=== PATIENT | male | born 1970 | race African-American/Black ===

== ENCOUNTER 2017-11-22 02:33 | Inpatient (IN) ==
--- NOTE | 2017-11-22 02:51 | ED ---
HPI General Chief complaint: Nausea/Vomiting/Diarrhea Stated complaint: Nausea/stomach pain Time Seen by Provider: 11/22/17 02:40 Source: patient Mode of arrival: ambulatory Limitations: no limitations History of Present Illness HPI Narrative: 47-year-old male arrives with abdominal pain nausea vomiting. Symptoms started after he ate dinner tonight. No diarrhea. Generalized constant severe abdominal pain reported. Patient denies fever. No similar prior episodes. At least 10 episodes of vomiting. Patient reports bowel movements about 10 hours earlier. He is uncertain if he has had flatus since. Patient has no history of abdominal obstruction. Patient has no history of cancer or hernia. No history of abdominal surgery. MD complaint: Reports nausea, vomiting and abdominal pain Onset (ago): hour(s) Description of Vomiting: food contents Description of Diarrhea: none Associated Abdominal Pain: Yes Location of pain: Reports diffuse Severity: severe Quality: Reports constant Related Data Home Medications Medication Instructions Recorded Confirmed No Known Home Medications 11/22/17 11/22/17 Allergies Allergy/AdvReac Type Severity Reaction Status Date / Time No Known Allergies Allergy Verified 11/22/17 02:38 Review of Systems ROS: all other systems reviewed are negative [facility] Medical History Medical History Patient denies medical problems (Acute) Surgical History Surgical History No history of previous surgery (Acute) Social History Social History Smoking Status: Never smoker How Often Do You Have a Drink Containing Alcohol: Never Recent Travel in [facility] within the Last 8 Weeks: No Recent Out of Country Travel within the Last 8 Weeks: No Immunization History Tetanus Immunization: Unsure Exam Narrative Exam Narrative: GENERAL: 47-year-old male mild to moderate distress secondary to pain and/or nausea SKIN: Focused skin assessment warm/dry. HEAD: Atraumatic. Normocephalic. EYES: Pupils equal and round. No scleral icterus. No injection or drainage. ENT: No nasal bleeding or discharge. Mucous membranes pink and moist. NECK: Trachea midline. No JVD. CARDIOVASCULAR: Regular rate and rhythm. No murmur appreciated. RESPIRATORY: No accessory muscle use. Clear to auscultation. Breath sounds equal bilaterally. GASTROINTESTINAL: Abdomen is distended with generalized tenderness. MUSCULOSKELETAL: No obvious deformities. No clubbing. No cyanosis. No edema. NEUROLOGICAL: Awake and alert. No obvious cranial nerve deficits. Motor grossly within normal limits. Normal speech. PSYCHIATRIC: Appropriate mood and affect; insight and judgment normal. Course Initial Documented Vital Signs Temperature 98.0 F 11/22/17 02:35 Pulse Rate 65 11/22/17 02:35 Respiratory Rate 20 11/22/17 02:35 Blood Pressure 144/75 H 11/22/17 02:35 Pulse Oximetry 97 11/22/17 02:35 Last Documented Vital Signs Temperature 98.0 F 11/22/17 02:35 Pulse Rate 62 11/22/17 03:06 Respiratory Rate 20 11/22/17 03:06 Blood Pressure 130/77 11/22/17 03:06 Pulse Oximetry 100 11/22/17 03:06 Medical Decision Making MDM Narrative Medical decision making narrative: CT reveals high-grade obstruction with massive gastric distention potentially due to mass at the pancreatic head. NG tube was placed and approximately 1 L of gastric content was collected. Patient at that point reported pain relief. The case was discussed with on- call surgeon Dr. Wellington who recommends admission with a GI consultation and a consultation to him as well. Call placed to the hospitalist service at 4:10 AM. Patient's blood pressure 4:10 AM 170/80 with a pulse of 70. d/w Dr Robles at 4:20AM. Aggregate critical care time was 65 minutes. Time to perform other separately billable procedures was not included in the critical care time. My time did not include minutes spent treating any other patients simultaneously or on activities that did not directly contribute to the patient's treatment. The services I provided to this patient were to treat and/or prevent clinically significant deterioration that could result in: Septic shock, perforation of the stomach or bowel, ischemia I provided critical care services requiring my management, as noted below: Chart data review, documentation time, medication orders and management, vital sign assessments/reviewing monitor data, ordering and reviewing lab tests, ordering and interpreting/reviewing x-rays and diagnostic studies, care of the patient and discussion of the patient with the admitting physicians. Medical Screen Exam Complete: Yes Emergency Medical Condition: Yes Differential Diagnosis Differential Diagnosis: Constipation, Gastritis, Acute Cholecystitis, Biliary Colic, Pancreatitis, AKERS, Hepatitis, Bowel Obstruction, Cystitis, Mesenteric Ischemia, AAA, Appendicitis, Renal Stone/Hydronephrosis, GERD, perforated viscous Medical Records Constipation, Gastritis, Acute Cholecystitis, Biliary Colic, Pancreatitis, AKERS , Hepatitis, Bowel Obstruction, Cystitis, Mesenteric Ischemia, AAA, Appendicitis , Renal Stone/Hydronephrosis, GERD, perforated viscous Lab Data Lab results reviewed: Yes I reviewed the patient's lab results. Result diagrams: 11/22/17 03:03 11/22/17 03:03 Lab Results 11/22/17 11/22/17 11/22/17 Range/Units 03:03 03:03 03:03 WBC 12.1 H (4.0-11.0) th/mm3 RBC 5.16 (4.50-5.90) mil/mm3 Hgb 15.7 (13.0-17.0) gm/dL Hct 48.1 (39.0-51.0) % MCV 93.2 (80.0-100.0) fL MCH 30.4 (27.0-34.0) pg MCHC 32.6 (32.0-36.0) % RDW 14.3 (11.6-17.2) % Plt Count 181 (150-450) th/mm3 MPV 9.2 (7.0-11.0) fL Neut % (Auto) 92.0 H (16.0-70.0) % Lymph % (Auto) 3.5 L (9.0-44.0) % Sevier % (Auto) 4.3 (0.0-8.0) % Eos % (Auto) 0.0 (0.0-4.0) % Baso % (Auto) 0.2 (0.0-2.0) % Neut # (Auto) 11.1 H (1.8-7.7) th/mm3 Lymph # (Auto) 0.4 L (1.0-4.8) th/mm3 Sevier # (Auto) 0.5 (0.0-0.9) th/mm3 Eos # (Auto) 0.0 (0.0-0.4) th/mm3 Baso # (Auto) 0.0 (0.0-0.2) th/mm3 WBC Differential . Differential Comment Auto diff final Sodium 141 (136-145) meq/L Potassium 3.7 (3.5-5.1) meq/L Chloride 103 (98-107) meq/L Carbon Dioxide 23.4 (21.0-32.0) meq/L Anion Gap 15 (5-15) meq/L BUN 19 H (7-18) mg/dL Creatinine 1.61 H (0.60-1.30) mg/dL Random Glucose 216 H (74-106) mg/dL Lactic Acid 5.7 H* (0.4-2.0) mmol/L Calcium 10.0 (8.5-10.1) mg/dL Total Bilirubin 2.8 H (0.2-1.0) mg/dL AST 22 (15-37) U/L ALT 34 (12-78) U/L Alkaline Phosphatase 63 (45-117) U/L Total Protein 8.8 H (6.4-8.2) g/dL Albumin 5.4 H (3.4-5.0) g/dL Lipase 3687 H (73-393) U/L Blood Type Blood Type Recheck Antibody Screen 11/22/17 Range/Units 03:51 WBC (4.0-11.0) th/mm3 RBC (4.50-5.90) mil/mm3 Hgb (13.0-17.0) gm/dL Hct (39.0-51.0) % MCV (80.0-100.0) fL MCH (27.0-34.0) pg MCHC (32.0-36.0) % RDW (11.6-17.2) % Plt Count (150-450) th/mm3 MPV (7.0-11.0) fL Neut % (Auto) (16.0-70.0) % Lymph % (Auto) (9.0-44.0) % Sevier % (Auto) (0.0-8.0) % Eos % (Auto) (0.0-4.0) % Baso % (Auto) (0.0-2.0) % Neut # (Auto) (1.8-7.7) th/mm3 Lymph # (Auto) (1.0-4.8) th/mm3 Sevier # (Auto) (0.0-0.9) th/mm3 Eos # (Auto) (0.0-0.4) th/mm3 Baso # (Auto) (0.0-0.2) th/mm3 WBC Differential Differential Comment Sodium (136-145) meq/L Potassium (3.5-5.1) meq/L Chloride (98-107) meq/L Carbon Dioxide (21.0-32.0) meq/L Anion Gap (5-15) meq/L BUN (7-18) mg/dL Creatinine (0.60-1.30) mg/dL Random Glucose (74-106) mg/dL Lactic Acid (0.4-2.0) mmol/L Calcium (8.5-10.1) mg/dL Total Bilirubin (0.2-1.0) mg/dL AST (15-37) U/L ALT (12-78) U/L Alkaline Phosphatase (45-117) U/L Total Protein (6.4-8.2) g/dL Albumin (3.4-5.0) g/dL Lipase (73-393) U/L Blood Type A Positive Blood Type Recheck Antibody Screen Negative Lactic acid 5.7 The lipase is 3687 Total bilirubin is 2.8 Imaging Data Attestation: I personally reviewed and interpreted this imaging study as follows : (Massive volume of fluid inside the stomach) Radiologist's impression: Abdomen/Pelvis CT 11/22/17 02:53 CONCLUSION: 1. High-grade obstruction at the level of the third portion of the duodenum with massive gastric distention. There is equivocal mass in the pancreatic head. Endoscopy is recommended to evaluate the stricture. Chest X-Ray 11/22/17 02:53 CONCLUSION: No acute cardiopulmonary disease. Discharge Plan Discharge Disposition Patient Disposition: 30 Still Patient Physicians Team ED Provider: Boni Bucio Primary Care Provider: Primary Care Nicole Hsieh Attending Provider: Sandra Robles Status ED Status: Admitted Patient
[2017-11-22] MEDS ORDERED: Aluminum/Magnesium/Simethacone Susp 30 ML UDC PO ONE (02:53)
[2017-11-22] MEDS ORDERED: Sod Chloride 0.9% Inj 1,000 ML IV.SIG ONE (02:53)
[2017-11-22] MEDS ORDERED: HYDROmorphone PF Inj 2 MG/ML Vial IV.PUSH ONE (02:53)
[2017-11-22 03:11] LABS: Baso % (Auto) 0.2 % (0.0-2.0); Hematocrit 48.1 % (39.0-51.0); Hemoglobin 15.7 gm/dL (13.0-17.0); Lymph # (Auto) 0.4 th/mm3 (1.0-4.8); Lymph % (Auto) 3.5 % (9.0-44.0); Mean Corpuscular HGB Conc 32.6 % (32.0-36.0); Mean Corpuscular Hemoglobin 30.4 pg (27.0-34.0); Mean Corpuscular Volume 93.2 fL (80.0-100.0); Mean Platelet Volume 9.2 fL (7.0-11.0); Mono # (Auto) 0.5 th/mm3 (0.0-0.9); Mono % (Auto) 4.3 % (0.0-8.0); Neut # (Auto) 11.1 th/mm3 (1.8-7.7); Platelet Count 181 th/mm3 (150-450); Red Blood Count 5.16 mil/mm3 (4.50-5.90); Red Cell Distribution Width 14.3 % (11.6-17.2); White Blood Count 12.1 th/mm3 (4.0-11.0)
[2017-11-22 03:34] LABS: Alanine Aminotransferase 34 U/L (12-78); Albumin 5.4 g/dL (3.4-5.0); Anion Gap 15 meq/L (5-15); Aspartate Aminotransferase 22 U/L (15-37); Blood Urea Nitrogen 19 mg/dL (7-18); Carbon Dioxide 23.4 meq/L (21.0-32.0); Chloride 103 meq/L (98-107); Glucose,Random 216 mg/dL (74-106); Potassium 3.7 meq/L (3.5-5.1); Sodium 141 meq/L (136-145)
[2017-11-22 03:36] LABS: Alkaline Phosphatase 63 U/L (45-117); Lipase 3687 U/L (73-393); Total Protein 8.8 g/dL (6.4-8.2)
--- NOTE | 2017-11-22 03:53 | CT ---
EXAM DATE: 11/22/2017 2:58 AM EDT AGE/SEX: 47 years / Male INDICATIONS: Diffuse abdominal pain and vomiting. CLINICAL DATA: This is the patient's initial encounter. Patient reports that signs and symptoms have been present for 2 days and indicates a pain score of 10/10. MEDICAL/SURGICAL HISTORY: None. None. ORAL CONTRAST: No oral contrast ingested. RADIATION DOSE: 7.31 CTDI (mGy) COMPARISON: No prior exams available for comparison. TECHNIQUE: Multiple contiguous axial images were obtained through the abdomen and pelvis following b olus infusion of 95 ml Omnipaque 350 (iohexol) nonionic water-soluble contrast as a single exam dos e. No oral contrast ingested. Using automated exposure control and adjustment of the mA and/or kV ac cording to patient size, radiation dose was kept as low as reasonably achievable to obtain optimal di agnostic quality images. DICOM format image data is available electronically for review and comparis on. FINDINGS: Examination of the lung bases demonstrates no abnormality. No pleural fluid is identified. No pulmona ry nodules are present. The liver and spleen are normal in size and no focal defects are identified. There is severe gastric distention to the level of the third portion of the duodenum where there is decompressed distal duodenum and small bowel. There is a possible mass in the pancreas as etiology. B enign or malignant stricture would be considered and endoscopy is recommended to further evaluate thi s. The adrenal glands and kidneys appear normal bilaterally. No hydronephrosis or mass lesions are id entified. Examination of the pelvis demonstrates no evidence of free fluid or pelvic mass. No abnormally enlarg ed inguinal or retroperitoneal lymph nodes are present. The bladder is unremarkable. CONCLUSION: 1. High-grade obstruction at the level of the third portion of the duodenum with massive gastric dis tention. There is equivocal mass in the pancreatic head. Endoscopy is recommended to evaluate the str icture. Electronically signed by: Nick Nettles MD 11/22/2017 3:52 AM EDT
[2017-11-22] MEDS ORDERED: Sod Chloride 0.9% Inj 1,000 ML IV.SIG SCH (04:15)
--- NOTE | 2017-11-22 04:18 | XR ---
EXAM DATE: 11/22/2017 2:53 AM EDT AGE/SEX: 47 years / Male INDICATIONS: Chest discomfort, nausea, vomiting for 2 hours CLINICAL DATA: This is the patient's initial encounter. Patient reports that signs and symptoms have been present for 1 day and indicates a pain score of 0/10. MEDICAL/SURGICAL HISTORY: None. None. COMPARISON: No prior exams available for comparison. FINDINGS: A single AP view of the chest demonstrates the lungs to be symmetrically aerated without evidence of mass, infiltrate or effusion. The cardiomediastinal contours are unremarkable. Osseous structures a re intact. CONCLUSION: No acute cardiopulmonary disease. Electronically signed by: Nick Nettles MD 11/22/2017 4:17 AM EDT
[2017-11-22] MEDS ORDERED: Morphine Inj 4 MG/ML Vial IV.PUSH PRN (04:31)
[2017-11-22] MEDS ORDERED: Sodium Chloride 0.9% 2 ML Flush PRN IV.FLUSH (04:48)
[2017-11-22] MEDS: Sod Chloride 0.9% Inj 1,000 ML IV.CONT SCH ×2 (05:45→15:55)
--- NOTE | 2017-11-22 06:48 | P.CONGS ---
[facility] Gen Surgery Consult Note Consult date: 11/22/17 Reason for consult: abdominal pain (Severe gastric distention, pancreatitis) Narrative: Patient is a 47-year-old -[place] gentleman who apparently is healthy has no chronic medical problems as had no prior surgeries takes no medications has never smoked or drank or use drugs. He went to [employer]. He had salad, breadsticks, and pasta and went home and developed severe abdominal distention pain nausea and emesis. Went to the emergency department where CT scan of the abdomen pelvis demonstrates severe gastric distention with apparent obstruction or narrowing of the duodenum the transition between the third and fourth portion of the duodenum. Laboratory values demonstrate mildly elevated white count with a left shift, elevated lipase over 3600, and an elevated lactic acid. He additionally exhibited signs of dehydration with an elevated BUN and creatinine. Patient had an NG tube placed in the ER had over a liter of yellow fluid removed but then the patient was uncomfortable and asked that the NG tube be removed. He has since continued to have intermittent nausea with emesis of food that he had eaten last night. He has had normal bowel function. He is voided twice since this is started. He denies chronic recent easy fatigue, fevers chills, weight loss unexplained. 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 He is accompanied by his mother at the bedside who says he is a very straight laced and who avoids trouble. He is now willing to have an NG tube replaced. Review of Systems All other systems reviewed negative except as stated in [facility] PMF[facility] - History History Provided By: Patient - Medical / Surgical Hx Neg / Unobtainable Medical Problems Denied: Yes Surgical History: No Previous Surgery - Medical History Medical History: Medical History (Last Updated 11/22/17 @ 02:37 by Rosario Andino) Patient denies medical problems - Surgical History Surgical History: Surgical History (Last Updated 11/22/17 @ 02:37 by Rosario Andino) No history of previous surgery - Social History I have reviewed the patient's Social History: Yes - Tobacco History Second Hand Smoke Exposure: No Tobacco Use In Past 30 Days: No Smoking Status: Never smoker - Alcohol History How Often Do You Have a Drink Containing Alcohol: Never - Substance Use History Substance History: No History of Abuse - Travel History Recent Travel in the [facility] Within the Last 8 Weeks: No Recent Travel Out of the Country Within the Last 8 Weeks: No - Immunization History Tetanus Immunization: Never Vaccinated Hx Influenza Vaccine This Season: No Medications and Allergies Active Medications: Active Medications Sodium Chloride (Ns Inj) 1,000 mls @ 0 mls/hr IV.SIG BOLUS COLE Last Infusion: 11/22/17 05:15 Dose: Infused Sodium Chloride (Ns Inj) 1,000 mls @ 100 mls/hr IV.CONT .Q10H COLE Last Admin: 11/22/17 05:45 Dose: 100 mls/hr Morphine Sulfate (Morphine Inj) 4 mg IV.PUSH Q4H PRN PRN Reason: pain 6-10 Ondansetron HCl (Zofran Inj) 4 mg IV.PUSH Q6H PRN PRN Reason: NAUSEA OR VOMITING Sodium Chloride (Ns Flush) 2 ml IV.FLUSH BID COLE Sodium Chloride (Ns Flush) 2 ml IV.FLUSH PRN PRN PRN Reason: FLUSH AFTER USING IV ACCESS Allergies Allergy/AdvReac Type Severity Reaction Status Date / Time No Known Allergies Allergy Verified 11/22/17 02:38 Home Medications Medication Instructions Recorded Confirmed Type No Known Home Medications 11/22/17 11/22/17 History Exam Vital signs: Vital Signs 11/22/17 02:35 11/22/17 03:06 11/22/17 03:33 Temperature 98.0 F Pulse Rate 65 62 Respiratory Rate 20 20 16 Blood Pressure 144/75 H 130/77 Pulse Oximetry 97 100 11/22/17 06:23 11/22/17 06:27 Temperature 97.3 F L Pulse Rate 56 L 56 L Respiratory Rate 18 Blood Pressure 144/91 H Pulse Oximetry 100 Intake & Output 11/21/17 11/21/17 11/22/17 06:59 18:59 06:59 Intake Total 1999 Output Total 700 / 700 Balance 1300 / 1300 Weight 77.5 kg Intake: IV 1999 NS Inj 1,000 ML @ Wide Open IV. 1999 SIG BOLUS COLE Rx#:[id number] Output: Gastric Drainage 700 / 700 Right Nare Nasogastric Tube 700 / 700 Other: Weight On Admission 84.224 kg Narrative: Patient awake alert oriented and cooperative. He appears mildly uncomfortable due to abdominal distention and nausea. His mother it is his bedside. HEENT demonstrates a normocephalic atraumatic head. His pupils are 2 round and sluggishly reactive to light. His sclera are anicteric. His oropharynx is clear without mucosal lesions. He has good dentition. His neck is supple without adenopathy. He has no jugular venous distention. He has no carotid bruits. His trachea is midline. There is no palpable thyromegaly. His lung sounds are clear to auscultation. His heart sounds are regular without obvious murmur rub or gallop. His abdomen is firm and distended. It is mildly tender. There is no rebound or guarding. There are no scars or obvious hernias. It is quiet. His extremities are thin he has equal radial and dorsalis pedis pulses. There is no cyanosis clubbing or edema. Genital rectal exams were not repeated. Psychologically he is appropriate. He is not depressed. He is not anxious. Results - Labs 11/22/17 03:03 11/22/17 03:03 Laboratory Results - last 24 hr 11/22/17 11/22/17 11/22/17 03:03 03:03 03:03 WBC 12.1 H RBC 5.16 Hgb 15.7 Hct 48.1 MCV 93.2 MCH 30.4 MCHC 32.6 RDW 14.3 Plt Count 181 MPV 9.2 Neut % (Auto) 92.0 H Lymph % (Auto) 3.5 L Long % (Auto) 4.3 Eos % (Auto) 0.0 Baso % (Auto) 0.2 Neut # (Auto) 11.1 H Lymph # (Auto) 0.4 L Long # (Auto) 0.5 Eos # (Auto) 0.0 Baso # (Auto) 0.0 WBC Differential . Differential Comment Auto diff final Sodium 141 Potassium 3.7 Chloride 103 Carbon Dioxide 23.4 Anion Gap 15 BUN 19 H Creatinine 1.61 H Random Glucose 216 H Lactic Acid 5.7 H* Calcium 10.0 Total Bilirubin 2.8 H AST 22 ALT 34 Alkaline Phosphatase 63 Total Protein 8.8 H Albumin 5.4 H Lipase 3687 H CA 19-9 Antigen Blood Type Blood Type Recheck Antibody Screen 11/22/17 11/22/17 11/22/17 03:51 05:02 05:02 WBC RBC Hgb Hct MCV MCH MCHC RDW Plt Count MPV Neut % (Auto) Lymph % (Auto) Long % (Auto) Eos % (Auto) Baso % (Auto) Neut # (Auto) Lymph # (Auto) Long # (Auto) Eos # (Auto) Baso # (Auto) WBC Differential Differential Comment Sodium Potassium Chloride Carbon Dioxide Anion Gap BUN Creatinine Random Glucose Lactic Acid 4.0 H Calcium Total Bilirubin AST ALT Alkaline Phosphatase Total Protein Albumin Lipase CA 19-9 Antigen 5.0 Blood Type A Positive Blood Type Recheck Antibody Screen Negative - Imaging Imaging: ITS Impressions Abdomen/Pelvis CT 11/22/17 02:53 CONCLUSION: 1. High-grade obstruction at the level of the third portion of the duodenum with massive gastric distention. There is equivocal mass in the pancreatic head. Endoscopy is recommended to evaluate the stricture. Chest X-Ray 11/22/17 02:53 CONCLUSION: No acute cardiopulmonary disease. Assessment and Plan - Plan Assessment is a 47-year-old -[place] gentleman with no chronic medical problems, no prior abdominal surgery with acute onset severe abdominal distention nausea and vomiting following overeating at the [employer]. CT demonstrates massive gastric distention with apparent narrowing in the transition between the third and fourth portion of the duodenum. Etiology is unclear at this time. There is some question whether there is pancreatic mass or inflammation and and fact laboratory values demonstrated an elevated lipase consistent with pancreatitis. He again is not an alcoholic, he has no known history of gallbladder disease. recommendations been made for placement of the nasogastric tube to low intermittent wall suction to help decrease the gastric distention. Gastroenterology has been consulted to evaluate the patient and consider upper endoscopy. At some point the patient may benefit from ultrasound of the gallbladder to evaluate for gallstones. Pancreatitis with focal relative functional obstruction, SMA syndrome, gallstone pancreatitis, primary tumorous obstruction all are in the differential diagnosis. The patient would not benefit at this time for from acute general surgical intervention. In the interim continue hydration and treatment of symptoms is indicated. Discussed Condition With: Patient and mother and bedside RN
[2017-11-22] MEDS ORDERED: Benzocaine 20% Oral Spray 60 ML Can OROPHARYNG ONE ×2 (10:00→11:00)
--- NOTE | 2017-11-22 10:15 | P.CONGI ---
History of Present Illness Consult date: 11/22/17 Consult reason: Pancreatic/duodenal mass Chief complaint: SBO; Pancreatitis History of Present Illness: Mr. Marshall is a 47-year-old male patient who presented to the emergency room this morning with complaint of severe generalized abdominal pain which he describes as cramping. associated with nausea and emesis. Patient states he has no medical history, no surgical history, and no known drug allergies. Our service has been consulted to evaluate possible pancreatic/duodenal mass. Patient states onset of symptoms started last night after he ate a large meal at the [employer]. Patient denies ever having pain like this before and states he had at least 10-15 episodes of vomiting. Patient denies fever, diarrhea, constipation. States pain is constant and there are no alleviating or aggravating factors.He reports having a soft brown BM of "normal " quantity 2 days ago and none since noted. States he normally has 1-2 soft brown bowel movements daily. Patient unsure if he has had been able to pass gas over the last 24 hours. Reports he was feeling well without any symptoms of abdominal pain nausea or vomiting prior to today. Patient has no history of abdominal obstruction or abdominal surgical procedures. Patient denies any blood in emesis or noted bleeding in stool. Denies ever having had EGD or colonoscopy in the past. Denies any use of NSAIDs or blood thinners. Denies any known family history for any gastrointestinal disorders. Denies use of tobacco or alcohol. Upon arrival to emergency room patient had NG placed with documented drainage of over a liter of yellow fluid. Patient asked for NG to be removed due to discomfort but is now willing to have same replaced. <Karen Oliveira - Last Filed: 11/22/17 11:02> Review of Systems All other systems reviewed negative except as stated in HPI <Karen Oliveira - Last Filed: 11/22/17 11:02> PMFSH - History History Provided By: Patient - Medical / Surgical Hx Neg / Unobtainable Medical Problems Denied: Yes - Medical History Medical History: Medical History (Last Updated 11/22/17 @ 02:37 by Rosario Andino) Patient denies medical problems - Surgical History Surgical History: Surgical History (Last Updated 11/22/17 @ 02:37 by Rosario Andino) No history of previous surgery - Tobacco History Second Hand Smoke Exposure: No Tobacco Use In Past 30 Days: No Smoking Status: Never smoker - Alcohol History How Often Do You Have a Drink Containing Alcohol: Never - Substance Use History Substance History: No History of Abuse - Travel History Recent Travel in the [place] Within the Last 8 Weeks: No Recent Travel Out of the Country Within the Last 8 Weeks: No - Immunization History Tetanus Immunization: Never Vaccinated Hx Influenza Vaccine This Season: No <Karen Oliveira - Last Filed: 11/22/17 11:02> - Medical History Medical History: Medical History (Last Updated 11/22/17 @ 02:37 by Rosario Andino) Patient denies medical problems - Surgical History Surgical History: Surgical History (Last Updated 11/22/17 @ 02:37 by Rosario Andino) No history of previous surgery <Maddi King - Last Filed: 11/22/17 14:51> Medications and Allergies Active Medications: Active Medications Benzocaine (Hurricaine 20% Oral Freedom) 1 spray OROPHARYNG ONCE ONE Stop: 11/22/17 10:01 Sodium Chloride (Ns Inj) 1,000 mls @ 100 mls/hr IV.CONT .Q10H [facility] Last Admin: 11/22/17 05:45 Dose: 100 mls/hr Morphine Sulfate (Morphine Inj) 4 mg IV.PUSH Q4H PRN PRN Reason: pain 6-10 Ondansetron HCl (Zofran Inj) 4 mg IV.PUSH Q6H PRN PRN Reason: NAUSEA OR VOMITING Sodium Chloride (Ns Flush) 2 ml IV.FLUSH BID COLE Sodium Chloride (Ns Flush) 2 ml IV.FLUSH PRN PRN PRN Reason: FLUSH AFTER USING IV ACCESS <Karen Oliveira - Last Filed: 11/22/17 11:02> Active Medications: Active Medications Sodium Chloride (Ns Inj) 1,000 mls @ 100 mls/hr IV.CONT .Q10H [facility] Last Admin: 11/22/17 05:45 Dose: 100 mls/hr Morphine Sulfate (Morphine Inj) 4 mg IV.PUSH Q4H PRN PRN Reason: pain 6-10 Ondansetron HCl (Zofran Inj) 4 mg IV.PUSH Q6H PRN PRN Reason: NAUSEA OR VOMITING Sodium Chloride (Ns Flush) 2 ml IV.FLUSH BID COLE Sodium Chloride (Ns Flush) 2 ml IV.FLUSH PRN PRN PRN Reason: FLUSH AFTER USING IV ACCESS <Maddi King - Last Filed: 11/22/17 14:51> Allergies Allergy/AdvReac Type Severity Reaction Status Date / Time No Known Allergies Allergy Verified 11/22/17 02:38 Home Medications Medication Instructions Recorded Confirmed Type No Known Home Medications 11/22/17 11/22/17 History Exam Vital signs: Vital Signs 11/22/17 02:35 11/22/17 03:06 11/22/17 03:33 Temperature 98.0 F Pulse Rate 65 62 Respiratory Rate 20 20 16 Blood Pressure 144/75 H 130/77 Pulse Oximetry 97 100 11/22/17 06:23 11/22/17 06:27 11/22/17 08:00 Temperature 97.3 F L Pulse Rate 56 L 56 L 62 Respiratory Rate 18 Blood Pressure 144/91 H 133/80 Pulse Oximetry 100 99 Intake & Output 11/21/17 11/22/17 11/22/17 18:59 06:59 18:59 Intake Total 1999 Output Total 700 / 700 Balance 1300 / 1300 Weight 77.5 kg Intake: IV 1999 NS Inj 1,000 ML @ Wide Open IV. 1999 SIG BOLUS [facility] Rx#:[id number] Output: Gastric Drainage 700 / 700 Right Nare Nasogastric Tube 700 / 700 Other: Weight On Admission 84.224 kg - Constitutional moderate distress - Routine HEENT Exam Head: Present: normocephalic - Routine Respiratory Exam Present: CTA bilaterally. Absent: accessory muscle use - Routine Cardiovascular Exam Present: RRR - Routine Abdominal Exam Present: distended, firm, rigid - Routine Extremities Exam Present: full ROM. Absent: edema - Routine Skin Exam Present: dry, warm. Absent: jaundice - Routine Neurological Exam Present: alert, oriented X3 <Oliveira,Karen - Last Filed: 11/22/17 11:02> Vital signs: Vital Signs 11/22/17 02:35 11/22/17 03:06 11/22/17 03:33 Temperature 98.0 F Pulse Rate 65 62 Respiratory Rate 20 20 16 Blood Pressure 144/75 H 130/77 Pulse Oximetry 97 100 11/22/17 06:23 11/22/17 06:27 11/22/17 08:00 Temperature 97.3 F L Pulse Rate 56 L 56 L 62 Respiratory Rate 18 Blood Pressure 144/91 H 133/80 Pulse Oximetry 100 99 11/22/17 10:00 11/22/17 12:00 Temperature 97.5 F L Pulse Rate 74 65 Respiratory Rate 18 Blood Pressure 137/77 Pulse Oximetry 100 Intake & Output 11/21/17 11/22/17 11/22/17 18:59 06:59 18:59 Intake Total 1999 Output Total 700 / 700 Balance 1300 / 1300 Weight 77.5 kg Intake: IV 1999 NS Inj 1,000 ML @ Wide Open IV. 1999 SIG BOLUS [facility] Rx#:[id number] Output: Gastric Drainage 700 / 700 Right Nare Nasogastric Tube 700 / 700 Other: Weight On Admission 84.224 kg <Maddi King - Last Filed: 11/22/17 14:51> Results - Labs CBC & Chem 7: 11/22/17 03:03 11/22/17 03:03 Labs: Laboratory Results - last 24 hr 11/22/17 11/22/17 11/22/17 03:03 03:03 03:03 WBC 12.1 H RBC 5.16 Hgb 15.7 Hct 48.1 MCV 93.2 MCH 30.4 MCHC 32.6 RDW 14.3 Plt Count 181 MPV 9.2 Neut % (Auto) 92.0 H Lymph % (Auto) 3.5 L [place] % (Auto) 4.3 Eos % (Auto) 0.0 Baso % (Auto) 0.2 Neut # (Auto) 11.1 H Lymph # (Auto) 0.4 L [place] # (Auto) 0.5 Eos # (Auto) 0.0 Baso # (Auto) 0.0 WBC Differential . Differential Comment Auto diff final Sodium 141 Potassium 3.7 Chloride 103 Carbon Dioxide 23.4 Anion Gap 15 BUN 19 H Creatinine 1.61 H Random Glucose 216 H Lactic Acid 5.7 H* Calcium 10.0 Total Bilirubin 2.8 H AST 22 ALT 34 Alkaline Phosphatase 63 Total Protein 8.8 H Albumin 5.4 H Lipase 3687 H CA 19-9 Antigen Blood Type Blood Type Recheck Antibody Screen 11/22/17 11/22/17 11/22/17 03:51 05:02 05:02 WBC RBC Hgb Hct MCV MCH MCHC RDW Plt Count MPV Neut % (Auto) Lymph % (Auto) [place] % (Auto) Eos % (Auto) Baso % (Auto) Neut # (Auto) Lymph # (Auto) [place] # (Auto) Eos # (Auto) Baso # (Auto) WBC Differential Differential Comment Sodium Potassium Chloride Carbon Dioxide Anion Gap BUN Creatinine Random Glucose Lactic Acid 4.0 H Calcium Total Bilirubin AST ALT Alkaline Phosphatase Total Protein Albumin Lipase CA 19-9 Antigen 5.0 Blood Type A Positive Blood Type Recheck Antibody Screen Negative 11/22/17 09:00 WBC RBC Hgb Hct MCV MCH MCHC RDW Plt Count MPV Neut % (Auto) Lymph % (Auto) [place] % (Auto) Eos % (Auto) Baso % (Auto) Neut # (Auto) Lymph # (Auto) [place] # (Auto) Eos # (Auto) Baso # (Auto) WBC Differential Differential Comment Sodium Potassium Chloride Carbon Dioxide Anion Gap BUN Creatinine Random Glucose Lactic Acid 4.6 H* Calcium Total Bilirubin AST ALT Alkaline Phosphatase Total Protein Albumin Lipase CA 19-9 Antigen Blood Type Blood Type Recheck Antibody Screen - Imaging Impressions Abdomen/Pelvis CT 11/22/17 02:53 CONCLUSION: 1. High-grade obstruction at the level of the third portion of the duodenum with massive gastric distention. There is equivocal mass in the pancreatic head. Endoscopy is recommended to evaluate the stricture. Chest X-Ray 11/22/17 02:53 CONCLUSION: No acute cardiopulmonary disease. <Karen Oliveira - Last Filed: 11/22/17 11:02> - Labs CBC & Chem 7: 11/22/17 03:03 11/22/17 03:03 Labs: Laboratory Results - last 24 hr 11/22/17 11/22/17 11/22/17 03:03 03:03 03:03 WBC 12.1 H RBC 5.16 Hgb 15.7 Hct 48.1 MCV 93.2 MCH 30.4 MCHC 32.6 RDW 14.3 Plt Count 181 MPV 9.2 Neut % (Auto) 92.0 H Lymph % (Auto) 3.5 L [place] % (Auto) 4.3 Eos % (Auto) 0.0 Baso % (Auto) 0.2 Neut # (Auto) 11.1 H Lymph # (Auto) 0.4 L [place] # (Auto) 0.5 Eos # (Auto) 0.0 Baso # (Auto) 0.0 WBC Differential . Differential Comment Auto diff final Sodium 141 Potassium 3.7 Chloride 103 Carbon Dioxide 23.4 Anion Gap 15 BUN 19 H Creatinine 1.61 H Random Glucose 216 H Lactic Acid 5.7 H* Calcium 10.0 Total Bilirubin 2.8 H AST 22 ALT 34 Alkaline Phosphatase 63 Total Protein 8.8 H Albumin 5.4 H Triglycerides Cholesterol LDL Cholesterol, Calc HDL Cholesterol Cholesterol/HDL Ratio Lipase 3687 H CA 19-9 Antigen Blood Type Blood Type Recheck Antibody Screen 11/22/17 11/22/17 11/22/17 03:03 03:51 05:02 WBC RBC Hgb Hct MCV MCH MCHC RDW Plt Count MPV Neut % (Auto) Lymph % (Auto) Rose[place] % (Auto) Eos % (Auto) Baso % (Auto) Neut # (Auto) Lymph # (Auto) [place] # (Auto) Eos # (Auto) Baso # (Auto) WBC Differential Differential Comment Sodium Potassium Chloride Carbon Dioxide Anion Gap BUN Creatinine Random Glucose Lactic Acid Calcium Total Bilirubin AST ALT Alkaline Phosphatase Total Protein Albumin Triglycerides 46 Cholesterol 210 H LDL Cholesterol, Calc 97 HDL Cholesterol 103.9 H Cholesterol/HDL Ratio 2.02 Lipase CA 19-9 Antigen 5.0 Blood Type A Positive Blood Type Recheck Antibody Screen Negative 11/22/17 11/22/17 05:02 09:00 WBC RBC Hgb Hct MCV MCH MCHC RDW Plt Count MPV Neut % (Auto) Lymph % (Auto) Rose[place] % (Auto) Eos % (Auto) Baso % (Auto) Neut # (Auto) Lymph # (Auto) [place] # (Auto) Eos # (Auto) Baso # (Auto) WBC Differential Differential Comment Sodium Potassium Chloride Carbon Dioxide Anion Gap BUN Creatinine Random Glucose Lactic Acid 4.0 H 4.6 H* Calcium Total Bilirubin AST ALT Alkaline Phosphatase Total Protein Albumin Triglycerides Cholesterol LDL Cholesterol, Calc HDL Cholesterol Cholesterol/HDL Ratio Lipase CA 19-9 Antigen Blood Type Blood Type Recheck Antibody Screen - Imaging Impressions Abdomen/Pelvis CT 11/22/17 02:53 CONCLUSION: 1. High-grade obstruction at the level of the third portion of the duodenum with massive gastric distention. There is equivocal mass in the pancreatic head. Endoscopy is recommended to evaluate the stricture. Chest X-Ray 11/22/17 02:53 CONCLUSION: No acute cardiopulmonary disease. <Maddi King - Last Filed: 11/22/17 14:51> Assessment and Plan (1) Bowel obstruction Status: Acute Code(s): K56.609 - Unspecified intestinal obstruction, unspecified as to partial versus complete obstruction - Plan Mr. Marshall is a 47-year-old male patient who presented to the emergency room this morning with complaint of severe generalized abdominal pain which he describes as cramping. associated with nausea and emesis. Patient states he has no medical history, no surgical history, and no known drug allergies. Our service has been consulted to evaluate possible pancreatic/duodenal mass. Patient states onset of symptoms started last night after he ate a large meal at the [employer]. Patient denies ever having pain like this before and states he had at least 10-15 episodes of vomiting. Patient denies fever, diarrhea, constipation. States pain is constant and there are no alleviating or aggravating factors.He reports having a soft brown BM of "normal " quantity 2 days ago and none since noted. States he normally has 1-2 soft brown bowel movements daily. Patient unsure if he has had been able to pass gas over the last 24 hours. Reports he was feeling well without any symptoms of abdominal pain nausea or vomiting prior to today. Patient has no history of abdominal obstruction or abdominal surgical procedures. Patient denies any blood in emesis or noted bleeding in stool. Denies ever having had EGD or colonoscopy in the past. Denies any use of NSAIDs or blood thinners. Denies any known family history for any gastrointestinal disorders. Denies use of tobacco or alcohol. Upon arrival to emergency room patient had NG placed with documented drainage of over a liter of yellow fluid. Patient asked for NG to be removed due to discomfort but is now willing to have same replaced. Pancreatic/duodenal mass/obstruction CT abdomen and pelvis done on admission revealed the following findings : Examination of the lung bases demonstrates no abnormality. No pleural fluid is identified. No pulmonary nodules are present. The liver and spleen are normal in size and no focal defects are identified. There is severe gastric distention to the level of the third portion of the duodenum where there is decompressed distal duodenum and small bowel. There is a possible mass in the pancreas as etiology. Benign or malignant stricture would be considered and endoscopy is recommended to further evaluate this. The adrenal glands and kidneys appear normal bilaterally. No hydronephrosis or mass lesions are identified. Examination of the pelvis demonstrates no evidence of free fluid or pelvic mass. No abnormally enlarged inguinal or retroperitoneal lymph nodes are present. The bladder is unremarkable. High-grade obstruction at the level of the third portion of the duodenum with massive gastric distention. There is equivocal mass in the pancreatic head. Endoscopy is recommended to evaluate the stricture. WBC count 12.1 hemoglobin 15.7 hematocrit 48.1 total bilirubin 2.8 AST 22 ALT 34 alk phos 63 lipase 3687 CA 199 antigen 5.0. 11/22/2017-NG tube placed, immediate return of estimated 700-800 cc of bile colored drainage. Patient reporting much less abdominal discomfort. Plan -N.p.o. -NG tube to low intermittent wall suction -May consider endoscopy -Antiemetics and analgesics as per attending -Supportive care -Further recommendations to follow based on patient status and findings This patient has been seen by myself and by 2 and this note is written on her behalf - Attending Attestation <Karen Oliveira - Last Filed: 11/22/17 11:02> (1) Bowel obstruction Status: Acute Code(s): K56.609 - Unspecified intestinal obstruction, unspecified as to partial versus complete obstruction - Attending Attestation seen,examined agree with above egd in am -need empty stomach for good exam poor historian mother at bedside trying to take him home to settle some family dispute advised both of them that he cannot go home for now <Maddi King - Last Filed: 11/22/17 14:51>
--- NOTE | 2017-11-22 11:12 | P.HPIM ---
History of Present Illness Service: [facility] Primary Care Physician: No Primary Care Physician Chief Complaint: Abdominal pain History of Present Illness: 47 Y/O male with no medical history who presented to the emergency room with complaint of generalized abdominal pain, nausea and vomiting. Patient reports he was in his normal state of health until yesterday when he started to experience severe, cramping abdominal pain. He thought this was related to overeating at [email or web address]. Workup in the emergency room revealed elevated lipase, high grade obstruction at the duodenum and severe gastric distention. There is also reports of an equivocal mass in the pancreatic head. NGT was placed. On my evaluation, the patient continues to have high output from NGT draining yellow fluid. He remains uncomfortable with a lot of pain. He reports he had a normal bowel movement 2 days ago. Inpatient Certification: I certify that the inpatient services were ordered in accordance with Medicare regulations governing the order. This includes certification that hospital inpatient services are reasonable and necessary and in the case of services not specified as inpatient-only under 42 CFR 419.22(n), that they are appropriately provided as inpatient services in accordance to with the 2-midnight benchmark under 43 CFR 412.3(e) Estimated Total Length of Stay (Days): 2 Plans for Post Hospital Care: Not yet determined Review of Systems All other systems reviewed negative except as stated in HPI PMFSH - History History Provided By: Patient - Medical / Surgical Hx Neg / Unobtainable Medical Problems Denied: Yes - Medical History Medical History: Medical History (Last Reviewed 11/22/17 @ 22:14 by Kayla Prince MD) Patient denies medical problems - Surgical History Surgical History: Surgical History (Last Reviewed 11/22/17 @ 22:14 by Kayla Prince MD) No history of previous surgery - Family History Family History: Family History (Last Updated 11/22/17 @ 22:14 by Kayla Prince MD) Other Family history in first degree relatives is unremarkable - Social History I have reviewed the patient's Social History: Yes - Tobacco History Second Hand Smoke Exposure: No Tobacco Use In Past 30 Days: No Smoking Status: Never smoker - Alcohol History How Often Do You Have a Drink Containing Alcohol: Never - Substance Use History Substance History: No History of Abuse - Travel History Recent Travel in the [place] Within the Last 8 Weeks: No Recent Travel Out of the Country Within the Last 8 Weeks: No - Immunization History Tetanus Immunization: Never Vaccinated Hx Influenza Vaccine This Season: No Medications and Allergies Active Medications: Active Medications Sodium Chloride (Ns Inj) 1,000 mls @ 100 mls/hr IV.CONT .Q10H [facility] Last Admin: 11/22/17 05:45 Dose: 100 mls/hr Morphine Sulfate (Morphine Inj) 4 mg IV.PUSH Q4H PRN PRN Reason: pain 6-10 Ondansetron HCl (Zofran Inj) 4 mg IV.PUSH Q6H PRN PRN Reason: NAUSEA OR VOMITING Sodium Chloride (Ns Flush) 2 ml IV.FLUSH BID COLE Sodium Chloride (Ns Flush) 2 ml IV.FLUSH PRN PRN PRN Reason: FLUSH AFTER USING IV ACCESS Allergies Allergy/AdvReac Type Severity Reaction Status Date / Time No Known Allergies Allergy Verified 11/22/17 02:38 Home Medications Medication Instructions Recorded Confirmed Type No Known Home Medications 11/22/17 11/22/17 History Exam Vital signs: Vital Signs 11/22/17 02:35 11/22/17 03:06 11/22/17 03:33 Temperature 98.0 F Pulse Rate 65 62 Respiratory Rate 20 20 16 Blood Pressure 144/75 H 130/77 Pulse Oximetry 97 100 11/22/17 06:23 11/22/17 06:27 11/22/17 08:00 Temperature 97.3 F L Pulse Rate 56 L 56 L 62 Respiratory Rate 18 Blood Pressure 144/91 H 133/80 Pulse Oximetry 100 99 Intake & Output 11/21/17 11/22/17 11/22/17 18:59 06:59 18:59 Intake Total 1999 Output Total 700 / 700 Balance 1300 / 1300 Weight 77.5 kg Intake: IV 1999 NS Inj 1,000 ML @ Wide Open IV. 1999 SIG BOLUS [facility] Rx#:[id number] Output: Gastric Drainage 700 / 700 Right Nare Nasogastric Tube 700 / 700 Other: Weight On Admission 84.224 kg Narrative: GENERAL: Patient appears uncomfortable with NGT in place. SKIN: Warm and dry. HEAD: Atraumatic. Normocephalic. EYES: Pupils equal and round. No scleral icterus. No injection or drainage. ENT: No nasal bleeding or discharge. Mucous membranes pink and moist. NECK: Trachea midline. No JVD. CARDIOVASCULAR: Regular rate and rhythm. RESPIRATORY: No accessory muscle use. Clear to auscultation. Breath sounds equal bilaterally. GASTROINTESTINAL: Abdomen soft, non distended but diffusely tender. No bowel sounds appreciated. MUSCULOSKELETAL: Extremities without clubbing, cyanosis, or edema. No obvious deformities. NEUROLOGICAL: Awake and alert. No obvious cranial nerve deficits. Motor grossly within normal limits. Five out of 5 muscle strength in the arms and legs. Normal speech. PSYCHIATRIC: Appropriate mood and affect; insight and judgment normal. Results - Labs CBC & Chem 7: 11/22/17 03:03 11/22/17 03:03 Labs: Short CBC 11/22/17 Range/Units 03:03 WBC 12.1 H (4.0-11.0) th/mm3 Hgb 15.7 (13.0-17.0) gm/dL Hct 48.1 (39.0-51.0) % Plt Count 181 (150-450) th/mm3 BMP 11/22/17 03:03 Sodium 141 Potassium 3.7 Chloride 103 Carbon Dioxide 23.4 BUN 19 H Creatinine 1.61 H Calcium 10.0 Liver Function 11/22/17 Range/Units 03:03 Total Bilirubin 2.8 H (0.2-1.0) mg/dL AST 22 (15-37) U/L ALT 34 (12-78) U/L Alkaline Phosphatase 63 (45-117) U/L Albumin 5.4 H (3.4-5.0) g/dL - Imaging Impressions Abdomen/Pelvis CT 11/22/17 02:53 CONCLUSION: 1. High-grade obstruction at the level of the third portion of the duodenum with massive gastric distention. There is equivocal mass in the pancreatic head. Endoscopy is recommended to evaluate the stricture. Chest X-Ray 11/22/17 02:53 CONCLUSION: No acute cardiopulmonary disease. Caprini VTE Risk Assessment Caprini VTE Risk Assessment: No/Low Risk (score <= 1) Caprini Risk Assessment Model: Point Value = 1 Point Value = 2 Point Value = 3 Point Value = 5 Age 41-60 Minor surgery BMI > 25 kg/m2 Swollen legs Varicose veins or History of unexplained or recurrent spontaneous Oral contraceptives or hormone replacement Sepsis (< 1 month) Serious lung disease, including pneumonia (< 1 month) Abnormal pulmonary function Acute myocardial infarction Congestive heart failure (< 1 month) History of inflammatory bowel disease Medical patient at bed rest Age 61-74 Arthroscopic surgery Major open surgery (> 45 min) Laparoscopic surgery (> 45 min) Malignancy Confined to bed (> 72 hours) Immobilizing plaster cast Central venous access Age >= 75 History of VTE Family history of VTE Factor V Leiden Prothrombin [id number] Lupus anticoagulant Anticardiolipin antibodies Elevated serum homocysteine Heparin-induced thrombocytopenia Other congenital or acquired thrombophilia Stroke (< 1 month) Elective arthroplasty Hip, pelvis, or leg fracture Acute spinal cord injury (< 1 month) Prophylaxis Regimen: Total Risk Factor Score Risk Level Prophylaxis Regimen 0-1 Low Early ambulation 2 Moderate Order ONE of the following: *Sequential Compression Device (SCD) *Heparin 5000 units SQ BID 3-4 Higher Order ONE of the following medications: *Heparin 5000 units SQ TID *Enoxaparin/Lovenox 40 mg SQ daily (WT < 150 kg, CrCl > 30 mL/min) *Enoxaparin/Lovenox 30 mg SQ daily (WT < 150 kg, CrCl > 10-29 mL/min) *Enoxaparin/Lovenox 30 mg SQ BID (WT < 150 kg, CrCl > 30 mL/min) AND/OR *Sequential Compression Device (SCD) 5 or more Highest Order ONE of the following medications: *Heparin 5000 units SQ TID (Preferred with Epidurals) *Enoxaparin/Lovenox 40 mg SQ daily (WT < 150 kg, CrCl > 30 mL/min) *Enoxaparin/Lovenox 30 mg SQ daily (WT < 150 kg, CrCl > 10-29 mL/min) *Enoxaparin/Lovenox 30 mg SQ BID (WT < 150 kg, CrCl > 30 mL/min) AND *Sequential Compression Device (SCD) Assessment and Plan - Plan 47 Y/O male admitted with: High grade gastric outlet obstruction on CT: Imaging findings as above. Etiology unclear, possible pancreatic mass, pancreatitis. - Appreciate general surgery input. - Conservative management. - Continue NGT to LIS - GI on the case. Patient may benefit from endoscopy. Pancreatitis: Etiology unclear. ?Biliary, pancreatic obstruction - Continue supportive care with IVF - Pain control - Obtain triglycerides levels. JACLYN: Likely secondary to prerenal azotemia from dehydration - IVF - Monitor I/O - Follow renal functions. Avoid nephrotoxins. Hyperglycemia: - Accuchecks with SSI - Check A1C H&P: Quality - VTE Deep Vein Thrombosis/Pulmonary Embolism Present on Admission: No
[2017-11-22 14:06] LABS: Chol/HDL Ratio 2.02 Ratio; HDL Cholesterol 103.9 mg/dL (40.0-60.0)
[2017-11-22] MEDS: Sodium Chloride 0.9% 2 ML Flush BID IV.FLUSH SCH ×2 (15:57→20:19)
[2017-11-22] MEDS ORDERED: Gadobutrol PF 7.5 MMOL/7.5 ML Vial (for RAD) IV.SIG ONE (17:00)
--- NOTE | 2017-11-22 17:20 | MR ---
EXAM DATE: 11/22/2017 4:11 PM EDT AGE/SEX: 47 years / Male INDICATIONS: Mass. CLINICAL DATA: This is the patient's subsequent encounter. Patient reports that signs and symptoms h ave been present for 2 days and indicates a pain score of 5/10. MEDICAL/SURGICAL HISTORY: None. None. COMPARISON: No prior exams available for comparison. TECHNIQUE: Multisequence, multiplanar MRI examination was performed without contrast and after the in travenous administration of 7.1 ml Gadavist (gadobutrol) contrast as a single exam dose. FINDINGS: The stomach is massively dilated with fluid obscuring portions of the anne hepatis and th e pancreas. NG tube is present Liver: The liver is homogeneous and normal in signal intensity with no focal defects except for a fe w tiny cysts. Intrahepatic Bile Ducts: There is no intrahepatic biliary ductal dilatation. Common Bile Duct: The common bile duct is normal in caliber No filling defects or obstructing lesio ns are identified. Gallbladder: The gallbladder is normal with no evidence for cholelithiasis, gallbladder wall thicken ing, or pericholecystic fluid. Pancreas: The pancreas appears normal in signal with no focal parenchymal abnormalities. The pancrea tic duct is normal in caliber with no filling defects, or obstructing lesions identified. CONCLUSION: 1. Markedly dilated stomach filled with fluid. No evidence of biliary tree dilatation. Electronically signed by: Jeancarlos Weaver MD 11/22/2017 5:18 PM EDT
[2017-11-22] MEDS ORDERED: Atropine Inj 1 MG/10 ML Syringe ONE (22:04)
[2017-11-22] MEDS ORDERED: Dextrose 50% in Water 50 ML Vial IV.PUSH PRN (22:25)
[2017-11-22] MEDS ORDERED: KCL 10 mEq/D5W/NaCl 0.45% Inj 1,000 ML IV.CONT SCH (23:00)
[2017-11-23] MEDS ORDERED: Metoprolol Inj 5 MG/5 ML Vial IV.PUSH ONE ×2 (01:38→02:26)
[2017-11-23 02:42] LABS: Calcium 9.4 mg/dL (8.5-10.1); Carbon Dioxide 23.3 meq/L (21.0-32.0); Magnesium 3.3 mg/dL (1.5-2.5)
--- NOTE | 2017-11-23 04:54 | P.PNADD ---
Addendum to Inpatient Note Reason for Addendum: Additional Documentation Additional information: At approximately 0400 this morning the on-call resident team was notified of a CODE BLUE in room 1704. Drs. Pritchett and Drs. Montiel responded to the room where Dr. Grant was actively running the code. This patient is a 47-year-old male with no known medical history admitted for high-grade obstruction at the level of the third portion duodenum with massive gastric distention of unclear etiology. This patient began decompensating earlier this morning and had pulses ranging from 170 to ultimately asystole. During the code patient received 5 rounds of epinephrine accompanied by bicarb as well as two 1L boluses of normal saline. There were 2 shockable rhythms observed that were subsequently shocked at 200J. After 19 minutes of cardiopulmonary resuscitation the patient ultimately regained spontaneous sinus rhythm at 0419. Patient was transferred to the ICU. During the code Drs. Montiel and Shreyas assisted with compressions as well as the administration of boluses of normal saline.
[2017-11-23 05:13] LABS: Hematocrit 40.5 % (39.0-51.0); Hemoglobin 13.3 gm/dL (13.0-17.0); Mean Corpuscular HGB Conc 32.8 % (32.0-36.0); Mean Corpuscular Hemoglobin 31.1 pg (27.0-34.0); Mean Corpuscular Volume 94.7 fL (80.0-100.0); Mean Platelet Volume 9.3 fL (7.0-11.0); Platelet Count 130 th/mm3 (150-450); Red Blood Count 4.28 mil/mm3 (4.50-5.90); Red Cell Distribution Width 14.9 % (11.6-17.2)
[2017-11-23 05:35] LABS: Calcium 8.2 mg/dL (8.5-10.1); Carbon Dioxide 18.5 meq/L (21.0-32.0); Potassium 3.6 meq/L (3.5-5.1)
[2017-11-23 05:57] LABS: Activated Partial Thrombo Time 27.1 sec (24.3-30.1); Baso % (Auto) 0.2 % (0.0-2.0); Eos % (Auto) 0.2 % (0.0-4.0); Hematocrit 41.3 % (39.0-51.0); Hemoglobin 13.3 gm/dL (13.0-17.0); Lymph # (Auto) 0.9 th/mm3 (1.0-4.8); Lymph % (Auto) 13.3 % (9.0-44.0); Mean Corpuscular HGB Conc 32.2 % (32.0-36.0); Mean Corpuscular Hemoglobin 30.9 pg (27.0-34.0); Mean Corpuscular Volume 96.2 fL (80.0-100.0); Mono # (Auto) 0.2 th/mm3 (0.0-0.9); Mono % (Auto) 2.4 % (0.0-8.0); Neut # (Auto) 5.6 th/mm3 (1.8-7.7); Neut % (Auto) 83.9 % (16.0-70.0); Platelet Count 128 th/mm3 (150-450); Red Blood Count 4.29 mil/mm3 (4.50-5.90); Red Cell Distribution Width 15.2 % (11.6-17.2); White Blood Count 6.7 th/mm3 (4.0-11.0)
[2017-11-23] MEDS ORDERED: Albumin Human 5% Inj 250 ML IV.SIG ONE (05:59)
[2017-11-23] MEDS ORDERED: Albumin Human 25% Inj 100 ML IV.SIG SCH (06:00)
[2017-11-23 06:07] LABS: INR 1.5 Ratio; Prothrombin Time 14.8 sec (9.8-11.6)
[2017-11-23] MEDS ORDERED: Sod Chloride 0.9% Inj 1,000 ML IV.SIG SCH (06:07)
[2017-11-23] MEDS ORDERED: fentaNYL Citrate Inj 100 MCG/2 ML Ampul IV.PUSH ONE (06:09)
[2017-11-23] MEDS ORDERED: fentaNYL 10 mcg/mL Premix Drip 2,500 MCG/250 ML BAG IV.SIG PRN (06:09)
[2017-11-23 06:11] LABS: ABG Base Excess -12.6 mmol/L (-2-2); ABG PCO2 40 mmHg (38-42); ABG PO2 396 mmHg (61-120)
[2017-11-23] MEDS ORDERED: fentaNYL Citrate Inj 100 MCG/2 ML Ampul ONE (06:11)
[2017-11-23] MEDS ORDERED: Midazolam 50 MG/50 ML Inj 50 MG/50 ML BAG IV.CONT PRN (06:11)
--- NOTE | 2017-11-23 06:20 | XR ---
EXAM DATE: 11/23/2017 5:39 AM EDT AGE/SEX: 47 years / Male INDICATIONS: Post intubation and central line placement CLINICAL DATA: This is the patient's initial encounter. Patient reports that signs and symptoms have been present for 1 day and indicates a pain score of Nonresponsive. MEDICAL/SURGICAL HISTORY: None. None. COMPAR[place]: [facility] [place]AST, 11/22/2017. [facility] [place] 1V SINGLE AP, 8. . FINDINGS: ET tube is is within 1 cm the [place]. The NG tube tip is at the EG junction region. There is a right internal jugular central line in place with tip overlying the SVC. The heart size is normal. The lung s are clear. There does appear to be air in the right upper abdomen under the right hemidiaphragm. CONCLUSION: Pneumoperitoneum. ET tube in a low position. This could be pulled back 2 cm. NG tube at the EG junction. This should be advanced. This information was relayed to [facility]'s nurse. Electronically signed by: Jordi Martinez MD 11/23/2017 6:19 AM EDT
[2017-11-23 06:25] LABS: Alanine Aminotransferase 260 U/L (12-78); Alkaline Phosphatase 59 U/L (45-117); Anion Gap 20 meq/L (5-15); Aspartate Aminotransferase 270 U/L (15-37); Blood Urea Nitrogen 18 mg/dL (7-18); Calcium 8.2 mg/dL (8.5-10.1); Carbon Dioxide 18.2 meq/L (21.0-32.0); Chloride 118 meq/L (98-107); Glomerular Filtration Rate 33 mL/min (>89); Glucose,Random 96 mg/dL (74-106); Lipase 5260 U/L (73-393); Potassium 3.6 meq/L (3.5-5.1); Total Protein 5.4 g/dL (6.4-8.2)
[2017-11-23] MEDS ORDERED: Vancomycin Inj 1 GM/200 ML PIGGYBACK IV.SIG ONE (06:25)
--- NOTE | 2017-11-23 06:26 | P.PCN ---
Date of procedure: 11/23/17 Procedure: Date: 11/23/17 Procedure: Cardiopulmonary resuscitation Indication: Homer PEA cardiac arrest Details of procedure: I responded to CODE BLUE on the floor, patient previously not known to me. CPR was ongoing when I arrived and RT was bagging. I intubated patient as per separate procedure note. Per ACLS protocol pt received CPR, manual bag-valve ventilation , epinephrine 5 mg IV, CaCl2 1 AM, sodium bicarb 150 mEQ and 2 L of NS wide open. Glucose was 91. After 21 minutes resuscitation there was ROSC. Pt was hypotensive, started on dopamine drip and transferred emergently to [facility] for ongoing resuscitation. I contacted patient's mother but she did not seem capacitated for medical decision making. She was not able to provide any additional contact information.
--- NOTE | 2017-11-23 06:26 | P.PCN ---
Date of procedure: 11/23/17 Pre-op diagnosis: Respiratory Procedure: PROCEDURE NOTE PROCEDURE: Endotracheal intubation INDICATION: 11/23/17 DETAILS OF PROCEDURE: CPR was ongoing and patient bagged with 100% FiO2 via [id number]. Direct laryngoscopy was performed with a 4 Worrell laryngoscope blade and a grade II Cormack-Lehane view was obtained. On single attempt a size 8.0 endotracheal tube was visualized passing through the cords. Correct placement was confirmed with colorimetric CO2 detector. Breath sounds were equal bilaterally. No sounds auscultated over the stomach. The endotracheal tube was secured with a commercial tube bustamante at a depth of 24 cm at the lips. Bagging was continued. Stat chest x-ray was ordered and ETT was withdrawn 1 cm to 23 cm at the lips.
[2017-11-23 06:32] LABS: Sodium 156 meq/L (136-145)
[2017-11-23] MEDS ORDERED: Phenylephrine/NS 1000 MCG/10ML Syringe IV.PUSH ONE (06:32)
[2017-11-23] MEDS ORDERED: Sodium Chlor 0.9% Inj 500 ML IV.CONT ONE (06:32)
--- NOTE | 2017-11-23 06:54 | P.CONCC ---
History of Present Illness Service: Critical care medicine Consult date: 11/23/17 Requesting Physician: Trang Kaur Reason for Consult: Damon Gomez Primary Care Provider: No Primary Care Physician Chief Complaint: Abdominal pain History of Present Illness: 47-year-old -Eth[place]ian male with reportedly no past medical or past surgical history who was admitted to hospitalist service 11/22/17 after presenting with abdominal pain, nausea, vomiting. He had CT abd/pelvis with massive gastric distention. NG tube had been placed. I was called to patient's bedside for CODE BLUE PEA arrest. CPR was ongoing and patient had massive abdominal distension and gastric regurgitant in the airway. He was emergently intubated and large amount of gastric secretions suctioned from oropharynx. After 21 minutes of CPR, ROSC was obtained and he was profoundly hypotensive. Continued aggressive fluid resuscitation and initiated dopamine. He was transferred to [facility] where CVL and R radial art line were placed and he was given 7 L of crystalloid and albumin. CXR demonstrated pneumoperitoneum and Dr. Martin Gudino was called emergently and he immediately contacted OR for emergent ex lap. He had intraabdominal hypertension with IAP of 40 mmHg, though fortunately was able to be ventilated adequately after rocuronium 50 mg IV and was transferred to OR. Review of Systems unobtainable due to endotracheal tube, unobtainable due to mental status PMFSH - History History Provided By: Patient - Medical / Surgical Hx Neg / Unobtainable Medical Problems Denied: Yes - Medical History Medical History: Medical History (Last Reviewed 11/22/17 @ 22:14 by Kayla Prince MD) Patient denies medical problems - Surgical History Surgical History: Surgical History (Last Reviewed 11/22/17 @ 22:14 by Kayla Prince MD) No history of previous surgery - Family History Family History: Family History (Last Updated 11/22/17 @ 22:14 by Kayla Prince MD) Other Family history in first degree relatives is unremarkable - Tobacco History Second Hand Smoke Exposure: No Tobacco Use In Past 30 Days: No Smoking Status: Never smoker - Alcohol History How Often Do You Have a Drink Containing Alcohol: Never - Substance Use History Substance History: No History of Abuse - Travel History Recent Travel in the [place] Within the Last 8 Weeks: No Recent Travel Out of the Country Within the Last 8 Weeks: No - Immunization History Tetanus Immunization: Never Vaccinated Hx Influenza Vaccine This Season: No Medications and Allergies Active Medications: Active Medications Dextrose (D50w Vial) 50 ml IV.PUSH UNSCH PRN PRN Reason: PER HYPOGLYCEMIA PROTOCOL Glucagon (Glucagon Inj) 1 mg OTHER PRN PRN PRN Reason: for Hypoglycemia Protocol Potassium Chloride/Dextrose/Sod Cl (D5w/1/2ns + Kcl 10 Meq Inj) 1,000 mls @ 125 mls/hr IV.CONT .Q8H COLE Last Admin: 11/23/17 00:15 Dose: 125 mls/hr Piperacillin/Tazobactam/Dextrose (Zosyn 2.25 Gm Premix) 50 mls @ 100 mls/hr IV.SIG Q6H COLE Fluconazole (Diflucan 400 Mg Premix Bag) 200 mls @ 100 mls/hr IV.SIG ONCE ONE Stop: 11/23/17 07:59 Albumin Human (Flexbumin 25% Inj) 100 mls @ 60 mls/hr IV.SIG Q100M COLE Stop: 11/23/17 09:19 Fentanyl (Fentanyl 10 Mcg/Ml Premix Drip) 2,500 mcg in 250 mls @ 5 mls/hr IV.SIG TITRATE PRN; Protocol PRN Reason: Per Protocol Midazolam HCl (Versed Inj) 50 mg in 50 mls @ 2 mls/hr IV.CONT TITRATE PRN; Protocol PRN Reason: Per Protocol Vancomycin HCl 1,000 mg/ (Sodium Chloride) 250 mls @ 250 mls/hr IV.SIG ONCE ONE Stop: 11/23/17 07:59 Insulin Aspart (Novolog Insulin Correctional Sugar Inj) 0 unit SQ ACHS COLE; Protocol Morphine Sulfate (Morphine Inj) 4 mg IV.PUSH Q4H PRN PRN Reason: pain 6-10 Last Admin: 11/22/17 22:40 Dose: 4 mg Ondansetron HCl (Zofran Inj) 4 mg IV.PUSH Q6H PRN PRN Reason: NAUSEA OR VOMITING Last Admin: 11/23/17 00:14 Dose: 4 mg Sodium Chloride (Ns Flush) 2 ml IV.FLUSH BID COLE Last Admin: 11/22/17 20:19 Dose: Not Given Sodium Chloride (Ns Flush) 2 ml IV.FLUSH PRN PRN PRN Reason: FLUSH AFTER USING IV ACCESS Allergies Allergy/AdvReac Type Severity Reaction Status Date / Time No Known Allergies Allergy Verified 11/22/17 02:38 Home Medications Medication Instructions Recorded Confirmed Type No Known Home Medications 11/22/17 11/22/17 History Physical Exam Vital signs: Vital Signs 11/22/17 08:00 11/22/17 10:00 11/22/17 10:30 Temperature 97.2 F L Pulse Rate 62 74 86 Respiratory Rate 18 Blood Pressure 133/80 131/84 Pulse Oximetry 99 97 11/22/17 12:00 11/22/17 13:00 11/22/17 16:00 Temperature 97.5 F L 99.6 F Pulse Rate 65 60 66 Respiratory Rate 18 18 Blood Pressure 137/77 157/43 H Pulse Oximetry 100 11/22/17 19:00 11/22/17 20:00 11/22/17 21:00 Temperature 98.0 F Pulse Rate 88 66 67 Respiratory Rate 18 Blood Pressure 130/76 Pulse Oximetry 99 11/22/17 22:00 11/23/17 00:51 11/23/17 05:10 Temperature 97.7 F Pulse Rate 69 170 H Respiratory Rate 18 16 Blood Pressure 127/73 Pulse Oximetry 96 100 11/23/17 06:38 Temperature Pulse Rate Respiratory Rate Blood Pressure Pulse Oximetry 100 Intake & Output 11/22/17 11/22/17 11/23/17 06:59 18:59 06:59 Intake Total 1999 1400 / 1400 Output Total 700 / 700 2450 / 2450 175 / 175 Balance 1300 / 1300 -1050 / -1050 -175 / -175 Weight 77.5 kg Intake: IV 1999 1000 / 1000 NS Inj 1,000 ML @ 100 mls/hr IV 1000 / 1000 .CONT .Q10H COLE Rx#:[id number] NS Inj 1,000 ML @ Wide Open IV. 1999 SIG BOLUS COLE Rx#:[id number] Oral 400 / 400 Output: Gastric Drainage 700 / 700 2450 / 2450 175 / 175 Left Nare 2450 / 2450 175 / 175 Right Nare Nasogastric Tube 700 / 700 Other: Weight On Admission 84.224 kg Narrative: GENERAL: Critically ill-appearing -[place]ian male who is now orotracheally intubated. SKIN: warm, delayed cap refill. HEAD: Atraumatic. Normocephalic. EYES: Pupils equal and round, 3 mm and reactive. ENT: No nasal bleeding or discharge. NECK: Trachea midline. No JVD. CARDIOVASCULAR: Tachycardic, sinus tach on monitor with rate in the 130s. No mrg appreciated. RESPIRATORY: Orotracheally intubated with 8.0 ETT, brown secretions suctioned from ETT. Breath sounds present bilaterally, diminished bibasilar. GASTROINTESTINAL: Abdomen distended, taught and tympanitic. MUSCULOSKELETAL: Extremities without clubbing, cyanosis, or edema. No obvious deformities. NEUROLOGICAL: + pupils reactive, overbreathing vent, +corneal reflex bilaterally. Withdrawing with BUE. - Urinary Catheter Management Indwelling Urethral Catheter Cath placed during this visit: yes Reason for continuing: Hourly intake/output Insertion date: 11/23/17 Insertion time: 05:00 Septic Shock Reassessment Septic shock perfusion: reassessment completed Assessment and Plan - Problem List (1) Septic shock Code(s): A41.9 - Sepsis, unspecified organism; R65.21 - Severe sepsis with septic shock Status: Acute (2) Acute respiratory failure Code(s): J96.00 - Acute respiratory failure, unspecified whether with hypoxia or hypercapnia Status: Acute (3) Pneumoperitoneum Code(s): K66.8 - Other specified disorders of peritoneum Status: Acute (4) Cardiac arrest Code(s): I46.9 - Cardiac arrest, cause unspecified Status: Acute (5) JACLYN (acute kidney injury) Code(s): N17.9 - Acute kidney failure, unspecified Status: Acute (6) Transaminitis Code(s): R74.0 - Nonspecific elevation of levels of transaminase and lactic acid dehydrogenase [LDH] Status: Acute (7) Abdominal compartment syndrome Code(s): T79.A3XA - Traumatic compartment syndrome of abdomen, initial encounter Status: Acute - Assessment and Plan Plan: NEURO: Acute encephalopathy secondary to sepsis Fentanyl and Versed for sedation. Rocuronium 50 mg IV given x2 to facilitate ventilation as patient had mouth clenching as well as intra-abdominal hypertension which was making it difficult to ventilate. Target RASS -3 RESP: Acute respiratory failure Ventilator Bundle. PRVC. CV: Septic shock Lactic acidemia Initial CVP after 4 L of IVF was 3-4. Given total 7 L of IVF bolus and Albumin 50 gram IV. On dopamine to maintain MAP >65. Continue LR 150/hr. lactic acid 12.5, will trend. GI: Pneumoperitoneum Gastric outlet/SBO Intra-abdominal compartment syndrome NGT in place. Empiric antibiotics as per below. NPO. Emergent ex lap per Dr. Gudino. Monitor IAP q2 hours. Elevated lipase ?pancreatitis vs ?pancreatic mass vs secondary to SBO. GI following Transaminitis- likely secondary to sepsis FEN/RENAL: JACLYN Hypernatremia Hyperchloremia Insert guerrero, monitor I/O. Avoid nephrotoxins. Monitor electrolytes and replace as indicated ID: Intraabdominal sepsis secondary to perforated viscous Ex lap for source control per Dr. Gudino Sent 2 sets of blood cultures. Empiric Zosyn 2.25 IV q6, Diflucan 400 mg load then 200 mg IV q24 hours, Vancomycin 1 gram IV x1. HEME: DIC Thrombocytopenia, hypofibrinogenemia, prolonged INR. Type and cross 2 units packed red cells ENDO: Acute hyperglycemia secondary to sepsis On insulin sliding scale PROPH: Is for DVT prophylaxis. Hold on pharmacologic DVT prophylaxis at this time as he is going to the OR. Protonix 40 mg IV daily for stress ulcer prophylaxis ACCESS: Right IJ central venous line placed 11/23. Right radial art line placed 11/23/17. Full code Patient is critically ill requiring emergent intubation, central line placement , art line placement and active resuscitation and emergent surgical consult. He is at high risk of further deterioration or . Critical care time 90 minutes exclusive of separately billable procedures. I attempted to contact patient's mother. She is obviously confused and is not capacitated for medical decision-making. She was not able to provide any contact information for additional family. She tells me the patient's correct date of but insists that he is a high school senior, a teenager, who lives with her at home. She says he is not and has no children " because he is just a young boy".
--- NOTE | 2017-11-23 06:54 | P.PCN ---
Date of procedure: 11/23/17 Procedure: DATE: 11/23/17 PROCEDURE: Right radial arterial catheter placement INDICATION: Shock DETAILS OF PROCEDURE Mars test was performed and adequate collateral circulation was confirmed. The skin was cleansed with Chloraprep. Additional barrier precautions included sterile towels,, sterile gloves, sterile gown, face mask, and hat. Under direct ultrasound guidnce and on the forth attempt, the artery was accessed with an Arrow quick-flash 20 gauge radial catheter kit. The guide wire was advanced. Using Seldinger technique 20 gauge arterial catheter was placed. The guide wire and needle were removed. The catheter was connected to a transducer line and flushed with saline. The video monitor displayed normal arterial wave forms. The catheter was secured with 2-0 silk. A sterile dressing with antibiotic disc was applied. ESTIMATED BLOOD LOSS: minimal COMPLICATIONS: None
--- NOTE | 2017-11-23 06:54 | P.PCN ---
Date of procedure: 11/23/17 Procedure: DATE: 11/23/17 CENTRAL LINE PLACEMENT: Right IJ vein. INDICATION: Central venous access CONSENT CVL was performed emergently as patient is in profound shock and in need of central venous access. DESCRIPTION OF THE PROCEDURE The patient was placed in supine position, mild Trendelenburg. The skin was cleansed with Chloraprep x3. Additional barrier precautions included large sterile drape, sterile gloves, sterile gown, face mask, and hat. 1 % lidocaine was used for local anesthesia. Under direct ultrasound guidance and on single attempt, the vein was accessed with an introducer needle. The guide wire was advanced and the tract was dilated. Using Seldinger technique a 7 Burmese 20 cm antimicrobial coated triple-lumen catheter was advanced to a depth of 17 centimeters. The guide wire was removed. All ports had good return of dark venous blood and flushed easily with saline. The central line was secured with 2.0 silk because Statlock would not secure adequately.. A sterile dressing with antibiotic disc was applied. ESTIMATED BLOOD LOSS: Minimal COMPLICATIONS: No apparent complications. STAT chest x-ray demonstrated satisfactory central venous line position without apparent complication.
[2017-11-23] MEDS ORDERED: Vancomycin Inj 1,000 MG in Sodium Chlor 0.9% Inj 250 ML IV.SIG ONE (07:00)
[2017-11-23] MEDS ORDERED: Ketamine Inj 500 MG/10 ML Vial ONE (07:19)
[2017-11-23] MEDS: Piperacil/Tazo 2.25 GM Premix 50 ML IV.SIG SCH ×5 (07:44→18:39)
[2017-11-23 08:18] LABS: ABG Base Excess -9.1 mmol/L (-2-2); ABG PCO2 38 mmHg (38-42); ABG PO2 91 mmHg (61-120)
--- NOTE | 2017-11-23 08:52 | P.PNGI ---
Subjective Interval history: Approximately 0400 this a.m. patient experienced cardiac arrest CPR initiated. Patient intubated to ventilator and is now post operative exploratory laparotomy with midline abdominal wound attached to Maximilian-Velasco drain. Patient has OG/NG to suction. Currently on dopamine drip at 6 mcg/kilogram/ minute with a blood pressure of 114/73. <Karen Oliveira - Last Filed: 11/23/17 08:52> Physical Exam Vital signs: Vital Signs 11/22/17 10:00 11/22/17 10:30 11/22/17 12:00 Temperature 97.2 F L 97.5 F L Pulse Rate 74 86 65 Respiratory Rate 18 18 Blood Pressure 131/84 137/77 Pulse Oximetry 97 100 11/22/17 13:00 11/22/17 16:00 11/22/17 19:00 Temperature 99.6 F Pulse Rate 60 66 88 Respiratory Rate 18 Blood Pressure 157/43 H Pulse Oximetry 11/22/17 20:00 11/22/17 21:00 11/22/17 22:00 Temperature 98.0 F Pulse Rate 66 67 69 Respiratory Rate 18 Blood Pressure 130/76 Pulse Oximetry 99 11/23/17 00:51 11/23/17 04:30 11/23/17 05:00 Temperature 97.7 F Pulse Rate 170 H 130 H 130 H Respiratory Rate 18 Blood Pressure 127/73 131/59 L Pulse Oximetry 96 11/23/17 05:10 11/23/17 06:38 Temperature Pulse Rate Respiratory Rate 16 Blood Pressure Pulse Oximetry 100 100 Intake & Output 11/22/17 11/23/17 11/23/17 18:59 06:59 18:59 Intake Total 1400 / 1400 6000 / 6000 1600 / 1600 Output Total 2450 / 2450 205 / 205 50 / 50 Balance -1050 / -1050 5795 / 5795 1550 / 1550 Intake: IV 1000 / 1000 6000 / 6000 NS Inj 1,000 ML @ 100 mls/hr IV 1000 / 1000 6000 / 6000 .CONT .Q10H [facility] Rx#:[id number] Oral 400 / 400 Anesthesia Amount 1600 / 1600 Output: Urine 0 / 0 Estimated Blood Loss 50 / 50 Urine Amount (Catheter) 30 / 30 Indwelling Urethral Catheter 30 / 30 Gastric Drainage 2450 / 2450 175 / 175 Left Nare 2450 / 2450 175 / 175 Other: # Voids 1 - Constitutional Comments: Patient intubated via ET tube to mechanical ventilator - Routine HEENT Exam Head: Present: normocephalic - Routine Neck Exam Present: trachea midline - Routine Respiratory Exam Present: patient mechanically ventilated - Routine Cardiovascular Exam Present: RRR, S1, S2 - Routine Abdominal Exam Present: wound, drain Comments: Large midline abdominal incision with drain attached to suction - Routine Extremities Exam Present: pulses intact. Absent: edema - Routine Skin Exam Present: dry, pallor, warm - Routine Neurological Exam Unresponsive - Urinary Catheter Management Indwelling Urethral Catheter Cath placed during this visit: yes Urethral indwelling: Yes Reason for continuing: Hourly intake/output Insertion date: 11/23/17 Insertion time: 05:00 <Karen Oliveira - Last Filed: 11/23/17 08:52> Vital signs: Vital Signs 11/22/17 16:00 11/22/17 19:00 11/22/17 20:00 Temperature 99.6 F 98.0 F Pulse Rate 66 88 66 Respiratory Rate 18 18 Blood Pressure 157/43 H 130/76 Pulse Oximetry 99 11/22/17 21:00 11/22/17 22:00 11/23/17 00:51 Temperature 97.7 F Pulse Rate 67 69 170 H Respiratory Rate 18 Blood Pressure 127/73 Pulse Oximetry 96 11/23/17 04:30 11/23/17 05:00 11/23/17 05:10 Temperature Pulse Rate 130 H 130 H Respiratory Rate 16 Blood Pressure 131/59 L Pulse Oximetry 100 11/23/17 06:38 11/23/17 08:00 11/23/17 08:30 Temperature Pulse Rate 107 H 102 H Respiratory Rate 16 Blood Pressure 99/56 L Pulse Oximetry 100 98 97 11/23/17 08:32 11/23/17 08:45 11/23/17 09:00 Temperature Pulse Rate 105 H 103 H Respiratory Rate 16 17 16 Blood Pressure Pulse Oximetry 97 98 99 11/23/17 09:15 11/23/17 09:30 11/23/17 09:45 Temperature Pulse Rate 105 H 107 H 110 H Respiratory Rate 16 16 16 Blood Pressure Pulse Oximetry 98 98 97 11/23/17 10:00 11/23/17 10:15 11/23/17 10:30 Temperature Pulse Rate 112 H 119 H 114 H Respiratory Rate 16 16 16 Blood Pressure Pulse Oximetry 97 94 L 95 11/23/17 10:45 11/23/17 11:00 11/23/17 11:15 Temperature Pulse Rate 118 H 123 H 115 H Respiratory Rate 16 16 16 Blood Pressure Pulse Oximetry 93 L 92 L 88 L 11/23/17 11:30 11/23/17 11:32 11/23/17 11:45 Temperature Pulse Rate 115 H 114 H Respiratory Rate 16 16 16 Blood Pressure Pulse Oximetry 95 95 97 11/23/17 12:00 11/23/17 12:12 11/23/17 12:15 Temperature Pulse Rate 116 H 118 H 117 H Respiratory Rate 16 16 Blood Pressure 110/72 Pulse Oximetry 97 95 11/23/17 12:30 11/23/17 12:45 11/23/17 13:00 Temperature Pulse Rate 122 H 123 H 126 H Respiratory Rate 16 16 16 Blood Pressure Pulse Oximetry 93 L 93 L 94 L 11/23/17 13:15 11/23/17 13:30 11/23/17 13:45 Temperature Pulse Rate 125 H 126 H 129 H Respiratory Rate 16 16 16 Blood Pressure Pulse Oximetry 95 94 L 94 L 11/23/17 14:00 11/23/17 14:15 11/23/17 14:30 Temperature Pulse Rate 131 H 133 H 146 H Respiratory Rate 16 141 H Blood Pressure Pulse Oximetry 93 L 92 L 88 L Intake & Output 11/22/17 11/23/17 11/23/17 18:59 06:59 18:59 Intake Total 1400 / 1400 6000 / 6000 1700 / 1700 Output Total 2450 / 2450 205 / 205 50 / 50 Balance -1050 / -1050 5795 / 5795 1650 / 1650 Intake: IV 1000 / 1000 6000 / 6000 100 / 100 NS Inj 1,000 ML @ 100 mls/hr IV 1000 / 1000 6000 / 6000 .CONT .Q10H [facility] Rx#:[id number] Zosyn 2.25 GM Premix 50 ML @ 100 / 100 100 mls/hr IV.SIG Q6H [facility] Rx#: [id number] Oral 400 / 400 Anesthesia Amount 1600 / 1600 Output: Urine 0 / 0 Estimated Blood Loss 50 / 50 Urine Amount (Catheter) 30 / 30 Indwelling Urethral Catheter 30 / 30 Gastric Drainage 2450 / 2450 175 / 175 Left Nare 2450 / 2450 175 / 175 Other: # Voids 1 - Urinary Catheter Management Indwelling Urethral Catheter Cath placed during this visit: no <Maddi King - Last Filed: 11/23/17 15:18> Results - Labs CBC & Chem 7: 11/23/17 04:50 11/23/17 04:50 Laboratory Results - last 24 hr 11/22/17 11/22/17 11/22/17 03:03 09:00 18:17 WBC RBC Hgb Hct MCV MCH MCHC RDW Plt Count MPV Neut % (Auto) Lymph % (Auto) [place] % (Auto) Eos % (Auto) Baso % (Auto) Neut # (Auto) Lymph # (Auto) [place] # (Auto) Eos # (Auto) Baso # (Auto) WBC Differential Differential Comment PT INR APTT Fibrinogen Puncture Site Patient Temperature O2 Saturation ABG pH ABG pCO2 ABG pO2 ABG HCO3 ABG O2 Content ABG Base Excess ABG Methemoglobin Mars Test Hemoglobin Carboxyhemoglobin O2 Delivery Device Vent Setting Inspired O2 Critical Value Sodium Potassium Chloride Carbon Dioxide Anion Gap BUN Creatinine Estimated GFR POC Glucose Random Glucose Lactic Acid 4.6 H* Calcium Magnesium Total Bilirubin Direct Bilirubin Indirect Bilirubin AST ALT Alkaline Phosphatase Total Protein Albumin Triglycerides 46 Cholesterol 210 H LDL Cholesterol, Calc 97 HDL Cholesterol 103.9 H Cholesterol/HDL Ratio 2.02 Lipase Carcinoembryonic Ag CA 19-9 Antigen 4.8 IgA Endomysial Ab Titer Endomysial IgA Ab Tiss Transglutamin IgG Tiss Transglutamin IgA Celiac Disease Interp 11/22/17 11/22/17 11/23/17 18:17 18:17 02:19 WBC RBC Hgb Hct MCV MCH MCHC RDW Plt Count MPV Neut % (Auto) Lymph % (Auto) [place] % (Auto) Eos % (Auto) Baso % (Auto) Neut # (Auto) Lymph # (Auto) [place] # (Auto) Eos # (Auto) Baso # (Auto) WBC Differential Differential Comment PT INR APTT Fibrinogen Puncture Site Patient Temperature O2 Saturation ABG pH ABG pCO2 ABG pO2 ABG HCO3 ABG O2 Content ABG Base Excess ABG Methemoglobin Mars Test Hemoglobin Carboxyhemoglobin O2 Delivery Device Vent Setting Inspired O2 Critical Value Sodium 147 H Potassium 4.0 Chloride 110 H Carbon Dioxide 23.3 Anion Gap 14 BUN 18 Creatinine 2.41 H Estimated GFR 35 L POC Glucose Random Glucose 260 H Lactic Acid Calcium 9.4 Magnesium 3.3 H Total Bilirubin Direct Bilirubin Indirect Bilirubin AST ALT Alkaline Phosphatase Total Protein Albumin Triglycerides Cholesterol LDL Cholesterol, Calc HDL Cholesterol Cholesterol/HDL Ratio Lipase Carcinoembryonic Ag 0.4 CA 19-9 Antigen IgA Cancelled Endomysial Ab Titer Cancelled Endomysial IgA Ab Cancelled Tiss Transglutamin IgG Cancelled Tiss Transglutamin IgA Cancelled Celiac Disease Interp Cancelled 11/23/17 11/23/17 11/23/17 04:02 04:50 04:50 WBC 6.7 RBC 4.29 L Hgb 13.3 D Hct 41.3 MCV 96.2 MCH 30.9 MCHC 32.2 RDW 15.2 Plt Count 128 L MPV 10.0 Neut % (Auto) 83.9 H Lymph % (Auto) 13.3 [place] % (Auto) 2.4 Eos % (Auto) 0.2 Baso % (Auto) 0.2 Neut # (Auto) 5.6 Lymph # (Auto) 0.9 L [place] # (Auto) 0.2 Eos # (Auto) 0.0 Baso # (Auto) 0.0 WBC Differential . Differential Comment Auto diff final PT INR APTT Fibrinogen Puncture Site Patient Temperature O2 Saturation ABG pH ABG pCO2 ABG pO2 ABG HCO3 ABG O2 Content ABG Base Excess ABG Methemoglobin Mars Test Hemoglobin Carboxyhemoglobin O2 Delivery Device Vent Setting Inspired O2 Critical Value Sodium 156 H* Potassium 3.6 Chloride 118 H D Carbon Dioxide 18.2 L Anion Gap 20 H BUN 18 Creatinine 2.54 H Estimated GFR 33 L POC Glucose 91 Random Glucose 96 D Lactic Acid Calcium 8.2 L D Magnesium Total Bilirubin 1.8 H Direct Bilirubin 0.4 H Indirect Bilirubin 1.4 H AST 270 H ALT 260 H Alkaline Phosphatase 59 Total Protein 5.4 L D Albumin 3.0 L D Triglycerides Cholesterol LDL Cholesterol, Calc HDL Cholesterol Cholesterol/HDL Ratio Lipase 5260 H Carcinoembryonic Ag CA 19-9 Antigen IgA Endomysial Ab Titer Endomysial IgA Ab Tiss Transglutamin IgG Tiss Transglutamin IgA Celiac Disease Interp 11/23/17 11/23/17 11/23/17 04:50 04:50 04:50 WBC 7.0 RBC 4.28 L Hgb 13.3 Hct 40.5 MCV 94.7 MCH 31.1 MCHC 32.8 RDW 14.9 Plt Count 130 L MPV 9.3 Neut % (Auto) Lymph % (Auto) [place] % (Auto) Eos % (Auto) Baso % (Auto) Neut # (Auto) Lymph # (Auto) [place] # (Auto) Eos # (Auto) Baso # (Auto) WBC Differential Differential Comment PT INR APTT 27.1 Fibrinogen 201 L Puncture Site Patient Temperature O2 Saturation ABG pH ABG pCO2 ABG pO2 ABG HCO3 ABG O2 Content ABG Base Excess ABG Methemoglobin Mars Test Hemoglobin Carboxyhemoglobin O2 Delivery Device Vent Setting Inspired O2 Critical Value Sodium 156 H* Potassium 3.6 Chloride 118 H Carbon Dioxide 18.5 L Anion Gap 20 H BUN 18 Creatinine 2.57 H Estimated GFR 33 L POC Glucose Random Glucose 97 Lactic Acid Calcium 8.2 L Magnesium Total Bilirubin Direct Bilirubin Indirect Bilirubin AST ALT Alkaline Phosphatase Total Protein Albumin Triglycerides Cholesterol LDL Cholesterol, Calc HDL Cholesterol Cholesterol/HDL Ratio Lipase Carcinoembryonic Ag CA 19-9 Antigen IgA Endomysial Ab Titer Endomysial IgA Ab Tiss Transglutamin IgG Tiss Transglutamin IgA Celiac Disease Interp 11/23/17 11/23/17 11/23/17 04:50 04:50 05:45 WBC RBC Hgb Hct MCV MCH MCHC RDW Plt Count MPV Neut % (Auto) Lymph % (Auto) [place] % (Auto) Eos % (Auto) Baso % (Auto) Neut # (Auto) Lymph # (Auto) [place] # (Auto) Eos # (Auto) Baso # (Auto) WBC Differential Differential Comment PT 14.8 H INR 1.5 APTT Fibrinogen Puncture Site Art line Patient Temperature 98.6 O2 Saturation 98 ABG pH 7.18 L* ABG pCO2 40 ABG pO2 396 H ABG HCO3 14 L* ABG O2 Content 17.8 ABG Base Excess -12.6 L ABG Methemoglobin 1.2 Mars Test Hemoglobin 12.2 Carboxyhemoglobin 0.2 O2 Delivery Device Ventilator Vent Setting 16/500/peep 5/it 1.0 Inspired O2 100 Critical Value Yes Sodium Potassium Chloride Carbon Dioxide Anion Gap BUN Creatinine Estimated GFR POC Glucose Random Glucose Lactic Acid 12.5 H* Calcium Magnesium Total Bilirubin Direct Bilirubin Indirect Bilirubin AST ALT Alkaline Phosphatase Total Protein Albumin Triglycerides Cholesterol LDL Cholesterol, Calc HDL Cholesterol Cholesterol/HDL Ratio Lipase Carcinoembryonic Ag CA 19-9 Antigen IgA Endomysial Ab Titer Endomysial IgA Ab Tiss Transglutamin IgG Tiss Transglutamin IgA Celiac Disease Interp 11/23/17 08:10 WBC RBC Hgb Hct MCV MCH MCHC RDW Plt Count MPV Neut % (Auto) Lymph % (Auto) [place] % (Auto) Eos % (Auto) Baso % (Auto) Neut # (Auto) Lymph # (Auto) [place] # (Auto) Eos # (Auto) Baso # (Auto) WBC Differential Differential Comment PT INR APTT Fibrinogen Puncture Site Art line Patient Temperature 98.6 O2 Saturation 94 ABG pH 7.26 L* ABG pCO2 38 ABG pO2 91 ABG HCO3 17 L ABG O2 Content 19.0 ABG Base Excess -9.1 L ABG Methemoglobin 1.2 Mars Test Present Hemoglobin 14.3 Carboxyhemoglobin 0.3 O2 Delivery Device Ventilator Vent Setting Prvc16/500/1.0/+5 Inspired O2 50 Critical Value Yes Sodium Potassium Chloride Carbon Dioxide Anion Gap BUN Creatinine Estimated GFR POC Glucose Random Glucose Lactic Acid Calcium Magnesium Total Bilirubin Direct Bilirubin Indirect Bilirubin AST ALT Alkaline Phosphatase Total Protein Albumin Triglycerides Cholesterol LDL Cholesterol, Calc HDL Cholesterol Cholesterol/HDL Ratio Lipase Carcinoembryonic Ag CA 19-9 Antigen IgA Endomysial Ab Titer Endomysial IgA Ab Tiss Transglutamin IgG Tiss Transglutamin IgA Celiac Disease Interp - Imaging Impressions Cholangiopancreatography MRI 11/22/17 00:00 CONCLUSION: 1. Markedly dilated stomach filled with fluid. No evidence of biliary tree dilatation. Chest X-Ray 11/23/17 05:39 CONCLUSION: Pneumoperitoneum. ET tube in a low position. This could be pulled back 2 cm. NG tube at the EG junction. This should be advanced. This information was relayed to Adeline patient's nurse. <Karen Oliveira - Last Filed: 11/23/17 08:52> - Labs CBC & Chem 7: 11/23/17 11:40 11/23/17 11:40 Laboratory Results - last 24 hr 11/22/17 11/22/17 11/22/17 18:17 18:17 18:17 WBC RBC Hgb Hct MCV MCH MCHC RDW Plt Count MPV Neut % (Auto) Lymph % (Auto) [place] % (Auto) Eos % (Auto) Baso % (Auto) Neut # (Auto) Lymph # (Auto) [place] # (Auto) Eos # (Auto) Baso # (Auto) WBC Differential Differential Comment PT INR APTT Fibrinogen Puncture Site Patient Temperature O2 Saturation ABG pH ABG pCO2 ABG pO2 ABG HCO3 ABG O2 Content ABG Base Excess ABG Methemoglobin Mars Test Hemoglobin Carboxyhemoglobin O2 Delivery Device Vent Setting Inspired O2 Critical Value Sodium Potassium Chloride Carbon Dioxide Anion Gap BUN Creatinine Estimated GFR POC Glucose Random Glucose Lactic Acid Calcium Prot Corrected Calcium Magnesium Total Bilirubin Direct Bilirubin Indirect Bilirubin AST ALT Alkaline Phosphatase Total Protein Albumin Lipase Carcinoembryonic Ag 0.4 CA 19-9 Antigen 4.8 IgA Cancelled Endomysial Ab Titer Cancelled Endomysial IgA Ab Cancelled Tiss Transglutamin IgG Cancelled Tiss Transglutamin IgA Cancelled Celiac Disease Interp Cancelled 11/23/17 11/23/17 11/23/17 02:19 04:02 04:50 WBC 6.7 RBC 4.29 L Hgb 13.3 D Hct 41.3 MCV 96.2 MCH 30.9 MCHC 32.2 RDW 15.2 Plt Count 128 L MPV 10.0 Neut % (Auto) 83.9 H Lymph % (Auto) 13.3 [place] % (Auto) 2.4 Eos % (Auto) 0.2 Baso % (Auto) 0.2 Neut # (Auto) 5.6 Lymph # (Auto) 0.9 L [place] # (Auto) 0.2 Eos # (Auto) 0.0 Baso # (Auto) 0.0 WBC Differential . Differential Comment Auto diff final PT INR APTT Fibrinogen Puncture Site Patient Temperature O2 Saturation ABG pH ABG pCO2 ABG pO2 ABG HCO3 ABG O2 Content ABG Base Excess ABG Methemoglobin Mars Test Hemoglobin Carboxyhemoglobin O2 Delivery Device Vent Setting Inspired O2 Critical Value Sodium 147 H Potassium 4.0 Chloride 110 H Carbon Dioxide 23.3 Anion Gap 14 BUN 18 Creatinine 2.41 H Estimated GFR 35 L POC Glucose 91 Random Glucose 260 H Lactic Acid Calcium 9.4 Prot Corrected Calcium Magnesium 3.3 H Total Bilirubin Direct Bilirubin Indirect Bilirubin AST ALT Alkaline Phosphatase Total Protein Albumin Lipase Carcinoembryonic Ag CA 19-9 Antigen IgA Endomysial Ab Titer Endomysial IgA Ab Tiss Transglutamin IgG Tiss Transglutamin IgA Celiac Disease Interp 11/23/17 11/23/17 11/23/17 04:50 04:50 04:50 WBC 7.0 RBC 4.28 L Hgb 13.3 Hct 40.5 MCV 94.7 MCH 31.1 MCHC 32.8 RDW 14.9 Plt Count 130 L MPV 9.3 Neut % (Auto) Lymph % (Auto) [place] % (Auto) Eos % (Auto) Baso % (Auto) Neut # (Auto) Lymph # (Auto) [place] # (Auto) Eos # (Auto) Baso # (Auto) WBC Differential Differential Comment PT INR APTT 27.1 Fibrinogen 201 L Puncture Site Patient Temperature O2 Saturation ABG pH ABG pCO2 ABG pO2 ABG HCO3 ABG O2 Content ABG Base Excess ABG Methemoglobin Mars Test Hemoglobin Carboxyhemoglobin O2 Delivery Device Vent Setting Inspired O2 Critical Value Sodium 156 H* Potassium 3.6 Chloride 118 H D Carbon Dioxide 18.2 L Anion Gap 20 H BUN 18 Creatinine 2.54 H Estimated GFR 33 L POC Glucose Random Glucose 96 D Lactic Acid Calcium 8.2 L D Prot Corrected Calcium Magnesium Total Bilirubin 1.8 H Direct Bilirubin 0.4 H Indirect Bilirubin 1.4 H AST 270 H ALT 260 H Alkaline Phosphatase 59 Total Protein 5.4 L D Albumin 3.0 L D Lipase 5260 H Carcinoembryonic Ag CA 19-9 Antigen IgA Endomysial Ab Titer Endomysial IgA Ab Tiss Transglutamin IgG Tiss Transglutamin IgA Celiac Disease Interp 11/23/17 11/23/17 11/23/17 04:50 04:50 04:50 WBC RBC Hgb Hct MCV MCH MCHC RDW Plt Count MPV Neut % (Auto) Lymph % (Auto) [place] % (Auto) Eos % (Auto) Baso % (Auto) Neut # (Auto) Lymph # (Auto) [place] # (Auto) Eos # (Auto) Baso # (Auto) WBC Differential Differential Comment PT 14.8 H INR 1.5 APTT Fibrinogen Puncture Site Patient Temperature O2 Saturation ABG pH ABG pCO2 ABG pO2 ABG HCO3 ABG O2 Content ABG Base Excess ABG Methemoglobin Mars Test Hemoglobin Carboxyhemoglobin O2 Delivery Device Vent Setting Inspired O2 Critical Value Sodium 156 H* Potassium 3.6 Chloride 118 H Carbon Dioxide 18.5 L Anion Gap 20 H BUN 18 Creatinine 2.57 H Estimated GFR 33 L POC Glucose Random Glucose 97 Lactic Acid 12.5 H* Calcium 8.2 L Prot Corrected Calcium Magnesium Total Bilirubin Direct Bilirubin Indirect Bilirubin AST ALT Alkaline Phosphatase Total Protein Albumin Lipase Carcinoembryonic Ag CA 19-9 Antigen IgA Endomysial Ab Titer Endomysial IgA Ab Tiss Transglutamin IgG Tiss Transglutamin IgA Celiac Disease Interp 11/23/17 11/23/17 11/23/17 04:50 05:45 08:10 WBC RBC Hgb Hct MCV MCH MCHC RDW Plt Count MPV Neut % (Auto) Lymph % (Auto) [place] % (Auto) Eos % (Auto) Baso % (Auto) Neut # (Auto) Lymph # (Auto) [place] # (Auto) Eos # (Auto) Baso # (Auto) WBC Differential Differential Comment PT INR APTT Fibrinogen Puncture Site Art line Art line Patient Temperature 98.6 98.6 O2 Saturation 98 94 ABG pH 7.18 L* 7.26 L* ABG pCO2 40 38 ABG pO2 396 H 91 ABG HCO3 14 L* 17 L ABG O2 Content 17.8 19.0 ABG Base Excess -12.6 L -9.1 L ABG Methemoglobin 1.2 1.2 Mars Test Present Hemoglobin 12.2 14.3 Carboxyhemoglobin 0.2 0.3 O2 Delivery Device Ventilator Ventilator Vent Setting 16/500/peep 5/it 1.0 Prvc16/500/1.0/+5 Inspired O2 100 50 Critical Value Yes Yes Sodium Potassium Chloride Carbon Dioxide Anion Gap BUN Creatinine Estimated GFR POC Glucose Random Glucose Lactic Acid Calcium Prot Corrected Calcium Magnesium Total Bilirubin Direct Bilirubin Indirect Bilirubin AST ALT Alkaline Phosphatase Total Protein Albumin Lipase 4920 H Carcinoembryonic Ag CA 19-9 Antigen IgA Endomysial Ab Titer Endomysial IgA Ab Tiss Transglutamin IgG Tiss Transglutamin IgA Celiac Disease Interp 11/23/17 11/23/17 11/23/17 11:06 11:40 11:40 WBC 0.8 L D RBC 4.52 Hgb 13.8 Hct 42.6 MCV 94.3 MCH 30.7 MCHC 32.5 RDW 14.8 Plt Count 93 L MPV 9.2 Neut % (Auto) Lymph % (Auto) [place] % (Auto) Eos % (Auto) Baso % (Auto) Neut # (Auto) Lymph # (Auto) [place] # (Auto) Eos # (Auto) Baso # (Auto) WBC Differential Differential Comment PT INR APTT Fibrinogen Puncture Site Patient Temperature O2 Saturation ABG pH ABG pCO2 ABG pO2 ABG HCO3 ABG O2 Content ABG Base Excess ABG Methemoglobin Mars Test Hemoglobin Carboxyhemoglobin O2 Delivery Device Vent Setting Inspired O2 Critical Value Sodium 155 H Potassium 3.7 Chloride 126 H D Carbon Dioxide 21.4 Anion Gap 8 BUN 20 H Creatinine 2.03 H Estimated GFR 43 L POC Glucose Random Glucose 72 L Lactic Acid 5.5 H* Calcium 6.3 L* D Prot Corrected Calcium 8.3 L Magnesium Total Bilirubin 1.7 H Direct Bilirubin Indirect Bilirubin AST 702 H ALT 539 H Alkaline Phosphatase 31 L Total Protein 3.4 L D Albumin 2.0 L D Lipase Carcinoembryonic Ag CA 19-9 Antigen IgA Endomysial Ab Titer Endomysial IgA Ab Tiss Transglutamin IgG Tiss Transglutamin IgA Celiac Disease Interp - Imaging Impressions Cholangiopancreatography MRI 11/22/17 00:00 CONCLUSION: 1. Markedly dilated stomach filled with fluid. No evidence of biliary tree dilatation. Chest X-Ray 11/23/17 05:39 CONCLUSION: Pneumoperitoneum. ET tube in a low position. This could be pulled back 2 cm. NG tube at the EG junction. This should be advanced. This information was relayed to Adeline patient's nurse. <Maddi King - Last Filed: 11/23/17 15:18> Assessment and Plan (1) Bowel obstruction Status: Acute Code(s): K56.609 - Unspecified intestinal obstruction, unspecified as to partial versus complete obstruction - Plan Mr. Marshall is a 47-year-old male patient who presented to the emergency room this morning with complaint of severe generalized abdominal pain which he describes as cramping. associated with nausea and emesis. Patient states he has no medical history, no surgical history, and no known drug allergies. Our service has been consulted to evaluate possible pancreatic/duodenal mass. Patient states onset of symptoms started last night after he ate a large meal at the [employer] restaurant. Patient denies ever having pain like this before and states he had at least 10-15 episodes of vomiting. Patient denies fever, diarrhea, constipation. States pain is constant and there are no alleviating or aggravating factors.He reports having a soft brown BM of "normal " quantity 2 days ago and none since noted. States he normally has 1-2 soft brown bowel movements daily. Patient unsure if he has had been able to pass gas over the last 24 hours. Reports he was feeling well without any symptoms of abdominal pain nausea or vomiting prior to today. Patient has no history of abdominal obstruction or abdominal surgical procedures. Patient denies any blood in emesis or noted bleeding in stool. Denies ever having had EGD or colonoscopy in the past. Denies any use of NSAIDs or blood thinners. Denies any known family history for any gastrointestinal disorders. Denies use of tobacco or alcohol. Upon arrival to emergency room patient had NG placed with documented drainage of over a liter of yellow fluid. Patient asked for NG to be removed due to discomfort but is now willing to have same replaced. Pancreatic/duodenal mass/obstruction CT abdomen and pelvis done on admission revealed the following findings : Examination of the lung bases demonstrates no abnormality. No pleural fluid is identified. No pulmonary nodules are present. The liver and spleen are normal in size and no focal defects are identified. There is severe gastric distention to the level of the third portion of the duodenum where there is decompressed distal duodenum and small bowel. There is a possible mass in the pancreas as etiology. Benign or malignant stricture would be considered and endoscopy is recommended to further evaluate this. The adrenal glands and kidneys appear normal bilaterally. No hydronephrosis or mass lesions are identified. Examination of the pelvis demonstrates no evidence of free fluid or pelvic mass. No abnormally enlarged inguinal or retroperitoneal lymph nodes are present. The bladder is unremarkable. High-grade obstruction at the level of the third portion of the duodenum with massive gastric distention. There is equivocal mass in the pancreatic head. Endoscopy is recommended to evaluate the stricture. WBC count 12.1 hemoglobin 15.7 hematocrit 48.1 total bilirubin 2.8 AST 22 ALT 34 alk phos 63 lipase 3687 CA 199 antigen 5.0. 11/22/2017-NG tube placed, immediate return of estimated 700-800 cc of bile colored drainage. Patient reporting much less abdominal discomfort. 11/23/2017-approximately 0400 patient underwent cardiac arrest, was intubated via ET tube and mechanically ventilated. Patient is now postoperative exploratory laparotomy with large mid abdominal surgical wound attached to suction. Per surgery, there was a large amount of food found in stomach. Oral gastric as well as nasogastric in place attached to low wall suction draining brown fluid. Dr. Gudino at bedside, plan is for patient to return to surgery on Sunday for possible subtotal gastrectomy; at which time he will attempt to visualize stomach and duodenum intraoperatively. Plan -NG/OG -Endoscopy when patient stable -Immediate care as per general surgery postoperatively -Continue to monitor labs/lipase -Supportive care -Further recommendations to follow based on patient status and findings This patient has been seen by myself and Dr. King and this note is written on her behalf - Attending Attestation Dr. King <Karen Oliveira - Last Filed: 11/23/17 08:52> (1) Bowel obstruction Status: Acute Code(s): K56.609 - Unspecified intestinal obstruction, unspecified as to partial versus complete obstruction - Attending Attestation seen, examined events reviewed discussed with -possible intraop EGD over the weekend MRCP done no pathology in biliary and pancreatic area noted Unclear what is causing obstruction in third portion of duodenum -hopefully we will be able to do egd /enteroscopy to evaluate now that stomach is empty and decompressed <Maddi King - Last Filed: 11/23/17 15:18>
--- NOTE | 2017-11-23 08:59 | P.PNADD ---
Addendum to Inpatient Note Reason for Addendum: Corrected Documentation (Pt is critically ill developed resp failure required intubation. Will defer to CCM)
[2017-11-23] MEDS: Pantoprazole Inj 40 MG Vial IV.PUSH SCH (10:19)
--- NOTE | 2017-11-23 10:59 | MP ---
cc: Martin Gudino MD DATE OF OPERATION: 11/23/2017 PREOPERATIVE DIAGNOSES: 1. Abdominal sepsis, status post cardiac arrest. 2. Abdominal compartment syndrome. POSTOPERATIVE DIAGNOSES: 1. Abdominal sepsis, status post cardiac arrest. 2. Massive gastric distention with perforation secondary to distention. 3. Massive intra-abdominal contamination of gross food particles. 4. Ischemic changes proximal two-thirds of stomach. 5. Tension pneumoperitoneum secondary to gastric perforation. PROCEDURES PERFORMED: 1. Exploratory laparotomy. 2. Primary repair of a gastrotomy with stapler (TA60). 3. Removal of gross food particles and a massive contamination with washout with 6 liters normal saline. SURGEON: Martin Gudino MD ANESTHESIA: General endotracheal. COMPLICATIONS: None. INTRAOPERATIVE FINDINGS: The patient had basically a tension pneumoperitoneum causing compartment syndrome contributing to his cardiac arrest. When we decompressed the abdomen, a huge amount of air came out. There was massive contamination with gross food particles all throughout the abdominal cavity. There was about a 1 cm hole in the anterior stomach that was likely perforated likely secondary to gastric distention. There was a massive amount of gross food particles within the stomach that we had to remove, both with pool sucker and with a sponge stick. Upon releasing the abdominal cavity, the patient's vital signs immediately improved. INDICATIONS FOR PROCEDURE: Mr. Marshall is a pleasant 47-year-old -[place] male who presented to the emergency department yesterday with abdominal distention. He was worked up and found to have a gastric outlet obstruction, likely in the second to third portion of the duodenum. He was seen in Dr. Nick Wellington. NG tube was placed for the massive stomach and he was somewhat decompressed. Apparently over the evening, he decompensated. He became tachycardic and was given a dose of metoprolol. He underwent a cardiac arrest. Dr. Nina Grant was called to the bedside, immediately evaluated and moved him down to the unit. Dr. Grant got an x-ray after the code and noted the patient had free air. Stat surgical consultation was requested. I came in immediately to evaluate the patient. Dr. Grant spoke with the patient's mother and explained her of this was an emergent procedure and he needed to go to the operating room immediately and the mother gave her verbal consent. DETAILS OF PROCEDURE: The patient was identified, brought to the operating room, placed supine on the operating table. After adequate general endotracheal anesthesia was achieved, the abdomen was prepped and draped in standard surgical fashion. Upper midline incision was made. Dissection was carried down through subcutaneous tissue to the midline fascia. Midline fascia was then incised sharply. Peritoneum was noted to be under significant tension. The peritoneum was then opened and a huge amount of air came out and the abdomen immediately decompressed. Abdomen was opened widely. Immediately, we noted massive intraperitoneal contamination of gastric contents. There was dark brown fluid and food particles all throughout the abdominal cavity. Immediately, we noted a large hole in the anterior stomach measuring about 1 cm in diameter. We stuck a pool sucker in this and proceeded to get out about 2 liters of succuss entericus. Dr. Isaacs of Anesthesia placed a second NG tube and with the 2 NG tubes, he got out 2 liters of succuss entericus. Once the stomach was completely decompressed, we then closed the gastrotomy using a TA60 stapling device. It should be noted the stomach had significant ischemic changes of the proximal two-thirds and was quite thin due to the massive distention. Once we did this, the contamination was controlled. Brief inspection of the stomach, also revealed another serosal tear just proximal to the pylorus, which was not full thickness, but was oversewn with 3-0 GI silks. Once we did this, attention was now directed to removal of the contamination. Using sequential 5 liters of normal saline solution we washed out and evacuated the entire abdominal cavity until the effluent was noted to be clear. Once we did this, we briefly explored the abdomen. As stated, the proximal two-thirds of the stomach was medrano and appeared to have ischemic changes. Distal third of the stomach appeared pink and viable. Both the NG tubes were palpated within the stomach. Because the patient had suffered a cardiac arrest and was still critically ill, I elected not to perform a subtotal gastrectomy at this time. I elected to perform a damage control procedure in which we closed the hole, washed him out and we will place a temporary abdominal closure device. We will aggressively resuscitate him and bring him back to the operating room in 48 hours to see if the stomach recovers or if he will require a subtotal gastrectomy. All lap and sponge counts were deemed correct. The abdominal cavity was washed out one more time with saline solution and it was noted to be clear. No other food particles were noted. No other gross abnormalities were noted within the abdominal cavity. A 1010 drape was placed over the bowel. A laparotomy pad was then placed over the subcutaneous tissue. A ZAINAB drain was placed on the laparotomy pad and the abdomen was closed with an Ioban. The patient tolerated the procedure well. Vital signs significantly improved during the case. There will be a planned reexploration in 48 hours. The case was discussed with Dr. Wellington and he is aware and will make arrangements for the patient's reexploration. Dr. Grant was notified of the patient's status and his clinical improvement in vital signs. He will return to the ICU. Martin MD CORY Mcwilliams/yevgeniy , 08:08 AM , 08:19 AM
[2017-11-23] MEDS ORDERED: DOPamine 800 MG/500 ML Premix 800 MG/500 ML PLAST..BAG IV.CONT ONE (11:38)
[2017-11-23] MEDS ORDERED: Sodium Bicarbonate 8.4% Inj 50 MEQ/50 ML Syringe IV.PUSH ONE (11:38)
[2017-11-23] MEDS ORDERED: Calcium Chloride Inj 1 GM/10 ML Syringe IV.PUSH ONE (11:38)
[2017-11-23 12:17] LABS: Hematocrit 42.6 % (39.0-51.0); Hemoglobin 13.8 gm/dL (13.0-17.0); Mean Corpuscular HGB Conc 32.5 % (32.0-36.0); Mean Corpuscular Hemoglobin 30.7 pg (27.0-34.0); Mean Corpuscular Volume 94.3 fL (80.0-100.0); Mean Platelet Volume 9.2 fL (7.0-11.0); Platelet Count 93 th/mm3 (150-450); Red Blood Count 4.52 mil/mm3 (4.50-5.90); Red Cell Distribution Width 14.8 % (11.6-17.2); White Blood Count 0.8 th/mm3 (4.0-11.0)
[2017-11-23 12:48] LABS: Calcium 6.3 mg/dL (8.5-10.1); Carbon Dioxide 21.4 meq/L (21.0-32.0); Potassium 3.7 meq/L (3.5-5.1); Total Protein 3.4 g/dL (6.4-8.2)
[2017-11-23] MEDS: Vasopressin Inj 40 UNIT in Sodium Chlor 0.9% Inj 98 ML IV.CONT SCH (13:32)
[2017-11-23] MEDS: Albumin Human 5% Inj 250 ML IV.SIG SCH ×2 (13:33→17:17)
[2017-11-23] MEDS: Insulin NovoLOG Aspart Correctional Sugar Inj SQ SCH (13:38)
[2017-11-23] MEDS: Sodium Chloride 0.9% 2 ML Flush BID IV.FLUSH SCH ×2 (13:39→23:17)
[2017-11-23] MEDS: Oral Hygiene Kit OROPHARYNG SCH ×2 (13:39→17:58)
[2017-11-23] MEDS ORDERED: fentaNYL Citrate Inj 100 MCG/2 ML Ampul IV.PUSH STA (14:34)
[2017-11-23 15:24] LABS: ABG Base Excess -6.8 mmol/L (-2-2); ABG PCO2 46 mmHg (38-42); ABG PO2 70 mmHg (61-120)
[2017-11-23 16:05] LABS: Hemoglobin A1c 5.5 % (4.3-6.0)
[2017-11-23 17:02] LABS: Carcinoembryonic Antigen 0.4 ng/mL (0.2-5.0)
[2017-11-23] MEDS ORDERED: Calcium Chloride Inj 1 GM/10 ML Syringe ONE (17:26)
[2017-11-23] MEDS ORDERED: Calcium Gluconate Inj 2 GM in Sodium Chlor 0.9% Inj 100 ML IV.SIG ONE (18:00)
[2017-11-23 18:03] LABS: Hematocrit 44.9 % (39.0-51.0); Hemoglobin 14.7 gm/dL (13.0-17.0); Mean Corpuscular HGB Conc 32.8 % (32.0-36.0); Mean Corpuscular Hemoglobin 30.7 pg (27.0-34.0); Mean Corpuscular Volume 93.7 fL (80.0-100.0); Mean Platelet Volume 10.1 fL (7.0-11.0); Platelet Count 97 th/mm3 (150-450); Red Blood Count 4.79 mil/mm3 (4.50-5.90); White Blood Count 1.7 th/mm3 (4.0-11.0)
[2017-11-23 18:36] LABS: Albumin 2.5 g/dL (3.4-5.0); Calcium 6.6 mg/dL (8.5-10.1); Carbon Dioxide 21.4 meq/L (21.0-32.0); Potassium 3.8 meq/L (3.5-5.1); Total Protein 4.1 g/dL (6.4-8.2)
[2017-11-23] MEDS: Hydrocortisone Sod Succinate 100 MG Vial IV.PUSH SCH (18:39)
[2017-11-23] MEDS: fentaNYL 10 mcg/mL Premix Drip 2,500 MCG/250 ML BAG IV.SIG PRN (19:00)
[2017-11-23] MEDS: Chlorhexidine 0.12% Oral Kit 15 ML UDC OROPHARYNG SCH (20:28)
[2017-11-23] MEDS: Sodium Bicarbonate 8.4% Inj 150 MEQ in Water for Inj, Sterile 850 ML IV.CONT SCH (20:35)
[2017-11-23] MEDS: Phenylephrine Inj 80 MG in Dextrose 5% in Water Inj 492 ML IV.CONT PRN ×2 (20:35)
[2017-11-23] MEDS ORDERED: Albumin Human 5% Inj 500 ML IV.SIG ONE (21:06)
[2017-11-23] MEDS: Sod Chloride 0.9% Inj 1,000 ML IV.SIG SCH ×2 (21:35→22:53)
--- NOTE | 2017-11-23 21:46 | ECG ---
Date Performed: 11/23/2017 Time Performed: 01:58:50 PTAGE: 47 years EKG: Sinus tachycardia Left ventricular hypertrophy with secondary ST-T change Abnormal ECG NO PREVIOUS TRACING DOCTOR: Kayden Moncada Interpretating Date/Time 11/23/2017 21:44:49
[2017-11-24] MEDS: Oral Hygiene Kit OROPHARYNG SCH ×5 (00:20→23:19)
[2017-11-24] MEDS: Albumin Human 5% Inj 250 ML IV.SIG SCH ×5 (01:20→23:20)
[2017-11-24] MEDS: Hydrocortisone Sod Succinate 100 MG Vial IV.PUSH SCH ×5 (01:21→23:19)
[2017-11-24] MEDS: Piperacil/Tazo 2.25 GM Premix 50 ML IV.SIG SCH ×5 (01:21→23:20)
[2017-11-24] MEDS: Vasopressin Inj 40 UNIT in Sodium Chlor 0.9% Inj 98 ML IV.CONT SCH ×3 (04:08→19:03)
[2017-11-24] MEDS: Sodium Bicarbonate 8.4% Inj 150 MEQ in Water for Inj, Sterile 850 ML IV.CONT SCH (04:11)
[2017-11-24 04:36] LABS: Baso % (Auto) 0.1 % (0.0-2.0); Eos # (Auto) 0.1 th/mm3 (0.0-0.4); Eos % (Auto) 0.8 % (0.0-4.0); Hemoglobin 12.6 gm/dL (13.0-17.0); Lymph # (Auto) 0.4 th/mm3 (1.0-4.8); Lymph % (Auto) 4.8 % (9.0-44.0); Mean Corpuscular HGB Conc 33.1 % (32.0-36.0); Mean Corpuscular Hemoglobin 31.2 pg (27.0-34.0); Mean Corpuscular Volume 94.4 fL (80.0-100.0); Mean Platelet Volume 9.7 fL (7.0-11.0); Mono # (Auto) 0.2 th/mm3 (0.0-0.9); Mono % (Auto) 2.6 % (0.0-8.0); Neut # (Auto) 6.9 th/mm3 (1.8-7.7); Neut % (Auto) 91.7 % (16.0-70.0); Platelet Count 79 th/mm3 (150-450); Red Blood Count 4.03 mil/mm3 (4.50-5.90); Red Cell Distribution Width 15.4 % (11.6-17.2); White Blood Count 7.5 th/mm3 (4.0-11.0)
[2017-11-24 05:19] LABS: Calcium 7.1 mg/dL (8.5-10.1); Potassium 4.8 meq/L (3.5-5.1); Total Protein 4.5 g/dL (6.4-8.2)
--- NOTE | 2017-11-24 05:54 | XR ---
EXAM DATE: 11/24/2017 5:00 AM EDT AGE/SEX: 47 years / Male INDICATIONS: Respiratory failure. CLINICAL DATA: This is the patient's subsequent encounter. Patient reports that signs and symptoms h ave been present for 2 days and indicates a pain score of Nonresponsive. MEDICAL/SURGICAL HISTORY: None. None. COMPARISON: [facility] – [place]ST 1V SINGLE AP, 11/23/2017. . FINDINGS: A single AP view of the chest demonstrates bilateral perihilar and left lower lobe airspace disease. Endotracheal tube and nasogastric tube stable position. Right jugular central line stable position.. Osseous structures are intact. CONCLUSION: Bilateral perihilar and left lower lobe airspace disease Electronically signed by: Osman White MD 11/24/2017 5:52 AM EDT
[2017-11-24] MEDS: Insulin NovoLOG Aspart Correctional Sugar Inj SQ SCH ×7 (06:29→23:16)
--- NOTE | 2017-11-24 07:05 | P.PNCC ---
Subjective Subjective Remarks/Hospital Course: 47-year-old -[place] male with reportedly no past medical or past surgical history who was admitted to hospitalist service 11/22/17 after presenting with abdominal pain, nausea, vomiting. He had CT abd/pelvis with massive gastric distention. NG tube had been placed. I was called to patient's bedside for CODE BLUE PEA arrest. CPR was ongoing and patient had massive abdominal distension and gastric regurgitant in the airway. He was emergently intubated and large amount of gastric secretions suctioned from oropharynx. After 21 minutes of CPR, ROSC was obtained and he was profoundly hypotensive. Continued aggressive fluid resuscitation and initiated dopamine. He was transferred to [facility] where CVL and R radial art line were placed and he was given 7 L of crystalloid and albumin. CXR demonstrated pneumoperitoneum and Dr. Martin Gudino was called emergently and he immediately contacted OR for emergent ex lap. He had intraabdominal hypertension with IAP of 40 mmHg, though fortunately was able to be ventilated adequately after rocuronium 50 mg IV and was transferred to OR. Subjective: 11/24 Dr. Gudino took to the operating room early in the morning on 11/23 and discovered tension pneumoperitoneum, massive gastric distension, ischemia of the proximal 2/3 of the stomach and large gastric perforation with massive intraperitoneal contamination with food particles. Dr. Isaacs placed 2 NGT and decompressed 2 L of succus. Patient had initial improvement in vital signs in the immediate postoperative period, however he subsequently became hypotensive requiring upward titration of levophed and addition of vasopressin and stress dose hydrocortisone. He remains on levophed 10 mcg/min, neosynephrine 80 mcg/ min, vasopressin 0.04 units/min with overall vasopressor requirement weaning overnight. He is oliguric and creatinine is continuing to climb. He was given 2 L of crystalloid and albumin overnight. He does have significant fluid losses with combination of abdominal dressing and NGT output, so I will give an additional L of crystalloid now to monitor hourly response as he certainly does not appear volume overloaded. Nonetheless Flotrac numbers are suggesting adequate volume status and we may be seeing the consequence of ischemic ATN. May ultimately require HD, however not at this time. Abdomen remains open and plan is to re-explore 11/25. Objective Vital Signs / I&O: Vital Signs 11/23/17 08:00 11/23/17 08:30 11/23/17 08:32 Temperature Pulse Rate 107 H 102 H Respiratory Rate 16 16 Blood Pressure 99/56 L Pulse Oximetry 98 97 97 11/23/17 08:45 11/23/17 09:00 11/23/17 09:15 Temperature Pulse Rate 105 H 103 H 105 H Respiratory Rate 17 16 16 Blood Pressure Pulse Oximetry 98 99 98 11/23/17 09:30 11/23/17 09:45 11/23/17 10:00 Temperature Pulse Rate 107 H 110 H 112 H Respiratory Rate 16 16 16 Blood Pressure Pulse Oximetry 98 97 97 11/23/17 10:15 11/23/17 10:30 11/23/17 10:45 Temperature Pulse Rate 119 H 114 H 118 H Respiratory Rate 16 16 16 Blood Pressure Pulse Oximetry 94 L 95 93 L 11/23/17 11:00 11/23/17 11:15 11/23/17 11:30 Temperature Pulse Rate 123 H 115 H 115 H Respiratory Rate 16 16 16 Blood Pressure Pulse Oximetry 92 L 88 L 95 11/23/17 11:32 11/23/17 11:45 11/23/17 12:00 Temperature Pulse Rate 114 H 116 H Respiratory Rate 16 16 16 Blood Pressure 110/72 Pulse Oximetry 95 97 97 11/23/17 12:12 11/23/17 12:15 11/23/17 12:30 Temperature Pulse Rate 118 H 117 H 122 H Respiratory Rate 16 16 Blood Pressure Pulse Oximetry 95 93 L 11/23/17 12:45 11/23/17 13:00 11/23/17 13:15 Temperature Pulse Rate 123 H 126 H 125 H Respiratory Rate 16 16 16 Blood Pressure Pulse Oximetry 93 L 94 L 95 11/23/17 13:30 11/23/17 13:45 11/23/17 14:00 Temperature Pulse Rate 126 H 129 H 131 H Respiratory Rate 16 16 Blood Pressure Pulse Oximetry 94 L 94 L 93 L 11/23/17 14:12 11/23/17 14:15 11/23/17 14:30 Temperature Pulse Rate 146 H 133 H 146 H Respiratory Rate 16 141 H Blood Pressure Pulse Oximetry 92 L 88 L 11/23/17 14:45 11/23/17 15:00 11/23/17 15:15 Temperature Pulse Rate 149 H 140 H 136 H Respiratory Rate 141 H 16 16 Blood Pressure Pulse Oximetry 86 L 90 L 92 L 11/23/17 15:30 11/23/17 15:45 11/23/17 16:00 Temperature 100.3 F H Pulse Rate 139 H 134 H 138 H Respiratory Rate 22 16 16 Blood Pressure 83/63 L Pulse Oximetry 96 93 L 96 11/23/17 16:15 11/23/17 16:17 11/23/17 16:30 Temperature Pulse Rate 144 H 147 H Respiratory Rate 13 16 9 L Blood Pressure Pulse Oximetry 95 95 96 11/23/17 16:45 11/23/17 17:00 11/23/17 17:15 Temperature Pulse Rate 142 H 141 H 136 H Respiratory Rate 8 L 19 20 Blood Pressure Pulse Oximetry 97 98 100 11/23/17 17:30 11/23/17 17:45 11/23/17 18:00 Temperature Pulse Rate 134 H 116 H 117 H Respiratory Rate 16 17 Blood Pressure Pulse Oximetry 100 100 100 11/23/17 19:30 11/23/17 20:00 11/23/17 20:10 Temperature 100.1 F H Pulse Rate 132 H Respiratory Rate 16 16 16 Blood Pressure Pulse Oximetry 98 99 11/23/17 22:00 11/24/17 00:00 11/24/17 00:08 Temperature 99.4 F Pulse Rate 111 H 106 H Respiratory Rate 16 16 Blood Pressure Pulse Oximetry 98 96 11/24/17 02:00 11/24/17 04:00 11/24/17 04:04 Temperature 99.2 F Pulse Rate 102 H 95 H Respiratory Rate 16 16 Blood Pressure Pulse Oximetry 100 100 11/24/17 06:00 Temperature Pulse Rate 98 H Respiratory Rate Blood Pressure Pulse Oximetry Intake & Output 11/23/17 11/24/17 11/24/17 18:59 06:59 18:59 Intake Total 5950 / 5950 5350 / 5350 Output Total 1350 / 1350 950 / 950 Balance 4600 / 4600 4400 / 4400 Weight 90.1 kg Intake: IV 350 / 350 5350 / 5350 LR 1000 mL Inj 1,000 ML @ 150 1000 / 1000 mls/hr IV.CONT .Q6H40M COLE Rx#: [id number] Sodium Bicarbonate 8.4% Inj 150 1000 / 1000 MEQ In Sterile Water for Inj 850 ML @ 150 mls/hr IV.CONT . Q6H40M COLE Rx#:[id number] Pitressin Inj 40 UNIT In NS Inj 200 / 200 98 ML @ 0.04 UNITS/MIN 6 mls/ hr IV.CONT CONT COLE Rx#: [id number] Buminate 5% Inj 250 ML @ 250 250 / 250 500 / 500 mls/hr IV.SIG Q6HR COLE Rx#: [id number] Levophed-Dextrose 4 mg/250 ml 500 / 500 Drip 4 mg In 250 ml @ 2 MCG/MIN 7.5 mls/hr IV.SIG TITRATE PRN Rx#:[id number] Zosyn 2.25 GM Premix 50 ML @ 100 / 100 150 / 150 100 mls/hr IV.SIG Q6H COLE Rx#: [id number] NS Inj 1,000 ML @ Wide Open IV. 1999 SIG [facility] Rx#:[id number] Anesthesia Amount 1600 / 1600 Other 4000 / 4000 Output: Estimated Blood Loss 50 / 50 Urine Amount (Catheter) 200 / 200 150 / 150 Indwelling Urethral Catheter 200 / 200 150 / 150 Gastric Drainage 600 / 600 600 / 600 Left Nare 600 / 600 Orogastric Tube 0 / 0 Right Nare Nasogastric Tube 600 / 600 Wound Drainage 500 / 500 200 / 200 # 1 Abdomen 500 / 500 200 / 200 Other: Other Intake Source Saline Solution Result Diagrams: 11/24/17 04:20 11/24/17 04:20 Objective Remarks: Drips: Fentanyl 125 mcg/h Levophed 10 mcg/min Vasopressor 0.04units/min Bhavesh-Synephrine 80 mcg/min Sterile water with bicarb at 150 mL/h GENERAL: Critically ill male who is orotracheally intubated and has been on sedation. SKIN: Warm, dry and adequately perfused. HEAD: Atraumatic. Normocephalic. EYES: Pupils equal and round, pinpoint and sluggishly reactive. No scleral icterus. No injection or drainage. ENT: No nasal bleeding or discharge. Mucous membranes pink and moist. Orotracheally intubated. NECK: Trachea midline. No JVD. VASC: Right IJ central venous line in place with dressing clean/dry/intact. Left femoral art line in place with dressing clean/dry and intact with distal perfusion intact. CARDIOVASCULAR: Regular rate and rhythm, sinus rhythm on the monitor with rate in the 90s. No murmurs rubs or gallops. RESPIRATORY: Orotracheally intubated on PRVC tidal volume 500/rate 16/I time 1/ PEEP 12/FiO2 80%. Sats are 100% GASTROINTESTINAL: NGT and OGT in place to LIWS with most of output from NGT, coffee ground appearance. Abdomen open with dressing in place to suction, overall abdomen is soft, non tympanitic, hypoactive bowel sounds. MUSCULOSKELETAL: Extremities without clubbing, cyanosis, or edema. No obvious deformities. NEUROLOGICAL: Eyes open when stimulated, moves extremities spontaneously. Assessment and Plan - Problem List (1) Septic shock Code(s): A41.9 - Sepsis, unspecified organism; R65.21 - Severe sepsis with septic shock Status: Acute (2) Acute respiratory failure Code(s): J96.00 - Acute respiratory failure, unspecified whether with hypoxia or hypercapnia Status: Acute (3) Pneumoperitoneum Code(s): K66.8 - Other specified disorders of peritoneum Status: Resolved (4) Cardiac arrest Code(s): I46.9 - Cardiac arrest, cause unspecified Status: Resolved (5) JACLYN (acute kidney injury) Code(s): N17.9 - Acute kidney failure, unspecified Status: Acute (6) Transaminitis Code(s): R74.0 - Nonspecific elevation of levels of transaminase and lactic acid dehydrogenase [LDH] Status: Acute (7) Abdominal compartment syndrome Code(s): T79.A3XA - Traumatic compartment syndrome of abdomen, initial encounter Status: Resolved (8) Ischemic hepatitis Code(s): K75.9 - Inflammatory liver disease, unspecified Status: Acute (9) Hypernatremia Code(s): E87.0 - Hyperosmolality and hypernatremia Status: Acute (10) Hyperchloremic metabolic acidosis Code(s): E87.2 - Acidosis Status: Acute (11) Lactic acidemia Code(s): E87.2 - Acidosis Status: Acute (12) Leukopenia Code(s): D72.819 - Decreased white blood cell count, unspecified Status: Resolved - Assessment and Plan Plan: NEURO: Acute encephalopathy secondary to sepsis Unable to evaluate for ?anoxia at this time as he requires ongoing analgosedation for open abdomen and vent synchrony. Will evaluate more fully when stabilized. Fentanyl for analgosedation sedation. Target RASS -3 RESP: Acute respiratory failure Ventilator Bundle. PRVC PEEP 12 FIO2 80. Wean based on sats. CV: Septic shock Lactic acidemia On Flotrac for hemodynamic monitoring. Wean multiple pressors as tolerated for MAP >65. Levophed, phenylephrine, vasopressin. On stress dose hydrocortisone, wean when vasopressor requirement resolves. IVF as per below. GI: S/p Emergent Exlap, primary repair of gastrotomy, abdominal washout of large amount of intraperitoneal contamination by Dr. Gudino 11/23. Pneumoperitoneum, resolved Gastric outlet/SBO Intra-abdominal compartment syndrome, resolved NGT and OGT in place to LIWS. NPO. Open abdomen with tentative plan for re-exploration 11/25. There was discussion of possible EGD while patient in OR, GI states would defer at this time. Elevated lipase ?secondary to perforated viscous. GI following Transaminitis- likely secondary to sepsis/ischemic hepatitis. Trending down. FEN/RENAL: JACLYN with oliguria Hypernatremia Hyperchloremic acidosis and lactic acidosis Delgado in place, continue to monitor hourly urine output. Monitor electrolytes and replace as indicated. Will adjust fluids to include dextrose with D5 150 mill equivalents of bicarb at 150 mL/h. Monitor CMP daily. on 5% albumin q6 ID: Intraabdominal sepsis secondary to gastric perforation. Ex lap for source control per Dr. Gudino 11/23 Sent 2 sets of blood cultures 11/23 which are pending. Chest x-ray 11/24 shows left lower lobe infiltrate. Received empiric Zosyn 2.25 IV q6, Diflucan 400 mg load then 200 mg IV q24 hours , Vancomycin 1 gram IV x1. Will continue Zosyn and diflucan. HEME: DIC -- Thrombocytopenia, hypofibrinogenemia, prolonged INR. Anemia of critical illness Type and cross sent. F/u coags 11/25. ENDO: Acute hyperglycemia secondary to sepsis, resolved. On insulin sliding scale PROPH: SCD for DVT prophylaxis. Hold on pharmacologic DVT prophylaxis at this time due to presence of coffee ground output and anticipated return to OR. Protonix 40 mg IV daily for stress ulcer prophylaxis ACCESS: Right IJ central venous line placed 11/23 #2. L femoral art line placed in OR 11/23 #2. Right radial art line placed 11/23/17, discontinued . Full code Patient remains critically ill requiring multiple reevaluations for fluid and vasopressor management and ventilator changes. He is at high risk of further deterioration or . Discussed with bedside RN's from production supervisor off shift and dayshift and with RT. Critical care time 45 minutes exclusive of separately billable procedures. 11/23 I attempted to contact patient's mother. She is obviously confused and is not capacitated for medical decision-making. She was not able to provide any contact information for additional family. She tells me the patient's correct date of but insists that he is a high school senior, a teenager, who lives with her at home. She says he is not and has no children "because he is just a young boy". 11/24 Stepmother and father presented to hospital and I have updated them. (2) Acute respiratory failure Qualifiers: Respiratory failure complication: hypoxia Qualified Code(s): J96.01 - Acute respiratory failure with hypoxia
[2017-11-24] MEDS: Chlorhexidine 0.12% Oral Kit 15 ML UDC OROPHARYNG SCH ×2 (08:48→21:10)
[2017-11-24] MEDS: Sodium Chloride 0.9% 2 ML Flush BID IV.FLUSH SCH ×2 (08:48→23:01)
[2017-11-24] MEDS: Sodium Bicarbonate 8.4% Inj 150 MEQ in Dextrose 5% in Water Inj 850 ML IV.CONT SCH ×6 (08:49→23:00)
[2017-11-24 09:18] LABS: Burr Cells 1+; Dohle Bodies Present; Lymphocytes 3 % (9-44); Monocytes 2 % (0-8); Toxic Vacuolation Present
[2017-11-24] MEDS: Pantoprazole Inj 40 MG Vial IV.PUSH SCH (09:37)
--- NOTE | 2017-11-24 11:08 | P.PNGI ---
Subjective Interval history: Patient remains critically ill in the intensive care unit on ventilator management, pressors, abdomen semifirm NG/OG tube And dark bilious fluid. nonresponsive Physical Exam Vital signs: Vital Signs 11/23/17 11:00 11/23/17 11:15 11/23/17 11:30 Temperature Pulse Rate 123 H 115 H 115 H Respiratory Rate 16 16 16 Blood Pressure Pulse Oximetry 92 L 88 L 95 11/23/17 11:32 11/23/17 11:45 11/23/17 12:00 Temperature Pulse Rate 114 H 116 H Respiratory Rate 16 16 16 Blood Pressure 110/72 Pulse Oximetry 95 97 97 11/23/17 12:12 11/23/17 12:15 11/23/17 12:30 Temperature Pulse Rate 118 H 117 H 122 H Respiratory Rate 16 16 Blood Pressure Pulse Oximetry 95 93 L 11/23/17 12:45 11/23/17 13:00 11/23/17 13:15 Temperature Pulse Rate 123 H 126 H 125 H Respiratory Rate 16 16 16 Blood Pressure Pulse Oximetry 93 L 94 L 95 11/23/17 13:30 11/23/17 13:45 11/23/17 14:00 Temperature Pulse Rate 126 H 129 H 131 H Respiratory Rate 16 16 Blood Pressure Pulse Oximetry 94 L 94 L 93 L 11/23/17 14:12 11/23/17 14:15 11/23/17 14:30 Temperature Pulse Rate 146 H 133 H 146 H Respiratory Rate 16 141 H Blood Pressure Pulse Oximetry 92 L 88 L 11/23/17 14:45 11/23/17 15:00 11/23/17 15:15 Temperature Pulse Rate 149 H 140 H 136 H Respiratory Rate 141 H 16 16 Blood Pressure Pulse Oximetry 86 L 90 L 92 L 11/23/17 15:30 11/23/17 15:45 11/23/17 16:00 Temperature 100.3 F H Pulse Rate 139 H 134 H 138 H Respiratory Rate 22 16 16 Blood Pressure 83/63 L Pulse Oximetry 96 93 L 96 11/23/17 16:15 11/23/17 16:17 11/23/17 16:30 Temperature Pulse Rate 144 H 147 H Respiratory Rate 13 16 9 L Blood Pressure Pulse Oximetry 95 95 96 11/23/17 16:45 11/23/17 17:00 11/23/17 17:15 Temperature Pulse Rate 142 H 141 H 136 H Respiratory Rate 8 L 19 20 Blood Pressure Pulse Oximetry 97 98 100 11/23/17 17:30 11/23/17 17:45 11/23/17 18:00 Temperature Pulse Rate 134 H 116 H 117 H Respiratory Rate 16 17 Blood Pressure Pulse Oximetry 100 100 100 11/23/17 19:30 11/23/17 20:00 11/23/17 20:10 Temperature 100.1 F H Pulse Rate 132 H Respiratory Rate 16 16 16 Blood Pressure Pulse Oximetry 98 99 11/23/17 22:00 11/24/17 00:00 11/24/17 00:08 Temperature 99.4 F Pulse Rate 111 H 106 H Respiratory Rate 16 16 Blood Pressure Pulse Oximetry 98 96 11/24/17 02:00 11/24/17 04:00 11/24/17 04:04 Temperature 99.2 F Pulse Rate 102 H 95 H Respiratory Rate 16 16 Blood Pressure Pulse Oximetry 100 100 11/24/17 06:00 11/24/17 07:42 11/24/17 08:00 Temperature Pulse Rate 98 H 92 H Respiratory Rate 16 Blood Pressure Pulse Oximetry 100 11/24/17 10:00 Temperature Pulse Rate 87 Respiratory Rate Blood Pressure Pulse Oximetry Intake & Output 11/23/17 11/24/17 11/24/17 18:59 06:59 18:59 Intake Total 5950 / 5950 5350 / 5350 2350 / 2350 Output Total 1350 / 1350 950 / 950 Balance 4600 / 4600 4400 / 4400 2350 / 2350 Weight 90.1 kg Intake: IV 350 / 350 5350 / 5350 2350 / 2350 LR 1000 mL Inj 1,000 ML @ 150 1000 / 1000 mls/hr IV.CONT .Q6H40M [facility] Rx#: [id number] Sodium Bicarbonate 8.4% Inj 150 1000 / 1000 750 / 750 MEQ In Sterile Water for Inj 850 ML @ 150 mls/hr IV.CONT . Q6H40M [facility] Rx#:[id number] Pitressin Inj 40 UNIT In NS Inj 200 / 200 98 ML @ 0.04 UNITS/MIN 6 mls/ hr IV.CONT CONT [facility] Rx#: [id number] Buminate 5% Inj 250 ML @ 250 250 / 250 500 / 500 250 / 250 mls/hr IV.SIG Q6HR [facility] Rx#: [id number] Diflucan 200 mg Premix Bag 100 100 / 100 ML @ 100 mls/hr IV.SIG Q24H [facility] Rx#:[id number] LR 1000 mL Inj 1,000 ML @ Wide 1000 / 1000 Open IV.SIG BOLUS ONE Rx#: [id number] Levophed-Dextrose 4 mg/250 ml 500 / 500 250 / 250 Drip 4 mg In 250 ml @ 2 MCG/MIN 7.5 mls/hr IV.SIG TITRATE PRN Rx#:[id number] Zosyn 2.25 GM Premix 50 ML @ 100 / 100 150 / 150 100 mls/hr IV.SIG Q6H [facility] Rx#: [id number] NS Inj 1,000 ML @ Wide Open IV. 1999 / 1999 SIG BOLUS [facility] Rx#:[id number] Anesthesia Amount 1600 / 1600 Other 4000 / 4000 Output: Estimated Blood Loss 50 / 50 Urine Amount (Catheter) 200 / 200 150 / 150 Indwelling Urethral Catheter 200 / 200 150 / 150 Gastric Drainage 600 / 600 600 / 600 Left Nare 600 / 600 Orogastric Tube 0 / 0 Right Nare Nasogastric Tube 600 / 600 Wound Drainage 500 / 500 200 / 200 # 1 Abdomen 500 / 500 200 / 200 Other: Other Intake Source Saline Solution - Constitutional no acute distress (But critically ill and nonresponsive) - Routine HEENT Exam ENT: Present: mucous membranes moist - Routine Neck Exam Present: supple (ET tube) - Routine Respiratory Exam Present: patient mechanically ventilated - Routine Cardiovascular Exam Present: S1, S2 (Regular rhythm sinus rhythm, heart rate 87) - Routine Abdominal Exam Present: firm (Semifirm, open incision with sponge and dressing, gurgling of NG tube otherwise no bowel sounds) - Urinary Catheter Management Indwelling Urethral Catheter Cath placed during this visit: yes Urethral indwelling: Yes Reason for continuing: Hourly intake/output Insertion date: 11/23/17 Insertion time: 05:00 Results - Labs CBC & Chem 7: 11/24/17 04:20 11/24/17 04:20 Laboratory Results - last 24 hr 11/22/17 11/23/17 11/23/17 03:03 11:06 11:40 WBC 0.8 L D RBC 4.52 Hgb 13.8 Hct 42.6 MCV 94.3 MCH 30.7 MCHC 32.5 RDW 14.8 Plt Count 93 L MPV 9.2 Prelim Diff (Auto) Neut % (Auto) Lymph % (Auto) [place] % (Auto) Eos % (Auto) Baso % (Auto) Neut # (Auto) Lymph # (Auto) [place] # (Auto) Eos # (Auto) Baso # (Auto) WBC Differential Seg Neuts % (Manual) Band Neuts % (Manual) Lymphocytes % (Manual) Monocytes % (Manual) Abs Neuts (Manual) Differential Comment Toxic Vacuolation Dohle Bodies Platelet Estimate Platelet Morphology Jessy Cells Puncture Site Patient Temperature O2 Saturation ABG pH ABG pCO2 ABG pO2 ABG HCO3 ABG O2 Content ABG Base Excess ABG Methemoglobin Mars Test Hemoglobin Carboxyhemoglobin O2 Delivery Device Vent Setting Inspired O2 Critical Value Sodium Potassium Chloride Carbon Dioxide Anion Gap BUN Creatinine Estimated GFR POC Glucose Random Glucose Hemoglobin A1c 5.5 Lactic Acid 5.5 H* Calcium Prot Corrected Calcium Total Bilirubin AST ALT Alkaline Phosphatase Total Protein Albumin Tumor Marker AFP Carcinoembryonic Ag CA 19-9 Antigen 11/23/17 11/23/17 11/23/17 11:40 14:50 16:00 WBC RBC Hgb Hct MCV MCH MCHC RDW Plt Count MPV Prelim Diff (Auto) Neut % (Auto) Lymph % (Auto) [place] % (Auto) Eos % (Auto) Baso % (Auto) Neut # (Auto) Lymph # (Auto) [place] # (Auto) Eos # (Auto) Baso # (Auto) WBC Differential Seg Neuts % (Manual) Band Neuts % (Manual) Lymphocytes % (Manual) Monocytes % (Manual) Abs Neuts (Manual) Differential Comment Toxic Vacuolation Dohle Bodies Platelet Estimate Platelet Morphology [place] Cells Puncture Site Art line Patient Temperature 98.6 O2 Saturation 91 ABG pH 7.25 L* ABG pCO2 46 H ABG pO2 70 ABG HCO3 19 L ABG O2 Content 19.6 ABG Base Excess -6.8 L ABG Methemoglobin 0.8 Mars Test Present Hemoglobin 15.3 Carboxyhemoglobin 0.3 O2 Delivery Device Ventilator Vent Setting Prvc16/500/1.0/+12 Inspired O2 100 Critical Value Yes Sodium 155 H Potassium 3.7 Chloride 126 H D Carbon Dioxide 21.4 Anion Gap 8 BUN 20 H Creatinine 2.03 H Estimated GFR 43 L POC Glucose Random Glucose 72 L Hemoglobin A1c Lactic Acid Calcium 6.3 L* D Prot Corrected Calcium 8.3 L Total Bilirubin 1.7 H AST 702 H ALT 539 H Alkaline Phosphatase 31 L Total Protein 3.4 L D Albumin 2.0 L D Tumor Marker AFP 1.0 Carcinoembryonic Ag 0.4 CA 19-9 Antigen 11/23/17 11/23/17 11/23/17 16:00 16:00 16:55 WBC 1.7 L D RBC 4.79 Hgb 14.7 Hct 44.9 MCV 93.7 MCH 30.7 MCHC 32.8 RDW 15.0 Plt Count 97 L MPV 10.1 Prelim Diff (Auto) Neut % (Auto) Lymph % (Auto) [place] % (Auto) Eos % (Auto) Baso % (Auto) Neut # (Auto) Lymph # (Auto) [place] # (Auto) Eos # (Auto) Baso # (Auto) WBC Differential Seg Neuts % (Manual) Band Neuts % (Manual) Lymphocytes % (Manual) Monocytes % (Manual) Abs Neuts (Manual) Differential Comment Toxic Vacuolation Dohle Bodies Platelet Estimate Platelet Morphology [place] Cells Puncture Site Patient Temperature O2 Saturation ABG pH ABG pCO2 ABG pO2 ABG HCO3 ABG O2 Content ABG Base Excess ABG Methemoglobin Mars Test Hemoglobin Carboxyhemoglobin O2 Delivery Device Vent Setting Inspired O2 Critical Value Sodium Potassium Chloride Carbon Dioxide Anion Gap BUN Creatinine Estimated GFR POC Glucose Random Glucose Hemoglobin A1c Lactic Acid 3.2 H Calcium Prot Corrected Calcium Total Bilirubin AST ALT Alkaline Phosphatase Total Protein Albumin Tumor Marker AFP Carcinoembryonic Ag CA 19-9 Antigen 6.2 11/23/17 11/23/17 11/24/17 16:55 19:04 00:26 WBC RBC Hgb Hct MCV MCH MCHC RDW Plt Count MPV Prelim Diff (Auto) Neut % (Auto) Lymph % (Auto) [place] % (Auto) Eos % (Auto) Baso % (Auto) Neut # (Auto) Lymph # (Auto) [place] # (Auto) Eos # (Auto) Baso # (Auto) WBC Differential Seg Neuts % (Manual) Band Neuts % (Manual) Lymphocytes % (Manual) Monocytes % (Manual) Abs Neuts (Manual) Differential Comment Toxic Vacuolation Dohle Bodies Platelet Estimate Platelet Morphology Jessy Cells Puncture Site Patient Temperature O2 Saturation ABG pH ABG pCO2 ABG pO2 ABG HCO3 ABG O2 Content ABG Base Excess ABG Methemoglobin Mars Test Hemoglobin Carboxyhemoglobin O2 Delivery Device Vent Setting Inspired O2 Critical Value Sodium 153 H Potassium 3.8 Chloride 124 H Carbon Dioxide 21.4 Anion Gap 8 BUN 24 H Creatinine 2.75 H Estimated GFR 30 L POC Glucose 96 90 Random Glucose 59 L Hemoglobin A1c Lactic Acid Calcium 6.6 L* Prot Corrected Calcium 8.2 L Total Bilirubin 2.3 H AST 1038 H ALT 703 H Alkaline Phosphatase 32 L Total Protein 4.1 L D Albumin 2.5 L Tumor Marker AFP Carcinoembryonic Ag CA 19-9 Antigen 11/24/17 11/24/17 11/24/17 04:20 04:20 08:00 WBC 7.5 D RBC 4.03 L Hgb 12.6 L D Hct 38.0 L MCV 94.4 MCH 31.2 MCHC 33.1 RDW 15.4 Plt Count 79 L MPV 9.7 Prelim Diff (Auto) Slide review pending Neut % (Auto) 91.7 H Lymph % (Auto) 4.8 L [place] % (Auto) 2.6 Eos % (Auto) 0.8 Baso % (Auto) 0.1 Neut # (Auto) 6.9 Lymph # (Auto) 0.4 L [place] # (Auto) 0.2 Eos # (Auto) 0.1 Baso # (Auto) 0.0 WBC Differential Manual diff final Seg Neuts % (Manual) 21 Band Neuts % (Manual) 74 H Lymphocytes % (Manual) 3 L Monocytes % (Manual) 2 Abs Neuts (Manual) 7.1 Differential Comment . Toxic Vacuolation Present H Dohle Bodies Present H Platelet Estimate Low L Platelet Morphology Enlarged H Jessy Cells 1+ H Puncture Site Patient Temperature O2 Saturation ABG pH ABG pCO2 ABG pO2 ABG HCO3 ABG O2 Content ABG Base Excess ABG Methemoglobin Mars Test Hemoglobin Carboxyhemoglobin O2 Delivery Device Vent Setting Inspired O2 Critical Value Sodium 149 H Potassium 4.8 D Chloride 118 H Carbon Dioxide 20.0 L Anion Gap 11 BUN 27 H Creatinine 3.79 H Estimated GFR 21 L POC Glucose 89 Random Glucose 123 H Hemoglobin A1c Lactic Acid Calcium 7.1 L* Prot Corrected Calcium 8.5 Total Bilirubin 3.1 H AST 949 H ALT 642 H Alkaline Phosphatase 31 L Total Protein 4.5 L Albumin 3.0 L Tumor Marker AFP Carcinoembryonic Ag CA 19-9 Antigen 11/24/17 08:46 WBC RBC Hgb Hct MCV MCH MCHC RDW Plt Count MPV Prelim Diff (Auto) Neut % (Auto) Lymph % (Auto) [place] % (Auto) Eos % (Auto) Baso % (Auto) Neut # (Auto) Lymph # (Auto) [place] # (Auto) Eos # (Auto) Baso # (Auto) WBC Differential Seg Neuts % (Manual) Band Neuts % (Manual) Lymphocytes % (Manual) Monocytes % (Manual) Abs Neuts (Manual) Differential Comment Toxic Vacuolation Dohle Bodies Platelet Estimate Platelet Morphology Jessy Cells Puncture Site Patient Temperature O2 Saturation ABG pH ABG pCO2 ABG pO2 ABG HCO3 ABG O2 Content ABG Base Excess ABG Methemoglobin [place] Test Hemoglobin Carboxyhemoglobin O2 Delivery Device Vent Setting Inspired O2 Critical Value Sodium Potassium Chloride Carbon Dioxide Anion Gap BUN Creatinine Estimated GFR POC Glucose Random Glucose Hemoglobin A1c Lactic Acid 5.0 H* Calcium Prot Corrected Calcium Total Bilirubin AST ALT Alkaline Phosphatase Total Protein Albumin Tumor Marker AFP Carcinoembryonic Ag CA 19-9 Antigen - Imaging Impressions Chest X-Ray 11/24/17 05:00 CONCLUSION: Bilateral perihilar and left lower lobe airspace disease Assessment and Plan (1) Bowel obstruction Status: Acute Code(s): K56.609 - Unspecified intestinal obstruction, unspecified as to partial versus complete obstruction - Plan Mr. Marshall is a 47-year-old male patient who presented to the emergency room this morning with complaint of severe generalized abdominal pain which he describes as cramping. associated with nausea and emesis. Patient states he has no medical history, no surgical history, and no known drug allergies. Our service has been consulted to evaluate possible pancreatic/duodenal mass. Patient states onset of symptoms started last night after he ate a large meal at the [employer]. Patient denies ever having pain like this before and states he had at least 10-15 episodes of vomiting. Patient denies fever, diarrhea, constipation. States pain is constant and there are no alleviating or aggravating factors.He reports having a soft brown BM of "normal " quantity 2 days ago and none since noted. States he normally has 1-2 soft brown bowel movements daily. Patient unsure if he has had been able to pass gas over the last 24 hours. Reports he was feeling well without any symptoms of abdominal pain nausea or vomiting prior to today. Patient has no history of abdominal obstruction or abdominal surgical procedures. Patient denies any blood in emesis or noted bleeding in stool. Denies ever having had EGD or colonoscopy in the past. Denies any use of NSAIDs or blood thinners. Denies any known family history for any gastrointestinal disorders. Denies use of tobacco or alcohol. Upon arrival to emergency room patient had NG placed with documented drainage of over a liter of yellow fluid. Patient asked for NG to be removed due to discomfort but is now willing to have same replaced. Pancreatic/duodenal mass/obstruction CT abdomen and pelvis done on admission revealed the following findings : Examination of the lung bases demonstrates no abnormality. No pleural fluid is identified. No pulmonary nodules are present. The liver and spleen are normal in size and no focal defects are identified. There is severe gastric distention to the level of the third portion of the duodenum where there is decompressed distal duodenum and small bowel. There is a possible mass in the pancreas as etiology. Benign or malignant stricture would be considered and endoscopy is recommended to further evaluate this. The adrenal glands and kidneys appear normal bilaterally. No hydronephrosis or mass lesions are identified. Examination of the pelvis demonstrates no evidence of free fluid or pelvic mass. No abnormally enlarged inguinal or retroperitoneal lymph nodes are present. The bladder is unremarkable. High-grade obstruction at the level of the third portion of the duodenum with massive gastric distention. There is equivocal mass in the pancreatic head. Endoscopy is recommended to evaluate the stricture. WBC count 12.1 hemoglobin 15.7 hematocrit 48.1 total bilirubin 2.8 AST 22 ALT 34 alk phos 63 lipase 3687 CA 199 antigen 5.0. 11/22/2017-NG tube placed, immediate return of estimated 700-800 cc of bile colored drainage. Patient reporting much less abdominal discomfort. 11/23/2017-approximately 0400 patient underwent cardiac arrest, was intubated via ET tube and mechanically ventilated. Patient is now postoperative exploratory laparotomy with large mid abdominal surgical wound attached to suction. Per surgery, there was a large amount of food found in stomach. Oral gastric as well as nasogastric in place attached to low wall suction draining brown fluid. Dr. Gudino at bedside, plan is for patient to return to surgery on Sunday for possible subtotal gastrectomy; at which time he will attempt to visualize stomach and duodenum intraoperatively. 11/24/2017 status post cardiac arrest PEA on 11/23/2017 patient continues to be critically ill in the intensive care setting, midline abdominal wound incision open with sponge and dressing no obvious bowel sounds NG tube draining dark bilious fluid, patient's continues on ventilator support and blood pressure meds PT last drawn 1.5 will recheck in the a.m. no obvious bleeding hemoglobin 12.6 and WBC count 7.5. According to the record plan for surgery again Sunday and intraoperative enteroscopy to be done. Currently no family present, no GI procedures for now but patient may need endoscopy when he is better. gastric perforation, sepsis, large meal at [employer]. Continues with acute abdomen Plan Diet n.p.o. for now NG?and OG tube to low intermittent suction Monitor labs with special attention to hemoglobin, LFTs, INR, lipase Monitor intake and output Reevaluate and further recommendations to follow once patient is stable Dr. Bee Was able to speak to patient's father and stepmother for update, supportive care given Patient was seen per myself and Dr. Bee, note was written on his behalf
[2017-11-24] MEDS: fentaNYL 10 mcg/mL Premix Drip 2,500 MCG/250 ML BAG IV.SIG PRN (11:41)
[2017-11-24] MEDS: Phenylephrine Inj 80 MG in Dextrose 5% in Water Inj 492 ML IV.CONT PRN ×2 (11:43)
--- NOTE | 2017-11-24 19:20 | P.PN ---
Subjective Interval history: Patient still on drips. Father at bedside. Discussion and recap of last 24- hour events. Physical Exam Vital signs: Vital Signs 11/23/17 19:30 11/23/17 20:00 11/23/17 20:10 Temperature 100.1 F H Pulse Rate 132 H Respiratory Rate 16 16 16 Blood Pressure Pulse Oximetry 98 99 11/23/17 22:00 11/24/17 00:00 11/24/17 00:08 Temperature 99.4 F Pulse Rate 111 H 106 H Respiratory Rate 16 16 Blood Pressure Pulse Oximetry 98 96 11/24/17 02:00 11/24/17 04:00 11/24/17 04:04 Temperature 99.2 F Pulse Rate 102 H 95 H Respiratory Rate 16 16 Blood Pressure Pulse Oximetry 100 100 11/24/17 06:00 11/24/17 07:42 11/24/17 08:00 Temperature 98.8 F Pulse Rate 98 H 90 Respiratory Rate 16 16 Blood Pressure 106/62 Pulse Oximetry 100 100 11/24/17 10:00 11/24/17 11:37 11/24/17 12:00 Temperature 98.3 F Pulse Rate 87 84 Respiratory Rate 16 16 Blood Pressure 100/58 L Pulse Oximetry 98 92 L 11/24/17 14:00 11/24/17 15:14 11/24/17 16:00 Temperature 96.8 F L Pulse Rate 87 84 Respiratory Rate 16 16 Blood Pressure 100/56 L Pulse Oximetry 95 95 11/24/17 18:00 Temperature Pulse Rate 90 Respiratory Rate Blood Pressure Pulse Oximetry Intake & Output 11/24/17 11/24/17 11/25/17 06:59 18:59 06:59 Intake Total 5350 / 5350 4950 / 4950 100 / 100 Output Total 950 / 950 1100 / 1100 Balance 4400 / 4400 3850 / 3850 100 / 100 Weight 90.1 kg Intake: IV 5350 / 5350 4950 / 4950 100 / 100 LR 1000 mL Inj 1,000 ML @ 150 1000 / 1000 mls/hr IV.CONT .Q6H40M [facility] Rx#: [id number] Neosynephrine Inj 80 MG In D5W 500 / 500 Inj 492 ML @ 40 MCG/MIN 15 mls/ hr IV.CONT TITRATE PRN Rx#: [id number] Sodium Bicarbonate 8.4% Inj 150 1000 / 1000 MEQ In D5W Inj 850 ML @ 150 mls/hr IV.CONT .Q6H40M [facility] Rx#: [id number] Sodium Bicarbonate 8.4% Inj 150 1000 / 1000 750 / 750 MEQ In Sterile Water for Inj 850 ML @ 150 mls/hr IV.CONT . Q6H40M [facility] Rx#:[id number] Pitressin Inj 40 UNIT In NS Inj 200 / 200 100 / 100 98 ML @ 0.04 UNITS/MIN 6 mls/ hr IV.CONT CONT [facility] Rx#: [id number] Buminate 5% Inj 250 ML @ 250 500 / 500 750 / 750 mls/hr IV.SIG Q6HR [facility] Rx#: [id number] Diflucan 200 mg Premix Bag 100 100 / 100 ML @ 100 mls/hr IV.SIG Q24H [facility] Rx#:[id number] LR 1000 mL Inj 1,000 ML @ Wide 1000 / 1000 Open IV.SIG BOLUS ONE Rx#: [id number] Levophed-Dextrose 4 mg/250 ml 500 / 500 500 / 500 Drip 4 mg In 250 ml @ 2 MCG/MIN 7.5 mls/hr IV.SIG TITRATE PRN Rx#:[id number] Zosyn 2.25 GM Premix 50 ML @ 150 / 150 100 / 100 100 mls/hr IV.SIG Q6H [facility] Rx#: [id number] NS Inj 1,000 ML @ Wide Open IV. 1999 / 1999 SIG BOLUS [facility] Rx#:[id number] fentaNYL 10 mcg/mL Premix Drip 250 / 250 2,500 mcg In 250 ml @ 50 MCG/HR 5 mls/hr IV.SIG TITRATE PRN Rx #:[id number] Output: Stool 0 / 0 Urine Amount (Catheter) 150 / 150 50 / 50 Indwelling Urethral Catheter 150 / 150 50 / 50 Gastric Drainage 600 / 600 250 / 250 Orogastric Tube 0 / 0 150 / 150 Right Nare Nasogastric Tube 600 / 600 100 / 100 Wound Drainage 200 / 200 800 / 800 # 1 Abdomen 200 / 200 800 / 800 Other: # Bowel Movements 0 - Constitutional obtunded Comments: Intubated and sedated - Routine Respiratory Exam Present: CTA bilaterally - Routine Cardiovascular Exam Present: RRR - Routine Abdominal Exam Present: soft, wound (VAC in place without significant drainage. ZAINAB drain suctioning serosanguineous fluid) - Urinary Catheter Management Indwelling Urethral Catheter Cath placed during this visit: yes Urethral indwelling: Yes Reason for continuing: Hourly intake/output Insertion date: 11/23/17 Insertion time: 05:00 Results - Labs CBC & Chem 7: 11/24/17 04:20 11/24/17 04:20 Laboratory Results - last 24 hr 11/24/17 11/24/17 11/24/17 00:26 04:20 04:20 WBC 7.5 D RBC 4.03 L Hgb 12.6 L D Hct 38.0 L MCV 94.4 MCH 31.2 MCHC 33.1 RDW 15.4 Plt Count 79 L MPV 9.7 Prelim Diff (Auto) Slide review pending Neut % (Auto) 91.7 H Lymph % (Auto) 4.8 L Jenkins % (Auto) 2.6 Eos % (Auto) 0.8 Baso % (Auto) 0.1 Neut # (Auto) 6.9 Lymph # (Auto) 0.4 L Jenkins # (Auto) 0.2 Eos # (Auto) 0.1 Baso # (Auto) 0.0 WBC Differential Manual diff final Seg Neuts % (Manual) 21 Band Neuts % (Manual) 74 H Lymphocytes % (Manual) 3 L Monocytes % (Manual) 2 Abs Neuts (Manual) 7.1 Differential Comment . Toxic Vacuolation Present H Dohle Bodies Present H Platelet Estimate Low L Platelet Morphology Enlarged H [place] Cells 1+ H Sodium 149 H Potassium 4.8 D Chloride 118 H Carbon Dioxide 20.0 L Anion Gap 11 BUN 27 H Creatinine 3.79 H Estimated GFR 21 L POC Glucose 90 Random Glucose 123 H Lactic Acid Calcium 7.1 L* Prot Corrected Calcium 8.5 Total Bilirubin 3.1 H AST 949 H ALT 642 H Alkaline Phosphatase 31 L Total Protein 4.5 L Albumin 3.0 L 11/24/17 11/24/17 11/24/17 08:00 08:46 11:11 WBC RBC Hgb Hct MCV MCH MCHC RDW Plt Count MPV Prelim Diff (Auto) Neut % (Auto) Lymph % (Auto) Jenkins % (Auto) Eos % (Auto) Baso % (Auto) Neut # (Auto) Lymph # (Auto) Jenkins # (Auto) Eos # (Auto) Baso # (Auto) WBC Differential Seg Neuts % (Manual) Band Neuts % (Manual) Lymphocytes % (Manual) Monocytes % (Manual) Abs Neuts (Manual) Differential Comment Toxic Vacuolation Dohle Bodies Platelet Estimate Platelet Morphology [place] Cells Sodium Potassium Chloride Carbon Dioxide Anion Gap BUN Creatinine Estimated GFR POC Glucose 89 100 Random Glucose Lactic Acid 5.0 H* Calcium Prot Corrected Calcium Total Bilirubin AST ALT Alkaline Phosphatase Total Protein Albumin 11/24/17 16:10 WBC RBC Hgb Hct MCV MCH MCHC RDW Plt Count MPV Prelim Diff (Auto) Neut % (Auto) Lymph % (Auto) Jenkins % (Auto) Eos % (Auto) Baso % (Auto) Neut # (Auto) Lymph # (Auto) Jenkins # (Auto) Eos # (Auto) Baso # (Auto) WBC Differential Seg Neuts % (Manual) Band Neuts % (Manual) Lymphocytes % (Manual) Monocytes % (Manual) Abs Neuts (Manual) Differential Comment Toxic Vacuolation Dohle Bodies Platelet Estimate Platelet Morphology Jessy Cells Sodium Potassium Chloride Carbon Dioxide Anion Gap BUN Creatinine Estimated GFR POC Glucose 113 H Random Glucose Lactic Acid Calcium Prot Corrected Calcium Total Bilirubin AST ALT Alkaline Phosphatase Total Protein Albumin Microbiology 11/24/17 09:54 Sputum - Endotracheal Gram Stain - Final 11/23/17 11:06 Blood - Line Aerobic Blood Culture - Preliminary No growth in 1 day 11/23/17 11:06 Blood - Line Anaerobic Blood Culture - Preliminary No growth in 1 day 11/23/17 04:50 Blood - Line Aerobic Blood Culture - Preliminary No growth in 1 day 11/23/17 04:50 Blood - Line Anaerobic Blood Culture - Preliminary No growth in 1 day - Imaging Impressions Chest X-Ray 11/24/17 05:00 CONCLUSION: Bilateral perihilar and left lower lobe airspace disease Assessment and Plan - Assessment (1) Gastric perforation without ulcer Code(s): K31.89 - Other diseases of stomach and duodenum Status: Acute Plan: Reexploration tomorrow with washout and possible further gastric resection. Surgery discussed with the patient's father with risks including but not limited to: Bleeding, infection, need for further operation. I discussed with the father that Dr. Wellington likely will not close the abdomen and he will require yet another procedure. I have discussed remedies, consequences, alternatives, and convalescence. I have also discussed with the patient's father that it is very possible that he may require dialysis either temporarily or permanently. He vocalized clear understanding of all of the above and agrees to proceed with surgery as planned. (2) Septic shock Code(s): A41.9 - Sepsis, unspecified organism; R65.21 - Severe sepsis with septic shock Status: Acute (3) Pneumoperitoneum Code(s): K66.8 - Other specified disorders of peritoneum Status: Resolved (4) JACLYN (acute kidney injury) Code(s): N17.9 - Acute kidney failure, unspecified Status: Acute (5) Abdominal compartment syndrome Code(s): T79.A3XA - Traumatic compartment syndrome of abdomen, initial encounter Status: Resolved - Plan Discussed Condition With: Nurse Marilee Patient's father Dr. Rudy Wellington - Attending Attestation I attest that I had a [id number] encounter with the patient on the same day, and personally performed and documented my assessment and findings in the medical record. The following services were provided during this hospital visit: Chart data review, vital sign assessments/reviewing monitor data Review of consultation notes if present Medication orders/review and/or management Ordering and/or reviewing lab tests Ordering and/or interpreting/reviewing x-rays and/or diagnostic studies Care of the patient and discussion of the patient with the care team Documentation time To help prompt me to consider important information that might be impacting today's encounter and assessment, Information from prior notes written by myself or my colleagues may have been "brought forward/copy and pasted" into today's note.
[2017-11-24 21:56] LABS: ABG Base Excess -4.9 mmol/L (-2-2); ABG PCO2 36 mmHg (38-42); ABG PO2 212 mmHg (61-120)
[2017-11-25 04:25] LABS: Baso % (Auto) 0.1 % (0.0-2.0); Eos % (Auto) 0.1 % (0.0-4.0); Hematocrit 29.2 % (39.0-51.0); Hemoglobin 10.1 gm/dL (13.0-17.0); Lymph # (Auto) 0.4 th/mm3 (1.0-4.8); Lymph % (Auto) 3.2 % (9.0-44.0); Mean Corpuscular HGB Conc 34.5 % (32.0-36.0); Mean Corpuscular Hemoglobin 31.6 pg (27.0-34.0); Mean Corpuscular Volume 91.7 fL (80.0-100.0); Mean Platelet Volume 10.4 fL (7.0-11.0); Mono # (Auto) 0.3 th/mm3 (0.0-0.9); Mono % (Auto) 2.5 % (0.0-8.0); Neut # (Auto) 12.5 th/mm3 (1.8-7.7); Neut % (Auto) 94.1 % (16.0-70.0); Platelet Count 57 th/mm3 (150-450); Red Blood Count 3.18 mil/mm3 (4.50-5.90); Red Cell Distribution Width 15.1 % (11.6-17.2); White Blood Count 13.3 th/mm3 (4.0-11.0)
[2017-11-25 04:51] LABS: Activated Partial Thrombo Time 47.1 sec (24.3-30.1); Prothrombin Time 19.9 sec (9.8-11.6)
[2017-11-25 04:57] LABS: Lymphocytes 2 % (9-44); Metamyelocytes 1 % (0-1); Monocytes 8 % (0-8)
[2017-11-25 04:58] LABS: Platelet Morphology Normal (Normal)
[2017-11-25] MEDS: Oral Hygiene Kit OROPHARYNG SCH ×4 (05:04→23:46)
[2017-11-25] MEDS: Sodium Bicarbonate 8.4% Inj 150 MEQ in Dextrose 5% in Water Inj 850 ML IV.CONT SCH ×6 (05:04→15:50)
[2017-11-25] MEDS: Piperacil/Tazo 2.25 GM Premix 50 ML IV.SIG SCH ×4 (05:07→23:47)
[2017-11-25] MEDS: Albumin Human 5% Inj 250 ML IV.SIG SCH ×4 (05:07→23:46)
[2017-11-25] MEDS: Hydrocortisone Sod Succinate 100 MG Vial IV.PUSH SCH ×4 (05:07→23:46)
[2017-11-25 05:10] LABS: Albumin 2.9 g/dL (3.4-5.0); Carbon Dioxide 26.1 meq/L (21.0-32.0); Magnesium 1.3 mg/dL (1.5-2.5); Potassium 4.6 meq/L (3.5-5.1); Total Protein 4.6 g/dL (6.4-8.2)
[2017-11-25] MEDS: Insulin NovoLOG Aspart Correctional Sugar Inj SQ SCH ×4 (07:07→23:47)
[2017-11-25] MEDS: fentaNYL 10 mcg/mL Premix Drip 2,500 MCG/250 ML BAG IV.SIG PRN (07:55)
[2017-11-25] MEDS: Chlorhexidine 0.12% Oral Kit 15 ML UDC OROPHARYNG SCH ×2 (07:56→20:59)
[2017-11-25] MEDS: Sodium Chloride 0.9% 2 ML Flush BID IV.FLUSH SCH ×2 (08:02→20:59)
[2017-11-25] MEDS: Pantoprazole Inj 40 MG Vial IV.PUSH SCH (08:59)
--- NOTE | 2017-11-25 10:09 | P.PNCC ---
Subjective Subjective Remarks/Hospital Course: 47-year-old -[place] male with reportedly no past medical or past surgical history who was admitted to hospitalist service 11/22/17 after presenting with abdominal pain, nausea, vomiting. He had CT abd/pelvis with massive gastric distention. NG tube had been placed. I was called to patient's bedside for CODE BLUE PEA arrest. CPR was ongoing and patient had massive abdominal distension and gastric regurgitant in the airway. He was emergently intubated and large amount of gastric secretions suctioned from oropharynx. After 21 minutes of CPR, ROSC was obtained and he was profoundly hypotensive. Continued aggressive fluid resuscitation and initiated dopamine. He was transferred to [facility] where CVL and R radial art line were placed and he was given 7 L of crystalloid and albumin. CXR demonstrated pneumoperitoneum and Dr. Martin Gudino was called emergently and he immediately contacted OR for emergent ex lap. He had intraabdominal hypertension with IAP of 40 mmHg, though fortunately was able to be ventilated adequately after rocuronium 50 mg IV and was transferred to OR. Subjective: 11/24 Dr. Gudino took to the operating room early in the morning on 11/23 and discovered tension pneumoperitoneum, massive gastric distension, ischemia of the proximal 2/3 of the stomach and large gastric perforation with massive intraperitoneal contamination with food particles. Dr. Isaacs placed 2 NGT and decompressed 2 L of succus. Patient had initial improvement in vital signs in the immediate postoperative period, however he subsequently became hypotensive requiring upward titration of levophed and addition of vasopressin and stress dose hydrocortisone. He remains on levophed 10 mcg/min, neosynephrine 80 mcg/ min, vasopressin 0.04 units/min with overall vasopressor requirement weaning overnight. He is oliguric and creatinine is continuing to climb. He was given 2 L of crystalloid and albumin overnight. He does have significant fluid losses with combination of abdominal dressing and NGT output, so I will give an additional L of crystalloid now to monitor hourly response as he certainly does not appear volume overloaded. Nonetheless Flotrac numbers are suggesting adequate volume status and we may be seeing the consequence of ischemic ATN. May ultimately require HD, however not at this time. Abdomen remains open and plan is to re-explore 11/25. 11/25: Patient has acceptable hemodynamics by Flotrac but remains septic with requirements for levo fed 7 mics per minute and vasopressin 0.04 units/min for blood pressure support. This has improved overnight and the Bhavesh-Synephrine support has been weaned off completely. Acid base balance is acceptable. ATN has developed which will undoubtedly require hemodialysis. Potassium level is normal. He is at increased risk for an anesthetic obviously but there is an urgent need to check for residual gastric necrosis. Objective Vital Signs / I&O: Vital Signs 11/24/17 10:00 11/24/17 11:37 11/24/17 12:00 Temperature 98.3 F Pulse Rate 87 84 Respiratory Rate 16 16 Blood Pressure 100/58 L Pulse Oximetry 98 92 L 11/24/17 14:00 11/24/17 15:14 11/24/17 16:00 Temperature 96.8 F L Pulse Rate 87 84 Respiratory Rate 16 16 Blood Pressure 100/56 L Pulse Oximetry 95 95 11/24/17 18:00 11/24/17 20:00 11/24/17 20:38 Temperature 99.4 F Pulse Rate 90 80 Respiratory Rate 16 16 Blood Pressure 100/58 L Pulse Oximetry 93 L 95 11/24/17 22:00 11/25/17 00:00 11/25/17 02:00 Temperature 98.9 F Pulse Rate 85 80 80 Respiratory Rate 17 Blood Pressure 96/60 L Pulse Oximetry 97 11/25/17 04:00 11/25/17 06:00 11/25/17 07:55 Temperature 99.0 F Pulse Rate 82 84 Respiratory Rate 14 14 Blood Pressure 90/54 L Pulse Oximetry 97 96 11/25/17 08:00 Temperature 97.7 F Pulse Rate 83 Respiratory Rate 14 Blood Pressure 96/58 L Pulse Oximetry 96 Intake & Output 11/24/17 11/25/17 11/25/17 18:59 06:59 18:59 Intake Total 4950 / 4950 3200 / 3200 350 / 350 Output Total 1100 / 1100 1163 / 1163 Balance 3850 / 3850 2037 / 2037 350 / 350 Intake: IV 4950 / 4950 3200 / 3200 350 / 350 Neosynephrine Inj 80 MG In D5W 500 / 500 Inj 492 ML @ 40 MCG/MIN 15 mls/ hr IV.CONT TITRATE PRN Rx#: [id number] Sodium Bicarbonate 8.4% Inj 150 1000 / 1000 2000 / 2000 MEQ In D5W Inj 850 ML @ 150 mls/hr IV.CONT .Q6H40M REPLACED BY [facility] Rx#: [id number] Sodium Bicarbonate 8.4% Inj 150 750 / 750 MEQ In Sterile Water for Inj 850 ML @ 150 mls/hr IV.CONT . Q6H40M REPLACED BY [facility] Rx#:[id number] Pitressin Inj 40 UNIT In NS Inj 100 / 100 98 ML @ 0.04 UNITS/MIN 6 mls/ hr IV.CONT CONT REPLACED BY [facility] Rx#: [id number] Buminate 5% Inj 250 ML @ 250 750 / 750 500 / 500 mls/hr IV.SIG Q6HR REPLACED BY [facility] Rx#: [id number] Diflucan 200 mg Premix Bag 100 100 / 100 100 / 100 ML @ 100 mls/hr IV.SIG Q24H REPLACED BY [facility] Rx#:[id number] LR 1000 mL Inj 1,000 ML @ Wide 1000 / 1000 Open IV.SIG BOLUS ONE Rx#: [id number] Levophed-Dextrose 4 mg/250 ml 500 / 500 500 / 500 Drip 4 mg In 250 ml @ 2 MCG/MIN 7.5 mls/hr IV.SIG TITRATE PRN Rx#:[id number] Zosyn 2.25 GM Premix 50 ML @ 100 / 100 100 / 100 100 mls/hr IV.SIG Q6H REPLACED BY [facility] Rx#: [id number] fentaNYL 10 mcg/mL Premix Drip 250 / 250 250 / 250 2,500 mcg In 250 ml @ 50 MCG/HR 5 mls/hr IV.SIG TITRATE PRN Rx #:[id number] Output: Stool 0 / 0 Urine Amount (Catheter) 50 / 50 38 / 38 Indwelling Urethral Catheter 50 / 50 38 / 38 Gastric Drainage 250 / 250 625 / 625 Orogastric Tube 150 / 150 450 / 450 Right Nare Nasogastric Tube 100 / 100 175 / 175 Wound Drainage 800 / 800 500 / 500 # 1 Abdomen 800 / 800 500 / 500 Other: # Bowel Movements 0 Result Diagrams: 11/25/17 04:00 11/25/17 04:00 Objective Remarks: Drips: Fentanyl 125 mcg/h Levophed 8 mcg/min Vasopressor 0.04units/min Bhavesh-Synephrine off Sterile water with bicarb at 150 mL/h GENERAL: Critically ill male, orotracheally intubated. SKIN: Warm, dry and adequately perfused. HEAD: Atraumatic. Normocephalic. EYES: Pupils equal and round, pinpoint and sluggishly reactive. No scleral icterus. No injection or drainage. ENT: No nasal bleeding or discharge. Mucous membranes pink and moist. Orotracheally intubated. NECK: Trachea midline. VASC: Right IJ central venous line in place with dressing clean/dry/intact. Left femoral art line in place with dressing clean/dry and intact with distal perfusion left leg intact. CARDIOVASCULAR: Regular rate and rhythm, sinus rhythm on the monitor with rate in the 80s. No murmurs rubs or gallops. Neck veins full. RESPIRATORY: Orotracheally intubated on PRVC tidal volume 500/rate 16/I time 1.2/PEEP 8/FiO2 60%. Sats are 97% GASTROINTESTINAL: NGT and OGT in place to LIWS with most of output from NGT, coffee ground appearance. Abdomen open with VAC dressing in place to suction, overall abdomen is soft, non tympanitic, few bowel sounds. MUSCULOSKELETAL: Extremities without clubbing, cyanosis, or edema. No obvious deformities. Tepid but well-perfused. NEUROLOGICAL: Eyes open when stimulated, moves extremities spontaneously. Breathes spontaneously over ventilatory rate. Assessment and Plan - Problem List (1) Septic shock Code(s): A41.9 - Sepsis, unspecified organism; R65.21 - Severe sepsis with septic shock Status: Acute (2) Acute respiratory failure Code(s): J96.00 - Acute respiratory failure, unspecified whether with hypoxia or hypercapnia Status: Acute (3) Pneumoperitoneum Code(s): K66.8 - Other specified disorders of peritoneum Status: Resolved (4) Cardiac arrest Code(s): I46.9 - Cardiac arrest, cause unspecified Status: Resolved (5) JACLYN (acute kidney injury) Code(s): N17.9 - Acute kidney failure, unspecified Status: Acute (6) Transaminitis Code(s): R74.0 - Nonspecific elevation of levels of transaminase and lactic acid dehydrogenase [LDH] Status: Acute (7) Abdominal compartment syndrome Code(s): T79.A3XA - Traumatic compartment syndrome of abdomen, initial encounter Status: Resolved (8) Ischemic hepatitis Code(s): K75.9 - Inflammatory liver disease, unspecified Status: Acute (9) Hypernatremia Code(s): E87.0 - Hyperosmolality and hypernatremia Status: Acute (10) Hyperchloremic metabolic acidosis Code(s): E87.2 - Acidosis Status: Acute (11) Lactic acidemia Code(s): E87.2 - Acidosis Status: Acute (12) Leukopenia Code(s): D72.819 - Decreased white blood cell count, unspecified Status: Resolved - Assessment and Plan Plan: NEURO: Acute encephalopathy secondary to sepsis Unable to evaluate for ?anoxia at this time as he requires ongoing analgosedation for open abdomen and vent synchrony. Will evaluate more fully when stabilized. Fentanyl for analgosedation sedation. Target RASS -3 while abdomen is open. RESP: Acute respiratory failure Ventilator Bundle. PRVC PEEP 8 FIO2 80. Wean based on sats. Chest x-ray shows bilateral aspiration, probably from cardiac arrest and subsequent treatment. CV: Septic shock Lactic acidemia On Flotrac for hemodynamic monitoring. Wean multiple pressors as tolerated for MAP >65. Levophed, phenylephrine, vasopressin. On stress dose hydrocortisone, wean when vasopressor requirement resolves. IVF as per below. GI: S/p Emergent Exlap, primary repair of gastrotomy, abdominal washout of large amount of intraperitoneal contamination by Dr. Gudino 11/23. Pneumoperitoneum, resolved Gastric outlet/SBO Intra-abdominal compartment syndrome, resolved NGT and OGT in place to LIWS. NPO. Open abdomen with tentative plan for re-exploration 11/25. There was discussion of possible EGD while patient in OR, GI states would defer at this time. Elevated lipase ?secondary to perforated viscous. GI following Transaminitis- likely secondary to sepsis/ischemic hepatitis. Trending down. FEN/RENAL: JACLYN with oliguria Hypernatremia Hyperchloremic acidosis and lactic acidosis Delgado in place, continue to monitor hourly urine output. Monitor electrolytes and replace as indicated. Will adjust fluids to include dextrose with D5 150 mill equivalents of bicarb at 150 mL/h. Monitor CMP daily. on 5% albumin q6 ID: Intraabdominal sepsis secondary to gastric perforation. Ex lap for source control per Dr. Gudino 11/23 Sent 2 sets of blood cultures 11/23 which are pending. Chest x-ray 11/24 shows left lower lobe infiltrate. Received empiric Zosyn 2.25 IV q6, Diflucan 400 mg load then 200 mg IV q24 hours , Vancomycin 1 gram IV x1. Will continue Zosyn and diflucan. HEME: DIC -- Thrombocytopenia, hypofibrinogenemia, prolonged INR. Anemia of critical illness Type and cross sent. F/u coags 11/25. Transfuse 4 units fresh frozen plasma today Check fibrinogen today. ENDO: Acute hyperglycemia secondary to sepsis, resolved. On insulin sliding scale PROPH: SCD for DVT prophylaxis. Hold on pharmacologic DVT prophylaxis at this time due to presence of coffee ground output and anticipated return to OR. Protonix 40 mg IV daily for stress ulcer prophylaxis ACCESS: Right IJ central venous line placed 11/23 #3. L femoral art line placed in OR 11/23 #3 Right radial art line placed 11/23/17, discontinued . Full code Overall impression: This gentleman remains critically ill with respiratory failure, renal failure, recent intra-abdominal catastrophe requiring reexploration, and coagulopathy. He remains in septic shock requiring vasopressor support. He is unstable and at high risk for early . Critical care time 65 minutes aside from procedures. (2) Acute respiratory failure Qualifiers: Respiratory failure complication: hypoxia Qualified Code(s): J96.01 - Acute respiratory failure with hypoxia
[2017-11-25 12:35] VITALS: RESP 14
[2017-11-25] MEDS: Vasopressin Inj 40 UNIT in Sodium Chlor 0.9% Inj 98 ML IV.CONT SCH (13:07)
[2017-11-25 14:00] VITALS: BP 102/64
[2017-11-25 14:00] LABS: INR 1.4 Ratio
[2017-11-25] MEDS ORDERED: Heparin 10,000 UNITS/10 ML Vial (for IV use) ONE (14:51)
--- NOTE | 2017-11-25 15:46 | P.PCN ---
Procedure: Diagnosis: Acute kidney injury, septic shock Procedure: Insertion left internal jugular vein hemodialysis catheter, 14 [place] Narrative: Timeout performed, patient properly identified. Patient supine in the ICU bed with mechanical ventilation underway through orotracheal intubation. Usual ICU monitoring devices in place. Left neck prepped and draped. Using ultrasound guidance following Xylocaine infiltration anesthetic 1 %, the left internal jugular vein was easily cannulated and a wire delivered into the central circulation without resistance. Skin incision enlarged, 2 dilators passed, 14 [place] double-lumen dialysis catheter delivered into the central circulation to a distance of 18 cm. Both lumens aspirated, flushed and packed with heparin 1000 units/cc. Catheter sutured to the skin with nylon and Biopatch applied. Sterile dressing applied and chest x-ray ordered. Will review.
--- NOTE | 2017-11-25 15:47 | MB ---
cc: Boni Sotelo MD DATE: 11/25/2017 REASON FOR CONSULTATION: Acute renal failure management. HISTORY OF PRESENT ILLNESS: This is a 47-year-old male with no significant past medical history. The patient apparently went to [facility] and developed abdominal discomfort subsequently. He was admitted here on 11/22/2017. At that time, the patient was found to have a high-grade duodenal obstruction on imaging. He subsequently developed a PEA arrest and was intubated. Imaging further revealed pneumoperitonitis and the patient had an emergent exploratory laparotomy on 11/23/2017. At that time, he was found to have abdominal compartment syndrome with an intra-abdominal pressure of 40. He also had findings of bowel ischemia and gastric perforation. This was surgically managed, and subsequently the patient has remained intubated. He remains on pressor support with vasopressin and Levophed. The patient has had a diminishing urine output with approximately 350 mL of urine output yesterday, which is decreased to 90 mL so far today. Given acute renal failure in the setting of sepsis and abdominal perforation as well as anuric state, Nephrology was consulted for further evaluation. At this time, the patient is intubated and remains on pressors and is sedated. The plan is for further surgery this evening, when abdominal washout is planned. The patient continues on IV fluids of D5W with 150 mEq of sodium bicarbonate at 150 mL per hour. REVIEW OF SYSTEMS: The patient is intubated and sedated. Review of systems unobtainable. PAST MEDICAL HISTORY: No previous past medical history noted. PAST SURGICAL HISTORY: No previous surgical history. ALLERGIES: NO KNOWN DRUG ALLERGIES. MEDICATIONS AT HOME: None taken. FAMILY HISTORY: Noncontributory. SOCIAL HISTORY: No reported alcohol, tobacco or drug use. PHYSICAL EXAMINATION: VITAL SIGNS: At time of evaluation, temperature 98.8, pulse 81, respiratory rate 14, blood pressure 101/65, pulse oximetry 96% on 50% FiO2. GENERAL: Intubated, sedated. Abdominal wounds with dressings in place. CARDIAC: Regular rate and rhythm. PULMONARY: Decreased breath sounds at bases. ABDOMEN: Wounds in place. EXTREMITIES: Trace edema. LABORATORY FINDINGS: Sodium 143, potassium 4.6, chloride 106, bicarbonate 26.1, BUN 37, creatinine 5.4, glucose 123, corrected calcium 7.2, phosphorus 5.0, magnesium 1.3, AST 918, ALT 876, alkaline phosphatase 37. Abdominal CT on 11/22/2017 with apparently normal appearance of kidneys. Blood cultures and sputum with gram-negative rods 11/24/2017. Blood cultures negative on 11/23/2017. ASSESSMENT AND PLAN: 1. Acute kidney injury. The patient has developed acute kidney injury apparently secondary to hypotension and septic shock with bowel perforation and bowel ischemia and gastric perforation. The patient also had a PEA arrest with hypotension 11/23/2017, with approximately 20 minutes PEA arrest and code. The patient is status post surgery yesterday with exploratory laparotomy. The reasons for acute renal failure include all of the above, as well as possible element of the initial intra-abdominal compartment syndrome, which was relieved with surgery. At this point the patient has minimal urine output. He continues on pressor support. His creatinine is elevated up to a level of 5 today from previous admission creatinine of 1.6. There are no previous labs for comparison. At this point, discussed with critical care team. The plan is for the patient to have further surgery this evening with further abdominal exploration and washout. At this point, there is no significant acute need for dialysis with the potassium of 4.6 and a bicarbonate level of 26.1; however, the patient remains anuric at this state. Given the plan for surgery this evening will go ahead to plan for continuous renal replacement therapy initiation tomorrow morning for further balance of the patient's fluid status as well as electrolytes. Given anuric state with pressors, it is unlikely he would tolerate conventional hemodialysis very well. We will wait for CRRT initiation until after surgery later this evening, and plan for CRRT initation in the morning. . Should there be any acute hyperkalemia this evening, we can start continuous renal replacement therapy earlier. I discussed this with Dr. Jensen, who has agreed to place a vas cath for us at this point. Continue to monitor and renal-dose medications and antibiotics as possible. Continue supportive care. Continue with IV fluids D5W with 150 mEq of sodium bicarbonate. The patient is likely having ongoing insensible losses as well, with open abdomen in the setting of bowel ischemia and surgery. 2. Abdominal perforation and sepsis. The patient is on Zosyn as well as Diflucan. He was given one dose of vancomycin. Continue supportive care with critical care and surgery. We will continue with supportive care with continuous renal replacement therapy, with planning for initiation tomorrow unless there are any earlier issues with hyperkalemia. MD FRENCH Cisneros/anne , 01:12 PM , 01:22 PM JENNY
--- NOTE | 2017-11-25 16:08 | P.DIET ---
Nutritional Evaluation Screening comments: NPO ALERT X 3 DAYS. Please consult dietitian as needed.
--- NOTE | 2017-11-25 16:10 | XR ---
EXAM DATE: 11/25/2017 12:00 AM EDT AGE/SEX: 47 years / Male INDICATIONS: Hemodialysis cath position CLINICAL DATA: This is the patient's subsequent encounter. Patient reports that signs and symptoms h ave been present for 4 - 6 days and indicates a pain score of Nonresponsive. MEDICAL/SURGICAL HISTORY: Non-responsive. Non-responsive. COMPARISON: [facility], CHEST 1V SINGLE AP, 11/24/2017. . FINDINGS: Endotracheal tube in good position. Orogastric/nasogastric tubes are seen entering the stomach. Bilat eral mostly basilar airspace disease and small pleural effusions. No pneumothorax. Right central line in superior vena cava. CONCLUSION: Right central line in superior vena cava without pneumothorax. Relatively stable basilar airspace dis ease and pleural effusions. Electronically signed by: Tom Acevedo MD 11/25/2017 4:09 PM EDT
--- NOTE | 2017-11-25 16:50 | P.PNGI ---
Subjective Interval history: Remains mechanically ventilated multiple BP and IV drips, sedated, father and stepmother in the room No response for 9 Physical Exam Vital signs: Vital Signs 11/24/17 18:00 11/24/17 20:00 11/24/17 20:38 Temperature 99.4 F Pulse Rate 90 80 Respiratory Rate 16 16 Blood Pressure 100/58 L Pulse Oximetry 93 L 95 11/24/17 22:00 11/25/17 00:00 11/25/17 02:00 Temperature 98.9 F Pulse Rate 85 80 80 Respiratory Rate 17 Blood Pressure 96/60 L Pulse Oximetry 97 11/25/17 04:00 11/25/17 06:00 11/25/17 07:55 Temperature 99.0 F Pulse Rate 82 84 Respiratory Rate 14 14 Blood Pressure 90/54 L Pulse Oximetry 97 96 11/25/17 08:00 11/25/17 10:00 11/25/17 10:37 Temperature 97.7 F 99.7 F H Pulse Rate 83 90 86 Respiratory Rate 14 14 Blood Pressure 96/58 L Pulse Oximetry 96 96 11/25/17 10:56 11/25/17 11:13 11/25/17 11:22 Temperature 99.6 F 99.2 F 99.2 F Pulse Rate 85 85 88 Respiratory Rate 14 14 14 Blood Pressure Pulse Oximetry 96 96 96 11/25/17 11:32 11/25/17 12:00 11/25/17 12:35 Temperature 98.8 F 98.8 F Pulse Rate 96 H 78 Respiratory Rate 15 14 14 Blood Pressure 102/64 Pulse Oximetry 95 96 96 11/25/17 14:00 11/25/17 16:00 Temperature Pulse Rate 80 87 Respiratory Rate Blood Pressure Pulse Oximetry Intake & Output 11/24/17 11/25/17 11/25/17 18:59 06:59 18:59 Intake Total 4950 / 4950 3200 / 3200 3255 / 3255 Output Total 1100 / 1100 1163 / 1163 Balance 3850 / 3850 203 / 2036 3255 / 3255 Intake: IV 4950 / 4950 3200 / 3200 1999 Neosynephrine Inj 80 MG In D5W 500 / 500 Inj 492 ML @ 40 MCG/MIN 15 mls/ hr IV.CONT TITRATE PRN Rx#: [id number] Sodium Bicarbonate 8.4% Inj 150 1000 / 1000 2000 / 2000 1000 / 1000 MEQ In D5W Inj 850 ML @ 75 mls /hr IV.CONT .[id number] [facility] Rx#: [id number] Sodium Bicarbonate 8.4% Inj 150 750 / 750 MEQ In Sterile Water for Inj 850 ML @ 150 mls/hr IV.CONT . Q6H40M [facility] Rx#:[id number] Pitressin Inj 40 UNIT In NS Inj 100 / 100 100 / 100 98 ML @ 0.04 UNITS/MIN 6 mls/ hr IV.CONT CONT [facility] Rx#: [id number] Buminate 5% Inj 250 ML @ 250 750 / 750 500 / 500 250 / 250 mls/hr IV.SIG Q6HR [facility] Rx#: [id number] Diflucan 200 mg Premix Bag 100 100 / 100 100 / 100 ML @ 100 mls/hr IV.SIG Q24H [facility] Rx#:[id number] LR 1000 mL Inj 1,000 ML @ Wide 1000 / 1000 Open IV.SIG BOLUS ONE Rx#: [id number] Levophed-Dextrose 4 mg/250 ml 500 / 500 500 / 500 250 / 250 Drip 4 mg In 250 ml @ 2 MCG/MIN 7.5 mls/hr IV.SIG TITRATE PRN Rx#:[id number] Zosyn 2.25 GM Premix 50 ML @ 100 / 100 100 / 100 50 / 50 100 mls/hr IV.SIG Q6H [facility] Rx#: [id number] fentaNYL 10 mcg/mL Premix Drip 250 / 250 250 / 250 2,500 mcg In 250 ml @ 50 MCG/HR 5 mls/hr IV.SIG TITRATE PRN Rx #:[id number] Other 296 / 296 Intake (Blood Product) Amt 959 / 959 Plasma Thawed 5 Day Cp2d Unit 376 / 376 [id number] Plasma Thawed 5 Day Cp2d Unit 292 / 292 [id number] Plasma Thawed 5 Day Cp2d Unit 291 / 291 [id number] Plasma Thawed 5 Day Cp2d Unit 0 / 0 [id number] Output: Stool 0 / 0 Urine Amount (Catheter) 50 / 50 38 / 38 Indwelling Urethral Catheter 50 / 50 38 / 38 Gastric Drainage 250 / 250 625 / 625 Orogastric Tube 150 / 150 450 / 450 Right Nare Nasogastric Tube 100 / 100 175 / 175 Wound Drainage 800 / 800 500 / 500 # 1 Abdomen 800 / 800 500 / 500 Other: # Bowel Movements 0 - Constitutional obtunded (Sedated and not responsive) - Routine HEENT Exam Head: Present: normocephalic (Generalized peripheral edema) ENT: Present: mucous membranes moist (ET tube) - Routine Neck Exam Present: supple - Routine Respiratory Exam Present: patient mechanically ventilated, decreased breath sounds - Routine Cardiovascular Exam Present: S1, S2 (Distant) - Routine Abdominal Exam Present: firm (Abdominal open wound which is protected with sponge and dressing) - Routine Extremities Exam Present: pulses intact - Urinary Catheter Management Indwelling Urethral Catheter Cath placed during this visit: yes Urethral indwelling: Yes Reason for continuing: Hourly intake/output Insertion date: 11/23/17 Insertion time: 05:00 Results - Labs CBC & Chem 7: 11/25/17 04:00 11/25/17 04:00 Laboratory Results - last 24 hr 11/24/17 11/24/17 11/25/17 21:40 23:15 04:00 WBC 13.3 H D RBC 3.18 L Hgb 10.1 L D Hct 29.2 L MCV 91.7 MCH 31.6 MCHC 34.5 RDW 15.1 Plt Count 57 L MPV 10.4 Prelim Diff (Auto) Slide review pending Neut % (Auto) 94.1 H Lymph % (Auto) 3.2 L [place] % (Auto) 2.5 Eos % (Auto) 0.1 Baso % (Auto) 0.1 Neut # (Auto) 12.5 H Lymph # (Auto) 0.4 L [place] # (Auto) 0.3 Eos # (Auto) 0.0 Baso # (Auto) 0.0 WBC Differential Manual diff final Seg Neuts % (Manual) 48 Band Neuts % (Manual) 41 H Lymphocytes % (Manual) 2 L Monocytes % (Manual) 8 Metamyelocytes % (Man) 1 Abs Neuts (Manual) 12.0 H Differential Comment . Platelet Estimate Low L Platelet Morphology Normal PT INR APTT Fibrinogen Puncture Site Art line Patient Temperature 98.6 O2 Saturation 98 ABG pH 7.36 L ABG pCO2 36 L ABG pO2 212 H ABG HCO3 20 L ABG O2 Content 14.1 ABG Base Excess -4.9 L ABG Methemoglobin 0.8 Hemoglobin 9.9 L Carboxyhemoglobin 0.3 O2 Delivery Device Ventilator Vent Setting See comments Inspired O2 60 Critical Value No Sodium Potassium Chloride Carbon Dioxide Anion Gap BUN Creatinine Estimated GFR POC Glucose 122 H Random Glucose Calcium Prot Corrected Calcium Phosphorus Magnesium Total Bilirubin AST ALT Alkaline Phosphatase Total Protein Albumin Blood Type Blood Type Recheck Antibody Screen Blood Bank Comment 11/25/17 11/25/17 11/25/17 04:00 04:00 04:00 WBC RBC Hgb Hct MCV MCH MCHC RDW Plt Count MPV Prelim Diff (Auto) Neut % (Auto) Lymph % (Auto) [place] % (Auto) Eos % (Auto) Baso % (Auto) Neut # (Auto) Lymph # (Auto) [place] # (Auto) Eos # (Auto) Baso # (Auto) WBC Differential Seg Neuts % (Manual) Band Neuts % (Manual) Lymphocytes % (Manual) Monocytes % (Manual) Metamyelocytes % (Man) Abs Neuts (Manual) Differential Comment Platelet Estimate Platelet Morphology PT 19.9 H INR 2.0 APTT 47.1 H D Fibrinogen Puncture Site Patient Temperature O2 Saturation ABG pH ABG pCO2 ABG pO2 ABG HCO3 ABG O2 Content ABG Base Excess ABG Methemoglobin Hemoglobin Carboxyhemoglobin O2 Delivery Device Vent Setting Inspired O2 Critical Value Sodium 143 Potassium 4.6 Chloride 106 D Carbon Dioxide 26.1 Anion Gap 11 BUN 37 H Creatinine 5.46 H Estimated GFR 14 L POC Glucose Random Glucose 153 H Calcium 6.0 L* D Prot Corrected Calcium 7.2 L* D Phosphorus 5.0 H Magnesium 1.3 L Total Bilirubin 4.0 H AST 918 H ALT 876 H Alkaline Phosphatase 37 L Total Protein 4.6 L Albumin 2.9 L Blood Type A Positive Blood Type Recheck Not needed Antibody Screen Negative Blood Bank Comment 11/25/17 11/25/17 11/25/17 06:20 09:48 10:15 WBC RBC Hgb Hct MCV MCH MCHC RDW Plt Count MPV Prelim Diff (Auto) Neut % (Auto) Lymph % (Auto) [place] % (Auto) Eos % (Auto) Baso % (Auto) Neut # (Auto) Lymph # (Auto) [place] # (Auto) Eos # (Auto) Baso # (Auto) WBC Differential Seg Neuts % (Manual) Band Neuts % (Manual) Lymphocytes % (Manual) Monocytes % (Manual) Metamyelocytes % (Man) Abs Neuts (Manual) Differential Comment Platelet Estimate Platelet Morphology PT INR APTT Fibrinogen 434 H Puncture Site Patient Temperature O2 Saturation ABG pH ABG pCO2 ABG pO2 ABG HCO3 ABG O2 Content ABG Base Excess ABG Methemoglobin Hemoglobin Carboxyhemoglobin O2 Delivery Device Vent Setting Inspired O2 Critical Value Sodium Potassium Chloride Carbon Dioxide Anion Gap BUN Creatinine Estimated GFR POC Glucose 123 H Random Glucose Calcium Prot Corrected Calcium Phosphorus Magnesium Total Bilirubin AST ALT Alkaline Phosphatase Total Protein Albumin Blood Type Blood Type Recheck Antibody Screen Blood Bank Comment 11/25/17 11/25/17 11/25/17 11:08 13:45 16:19 WBC RBC Hgb Hct MCV MCH MCHC RDW Plt Count MPV Prelim Diff (Auto) Neut % (Auto) Lymph % (Auto) [place] % (Auto) Eos % (Auto) Baso % (Auto) Neut # (Auto) Lymph # (Auto) [place] # (Auto) Eos # (Auto) Baso # (Auto) WBC Differential Seg Neuts % (Manual) Band Neuts % (Manual) Lymphocytes % (Manual) Monocytes % (Manual) Metamyelocytes % (Man) Abs Neuts (Manual) Differential Comment Platelet Estimate Platelet Morphology PT 14.0 H INR 1.4 APTT Fibrinogen Puncture Site Patient Temperature O2 Saturation ABG pH ABG pCO2 ABG pO2 ABG HCO3 ABG O2 Content ABG Base Excess ABG Methemoglobin Hemoglobin Carboxyhemoglobin O2 Delivery Device Vent Setting Inspired O2 Critical Value Sodium Potassium Chloride Carbon Dioxide Anion Gap BUN Creatinine Estimated GFR POC Glucose 136 H 114 H Random Glucose Calcium Prot Corrected Calcium Phosphorus Magnesium Total Bilirubin AST ALT Alkaline Phosphatase Total Protein Albumin Blood Type Blood Type Recheck Antibody Screen Blood Bank Comment Microbiology 11/24/17 09:54 Sputum - Endotracheal Gram Stain - Final 11/24/17 09:54 Sputum - Endotracheal Sputum Culture - Preliminary gram negative rods 11/23/17 11:06 Blood - Line Aerobic Blood Culture - Preliminary No growth in 2 days 11/23/17 11:06 Blood - Line Anaerobic Blood Culture - Preliminary No growth in 2 days 11/23/17 04:50 Blood - Line Aerobic Blood Culture - Preliminary No growth in 2 days 11/23/17 04:50 Blood - Line Anaerobic Blood Culture - Preliminary No growth in 2 days - Imaging Impressions Chest X-Ray 11/25/17 00:00 CONCLUSION: Right central line in superior vena cava without pneumothorax. Relatively stable basilar airspace disease and pleural effusions. Assessment and Plan (1) Bowel obstruction Status: Acute Code(s): K56.609 - Unspecified intestinal obstruction, unspecified as to partial versus complete obstruction - Plan Mr. Marshall is a 47-year-old male patient who presented to the emergency room this morning with complaint of severe generalized abdominal pain which he describes as cramping. associated with nausea and emesis. Patient states he has no medical history, no surgical history, and no known drug allergies. Our service has been consulted to evaluate possible pancreatic/duodenal mass. Patient states onset of symptoms started last night after he ate a large meal at the [employer]. Patient denies ever having pain like this before and states he had at least 10-15 episodes of vomiting. Patient denies fever, diarrhea, constipation. States pain is constant and there are no alleviating or aggravating factors.He reports having a soft brown BM of "normal " quantity 2 days ago and none since noted. States he normally has 1-2 soft brown bowel movements daily. Patient unsure if he has had been able to pass gas over the last 24 hours. Reports he was feeling well without any symptoms of abdominal pain nausea or vomiting prior to today. Patient has no history of abdominal obstruction or abdominal surgical procedures. Patient denies any blood in emesis or noted bleeding in stool. Denies ever having had EGD or colonoscopy in the past. Denies any use of NSAIDs or blood thinners. Denies any known family history for any gastrointestinal disorders. Denies use of tobacco or alcohol. Upon arrival to emergency room patient had NG placed with documented drainage of over a liter of yellow fluid. Patient asked for NG to be removed due to discomfort but is now willing to have same replaced. Pancreatic/duodenal mass/obstruction CT abdomen and pelvis done on admission revealed the following findings : Examination of the lung bases demonstrates no abnormality. No pleural fluid is identified. No pulmonary nodules are present. The liver and spleen are normal in size and no focal defects are identified. There is severe gastric distention to the level of the third portion of the duodenum where there is decompressed distal duodenum and small bowel. There is a possible mass in the pancreas as etiology. Benign or malignant stricture would be considered and endoscopy is recommended to further evaluate this. The adrenal glands and kidneys appear normal bilaterally. No hydronephrosis or mass lesions are identified. Examination of the pelvis demonstrates no evidence of free fluid or pelvic mass. No abnormally enlarged inguinal or retroperitoneal lymph nodes are present. The bladder is unremarkable. High-grade obstruction at the level of the third portion of the duodenum with massive gastric distention. There is equivocal mass in the pancreatic head. Endoscopy is recommended to evaluate the stricture. WBC count 12.1 hemoglobin 15.7 hematocrit 48.1 total bilirubin 2.8 AST 22 ALT 34 alk phos 63 lipase 3687 CA 199 antigen 5.0. 11/22/2017-NG tube placed, immediate return of estimated 700-800 cc of bile colored drainage. Patient reporting much less abdominal discomfort. 11/23/2017-approximately 0400 patient underwent cardiac arrest, was intubated via ET tube and mechanically ventilated. Patient is now postoperative exploratory laparotomy with large mid abdominal surgical wound attached to suction. Per surgery, there was a large amount of food found in stomach. Oral gastric as well as nasogastric in place attached to low wall suction draining brown fluid. Dr. Gudino at bedside, plan is for patient to return to surgery on Sunday for possible subtotal gastrectomy; at which time he will attempt to visualize stomach and duodenum intraoperatively. 11/24/2017 status post cardiac arrest PEA on 11/23/2017 patient continues to be critically ill in the intensive care setting, midline abdominal wound incision open with sponge and dressing no obvious bowel sounds NG tube draining dark bilious fluid, patient's continues on ventilator support and blood pressure meds PT last drawn 1.5 will recheck in the a.m. no obvious bleeding hemoglobin 12.6 and WBC count 7.5. According to the record plan for surgery again Sunday and intraoperative enteroscopy to be done. Currently no family present, no GI procedures for now but patient may need endoscopy when he is better. gastric perforation, sepsis, large meal at [employer] Continues with acute abdomen 11/25/2017 patient continues with critical event from gastric perforation. Plan this p.m. is to be reevaluated back in surgery. Current labs show shock liver and increasing bilirubin 4.9, AST 918 ALT 876 PT/INR 2 with increased coagulopathy No anemia current hemoglobin 10 Leukocytosis WBC count 13.3, Septic shock NG OG tubes both draining dark bilious fluid, ileus absent bowel sounds GI will evaluate tomorrow for any acute changes but will probably sign off at this point pending patient's improvement. Currently patient is critically ill and is not and the need of any GI procedures. Plan Diet n.p.o. for now NG /OG tube to low intermittent suction Monitor labs with special attention to hemoglobin, LFTs, INR, lipase Monitor any changes and abdominal bowel sounds or distention Reevaluate and further recommendations to follow once patient is stable Patient was seen per myself and Dr. Bee, note was written on his behalf
[2017-11-25] MEDS ORDERED: Sod Chloride 0.9% Inj 1,000 ML IV.CONT ONE (17:21)
--- NOTE | 2017-11-25 19:23 | P.OP ---
- Preoperative Diagnosis (1) Gastric perforation without ulcer - Postoperative Diagnosis (1) Gastric necrosis Date of procedure: 11/25/17 Procedure: Exploratory laparotomy, subtotal gastrectomy, placement of AB Thera VAC dressing Anesthesia: GETA Surgeon: Nick Wellington MD Phone Manager: Dr. Martin Gudino Estimated blood loss (mL): 25 Pathology: other (Necrotic stomach) Operation and Findings: This procedure was assisted by a board certified general surgeon Dr. Martin Gudino. The complexity of the surgery and the need for improved safety and efficiency resulted in the assistance of a board certified general surgeon. Necrotic stomach is an unusual case to encounter and Dr. Gudino performed exposure, use of the harmonic scalpel to divide the greater curvature and lesser curvature, stapling proximally and distally and assistance with placement of the abdomen or back. Description of procedure in detail Patient was identified as Pk Marshall, taken to the operating room and placed in a supine position. He came to the OR intubated. Sequential compression device Delgado catheter were in place. Nasogastric tube was in place. A timeout procedure was performed. Following completion timeout procedure everyone's satisfaction within the room and continuance of general anesthesia the previous VAC pack dressing was removed. Exploration immediately identified a large amount of peritoneal fluid and a necrotic stomach. Using appropriate retraction and an Chinmay wound retractor and the harmonic scalpel the vascular attachments along the greater curvature and lesser curvature of the stomach were divided. The distal stomach appeared to have reasonable blood supply about 4-6 cm proximal to the pylorus. This was stapled across using a green staple load and linear cutting 75 stapling device with 2 loads of. This allowed for using the stomach as a handle and taking down the short gastric vessels between the necrotic stomach and the spleen which was left intact and uninjured. Dissection around the fundus of the stomach to the GE junction was performed. Occluded vascular attachments along the lesser curve were taken down similarly. The stomach appeared to be necrotic all the way to the GE junction. The distal esophagus was identified and divided with a contour stapling device. 2 2-0 Prolene sutures were placed on the right and left edge of the divided esophagus for identification in the future. Staple line over the distal stomach was imbricated with multiple interrupted 3-0 silk sutures. The upper abdomen was copiously irrigated with warm saline. Was no evidence of hemorrhage. Transverse colon was lifted up and the ligament of Treitz was identified. Palpation of the third and fourth portion of the duodenum demonstrated no obvious obstructing mass. An ab Thera VAC was then placed in a standard fashion customizing it in size. It was connected to suction and there was no evidence of leak. The patient tolerated the procedure without apparent complication. Sponge needle and instrument counts were correct at the end of the case. The patient was transported to [facility] in critical condition.
[2017-11-25] MEDS: Dextrose 50% in Water 50 ML Vial IV.PUSH PRN (23:46)
[2017-11-26] MEDS: Dextrose 50% in Water 50 ML Vial IV.PUSH PRN (00:14)
[2017-11-26] MEDS: fentaNYL 10 mcg/mL Premix Drip 2,500 MCG/250 ML BAG IV.SIG PRN (04:00)
[2017-11-26] MEDS: Oral Hygiene Kit OROPHARYNG SCH ×3 (04:11→17:01)
[2017-11-26 05:38] LABS: INR 1.4 Ratio; Prothrombin Time 14.5 sec (9.8-11.6)
[2017-11-26 05:39] LABS: Hemoglobin 8.6 gm/dL (13.0-17.0); Mean Corpuscular HGB Conc 34.2 % (32.0-36.0); Mean Corpuscular Hemoglobin 31.6 pg (27.0-34.0); Mean Corpuscular Volume 92.4 fL (80.0-100.0); Mean Platelet Volume 9.8 fL (7.0-11.0); Platelet Count 38 th/mm3 (150-450); Red Blood Count 2.71 mil/mm3 (4.50-5.90); Red Cell Distribution Width 15.2 % (11.6-17.2); White Blood Count 10.1 th/mm3 (4.0-11.0)
[2017-11-26 06:02] LABS: Albumin 2.9 g/dL (3.4-5.0); Calcium 5.8 mg/dL (8.5-10.1); Carbon Dioxide 27.5 meq/L (21.0-32.0); Potassium 4.3 meq/L (3.5-5.1); Total Protein 5.2 g/dL (6.4-8.2)
[2017-11-26] MEDS: Piperacil/Tazo 2.25 GM Premix 50 ML IV.SIG SCH ×2 (06:04→11:45)
[2017-11-26] MEDS: Insulin NovoLOG Aspart Correctional Sugar Inj SQ SCH ×2 (06:04→13:11)
[2017-11-26] MEDS: Hydrocortisone Sod Succinate 100 MG Vial IV.PUSH SCH ×2 (06:04→11:45)
[2017-11-26] MEDS: Albumin Human 5% Inj 250 ML IV.SIG SCH ×2 (06:04→11:45)
[2017-11-26] MEDS: Sodium Bicarbonate 8.4% Inj 150 MEQ in Dextrose 5% in Water Inj 850 ML IV.CONT SCH ×2 (06:05)
--- NOTE | 2017-11-26 06:18 | XR ---
EXAM DATE: 11/26/2017 4:00 AM EDT AGE/SEX: 47 years / Male INDICATIONS: Aspiration, hypoxemia. CLINICAL DATA: This is the patient's subsequent encounter. Patient reports that signs and symptoms h ave been present for 4 - 6 days and indicates a pain score of Nonresponsive. MEDICAL/SURGICAL HISTORY: Non-responsive. . Central line. COMPARISON: C, CHEST 1V SINGLE AP, 11/25/2017. . FINDINGS: The ET tube and bilateral internal jugular central lines are well placed. The NG tube tip is at the E G junction and should be advanced. The heart size is normal. This increased density at the bases bein g worse on the left. There is silhouetting the left hemidiaphragm. CONCLUSION: NG tube tip at the EG junction. This should be advanced. Bibasilar areas of atelectasis or consolidation being worse on the left. Electronically signed by: Jordi Martinez MD 11/26/2017 6:17 AM EDT
--- NOTE | 2017-11-26 07:00 | P.PNCC ---
Subjective Subjective Remarks/Hospital Course: 47-year-old -[place] male with reportedly no past medical or past surgical history who was admitted to hospitalist service 11/22/17 after presenting with abdominal pain, nausea, vomiting. He had CT abd/pelvis with massive gastric distention. NG tube had been placed. I was called to patient's bedside for CODE BLUE PEA arrest. CPR was ongoing and patient had massive abdominal distension and gastric regurgitant in the airway. He was emergently intubated and large amount of gastric secretions suctioned from oropharynx. After 21 minutes of CPR, ROSC was obtained and he was profoundly hypotensive. Continued aggressive fluid resuscitation and initiated dopamine. He was transferred to [facility] where CVL and R radial art line were placed and he was given 7 L of crystalloid and albumin. CXR demonstrated pneumoperitoneum and Dr. Martin Gudino was called emergently and he immediately contacted OR for emergent ex lap. He had intraabdominal hypertension with IAP of 40 mmHg, though fortunately was able to be ventilated adequately after rocuronium 50 mg IV and was transferred to OR. Subjective: 11/24 Dr. Gudino took to the operating room early in the morning on 11/23 and discovered tension pneumoperitoneum, massive gastric distension, ischemia of the proximal 2/3 of the stomach and large gastric perforation with massive intraperitoneal contamination with food particles. Dr. Isaacs placed 2 NGT and decompressed 2 L of succus. Patient had initial improvement in vital signs in the immediate postoperative period, however he subsequently became hypotensive requiring upward titration of levophed and addition of vasopressin and stress dose hydrocortisone. He remains on levophed 10 mcg/min, neosynephrine 80 mcg/ min, vasopressin 0.04 units/min with overall vasopressor requirement weaning overnight. He is oliguric and creatinine is continuing to climb. He was given 2 L of crystalloid and albumin overnight. He does have significant fluid losses with combination of abdominal dressing and NGT output, so I will give an additional L of crystalloid now to monitor hourly response as he certainly does not appear volume overloaded. Nonetheless Flotrac numbers are suggesting adequate volume status and we may be seeing the consequence of ischemic ATN. May ultimately require HD, however not at this time. Abdomen remains open and plan is to re-explore 11/25. 11/25: Patient has acceptable hemodynamics by Flotrac but remains septic with requirements for levo fed 7 mics per minute and vasopressin 0.04 units/min for blood pressure support. This has improved overnight and the Bhavesh-Synephrine support has been weaned off completely. Acid base balance is acceptable. ATN has developed which will undoubtedly require hemodialysis. Potassium level is normal. He is at increased risk for an anesthetic obviously but there is an urgent need to check for residual gastric necrosis. 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 Since the source control surgery the maintenance of more normal acid-base balance is been this difficult. Patient remains an uric with a rising creatinine above 6.0. Objective Vital Signs / I&O: Vital Signs 11/25/17 07:55 11/25/17 08:00 11/25/17 10:00 Temperature 97.7 F Pulse Rate 83 90 Respiratory Rate 14 14 Blood Pressure 96/58 L Pulse Oximetry 96 96 11/25/17 10:37 11/25/17 10:56 11/25/17 11:13 Temperature 99.7 F H 99.6 F 99.2 F Pulse Rate 86 85 85 Respiratory Rate 14 14 14 Blood Pressure Pulse Oximetry 96 96 96 11/25/17 11:22 11/25/17 11:32 11/25/17 12:00 Temperature 99.2 F 98.8 F 98.8 F Pulse Rate 88 96 H 78 Respiratory Rate 14 15 14 Blood Pressure 102/64 Pulse Oximetry 96 95 96 11/25/17 12:35 11/25/17 14:00 11/25/17 16:00 Temperature 99.1 F Pulse Rate 80 83 Respiratory Rate 14 14 Blood Pressure Pulse Oximetry 96 98 11/25/17 17:01 11/25/17 19:38 11/25/17 20:00 Temperature 98.1 F Pulse Rate 76 Respiratory Rate 14 14 14 Blood Pressure Pulse Oximetry 98 94 L 94 L 11/25/17 22:00 11/26/17 00:00 11/26/17 02:00 Temperature 98.7 F Pulse Rate 76 82 80 Respiratory Rate 14 Blood Pressure Pulse Oximetry 98 11/26/17 04:00 11/26/17 04:57 11/26/17 06:00 Temperature 98.4 F Pulse Rate 80 82 Respiratory Rate 14 14 Blood Pressure Pulse Oximetry 98 98 Intake & Output 11/25/17 11/25/17 11/26/17 06:59 18:59 06:59 Intake Total 3200 / 3200 3305 / 3305 2150 / 2150 Output Total 1163 / 1163 1180 / 1180 925 / 925 Balance 2036 / 2036 2125 / 212 1225 / 1225 Weight 98.8 kg Intake: IV 3200 / 3200 2050 / 0 1850 / 1850 Sodium Bicarbonate 8.4% Inj 150 2000 / 2000 1000 / 1000 1000 / 1000 MEQ In D5W Inj 850 ML @ 75 mls /hr IV.CONT .[id number] [facility] Rx#: [id number] Pitressin Inj 40 UNIT In NS Inj 100 / 100 100 / 100 98 ML @ 0.04 UNITS/MIN 6 mls/ hr IV.CONT CONT [facility] Rx#: [id number] Buminate 5% Inj 250 ML @ 250 500 / 500 250 / 250 500 / 500 mls/hr IV.SIG Q6HR [facility] Rx#: [id number] Diflucan 200 mg Premix Bag 100 100 / 100 ML @ 100 mls/hr IV.SIG Q24H [facility] Rx#:[id number] Levophed-Dextrose 4 mg/250 ml 500 / 500 250 / 250 Drip 4 mg In 250 ml @ 2 MCG/MIN 7.5 mls/hr IV.SIG TITRATE PRN Rx#:[id number] Zosyn 2.25 GM Premix 50 ML @ 100 / 100 100 / 100 100 / 100 100 mls/hr IV.SIG Q6H [facility] Rx#: [id number] fentaNYL 10 mcg/mL Premix Drip 250 / 250 250 / 250 2,500 mcg In 250 ml @ 50 MCG/HR 5 mls/hr IV.SIG TITRATE PRN Rx #:[id number] Anesthesia Amount 300 / 300 Other 296 / 296 Intake (Blood Product) Amt 959 / 959 Plasma Thawed 5 Day Cp2d Unit 376 / 376 [id number] Plasma Thawed 5 Day Cp2d Unit 292 / 292 [id number] Plasma Thawed 5 Day Cp2d Unit 291 / 291 [id number] Plasma Thawed 5 Day Cp2d Unit 0 / 0 [id number] Output: Stool 0 / 0 Estimated Blood Loss 25 / 25 Urine Amount (Catheter) 38 / 38 5 / 5 0 / 0 Indwelling Urethral Catheter 38 / 38 5 / 5 0 / 0 Gastric Drainage 625 / 625 675 / 675 50 / 50 Orogastric Tube 450 / 450 475 / 475 Right Nare Nasogastric Tube 175 / 175 200 / 200 50 / 50 Wound Drainage 500 / 500 500 / 500 # 1 Abdomen 500 / 500 500 / 500 Wound Vac Amount 850 / 850 Midline Abdomen 850 / 850 Other: Mode Setting Midline Abdomen Continuous Result Diagrams: 11/26/17 05:15 11/26/17 05:15 Objective Remarks: Drips: Fentanyl 125 mcg/h Levophed 8 mcg/min Vasopressor 0.04units/min Bhavesh-Synephrine off Sterile water with bicarb at 150 mL/h GENERAL: Critically ill male, orotracheally intubated. SKIN: Warm, dry and adequately perfused. HEAD: Atraumatic. Normocephalic. EYES: Pupils equal and round, pinpoint and sluggishly reactive. No scleral icterus. No injection or drainage. ENT: No nasal bleeding or discharge. Mucous membranes pink and moist. Orotracheally intubated. NECK: Trachea midline. VASC: Right IJ central venous line in place with dressing clean/dry/intact. Left femoral art line in place with dressing clean/dry and intact with distal perfusion left leg intact. CARDIOVASCULAR: Regular rate and rhythm, sinus rhythm on the monitor with rate in the 80s. No murmurs rubs or gallops. Neck veins full. RESPIRATORY: Orotracheally intubated on PRVC tidal volume 500/rate 16/I time 1.2/PEEP 8/FiO2 60%. Sats are 97% GASTROINTESTINAL: NGT and OGT in place to LIWS with most of output from NGT, coffee ground appearance. Abdomen open with VAC dressing in place to suction, overall abdomen is soft, non tympanitic, few bowel sounds. MUSCULOSKELETAL: Extremities without clubbing, cyanosis, or edema. No obvious deformities. Tepid but well-perfused. NEUROLOGICAL: Eyes open when stimulated, moves extremities spontaneously. Breathes spontaneously over ventilatory rate. Assessment and Plan - Problem List (1) Septic shock Code(s): A41.9 - Sepsis, unspecified organism; R65.21 - Severe sepsis with septic shock Status: Acute (2) Acute respiratory failure Code(s): J96.00 - Acute respiratory failure, unspecified whether with hypoxia or hypercapnia Status: Acute (3) Pneumoperitoneum Code(s): K66.8 - Other specified disorders of peritoneum Status: Resolved (4) Cardiac arrest Code(s): I46.9 - Cardiac arrest, cause unspecified Status: Resolved (5) JACLYN (acute kidney injury) Code(s): N17.9 - Acute kidney failure, unspecified Status: Acute (6) Transaminitis Code(s): R74.0 - Nonspecific elevation of levels of transaminase and lactic acid dehydrogenase [LDH] Status: Acute (7) Abdominal compartment syndrome Code(s): T79.A3XA - Traumatic compartment syndrome of abdomen, initial encounter Status: Resolved (8) Ischemic hepatitis Code(s): K75.9 - Inflammatory liver disease, unspecified Status: Acute (9) Hypernatremia Code(s): E87.0 - Hyperosmolality and hypernatremia Status: Acute (10) Hyperchloremic metabolic acidosis Code(s): E87.2 - Acidosis Status: Acute (11) Lactic acidemia Code(s): E87.2 - Acidosis Status: Acute (12) Leukopenia Code(s): D72.819 - Decreased white blood cell count, unspecified Status: Resolved - Assessment and Plan Plan: NEURO: Acute encephalopathy secondary to sepsis Unable to evaluate for ?anoxia at this time as he requires ongoing analgosedation for open abdomen and vent synchrony. Will evaluate more fully when stabilized. Fentanyl for analgosedation sedation. Target RASS -3 while abdomen is open. RESP: Acute respiratory failure Ventilator Bundle. PRVC PEEP 8 FIO2 80. Wean based on sats. Chest x-ray shows bilateral aspiration, probably from cardiac arrest and subsequent treatment. CV: Septic shock Lactic acidemia On Flotrac for hemodynamic monitoring. Wean multiple pressors as tolerated for MAP >65. Levophed, phenylephrine, vasopressin. On stress dose hydrocortisone, wean when vasopressor requirement resolves. IVF as per below. GI: S/p Emergent Exlap, primary repair of gastrotomy, abdominal washout of large amount of intraperitoneal contamination by Dr. Gudino 11/23. Pneumoperitoneum, resolved Gastric outlet/SBO Intra-abdominal compartment syndrome, resolved NGT and OGT in place to LIWS. NPO. Open abdomen with tentative plan for re-exploration 11/25. There was discussion of possible EGD while patient in OR, GI states would defer at this time. Elevated lipase ?secondary to perforated viscous. GI following Transaminitis- likely secondary to sepsis/ischemic hepatitis. Trending down. FEN/RENAL: JACLYN with oliguria Hypernatremia Hyperchloremic acidosis and lactic acidosis Delgado in place, continue to monitor hourly urine output. Monitor electrolytes and replace as indicated. Will adjust fluids to include dextrose with D5 150 mill equivalents of bicarb at 150 mL/h. Monitor CMP daily. on 5% albumin q6 ID: Intraabdominal sepsis secondary to gastric perforation. Ex lap for source control per Dr. Gudino 11/23 Sent 2 sets of blood cultures 11/23 which are pending. Chest x-ray 11/24 shows left lower lobe infiltrate. Received empiric Zosyn 2.25 IV q6, Diflucan 400 mg load then 200 mg IV q24 hours , Vancomycin 1 gram IV x1. Will continue Zosyn and diflucan. HEME: DIC -- Thrombocytopenia, hypofibrinogenemia, prolonged INR. Anemia of critical illness Type and cross sent. F/u coags 11/25. Transfuse 4 units fresh frozen plasma today Check fibrinogen today. ENDO: Acute hyperglycemia secondary to sepsis, resolved. On insulin sliding scale PROPH: SCD for DVT prophylaxis. Hold on pharmacologic DVT prophylaxis at this time due to presence of coffee ground output and anticipated return to OR. Protonix 40 mg IV daily for stress ulcer prophylaxis ACCESS: Right IJ central venous line placed 11/23 #3. L femoral art line placed in OR 11/23 #3 Right radial art line placed 11/23/17, discontinued . Full code Overall impression: This gentleman remains critically ill with respiratory failure, renal failure, recent intra-abdominal catastrophe requiring reexploration, and coagulopathy. He remains in septic shock requiring vasopressor support. He is unstable and at high risk for early . Critical care time 65 minutes aside from procedures. (2) Acute respiratory failure Qualifiers: Respiratory failure complication: hypoxia Qualified Code(s): J96.01 - Acute respiratory failure with hypoxia
[2017-11-26] MEDS: Vasopressin Inj 40 UNIT in Sodium Chlor 0.9% Inj 98 ML IV.CONT SCH (07:12)
[2017-11-26] MEDS: Sodium Chloride 0.9% 2 ML Flush BID IV.FLUSH SCH (08:01)
[2017-11-26] MEDS: Chlorhexidine 0.12% Oral Kit 15 ML UDC OROPHARYNG SCH (08:01)
[2017-11-26] MEDS ORDERED: Dextrose 10% in Water Inj 1,000 ML IV.SIG SCH (08:30)
[2017-11-26 08:46] LABS: Acanthocytes Occ; Lymphocytes 6 % (9-44); Metamyelocytes 1 % (0-1); Monocytes 8 % (0-8); Ovalocytes 1+; Platelet Morphology Normal (Normal); Tallied Nucleated RBC 1 (0-0)
[2017-11-26] MEDS: Pantoprazole Inj 40 MG Vial IV.PUSH SCH (09:54)
[2017-11-26] MEDS ORDERED: Heparin 10,000 UNITS/10 ML Vial (for IV use) OTHER PRN ×2 (10:40)
[2017-11-26] MEDS ORDERED: Sod Chloride 0.9% Inj 1,000 ML OTHER PRN ×2 (10:40)
[2017-11-26] MEDS ORDERED: Acetaminophen 325 MG Tablet PO PRN (10:40)
[2017-11-26] MEDS ORDERED: Sod Chloride 0.9% Inj 1,000 ML IV.CONT PRN (10:40)
[2017-11-26] MEDS ORDERED: Albumin Human 25% Inj 100 ML IV.SIG PRN (10:40)
[2017-11-26] MEDS ORDERED: Gelatin 12 MM/7 MM Topical Foam TOPICAL PRN (10:40)
--- NOTE | 2017-11-26 10:45 | P.PNNP ---
Subjective Interval history: Events noted. Patient had subtotal gastrectomy. Wound vac over the abdominal wound, incision not closed. On Fentanyl and Vasopressin drips. BP is better. Demonstrates generalized edema, his weight is up by about 14kg since admission. He is on D10 drip. He is oligoanuric. Physical Exam Vital signs: Vital Signs 11/25/17 10:56 11/25/17 11:13 11/25/17 11:22 Temperature 99.6 F 99.2 F 99.2 F Pulse Rate 85 85 88 Respiratory Rate 14 14 14 Blood Pressure Pulse Oximetry 96 96 96 11/25/17 11:32 11/25/17 12:00 11/25/17 12:35 Temperature 98.8 F 98.8 F Pulse Rate 96 H 78 Respiratory Rate 15 14 14 Blood Pressure 102/64 Pulse Oximetry 95 96 96 11/25/17 14:00 11/25/17 16:00 11/25/17 17:01 Temperature 99.1 F Pulse Rate 80 83 Respiratory Rate 14 14 Blood Pressure Pulse Oximetry 98 98 11/25/17 19:38 11/25/17 20:00 11/25/17 22:00 Temperature 98.1 F Pulse Rate 76 76 Respiratory Rate 14 14 Blood Pressure Pulse Oximetry 94 L 94 L 11/26/17 00:00 11/26/17 02:00 11/26/17 04:00 Temperature 98.7 F 98.4 F Pulse Rate 82 80 80 Respiratory Rate 14 14 Blood Pressure Pulse Oximetry 98 98 11/26/17 04:57 11/26/17 06:00 11/26/17 08:00 Temperature 98.5 F Pulse Rate 82 82 Respiratory Rate 14 14 Blood Pressure Pulse Oximetry 98 96 11/26/17 08:39 11/26/17 10:00 Temperature Pulse Rate 82 Respiratory Rate 14 Blood Pressure Pulse Oximetry 96 Intake & Output 11/25/17 11/26/17 11/26/17 18:59 06:59 18:59 Intake Total 3305 / 3305 2250 / 2250 350 / 350 Output Total 1180 / 1180 925 / 925 Balance 2125 / 2125 1325 / 1325 350 / 350 Weight 98.8 kg Intake: IV 2049 / 2049 1950 / 1950 350 / 350 Sodium Bicarbonate 8.4% Inj 150 1000 / 1000 1000 / 1000 0 / 0 MEQ In D5W Inj 850 ML @ 75 mls /hr IV.CONT .[id number] [facility] Rx#: [id number] Pitressin Inj 40 UNIT In NS Inj 100 / 100 100 / 100 98 ML @ 0.04 UNITS/MIN 6 mls/ hr IV.CONT CONT [facility] Rx#: [id number] Buminate 5% Inj 250 ML @ 250 250 / 250 500 / 500 250 / 250 mls/hr IV.SIG Q6HR [facility] Rx#: [id number] Diflucan 200 mg Premix Bag 100 100 / 100 100 / 100 ML @ 100 mls/hr IV.SIG Q24H [facility] Rx#:[id number] Levophed-Dextrose 4 mg/250 ml 250 / 250 Drip 4 mg In 250 ml @ 2 MCG/MIN 7.5 mls/hr IV.SIG TITRATE PRN Rx#:[id number] Zosyn 2.25 GM Premix 50 ML @ 100 / 100 100 / 100 100 mls/hr IV.SIG Q6H [facility] Rx#: [id number] fentaNYL 10 mcg/mL Premix Drip 250 / 250 250 / 250 2,500 mcg In 250 ml @ 50 MCG/HR 5 mls/hr IV.SIG TITRATE PRN Rx #:[id number] Anesthesia Amount 300 / 300 Other 296 / 296 Intake (Blood Product) Amt 959 / 959 Plasma Thawed 5 Day Cp2d Unit 376 / 376 [id number] Plasma Thawed 5 Day Cp2d Unit 292 / 292 [id number] Plasma Thawed 5 Day Cp2d Unit 291 / 291 [id number] Plasma Thawed 5 Day Cp2d Unit 0 / 0 [id number] Output: Stool 0 / 0 Estimated Blood Loss 25 / 25 Urine Amount (Catheter) 5 / 5 0 / 0 Indwelling Urethral Catheter 5 / 5 0 / 0 Gastric Drainage 675 / 675 50 / 50 Orogastric Tube 475 / 475 Right Nare Nasogastric Tube 200 / 200 50 / 50 Wound Drainage 500 / 500 # 1 Abdomen 500 / 500 Wound Vac Amount 850 / 850 Midline Abdomen 850 / 850 Other: Mode Setting Midline Abdomen Continuous Continuous Narrative: GENERAL: Critically ill-appearing -[place] male who is now orotracheally intubated. SKIN: warm, delayed cap refill. HEAD: Atraumatic. Normocephalic. EYES: Pupils equal and round, 3 mm and reactive. ENT: No nasal bleeding or discharge. NECK: Trachea midline. No JVD. CARDIOVASCULAR: RRR RESPIRATORY: vented breath sounds bilaterally. GASTROINTESTINAL: Midline surgical wound, wound vac in place. Absent bowel sounds. NEUROLOGICAL: unresponsive, sedated. - Urinary Catheter Management Indwelling Urethral Catheter Cath placed during this visit: yes Urethral indwelling: Yes Reason for continuing: Hourly intake/output Insertion date: 11/23/17 Insertion time: 05:00 Assessment and Plan - Assessment (1) JACLYN (acute kidney injury) Code(s): N17.9 - Acute kidney failure, unspecified Status: Acute Plan: oligoanuric. Positive fluid balance. Has a VasCath. Hemodynamically more stable today. We will go ahead with attempt to dialyze him today. Minimize IVF administration. Avoid nephrotoxic agents. Most likely has developed ATN. (2) Septic shock Code(s): A41.9 - Sepsis, unspecified organism; R65.21 - Severe sepsis with septic shock Status: Acute Plan: Due to perforated viscus. Antibiotics. Supportive care. (3) Pneumoperitoneum Code(s): K66.8 - Other specified disorders of peritoneum Status: Resolved Plan: due to perforated viscus. s/p subtotal gastrectomy.
[2017-11-26 12:18] VITALS: O2SAT 98
--- NOTE | 2017-11-26 12:40 | P.PNGI ---
Subjective Interval history: Patient mechanically ventilated via ET tube, per nurse patient able to follow simple commands. Eyes open spontaneously, patient undergoing hemodialysis at bedside. <Karen Oliveira - Last Filed: 11/26/17 12:29> Physical Exam Vital signs: Vital Signs 11/25/17 12:35 11/25/17 14:00 11/25/17 16:00 Temperature 99.1 F Pulse Rate 80 83 Respiratory Rate 14 14 Pulse Oximetry 96 98 11/25/17 17:01 11/25/17 19:38 11/25/17 20:00 Temperature 98.1 F Pulse Rate 76 Respiratory Rate 14 14 14 Pulse Oximetry 98 94 L 94 L 11/25/17 22:00 11/26/17 00:00 11/26/17 02:00 Temperature 98.7 F Pulse Rate 76 82 80 Respiratory Rate 14 Pulse Oximetry 98 11/26/17 04:00 11/26/17 04:57 11/26/17 06:00 Temperature 98.4 F Pulse Rate 80 82 Respiratory Rate 14 14 Pulse Oximetry 98 98 11/26/17 08:00 11/26/17 08:39 11/26/17 10:00 Temperature 98.5 F Pulse Rate 82 82 Respiratory Rate 14 14 Pulse Oximetry 96 96 11/26/17 12:15 Temperature Pulse Rate Respiratory Rate 14 Pulse Oximetry 98 Intake & Output 11/25/17 11/26/17 11/26/17 18:59 06:59 18:59 Intake Total 3305 / 3305 2250 / 2250 350 / 350 Output Total 1180 / 1180 925 / 925 Balance 2125 / 2125 1325 / 1325 350 / 350 Weight 98.8 kg Intake: IV 2049 / 2049 1950 / 1950 350 / 350 Sodium Bicarbonate 8.4% Inj 150 1000 / 1000 1000 / 1000 0 / 0 MEQ In D5W Inj 850 ML @ 75 mls /hr IV.CONT .[id number] COLE Rx#: [id number] Pitressin Inj 40 UNIT In NS Inj 100 / 100 100 / 100 98 ML @ 0.04 UNITS/MIN 6 mls/ hr IV.CONT CONT COLE Rx#: [id number] Buminate 5% Inj 250 ML @ 250 250 / 250 500 / 500 250 / 250 mls/hr IV.SIG Q6HR COLE Rx#: [id number] Diflucan 200 mg Premix Bag 100 100 / 100 100 / 100 ML @ 100 mls/hr IV.SIG Q24H COLE Rx#:[id number] Levophed-Dextrose 4 mg/250 ml 250 / 250 Drip 4 mg In 250 ml @ 2 MCG/MIN 7.5 mls/hr IV.SIG TITRATE PRN Rx#:[id number] Zosyn 2.25 GM Premix 50 ML @ 100 / 100 100 / 100 100 mls/hr IV.SIG Q6H COLE Rx#: [id number] fentaNYL 10 mcg/mL Premix Drip 250 / 250 250 / 250 2,500 mcg In 250 ml @ 50 MCG/HR 5 mls/hr IV.SIG TITRATE PRN Rx #:[id number] Anesthesia Amount 300 / 300 Other 296 / 296 Intake (Blood Product) Amt 959 / 959 Plasma Thawed 5 Day Cp2d Unit 376 / 376 [id number] Plasma Thawed 5 Day Cp2d Unit 292 / 292 [id number] Plasma Thawed 5 Day Cp2d Unit 291 / 291 [id number] Plasma Thawed 5 Day Cp2d Unit 0 / 0 [id number] Output: Stool 0 / 0 Estimated Blood Loss 25 / 25 Urine Amount (Catheter) 5 / 5 0 / 0 Indwelling Urethral Catheter 5 / 5 0 / 0 Gastric Drainage 675 / 675 50 / 50 Orogastric Tube 475 / 475 Right Nare Nasogastric Tube 200 / 200 50 / 50 Wound Drainage 500 / 500 # 1 Abdomen 500 / 500 Wound Vac Amount 850 / 850 Midline Abdomen 850 / 850 Other: Mode Setting Midline Abdomen Continuous Continuous - Constitutional chronically ill appearing Comments: Mechanically ventilated via ET tube - Routine HEENT Exam Head: Present: normocephalic - Routine Respiratory Exam Present: patient mechanically ventilated - Routine Cardiovascular Exam Present: S1, S2 - Routine Abdominal Exam Present: distended Comments: Patient is postop subtotal gastrectomy, NG/OG in place to low intermittent wall suction - Routine Extremities Exam Present: pulses intact. Absent: edema - Routine Skin Exam Present: dry, warm - Routine Neurological Exam Eyes open spontaneously - Urinary Catheter Management Indwelling Urethral Catheter Cath placed during this visit: yes Urethral indwelling: Yes Reason for continuing: Hourly intake/output Insertion date: 11/23/17 Insertion time: 05:00 <Karen Oliveira - Last Filed: 11/26/17 12:29> Vital signs: Vital Signs 11/25/17 22:00 11/26/17 00:00 11/26/17 02:00 Temperature 98.7 F Pulse Rate 76 82 80 Respiratory Rate 14 Pulse Oximetry 98 11/26/17 04:00 11/26/17 04:57 11/26/17 06:00 Temperature 98.4 F Pulse Rate 80 82 Respiratory Rate 14 14 Pulse Oximetry 98 98 11/26/17 08:00 11/26/17 08:39 11/26/17 10:00 Temperature 98.5 F Pulse Rate 82 82 Respiratory Rate 14 14 Pulse Oximetry 96 96 11/26/17 12:00 11/26/17 12:15 11/26/17 14:00 Temperature 97.8 F Pulse Rate 62 65 Respiratory Rate 14 14 Pulse Oximetry 98 98 11/26/17 16:00 Temperature 99.2 F Pulse Rate 75 Respiratory Rate 14 Pulse Oximetry 98 Intake & Output 11/26/17 11/26/17 11/27/17 06:59 18:59 06:59 Intake Total 2250 / 2250 650 / 650 Output Total 925 / 925 4000 / 4000 Balance 1325 / 1325 -3350 / -3350 Weight 98.8 kg Intake: IV 1950 / 1950 650 / 650 Sodium Bicarbonate 8.4% Inj 150 1000 / 1000 0 / 0 MEQ In D5W Inj 850 ML @ 75 mls /hr IV.CONT .[id number] COLE Rx#: [id number] Pitressin Inj 40 UNIT In NS Inj 100 / 100 98 ML @ 0.04 UNITS/MIN 6 mls/ hr IV.CONT CONT COLE Rx#: [id number] Buminate 5% Inj 250 ML @ 250 500 / 500 500 / 500 mls/hr IV.SIG Q6HR COLE Rx#: [id number] Diflucan 200 mg Premix Bag 100 100 / 100 ML @ 100 mls/hr IV.SIG Q24H COLE Rx#:[id number] Zosyn 2.25 GM Premix 50 ML @ 100 / 100 50 / 50 100 mls/hr IV.SIG Q6H COLE Rx#: [id number] fentaNYL 10 mcg/mL Premix Drip 250 / 250 2,500 mcg In 250 ml @ 50 MCG/HR 5 mls/hr IV.SIG TITRATE PRN Rx #:[id number] Anesthesia Amount 300 / 300 Output: Hemodialysis Amount 4000 / 4000 Estimated Blood Loss 25 / 25 Urine Amount (Catheter) 0 / 0 Indwelling Urethral Catheter 0 / 0 Gastric Drainage 50 / 50 Right Nare Nasogastric Tube 50 / 50 Wound Vac Amount 850 / 850 Midline Abdomen 850 / 850 Other: Mode Setting Midline Abdomen Continuous Continuous - Urinary Catheter Management Indwelling Urethral Catheter Cath placed during this visit: no <Sa Artieud E - Last Filed: 11/26/17 21:03> Results - Labs CBC & Chem 7: 11/26/17 05:15 11/26/17 05:15 Laboratory Results - last 24 hr 11/25/17 11/25/17 11/25/17 13:45 16:19 23:40 WBC RBC Hgb Hct MCV MCH MCHC RDW Plt Count MPV Prelim Diff (Auto) WBC Differential Seg Neuts % (Manual) Band Neuts % (Manual) Lymphocytes % (Manual) Monocytes % (Manual) Metamyelocytes % (Man) Abs Neuts (Manual) Nucleated RBCs/100 WBC Differential Comment Platelet Estimate Platelet Morphology Ovalocytes Acanthocytes (Spur) PT 14.0 H INR 1.4 Sodium Potassium Chloride Carbon Dioxide Anion Gap BUN Creatinine Estimated GFR POC Glucose 114 H 65 L Random Glucose Calcium Prot Corrected Calcium Total Bilirubin AST ALT Alkaline Phosphatase Total Protein Albumin 11/25/17 11/25/17 11/26/17 23:42 23:43 00:12 WBC RBC Hgb Hct MCV MCH MCHC RDW Plt Count MPV Prelim Diff (Auto) WBC Differential Seg Neuts % (Manual) Band Neuts % (Manual) Lymphocytes % (Manual) Monocytes % (Manual) Metamyelocytes % (Man) Abs Neuts (Manual) Nucleated RBCs/100 WBC Differential Comment Platelet Estimate Platelet Morphology Ovalocytes Acanthocytes (Spur) PT INR Sodium Potassium Chloride Carbon Dioxide Anion Gap BUN Creatinine Estimated GFR POC Glucose 40 L* 64 L 61 L Random Glucose Calcium Prot Corrected Calcium Total Bilirubin AST ALT Alkaline Phosphatase Total Protein Albumin 11/26/17 11/26/17 11/26/17 00:29 02:18 05:15 WBC 10.1 RBC 2.71 L Hgb 8.6 L Hct 25.0 L MCV 92.4 MCH 31.6 MCHC 34.2 RDW 15.2 Plt Count 38 L D MPV 9.8 Prelim Diff (Auto) Manual diff required WBC Differential Manual diff final Seg Neuts % (Manual) 53 Band Neuts % (Manual) 32 H Lymphocytes % (Manual) 6 L Monocytes % (Manual) 8 Metamyelocytes % (Man) 1 Abs Neuts (Manual) 8.7 H Nucleated RBCs/100 WBC 1 H Differential Comment . Platelet Estimate Low L Platelet Morphology Normal Ovalocytes 1+ H Acanthocytes (Spur) Occ H PT INR Sodium Potassium Chloride Carbon Dioxide Anion Gap BUN Creatinine Estimated GFR POC Glucose 96 146 H Random Glucose Calcium Prot Corrected Calcium Total Bilirubin AST ALT Alkaline Phosphatase Total Protein Albumin 11/26/17 11/26/17 11/26/17 05:15 05:15 06:01 WBC RBC Hgb Hct MCV MCH MCHC RDW Plt Count MPV Prelim Diff (Auto) WBC Differential Seg Neuts % (Manual) Band Neuts % (Manual) Lymphocytes % (Manual) Monocytes % (Manual) Metamyelocytes % (Man) Abs Neuts (Manual) Nucleated RBCs/100 WBC Differential Comment Platelet Estimate Platelet Morphology Ovalocytes Acanthocytes (Spur) PT 14.5 H INR 1.4 Sodium 142 Potassium 4.3 Chloride 102 Carbon Dioxide 27.5 Anion Gap 13 BUN 52 H Creatinine 6.87 H Estimated GFR 11 L POC Glucose 129 H Random Glucose 138 H Calcium 5.8 L* Prot Corrected Calcium 6.6 L* Total Bilirubin 4.6 H AST 1157 H ALT 1323 H Alkaline Phosphatase 44 L Total Protein 5.2 L D Albumin 2.9 L 11/26/17 11:53 WBC RBC Hgb Hct MCV MCH MCHC RDW Plt Count MPV Prelim Diff (Auto) WBC Differential Seg Neuts % (Manual) Band Neuts % (Manual) Lymphocytes % (Manual) Monocytes % (Manual) Metamyelocytes % (Man) Abs Neuts (Manual) Nucleated RBCs/100 WBC Differential Comment Platelet Estimate Platelet Morphology Ovalocytes Acanthocytes (Spur) PT INR Sodium Potassium Chloride Carbon Dioxide Anion Gap BUN Creatinine Estimated GFR POC Glucose 134 H Random Glucose Calcium Prot Corrected Calcium Total Bilirubin AST ALT Alkaline Phosphatase Total Protein Albumin Microbiology 11/23/17 11:06 Blood - Line Aerobic Blood Culture - Preliminary No growth in 3 days 11/23/17 11:06 Blood - Line Anaerobic Blood Culture - Preliminary No growth in 3 days 11/23/17 04:50 Blood - Line Aerobic Blood Culture - Preliminary No growth in 3 days 11/23/17 04:50 Blood - Line Anaerobic Blood Culture - Preliminary No growth in 3 days 11/24/17 09:54 Sputum - Endotracheal Gram Stain - Final 11/24/17 09:54 Sputum - Endotracheal Sputum Culture - Final Klebsiella pneumoniae - Imaging Impressions Chest X-Ray 11/25/17 00:00 CONCLUSION: Right central line in superior vena cava without pneumothorax. Relatively stable basilar airspace disease and pleural effusions. Chest X-Ray 11/26/17 04:00 CONCLUSION: NG tube tip at the EG junction. This should be advanced. Bibasilar areas of atelectasis or consolidation being worse on the left. <Karen Oliveira - Last Filed: 11/26/17 12:29> - Labs CBC & Chem 7: 11/26/17 05:15 11/26/17 05:15 Laboratory Results - last 24 hr 11/23/17 11/25/17 11/25/17 11:06 23:40 23:42 WBC RBC Hgb Hct MCV MCH MCHC RDW Plt Count MPV Prelim Diff (Auto) WBC Differential Seg Neuts % (Manual) Band Neuts % (Manual) Lymphocytes % (Manual) Monocytes % (Manual) Metamyelocytes % (Man) Abs Neuts (Manual) Nucleated RBCs/100 WBC Differential Comment Platelet Estimate Platelet Morphology Ovalocytes Acanthocytes (Spur) PT INR Puncture Site Patient Temperature O2 Saturation ABG pH ABG pCO2 ABG pO2 ABG HCO3 ABG O2 Content ABG Base Excess ABG Methemoglobin Mars Test Hemoglobin Carboxyhemoglobin O2 Delivery Device Vent Setting Inspired O2 Critical Value Sodium Potassium Chloride Carbon Dioxide Anion Gap BUN Creatinine Estimated GFR POC Glucose 65 L 40 L* Random Glucose Calcium Prot Corrected Calcium Total Bilirubin AST ALT Alkaline Phosphatase Total Protein Albumin IgA 81 Tiss Transglutamin IgG ND 11/25/17 11/26/17 11/26/17 23:43 00:12 00:29 WBC RBC Hgb Hct MCV MCH MCHC RDW Plt Count MPV Prelim Diff (Auto) WBC Differential Seg Neuts % (Manual) Band Neuts % (Manual) Lymphocytes % (Manual) Monocytes % (Manual) Metamyelocytes % (Man) Abs Neuts (Manual) Nucleated RBCs/100 WBC Differential Comment Platelet Estimate Platelet Morphology Ovalocytes Acanthocytes (Spur) PT INR Puncture Site Patient Temperature O2 Saturation ABG pH ABG pCO2 ABG pO2 ABG HCO3 ABG O2 Content ABG Base Excess ABG Methemoglobin Mars Test Hemoglobin Carboxyhemoglobin O2 Delivery Device Vent Setting Inspired O2 Critical Value Sodium Potassium Chloride Carbon Dioxide Anion Gap BUN Creatinine Estimated GFR POC Glucose 64 L 61 L 96 Random Glucose Calcium Prot Corrected Calcium Total Bilirubin AST ALT Alkaline Phosphatase Total Protein Albumin IgA Tiss Transglutamin IgG 11/26/17 11/26/17 11/26/17 02:18 05:15 05:15 WBC 10.1 RBC 2.71 L Hgb 8.6 L Hct 25.0 L MCV 92.4 MCH 31.6 MCHC 34.2 RDW 15.2 Plt Count 38 L D MPV 9.8 Prelim Diff (Auto) Manual diff required WBC Differential Manual diff final Seg Neuts % (Manual) 53 Band Neuts % (Manual) 32 H Lymphocytes % (Manual) 6 L Monocytes % (Manual) 8 Metamyelocytes % (Man) 1 Abs Neuts (Manual) 8.7 H Nucleated RBCs/100 WBC 1 H Differential Comment . Platelet Estimate Low L Platelet Morphology Normal Ovalocytes 1+ H Acanthocytes (Spur) Occ H PT INR Puncture Site Patient Temperature O2 Saturation ABG pH ABG pCO2 ABG pO2 ABG HCO3 ABG O2 Content ABG Base Excess ABG Methemoglobin Mars Test Hemoglobin Carboxyhemoglobin O2 Delivery Device Vent Setting Inspired O2 Critical Value Sodium 142 Potassium 4.3 Chloride 102 Carbon Dioxide 27.5 Anion Gap 13 BUN 52 H Creatinine 6.87 H Estimated GFR 11 L POC Glucose 146 H Random Glucose 138 H Calcium 5.8 L* Prot Corrected Calcium 6.6 L* Total Bilirubin 4.6 H AST 1157 H ALT 1323 H Alkaline Phosphatase 44 L Total Protein 5.2 L D Albumin 2.9 L IgA Tiss Transglutamin IgG 11/26/17 11/26/17 11/26/17 05:15 06:01 11:53 WBC RBC Hgb Hct MCV MCH MCHC RDW Plt Count MPV Prelim Diff (Auto) WBC Differential Seg Neuts % (Manual) Band Neuts % (Manual) Lymphocytes % (Manual) Monocytes % (Manual) Metamyelocytes % (Man) Abs Neuts (Manual) Nucleated RBCs/100 WBC Differential Comment Platelet Estimate Platelet Morphology Ovalocytes Acanthocytes (Spur) PT 14.5 H INR 1.4 Puncture Site Patient Temperature O2 Saturation ABG pH ABG pCO2 ABG pO2 ABG HCO3 ABG O2 Content ABG Base Excess ABG Methemoglobin Mars Test Hemoglobin Carboxyhemoglobin O2 Delivery Device Vent Setting Inspired O2 Critical Value Sodium Potassium Chloride Carbon Dioxide Anion Gap BUN Creatinine Estimated GFR POC Glucose 129 H 134 H Random Glucose Calcium Prot Corrected Calcium Total Bilirubin AST ALT Alkaline Phosphatase Total Protein Albumin IgA Tiss Transglutamin IgG 11/26/17 17:08 WBC RBC Hgb Hct MCV MCH MCHC RDW Plt Count MPV Prelim Diff (Auto) WBC Differential Seg Neuts % (Manual) Band Neuts % (Manual) Lymphocytes % (Manual) Monocytes % (Manual) Metamyelocytes % (Man) Abs Neuts (Manual) Nucleated RBCs/100 WBC Differential Comment Platelet Estimate Platelet Morphology Ovalocytes Acanthocytes (Spur) PT INR Puncture Site Art line Patient Temperature 98.6 O2 Saturation 97 ABG pH 7.40 ABG pCO2 42 ABG pO2 152 H ABG HCO3 26 ABG O2 Content 12.4 ABG Base Excess 1.4 ABG Methemoglobin 1.6 Mars Test Present Hemoglobin 8.9 L Carboxyhemoglobin 0.6 O2 Delivery Device Ventilator Vent Setting Prvc/15/550/1.2/+8 Inspired O2 45 Critical Value No Sodium Potassium Chloride Carbon Dioxide Anion Gap BUN Creatinine Estimated GFR POC Glucose Random Glucose Calcium Prot Corrected Calcium Total Bilirubin AST ALT Alkaline Phosphatase Total Protein Albumin IgA Tiss Transglutamin IgG Microbiology 11/23/17 11:06 Blood - Line Aerobic Blood Culture - Preliminary No growth in 3 days 11/23/17 11:06 Blood - Line Anaerobic Blood Culture - Preliminary No growth in 3 days 11/23/17 04:50 Blood - Line Aerobic Blood Culture - Preliminary No growth in 3 days 11/23/17 04:50 Blood - Line Anaerobic Blood Culture - Preliminary No growth in 3 days 11/24/17 09:54 Sputum - Endotracheal Gram Stain - Final 11/24/17 09:54 Sputum - Endotracheal Sputum Culture - Final Klebsiella pneumoniae - Imaging Impressions Chest X-Ray 11/26/17 04:00 CONCLUSION: NG tube tip at the EG junction. This should be advanced. Bibasilar areas of atelectasis or consolidation being worse on the left. <Cleve Alva - Last Filed: 11/26/17 21:03> Assessment and Plan (1) Bowel obstruction Status: Acute Code(s): K56.609 - Unspecified intestinal obstruction, unspecified as to partial versus complete obstruction - Plan Mr. Marshall is a 47-year-old male patient who presented to the emergency room this morning with complaint of severe generalized abdominal pain which he describes as cramping. associated with nausea and emesis. Patient states he has no medical history, no surgical history, and no known drug allergies. Our service has been consulted to evaluate possible pancreatic/duodenal mass. Patient states onset of symptoms started last night after he ate a large meal at the [employer]. Patient denies ever having pain like this before and states he had at least 10-15 episodes of vomiting. Patient denies fever, diarrhea, constipation. States pain is constant and there are no alleviating or aggravating factors.He reports having a soft brown BM of "normal " quantity 2 days ago and none since noted. States he normally has 1-2 soft brown bowel movements daily. Patient unsure if he has had been able to pass gas over the last 24 hours. Reports he was feeling well without any symptoms of abdominal pain nausea or vomiting prior to today. Patient has no history of abdominal obstruction or abdominal surgical procedures. Patient denies any blood in emesis or noted bleeding in stool. Denies ever having had EGD or colonoscopy in the past. Denies any use of NSAIDs or blood thinners. Denies any known family history for any gastrointestinal disorders. Denies use of tobacco or alcohol. Upon arrival to emergency room patient had NG placed with documented drainage of over a liter of yellow fluid. Patient asked for NG to be removed due to discomfort but is now willing to have same replaced. Pancreatic/duodenal mass/obstruction CT abdomen and pelvis done on admission revealed the following findings : Examination of the lung bases demonstrates no abnormality. No pleural fluid is identified. No pulmonary nodules are present. The liver and spleen are normal in size and no focal defects are identified. There is severe gastric distention to the level of the third portion of the duodenum where there is decompressed distal duodenum and small bowel. There is a possible mass in the pancreas as etiology. Benign or malignant stricture would be considered and endoscopy is recommended to further evaluate this. The adrenal glands and kidneys appear normal bilaterally. No hydronephrosis or mass lesions are identified. Examination of the pelvis demonstrates no evidence of free fluid or pelvic mass. No abnormally enlarged inguinal or retroperitoneal lymph nodes are present. The bladder is unremarkable. High-grade obstruction at the level of the third portion of the duodenum with massive gastric distention. There is equivocal mass in the pancreatic head. Endoscopy is recommended to evaluate the stricture. WBC count 12.1 hemoglobin 15.7 hematocrit 48.1 total bilirubin 2.8 AST 22 ALT 34 alk phos 63 lipase 3687 CA 199 antigen 5.0. 11/22/2017-NG tube placed, immediate return of estimated 700-800 cc of bile colored drainage. Patient reporting much less abdominal discomfort. 11/23/2017-approximately 0400 patient underwent cardiac arrest, was intubated via ET tube and mechanically ventilated. Patient is now postoperative exploratory laparotomy with large mid abdominal surgical wound attached to suction. Per surgery, there was a large amount of food found in stomach. Oral gastric as well as nasogastric in place attached to low wall suction draining brown fluid. Dr. Gudino at bedside, plan is for patient to return to surgery on Sunday for possible subtotal gastrectomy; at which time he will attempt to visualize stomach and duodenum intraoperatively. 11/24/2017 status post cardiac arrest PEA on 11/23/2017 patient continues to be critically ill in the intensive care setting, midline abdominal wound incision open with sponge and dressing no obvious bowel sounds NG tube draining dark bilious fluid, patient's continues on ventilator support and blood pressure meds PT last drawn 1.5 will recheck in the a.m. no obvious bleeding hemoglobin 12.6 and WBC count 7.5. According to the record plan for surgery again Sunday and intraoperative enteroscopy to be done. Currently no family present, no GI procedures for now but patient may need endoscopy when he is better. gastric perforation, sepsis, large meal at [employer]. Continues with acute abdomen 11/25/2017 patient continues with critical event from gastric perforation. Plan this p.m. is to be reevaluated back in surgery. Current labs show shock liver and increasing bilirubin 4.9, AST 918 ALT 876 PT/INR 2 with increased coagulopathy No anemia current hemoglobin 10 Leukocytosis WBC count 13.3, Septic shock NG OG tubes both draining dark bilious fluid, ileus absent bowel sounds GI will evaluate tomorrow for any acute changes but will probably sign off at this point pending patient's improvement. Currently patient is critically ill and is not and the need of any GI procedures. 11/26/2017-patient is mechanically ventilated via ET tube post reexploration of abdominal cavity with subtotal gastrectomy and placement of VAC dressing. Transaminitis most probably due to shock liver. AST 1157 ALT 1323 alk phos 44 INR 1.4. Hemoglobin 8.6 hematocrit 25.0 BUN 52 creatinine 6.87 with GFR of 11. Patient undergoing hemodialysis at bedside. NG/OG in place-no bowel sounds audible at this time. GI will sign off at this time as patient is critically unstable and there is no apparent immediate need for GI intervention. Plan -N.p.o. -NG/OG -Monitor labs-LFTs, INR-transaminitis most likely due to shock liver -Supportive care Patient was seen by myself and Dr. Alva and this note is written on his behalf - Attending Attestation Dr. Alva <Karen Oliveira - Last Filed: 11/26/17 12:29> (1) Bowel obstruction Status: Acute Code(s): K56.609 - Unspecified intestinal obstruction, unspecified as to partial versus complete obstruction - Plan Patient seen and examined Agree with above history and physical Continue with current supportive care Monitor labs Not much to add from a GI perspective at this point we will sign off <Cleve Alva - Last Filed: 11/26/17 21:03>
--- NOTE | 2017-11-26 13:06 | P.PNGS ---
Subjective Interval history: Stable overnight, weaning pressors and vent. Waking up some per RN. Physical Exam Vital signs: Vital Signs 11/25/17 14:00 11/25/17 16:00 11/25/17 17:01 Temperature 99.1 F Pulse Rate 80 83 Respiratory Rate 14 14 Pulse Oximetry 98 98 11/25/17 19:38 11/25/17 20:00 11/25/17 22:00 Temperature 98.1 F Pulse Rate 76 76 Respiratory Rate 14 14 Pulse Oximetry 94 L 94 L 11/26/17 00:00 11/26/17 02:00 11/26/17 04:00 Temperature 98.7 F 98.4 F Pulse Rate 82 80 80 Respiratory Rate 14 14 Pulse Oximetry 98 98 11/26/17 04:57 11/26/17 06:00 11/26/17 08:00 Temperature 98.5 F Pulse Rate 82 82 Respiratory Rate 14 14 Pulse Oximetry 98 96 11/26/17 08:39 11/26/17 10:00 11/26/17 12:15 Temperature Pulse Rate 82 Respiratory Rate 14 14 Pulse Oximetry 96 98 Intake & Output 11/25/17 11/26/17 11/26/17 18:59 06:59 18:59 Intake Total 3305 / 3305 2250 / 2250 350 / 350 Output Total 1180 / 1180 925 / 925 Balance 2125 / 2125 1325 / 1325 350 / 350 Weight 98.8 kg Intake: IV 2049 / 2049 1950 / 1950 350 / 350 Sodium Bicarbonate 8.4% Inj 150 1000 / 1000 1000 / 1000 0 / 0 MEQ In D5W Inj 850 ML @ 75 mls /hr IV.CONT .[id number] COLE Rx#: [id number] Pitressin Inj 40 UNIT In NS Inj 100 / 100 100 / 100 98 ML @ 0.04 UNITS/MIN 6 mls/ hr IV.CONT CONT COLE Rx#: [id number] Buminate 5% Inj 250 ML @ 250 250 / 250 500 / 500 250 / 250 mls/hr IV.SIG Q6HR COLE Rx#: [id number] Diflucan 200 mg Premix Bag 100 100 / 100 100 / 100 ML @ 100 mls/hr IV.SIG Q24H COLE Rx#:[id number] Levophed-Dextrose 4 mg/250 ml 250 / 250 Drip 4 mg In 250 ml @ 2 MCG/MIN 7.5 mls/hr IV.SIG TITRATE PRN Rx#:[id number] Zosyn 2.25 GM Premix 50 ML @ 100 / 100 100 / 100 100 mls/hr IV.SIG Q6H COLE Rx#: [id number] fentaNYL 10 mcg/mL Premix Drip 250 / 250 250 / 250 2,500 mcg In 250 ml @ 50 MCG/HR 5 mls/hr IV.SIG TITRATE PRN Rx #:[id number] Anesthesia Amount 300 / 300 Other 296 / 296 Intake (Blood Product) Amt 959 / 959 Plasma Thawed 5 Day Cp2d Unit 376 / 376 [id number] Plasma Thawed 5 Day Cp2d Unit 292 / 292 [id number] Plasma Thawed 5 Day Cp2d Unit 291 / 291 [id number] Plasma Thawed 5 Day Cp2d Unit 0 / 0 [id number] Output: Stool 0 / 0 Estimated Blood Loss 25 / 25 Urine Amount (Catheter) 5 / 5 0 / 0 Indwelling Urethral Catheter 5 / 5 0 / 0 Gastric Drainage 675 / 675 50 / 50 Orogastric Tube 475 / 475 Right Nare Nasogastric Tube 200 / 200 50 / 50 Wound Drainage 500 / 500 # 1 Abdomen 500 / 500 Wound Vac Amount 850 / 850 Midline Abdomen 850 / 850 Other: Mode Setting Midline Abdomen Continuous Continuous - Routine Abdominal Exam Present: soft, surgical scars, wound - Urinary Catheter Management Indwelling Urethral Catheter Cath placed during this visit: yes Urethral indwelling: Yes Reason for continuing: Hourly intake/output Insertion date: 11/23/17 Insertion time: 05:00 Results - Labs 11/26/17 05:15 11/26/17 05:15 Laboratory Results - last 24 hr 11/25/17 11/25/17 11/25/17 13:45 16:19 23:40 WBC RBC Hgb Hct MCV MCH MCHC RDW Plt Count MPV Prelim Diff (Auto) WBC Differential Seg Neuts % (Manual) Band Neuts % (Manual) Lymphocytes % (Manual) Monocytes % (Manual) Metamyelocytes % (Man) Abs Neuts (Manual) Nucleated RBCs/100 WBC Differential Comment Platelet Estimate Platelet Morphology Ovalocytes Acanthocytes (Spur) PT 14.0 H INR 1.4 Sodium Potassium Chloride Carbon Dioxide Anion Gap BUN Creatinine Estimated GFR POC Glucose 114 H 65 L Random Glucose Calcium Prot Corrected Calcium Total Bilirubin AST ALT Alkaline Phosphatase Total Protein Albumin 11/25/17 11/25/17 11/26/17 23:42 23:43 00:12 WBC RBC Hgb Hct MCV MCH MCHC RDW Plt Count MPV Prelim Diff (Auto) WBC Differential Seg Neuts % (Manual) Band Neuts % (Manual) Lymphocytes % (Manual) Monocytes % (Manual) Metamyelocytes % (Man) Abs Neuts (Manual) Nucleated RBCs/100 WBC Differential Comment Platelet Estimate Platelet Morphology Ovalocytes Acanthocytes (Spur) PT INR Sodium Potassium Chloride Carbon Dioxide Anion Gap BUN Creatinine Estimated GFR POC Glucose 40 L* 64 L 61 L Random Glucose Calcium Prot Corrected Calcium Total Bilirubin AST ALT Alkaline Phosphatase Total Protein Albumin 11/26/17 11/26/17 11/26/17 00:29 02:18 05:15 WBC 10.1 RBC 2.71 L Hgb 8.6 L Hct 25.0 L MCV 92.4 MCH 31.6 MCHC 34.2 RDW 15.2 Plt Count 38 L D MPV 9.8 Prelim Diff (Auto) Manual diff required WBC Differential Manual diff final Seg Neuts % (Manual) 53 Band Neuts % (Manual) 32 H Lymphocytes % (Manual) 6 L Monocytes % (Manual) 8 Metamyelocytes % (Man) 1 Abs Neuts (Manual) 8.7 H Nucleated RBCs/100 WBC 1 H Differential Comment . Platelet Estimate Low L Platelet Morphology Normal Ovalocytes 1+ H Acanthocytes (Spur) Occ H PT INR Sodium Potassium Chloride Carbon Dioxide Anion Gap BUN Creatinine Estimated GFR POC Glucose 96 146 H Random Glucose Calcium Prot Corrected Calcium Total Bilirubin AST ALT Alkaline Phosphatase Total Protein Albumin 11/26/17 11/26/17 11/26/17 05:15 05:15 06:01 WBC RBC Hgb Hct MCV MCH MCHC RDW Plt Count MPV Prelim Diff (Auto) WBC Differential Seg Neuts % (Manual) Band Neuts % (Manual) Lymphocytes % (Manual) Monocytes % (Manual) Metamyelocytes % (Man) Abs Neuts (Manual) Nucleated RBCs/100 WBC Differential Comment Platelet Estimate Platelet Morphology Ovalocytes Acanthocytes (Spur) PT 14.5 H INR 1.4 Sodium 142 Potassium 4.3 Chloride 102 Carbon Dioxide 27.5 Anion Gap 13 BUN 52 H Creatinine 6.87 H Estimated GFR 11 L POC Glucose 129 H Random Glucose 138 H Calcium 5.8 L* Prot Corrected Calcium 6.6 L* Total Bilirubin 4.6 H AST 1157 H ALT 1323 H Alkaline Phosphatase 44 L Total Protein 5.2 L D Albumin 2.9 L 11/26/17 11:53 WBC RBC Hgb Hct MCV MCH MCHC RDW Plt Count MPV Prelim Diff (Auto) WBC Differential Seg Neuts % (Manual) Band Neuts % (Manual) Lymphocytes % (Manual) Monocytes % (Manual) Metamyelocytes % (Man) Abs Neuts (Manual) Nucleated RBCs/100 WBC Differential Comment Platelet Estimate Platelet Morphology Ovalocytes Acanthocytes (Spur) PT INR Sodium Potassium Chloride Carbon Dioxide Anion Gap BUN Creatinine Estimated GFR POC Glucose 134 H Random Glucose Calcium Prot Corrected Calcium Total Bilirubin AST ALT Alkaline Phosphatase Total Protein Albumin - Imaging Imaging: ITS Impressions Cholangiopancreatography MRI 11/22/17 00:00 CONCLUSION: 1. Markedly dilated stomach filled with fluid. No evidence of biliary tree dilatation. Abdomen/Pelvis CT 11/22/17 02:53 CONCLUSION: 1. High-grade obstruction at the level of the third portion of the duodenum with massive gastric distention. There is equivocal mass in the pancreatic head. Endoscopy is recommended to evaluate the stricture. Chest X-Ray 11/26/17 04:00 CONCLUSION: NG tube tip at the EG junction. This should be advanced. Bibasilar areas of atelectasis or consolidation being worse on the left. Assessment and Plan - Assessment (1) Gastric perforation without ulcer Code(s): K31.89 - Other diseases of stomach and duodenum Status: Acute (2) Septic shock Code(s): A41.9 - Sepsis, unspecified organism; R65.21 - Severe sepsis with septic shock Status: Acute (3) Pneumoperitoneum Code(s): K66.8 - Other specified disorders of peritoneum Status: Resolved (4) JACLYN (acute kidney injury) Code(s): N17.9 - Acute kidney failure, unspecified Status: Acute (5) Abdominal compartment syndrome Code(s): T79.A3XA - Traumatic compartment syndrome of abdomen, initial encounter Status: Resolved - Plan POD1 Subtotal Gastrectomy/ POD#3 Abdominal decompression/repair of gastric perforation. Dialysis started today for ATN Plan on transfer to [facility]/ as he will need a reconstruction procedure Esophagus stapled off, NG in place Will notify transfer center.
--- NOTE | 2017-11-26 14:21 | P.DS ---
Date of admission: 11/22/17 04:33 Primary care physician: No Primary Care Physician Attending physician on discharge: Osmin Jensen Brief History from admission: 47 Y/O male with no medical history who presented to the emergency room with complaint of generalized abdominal pain, nausea and vomiting. Patient reports he was in his normal state of health until yesterday when he started to experience severe, cramping abdominal pain. He thought this was related to overeating at [employer]. Workup in the emergency room revealed elevated lipase, high grade obstruction at the duodenum and severe gastric distention. There is also reports of an equivocal mass in the pancreatic head. NGT was placed. On my evaluation, the patient continues to have high output from NGT draining yellow fluid. He remains uncomfortable with a lot of pain. He reports he had a normal bowel movement 2 days ago. Patient update on day of discharge: 47-year-old -German male with reportedly no past medical or past surgical history who was admitted to hospitalist service 11/22/17 after presenting with abdominal pain, nausea, vomiting. He had CT abd/pelvis with massive gastric distention. NG tube had been placed. I was called to patient's bedside for CODE BLUE PEA arrest. CPR was ongoing and patient had massive abdominal distension and gastric regurgitant in the airway. He was emergently intubated and large amount of gastric secretions suctioned from oropharynx. After 21 minutes of CPR, ROSC was obtained and he was profoundly hypotensive. Continued aggressive fluid resuscitation and initiated dopamine. He was transferred to [facility] where CVL and R radial art line were placed and he was given 7 L of crystalloid and albumin. CXR demonstrated pneumoperitoneum and Dr. Martin Gudino was called emergently and he immediately contacted OR for emergent ex lap. He had intraabdominal hypertension with IAP of 40 mmHg, though fortunately was able to be ventilated adequately after rocuronium 50 mg IV and was transferred to OR. Dr. Martin Gudino took to the operating room early in the morning on 11/23 and discovered tension pneumoperitoneum, massive gastric distension, ischemia of the proximal 2/3 of the stomach and large gastric perforation with massive intraperitoneal contamination with food particles. Dr. Isaacs placed 2 NGT and decompressed 2 L of succus. Patient had initial improvement in vital signs in the immediate postoperative period, however he subsequently became hypotensive requiring upward titration of levophed and addition of vasopressin and stress dose hydrocortisone. He remains on levophed 10 mcg/min, neosynephrine 80 mcg/ min, vasopressin 0.04 units/min with overall vasopressor requirement weaning overnight. He is oliguric and creatinine is continuing to climb. He was given 2 L of crystalloid and albumin overnight. He does have significant fluid losses with combination of abdominal dressing and NGT output, so I will give an additional L of crystalloid now to monitor hourly response as he certainly does not appear volume overloaded. Nonetheless Flotrac numbers are suggesting adequate volume status and we may be seeing the consequence of ischemic ATN. May ultimately require HD, however not at this time. Abdomen remains open and plan is to re-explore 11/25. 11/25: Patient has acceptable hemodynamics by Flotrac but remains septic with requirements for phenylephrine 200 mics per minute, Levophed 8 mics per minute and vasopressin 0.04 units/min for blood pressure support. This has improved overnight and the Bhavesh-Synephrine support has been weaned off completely. Acid base balance is acceptable. ATN has developed which will undoubtedly require hemodialysis. Potassium level is normal. He is at increased risk for an anesthetic now but there is an urgent need to check for residual gastric necrosis. 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 Since the source control surgery, the maintenance of normal acid-base balance has been less difficult. Patient remains anuric with a rising creatinine above 6.0. He is clearly ahead on volume and will benefit from dialysis. A 2 lumen hemodialysis catheter was placed on 11/25 and has been packed with dilute heparin solution. The right internal jugular central line is been in place for 4 days and accessed multiple times. The femoral art line has been in for 4 days. Shock liver was apparent after the cardiac arrest reflecting a transaminitis, elevated bilirubin, and prolonged INR. The INR has remained normal following the transfusion of 4 units of fresh frozen plasma prior to surgery yesterday. A 10% dextrose infusion continues because of ongoing problems with hypoglycemia. Thrombocytopenia at 37,000 persists. He has remained on antibiotic coverage with Pipracil/tazobactam and fungal coverage with fluconazole, all adjusted for renal failure. Present vasopressor requirements include levophed at 7 mics per minute and vasopressin at 0.04 units/min. The chest x-ray is consistent with minor aspiration at the time of his preoperative cardiac arrest on the floor and cultures have subsequently grown Klebsiella, pansensitive. The operative note will clarify the extent of the surgery but in essence the distal esophagus is stapled off and marked with 2 Prolene sutures. The antrum of the stomach is oversewn. Most of the stomach has been removed. The abdomen is open with a VAC dressing applied. DS: Diagnosis - Discharge Diagnosis (1) Septic shock Status: Acute (2) Acute respiratory failure Status: Acute (3) Pneumoperitoneum Status: Resolved (4) Cardiac arrest Status: Resolved (5) JACLYN (acute kidney injury) Status: Acute (6) Transaminitis Status: Acute (7) Abdominal compartment syndrome Status: Resolved (8) Ischemic hepatitis Status: Acute (9) Hypernatremia Status: Acute (10) Hyperchloremic metabolic acidosis Status: Acute (11) Lactic acidemia Status: Acute (12) Leukopenia Status: Resolved DS: Summary Hospital Course: 47-year-old -German male with reportedly no past medical or past surgical history who was admitted to hospitalist service 11/22/17 after presenting with abdominal pain, nausea, vomiting. He had CT abd/pelvis with massive gastric distention. NG tube had been placed. I was called to patient's bedside for CODE BLUE PEA arrest. CPR was ongoing and patient had massive abdominal distension and gastric regurgitant in the airway. He was emergently intubated and large amount of gastric secretions suctioned from oropharynx. After 21 minutes of CPR, ROSC was obtained and he was profoundly hypotensive. Continued aggressive fluid resuscitation and initiated dopamine. He was transferred to [facility] where CVL and R radial art line were placed and he was given 7 L of crystalloid and albumin. CXR demonstrated pneumoperitoneum and Dr. Martin Gudino was called emergently and he immediately contacted OR for emergent ex lap. He had intraabdominal hypertension with IAP of 40 mmHg, though fortunately was able to be ventilated adequately after rocuronium 50 mg IV and was transferred to OR. Dr. Gudino took to the operating room early in the morning on 11/23 and discovered tension pneumoperitoneum, massive gastric distension, ischemia of the proximal 2/3 of the stomach and large gastric perforation with massive intraperitoneal contamination with food particles. Dr. Isaacs placed 2 NGT and decompressed 2 L of succus. Patient had initial improvement in vital signs in the immediate postoperative period, however he subsequently became hypotensive requiring upward titration of levophed and addition of vasopressin and stress dose hydrocortisone. He remains on levophed 10 mcg/min, neosynephrine 80 mcg/ min, vasopressin 0.04 units/min with overall vasopressor requirement weaning overnight. He is oliguric and creatinine is continuing to climb. He was given 2 L of crystalloid and albumin overnight. He does have significant fluid losses with combination of abdominal dressing and NGT output, so I will give an additional L of crystalloid now to monitor hourly response as he certainly does not appear volume overloaded. Nonetheless Flotrac numbers are suggesting adequate volume status and we may be seeing the consequence of ischemic ATN. May ultimately require HD, however not at this time. Abdomen remains open and plan is to re-explore 11/25. 11/25: Patient has acceptable hemodynamics by Flotrac but remains septic with requirements for levo fed 7 mics per minute and vasopressin 0.04 units/min for blood pressure support. This has improved overnight and the Bhavesh-Synephrine support has been weaned off completely. Acid base balance is acceptable. ATN has developed which will undoubtedly require hemodialysis. Potassium level is normal. He is at increased risk for an anesthetic obviously but there is an urgent need to check for residual gastric necrosis. 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 Patient remains anuric with a rising creatinine above 6.0. See discharge summary note first page - Time Spent with Patient Total time spent providing and/or coordinating discharge services: Greater than 30 minutes - Quality: VTE Deep Vein Thrombosis/Pulmonary Embolism Present on Admission: No Exam Vital signs: Vital Signs 11/25/17 16:00 11/25/17 17:01 11/25/17 19:38 Temperature 99.1 F Pulse Rate 83 Respiratory Rate 14 14 14 Pulse Oximetry 98 98 94 L 11/25/17 20:00 11/25/17 22:00 11/26/17 00:00 Temperature 98.1 F 98.7 F Pulse Rate 76 76 82 Respiratory Rate 14 14 Pulse Oximetry 94 L 98 11/26/17 02:00 11/26/17 04:00 11/26/17 04:57 Temperature 98.4 F Pulse Rate 80 80 Respiratory Rate 14 14 Pulse Oximetry 98 98 11/26/17 06:00 11/26/17 08:00 11/26/17 08:39 Temperature 98.5 F Pulse Rate 82 82 Respiratory Rate 14 14 Pulse Oximetry 96 96 11/26/17 10:00 11/26/17 12:00 11/26/17 12:15 Temperature 97.8 F Pulse Rate 82 62 Respiratory Rate 14 14 Pulse Oximetry 98 98 Intake & Output 11/25/17 11/26/17 11/26/17 18:59 06:59 18:59 Intake Total 3305 / 3305 2250 / 2250 650 / 650 Output Total 1180 / 1180 925 / 925 Balance 2125 / 2125 1325 / 1325 650 / 650 Weight 98.8 kg Intake: IV 2049 / 2049 1950 / 1950 650 / 650 Sodium Bicarbonate 8.4% Inj 150 1000 / 1000 1000 / 1000 0 / 0 MEQ In D5W Inj 850 ML @ 75 mls /hr IV.CONT .[id number] COLE Rx#: [id number] Pitressin Inj 40 UNIT In NS Inj 100 / 100 100 / 100 98 ML @ 0.04 UNITS/MIN 6 mls/ hr IV.CONT CONT COLE Rx#: [id number] Buminate 5% Inj 250 ML @ 250 250 / 250 500 / 500 500 / 500 mls/hr IV.SIG Q6HR COLE Rx#: [id number] Diflucan 200 mg Premix Bag 100 100 / 100 100 / 100 ML @ 100 mls/hr IV.SIG Q24H COLE Rx#:[id number] Levophed-Dextrose 4 mg/250 ml 250 / 250 Drip 4 mg In 250 ml @ 2 MCG/MIN 7.5 mls/hr IV.SIG TITRATE PRN Rx#:[id number] Zosyn 2.25 GM Premix 50 ML @ 100 / 100 100 / 100 50 / 50 100 mls/hr IV.SIG Q6H [facility] Rx#: [id number] fentaNYL 10 mcg/mL Premix Drip 250 / 250 250 / 250 2,500 mcg In 250 ml @ 50 MCG/HR 5 mls/hr IV.SIG TITRATE PRN Rx #:[id number] Anesthesia Amount 300 / 300 Other 296 / 296 Intake (Blood Product) Amt 959 / 959 Plasma Thawed 5 Day Cp2d Unit 376 / 376 [id number] Plasma Thawed 5 Day Cp2d Unit 292 / 292 [id number] Plasma Thawed 5 Day Cp2d Unit 291 / 291 [id number] Plasma Thawed 5 Day Cp2d Unit 0 / 0 [id number] Output: Stool 0 / 0 Estimated Blood Loss 25 / 25 Urine Amount (Catheter) 5 / 5 0 / 0 Indwelling Urethral Catheter 5 / 5 0 / 0 Gastric Drainage 675 / 675 50 / 50 Orogastric Tube 475 / 475 Right Nare Nasogastric Tube 200 / 200 50 / 50 Wound Drainage 500 / 500 # 1 Abdomen 500 / 500 Wound Vac Amount 850 / 850 Midline Abdomen 850 / 850 Other: Mode Setting Midline Abdomen Continuous Continuous Results Procedures completed during hospitalization: See op notes Pending studies at discharge: Pending at discharge 11/23/17 10:13 Surgical [PTH] Routine 11/25/17 08:04 Surgical [PTH] Routine Labs on day of discharge: Labs from last 24 hours 11/26/17 11/26/17 11/26/17 11:53 06:01 05:15 WBC RBC Hgb Hct MCV MCH MCHC RDW Plt Count MPV Prelim Diff (Auto) WBC Differential Seg Neuts % (Manual) Band Neuts % (Manual) Lymphocytes % (Manual) Monocytes % (Manual) Metamyelocytes % (Man) Abs Neuts (Manual) Nucleated RBCs/100 WBC Differential Comment Platelet Estimate Platelet Morphology Ovalocytes Acanthocytes (Spur) PT 14.5 H INR 1.4 Sodium Potassium Chloride Carbon Dioxide Anion Gap BUN Creatinine Estimated GFR POC Glucose 134 H 129 H Random Glucose Calcium Prot Corrected Calcium Total Bilirubin AST ALT Alkaline Phosphatase Total Protein Albumin 11/26/17 11/26/17 11/26/17 05:15 05:15 02:18 WBC 10.1 RBC 2.71 L Hgb 8.6 L Hct 25.0 L MCV 92.4 MCH 31.6 MCHC 34.2 RDW 15.2 Plt Count 38 L D MPV 9.8 Prelim Diff (Auto) Manual diff required WBC Differential Manual diff final Seg Neuts % (Manual) 53 Band Neuts % (Manual) 32 H Lymphocytes % (Manual) 6 L Monocytes % (Manual) 8 Metamyelocytes % (Man) 1 Abs Neuts (Manual) 8.7 H Nucleated RBCs/100 WBC 1 H Differential Comment . Platelet Estimate Low L Platelet Morphology Normal Ovalocytes 1+ H Acanthocytes (Spur) Occ H PT INR Sodium 142 Potassium 4.3 Chloride 102 Carbon Dioxide 27.5 Anion Gap 13 BUN 52 H Creatinine 6.87 H Estimated GFR 11 L POC Glucose 146 H Random Glucose 138 H Calcium 5.8 L* Prot Corrected Calcium 6.6 L* Total Bilirubin 4.6 H AST 1157 H ALT 1323 H Alkaline Phosphatase 44 L Total Protein 5.2 L D Albumin 2.9 L 11/26/17 11/26/17 11/25/17 00:29 00:12 23:43 WBC RBC Hgb Hct MCV MCH MCHC RDW Plt Count MPV Prelim Diff (Auto) WBC Differential Seg Neuts % (Manual) Band Neuts % (Manual) Lymphocytes % (Manual) Monocytes % (Manual) Metamyelocytes % (Man) Abs Neuts (Manual) Nucleated RBCs/100 WBC Differential Comment Platelet Estimate Platelet Morphology Ovalocytes Acanthocytes (Spur) PT INR Sodium Potassium Chloride Carbon Dioxide Anion Gap BUN Creatinine Estimated GFR POC Glucose 96 61 L 64 L Random Glucose Calcium Prot Corrected Calcium Total Bilirubin AST ALT Alkaline Phosphatase Total Protein Albumin 11/25/17 11/25/17 11/25/17 23:42 23:40 16:19 WBC RBC Hgb Hct MCV MCH MCHC RDW Plt Count MPV Prelim Diff (Auto) WBC Differential Seg Neuts % (Manual) Band Neuts % (Manual) Lymphocytes % (Manual) Monocytes % (Manual) Metamyelocytes % (Man) Abs Neuts (Manual) Nucleated RBCs/100 WBC Differential Comment Platelet Estimate Platelet Morphology Ovalocytes Acanthocytes (Spur) PT INR Sodium Potassium Chloride Carbon Dioxide Anion Gap BUN Creatinine Estimated GFR POC Glucose 40 L* 65 L 114 H Random Glucose Calcium Prot Corrected Calcium Total Bilirubin AST ALT Alkaline Phosphatase Total Protein Albumin Preliminary micro results at discharge 11/23/17 11:06 Aerobic Blood Culture - Preliminary Blood - Line No growth in 3 days Anaerobic Blood Culture - Preliminary No growth in 3 days 11/23/17 04:50 Aerobic Blood Culture - Preliminary Blood - Line No growth in 3 days Anaerobic Blood Culture - Preliminary No growth in 3 days - Impressions ITS Impressions Cholangiopancreatography MRI 11/22/17 00:00 CONCLUSION: 1. Markedly dilated stomach filled with fluid. No evidence of biliary tree dilatation. Abdomen/Pelvis CT 11/22/17 02:53 CONCLUSION: 1. High-grade obstruction at the level of the third portion of the duodenum with massive gastric distention. There is equivocal mass in the pancreatic head. Endoscopy is recommended to evaluate the stricture. Chest X-Ray 11/26/17 04:00 CONCLUSION: NG tube tip at the EG junction. This should be advanced. Bibasilar areas of atelectasis or consolidation being worse on the left. Discharge Plan - Discharge Disposition Patient Disposition: 02 Disch To Another Hospital - Discharge Condition Condition: Critical - Discharge Order Discharge Orders: Discharge Order (Routine); Ordered 11/26/17 Ordered By: Osmin Jensen - Physicians Team Primary Care Provider: Primary Care Nicole Hsieh Attending Provider: Nina Grant Other Providers: Maddi King MD ; Nick Wellington MD ; Boni Sotelo MD
[2017-11-26 17:04] VITALS: PULSE 75; TEMP 99.2
[2017-11-26 17:14] LABS: ABG Base Excess 1.4 mmol/L (-2-2); ABG PCO2 42 mmHg (38-42); ABG PO2 152 mmHg (61-120)
[2017-11-26 19:54] LABS: IgA Serum 81 mg/dL (81-463); Tissue Transglutaminase Ab IgG ND U/mL (())
== END 2017-11-26 17:44 | disposition short-term general hospital (02) ==
LOC: NEPE 02:33 → NEDA 04:33 → HCIS 06:00 → N07 22:12 → N03 11-23 04:31
PROVIDERS: ADMIT Emergency Medicine; ATTEND Emergency Medicine

== ENCOUNTER 2017-11-29 11:04 | Inpatient (IN) ==
[2017-11-29] MEDS ORDERED: Midazolam 50 MG/50 ML Inj 50 MG/50 ML BAG IV.CONT PRN (18:41)
[2017-11-29] MEDS: fentaNYL 10 mcg/mL Premix Drip 2,500 MCG/250 ML BAG IV.SIG PRN (19:00)
--- NOTE | 2017-11-29 19:02 | P.HPCC ---
History of Present Illness Service: Critical Care Medicine Primary Care Physician: UNKNOWN History of Present Illness: Patient was recently admitted to [facility] 11/22 and transferred to [facility] 11/26/17 after the following hospital course: 47-year-old -[place] male with reportedly no past medical or past surgical history who was admitted to hospitalist service 11/22/17 after presenting with abdominal pain, nausea, vomiting. He had CT abd/pelvis with massive gastric distention. NG tube had been placed. I was called to patient's bedside for CODE BLUE PEA arrest. CPR was ongoing and patient had massive abdominal distension and gastric regurgitant in the airway. He was emergently intubated and large amount of gastric secretions suctioned from oropharynx. After 21 minutes of CPR, ROSC was obtained and he was profoundly hypotensive. Continued aggressive fluid resuscitation and initiated dopamine. He was transferred to [facility] where CVL and R radial art line were placed and he was given 7 L of crystalloid and albumin. CXR demonstrated pneumoperitoneum and Dr. Martin Gudino was called emergently and he immediately contacted OR for emergent ex lap. He had intraabdominal hypertension with IAP of 40 mmHg, though fortunately was able to be ventilated adequately after rocuronium 50 mg IV and was transferred to OR. Dr. Martin Gudino took to the operating room early in the morning on 11/23 and discovered tension pneumoperitoneum, massive gastric distension, ischemia of the proximal 2/3 of the stomach and large gastric perforation with massive intraperitoneal contamination with food particles. Dr. Isaacs placed 2 NGT and decompressed 2 L of succus. Patient had initial improvement in vital signs in the immediate postoperative period, however he subsequently became hypotensive requiring upward titration of levophed and addition of vasopressin and stress dose hydrocortisone. He remains on levophed 10 mcg/min, neosynephrine 80 mcg/ min, vasopressin 0.04 units/min with overall vasopressor requirement weaning overnight. He is oliguric and creatinine is continuing to climb. He was given 2 L of crystalloid and albumin overnight. He does have significant fluid losses with combination of abdominal dressing and NGT output, so I will give an additional L of crystalloid now to monitor hourly response as he certainly does not appear volume overloaded. Nonetheless Flotrac numbers are suggesting adequate volume status and we may be seeing the consequence of ischemic ATN. May ultimately require HD, however not at this time. Abdomen remains open and plan is to re-explore 11/25. 11/25: Patient has acceptable hemodynamics by Flotrac but remains septic with requirements for phenylephrine 200 mics per minute, Levophed 8 mics per minute and vasopressin 0.04 units/min for blood pressure support. This has improved overnight and the Bhavesh-Synephrine support has been weaned off completely. Acid base balance is acceptable. ATN has developed which will undoubtedly require hemodialysis. Potassium level is normal. He is at increased risk for an anesthetic now but there is an urgent need to check for residual gastric necrosis. 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 Since the source control surgery, the maintenance of normal acid-base balance has been less difficult. Patient remains anuric with a rising creatinine above 6.0. He is clearly ahead on volume and will benefit from dialysis. A 2 lumen hemodialysis catheter was placed on 11/25 and has been packed with dilute heparin solution. The right internal jugular central line is been in place for 4 days and accessed multiple times. The femoral art line has been in for 4 days. Shock liver was apparent after the cardiac arrest reflecting a transaminitis, elevated bilirubin, and prolonged INR. The INR has remained normal following the transfusion of 4 units of fresh frozen plasma prior to surgery yesterday. A 10% dextrose infusion continues because of ongoing problems with hypoglycemia. Thrombocytopenia at 37,000 persists. He has remained on antibiotic coverage with Pipracil/tazobactam and fungal coverage with fluconazole, all adjusted for renal failure. Present vasopressor requirements include levophed at 7 mics per minute and vasopressin at 0.04 units/min. The chest x-ray is consistent with minor aspiration at the time of his preoperative cardiac arrest on the floor and cultures have subsequently grown Klebsiella, pansensitive. The operative note will clarify the extent of the surgery but in essence the distal esophagus is stapled off and marked with 2 Prolene sutures. The antrum of the stomach is oversewn. Most of the stomach has been removed. The abdomen is open with a VAC dressing applied. Subjective: 11/29 Bowel was in discontinuity following subtotal gastrectomy and patient was transferred to [facility]. On reexploration 11/28 he underwent Dinh-en-y esophagojejunostomy, feeding jejunostomy placement, diagnostic EGD, primary fascial closure. Wound vac was applied to abdomen (though currently wet to dry dressing in place upon arrival). He was reportedly found to have candidemia and was started on micafungin and has undergone ophtho eval. Lines including CVL, Vascath and art line have all been changed at [facility] (though not clear when). He remains on mechanical ventilation and has been weaned off pressors. He was found to have BUE DVTs and is on heparin drip. He is on TPN and has been started on trickle tube feeds with Nepro via jejunostomy. NGT is to [facility]. He underwent HD postoperatively on 11/28. He has now been transferred back to [facility] for ongoing management. I have updated his father and stepmother. - Diagnosis (1) Gastric perforation (2) Status post total gastrectomy and Dinh-en-Y esophagojejunal anastomosis (3) Ischemic hepatitis (4) Gastric necrosis (5) Thrombocytopenia (6) Acute bilateral deep vein thrombosis (DVT) of upper extremities (7) Anemia (8) Leukocytosis (9) Candidemia (10) On total parenteral nutrition (TPN) (11) Hx of cardiac arrest (12) Acute hemodialysis patient (13) JACLYN (acute kidney injury) (14) Aspiration pneumonia (15) Acute respiratory failure Inpatient Certification: I certify that the inpatient services were ordered in accordance with Medicare regulations governing the order. This includes certification that hospital inpatient services are reasonable and necessary and in the case of services not specified as inpatient-only under 42 CFR 419.22(n), that they are appropriately provided as inpatient services in accordance to with the 2-midnight benchmark under 43 CFR 412.3(e) Review of Systems unobtainable due to endotracheal tube PMFSH - History History Provided By: Family Member - Medical History Medical History: Medical History (Last Reviewed 11/22/17 @ 22:14 by Kayla Prince MD) Patient denies medical problems - Surgical History Surgical History: Surgical History (Last Reviewed 11/22/17 @ 22:14 by Kayla Prince MD) No history of previous surgery - Family History Family History: Family History (Last Updated 11/22/17 @ 22:14 by Kayla Prince MD) Other Family history in first degree relatives is unremarkable - Tobacco History Second Hand Smoke Exposure: No Smoking Status: Never smoker - Alcohol History How Often Do You Have a Drink Containing Alcohol: Never - Substance Use History Substance History: No History of Abuse Medications and Allergies Active Medications: Active Medications Midazolam HCl (Versed Inj) 50 mg in 50 mls @ 2 mls/hr IV.CONT TITRATE PRN; Protocol PRN Reason: Per Protocol Dexmedetomidine HCl 200 mcg/ (Sodium Chloride) 50 mls @ 0 mls/hr IV.CONT TITRATE PRN; Protocol PRN Reason: Per Protocol Fentanyl (Fentanyl 10 Mcg/Ml Premix Drip) 2,500 mcg in 250 mls @ 5 mls/hr IV.SIG TITRATE PRN; Protocol PRN Reason: Per Protocol Allergies Allergy/AdvReac Type Severity Reaction Status Date / Time No Known Allergies Allergy Verified 11/22/17 02:38 Results - Labs CBC & Chem 7: 12/12/17 03:35 12/12/17 03:35 Exam Vital signs: BP 113/55 P 53 sats 100%. Narrative: GENERAL: Critically ill appearing -[place] male who is orotracheally intubated and has been sedated heavily for transport. SKIN: Warm and dry. There is a wound/skin tear right lower abdomen. HEAD: Atraumatic. Normocephalic. EYES: Pupils dilated and minimally reactive bilaterally (pharmacologic dilation for fundoscopic exam prior to transport). +bilateral icterus. ENT: NGT R nare, LIWS Mucous membranes pink and moist. NECK: Trachea midline. VASC: R IJ Vascath in place with dressing c/d/i. L IJ CVL in place. L radial art line in place. CARDIOVASCULAR: Regular rate and rhythm. No murmurs rubs or gallops. RESPIRATORY: No accessory muscle use. Clear to auscultation. Breath sounds equal bilaterally. Synchronous with vent. GASTROINTESTINAL: Abdomen generally soft, mildy distended. Two ZAINAB drains in place with serosanginous output, #1 is labelled anterior to anastomosis, #2 is labeled posterior to anastomosis. Red jejunostomy tube present in left abdomen. Midline dressing in place. : Delgado in place with minimal yellow urine in bag. MUSCULOSKELETAL: Extremities without clubbing, cyanosis. Edema noted bilateral knees. NEUROLOGICAL: Pupils as per above. Initially unresponsive to deep noxious stimuli on arrival but held versed and he subsequently followed commands. Caprini VTE Risk Assessment Caprini VTE Risk Assessment: Moderate/High Risk (score >= 2) Caprini Risk Assessment Model: Point Value = 1 Point Value = 2 Point Value = 3 Point Value = 5 Age 41-60 Minor surgery BMI > 25 kg/m2 Swollen legs Varicose veins or History of unexplained or recurrent spontaneous Oral contraceptives or hormone replacement Sepsis (< 1 month) Serious lung disease, including pneumonia (< 1 month) Abnormal pulmonary function Acute myocardial infarction Congestive heart failure (< 1 month) History of inflammatory bowel disease Medical patient at bed rest Age 61-74 Arthroscopic surgery Major open surgery (> 45 min) Laparoscopic surgery (> 45 min) Malignancy Confined to bed (> 72 hours) Immobilizing plaster cast Central venous access Age >= 75 History of VTE Family history of VTE Factor V Leiden Prothrombin [id number] Lupus anticoagulant Anticardiolipin antibodies Elevated serum homocysteine Heparin-induced thrombocytopenia Other congenital or acquired thrombophilia Stroke (< 1 month) Elective arthroplasty Hip, pelvis, or leg fracture Acute spinal cord injury (< 1 month) Prophylaxis Regimen: Total Risk Factor Score Risk Level Prophylaxis Regimen 0-1 Low Early ambulation 2 Moderate Order ONE of the following: *Sequential Compression Device (SCD) *Heparin 5000 units SQ BID 3-4 Higher Order ONE of the following medications: *Heparin 5000 units SQ TID *Enoxaparin/Lovenox 40 mg SQ daily (WT < 150 kg, CrCl > 30 mL/min) *Enoxaparin/Lovenox 30 mg SQ daily (WT < 150 kg, CrCl > 10-29 mL/min) *Enoxaparin/Lovenox 30 mg SQ BID (WT < 150 kg, CrCl > 30 mL/min) AND/OR *Sequential Compression Device (SCD) 5 or more Highest Order ONE of the following medications: *Heparin 5000 units SQ TID (Preferred with Epidurals) *Enoxaparin/Lovenox 40 mg SQ daily (WT < 150 kg, CrCl > 30 mL/min) *Enoxaparin/Lovenox 30 mg SQ daily (WT < 150 kg, CrCl > 10-29 mL/min) *Enoxaparin/Lovenox 30 mg SQ BID (WT < 150 kg, CrCl > 30 mL/min) AND *Sequential Compression Device (SCD) Assessment and Plan - Problem List (1) Gastric perforation Code(s): K25.5 - Chronic or unspecified gastric ulcer with perforation Status : Resolved (2) Status post total gastrectomy and Dinh-en-Y esophagojejunal anastomosis Code(s): Z90.3 - Acquired absence of stomach [part of]; Z98.0 - Intestinal bypass and anastomosis status Status: Acute (3) Ischemic hepatitis Code(s): K75.9 - Inflammatory liver disease, unspecified Status: Acute (4) Gastric necrosis Code(s): K31.89 - Other diseases of stomach and duodenum Status: Resolved (5) Thrombocytopenia Code(s): D69.6 - Thrombocytopenia, unspecified Status: Acute (6) Acute bilateral deep vein thrombosis (DVT) of upper extremities Code(s): I82.623 - Acute embolism and thrombosis of deep veins of upper extremity, bilateral Status: Acute (7) Anemia Code(s): D64.9 - Anemia, unspecified Status: Acute (8) Leukocytosis Code(s): D72.829 - Elevated white blood cell count, unspecified Status: Acute (9) Candidemia Code(s): B37.7 - Candidal sepsis Status: Acute (10) On total parenteral nutrition (TPN) Code(s): Z78.9 - Other specified health status Status: Acute (11) Hx of cardiac arrest Code(s): Z86.74 - Personal history of sudden cardiac arrest Status: Resolved (12) Acute hemodialysis patient Code(s): Z99.2 - Dependence on renal dialysis Status: Acute (13) JACLYN (acute kidney injury) Code(s): N17.9 - Acute kidney failure, unspecified Status: Acute (14) Aspiration pneumonia Code(s): J69.0 - Pneumonitis due to inhalation of food and vomit Status: Acute (15) Acute respiratory failure Code(s): J96.00 - Acute respiratory failure, unspecified whether with hypoxia or hypercapnia Status: Acute - Assessment and Plan Plan: NEURO: On precedex/fentanyl/versed drips for sedation during transfer. Will wean off versed in view of renal failure. Pupils dilated bilaterally--> stepmother states dilated fundoscopic exam prior to transfer. Patient did awaken and follow commands. RESP: Acute respiratory failure PRVC, Ventilator Bundle Ventilator weaning when appropriate Obtain CXR to evaluate tube positions post transfer. CV: Cardiac arrest 11/23/17 (PEA arrest due to shock secondary to acute gastric perf and tension pneumoperitoneum) Septic shock, resolved Now off pressors Hemodynamic monitoring with L radial art line. GI: s/p gastric perforation with tension pneumoperitoneum status post ex lap with primary repair of anterior gastric perforation with stapler 11/23 On second look 11/25 he was found to have gastric necrosis requiring subtotal gastrectomy and placement of AB Thera VAC dressing. The bowel was in discontinuity and he was transferred to [facility]. On 11/28 he underwent reexploration with Dinh-en-y esophagojejunostomy, feeding jejunostomy placement, diagnostic EGD, primary fascial closure. Gastric necrosis Ischemic hepatopathy NGT to LIWS, do not manipulate NGT per general surgery orders from [facility]. Has feeding jejunostomy and tube feeds with Nepro 10 mL per hour had been started at [facility], continue for now with further management per general surgery. ZAINAB drains in place #1 anterior to anastomosis, #2 posterior to the anastomosis. Management per general surgery. Continue TPN renal formula 46 mL/hr. Intermittent lipids daily. wound vac was in place at outside hospital, currently wet to dry dressings in place upon arrival. Consult general surgery Had right upper quadrant ultrasound on 11/27/17 that demonstrated contracted gallbladder with sludge. No evidence of cholecystitis. Echogenicity in right liver related to focal fatty change or altered perfusion. Color Doppler interrogation through the region demonstrates patent vascularity. FEN/RENAL: JACLYN secondary to ischemic ATN HD as started 11/26 at [facility]. Had HD 3 hours on 11/28 at [facility] wtih 1700 mL UF Has Delgado in place currently. Has R IJ Vascath. Monitor I/O and electrolytes. Nephrology consult. ID: Gastric perforation with large amount particulate peritoneal contamination 11/23 Acute Aspiration pneumonia Candidemia - reportedly blood cultures at OSH were positive. Will request records from microbiology. Patient had been on micafungin 100 mg IV daily (started at [facility]) with last administration at 10 AM on 11/29. Was previously on diflucan IV. On Zosyn 2.25 IV every 8 hours with last administration 11/29 at noon. Will continue zosyn/micafungin. Patient was evaluated by ophthalmology prior to transfer. I do not see an ophthalmology note in the transfer documentation. I have requested this document. Requested culture data from [facility]. Send blood culture x2 sets now. Sputum culture 11/24 with pansensitive Klebsiella pneumonia ID consult HEME: Thrombocytopenia Bilateral upper extremity DVTs U/s 11/26 BUE - thrombus R axillary, brachial and basilic veins and thrombus in left axillary and left brachial veins. U/s bilateral lower extremities 11/26 at [facility] negative from common femoral to popliteal vein levels. Arrived on heparin drip Hematology consult was obtained at [facility] and recommended heparin drip and transfuse prn for platelets <50k. Will use target PTT 40-65 now, no boluses. Monitor CBC ENDO: Monitor Glucose q4 hours and use low dose insulin sliding scale as indicated. PROPH: Heparin drip for DVT prophylaxis. Protonix 40 mg IV daily for stress ulcer prophylaxis. DVT prophylaxis. ACCESS: R IJ vascath , L IJ CVL, L radial art line. All existing lines were replaced at [facility]. FULL CODE Level 3 H and P. (6) Acute bilateral deep vein thrombosis (DVT) of upper extremities Qualifiers: Affected thrombotic vein of extremity: brachial Qualified Code(s): I82.623 - Acute embolism and thrombosis of deep veins of upper extremity, bilateral (15) Acute respiratory failure Qualifiers: Respiratory failure complication: hypoxia Qualified Code(s): J96.01 - Acute respiratory failure with hypoxia
[2017-11-29] MEDS ORDERED: Dextrose 50% in Water 50 ML Vial IV.PUSH PRN (19:22)
--- NOTE | 2017-11-29 19:44 | XR ---
EXAM DATE: 11/29/2017 7:40 PM EDT AGE/SEX: 47 years / Male INDICATIONS: Respiratory distress. CLINICAL DATA: This is the patient's subsequent encounter. Patient reports that signs and symptoms h ave been present for 1 week and indicates a pain score of Nonresponsive. MEDICAL/SURGICAL HISTORY: Non-responsive. Non-responsive. COMPARISON: [facility], CHEST 1V SINGLE AP, 11/26/2017. . FINDINGS: Endotracheal tube in good position. Left and right central lines in superior vena cava. Nasogastric t ube tip near the GE junction. No pneumothorax. Bilateral mostly basilar airspace disease and small ef fusions similar to exam from November 26. CONCLUSION: NG tip near GE junction. Basilar airspace disease and pleural effusions similar to prior exam. Electronically signed by: Tom Acevedo MD 11/29/2017 7:42 PM EDT
[2017-11-29 19:56] LABS: ABG Base Excess -3.6 mmol/L (-2-2); ABG PCO2 38 mmHg (38-42); ABG PO2 138 mmHg (61-120)
[2017-11-29 20:39] LABS: Hematocrit 22.4 % (39.0-51.0); Hemoglobin 7.7 gm/dL (13.0-17.0); Mean Corpuscular HGB Conc 34.4 % (32.0-36.0); Mean Corpuscular Hemoglobin 30.7 pg (27.0-34.0); Mean Corpuscular Volume 89.2 fL (80.0-100.0); Mean Platelet Volume 10.9 fL (7.0-11.0); Platelet Count 57 th/mm3 (150-450); Red Blood Count 2.51 mil/mm3 (4.50-5.90); Red Cell Distribution Width 14.9 % (11.6-17.2); White Blood Count 20.6 th/mm3 (4.0-11.0)
[2017-11-29 20:52] LABS: Activated Partial Thrombo Time 78.6 sec (24.3-30.1); INR 1.4 Ratio; Prothrombin Time 13.9 sec (9.8-11.6)
[2017-11-29 21:12] LABS: Calcium 7.4 mg/dL (8.5-10.1); Carbon Dioxide 22.9 meq/L (21.0-32.0); Magnesium 2.7 mg/dL (1.5-2.5)
[2017-11-29] MEDS: Insulin NovoLOG Aspart Correctional Sugar Inj SQ SCH (21:30)
[2017-11-29] MEDS: Chlorhexidine 0.12% Oral Kit 15 ML UDC OROPHARYNG SCH (21:31)
[2017-11-29] MEDS: Dexmedetomidine Inj 200 MCG in Sodium Chlor 0.9% Inj 48 ML IV.CONT PRN (21:34)
[2017-11-29] MEDS: Piperacil/Tazo 2.25 GM Premix 50 ML IV.SIG SCH (23:09)
[2017-11-30] MEDS: Dexmedetomidine Inj 200 MCG in Sodium Chlor 0.9% Inj 48 ML IV.CONT PRN ×6 (00:24→14:30)
[2017-11-30] MEDS: Insulin NovoLOG Aspart Correctional Sugar Inj SQ SCH ×6 (01:06→21:14)
[2017-11-30] MEDS: Oral Hygiene Kit OROPHARYNG SCH ×4 (01:07→16:21)
[2017-11-30] MEDS ORDERED: Chlorhexidine Gluconate 2% 1 Pack (2 Cloths) TOPICAL PRN (04:00)
[2017-11-30] MEDS: Chlorhexidine Gluconate 2% 1 Pack (2 Cloths) TOPICAL SCH (04:11)
[2017-11-30 04:16] LABS: Alanine Aminotransferase 438 U/L (12-78); Albumin 1.9 g/dL (3.4-5.0); Anion Gap 14 meq/L (5-15); Aspartate Aminotransferase 228 U/L (15-37); Blood Urea Nitrogen 101 mg/dL (7-18); Calcium 7.9 mg/dL (8.5-10.1); Carbon Dioxide 23.2 meq/L (21.0-32.0); Chloride 105 meq/L (98-107); Glomerular Filtration Rate 9 mL/min (>89); Glucose,Random 104 mg/dL (74-106); Sodium 142 meq/L (136-145)
[2017-11-30 04:19] LABS: Alkaline Phosphatase 52 U/L (45-117); Total Protein 4.9 g/dL (6.4-8.2)
[2017-11-30] MEDS: Piperacil/Tazo 2.25 GM Premix 50 ML IV.SIG SCH ×3 (05:23→22:26)
[2017-11-30] MEDS: Heparin Drip 25,000 UNIT/250 ML BAG IV.CONT PRN (05:44)
[2017-11-30 06:21] LABS: Baso # (Auto) 0.1 th/mm3 (0.0-0.2); Baso % (Auto) 0.3 % (0.0-2.0); Eos # (Auto) 0.4 th/mm3 (0.0-0.4); Eos % (Auto) 1.7 % (0.0-4.0); Hematocrit 23.1 % (39.0-51.0); Hemoglobin 7.6 gm/dL (13.0-17.0); Lymph # (Auto) 1.6 th/mm3 (1.0-4.8); Lymph % (Auto) 7.3 % (9.0-44.0); Mean Corpuscular HGB Conc 32.7 % (32.0-36.0); Mean Corpuscular Volume 91.6 fL (80.0-100.0); Mean Platelet Volume 11.5 fL (7.0-11.0); Mono # (Auto) 1.1 th/mm3 (0.0-0.9); Mono % (Auto) 5.2 % (0.0-8.0); Neut # (Auto) 18.7 th/mm3 (1.8-7.7); Neut % (Auto) 85.5 % (16.0-70.0); Platelet Count 57 th/mm3 (150-450); Red Blood Count 2.52 mil/mm3 (4.50-5.90); Red Cell Distribution Width 14.9 % (11.6-17.2); White Blood Count 21.9 th/mm3 (4.0-11.0)
[2017-11-30 08:11] LABS: Eosinophils 2 % (0-4); Lymphocytes 4 % (9-44); Metamyelocytes 1 % (0-1); Monocytes 3 % (0-8); Myelocytes 5 % (0-0); Plasma Cells 1 % (0-0); Promyelocyte 2 % (0-0); Toxic Granulation 2+
[2017-11-30 08:13] LABS: Burr Cells 1+
[2017-11-30 08:14] LABS: Acanthocytes Occ; Ovalocytes 1+; Platelet Morphology Normal (Normal)
[2017-11-30] MEDS: Chlorhexidine 0.12% Oral Kit 15 ML UDC OROPHARYNG SCH ×2 (08:22→20:21)
[2017-11-30] MEDS: Pantoprazole Inj 40 MG Vial IV.PUSH SCH (08:22)
[2017-11-30] MEDS ORDERED: Sod Chloride 0.9% Inj 1,000 ML OTHER PRN ×2 (09:14)
[2017-11-30] MEDS ORDERED: Acetaminophen 325 MG Tablet PO PRN (09:14)
[2017-11-30] MEDS ORDERED: Sod Chloride 0.9% Inj 1,000 ML IV.CONT PRN (09:14)
[2017-11-30] MEDS ORDERED: Heparin 10,000 UNITS/10 ML Vial (for IV use) OTHER PRN (09:14)
[2017-11-30] MEDS ORDERED: Gelatin 12 MM/7 MM Topical Foam TOPICAL PRN (09:14)
--- NOTE | 2017-11-30 11:11 | P.PNCC ---
Subjective Subjective Remarks/Hospital Course: Patient was recently admitted to [facility] 11/22 and transferred to [facility] 11/26/17 after the following hospital course: 47-year-old -Fij[place] male with reportedly no past medical or past surgical history who was admitted to hospitalist service 11/22/17 after presenting with abdominal pain, nausea, vomiting. He had CT abd/pelvis with massive gastric distention. NG tube had been placed. I was called to patient's bedside for CODE BLUE PEA arrest. CPR was ongoing and patient had massive abdominal distension and gastric regurgitant in the airway. He was emergently intubated and large amount of gastric secretions suctioned from oropharynx. After 21 minutes of CPR, ROSC was obtained and he was profoundly hypotensive. Continued aggressive fluid resuscitation and initiated dopamine. He was transferred to [facility] where CVL and R radial art line were placed and he was given 7 L of crystalloid and albumin. CXR demonstrated pneumoperitoneum and Dr. Martin Gudino was called emergently and he immediately contacted OR for emergent ex lap. He had intraabdominal hypertension with IAP of 40 mmHg, though fortunately was able to be ventilated adequately after rocuronium 50 mg IV and was transferred to OR. Dr. Martin Gudino took to the operating room early in the morning on 11/23 and discovered tension pneumoperitoneum, massive gastric distension, ischemia of the proximal 2/3 of the stomach and large gastric perforation with massive intraperitoneal contamination with food particles. Dr. Isaacs placed 2 NGT and decompressed 2 L of succus. Patient had initial improvement in vital signs in the immediate postoperative period, however he subsequently became hypotensive requiring upward titration of levophed and addition of vasopressin and stress dose hydrocortisone. He remains on levophed 10 mcg/min, neosynephrine 80 mcg/ min, vasopressin 0.04 units/min with overall vasopressor requirement weaning overnight. He is oliguric and creatinine is continuing to climb. He was given 2 L of crystalloid and albumin overnight. He does have significant fluid losses with combination of abdominal dressing and NGT output, so I will give an additional L of crystalloid now to monitor hourly response as he certainly does not appear volume overloaded. Nonetheless Flotrac numbers are suggesting adequate volume status and we may be seeing the consequence of ischemic ATN. May ultimately require HD, however not at this time. Abdomen remains open and plan is to re-explore 11/25. 11/25: Patient has acceptable hemodynamics by Flotrac but remains septic with requirements for phenylephrine 200 mics per minute, Levophed 8 mics per minute and vasopressin 0.04 units/min for blood pressure support. This has improved overnight and the Hbavesh-Synephrine support has been weaned off completely. Acid base balance is acceptable. ATN has developed which will undoubtedly require hemodialysis. Potassium level is normal. He is at increased risk for an anesthetic now but there is an urgent need to check for residual gastric necrosis. 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 Since the source control surgery, the maintenance of normal acid-base balance has been less difficult. Patient remains anuric with a rising creatinine above 6.0. He is clearly ahead on volume and will benefit from dialysis. A 2 lumen hemodialysis catheter was placed on 11/25 and has been packed with dilute heparin solution. The right internal jugular central line is been in place for 4 days and accessed multiple times. The femoral art line has been in for 4 days. Shock liver was apparent after the cardiac arrest reflecting a transaminitis, elevated bilirubin, and prolonged INR. The INR has remained normal following the transfusion of 4 units of fresh frozen plasma prior to surgery yesterday. A 10% dextrose infusion continues because of ongoing problems with hypoglycemia. Thrombocytopenia at 37,000 persists. He has remained on antibiotic coverage with Pipracil/tazobactam and fungal coverage with fluconazole, all adjusted for renal failure. Present vasopressor requirements include levophed at 7 mics per minute and vasopressin at 0.04 units/min. The chest x-ray is consistent with minor aspiration at the time of his preoperative cardiac arrest on the floor and cultures have subsequently grown Klebsiella, pansensitive. The operative note will clarify the extent of the surgery but in essence the distal esophagus is stapled off and marked with 2 Prolene sutures. The antrum of the stomach is oversewn. Most of the stomach has been removed. The abdomen is open with a VAC dressing applied. Subjective: 11/29: Bowel was in discontinuity following subtotal gastrectomy and patient was transferred to [facility]. On reexploration 11/28 he underwent Dinh-en-y esophagojejunostomy, feeding jejunostomy placement, diagnostic EGD, primary fascial closure. Wound vac was applied to abdomen (though currently wet to dry dressing in place upon arrival). He was reportedly found to have candidemia and was started on micafungin and has undergone ophtho eval. Lines including CVL, Vascath and art line have all been changed at [facility] (though not clear when). He remains on mechanical ventilation and has been weaned off pressors. He was found to have BUE DVTs and is on heparin drip. He is on TPN and has been started on trickle tube feeds with Nepro via jejunostomy. NGT is to [facility]. He underwent HD postoperatively on 11/28. He has now been transferred back to [facility] for ongoing management. I have updated his father and stepmother. 11/30: Patient re-admitted s/p transfer from [facility] overnight, otherwise no acute issues. Scheduled to undergo HD today. Objective Vital Signs / I&O: Vital Signs 11/29/17 19:00 11/29/17 20:00 11/29/17 20:03 Temperature 97.6 F Pulse Rate 54 L 54 L 54 L Respiratory Rate 14 14 14 Blood Pressure Pulse Oximetry 99 100 100 11/29/17 21:00 11/29/17 21:10 11/29/17 21:21 Temperature Pulse Rate 53 L 52 L 62 Respiratory Rate 14 15 16 Blood Pressure Pulse Oximetry 100 100 100 11/29/17 22:00 11/29/17 22:28 11/29/17 23:00 Temperature Pulse Rate 71 60 60 Respiratory Rate 20 17 19 Blood Pressure Pulse Oximetry 99 99 100 11/30/17 00:00 11/30/17 00:02 11/30/17 00:05 Temperature 98.1 F Pulse Rate 62 62 Respiratory Rate 16 16 16 Blood Pressure Pulse Oximetry 100 100 100 11/30/17 01:00 11/30/17 02:00 11/30/17 03:00 Temperature Pulse Rate 67 63 64 Respiratory Rate 14 14 14 Blood Pressure Pulse Oximetry 100 100 100 11/30/17 03:54 11/30/17 04:00 11/30/17 05:00 Temperature 98.5 F Pulse Rate 63 63 Respiratory Rate 14 14 14 Blood Pressure 132/68 118/63 Pulse Oximetry 100 100 100 11/30/17 06:00 11/30/17 07:00 11/30/17 08:00 Temperature 98.4 F Pulse Rate 61 60 58 L Respiratory Rate 14 14 14 Blood Pressure 117/61 117/61 Pulse Oximetry 100 100 100 11/30/17 08:03 Temperature Pulse Rate Respiratory Rate 14 Blood Pressure Pulse Oximetry 100 Intake & Output 11/29/17 11/30/17 11/30/17 18:59 06:59 18:59 Intake Total 250 / 250 100 / 100 Output Total 707 / 707 Balance -457 / -457 100 / 100 Weight 95.3 kg Intake: IV 250 / 250 100 / 100 Precedex Inj 200 MCG In NS Inj 150 / 150 100 / 100 48 ML @ 0.2 MCG/KG/HR 4.68 mls/ hr IV.CONT TITRATE PRN Rx#: [id number] Zosyn 2.25 GM Premix 50 ML @ 100 / 100 100 mls/hr IV.SIG Q8H COLE Rx#: [id number] Output: Urine Amount (Catheter) Indwelling Temp Sensing Catheter Wound Drainage 650 / 650 # 1 Right Abdomen 300 / 300 # 2 Right Abdomen 350 / 350 Other: Weight On Admission 93.7 kg Result Diagrams: 11/30/17 05:45 11/30/17 03:19 Objective Remarks: GEN: Chronically ill-appearing, no distress HEENT: NCAT, pupils 4 mm and reactive bilaterally NECK: RIJ vasc-cath and LIJ TLC present, clean/ dry/ intact CARDIO: Borderline bradycardic to high 50s, no murmur PULM: Mechanical breath sounds bilaterally ABD: Midline surgical bandages clean/ dry/ intact. ZAINAB #1 is anterior to esophagojejunostomy anastomosis, ZAINAB #2 posterior, both with serosanguineous drainage. Abdomen soft. EXT/MSK: Anasarca SKIN: No rashes or lesions NEURO: GCS 8-9T ([id number]), RASS -1 to -2, does not follow commands PSYCH: Unable to assess Assessment and Plan - Assessment and Plan Plan: NEURO: Currently on precedex @ 0.8, fentanyl @ 150 Pupils dilated bilaterally--> stepmother states dilated fundoscopic exam prior to transfer (fungemia) RESP: Acute respiratory failure PRVC, ventilator bundle Ventilator weaning as tolerated; if patient is unable to be extubated within the next 2-3 days, will need trach CXR shows lines and tubes in adequate position CV: Cardiac arrest 11/23/17 (PEA arrest due to shock secondary to acute gastric perf and tension pneumoperitoneum) Septic shock, resolved Now off pressors Hemodynamic monitoring with L radial art line GI: s/p gastric perforation with tension pneumoperitoneum status post ex lap with primary repair of anterior gastric perforation with stapler 11/23 On second look 11/25 he was found to have gastric necrosis requiring subtotal gastrectomy and placement of Abthera VAC dressing. The bowel was in discontinuity and he was transferred to [facility]. On 11/28 he underwent reexploration with Dinh-en-y esophagojejunostomy, feeding jejunostomy placement, diagnostic EGD, primary fascial closure Gastric necrosis Ischemic hepatopathy NGT to LIWS, do not manipulate NGT per general surgery orders from [facility]. Has feeding jejunostomy and tube feeds with Nepro 10 mL per hour had been started at [facility], continue for now with further management per general surgery. ZAINAB drains in place #1 anterior to anastomosis, #2 posterior to the anastomosis. Management per general surgery. Continue TPN renal formula 46 mL/hr. Intermittent lipids daily. General surgery recs appreciated Had right upper quadrant ultrasound on 11/27/17 that demonstrated contracted gallbladder with sludge. No evidence of cholecystitis. Echogenicity in right liver related to focal fatty change or altered perfusion. Color Doppler interrogation through the region demonstrates patent vascularity. FEN/RENAL: JACLYN secondary to ischemic ATN HD as started 11/26 at [place]. Had HD 3 hours on 11/28 at [facility] with 1700 mL UF; HD today Has Delgado in place currently. Has R IJ Vascath. Monitor I/O and electrolytes. Nephrology consult. Will check triglycerides and prealbumin with tomorrow's labs ID: Gastric perforation with large amount particulate peritoneal contamination 11/23 Acute Aspiration pneumonia Candidemia - reportedly blood cultures at OSH were positive. Will request records from microbiology. Patient had been on micafungin 100 mg IV daily (started at [facility]) with last administration at 10 AM on 11/29. Was previously on diflucan IV. On Zosyn 2.25 IV every 8 hours with last administration 11/29 at noon. Will continue zosyn/micafungin. Patient was evaluated by ophthalmology prior to transfer. I do not see an ophthalmology note in the transfer documentation. I have requested this document. Requested culture data from [facility]. Send blood culture x2 sets now. Sputum culture 11/24 with pansensitive Klebsiella pneumonia ID consult HEME: Thrombocytopenia Bilateral upper extremity DVTs U/s 11/26 BUE - thrombus R axillary, brachial and basilic veins and thrombus in left axillary and left brachial veins. U/s bilateral lower extremities 11/26 at [facility] negative from common femoral to popliteal vein levels. Arrived on heparin drip Hematology consult was obtained at [facility] and recommended heparin drip and transfuse prn for platelets <50k. Will use target PTT 40-65 now, no boluses. Monitor CBC ENDO: Monitor Glucose q4 hours and use low dose insulin sliding scale as indicated. PROPH: Heparin drip for DVT prophylaxis. Protonix 40 mg IV daily for stress ulcer prophylaxis. DVT prophylaxis. ACCESS: R IJ vascath , L IJ CVL, L radial art line. All existing lines were replaced at [facility]. FULL CODE Counseling/ Coordination of Care: Total critical care time: 42 minutes. This includes examining the patient, gathering history from someone other than the patient (i.e., chart review), discussing the patient's care with other providers, managing the patient's blood pressure and ventilator settings, ordering and interpreting radiology studies, ordering and interpreting laboratory studies, managing the patient's pain and sedation requirements, re-evaluation at frequent intervals, and documentation. All critical care time is separate and exclusive of procedures, teaching, and patient/ family updates. To help prompt me to consider important information that might be impacting today's encounter and assessment, information from prior notes written by myself or my colleagues may have been "brought forward" into today's note. My signature on this note, however, is an attestation that I personally performed the exam, history, and/or decision-making noted today, and, unless otherwise indicated, the interactions with patient, family, and staff as well as the review of records all occurred today. I also attest that the listed assessment and stated plan reflect my best clinical judgment today based on the combination of historical information, prior notes, and today's exam/ interactions. Code Status: Full
--- NOTE | 2017-11-30 13:45 | P.DIET ---
Nutritional Evaluation Type of nutrition evaluation: initial Nutrition consult regarding: Tube Feeding, TPN/PPN Nutrition screening: [facility] Screening comments: Re-admiited transfer from [facility]. Subjective Subjective Comments: Used ht from previous admission (75 inches). Objective - Diagnosis Gastroenteritis - Objective % IBW: 107 (IBW = 196#) Body Weight Used for Calculations: Actual (95.3 kg) Energy Needs - Lower Range (kCal/kg): 28 Energy Needs - Upper Range (kCal/kg): 32 Lower Limit kCal/kg (kCals): 2,668 Upper Limit kCal/kg (kCals): 3,050 Lower Limit Protein Factor (Grams per Kg): 1.2 Upper Limit Protein Factor (Grams per Kg): 1.5 Lower Protein Needs (Protein): 114 Upper Protein Needs (Protein): 143 Dietitian Reviewed in Medical Record: Curent medications, Intake & Output, Labs , Medical history, TPN/PPN, Tube feeding Diet Order: NPO Objective Comments: see recent extensive hx in H&P Labs: TG 99, BUN/craet 101/7.98, Est GFR 9, LFTs elev Feeding - Current Tube Feeding Tube Feeding Product: Nepro Tube Feeding Rate: 10 (mls/hr) Tube Feeding Route: jejunostomy Current kCals Provided by Tube Feedin Current Protein Provided by Tube Feeding (gPRO): 19 - Current TPN/PPN Current TPN: Clinimix 5/20 Current TPN/PPN Rate (ml/hr): 42 Amino Acid and Dextrose Current kCals Provided: 880 Amino Acid and Dextrose Current Protein Provided: 50 Current Lipid Concentration: 20% Current Lipids Rate: 250 mls daily over 8 hours Current kCal Provided by TPN/PPN: 1,380 Assessment Assessment: Pt receiving TPN/lipids and TF as above for a total of 1812 kcals and 69 gms protein. NG-T to LIWS. Pt is on dialysis. To meet 100% of needs with trickle Nepro @ 10 mls/hr, will need to increase current TPN formula to 83 mls/hr. This will provide total nutrition of 2692 kcals and 119 gms protein. Recommendations: Nepro @ 10 mls/hr trickle TPN: Clinimix 5/20 @ 83 mls/hr Lipids: 20% lipids 250 mls/day Monitor glucose closely. Request weekly TG Dietitian to Monitor: Lab values, Intake & Output, Tube feeding tolerance, TPN/ PPN tolerance, Weight change, Medical course
[2017-11-30] MEDS: Heparin 10,000 UNITS/10 ML Vial (for IV use) OTHER PRN (14:06)
[2017-11-30] MEDS: fentaNYL 10 mcg/mL Premix Drip 2,500 MCG/250 ML BAG IV.SIG PRN (16:21)
--- NOTE | 2017-11-30 16:46 | P.CONNP ---
History of Present Illness Service: Nephrology Reason for Consult: JACLYN Primary Care Provider: UNKNOWN History of Present Illness: This patient had been transferred to [facility] from here on . He had presented here with abdominal pain, was found to have pneumoperitoneum, had gastric perforation. 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 In [place], On reexploration 11/28 he underwent Dinh-en-y esophagojejunostomy, feeding jejunostomy placement, diagnostic EGD, primary fascial closure. He has been transferred back here. He was seen during dialysis. He is on Heparin drip, on TPN, tube feeding through J tube at 10 ml/hour. On Fentanyl drip. Review of Systems unobtainable due to mental status PMFSH - History History Provided By: Family Member - Medical History Medical History: Medical History (Last Reviewed 11/22/17 @ 22:14 by Kayla Prince MD) Patient denies medical problems - Surgical History Surgical History: Surgical History (Last Reviewed 11/22/17 @ 22:14 by Kayla Prince MD) No history of previous surgery - Family History Family History: Family History (Last Updated 11/22/17 @ 22:14 by Kayla Prince MD) Other Family history in first degree relatives is unremarkable - Tobacco History Second Hand Smoke Exposure: No Smoking Status: Never smoker - Alcohol History How Often Do You Have a Drink Containing Alcohol: Never - Substance Use History Substance History: No History of Abuse Medications and Allergies Active Medications: Active Medications Acetaminophen (Tylenol) 650 mg PO UNSCH X1 PRN PRN Reason: SEE LABEL COMMENTS Albuterol (Albuterol Neb (Prn)) 2.5 mg NEB Q2HR NEB PRN PRN Reason: SHORTNESS OF BREATH/WHEEZING Chlorhexidine Gluconate (Chlorhexidine 2% Cloth) 3 pack TOPICAL DAILY@0400 COLE Stop: 12/05/17 03:59 Last Admin: 11/30/17 04:11 Dose: 3 pack Chlorhexidine Gluconate (Chlorhexidine 2% Cloth) 3 pack TOPICAL DAILY@0400 PRN PRN Reason: Extra cloth needed Stop: 12/05/17 03:59 Chlorhexidine Gluconate (Peridex 0.12% Oral Kit) 15 ml OROPHARYNG BID@0800, 2000 COLE Last Admin: 11/30/17 08:22 Dose: 15 ml Clonidine HCl (Catapres) 0.1 mg PO UNSCH X1 PRN PRN Reason: SEE LABEL COMMENTS Dextrose (D50w Vial) 50 ml IV.PUSH UNSCH PRN PRN Reason: PER HYPOGLYCEMIA PROTOCOL Diphenhydramine HCl (Benadryl) 25 mg PO UNSCH PRN PRN Reason: SEE LABEL COMMENTS Fentanyl Citrate (Fentanyl Inj) 50 mcg IV PUSH Q1H PRN PRN Reason: Pain scale 6-10, &/or sedation Gelatin (Gelfoam 12 Mm/7 Mm Topical) 1 foam TOPICAL UNSCH PRN PRN Reason: help stop bleeding from site Gentamicin Sulfate (Gentamicin Inj) 20 mg OTHER WITH DIALYSIS PRN PRN Reason: Dwell Gentamycin Lock Last Admin: 11/30/17 14:07 Dose: 20 mg Glucagon (Glucagon Inj) 1 mg OTHER PRN PRN PRN Reason: for Hypoglycemia Protocol Heparin Sodium (Porcine) (Heparin Inj) 8,000 units OTHER WITH DIALYSIS PRN PRN Reason: for machine prime Heparin Sodium (Porcine) (Heparin Inj) 0 units OTHER WITH DIALYSIS PRN PRN Reason: Dwell Heparin to Fill Catheter Last Admin: 11/30/17 14:06 Dose: 1,000 units Dexmedetomidine HCl 200 mcg/ (Sodium Chloride) 50 mls @ 4.68 mls/hr IV.CONT TITRATE PRN; Protocol PRN Reason: Per Protocol Last Titration: 11/30/17 14:32 Dose: 0.8 mcg/kg/hr, 18.74 mls/hr Fentanyl (Fentanyl 10 Mcg/Ml Premix Drip) 2,500 mcg in 250 mls @ 5 mls/hr IV.SIG TITRATE PRN; Protocol PRN Reason: Per Protocol Last Titration: 11/30/17 14:15 Dose: 150 mcg/hr, 15 mls/hr Micafungin Sodium 100 mg/ (Sodium Chloride) 100 mls @ 100 mls/hr IV.SIG Q24H COLE Last Admin: 11/30/17 09:09 Dose: 100 mls/hr Piperacillin/Tazobactam/Dextrose (Zosyn 2.25 Gm Premix) 50 mls @ 100 mls/hr IV.SIG Q8H COLE Last Infusion: 11/30/17 05:53 Dose: Infused Heparin Sodium/Dextrose (Heparin/D5w 25,000 U/250 Ml) 25,000 unit in 250 mls @ 0 mls/hr IV.CONT TITRATE PRN; Protocol PRN Reason: Per Protocol Last Titration: 11/30/17 09:55 Dose: 1,300 units/hr, 13 mls/hr Sodium Chloride 5.5 meq/Sodium Acetate 29.5 meq/Potassium Chloride 20 meq/ Magnesium Chloride 5 meq/Calcium Chloride 4.5 gm/Multivitamins 10 ml/ Folic Acid 1 mg/ Amino Acids 1,076.4881 mls @ 42 mls/hr IV.SIG Q24H COLE Stop: 11/30/17 19:59 Last Admin: 11/30/17 09:18 Dose: 42 mls/hr Fat Emulsion Intravenous (Intralipid 20% Inj) 250 mls @ 31.25 mls/hr IV.SIG Q24H COLE Albumin Human (Flexbumin 25% Inj) 100 mls @ 60 mls/hr IV.SIG WITH DIALYSIS PRN PRN Reason: hypotension / volume replace Sodium Chloride (Ns Inj) 1,000 mls @ 0 mls/hr OTHER .Q0M PRN PRN Reason: for prime and rinse back Sodium Chloride (Ns Inj) 1,000 mls @ 200 mls/hr OTHER .Q5H PRN PRN Reason: for dialyzer flush PRN Sodium Chloride (Ns Inj) 1,000 mls @ 0 mls/hr IV.CONT .Q0M PRN PRN Reason: hypotension / volume replace Sodium Chloride 5.5 meq/Sodium Acetate 29.5 meq/Potassium Chloride 20 meq/ Magnesium Chloride 5 meq/Calcium Chloride 4.5 meq/Multivitamins 10 ml/ Folic Acid 1 mg/ Amino Acids 1,034.7969 mls @ 40.374 mls/hr IV.SIG Q24H COLE Insulin Aspart (Novolog Insulin Correctional Sugar Inj) 0 unit SQ Q4HR COLE; Protocol Last Admin: 11/30/17 14:29 Dose: Not Given Mannitol (Mannitol Inj) 12.5 gm IV.PUSH UNSCH PRN PRN Reason: hypotension / volume replace Miscellaneous Medication () 1 each OROPHARYNG 0000,0400,1200,1600 COLE Last Admin: 11/30/17 14:29 Dose: 1 each Nitroglycerin (Nitrostat Sl) 0.4 mg SL Q5M PRN PRN Reason: CHEST PAIN Ondansetron HCl (Zofran Inj) 4 mg IV.PUSH Q6H PRN PRN Reason: NAUSEA OR VOMITING Ondansetron HCl (Zofran Inj) 4 mg IV.PUSH UNSCH X1 PRN PRN Reason: WITH DIALYSIS Pantoprazole Sodium (Protonix Inj) 40 mg IV.PUSH DAILY [facility] Last Admin: 11/30/17 08:22 Dose: 40 mg Sodium Chloride (Ns Flush) 2 ml IV.FLUSH BID [facility] Last Admin: 11/30/17 08:22 Dose: 2 ml Sodium Chloride (Ns Flush) 2 ml IV.FLUSH PRN PRN PRN Reason: FLUSH AFTER USING IV ACCESS Sodium Chloride (Ns Flush) 5 ml IV.FLUSH UNSCH PRN PRN Reason: flush each lumen during HD Allergies Allergy/AdvReac Type Severity Reaction Status Date / Time No Known Allergies Allergy Verified 11/22/17 02:38 Exam Vital signs: Vital Signs 11/29/17 19:00 11/29/17 20:00 11/29/17 20:03 Temperature 97.6 F Pulse Rate 54 L 54 L 54 L Respiratory Rate 14 14 14 Blood Pressure Pulse Oximetry 99 100 100 11/29/17 21:00 11/29/17 21:10 11/29/17 21:21 Temperature Pulse Rate 53 L 52 L 62 Respiratory Rate 14 15 16 Blood Pressure Pulse Oximetry 100 100 100 11/29/17 22:00 11/29/17 22:28 11/29/17 23:00 Temperature Pulse Rate 71 60 60 Respiratory Rate 20 17 19 Blood Pressure Pulse Oximetry 99 99 100 11/30/17 00:00 11/30/17 00:02 11/30/17 00:05 Temperature 98.1 F Pulse Rate 62 62 Respiratory Rate 16 16 16 Blood Pressure Pulse Oximetry 100 100 100 11/30/17 01:00 11/30/17 02:00 11/30/17 03:00 Temperature Pulse Rate 67 63 64 Respiratory Rate 14 14 14 Blood Pressure Pulse Oximetry 100 100 100 11/30/17 03:54 11/30/17 04:00 11/30/17 05:00 Temperature 98.5 F Pulse Rate 63 63 Respiratory Rate 14 14 14 Blood Pressure 132/68 118/63 Pulse Oximetry 100 100 100 11/30/17 06:00 11/30/17 07:00 11/30/17 08:00 Temperature 98.4 F Pulse Rate 61 60 58 L Respiratory Rate 14 14 14 Blood Pressure 117/61 117/61 Pulse Oximetry 100 100 100 11/30/17 08:03 11/30/17 11:38 11/30/17 12:00 Temperature 98.5 F Pulse Rate 58 L Respiratory Rate 14 18 15 Blood Pressure Pulse Oximetry 100 100 100 11/30/17 16:05 Temperature Pulse Rate Respiratory Rate 27 H Blood Pressure Pulse Oximetry 99 Intake & Output 11/29/17 11/30/17 11/30/17 18:59 06:59 18:59 Intake Total 250 / 250 150 / 150 Output Total 707 / 707 3000 / 3000 Balance -457 / -457 -2850 / -2850 Weight 95.3 kg Intake: IV 250 / 250 150 / 150 Precedex Inj 200 MCG In NS Inj 150 / 150 150 / 150 48 ML @ 0.2 MCG/KG/HR 4.68 mls/ hr IV.CONT TITRATE PRN Rx#: [id number] Zosyn 2.25 GM Premix 50 ML @ 100 / 100 100 mls/hr IV.SIG Q8H COLE Rx#: [id number] Output: Hemodialysis Amount 3000 / 3000 Urine Amount (Catheter) 57 / 57 Indwelling Temp Sensing 57 / 57 Catheter Wound Drainage 650 / 650 # 1 Right Abdomen 300 / 300 # 2 Right Abdomen 350 / 350 Other: Weight On Admission 93.7 kg - Constitutional thin, agitated Comments: on the ventilator. - Routine HEENT Exam Head: Present: normocephalic, atraumatic Eye: Present: EOMI, PERRL - Routine Neck Exam Absent: JVD, carotid bruit, lymphadenopathy, thyromegaly - Routine Respiratory Exam Comments: on the vent. Vented breath sounds heard bilaterally. - Routine Cardiovascular Exam Present: RRR - Routine Abdominal Exam Comments: Post operative changes: has two drains in the right upper quadrant and middle quadrant. Midline abdominal wound. J tube in place. - Routine Extremities Exam Present: edema - Routine Neurological Exam agitated. Results - Lab Results 11/30/17 05:45 11/30/17 03:19 Most recent lab results ABG pH 7.36 (7.380-7.420) L 11/29/17 19:46 ABG pCO2 38 mmHg (38-42) 11/29/17 19:46 ABG pO2 138 mmHg (61-120) H 11/29/17 19:46 ABG HCO3 21 mmol/L (22-26) L 11/29/17 19:46 Calcium 7.9 mg/dL (8.5-10.1) L 11/30/17 03:19 Phosphorus 3.8 mg/dL (2.5-4.9) 11/29/17 19:25 Magnesium 2.7 mg/dL (1.5-2.5) H 11/29/17 19:25 Assessment and Plan - Assessment (1) JACLYN (acute kidney injury) Code(s): N17.9 - Acute kidney failure, unspecified Status: Acute Plan: patient likely has developed ATN. Now he is oliganuric. Dialysis today, most likely again tomorrow. He appears catabolic, has very high waste products. (2) Acute respiratory failure Code(s): J96.00 - Acute respiratory failure, unspecified whether with hypoxia or hypercapnia Status: Acute Plan: Vent support. (3) Gastric perforation Code(s): K25.5 - Chronic or unspecified gastric ulcer with perforation Status : Acute Plan: s/p surgery. Subtotal gastrectomy here. In [facility] he had: Dinh-en-y esophagojejunostomy, feeding jejunostomy placement, diagnostic EGD, primary fascial closure. Date of procedure: 11/28/17 (4) Candidemia Code(s): B37.7 - Candidal sepsis Status: Acute Plan: On Micafungin. Patient is also on Zosyn. Dose medications appropriate to renal function. (5) DVT (deep venous thrombosis) Code(s): I82.409 - Acute embolism and thrombosis of unspecified deep veins of unspecified lower extremity Status: Acute Plan: On heparin drip. DVT of bilateral upper extremities. - Attending Attestation Thanks for the consult. (2) Acute respiratory failure Qualifiers: Respiratory failure complication: hypoxia Qualified Code(s): J96.01 - Acute respiratory failure with hypoxia
[2017-11-30] MEDS: Propofol 1000 mg/100 ml Inj 1,000 MG/100 ML BOTTLE IV.CONT PRN ×2 (17:28→21:45)
[2017-11-30] MEDS ORDERED: RASS Change Order MISCELLANE ONE (18:00)
--- NOTE | 2017-11-30 21:32 | MB ---
cc: Edwin Dorsey MD DATE: 11/30/2017 REASON FOR CONSULTATION: Surgical patient known to our service, after transfer back from [facility]. HISTORY OF PRESENT ILLNESS: The patient is a 47-year-old male who had a gastric perforation and developed septic shock. He had repair of his stomach with subsequent take back demonstrating gastric necrosis. The patient underwent subtotal gastrectomy in [place] on 11/26/2017, and patient was then transferred to [facility]. The patient underwent reexploration 11/28/2017 with Dinh-en-Y esophagojejunostomy feeding jejunostomy placement. Primary fascial closure with wound VAC. The VAC was removed and the patient had wet-to-dry dressings. The patient was found to have candidemia and was started on micafungin. The patient remains on mechanical ventilation. He had bilateral upper extremity DVT and is on heparin drip. The patient is receiving Nepro via jejunostomy. NG tube is to low intermittent wall suction. REVIEW OF SYSTEMS: Unobtainable. PAST MEDICAL HISTORY: Reviewed above. The patient has no other medical problems. No previous history of surgery. SOCIAL HISTORY: The patient was a never smoker, does not drink alcohol. No history of substance abuse. MEDICATIONS: At this time include: 1. Midazolam. 2. Dexmedetomidine. 3. Fentanyl drip. PHYSICAL EXAMINATION: GENERAL: Reveals an male who is orotracheally intubated. SKIN: Demonstrates some breakdown with epidermolysis in the right lower quadrant. This appears clean, however. CHEST: Clear to auscultation. CARDIOVASCULAR: Reveals regular rate and rhythm. ABDOMEN: Soft with 2 ZAINAB drains on the right side of the abdomen. There is serosanguineous drainage present. Delgado catheter is present. ASSESSMENT: 1. Multiple problems including previous gastric perforation, status post subtotal gastrectomy and Dinh-en-Y esophagojejunal anastomosis and jejunal feeding tube. 2. Ischemic hepatitis. 3. Thrombocytopenia. 4. Acute bilateral upper extremity deep venous thrombosis. 5. Anemia. 6. Leukocytosis. 7. Candidemia. 8. IV nutrition being given. 9. History of cardiac arrest. 10. Renal failure with acute kidney injury requiring hemodialysis, currently undergoing dialysis. 11. Aspiration pneumonia. 12. Ventilator-dependent acute respiratory failure. PLAN: Nothing to add from a surgical standpoint. Can ramp up jejunostomy tube feeding as the patient tolerates. Wound appears clean at this time. Would leave drains in until the patient is extubated, and after upper GI study is obtained demonstrating no leak. Would anticipate performing such a study 7-10 days after surgery; thus after 12/04/2017, an upper GI study could be contemplated. Not much for us to add at this time. Thank you for this consult. MD KANDY Mcelroy/anne , 07:47 PM , 07:55 PM
[2017-12-01] MEDS: Heparin Drip 25,000 UNIT/250 ML BAG IV.CONT PRN ×2 (00:25→20:59)
[2017-12-01] MEDS: Oral Hygiene Kit OROPHARYNG SCH ×4 (01:56→17:26)
[2017-12-01] MEDS: Insulin NovoLOG Aspart Correctional Sugar Inj SQ SCH ×5 (02:19→17:27)
[2017-12-01] MEDS: Propofol 1000 mg/100 ml Inj 1,000 MG/100 ML BOTTLE IV.CONT PRN ×6 (02:20→22:21)
[2017-12-01] MEDS: fentaNYL 10 mcg/mL Premix Drip 2,500 MCG/250 ML BAG IV.SIG PRN ×3 (02:20→22:40)
[2017-12-01] MEDS: Chlorhexidine Gluconate 2% 1 Pack (2 Cloths) TOPICAL SCH (04:58)
[2017-12-01] MEDS: Piperacil/Tazo 2.25 GM Premix 50 ML IV.SIG SCH ×3 (05:05→22:00)
[2017-12-01 05:30] LABS: Baso % (Auto) 0.1 % (0.0-2.0); Eos # (Auto) 0.3 th/mm3 (0.0-0.4); Eos % (Auto) 1.2 % (0.0-4.0); Hemoglobin 7.3 gm/dL (13.0-17.0); Lymph # (Auto) 1.9 th/mm3 (1.0-4.8); Lymph % (Auto) 6.8 % (9.0-44.0); Mean Corpuscular HGB Conc 34.7 % (32.0-36.0); Mean Corpuscular Hemoglobin 31.4 pg (27.0-34.0); Mean Corpuscular Volume 90.4 fL (80.0-100.0); Mean Platelet Volume 12.6 fL (7.0-11.0); Mono # (Auto) 1.3 th/mm3 (0.0-0.9); Mono % (Auto) 4.9 % (0.0-8.0); Platelet Count 72 th/mm3 (150-450); Red Blood Count 2.32 mil/mm3 (4.50-5.90); Red Cell Distribution Width 14.8 % (11.6-17.2); White Blood Count 27.5 th/mm3 (4.0-11.0)
[2017-12-01 05:41] LABS: Hematocrit 20.9 % (39.0-51.0)
[2017-12-01 05:58] LABS: Albumin 1.7 g/dL (3.4-5.0); Calcium 7.3 mg/dL (8.5-10.1); Carbon Dioxide 25.1 meq/L (21.0-32.0); Magnesium 2.5 mg/dL (1.5-2.5); Phosphorus 2.6 mg/dL (2.5-4.9); Potassium 3.5 meq/L (3.5-5.1); Total Protein 4.8 g/dL (6.4-8.2)
[2017-12-01 06:15] LABS: Lymphocytes 8 % (9-44); Metamyelocytes 1 % (0-1); Monocytes 4 % (0-8)
[2017-12-01 06:16] LABS: Ovalocytes 1+; Toxic Granulation 1+
[2017-12-01] MEDS: fentaNYL Citrate Inj 100 MCG/2 ML Ampul IV PUSH PRN ×3 (06:37→22:21)
--- NOTE | 2017-12-01 08:34 | P.PNCC ---
Subjective Subjective Remarks/Hospital Course: [place] [facility] [place] to [facility] 11/26/17 after the following hospital course: 47-year-old -[place] male with reportedly no past medical or past surgical history who was admitted to hospitalist service 11/22/17 after presenting with abdominal pain, nausea, vomiting. He had CT abd/pelvis with massive gastric distention. NG tube had been placed. I was called to patient's bedside for CODE BLUE PEA arrest. CPR was ongoing and patient had massive abdominal distension and gastric regurgitant in the airway. He was emergently intubated and large amount of gastric secretions suctioned from oropharynx. After 21 minutes of CPR, ROSC was obtained and he was profoundly hypotensive. Continued aggressive fluid resuscitation and initiated dopamine. He was transferred to [facility] where CVL and R radial art line were placed and he was given 7 L of crystalloid and albumin. CXR demonstrated pneumoperitoneum and Dr. Martin Gudino was called emergently and he immediately contacted OR for emergent ex lap. He had intraabdominal hypertension with IAP of 40 mmHg, though fortunately was able to be ventilated adequately after rocuronium 50 mg IV and was transferred to OR. Dr. Martin Gudino took to the operating room early in the morning on 11/23 and discovered tension pneumoperitoneum, massive gastric distension, ischemia of the proximal 2/3 of the stomach and large gastric perforation with massive intraperitoneal contamination with food particles. Dr. Isaacs placed 2 NGT and decompressed 2 L of succus. Patient had initial improvement in vital signs in the immediate postoperative period, however he subsequently became hypotensive requiring upward titration of levophed and addition of vasopressin and stress dose hydrocortisone. He remains on levophed 10 mcg/min, neosynephrine 80 mcg/ min, vasopressin 0.04 units/min with overall vasopressor requirement weaning overnight. He is oliguric and creatinine is continuing to climb. He was given 2 L of crystalloid and albumin overnight. He does have significant fluid losses with combination of abdominal dressing and NGT output, so I will give an additional L of crystalloid now to monitor hourly response as he certainly does not appear volume overloaded. Nonetheless Flotrac numbers are suggesting adequate volume status and we may be seeing the consequence of ischemic ATN. May ultimately require HD, however not at this time. Abdomen remains open and plan is to re-explore 11/25. 11/25: Patient has acceptable hemodynamics by Flotrac but remains septic with requirements for phenylephrine 200 mics per minute, Levophed 8 mics per minute and vasopressin 0.04 units/min for blood pressure support. This has improved overnight and the Bhavesh-Synephrine support has been weaned off completely. Acid base balance is acceptable. ATN has developed which will undoubtedly require hemodialysis. Potassium level is normal. He is at increased risk for an anesthetic now but there is an urgent need to check for residual gastric necrosis. 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 Since the source control surgery, the maintenance of normal acid-base balance has been less difficult. Patient remains anuric with a rising creatinine above 6.0. He is clearly ahead on volume and will benefit from dialysis. A 2 lumen hemodialysis catheter was placed on 11/25 and has been packed with dilute heparin solution. The right internal jugular central line is been in place for 4 days and accessed multiple times. The femoral art line has been in for 4 days. Shock liver was apparent after the cardiac arrest reflecting a transaminitis, elevated bilirubin, and prolonged INR. The INR has remained normal following the transfusion of 4 units of fresh frozen plasma prior to surgery yesterday. A 10% dextrose infusion continues because of ongoing problems with hypoglycemia. Thrombocytopenia at 37,000 persists. He has remained on antibiotic coverage with Pipracil/tazobactam and fungal coverage with fluconazole, all adjusted for renal failure. Present vasopressor requirements include levophed at 7 mics per minute and vasopressin at 0.04 units/min. The chest x-ray is consistent with minor aspiration at the time of his preoperative cardiac arrest on the floor and cultures have subsequently grown Klebsiella, pansensitive. The operative note will clarify the extent of the surgery but in essence the distal esophagus is stapled off and marked with 2 Prolene sutures. The antrum of the stomach is oversewn. Most of the stomach has been removed. The abdomen is open with a VAC dressing applied. Subjective: 11/29: Bowel was in discontinuity following subtotal gastrectomy and patient was transferred to [facility]. On reexploration 11/28 he underwent Dinh-en-y esophagojejunostomy, feeding jejunostomy placement, diagnostic EGD, primary fascial closure. Wound vac was applied to abdomen (though currently wet to dry dressing in place upon arrival). He was reportedly found to have candidemia and was started on micafungin and has undergone ophtho eval. Lines including CVL, Vascath and art line have all been changed at [facility] (though not clear when). He remains on mechanical ventilation and has been weaned off pressors. He was found to have BUE DVTs and is on heparin drip. He is on TPN and has been started on trickle tube feeds with Nepro via jejunostomy. NGT is to [facility]. He underwent HD postoperatively on 11/28. He has now been [place] back [place] [facility] [place]. I have updated his father and stepmother. 11/30: Patient re-admitted s/p transfer from [facility] overnight, otherwise no acute issues. Scheduled to undergo HD today. 12/01: T-max 101.7, leukocytosis to 27,000 with bandemia. Now 3 days following Dinh-en-Y reconstruction of GI tract following sub-total gastrectomy for gastric necrosis. All new lines placed after diagnosis of candidemia. TPN infusing, jejunostomy at trickle flow and can be increased slowly per general surgery. Objective Vital Signs / I&O: Vital Signs 11/30/17 11:38 11/30/17 12:00 11/30/17 16:00 Temperature 98.5 F 98.4 F Pulse Rate 58 L 126 H Respiratory Rate 18 15 33 H Blood Pressure Pulse Oximetry 100 100 95 11/30/17 16:05 11/30/17 20:00 11/30/17 20:26 Temperature 98.9 F Pulse Rate 102 H Respiratory Rate 27 H 24 20 Blood Pressure 114/46 L Pulse Oximetry 99 100 100 12/01/17 00:00 12/01/17 01:05 12/01/17 04:00 Temperature 101.7 F H 99.9 F H Pulse Rate 92 H 98 H Respiratory Rate 20 17 14 Blood Pressure 141/64 H 124/54 L Pulse Oximetry 100 97 12/01/17 05:08 Temperature Pulse Rate Respiratory Rate 18 Blood Pressure Pulse Oximetry 100 Intake & Output 11/30/17 12/01/17 12/01/17 18:59 06:59 18:59 Intake Total 330 / 330 1415 / 1415 Output Total 6000 / 6000 455 / 455 Balance -5670 / -5670 960 / 960 Weight 96.3 kg Intake: IV 150 / 150 1300 / 1300 Precedex Inj 200 MCG In NS Inj 150 / 150 48 ML @ 0.2 MCG/KG/HR 4.68 mls/ hr IV.CONT TITRATE PRN Rx#: [id number] Heparin/D5W 25,000 U/250 mL 25, 250 / 250 000 unit In 250 ml @ Per Protocol IV.CONT TITRATE PRN Rx #:[id number] Diprivan 1000 mg/100 ml Inj 1, 300 / 300 000 mg In 100 ml @ 5 MCG/KG/MIN 2.859 mls/hr IV.CONT TITRATE PRN Rx#:[id number] Intralipid 20% Inj 250 ML @ 31. 250 / 250 25 mls/hr IV.SIG Q24H [facility] Rx#: [id number] Mycamine Inj 100 MG In NS Inj 100 / 100 100 ML @ 100 mls/hr IV.SIG Q24H [facility] Rx#:[id number] Zosyn 2.25 GM Premix 50 ML @ 150 / 150 100 mls/hr IV.SIG Q8H [facility] Rx#: [id number] fentaNYL 10 mcg/mL Premix Drip 250 / 250 2,500 mcg In 250 ml @ 50 MCG/HR 5 mls/hr IV.SIG TITRATE PRN Rx #:[id number] Tube Feeding 180 / 180 115 / 115 Tube Irrigant 0 / 0 Output: Hemodialysis Amount 6000 / 6000 Urine Amount (Catheter) 0 / 0 25 / 25 Indwelling Temp Sensing 0 / 0 25 / 25 Catheter Wound Drainage 430 / 430 # 1 Right Abdomen 150 / 150 # 2 Right Abdomen 280 / 280 Result Diagrams: 12/01/17 04:43 12/01/17 04:43 Objective Remarks: GEN: Chronically ill-appearing, no distress HEENT: NCAT, pupils 2 mm and reactive bilaterally NECK: RIJ vasc-cath and LIJ TLC present, clean/ dry/ intact CARDIO: Borderline bradycardic to high 50s, no murmur PULM: Mechanical breath sounds bilaterally ABD: Midline surgical bandages clean/ dry/ intact. ZAINAB #1 is anterior to esophagojejunostomy anastomosis, ZAINAB #2 posterior, both with serosanguineous drainage. Abdomen soft. EXT/MSK: Anasarca SKIN: No rashes or lesions NEURO: RASS -1 to -2, does not follow commands, moves 4 limbs aggressively spontaneously PSYCH: Unable to assess Assessment and Plan - Problem List (1) Gastric perforation Code(s): K25.5 - Chronic or unspecified gastric ulcer with perforation Status : Acute (2) Status post total gastrectomy and Dinh-en-Y esophagojejunal anastomosis Code(s): Z90.3 - Acquired absence of stomach [part of]; Z98.0 - Intestinal bypass and anastomosis status Status: Acute (3) Ischemic hepatitis Code(s): K75.9 - Inflammatory liver disease, unspecified Status: Acute (4) Gastric necrosis Code(s): K31.89 - Other diseases of stomach and duodenum Status: Acute (5) Thrombocytopenia Code(s): D69.6 - Thrombocytopenia, unspecified Status: Acute (6) Acute bilateral deep vein thrombosis (DVT) of upper extremities Code(s): I82.623 - Acute embolism and thrombosis of deep veins of upper extremity, bilateral Status: Acute (7) Anemia Code(s): D64.9 - Anemia, unspecified Status: Acute (8) Leukocytosis Code(s): D72.829 - Elevated white blood cell count, unspecified Status: Acute (9) Candidemia Code(s): B37.7 - Candidal sepsis Status: Acute (10) On total parenteral nutrition (TPN) Code(s): Z78.9 - Other specified health status Status: Acute (11) Hx of cardiac arrest Code(s): Z86.74 - Personal history of sudden cardiac arrest Status: Resolved (12) Acute hemodialysis patient Code(s): Z99.2 - Dependence on renal dialysis Status: Acute (13) JACLYN (acute kidney injury) Code(s): N17.9 - Acute kidney failure, unspecified Status: Acute (14) Aspiration pneumonia Code(s): J69.0 - Pneumonitis due to inhalation of food and vomit Status: Acute (15) Acute respiratory failure Code(s): J96.00 - Acute respiratory failure, unspecified whether with hypoxia or hypercapnia Status: Acute - Assessment and Plan Plan: NEURO: Currently on precedex @ 0.8, fentanyl @ 150 Pupils dilated bilaterally--> stepmother states dilated fundoscopic exam prior to transfer (fungemia) RESP: Acute respiratory failure PRVC, ventilator bundle Ventilator weaning as tolerated; if patient is unable to be extubated within the next 2-3 days, will need trach CXR shows lines and tubes in adequate position CV: Cardiac arrest 11/23/17 (PEA arrest due to shock secondary to acute gastric perf and tension pneumoperitoneum) Septic shock, resolved Now off pressors Hemodynamic monitoring with L radial art line GI: s/p gastric perforation with tension pneumoperitoneum status post ex lap with primary repair of anterior gastric perforation with stapler 11/23 On second look 11/25 he was found to have gastric necrosis requiring subtotal gastrectomy and placement of Abthera VAC dressing. The bowel was in discontinuity and he was transferred to [facility]. On 11/28 he underwent reexploration with Dinh-en-y esophagojejunostomy, feeding jejunostomy placement, diagnostic EGD, primary fascial closure Gastric necrosis Ischemic hepatopathy NGT to LIWS, do not manipulate NGT per general surgery orders from [facility]. Has feeding jejunostomy and tube feeds with Nepro 10 mL per hour had been started at [facility], continue for now with further management per general surgery. ZAINAB drains in place #1 anterior to anastomosis, #2 posterior to the anastomosis. Management per general surgery. Continue TPN renal formula 46 mL/hr. Intermittent lipids daily. General surgery recs appreciated Had right upper quadrant ultrasound on 11/27/17 that demonstrated contracted gallbladder with sludge. No evidence of cholecystitis. Echogenicity in right liver related to focal fatty change or altered perfusion. Color Doppler interrogation through the region demonstrates patent vascularity. FEN/RENAL: JACLYN secondary to ischemic ATN HD as started 11/26 at [place]. Had HD 3 hours on 11/28 at [facility] with 1700 mL UF; HD today Has Delgado in place currently. Has R IJ Vascath. Monitor I/O and electrolytes. Nephrology consult. Will check triglycerides and prealbumin with tomorrow's labs ID: Gastric perforation with large amount particulate peritoneal contamination 11/23 Acute Aspiration pneumonia Candidemia - reportedly blood cultures at OSH were positive. Will request records from microbiology. Patient had been on micafungin 100 mg IV daily (started at [facility]) with last administration at 10 AM on 11/29. Was previously on diflucan IV. On Zosyn 2.25 IV every 8 hours with last administration 11/29 at noon. Will continue zosyn/micafungin. Patient was evaluated by ophthalmology prior to transfer. I do not see an ophthalmology note in the transfer documentation. I have requested this document. Requested culture data from [facility]. Send blood culture x2 sets now. Sputum culture 11/24 with pansensitive Klebsiella pneumonia ID consult HEME: Thrombocytopenia Bilateral upper extremity DVTs U/s 11/26 BUE - thrombus R axillary, brachial and basilic veins and thrombus in left axillary and left brachial veins. U/s bilateral lower extremities 11/26 at [facility] negative from common femoral to popliteal vein levels. Arrived on heparin drip Hematology consult was obtained at [facility] and recommended heparin drip and transfuse prn for platelets <50k. Will use target PTT 40-65 now, no boluses. Monitor CBC ENDO: Monitor Glucose q4 hours and use low dose insulin sliding scale as indicated. PROPH: Heparin drip for DVT prophylaxis. Protonix 40 mg IV daily for stress ulcer prophylaxis. DVT prophylaxis. ACCESS: R IJ vascath , L IJ CVL, L radial art line. All existing lines were replaced at [facility]. FULL CODE Counseling/ Coordination of Care: Total critical care time: 40 minutes. This includes examining the patient, gathering history from someone other than the patient (i.e., chart review), discussing the patient's care with other providers, managing the patient's blood pressure and ventilator settings, ordering and interpreting radiology studies, ordering and interpreting laboratory studies, managing the patient's pain and sedation requirements, re-evaluation at frequent intervals, and documentation. (6) Acute bilateral deep vein thrombosis (DVT) of upper extremities Qualifiers: Affected thrombotic vein of extremity: brachial Qualified Code(s): I82.623 - Acute embolism and thrombosis of deep veins of upper extremity, bilateral (15) Acute respiratory failure Qualifiers: Respiratory failure complication: hypoxia Qualified Code(s): J96.01 - Acute respiratory failure with hypoxia
[2017-12-01] MEDS: Chlorhexidine 0.12% Oral Kit 15 ML UDC OROPHARYNG SCH ×2 (09:01→20:58)
[2017-12-01] MEDS: Pantoprazole Inj 40 MG Vial IV.PUSH SCH (09:01)
--- NOTE | 2017-12-01 12:29 | P.PNGS ---
Subjective Patient reports: no bowel movement (fevers overnight, anemic, intubated sedated) Physical Exam Vital signs: Vital Signs 11/30/17 16:00 11/30/17 16:05 11/30/17 20:00 Temperature 98.4 F 98.9 F Pulse Rate 126 H 102 H Respiratory Rate 33 H 27 H 24 Blood Pressure 114/46 L Pulse Oximetry 95 99 100 11/30/17 20:26 12/01/17 00:00 12/01/17 01:05 Temperature 101.7 F H Pulse Rate 92 H Respiratory Rate 20 20 17 Blood Pressure 141/64 H Pulse Oximetry 100 100 97 12/01/17 04:00 12/01/17 05:08 12/01/17 08:00 Temperature 99.9 F H 98.7 F Pulse Rate 98 H 73 Respiratory Rate 14 18 16 Blood Pressure 124/54 L Pulse Oximetry 100 12/01/17 08:49 12/01/17 10:20 12/01/17 10:23 Temperature 98.6 F Pulse Rate 73 Respiratory Rate 25 H Blood Pressure Pulse Oximetry 100 100 100 12/01/17 12:11 Temperature Pulse Rate Respiratory Rate 19 Blood Pressure Pulse Oximetry 100 Intake & Output 11/30/17 12/01/17 12/01/17 18:59 06:59 18:59 Intake Total 330 / 330 1415 / 1415 100 / 100 Output Total 6000 / 6000 455 / 455 Balance -5670 / -5670 960 / 960 100 / 100 Weight 96.3 kg Intake: IV 150 / 150 1300 / 1300 100 / 100 Precedex Inj 200 MCG In NS Inj 150 / 150 48 ML @ 0.2 MCG/KG/HR 4.68 mls/ hr IV.CONT TITRATE PRN Rx#: [id number] Heparin/D5W 25,000 U/250 mL 25, 250 / 250 000 unit In 250 ml @ Per Protocol IV.CONT TITRATE PRN Rx #:[id number] Diprivan 1000 mg/100 ml Inj 1, 300 / 300 100 / 100 000 mg In 100 ml @ 5 MCG/KG/MIN 2.859 mls/hr IV.CONT TITRATE PRN Rx#:[id number] Intralipid 20% Inj 250 ML @ 31. 250 / 250 25 mls/hr IV.SIG Q24H [facility] Rx#: [id number] Mycamine Inj 100 MG In NS Inj 100 / 100 100 ML @ 100 mls/hr IV.SIG Q24H [facility] Rx#:[id number] Zosyn 2.25 GM Premix 50 ML @ 150 / 150 100 mls/hr IV.SIG Q8H [facility] Rx#: [id number] fentaNYL 10 mcg/mL Premix Drip 250 / 250 2,500 mcg In 250 ml @ 50 MCG/HR 5 mls/hr IV.SIG TITRATE PRN Rx #:[id number] Tube Feeding 180 / 180 115 / 115 Tube Irrigant 0 / 0 Intake (Blood Product) Amt 0 / 0 Rbc As-3 Leukoreduced Unit 0 / 0 [id number] Output: Hemodialysis Amount 6000 / 6000 Urine Amount (Catheter) 0 / 0 25 / 25 Indwelling Temp Sensing 0 / 0 25 / 25 Catheter Wound Drainage 430 / 430 # 1 Right Abdomen 150 / 150 # 2 Right Abdomen 280 / 280 - Routine Abdominal Exam Present: soft (incision with dressing dry draiange, adam serosang) - Urinary Catheter Management Indwelling Temp Sensing Catheter Cath placed during this visit: no Results - Labs 12/01/17 04:43 12/01/17 04:43 Laboratory Results - last 24 hr 11/30/17 11/30/17 11/30/17 16:33 18:00 20:34 WBC RBC Hgb Hct MCV MCH MCHC RDW Plt Count MPV Prelim Diff (Auto) Neut % (Auto) Lymph % (Auto) [place] % (Auto) Eos % (Auto) Baso % (Auto) Neut # (Auto) Lymph # (Auto) [place] # (Auto) Eos # (Auto) Baso # (Auto) WBC Differential Seg Neuts % (Manual) Band Neuts % (Manual) Lymphocytes % (Manual) Monocytes % (Manual) Metamyelocytes % (Man) Abs Neuts (Manual) Differential Comment Toxic Granulation Platelet Estimate Platelet Morphology Ovalocytes APTT 50.9 H D Sodium Potassium Chloride Carbon Dioxide Anion Gap BUN Creatinine Estimated GFR POC Glucose 133 H 160 H Random Glucose Calcium Prot Corrected Calcium Phosphorus Magnesium Total Bilirubin AST ALT Alkaline Phosphatase Total Protein Albumin Prealbumin Triglycerides Blood Type Antibody Screen MTS Gel Crossmatch 12/01/17 12/01/17 12/01/17 01:04 02:01 04:43 WBC RBC Hgb Hct MCV MCH MCHC RDW Plt Count MPV Prelim Diff (Auto) Neut % (Auto) Lymph % (Auto) [place] % (Auto) Eos % (Auto) Baso % (Auto) Neut # (Auto) Lymph # (Auto) [place] # (Auto) Eos # (Auto) Baso # (Auto) WBC Differential Seg Neuts % (Manual) Band Neuts % (Manual) Lymphocytes % (Manual) Monocytes % (Manual) Metamyelocytes % (Man) Abs Neuts (Manual) Differential Comment Toxic Granulation Platelet Estimate Platelet Morphology Ovalocytes APTT 50.2 H Sodium 142 Potassium 3.5 Chloride 104 Carbon Dioxide 25.1 Anion Gap 13 BUN 71 H Creatinine 6.99 H Estimated GFR 10 L POC Glucose 141 H Random Glucose 143 H Calcium 7.3 L* Prot Corrected Calcium 8.6 Phosphorus 2.6 D Magnesium 2.5 Total Bilirubin 3.9 H AST 165 H ALT 290 H Alkaline Phosphatase 63 Total Protein 4.8 L Albumin 1.7 L Prealbumin 14 L Triglycerides 427 H Blood Type Antibody Screen MTS Gel Crossmatch 12/01/17 12/01/17 12/01/17 04:43 06:08 08:41 WBC 27.5 H RBC 2.32 L Hgb 7.3 L Hct 20.9 L* MCV 90.4 MCH 31.4 MCHC 34.7 RDW 14.8 Plt Count 72 L MPV 12.6 H Prelim Diff (Auto) Slide review pending Neut % (Auto) 87.0 H Lymph % (Auto) 6.8 L [place] % (Auto) 4.9 Eos % (Auto) 1.2 Baso % (Auto) 0.1 Neut # (Auto) 24.0 H Lymph # (Auto) 1.9 [place] # (Auto) 1.3 H Eos # (Auto) 0.3 Baso # (Auto) 0.0 WBC Differential Manual diff final Seg Neuts % (Manual) 76 H Band Neuts % (Manual) 11 H Lymphocytes % (Manual) 8 L Monocytes % (Manual) 4 Metamyelocytes % (Man) 1 Abs Neuts (Manual) 24.2 H Differential Comment . Toxic Granulation 1+ H Platelet Estimate Low L Platelet Morphology Enlarged H Ovalocytes 1+ H APTT Sodium Potassium Chloride Carbon Dioxide Anion Gap BUN Creatinine Estimated GFR POC Glucose 128 H Random Glucose Calcium Prot Corrected Calcium Phosphorus Magnesium Total Bilirubin AST ALT Alkaline Phosphatase Total Protein Albumin Prealbumin Triglycerides Blood Type A Positive Antibody Screen Negative MTS Gel Crossmatch 12/01/17 12/01/17 08:43 08:45 WBC RBC Hgb Hct MCV MCH MCHC RDW Plt Count MPV Prelim Diff (Auto) Neut % (Auto) Lymph % (Auto) [place] % (Auto) Eos % (Auto) Baso % (Auto) Neut # (Auto) Lymph # (Auto) [place] # (Auto) Eos # (Auto) Baso # (Auto) WBC Differential Seg Neuts % (Manual) Band Neuts % (Manual) Lymphocytes % (Manual) Monocytes % (Manual) Metamyelocytes % (Man) Abs Neuts (Manual) Differential Comment Toxic Granulation Platelet Estimate Platelet Morphology Ovalocytes APTT 56.5 H Sodium Potassium Chloride Carbon Dioxide Anion Gap BUN Creatinine Estimated GFR POC Glucose Random Glucose Calcium Prot Corrected Calcium Phosphorus Magnesium Total Bilirubin AST ALT Alkaline Phosphatase Total Protein Albumin Prealbumin Triglycerides Blood Type Antibody Screen MTS Gel Crossmatch See Detail - Imaging Imaging: ITS Impressions Chest X-Ray 11/29/17 19:18 CONCLUSION: NG tip near GE junction. Basilar airspace disease and pleural effusions similar to prior exam. Assessment and Plan - Plan s/p Ex lap rny e-j POD 3 Transferred back from [facility] PLAN TF at [address], keep same rate overnight, tpn ADAM sxn transfuse 2U appreciate ID recs for candidemia vent mgnt per ISC
--- NOTE | 2017-12-01 12:57 | P.PNNP ---
Subjective Interval history: On ventilator with sedation. Seen during hemodialysis will remove fluid as tolerated. <StefaniemarinaPrincess rivera - Last Filed: 12/01/17 12:48> Physical Exam Vital signs: Vital Signs 11/30/17 16:00 11/30/17 16:05 11/30/17 20:00 Temperature 98.4 F 98.9 F Pulse Rate 126 H 102 H Respiratory Rate 33 H 27 H 24 Blood Pressure 114/46 L Pulse Oximetry 95 99 100 11/30/17 20:26 12/01/17 00:00 12/01/17 01:05 Temperature 101.7 F H Pulse Rate 92 H Respiratory Rate 20 20 17 Blood Pressure 141/64 H Pulse Oximetry 100 100 97 12/01/17 04:00 12/01/17 05:08 12/01/17 08:00 Temperature 99.9 F H 98.7 F Pulse Rate 98 H 73 Respiratory Rate 14 18 16 Blood Pressure 124/54 L Pulse Oximetry 100 100 12/01/17 08:49 12/01/17 10:00 12/01/17 10:20 Temperature Pulse Rate 73 Respiratory Rate Blood Pressure Pulse Oximetry 100 100 12/01/17 10:23 12/01/17 12:00 12/01/17 12:11 Temperature 98.6 F 98 F Pulse Rate 73 71 Respiratory Rate 25 H 24 19 Blood Pressure Pulse Oximetry 100 100 100 12/01/17 12:36 Temperature 98 F Pulse Rate 57 L Respiratory Rate 19 Blood Pressure Pulse Oximetry Intake & Output 11/30/17 12/01/17 12/01/17 18:59 06:59 18:59 Intake Total 330 / 330 1415 / 1415 650 / 650 Output Total 6000 / 6000 455 / 455 Balance -5670 / -5670 960 / 960 650 / 650 Weight 96.3 kg Intake: IV 150 / 150 1300 / 1300 100 / 100 Precedex Inj 200 MCG In NS Inj 150 / 150 48 ML @ 0.2 MCG/KG/HR 4.68 mls/ hr IV.CONT TITRATE PRN Rx#: [id number] Heparin/D5W 25,000 U/250 mL 25, 250 / 250 000 unit In 250 ml @ Per Protocol IV.CONT TITRATE PRN Rx #:[id number] Diprivan 1000 mg/100 ml Inj 1, 300 / 300 100 / 100 000 mg In 100 ml @ 5 MCG/KG/MIN 2.859 mls/hr IV.CONT TITRATE PRN Rx#:[id number] Intralipid 20% Inj 250 ML @ 31. 250 / 250 25 mls/hr IV.SIG Q24H [facility] Rx#: [id number] Mycamine Inj 100 MG In NS Inj 100 / 100 100 ML @ 100 mls/hr IV.SIG Q24H [facility] Rx#:[id number] Zosyn 2.25 GM Premix 50 ML @ 150 / 150 100 mls/hr IV.SIG Q8H [facility] Rx#: [id number] fentaNYL 10 mcg/mL Premix Drip 250 / 250 2,500 mcg In 250 ml @ 50 MCG/HR 5 mls/hr IV.SIG TITRATE PRN Rx #:[id number] Tube Feeding 180 / 180 115 / 115 Tube Irrigant 0 / 0 Other 150 / 150 Rbc As-3 Leukoreduced Unit 150 / 150 [id number] Intake (Blood Product) Amt 400 / 400 Rbc As-3 Leukoreduced Unit 0 / 0 [id number] Rbc As-3 Leukoreduced Unit 400 / 400 [id number] Output: Hemodialysis Amount 6000 / 6000 Urine Amount (Catheter) 0 / 0 25 / 25 Indwelling Temp Sensing 0 / 0 25 / 25 Catheter Wound Drainage 430 / 430 # 1 Right Abdomen 150 / 150 # 2 Right Abdomen 280 / 280 Other: Other Intake Source Rbc As-3 Leukoreduced Unit Saline Solution [id number] Narrative: GENERAL: Intubated on sedation. SKIN: Warm and dry. Abdominal dressing in place NECK: Supple, trachea midline. JVD distention CARDIOVASCULAR: Regular rate and rhythm without murmurs, gallops, or rubs. RESPIRATORY: Breath sounds diminished bilaterally. No accessory muscle use. GASTROINTESTINAL: Abdomen distended. Drains in place, dressing on. GENITOURINARY: Indwelling Delgado catheter MUSCULOSKELETAL: No cyanosis, generalized edema - Urinary Catheter Management Indwelling Temp Sensing Catheter Cath placed during this visit: no <Princess Martel - Last Filed: 12/01/17 12:48> Vital signs: Vital Signs 11/30/17 20:00 11/30/17 20:26 12/01/17 00:00 Temperature 98.9 F 101.7 F H Pulse Rate 102 H 92 H Respiratory Rate 24 20 20 Blood Pressure 114/46 L 141/64 H Pulse Oximetry 100 100 100 12/01/17 01:05 12/01/17 04:00 12/01/17 05:08 Temperature 99.9 F H Pulse Rate 98 H Respiratory Rate 17 14 18 Blood Pressure 124/54 L Pulse Oximetry 97 100 12/01/17 08:00 12/01/17 08:49 12/01/17 10:00 Temperature 98.7 F Pulse Rate 73 73 Respiratory Rate 16 Blood Pressure Pulse Oximetry 100 100 12/01/17 10:20 12/01/17 10:23 12/01/17 12:00 Temperature 98.6 F 98 F Pulse Rate 73 71 Respiratory Rate 25 H 24 Blood Pressure Pulse Oximetry 100 100 100 12/01/17 12:11 12/01/17 12:36 12/01/17 14:00 Temperature 98 F Pulse Rate 57 L 62 Respiratory Rate 19 19 Blood Pressure Pulse Oximetry 100 12/01/17 16:00 12/01/17 16:45 12/01/17 18:00 Temperature 98.5 F Pulse Rate 78 70 Respiratory Rate 16 17 Blood Pressure Pulse Oximetry 100 100 Intake & Output 12/01/17 12/01/17 12/02/17 06:59 18:59 06:59 Intake Total 1415 / 1415 1665 / 1665 Output Total 455 / 455 5120 / 5120 Balance 960 / 960 -3455 / -3455 Weight 96.3 kg Intake: IV 1300 / 1300 600 / 600 Heparin/D5W 25,000 U/250 mL 25, 250 / 250 000 unit In 250 ml @ Per Protocol IV.CONT TITRATE PRN Rx #:[id number] Diprivan 1000 mg/100 ml Inj 1, 300 / 300 200 / 200 000 mg In 100 ml @ 5 MCG/KG/MIN 2.859 mls/hr IV.CONT TITRATE PRN Rx#:[id number] Intralipid 20% Inj 250 ML @ 31. 250 / 250 25 mls/hr IV.SIG Q24H [facility] Rx#: [id number] Mycamine Inj 100 MG In NS Inj 100 / 100 100 / 100 100 ML @ 100 mls/hr IV.SIG Q24H [facility] Rx#:[id number] Zosyn 2.25 GM Premix 50 ML @ 150 / 150 50 / 50 100 mls/hr IV.SIG Q8H [facility] Rx#: [id number] fentaNYL 10 mcg/mL Premix Drip 250 / 250 250 / 250 2,500 mcg In 250 ml @ 50 MCG/HR 5 mls/hr IV.SIG TITRATE PRN Rx #:[id number] Tube Feeding 115 / 115 115 / 115 Other 150 / 150 Rbc As-3 Leukoreduced Unit 0 / 0 [id number] Rbc As-3 Leukoreduced Unit 150 / 150 [id number] Intake (Blood Product) Amt 800 / 800 Rbc As-3 Leukoreduced Unit 400 / 400 [id number] Rbc As-3 Leukoreduced Unit 400 / 400 [id number] Output: Hemodialysis Amount 5000 / 5000 Urine Amount (Catheter) 25 / 25 20 / 20 Indwelling Temp Sensing 25 / 25 20 / 20 Catheter Gastric Drainage 0 / 0 Right Nare Nasogastric Tube 0 / 0 Wound Drainage 430 / 430 100 / 100 # 1 Right Abdomen 150 / 150 60 / 60 # 2 Right Abdomen 280 / 280 40 / 40 Other: Other Intake Source Rbc As-3 Leukoreduced Unit Saline Solution [id number] # Bowel Movements 0 - Urinary Catheter Management Indwelling Temp Sensing Catheter Cath placed during this visit: no <Jolie Connor - Last Filed: 12/01/17 19:13> Assessment and Plan - Assessment (1) JACLYN (acute kidney injury) Code(s): N17.9 - Acute kidney failure, unspecified Status: Acute Plan: patient likely has developed ATN. Hemodialysis yesterday with removal of 6 liters of fluid Creatinine at 6.99, anuric Seen during hemodialysis tolerating well. Will remove fluid as tolerated (2) Acute respiratory failure Code(s): J96.00 - Acute respiratory failure, unspecified whether with hypoxia or hypercapnia Status: Acute Qualifiers: Respiratory failure complication: hypoxia Qualified Code(s): J96.01 - Acute respiratory failure with hypoxia Plan: Vent support. (3) Gastric perforation Code(s): K25.5 - Chronic or unspecified gastric ulcer with perforation Status : Acute Plan: s/p surgery. Subtotal gastrectomy here. In s he had: Dinh-en-y esophagojejunostomy, feeding jejunostomy placement, diagnostic EGD, primary fascial closure. Date of procedure: 11/28/17 (4) Candidemia Code(s): B37.7 - Candidal sepsis Status: Acute Plan: On Micafungin. Patient is also on Zosyn. Dose medications appropriate to renal function. (5) DVT (deep venous thrombosis) Code(s): I82.409 - Acute embolism and thrombosis of unspecified deep veins of unspecified lower extremity Status: Acute Plan: On heparin drip. DVT of bilateral upper extremities. <Princess Martel - Last Filed: 12/01/17 12:48> - Assessment (1) JACLYN (acute kidney injury) Code(s): N17.9 - Acute kidney failure, unspecified Status: Acute Plan: Patient seen and examine, agree with above. HD done yesterday, watch for renal recovery. (2) Acute respiratory failure Code(s): J96.00 - Acute respiratory failure, unspecified whether with hypoxia or hypercapnia Status: Acute Qualifiers: Respiratory failure complication: hypoxia Qualified Code(s): J96.01 - Acute respiratory failure with hypoxia (3) Gastric perforation Code(s): K25.5 - Chronic or unspecified gastric ulcer with perforation Status : Acute (4) Candidemia Code(s): B37.7 - Candidal sepsis Status: Acute (5) DVT (deep venous thrombosis) Code(s): I82.409 - Acute embolism and thrombosis of unspecified deep veins of unspecified lower extremity Status: Acute <Jolie Connor - Last Filed: 12/01/17 19:13>
[2017-12-01] MEDS: Heparin 10,000 UNITS/10 ML Vial (for IV use) OTHER PRN (13:53)
--- NOTE | 2017-12-01 14:01 | MB ---
cc: Ben Millan MD DATE: 12/01/2017 REQUESTING PHYSICIAN: Dr. Victoria. REASON FOR VISIT: Candidemia after gastric perforation. HISTORY OF PRESENT ILLNESS: This is a 46-year-old black male who initially was admitted to the hospital on 11/22/2017. The patient was found to have no pneumoperitoneum on 11/23/2017. He presented with severe abdominal pain. He was also noted to have ischemia of the proximal two-thirds of the stomach and there was a large gastric perforation and contamination of food particles into the peritoneum. The patient ended up being transferred to [facility] in [place] and he underwent subtotal gastrectomy and Dinh-en-Y esophageal jejunostomy and a feeding jejunostomy tube placement. He was put on antifungal medication for candidemia. The results of the cultures are not available to me at this time. The culture reportedly was from [facility] in [place]. He was transferred back to [facility] on 11/29/2017 from [facility]. The reason for this consultation is for candidemia. During the hospitalization, the patient was also noted to have code blue PEA arrest and he underwent CPR. He is currently sedated and on the ventilator. His blood pressure is stable. He had a temperature of 101.7 degrees earlier today. His white blood cell count is also elevated at 27.5. He is currently on micafungin along with Piperacillin. Blood culture taken from yesterday has no growth in 1 day. There was a sputum culture from 11/26/2017 which had Klebsiella pneumoniae. The is the ZAINAB tube exiting the abdomen, has serosanguineous drainage. He said it is mostly sanguineous. The patient has the midline abdominal incision, which appears to be intact, but has slight bloody seepage at the lower aspect. He was also noted to have bilateral DVT of the upper extremities and he is on hemodialysis for kidney failure. PAST MEDICAL HISTORY: Reportedly, the patient has no prior medical problems. ALLERGIES: NO KNOWN DRUG ALLERGIES. MEDICATIONS: Piperacillin, Sustiva, Bactrim, Micafungin, insulin, Protonix, Diprivan. SOCIAL HISTORY: No tobacco use. No alcohol use. No illicit drugs. FAMILY HISTORY: Noncontributory. REVIEW OF SYSTEMS: Unable to obtain. The patient is on the ventilator. PHYSICAL EXAMINATION: GENERAL: This is a slender male who is unresponsive on the ventilator. He is sedated. VITAL SIGNS: Temperature 98.6, BP 162/65, on ventilator, heart rate 73. HEENT: Head is atraumatic. Extraocular movements cannot be assessed. Oropharynx intubated. NECK: Supple without adenopathy or swelling. LUNGS: Clear, decreased breath sounds. HEART: Regular S1, S2. ABDOMEN: Midline abdominal incision intact. ZAINAB tubes x 2 exits the right abdomen and has serosanguineous drainage. RECTAL: Not performed. EXTREMITIES: No clubbing or cyanosis. Swelling of the upper extremities. SKIN: No diffuse rash. PSYCHIATRIC: Unable to assess. NEUROLOGIC: Unable to assess. LABORATORY DATA: WBC 27.5, platelets 72, hemoglobin 7.3, 11% bands, 76% neutrophils, creatinine 6.99, BUN 71, estimated GFR 10. Sodium 142, AST 165, ALT 290, alkaline phosphatase 63. IMPRESSION: 1. Candidemia following gastric perforation and gastric ischemia. 2. The patient is status post abdominal surgery. 3. Acute respiratory failure. 4. Acute kidney disease. 5. History of cardiac arrest. 6. Leukocytosis. RECOMMENDATIONS: 1. Continue micafungin for candidemia. 2. Monitor new blood cultures, which were performed yesterday. 3. Monitor white blood cell count. 4. Continue piperacillin/tazobactam. 5. Monitor the temperature. 6. Monitor clinical response to antibiotics. Thank you for this consultation. I will follow the patient's progress along with you. MD SEBASTIAN Alves/peter , 12:06 PM , 12:20 PM JENNY
[2017-12-01 20:58] LABS: Calcium 7.6 mg/dL (8.5-10.1); Carbon Dioxide 28.9 meq/L (21.0-32.0); Magnesium 2.3 mg/dL (1.5-2.5); Potassium 3.5 meq/L (3.5-5.1)
[2017-12-01 22:41] LABS: VBG Base Excess 3.5 mmol/L (-2-2); VBG Blood Gas Oxygen Content 9.2 Vol % (9.0-17.0); VBG PCO2 45 mmHG (44-48); VBG PH 7.41 (7.360-7.400); VBG PO2 37 mmHG (35-40)
--- NOTE | 2017-12-01 22:55 | ECG ---
Date Performed: 12/01/2017 Time Performed: 19:23:02 PTAGE: 47 years EKG: Sinus rhythm with PAC(s). Borderline ECG DOCTOR: Dipak Cameron Interpretating Date/Time 12/01/2017 22:54:33
[2017-12-01] MEDS ORDERED: Sodium Chlor 0.9% Inj 250 ML IV.SIG SCH (23:00)
[2017-12-02] MEDS: Insulin NovoLOG Aspart Correctional Sugar Inj SQ SCH ×7 (00:02→20:54)
[2017-12-02 00:20] LABS: Hematocrit 26.2 % (39.0-51.0); Hemoglobin 9.4 gm/dL (13.0-17.0); Mean Corpuscular HGB Conc 35.7 % (32.0-36.0); Mean Corpuscular Hemoglobin 31.5 pg (27.0-34.0); Mean Corpuscular Volume 88.3 fL (80.0-100.0); Mean Platelet Volume 12.8 fL (7.0-11.0); Platelet Count 79 th/mm3 (150-450); Red Blood Count 2.97 mil/mm3 (4.50-5.90); Red Cell Distribution Width 14.5 % (11.6-17.2)
[2017-12-02] MEDS: Propofol 1000 mg/100 ml Inj 1,000 MG/100 ML BOTTLE IV.CONT PRN ×3 (00:40→07:00)
[2017-12-02] MEDS: hydrALAZINE HCl Inj 20 MG/ML Vial IV.PUSH PRN ×2 (01:15→10:14)
[2017-12-02] MEDS: Labetalol HCl Inj 100 MG/20 ML Vial IV.PUSH PRN ×4 (01:41→20:36)
[2017-12-02] MEDS: Oral Hygiene Kit OROPHARYNG SCH ×4 (01:42→15:57)
[2017-12-02 04:46] LABS: Baso # (Auto) 0.1 th/mm3 (0.0-0.2); Baso % (Auto) 0.4 % (0.0-2.0); Eos # (Auto) 0.3 th/mm3 (0.0-0.4); Hematocrit 27.2 % (39.0-51.0); Hemoglobin 9.4 gm/dL (13.0-17.0); Lymph # (Auto) 1.9 th/mm3 (1.0-4.8); Lymph % (Auto) 7.3 % (9.0-44.0); Mean Corpuscular HGB Conc 34.8 % (32.0-36.0); Mean Corpuscular Hemoglobin 30.8 pg (27.0-34.0); Mean Corpuscular Volume 88.5 fL (80.0-100.0); Mono % (Auto) 3.7 % (0.0-8.0); Neut # (Auto) 23.1 th/mm3 (1.8-7.7); Neut % (Auto) 87.6 % (16.0-70.0); Platelet Count 85 th/mm3 (150-450); Red Blood Count 3.07 mil/mm3 (4.50-5.90); Red Cell Distribution Width 14.8 % (11.6-17.2); White Blood Count 26.4 th/mm3 (4.0-11.0)
[2017-12-02 05:15] LABS: Lymphocytes 3 % (9-44); Metamyelocytes 3 % (0-1); Monocytes 1 % (0-8); Myelocytes 3 % (0-0)
[2017-12-02 05:25] LABS: Albumin 1.5 g/dL (3.4-5.0); Calcium 7.2 mg/dL (8.5-10.1); Carbon Dioxide 25.9 meq/L (21.0-32.0); Magnesium 2.3 mg/dL (1.5-2.5); Phosphorus 2.7 mg/dL (2.5-4.9); Potassium 3.6 meq/L (3.5-5.1); Total Protein 5.1 g/dL (6.4-8.2)
[2017-12-02] MEDS: Chlorhexidine Gluconate 2% 1 Pack (2 Cloths) TOPICAL SCH (05:29)
[2017-12-02] MEDS: Piperacil/Tazo 2.25 GM Premix 50 ML IV.SIG SCH ×3 (05:38→21:27)
[2017-12-02] MEDS: Pantoprazole Inj 40 MG Vial IV.PUSH SCH (08:24)
[2017-12-02] MEDS: Chlorhexidine 0.12% Oral Kit 15 ML UDC OROPHARYNG SCH ×2 (08:25→20:16)
[2017-12-02] MEDS: fentaNYL 10 mcg/mL Premix Drip 2,500 MCG/250 ML BAG IV.SIG PRN (08:26)
--- NOTE | 2017-12-02 10:47 | P.PNCC ---
Subjective Subjective Remarks/Hospital Course: [place] [facility] [place] to [facility] 11/26/17 after the following hospital course: 47-year-old -[place] male with reportedly no past medical or past surgical history who was admitted to hospitalist service 11/22/17 after presenting with abdominal pain, nausea, vomiting. He had CT abd/pelvis with massive gastric distention. NG tube had been placed. I was called to patient's bedside for CODE BLUE PEA arrest. CPR was ongoing and patient had massive abdominal distension and gastric regurgitant in the airway. He was emergently intubated and large amount of gastric secretions suctioned from oropharynx. After 21 minutes of CPR, ROSC was obtained and he was profoundly hypotensive. Continued aggressive fluid resuscitation and initiated dopamine. He was transferred to [facility] where CVL and R radial art line were placed and he was given 7 L of crystalloid and albumin. CXR demonstrated pneumoperitoneum and Dr. Martin Gudino was called emergently and he immediately contacted OR for emergent ex lap. He had intraabdominal hypertension with IAP of 40 mmHg, though fortunately was able to be ventilated adequately after rocuronium 50 mg IV and was transferred to OR. Dr. Martin Gudino took to the operating room early in the morning on 11/23 and discovered tension pneumoperitoneum, massive gastric distension, ischemia of the proximal 2/3 of the stomach and large gastric perforation with massive intraperitoneal contamination with food particles. Dr. Isaacs placed 2 NGT and decompressed 2 L of succus. Patient had initial improvement in vital signs in the immediate postoperative period, however he subsequently became hypotensive requiring upward titration of levophed and addition of vasopressin and stress dose hydrocortisone. He remains on levophed 10 mcg/min, neosynephrine 80 mcg/ min, vasopressin 0.04 units/min with overall vasopressor requirement weaning overnight. He is oliguric and creatinine is continuing to climb. He was given 2 L of crystalloid and albumin overnight. He does have significant fluid losses with combination of abdominal dressing and NGT output, so I will give an additional L of crystalloid now to monitor hourly response as he certainly does not appear volume overloaded. Nonetheless Flotrac numbers are suggesting adequate volume status and we may be seeing the consequence of ischemic ATN. May ultimately require HD, however not at this time. Abdomen remains open and plan is to re-explore 11/25. 11/25: Patient has acceptable hemodynamics by Flotrac but remains septic with requirements for phenylephrine 200 mics per minute, Levophed 8 mics per minute and vasopressin 0.04 units/min for blood pressure support. This has improved overnight and the Bhavesh-Synephrine support has been weaned off completely. Acid base balance is acceptable. ATN has developed which will undoubtedly require hemodialysis. Potassium level is normal. He is at increased risk for an anesthetic now but there is an urgent need to check for residual gastric necrosis. 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 Since the source control surgery, the maintenance of normal acid-base balance has been less difficult. Patient remains anuric with a rising creatinine above 6.0. He is clearly ahead on volume and will benefit from dialysis. A 2 lumen hemodialysis catheter was placed on 11/25 and has been packed with dilute heparin solution. The right internal jugular central line is been in place for 4 days and accessed multiple times. The femoral art line has been in for 4 days. Shock liver was apparent after the cardiac arrest reflecting a transaminitis, elevated bilirubin, and prolonged INR. The INR has remained normal following the transfusion of 4 units of fresh frozen plasma prior to surgery yesterday. A 10% dextrose infusion continues because of ongoing problems with hypoglycemia. Thrombocytopenia at 37,000 persists. He has remained on antibiotic coverage with Pipracil/tazobactam and fungal coverage with fluconazole, all adjusted for renal failure. Present vasopressor requirements include levophed at 7 mics per minute and vasopressin at 0.04 units/min. The chest x-ray is consistent with minor aspiration at the time of his preoperative cardiac arrest on the floor and cultures have subsequently grown Klebsiella, pansensitive. The operative note will clarify the extent of the surgery but in essence the distal esophagus is stapled off and marked with 2 Prolene sutures. The antrum of the stomach is oversewn. Most of the stomach has been removed. The abdomen is open with a VAC dressing applied. Subjective: 11/29: Bowel was in discontinuity following subtotal gastrectomy and patient was transferred to [facility]. On reexploration 11/28 he underwent Dinh-en-y esophagojejunostomy, feeding jejunostomy placement, diagnostic EGD, primary fascial closure. Wound vac was applied to abdomen (though currently wet to dry dressing in place upon arrival). He was reportedly found to have candidemia and was started on micafungin and has undergone ophtho eval. Lines including CVL, Vascath and art line have all been changed at [facility] (though not clear when). He remains on mechanical ventilation and has been weaned off pressors. He was found to have BUE DVTs and is on heparin drip. He is on TPN and has been started on trickle tube feeds with Nepro via jejunostomy. NGT is to [facility]. He underwent HD postoperatively on 11/28. He has now been [place] back [place] [facility] [place]. I have updated his father and stepmother. 11/30: Patient re-admitted s/p transfer from [facility] overnight, otherwise no acute issues. Scheduled to undergo HD today. 12/01: T-max 101.7, leukocytosis to 27,000 with bandemia. Now 3 days following Dinh-en-Y reconstruction of GI tract following sub-total gastrectomy for gastric necrosis. All new lines placed after diagnosis of candidemia. TPN infusing, jejunostomy at trickle flow and can be increased slowly per general surgery. 12/02: Marked leukocytosis with bandemia persists. Afebrile over last 24 hours. Leave NG tube across the esophageal anastomosis and surgical service will direct timing of contrast study about 7 days following surgery. Continue with spontaneous breathing trials. Objective Vital Signs / I&O: Vital Signs 12/01/17 12:00 12/01/17 12:11 12/01/17 12:36 Temperature 98 F 98 F Pulse Rate 71 57 L Respiratory Rate 24 19 19 Blood Pressure Pulse Oximetry 100 100 12/01/17 14:00 12/01/17 16:00 12/01/17 16:45 Temperature 98.5 F Pulse Rate 62 78 Respiratory Rate 16 17 Blood Pressure Pulse Oximetry 100 100 12/01/17 18:00 12/01/17 20:00 12/01/17 20:30 Temperature 98.8 F Pulse Rate 70 92 H Respiratory Rate 22 Blood Pressure 170/83 H 156/54 H Pulse Oximetry 100 12/01/17 21:11 12/02/17 00:00 12/02/17 04:00 Temperature 98.7 F 98.9 F Pulse Rate 56 L 74 Respiratory Rate 17 16 16 Blood Pressure 149/69 H 156/93 H Pulse Oximetry 100 100 100 12/02/17 08:00 12/02/17 09:47 12/02/17 10:10 Temperature 98.7 F Pulse Rate 104 H 109 H Respiratory Rate 17 20 28 H Blood Pressure Pulse Oximetry 100 97 Intake & Output 12/01/17 12/02/17 12/02/17 18:59 06:59 18:59 Intake Total 1665 / 1665 2504.7969 / 2504.7969 250 / 250 Output Total 5120 / 5120 170 / 170 Balance -3455 / -3455 2334.7969 / 2334.7969 250 / 250 Weight 93.4 kg Intake: IV 600 / 600 2384.7969 / 2384.7969 250 / 250 Heparin/D5W 25,000 U/250 mL 25, 250 / 250 000 unit In 250 ml @ Per Protocol IV.CONT TITRATE PRN Rx #:[id number] Diprivan 1000 mg/100 ml Inj 1, 200 / 200 500 / 500 000 mg In 100 ml @ 5 MCG/KG/MIN 2.859 mls/hr IV.CONT TITRATE PRN Rx#:[id number] Intralipid 20% Inj 250 ML @ 31. 250 / 250 25 mls/hr IV.SIG Q24H COLE Rx#: [id number] Mycamine Inj 100 MG In NS Inj 100 / 100 100 ML @ 100 mls/hr IV.SIG Q24H COLE Rx#:[id number] Zosyn 2.25 GM Premix 50 ML @ 50 / 50 100 / 100 100 mls/hr IV.SIG Q8H COLE Rx#: [id number] Sodium Chloride 23.4% Inj 5.5 1034.7969 / 1034.7969 MEQ Sodium Acetate Inj 29.5 MEQ KCl Inj 20 MEQ Magnesium Chloride Inj 5 MEQ Calcium Chloride Inj 4.5 MEQ MVI-12 Inj 10 ML Folvite Inj 1 MG In Clinimix 5%/D20W Inj 1,000 ML @ 40.374 mls/hr IV.SIG Q24H COLE Rx#:[id number] fentaNYL 10 mcg/mL Premix Drip 250 / 250 250 / 250 250 / 250 2,500 mcg In 250 ml @ 50 MCG/HR 5 mls/hr IV.SIG TITRATE PRN Rx #:[id number] Tube Feeding 115 / 115 120 / 120 Other 150 / 150 Rbc As-3 Leukoreduced Unit 0 / 0 [id number] Rbc As-3 Leukoreduced Unit 150 / 150 [id number] Intake (Blood Product) Amt 800 / 800 Rbc As-3 Leukoreduced Unit 400 / 400 [id number] Rbc As-3 Leukoreduced Unit 400 / 400 [id number] Output: Hemodialysis Amount 5000 / 5000 Urine Amount (Catheter) 20 / 20 Indwelling Temp Sensing 20 / 20 Catheter Gastric Drainage 0 / 0 Right Nare Nasogastric Tube 0 / 0 Wound Drainage 100 / 100 170 / 170 # 1 Right Abdomen 60 / 60 90 / 90 # 2 Right Abdomen 40 / 40 80 / 80 Other: Other Intake Source Rbc As-3 Leukoreduced Unit Saline Solution [id number] # Bowel Movements 0 Result Diagrams: 12/02/17 04:37 12/02/17 04:37 Objective Remarks: GEN: Chronically ill-appearing, no distress HEENT: NCAT, pupils 2 mm and reactive bilaterally NECK: RIJ vasc-cath and LIJ TLC present, clean/ dry/ intact CARDIO: Borderline bradycardic to high 60s, no murmur, neck veins are full. PULM: Mechanical breath sounds bilaterally. Few scattered rhonchi but otherwise good bilateral air movement ABD: Midline surgical bandages clean/ dry/ intact. ZAINAB #1 is anterior to esophagojejunostomy anastomosis, ZAINAB #2 posterior, both with serosanguineous drainage. Abdomen soft. Fascia is closed, skin is open, depth of wound is minimal. EXT/MSK: Anasarca SKIN: No rashes or lesions NEURO: Moves 4 limbs spontaneously. Purposeful with arms. PSYCH: Unable to assess Assessment and Plan - Problem List (1) Gastric perforation Code(s): K25.5 - Chronic or unspecified gastric ulcer with perforation Status : Acute (2) Status post total gastrectomy and Dinh-en-Y esophagojejunal anastomosis Code(s): Z90.3 - Acquired absence of stomach [part of]; Z98.0 - Intestinal bypass and anastomosis status Status: Acute (3) Ischemic hepatitis Code(s): K75.9 - Inflammatory liver disease, unspecified Status: Acute (4) Gastric necrosis Code(s): K31.89 - Other diseases of stomach and duodenum Status: Acute (5) Thrombocytopenia Code(s): D69.6 - Thrombocytopenia, unspecified Status: Acute (6) Acute bilateral deep vein thrombosis (DVT) of upper extremities Code(s): I82.623 - Acute embolism and thrombosis of deep veins of upper extremity, bilateral Status: Acute (7) Anemia Code(s): D64.9 - Anemia, unspecified Status: Acute (8) Leukocytosis Code(s): D72.829 - Elevated white blood cell count, unspecified Status: Acute (9) Candidemia Code(s): B37.7 - Candidal sepsis Status: Acute (10) On total parenteral nutrition (TPN) Code(s): Z78.9 - Other specified health status Status: Acute (11) Hx of cardiac arrest Code(s): Z86.74 - Personal history of sudden cardiac arrest Status: Resolved (12) Acute hemodialysis patient Code(s): Z99.2 - Dependence on renal dialysis Status: Acute (13) JACLYN (acute kidney injury) Code(s): N17.9 - Acute kidney failure, unspecified Status: Acute (14) Aspiration pneumonia Code(s): J69.0 - Pneumonitis due to inhalation of food and vomit Status: Acute (15) Acute respiratory failure Code(s): J96.00 - Acute respiratory failure, unspecified whether with hypoxia or hypercapnia Status: Acute - Assessment and Plan Plan: NEURO: Currently on precedex @ 0.8, fentanyl @ 150 Pupils dilated bilaterally--> stepmother states dilated fundoscopic exam prior to transfer (fungemia) RESP: Acute respiratory failure PRVC, ventilator bundle Ventilator weaning as tolerated; if patient is unable to be extubated within the next 2-3 days, will need trach CXR shows lines and tubes in adequate position CV: Cardiac arrest 11/23/17 (PEA arrest due to shock secondary to acute gastric perf and tension pneumoperitoneum) Septic shock, resolved Now off pressors Hemodynamic monitoring with L radial art line GI: s/p gastric perforation with tension pneumoperitoneum status post ex lap with primary repair of anterior gastric perforation with stapler 11/23 On second look 11/25 he was found to have gastric necrosis requiring subtotal gastrectomy and placement of Abthera VAC dressing. The bowel was in discontinuity and he was transferred to [facility]. On 11/28 he underwent reexploration with Dinh-en-y esophagojejunostomy, feeding jejunostomy placement, diagnostic EGD, primary fascial closure Gastric necrosis Ischemic hepatopathy NGT to LIWS, do not manipulate NGT per general surgery orders from [facility]. Has feeding jejunostomy and tube feeds with Nepro 10 mL per hour had been started at [facility], continue for now with further management per general surgery. ZAINAB drains in place #1 anterior to anastomosis, #2 posterior to the anastomosis. Management per general surgery. Continue TPN renal formula 46 mL/hr. Intermittent lipids daily. General surgery recs appreciated Had right upper quadrant ultrasound on 11/27/17 that demonstrated contracted gallbladder with sludge. No evidence of cholecystitis. Echogenicity in right liver related to focal fatty change or altered perfusion. Color Doppler interrogation through the region demonstrates patent vascularity. FEN/RENAL: JACLYN secondary to ischemic ATN HD as started 11/26 at [place]. Had HD 3 hours on 11/28 at [facility] with 1700 mL UF; HD today Has Delgado in place currently. Has R IJ Vascath. Monitor I/O and electrolytes. Nephrology consult. Will check triglycerides and prealbumin with tomorrow's labs ID: Gastric perforation with large amount particulate peritoneal contamination 11/23 Acute Aspiration pneumonia Candidemia - reportedly blood cultures at OSH were positive. Will request records from microbiology. Patient had been on micafungin 100 mg IV daily (started at [facility]) with last administration at 10 AM on 11/29. Was previously on diflucan IV. On Zosyn 2.25 IV every 8 hours with last administration 11/29 at noon. Will continue zosyn/micafungin. Patient was evaluated by ophthalmology prior to transfer. I do not see an ophthalmology note in the transfer documentation. I have requested this document. Requested culture data from [facility]. Send blood culture x2 sets now. Sputum culture 11/24 with pansensitive Klebsiella pneumonia ID consult HEME: Thrombocytopenia Bilateral upper extremity DVTs U/s 11/26 BUE - thrombus R axillary, brachial and basilic veins and thrombus in left axillary and left brachial veins. U/s bilateral lower extremities 11/26 at [facility] negative from common femoral to popliteal vein levels. Arrived on heparin drip Hematology consult was obtained at [facility] and recommended heparin drip and transfuse prn for platelets <50k. Will use target PTT 40-65 now, no boluses. Monitor CBC ENDO: Monitor Glucose q4 hours and use low dose insulin sliding scale as indicated. PROPH: Discontinue heparin drip and start subcu for DVT prophylaxis. Protonix 40 mg IV daily for stress ulcer prophylaxis. ACCESS: R IJ vascath , L IJ CVL, L radial art line. All existing lines were replaced at [facility]. FULL CODE Counseling/ Coordination of Care: Total critical care time: 38 minutes. This includes examining the patient, gathering history from someone other than the patient (i.e., chart review), discussing the patient's care with other providers, managing the patient's blood pressure and ventilator settings, ordering and interpreting radiology studies, ordering and interpreting laboratory studies, managing the patient's pain and sedation requirements, re-evaluation at frequent intervals, and documentation. (6) Acute bilateral deep vein thrombosis (DVT) of upper extremities Qualifiers: Affected thrombotic vein of extremity: brachial Qualified Code(s): I82.623 - Acute embolism and thrombosis of deep veins of upper extremity, bilateral (15) Acute respiratory failure Qualifiers: Respiratory failure complication: hypoxia Qualified Code(s): J96.01 - Acute respiratory failure with hypoxia
--- NOTE | 2017-12-02 12:37 | P.PNNP ---
Subjective Interval history: Extubated on 4 liters NC. Patient is alert and tracking. Non verbal. Family at bedside. Creatinine remains high at 6.17 and anuric. <Princess Martel - Last Filed: 12/02/17 12:30> Physical Exam Vital signs: Vital Signs 12/01/17 12:36 12/01/17 14:00 12/01/17 16:00 Temperature 98 F 98.5 F Pulse Rate 57 L 62 78 Respiratory Rate 19 16 Blood Pressure Pulse Oximetry 100 12/01/17 16:45 12/01/17 18:00 12/01/17 20:00 Temperature 98.8 F Pulse Rate 70 92 H Respiratory Rate 17 22 Blood Pressure 170/83 H Pulse Oximetry 100 100 12/01/17 20:30 12/01/17 21:11 12/02/17 00:00 Temperature 98.7 F Pulse Rate 56 L Respiratory Rate 17 16 Blood Pressure 156/54 H 149/69 H Pulse Oximetry 100 100 12/02/17 04:00 12/02/17 08:00 12/02/17 09:47 Temperature 98.9 F 98.7 F Pulse Rate 74 104 H Respiratory Rate 16 17 20 Blood Pressure 156/93 H Pulse Oximetry 100 100 97 12/02/17 10:10 Temperature Pulse Rate 109 H Respiratory Rate 28 H Blood Pressure Pulse Oximetry Intake & Output 12/01/17 12/02/17 12/02/17 18:59 06:59 18:59 Intake Total 1665 / 1665 2504.7969 / 2504.7969 250 / 250 Output Total 5120 / 5120 170 / 170 Balance -3455 / -3455 2334.7969 / 2334.7969 250 / 250 Weight 93.4 kg Intake: IV 600 / 600 2384.7969 / 2384.7969 250 / 250 Heparin/D5W 25,000 U/250 mL 25, 250 / 250 000 unit In 250 ml @ Per Protocol IV.CONT TITRATE PRN Rx #:[id number] Diprivan 1000 mg/100 ml Inj 1, 200 / 200 500 / 500 000 mg In 100 ml @ 5 MCG/KG/MIN 2.859 mls/hr IV.CONT TITRATE PRN Rx#:[id number] Intralipid 20% Inj 250 ML @ 31. 250 / 250 25 mls/hr IV.SIG Q24H [facility] Rx#: [id number] Mycamine Inj 100 MG In NS Inj 100 / 100 100 ML @ 100 mls/hr IV.SIG Q24H [facility] Rx#:[id number] Zosyn 2.25 GM Premix 50 ML @ 50 / 50 100 / 100 100 mls/hr IV.SIG Q8H [facility] Rx#: [id number] Sodium Chloride 23.4% Inj 5.5 1034.7969 / 1034.7969 MEQ Sodium Acetate Inj 29.5 MEQ KCl Inj 20 MEQ Magnesium Chloride Inj 5 MEQ Calcium Chloride Inj 4.5 MEQ MVI-12 Inj 10 ML Folvite Inj 1 MG In Clinimix 5%/D20W Inj 1,000 ML @ 40.374 mls/hr IV.SIG Q24H [facility] Rx#:[id number] fentaNYL 10 mcg/mL Premix Drip 250 / 250 250 / 250 250 / 250 2,500 mcg In 250 ml @ 50 MCG/HR 5 mls/hr IV.SIG TITRATE PRN Rx #:[id number] Tube Feeding 115 / 115 120 / 120 Other 150 / 150 Rbc As-3 Leukoreduced Unit 0 / 0 [id number] Rbc As-3 Leukoreduced Unit 150 / 150 [id number] Intake (Blood Product) Amt 800 / 800 Rbc As-3 Leukoreduced Unit 400 / 400 [id number] Rbc As-3 Leukoreduced Unit 400 / 400 [id number] Output: Hemodialysis Amount 5000 / 5000 Urine Amount (Catheter) 20 / 20 Indwelling Temp Sensing 20 / 20 Catheter Gastric Drainage 0 / 0 Right Nare Nasogastric Tube 0 / 0 Wound Drainage 100 / 100 170 / 170 # 1 Right Abdomen 60 / 60 90 / 90 # 2 Right Abdomen 40 / 40 80 / 80 Other: Other Intake Source Rbc As-3 Leukoreduced Unit Saline Solution [id number] # Bowel Movements 0 Narrative: GENERAL: Alert, non verbal SKIN: Warm and dry. Abdominal dressing in place NECK: Supple, trachea midline. JVD distention CARDIOVASCULAR: Regular rate and rhythm without murmurs, gallops, or rubs. RESPIRATORY: Breath sounds diminished bilaterally. No accessory muscle use. GASTROINTESTINAL: Abdomen distended. Drains in place, dressing on. MUSCULOSKELETAL: No cyanosis, generalized edema - Urinary Catheter Management Indwelling Temp Sensing Catheter Cath placed during this visit: no <Princess Martel - Last Filed: 12/02/17 12:30> Vital signs: Vital Signs 12/03/17 20:00 12/03/17 21:00 12/04/17 00:00 Temperature 99.1 F 97.9 F Pulse Rate 102 H 92 H Respiratory Rate 31 H 20 Blood Pressure 188/85 H Pulse Oximetry 100 93 L 85 L 12/04/17 00:23 12/04/17 00:50 12/04/17 01:25 Temperature Pulse Rate 102 H Respiratory Rate 16 16 Blood Pressure Pulse Oximetry 99 100 12/04/17 03:36 12/04/17 04:00 12/04/17 04:02 Temperature 98.4 F Pulse Rate 97 H 100 H Respiratory Rate 26 H 22 23 Blood Pressure Pulse Oximetry 100 100 12/04/17 07:00 12/04/17 07:12 12/04/17 07:32 Temperature Pulse Rate 100 H 99 H Respiratory Rate 83 H 80 H 22 Blood Pressure 165/87 H Pulse Oximetry 100 100 100 12/04/17 07:54 12/04/17 08:00 12/04/17 08:12 Temperature 98.2 F Pulse Rate 84 96 H 95 H Respiratory Rate 22 80 H 79 H Blood Pressure 159/88 H 159/88 H Pulse Oximetry 99 99 12/04/17 08:15 12/04/17 08:30 12/04/17 08:45 Temperature Pulse Rate 96 H 95 H 95 H Respiratory Rate 78 H 87 H 89 H Blood Pressure Pulse Oximetry 99 99 99 12/04/17 09:00 12/04/17 09:12 12/04/17 09:15 Temperature Pulse Rate 96 H 96 H 96 H Respiratory Rate 78 H 90 H 88 H Blood Pressure 158/84 H Pulse Oximetry 99 99 99 12/04/17 09:30 12/04/17 09:45 12/04/17 10:00 Temperature Pulse Rate 95 H 95 H 96 H Respiratory Rate 77 H 77 H 68 H Blood Pressure Pulse Oximetry 99 99 100 12/04/17 10:12 12/04/17 10:15 12/04/17 10:30 Temperature Pulse Rate 95 H 95 H 94 H Respiratory Rate 78 H 90 H 88 H Blood Pressure 156/77 H Pulse Oximetry 100 100 100 12/04/17 10:45 12/04/17 11:00 12/04/17 11:02 Temperature Pulse Rate 94 H 94 H 94 H Respiratory Rate 90 H 78 H 18 Blood Pressure Pulse Oximetry 100 100 12/04/17 11:04 12/04/17 11:12 12/04/17 11:15 Temperature Pulse Rate 94 H 94 H Respiratory Rate 19 92 H 92 H Blood Pressure 159/80 H Pulse Oximetry 100 100 100 12/04/17 11:17 12/04/17 11:30 12/04/17 11:35 Temperature 97.6 F 97.7 F Pulse Rate 94 H 93 H 94 H Respiratory Rate 19 76 H 19 Blood Pressure 148/63 H 143/62 H Pulse Oximetry 100 99 99 12/04/17 11:45 12/04/17 11:53 12/04/17 12:00 Temperature 97.9 F Pulse Rate 92 H 91 H 91 H Respiratory Rate 76 H 80 H Blood Pressure Pulse Oximetry 100 100 12/04/17 12:12 12/04/17 12:15 12/04/17 12:30 Temperature Pulse Rate 90 89 90 Respiratory Rate 90 H 82 H 73 H Blood Pressure 167/86 H Pulse Oximetry 99 99 99 12/04/17 12:45 12/04/17 13:00 12/04/17 13:12 Temperature Pulse Rate 90 89 89 Respiratory Rate 60 H 60 H 70 H Blood Pressure 172/83 H Pulse Oximetry 99 99 99 12/04/17 13:15 12/04/17 13:30 12/04/17 13:45 Temperature Pulse Rate 90 91 H 93 H Respiratory Rate 61 H 73 H 75 H Blood Pressure Pulse Oximetry 99 99 99 12/04/17 14:00 12/04/17 14:08 12/04/17 14:12 Temperature Pulse Rate 93 H 94 H Respiratory Rate 74 H 19 63 H Blood Pressure 174/80 H Pulse Oximetry 99 99 12/04/17 14:15 12/04/17 14:30 12/04/17 14:45 Temperature Pulse Rate 93 H 92 H 96 H Respiratory Rate 69 H 62 H 63 H Blood Pressure Pulse Oximetry 99 99 99 12/04/17 15:00 12/04/17 15:12 12/04/17 15:15 Temperature Pulse Rate 92 H 92 H 92 H Respiratory Rate 57 H 53 H 62 H Blood Pressure 178/79 H Pulse Oximetry 99 99 100 12/04/17 15:30 12/04/17 15:45 12/04/17 16:00 Temperature 98 F Pulse Rate 91 H 91 H 90 Respiratory Rate 67 H 52 H 49 H Blood Pressure Pulse Oximetry 100 99 99 12/04/17 16:06 12/04/17 16:12 12/04/17 16:15 Temperature Pulse Rate 89 92 H 90 Respiratory Rate 23 53 H 58 H Blood Pressure 178/81 H Pulse Oximetry 99 99 12/04/17 16:30 12/04/17 16:45 Temperature Pulse Rate 91 H 91 H Respiratory Rate 75 H 76 H Blood Pressure Pulse Oximetry 99 99 Intake & Output 12/03/17 12/04/17 12/04/17 18:59 06:59 18:59 Intake Total 468 / 468 1484.7969 / 1484.7969 1740 / 1740 Output Total 63705 / 78132 1200 / 1200 1974 / 1974 Balance -88587 / -09511 284.7969 / 284.7969 -235 / -235 Weight 84.6 kg Intake: IV 300 / 300 1434.7969 / 1434.7969 1600 / 1600 Versed Inj 50 mg In 50 ml @ 2 50 / 50 100 / 100 MG/HR 2 mls/hr IV.CONT TITRATE PRN Rx#:[id number] Intralipid 20% Inj 250 ML @ 31. 250 / 250 25 mls/hr IV.SIG Q24H [facility] Rx#: [id number] Mycamine Inj 100 MG In NS Inj 200 / 200 100 ML @ 100 mls/hr IV.SIG Q24H [facility] Rx#:[id number] Zosyn 2.25 GM Premix 50 ML @ 50 / 50 100 / 100 50 / 50 100 mls/hr IV.SIG Q8H [facility] Rx#: [id number] Sodium Chloride 23.4% Inj 5.5 1034.7969 / 1034.7969 MEQ Sodium Acetate Inj 29.5 MEQ KCl Inj 20 MEQ Magnesium Chloride Inj 5 MEQ Calcium Chloride Inj 4.5 MEQ MVI-12 Inj 10 ML Folvite Inj 1 MG In Clinimix 5%/D20W Inj 1,000 ML @ 40.374 mls/hr IV.SIG Q24H [facility] Rx#:[id number] fentaNYL 10 mcg/mL Premix Drip 250 / 250 250 / 250 2,500 mcg In 250 ml @ 50 MCG/HR 5 mls/hr IV.SIG TITRATE PRN Rx #:[id number] NS Inj 1,000 ML @ As Directed 1000 / 1000 OTHER .Q0M PRN Rx#:[id number] Tube Feeding 108 / 108 50 / 50 140 / 140 Tube Irrigant 60 / 60 Intake (Blood Product) Amt 0 / 0 Rbc As-3 Leukoreduced Unit 0 / 0 [id number] Output: Urine 0 / 0 0 / 0 Hemodialysis Amount 49289 / 96671 Gastric Drainage 700 / 700 Right Nare Nasogastric Tube 700 / 700 Wound Drainage 500 / 500 1200 / 1200 1275 / 1275 # 1 Right Abdomen 300 / 300 75 / 75 25 / 25 # 2 Right Abdomen 200 / 200 1125 / 1125 1250 / 1250 Other: Date of Last Bowel Movement 12/03/17 12/04/17 12/03/17 # Bowel Movements 2 3 - Urinary Catheter Management Indwelling Temp Sensing Catheter Cath placed during this visit: no <Jolie Connor - Last Filed: 12/04/17 18:08> Assessment and Plan - Assessment (1) JACLYN (acute kidney injury) Code(s): N17.9 - Acute kidney failure, unspecified Status: Acute Plan: Acute kidney injury most likely has developed ATN. Hemodialysis yesterday tolerated well. Creatinine remains elevated at 6.17 and patient is anuric. Will continue with hemodialysis next scheduled for Sunday but may need tomorrow will be evaluated in AM. Avoid nephrotoxic agents and IVF administration. Will follow urinary output and BMP. (2) Acute respiratory failure Code(s): J96.00 - Acute respiratory failure, unspecified whether with hypoxia or hypercapnia Status: Acute Qualifiers: Respiratory failure complication: hypoxia Qualified Code(s): J96.01 - Acute respiratory failure with hypoxia Plan: Extubated on 4 liters NC (3) Gastric perforation Code(s): K25.5 - Chronic or unspecified gastric ulcer with perforation Status : Acute Plan: s/p surgery. Subtotal gastrectomy here. In he had: Dinh-en-y esophagojejunostomy, feeding jejunostomy placement, diagnostic EGD, primary fascial closure. Date of procedure: 11/28/17 (4) Candidemia Code(s): B37.7 - Candidal sepsis Status: Acute Plan: On Micafungin. Patient is also on Zosyn. Dose medications appropriate to renal function. (5) DVT (deep venous thrombosis) Code(s): I82.409 - Acute embolism and thrombosis of unspecified deep veins of unspecified lower extremity Status: Acute Plan: On heparin drip. DVT of bilateral upper extremities. <Princess Martel - Last Filed: 12/02/17 12:30> - Assessment (1) JACLYN (acute kidney injury) Code(s): N17.9 - Acute kidney failure, unspecified Status: Acute Plan: Patient seen and examine, agree with above. Continue HD as needed. Watch for renal recovery. Dr. Robertson will follow from AM. (2) Acute respiratory failure Code(s): J96.00 - Acute respiratory failure, unspecified whether with hypoxia or hypercapnia Status: Acute Qualifiers: Respiratory failure complication: hypoxia Qualified Code(s): J96.01 - Acute respiratory failure with hypoxia (3) Gastric perforation Code(s): K25.5 - Chronic or unspecified gastric ulcer with perforation Status : Acute (4) Candidemia Code(s): B37.7 - Candidal sepsis Status: Acute (5) DVT (deep venous thrombosis) Code(s): I82.409 - Acute embolism and thrombosis of unspecified deep veins of unspecified lower extremity Status: Acute <Jolie Connor - Last Filed: 12/04/17 18:08>
--- NOTE | 2017-12-02 13:43 | P.PNGS ---
Subjective Patient reports: feels better Physical Exam Vital signs: Vital Signs 12/01/17 14:00 12/01/17 16:00 12/01/17 16:45 Temperature 98.5 F Pulse Rate 62 78 Respiratory Rate 16 17 Blood Pressure Pulse Oximetry 100 100 12/01/17 18:00 12/01/17 20:00 12/01/17 20:30 Temperature 98.8 F Pulse Rate 70 92 H Respiratory Rate 22 Blood Pressure 170/83 H 156/54 H Pulse Oximetry 100 12/01/17 21:11 12/02/17 00:00 12/02/17 04:00 Temperature 98.7 F 98.9 F Pulse Rate 56 L 74 Respiratory Rate 17 16 16 Blood Pressure 149/69 H 156/93 H Pulse Oximetry 100 100 100 12/02/17 08:00 12/02/17 09:47 12/02/17 10:00 Temperature 98.7 F Pulse Rate 104 H 113 H Respiratory Rate 17 20 Blood Pressure Pulse Oximetry 100 97 12/02/17 10:10 12/02/17 12:00 Temperature 98.4 F Pulse Rate 109 H 104 H Respiratory Rate 28 H 23 Blood Pressure Pulse Oximetry 94 L Intake & Output 12/01/17 12/02/17 12/02/17 18:59 06:59 18:59 Intake Total 1665 / 1665 2504.7969 / 2504.7969 350 / 350 Output Total 5120 / 5120 170 / 170 Balance -3455 / -3455 2334.7969 / 2334.7969 350 / 350 Weight 93.4 kg Intake: IV 600 / 600 2384.7969 / 2384.7969 350 / 350 Heparin/D5W 25,000 U/250 mL 25, 250 / 250 000 unit In 250 ml @ Per Protocol IV.CONT TITRATE PRN Rx #:[id number] Diprivan 1000 mg/100 ml Inj 1, 200 / 200 500 / 500 000 mg In 100 ml @ 5 MCG/KG/MIN 2.859 mls/hr IV.CONT TITRATE PRN Rx#:[id number] Intralipid 20% Inj 250 ML @ 31. 250 / 250 25 mls/hr IV.SIG Q24H [facility] Rx#: [id number] Mycamine Inj 100 MG In NS Inj 100 / 100 100 / 100 100 ML @ 100 mls/hr IV.SIG Q24H [facility] Rx#:[id number] Zosyn 2.25 GM Premix 50 ML @ 50 / 50 100 / 100 100 mls/hr IV.SIG Q8H [facility] Rx#: [id number] Sodium Chloride 23.4% Inj 5.5 1034.7969 / 1034.7969 MEQ Sodium Acetate Inj 29.5 MEQ KCl Inj 20 MEQ Magnesium Chloride Inj 5 MEQ Calcium Chloride Inj 4.5 MEQ MVI-12 Inj 10 ML Folvite Inj 1 MG In Clinimix 5%/D20W Inj 1,000 ML @ 40.374 mls/hr IV.SIG Q24H [facility] Rx#:[id number] fentaNYL 10 mcg/mL Premix Drip 250 / 250 250 / 250 250 / 250 2,500 mcg In 250 ml @ 50 MCG/HR 5 mls/hr IV.SIG TITRATE PRN Rx #:[id number] Tube Feeding 115 / 115 120 / 120 Other 150 / 150 Rbc As-3 Leukoreduced Unit 0 / 0 [id number] Rbc As-3 Leukoreduced Unit 150 / 150 [id number] Intake (Blood Product) Amt 800 / 800 Rbc As-3 Leukoreduced Unit 400 / 400 [id number] Rbc As-3 Leukoreduced Unit 400 / 400 [id number] Output: Hemodialysis Amount 5000 / 5000 Urine Amount (Catheter) 20 / 20 Indwelling Temp Sensing 20 / 20 Catheter Gastric Drainage 0 / 0 Right Nare Nasogastric Tube 0 / 0 Wound Drainage 100 / 100 170 / 170 # 1 Right Abdomen 60 / 60 90 / 90 # 2 Right Abdomen 40 / 40 80 / 80 Other: Other Intake Source Rbc As-3 Leukoreduced Unit Saline Solution [id number] # Bowel Movements 0 - Constitutional no acute distress - Routine Abdominal Exam Present: soft, tenderness, distended. Absent: normoactive bowel sounds, rebound , guarding Comments: wound clean, intact, no infection, small old blood clots noted - Routine Neurological Exam Present: alert - Urinary Catheter Management Indwelling Temp Sensing Catheter Cath placed during this visit: no Results - Labs 12/02/17 04:37 12/02/17 04:37 Laboratory Results - last 24 hr 12/01/17 12/01/17 12/01/17 08:45 16:40 19:43 WBC RBC Hgb Hct MCV MCH MCHC RDW Plt Count MPV Prelim Diff (Auto) Neut % (Auto) Lymph % (Auto) Jerome % (Auto) Eos % (Auto) Baso % (Auto) Neut # (Auto) Lymph # (Auto) Jerome # (Auto) Eos # (Auto) Baso # (Auto) WBC Differential Seg Neuts % (Manual) Band Neuts % (Manual) Lymphocytes % (Manual) Monocytes % (Manual) Metamyelocytes % (Man) Myelocytes % (Man) Abs Neuts (Manual) Differential Comment Platelet Estimate Platelet Morphology Keratocytes APTT Fibrinogen Puncture Site Patient Temperature VBG pH VBG pCO2 VBG pO2 VBG HCO3 VBG O2 Saturation VBG O2 Content VBG Base Excess VBG Carboxyhemoglobin VBG Methemoglobin Hemoglobin O2 Delivery Device Vent Setting Inspired O2 Critical Value Sodium 140 Potassium 3.5 Chloride 102 Carbon Dioxide 28.9 Anion Gap 9 BUN 56 H Creatinine 5.77 H Estimated GFR 13 L POC Glucose 102 Random Glucose 112 H Calcium 7.6 L Prot Corrected Calcium Phosphorus Magnesium 2.3 Total Bilirubin AST ALT Alkaline Phosphatase Total Protein Albumin MTS Gel Crossmatch See Detail 12/01/17 12/01/17 12/01/17 19:43 21:39 22:04 WBC RBC Hgb 9.7 L D Hct MCV MCH MCHC RDW Plt Count MPV Prelim Diff (Auto) Neut % (Auto) Lymph % (Auto) Jerome % (Auto) Eos % (Auto) Baso % (Auto) Neut # (Auto) Lymph # (Auto) Jerome # (Auto) Eos # (Auto) Baso # (Auto) WBC Differential Seg Neuts % (Manual) Band Neuts % (Manual) Lymphocytes % (Manual) Monocytes % (Manual) Metamyelocytes % (Man) Myelocytes % (Man) Abs Neuts (Manual) Differential Comment Platelet Estimate Platelet Morphology Keratocytes APTT 46.7 H Fibrinogen Puncture Site Patient Temperature VBG pH VBG pCO2 VBG pO2 VBG HCO3 VBG O2 Saturation VBG O2 Content VBG Base Excess VBG Carboxyhemoglobin VBG Methemoglobin Hemoglobin O2 Delivery Device Vent Setting Inspired O2 Critical Value Sodium Potassium Chloride Carbon Dioxide Anion Gap BUN Creatinine Estimated GFR POC Glucose 120 H Random Glucose Calcium Prot Corrected Calcium Phosphorus Magnesium Total Bilirubin AST ALT Alkaline Phosphatase Total Protein Albumin MTS Gel Crossmatch 12/01/17 12/01/17 12/02/17 22:17 22:29 00:00 WBC 24.0 H RBC 2.97 L Hgb 9.4 L Hct 26.2 L MCV 88.3 MCH 31.5 MCHC 35.7 RDW 14.5 Plt Count 79 L MPV 12.8 H Prelim Diff (Auto) Neut % (Auto) Lymph % (Auto) Jerome % (Auto) Eos % (Auto) Baso % (Auto) Neut # (Auto) Lymph # (Auto) Jerome # (Auto) Eos # (Auto) Baso # (Auto) WBC Differential Seg Neuts % (Manual) Band Neuts % (Manual) Lymphocytes % (Manual) Monocytes % (Manual) Metamyelocytes % (Man) Myelocytes % (Man) Abs Neuts (Manual) Differential Comment Platelet Estimate Platelet Morphology Keratocytes APTT Fibrinogen Puncture Site Cl Patient Temperature 98.6 VBG pH 7.41 H VBG pCO2 45 VBG pO2 37 VBG HCO3 28 H VBG O2 Saturation 68 L VBG O2 Content 9.2 VBG Base Excess 3.5 H VBG Carboxyhemoglobin 1.2 VBG Methemoglobin 1.8 Hemoglobin 9.6 L O2 Delivery Device Vent Vent Setting See comments Inspired O2 40 Critical Value No Sodium Potassium Chloride Carbon Dioxide Anion Gap BUN Creatinine Estimated GFR POC Glucose Random Glucose Calcium Prot Corrected Calcium Phosphorus Magnesium Total Bilirubin AST ALT Alkaline Phosphatase Total Protein Albumin MTS Gel Crossmatch See Detail 12/02/17 12/02/17 12/02/17 00:00 04:37 04:37 WBC 26.4 H RBC 3.07 L Hgb 9.4 L Hct 27.2 L MCV 88.5 MCH 30.8 MCHC 34.8 RDW 14.8 Plt Count 85 L MPV 12.0 H Prelim Diff (Auto) Slide review pending Neut % (Auto) 87.6 H Lymph % (Auto) 7.3 L Jerome % (Auto) 3.7 Eos % (Auto) 1.0 Baso % (Auto) 0.4 Neut # (Auto) 23.1 H Lymph # (Auto) 1.9 Jerome # (Auto) 1.0 H Eos # (Auto) 0.3 Baso # (Auto) 0.1 WBC Differential Manual diff final Seg Neuts % (Manual) 80 H Band Neuts % (Manual) 10 H Lymphocytes % (Manual) 3 L Monocytes % (Manual) 1 Metamyelocytes % (Man) 3 H Myelocytes % (Man) 3 H Abs Neuts (Manual) 25.3 H Differential Comment . Platelet Estimate Low L Platelet Morphology Enlarged H Keratocytes Occ H APTT 27.8 D Fibrinogen 612 H Puncture Site Patient Temperature VBG pH VBG pCO2 VBG pO2 VBG HCO3 VBG O2 Saturation VBG O2 Content VBG Base Excess VBG Carboxyhemoglobin VBG Methemoglobin Hemoglobin O2 Delivery Device Vent Setting Inspired O2 Critical Value Sodium Potassium Chloride Carbon Dioxide Anion Gap BUN Creatinine Estimated GFR POC Glucose Random Glucose Calcium Prot Corrected Calcium Phosphorus Magnesium Total Bilirubin AST ALT Alkaline Phosphatase Total Protein Albumin MTS Gel Crossmatch 12/02/17 12/02/17 12/02/17 04:37 08:52 13:16 WBC RBC Hgb Hct MCV MCH MCHC RDW Plt Count MPV Prelim Diff (Auto) Neut % (Auto) Lymph % (Auto) Jerome % (Auto) Eos % (Auto) Baso % (Auto) Neut # (Auto) Lymph # (Auto) Jerome # (Auto) Eos # (Auto) Baso # (Auto) WBC Differential Seg Neuts % (Manual) Band Neuts % (Manual) Lymphocytes % (Manual) Monocytes % (Manual) Metamyelocytes % (Man) Myelocytes % (Man) Abs Neuts (Manual) Differential Comment Platelet Estimate Platelet Morphology Keratocytes APTT Fibrinogen Puncture Site Patient Temperature VBG pH VBG pCO2 VBG pO2 VBG HCO3 VBG O2 Saturation VBG O2 Content VBG Base Excess VBG Carboxyhemoglobin VBG Methemoglobin Hemoglobin O2 Delivery Device Vent Setting Inspired O2 Critical Value Sodium 139 Potassium 3.6 Chloride 102 Carbon Dioxide 25.9 Anion Gap 11 BUN 58 H Creatinine 6.17 H Estimated GFR 12 L POC Glucose 125 H 133 H Random Glucose 122 H Calcium 7.2 L* Prot Corrected Calcium 8.3 L Phosphorus 2.7 Magnesium 2.3 Total Bilirubin 3.1 H AST 128 H ALT 216 H Alkaline Phosphatase 70 Total Protein 5.1 L Albumin 1.5 L MTS Gel Crossmatch - Imaging Imaging: ITS Impressions Chest X-Ray 11/29/17 19:18 CONCLUSION: NG tip near GE junction. Basilar airspace disease and pleural effusions similar to prior exam. Assessment and Plan - Assessment (1) Gastric perforation Code(s): K25.5 - Chronic or unspecified gastric ulcer with perforation Status : Acute Plan: 47yo male s/p Exlap and gastrectomy for gastric perforation, s/p esophagojejunostomy at [facility], critical in ICU. some bleeding from wound overnight, order placed for surgicel as needed for wound continue NG and tube feeds with Jtube continue ZAINAB surgery will follow ok for prophylactic lovenox
--- NOTE | 2017-12-02 14:37 | P.PNID ---
Subjective Remarks: Patient was extubated today. He appears comfortable He is awake and alert. Not verbalizing much. He denies pain. Afebrile. Reported to have bleeding at the abdominal wound. Discussed with RN. This is a 46-year-old black male who initially was admitted to the hospital on 11/22/2017. The patient was found to have no pneumoperitoneum on 11/23/2017. He presented with severe abdominal pain. He was also noted to have ischemia of the proximal two-thirds of the stomach and there was a large gastric perforation and contamination of food particles into the peritoneum. The patient ended up being transferred to [facility] in [place] and he underwent subtotal gastrectomy and Dinh-en-Y esophageal jejunostomy and a feeding jejunostomy tube placement. He was put on antifungal medication for candidemia. The results of the cultures are not available to me at this time. The culture reportedly was from [facility] in [place]. He was transferred back to [facility] on 11/29/2017 from [facility]. The reason for this consultation is for candidemia. During the hospitalization, the patient was also noted to have code blue PEA arrest and he underwent CPR. He is currently sedated and on the ventilator. Allergies/Adverse Reactions: Allergies No Known Allergies Allergy (Verified 11/22/17 02:38) Objective Vital Signs 12/01/17 16:00 12/01/17 16:45 12/01/17 18:00 Temperature 98.5 F Pulse Rate 78 70 Respiratory Rate 16 17 Blood Pressure Pulse Oximetry 100 100 12/01/17 20:00 12/01/17 20:30 12/01/17 21:11 Temperature 98.8 F Pulse Rate 92 H Respiratory Rate 22 17 Blood Pressure 170/83 H 156/54 H Pulse Oximetry 100 100 12/02/17 00:00 12/02/17 04:00 12/02/17 08:00 Temperature 98.7 F 98.9 F 98.7 F Pulse Rate 56 L 74 104 H Respiratory Rate 16 16 17 Blood Pressure 149/69 H 156/93 H Pulse Oximetry 100 100 100 12/02/17 09:47 12/02/17 10:00 12/02/17 10:10 Temperature Pulse Rate 113 H 109 H Respiratory Rate 20 28 H Blood Pressure Pulse Oximetry 97 12/02/17 12:00 Temperature 98.4 F Pulse Rate 104 H Respiratory Rate 23 Blood Pressure Pulse Oximetry 94 L Intake & Output 12/01/17 12/02/17 12/02/17 18:59 06:59 18:59 Intake Total 1665 / 1665 2504.7969 / 2504.7969 350 / 350 Output Total 5120 / 5120 170 / 170 Balance -3455 / -3455 2334.7969 / 2334.7969 350 / 350 Weight 93.4 kg Intake: IV 600 / 600 2384.7969 / 2384.7969 350 / 350 Heparin/D5W 25,000 U/250 mL 25, 250 / 250 000 unit In 250 ml @ Per Protocol IV.CONT TITRATE PRN Rx #:[id number] Diprivan 1000 mg/100 ml Inj 1, 200 / 200 500 / 500 000 mg In 100 ml @ 5 MCG/KG/MIN 2.859 mls/hr IV.CONT TITRATE PRN Rx#:[id number] Intralipid 20% Inj 250 ML @ 31. 250 / 250 25 mls/hr IV.SIG Q24H COLE Rx#: [id number] Mycamine Inj 100 MG In NS Inj 100 / 100 100 / 100 100 ML @ 100 mls/hr IV.SIG Q24H COLE Rx#:[id number] Zosyn 2.25 GM Premix 50 ML @ 50 / 50 100 / 100 100 mls/hr IV.SIG Q8H COLE Rx#: [id number] Sodium Chloride 23.4% Inj 5.5 1034.7969 / 1034.7969 MEQ Sodium Acetate Inj 29.5 MEQ KCl Inj 20 MEQ Magnesium Chloride Inj 5 MEQ Calcium Chloride Inj 4.5 MEQ MVI-12 Inj 10 ML Folvite Inj 1 MG In Clinimix 5%/D20W Inj 1,000 ML @ 40.374 mls/hr IV.SIG Q24H COLE Rx#:[id number] fentaNYL 10 mcg/mL Premix Drip 250 / 250 250 / 250 250 / 250 2,500 mcg In 250 ml @ 50 MCG/HR 5 mls/hr IV.SIG TITRATE PRN Rx #:[id number] Tube Feeding 115 / 115 120 / 120 Other 150 / 150 Rbc As-3 Leukoreduced Unit 0 / 0 [id number] Rbc As-3 Leukoreduced Unit 150 / 150 [id number] Intake (Blood Product) Amt 800 / 800 Rbc As-3 Leukoreduced Unit 400 / 400 [id number] Rbc As-3 Leukoreduced Unit 400 / 400 [id number] Output: Hemodialysis Amount 5000 / 5000 Urine Amount (Catheter) 20 / 20 Indwelling Temp Sensing 20 / 20 Catheter Gastric Drainage 0 / 0 Right Nare Nasogastric Tube 0 / 0 Wound Drainage 100 / 100 170 / 170 # 1 Right Abdomen 60 / 60 90 / 90 # 2 Right Abdomen 40 / 40 80 / 80 Other: Other Intake Source Rbc As-3 Leukoreduced Unit Saline Solution [id number] # Bowel Movements 0 11/30/17 13:33 Blood - Peripheral Aerobic Blood Culture - Preliminary No growth in 2 days 11/30/17 13:33 Blood - Peripheral Anaerobic Blood Culture - Preliminary No growth in 2 days 11/30/17 03:19 Blood - Peripheral Aerobic Blood Culture - Preliminary No growth in 2 days 11/30/17 03:19 Blood - Peripheral Anaerobic Blood Culture - Preliminary No growth in 2 days Lab - Hematology Results 12/01/17 12/01/17 12/02/17 04:43 19:43 00:00 WBC 27.5 H 24.0 H RBC 2.32 L 2.97 L Hgb 7.3 L 9.7 L D 9.4 L Hct 20.9 L* 26.2 L MCV 90.4 88.3 MCH 31.4 31.5 MCHC 34.7 35.7 RDW 14.8 14.5 Plt Count 72 L 79 L MPV 12.6 H 12.8 H Prelim Diff (Auto) Slide review pending Neut % (Auto) 87.0 H Lymph % (Auto) 6.8 L Crisp % (Auto) 4.9 Eos % (Auto) 1.2 Baso % (Auto) 0.1 Neut # (Auto) 24.0 H Lymph # (Auto) 1.9 Crisp # (Auto) 1.3 H Eos # (Auto) 0.3 Baso # (Auto) 0.0 WBC Differential Manual diff final Seg Neuts % (Manual) 76 H Band Neuts % (Manual) 11 H Lymphocytes % (Manual) 8 L Monocytes % (Manual) 4 Metamyelocytes % (Man) 1 Myelocytes % (Man) Abs Neuts (Manual) 24.2 H Differential Comment . Toxic Granulation 1+ H Platelet Estimate Low L Platelet Morphology Enlarged H Ovalocytes 1+ H Keratocytes 12/02/17 04:37 WBC 26.4 H RBC 3.07 L Hgb 9.4 L Hct 27.2 L MCV 88.5 MCH 30.8 MCHC 34.8 RDW 14.8 Plt Count 85 L MPV 12.0 H Prelim Diff (Auto) Slide review pending Neut % (Auto) 87.6 H Lymph % (Auto) 7.3 L Crisp % (Auto) 3.7 Eos % (Auto) 1.0 Baso % (Auto) 0.4 Neut # (Auto) 23.1 H Lymph # (Auto) 1.9 Crisp # (Auto) 1.0 H Eos # (Auto) 0.3 Baso # (Auto) 0.1 WBC Differential Manual diff final Seg Neuts % (Manual) 80 H Band Neuts % (Manual) 10 H Lymphocytes % (Manual) 3 L Monocytes % (Manual) 1 Metamyelocytes % (Man) 3 H Myelocytes % (Man) 3 H Abs Neuts (Manual) 25.3 H Differential Comment . Toxic Granulation Platelet Estimate Low L Platelet Morphology Enlarged H Ovalocytes Keratocytes Occ H Lab - Chemistry Results 11/30/17 11/30/17 12/01/17 16:33 20:34 02:01 Sodium Potassium Chloride Carbon Dioxide Anion Gap BUN Creatinine Estimated GFR POC Glucose 133 H 160 H 141 H Random Glucose Calcium Prot Corrected Calcium Phosphorus Magnesium Total Bilirubin AST ALT Alkaline Phosphatase Total Protein Albumin Prealbumin Triglycerides 12/01/17 12/01/17 12/01/17 04:43 08:41 12:27 Sodium 142 Potassium 3.5 Chloride 104 Carbon Dioxide 25.1 Anion Gap 13 BUN 71 H Creatinine 6.99 H Estimated GFR 10 L POC Glucose 128 H 134 H Random Glucose 143 H Calcium 7.3 L* Prot Corrected Calcium 8.6 Phosphorus 2.6 D Magnesium 2.5 Total Bilirubin 3.9 H AST 165 H ALT 290 H Alkaline Phosphatase 63 Total Protein 4.8 L Albumin 1.7 L Prealbumin 14 L Triglycerides 427 H 12/01/17 12/01/17 12/01/17 16:40 19:43 21:39 Sodium 140 Potassium 3.5 Chloride 102 Carbon Dioxide 28.9 Anion Gap 9 BUN 56 H Creatinine 5.77 H Estimated GFR 13 L POC Glucose 102 120 H Random Glucose 112 H Calcium 7.6 L Prot Corrected Calcium Phosphorus Magnesium 2.3 Total Bilirubin AST ALT Alkaline Phosphatase Total Protein Albumin Prealbumin Triglycerides 12/02/17 12/02/17 12/02/17 04:37 08:52 13:16 Sodium 139 Potassium 3.6 Chloride 102 Carbon Dioxide 25.9 Anion Gap 11 BUN 58 H Creatinine 6.17 H Estimated GFR 12 L POC Glucose 125 H 133 H Random Glucose 122 H Calcium 7.2 L* Prot Corrected Calcium 8.3 L Phosphorus 2.7 Magnesium 2.3 Total Bilirubin 3.1 H AST 128 H ALT 216 H Alkaline Phosphatase 70 Total Protein 5.1 L Albumin 1.5 L Prealbumin Triglycerides Imaging: ITS Impressions Chest X-Ray 11/29/17 19:18 CONCLUSION: NG tip near GE junction. Basilar airspace disease and pleural effusions similar to prior exam. Physical Exam: PHYSICAL EXAMINATION: GENERAL: Patient in no acute distress. HEENT: Head is atraumatic. Extraocular movements grossly intact, pupils reactive to light. No icterus. NECK: Supple without adenopathy or swelling. LUNGS: Clear, decreased breath sounds. HEART: Regular S1, S2. No audible murmur. ABDOMEN: Midline abdominal incision intact. ZAINAB tubes exits the right abdomen and has serosanguineous drainage. EXTREMITIES: No clubbing or cyanosis. Swelling of the upper extremities. SKIN: No diffuse rash. NEUROLOGIC: Nonfocal. PSYCHIATRIC: Unable to assess. Assessment and Plan - Plan IMPRESSION: 1. Candidemia following gastric perforation and gastric ischemia. 2. Status post abdominal surgery. 3. Acute respiratory failure. 4. Acute kidney disease. 5. Recent cardiac arrest. 6. Leukocytosis. RECOMMENDATIONS: 1. Continue micafungin for candidemia. 2. Monitor new blood cultures, which were performed yesterday. 3. Monitor white blood cell count. 4. Continue piperacillin/tazobactam. 5. Monitor the temperature. 6. Monitor clinical response to antibiotics.
[2017-12-03] MEDS: fentaNYL Citrate Inj 100 MCG/2 ML Ampul IV PUSH PRN (00:13)
[2017-12-03] MEDS: fentaNYL 10 mcg/mL Premix Drip 2,500 MCG/250 ML BAG IV.SIG PRN ×2 (00:14→18:20)
[2017-12-03] MEDS: Insulin NovoLOG Aspart Correctional Sugar Inj SQ SCH ×6 (01:07→20:35)
[2017-12-03] MEDS: Oral Hygiene Kit OROPHARYNG SCH ×4 (01:07→17:03)
[2017-12-03] MEDS: Labetalol HCl Inj 100 MG/20 ML Vial IV.PUSH PRN ×2 (01:17→20:41)
[2017-12-03] MEDS: hydrALAZINE HCl Inj 20 MG/ML Vial IV.PUSH PRN ×2 (03:12→22:08)
[2017-12-03] MEDS: Chlorhexidine Gluconate 2% 1 Pack (2 Cloths) TOPICAL SCH (04:50)
[2017-12-03 05:10] LABS: Baso # (Auto) 0.1 th/mm3 (0.0-0.2); Baso % (Auto) 0.3 % (0.0-2.0); Eos # (Auto) 0.2 th/mm3 (0.0-0.4); Eos % (Auto) 0.7 % (0.0-4.0); Hematocrit 24.7 % (39.0-51.0); Hemoglobin 8.4 gm/dL (13.0-17.0); Lymph # (Auto) 1.2 th/mm3 (1.0-4.8); Lymph % (Auto) 4.4 % (9.0-44.0); Mean Corpuscular HGB Conc 34.1 % (32.0-36.0); Mean Corpuscular Hemoglobin 30.3 pg (27.0-34.0); Mean Corpuscular Volume 88.9 fL (80.0-100.0); Mean Platelet Volume 12.5 fL (7.0-11.0); Mono # (Auto) 1.4 th/mm3 (0.0-0.9); Neut % (Auto) 89.6 % (16.0-70.0); Platelet Count 114 th/mm3 (150-450); Red Blood Count 2.78 mil/mm3 (4.50-5.90); White Blood Count 27.9 th/mm3 (4.0-11.0)
[2017-12-03 05:32] LABS: Alanine Aminotransferase 212 U/L (12-78); Albumin 1.7 g/dL (3.4-5.0); Alkaline Phosphatase 83 U/L (45-117); Anion Gap 12 meq/L (5-15); Aspartate Aminotransferase 170 U/L (15-37); Blood Urea Nitrogen 81 mg/dL (7-18); Calcium 8.1 mg/dL (8.5-10.1); Carbon Dioxide 24.7 meq/L (21.0-32.0); Chloride 100 meq/L (98-107); Glomerular Filtration Rate 9 mL/min (>89); Glucose,Random 137 mg/dL (74-106); Magnesium 2.5 mg/dL (1.5-2.5); Phosphorus 5.2 mg/dL (2.5-4.9); Potassium 4.5 meq/L (3.5-5.1); Sodium 137 meq/L (136-145); Total Protein 5.6 g/dL (6.4-8.2)
[2017-12-03] MEDS: Piperacil/Tazo 2.25 GM Premix 50 ML IV.SIG SCH ×3 (05:43→22:22)
[2017-12-03 07:54] LABS: Lymphocytes 2 % (9-44); Metamyelocytes 1 % (0-1); Monocytes 3 % (0-8); Myelocytes 2 % (0-0)
[2017-12-03 07:55] LABS: Toxic Granulation 1+
[2017-12-03 07:56] LABS: Platelet Morphology Normal (Normal)
[2017-12-03] MEDS: Pantoprazole Inj 40 MG Vial IV.PUSH SCH (08:43)
--- NOTE | 2017-12-03 08:55 | P.PNCC ---
Subjective Subjective Remarks/Hospital Course: Patient was recently admitted to [facility] 11/22 and transferred to [facility] 11/26/17 after the following hospital course: 47-year-old -[place] male with reportedly no past medical or past surgical history who was admitted to hospitalist service 11/22/17 after presenting with abdominal pain, nausea, vomiting. He had CT abd/pelvis with massive gastric distention. NG tube had been placed. I was called to patient's bedside for CODE BLUE PEA arrest. CPR was ongoing and patient had massive abdominal distension and gastric regurgitant in the airway. He was emergently intubated and large amount of gastric secretions suctioned from oropharynx. After 21 minutes of CPR, ROSC was obtained and he was profoundly hypotensive. Continued aggressive fluid resuscitation and initiated dopamine. He was transferred to [facility] where CVL and R radial art line were placed and he was given 7 L of crystalloid and albumin. CXR demonstrated pneumoperitoneum and Dr. Martin Gudino was called emergently and he immediately contacted OR for emergent ex lap. He had intraabdominal hypertension with IAP of 40 mmHg, though fortunately was able to be ventilated adequately after rocuronium 50 mg IV and was transferred to OR. Dr. Martin Gudino took to the operating room early in the morning on 11/23 and discovered tension pneumoperitoneum, massive gastric distension, ischemia of the proximal 2/3 of the stomach and large gastric perforation with massive intraperitoneal contamination with food particles. Dr. Isaacs placed 2 NGT and decompressed 2 L of succus. Patient had initial improvement in vital signs in the immediate postoperative period, however he subsequently became hypotensive requiring upward titration of levophed and addition of vasopressin and stress dose hydrocortisone. He remains on levophed 10 mcg/min, neosynephrine 80 mcg/ min, vasopressin 0.04 units/min with overall vasopressor requirement weaning overnight. He is oliguric and creatinine is continuing to climb. He was given 2 L of crystalloid and albumin overnight. He does have significant fluid losses with combination of abdominal dressing and NGT output, so I will give an additional L of crystalloid now to monitor hourly response as he certainly does not appear volume overloaded. Nonetheless Flotrac numbers are suggesting adequate volume status and we may be seeing the consequence of ischemic ATN. May ultimately require HD, however not at this time. Abdomen remains open and plan is to re-explore 11/25. 11/25: Patient has acceptable hemodynamics by Flotrac but remains septic with requirements for phenylephrine 200 mics per minute, Levophed 8 mics per minute and vasopressin 0.04 units/min for blood pressure support. This has improved overnight and the Bhavesh-Synephrine support has been weaned off completely. Acid base balance is acceptable. ATN has developed which will undoubtedly require hemodialysis. Potassium level is normal. He is at increased risk for an anesthetic now but there is an urgent need to check for residual gastric necrosis. 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 Since the source control surgery, the maintenance of normal acid-base balance has been less difficult. Patient remains anuric with a rising creatinine above 6.0. He is clearly ahead on volume and will benefit from dialysis. A 2 lumen hemodialysis catheter was placed on 11/25 and has been packed with dilute heparin solution. The right internal jugular central line is been in place for 4 days and accessed multiple times. The femoral art line has been in for 4 days. Shock liver was apparent after the cardiac arrest reflecting a transaminitis, elevated bilirubin, and prolonged INR. The INR has remained normal following the transfusion of 4 units of fresh frozen plasma prior to surgery yesterday. A 10% dextrose infusion continues because of ongoing problems with hypoglycemia. Thrombocytopenia at 37,000 persists. He has remained on antibiotic coverage with Pipracil/tazobactam and fungal coverage with fluconazole, all adjusted for renal failure. Present vasopressor requirements include levophed at 7 mics per minute and vasopressin at 0.04 units/min. The chest x-ray is consistent with minor aspiration at the time of his preoperative cardiac arrest on the floor and cultures have subsequently grown Klebsiella, pansensitive. The operative note will clarify the extent of the surgery but in essence the distal esophagus is stapled off and marked with 2 Prolene sutures. The antrum of the stomach is oversewn. Most of the stomach has been removed. The abdomen is open with a VAC dressing applied. Subjective: 11/29: Bowel was in discontinuity following subtotal gastrectomy and patient was transferred to [facility]. On reexploration 11/28 he underwent Dinh-en-y esophagojejunostomy, feeding jejunostomy placement, diagnostic EGD, primary fascial closure. Wound vac was applied to abdomen (though currently wet to dry dressing in place upon arrival). He was reportedly found to have candidemia and was started on micafungin and has undergone ophtho eval. Lines including CVL, Vascath and art line have all been changed at [facility] (though not clear when). He remains on mechanical ventilation and has been weaned off pressors. He was found to have BUE DVTs and is on heparin drip. He is on TPN and has been started on trickle tube feeds with Nepro via jejunostomy. NGT is to [facility]. He underwent HD postoperatively on 11/28. He has now been transferred back to [facility] for ongoing management. I have updated his father and stepmother. 11/30: Patient re-admitted s/p transfer from [facility] overnight, otherwise no acute issues. Scheduled to undergo HD today. 12/01: T-max 101.7, leukocytosis to 27,000 with bandemia. Now 3 days following Dinh-en-Y reconstruction of GI tract following sub-total gastrectomy for gastric necrosis. All new lines placed after diagnosis of candidemia. TPN infusing, jejunostomy at trickle flow and can be increased slowly per general surgery. 12/02: Marked leukocytosis with bandemia persists. Afebrile over last 24 hours. Leave NG tube across the esophageal anastomosis and surgical service will direct timing of contrast study about 7 days following surgery. Continue with spontaneous breathing trials. 12/03: extubated yesterday. since then, has not followed commands, and does not talk. appears to have clinically an aphasia, although his uremia or severe hypoactive delirium could present this way. purposeful movements. will obtain MRI to rule out acute ischemia, as this appears to be a new mental status change (11/29 /[facility] notes state interactive on ventilator). Objective Vital Signs / I&O: Vital Signs 12/02/17 09:47 12/02/17 10:00 12/02/17 10:10 Temperature Pulse Rate 113 H 109 H Respiratory Rate 20 28 H Blood Pressure Pulse Oximetry 97 97 12/02/17 12:00 12/02/17 14:00 12/02/17 16:00 Temperature 36.9 C 37.2 C Pulse Rate 104 H 103 H 100 H Respiratory Rate 23 24 Blood Pressure Pulse Oximetry 94 L 98 12/02/17 17:52 12/02/17 18:00 12/02/17 19:57 Temperature Pulse Rate 93 H Respiratory Rate Blood Pressure Pulse Oximetry 100 99 12/02/17 20:00 12/02/17 21:00 12/03/17 00:00 Temperature 37.1 C 37.1 C Pulse Rate 92 H 90 Respiratory Rate 18 18 Blood Pressure 164/85 H 151/72 H 163/85 H Pulse Oximetry 100 98 12/03/17 04:00 12/03/17 08:45 Temperature 37.1 C Pulse Rate 90 Respiratory Rate 24 Blood Pressure 114/58 L Pulse Oximetry 94 L 95 Intake & Output 12/02/17 12/03/17 12/03/17 18:59 06:59 18:59 Intake Total 553 / 553 1752.7969 / 1752.7969 Output Total 125 / 125 170 / 170 Balance 428 / 428 1582.7969 / 1582.7969 Weight 96.5 kg Intake: IV 400 / 400 1634.7969 / 1634.7969 Intralipid 20% Inj 250 ML @ 31. 250 / 250 25 mls/hr IV.SIG Q24H COLE Rx#: [id number] Mycamine Inj 100 MG In NS Inj 100 / 100 100 ML @ 100 mls/hr IV.SIG Q24H COLE Rx#:[id number] Zosyn 2.25 GM Premix 50 ML @ 50 / 50 100 / 100 100 mls/hr IV.SIG Q8H COLE Rx#: [id number] Sodium Chloride 23.4% Inj 5.5 1034.7969 / 1034.7969 MEQ Sodium Acetate Inj 29.5 MEQ KCl Inj 20 MEQ Magnesium Chloride Inj 5 MEQ Calcium Chloride Inj 4.5 MEQ MVI-12 Inj 10 ML Folvite Inj 1 MG In Clinimix 5%/D20W Inj 1,000 ML @ 40.374 mls/hr IV.SIG Q24H COLE Rx#:[id number] fentaNYL 10 mcg/mL Premix Drip 250 / 250 250 / 250 2,500 mcg In 250 ml @ 50 MCG/HR 5 mls/hr IV.SIG TITRATE PRN Rx #:[id number] Tube Feeding 123 / 123 118 / 118 Tube Irrigant 30 / 30 Output: Urine 0 / 0 0 / 0 Wound Drainage 125 / 125 170 / 170 # 1 Right Abdomen 75 / 75 120 / 120 # 2 Right Abdomen 50 / 50 50 / 50 Other: # Bowel Movements 0 Result Diagrams: 12/03/17 04:52 12/03/17 04:52 Objective Remarks: GEN: Chronically ill-appearing, no distress HEENT: NCAT, pupils 2 mm and reactive bilaterally NECK: RIJ vasc-cath and LIJ TLC present, clean/ dry/ intact CARDIO: Borderline bradycardic to high 60s, no murmur, neck veins are full. PULM: equal chest rise. nc o2. ABD: Midline surgical bandages clean/ dry/ intact. ZAINAB #1 is anterior to esophagojejunostomy anastomosis, ZAINAB #2 posterior, both with serosanguineous drainage. Abdomen soft. Fascia is closed, skin is open, depth of wound is minimal. EXT/MSK: Anasarca SKIN: No rashes or lesions NEURO: Moves 4 limbs spontaneously. Purposeful with arms. nonverbal. tracks with eyes. does not follow commands. does not speak. PSYCH: Unable to assess Assessment and Plan - Problem List (1) Gastric perforation Code(s): K25.5 - Chronic or unspecified gastric ulcer with perforation Status : Acute (2) Status post total gastrectomy and Dinh-en-Y esophagojejunal anastomosis Code(s): Z90.3 - Acquired absence of stomach [part of]; Z98.0 - Intestinal bypass and anastomosis status Status: Acute (3) Ischemic hepatitis Code(s): K75.9 - Inflammatory liver disease, unspecified Status: Acute (4) Gastric necrosis Code(s): K31.89 - Other diseases of stomach and duodenum Status: Acute (5) Thrombocytopenia Code(s): D69.6 - Thrombocytopenia, unspecified Status: Acute (6) Acute bilateral deep vein thrombosis (DVT) of upper extremities Code(s): I82.623 - Acute embolism and thrombosis of deep veins of upper extremity, bilateral Status: Acute (7) Anemia Code(s): D64.9 - Anemia, unspecified Status: Acute (8) Leukocytosis Code(s): D72.829 - Elevated white blood cell count, unspecified Status: Acute (9) Candidemia Code(s): B37.7 - Candidal sepsis Status: Acute (10) On total parenteral nutrition (TPN) Code(s): Z78.9 - Other specified health status Status: Acute (11) Hx of cardiac arrest Code(s): Z86.74 - Personal history of sudden cardiac arrest Status: Resolved (12) Acute hemodialysis patient Code(s): Z99.2 - Dependence on renal dialysis Status: Acute (13) JACLYN (acute kidney injury) Code(s): N17.9 - Acute kidney failure, unspecified Status: Acute (14) Aspiration pneumonia Code(s): J69.0 - Pneumonitis due to inhalation of food and vomit Status: Acute (15) Acute respiratory failure Code(s): J96.00 - Acute respiratory failure, unspecified whether with hypoxia or hypercapnia Status: Acute - Assessment and Plan Plan: NEURO: ?Aphasia MRI today to rule out ischemia could be delirium vs. uremic encephalopathy RESP: Acute hypoxic and hypercarbic respiratory failure- resolving. extub 12/02 nc o2 aggressive pulmonary toilet oob to chair daily PT/OT CV: Cardiac arrest 11/23/17 (PEA arrest due to shock secondary to acute gastric perf and tension pneumoperitoneum) Septic shock, resolved Now off pressors Hemodynamic monitoring with L radial art line GI: s/p gastric perforation with tension pneumoperitoneum status post ex lap with primary repair of anterior gastric perforation with stapler 11/23 On second look 11/25 he was found to have gastric necrosis requiring subtotal gastrectomy and placement of Abthera VAC dressing. The bowel was in discontinuity and he was transferred to [facility]. On 11/28 he underwent reexploration with Dinh-en-y esophagojejunostomy, feeding jejunostomy placement, diagnostic EGD, primary fascial closure Gastric necrosis Ischemic hepatopathy NGT to LIWS, do not manipulate NGT per general surgery orders from [facility]. Has feeding jejunostomy and tube feeds with Nepro 10 mL per hour had been started at [facility], continue for now with further management per general surgery. ZAINAB drains in place #1 anterior to anastomosis, #2 posterior to the anastomosis. Management per general surgery. Continue TPN renal formula 46 mL/hr. Intermittent lipids daily. General surgery recs appreciated Had right upper quadrant ultrasound on 11/27/17 that demonstrated contracted gallbladder with sludge. No evidence of cholecystitis. Echogenicity in right liver related to focal fatty change or altered perfusion. Color Doppler interrogation through the region demonstrates patent vascularity. FEN/RENAL: JACLYN secondary to ischemic ATN HD as started 11/26 at [facility]. Had HD 3 hours on 11/28 at [facility] with 1700 mL UF; HD today Has Delgado in place currently. Has R IJ Vascath. Monitor I/O and electrolytes. Nephrology consult. prealbumin low at 14 on 12/01. trend weekly. ID: Gastric perforation with large amount particulate peritoneal contamination 11/23 Acute Aspiration pneumonia Candidemia - reportedly blood cultures at OSH were positive. Will request records from microbiology. Patient had been on micafungin 100 mg IV daily (started at [facility]) with last administration at 10 AM on 11/29. Was previously on diflucan IV. On Zosyn 2.25 IV every 8 hours with last administration 11/29 at noon. Will continue zosyn/micafungin. Patient was evaluated by ophthalmology prior to transfer. I do not see an ophthalmology note in the transfer documentation. I have requested this document. Requested culture data from [facility]. Send blood culture x2 sets now. Sputum culture 11/24 with pansensitive Klebsiella pneumonia ID consult HEME: Thrombocytopenia Bilateral upper extremity DVTs U/s 11/26 BUE - thrombus R axillary, brachial and basilic veins and thrombus in left axillary and left brachial veins. U/s bilateral lower extremities 11/26 at [facility] negative from common femoral to popliteal vein levels. Arrived on heparin drip Hematology consult was obtained at [facility] and recommended heparin drip and transfuse prn for platelets <50k. Will use target PTT 40-65 now, no boluses. Monitor CBC ENDO: Monitor Glucose q4 hours and use low dose insulin sliding scale as indicated. PROPH: Discontinue heparin drip and start subcu for DVT prophylaxis. Protonix 40 mg IV daily for stress ulcer prophylaxis. ACCESS: R IJ vascath , L IJ CVL, L radial art line. All existing lines were replaced at [facility]. FULL CODE (6) Acute bilateral deep vein thrombosis (DVT) of upper extremities Qualifiers: Affected thrombotic vein of extremity: brachial Qualified Code(s): I82.623 - Acute embolism and thrombosis of deep veins of upper extremity, bilateral (15) Acute respiratory failure Qualifiers: Respiratory failure complication: hypoxia Qualified Code(s): J96.01 - Acute respiratory failure with hypoxia
--- NOTE | 2017-12-03 10:53 | P.DIET ---
Nutritional Evaluation Type of nutrition evaluation: follow-up Nutrition consult regarding: Tube Feeding, TPN/PPN Nutrition screening: [facility] Screening comments: Re-admiited transfer from [facility]. Subjective Subjective Comments: Used ht from previous admission (75 inches). Objective - Diagnosis Gastroenteritis - Objective % IBW: 107 (IBW = 196#) Body Weight Used for Calculations: Actual (95.3 kg) Energy Needs - Lower Range (kCal/kg): 28 Energy Needs - Upper Range (kCal/kg): 32 Lower Limit kCal/kg (kCals): 2,668 Upper Limit kCal/kg (kCals): 3,050 Lower Limit Protein Factor (Grams per Kg): 1.2 Upper Limit Protein Factor (Grams per Kg): 1.5 Lower Protein Needs (Protein): 114 Upper Protein Needs (Protein): 143 Dietitian Reviewed in Medical Record: Curent medications, Intake & Output, Labs , Medical history, TPN/PPN, Tube feeding Diet Order: NPO Objective Comments: see recent extensive hx in H&P Labs: TG 99, BUN/creat 81/7.58, Est GFR 9, LFTs elev, glu 137 Feeding - Current Tube Feeding Tube Feeding Product: Nepro Tube Feeding Rate: 10 (mls/hr) Tube Feeding Route: jejunostomy Current kCals Provided by Tube Feedin Current Protein Provided by Tube Feeding (gPRO): 19 - Current TPN/PPN Current TPN: Clinimix 5/20 Current TPN/PPN Rate (ml/hr): 40 Amino Acid and Dextrose Current kCals Provided: 845 Amino Acid and Dextrose Current Protein Provided: 48 Current Lipid Concentration: 20% Current Lipids Rate: 250 mls daily over 8 hours Current kCal Provided by TPN/PPN: 1,345 Assessment Assessment: Pt receiving TPN/lipids and TF as above. He was extubated on 12/02. Pt is on dialysis. To meet 100% of needs while on trickle Nepro @ 10 mls/hr, will need to increase current TPN formula to 83 mls/hr. This will provide total nutrition of 2692 kcals and 119 gms protein. Labs, wts and clinical course reviewed. CBW = 96.5 kg. Recommendations: Nepro @ 10 mls/hr trickle TPN: Clinimix 5/20 @ 83 mls/hr Lipids: 20% lipids 250 mls/day Monitor glucose closely. Request weekly TG Dietitian to Monitor: Lab values, Intake & Output, Tube feeding tolerance, TPN/ PPN tolerance, Weight change, Medical course
--- NOTE | 2017-12-03 11:43 | P.PNNP ---
Subjective Interval history: He is anuric. Last dialyzed on Sunday. Will plan on dialyzing him every 2nd day. Extubated over the weekend. Physical Exam Vital signs: Vital Signs 12/02/17 12:00 12/02/17 14:00 12/02/17 16:00 Temperature 98.4 F 98.9 F Pulse Rate 104 H 103 H 100 H Respiratory Rate 23 24 Blood Pressure Pulse Oximetry 94 L 98 12/02/17 17:52 12/02/17 18:00 12/02/17 19:57 Temperature Pulse Rate 93 H Respiratory Rate Blood Pressure Pulse Oximetry 100 99 12/02/17 20:00 12/02/17 21:00 12/03/17 00:00 Temperature 98.8 F 98.7 F Pulse Rate 92 H 90 Respiratory Rate 18 18 Blood Pressure 164/85 H 151/72 H 163/85 H Pulse Oximetry 100 98 12/03/17 04:00 12/03/17 08:00 12/03/17 08:45 Temperature 98.8 F 99.1 F Pulse Rate 90 94 H Respiratory Rate 24 31 H Blood Pressure 114/58 L Pulse Oximetry 94 L 95 95 Intake & Output 12/02/17 12/03/17 12/03/17 18:59 06:59 18:59 Intake Total 553 / 553 1752.7969 / 1752.7969 Output Total 125 / 125 170 / 170 Balance 428 / 428 1582.7969 / 1582.7969 Weight 96.5 kg Intake: IV 400 / 400 1634.7969 / 1634.7969 Intralipid 20% Inj 250 ML @ 31. 250 / 250 25 mls/hr IV.SIG Q24H [facility] Rx#: [id number] Mycamine Inj 100 MG In NS Inj 100 / 100 100 ML @ 100 mls/hr IV.SIG Q24H [facility] Rx#:[id number] Zosyn 2.25 GM Premix 50 ML @ 50 / 50 100 / 100 100 mls/hr IV.SIG Q8H [facility] Rx#: [id number] Sodium Chloride 23.4% Inj 5.5 1034.7969 / 1034.7969 MEQ Sodium Acetate Inj 29.5 MEQ KCl Inj 20 MEQ Magnesium Chloride Inj 5 MEQ Calcium Chloride Inj 4.5 MEQ MVI-12 Inj 10 ML Folvite Inj 1 MG In Clinimix 5%/D20W Inj 1,000 ML @ 40.374 mls/hr IV.SIG Q24H [facility] Rx#:[id number] fentaNYL 10 mcg/mL Premix Drip 250 / 250 250 / 250 2,500 mcg In 250 ml @ 50 MCG/HR 5 mls/hr IV.SIG TITRATE PRN Rx #:[id number] Tube Feeding 123 / 123 118 / 118 Tube Irrigant 30 / 30 Output: Urine 0 / 0 0 / 0 Wound Drainage 125 / 125 170 / 170 # 1 Right Abdomen 75 / 75 120 / 120 # 2 Right Abdomen 50 / 50 50 / 50 Other: # Bowel Movements 0 Narrative: GENERAL: Alert, non verbal SKIN: Warm and dry. Abdominal dressing in place NECK: Supple, trachea midline. JVD distention CARDIOVASCULAR: Regular rate and rhythm without murmurs, gallops, or rubs. RESPIRATORY: Breath sounds diminished bilaterally. No accessory muscle use. GASTROINTESTINAL: Abdomen distended. Drains in place, dressing on. MUSCULOSKELETAL: No cyanosis, generalized edema - Urinary Catheter Management Indwelling Temp Sensing Catheter Cath placed during this visit: no Assessment and Plan - Assessment (1) JACLYN (acute kidney injury) Code(s): N17.9 - Acute kidney failure, unspecified Status: Acute Plan: Acute kidney injury most likely has developed ATN. Dialysis today. Monitor electrolytes and fluid status. Avoid nephrotoxic agents such as NSAIDs. Avoid Gadolinium. (2) Acute respiratory failure Code(s): J96.00 - Acute respiratory failure, unspecified whether with hypoxia or hypercapnia Status: Acute Qualifiers: Respiratory failure complication: hypoxia Qualified Code(s): J96.01 - Acute respiratory failure with hypoxia Plan: Extubated. (3) Gastric perforation Code(s): K25.5 - Chronic or unspecified gastric ulcer with perforation Status : Acute Plan: s/p surgery. Subtotal gastrectomy here. In s he had: Dinh-en-y esophagojejunostomy, feeding jejunostomy placement, diagnostic EGD, primary fascial closure. Date of procedure: 11/28/17 (4) Candidemia Code(s): B37.7 - Candidal sepsis Status: Acute Plan: On Micafungin. Patient is also on Zosyn. Dose medications appropriate to renal function. (5) DVT (deep venous thrombosis) Code(s): I82.409 - Acute embolism and thrombosis of unspecified deep veins of unspecified lower extremity Status: Acute Plan: On heparin drip. DVT of bilateral upper extremities.
--- NOTE | 2017-12-03 11:54 | MR ---
EXAM DATE: 12/03/2017 11:50 AM EDT AGE/SEX: 47 years / Male INDICATIONS: Aphasia. CLINICAL DATA: This is the patient's subsequent encounter. Patient reports that signs and symptoms h ave been present for 4 - 6 days and indicates a pain score of Nonresponsive. MEDICAL/SURGICAL HISTORY: Renal failure, acute. cardiac arrest, aspiration pneumonia . gastrec violet, Dinh en Y COMPARISON: No prior exams available for comparison. TECHNIQUE: Multiplanar, multisequence examination of the brain was performed without contrast. FINDINGS: Cerebrum: The ventricles are normal for age. No evidence of midline shift, mass lesion, hemorrhage or acute infarction. No extraaxial fluid collections are seen. The pituitary gland and suprasellar cistern are normal in configuration. White Matter: Very minimal nonspecific periventricular white matter changes. Posterior Fossa: The cerebellum and brainstem are intact. The 4th ventricle is midline. The cerebel lopontine angle is unremarkable. The cerebellar tonsils are normal in position. Diffusion Imaging: No focal areas of restricted diffusion are seen. No evidence of acute infarction . Extracranial: The visualized portions of the orbits and paranasal sinuses are unremarkable. CONCLUSION: 1. Minimal nonspecific periventricular white matter changes. 2. No restricted diffusion to suggest an acute ischemic event. 3. No evidence for significant ischemic changes. Electronically signed by: Dinesh Greer MD 12/03/2017 11:53 AM EDT
[2017-12-03] MEDS: Chlorhexidine 0.12% Oral Kit 15 ML UDC OROPHARYNG SCH ×2 (13:01→20:36)
[2017-12-03] MEDS: Calcium Acetate 667 MG Capsule PO SCH ×2 (13:01→17:03)
--- NOTE | 2017-12-03 13:16 | P.PNID ---
Subjective Remarks: Patient awake. Not verbalizing. However following commands. He appears comfortable He denies pain. Afebrile. CT scan of the head performed. Results pending. White blood cell count is still elevated. This is a 46-year-old black male who initially was admitted to the hospital on 11/22/2017. The patient was found to have no pneumoperitoneum on 11/23/2017. He presented with severe abdominal pain. He was also noted to have ischemia of the proximal two-thirds of the stomach and there was a large gastric perforation and contamination of food particles into the peritoneum. The patient ended up being transferred to [facility] in [place] and he underwent subtotal gastrectomy and Dinh-en-Y esophageal jejunostomy and a feeding jejunostomy tube placement. He was put on antifungal medication for candidemia. The results of the cultures are not available to me at this time. The culture reportedly was from [facility] in [place]. He was transferred back to [facility] on 11/29/2017 from [facility]. The reason for this consultation is for candidemia. During the hospitalization, the patient was also noted to have code blue PEA arrest and he underwent CPR. Allergies/Adverse Reactions: Allergies No Known Allergies Allergy (Verified 11/22/17 02:38) Objective Vital Signs 12/02/17 14:00 12/02/17 16:00 12/02/17 17:52 Temperature 98.9 F Pulse Rate 103 H 100 H Respiratory Rate 24 Blood Pressure Pulse Oximetry 98 100 12/02/17 18:00 12/02/17 19:57 12/02/17 20:00 Temperature 98.8 F Pulse Rate 93 H 92 H Respiratory Rate 18 Blood Pressure 164/85 H Pulse Oximetry 99 100 12/02/17 21:00 12/03/17 00:00 12/03/17 04:00 Temperature 98.7 F 98.8 F Pulse Rate 90 90 Respiratory Rate 18 24 Blood Pressure 151/72 H 163/85 H 114/58 L Pulse Oximetry 98 94 L 12/03/17 08:00 12/03/17 08:45 Temperature 99.1 F Pulse Rate 94 H Respiratory Rate 31 H Blood Pressure Pulse Oximetry 95 95 Intake & Output 12/02/17 12/03/17 12/03/17 18:59 06:59 18:59 Intake Total 553 / 553 1752.7969 / 1752.7969 Output Total 125 / 125 170 / 170 Balance 428 / 428 1582.7969 / 1582.7969 Weight 96.5 kg Intake: IV 400 / 400 1634.7969 / 1634.7969 Intralipid 20% Inj 250 ML @ 31. 250 / 250 25 mls/hr IV.SIG Q24H [facility] Rx#: [id number] Mycamine Inj 100 MG In NS Inj 100 / 100 100 ML @ 100 mls/hr IV.SIG Q24H [facility] Rx#:[id number] Zosyn 2.25 GM Premix 50 ML @ 50 / 50 100 / 100 100 mls/hr IV.SIG Q8H [facility] Rx#: [id number] Sodium Chloride 23.4% Inj 5.5 1034.7969 / 1034.7969 MEQ Sodium Acetate Inj 29.5 MEQ KCl Inj 20 MEQ Magnesium Chloride Inj 5 MEQ Calcium Chloride Inj 4.5 MEQ MVI-12 Inj 10 ML Folvite Inj 1 MG In Clinimix 5%/D20W Inj 1,000 ML @ 40.374 mls/hr IV.SIG Q24H [facility] Rx#:[id number] fentaNYL 10 mcg/mL Premix Drip 250 / 250 250 / 250 2,500 mcg In 250 ml @ 50 MCG/HR 5 mls/hr IV.SIG TITRATE PRN Rx #:[id number] Tube Feeding 123 / 123 118 / 118 Tube Irrigant 30 / 30 Output: Urine 0 / 0 0 / 0 Wound Drainage 125 / 125 170 / 170 # 1 Right Abdomen 75 / 75 120 / 120 # 2 Right Abdomen 50 / 50 50 / 50 Other: # Bowel Movements 0 11/30/17 13:33 Blood - Peripheral Aerobic Blood Culture - Preliminary No growth in 3 days 11/30/17 13:33 Blood - Peripheral Anaerobic Blood Culture - Preliminary No growth in 3 days 11/30/17 03:19 Blood - Peripheral Aerobic Blood Culture - Preliminary No growth in 3 days 11/30/17 03:19 Blood - Peripheral Anaerobic Blood Culture - Preliminary No growth in 3 days Lab - Hematology Results 12/01/17 12/02/17 12/02/17 19:43 00:00 04:37 WBC 24.0 H 26.4 H RBC 2.97 L 3.07 L Hgb 9.7 L D 9.4 L 9.4 L Hct 26.2 L 27.2 L MCV 88.3 88.5 MCH 31.5 30.8 MCHC 35.7 34.8 RDW 14.5 14.8 Plt Count 79 L 85 L MPV 12.8 H 12.0 H Prelim Diff (Auto) Slide review pending Neut % (Auto) 87.6 H Lymph % (Auto) 7.3 L Leon % (Auto) 3.7 Eos % (Auto) 1.0 Baso % (Auto) 0.4 Neut # (Auto) 23.1 H Lymph # (Auto) 1.9 Leon # (Auto) 1.0 H Eos # (Auto) 0.3 Baso # (Auto) 0.1 WBC Differential Manual diff final Seg Neuts % (Manual) 80 H Band Neuts % (Manual) 10 H Lymphocytes % (Manual) 3 L Monocytes % (Manual) 1 Metamyelocytes % (Man) 3 H Myelocytes % (Man) 3 H Abs Neuts (Manual) 25.3 H Differential Comment . Toxic Granulation Platelet Estimate Low L Platelet Morphology Enlarged H Keratocytes Occ H 12/03/17 04:52 WBC 27.9 H RBC 2.78 L Hgb 8.4 L Hct 24.7 L MCV 88.9 MCH 30.3 MCHC 34.1 RDW 15.0 Plt Count 114 L D MPV 12.5 H Prelim Diff (Auto) Slide review pending Neut % (Auto) 89.6 H Lymph % (Auto) 4.4 L Leon % (Auto) 5.0 Eos % (Auto) 0.7 Baso % (Auto) 0.3 Neut # (Auto) 25.0 H Lymph # (Auto) 1.2 Leon # (Auto) 1.4 H Eos # (Auto) 0.2 Baso # (Auto) 0.1 WBC Differential Manual diff final Seg Neuts % (Manual) 84 H Band Neuts % (Manual) 8 H Lymphocytes % (Manual) 2 L Monocytes % (Manual) 3 Metamyelocytes % (Man) 1 Myelocytes % (Man) 2 H Abs Neuts (Manual) 26.5 H Differential Comment . Toxic Granulation 1+ H Platelet Estimate Low L Platelet Morphology Normal Keratocytes Lab - Chemistry Results 12/01/17 12/01/17 12/01/17 16:40 19:43 21:39 Sodium 140 Potassium 3.5 Chloride 102 Carbon Dioxide 28.9 Anion Gap 9 BUN 56 H Creatinine 5.77 H Estimated GFR 13 L POC Glucose 102 120 H Random Glucose 112 H Calcium 7.6 L Prot Corrected Calcium Phosphorus Magnesium 2.3 Total Bilirubin AST ALT Alkaline Phosphatase Total Protein Albumin 12/02/17 12/02/17 12/02/17 04:37 08:52 13:16 Sodium 139 Potassium 3.6 Chloride 102 Carbon Dioxide 25.9 Anion Gap 11 BUN 58 H Creatinine 6.17 H Estimated GFR 12 L POC Glucose 125 H 133 H Random Glucose 122 H Calcium 7.2 L* Prot Corrected Calcium 8.3 L Phosphorus 2.7 Magnesium 2.3 Total Bilirubin 3.1 H AST 128 H ALT 216 H Alkaline Phosphatase 70 Total Protein 5.1 L Albumin 1.5 L 12/02/17 12/03/17 12/03/17 16:31 04:52 08:50 Sodium 137 Potassium 4.5 D Chloride 100 Carbon Dioxide 24.7 Anion Gap 12 BUN 81 H Creatinine 7.58 H Estimated GFR 9 L POC Glucose 116 H 143 H Random Glucose 137 H Calcium 8.1 L D Prot Corrected Calcium Phosphorus 5.2 H D Magnesium 2.5 Total Bilirubin 2.8 H AST 170 H ALT 212 H Alkaline Phosphatase 83 Total Protein 5.6 L Albumin 1.7 L Imaging: ITS Impressions Chest X-Ray 11/29/17 19:18 CONCLUSION: NG tip near GE junction. Basilar airspace disease and pleural effusions similar to prior exam. Head MRI 12/03/17 00:00 CONCLUSION: 1. Minimal nonspecific periventricular white matter changes. 2. No restricted diffusion to suggest an acute ischemic event. 3. No evidence for significant ischemic changes. Physical Exam: PHYSICAL EXAMINATION: GENERAL: Patient in no acute distress. HEENT: Head is atraumatic. Extraocular movements grossly intact, pupils reactive to light. No icterus. NECK: Supple without adenopathy or swelling. LUNGS: Decreased breath sounds. HEART: Regular S1, S2. No audible murmur. ABDOMEN: Midline abdominal incision intact. ZAINAB tubes exits the right abdomen and has serosanguineous drainage. EXTREMITIES: No clubbing or cyanosis. Swelling of the upper extremities. SKIN: No diffuse rash. NEUROLOGIC: Nonfocal. PSYCHIATRIC: Unable to assess. Assessment and Plan - Plan IMPRESSION: 1. Candidemia following gastric perforation and gastric ischemia. Blood culture at [facility] in [place] on 11/26 had Starr glabrata. 2. Status post abdominal surgery. 3. Acute respiratory failure. 4. Acute kidney disease. 5. Recent cardiac arrest. 6. Leukocytosis. RECOMMENDATIONS: 1. Continue micafungin for candidemia. 2. Continue piperacillin/tazobactam. 3. Monitor white blood cell count. 4. Monitor the temperature.
[2017-12-03] MEDS: Heparin 10,000 UNITS/10 ML Vial (for IV use) OTHER PRN (14:50)
--- NOTE | 2017-12-03 18:03 | P.PNGS ---
Subjective Interval history: Nonverbal Answering yes and no questions SVETLANA Hernandez at bedside Physical Exam Vital signs: Vital Signs 12/02/17 19:57 12/02/17 20:00 12/02/17 21:00 Temperature 98.8 F Pulse Rate 92 H Respiratory Rate 18 Blood Pressure 164/85 H 151/72 H Pulse Oximetry 99 100 12/03/17 00:00 12/03/17 04:00 12/03/17 08:00 Temperature 98.7 F 98.8 F 99.1 F Pulse Rate 90 90 94 H Respiratory Rate 18 24 31 H Blood Pressure 163/85 H 114/58 L Pulse Oximetry 98 94 L 95 12/03/17 08:45 12/03/17 12:00 Temperature 99.3 F Pulse Rate 94 H Respiratory Rate 31 H Blood Pressure Pulse Oximetry 95 95 Intake & Output 12/02/17 12/03/17 12/03/17 18:59 06:59 18:59 Intake Total 553 / 553 1752.7969 / 1752.7969 Output Total 125 / 125 170 / 170 5000 / 5000 Balance 428 / 428 1582.7969 / 1582.7969 -5000 / -5000 Weight 96.5 kg Intake: IV 400 / 400 1634.7969 / 1634.7969 Intralipid 20% Inj 250 ML @ 31. 250 / 250 25 mls/hr IV.SIG Q24H [facility] Rx#: [id number] Mycamine Inj 100 MG In NS Inj 100 / 100 100 ML @ 100 mls/hr IV.SIG Q24H [facility] Rx#:[id number] Zosyn 2.25 GM Premix 50 ML @ 50 / 50 100 / 100 100 mls/hr IV.SIG Q8H [facility] Rx#: [id number] Sodium Chloride 23.4% Inj 5.5 1034.7969 / 1034.7969 MEQ Sodium Acetate Inj 29.5 MEQ KCl Inj 20 MEQ Magnesium Chloride Inj 5 MEQ Calcium Chloride Inj 4.5 MEQ MVI-12 Inj 10 ML Folvite Inj 1 MG In Clinimix 5%/D20W Inj 1,000 ML @ 40.374 mls/hr IV.SIG Q24H [facility] Rx#:[id number] fentaNYL 10 mcg/mL Premix Drip 250 / 250 250 / 250 2,500 mcg In 250 ml @ 50 MCG/HR 5 mls/hr IV.SIG TITRATE PRN Rx #:[id number] Tube Feeding 123 / 123 118 / 118 Tube Irrigant 30 / 30 Output: Urine 0 / 0 0 / 0 Hemodialysis Amount 5000 / 5000 Wound Drainage 125 / 125 170 / 170 # 1 Right Abdomen 75 / 75 120 / 120 # 2 Right Abdomen 50 / 50 50 / 50 Other: Date of Last Bowel Movement 12/03/17 # Bowel Movements 0 Narrative: Alert; awake; nonverbal Cardiac: RRR Resp: CTAB Abd: all dressings removed; midline open incision---- wet to dry dressing placed ; ABD over; Dressing around J tube changed; two ZAINAB drains in place--- both with serosanguineous drainage; abdomen soft; non tender; several areas of skin irritation likely secondary to adhesive irritation BUE edema - Urinary Catheter Management Indwelling Temp Sensing Catheter Cath placed during this visit: no Results - Labs 12/04/17 04:00 12/04/17 04:00 Laboratory Results - last 24 hr 12/03/17 12/03/17 12/03/17 04:52 04:52 08:50 WBC 27.9 H RBC 2.78 L Hgb 8.4 L Hct 24.7 L MCV 88.9 MCH 30.3 MCHC 34.1 RDW 15.0 Plt Count 114 L D MPV 12.5 H Prelim Diff (Auto) Slide review pending Neut % (Auto) 89.6 H Lymph % (Auto) 4.4 L [place] % (Auto) 5.0 Eos % (Auto) 0.7 Baso % (Auto) 0.3 Neut # (Auto) 25.0 H Lymph # (Auto) 1.2 [place] # (Auto) 1.4 H Eos # (Auto) 0.2 Baso # (Auto) 0.1 WBC Differential Manual diff final Seg Neuts % (Manual) 84 H Band Neuts % (Manual) 8 H Lymphocytes % (Manual) 2 L Monocytes % (Manual) 3 Metamyelocytes % (Man) 1 Myelocytes % (Man) 2 H Abs Neuts (Manual) 26.5 H Differential Comment . Toxic Granulation 1+ H Platelet Estimate Low L Platelet Morphology Normal Sodium 137 Potassium 4.5 D Chloride 100 Carbon Dioxide 24.7 Anion Gap 12 BUN 81 H Creatinine 7.58 H Estimated GFR 9 L POC Glucose 143 H Random Glucose 137 H Calcium 8.1 L D Phosphorus 5.2 H D Magnesium 2.5 Total Bilirubin 2.8 H AST 170 H ALT 212 H Alkaline Phosphatase 83 Total Protein 5.6 L Albumin 1.7 L 12/03/17 12/03/17 13:08 17:44 WBC RBC Hgb Hct MCV MCH MCHC RDW Plt Count MPV Prelim Diff (Auto) Neut % (Auto) Lymph % (Auto) [place] % (Auto) Eos % (Auto) Baso % (Auto) Neut # (Auto) Lymph # (Auto) [place] # (Auto) Eos # (Auto) Baso # (Auto) WBC Differential Seg Neuts % (Manual) Band Neuts % (Manual) Lymphocytes % (Manual) Monocytes % (Manual) Metamyelocytes % (Man) Myelocytes % (Man) Abs Neuts (Manual) Differential Comment Toxic Granulation Platelet Estimate Platelet Morphology Sodium Potassium Chloride Carbon Dioxide Anion Gap BUN Creatinine Estimated GFR POC Glucose 124 H 155 H Random Glucose Calcium Phosphorus Magnesium Total Bilirubin AST ALT Alkaline Phosphatase Total Protein Albumin - Imaging Imaging: ITS Impressions Chest X-Ray 11/29/17 19:18 CONCLUSION: NG tip near GE junction. Basilar airspace disease and pleural effusions similar to prior exam. Head MRI 12/03/17 00:00 CONCLUSION: 1. Minimal nonspecific periventricular white matter changes. 2. No restricted diffusion to suggest an acute ischemic event. 3. No evidence for significant ischemic changes. Assessment and Plan - Assessment (1) Gastric perforation Code(s): K25.5 - Chronic or unspecified gastric ulcer with perforation Status : Acute Plan: 47yo male s/p Exlap and gastrectomy for gastric perforation, s/p esophagojejunostomy at [facility] -S/p head MRI---no evidence of ischemic event -Extubated; stable on NC -Dressing changed; change wet to dry daily to midline incision and PRN -Will order abdominal binder -Continue NG and tube feeds with Jtube -Continue routine ZAINAB care -Bree Truong -Family at bedside --- updated - Plan I personally evaluated the patient in room 1313. He appears awake and alert but does not respond verbally to questioning. He is attentive to his mother at the bedside who has dementia and has no relaxed recollection of why her son is in the hospital. His lung sounds are clear. His heart sounds are regular. His midline incision has a wet-to-dry dressing in place with minimal bloody drainage. His skin actually looks okay a little bit of superficial epidermis is gone from previous adhesive but there are no sign of cellulitis or inflammation or infection. Right lower quadrant drains are draining serosanguineous fluid. His extremities are nonedematous. He is a J-tube in place for feeding purposes. He is postop from [place] esophagojejunostomy. We will continue to follow him as he heals from his surgery. The exam, history, and the medical decision-making described in the above note were completed with the assistance of the mid-level provider. I reviewed and agree with the findings presented. I attest that I had a [id number] encounter with the patient on the same day, and personally performed and documented my assessment and findings in the medical record.
[2017-12-03 23:37] LABS: Hemoglobin 8.4 gm/dL (13.0-17.0); Mean Corpuscular Hemoglobin 31.6 pg (27.0-34.0); Mean Corpuscular Volume 86.3 fL (80.0-100.0); Mean Platelet Volume 12.2 fL (7.0-11.0); Platelet Count 167 th/mm3 (150-450); Red Blood Count 2.66 mil/mm3 (4.50-5.90); White Blood Count 28.4 th/mm3 (4.0-11.0)
[2017-12-03 23:42] LABS: ABG Base Excess 1.7 mmol/L (-2-2)
[2017-12-03 23:42] LABS: Activated Partial Thrombo Time 28.2 sec (24.3-30.1); INR 1.1 Ratio; Prothrombin Time 10.8 sec (9.8-11.6)
[2017-12-03 23:43] LABS: ABG PCO2 45 mmHg (38-42); ABG PO2 107 mmHg (61-120)
[2017-12-03] MEDS ORDERED: Atropine Inj 1 MG/10 ML Syringe ONE (23:45)
[2017-12-03 23:56] LABS: Mean Corpuscular HGB Conc 36.7 % (32.0-36.0)
[2017-12-03] MEDS ORDERED: Etomidate Inj 40 MG/20 ML Vial IV.PUSH ONE (23:58)
[2017-12-03] MEDS ORDERED: Midazolam Inj 5 MG/ML 1 ML Vial ONE (23:58)
[2017-12-04] MEDS ORDERED: Etomidate Inj 20 MG/10 ML Ampul IV.PUSH ONE (00:30)
--- NOTE | 2017-12-04 00:38 | P.PCN ---
Date of procedure: 12/04/17 Pre-op diagnosis: Acute hypoxic respiratory failure Post-op diagnosis: same Procedure: Patient suddenly became hypoxemic placed on 100% nonrebreather with sats improving only to 80%. Not a candidate for BiPAP due to recent abdominal surgery and questionable airway protection. Procedure: the patient was on cardiac nurse specialist including continuous pulse oximetry. Rapid Sequence Intubation was conducted. The patient received 20 mg etomidate IV, 5 mg Versed IV, for induction along with 50 mg mg of rocuronium IV for adequate paralysis. Cricoid pressure was maintained from time induction agent was given to time of cuff balloon inflation. Using a direct laryngoscopy MAC 4 blade grade 1 view was obtained and a size 8.0 endotracheal tube with stylet was placed on the first attempt.there was significant amount of coffee ground material pooling in the posterior pharynx and glottic opening indicating that patient most likely aspirated. The stylet was removed and cuff balloon was inflated. Appropriate endotracheal tube position was confirmed by direct visualization of vocal cord passage, fogging of the tube, CO2 colometric indicator and symmetric breath sounds. The tube was secured at 23 cm at the lips. Post intubation chest x-ray is pending at this time. Anesthesia: GETA Surgeon: Kaitlynn Baocn Estimated blood loss (mL): 0 Pathology: other Condition: critical Disposition: ICU (sputum culture)
--- NOTE | 2017-12-04 00:51 | XR ---
EXAM DATE: 12/04/2017 12:43 AM EDT AGE/SEX: 47 years / Male INDICATIONS: Respiratory distress. ET tube placement. CLINICAL DATA: This is the patient's subsequent encounter. Patient reports that signs and symptoms h ave been present for 1 week and indicates a pain score of Nonresponsive. MEDICAL/SURGICAL HISTORY: . Renal failure, acute. cardiac arrest, aspiration pneumonia . . ga strectomy, Dinh en Y COMPARISON: [facility], CHEST 1V SINGLE AP, 11/29/2017. . FINDINGS: Parenchymal consolidation and small effusions again seen at both lung bases, left more so than right and not significantly changed. No pneumothorax seen. Heart size stable, within normal limits. Endotracheal tube tip is approximately 2.7 cm above the [place]. Bilateral internal jugular central ve nous catheters are again seen with tips in the superior vena cava. CONCLUSION: 1. No significant change left greater than the right consolidation and effusions at the bases. 2. Lines and tubes as above. Endotracheal tube tip is approximately 2.7 cm above the [place]. Electronically signed by: Jordi James MD 12/04/2017 12:50 AM EDT
[2017-12-04] MEDS: Midazolam 50 MG/50 ML Inj 50 MG/50 ML BAG IV.CONT PRN ×5 (01:00→23:06)
[2017-12-04] MEDS: Insulin NovoLOG Aspart Correctional Sugar Inj SQ SCH ×6 (01:05→21:00)
[2017-12-04 01:56] LABS: ABG Base Excess -0.3 mmol/L (-2-2); ABG PCO2 57 mmHg (38-42); ABG PO2 270 mmHg (61-120)
--- NOTE | 2017-12-04 02:04 | CT ---
EXAM DATE: 12/04/2017 1:51 AM EDT AGE/SEX: 47 years / Male INDICATIONS: Evaluate for bleeding. CLINICAL DATA: This is the patient's initial encounter. Patient reports that signs and symptoms have been present for 1 day and indicates a pain score of Nonresponsive. MEDICAL/SURGICAL HISTORY: . Perforated bowel. . Gastrectomy. ORAL CONTRAST: No oral contrast ingested. RADIATION DOSE: 12.65 CTDI (mGy) ; Combined studies COMPARISON: No prior exams available for comparison. TECHNIQUE: Multiple contiguous axial images were obtained through the abdomen and pelvis following b olus infusion of 92 ml Omnipaque 350 (iohexol) nonionic water-soluble contrast as a cumulative dose for multiple exams. No oral contrast ingested. Using automated exposure control and adjustment of t he mA and/or kV according to patient size, radiation dose was kept as low as reasonably achievable to obtain optimal diagnostic quality images. DICOM format image data is available electronically for r eview and comparison. FINDINGS: Since the prior CT, patient has had a midline laparotomy and partial gastric resection. An apparent R oux-en-Y. Surgical drains are present. There is also a jejunostomy tube. Small ascites. No organized fluid collections are demonstrated. There is dilatation of the duodenum and proximal jejunum. Ileum is decompressed. Transition appears t o be in the left mid abdomen. No perceptible mass. There is wall thickening of the colon. No acute abnormality seen of the liver, spleen, pancreas, adrenal glands or kidneys. CONCLUSION: 1. Interim midline laparotomy and gastrectomy with apparent Dinh-en-Y. 2. Bowel gas pattern consistent with obstruction of the duodenum and proximal jejunum. I don't see a mass. There does seem to be some jejunal wall thickening around the jejunostomy tube. 3. Wall thickening and mucosal enhancement of the colon consistent with moderate severity colitis. C . difficile colitis would be in the differential. 4. Solid organs are within normal limits. 5. Small ascites. Also diffuse body wall edema/anasarca. No perceptible hemorrhage. Electronically signed by: Jordi James MD 12/04/2017 2:03 AM EDT
--- NOTE | 2017-12-04 02:09 | CT ---
EXAM DATE: 12/04/2017 1:51 AM EDT AGE/SEX: 47 years / Male INDICATIONS: Evaluate for bleeding. CLINICAL DATA: This is the patient's initial encounter. Patient reports that signs and symptoms have been present for 1 day and indicates a pain score of Nonresponsive. MEDICAL/SURGICAL HISTORY: . Perforated bowel. . Gastrectomy. RADIATION DOSE: 12.65 CTDI (mGy) ; Combined studies COMPARISON: No prior exams available for comparison. TECHNIQUE: Multiple contiguous axial images were obtained through the chest during bolus infusion of 92 ml Omnipaque 350 (iohexol) nonionic water-soluble contrast as a cumulative dose for multiple exa ms. Images were obtained in suspended respiration using multiple row detector helical technique. U sing automated exposure control and adjustment of the mA and/or kV according to patient size, radiati on dose was kept as low as reasonably achievable to obtain optimal diagnostic quality images. DICOM format image data is available electronically for review and comparison. FINDINGS: Small right and rleer-cy-coasekeu left pleural effusions are present. There is dependent/compressive atelectasis of both lower lobes. No pneumothorax. Heart size within normal limits. No mediastinal or hilar adenopathy. Esophagus is mildly distended and fluid-filled. There is a nasogastric tube with tip near the gastroe sophageal junction. There is chest wall edema. No hematoma demonstrated. CONCLUSION: 1. Left greater than right pleural effusions and basilar atelectasis. 2. No hemorrhage or hematoma demonstrated. 3. Distended and fluid-filled esophagus. No wall thickening. Patient is status post gastrectomy. Les ogastric tube is at the GE junction. 4. Body wall edema/anasarca. Electronically signed by: Jordi James MD 12/04/2017 2:08 AM EDT
[2017-12-04] MEDS: Chlorhexidine Gluconate 2% 1 Pack (2 Cloths) TOPICAL SCH (04:00)
[2017-12-04 04:09] LABS: Baso # (Auto) 0.1 th/mm3 (0.0-0.2); Baso % (Auto) 0.4 % (0.0-2.0); Eos # (Auto) 0.1 th/mm3 (0.0-0.4); Eos % (Auto) 0.4 % (0.0-4.0); Hematocrit 22.3 % (39.0-51.0); Hemoglobin 8.1 gm/dL (13.0-17.0); Lymph # (Auto) 1.1 th/mm3 (1.0-4.8); Lymph % (Auto) 3.8 % (9.0-44.0); Mean Corpuscular HGB Conc 36.1 % (32.0-36.0); Mean Corpuscular Hemoglobin 31.4 pg (27.0-34.0); Mean Platelet Volume 11.2 fL (7.0-11.0); Mono # (Auto) 2.2 th/mm3 (0.0-0.9); Mono % (Auto) 7.8 % (0.0-8.0); Neut # (Auto) 24.4 th/mm3 (1.8-7.7); Neut % (Auto) 87.6 % (16.0-70.0); Platelet Count 177 th/mm3 (150-450); Red Blood Count 2.57 mil/mm3 (4.50-5.90); White Blood Count 27.9 th/mm3 (4.0-11.0)
[2017-12-04 04:34] LABS: Alanine Aminotransferase 246 U/L (12-78); Albumin 1.7 g/dL (3.4-5.0); Anion Gap 12 meq/L (5-15); Aspartate Aminotransferase 218 U/L (15-37); Blood Urea Nitrogen 72 mg/dL (7-18); Calcium 7.9 mg/dL (8.5-10.1); Carbon Dioxide 27.1 meq/L (21.0-32.0); Chloride 98 meq/L (98-107); Glomerular Filtration Rate 11 mL/min (>89); Glucose,Random 134 mg/dL (74-106); Magnesium 2.6 mg/dL (1.5-2.5); Phosphorus 5.8 mg/dL (2.5-4.9); Potassium 4.5 meq/L (3.5-5.1); Sodium 137 meq/L (136-145)
[2017-12-04 04:36] LABS: Alkaline Phosphatase 136 U/L (45-117); Total Protein 5.9 g/dL (6.4-8.2)
[2017-12-04 05:01] LABS: ABG Base Excess -0.5 mmol/L (-2-2); ABG PCO2 43 mmHg (38-42); ABG PO2 217 mmHg (61-120)
[2017-12-04] MEDS: Oral Hygiene Kit OROPHARYNG SCH ×7 (05:32→18:03)
[2017-12-04] MEDS: Piperacil/Tazo 2.25 GM Premix 50 ML IV.SIG SCH ×3 (05:32→21:35)
[2017-12-04 05:41] LABS: Lymphocytes 3 % (9-44); Metamyelocytes 4 % (0-1); Monocytes 7 % (0-8); Platelet Estimate Normal (Normal); Tallied Nucleated RBC 1 (0-0)
[2017-12-04 05:42] LABS: Acanthocytes Occ; Dohle Bodies Present; Toxic Granulation 1+
[2017-12-04] MEDS: Chlorhexidine 0.12% Oral Kit 15 ML UDC OROPHARYNG SCH ×4 (08:00→21:34)
--- NOTE | 2017-12-04 08:33 | P.PNGS ---
Subjective Patient reports: other (Intubated overnight due to copious amounts of emesis to protect his airway. Suspicion for aspiration.) Physical Exam Vital signs: Vital Signs 12/03/17 08:45 12/03/17 12:00 12/03/17 16:00 Temperature 99.3 F 99.5 F Pulse Rate 94 H 102 H Respiratory Rate 31 H 30 H Blood Pressure Pulse Oximetry 95 95 99 12/03/17 20:00 12/03/17 21:00 12/04/17 00:00 Temperature 99.1 F 97.9 F Pulse Rate 102 H 92 H Respiratory Rate 31 H 20 Blood Pressure 188/85 H Pulse Oximetry 100 93 L 85 L 12/04/17 00:23 12/04/17 00:50 12/04/17 01:25 Temperature Pulse Rate 102 H Respiratory Rate 16 16 Blood Pressure Pulse Oximetry 99 100 12/04/17 03:36 12/04/17 04:00 12/04/17 04:02 Temperature 98.4 F Pulse Rate 97 H 100 H Respiratory Rate 26 H 22 23 Blood Pressure Pulse Oximetry 100 100 12/04/17 07:32 12/04/17 07:54 Temperature Pulse Rate 84 Respiratory Rate 22 22 Blood Pressure Pulse Oximetry 100 Intake & Output 12/03/17 12/04/17 12/04/17 18:59 06:59 18:59 Intake Total 468 / 468 1484.7969 / 1484.7969 1100 / 1100 Output Total 97219 / 57340 1200 / 1200 Balance -82621 / -88601 284.7969 / 284.7969 1100 / 1100 Weight 84.6 kg Intake: IV 300 / 300 1434.7969 / 1434.7969 1100 / 1100 Versed Inj 50 mg In 50 ml @ 2 50 / 50 MG/HR 2 mls/hr IV.CONT TITRATE PRN Rx#:[id number] Intralipid 20% Inj 250 ML @ 31. 250 / 250 25 mls/hr IV.SIG Q24H COLE Rx#: [id number] Mycamine Inj 100 MG In NS Inj 100 / 100 100 ML @ 100 mls/hr IV.SIG Q24H COLE Rx#:[id number] Zosyn 2.25 GM Premix 50 ML @ 50 / 50 100 / 100 100 mls/hr IV.SIG Q8H COLE Rx#: [id number] Sodium Chloride 23.4% Inj 5.5 1034.7969 / 1034.7969 MEQ Sodium Acetate Inj 29.5 MEQ KCl Inj 20 MEQ Magnesium Chloride Inj 5 MEQ Calcium Chloride Inj 4.5 MEQ MVI-12 Inj 10 ML Folvite Inj 1 MG In Clinimix 5%/D20W Inj 1,000 ML @ 40.374 mls/hr IV.SIG Q24H COLE Rx#:[id number] fentaNYL 10 mcg/mL Premix Drip 250 / 250 2,500 mcg In 250 ml @ 50 MCG/HR 5 mls/hr IV.SIG TITRATE PRN Rx #:[id number] NS Inj 1,000 ML @ As Directed 1000 / 1000 OTHER .Q0M PRN Rx#:[id number] Tube Feeding 108 / 108 50 / 50 Tube Irrigant 60 / 60 Output: Urine 0 / 0 0 / 0 Hemodialysis Amount 04295 / 33504 Wound Drainage 500 / 500 1200 / 1200 # 1 Right Abdomen 300 / 300 75 / 75 # 2 Right Abdomen 200 / 200 1125 / 1125 Other: Date of Last Bowel Movement 12/03/17 12/04/17 # Bowel Movements 2 3 Narrative: Ventilated and sedated. Endotracheally intubated. Nasogastric tube in place in distal esophagus. Connected to suction and a dark fluid coming out. Equal bilateral breath sounds anteriorly. Heart sounds regular. Abdomen is thin and soft and quiet. Midline incision is very superficial and clean. Some bloody drainage on dressings. ZAINAB is draining cyst serosanguineous Octaviano-Aid consistency pink fluid. J-tube in place without complication and J-tube site. Extremities moderately edematous. Sequential compression device on lower extremities. - Urinary Catheter Management Indwelling Temp Sensing Catheter Cath placed during this visit: no Results - Labs 12/04/17 04:00 12/04/17 04:00 Laboratory Results - last 24 hr 12/01/17 12/03/17 12/03/17 22:17 08:50 13:08 WBC RBC Hgb Hct MCV MCH MCHC RDW Plt Count MPV Prelim Diff (Auto) Neut % (Auto) Lymph % (Auto) [place] % (Auto) Eos % (Auto) Baso % (Auto) Neut # (Auto) Lymph # (Auto) [place] # (Auto) Eos # (Auto) Baso # (Auto) WBC Differential Seg Neuts % (Manual) Band Neuts % (Manual) Lymphocytes % (Manual) Monocytes % (Manual) Metamyelocytes % (Man) Abs Neuts (Manual) Nucleated RBCs/100 WBC Differential Comment Toxic Granulation Dohle Bodies Platelet Estimate Platelet Morphology Acanthocytes (Spur) Keratocytes PT INR APTT Puncture Site Patient Temperature O2 Saturation ABG pH ABG pCO2 ABG pO2 ABG HCO3 ABG O2 Content ABG Base Excess ABG Methemoglobin Mars Test Hemoglobin Carboxyhemoglobin O2 Delivery Device Liter Flow Vent Setting Inspired O2 Critical Value Sodium Potassium Chloride Carbon Dioxide Anion Gap BUN Creatinine Estimated GFR POC Glucose 143 H 124 H Random Glucose Calcium Phosphorus Magnesium Total Bilirubin AST ALT Alkaline Phosphatase Total Protein Albumin Blood Type MTS Gel Crossmatch See Detail 12/03/17 12/03/17 12/03/17 17:44 20:32 23:17 WBC RBC Hgb Hct MCV MCH MCHC RDW Plt Count MPV Prelim Diff (Auto) Neut % (Auto) Lymph % (Auto) [place] % (Auto) Eos % (Auto) Baso % (Auto) Neut # (Auto) Lymph # (Auto) [place] # (Auto) Eos # (Auto) Baso # (Auto) WBC Differential Seg Neuts % (Manual) Band Neuts % (Manual) Lymphocytes % (Manual) Monocytes % (Manual) Metamyelocytes % (Man) Abs Neuts (Manual) Nucleated RBCs/100 WBC Differential Comment Toxic Granulation Dohle Bodies Platelet Estimate Platelet Morphology Acanthocytes (Spur) Keratocytes PT INR APTT Puncture Site Patient Temperature O2 Saturation ABG pH ABG pCO2 ABG pO2 ABG HCO3 ABG O2 Content ABG Base Excess ABG Methemoglobin Mars Test Hemoglobin Carboxyhemoglobin O2 Delivery Device Liter Flow Vent Setting Inspired O2 Critical Value Sodium Potassium Chloride Carbon Dioxide Anion Gap BUN Creatinine Estimated GFR POC Glucose 155 H 126 H Random Glucose Calcium Phosphorus Magnesium Total Bilirubin AST ALT Alkaline Phosphatase Total Protein Albumin Blood Type MTS Gel Crossmatch See Detail 12/03/17 12/03/17 12/03/17 23:20 23:20 23:20 WBC 28.4 H RBC 2.66 L Hgb 8.4 L Hct 23.0 L MCV 86.3 MCH 31.6 MCHC 36.7 H RDW 15.0 Plt Count 167 D MPV 12.2 H Prelim Diff (Auto) Neut % (Auto) Lymph % (Auto) [place] % (Auto) Eos % (Auto) Baso % (Auto) Neut # (Auto) Lymph # (Auto) [place] # (Auto) Eos # (Auto) Baso # (Auto) WBC Differential Seg Neuts % (Manual) Band Neuts % (Manual) Lymphocytes % (Manual) Monocytes % (Manual) Metamyelocytes % (Man) Abs Neuts (Manual) Nucleated RBCs/100 WBC Differential Comment Toxic Granulation Dohle Bodies Platelet Estimate Platelet Morphology Acanthocytes (Spur) Keratocytes PT 10.8 INR 1.1 APTT 28.2 Puncture Site Patient Temperature O2 Saturation ABG pH ABG pCO2 ABG pO2 ABG HCO3 ABG O2 Content ABG Base Excess ABG Methemoglobin Mars Test Hemoglobin Carboxyhemoglobin O2 Delivery Device Liter Flow Vent Setting Inspired O2 Critical Value Sodium Potassium Chloride Carbon Dioxide Anion Gap BUN Creatinine Estimated GFR POC Glucose Random Glucose Calcium Phosphorus Magnesium Total Bilirubin AST ALT Alkaline Phosphatase Total Protein Albumin Blood Type A Positive MTS Gel Crossmatch 12/03/17 12/04/17 12/04/17 23:31 00:58 01:14 WBC RBC Hgb Hct MCV MCH MCHC RDW Plt Count MPV Prelim Diff (Auto) Neut % (Auto) Lymph % (Auto) [place] % (Auto) Eos % (Auto) Baso % (Auto) Neut # (Auto) Lymph # (Auto) [place] # (Auto) Eos # (Auto) Baso # (Auto) WBC Differential Seg Neuts % (Manual) Band Neuts % (Manual) Lymphocytes % (Manual) Monocytes % (Manual) Metamyelocytes % (Man) Abs Neuts (Manual) Nucleated RBCs/100 WBC Differential Comment Toxic Granulation Dohle Bodies Platelet Estimate Platelet Morphology Acanthocytes (Spur) Keratocytes PT INR APTT Puncture Site Art line Art line Patient Temperature 98.6 98.6 O2 Saturation 95 97 ABG pH 7.39 7.28 L* ABG pCO2 45 H 57 H* ABG pO2 107 270 H ABG HCO3 26 26 ABG O2 Content 11.1 L 11.7 L ABG Base Excess 1.7 -0.3 ABG Methemoglobin 1.6 1.9 Mars Test Present Present Hemoglobin 8.2 L 8.1 L Carboxyhemoglobin 1.3 1.0 O2 Delivery Device Nasal cannula Ventilator Liter Flow 6.00 Vent Setting Ac16/500/+10/80% Inspired O2 44 80 Critical Value No Yes Sodium Potassium Chloride Carbon Dioxide Anion Gap BUN Creatinine Estimated GFR POC Glucose 165 H Random Glucose Calcium Phosphorus Magnesium Total Bilirubin AST ALT Alkaline Phosphatase Total Protein Albumin Blood Type MTS Gel Crossmatch 12/04/17 12/04/17 12/04/17 03:57 04:00 04:00 WBC 27.9 H RBC 2.57 L Hgb 8.1 L Hct 22.3 L MCV 87.0 MCH 31.4 MCHC 36.1 H RDW 15.0 Plt Count 177 MPV 11.2 H Prelim Diff (Auto) Slide review pending Neut % (Auto) 87.6 H Lymph % (Auto) 3.8 L [place] % (Auto) 7.8 Eos % (Auto) 0.4 Baso % (Auto) 0.4 Neut # (Auto) 24.4 H Lymph # (Auto) 1.1 [place] # (Auto) 2.2 H Eos # (Auto) 0.1 Baso # (Auto) 0.1 WBC Differential Manual diff final Seg Neuts % (Manual) 70 Band Neuts % (Manual) 16 H Lymphocytes % (Manual) 3 L Monocytes % (Manual) 7 Metamyelocytes % (Man) 4 H Abs Neuts (Manual) 25.1 H Nucleated RBCs/100 WBC 1 H Differential Comment . Toxic Granulation 1+ H Dohle Bodies Present H Platelet Estimate Normal Platelet Morphology Enlarged H Acanthocytes (Spur) Occ H Keratocytes Occ H PT INR APTT Puncture Site Patient Temperature O2 Saturation ABG pH ABG pCO2 ABG pO2 ABG HCO3 ABG O2 Content ABG Base Excess ABG Methemoglobin Mars Test Hemoglobin Carboxyhemoglobin O2 Delivery Device Liter Flow Vent Setting Inspired O2 Critical Value Sodium 137 Potassium 4.5 Chloride 98 Carbon Dioxide 27.1 Anion Gap 12 BUN 72 H Creatinine 6.77 H Estimated GFR 11 L POC Glucose 145 H Random Glucose 134 H Calcium 7.9 L Phosphorus 5.8 H Magnesium 2.6 H Total Bilirubin 2.6 H AST 218 H ALT 246 H Alkaline Phosphatase 136 H Total Protein 5.9 L Albumin 1.7 L Blood Type MTS Gel Crossmatch 12/04/17 04:50 WBC RBC Hgb Hct MCV MCH MCHC RDW Plt Count MPV Prelim Diff (Auto) Neut % (Auto) Lymph % (Auto) [place] % (Auto) Eos % (Auto) Baso % (Auto) Neut # (Auto) Lymph # (Auto) [place] # (Auto) Eos # (Auto) Baso # (Auto) WBC Differential Seg Neuts % (Manual) Band Neuts % (Manual) Lymphocytes % (Manual) Monocytes % (Manual) Metamyelocytes % (Man) Abs Neuts (Manual) Nucleated RBCs/100 WBC Differential Comment Toxic Granulation Dohle Bodies Platelet Estimate Platelet Morphology Acanthocytes (Spur) Keratocytes PT INR APTT Puncture Site Art line Patient Temperature 98.6 O2 Saturation 97 ABG pH 7.37 L ABG pCO2 43 H ABG pO2 217 H ABG HCO3 24 ABG O2 Content 12.0 ABG Base Excess -0.5 ABG Methemoglobin 1.6 Mars Test Present Hemoglobin 8.4 L Carboxyhemoglobin 0.8 O2 Delivery Device Ventilator Liter Flow Vent Setting Prvc18/550/1.0/+10 Inspired O2 60 Critical Value No Sodium Potassium Chloride Carbon Dioxide Anion Gap BUN Creatinine Estimated GFR POC Glucose Random Glucose Calcium Phosphorus Magnesium Total Bilirubin AST ALT Alkaline Phosphatase Total Protein Albumin Blood Type MTS Gel Crossmatch - Imaging Imaging: ITS Impressions Head MRI 12/03/17 00:00 CONCLUSION: 1. Minimal nonspecific periventricular white matter changes. 2. No restricted diffusion to suggest an acute ischemic event. 3. No evidence for significant ischemic changes. Chest X-Ray 12/04/17 00:01 CONCLUSION: 1. No significant change left greater than the right consolidation and effusions at the bases. 2. Lines and tubes as above. Endotracheal tube tip is approximately 2.7 cm above the [place]. Abdomen/Pelvis CT 12/04/17 00:02 CONCLUSION: 1. Interim midline laparotomy and gastrectomy with apparent Dinh-en-Y. 2. Bowel gas pattern consistent with obstruction of the duodenum and proximal jejunum. I don't see a mass. There does seem to be some jejunal wall thickening around the jejunostomy tube. 3. Wall thickening and mucosal enhancement of the colon consistent with moderate severity colitis. C. difficile colitis would be in the differential. 4. Solid organs are within normal limits. 5. Small ascites. Also diffuse body wall edema/anasarca. No perceptible hemorrhage. Chest CT 12/04/17 00:06 CONCLUSION: 1. Left greater than right pleural effusions and basilar atelectasis. 2. No hemorrhage or hematoma demonstrated. 3. Distended and fluid-filled esophagus. No wall thickening. Patient is status post gastrectomy. Nasogastric tube is at the GE junction. 4. Body wall edema/anasarca. Assessment and Plan - Assessment (1) Gastric perforation Code(s): K25.5 - Chronic or unspecified gastric ulcer with perforation Status : Acute Plan: 47yo male s/p Exlap and gastrectomy for gastric perforation, s/p esophagojejunostomy at [facility] -S/p head MRI---no evidence of ischemic event -Extubated; stable on NC -Dressing changed; change wet to dry daily to midline incision and PRN -Will order abdominal binder -Continue NG and tube feeds with Jtube -Continue routine ZAINAB care -Okay Lovenox -Family at bedside --- updated - Plan I personally evaluated the patient in room 1313. He appears awake and alert but does not respond verbally to questioning. He is attentive to his mother at the bedside who has dementia and has no relaxed recollection of why her son is in the hospital. His lung sounds are clear. His heart sounds are regular. His midline incision has a wet-to-dry dressing in place with minimal bloody drainage. His skin actually looks okay a little bit of superficial epidermis is gone from previous adhesive but there are no sign of cellulitis or inflammation or infection. Right lower quadrant drains are draining serosanguineous fluid. His extremities are nonedematous. He is a J-tube in place for feeding purposes. He is postop from [place] esophagojejunostomy. We will continue to follow him as he heals from his surgery. The exam, history, and the medical decision-making described in the above note were completed with the assistance of the mid-level provider. I reviewed and agree with the findings presented. I attest that I had a osbe-ad-yjho encounter with the patient on the same day, and personally performed and documented my assessment and findings in the medical record. 12/04/2017. I personally evaluated this patient. Intubated overnight due to vomiting and possible aspiration. An NG tube return to suction. Tube feeds have been stopped. I recommended tube feeds restart at 10 an hour. I discussed with bedside RN and Dr. Branch. Patient had CT scans of the chest abdomen pelvis. He has bilateral lower lobe consolidation with bilateral effusions. His abdominal CT does not appear to be consistent with obstruction to me. He had multisystem organ failure with a completely stomach and wildly elevated liver function tests and acute renal failure and on dialysis. Oral contrast was not provided on the CT scan. I recommended that the patient continued to be supported. Dr. Branch is aware of what is going on. He will continue critical care support. I discussed in detail with the patient's family at bedside.
[2017-12-04] MEDS: Pantoprazole Inj 40 MG Vial IV.PUSH SCH (09:50)
[2017-12-04] MEDS: Calcium Acetate 667 MG Capsule PO SCH ×3 (09:51→18:03)
[2017-12-04 10:37] LABS: Hematocrit 20.9 % (39.0-51.0); Hemoglobin 7.1 gm/dL (13.0-17.0)
[2017-12-04] MEDS: fentaNYL 10 mcg/mL Premix Drip 2,500 MCG/250 ML BAG IV.SIG PRN ×2 (11:52→23:07)
--- NOTE | 2017-12-04 12:01 | P.PNID ---
Subjective Remarks: Patient reintubated this am for acute hypoxic respiratory failure. [place] to have aspirated. He had copious amount of emesis. NGT has dark fluid. Afebrile. White blood cell count is still elevated. This is a 46-year-old black male who initially was admitted to the hospital on 11/22/2017. The patient was found to have no pneumoperitoneum on 11/23/2017. He presented with severe abdominal pain. He was also noted to have ischemia of the proximal two-thirds of the stomach and there was a large gastric perforation and contamination of food particles into the peritoneum. The patient ended up being transferred to [facility] in [place] and he underwent subtotal gastrectomy and Dinh-en-Y esophageal jejunostomy and a feeding jejunostomy tube placement. He was put on antifungal medication for candidemia. The results of the cultures are not available to me at this time. The culture reportedly was from [facility] in [place]. He was transferred back to [facility] on 11/29/2017 from [facility]. The reason for this consultation is for candidemia. Allergies/Adverse Reactions: Allergies No Known Allergies Allergy (Verified 11/22/17 02:38) Objective Vital Signs 12/03/17 12:00 12/03/17 16:00 12/03/17 20:00 Temperature 99.3 F 99.5 F 99.1 F Pulse Rate 94 H 102 H 102 H Respiratory Rate 31 H 30 H 31 H Blood Pressure 188/85 H Pulse Oximetry 95 99 100 12/03/17 21:00 12/04/17 00:00 12/04/17 00:23 Temperature 97.9 F Pulse Rate 92 H Respiratory Rate 20 16 Blood Pressure Pulse Oximetry 93 L 85 L 99 12/04/17 00:50 12/04/17 01:25 12/04/17 03:36 Temperature Pulse Rate 102 H 97 H Respiratory Rate 16 26 H Blood Pressure Pulse Oximetry 100 12/04/17 04:00 12/04/17 04:02 12/04/17 07:00 Temperature 98.4 F Pulse Rate 100 H 100 H Respiratory Rate 22 23 83 H Blood Pressure Pulse Oximetry 100 100 100 12/04/17 07:12 12/04/17 07:32 12/04/17 07:54 Temperature Pulse Rate 99 H 84 Respiratory Rate 80 H 22 22 Blood Pressure 165/87 H Pulse Oximetry 100 100 12/04/17 08:00 12/04/17 08:12 12/04/17 11:02 Temperature 98.2 F Pulse Rate 96 H 95 H 94 H Respiratory Rate 80 H 79 H Blood Pressure 159/88 H 159/88 H Pulse Oximetry 99 99 12/04/17 11:04 12/04/17 11:17 12/04/17 11:35 Temperature 97.6 F 97.7 F Pulse Rate 94 H 94 H Respiratory Rate 19 19 19 Blood Pressure 148/63 H 143/62 H Pulse Oximetry 100 100 99 12/04/17 11:53 Temperature Pulse Rate 91 H Respiratory Rate Blood Pressure Pulse Oximetry Intake & Output 12/03/17 12/04/17 12/04/17 18:59 06:59 18:59 Intake Total 468 / 468 1484.7969 / 1484.7969 1500 / 1500 Output Total 07772 / 86057 1200 / 1200 Balance -45681 / -66893 284.7969 / 284.7969 1500 / 1500 Weight 84.6 kg Intake: IV 300 / 300 1434.7969 / 1434.7969 1500 / 1500 Versed Inj 50 mg In 50 ml @ 2 50 / 50 50 / 50 MG/HR 2 mls/hr IV.CONT TITRATE PRN Rx#:[id number] Intralipid 20% Inj 250 ML @ 31. 250 / 250 25 mls/hr IV.SIG Q24H [facility] Rx#: [id number] Mycamine Inj 100 MG In NS Inj 200 / 200 100 ML @ 100 mls/hr IV.SIG Q24H [facility] Rx#:[id number] Zosyn 2.25 GM Premix 50 ML @ 50 / 50 100 / 100 100 mls/hr IV.SIG Q8H [facility] Rx#: [id number] Sodium Chloride 23.4% Inj 5.5 1034.7969 / 1034.7969 MEQ Sodium Acetate Inj 29.5 MEQ KCl Inj 20 MEQ Magnesium Chloride Inj 5 MEQ Calcium Chloride Inj 4.5 MEQ MVI-12 Inj 10 ML Folvite Inj 1 MG In Clinimix 5%/D20W Inj 1,000 ML @ 40.374 mls/hr IV.SIG Q24H [facility] Rx#:[id number] fentaNYL 10 mcg/mL Premix Drip 250 / 250 250 / 250 2,500 mcg In 250 ml @ 50 MCG/HR 5 mls/hr IV.SIG TITRATE PRN Rx #:[id number] NS Inj 1,000 ML @ As Directed 1000 / 1000 OTHER .Q0M PRN Rx#:[id number] Tube Feeding 108 / 108 50 / 50 Tube Irrigant 60 / 60 Intake (Blood Product) Amt 0 / 0 Rbc As-3 Leukoreduced Unit 0 / 0 [id number] Output: Urine 0 / 0 0 / 0 Hemodialysis Amount 39746 / 60254 Wound Drainage 500 / 500 1200 / 1200 # 1 Right Abdomen 300 / 300 75 / 75 # 2 Right Abdomen 200 / 200 1125 / 1125 Other: Date of Last Bowel Movement 12/03/17 12/04/17 12/03/17 # Bowel Movements 2 3 11/30/17 13:33 Blood - Peripheral Aerobic Blood Culture - Preliminary No growth in 4 days 11/30/17 13:33 Blood - Peripheral Anaerobic Blood Culture - Preliminary No growth in 4 days 11/30/17 03:19 Blood - Peripheral Aerobic Blood Culture - Preliminary No growth in 4 days 11/30/17 03:19 Blood - Peripheral Anaerobic Blood Culture - Preliminary No growth in 4 days 12/04/17 00:15 Sputum - Endotracheal Gram Stain - Final 12/04/17 00:15 Sputum - Endotracheal Sputum Culture - Pending Lab - Hematology Results 12/03/17 12/03/17 12/04/17 04:52 23:20 04:00 WBC 27.9 H 28.4 H 27.9 H RBC 2.78 L 2.66 L 2.57 L Hgb 8.4 L 8.4 L 8.1 L Hct 24.7 L 23.0 L 22.3 L MCV 88.9 86.3 87.0 MCH 30.3 31.6 31.4 MCHC 34.1 36.7 H 36.1 H RDW 15.0 15.0 15.0 Plt Count 114 L D 167 D 177 MPV 12.5 H 12.2 H 11.2 H Prelim Diff (Auto) Slide review pending Slide review pending Neut % (Auto) 89.6 H 87.6 H Lymph % (Auto) 4.4 L 3.8 L Love % (Auto) 5.0 7.8 Eos % (Auto) 0.7 0.4 Baso % (Auto) 0.3 0.4 Neut # (Auto) 25.0 H 24.4 H Lymph # (Auto) 1.2 1.1 Love # (Auto) 1.4 H 2.2 H Eos # (Auto) 0.2 0.1 Baso # (Auto) 0.1 0.1 WBC Differential Manual diff final Manual diff final Seg Neuts % (Manual) 84 H 70 Band Neuts % (Manual) 8 H 16 H Lymphocytes % (Manual) 2 L 3 L Monocytes % (Manual) 3 7 Metamyelocytes % (Man) 1 4 H Myelocytes % (Man) 2 H Abs Neuts (Manual) 26.5 H 25.1 H Nucleated RBCs/100 WBC 1 H Differential Comment . . Toxic Granulation 1+ H 1+ H Dohle Bodies Present H Platelet Estimate Low L Normal Platelet Morphology Normal Enlarged H Acanthocytes (Spur) Occ H Keratocytes Occ H 12/04/17 10:00 WBC RBC Hgb 7.1 L Hct 20.9 L* MCV MCH MCHC RDW Plt Count MPV Prelim Diff (Auto) Neut % (Auto) Lymph % (Auto) Love % (Auto) Eos % (Auto) Baso % (Auto) Neut # (Auto) Lymph # (Auto) Love # (Auto) Eos # (Auto) Baso # (Auto) WBC Differential Seg Neuts % (Manual) Band Neuts % (Manual) Lymphocytes % (Manual) Monocytes % (Manual) Metamyelocytes % (Man) Myelocytes % (Man) Abs Neuts (Manual) Nucleated RBCs/100 WBC Differential Comment Toxic Granulation Dohle Bodies Platelet Estimate Platelet Morphology Acanthocytes (Spur) Keratocytes Lab - Chemistry Results 12/02/17 12/02/17 12/03/17 13:16 16:31 04:52 Sodium 137 Potassium 4.5 D Chloride 100 Carbon Dioxide 24.7 Anion Gap 12 BUN 81 H Creatinine 7.58 H Estimated GFR 9 L POC Glucose 133 H 116 H Random Glucose 137 H Calcium 8.1 L D Phosphorus 5.2 H D Magnesium 2.5 Total Bilirubin 2.8 H AST 170 H ALT 212 H Alkaline Phosphatase 83 Total Protein 5.6 L Albumin 1.7 L 12/03/17 12/03/17 12/03/17 08:50 13:08 17:44 Sodium Potassium Chloride Carbon Dioxide Anion Gap BUN Creatinine Estimated GFR POC Glucose 143 H 124 H 155 H Random Glucose Calcium Phosphorus Magnesium Total Bilirubin AST ALT Alkaline Phosphatase Total Protein Albumin 12/03/17 12/04/17 12/04/17 20:32 00:58 03:57 Sodium Potassium Chloride Carbon Dioxide Anion Gap BUN Creatinine Estimated GFR POC Glucose 126 H 165 H 145 H Random Glucose Calcium Phosphorus Magnesium Total Bilirubin AST ALT Alkaline Phosphatase Total Protein Albumin 12/04/17 12/04/17 04:00 10:12 Sodium 137 Potassium 4.5 Chloride 98 Carbon Dioxide 27.1 Anion Gap 12 BUN 72 H Creatinine 6.77 H Estimated GFR 11 L POC Glucose 129 H Random Glucose 134 H Calcium 7.9 L Phosphorus 5.8 H Magnesium 2.6 H Total Bilirubin 2.6 H AST 218 H ALT 246 H Alkaline Phosphatase 136 H Total Protein 5.9 L Albumin 1.7 L Imaging: ITS Impressions Head MRI 12/03/17 00:00 CONCLUSION: 1. Minimal nonspecific periventricular white matter changes. 2. No restricted diffusion to suggest an acute ischemic event. 3. No evidence for significant ischemic changes. Chest X-Ray 12/04/17 00:01 CONCLUSION: 1. No significant change left greater than the right consolidation and effusions at the bases. 2. Lines and tubes as above. Endotracheal tube tip is approximately 2.7 cm above the [place]. Abdomen/Pelvis CT 12/04/17 00:02 CONCLUSION: 1. Interim midline laparotomy and gastrectomy with apparent Dinh-en-Y. 2. Bowel gas pattern consistent with obstruction of the duodenum and proximal jejunum. I don't see a mass. There does seem to be some jejunal wall thickening around the jejunostomy tube. 3. Wall thickening and mucosal enhancement of the colon consistent with moderate severity colitis. C. difficile colitis would be in the differential. 4. Solid organs are within normal limits. 5. Small ascites. Also diffuse body wall edema/anasarca. No perceptible hemorrhage. Chest CT 12/04/17 00:06 CONCLUSION: 1. Left greater than right pleural effusions and basilar atelectasis. 2. No hemorrhage or hematoma demonstrated. 3. Distended and fluid-filled esophagus. No wall thickening. Patient is status post gastrectomy. Nasogastric tube is at the GE junction. 4. Body wall edema/anasarca. Physical Exam: PHYSICAL EXAMINATION: GENERAL: Patient on the vent. HEENT: No icterus. NECK: Supple without adenopathy or swelling. LUNGS: Decreased breath sounds. HEART: Regular S1, S2. No audible murmur. ABDOMEN: ZAINAB tube exits the right abdomen and has serosanguineous drainage. EXTREMITIES: No clubbing or cyanosis. Swelling of the upper extremities. SKIN: No diffuse rash. NEUROLOGIC: unable to assess, intubated. PSYCHIATRIC: Unable to assess. Assessment and Plan - Plan IMPRESSION: 1. Candidemia following gastric perforation and gastric ischemia. Blood culture at [facility] in [place] on 11/26 had Starr glabrata. Repeat blood culture is negative. 2. Status post abdominal surgery. 3. Acute respiratory failure. 4. Acute kidney disease. 5. Recent cardiac arrest. 6. Leukocytosis. RECOMMENDATIONS: 1. Continue micafungin for candidemia. 2. Continue piperacillin/tazobactam. 3. Monitor sputum culture. 4. Monitor white blood cell count. 5. Monitor the temperature.
--- NOTE | 2017-12-04 12:43 | P.PNNP ---
Subjective Interval history: He has been intubated. Not responsive. Anuric. On TPN. Physical Exam Vital signs: Vital Signs 12/03/17 16:00 12/03/17 20:00 12/03/17 21:00 Temperature 99.5 F 99.1 F Pulse Rate 102 H 102 H Respiratory Rate 30 H 31 H Blood Pressure 188/85 H Pulse Oximetry 99 100 93 L 12/04/17 00:00 12/04/17 00:23 12/04/17 00:50 Temperature 97.9 F Pulse Rate 92 H 102 H Respiratory Rate 20 16 16 Blood Pressure Pulse Oximetry 85 L 99 12/04/17 01:25 12/04/17 03:36 12/04/17 04:00 Temperature 98.4 F Pulse Rate 97 H 100 H Respiratory Rate 26 H 22 Blood Pressure Pulse Oximetry 100 100 12/04/17 04:02 12/04/17 07:00 12/04/17 07:12 Temperature Pulse Rate 100 H 99 H Respiratory Rate 23 83 H 80 H Blood Pressure 165/87 H Pulse Oximetry 100 100 100 12/04/17 07:32 12/04/17 07:54 12/04/17 08:00 Temperature 98.2 F Pulse Rate 84 96 H Respiratory Rate 22 22 80 H Blood Pressure 159/88 H Pulse Oximetry 100 99 12/04/17 08:12 12/04/17 11:02 12/04/17 11:04 Temperature Pulse Rate 95 H 94 H Respiratory Rate 79 H 19 Blood Pressure 159/88 H Pulse Oximetry 99 100 12/04/17 11:17 12/04/17 11:35 12/04/17 11:53 Temperature 97.6 F 97.7 F Pulse Rate 94 H 94 H 91 H Respiratory Rate 19 19 Blood Pressure 148/63 H 143/62 H Pulse Oximetry 100 99 Intake & Output 12/03/17 12/04/17 12/04/17 18:59 06:59 18:59 Intake Total 468 / 468 1484.7969 / 1484.7969 1500 / 1500 Output Total 02874 / 91754 1200 / 1200 Balance -48232 / -97850 284.7969 / 284.7969 1500 / 1500 Weight 84.6 kg Intake: IV 300 / 300 1434.7969 / 1434.7969 1500 / 1500 Versed Inj 50 mg In 50 ml @ 2 50 / 50 50 / 50 MG/HR 2 mls/hr IV.CONT TITRATE PRN Rx#:[id number] Intralipid 20% Inj 250 ML @ 31. 250 / 250 25 mls/hr IV.SIG Q24H [facility] Rx#: [id number] Mycamine Inj 100 MG In NS Inj 200 / 200 100 ML @ 100 mls/hr IV.SIG Q24H [facility] Rx#:[id number] Zosyn 2.25 GM Premix 50 ML @ 50 / 50 100 / 100 100 mls/hr IV.SIG Q8H [facility] Rx#: [id number] Sodium Chloride 23.4% Inj 5.5 1034.7969 / 1034.7969 MEQ Sodium Acetate Inj 29.5 MEQ KCl Inj 20 MEQ Magnesium Chloride Inj 5 MEQ Calcium Chloride Inj 4.5 MEQ MVI-12 Inj 10 ML Folvite Inj 1 MG In Clinimix 5%/D20W Inj 1,000 ML @ 40.374 mls/hr IV.SIG Q24H [facility] Rx#:[id number] fentaNYL 10 mcg/mL Premix Drip 250 / 250 250 / 250 2,500 mcg In 250 ml @ 50 MCG/HR 5 mls/hr IV.SIG TITRATE PRN Rx #:[id number] NS Inj 1,000 ML @ As Directed 1000 / 1000 OTHER .Q0M PRN Rx#:[id number] Tube Feeding 108 / 108 50 / 50 Tube Irrigant 60 / 60 Intake (Blood Product) Amt 0 / 0 Rbc As-3 Leukoreduced Unit 0 / 0 [id number] Output: Urine 0 / 0 0 / 0 Hemodialysis Amount 47390 / 15437 Wound Drainage 500 / 500 1200 / 1200 # 1 Right Abdomen 300 / 300 75 / 75 # 2 Right Abdomen 200 / 200 1125 / 1125 Other: Date of Last Bowel Movement 12/03/17 12/04/17 12/03/17 # Bowel Movements 2 3 Narrative: Intubated. NG tube with coffee ground drainage. Chest: CTA, vented breath sounds. Abdomen: ZAINAB drains with some bloody drain. Midline surgical scar covered in dressing. J-tube. Dependent edema. Upper extremity edema. Right IJ VasCAth. - Urinary Catheter Management Indwelling Temp Sensing Catheter Cath placed during this visit: no Assessment and Plan - Assessment (1) JACLYN (acute kidney injury) Code(s): N17.9 - Acute kidney failure, unspecified Status: Acute Plan: Acute kidney injury most likely has developed ATN. Dialysis tomorrow Monitor electrolytes and fluid status. Avoid nephrotoxic agents such as NSAIDs. Avoid Gadolinium. (2) Acute respiratory failure Code(s): J96.00 - Acute respiratory failure, unspecified whether with hypoxia or hypercapnia Status: Acute Qualifiers: Respiratory failure complication: hypoxia Qualified Code(s): J96.01 - Acute respiratory failure with hypoxia Plan: reintubated yesterday, possible aspiration. (3) Gastric perforation Code(s): K25.5 - Chronic or unspecified gastric ulcer with perforation Status : Acute Plan: s/p surgery. Subtotal gastrectomy here. In s he had: Dinh-en-y esophagojejunostomy, feeding jejunostomy placement, diagnostic EGD, primary fascial closure. Date of procedure: 11/28/17 (4) Candidemia Code(s): B37.7 - Candidal sepsis Status: Acute Plan: On Micafungin. Patient is also on Zosyn. Dose medications appropriate to renal function. (5) DVT (deep venous thrombosis) Code(s): I82.409 - Acute embolism and thrombosis of unspecified deep veins of unspecified lower extremity Status: Acute Plan: On heparin drip. DVT of bilateral upper extremities.
--- NOTE | 2017-12-04 17:35 | MG ---
cc: Amy Gray MD EEG NUMBER: [id number] REFERRING PHYSICIAN: Jose Carlos. ROOM: 13. MEDICATIONS: Intubated. Versed at 7 mg, fentanyl 200 mcg. CLINICAL HISTORY: Photic stimulation only. TPN running throughout the study. During the EEG, he withdrew in all 4 extremities Admitted with PEA arrest, hypotensive. Extubated 12/03/2017, not following commands and was reintubated, fentanyl and Versed as stated as. DESCRIPTION OF RECORD: As stated, the patient is intubated on a ventilator, on sedation. Overall, background diffusely slow. There is some twitching of the shoulders; however, does not really correlate with any type of epileptic activity. Looks more like shivering artifact, myogenic artifact. Overall background in between this twitching/shivering is slow, predominately what looks like delta frequency, low amplitude. IMPRESSION: Abnormal EEG due to significant slowing of background without any significant driving response on photic stimulation, may be due to a moderately-severe encephalopathic process. No correlation with epileptiform features with the shivering, as described. Clinical correlation. Amy Gray MD DF/ll , 04:19 PM , 04:25 PM
--- NOTE | 2017-12-04 17:37 | P.PNCC ---
Subjective Subjective Remarks/Hospital Course: Patient was recently admitted to [facility] 11/22 and transferred to [facility] 11/26/17 after the following hospital course: 47-year-old -[place]ov[place] male with reportedly no past medical or past surgical history who was admitted to hospitalist service 11/22/17 after presenting with abdominal pain, nausea, vomiting. He had CT abd/pelvis with massive gastric distention. NG tube had been placed. I was called to patient's bedside for CODE BLUE PEA arrest. CPR was ongoing and patient had massive abdominal distension and gastric regurgitant in the airway. He was emergently intubated and large amount of gastric secretions suctioned from oropharynx. After 21 minutes of CPR, ROSC was obtained and he was profoundly hypotensive. Continued aggressive fluid resuscitation and initiated dopamine. He was transferred to [facility] where CVL and R radial art line were placed and he was given 7 L of crystalloid and albumin. CXR demonstrated pneumoperitoneum and Dr. Martin Gudino was called emergently and he immediately contacted OR for emergent ex lap. He had intraabdominal hypertension with IAP of 40 mmHg, though fortunately was able to be ventilated adequately after rocuronium 50 mg IV and was transferred to OR. Dr. Martin Gudino took to the operating room early in the morning on 11/23 and discovered tension pneumoperitoneum, massive gastric distension, ischemia of the proximal 2/3 of the stomach and large gastric perforation with massive intraperitoneal contamination with food particles. Dr. Isaacs placed 2 NGT and decompressed 2 L of succus. Patient had initial improvement in vital signs in the immediate postoperative period, however he subsequently became hypotensive requiring upward titration of levophed and addition of vasopressin and stress dose hydrocortisone. He remains on levophed 10 mcg/min, neosynephrine 80 mcg/ min, vasopressin 0.04 units/min with overall vasopressor requirement weaning overnight. He is oliguric and creatinine is continuing to climb. He was given 2 L of crystalloid and albumin overnight. He does have significant fluid losses with combination of abdominal dressing and NGT output, so I will give an additional L of crystalloid now to monitor hourly response as he certainly does not appear volume overloaded. Nonetheless Flotrac numbers are suggesting adequate volume status and we may be seeing the consequence of ischemic ATN. May ultimately require HD, however not at this time. Abdomen remains open and plan is to re-explore 11/25. 11/25: Patient has acceptable hemodynamics by Flotrac but remains septic with requirements for phenylephrine 200 mics per minute, Levophed 8 mics per minute and vasopressin 0.04 units/min for blood pressure support. This has improved overnight and the Bhavesh-Synephrine support has been weaned off completely. Acid base balance is acceptable. ATN has developed which will undoubtedly require hemodialysis. Potassium level is normal. He is at increased risk for an anesthetic now but there is an urgent need to check for residual gastric necrosis. 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 Since the source control surgery, the maintenance of normal acid-base balance has been less difficult. Patient remains anuric with a rising creatinine above 6.0. He is clearly ahead on volume and will benefit from dialysis. A 2 lumen hemodialysis catheter was placed on 11/25 and has been packed with dilute heparin solution. The right internal jugular central line is been in place for 4 days and accessed multiple times. The femoral art line has been in for 4 days. Shock liver was apparent after the cardiac arrest reflecting a transaminitis, elevated bilirubin, and prolonged INR. The INR has remained normal following the transfusion of 4 units of fresh frozen plasma prior to surgery yesterday. A 10% dextrose infusion continues because of ongoing problems with hypoglycemia. Thrombocytopenia at 37,000 persists. He has remained on antibiotic coverage with Pipracil/tazobactam and fungal coverage with fluconazole, all adjusted for renal failure. Present vasopressor requirements include levophed at 7 mics per minute and vasopressin at 0.04 units/min. The chest x-ray is consistent with minor aspiration at the time of his preoperative cardiac arrest on the floor and cultures have subsequently grown Klebsiella, pansensitive. The operative note will clarify the extent of the surgery but in essence the distal esophagus is stapled off and marked with 2 Prolene sutures. The antrum of the stomach is oversewn. Most of the stomach has been removed. The abdomen is open with a VAC dressing applied. Subjective: 11/29: Bowel was in discontinuity following subtotal gastrectomy and patient was transferred to [facility]. On reexploration 11/28 he underwent Dinh-en-y esophagojejunostomy, feeding jejunostomy placement, diagnostic EGD, primary fascial closure. Wound vac was applied to abdomen (though currently wet to dry dressing in place upon arrival). He was reportedly found to have candidemia and was started on micafungin and has undergone ophtho eval. Lines including CVL, Vascath and art line have all been changed at [facility] (though not clear when). He remains on mechanical ventilation and has been weaned off pressors. He was found to have BUE DVTs and is on heparin drip. He is on TPN and has been started on trickle tube feeds with Nepro via jejunostomy. NGT is to SHAHBAZ. He underwent HD postoperatively on 11/28. He has now been transferred back to [facility] for ongoing management. I have updated his father and stepmother. 11/30: Patient re-admitted s/p transfer from [facility] overnight, otherwise no acute issues. Scheduled to undergo HD today. 12/01: T-max 101.7, leukocytosis to 27,000 with bandemia. Now 3 days following Dinh-en-Y reconstruction of GI tract following sub-total gastrectomy for gastric necrosis. All new lines placed after diagnosis of candidemia. TPN infusing, jejunostomy at trickle flow and can be increased slowly per general surgery. 12/02: Marked leukocytosis with bandemia persists. Afebrile over last 24 hours. Leave NG tube across the esophageal anastomosis and surgical service will direct timing of contrast study about 7 days following surgery. Continue with spontaneous breathing trials. 12/03: extubated yesterday. since then, has not followed commands, and does not talk. appears to have clinically an aphasia, although his uremia or severe hypoactive delirium could present this way. purposeful movements. will obtain MRI to rule out acute ischemia, as this appears to be a new mental status change (11/29 /[facility] notes state interactive on ventilator). 12/04: reintubated overnight: more output from ZAINAB drains. hgb dropped to 7 this AM: receiving 1 unit prbc. MRI negative for acute change. EEG ordered today to rule out subclinical status epilepticus. also concern overnight for aspiration event. Objective Vital Signs / I&O: Vital Signs 12/03/17 20:00 12/03/17 21:00 12/04/17 00:00 Temperature 37.3 C 36.6 C Pulse Rate 102 H 92 H Respiratory Rate 31 H 20 Blood Pressure 188/85 H Pulse Oximetry 100 93 L 85 L 12/04/17 00:23 12/04/17 00:50 12/04/17 01:25 Temperature Pulse Rate 102 H Respiratory Rate 16 16 Blood Pressure Pulse Oximetry 99 100 12/04/17 03:36 12/04/17 04:00 12/04/17 04:02 Temperature 36.9 C Pulse Rate 97 H 100 H Respiratory Rate 26 H 22 23 Blood Pressure Pulse Oximetry 100 100 12/04/17 07:00 12/04/17 07:12 12/04/17 07:32 Temperature Pulse Rate 100 H 99 H Respiratory Rate 83 H 80 H 22 Blood Pressure 165/87 H Pulse Oximetry 100 100 100 12/04/17 07:54 12/04/17 08:00 12/04/17 08:12 Temperature 36.8 C Pulse Rate 84 96 H 95 H Respiratory Rate 22 80 H 79 H Blood Pressure 159/88 H 159/88 H Pulse Oximetry 99 99 12/04/17 08:15 12/04/17 08:30 12/04/17 08:45 Temperature Pulse Rate 96 H 95 H 95 H Respiratory Rate 78 H 87 H 89 H Blood Pressure Pulse Oximetry 99 99 99 12/04/17 09:00 12/04/17 09:12 12/04/17 09:15 Temperature Pulse Rate 96 H 96 H 96 H Respiratory Rate 78 H 90 H 88 H Blood Pressure 158/84 H Pulse Oximetry 99 99 99 12/04/17 09:30 12/04/17 09:45 12/04/17 10:00 Temperature Pulse Rate 95 H 95 H 96 H Respiratory Rate 77 H 77 H 68 H Blood Pressure Pulse Oximetry 99 99 100 12/04/17 10:12 12/04/17 10:15 12/04/17 10:30 Temperature Pulse Rate 95 H 95 H 94 H Respiratory Rate 78 H 90 H 88 H Blood Pressure 156/77 H Pulse Oximetry 100 100 100 12/04/17 10:45 12/04/17 11:00 12/04/17 11:02 Temperature Pulse Rate 94 H 94 H 94 H Respiratory Rate 90 H 78 H 18 Blood Pressure Pulse Oximetry 100 100 12/04/17 11:04 12/04/17 11:12 12/04/17 11:15 Temperature Pulse Rate 94 H 94 H Respiratory Rate 19 92 H 92 H Blood Pressure 159/80 H Pulse Oximetry 100 100 100 12/04/17 11:17 12/04/17 11:30 10/30/18 11:35 Temperature 36.4 C 36.5 C Pulse Rate 94 H 93 H 94 H Respiratory Rate 19 76 H 19 Blood Pressure 148/63 H 143/62 H Pulse Oximetry 100 99 99 12/04/17 11:45 12/04/17 11:53 12/04/17 12:00 Temperature 36.6 C Pulse Rate 92 H 91 H 91 H Respiratory Rate 76 H 80 H Blood Pressure Pulse Oximetry 100 100 12/04/17 12:12 12/04/17 12:15 12/04/17 12:30 Temperature Pulse Rate 90 89 90 Respiratory Rate 90 H 82 H 73 H Blood Pressure 167/86 H Pulse Oximetry 99 99 99 12/04/17 12:45 12/04/17 13:00 12/04/17 13:12 Temperature Pulse Rate 90 89 89 Respiratory Rate 60 H 60 H 70 H Blood Pressure 172/83 H Pulse Oximetry 99 99 99 12/04/17 13:15 12/04/17 13:30 12/04/17 13:45 Temperature Pulse Rate 90 91 H 93 H Respiratory Rate 61 H 73 H 75 H Blood Pressure Pulse Oximetry 99 99 99 12/04/17 14:00 12/04/17 14:08 12/04/17 14:12 Temperature Pulse Rate 93 H 94 H Respiratory Rate 74 H 19 63 H Blood Pressure 174/80 H Pulse Oximetry 99 99 12/04/17 14:15 12/04/17 14:30 12/04/17 14:45 Temperature Pulse Rate 93 H 92 H 96 H Respiratory Rate 69 H 62 H 63 H Blood Pressure Pulse Oximetry 99 99 99 12/04/17 15:00 12/04/17 15:12 12/04/17 15:15 Temperature Pulse Rate 92 H 92 H 92 H Respiratory Rate 57 H 53 H 62 H Blood Pressure 178/79 H Pulse Oximetry 99 99 100 12/04/17 15:30 12/04/17 15:45 12/04/17 16:00 Temperature 36.6 C Pulse Rate 91 H 91 H 90 Respiratory Rate 67 H 52 H 49 H Blood Pressure Pulse Oximetry 100 99 99 12/04/17 16:06 12/04/17 16:12 12/04/17 16:15 Temperature Pulse Rate 89 92 H 90 Respiratory Rate 23 53 H 58 H Blood Pressure 178/81 H Pulse Oximetry 99 99 12/04/17 16:30 12/04/17 16:45 Temperature Pulse Rate 91 H 91 H Respiratory Rate 75 H 76 H Blood Pressure Pulse Oximetry 99 99 Intake & Output 12/03/17 12/04/17 12/04/17 18:59 06:59 18:59 Intake Total 468 / 468 1484.7969 / 1484.7969 1550 / 1550 Output Total 20491 / 59360 1200 / 1200 Balance -02555 / -14367 284.7969 / 284.7969 1550 / 1550 Weight 84.6 kg Intake: IV 300 / 300 1434.7969 / 1434.7969 1550 / 1550 Versed Inj 50 mg In 50 ml @ 2 50 / 50 50 / 50 MG/HR 2 mls/hr IV.CONT TITRATE PRN Rx#:[id number] Intralipid 20% Inj 250 ML @ 31. 250 / 250 25 mls/hr IV.SIG Q24H COLE Rx#: [id number] Mycamine Inj 100 MG In NS Inj 200 / 200 100 ML @ 100 mls/hr IV.SIG Q24H COLE Rx#:[id number] Zosyn 2.25 GM Premix 50 ML @ 50 / 50 100 / 100 50 / 50 100 mls/hr IV.SIG Q8H COLE Rx#: [id number] Sodium Chloride 23.4% Inj 5.5 1034.7969 / 1034.7969 MEQ Sodium Acetate Inj 29.5 MEQ KCl Inj 20 MEQ Magnesium Chloride Inj 5 MEQ Calcium Chloride Inj 4.5 MEQ MVI-12 Inj 10 ML Folvite Inj 1 MG In Clinimix 5%/D20W Inj 1,000 ML @ 40.374 mls/hr IV.SIG Q24H COLE Rx#:[id number] fentaNYL 10 mcg/mL Premix Drip 250 / 250 250 / 250 2,500 mcg In 250 ml @ 50 MCG/HR 5 mls/hr IV.SIG TITRATE PRN Rx #:[id number] NS Inj 1,000 ML @ As Directed 1000 / 1000 OTHER .Q0M PRN Rx#:[id number] Tube Feeding 108 / 108 50 / 50 Tube Irrigant 60 / 60 Intake (Blood Product) Amt 0 / 0 Rbc As-3 Leukoreduced Unit 0 / 0 [id number] Output: Urine 0 / 0 0 / 0 Hemodialysis Amount 79571 / 54637 Wound Drainage 500 / 500 1200 / 1200 # 1 Right Abdomen 300 / 300 75 / 75 # 2 Right Abdomen 200 / 200 1125 / 1125 Other: Date of Last Bowel Movement 12/03/17 12/04/17 12/03/17 # Bowel Movements 2 3 Result Diagrams: 12/04/17 10:00 12/04/17 04:00 Objective Remarks: GEN: Chronically ill-appearing, no distress HEENT: NCAT, pupils 2 mm and reactive bilaterally NECK: RIJ vasc-cath and LIJ TLC present, clean/ dry/ intact CARDIO: Borderline bradycardic to high 60s, no murmur, neck veins are full. PULM: prvc, fio2 50%. equal chest rise. peep 5. ABD: Midline surgical bandages clean/ dry/ intact. ZAINAB #1 is anterior to esophagojejunostomy anastomosis, ZAINAB #2 posterior, both with serosanguineous drainage. Abdomen soft. Fascia is closed, skin is open, depth of wound is minimal. EXT/MSK: Anasarca SKIN: No rashes or lesions NEURO: Moves 4 limbs spontaneously. Purposeful with arms. nonverbal. tracks with eyes. does not follow commands. does not speak. PSYCH: Unable to assess Assessment and Plan - Problem List (1) Gastric perforation Code(s): K25.5 - Chronic or unspecified gastric ulcer with perforation Status : Acute (2) Status post total gastrectomy and Dinh-en-Y esophagojejunal anastomosis Code(s): Z90.3 - Acquired absence of stomach [part of]; Z98.0 - Intestinal bypass and anastomosis status Status: Acute (3) Ischemic hepatitis Code(s): K75.9 - Inflammatory liver disease, unspecified Status: Acute (4) Gastric necrosis Code(s): K31.89 - Other diseases of stomach and duodenum Status: Acute (5) Thrombocytopenia Code(s): D69.6 - Thrombocytopenia, unspecified Status: Acute (6) Acute bilateral deep vein thrombosis (DVT) of upper extremities Code(s): I82.623 - Acute embolism and thrombosis of deep veins of upper extremity, bilateral Status: Acute (7) Anemia Code(s): D64.9 - Anemia, unspecified Status: Acute (8) Leukocytosis Code(s): D72.829 - Elevated white blood cell count, unspecified Status: Acute (9) Candidemia Code(s): B37.7 - Candidal sepsis Status: Acute (10) On total parenteral nutrition (TPN) Code(s): Z78.9 - Other specified health status Status: Acute (11) Hx of cardiac arrest Code(s): Z86.74 - Personal history of sudden cardiac arrest Status: Resolved (12) Acute hemodialysis patient Code(s): Z99.2 - Dependence on renal dialysis Status: Acute (13) JACLYN (acute kidney injury) Code(s): N17.9 - Acute kidney failure, unspecified Status: Acute (14) Aspiration pneumonia Code(s): J69.0 - Pneumonitis due to inhalation of food and vomit Status: Acute (15) Acute respiratory failure Code(s): J96.00 - Acute respiratory failure, unspecified whether with hypoxia or hypercapnia Status: Acute - Assessment and Plan Plan: NEURO: Acute metabolic encephalopathy- severe MRI 12/03: negative for acute change EEG today. could be delirium vs. uremic encephalopathy RESP: Acute hypoxic and hypercarbic respiratory failure- recurrent, severe Healthcare associated aspiration pneumonia extub 12/02, reintubated 12/03 overnight wean fio2 to keep spo2 > 90% vent bundle aggressive pulmonary toilet PT/OT CV: Cardiac arrest 11/23/17 (PEA arrest due to shock secondary to acute gastric perf and tension pneumoperitoneum) Septic shock, resolved Now off pressors Hemodynamic monitoring with L radial art line GI: s/p gastric perforation with tension pneumoperitoneum status post ex lap with primary repair of anterior gastric perforation with stapler 11/23 On second look 11/25 he was found to have gastric necrosis requiring subtotal gastrectomy and placement of Abthera VAC dressing. The bowel was in discontinuity and he was transferred to [facility]. On 11/28 he underwent reexploration with Dinh-en-y esophagojejunostomy, feeding jejunostomy placement, diagnostic EGD, primary fascial closure Gastric necrosis Ischemic hepatopathy NGT to LIWS, do not manipulate NGT per general surgery orders from [facility]. Has feeding jejunostomy and tube feeds with Nepro 10 mL per hour had been started at [facility], continue for now with further management per general surgery. ZAINAB drains in place #1 anterior to anastomosis, #2 posterior to the anastomosis. Management per general surgery. Continue TPN renal formula 46 mL/hr. Intermittent lipids daily. General surgery recs appreciated per gen surg: restart tube feeds. CT abd/pelvis 12/03 without acute abdominal pathology. Had right upper quadrant ultrasound on 11/27/17 that demonstrated contracted gallbladder with sludge. No evidence of cholecystitis. Echogenicity in right liver related to focal fatty change or altered perfusion. Color Doppler interrogation through the region demonstrates patent vascularity. FEN/RENAL: JACLYN secondary to ischemic ATN HD as started 11/26 at [place]. Had HD 3 hours on 11/28 at [facility] with 1700 mL UF; HD today Has Delgado in place currently. Has R IJ Vascath. Monitor I/O and electrolytes. Nephrology consult. prealbumin low at 14 on 12/01. trend weekly. ID: Gastric perforation with large amount particulate peritoneal contamination 11/23 Acute Aspiration pneumonia Candidemia - reportedly blood cultures at OSH were positive. Will request records from microbiology. Patient had been on micafungin 100 mg IV daily (started at [facility]) with last administration at 10 AM on 11/29. Was previously on diflucan IV. On Zosyn 2.25 IV every 8 hours with last administration 11/29 at noon. Will continue zosyn/micafungin. Patient was evaluated by ophthalmology prior to transfer. I do not see an ophthalmology note in the transfer documentation. I have requested this document. Requested culture data from [facility]. Send blood culture x2 sets now. Sputum culture 11/24 with pansensitive Klebsiella pneumonia ID consult HEME: Thrombocytopenia Bilateral upper extremity DVTs Anemia secondary to acute blood loss-requiring transfusion U/s 11/26 BUE - thrombus R axillary, brachial and basilic veins and thrombus in left axillary and left brachial veins. U/s bilateral lower extremities 11/26 at [facility] negative from common femoral to popliteal vein levels. Arrived on heparin drip Hematology consult was obtained at [facility] and recommended heparin drip and transfuse prn for platelets <50k. Will use target PTT 40-65 now, no boluses. Monitor CBC 1 unit prbc 12/04. recheck in AM. ENDO: Monitor Glucose q4 hours and use low dose insulin sliding scale as indicated. PROPH: Discontinue heparin drip and start subcu for DVT prophylaxis. Protonix 40 mg IV daily for stress ulcer prophylaxis. ACCESS: R IJ vascath , L IJ CVL, L radial art line. All existing lines were replaced at [facility]. FULL CODE OVERALL IMPRESSION: Critically ill with recurrent respiratory failure. likely recurrent aspiration. continue ventilatory support with abx. Critical care time: 34 minutes, exclusive of separately billable procedures. (6) Acute bilateral deep vein thrombosis (DVT) of upper extremities Qualifiers: Affected thrombotic vein of extremity: brachial Qualified Code(s): I82.623 - Acute embolism and thrombosis of deep veins of upper extremity, bilateral (15) Acute respiratory failure Qualifiers: Respiratory failure complication: hypoxia Qualified Code(s): J96.01 - Acute respiratory failure with hypoxia
[2017-12-04 17:51] LABS: Hematocrit 22.3 % (39.0-51.0); Hemoglobin 7.7 gm/dL (13.0-17.0)
[2017-12-04] MEDS: Labetalol HCl Inj 100 MG/20 ML Vial IV.PUSH PRN (19:07)
[2017-12-05 01:30] LABS: Baso # (Auto) 0.1 th/mm3 (0.0-0.2); Baso % (Auto) 0.4 % (0.0-2.0); Eos # (Auto) 0.3 th/mm3 (0.0-0.4); Eos % (Auto) 1.2 % (0.0-4.0); Hematocrit 21.3 % (39.0-51.0); Hemoglobin 7.7 gm/dL (13.0-17.0); Lymph # (Auto) 2.3 th/mm3 (1.0-4.8); Lymph % (Auto) 9.3 % (9.0-44.0); Mean Corpuscular Hemoglobin 31.6 pg (27.0-34.0); Mean Corpuscular Volume 87.5 fL (80.0-100.0); Mean Platelet Volume 11.2 fL (7.0-11.0); Mono # (Auto) 2.2 th/mm3 (0.0-0.9); Mono % (Auto) 9.1 % (0.0-8.0); Neut # (Auto) 19.3 th/mm3 (1.8-7.7); Platelet Count 266 th/mm3 (150-450); Red Blood Count 2.43 mil/mm3 (4.50-5.90); White Blood Count 24.1 th/mm3 (4.0-11.0)
[2017-12-05 01:38] LABS: Mean Corpuscular HGB Conc 36.1 % (32.0-36.0)
[2017-12-05 02:37] LABS: Eosinophils 1 % (0-4); Lymphocytes 5 % (9-44); Monocytes 7 % (0-8); Myelocytes 3 % (0-0); Promyelocyte 1 % (0-0); Tallied Nucleated RBC 1 (0-0)
[2017-12-05 02:41] LABS: Acanthocytes Occ; Platelet Estimate Normal (Normal); Target Cells 1+
[2017-12-05 02:44] LABS: Polychromasia 2.2 % (0.0-1.9)
[2017-12-05 02:46] LABS: Toxic Granulation 1+
[2017-12-05 02:47] LABS: Dohle Bodies Present
[2017-12-05] MEDS: Oral Hygiene Kit OROPHARYNG SCH ×8 (03:38→16:14)
[2017-12-05] MEDS: Insulin NovoLOG Aspart Correctional Sugar Inj SQ SCH ×5 (03:39→17:07)
[2017-12-05] MEDS: Midazolam 50 MG/50 ML Inj 50 MG/50 ML BAG IV.CONT PRN ×3 (05:19→20:16)
[2017-12-05 06:15] LABS: Alanine Aminotransferase 209 U/L (12-78); Albumin 1.6 g/dL (3.4-5.0); Alkaline Phosphatase 128 U/L (45-117); Anion Gap 13 meq/L (5-15); Aspartate Aminotransferase 157 U/L (15-37); Blood Urea Nitrogen 94 mg/dL (7-18); Calcium 7.7 mg/dL (8.5-10.1); Carbon Dioxide 24.6 meq/L (21.0-32.0); Chloride 97 meq/L (98-107); Glomerular Filtration Rate 8 mL/min (>89); Glucose,Random 133 mg/dL (74-106); Magnesium 2.8 mg/dL (1.5-2.5); Potassium 4.6 meq/L (3.5-5.1); Sodium 135 meq/L (136-145); Total Protein 5.7 g/dL (6.4-8.2)
[2017-12-05] MEDS: Piperacil/Tazo 2.25 GM Premix 50 ML IV.SIG SCH ×3 (07:27→22:15)
[2017-12-05] MEDS: Chlorhexidine 0.12% Oral Kit 15 ML UDC OROPHARYNG SCH ×4 (08:26→20:17)
[2017-12-05] MEDS: Calcium Acetate 667 MG Capsule PO SCH ×3 (09:11→18:05)
[2017-12-05] MEDS: Pantoprazole Inj 40 MG Vial IV.PUSH SCH (09:12)
--- NOTE | 2017-12-05 10:00 | P.PNCC ---
Subjective Subjective Remarks/Hospital Course: Patient was recently admitted to [facility] 11/22 and transferred to [facility] 11/26/17 after the following hospital course: 47-year-old -[place] male with reportedly no past medical or past surgical history who was admitted to hospitalist service 11/22/17 after presenting with abdominal pain, nausea, vomiting. He had CT abd/pelvis with massive gastric distention. NG tube had been placed. I was called to patient's bedside for CODE BLUE PEA arrest. CPR was ongoing and patient had massive abdominal distension and gastric regurgitant in the airway. He was emergently intubated and large amount of gastric secretions suctioned from oropharynx. After 21 minutes of CPR, ROSC was obtained and he was profoundly hypotensive. Continued aggressive fluid resuscitation and initiated dopamine. He was transferred to [facility] where CVL and R radial art line were placed and he was given 7 L of crystalloid and albumin. CXR demonstrated pneumoperitoneum and Dr. Martin Gudino was called emergently and he immediately contacted OR for emergent ex lap. He had intraabdominal hypertension with IAP of 40 mmHg, though fortunately was able to be ventilated adequately after rocuronium 50 mg IV and was transferred to OR. Dr. Martin Gudino took to the operating room early in the morning on 11/23 and discovered tension pneumoperitoneum, massive gastric distension, ischemia of the proximal 2/3 of the stomach and large gastric perforation with massive intraperitoneal contamination with food particles. Dr. Isaacs placed 2 NGT and decompressed 2 L of succus. Patient had initial improvement in vital signs in the immediate postoperative period, however he subsequently became hypotensive requiring upward titration of levophed and addition of vasopressin and stress dose hydrocortisone. He remains on levophed 10 mcg/min, neosynephrine 80 mcg/ min, vasopressin 0.04 units/min with overall vasopressor requirement weaning overnight. He is oliguric and creatinine is continuing to climb. He was given 2 L of crystalloid and albumin overnight. He does have significant fluid losses with combination of abdominal dressing and NGT output, so I will give an additional L of crystalloid now to monitor hourly response as he certainly does not appear volume overloaded. Nonetheless Flotrac numbers are suggesting adequate volume status and we may be seeing the consequence of ischemic ATN. May ultimately require HD, however not at this time. Abdomen remains open and plan is to re-explore 11/25. 11/25: Patient has acceptable hemodynamics by Flotrac but remains septic with requirements for phenylephrine 200 mics per minute, Levophed 8 mics per minute and vasopressin 0.04 units/min for blood pressure support. This has improved overnight and the Bhavesh-Synephrine support has been weaned off completely. Acid base balance is acceptable. ATN has developed which will undoubtedly require hemodialysis. Potassium level is normal. He is at increased risk for an anesthetic now but there is an urgent need to check for residual gastric necrosis. 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 Since the source control surgery, the maintenance of normal acid-base balance has been less difficult. Patient remains anuric with a rising creatinine above 6.0. He is clearly ahead on volume and will benefit from dialysis. A 2 lumen hemodialysis catheter was placed on 11/25 and has been packed with dilute heparin solution. The right internal jugular central line is been in place for 4 days and accessed multiple times. The femoral art line has been in for 4 days. Shock liver was apparent after the cardiac arrest reflecting a transaminitis, elevated bilirubin, and prolonged INR. The INR has remained normal following the transfusion of 4 units of fresh frozen plasma prior to surgery yesterday. A 10% dextrose infusion continues because of ongoing problems with hypoglycemia. Thrombocytopenia at 37,000 persists. He has remained on antibiotic coverage with Pipracil/tazobactam and fungal coverage with fluconazole, all adjusted for renal failure. Present vasopressor requirements include levophed at 7 mics per minute and vasopressin at 0.04 units/min. The chest x-ray is consistent with minor aspiration at the time of his preoperative cardiac arrest on the floor and cultures have subsequently grown Klebsiella, pansensitive. The operative note will clarify the extent of the surgery but in essence the distal esophagus is stapled off and marked with 2 Prolene sutures. The antrum of the stomach is oversewn. Most of the stomach has been removed. The abdomen is open with a VAC dressing applied. Subjective: 11/29: Bowel was in discontinuity following subtotal gastrectomy and patient was transferred to [facility]. On reexploration 11/28 he underwent Dinh-en-y esophagojejunostomy, feeding jejunostomy placement, diagnostic EGD, primary fascial closure. Wound vac was applied to abdomen (though currently wet to dry dressing in place upon arrival). He was reportedly found to have candidemia and was started on micafungin and has undergone ophtho eval. Lines including CVL, Vascath and art line have all been changed at [facility] (though not clear when). He remains on mechanical ventilation and has been weaned off pressors. He was found to have BUE DVTs and is on heparin drip. He is on TPN and has been started on trickle tube feeds with Nepro via jejunostomy. NGT is to SHAHBAZ. He underwent HD postoperatively on 11/28. He has now been transferred back to [facility] for ongoing management. I have updated his father and stepmother. 11/30: Patient re-admitted s/p transfer from [facility] overnight, otherwise no acute issues. Scheduled to undergo HD today. 12/01: T-max 101.7, leukocytosis to 27,000 with bandemia. Now 3 days following Dinh-en-Y reconstruction of GI tract following sub-total gastrectomy for gastric necrosis. All new lines placed after diagnosis of candidemia. TPN infusing, jejunostomy at trickle flow and can be increased slowly per general surgery. 12/02: Marked leukocytosis with bandemia persists. Afebrile over last 24 hours. Leave NG tube across the esophageal anastomosis and surgical service will direct timing of contrast study about 7 days following surgery. Continue with spontaneous breathing trials. 12/03: extubated yesterday. since then, has not followed commands, and does not talk. appears to have clinically an aphasia, although his uremia or severe hypoactive delirium could present this way. purposeful movements. will obtain MRI to rule out acute ischemia, as this appears to be a new mental status change (11/29 /[facility] notes state interactive on ventilator). 12/04: reintubated overnight: more output from ZAINAB drains. hgb dropped to 7 this AM: receiving 1 unit prbc. MRI negative for acute change. EEG ordered today to rule out subclinical status epilepticus. also concern overnight for aspiration event. 12/05: T-max 99. WBC 24,000. Reintubated yesterday for respiratory failure probably related to aspiration. Trickle feeding continues through jejunostomy. Nasogastric tube is through the anastomosis and is to low intermittent Objective Vital Signs / I&O: Vital Signs 12/04/17 10:00 12/04/17 10:12 12/04/17 10:15 Temperature Pulse Rate 96 H 95 H 95 H Respiratory Rate 68 H 78 H 90 H Blood Pressure 156/77 H Pulse Oximetry 100 100 100 12/04/17 10:30 12/04/17 10:45 12/04/17 11:00 Temperature Pulse Rate 94 H 94 H 94 H Respiratory Rate 88 H 90 H 78 H Blood Pressure Pulse Oximetry 100 100 100 12/04/17 11:02 12/04/17 11:04 12/04/17 11:12 Temperature Pulse Rate 94 H 94 H Respiratory Rate 18 19 92 H Blood Pressure 159/80 H Pulse Oximetry 100 100 12/04/17 11:15 12/04/17 11:17 12/04/17 11:30 Temperature 97.6 F Pulse Rate 94 H 94 H 93 H Respiratory Rate 92 H 19 76 H Blood Pressure 148/63 H Pulse Oximetry 100 100 99 12/04/17 11:35 12/04/17 11:45 12/04/17 11:53 Temperature 97.7 F Pulse Rate 94 H 92 H 91 H Respiratory Rate 19 76 H Blood Pressure 143/62 H Pulse Oximetry 99 100 12/04/17 12:00 12/04/17 12:12 12/04/17 12:15 Temperature 97.9 F Pulse Rate 91 H 90 89 Respiratory Rate 80 H 90 H 82 H Blood Pressure 167/86 H Pulse Oximetry 100 99 99 12/04/17 12:30 12/04/17 12:45 12/04/17 13:00 Temperature Pulse Rate 90 90 89 Respiratory Rate 73 H 60 H 60 H Blood Pressure Pulse Oximetry 99 99 99 12/04/17 13:12 12/04/17 13:15 12/04/17 13:30 Temperature Pulse Rate 89 90 91 H Respiratory Rate 70 H 61 H 73 H Blood Pressure 172/83 H Pulse Oximetry 99 99 99 12/04/17 13:45 12/04/17 14:00 12/04/17 14:08 Temperature Pulse Rate 93 H 93 H Respiratory Rate 75 H 74 H 19 Blood Pressure Pulse Oximetry 99 99 12/04/17 14:12 12/04/17 14:15 12/04/17 14:30 Temperature Pulse Rate 94 H 93 H 92 H Respiratory Rate 63 H 69 H 62 H Blood Pressure 174/80 H Pulse Oximetry 99 99 99 12/04/17 14:45 12/04/17 15:00 12/04/17 15:12 Temperature Pulse Rate 96 H 92 H 92 H Respiratory Rate 63 H 57 H 53 H Blood Pressure 178/79 H Pulse Oximetry 99 99 99 12/04/17 15:15 12/04/17 15:30 12/04/17 15:45 Temperature Pulse Rate 92 H 91 H 91 H Respiratory Rate 62 H 67 H 52 H Blood Pressure Pulse Oximetry 100 100 99 12/04/17 16:00 12/04/17 16:06 12/04/17 16:12 Temperature 98 F Pulse Rate 90 89 92 H Respiratory Rate 49 H 23 53 H Blood Pressure 178/81 H Pulse Oximetry 99 99 12/04/17 16:15 12/04/17 16:30 12/04/17 16:45 Temperature Pulse Rate 90 91 H 91 H Respiratory Rate 58 H 75 H 76 H Blood Pressure Pulse Oximetry 99 99 99 12/04/17 17:00 12/04/17 17:12 12/04/17 17:15 Temperature Pulse Rate 90 91 H 91 H Respiratory Rate 73 H 79 H 72 H Blood Pressure 177/84 H Pulse Oximetry 99 99 99 12/04/17 17:30 12/04/17 17:45 12/04/17 18:00 Temperature Pulse Rate 91 H 91 H 94 H Respiratory Rate 73 H 75 H 56 H Blood Pressure Pulse Oximetry 99 99 99 12/04/17 18:12 12/04/17 18:15 12/04/17 18:30 Temperature Pulse Rate 91 H 90 91 H Respiratory Rate 74 H 72 H 72 H Blood Pressure 172/90 H Pulse Oximetry 99 99 99 12/04/17 18:45 12/04/17 19:00 12/04/17 19:12 Temperature Pulse Rate 93 H 91 H 80 Respiratory Rate 75 H 82 H 73 H Blood Pressure 145/72 H Pulse Oximetry 99 99 99 12/04/17 19:15 12/04/17 19:40 12/04/17 20:00 Temperature Pulse Rate 80 78 Respiratory Rate 72 H 18 77 H Blood Pressure Pulse Oximetry 99 99 100 12/04/17 20:12 12/04/17 21:00 12/04/17 21:06 Temperature Pulse Rate 78 79 80 Respiratory Rate 77 H 78 H 18 Blood Pressure 147/74 H Pulse Oximetry 100 100 12/04/17 21:12 12/04/17 22:00 10/30/18 22:08 Temperature Pulse Rate 78 81 Respiratory Rate 78 H 81 H 18 Blood Pressure 168/80 H Pulse Oximetry 100 100 99 12/04/17 22:12 12/04/17 23:00 12/04/17 23:12 Temperature Pulse Rate 82 82 83 Respiratory Rate 81 H 70 H 81 H Blood Pressure 174/88 H 193/86 H Pulse Oximetry 100 100 100 12/04/17 23:42 12/05/17 00:00 12/05/17 00:12 Temperature 98.5 F 98.5 F Pulse Rate 86 85 85 Respiratory Rate 18 83 H 82 H Blood Pressure 156/63 H 185/85 H Pulse Oximetry 99 100 12/05/17 00:57 12/05/17 01:00 12/05/17 01:12 Temperature Pulse Rate 85 86 Respiratory Rate 18 86 H 86 H Blood Pressure 186/86 H Pulse Oximetry 100 99 99 12/05/17 02:00 12/05/17 03:39 12/05/17 04:33 Temperature Pulse Rate 88 85 Respiratory Rate 71 H 16 18 Blood Pressure Pulse Oximetry 99 100 12/05/17 07:00 12/05/17 07:12 12/05/17 07:15 Temperature Pulse Rate 92 H 93 H 93 H Respiratory Rate 48 H 53 H 47 H Blood Pressure 185/84 H Pulse Oximetry 100 100 100 12/05/17 07:30 12/05/17 07:45 12/05/17 08:00 Temperature 99 F Pulse Rate 93 H 93 H 93 H Respiratory Rate 55 H 56 H 56 H Blood Pressure Pulse Oximetry 100 100 100 12/05/17 08:32 Temperature Pulse Rate 93 H Respiratory Rate 18 Blood Pressure Pulse Oximetry 99 Intake & Output 12/04/17 12/05/17 12/05/17 18:59 06:59 18:59 Intake Total 1740 / 1740 400 / 400 300 / 300 Output Total 1974 / 1974 Balance -235 / -235 400 / 400 300 / 300 Weight 88.1 kg Intake: IV 1600 / 1600 400 / 400 300 / 300 Versed Inj 50 mg In 50 ml @ 2 100 / 100 100 / 100 MG/HR 2 mls/hr IV.CONT TITRATE PRN Rx#:[id number] Intralipid 20% Inj 250 ML @ 31. 250 / 250 25 mls/hr IV.SIG Q24H COLE Rx#: [id number] Mycamine Inj 100 MG In NS Inj 200 / 200 100 ML @ 100 mls/hr IV.SIG Q24H COLE Rx#:[id number] Zosyn 2.25 GM Premix 50 ML @ 50 / 50 50 / 50 50 / 50 100 mls/hr IV.SIG Q8H COLE Rx#: [id number] fentaNYL 10 mcg/mL Premix Drip 250 / 250 250 / 250 2,500 mcg In 250 ml @ 50 MCG/HR 5 mls/hr IV.SIG TITRATE PRN Rx #:[id number] NS Inj 1,000 ML @ As Directed 1000 / 1000 OTHER .Q0M PRN Rx#:[id number] Tube Feeding 140 / 140 Intake (Blood Product) Amt 0 / 0 Rbc As-3 Leukoreduced Unit 0 / 0 [id number] Output: Gastric Drainage 700 / 700 Right Nare Nasogastric Tube 700 / 700 Wound Drainage 1275 / 1275 # 1 Right Abdomen 25 / 25 # 2 Right Abdomen 1250 / 1250 Other: Date of Last Bowel Movement 12/03/17 Result Diagrams: 12/05/17 01:03 12/05/17 05:30 Objective Remarks: GEN: Chronically ill-appearing, no distress HEENT: NCAT, pupils 2 mm and reactive bilaterally NECK: RIJ vasc-cath and LIJ TLC present, clean/ dry/ intact CARDIO: Borderline bradycardic to high 60s, no murmur, neck veins are full. PULM: prvc, fio2 45%. equal chest rise. peep 5. Few mobile secretions otherwise clear. ABD: Midline surgical bandages clean/ dry/ intact. ZAINAB #1 is anterior to esophagojejunostomy anastomosis, ZAINAB #2 posterior, both with serosanguineous drainage. Abdomen soft. Fascia is closed, skin is open, depth of wound is minimal. EXT/MSK: Anasarca SKIN: No rashes or lesions NEURO: Moves 4 limbs spontaneously. Purposeful with arms. nonverbal. tracks with eyes. does not follow commands. Assessment and Plan - Problem List (1) Gastric perforation Code(s): K25.5 - Chronic or unspecified gastric ulcer with perforation Status : Acute (2) Status post total gastrectomy and Dinh-en-Y esophagojejunal anastomosis Code(s): Z90.3 - Acquired absence of stomach [part of]; Z98.0 - Intestinal bypass and anastomosis status Status: Acute (3) Ischemic hepatitis Code(s): K75.9 - Inflammatory liver disease, unspecified Status: Acute (4) Gastric necrosis Code(s): K31.89 - Other diseases of stomach and duodenum Status: Acute (5) Thrombocytopenia Code(s): D69.6 - Thrombocytopenia, unspecified Status: Acute (6) Acute bilateral deep vein thrombosis (DVT) of upper extremities Code(s): I82.623 - Acute embolism and thrombosis of deep veins of upper extremity, bilateral Status: Acute (7) Anemia Code(s): D64.9 - Anemia, unspecified Status: Acute (8) Leukocytosis Code(s): D72.829 - Elevated white blood cell count, unspecified Status: Acute (9) Candidemia Code(s): B37.7 - Candidal sepsis Status: Acute (10) On total parenteral nutrition (TPN) Code(s): Z78.9 - Other specified health status Status: Acute (11) Hx of cardiac arrest Code(s): Z86.74 - Personal history of sudden cardiac arrest Status: Resolved (12) Acute hemodialysis patient Code(s): Z99.2 - Dependence on renal dialysis Status: Acute (13) JACLYN (acute kidney injury) Code(s): N17.9 - Acute kidney failure, unspecified Status: Acute (14) Aspiration pneumonia Code(s): J69.0 - Pneumonitis due to inhalation of food and vomit Status: Acute (15) Acute respiratory failure Code(s): J96.00 - Acute respiratory failure, unspecified whether with hypoxia or hypercapnia Status: Acute - Assessment and Plan Plan: NEURO: Acute metabolic encephalopathy- severe MRI 12/03: negative for acute change EEG today. could be delirium vs. uremic encephalopathy RESP: Acute hypoxic and hypercarbic respiratory failure- recurrent, severe Healthcare associated aspiration pneumonia extub 12/02, reintubated 12/03 overnight wean fio2 to keep spo2 > 90% vent bundle aggressive pulmonary toilet PT/OT Required reintubation 12/04 CV: Cardiac arrest 11/23/17 (PEA arrest due to shock secondary to acute gastric perf and tension pneumoperitoneum) Septic shock, resolved Now off pressors Hemodynamic monitoring with L radial art line Concern for anoxic injury at the time of arrest. GI: s/p gastric perforation with tension pneumoperitoneum status post ex lap with primary repair of anterior gastric perforation with stapler 11/23 On second look 11/25 he was found to have gastric necrosis requiring subtotal gastrectomy and placement of Abthera VAC dressing. The bowel was in discontinuity and he was transferred to [facility]. On 11/28 he underwent reexploration with Dinh-en-y esophagojejunostomy, feeding jejunostomy placement, diagnostic EGD, primary fascial closure Gastric necrosis Ischemic hepatopathy NGT to LIWS, do not manipulate NGT per general surgery orders from [facility]. Has feeding jejunostomy and tube feeds with Nepro 10 mL per hour had been started at [facility], continue for now with further management per general surgery. ZAINAB drains in place #1 anterior to anastomosis, #2 posterior to the anastomosis. Management per general surgery. Continue TPN renal formula 46 mL/hr. Intermittent lipids daily. General surgery recs appreciated per gen surg: restart tube feeds. CT abd/pelvis 12/03 without acute abdominal pathology. Had right upper quadrant ultrasound on 11/27/17 that demonstrated contracted gallbladder with sludge. No evidence of cholecystitis. Echogenicity in right liver related to focal fatty change or altered perfusion. Color Doppler interrogation through the region demonstrates patent vascularity. FEN/RENAL: JACLYN secondary to ischemic ATN HD as started 11/26 at [facility]. Had HD 3 hours on 11/28 at [facility] with 1700 mL UF; HD today Has Delgado in place currently. Has R IJ Vascath. Monitor I/O and electrolytes. Nephrology consult. prealbumin low at 14 on 12/01. trend weekly. ID: Gastric perforation with large amount particulate peritoneal contamination 11/23 Acute Aspiration pneumonia Candidemia - reportedly blood cultures at OSH were positive. Will request records from microbiology. Patient had been on micafungin 100 mg IV daily (started at [facility]) with last administration at 10 AM on 11/29. Was previously on diflucan IV. On Zosyn 2.25 IV every 8 hours with last administration 11/29 at noon. Will continue zosyn/micafungin. Patient was evaluated by ophthalmology prior to transfer. I do not see an ophthalmology note in the transfer documentation. I have requested this document. Requested culture data from [facility]. Send blood culture x2 sets now. Sputum culture 11/24 with pansensitive Klebsiella pneumonia ID consult HEME: Thrombocytopenia Bilateral upper extremity DVTs Anemia secondary to acute blood loss-requiring transfusion U/s 11/26 BUE - thrombus R axillary, brachial and basilic veins and thrombus in left axillary and left brachial veins. U/s bilateral lower extremities 11/26 at [facility] negative from common femoral to popliteal vein levels. Arrived on heparin drip Hematology consult was obtained at [facility] and recommended heparin drip and transfuse prn for platelets <50k. Will use target PTT 40-65 now, no boluses. Monitor CBC 1 unit prbc 12/04. recheck in AM. ENDO: Monitor Glucose q4 hours and use low dose insulin sliding scale as indicated. PROPH: Discontinue heparin drip and start subcu for DVT prophylaxis. Protonix 40 mg IV daily for stress ulcer prophylaxis. ACCESS: R IJ vascath , L IJ CVL, L radial art line. All existing lines were replaced at [facility]. FULL CODE OVERALL IMPRESSION: Critically ill with recurrent respiratory failure, likely recurrent aspiration, continue ventilatory support, nutrition, Abx. Overall impression: This gentleman is critically ill and nutritionally depleted. He has deteriorated clinical status requiring placement back on mechanical ventilation. Persistent leukocytosis is worrisome but he remains afebrile. I anticipate a prolonged postoperative course and continuing pulmonary complications. Critical care 42 minutes aside from procedures (6) Acute bilateral deep vein thrombosis (DVT) of upper extremities Qualifiers: Affected thrombotic vein of extremity: brachial Qualified Code(s): I82.623 - Acute embolism and thrombosis of deep veins of upper extremity, bilateral (15) Acute respiratory failure Qualifiers: Respiratory failure complication: hypoxia Qualified Code(s): J96.01 - Acute respiratory failure with hypoxia
[2017-12-05] MEDS: Heparin 10,000 UNITS/10 ML Vial (for IV use) OTHER PRN (10:19)
--- NOTE | 2017-12-05 11:55 | P.PNID ---
Subjective Remarks: Patient reintubated 12/04 for acute hypoxic respiratory failure. On the vent. hemodialysis in progress. Discussed with RN. Noted to have a fair amount of fluid drainage from the NGT. Afebrile. White blood cell count is still elevated. Sputum culture pending. This is a 46-year-old black male who initially was admitted to the hospital on 11/22/2017. The patient was found to have no pneumoperitoneum on 11/23/2017. He presented with severe abdominal pain. He was also noted to have ischemia of the proximal two-thirds of the stomach and there was a large gastric perforation and contamination of food particles into the peritoneum. The patient ended up being transferred to [facility] in [place] and he underwent subtotal gastrectomy and Dinh-en-Y esophageal jejunostomy and a feeding jejunostomy tube placement. He was put on antifungal medication for candidemia. The results of the cultures are not available to me at this time. The culture reportedly was from [facility] in [place]. He was transferred back to [facility] on 11/29/[address] [facility]. The reason for this consultation is for candidemia. Antibiotics: Micafungin Zosyn Allergies/Adverse Reactions: Allergies No Known Allergies Allergy (Verified 11/22/17 02:38) Objective Vital Signs 12/04/17 11:53 12/04/17 12:00 12/04/17 12:12 Temperature 97.9 F Pulse Rate 91 H 91 H 90 Respiratory Rate 80 H 90 H Blood Pressure 167/86 H Pulse Oximetry 100 99 12/04/17 12:15 12/04/17 12:30 12/04/17 12:45 Temperature Pulse Rate 89 90 90 Respiratory Rate 82 H 73 H 60 H Blood Pressure Pulse Oximetry 99 99 99 12/04/17 13:00 12/04/17 13:12 12/04/17 13:15 Temperature Pulse Rate 89 89 90 Respiratory Rate 60 H 70 H 61 H Blood Pressure 172/83 H Pulse Oximetry 99 99 99 12/04/17 13:30 12/04/17 13:45 12/04/17 14:00 Temperature Pulse Rate 91 H 93 H 93 H Respiratory Rate 73 H 75 H 74 H Blood Pressure Pulse Oximetry 99 99 99 12/04/17 14:08 12/04/17 14:12 12/04/17 14:15 Temperature Pulse Rate 94 H 93 H Respiratory Rate 19 63 H 69 H Blood Pressure 174/80 H Pulse Oximetry 99 99 12/04/17 14:30 12/04/17 14:45 12/04/17 15:00 Temperature Pulse Rate 92 H 96 H 92 H Respiratory Rate 62 H 63 H 57 H Blood Pressure Pulse Oximetry 99 99 99 12/04/17 15:12 12/04/17 15:15 12/04/17 15:30 Temperature Pulse Rate 92 H 92 H 91 H Respiratory Rate 53 H 62 H 67 H Blood Pressure 178/79 H Pulse Oximetry 99 100 100 12/04/17 15:45 12/04/17 16:00 12/04/17 16:06 Temperature 98 F Pulse Rate 91 H 90 89 Respiratory Rate 52 H 49 H 23 Blood Pressure Pulse Oximetry 99 99 12/04/17 16:12 12/04/17 16:15 12/04/17 16:30 Temperature Pulse Rate 92 H 90 91 H Respiratory Rate 53 H 58 H 75 H Blood Pressure 178/81 H Pulse Oximetry 99 99 99 12/04/17 16:45 12/04/17 17:00 12/04/17 17:12 Temperature Pulse Rate 91 H 90 91 H Respiratory Rate 76 H 73 H 79 H Blood Pressure 177/84 H Pulse Oximetry 99 99 99 12/04/17 17:15 12/04/17 17:30 12/04/17 17:45 Temperature Pulse Rate 91 H 91 H 91 H Respiratory Rate 72 H 73 H 75 H Blood Pressure Pulse Oximetry 99 99 99 12/04/17 18:00 12/04/17 18:12 12/04/17 18:15 Temperature Pulse Rate 94 H 91 H 90 Respiratory Rate 56 H 74 H 72 H Blood Pressure 172/90 H Pulse Oximetry 99 99 99 12/04/17 18:30 12/04/17 18:45 12/04/17 19:00 Temperature Pulse Rate 91 H 93 H 91 H Respiratory Rate 72 H 75 H 82 H Blood Pressure Pulse Oximetry 99 99 99 12/04/17 19:12 12/04/17 19:15 12/04/17 19:40 Temperature Pulse Rate 80 80 Respiratory Rate 73 H 72 H 18 Blood Pressure 145/72 H Pulse Oximetry 99 99 99 12/04/17 20:00 12/04/17 20:12 12/04/17 21:00 Temperature Pulse Rate 78 78 79 Respiratory Rate 77 H 77 H 78 H Blood Pressure 147/74 H Pulse Oximetry 100 100 100 12/04/17 21:06 12/04/17 21:12 12/04/17 22:00 Temperature Pulse Rate 80 78 81 Respiratory Rate 18 78 H 81 H Blood Pressure 168/80 H Pulse Oximetry 100 100 12/04/17 22:08 12/04/17 22:12 12/04/17 23:00 Temperature Pulse Rate 82 82 Respiratory Rate 18 81 H 70 H Blood Pressure 174/88 H Pulse Oximetry 99 100 100 12/04/17 23:12 12/04/17 23:42 12/05/17 00:00 Temperature 98.5 F Pulse Rate 83 86 85 Respiratory Rate 81 H 18 83 H Blood Pressure 193/86 H 156/63 H Pulse Oximetry 100 99 12/05/17 00:12 12/05/17 00:57 12/05/17 01:00 Temperature 98.5 F Pulse Rate 85 85 Respiratory Rate 82 H 18 86 H Blood Pressure 185/85 H Pulse Oximetry 100 100 99 12/05/17 01:12 12/05/17 02:00 12/05/17 03:39 Temperature Pulse Rate 86 88 85 Respiratory Rate 86 H 71 H 16 Blood Pressure 186/86 H Pulse Oximetry 99 99 12/05/17 04:33 12/05/17 07:00 12/05/17 07:12 Temperature Pulse Rate 92 H 93 H Respiratory Rate 18 48 H 53 H Blood Pressure 185/84 H Pulse Oximetry 100 100 100 12/05/17 07:15 12/05/17 07:30 12/05/17 07:45 Temperature Pulse Rate 93 H 93 H 93 H Respiratory Rate 47 H 55 H 56 H Blood Pressure Pulse Oximetry 100 100 100 12/05/17 08:00 12/05/17 08:32 Temperature 99 F Pulse Rate 93 H 93 H Respiratory Rate 56 H 18 Blood Pressure Pulse Oximetry 100 99 Intake & Output 12/04/17 12/05/17 12/05/17 18:59 06:59 18:59 Intake Total 1740 / 1740 400 / 400 300 / 300 Output Total 1974 Balance -235 / -235 400 / 400 300 / 300 Weight 88.1 kg Intake: IV 1600 / 1600 400 / 400 300 / 300 Versed Inj 50 mg In 50 ml @ 2 100 / 100 100 / 100 MG/HR 2 mls/hr IV.CONT TITRATE PRN Rx#:[id number] Intralipid 20% Inj 250 ML @ 31. 250 / 250 25 mls/hr IV.SIG Q24H COLE Rx#: [id number] Mycamine Inj 100 MG In NS Inj 200 / 200 100 ML @ 100 mls/hr IV.SIG Q24H COLE Rx#:[id number] Zosyn 2.25 GM Premix 50 ML @ 50 / 50 50 / 50 50 / 50 100 mls/hr IV.SIG Q8H COLE Rx#: [id number] fentaNYL 10 mcg/mL Premix Drip 250 / 250 250 / 250 2,500 mcg In 250 ml @ 50 MCG/HR 5 mls/hr IV.SIG TITRATE PRN Rx #:[id number] NS Inj 1,000 ML @ As Directed 1000 / 1000 OTHER .Q0M PRN Rx#:[id number] Tube Feeding 140 / 140 Intake (Blood Product) Amt 0 / 0 Rbc As-3 Leukoreduced Unit 0 / 0 [id number] Output: Gastric Drainage 700 / 700 Right Nare Nasogastric Tube 700 / 700 Wound Drainage 1275 / 1275 # 1 Right Abdomen 25 / 25 # 2 Right Abdomen 1250 / 1250 Other: Date of Last Bowel Movement 12/03/17 11/30/17 13:33 Blood - Peripheral Aerobic Blood Culture - Final No growth in 5 days 11/30/17 13:33 Blood - Peripheral Anaerobic Blood Culture - Final No growth in 5 days 11/30/17 03:19 Blood - Peripheral Aerobic Blood Culture - Final No growth in 5 days 11/30/17 03:19 Blood - Peripheral Anaerobic Blood Culture - Final No growth in 5 days 12/04/17 00:15 Sputum - Endotracheal Gram Stain - Final 12/04/17 00:15 Sputum - Endotracheal Sputum Culture - Pending Lab - Hematology Results 12/03/17 12/04/17 12/04/17 23:20 04:00 10:00 WBC 28.4 H 27.9 H RBC 2.66 L 2.57 L Hgb 8.4 L 8.1 L 7.1 L Hct 23.0 L 22.3 L 20.9 L* MCV 86.3 87.0 MCH 31.6 31.4 MCHC 36.7 H 36.1 H RDW 15.0 15.0 Plt Count 167 D 177 MPV 12.2 H 11.2 H Prelim Diff (Auto) Slide review pending Neut % (Auto) 87.6 H Lymph % (Auto) 3.8 L [place] % (Auto) 7.8 Eos % (Auto) 0.4 Baso % (Auto) 0.4 Neut # (Auto) 24.4 H Lymph # (Auto) 1.1 [place] # (Auto) 2.2 H Eos # (Auto) 0.1 Baso # (Auto) 0.1 WBC Differential Manual diff final Seg Neuts % (Manual) 70 Band Neuts % (Manual) 16 H Lymphocytes % (Manual) 3 L Monocytes % (Manual) 7 Eosinophils % (Manual) Basophils % (Manual) Metamyelocytes % (Man) 4 H Myelocytes % (Man) Promyelocytes % (Man) Abs Neuts (Manual) 25.1 H Nucleated RBCs/100 WBC 1 H Differential Comment . Toxic Granulation 1+ H Dohle Bodies Present H Platelet Estimate Normal Platelet Morphology Enlarged H Polychromasia Target Cells Acanthocytes (Spur) Occ H Keratocytes Occ H 12/04/17 12/05/17 15:00 01:03 WBC 24.1 H RBC 2.43 L Hgb 7.7 L 7.7 L Hct 22.3 L 21.3 L MCV 87.5 MCH 31.6 MCHC 36.1 H RDW 15.0 Plt Count 266 D MPV 11.2 H Prelim Diff (Auto) Slide review pending Neut % (Auto) 80.0 H Lymph % (Auto) 9.3 [place] % (Auto) 9.1 H Eos % (Auto) 1.2 Baso % (Auto) 0.4 Neut # (Auto) 19.3 H Lymph # (Auto) 2.3 [place] # (Auto) 2.2 H Eos # (Auto) 0.3 Baso # (Auto) 0.1 WBC Differential Manual diff final Seg Neuts % (Manual) 79 H Band Neuts % (Manual) 3 Lymphocytes % (Manual) 5 L Monocytes % (Manual) 7 Eosinophils % (Manual) 1 Basophils % (Manual) 1 Metamyelocytes % (Man) Myelocytes % (Man) 3 H Promyelocytes % (Man) 1 H Abs Neuts (Manual) 20.7 H Nucleated RBCs/100 WBC 1 H Differential Comment . Toxic Granulation 1+ H Dohle Bodies Present H Platelet Estimate Normal Platelet Morphology Enlarged H Polychromasia 2.2 H Target Cells 1+ H Acanthocytes (Spur) Occ H Keratocytes Occ H Lab - Chemistry Results 12/03/17 12/03/17 12/03/17 13:08 17:44 20:32 Sodium Potassium Chloride Carbon Dioxide Anion Gap BUN Creatinine Estimated GFR POC Glucose 124 H 155 H 126 H Random Glucose Calcium Phosphorus Magnesium Total Bilirubin AST ALT Alkaline Phosphatase Total Protein Albumin 12/04/17 12/04/17 12/04/17 00:58 03:57 04:00 Sodium 137 Potassium 4.5 Chloride 98 Carbon Dioxide 27.1 Anion Gap 12 BUN 72 H Creatinine 6.77 H Estimated GFR 11 L POC Glucose 165 H 145 H Random Glucose 134 H Calcium 7.9 L Phosphorus 5.8 H Magnesium 2.6 H Total Bilirubin 2.6 H AST 218 H ALT 246 H Alkaline Phosphatase 136 H Total Protein 5.9 L Albumin 1.7 L 12/04/17 12/04/17 12/04/17 10:12 17:33 21:49 Sodium Potassium Chloride Carbon Dioxide Anion Gap BUN Creatinine Estimated GFR POC Glucose 129 H 123 H 124 H Random Glucose Calcium Phosphorus Magnesium Total Bilirubin AST ALT Alkaline Phosphatase Total Protein Albumin 12/05/17 12/05/17 12/05/17 01:29 05:30 11:24 Sodium 135 L Potassium 4.6 Chloride 97 L Carbon Dioxide 24.6 Anion Gap 13 BUN 94 H Creatinine 8.38 H Estimated GFR 8 L POC Glucose 124 H 128 H Random Glucose 133 H Calcium 7.7 L Phosphorus 6.0 H Magnesium 2.8 H Total Bilirubin 2.9 H AST 157 H ALT 209 H Alkaline Phosphatase 128 H Total Protein 5.7 L Albumin 1.6 L Imaging: ITS Impressions Head MRI 12/03/17 00:00 CONCLUSION: 1. Minimal nonspecific periventricular white matter changes. 2. No restricted diffusion to suggest an acute ischemic event. 3. No evidence for significant ischemic changes. Chest X-Ray 12/04/17 00:01 CONCLUSION: 1. No significant change left greater than the right consolidation and effusions at the bases. 2. Lines and tubes as above. Endotracheal tube tip is approximately 2.7 cm above the [place]. Abdomen/Pelvis CT 12/04/17 00:02 CONCLUSION: 1. Interim midline laparotomy and gastrectomy with apparent Dinh-en-Y. 2. Bowel gas pattern consistent with obstruction of the duodenum and proximal jejunum. I don't see a mass. There does seem to be some jejunal wall thickening around the jejunostomy tube. 3. Wall thickening and mucosal enhancement of the colon consistent with moderate severity colitis. C. difficile colitis would be in the differential. 4. Solid organs are within normal limits. 5. Small ascites. Also diffuse body wall edema/anasarca. No perceptible hemorrhage. Chest CT 12/04/17 00:06 CONCLUSION: 1. Left greater than right pleural effusions and basilar atelectasis. 2. No hemorrhage or hematoma demonstrated. 3. Distended and fluid-filled esophagus. No wall thickening. Patient is status post gastrectomy. Nasogastric tube is at the GE junction. 4. Body wall edema/anasarca. Physical Exam: PHYSICAL EXAMINATION: GENERAL: Patient on the vent. HEENT: No icterus. NECK: Supple without adenopathy or swelling. LUNGS: Decreased breath sounds. HEART: Regular S1, S2. No audible murmur. ABDOMEN: ZAINAB tube exits the right abdomen and has serosanguineous drainage. EXTREMITIES: No clubbing or cyanosis. Swelling of the upper extremities. SKIN: No diffuse rash. NEUROLOGIC: unable to assess, intubated. PSYCHIATRIC: Unable to assess. Assessment and Plan - Plan IMPRESSION: 1. Candidemia following gastric perforation and gastric ischemia. Blood culture at [facility] in [place] on 11/26 had Starr glabrata. Repeat blood culture is negative. 2. Status post abdominal surgery. 3. Acute respiratory failure. 4. Aspiration. 5. Acute kidney disease. 5. Recent cardiac arrest. 6. Leukocytosis. RECOMMENDATIONS: 1. Continue micafungin for candidemia. 2. Continue piperacillin/tazobactam. 3. Monitor sputum culture. 4. Monitor white blood cell count. 5. Monitor the temperature.
--- NOTE | 2017-12-05 13:51 | P.PNGS ---
Subjective Interval history: Intubated/Sedated Family at bedside Physical Exam Vital signs: Vital Signs 12/04/17 14:00 12/04/17 14:08 12/04/17 14:12 Temperature Pulse Rate 93 H 94 H Respiratory Rate 74 H 19 63 H Blood Pressure 174/80 H Pulse Oximetry 99 99 12/04/17 14:15 12/04/17 14:30 12/04/17 14:45 Temperature Pulse Rate 93 H 92 H 96 H Respiratory Rate 69 H 62 H 63 H Blood Pressure Pulse Oximetry 99 99 99 12/04/17 15:00 12/04/17 15:12 12/04/17 15:15 Temperature Pulse Rate 92 H 92 H 92 H Respiratory Rate 57 H 53 H 62 H Blood Pressure 178/79 H Pulse Oximetry 99 99 100 12/04/17 15:30 12/04/17 15:45 12/04/17 16:00 Temperature 98 F Pulse Rate 91 H 91 H 90 Respiratory Rate 67 H 52 H 49 H Blood Pressure Pulse Oximetry 100 99 99 12/04/17 16:06 12/04/17 16:12 12/04/17 16:15 Temperature Pulse Rate 89 92 H 90 Respiratory Rate 23 53 H 58 H Blood Pressure 178/81 H Pulse Oximetry 99 99 12/04/17 16:30 12/04/17 16:45 12/04/17 17:00 Temperature Pulse Rate 91 H 91 H 90 Respiratory Rate 75 H 76 H 73 H Blood Pressure Pulse Oximetry 99 99 99 12/04/17 17:12 12/04/17 17:15 12/04/17 17:30 Temperature Pulse Rate 91 H 91 H 91 H Respiratory Rate 79 H 72 H 73 H Blood Pressure 177/84 H Pulse Oximetry 99 99 99 12/04/17 17:45 12/04/17 18:00 12/04/17 18:12 Temperature Pulse Rate 91 H 94 H 91 H Respiratory Rate 75 H 56 H 74 H Blood Pressure 172/90 H Pulse Oximetry 99 99 99 12/04/17 18:15 12/04/17 18:30 12/04/17 18:45 Temperature Pulse Rate 90 91 H 93 H Respiratory Rate 72 H 72 H 75 H Blood Pressure Pulse Oximetry 99 99 99 12/04/17 19:00 12/04/17 19:12 12/04/17 19:15 Temperature Pulse Rate 91 H 80 80 Respiratory Rate 82 H 73 H 72 H Blood Pressure 145/72 H Pulse Oximetry 99 99 99 12/04/17 19:40 12/04/17 20:00 12/04/17 20:12 Temperature Pulse Rate 78 78 Respiratory Rate 18 77 H 77 H Blood Pressure 147/74 H Pulse Oximetry 99 100 100 12/04/17 21:00 12/04/17 21:06 12/04/17 21:12 Temperature Pulse Rate 79 80 78 Respiratory Rate 78 H 18 78 H Blood Pressure 168/80 H Pulse Oximetry 100 100 12/04/17 22:00 12/04/17 22:08 12/04/17 22:12 Temperature Pulse Rate 81 82 Respiratory Rate 81 H 18 81 H Blood Pressure 174/88 H Pulse Oximetry 100 99 100 12/04/17 23:00 12/04/17 23:12 12/04/17 23:42 Temperature Pulse Rate 82 83 86 Respiratory Rate 70 H 81 H 18 Blood Pressure 193/86 H Pulse Oximetry 100 100 12/05/17 00:00 12/05/17 00:12 12/05/17 00:57 Temperature 98.5 F 98.5 F Pulse Rate 85 85 Respiratory Rate 83 H 82 H 18 Blood Pressure 156/63 H 185/85 H Pulse Oximetry 99 100 100 12/05/17 01:00 12/05/17 01:12 12/05/17 02:00 Temperature Pulse Rate 85 86 88 Respiratory Rate 86 H 86 H 71 H Blood Pressure 186/86 H Pulse Oximetry 99 99 99 12/05/17 03:39 12/05/17 04:33 12/05/17 07:00 Temperature Pulse Rate 85 92 H Respiratory Rate 16 18 48 H Blood Pressure Pulse Oximetry 100 100 12/05/17 07:12 12/05/17 07:15 12/05/17 07:30 Temperature Pulse Rate 93 H 93 H 93 H Respiratory Rate 53 H 47 H 55 H Blood Pressure 185/84 H Pulse Oximetry 100 100 100 12/05/17 07:45 12/05/17 08:00 12/05/17 08:12 Temperature 99 F Pulse Rate 93 H 93 H 92 H Respiratory Rate 56 H 56 H 53 H Blood Pressure 170/77 H Pulse Oximetry 100 100 100 12/05/17 08:15 12/05/17 08:30 12/05/17 08:32 Temperature Pulse Rate 93 H 92 H 93 H Respiratory Rate 55 H 60 H 18 Blood Pressure Pulse Oximetry 100 100 99 12/05/17 08:45 12/05/17 09:00 12/05/17 09:12 Temperature Pulse Rate 92 H 104 H 100 H Respiratory Rate 33 H 70 H 69 H Blood Pressure 155/74 H Pulse Oximetry 99 99 99 12/05/17 09:15 12/05/17 09:30 12/05/17 09:45 Temperature Pulse Rate 100 H 103 H 102 H Respiratory Rate 68 H 70 H 80 H Blood Pressure Pulse Oximetry 99 99 99 12/05/17 10:00 12/05/17 10:12 12/05/17 10:15 Temperature Pulse Rate 103 H 102 H 103 H Respiratory Rate 73 H 101 H 101 H Blood Pressure 155/87 H Pulse Oximetry 99 99 99 12/05/17 10:30 12/05/17 10:45 12/05/17 11:00 Temperature Pulse Rate 107 H 111 H 115 H Respiratory Rate 107 H 112 H 116 H Blood Pressure Pulse Oximetry 99 99 99 12/05/17 11:12 12/05/17 11:15 12/05/17 11:30 Temperature Pulse Rate 114 H 115 H 111 H Respiratory Rate 114 H 114 H 112 H Blood Pressure 169/79 H Pulse Oximetry 99 99 99 12/05/17 11:45 12/05/17 12:00 12/05/17 12:12 Temperature 98.5 F Pulse Rate 105 H 100 H 100 H Respiratory Rate 106 H 101 H 101 H Blood Pressure 164/76 H Pulse Oximetry 99 100 100 12/05/17 12:14 12/05/17 12:15 Temperature Pulse Rate 101 H 104 H Respiratory Rate 19 105 H Blood Pressure Pulse Oximetry 100 Intake & Output 12/04/17 12/05/17 12/05/17 18:59 06:59 18:59 Intake Total 1740 / 1740 400 / 400 450 / 450 Output Total 1974 Balance -235 / -235 400 / 400 450 / 450 Weight 88.1 kg Intake: IV 1600 / 1600 400 / 400 450 / 450 Versed Inj 50 mg In 50 ml @ 2 100 / 100 100 / 100 50 / 50 MG/HR 2 mls/hr IV.CONT TITRATE PRN Rx#:[id number] Intralipid 20% Inj 250 ML @ 31. 250 / 250 25 mls/hr IV.SIG Q24H COLE Rx#: [id number] Mycamine Inj 100 MG In NS Inj 200 / 200 100 / 100 100 ML @ 100 mls/hr IV.SIG Q24H COLE Rx#:[id number] Zosyn 2.25 GM Premix 50 ML @ 50 / 50 50 / 50 50 / 50 100 mls/hr IV.SIG Q8H COLE Rx#: [id number] fentaNYL 10 mcg/mL Premix Drip 250 / 250 250 / 250 2,500 mcg In 250 ml @ 50 MCG/HR 5 mls/hr IV.SIG TITRATE PRN Rx #:[id number] NS Inj 1,000 ML @ As Directed 1000 / 1000 OTHER .Q0M PRN Rx#:[id number] Tube Feeding 140 / 140 Intake (Blood Product) Amt 0 / 0 Rbc As-3 Leukoreduced Unit 0 / 0 [id number] Output: Gastric Drainage 700 / 700 Right Nare Nasogastric Tube 700 / 700 Wound Drainage 1275 / 1275 # 1 Right Abdomen 25 / 25 # 2 Right Abdomen 1250 / 1250 Other: Date of Last Bowel Movement 12/03/17 Narrative: Alert and awake Resp: CTAB Abd: soft; midline incision dressing removed and changed--- wound bed is clean with no evidence of bleeding; ZAINAB 1 with serosanguineous drainage; ZAINAB 2 with more sanguinous drainage BUE edema - Urinary Catheter Management Indwelling Temp Sensing Catheter Cath placed during this visit: no Results - Labs 12/05/17 01:03 12/05/17 05:30 Laboratory Results - last 24 hr 12/04/17 12/04/17 12/04/17 15:00 17:33 21:49 WBC RBC Hgb 7.7 L Hct 22.3 L MCV MCH MCHC RDW Plt Count MPV Prelim Diff (Auto) Neut % (Auto) Lymph % (Auto) [place] % (Auto) Eos % (Auto) Baso % (Auto) Neut # (Auto) Lymph # (Auto) [place] # (Auto) Eos # (Auto) Baso # (Auto) WBC Differential Seg Neuts % (Manual) Band Neuts % (Manual) Lymphocytes % (Manual) Monocytes % (Manual) Eosinophils % (Manual) Basophils % (Manual) Myelocytes % (Man) Promyelocytes % (Man) Abs Neuts (Manual) Nucleated RBCs/100 WBC Differential Comment Toxic Granulation Dohle Bodies Platelet Estimate Platelet Morphology Polychromasia Target Cells Acanthocytes (Spur) Keratocytes Sodium Potassium Chloride Carbon Dioxide Anion Gap BUN Creatinine Estimated GFR POC Glucose 123 H 124 H Random Glucose Calcium Phosphorus Magnesium Total Bilirubin AST ALT Alkaline Phosphatase Total Protein Albumin 12/05/17 12/05/17 12/05/17 01:03 01:29 05:30 WBC 24.1 H RBC 2.43 L Hgb 7.7 L Hct 21.3 L MCV 87.5 MCH 31.6 MCHC 36.1 H RDW 15.0 Plt Count 266 D MPV 11.2 H Prelim Diff (Auto) Slide review pending Neut % (Auto) 80.0 H Lymph % (Auto) 9.3 [place] % (Auto) 9.1 H Eos % (Auto) 1.2 Baso % (Auto) 0.4 Neut # (Auto) 19.3 H Lymph # (Auto) 2.3 [place] # (Auto) 2.2 H Eos # (Auto) 0.3 Baso # (Auto) 0.1 WBC Differential Manual diff final Seg Neuts % (Manual) 79 H Band Neuts % (Manual) 3 Lymphocytes % (Manual) 5 L Monocytes % (Manual) 7 Eosinophils % (Manual) 1 Basophils % (Manual) 1 Myelocytes % (Man) 3 H Promyelocytes % (Man) 1 H Abs Neuts (Manual) 20.7 H Nucleated RBCs/100 WBC 1 H Differential Comment . Toxic Granulation 1+ H Dohle Bodies Present H Platelet Estimate Normal Platelet Morphology Enlarged H Polychromasia 2.2 H Target Cells 1+ H Acanthocytes (Spur) Occ H Keratocytes Occ H Sodium 135 L Potassium 4.6 Chloride 97 L Carbon Dioxide 24.6 Anion Gap 13 BUN 94 H Creatinine 8.38 H Estimated GFR 8 L POC Glucose 124 H Random Glucose 133 H Calcium 7.7 L Phosphorus 6.0 H Magnesium 2.8 H Total Bilirubin 2.9 H AST 157 H ALT 209 H Alkaline Phosphatase 128 H Total Protein 5.7 L Albumin 1.6 L 12/05/17 11:24 WBC RBC Hgb Hct MCV MCH MCHC RDW Plt Count MPV Prelim Diff (Auto) Neut % (Auto) Lymph % (Auto) [place] % (Auto) Eos % (Auto) Baso % (Auto) Neut # (Auto) Lymph # (Auto) [place] # (Auto) Eos # (Auto) Baso # (Auto) WBC Differential Seg Neuts % (Manual) Band Neuts % (Manual) Lymphocytes % (Manual) Monocytes % (Manual) Eosinophils % (Manual) Basophils % (Manual) Myelocytes % (Man) Promyelocytes % (Man) Abs Neuts (Manual) Nucleated RBCs/100 WBC Differential Comment Toxic Granulation Dohle Bodies Platelet Estimate Platelet Morphology Polychromasia Target Cells Acanthocytes (Spur) Keratocytes Sodium Potassium Chloride Carbon Dioxide Anion Gap BUN Creatinine Estimated GFR POC Glucose 128 H Random Glucose Calcium Phosphorus Magnesium Total Bilirubin AST ALT Alkaline Phosphatase Total Protein Albumin - Imaging Imaging: ITS Impressions Head MRI 12/03/17 00:00 CONCLUSION: 1. Minimal nonspecific periventricular white matter changes. 2. No restricted diffusion to suggest an acute ischemic event. 3. No evidence for significant ischemic changes. Chest X-Ray 12/04/17 00:01 CONCLUSION: 1. No significant change left greater than the right consolidation and effusions at the bases. 2. Lines and tubes as above. Endotracheal tube tip is approximately 2.7 cm above the [place]. Abdomen/Pelvis CT 12/04/17 00:02 CONCLUSION: 1. Interim midline laparotomy and gastrectomy with apparent Dinh-en-Y. 2. Bowel gas pattern consistent with obstruction of the duodenum and proximal jejunum. I don't see a mass. There does seem to be some jejunal wall thickening around the jejunostomy tube. 3. Wall thickening and mucosal enhancement of the colon consistent with moderate severity colitis. C. difficile colitis would be in the differential. 4. Solid organs are within normal limits. 5. Small ascites. Also diffuse body wall edema/anasarca. No perceptible hemorrhage. Chest CT 12/04/17 00:06 CONCLUSION: 1. Left greater than right pleural effusions and basilar atelectasis. 2. No hemorrhage or hematoma demonstrated. 3. Distended and fluid-filled esophagus. No wall thickening. Patient is status post gastrectomy. Nasogastric tube is at the GE junction. 4. Body wall edema/anasarca. Assessment and Plan - Assessment (1) Gastric perforation Code(s): K25.5 - Chronic or unspecified gastric ulcer with perforation Status : Acute Plan: 47yo male s/p Exlap and gastrectomy for gastric perforation, s/p esophagojejunostomy at [facility] -S/p head MRI---no evidence of ischemic event -Intubated---vent per CCM -s/p HD today -Dressing changed; change wet to dry daily to midline incision BID and PRN -Continue abdominal binder -Continue NG to LIWS -TF via J tube -Continue routine ZAINAB care -Family at bedside --- updated - Plan I personally evaluated the patient in room 1313. He is intubated and sedated. His tube feeds have been increased to 20 cc an hour. He has significantly decreased oral secretions. His drains are draining primarily light pink watery drainage, no further evidence of dark bloody drainage. Assessment status post subtotal gastrectomy for gastric necrosis. Patient went to [facility] for esophagojejunostomy and feeding jejunostomy tube placement. 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 He likely had experienced aspiration and is being treated for aspiration pneumonia. We will continue to provide supportive care. I anticipate it will take some time for his liver function, renal function, pulmonary function to recover. The exam, history, and the medical decision-making described in the above note were completed with the assistance of the mid-level provider. I reviewed and agree with the findings presented. I attest that I had a [id number] encounter with the patient on the same day, and personally performed and documented my assessment and findings in the medical record.
[2017-12-05] MEDS: fentaNYL 10 mcg/mL Premix Drip 2,500 MCG/250 ML BAG IV.SIG PRN (14:40)
--- NOTE | 2017-12-05 18:08 | P.PNNP ---
Subjective Interval history: patient was seen during dialysis. He opens eyes, it is unclear if he is tracking with eyes, and follows any verbal cues. He was seen during dialysis, on 3K, BFR is 350 ml/min, UF goal is 5 liters. Physical Exam Vital signs: Vital Signs 12/04/17 18:12 12/04/17 18:15 12/04/17 18:30 Temperature Pulse Rate 91 H 90 91 H Respiratory Rate 74 H 72 H 72 H Blood Pressure 172/90 H Pulse Oximetry 99 99 99 12/04/17 18:45 12/04/17 19:00 12/04/17 19:12 Temperature Pulse Rate 93 H 91 H 80 Respiratory Rate 75 H 82 H 73 H Blood Pressure 145/72 H Pulse Oximetry 99 99 99 12/04/17 19:15 12/04/17 19:40 12/04/17 20:00 Temperature Pulse Rate 80 78 Respiratory Rate 72 H 18 77 H Blood Pressure Pulse Oximetry 99 99 100 12/04/17 20:12 12/04/17 21:00 12/04/17 21:06 Temperature Pulse Rate 78 79 80 Respiratory Rate 77 H 78 H 18 Blood Pressure 147/74 H Pulse Oximetry 100 100 12/04/17 21:12 12/04/17 22:00 12/04/17 22:08 Temperature Pulse Rate 78 81 Respiratory Rate 78 H 81 H 18 Blood Pressure 168/80 H Pulse Oximetry 100 100 99 12/04/17 22:12 12/04/17 23:00 12/04/17 23:12 Temperature Pulse Rate 82 82 83 Respiratory Rate 81 H 70 H 81 H Blood Pressure 174/88 H 193/86 H Pulse Oximetry 100 100 100 12/04/17 23:42 12/05/17 00:00 12/05/17 00:12 Temperature 98.5 F 98.5 F Pulse Rate 86 85 85 Respiratory Rate 18 83 H 82 H Blood Pressure 156/63 H 185/85 H Pulse Oximetry 99 100 12/05/17 00:57 12/05/17 01:00 12/05/17 01:12 Temperature Pulse Rate 85 86 Respiratory Rate 18 86 H 86 H Blood Pressure 186/86 H Pulse Oximetry 100 99 99 12/05/17 02:00 12/05/17 03:39 12/05/17 04:33 Temperature Pulse Rate 88 85 Respiratory Rate 71 H 16 18 Blood Pressure Pulse Oximetry 99 100 10/31/18 07:00 12/05/17 07:12 12/05/17 07:15 Temperature Pulse Rate 92 H 93 H 93 H Respiratory Rate 48 H 53 H 47 H Blood Pressure 185/84 H Pulse Oximetry 100 100 100 12/05/17 07:30 12/05/17 07:45 12/05/17 08:00 Temperature 99 F Pulse Rate 93 H 93 H 93 H Respiratory Rate 55 H 56 H 56 H Blood Pressure Pulse Oximetry 100 100 100 12/05/17 08:12 12/05/17 08:15 12/05/17 08:30 Temperature Pulse Rate 92 H 93 H 92 H Respiratory Rate 53 H 55 H 60 H Blood Pressure 170/77 H Pulse Oximetry 100 100 100 12/05/17 08:32 12/05/17 08:45 12/05/17 09:00 Temperature Pulse Rate 93 H 92 H 104 H Respiratory Rate 18 33 H 70 H Blood Pressure Pulse Oximetry 99 99 99 12/05/17 09:12 12/05/17 09:15 12/05/17 09:30 Temperature Pulse Rate 100 H 100 H 103 H Respiratory Rate 69 H 68 H 70 H Blood Pressure 155/74 H Pulse Oximetry 99 99 99 12/05/17 09:45 12/05/17 10:00 12/05/17 10:12 Temperature Pulse Rate 102 H 103 H 102 H Respiratory Rate 80 H 73 H 101 H Blood Pressure 155/87 H Pulse Oximetry 99 99 99 12/05/17 10:15 12/05/17 10:30 12/05/17 10:45 Temperature Pulse Rate 103 H 107 H 111 H Respiratory Rate 101 H 107 H 112 H Blood Pressure Pulse Oximetry 99 99 99 12/05/17 11:00 12/05/17 11:12 12/05/17 11:15 Temperature Pulse Rate 115 H 114 H 115 H Respiratory Rate 116 H 114 H 114 H Blood Pressure 169/79 H Pulse Oximetry 99 99 99 12/05/17 11:30 12/05/17 11:45 12/05/17 12:00 Temperature 98.5 F Pulse Rate 111 H 105 H 100 H Respiratory Rate 112 H 106 H 101 H Blood Pressure Pulse Oximetry 99 99 100 12/05/17 12:12 12/05/17 12:14 12/05/17 12:15 Temperature Pulse Rate 100 H 101 H 104 H Respiratory Rate 101 H 19 105 H Blood Pressure 164/76 H Pulse Oximetry 100 100 12/05/17 12:30 12/05/17 12:45 12/05/17 13:00 Temperature Pulse Rate 102 H 98 H 99 H Respiratory Rate 78 H 78 H 58 H Blood Pressure Pulse Oximetry 99 99 99 12/05/17 13:12 12/05/17 13:15 12/05/17 13:30 Temperature Pulse Rate 98 H 97 H 98 H Respiratory Rate 52 H 55 H 52 H Blood Pressure 168/81 H Pulse Oximetry 99 99 99 12/05/17 13:45 12/05/17 14:00 12/05/17 14:12 Temperature Pulse Rate 96 H 97 H 96 H Respiratory Rate 62 H 57 H 55 H Blood Pressure 182/84 H Pulse Oximetry 99 99 99 12/05/17 14:15 12/05/17 14:30 12/05/17 14:45 Temperature Pulse Rate 96 H 98 H 99 H Respiratory Rate 54 H 51 H 57 H Blood Pressure Pulse Oximetry 99 99 99 12/05/17 15:00 12/05/17 15:12 12/05/17 15:15 Temperature Pulse Rate 100 H 99 H 100 H Respiratory Rate 96 H 99 H 99 H Blood Pressure 159/73 H Pulse Oximetry 99 99 99 12/05/17 15:30 12/05/17 15:33 12/05/17 15:45 Temperature Pulse Rate 100 H 100 H 99 H Respiratory Rate 99 H 18 99 H Blood Pressure Pulse Oximetry 99 99 99 12/05/17 16:00 12/05/17 16:12 Temperature 99 F Pulse Rate 98 H 103 H Respiratory Rate 70 H 85 H Blood Pressure 156/72 H Pulse Oximetry 99 99 Intake & Output 12/04/17 12/05/17 12/05/17 18:59 06:59 18:59 Intake Total 1740 / 1740 400 / 400 750 / 750 Output Total 1974 4500 / 4500 Balance -235 / -235 400 / 400 -3750 / -3750 Weight 88.1 kg Intake: IV 1600 / 1600 400 / 400 750 / 750 Versed Inj 50 mg In 50 ml @ 2 100 / 100 100 / 100 50 / 50 MG/HR 2 mls/hr IV.CONT TITRATE PRN Rx#:[id number] Intralipid 20% Inj 250 ML @ 31. 250 / 250 25 mls/hr IV.SIG Q24H [facility] Rx#: [id number] Mycamine Inj 100 MG In NS Inj 200 / 200 100 / 100 100 ML @ 100 mls/hr IV.SIG Q24H [facility] Rx#:[id number] Zosyn 2.25 GM Premix 50 ML @ 50 / 50 50 / 50 100 / 100 100 mls/hr IV.SIG Q8H [facility] Rx#: [id number] fentaNYL 10 mcg/mL Premix Drip 250 / 250 250 / 250 250 / 250 2,500 mcg In 250 ml @ 50 MCG/HR 5 mls/hr IV.SIG TITRATE PRN Rx #:[id number] NS Inj 1,000 ML @ As Directed 1000 / 1000 OTHER .Q0M PRN Rx#:[id number] Tube Feeding 140 / 140 Intake (Blood Product) Amt 0 / 0 Rbc As-3 Leukoreduced Unit 0 / 0 [id number] Output: Hemodialysis Amount 4500 / 4500 Gastric Drainage 700 / 700 Right Nare Nasogastric Tube 700 / 700 Wound Drainage 1275 / 1275 # 1 Right Abdomen 25 / 25 # 2 Right Abdomen 1250 / 1250 Other: Date of Last Bowel Movement 12/03/17 Narrative: eyes are open, on the ventilator. Lungs: vented breath sounds. Abd: soft; midline incision with dressing. He has J tube connected to tube feeding. He has 2 J-P drains. He has edema of the upper extremities. - Urinary Catheter Management Indwelling Temp Sensing Catheter Cath placed during this visit: no Assessment and Plan - Assessment (1) JACLYN (acute kidney injury) Code(s): N17.9 - Acute kidney failure, unspecified Status: Acute Plan: Anuric renal failure. He has become dialysis dependent. Dialysis every 2nd day. Monitor for recovery. Continue supportive care. Avoid nephrotoxic agents. (2) Acute respiratory failure Code(s): J96.00 - Acute respiratory failure, unspecified whether with hypoxia or hypercapnia Status: Acute Qualifiers: Respiratory failure complication: hypoxia Qualified Code(s): J96.01 - Acute respiratory failure with hypoxia Plan: on the ventilator. Possible aspiration. (3) Gastric perforation Code(s): K25.5 - Chronic or unspecified gastric ulcer with perforation Status : Acute Plan: s/p surgery. Subtotal gastrectomy here. In [facility] he had: Dinh-en-y esophagojejunostomy, feeding jejunostomy placement, diagnostic EGD, primary fascial closure. Date of procedure: 11/28/17 (4) Candidemia Code(s): B37.7 - Candidal sepsis Status: Acute Plan: On Micafungin. Patient is also on Zosyn. Dose medications appropriate to renal function. (5) DVT (deep venous thrombosis) Code(s): I82.409 - Acute embolism and thrombosis of unspecified deep veins of unspecified lower extremity Status: Acute Plan: On heparin drip. DVT of bilateral upper extremities. (6) Anemia Code(s): D64.9 - Anemia, unspecified Status: Acute Plan: Hemoglobin is 7.7. Could be multifactorial. Rule out bleeding. Also could be due to renal failure.
[2017-12-05] MEDS: Heparin - SQ 10,000 UNITS/ML Vial SQ SCH (20:17)
[2017-12-05] MEDS: hydrALAZINE HCl Inj 20 MG/ML Vial IV.PUSH PRN (21:11)
[2017-12-06] MEDS: Oral Hygiene Kit OROPHARYNG SCH ×8 (00:23→17:17)
[2017-12-06] MEDS: Insulin NovoLOG Aspart Correctional Sugar Inj SQ SCH ×7 (00:57→22:13)
[2017-12-06] MEDS: Midazolam 50 MG/50 ML Inj 50 MG/50 ML BAG IV.CONT PRN ×4 (02:34→20:22)
[2017-12-06] MEDS: fentaNYL 10 mcg/mL Premix Drip 2,500 MCG/250 ML BAG IV.SIG PRN ×2 (04:45→20:27)
[2017-12-06] MEDS: Labetalol HCl Inj 100 MG/20 ML Vial IV.PUSH PRN (04:46)
[2017-12-06] MEDS: Piperacil/Tazo 2.25 GM Premix 50 ML IV.SIG SCH ×3 (05:21→22:21)
[2017-12-06 05:30] LABS: Baso % (Auto) 0.1 % (0.0-2.0); Eos # (Auto) 0.3 th/mm3 (0.0-0.4); Eos % (Auto) 1.1 % (0.0-4.0); Hematocrit 21.7 % (39.0-51.0); Hemoglobin 7.5 gm/dL (13.0-17.0); Lymph # (Auto) 1.6 th/mm3 (1.0-4.8); Mean Corpuscular HGB Conc 34.5 % (32.0-36.0); Mean Corpuscular Hemoglobin 30.8 pg (27.0-34.0); Mean Corpuscular Volume 89.3 fL (80.0-100.0); Mean Platelet Volume 10.4 fL (7.0-11.0); Mono # (Auto) 2.9 th/mm3 (0.0-0.9); Mono % (Auto) 11.1 % (0.0-8.0); Neut # (Auto) 21.2 th/mm3 (1.8-7.7); Neut % (Auto) 81.7 % (16.0-70.0); Platelet Count 382 th/mm3 (150-450); Red Blood Count 2.44 mil/mm3 (4.50-5.90); Red Cell Distribution Width 15.7 % (11.6-17.2); White Blood Count 25.9 th/mm3 (4.0-11.0)
[2017-12-06 05:43] LABS: Alanine Aminotransferase 213 U/L (12-78); Albumin 1.6 g/dL (3.4-5.0); Alkaline Phosphatase 285 U/L (45-117); Anion Gap 13 meq/L (5-15); Aspartate Aminotransferase 163 U/L (15-37); Blood Urea Nitrogen 80 mg/dL (7-18); Calcium 8.1 mg/dL (8.5-10.1); Carbon Dioxide 25.6 meq/L (21.0-32.0); Chloride 100 meq/L (98-107); Glomerular Filtration Rate 10 mL/min (>89); Glucose,Random 124 mg/dL (74-106); Magnesium 2.6 mg/dL (1.5-2.5); Phosphorus 5.8 mg/dL (2.5-4.9); Potassium 4.6 meq/L (3.5-5.1); Sodium 139 meq/L (136-145); Total Protein 6.1 g/dL (6.4-8.2)
[2017-12-06 07:10] LABS: Lymphocytes 7 % (9-44); Metamyelocytes 3 % (0-1); Monocytes 4 % (0-8); Myelocytes 4 % (0-0); Platelet Estimate Normal (Normal)
[2017-12-06] MEDS: Heparin - SQ 10,000 UNITS/ML Vial SQ SCH (08:13)
[2017-12-06] MEDS: Chlorhexidine 0.12% Oral Kit 15 ML UDC OROPHARYNG SCH ×4 (08:13→20:23)
[2017-12-06] MEDS: Pantoprazole Inj 40 MG Vial IV.PUSH SCH (08:14)
[2017-12-06] MEDS: Calcium Acetate 667 MG Capsule PO SCH ×3 (08:14→17:48)
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
--- NOTE | 2017-12-06 10:25 | P.PNCC ---
Subjective Subjective Remarks/Hospital Course: Patient was recently admitted to [facility] 11/22 and transferred to [facility] 11/26/17 after the following hospital course: 47-year-old -[place] male with reportedly no past medical or past surgical history who was admitted to hospitalist service 11/22/17 after presenting with abdominal pain, nausea, vomiting. He had CT abd/pelvis with massive gastric distention. NG tube had been placed. I was called to patient's bedside for CODE BLUE PEA arrest. CPR was ongoing and patient had massive abdominal distension and gastric regurgitant in the airway. He was emergently intubated and large amount of gastric secretions suctioned from oropharynx. After 21 minutes of CPR, ROSC was obtained and he was profoundly hypotensive. Continued aggressive fluid resuscitation and initiated dopamine. He was transferred to [facility] where CVL and R radial art line were placed and he was given 7 L of crystalloid and albumin. CXR demonstrated pneumoperitoneum and Dr. Martin Gudino was called emergently and he immediately contacted OR for emergent ex lap. He had intraabdominal hypertension with IAP of 40 mmHg, though fortunately was able to be ventilated adequately after rocuronium 50 mg IV and was transferred to OR. Dr. Matrin Gudino took to the operating room early in the morning on 11/23 and discovered tension pneumoperitoneum, massive gastric distension, ischemia of the proximal 2/3 of the stomach and large gastric perforation with massive intraperitoneal contamination with food particles. Dr. Isaacs placed 2 NGT and decompressed 2 L of succus. Patient had initial improvement in vital signs in the immediate postoperative period, however he subsequently became hypotensive requiring upward titration of levophed and addition of vasopressin and stress dose hydrocortisone. He remains on levophed 10 mcg/min, neosynephrine 80 mcg/ min, vasopressin 0.04 units/min with overall vasopressor requirement weaning overnight. He is oliguric and creatinine is continuing to climb. He was given 2 L of crystalloid and albumin overnight. He does have significant fluid losses with combination of abdominal dressing and NGT output, so I will give an additional L of crystalloid now to monitor hourly response as he certainly does not appear volume overloaded. Nonetheless Flotrac numbers are suggesting adequate volume status and we may be seeing the consequence of ischemic ATN. May ultimately require HD, however not at this time. Abdomen remains open and plan is to re-explore 11/25. 11/25: Patient has acceptable hemodynamics by Flotrac but remains septic with requirements for phenylephrine 200 mics per minute, Levophed 8 mics per minute and vasopressin 0.04 units/min for blood pressure support. This has improved overnight and the Bhavesh-Synephrine support has been weaned off completely. Acid base balance is acceptable. ATN has developed which will undoubtedly require hemodialysis. Potassium level is normal. He is at increased risk for an anesthetic now but there is an urgent need to check for residual gastric necrosis. 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 Since the source control surgery, the maintenance of normal acid-base balance has been less difficult. Patient remains anuric with a rising creatinine above 6.0. He is clearly ahead on volume and will benefit from dialysis. A 2 lumen hemodialysis catheter was placed on 11/25 and has been packed with dilute heparin solution. The right internal jugular central line is been in place for 4 days and accessed multiple times. The femoral art line has been in for 4 days. Shock liver was apparent after the cardiac arrest reflecting a transaminitis, elevated bilirubin, and prolonged INR. The INR has remained normal following the transfusion of 4 units of fresh frozen plasma prior to surgery yesterday. A 10% dextrose infusion continues because of ongoing problems with hypoglycemia. Thrombocytopenia at 37,000 persists. He has remained on antibiotic coverage with Pipracil/tazobactam and fungal coverage with fluconazole, all adjusted for renal failure. Present vasopressor requirements include levophed at 7 mics per minute and vasopressin at 0.04 units/min. The chest x-ray is consistent with minor aspiration at the time of his preoperative cardiac arrest on the floor and cultures have subsequently grown Klebsiella, pansensitive. The operative note will clarify the extent of the surgery but in essence the distal esophagus is stapled off and marked with 2 Prolene sutures. The antrum of the stomach is oversewn. Most of the stomach has been removed. The abdomen is open with a VAC dressing applied. Subjective: 11/29: Bowel was in discontinuity following subtotal gastrectomy and patient was transferred to [facility]. On reexploration 11/28 he underwent Dinh-en-y esophagojejunostomy, feeding jejunostomy placement, diagnostic EGD, primary fascial closure. Wound vac was applied to abdomen (though currently wet to dry dressing in place upon arrival). He was reportedly found to have candidemia and was started on micafungin and has undergone ophtho eval. Lines including CVL, Vascath and art line have all been changed at [facility] (though not clear when). He remains on mechanical ventilation and has been weaned off pressors. He was found to have BUE DVTs and is on heparin drip. He is on TPN and has been started on trickle tube feeds with Nepro via jejunostomy. NGT is to [facility]. He underwent HD postoperatively on 11/28. He has now been transferred back to [facility] for ongoing management. I have updated his father and stepmother. 11/30: Patient re-admitted s/p transfer from [facility] overnight, otherwise no acute issues. Scheduled to undergo HD today. 12/01: T-max 101.7, leukocytosis to 27,000 with bandemia. Now 3 days following Dinh-en-Y reconstruction of GI tract following sub-total gastrectomy for gastric necrosis. All new lines placed after diagnosis of candidemia. TPN infusing, jejunostomy at trickle flow and can be increased slowly per general surgery. 12/02: Marked leukocytosis with bandemia persists. Afebrile over last 24 hours. Leave NG tube across the esophageal anastomosis and surgical service will direct timing of contrast study about 7 days following surgery. Continue with spontaneous breathing trials. 12/03: extubated yesterday. since then, has not followed commands, and does not talk. appears to have clinically an aphasia, although his uremia or severe hypoactive delirium could present this way. purposeful movements. will obtain MRI to rule out acute ischemia, as this appears to be a new mental status change (11/29 /[facility] notes state interactive on ventilator). 12/04: reintubated overnight: more output from ZAINAB drains. hgb dropped to 7 this AM: receiving 1 unit prbc. MRI negative for acute change. EEG ordered today to rule out subclinical status epilepticus. also concern overnight for aspiration event. 12/05: T-max 99. WBC 24,000. Reintubated yesterday for respiratory failure probably related to aspiration. Trickle feeding continues through jejunostomy. Nasogastric tube is through the anastomosis and is to low intermittent. 12/06: Afebrile. WBC 26,000. Bandemia has largely resolved. There are bilateral pleural effusions which may need to be tapped to rule out infection or leak. Both lower lobes are consolidated on CAT scan, probably representing compressive atelectasis from the effusions. Objective Vital Signs / I&O: Vital Signs 12/05/17 10:30 12/05/17 10:45 12/05/17 11:00 Temperature Pulse Rate 107 H 111 H 115 H Respiratory Rate 107 H 112 H 116 H Blood Pressure Pulse Oximetry 99 99 99 12/05/17 11:12 12/05/17 11:15 12/05/17 11:30 Temperature Pulse Rate 114 H 115 H 111 H Respiratory Rate 114 H 114 H 112 H Blood Pressure 169/79 H Pulse Oximetry 99 99 99 12/05/17 11:45 12/05/17 12:00 12/05/17 12:12 Temperature 98.5 F Pulse Rate 105 H 100 H 100 H Respiratory Rate 106 H 101 H 101 H Blood Pressure 164/76 H Pulse Oximetry 99 100 100 12/05/17 12:14 12/05/17 12:15 12/05/17 12:30 Temperature Pulse Rate 101 H 104 H 102 H Respiratory Rate 19 105 H 78 H Blood Pressure Pulse Oximetry 100 99 12/05/17 12:45 12/05/17 13:00 12/05/17 13:12 Temperature Pulse Rate 98 H 99 H 98 H Respiratory Rate 78 H 58 H 52 H Blood Pressure 168/81 H Pulse Oximetry 99 99 99 12/05/17 13:15 12/05/17 13:30 12/05/17 13:45 Temperature Pulse Rate 97 H 98 H 96 H Respiratory Rate 55 H 52 H 62 H Blood Pressure Pulse Oximetry 99 99 99 12/05/17 14:00 12/05/17 14:12 12/05/17 14:15 Temperature Pulse Rate 97 H 96 H 96 H Respiratory Rate 57 H 55 H 54 H Blood Pressure 182/84 H Pulse Oximetry 99 99 99 12/05/17 14:30 12/05/17 14:45 12/05/17 15:00 Temperature Pulse Rate 98 H 99 H 100 H Respiratory Rate 51 H 57 H 96 H Blood Pressure Pulse Oximetry 99 99 99 12/05/17 15:12 12/05/17 15:15 12/05/17 15:30 Temperature Pulse Rate 99 H 100 H 100 H Respiratory Rate 99 H 99 H 99 H Blood Pressure 159/73 H Pulse Oximetry 99 99 99 12/05/17 15:33 12/05/17 15:45 12/05/17 16:00 Temperature 99 F Pulse Rate 100 H 99 H 98 H Respiratory Rate 18 99 H 70 H Blood Pressure Pulse Oximetry 99 99 99 12/05/17 16:12 12/05/17 16:15 12/05/17 16:30 Temperature Pulse Rate 103 H 104 H 107 H Respiratory Rate 85 H 83 H 72 H Blood Pressure 156/72 H Pulse Oximetry 99 99 99 12/05/17 16:45 12/05/17 17:00 12/05/17 17:12 Temperature Pulse Rate 110 H 111 H 114 H Respiratory Rate 79 H 88 H 110 H Blood Pressure 147/67 H Pulse Oximetry 99 98 98 12/05/17 17:15 12/05/17 17:30 12/05/17 17:45 Temperature Pulse Rate 114 H 115 H 107 H Respiratory Rate 111 H 79 H 107 H Blood Pressure Pulse Oximetry 98 98 99 12/05/17 18:00 12/05/17 18:15 12/05/17 18:30 Temperature Pulse Rate 103 H 97 H 95 H Respiratory Rate 53 H 52 H 56 H Blood Pressure Pulse Oximetry 99 99 99 12/05/17 18:45 12/05/17 19:00 12/05/17 19:15 Temperature Pulse Rate 111 H 93 H 92 H Respiratory Rate 47 H 44 H 22 Blood Pressure Pulse Oximetry 99 99 99 12/05/17 19:30 12/05/17 19:45 12/05/17 20:00 Temperature 99.6 F Pulse Rate 91 H 89 90 Respiratory Rate 24 21 22 Blood Pressure Pulse Oximetry 99 99 99 12/05/17 20:15 12/05/17 20:30 12/05/17 20:45 Temperature Pulse Rate 94 H 98 H 102 H Respiratory Rate 24 19 21 Blood Pressure Pulse Oximetry 99 99 99 12/05/17 21:00 12/05/17 21:15 12/05/17 21:30 Temperature Pulse Rate 106 H 99 H 112 H Respiratory Rate 23 21 22 Blood Pressure Pulse Oximetry 99 99 98 12/05/17 21:45 12/05/17 22:00 12/05/17 23:29 Temperature Pulse Rate 120 H 118 H 114 H Respiratory Rate 25 H 18 Blood Pressure Pulse Oximetry 98 99 12/06/17 00:00 12/06/17 02:00 12/06/17 03:30 Temperature 98.6 F Pulse Rate 117 H 106 H 107 H Respiratory Rate 23 18 Blood Pressure Pulse Oximetry 99 99 12/06/17 04:00 12/06/17 06:00 12/06/17 08:00 Temperature 99.2 F Pulse Rate 106 H 90 Respiratory Rate 19 18 Blood Pressure Pulse Oximetry 99 100 12/06/17 08:50 Temperature Pulse Rate 98 H Respiratory Rate 19 Blood Pressure Pulse Oximetry Intake & Output 12/05/17 12/06/17 12/06/17 18:59 06:59 18:59 Intake Total 895 / 895 2588 / 1084.7969 / 1084.7969 Output Total 4940 / 4940 820 / 820 Balance -4045 / -4045 1194.2588 / 1194.2588 1084.7969 / 1084.7969 Weight 83.3 kg Intake: IV 750 / 750 1732.2588 / 1732.2588 1084.7969 / 1084.7969 Versed Inj 50 mg In 50 ml @ 2 50 / 50 100 / 100 50 / 50 MG/HR 2 mls/hr IV.CONT TITRATE PRN Rx#:[id number] Intralipid 20% Inj 250 ML @ 31. 250 / 250 250 / 250 25 mls/hr IV.SIG Q24H COLE Rx#: [id number] Mycamine Inj 100 MG In NS Inj 100 / 100 100 ML @ 100 mls/hr IV.SIG Q24H COLE Rx#:[id number] Zosyn 2.25 GM Premix 50 ML @ 100 / 100 100 / 100 100 mls/hr IV.SIG Q8H COLE Rx#: [id number] Sodium Chloride 23.4% Inj 5.5 1032.2588 / 1032.2588 MEQ Sodium Acetate Inj 29.5 MEQ KCl Inj 20 MEQ Calcium Chloride Inj 4.5 MEQ MVI-12 Inj 10 ML Folvite Inj 1 MG In Clinimix 5%/D20W Inj 1,000 ML @ 40.275 mls/hr IV.SIG Q24H COLE Rx#:[id number] fentaNYL 10 mcg/mL Premix Drip 250 / 250 250 / 250 2,500 mcg In 250 ml @ 50 MCG/HR 5 mls/hr IV.SIG TITRATE PRN Rx #:[id number] Tube Feeding 145 / 145 222 / 222 Water Bolus Amount 60 / 60 Output: Urine 0 / 0 Hemodialysis Amount 4500 / 4500 Gastric Drainage 50 / 50 100 / 100 Right Nare Nasogastric Tube 50 / 50 100 / 100 Wound Drainage 390 / 390 720 / 720 # 1 Right Abdomen 40 / 40 20 / 20 # 2 Right Abdomen 350 / 350 700 / 700 Other: Date of Last Bowel Movement 12/05/17 12/05/17 Result Diagrams: 12/06/17 04:42 12/06/17 04:42 Objective Remarks: GEN: Chronically ill-appearing, heavily sedated for vent synchrony HEENT: NCAT, pupils 3 mm and reactive bilaterally NECK: RIJ vasc-cath and LIJ TLC present, clean/ dry/ intact CARDIO: Borderline bradycardic to high 60s, no murmur, neck veins remain full. PULM: prvc, fio2 45%. equal chest rise. peep 5. Scattered rhonchi. ABD: Midline surgical bandages clean/ dry/ intact. ZAINAB #1 is anterior to esophagojejunostomy anastomosis, ZAINAB #2 posterior, both with serosanguineous drainage. Abdomen soft. Fascia is closed, skin is open, depth of wound is minimal. Open tissue is clean. EXT/MSK: Anasarca SKIN: No rashes or lesions NEURO: Moves 4 limbs spontaneously. Purposeful with arms, tracks with eyes. Assessment and Plan - Problem List (1) Gastric perforation Code(s): K25.5 - Chronic or unspecified gastric ulcer with perforation Status : Acute (2) Status post total gastrectomy and Dinh-en-Y esophagojejunal anastomosis Code(s): Z90.3 - Acquired absence of stomach [part of]; Z98.0 - Intestinal bypass and anastomosis status Status: Acute (3) Ischemic hepatitis Code(s): K75.9 - Inflammatory liver disease, unspecified Status: Acute (4) Gastric necrosis Code(s): K31.89 - Other diseases of stomach and duodenum Status: Acute (5) Thrombocytopenia Code(s): D69.6 - Thrombocytopenia, unspecified Status: Acute (6) Acute bilateral deep vein thrombosis (DVT) of upper extremities Code(s): I82.623 - Acute embolism and thrombosis of deep veins of upper extremity, bilateral Status: Acute (7) Anemia Code(s): D64.9 - Anemia, unspecified Status: Acute (8) Leukocytosis Code(s): D72.829 - Elevated white blood cell count, unspecified Status: Acute (9) Candidemia Code(s): B37.7 - Candidal sepsis Status: Acute (10) On total parenteral nutrition (TPN) Code(s): Z78.9 - Other specified health status Status: Acute (11) Hx of cardiac arrest Code(s): Z86.74 - Personal history of sudden cardiac arrest Status: Resolved (12) Acute hemodialysis patient Code(s): Z99.2 - Dependence on renal dialysis Status: Acute (13) JACLYN (acute kidney injury) Code(s): N17.9 - Acute kidney failure, unspecified Status: Acute (14) Aspiration pneumonia Code(s): J69.0 - Pneumonitis due to inhalation of food and vomit Status: Acute (15) Acute respiratory failure Code(s): J96.00 - Acute respiratory failure, unspecified whether with hypoxia or hypercapnia Status: Acute - Assessment and Plan Plan: NEURO: Acute metabolic encephalopathy- severe MRI 12/03: negative for acute change EEG today. could be delirium vs. uremic encephalopathy RESP: Acute hypoxic and hypercarbic respiratory failure- recurrent, severe Healthcare associated aspiration pneumonia extub 12/02, reintubated 12/03 overnight wean fio2 to keep spo2 > 90% vent bundle aggressive pulmonary toilet PT/OT Required reintubation 12/04 Persistent bilateral pleural effusions left greater than right, consolidation both lower lobes. CV: Cardiac arrest 11/23/17 (PEA arrest due to shock secondary to acute gastric perf and tension pneumoperitoneum) Septic shock, resolved Now off pressors Hemodynamic monitoring with L radial art line Concern for anoxic injury at the time of arrest. GI: s/p gastric perforation with tension pneumoperitoneum status post ex lap with primary repair of anterior gastric perforation with stapler 11/23 On second look 11/25 he was found to have gastric necrosis requiring subtotal gastrectomy and placement of Abthera VAC dressing. The bowel was in discontinuity and he was transferred to [facility]. On 11/28 he underwent reexploration with Dinh-en-y esophagojejunostomy, feeding jejunostomy placement, diagnostic EGD, primary fascial closure Gastric necrosis Ischemic hepatopathy NGT to LIWS, do not manipulate NGT per general surgery orders from [facility]. Has feeding jejunostomy and tube feeds with Nepro 10 mL per hour had been started at [facility], continue for now with further management per general surgery. ZAINAB drains in place #1 anterior to anastomosis, #2 posterior to the anastomosis. Management per general surgery. Continue TPN renal formula 46 mL/hr. Intermittent lipids daily. General surgery recs appreciated per gen surg: restart tube feeds. CT abd/pelvis 12/03 without acute abdominal pathology. Had right upper quadrant ultrasound on 11/27/17 that demonstrated contracted gallbladder with sludge. No evidence of cholecystitis. Echogenicity in right liver related to focal fatty change or altered perfusion. Color Doppler interrogation through the region demonstrates patent vascularity. FEN/RENAL: JACLYN secondary to ischemic ATN HD as started 11/26 at [place]. Had HD 3 hours on 11/28 at [facility] with 1700 mL UF; HD today Has Delgado in place currently. Has R IJ Vascath. Monitor I/O and electrolytes. Nephrology consult. prealbumin low at 14 on 12/01. trend weekly. ID: Gastric perforation with large amount particulate peritoneal contamination 11/23 Acute Aspiration pneumonia Candidemia - reportedly blood cultures at OSH were positive. Will request records from microbiology. Patient had been on micafungin 100 mg IV daily (started at [facility]) with last administration at 10 AM on 11/29. Was previously on diflucan IV. On Zosyn 2.25 IV every 8 hours with last administration 11/29 at noon. Will continue zosyn/micafungin. Patient was evaluated by ophthalmology prior to transfer. I do not see an ophthalmology note in the transfer documentation. I have requested this document. Requested culture data from [facility]. Send blood culture x2 sets now. Sputum culture 11/24 with pansensitive Klebsiella pneumonia ID consult HEME: Thrombocytopenia Bilateral upper extremity DVTs Anemia secondary to acute blood loss-requiring transfusion U/s 11/26 BUE - thrombus R axillary, brachial and basilic veins and thrombus in left axillary and left brachial veins. U/s bilateral lower extremities 11/26 at [facility] negative from common femoral to popliteal vein levels. Arrived on heparin drip Hematology consult was obtained at [facility] and recommended heparin drip and transfuse prn for platelets <50k. Will use target PTT 40-65 now, no boluses. Monitor CBC 1 unit prbc 12/04. recheck in AM. ENDO: Monitor Glucose q4 hours and use low dose insulin sliding scale as indicated. PROPH: Discontinue heparin drip and start subcu for DVT prophylaxis. Protonix 40 mg IV daily for stress ulcer prophylaxis. ACCESS: R IJ vascath , L IJ CVL, L radial art line. All existing lines were replaced at [facility]. FULL CODE OVERALL IMPRESSION: Critically ill with recurrent respiratory failure, likely recurrent aspiration, continue ventilatory support, nutrition, Abx. Overall impression: This gentleman is critically ill and nutritionally depleted. He has deteriorated clinical status requiring placement back on mechanical ventilation. Persistent leukocytosis is worrisome but he remains afebrile. I anticipate a prolonged postoperative course and continuing pulmonary complications. We will probably can end up needing to tap the left pleural effusion to rule out infection. Continue nutritional support with TPN. Add jejunostomy tube feeds per surgery but presently with pretty large amount of diarrheal stool. Critical care 45 minutes aside from procedures (6) Acute bilateral deep vein thrombosis (DVT) of upper extremities Qualifiers: Affected thrombotic vein of extremity: brachial Qualified Code(s): I82.623 - Acute embolism and thrombosis of deep veins of upper extremity, bilateral (15) Acute respiratory failure Qualifiers: Respiratory failure complication: hypoxia Qualified Code(s): J96.01 - Acute respiratory failure with hypoxia
--- NOTE | 2017-12-06 12:06 | P.PNNP ---
Subjective Interval history: remains on the ventilator. Anuric. On Fentanyl. On TPN. TF at 20 ml/hour. Serosanguinous drainage from J-P drains. Physical Exam Vital signs: Vital Signs 12/05/17 12:12 12/05/17 12:14 12/05/17 12:15 Temperature Pulse Rate 100 H 101 H 104 H Respiratory Rate 101 H 19 105 H Blood Pressure 164/76 H Pulse Oximetry 100 100 12/05/17 12:30 12/05/17 12:45 12/05/17 13:00 Temperature Pulse Rate 102 H 98 H 99 H Respiratory Rate 78 H 78 H 58 H Blood Pressure Pulse Oximetry 99 99 99 12/05/17 13:12 12/05/17 13:15 12/05/17 13:30 Temperature Pulse Rate 98 H 97 H 98 H Respiratory Rate 52 H 55 H 52 H Blood Pressure 168/81 H Pulse Oximetry 99 99 99 12/05/17 13:45 12/05/17 14:00 12/05/17 14:12 Temperature Pulse Rate 96 H 97 H 96 H Respiratory Rate 62 H 57 H 55 H Blood Pressure 182/84 H Pulse Oximetry 99 99 99 12/05/17 14:15 12/05/17 14:30 12/05/17 14:45 Temperature Pulse Rate 96 H 98 H 99 H Respiratory Rate 54 H 51 H 57 H Blood Pressure Pulse Oximetry 99 99 99 12/05/17 15:00 12/05/17 15:12 12/05/17 15:15 Temperature Pulse Rate 100 H 99 H 100 H Respiratory Rate 96 H 99 H 99 H Blood Pressure 159/73 H Pulse Oximetry 99 99 99 12/05/17 15:30 12/05/17 15:33 12/05/17 15:45 Temperature Pulse Rate 100 H 100 H 99 H Respiratory Rate 99 H 18 99 H Blood Pressure Pulse Oximetry 99 99 99 12/05/17 16:00 12/05/17 16:12 12/05/17 16:15 Temperature 99 F Pulse Rate 98 H 103 H 104 H Respiratory Rate 70 H 85 H 83 H Blood Pressure 156/72 H Pulse Oximetry 99 99 99 12/05/17 16:30 12/05/17 16:45 12/05/17 17:00 Temperature Pulse Rate 107 H 110 H 111 H Respiratory Rate 72 H 79 H 88 H Blood Pressure Pulse Oximetry 99 99 98 12/05/17 17:12 12/05/17 17:15 12/05/17 17:30 Temperature Pulse Rate 114 H 114 H 115 H Respiratory Rate 110 H 111 H 79 H Blood Pressure 147/67 H Pulse Oximetry 98 98 98 12/05/17 17:45 12/05/17 18:00 12/05/17 18:15 Temperature Pulse Rate 107 H 103 H 97 H Respiratory Rate 107 H 53 H 52 H Blood Pressure Pulse Oximetry 99 99 99 12/05/17 18:30 12/05/17 18:45 12/05/17 19:00 Temperature Pulse Rate 95 H 111 H 93 H Respiratory Rate 56 H 47 H 44 H Blood Pressure Pulse Oximetry 99 99 99 12/05/17 19:15 12/05/17 19:30 12/05/17 19:45 Temperature Pulse Rate 92 H 91 H 89 Respiratory Rate 22 24 21 Blood Pressure Pulse Oximetry 99 99 99 12/05/17 20:00 12/05/17 20:15 12/05/17 20:30 Temperature 99.6 F Pulse Rate 90 94 H 98 H Respiratory Rate 22 24 19 Blood Pressure Pulse Oximetry 99 99 99 12/05/17 20:45 12/05/17 21:00 12/05/17 21:15 Temperature Pulse Rate 102 H 106 H 99 H Respiratory Rate 21 23 21 Blood Pressure Pulse Oximetry 99 99 99 12/05/17 21:30 12/05/17 21:45 12/05/17 22:00 Temperature Pulse Rate 112 H 120 H 118 H Respiratory Rate 22 25 H Blood Pressure Pulse Oximetry 98 98 12/05/17 23:29 12/06/17 00:00 12/06/17 02:00 Temperature 98.6 F Pulse Rate 114 H 117 H 106 H Respiratory Rate 18 23 Blood Pressure Pulse Oximetry 99 99 12/06/17 03:30 12/06/17 04:00 12/06/17 06:00 Temperature 99.2 F Pulse Rate 107 H 106 H 90 Respiratory Rate 18 19 Blood Pressure Pulse Oximetry 99 99 12/06/17 08:00 12/06/17 08:50 12/06/17 11:25 Temperature Pulse Rate 98 H 91 H Respiratory Rate 18 19 19 Blood Pressure Pulse Oximetry 100 100 Intake & Output 12/05/17 12/06/17 12/06/17 18:59 06:59 18:59 Intake Total 895 / 895 2013.2588 / 1084.7969 / 1084.7969 Output Total 4940 / 4940 820 / 820 Balance -4045 / -4045 1194.2588 / 1194.2588 1084.7969 / 1084.7969 Weight 83.3 kg Intake: IV 750 / 750 1732.2588 / 1732.2588 1084.7969 / 1084.7969 Versed Inj 50 mg In 50 ml @ 2 50 / 50 100 / 100 50 / 50 MG/HR 2 mls/hr IV.CONT TITRATE PRN Rx#:[id number] Intralipid 20% Inj 250 ML @ 31. 250 / 250 250 / 250 25 mls/hr IV.SIG Q24H [facility] Rx#: [id number] Mycamine Inj 100 MG In NS Inj 100 / 100 100 ML @ 100 mls/hr IV.SIG Q24H [facility] Rx#:[id number] Zosyn 2.25 GM Premix 50 ML @ 100 / 100 100 / 100 100 mls/hr IV.SIG Q8H [facility] Rx#: [id number] Sodium Chloride 23.4% Inj 5.5 1032.2588 / 1032.2588 MEQ Sodium Acetate Inj 29.5 MEQ KCl Inj 20 MEQ Calcium Chloride Inj 4.5 MEQ MVI-12 Inj 10 ML Folvite Inj 1 MG In Clinimix 5%/D20W Inj 1,000 ML @ 40.275 mls/hr IV.SIG Q24H [facility] Rx#:[id number] fentaNYL 10 mcg/mL Premix Drip 250 / 250 250 / 250 2,500 mcg In 250 ml @ 50 MCG/HR 5 mls/hr IV.SIG TITRATE PRN Rx #:[id number] Tube Feeding 145 / 145 222 / 222 Water Bolus Amount 60 / 60 Output: Urine 0 / 0 Hemodialysis Amount 4500 / 4500 Gastric Drainage 50 / 50 100 / 100 Right Nare Nasogastric Tube 50 / 50 100 / 100 Wound Drainage 390 / 390 720 / 720 # 1 Right Abdomen 40 / 40 20 / 20 # 2 Right Abdomen 350 / 350 700 / 700 Other: Date of Last Bowel Movement 12/05/17 12/05/17 - Constitutional Comments: on the ventilator. - Routine HEENT Exam Head: Present: normocephalic, atraumatic Eye: Present: EOMI, PERRL - Routine Neck Exam Present: supple. Absent: JVD, lymphadenopathy, thyromegaly - Routine Respiratory Exam Present: CTA bilaterally Comments: vented breath sounds. - Routine Cardiovascular Exam Present: RRR, S1, S2 - Routine Neurological Exam neurologically: he is unresponsive. - Urinary Catheter Management Indwelling Temp Sensing Catheter Cath placed during this visit: no Assessment and Plan - Assessment (1) JACLYN (acute kidney injury) Code(s): N17.9 - Acute kidney failure, unspecified Status: Acute Plan: Anuric renal failure. He has become dialysis dependent. Dialysis every 2nd day. Monitor for recovery. Continue supportive care. Avoid nephrotoxic agents. (2) Acute respiratory failure Code(s): J96.00 - Acute respiratory failure, unspecified whether with hypoxia or hypercapnia Status: Acute Qualifiers: Respiratory failure complication: hypoxia Qualified Code(s): J96.01 - Acute respiratory failure with hypoxia Plan: on the ventilator. Possible aspiration. (3) Gastric perforation Code(s): K25.5 - Chronic or unspecified gastric ulcer with perforation Status : Acute Plan: s/p surgery. Subtotal gastrectomy here. In [facility] he had: Dinh-en-y esophagojejunostomy, feeding jejunostomy placement, diagnostic EGD, primary fascial closure. Date of procedure: 11/28/17 (4) Candidemia Code(s): B37.7 - Candidal sepsis Status: Acute Plan: On Micafungin. Patient is also on Zosyn. Dose medications appropriate to renal function. (5) DVT (deep venous thrombosis) Code(s): I82.409 - Acute embolism and thrombosis of unspecified deep veins of unspecified lower extremity Status: Acute Plan: On heparin drip. DVT of bilateral upper extremities. (6) Anemia Code(s): D64.9 - Anemia, unspecified Status: Acute Plan: Hemoglobin is 7.7. Could be multifactorial. Rule out bleeding. Also could be due to renal failure.
[2017-12-06] MEDS: hydrALAZINE 50 MG Tablet PO SCH ×2 (12:11→17:48)
--- NOTE | 2017-12-06 12:36 | P.PNID ---
Subjective Remarks: Patient reintubated 12/04 for acute hypoxic respiratory failure. Remain on the vent. Discussed with RN. Afebrile. White blood cell count is still elevated. Sputum culture has normal mega. This is a 46-year-old black male who initially was admitted to the hospital on 11/22/2017. The patient was found to have no pneumoperitoneum on 11/23/2017. He presented with severe abdominal pain. He was also noted to have ischemia of the proximal two-thirds of the stomach and there was a large gastric perforation and contamination of food particles into the peritoneum. The patient ended up being transferred to [facility] in [place] and he underwent subtotal gastrectomy and Dinh-en-Y esophageal jejunostomy and a feeding jejunostomy tube placement. He was put on antifungal medication for candidemia. The results of the cultures are not available to me at this time. The culture reportedly was from [facility] in [place]. He was transferred back to [facility] on 11/29/2017 from [facility]. The reason for this consultation is for candidemia. During the hospitalization, the patient was also noted to have code blue PEA arrest and he underwent CPR. He is currently sedated and on the ventilator. His blood pressure is stable. He had a temperature of 101.7 degrees earlier today. His white blood cell count is also elevated at 27.5. He is currently on micafungin along with Piperacillin. Blood culture taken from yesterday has no growth in 1 day. There was a sputum culture from 11/26/2017 which had Klebsiella pneumoniae. The is the ZAINAB tube exiting the abdomen, has serosanguineous drainage. Antibiotics: Micafungin Zosyn Allergies/Adverse Reactions: Allergies No Known Allergies Allergy (Verified 11/22/17 02:38) Objective Vital Signs 12/05/17 12:45 12/05/17 13:00 12/05/17 13:12 Temperature Pulse Rate 98 H 99 H 98 H Respiratory Rate 78 H 58 H 52 H Blood Pressure 168/81 H Pulse Oximetry 99 99 99 12/05/17 13:15 12/05/17 13:30 12/05/17 13:45 Temperature Pulse Rate 97 H 98 H 96 H Respiratory Rate 55 H 52 H 62 H Blood Pressure Pulse Oximetry 99 99 99 12/05/17 14:00 12/05/17 14:12 12/05/17 14:15 Temperature Pulse Rate 97 H 96 H 96 H Respiratory Rate 57 H 55 H 54 H Blood Pressure 182/84 H Pulse Oximetry 99 99 99 12/05/17 14:30 12/05/17 14:45 12/05/17 15:00 Temperature Pulse Rate 98 H 99 H 100 H Respiratory Rate 51 H 57 H 96 H Blood Pressure Pulse Oximetry 99 99 99 12/05/17 15:12 12/05/17 15:15 12/05/17 15:30 Temperature Pulse Rate 99 H 100 H 100 H Respiratory Rate 99 H 99 H 99 H Blood Pressure 159/73 H Pulse Oximetry 99 99 99 12/05/17 15:33 12/05/17 15:45 12/05/17 16:00 Temperature 99 F Pulse Rate 100 H 99 H 98 H Respiratory Rate 18 99 H 70 H Blood Pressure Pulse Oximetry 99 99 99 12/05/17 16:12 12/05/17 16:15 12/05/17 16:30 Temperature Pulse Rate 103 H 104 H 107 H Respiratory Rate 85 H 83 H 72 H Blood Pressure 156/72 H Pulse Oximetry 99 99 99 12/05/17 16:45 12/05/17 17:00 12/05/17 17:12 Temperature Pulse Rate 110 H 111 H 114 H Respiratory Rate 79 H 88 H 110 H Blood Pressure 147/67 H Pulse Oximetry 99 98 98 12/05/17 17:15 12/05/17 17:30 12/05/17 17:45 Temperature Pulse Rate 114 H 115 H 107 H Respiratory Rate 111 H 79 H 107 H Blood Pressure Pulse Oximetry 98 98 99 12/05/17 18:00 12/05/17 18:15 12/05/17 18:30 Temperature Pulse Rate 103 H 97 H 95 H Respiratory Rate 53 H 52 H 56 H Blood Pressure Pulse Oximetry 99 99 99 12/05/17 18:45 12/05/17 19:00 12/05/17 19:15 Temperature Pulse Rate 111 H 93 H 92 H Respiratory Rate 47 H 44 H 22 Blood Pressure Pulse Oximetry 99 99 99 12/05/17 19:30 12/05/17 19:45 12/05/17 20:00 Temperature 99.6 F Pulse Rate 91 H 89 90 Respiratory Rate 24 21 22 Blood Pressure Pulse Oximetry 99 99 99 12/05/17 20:15 12/05/17 20:30 12/05/17 20:45 Temperature Pulse Rate 94 H 98 H 102 H Respiratory Rate 24 19 21 Blood Pressure Pulse Oximetry 99 99 99 12/05/17 21:00 12/05/17 21:15 12/05/17 21:30 Temperature Pulse Rate 106 H 99 H 112 H Respiratory Rate 23 21 22 Blood Pressure Pulse Oximetry 99 99 98 12/05/17 21:45 12/05/17 22:00 12/05/17 23:29 Temperature Pulse Rate 120 H 118 H 114 H Respiratory Rate 25 H 18 Blood Pressure Pulse Oximetry 98 99 12/06/17 00:00 12/06/17 02:00 12/06/17 03:30 Temperature 98.6 F Pulse Rate 117 H 106 H 107 H Respiratory Rate 23 18 Blood Pressure Pulse Oximetry 99 99 12/06/17 04:00 12/06/17 06:00 12/06/17 08:00 Temperature 99.2 F Pulse Rate 106 H 90 Respiratory Rate 19 18 Blood Pressure Pulse Oximetry 99 100 12/06/17 08:50 12/06/17 11:25 Temperature Pulse Rate 98 H 91 H Respiratory Rate 19 19 Blood Pressure Pulse Oximetry 100 Intake & Output 12/05/17 12/06/17 12/06/17 18:59 06:59 18:59 Intake Total 895 / 895 / 1084.7969 / 1084.7969 Output Total 4940 / 4940 820 / 820 Balance -4045 / -4045 1194.2588 / 1194.2588 1084.7969 / 1084.7969 Weight 83.3 kg Intake: IV 750 / 750 1732.2588 / 1732588 1084.7969 / 1084.7969 Versed Inj 50 mg In 50 ml @ 2 50 / 50 100 / 100 50 / 50 MG/HR 2 mls/hr IV.CONT TITRATE PRN Rx#:[id number] Intralipid 20% Inj 250 ML @ 31. 250 / 250 250 / 250 25 mls/hr IV.SIG Q24H [facility] Rx#: [id number] Mycamine Inj 100 MG In NS Inj 100 / 100 100 ML @ 100 mls/hr IV.SIG Q24H [facility] Rx#:[id number] Zosyn 2.25 GM Premix 50 ML @ 100 / 100 100 / 100 100 mls/hr IV.SIG Q8H [facility] Rx#: [id number] Sodium Chloride 23.4% Inj 5.5 1032.2588 / 1032.2588 MEQ Sodium Acetate Inj 29.5 MEQ KCl Inj 20 MEQ Calcium Chloride Inj 4.5 MEQ MVI-12 Inj 10 ML Folvite Inj 1 MG In Clinimix 5%/D20W Inj 1,000 ML @ 40.275 mls/hr IV.SIG Q24H [facility] Rx#:[id number] fentaNYL 10 mcg/mL Premix Drip 250 / 250 250 / 250 2,500 mcg In 250 ml @ 50 MCG/HR 5 mls/hr IV.SIG TITRATE PRN Rx #:[id number] Tube Feeding 145 / 145 222 / 222 Water Bolus Amount 60 / 60 Output: Urine 0 / 0 Hemodialysis Amount 4500 / 4500 Gastric Drainage 50 / 50 100 / 100 Right Nare Nasogastric Tube 50 / 50 100 / 100 Wound Drainage 390 / 390 720 / 720 # 1 Right Abdomen 40 / 40 20 / 20 # 2 Right Abdomen 350 / 350 700 / 700 Other: Date of Last Bowel Movement 12/05/17 12/05/17 12/04/17 00:15 Sputum - Endotracheal Gram Stain - Final 12/04/17 00:15 Sputum - Endotracheal Sputum Culture - Final Light growth normal respiratory mega 11/30/17 13:33 Blood - Peripheral Aerobic Blood Culture - Final No growth in 5 days 11/30/17 13:33 Blood - Peripheral Anaerobic Blood Culture - Final No growth in 5 days 11/30/17 03:19 Blood - Peripheral Aerobic Blood Culture - Final No growth in 5 days 11/30/17 03:19 Blood - Peripheral Anaerobic Blood Culture - Final No growth in 5 days Lab - Hematology Results 12/04/17 12/05/17 12/06/17 15:00 01:03 04:42 WBC 24.1 H 25.9 H RBC 2.43 L 2.44 L Hgb 7.7 L 7.7 L 7.5 L Hct 22.3 L 21.3 L 21.7 L MCV 87.5 89.3 MCH 31.6 30.8 MCHC 36.1 H 34.5 RDW 15.0 15.7 Plt Count 266 D 382 D MPV 11.2 H 10.4 Prelim Diff (Auto) Slide review pending Slide review pending Neut % (Auto) 80.0 H 81.7 H Lymph % (Auto) 9.3 6.0 L [place] % (Auto) 9.1 H 11.1 H Eos % (Auto) 1.2 1.1 Baso % (Auto) 0.4 0.1 Neut # (Auto) 19.3 H 21.2 H Lymph # (Auto) 2.3 1.6 [place] # (Auto) 2.2 H 2.9 H Eos # (Auto) 0.3 0.3 Baso # (Auto) 0.1 0.0 WBC Differential Manual diff final Manual diff final Seg Neuts % (Manual) 79 H 81 H Band Neuts % (Manual) 3 1 Lymphocytes % (Manual) 5 L 7 L Monocytes % (Manual) 7 4 Eosinophils % (Manual) 1 Basophils % (Manual) 1 Metamyelocytes % (Man) 3 H Myelocytes % (Man) 3 H 4 H Promyelocytes % (Man) 1 H Abs Neuts (Manual) 20.7 H 23.1 H Nucleated RBCs/100 WBC 1 H Differential Comment . . Toxic Granulation 1+ H Dohle Bodies Present H Platelet Estimate Normal Normal Platelet Morphology Enlarged H Enlarged H Polychromasia 2.2 H Basophilic Stippling Faint H Target Cells 1+ H Acanthocytes (Spur) Occ H Keratocytes Occ H Lab - Chemistry Results 12/04/17 12/04/17 12/05/17 17:33 21:49 01:29 Sodium Potassium Chloride Carbon Dioxide Anion Gap BUN Creatinine Estimated GFR POC Glucose 123 H 124 H 124 H Random Glucose Calcium Phosphorus Magnesium Total Bilirubin AST ALT Alkaline Phosphatase Total Protein Albumin 12/05/17 12/05/17 12/05/17 05:30 11:24 17:00 Sodium 135 L Potassium 4.6 Chloride 97 L Carbon Dioxide 24.6 Anion Gap 13 BUN 94 H Creatinine 8.38 H Estimated GFR 8 L POC Glucose 128 H 128 H Random Glucose 133 H Calcium 7.7 L Phosphorus 6.0 H Magnesium 2.8 H Total Bilirubin 2.9 H AST 157 H ALT 209 H Alkaline Phosphatase 128 H Total Protein 5.7 L Albumin 1.6 L 12/05/17 12/06/17 12/06/17 20:09 00:05 04:37 Sodium Potassium Chloride Carbon Dioxide Anion Gap BUN Creatinine Estimated GFR POC Glucose 132 H 125 H 126 H Random Glucose Calcium Phosphorus Magnesium Total Bilirubin AST ALT Alkaline Phosphatase Total Protein Albumin 12/06/17 12/06/17 12/06/17 04:42 08:19 11:26 Sodium 139 Potassium 4.6 Chloride 100 Carbon Dioxide 25.6 Anion Gap 13 BUN 80 H Creatinine 7.29 H Estimated GFR 10 L POC Glucose 135 H 280 H Random Glucose 124 H Calcium 8.1 L Phosphorus 5.8 H Magnesium 2.6 H Total Bilirubin 2.7 H AST 163 H ALT 213 H Alkaline Phosphatase 285 H Total Protein 6.1 L Albumin 1.6 L 12/06/17 11:55 Sodium Potassium Chloride Carbon Dioxide Anion Gap BUN Creatinine Estimated GFR POC Glucose 150 H Random Glucose Calcium Phosphorus Magnesium Total Bilirubin AST ALT Alkaline Phosphatase Total Protein Albumin Imaging: ITS Impressions Head MRI 12/03/17 00:00 CONCLUSION: 1. Minimal nonspecific periventricular white matter changes. 2. No restricted diffusion to suggest an acute ischemic event. 3. No evidence for significant ischemic changes. Chest X-Ray 12/04/17 00:01 CONCLUSION: 1. No significant change left greater than the right consolidation and effusions at the bases. 2. Lines and tubes as above. Endotracheal tube tip is approximately 2.7 cm above the [place]. Abdomen/Pelvis CT 12/04/17 00:02 CONCLUSION: 1. Interim midline laparotomy and gastrectomy with apparent Dinh-en-Y. 2. Bowel gas pattern consistent with obstruction of the duodenum and proximal jejunum. I don't see a mass. There does seem to be some jejunal wall thickening around the jejunostomy tube. 3. Wall thickening and mucosal enhancement of the colon consistent with moderate severity colitis. C. difficile colitis would be in the differential. 4. Solid organs are within normal limits. 5. Small ascites. Also diffuse body wall edema/anasarca. No perceptible hemorrhage. Chest CT 12/04/17 00:06 CONCLUSION: 1. Left greater than right pleural effusions and basilar atelectasis. 2. No hemorrhage or hematoma demonstrated. 3. Distended and fluid-filled esophagus. No wall thickening. Patient is status post gastrectomy. Nasogastric tube is at the GE junction. 4. Body wall edema/anasarca. Physical Exam: PHYSICAL EXAMINATION: GENERAL: Patient on the vent. No distress. HEENT: No icterus. NECK: Supple without adenopathy or swelling. LUNGS: Decreased breath sounds. HEART: Regular S1, S2. No audible murmur. ABDOMEN: ZAINAB tubes x 2 exits the right abdomen and has serosanguineous drainage. EXTREMITIES: No clubbing or cyanosis. Swelling of the upper extremities. SKIN: No diffuse rash. NEUROLOGIC: unable to assess, intubated. PSYCHIATRIC: Unable to assess. Assessment and Plan - Plan IMPRESSION: 1. Candidemia following gastric perforation and gastric ischemia. Blood culture at [facility] in [place] on 11/26 had Starr glabrata. Repeat blood culture is negative. 2. Status post abdominal surgery. 3. Acute respiratory failure. 4. Aspiration. Sputum culture negative. 5. Acute kidney disease. 5. Recent cardiac arrest. 6. Leukocytosis. RECOMMENDATIONS: 1. Continue micafungin for candidemia. 2. Continue piperacillin/tazobactam. 3. Monitor white blood cell count. 4. Monitor the temperature. 5. Monitor clinical status.
--- NOTE | 2017-12-06 15:14 | P.DIET ---
Nutritional Evaluation Type of nutrition evaluation: follow-up Nutrition consult regarding: Tube Feeding, TPN/PPN Nutrition screening: [facility] Screening comments: Re-admitted transfer from [facility]. Subjective Subjective Comments: Assessment here uses HT from previous admission 190.5cm(75 inches). Objective - Diagnosis Gastroenteritis - Objective % IBW: 107 (IBW = 196#) Body Weight Used for Calculations: Actual (95.3 kg) Energy Needs - Lower Range (kCal/kg): 28 Energy Needs - Upper Range (kCal/kg): 32 Lower Limit kCal/kg (kCals): 2,668 Upper Limit kCal/kg (kCals): 3,050 Lower Limit Protein Factor (Grams per Kg): 1.2 Upper Limit Protein Factor (Grams per Kg): 1.5 Lower Protein Needs (Protein): 114 Upper Protein Needs (Protein): 143 Dietitian Reviewed in Medical Record: Curent medications, Intake & Output, Labs , Medical history, TPN/PPN, Tube feeding Diet Order: NPO Objective Comments: see recent extensive hx in H&P Labs: TG 99, BUN/creat 80/7.29, estGFR 10, Phosphorus 5.8, LFTs elev, glucose 124 Feeding - Current Tube Feeding Tube Feeding Product: Nepro Tube Feeding Rate: 20 (mls/hr) Tube Feeding Route: jejunostomy Current kCals Provided by Tube Feedin Current Protein Provided by Tube Feeding (gPRO): 39 Current Free H2O Provided (m/l): 349 - Current TPN/PPN Current TPN: Clinimix 5/20 Current TPN/PPN Rate (ml/hr): 40 Amino Acid and Dextrose Current kCals Provided: 845 Amino Acid and Dextrose Current Protein Provided: 48 Current Lipid Concentration: 20% Current Lipids Rate: 250 mls daily over 8 hours Current kCal Provided by TPN/PPN: 1,345 Assessment Assessment: Pt continues at high nutritional risk r/t Clinical Status and need for alternative method of nutrition. TPN/lipids and TF as above. Pt currently receiving dialysis Q 2-days. To meet 100% of assessed needs, w/current TF rate of Nepro @ 20 mls/hr, Rec to increase current TPN formula to 65 ml/hr w/current Lipids. This will provide total nutrition of 2737 kcal and 117 g protein. Labs, wts and clinical course reviewed. Recommendations: To meet 100% of assessed needs, w/current TF rate of Nepro @ 20 mls/hr, Rec to increase current TPN formula to 65 ml/hr. w/current Lipids Dietitian to Monitor: Lab values, Electrolytes, Renal labs, Glucose level, Intake & Output, Tube feeding tolerance, TPN/PPN tolerance, Weight change, Medical course
[2017-12-07] MEDS: Midazolam 50 MG/50 ML Inj 50 MG/50 ML BAG IV.CONT PRN ×4 (01:35→18:54)
[2017-12-07] MEDS: Insulin NovoLOG Aspart Correctional Sugar Inj SQ SCH ×6 (03:05→19:43)
[2017-12-07] MEDS: Oral Hygiene Kit OROPHARYNG SCH ×9 (03:06→23:52)
[2017-12-07] MEDS: hydrALAZINE HCl Inj 20 MG/ML Vial IV.PUSH PRN (04:21)
[2017-12-07 05:11] LABS: Baso # (Auto) 0.1 th/mm3 (0.0-0.2); Baso % (Auto) 0.4 % (0.0-2.0); Eos # (Auto) 0.3 th/mm3 (0.0-0.4); Eos % (Auto) 1.1 % (0.0-4.0); Hematocrit 21.6 % (39.0-51.0); Hemoglobin 7.2 gm/dL (13.0-17.0); Lymph # (Auto) 1.1 th/mm3 (1.0-4.8); Lymph % (Auto) 4.6 % (9.0-44.0); Mean Corpuscular HGB Conc 33.4 % (32.0-36.0); Mean Corpuscular Hemoglobin 30.1 pg (27.0-34.0); Mean Corpuscular Volume 89.9 fL (80.0-100.0); Mean Platelet Volume 9.9 fL (7.0-11.0); Mono # (Auto) 2.4 th/mm3 (0.0-0.9); Neut # (Auto) 20.3 th/mm3 (1.8-7.7); Neut % (Auto) 83.9 % (16.0-70.0); Platelet Count 497 th/mm3 (150-450); Red Blood Count 2.41 mil/mm3 (4.50-5.90); Red Cell Distribution Width 15.8 % (11.6-17.2); White Blood Count 24.2 th/mm3 (4.0-11.0)
[2017-12-07 06:01] LABS: Alanine Aminotransferase 192 U/L (12-78); Albumin 1.6 g/dL (3.4-5.0); Alkaline Phosphatase 301 U/L (45-117); Anion Gap 14 meq/L (5-15); Aspartate Aminotransferase 139 U/L (15-37); Blood Urea Nitrogen 102 mg/dL (7-18); Carbon Dioxide 22.6 meq/L (21.0-32.0); Chloride 100 meq/L (98-107); Glomerular Filtration Rate 8 mL/min (>89); Glucose,Random 128 mg/dL (74-106); Magnesium 2.7 mg/dL (1.5-2.5); Phosphorus 7.3 mg/dL (2.5-4.9); Potassium 5.1 meq/L (3.5-5.1); Sodium 137 meq/L (136-145); Total Protein 6.1 g/dL (6.4-8.2)
[2017-12-07] MEDS: Piperacil/Tazo 2.25 GM Premix 50 ML IV.SIG SCH ×3 (06:31→22:16)
[2017-12-07 07:56] LABS: Eosinophils 3 % (0-4); Lymphocytes 6 % (9-44); Metamyelocytes 1 % (0-1); Monocytes 6 % (0-8)
[2017-12-07] MEDS: Chlorhexidine 0.12% Oral Kit 15 ML UDC OROPHARYNG SCH ×4 (08:04→19:43)
[2017-12-07] MEDS: hydrALAZINE 50 MG Tablet PO SCH ×3 (08:04→17:37)
[2017-12-07] MEDS: Pantoprazole Inj 40 MG Vial IV.PUSH SCH (08:04)
[2017-12-07] MEDS: Calcium Acetate 667 MG Capsule PO SCH ×3 (08:04→17:37)
--- NOTE | 2017-12-07 09:27 | P.PNCC ---
Subjective Subjective Remarks/Hospital Course: Patient was recently admitted to [facility] 11/22 and transferred to [facility] 11/26/17 after the following hospital course: 47-year-old -[place] male with reportedly no past medical or past surgical history who was admitted to hospitalist service 11/22/17 after presenting with abdominal pain, nausea, vomiting. He had CT abd/pelvis with massive gastric distention. NG tube had been placed. I was called to patient's bedside for CODE BLUE PEA arrest. CPR was ongoing and patient had massive abdominal distension and gastric regurgitant in the airway. He was emergently intubated and large amount of gastric secretions suctioned from oropharynx. After 21 minutes of CPR, ROSC was obtained and he was profoundly hypotensive. Continued aggressive fluid resuscitation and initiated dopamine. He was transferred to [facility] where CVL and R radial art line were placed and he was given 7 L of crystalloid and albumin. CXR demonstrated pneumoperitoneum and Dr. Martin Gudino was called emergently and he immediately contacted OR for emergent ex lap. He had intraabdominal hypertension with IAP of 40 mmHg, though fortunately was able to be ventilated adequately after rocuronium 50 mg IV and was transferred to OR. Dr. Martin Gudino took to the operating room early in the morning on 11/23 and discovered tension pneumoperitoneum, massive gastric distension, ischemia of the proximal 2/3 of the stomach and large gastric perforation with massive intraperitoneal contamination with food particles. Dr. Isaacs placed 2 NGT and decompressed 2 L of succus. Patient had initial improvement in vital signs in the immediate postoperative period, however he subsequently became hypotensive requiring upward titration of levophed and addition of vasopressin and stress dose hydrocortisone. He remains on levophed 10 mcg/min, neosynephrine 80 mcg/ min, vasopressin 0.04 units/min with overall vasopressor requirement weaning overnight. He is oliguric and creatinine is continuing to climb. He was given 2 L of crystalloid and albumin overnight. He does have significant fluid losses with combination of abdominal dressing and NGT output, so I will give an additional L of crystalloid now to monitor hourly response as he certainly does not appear volume overloaded. Nonetheless Flotrac numbers are suggesting adequate volume status and we may be seeing the consequence of ischemic ATN. May ultimately require HD, however not at this time. Abdomen remains open and plan is to re-explore 11/25. 11/25: Patient has acceptable hemodynamics by Flotrac but remains septic with requirements for phenylephrine 200 mics per minute, Levophed 8 mics per minute and vasopressin 0.04 units/min for blood pressure support. This has improved overnight and the Bhavesh-Synephrine support has been weaned off completely. Acid base balance is acceptable. ATN has developed which will undoubtedly require hemodialysis. Potassium level is normal. He is at increased risk for an anesthetic now but there is an urgent need to check for residual gastric necrosis. 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 Since the source control surgery, the maintenance of normal acid-base balance has been less difficult. Patient remains anuric with a rising creatinine above 6.0. He is clearly ahead on volume and will benefit from dialysis. A 2 lumen hemodialysis catheter was placed on 11/25 and has been packed with dilute heparin solution. The right internal jugular central line is been in place for 4 days and accessed multiple times. The femoral art line has been in for 4 days. Shock liver was apparent after the cardiac arrest reflecting a transaminitis, elevated bilirubin, and prolonged INR. The INR has remained normal following the transfusion of 4 units of fresh frozen plasma prior to surgery yesterday. A 10% dextrose infusion continues because of ongoing problems with hypoglycemia. Thrombocytopenia at 37,000 persists. He has remained on antibiotic coverage with Pipracil/tazobactam and fungal coverage with fluconazole, all adjusted for renal failure. Present vasopressor requirements include levophed at 7 mics per minute and vasopressin at 0.04 units/min. The chest x-ray is consistent with minor aspiration at the time of his preoperative cardiac arrest on the floor and cultures have subsequently grown Klebsiella, pansensitive. The operative note will clarify the extent of the surgery but in essence the distal esophagus is stapled off and marked with 2 Prolene sutures. The antrum of the stomach is oversewn. Most of the stomach has been removed. The abdomen is open with a VAC dressing applied. Subjective: 11/29: Bowel was in discontinuity following subtotal gastrectomy and patient was transferred to [facility]. On reexploration 11/28 he underwent Dinh-en-y esophagojejunostomy, feeding jejunostomy placement, diagnostic EGD, primary fascial closure. Wound vac was applied to abdomen (though currently wet to dry dressing in place upon arrival). He was reportedly found to have candidemia and was started on micafungin and has undergone ophtho eval. Lines including CVL, Vascath and art line have all been changed at [facility] (though not clear when). He remains on mechanical ventilation and has been weaned off pressors. He was found to have BUE DVTs and is on heparin drip. He is on TPN and has been started on trickle tube feeds with Nepro via jejunostomy. NGT is to [facility]. He underwent HD postoperatively on 11/28. He has now been transferred back to [facility] for ongoing management. I have updated his father and stepmother. 11/30: Patient re-admitted s/p transfer from [facility] overnight, otherwise no acute issues. Scheduled to undergo HD today. 12/01: T-max 101.7, leukocytosis to 27,000 with bandemia. Now 3 days following Dinh-en-Y reconstruction of GI tract following sub-total gastrectomy for gastric necrosis. All new lines placed after diagnosis of candidemia. TPN infusing, jejunostomy at trickle flow and can be increased slowly per general surgery. 12/02: Marked leukocytosis with bandemia persists. Afebrile over last 24 hours. Leave NG tube across the esophageal anastomosis and surgical service will direct timing of contrast study about 7 days following surgery. Continue with spontaneous breathing trials. 12/03: extubated yesterday. since then, has not followed commands, and does not talk. appears to have clinically an aphasia, although his uremia or severe hypoactive delirium could present this way. purposeful movements. will obtain MRI to rule out acute ischemia, as this appears to be a new mental status change (11/29 /[facility] notes state interactive on ventilator). 12/04: reintubated overnight: more output from ZAINAB drains. hgb dropped to 7 this AM: receiving 1 unit prbc. MRI negative for acute change. EEG ordered today to rule out subclinical status epilepticus. also concern overnight for aspiration event. 12/05: T-max 99. WBC 24,000. Reintubated yesterday for respiratory failure probably related to aspiration. Trickle feeding continues through jejunostomy. Nasogastric tube is through the anastomosis and is to low intermittent. 12/06: Afebrile. WBC 26,000. Bandemia has largely resolved. There are bilateral pleural effusions which may need to be tapped to rule out infection or leak. Both lower lobes are consolidated on CAT scan, probably representing compressive atelectasis from the effusions. 12/07: White count remains elevated at 25,000. Total parenteral nutrition infusing and tolerated. Altered mental status persists, possibly related to the cardiac arrest on the floor prior to transfer to the ICU. Objective Vital Signs / I&O: Vital Signs 12/06/17 10:00 12/06/17 10:15 12/06/17 10:30 Temperature Pulse Rate 91 H 90 89 Respiratory Rate 58 H 41 H Pulse Oximetry 100 100 12/06/17 10:45 12/06/17 11:00 12/06/17 11:15 Temperature Pulse Rate 92 H 92 H 91 H Respiratory Rate 71 H 62 H 51 H Pulse Oximetry 100 100 100 12/06/17 11:25 12/06/17 11:30 12/06/17 11:45 Temperature Pulse Rate 91 H 92 H 93 H Respiratory Rate 19 50 H 48 H Pulse Oximetry 100 100 100 12/06/17 12:00 12/06/17 12:15 12/06/17 12:30 Temperature 99.6 F Pulse Rate 93 H 92 H 92 H Respiratory Rate 55 H 63 H 53 H Pulse Oximetry 100 100 100 12/06/17 12:45 12/06/17 13:00 12/06/17 13:15 Temperature Pulse Rate 105 H 105 H 107 H Respiratory Rate 50 H 48 H 69 H Pulse Oximetry 100 99 99 12/06/17 13:30 12/06/17 13:45 12/06/17 14:00 Temperature Pulse Rate 108 H 108 H 108 H Respiratory Rate 69 H 48 H 54 H Pulse Oximetry 99 99 99 12/06/17 14:15 12/06/17 14:25 12/06/17 14:30 Temperature Pulse Rate 108 H 107 H Respiratory Rate 58 H 18 61 H Pulse Oximetry 99 99 99 12/06/17 14:45 12/06/17 15:00 12/06/17 15:15 Temperature Pulse Rate 108 H 107 H 107 H Respiratory Rate 60 H 72 H 72 H Pulse Oximetry 99 99 99 12/06/17 15:30 12/06/17 15:45 12/06/17 16:00 Temperature 98.8 F Pulse Rate 107 H 108 H 115 H Respiratory Rate 64 H 42 H 57 H Pulse Oximetry 99 99 100 12/06/17 16:15 12/06/17 16:30 12/06/17 16:45 Temperature Pulse Rate 116 H 111 H 109 H Respiratory Rate 31 H 64 H 44 H Pulse Oximetry 99 99 99 12/06/17 16:59 12/06/17 17:00 12/06/17 17:15 Temperature Pulse Rate 106 H 107 H 105 H Respiratory Rate 18 55 H 104 H Pulse Oximetry 100 99 99 12/06/17 17:30 12/06/17 17:45 12/06/17 18:00 Temperature Pulse Rate 105 H 107 H 109 H Respiratory Rate 102 H 105 H 63 H Pulse Oximetry 99 99 99 12/06/17 18:15 12/06/17 18:30 12/06/17 18:45 Temperature Pulse Rate 115 H 117 H 117 H Respiratory Rate 52 H 52 H 60 H Pulse Oximetry 98 98 98 12/06/17 19:00 12/06/17 19:15 12/06/17 19:30 Temperature Pulse Rate 117 H 116 H 116 H Respiratory Rate 47 H 62 H 53 H Pulse Oximetry 98 98 98 12/06/17 19:45 12/06/17 20:00 12/06/17 20:15 Temperature 99.6 F Pulse Rate 116 H 118 H 117 H Respiratory Rate 56 H 58 H 47 H Pulse Oximetry 98 97 95 12/06/17 20:30 12/06/17 20:45 12/06/17 21:00 Temperature Pulse Rate 118 H 117 H 117 H Respiratory Rate 52 H 48 H 46 H Pulse Oximetry 96 96 96 12/06/17 21:01 12/06/17 21:15 12/06/17 21:30 Temperature Pulse Rate 116 H 117 H 116 H Respiratory Rate 19 49 H 46 H Pulse Oximetry 96 96 97 12/06/17 21:45 12/06/17 22:00 12/06/17 22:15 Temperature Pulse Rate 117 H 117 H 116 H Respiratory Rate 42 H 42 H 47 H Pulse Oximetry 97 97 97 12/06/17 22:30 12/06/17 22:45 12/06/17 23:00 Temperature Pulse Rate 115 H 116 H 115 H Respiratory Rate 39 H 44 H 75 H Pulse Oximetry 97 98 98 12/06/17 23:15 12/06/17 23:30 12/06/17 23:45 Temperature Pulse Rate 114 H 114 H 114 H Respiratory Rate 46 H 97 H 77 H Pulse Oximetry 98 98 98 12/06/17 23:47 12/07/17 00:00 12/07/17 00:15 Temperature 99.8 F H Pulse Rate 113 H 116 H 117 H Respiratory Rate 19 43 H 43 H Pulse Oximetry 98 96 96 12/07/17 00:30 12/07/17 00:45 12/07/17 01:00 Temperature Pulse Rate 116 H 116 H 114 H Respiratory Rate 38 H 36 H 49 H Pulse Oximetry 97 96 97 12/07/17 01:15 12/07/17 01:30 12/07/17 01:45 Temperature Pulse Rate 113 H 112 H 121 H Respiratory Rate 33 H 38 H 38 H Pulse Oximetry 97 97 96 12/07/17 02:00 12/07/17 02:15 12/07/17 02:30 Temperature Pulse Rate 119 H 119 H 116 H Respiratory Rate 52 H 97 H 19 Pulse Oximetry 96 97 96 12/07/17 02:45 12/07/17 03:00 12/07/17 03:15 Temperature Pulse Rate 112 H 110 H 109 H Respiratory Rate 47 H 47 H 43 H Pulse Oximetry 96 97 97 12/07/17 03:30 12/07/17 03:45 12/07/17 04:00 Temperature 99.2 F Pulse Rate 108 H 108 H 107 H Respiratory Rate 65 H 54 H 72 H Pulse Oximetry 97 97 97 12/07/17 04:15 12/07/17 04:44 12/07/17 06:00 Temperature Pulse Rate 106 H 112 H 110 H Respiratory Rate 85 H 20 Pulse Oximetry 97 97 12/07/17 07:38 Temperature Pulse Rate 112 H Respiratory Rate 20 Pulse Oximetry Intake & Output 12/06/17 12/07/17 12/07/17 18:59 06:59 18:59 Intake Total 2772.0557 / 2772.0557 650 / 650 100 / 100 Output Total 1530 / 1530 870 / 870 Balance 1242.0557 / 1242.0557 -220 / -220 100 / 100 Weight 82 kg Intake: IV 2417.0557 / 2417.0557 650 / 650 100 / 100 Versed Inj 50 mg In 50 ml @ 2 100 / 100 100 / 100 50 / 50 MG/HR 2 mls/hr IV.CONT TITRATE PRN Rx#:[id number] Diprivan 1000 mg/100 ml Inj 1, 100 / 100 000 mg In 100 ml @ 5 MCG/KG/MIN 2.859 mls/hr IV.CONT TITRATE PRN Rx#:[id number] Intralipid 20% Inj 250 ML @ 31. 0 / 0 250 / 250 25 mls/hr IV.SIG Q24H COLE Rx#: [id number] Mycamine Inj 100 MG In NS Inj 100 / 100 100 ML @ 100 mls/hr IV.SIG Q24H COLE Rx#:[id number] Zosyn 2.25 GM Premix 50 ML @ 50 / 50 50 / 50 50 / 50 100 mls/hr IV.SIG Q8H COLE Rx#: [id number] Sodium Chloride 23.4% Inj 5.5 1032.2588 / 1032.2588 MEQ Sodium Acetate Inj 29.5 MEQ KCl Inj 20 MEQ Calcium Chloride Inj 4.5 MEQ MVI-12 Inj 10 ML Folvite Inj 1 MG In Clinimix 5%/D20W Inj 1,000 ML @ 40.275 mls/hr IV.SIG Q24H COLE Rx#:[id number] fentaNYL 10 mcg/mL Premix Drip 250 / 250 2,500 mcg In 250 ml @ 50 MCG/HR 5 mls/hr IV.SIG TITRATE PRN Rx #:[id number] Tube Feeding 235 / 235 Tube Irrigant 60 / 60 Water Bolus Amount 60 / 60 Output: Stool 275 / 275 100 / 100 Gastric Drainage 75 / 75 Right Nare Nasogastric Tube 75 / 75 Wound Drainage 1180 / 1180 770 / 770 # 1 Right Abdomen 70 / 70 20 / 20 # 2 Right Abdomen 1110 / 1110 750 / 750 Other: Date of Last Bowel Movement 12/06/17 12/07/17 Result Diagrams: 12/07/17 04:50 12/07/17 04:50 Objective Remarks: GEN: Chronically ill-appearing, heavily sedated for vent synchrony HEENT: NCAT, pupils 3 mm and reactive bilaterally NECK: RIJ vasc-cath and LIJ TLC present, clean/ dry/ intact CARDIO: NSR, regular at 110 no murmur, neck veins full PULM: prvc, fio2 45%. equal chest rise. Scattered rhonchi persist, decreased breath sounds both bases.. ABD: Midline surgical bandages clean/ dry/ intact. ZAINAB #1 is anterior to esophagojejunostomy anastomosis, ZAINAB #2 posterior, both with serosanguineous drainage. Abdomen soft. Fascia is closed, skin is open, depth of wound is minimal. Open tissue is clean. EXT/MSK: Anasarca SKIN: No rashes or lesions NEURO: Moves 4 limbs spontaneously. Purposeful with arms, tracks with eyes. Opens eyes to loud voice. Assessment and Plan - Problem List (1) Gastric perforation Code(s): K25.5 - Chronic or unspecified gastric ulcer with perforation Status : Acute (2) Status post total gastrectomy and Dinh-en-Y esophagojejunal anastomosis Code(s): Z90.3 - Acquired absence of stomach [part of]; Z98.0 - Intestinal bypass and anastomosis status Status: Acute (3) Ischemic hepatitis Code(s): K75.9 - Inflammatory liver disease, unspecified Status: Acute (4) Gastric necrosis Code(s): K31.89 - Other diseases of stomach and duodenum Status: Acute (5) Thrombocytopenia Code(s): D69.6 - Thrombocytopenia, unspecified Status: Acute (6) Acute bilateral deep vein thrombosis (DVT) of upper extremities Code(s): I82.623 - Acute embolism and thrombosis of deep veins of upper extremity, bilateral Status: Acute (7) Anemia Code(s): D64.9 - Anemia, unspecified Status: Acute (8) Leukocytosis Code(s): D72.829 - Elevated white blood cell count, unspecified Status: Acute (9) Candidemia Code(s): B37.7 - Candidal sepsis Status: Acute (10) On total parenteral nutrition (TPN) Code(s): Z78.9 - Other specified health status Status: Acute (11) Hx of cardiac arrest Code(s): Z86.74 - Personal history of sudden cardiac arrest Status: Resolved (12) Acute hemodialysis patient Code(s): Z99.2 - Dependence on renal dialysis Status: Acute (13) JACLYN (acute kidney injury) Code(s): N17.9 - Acute kidney failure, unspecified Status: Acute (14) Aspiration pneumonia Code(s): J69.0 - Pneumonitis due to inhalation of food and vomit Status: Acute (15) Acute respiratory failure Code(s): J96.00 - Acute respiratory failure, unspecified whether with hypoxia or hypercapnia Status: Acute - Assessment and Plan Plan: NEURO: Acute metabolic encephalopathy- severe MRI 12/03: negative for acute change EEG today. could be delirium vs. uremic encephalopathy vs anoxic brain injury following code RESP: Acute hypoxic and hypercarbic respiratory failure- recurrent, severe Healthcare associated aspiration pneumonia extub 12/02, reintubated 12/03 overnight wean fio2 to keep spo2 > 90% vent bundle aggressive pulmonary toilet PT/OT Required reintubation 12/04 Persistent bilateral pleural effusions left greater than right, consolidation both lower lobes. Consider tapping effusions for diagnostic and therapeutic purposes CV: Cardiac arrest 11/23/17 (PEA arrest due to shock secondary to acute gastric perf and tension pneumoperitoneum) Septic shock, resolved Now off pressors Hemodynamic monitoring with L radial art line Concern for anoxic injury at the time of arrest. GI: s/p gastric perforation with tension pneumoperitoneum status post ex lap with primary repair of anterior gastric perforation with stapler 11/23 On second look 11/25 he was found to have gastric necrosis requiring subtotal gastrectomy and placement of Abthera VAC dressing. The bowel was in discontinuity and he was transferred to [facility]. On 11/28 he underwent reexploration with Dinh-en-y esophagojejunostomy, feeding jejunostomy placement, diagnostic EGD, primary fascial closure Gastric necrosis Ischemic hepatopathy NGT to LIWS, do not manipulate NGT per general surgery orders from [facility]. Has feeding jejunostomy and tube feeds with Nepro 10 mL per hour had been started at [facility], continue for now with further management per general surgery. ZAINAB drains in place #1 anterior to anastomosis, #2 posterior to the anastomosis. Management per general surgery. Continue TPN renal formula 46 mL/hr. Intermittent lipids daily. General surgery recs appreciated per gen surg: restart tube feeds. CT abd/pelvis 12/03 without acute abdominal pathology. Had right upper quadrant ultrasound on 11/27/17 that demonstrated contracted gallbladder with sludge. No evidence of cholecystitis. Echogenicity in right liver related to focal fatty change or altered perfusion. Color Doppler interrogation through the region demonstrates patent vascularity. FEN/RENAL: JACLYN secondary to ischemic ATN HD as started 11/26 at [place]. Had HD 3 hours on 11/28 at [facility] with 1700 mL UF; HD today Has Delgado in place currently. Has R IJ Vascath. Monitor I/O and electrolytes. Nephrology consult. prealbumin low at 14 on 12/01. trend weekly. ID: Gastric perforation with large amount particulate peritoneal contamination 11/23 Acute Aspiration pneumonia Candidemia - reportedly blood cultures at OSH were positive. Will request records from microbiology. Patient had been on micafungin 100 mg IV daily (started at [facility]) with last administration at 10 AM on 11/29. Was previously on diflucan IV. On Zosyn 2.25 IV every 8 hours with last administration 11/29 at noon. Will continue zosyn/micafungin. Patient was evaluated by ophthalmology prior to transfer. I do not see an ophthalmology note in the transfer documentation. I have requested this document. Requested culture data from [facility]. Send blood culture x2 sets now. Sputum culture 11/24 with pansensitive Klebsiella pneumonia ID consult HEME: Thrombocytopenia Bilateral upper extremity DVTs Anemia secondary to acute blood loss-requiring transfusion U/s 11/26 BUE - thrombus R axillary, brachial and basilic veins and thrombus in left axillary and left brachial veins. U/s bilateral lower extremities 11/26 at [facility] negative from common femoral to popliteal vein levels. Arrived on heparin drip Hematology consult was obtained at [facility] and recommended heparin drip and transfuse prn for platelets <50k. Will use target PTT 40-65 now, no boluses. Monitor CBC 1 unit prbc 12/04. recheck in AM. Hold chemical DVT prophylaxis ENDO: Monitor Glucose q4 hours and use low dose insulin sliding scale as indicated. PROPH: Discontinue heparin drip and hold subcu for DVT prophylaxis (oozing under dressing). Protonix 40 mg IV daily for stress ulcer prophylaxis. ACCESS: R IJ vascath , L IJ CVL, L radial art line. All existing lines were replaced at [facility]. FULL CODE OVERALL IMPRESSION: Critically ill with recurrent respiratory failure, likely recurrent aspiration, continue ventilatory support, nutrition, Abx. Overall impression: This gentleman is critically ill and nutritionally depleted. He has deteriorated clinical status requiring placement back on mechanical ventilation. Persistent leukocytosis is worrisome but he remains afebrile. I anticipate a prolonged postoperative course and continuing pulmonary complications. We will probably can end up needing to tap the left pleural effusion to rule out infection. Continue nutritional support with TPN. Add jejunostomy tube feeds per surgery but presently with pretty large amount of diarrheal stool persists. Critical care 43 minutes aside from procedures (6) Acute bilateral deep vein thrombosis (DVT) of upper extremities Qualifiers: Affected thrombotic vein of extremity: brachial Qualified Code(s): I82.623 - Acute embolism and thrombosis of deep veins of upper extremity, bilateral (15) Acute respiratory failure Qualifiers: Respiratory failure complication: hypoxia Qualified Code(s): J96.01 - Acute respiratory failure with hypoxia
--- NOTE | 2017-12-07 10:18 | P.PCN ---
Date of procedure: 12/07/17 Pre-op diagnosis: Large left pleural effusion Post-op diagnosis: same Procedure: Left pigtail chest tube placement, ultrasound-guided Details of procedure: Consent obtained from patient's mother. The patient was laid in right lateral decubitus position. The lateral chest wall was cleaned with ChloraPrep twice. Regional sterile drapes were applied. 1% lidocaine was used for local anesthesia and injected into the subcutaneous and deep muscle tissues at the site marked by ultrasound. A 0.25 cm skin incision was made with a scalpel blade. Insertion needle was placed angled superiorly and posteriorly and the insertion needle was entered into the pleural space superior to the rib and slightly cloudy blood tinged pleural fluid was obtained. Guidewire was placed in site was dilated. A size 10 Maori chest tube was inserted into the pleural cavity using Seldinger technique with initial output of approximately 550 mL of slightly cloudy blood tinged pleural fluid. 3.0 silk was used to to secure the chest tube along with StayFix fixation device. The chest tube was connected to a Pleur-evac drainage system via vinyl connecting tube. Initial 1+ air leak quickly resolved. Anesthesia: local Surgeon: Kaitlynn Bacon Estimated blood loss (mL): 1 Pathology: other (Pleural fluid studies) Condition: critical Disposition: ICU
--- NOTE | 2017-12-07 10:51 | XR ---
EXAM DATE: 12/07/2017 10:47 AM EDT AGE/SEX: 47 years / Male INDICATIONS: Post chest tube placement. CLINICAL DATA: This is the patient's subsequent encounter. Patient reports that signs and symptoms h ave been present for 1 week and indicates a pain score of Nonresponsive. MEDICAL/SURGICAL HISTORY: . Renal failure, acute. Cardiac arrest, aspiration pneumonia. . brigid rectomy, Dinh en Y COMPARISON: [facility], CHEST 1V SINGLE AP, 12/04/2017. . FINDINGS: ET tube, nasogastric tube, central venous catheter in good position. Minimal bibasilar parenchymal changes evident, improved in the interval. The heart and pulmonary vascularity are normal. CONCLUSION: Interval improvement. Electronically signed by: Dinesh Greer MD 12/07/2017 10:50 AM EDT
[2017-12-07 11:09] LABS: Total Protein,Pleural Fluid 2.2 gm/dL
[2017-12-07 12:21] LABS: RBC,Pleural Fluid 49500 /mm3 (0-0)
[2017-12-07 12:22] LABS: Lymphocytes,Pleural Fluid 3 %; Mesothelial,Pleural Fluid 12 %; Monocytes,Pleural Fluid 3 %; Neutrophils,Pleural Fluid 80 %
--- NOTE | 2017-12-07 12:23 | P.PNID ---
Subjective Remarks: Patient reintubated 12/04 for acute hypoxic respiratory failure. On the vent. Discussed with RN. Left chest tube placed. Afebrile. White blood cell count is still elevated. Sputum culture - no growth. Pleural fluid culture pending. This is a 46-year-old black male who initially was admitted to the hospital on 11/22/2017. The patient was found to have no pneumoperitoneum on 11/23/2017. He presented with severe abdominal pain. He was also noted to have ischemia of the proximal two-thirds of the stomach and there was a large gastric perforation and contamination of food particles into the peritoneum. The patient ended up being transferred to [facility] in [place] and he underwent subtotal gastrectomy and Dinh-en-Y esophageal jejunostomy and a feeding jejunostomy tube placement. He was put on antifungal medication for candidemia. The results of the cultures are not available to me at this time. The culture reportedly was from [facility] in [place]. He was transferred back to [facility] on 11/29/2017 from [facility]. The reason for this consultation is for candidemia. Antibiotics: Micafungin Zosyn Allergies/Adverse Reactions: Allergies No Known Allergies Allergy (Verified 11/22/17 02:38) Objective Vital Signs 12/06/17 12:30 12/06/17 12:45 12/06/17 13:00 Temperature Pulse Rate 92 H 105 H 105 H Respiratory Rate 53 H 50 H 48 H Pulse Oximetry 100 100 99 12/06/17 13:15 12/06/17 13:30 12/06/17 13:45 Temperature Pulse Rate 107 H 108 H 108 H Respiratory Rate 69 H 69 H 48 H Pulse Oximetry 99 99 99 12/06/17 14:00 12/06/17 14:15 12/06/17 14:25 Temperature Pulse Rate 108 H 108 H Respiratory Rate 54 H 58 H 18 Pulse Oximetry 99 99 99 12/06/17 14:30 12/06/17 14:45 12/06/17 15:00 Temperature Pulse Rate 107 H 108 H 107 H Respiratory Rate 61 H 60 H 72 H Pulse Oximetry 99 99 99 12/06/17 15:15 12/06/17 15:30 12/06/17 15:45 Temperature Pulse Rate 107 H 107 H 108 H Respiratory Rate 72 H 64 H 42 H Pulse Oximetry 99 99 99 12/06/17 16:00 12/06/17 16:15 12/06/17 16:30 Temperature 98.8 F Pulse Rate 115 H 116 H 111 H Respiratory Rate 57 H 31 H 64 H Pulse Oximetry 100 99 99 12/06/17 16:45 12/06/17 16:59 12/06/17 17:00 Temperature Pulse Rate 109 H 106 H 107 H Respiratory Rate 44 H 18 55 H Pulse Oximetry 99 100 99 12/06/17 17:15 12/06/17 17:30 12/06/17 17:45 Temperature Pulse Rate 105 H 105 H 107 H Respiratory Rate 104 H 102 H 105 H Pulse Oximetry 99 99 99 12/06/17 18:00 12/06/17 18:15 12/06/17 18:30 Temperature Pulse Rate 109 H 115 H 117 H Respiratory Rate 63 H 52 H 52 H Pulse Oximetry 99 98 98 12/06/17 18:45 12/06/17 19:00 12/06/17 19:15 Temperature Pulse Rate 117 H 117 H 116 H Respiratory Rate 60 H 47 H 62 H Pulse Oximetry 98 98 98 12/06/17 19:30 12/06/17 19:45 12/06/17 20:00 Temperature 99.6 F Pulse Rate 116 H 116 H 118 H Respiratory Rate 53 H 56 H 58 H Pulse Oximetry 98 98 97 12/06/17 20:15 12/06/17 20:30 12/06/17 20:45 Temperature Pulse Rate 117 H 118 H 117 H Respiratory Rate 47 H 52 H 48 H Pulse Oximetry 95 96 96 12/06/17 21:00 12/06/17 21:01 12/06/17 21:15 Temperature Pulse Rate 117 H 116 H 117 H Respiratory Rate 46 H 19 49 H Pulse Oximetry 96 96 96 12/06/17 21:30 12/06/17 21:45 12/06/17 22:00 Temperature Pulse Rate 116 H 117 H 117 H Respiratory Rate 46 H 42 H 42 H Pulse Oximetry 97 97 97 12/06/17 22:15 12/06/17 22:30 12/06/17 22:45 Temperature Pulse Rate 116 H 115 H 116 H Respiratory Rate 47 H 39 H 44 H Pulse Oximetry 97 97 98 12/06/17 23:00 12/06/17 23:15 12/06/17 23:30 Temperature Pulse Rate 115 H 114 H 114 H Respiratory Rate 75 H 46 H 97 H Pulse Oximetry 98 98 98 12/06/17 23:45 12/06/17 23:47 12/07/17 00:00 Temperature 99.8 F H Pulse Rate 114 H 113 H 116 H Respiratory Rate 77 H 19 43 H Pulse Oximetry 98 98 96 12/07/17 00:15 12/07/17 00:30 12/07/17 00:45 Temperature Pulse Rate 117 H 116 H 116 H Respiratory Rate 43 H 38 H 36 H Pulse Oximetry 96 97 96 12/07/17 01:00 12/07/17 01:15 12/07/17 01:30 Temperature Pulse Rate 114 H 113 H 112 H Respiratory Rate 49 H 33 H 38 H Pulse Oximetry 97 97 97 12/07/17 01:45 12/07/17 02:00 12/07/17 02:15 Temperature Pulse Rate 121 H 119 H 119 H Respiratory Rate 38 H 52 H 97 H Pulse Oximetry 96 96 97 12/07/17 02:30 12/07/17 02:45 12/07/17 03:00 Temperature Pulse Rate 116 H 112 H 110 H Respiratory Rate 19 47 H 47 H Pulse Oximetry 96 96 97 12/07/17 03:15 12/07/17 03:30 12/07/17 03:45 Temperature Pulse Rate 109 H 108 H 108 H Respiratory Rate 43 H 65 H 54 H Pulse Oximetry 97 97 97 12/07/17 04:00 12/07/17 04:15 12/07/17 04:44 Temperature 99.2 F Pulse Rate 107 H 106 H 112 H Respiratory Rate 72 H 85 H 20 Pulse Oximetry 97 97 97 12/07/17 06:00 12/07/17 07:38 12/07/17 11:57 Temperature Pulse Rate 110 H 112 H 107 H Respiratory Rate 20 21 Pulse Oximetry 97 Intake & Output 12/06/17 12/07/17 12/07/17 18:59 06:59 18:59 Intake Total 2772.0557 / 2772.0557 650 / 650 100 / 100 Output Total 1530 / 1530 870 / 870 Balance 1242.0557 / 1242.0557 -220 / -220 100 / 100 Weight 82 kg Intake: IV 2417.0557 / 2417.0557 650 / 650 100 / 100 Versed Inj 50 mg In 50 ml @ 2 100 / 100 100 / 100 50 / 50 MG/HR 2 mls/hr IV.CONT TITRATE PRN Rx#:[id number] Diprivan 1000 mg/100 ml Inj 1, 100 / 100 000 mg In 100 ml @ 5 MCG/KG/MIN 2.859 mls/hr IV.CONT TITRATE PRN Rx#:[id number] Intralipid 20% Inj 250 ML @ 31. 0 / 0 250 / 250 25 mls/hr IV.SIG Q24H COLE Rx#: [id number] Mycamine Inj 100 MG In NS Inj 100 / 100 100 ML @ 100 mls/hr IV.SIG Q24H COLE Rx#:[id number] Zosyn 2.25 GM Premix 50 ML @ 50 / 50 50 / 50 50 / 50 100 mls/hr IV.SIG Q8H COLE Rx#: [id number] Sodium Chloride 23.4% Inj 5.5 1032.2588 / 1032.2588 MEQ Sodium Acetate Inj 29.5 MEQ KCl Inj 20 MEQ Calcium Chloride Inj 4.5 MEQ MVI-12 Inj 10 ML Folvite Inj 1 MG In Clinimix 5%/D20W Inj 1,000 ML @ 40.275 mls/hr IV.SIG Q24H COLE Rx#:[id number] fentaNYL 10 mcg/mL Premix Drip 250 / 250 2,500 mcg In 250 ml @ 50 MCG/HR 5 mls/hr IV.SIG TITRATE PRN Rx #:[id number] Tube Feeding 235 / 235 Tube Irrigant 60 / 60 Water Bolus Amount 60 / 60 Output: Stool 275 / 275 100 / 100 Gastric Drainage 75 / 75 Right Nare Nasogastric Tube 75 / 75 Wound Drainage 1180 / 1180 770 / 770 # 1 Right Abdomen 70 / 70 20 / 20 # 2 Right Abdomen 1110 / 1110 750 / 750 Other: Date of Last Bowel Movement 12/06/17 12/07/17 12/07/17 10:10 Fluid - Pleural fluid Fungal Smear - Pending 12/07/17 10:10 Fluid - Pleural fluid Fungal Culture - Pending 12/07/17 10:10 Fluid - Pleural fluid Acid Fast Bacilli Smear - Pending 12/07/17 10:10 Fluid - Pleural fluid Mycobacterial Culture - Pending 12/07/17 10:10 Fluid - Pleural fluid Gram Stain - Pending 12/07/17 10:10 Fluid - Pleural fluid Body Fluid Culture - Pending 12/04/17 00:15 Sputum - Endotracheal Gram Stain - Final 12/04/17 00:15 Sputum - Endotracheal Sputum Culture - Final Light growth normal respiratory mega 11/30/17 13:33 Blood - Peripheral Aerobic Blood Culture - Final No growth in 5 days 11/30/17 13:33 Blood - Peripheral Anaerobic Blood Culture - Final No growth in 5 days 11/30/17 03:19 Blood - Peripheral Aerobic Blood Culture - Final No growth in 5 days 11/30/17 03:19 Blood - Peripheral Anaerobic Blood Culture - Final No growth in 5 days Lab - Hematology Results 12/06/17 12/07/17 04:42 04:50 WBC 25.9 H 24.2 H RBC 2.44 L 2.41 L Hgb 7.5 L 7.2 L Hct 21.7 L 21.6 L MCV 89.3 89.9 MCH 30.8 30.1 MCHC 34.5 33.4 RDW 15.7 15.8 Plt Count 382 D 497 H D MPV 10.4 9.9 Prelim Diff (Auto) Slide review pending Slide review pending Neut % (Auto) 81.7 H 83.9 H Lymph % (Auto) 6.0 L 4.6 L [place] % (Auto) 11.1 H 10.0 H Eos % (Auto) 1.1 1.1 Baso % (Auto) 0.1 0.4 Neut # (Auto) 21.2 H 20.3 H Lymph # (Auto) 1.6 1.1 [place] # (Auto) 2.9 H 2.4 H Eos # (Auto) 0.3 0.3 Baso # (Auto) 0.0 0.1 WBC Differential Manual diff final Manual diff final Seg Neuts % (Manual) 81 H 82 H Band Neuts % (Manual) 1 2 Lymphocytes % (Manual) 7 L 6 L Monocytes % (Manual) 4 6 Eosinophils % (Manual) 3 Metamyelocytes % (Man) 3 H 1 Myelocytes % (Man) 4 H Abs Neuts (Manual) 23.1 H 20.6 H Differential Comment . . Platelet Estimate Normal High H Platelet Morphology Enlarged H Enlarged H Basophilic Stippling Faint H Lab - Chemistry Results 12/05/17 12/05/17 12/06/17 17:00 20:09 00:05 Sodium Potassium Chloride Carbon Dioxide Anion Gap BUN Creatinine Estimated GFR POC Glucose 128 H 132 H 125 H Random Glucose Calcium Phosphorus Magnesium Total Bilirubin AST ALT Alkaline Phosphatase Total Protein Albumin 12/06/17 12/06/17 12/06/17 04:37 04:42 08:19 Sodium 139 Potassium 4.6 Chloride 100 Carbon Dioxide 25.6 Anion Gap 13 BUN 80 H Creatinine 7.29 H Estimated GFR 10 L POC Glucose 126 H 135 H Random Glucose 124 H Calcium 8.1 L Phosphorus 5.8 H Magnesium 2.6 H Total Bilirubin 2.7 H AST 163 H ALT 213 H Alkaline Phosphatase 285 H Total Protein 6.1 L Albumin 1.6 L 12/06/17 12/06/17 12/06/17 11:26 11:55 17:05 Sodium Potassium Chloride Carbon Dioxide Anion Gap BUN Creatinine Estimated GFR POC Glucose 280 H 150 H 123 H Random Glucose Calcium Phosphorus Magnesium Total Bilirubin AST ALT Alkaline Phosphatase Total Protein Albumin 12/06/17 12/07/17 12/07/17 21:53 00:22 04:47 Sodium Potassium Chloride Carbon Dioxide Anion Gap BUN Creatinine Estimated GFR POC Glucose 137 H 144 H 147 H Random Glucose Calcium Phosphorus Magnesium Total Bilirubin AST ALT Alkaline Phosphatase Total Protein Albumin 12/07/17 12/07/17 04:50 08:00 Sodium 137 Potassium 5.1 Chloride 100 Carbon Dioxide 22.6 Anion Gap 14 BUN 102 H Creatinine 8.80 H Estimated GFR 8 L POC Glucose 149 H Random Glucose 128 H Calcium 8.0 L Phosphorus 7.3 H D Magnesium 2.7 H Total Bilirubin 2.5 H AST 139 H ALT 192 H Alkaline Phosphatase 301 H Total Protein 6.1 L Albumin 1.6 L Imaging: ITS Impressions Head MRI 12/03/17 00:00 CONCLUSION: 1. Minimal nonspecific periventricular white matter changes. 2. No restricted diffusion to suggest an acute ischemic event. 3. No evidence for significant ischemic changes. Abdomen/Pelvis CT 12/04/17 00:02 CONCLUSION: 1. Interim midline laparotomy and gastrectomy with apparent Dinh-en-Y. 2. Bowel gas pattern consistent with obstruction of the duodenum and proximal jejunum. I don't see a mass. There does seem to be some jejunal wall thickening around the jejunostomy tube. 3. Wall thickening and mucosal enhancement of the colon consistent with moderate severity colitis. C. difficile colitis would be in the differential. 4. Solid organs are within normal limits. 5. Small ascites. Also diffuse body wall edema/anasarca. No perceptible hemorrhage. Chest CT 12/04/17 00:06 CONCLUSION: 1. Left greater than right pleural effusions and basilar atelectasis. 2. No hemorrhage or hematoma demonstrated. 3. Distended and fluid-filled esophagus. No wall thickening. Patient is status post gastrectomy. Nasogastric tube is at the GE junction. 4. Body wall edema/anasarca. Chest X-Ray 12/07/17 00:00 CONCLUSION: Interval improvement. Physical Exam: PHYSICAL EXAMINATION: GENERAL: Patient on the vent. Sedated. HEENT: No icterus. NECK: Supple without adenopathy or swelling. LUNGS: Decreased breath sounds. Left chest tube has serous drainage. HEART: Regular S1, S2. No audible murmur. ABDOMEN: ZAINAB tube exits the right abdomen and has serosanguineous drainage. EXTREMITIES: No clubbing or cyanosis. Swelling of the upper extremities. SKIN: No diffuse rash. NEUROLOGIC: unable to assess, intubated. PSYCHIATRIC: Unable to assess. Assessment and Plan - Plan IMPRESSION: 1. Candidemia following gastric perforation and gastric ischemia. Blood culture at [facility] in [place] on 11/26 had Starr glabrata. Repeat blood culture is negative. 2. Status post abdominal surgery. 3. Acute respiratory failure. left pleural effusion. 4. Aspiration. 5. Acute kidney disease. 5. Recent cardiac arrest. 6. Leukocytosis. RECOMMENDATIONS: 1. Continue micafungin for candidemia. 2. Continue piperacillin/tazobactam. 3. Monitor sputum culture. 4. Monitor white blood cell count. 5. Monitor the temperature. Discussed with mom at bedside.
[2017-12-07] MEDS: fentaNYL 10 mcg/mL Premix Drip 2,500 MCG/250 ML BAG IV.SIG PRN (13:17)
--- NOTE | 2017-12-07 13:29 | P.PNGS ---
Subjective Interval history: DAILY PROGRESS NOTE FOR SURGICAL ATTENDING, DR. MARGAUX MAGANA Intubated/Sedated Receiving hemodialysis currently Physical Exam Vital signs: Vital Signs 12/06/17 13:30 12/06/17 13:45 12/06/17 14:00 Temperature Pulse Rate 108 H 108 H 108 H Respiratory Rate 69 H 48 H 54 H Pulse Oximetry 99 99 99 12/06/17 14:15 12/06/17 14:25 12/06/17 14:30 Temperature Pulse Rate 108 H 107 H Respiratory Rate 58 H 18 61 H Pulse Oximetry 99 99 99 12/06/17 14:45 12/06/17 15:00 12/06/17 15:15 Temperature Pulse Rate 108 H 107 H 107 H Respiratory Rate 60 H 72 H 72 H Pulse Oximetry 99 99 99 12/06/17 15:30 12/06/17 15:45 12/06/17 16:00 Temperature 98.8 F Pulse Rate 107 H 108 H 115 H Respiratory Rate 64 H 42 H 57 H Pulse Oximetry 99 99 100 12/06/17 16:15 12/06/17 16:30 12/06/17 16:45 Temperature Pulse Rate 116 H 111 H 109 H Respiratory Rate 31 H 64 H 44 H Pulse Oximetry 99 99 99 12/06/17 16:59 12/06/17 17:00 12/06/17 17:15 Temperature Pulse Rate 106 H 107 H 105 H Respiratory Rate 18 55 H 104 H Pulse Oximetry 100 99 99 12/06/17 17:30 12/06/17 17:45 12/06/17 18:00 Temperature Pulse Rate 105 H 107 H 109 H Respiratory Rate 102 H 105 H 63 H Pulse Oximetry 99 99 99 12/06/17 18:15 12/06/17 18:30 12/06/17 18:45 Temperature Pulse Rate 115 H 117 H 117 H Respiratory Rate 52 H 52 H 60 H Pulse Oximetry 98 98 98 12/06/17 19:00 12/06/17 19:15 12/06/17 19:30 Temperature Pulse Rate 117 H 116 H 116 H Respiratory Rate 47 H 62 H 53 H Pulse Oximetry 98 98 98 12/06/17 19:45 12/06/17 20:00 12/06/17 20:15 Temperature 99.6 F Pulse Rate 116 H 118 H 117 H Respiratory Rate 56 H 58 H 47 H Pulse Oximetry 98 97 95 12/06/17 20:30 12/06/17 20:45 12/06/17 21:00 Temperature Pulse Rate 118 H 117 H 117 H Respiratory Rate 52 H 48 H 46 H Pulse Oximetry 96 96 96 12/06/17 21:01 12/06/17 21:15 12/06/17 21:30 Temperature Pulse Rate 116 H 117 H 116 H Respiratory Rate 19 49 H 46 H Pulse Oximetry 96 96 97 12/06/17 21:45 12/06/17 22:00 12/06/17 22:15 Temperature Pulse Rate 117 H 117 H 116 H Respiratory Rate 42 H 42 H 47 H Pulse Oximetry 97 97 97 12/06/17 22:30 12/06/17 22:45 12/06/17 23:00 Temperature Pulse Rate 115 H 116 H 115 H Respiratory Rate 39 H 44 H 75 H Pulse Oximetry 97 98 98 12/06/17 23:15 12/06/17 23:30 12/06/17 23:45 Temperature Pulse Rate 114 H 114 H 114 H Respiratory Rate 46 H 97 H 77 H Pulse Oximetry 98 98 98 12/06/17 23:47 12/07/17 00:00 12/07/17 00:15 Temperature 99.8 F H Pulse Rate 113 H 116 H 117 H Respiratory Rate 19 43 H 43 H Pulse Oximetry 98 96 96 12/07/17 00:30 12/07/17 00:45 12/07/17 01:00 Temperature Pulse Rate 116 H 116 H 114 H Respiratory Rate 38 H 36 H 49 H Pulse Oximetry 97 96 97 12/07/17 01:15 12/07/17 01:30 12/07/17 01:45 Temperature Pulse Rate 113 H 112 H 121 H Respiratory Rate 33 H 38 H 38 H Pulse Oximetry 97 97 96 12/07/17 02:00 12/07/17 02:15 12/07/17 02:30 Temperature Pulse Rate 119 H 119 H 116 H Respiratory Rate 52 H 97 H 19 Pulse Oximetry 96 97 96 12/07/17 02:45 12/07/17 03:00 12/07/17 03:15 Temperature Pulse Rate 112 H 110 H 109 H Respiratory Rate 47 H 47 H 43 H Pulse Oximetry 96 97 97 12/07/17 03:30 12/07/17 03:45 12/07/17 04:00 Temperature 99.2 F Pulse Rate 108 H 108 H 107 H Respiratory Rate 65 H 54 H 72 H Pulse Oximetry 97 97 97 12/07/17 04:15 12/07/17 04:44 12/07/17 06:00 Temperature Pulse Rate 106 H 112 H 110 H Respiratory Rate 85 H 20 Pulse Oximetry 97 97 12/07/17 07:38 12/07/17 11:57 Temperature Pulse Rate 112 H 107 H Respiratory Rate 20 21 Pulse Oximetry 97 Intake & Output 12/06/17 12/07/17 12/07/17 18:59 06:59 18:59 Intake Total 2772.0557 / 2772.0557 650 / 650 400 / 400 Output Total 1530 / 1530 870 / 870 Balance 1242.0557 / 1242.0557 -220 / -220 400 / 400 Weight 82 kg Intake: IV 2417.0557 / 2417.0557 650 / 650 400 / 400 Versed Inj 50 mg In 50 ml @ 2 100 / 100 100 / 100 100 / 100 MG/HR 2 mls/hr IV.CONT TITRATE PRN Rx#:[id number] Diprivan 1000 mg/100 ml Inj 1, 100 / 100 000 mg In 100 ml @ 5 MCG/KG/MIN 2.859 mls/hr IV.CONT TITRATE PRN Rx#:[id number] Intralipid 20% Inj 250 ML @ 31. 0 / 0 250 / 250 25 mls/hr IV.SIG Q24H [facility] Rx#: [id number] Mycamine Inj 100 MG In NS Inj 100 / 100 100 ML @ 100 mls/hr IV.SIG Q24H [facility] Rx#:[id number] Zosyn 2.25 GM Premix 50 ML @ 50 / 50 50 / 50 50 / 50 100 mls/hr IV.SIG Q8H [facility] Rx#: [id number] Sodium Chloride 23.4% Inj 5.5 1032.2588 / 1032.2588 MEQ Sodium Acetate Inj 29.5 MEQ KCl Inj 20 MEQ Calcium Chloride Inj 4.5 MEQ MVI-12 Inj 10 ML Folvite Inj 1 MG In Clinimix 5%/D20W Inj 1,000 ML @ 40.275 mls/hr IV.SIG Q24H [facility] Rx#:[id number] fentaNYL 10 mcg/mL Premix Drip 250 / 250 250 / 250 2,500 mcg In 250 ml @ 50 MCG/HR 5 mls/hr IV.SIG TITRATE PRN Rx #:[id number] Tube Feeding 235 / 235 Tube Irrigant 60 / 60 Water Bolus Amount 60 / 60 Output: Stool 275 / 275 100 / 100 Gastric Drainage 75 / 75 Right Nare Nasogastric Tube 75 / 75 Wound Drainage 1180 / 1180 770 / 770 # 1 Right Abdomen 70 / 70 20 / 20 # 2 Right Abdomen 1110 / 1110 750 / 750 Other: Date of Last Bowel Movement 12/06/17 12/07/17 Narrative: Sedated Orally intubated Abd: soft; dressings intact; JP1 with serous fluid; JP2 with serosanguineous fluid J tube with TF BUE edema - Urinary Catheter Management Indwelling Temp Sensing Catheter Cath placed during this visit: no Results - Labs 12/09/17 04:20 12/09/17 04:20 Laboratory Results - last 24 hr 12/06/17 12/06/17 12/07/17 17:05 21:53 00:22 WBC RBC Hgb Hct MCV MCH MCHC RDW Plt Count MPV Prelim Diff (Auto) Neut % (Auto) Lymph % (Auto) [place] % (Auto) Eos % (Auto) Baso % (Auto) Neut # (Auto) Lymph # (Auto) [place] # (Auto) Eos # (Auto) Baso # (Auto) WBC Differential Seg Neuts % (Manual) Band Neuts % (Manual) Lymphocytes % (Manual) Monocytes % (Manual) Eosinophils % (Manual) Metamyelocytes % (Man) Abs Neuts (Manual) Differential Comment Platelet Estimate Platelet Morphology Sodium Potassium Chloride Carbon Dioxide Anion Gap BUN Creatinine Estimated GFR POC Glucose 123 H 137 H 144 H Random Glucose Calcium Phosphorus Magnesium Total Bilirubin AST ALT Alkaline Phosphatase Total Protein Albumin Pleural pH Pleural RBC Pleural Nuc Cells Pleural Neutrophils Pleural Lymphocytes Pleural Monocytes Pleural Histocytes Pleural Mesothelial Pleural Fluid Comment Pleural Total Protein Pleural LDH Pleural Glucose Pleural Amylase MTS Gel Crossmatch 12/07/17 12/07/17 12/07/17 04:47 04:50 04:50 WBC 24.2 H RBC 2.41 L Hgb 7.2 L Hct 21.6 L MCV 89.9 MCH 30.1 MCHC 33.4 RDW 15.8 Plt Count 497 H D MPV 9.9 Prelim Diff (Auto) Slide review pending Neut % (Auto) 83.9 H Lymph % (Auto) 4.6 L [place] % (Auto) 10.0 H Eos % (Auto) 1.1 Baso % (Auto) 0.4 Neut # (Auto) 20.3 H Lymph # (Auto) 1.1 [place] # (Auto) 2.4 H Eos # (Auto) 0.3 Baso # (Auto) 0.1 WBC Differential Manual diff final Seg Neuts % (Manual) 82 H Band Neuts % (Manual) 2 Lymphocytes % (Manual) 6 L Monocytes % (Manual) 6 Eosinophils % (Manual) 3 Metamyelocytes % (Man) 1 Abs Neuts (Manual) 20.6 H Differential Comment . Platelet Estimate High H Platelet Morphology Enlarged H Sodium 137 Potassium 5.1 Chloride 100 Carbon Dioxide 22.6 Anion Gap 14 BUN 102 H Creatinine 8.80 H Estimated GFR 8 L POC Glucose 147 H Random Glucose 128 H Calcium 8.0 L Phosphorus 7.3 H D Magnesium 2.7 H Total Bilirubin 2.5 H AST 139 H ALT 192 H Alkaline Phosphatase 301 H Total Protein 6.1 L Albumin 1.6 L Pleural pH Pleural RBC Pleural Nuc Cells Pleural Neutrophils Pleural Lymphocytes Pleural Monocytes Pleural Histocytes Pleural Mesothelial Pleural Fluid Comment Pleural Total Protein Pleural LDH Pleural Glucose Pleural Amylase MTS Gel Crossmatch 12/07/17 12/07/17 12/07/17 08:00 10:10 10:10 WBC RBC Hgb Hct MCV MCH MCHC RDW Plt Count MPV Prelim Diff (Auto) Neut % (Auto) Lymph % (Auto) [place] % (Auto) Eos % (Auto) Baso % (Auto) Neut # (Auto) Lymph # (Auto) [place] # (Auto) Eos # (Auto) Baso # (Auto) WBC Differential Seg Neuts % (Manual) Band Neuts % (Manual) Lymphocytes % (Manual) Monocytes % (Manual) Eosinophils % (Manual) Metamyelocytes % (Man) Abs Neuts (Manual) Differential Comment Platelet Estimate Platelet Morphology Sodium Potassium Chloride Carbon Dioxide Anion Gap BUN Creatinine Estimated GFR POC Glucose 149 H Random Glucose Calcium Phosphorus Magnesium Total Bilirubin AST ALT Alkaline Phosphatase Total Protein Albumin Pleural pH 8.5 Pleural RBC 74586 H Pleural Nuc Cells 3500 H Pleural Neutrophils 80 Pleural Lymphocytes 3 Pleural Monocytes 3 Pleural Histocytes 2 Pleural Mesothelial 12 Pleural Fluid Comment Pleural Total Protein 2.2 Pleural LDH 334 Pleural Glucose 128 Pleural Amylase 58 MTS Gel Crossmatch 12/07/17 12/07/17 12:24 12:47 WBC RBC Hgb Hct MCV MCH MCHC RDW Plt Count MPV Prelim Diff (Auto) Neut % (Auto) Lymph % (Auto) [place] % (Auto) Eos % (Auto) Baso % (Auto) Neut # (Auto) Lymph # (Auto) [place] # (Auto) Eos # (Auto) Baso # (Auto) WBC Differential Seg Neuts % (Manual) Band Neuts % (Manual) Lymphocytes % (Manual) Monocytes % (Manual) Eosinophils % (Manual) Metamyelocytes % (Man) Abs Neuts (Manual) Differential Comment Platelet Estimate Platelet Morphology Sodium Potassium Chloride Carbon Dioxide Anion Gap BUN Creatinine Estimated GFR POC Glucose 149 H Random Glucose Calcium Phosphorus Magnesium Total Bilirubin AST ALT Alkaline Phosphatase Total Protein Albumin Pleural pH Pleural RBC Pleural Nuc Cells Pleural Neutrophils Pleural Lymphocytes Pleural Monocytes Pleural Histocytes Pleural Mesothelial Pleural Fluid Comment Pleural Total Protein Pleural LDH Pleural Glucose Pleural Amylase MTS Gel Crossmatch See Detail - Imaging Imaging: ITS Impressions Head MRI 12/03/17 00:00 CONCLUSION: 1. Minimal nonspecific periventricular white matter changes. 2. No restricted diffusion to suggest an acute ischemic event. 3. No evidence for significant ischemic changes. Abdomen/Pelvis CT 12/04/17 00:02 CONCLUSION: 1. Interim midline laparotomy and gastrectomy with apparent Dinh-en-Y. 2. Bowel gas pattern consistent with obstruction of the duodenum and proximal jejunum. I don't see a mass. There does seem to be some jejunal wall thickening around the jejunostomy tube. 3. Wall thickening and mucosal enhancement of the colon consistent with moderate severity colitis. C. difficile colitis would be in the differential. 4. Solid organs are within normal limits. 5. Small ascites. Also diffuse body wall edema/anasarca. No perceptible hemorrhage. Chest CT 12/04/17 00:06 CONCLUSION: 1. Left greater than right pleural effusions and basilar atelectasis. 2. No hemorrhage or hematoma demonstrated. 3. Distended and fluid-filled esophagus. No wall thickening. Patient is status post gastrectomy. Nasogastric tube is at the GE junction. 4. Body wall edema/anasarca. Chest X-Ray 12/07/17 00:00 CONCLUSION: Interval improvement. Assessment and Plan - Assessment (1) Gastric perforation Code(s): K25.5 - Chronic or unspecified gastric ulcer with perforation Status : Acute Plan: 47yo male s/p Exlap and gastrectomy for gastric perforation, s/p esophagojejunostomy at [facility] -Intubated---vent per CCM -HD today -Continue wet to dry daily to midline incision BID and PRN as well as Silvadene to lateral wounds on RIGHT side -Continue abdominal binder -Continue NG to LIWS -TF via J tube ---increase to 30 cc/hr -Continue routine ZAINAB care - Attending Attestation NOTE FOR SURGICAL ATTENDING, DR. MARGAUX D. CHINO I agree with above assessment and plan. The exam, history, and the medical decision-making described in the above note were completed with the assistance of the mid-level provider. I reviewed and agree with the findings presented. I attest that I had a [id number] encounter with the patient on the same day, and personally performed and documented my assessment and findings in the medical record. The following services were provided during this hospital visit: Chart data review, vital sign assessments/reviewing monitor data Review of consultations notes if present. Medication orders/review and/or management Ordering and/or reviewing lab tests Ordering and/or interpreting/reviewing x-rays and/or diagnostic studies Care of the patient and discussion of the patient with the care team Documentation time To help prompt me to consider important information that might be impacting today's encounter and assessment, Information from prior notes written by myself or my colleagues may have been "brought forward/copy and pasted" into today's note.
[2017-12-07] MEDS ORDERED: Influenza (Quadrivalent) Vaccine 0.5 ML Syringe IM ONE (13:30)
--- NOTE | 2017-12-07 15:21 | P.PNNP ---
Subjective Interval history: Patient not responsive, patient is on ventilator and sedated. Patient on Fentanyl and Versed. Anuric. Serosanguinous drainage from J-P drains. <Jocelyn Crews - Last Filed: 12/07/17 16:00> Physical Exam Vital signs: Vital Signs 12/06/17 15:15 12/06/17 15:30 12/06/17 15:45 Temperature Pulse Rate 107 H 107 H 108 H Respiratory Rate 72 H 64 H 42 H Pulse Oximetry 99 99 99 12/06/17 16:00 12/06/17 16:15 12/06/17 16:30 Temperature 98.8 F Pulse Rate 115 H 116 H 111 H Respiratory Rate 57 H 31 H 64 H Pulse Oximetry 100 99 99 12/06/17 16:45 12/06/17 16:59 12/06/17 17:00 Temperature Pulse Rate 109 H 106 H 107 H Respiratory Rate 44 H 18 55 H Pulse Oximetry 99 100 99 12/06/17 17:15 12/06/17 17:30 12/06/17 17:45 Temperature Pulse Rate 105 H 105 H 107 H Respiratory Rate 104 H 102 H 105 H Pulse Oximetry 99 99 99 12/06/17 18:00 12/06/17 18:15 12/06/17 18:30 Temperature Pulse Rate 109 H 115 H 117 H Respiratory Rate 63 H 52 H 52 H Pulse Oximetry 99 98 98 12/06/17 18:45 12/06/17 19:00 12/06/17 19:15 Temperature Pulse Rate 117 H 117 H 116 H Respiratory Rate 60 H 47 H 62 H Pulse Oximetry 98 98 98 12/06/17 19:30 12/06/17 19:45 12/06/17 20:00 Temperature 99.6 F Pulse Rate 116 H 116 H 118 H Respiratory Rate 53 H 56 H 58 H Pulse Oximetry 98 98 97 12/06/17 20:15 12/06/17 20:30 12/06/17 20:45 Temperature Pulse Rate 117 H 118 H 117 H Respiratory Rate 47 H 52 H 48 H Pulse Oximetry 95 96 96 12/06/17 21:00 12/06/17 21:01 12/06/17 21:15 Temperature Pulse Rate 117 H 116 H 117 H Respiratory Rate 46 H 19 49 H Pulse Oximetry 96 96 96 12/06/17 21:30 12/06/17 21:45 12/06/17 22:00 Temperature Pulse Rate 116 H 117 H 117 H Respiratory Rate 46 H 42 H 42 H Pulse Oximetry 97 97 97 12/06/17 22:15 12/06/17 22:30 12/06/17 22:45 Temperature Pulse Rate 116 H 115 H 116 H Respiratory Rate 47 H 39 H 44 H Pulse Oximetry 97 97 98 12/06/17 23:00 12/06/17 23:15 12/06/17 23:30 Temperature Pulse Rate 115 H 114 H 114 H Respiratory Rate 75 H 46 H 97 H Pulse Oximetry 98 98 98 12/06/17 23:45 12/06/17 23:47 12/07/17 00:00 Temperature 99.8 F H Pulse Rate 114 H 113 H 116 H Respiratory Rate 77 H 19 43 H Pulse Oximetry 98 98 96 12/07/17 00:15 12/07/17 00:30 12/07/17 00:45 Temperature Pulse Rate 117 H 116 H 116 H Respiratory Rate 43 H 38 H 36 H Pulse Oximetry 96 97 96 12/07/17 01:00 12/07/17 01:15 12/07/17 01:30 Temperature Pulse Rate 114 H 113 H 112 H Respiratory Rate 49 H 33 H 38 H Pulse Oximetry 97 97 97 12/07/17 01:45 12/07/17 02:00 12/07/17 02:15 Temperature Pulse Rate 121 H 119 H 119 H Respiratory Rate 38 H 52 H 97 H Pulse Oximetry 96 96 97 12/07/17 02:30 12/07/17 02:45 12/07/17 03:00 Temperature Pulse Rate 116 H 112 H 110 H Respiratory Rate 19 47 H 47 H Pulse Oximetry 96 96 97 12/07/17 03:15 12/07/17 03:30 12/07/17 03:45 Temperature Pulse Rate 109 H 108 H 108 H Respiratory Rate 43 H 65 H 54 H Pulse Oximetry 97 97 97 12/07/17 04:00 12/07/17 04:15 12/07/17 04:44 Temperature 99.2 F Pulse Rate 107 H 106 H 112 H Respiratory Rate 72 H 85 H 20 Pulse Oximetry 97 97 97 12/07/17 06:00 12/07/17 07:38 12/07/17 11:57 Temperature Pulse Rate 110 H 112 H 107 H Respiratory Rate 20 21 Pulse Oximetry 97 12/07/17 14:37 Temperature 98.9 F Pulse Rate 118 H Respiratory Rate 18 Pulse Oximetry 96 Intake & Output 12/06/17 12/07/17 12/07/17 18:59 06:59 18:59 Intake Total 2772.0557 / 2772.0557 650 / 650 400 / 400 Output Total 1530 / 1530 870 / 870 Balance 1242.0557 / 1242.0557 -220 / -220 400 / 400 Weight 82 kg Intake: IV 2417.0557 / 2417.0557 650 / 650 400 / 400 Versed Inj 50 mg In 50 ml @ 2 100 / 100 100 / 100 100 / 100 MG/HR 2 mls/hr IV.CONT TITRATE PRN Rx#:[id number] Diprivan 1000 mg/100 ml Inj 1, 100 / 100 000 mg In 100 ml @ 5 MCG/KG/MIN 2.859 mls/hr IV.CONT TITRATE PRN Rx#:[id number] Intralipid 20% Inj 250 ML @ 31. 0 / 0 250 / 250 25 mls/hr IV.SIG Q24H [facility] Rx#: [id number] Mycamine Inj 100 MG In NS Inj 100 / 100 100 ML @ 100 mls/hr IV.SIG Q24H [facility] Rx#:[id number] Zosyn 2.25 GM Premix 50 ML @ 50 / 50 50 / 50 50 / 50 100 mls/hr IV.SIG Q8H [facility] Rx#: [id number] Sodium Chloride 23.4% Inj 5.5 1032.2588 / 1032.2588 MEQ Sodium Acetate Inj 29.5 MEQ KCl Inj 20 MEQ Calcium Chloride Inj 4.5 MEQ MVI-12 Inj 10 ML Folvite Inj 1 MG In Clinimix 5%/D20W Inj 1,000 ML @ 40.275 mls/hr IV.SIG Q24H [facility] Rx#:[id number] fentaNYL 10 mcg/mL Premix Drip 250 / 250 250 / 250 2,500 mcg In 250 ml @ 50 MCG/HR 5 mls/hr IV.SIG TITRATE PRN Rx #:[id number] Tube Feeding 235 / 235 Tube Irrigant 60 / 60 Water Bolus Amount 60 / 60 Intake (Blood Product) Amt 0 / 0 Rbc As-3 Leukoreduced Unit 0 / 0 [id number] Output: Stool 275 / 275 100 / 100 Gastric Drainage 75 / 75 Right Nare Nasogastric Tube 75 / 75 Wound Drainage 1180 / 1180 770 / 770 # 1 Right Abdomen 70 / 70 20 / 20 # 2 Right Abdomen 1110 / 1110 750 / 750 Other: Date of Last Bowel Movement 12/06/17 12/07/17 - Constitutional no acute distress - Routine HEENT Exam Head: Present: normocephalic, atraumatic Eye: Present: EOMI ENT: Present: mucous membranes moist - Routine Neck Exam Present: trachea midline. Absent: JVD - Routine Respiratory Exam Present: patient mechanically ventilated - Routine Cardiovascular Exam Present: RRR, S1, S2 - Routine Abdominal Exam Comments: Patient had abdominal binder in place - Routine Extremities Exam Present: edema - Routine Psychiatric Exam Present: unable to assess - Urinary Catheter Management Indwelling Temp Sensing Catheter Cath placed during this visit: no <MarsJocelyn - Last Filed: 12/07/17 16:00> Vital signs: Vital Signs 12/06/17 18:00 12/06/17 18:15 12/06/17 18:30 Temperature Pulse Rate 109 H 115 H 117 H Respiratory Rate 63 H 52 H 52 H Pulse Oximetry 99 98 98 12/06/17 18:45 12/06/17 19:00 12/06/17 19:15 Temperature Pulse Rate 117 H 117 H 116 H Respiratory Rate 60 H 47 H 62 H Pulse Oximetry 98 98 98 12/06/17 19:30 12/06/17 19:45 12/06/17 20:00 Temperature 99.6 F Pulse Rate 116 H 116 H 118 H Respiratory Rate 53 H 56 H 58 H Pulse Oximetry 98 98 97 12/06/17 20:15 12/06/17 20:30 12/06/17 20:45 Temperature Pulse Rate 117 H 118 H 117 H Respiratory Rate 47 H 52 H 48 H Pulse Oximetry 95 96 96 12/06/17 21:00 12/06/17 21:01 12/06/17 21:15 Temperature Pulse Rate 117 H 116 H 117 H Respiratory Rate 46 H 19 49 H Pulse Oximetry 96 96 96 12/06/17 21:30 12/06/17 21:45 12/06/17 22:00 Temperature Pulse Rate 116 H 117 H 117 H Respiratory Rate 46 H 42 H 42 H Pulse Oximetry 97 97 97 12/06/17 22:15 12/06/17 22:30 12/06/17 22:45 Temperature Pulse Rate 116 H 115 H 116 H Respiratory Rate 47 H 39 H 44 H Pulse Oximetry 97 97 98 12/06/17 23:00 12/06/17 23:15 12/06/17 23:30 Temperature Pulse Rate 115 H 114 H 114 H Respiratory Rate 75 H 46 H 97 H Pulse Oximetry 98 98 98 12/06/17 23:45 12/06/17 23:47 12/07/17 00:00 Temperature 99.8 F H Pulse Rate 114 H 113 H 116 H Respiratory Rate 77 H 19 43 H Pulse Oximetry 98 98 96 12/07/17 00:15 12/07/17 00:30 12/07/17 00:45 Temperature Pulse Rate 117 H 116 H 116 H Respiratory Rate 43 H 38 H 36 H Pulse Oximetry 96 97 96 12/07/17 01:00 12/07/17 01:15 12/07/17 01:30 Temperature Pulse Rate 114 H 113 H 112 H Respiratory Rate 49 H 33 H 38 H Pulse Oximetry 97 97 97 12/07/17 01:45 12/07/17 02:00 12/07/17 02:15 Temperature Pulse Rate 121 H 119 H 119 H Respiratory Rate 38 H 52 H 97 H Pulse Oximetry 96 96 97 12/07/17 02:30 12/07/17 02:45 12/07/17 03:00 Temperature Pulse Rate 116 H 112 H 110 H Respiratory Rate 19 47 H 47 H Pulse Oximetry 96 96 97 12/07/17 03:15 12/07/17 03:30 12/07/17 03:45 Temperature Pulse Rate 109 H 108 H 108 H Respiratory Rate 43 H 65 H 54 H Pulse Oximetry 97 97 97 12/07/17 04:00 12/07/17 04:15 12/07/17 04:30 Temperature 99.2 F Pulse Rate 107 H 106 H 108 H Respiratory Rate 72 H 85 H 74 H Pulse Oximetry 97 97 97 12/07/17 04:44 12/07/17 04:45 12/07/17 05:00 Temperature Pulse Rate 112 H 113 H 113 H Respiratory Rate 20 92 H 97 H Pulse Oximetry 97 97 97 12/07/17 05:15 12/07/17 05:30 12/07/17 05:45 Temperature Pulse Rate 116 H 115 H 115 H Respiratory Rate 93 H 115 H 110 H Pulse Oximetry 97 97 97 12/07/17 06:00 12/07/17 06:15 12/07/17 06:30 Temperature Pulse Rate 114 H 113 H 113 H Respiratory Rate 113 H 111 H 110 H Pulse Oximetry 97 97 97 12/07/17 06:45 12/07/17 07:00 12/07/17 07:15 Temperature Pulse Rate 112 H 112 H 111 H Respiratory Rate 93 H 109 H 106 H Pulse Oximetry 97 96 97 12/07/17 07:30 12/07/17 07:38 12/07/17 07:45 Temperature Pulse Rate 110 H 112 H 112 H Respiratory Rate 108 H 20 46 H Pulse Oximetry 97 98 12/07/17 08:00 12/07/17 08:15 12/07/17 08:30 Temperature 100.0 F H Pulse Rate 111 H 111 H 114 H Respiratory Rate 42 H 55 H 60 H Pulse Oximetry 97 97 97 12/07/17 08:45 12/07/17 09:00 12/07/17 09:15 Temperature Pulse Rate 118 H 116 H 115 H Respiratory Rate 51 H 77 H 94 H Pulse Oximetry 97 97 97 12/07/17 09:30 12/07/17 09:45 12/07/17 10:00 Temperature Pulse Rate 114 H 112 H 113 H Respiratory Rate 90 H 26 H 62 H Pulse Oximetry 97 96 96 12/07/17 10:15 12/07/17 10:30 12/07/17 10:45 Temperature Pulse Rate 113 H 113 H 112 H Respiratory Rate 20 21 20 Pulse Oximetry 96 97 96 12/07/17 11:00 12/07/17 11:15 12/07/17 11:30 Temperature Pulse Rate 111 H 109 H 108 H Respiratory Rate 18 19 20 Pulse Oximetry 97 97 97 12/07/17 11:45 12/07/17 11:57 12/07/17 12:00 Temperature 98.9 F Pulse Rate 107 H 107 H 106 H Respiratory Rate 19 21 21 Pulse Oximetry 97 97 97 12/07/17 12:15 12/07/17 12:30 12/07/17 12:45 Temperature Pulse Rate 107 H 110 H 110 H Respiratory Rate 21 22 21 Pulse Oximetry 97 97 97 12/07/17 13:00 12/07/17 13:15 12/07/17 13:30 Temperature Pulse Rate 109 H 108 H 114 H Respiratory Rate 21 21 22 Pulse Oximetry 97 98 97 12/07/17 13:45 12/07/17 14:00 12/07/17 14:15 Temperature Pulse Rate 115 H 117 H 117 H Respiratory Rate 38 H 25 H 24 Pulse Oximetry 96 97 97 12/07/17 14:30 12/07/17 14:37 12/07/17 14:45 Temperature 98.9 F Pulse Rate 118 H 118 H 119 H Respiratory Rate 34 H 18 34 H Pulse Oximetry 97 96 97 12/07/17 15:00 12/07/17 15:15 12/07/17 15:30 Temperature Pulse Rate 116 H 118 H 119 H Respiratory Rate 40 H 43 H 40 H Pulse Oximetry 97 97 97 12/07/17 15:45 12/07/17 16:55 Temperature Pulse Rate 120 H 116 H Respiratory Rate 35 H 20 Pulse Oximetry 96 97 Intake & Output 12/06/17 12/07/17 12/07/17 18:59 06:59 18:59 Intake Total 2772.0557 / 2772.0557 650 / 650 400 / 400 Output Total 1530 / 1530 870 / 870 Balance 1242.0557 / 1242.0557 -220 / -220 400 / 400 Weight 82 kg Intake: IV 2417.0557 / 2417.0557 650 / 650 400 / 400 Versed Inj 50 mg In 50 ml @ 2 100 / 100 100 / 100 100 / 100 MG/HR 2 mls/hr IV.CONT TITRATE PRN Rx#:[id number] Diprivan 1000 mg/100 ml Inj 1, 100 / 100 000 mg In 100 ml @ 5 MCG/KG/MIN 2.859 mls/hr IV.CONT TITRATE PRN Rx#:[id number] Intralipid 20% Inj 250 ML @ 31. 0 / 0 250 / 250 25 mls/hr IV.SIG Q24H [facility] Rx#: [id number] Mycamine Inj 100 MG In NS Inj 100 / 100 100 ML @ 100 mls/hr IV.SIG Q24H [facility] Rx#:[id number] Zosyn 2.25 GM Premix 50 ML @ 50 / 50 50 / 50 50 / 50 100 mls/hr IV.SIG Q8H [facility] Rx#: [id number] Sodium Chloride 23.4% Inj 5.5 1032.2588 / 1032.2588 MEQ Sodium Acetate Inj 29.5 MEQ KCl Inj 20 MEQ Calcium Chloride Inj 4.5 MEQ MVI-12 Inj 10 ML Folvite Inj 1 MG In Clinimix 5%/D20W Inj 1,000 ML @ 40.275 mls/hr IV.SIG Q24H [facility] Rx#:[id number] fentaNYL 10 mcg/mL Premix Drip 250 / 250 250 / 250 2,500 mcg In 250 ml @ 50 MCG/HR 5 mls/hr IV.SIG TITRATE PRN Rx #:[id number] Tube Feeding 235 / 235 Tube Irrigant 60 / 60 Water Bolus Amount 60 / 60 Intake (Blood Product) Amt 0 / 0 Rbc As-3 Leukoreduced Unit 0 / 0 [id number] Output: Stool 275 / 275 100 / 100 Gastric Drainage 75 / 75 Right Nare Nasogastric Tube 75 / 75 Wound Drainage 1180 / 1180 770 / 770 # 1 Right Abdomen 70 / 70 20 / 20 # 2 Right Abdomen 1110 / 1110 750 / 750 Other: Date of Last Bowel Movement 12/06/17 12/07/17 12/08/17 - Urinary Catheter Management Indwelling Temp Sensing Catheter Cath placed during this visit: no <Filipe Robertson - Last Filed: 12/07/17 17:53> Assessment and Plan - Assessment (1) JACLYN (acute kidney injury) Code(s): N17.9 - Acute kidney failure, unspecified Status: Acute Plan: Anuric renal failure. He has become dialysis dependent. Dialysis every 2nd day. Patient to be dialyzed today. Monitor for recovery. Continue supportive care. Avoid nephrotoxic agents. (2) Acute respiratory failure Code(s): J96.00 - Acute respiratory failure, unspecified whether with hypoxia or hypercapnia Status: Acute Qualifiers: Respiratory failure complication: hypoxia Qualified Code(s): J96.01 - Acute respiratory failure with hypoxia Plan: on the ventilator. Possible aspiration. (3) Gastric perforation Code(s): K25.5 - Chronic or unspecified gastric ulcer with perforation Status : Acute Plan: s/p surgery. Subtotal gastrectomy here. In he had: Dinh-en-y esophagojejunostomy, feeding jejunostomy placement, diagnostic EGD, primary fascial closure. Date of procedure: 11/28/17 (4) Candidemia Code(s): B37.7 - Candidal sepsis Status: Acute Plan: On Micafungin. Patient is also on Zosyn. Dose medications appropriate to renal function. (5) DVT (deep venous thrombosis) Code(s): I82.409 - Acute embolism and thrombosis of unspecified deep veins of unspecified lower extremity Status: Acute Plan: On heparin drip. DVT of bilateral upper extremities. (6) Anemia Code(s): D64.9 - Anemia, unspecified Status: Acute Plan: Hemoglobin is 7.2. Could be multifactorial. Rule out bleeding. Also could be due to renal failure. Patient to receive 1 unit PRBCs during dialysis today. <Jocelyn Crews - Last Filed: 12/07/17 16:00> - Assessment (1) JACLYN (acute kidney injury) Code(s): N17.9 - Acute kidney failure, unspecified Status: Acute (2) Acute respiratory failure Code(s): J96.00 - Acute respiratory failure, unspecified whether with hypoxia or hypercapnia Status: Acute Qualifiers: Respiratory failure complication: hypoxia Qualified Code(s): J96.01 - Acute respiratory failure with hypoxia (3) Gastric perforation Code(s): K25.5 - Chronic or unspecified gastric ulcer with perforation Status : Acute (4) Candidemia Code(s): B37.7 - Candidal sepsis Status: Acute (5) DVT (deep venous thrombosis) Code(s): I82.409 - Acute embolism and thrombosis of unspecified deep veins of unspecified lower extremity Status: Acute (6) Anemia Code(s): D64.9 - Anemia, unspecified Status: Acute - Attending Attestation patient was seen and examined. Seen during dialysis. On 2K, UF goal is 4 liters. We will dialyze him again tomorrow. <Filipe Robertson - Last Filed: 12/07/17 17:53>
[2017-12-08] MEDS: Oral Hygiene Kit OROPHARYNG SCH ×9 (00:34→23:49)
[2017-12-08] MEDS: Insulin NovoLOG Aspart Correctional Sugar Inj SQ SCH ×6 (00:50→21:19)
[2017-12-08] MEDS: Midazolam 50 MG/50 ML Inj 50 MG/50 ML BAG IV.CONT PRN ×4 (00:54→17:54)
[2017-12-08] MEDS: fentaNYL 10 mcg/mL Premix Drip 2,500 MCG/250 ML BAG IV.SIG PRN ×2 (03:50→18:53)
[2017-12-08] MEDS: hydrALAZINE HCl Inj 20 MG/ML Vial IV.PUSH PRN (04:52)
[2017-12-08 05:12] LABS: Baso # (Auto) 0.1 th/mm3 (0.0-0.2); Baso % (Auto) 0.6 % (0.0-2.0); Eos # (Auto) 0.2 th/mm3 (0.0-0.4); Eos % (Auto) 1.1 % (0.0-4.0); Hematocrit 22.2 % (39.0-51.0); Hemoglobin 7.8 gm/dL (13.0-17.0); Lymph # (Auto) 0.9 th/mm3 (1.0-4.8); Lymph % (Auto) 4.3 % (9.0-44.0); Mean Corpuscular Hemoglobin 30.6 pg (27.0-34.0); Mean Corpuscular Volume 87.3 fL (80.0-100.0); Mean Platelet Volume 9.8 fL (7.0-11.0); Mono # (Auto) 2.1 th/mm3 (0.0-0.9); Mono % (Auto) 10.1 % (0.0-8.0); Neut # (Auto) 17.8 th/mm3 (1.8-7.7); Neut % (Auto) 83.9 % (16.0-70.0); Platelet Count 478 th/mm3 (150-450); Red Blood Count 2.54 mil/mm3 (4.50-5.90); Red Cell Distribution Width 15.8 % (11.6-17.2); White Blood Count 21.2 th/mm3 (4.0-11.0)
[2017-12-08] MEDS: Piperacil/Tazo 2.25 GM Premix 50 ML IV.SIG SCH ×3 (05:40→21:20)
[2017-12-08 05:44] LABS: Albumin 1.6 g/dL (3.4-5.0); Calcium 7.7 mg/dL (8.5-10.1); Carbon Dioxide 25.2 meq/L (21.0-32.0); Phosphorus 6.9 mg/dL (2.5-4.9); Potassium 4.7 meq/L (3.5-5.1)
[2017-12-08] MEDS: Pantoprazole Inj 40 MG Vial IV.PUSH SCH (09:09)
[2017-12-08] MEDS: Calcium Acetate 667 MG Capsule PO SCH ×3 (09:09→17:46)
[2017-12-08] MEDS: hydrALAZINE 50 MG Tablet PO SCH ×3 (09:09→17:46)
[2017-12-08] MEDS: Chlorhexidine 0.12% Oral Kit 15 ML UDC OROPHARYNG SCH ×4 (09:11→20:10)
--- NOTE | 2017-12-08 11:45 | P.PNGS ---
Subjective Patient reports: tolerating liquids well (TF at 30, intubated sedated, tpn) Physical Exam Vital signs: Vital Signs 12/07/17 11:45 12/07/17 11:57 12/07/17 12:00 Temperature 98.9 F Pulse Rate 107 H 107 H 106 H Respiratory Rate 19 21 21 Pulse Oximetry 97 97 97 12/07/17 12:15 12/07/17 12:30 12/07/17 12:45 Temperature Pulse Rate 107 H 110 H 110 H Respiratory Rate 21 22 21 Pulse Oximetry 97 97 97 12/07/17 13:00 12/07/17 13:15 12/07/17 13:30 Temperature Pulse Rate 109 H 108 H 114 H Respiratory Rate 21 21 22 Pulse Oximetry 97 98 97 12/07/17 13:45 12/07/17 14:00 12/07/17 14:15 Temperature Pulse Rate 115 H 117 H 117 H Respiratory Rate 38 H 25 H 24 Pulse Oximetry 96 97 97 12/07/17 14:30 12/07/17 14:37 12/07/17 14:45 Temperature 98.9 F Pulse Rate 118 H 118 H 119 H Respiratory Rate 34 H 18 34 H Pulse Oximetry 97 96 97 12/07/17 15:00 12/07/17 15:15 12/07/17 15:30 Temperature Pulse Rate 116 H 118 H 119 H Respiratory Rate 40 H 43 H 40 H Pulse Oximetry 97 97 97 12/07/17 15:45 12/07/17 16:00 12/07/17 16:55 Temperature 98.6 F Pulse Rate 120 H 118 H 116 H Respiratory Rate 35 H 40 H 20 Pulse Oximetry 96 96 97 12/07/17 17:00 12/07/17 18:00 12/07/17 19:00 Temperature Pulse Rate 116 H 120 H 97 H Respiratory Rate 19 26 H 22 Pulse Oximetry 97 95 96 12/07/17 20:00 12/07/17 20:50 12/07/17 21:00 Temperature 99.0 F Pulse Rate 101 H 101 H 104 H Respiratory Rate 26 H 20 25 H Pulse Oximetry 97 97 98 12/07/17 22:00 12/07/17 23:00 12/08/17 00:00 Temperature 98.5 F Pulse Rate 107 H 110 H 109 H Respiratory Rate 24 20 24 Pulse Oximetry 98 98 98 12/08/17 01:00 11/03/18 01:11 12/08/17 02:00 Temperature Pulse Rate 111 H 110 H 111 H Respiratory Rate 20 20 19 Pulse Oximetry 97 97 97 12/08/17 03:00 12/08/17 04:00 12/08/17 04:04 Temperature 98.6 F Pulse Rate 113 H 119 H 119 H Respiratory Rate 19 19 20 Pulse Oximetry 96 95 95 12/08/17 05:00 12/08/17 05:15 12/08/17 05:30 Temperature Pulse Rate 113 H 116 H 119 H Respiratory Rate 21 24 21 Pulse Oximetry 96 96 95 12/08/17 05:43 12/08/17 05:45 12/08/17 06:00 Temperature Pulse Rate 121 H 121 H 121 H Respiratory Rate 20 18 Pulse Oximetry 96 96 12/08/17 06:15 12/08/17 06:30 12/08/17 06:45 Temperature Pulse Rate 121 H 120 H 118 H Respiratory Rate 17 20 21 Pulse Oximetry 96 96 96 12/08/17 07:00 12/08/17 07:15 12/08/17 07:30 Temperature Pulse Rate 119 H 116 H 117 H Respiratory Rate 20 20 19 Pulse Oximetry 96 96 96 12/08/17 07:45 12/08/17 08:00 12/08/17 08:15 Temperature 100.1 F H Pulse Rate 118 H 118 H 117 H Respiratory Rate 21 16 17 Pulse Oximetry 96 96 97 12/08/17 08:30 12/08/17 08:45 12/08/17 09:00 Temperature Pulse Rate 116 H 115 H 116 H Respiratory Rate 18 20 18 Pulse Oximetry 96 97 96 12/08/17 09:15 12/08/17 09:30 12/08/17 09:45 Temperature Pulse Rate 118 H 125 H 125 H Respiratory Rate 18 25 H 20 Pulse Oximetry 96 96 96 12/08/17 09:52 12/08/17 10:00 12/08/17 10:15 Temperature Pulse Rate 125 H 124 H Respiratory Rate 21 20 16 Pulse Oximetry 96 96 96 12/08/17 10:30 Temperature Pulse Rate 124 H Respiratory Rate 17 Pulse Oximetry 96 Intake & Output 12/07/17 12/08/17 12/08/17 18:59 06:59 18:59 Intake Total 2132.2588 / 2132.2588 1058 / 1058 100 / 100 Output Total 1300 / 1300 415 / 415 Balance 832.2588 / 832.2588 643 / 643 100 / 100 Weight 80.7 kg Intake: IV 1582.2588 / 1582.2588 700 / 700 100 / 100 Versed Inj 50 mg In 50 ml @ 2 150 / 150 100 / 100 MG/HR 2 mls/hr IV.CONT TITRATE PRN Rx#:[id number] Intralipid 20% Inj 250 ML @ 31. 250 / 250 25 mls/hr IV.SIG Q24H [facility] Rx#: [id number] Mycamine Inj 100 MG In NS Inj 100 / 100 100 / 100 100 ML @ 100 mls/hr IV.SIG Q24H [facility] Rx#:[id number] Zosyn 2.25 GM Premix 50 ML @ 50 / 50 100 / 100 100 mls/hr IV.SIG Q8H [facility] Rx#: [id number] Sodium Chloride 23.4% Inj 5.5 1032.2588 / 1032.2588 MEQ Sodium Acetate Inj 29.5 MEQ KCl Inj 20 MEQ Calcium Chloride Inj 4.5 MEQ MVI-12 Inj 10 ML Folvite Inj 1 MG In Clinimix 5%/D20W Inj 1,000 ML @ 40.275 mls/hr IV.SIG Q24H [facility] Rx#:[id number] fentaNYL 10 mcg/mL Premix Drip 250 / 250 250 / 250 2,500 mcg In 250 ml @ 50 MCG/HR 5 mls/hr IV.SIG TITRATE PRN Rx #:[id number] Tube Feeding 430 / 430 358 / 358 Tube Irrigant 60 / 60 Water Bolus Amount 60 / 60 Intake (Blood Product) Amt 0 / 0 Rbc As-3 Leukoreduced Unit 0 / 0 [id number] Output: Urine 0 / 0 Stool 150 / 150 50 / 50 Pleural Fluid 675 / 675 Gastric Drainage 0 / 0 Right Nare Nasogastric Tube 0 / 0 Wound Drainage 475 / 475 365 / 365 # 1 Right Abdomen 50 / 50 25 / 25 # 2 Right Abdomen 425 / 425 340 / 340 Other: Date of Last Bowel Movement 12/07/17 12/08/17 12/08/17 - Routine Respiratory Exam Present: decreased breath sounds (left chest tube no leak) - Routine Abdominal Exam Present: soft (incision with wet to dry, adam cloudy serosang, ) - Urinary Catheter Management Indwelling Temp Sensing Catheter Cath placed during this visit: no Results - Labs 12/08/17 04:46 12/08/17 04:46 Laboratory Results - last 24 hr 12/04/17 12/07/17 12/07/17 10:46 10:10 12:24 WBC RBC Hgb Hct MCV MCH MCHC RDW Plt Count MPV Neut % (Auto) Lymph % (Auto) [place] % (Auto) Eos % (Auto) Baso % (Auto) Neut # (Auto) Lymph # (Auto) [place] # (Auto) Eos # (Auto) Baso # (Auto) WBC Differential Differential Comment Sodium Potassium Chloride Carbon Dioxide Anion Gap BUN Creatinine Estimated GFR POC Glucose 149 H Random Glucose Calcium Phosphorus Albumin Pleural RBC 79161 H Pleural Nuc Cells 3500 H Pleural Neutrophils 80 Pleural Lymphocytes 3 Pleural Monocytes 3 Pleural Histocytes 2 Pleural Mesothelial 12 Pleural Fluid Comment Blood Type Antibody Screen MTS Gel Crossmatch See Detail 12/07/17 12/07/17 12/07/17 12:47 12:47 17:30 WBC RBC Hgb Hct MCV MCH MCHC RDW Plt Count MPV Neut % (Auto) Lymph % (Auto) [place] % (Auto) Eos % (Auto) Baso % (Auto) Neut # (Auto) Lymph # (Auto) [place] # (Auto) Eos # (Auto) Baso # (Auto) WBC Differential Differential Comment Sodium Potassium Chloride Carbon Dioxide Anion Gap BUN Creatinine Estimated GFR POC Glucose 143 H Random Glucose Calcium Phosphorus Albumin Pleural RBC Pleural Nuc Cells Pleural Neutrophils Pleural Lymphocytes Pleural Monocytes Pleural Histocytes Pleural Mesothelial Pleural Fluid Comment Blood Type A Positive Antibody Screen Negative MTS Gel Crossmatch See Detail 12/07/17 12/08/17 12/08/17 19:41 04:42 04:46 WBC 21.2 H RBC 2.54 L Hgb 7.8 L Hct 22.2 L MCV 87.3 MCH 30.6 MCHC 35.0 RDW 15.8 Plt Count 478 H MPV 9.8 Neut % (Auto) 83.9 H Lymph % (Auto) 4.3 L [place] % (Auto) 10.1 H Eos % (Auto) 1.1 Baso % (Auto) 0.6 Neut # (Auto) 17.8 H Lymph # (Auto) 0.9 L [place] # (Auto) 2.1 H Eos # (Auto) 0.2 Baso # (Auto) 0.1 WBC Differential . Differential Comment Auto diff final Sodium Potassium Chloride Carbon Dioxide Anion Gap BUN Creatinine Estimated GFR POC Glucose 118 H 158 H Random Glucose Calcium Phosphorus Albumin Pleural RBC Pleural Nuc Cells Pleural Neutrophils Pleural Lymphocytes Pleural Monocytes Pleural Histocytes Pleural Mesothelial Pleural Fluid Comment Blood Type Antibody Screen MTS Gel Crossmatch 12/08/17 12/08/17 04:46 09:41 WBC RBC Hgb Hct MCV MCH MCHC RDW Plt Count MPV Neut % (Auto) Lymph % (Auto) [place] % (Auto) Eos % (Auto) Baso % (Auto) Neut # (Auto) Lymph # (Auto) [place] # (Auto) Eos # (Auto) Baso # (Auto) WBC Differential Differential Comment Sodium 138 Potassium 4.7 Chloride 100 Carbon Dioxide 25.2 Anion Gap 13 BUN 84 H Creatinine 6.90 H Estimated GFR 10 L POC Glucose 152 H Random Glucose 144 H Calcium 7.7 L Phosphorus 6.9 H Albumin 1.6 L Pleural RBC Pleural Nuc Cells Pleural Neutrophils Pleural Lymphocytes Pleural Monocytes Pleural Histocytes Pleural Mesothelial Pleural Fluid Comment Blood Type Antibody Screen MTS Gel Crossmatch - Imaging Imaging: ITS Impressions Head MRI 12/03/17 00:00 CONCLUSION: 1. Minimal nonspecific periventricular white matter changes. 2. No restricted diffusion to suggest an acute ischemic event. 3. No evidence for significant ischemic changes. Abdomen/Pelvis CT 12/04/17 00:02 CONCLUSION: 1. Interim midline laparotomy and gastrectomy with apparent Dinh-en-Y. 2. Bowel gas pattern consistent with obstruction of the duodenum and proximal jejunum. I don't see a mass. There does seem to be some jejunal wall thickening around the jejunostomy tube. 3. Wall thickening and mucosal enhancement of the colon consistent with moderate severity colitis. C. difficile colitis would be in the differential. 4. Solid organs are within normal limits. 5. Small ascites. Also diffuse body wall edema/anasarca. No perceptible hemorrhage. Chest CT 12/04/17 00:06 CONCLUSION: 1. Left greater than right pleural effusions and basilar atelectasis. 2. No hemorrhage or hematoma demonstrated. 3. Distended and fluid-filled esophagus. No wall thickening. Patient is status post gastrectomy. Nasogastric tube is at the GE junction. 4. Body wall edema/anasarca. Chest X-Ray 12/07/17 00:00 CONCLUSION: Interval improvement. Assessment and Plan - Assessment (1) Gastric perforation Code(s): K25.5 - Chronic or unspecified gastric ulcer with perforation Status : Acute Plan: 47yo male s/p Exlap and gastrectomy for gastric perforation, s/p esophagojejunostomy at [facility] -Intubated---vent per CCM -HD per nephro -Continue wet to dry daily to midline incision BID and PRN as well as Silvadene to lateral wounds on RIGHT side -Continue abdominal binder -TF via J tube - to 30 cc/hr -Continue routine ADAM care cx - s/p transfusion HH 7.8, ok to start lovenox for dvt, monitor hh closely - Plan s/p Ex lap rny e-j POD 3 Transferred back from [facility] PLAN TF at [facility] [place] [facility], keep same rate overnight, tpn ADAM sxn transfuse 2U appreciate ID recs for candidemia vent mgnt per ISC
--- NOTE | 2017-12-08 13:06 | P.PNNP ---
Subjective Interval history: Patient remains on ventilator status post abdominal surgery Dinh en Y esophagojejunal anastomosis Physical Exam Vital signs: Vital Signs 12/07/17 13:15 12/07/17 13:30 12/07/17 13:45 Temperature Pulse Rate 108 H 114 H 115 H Respiratory Rate 21 22 38 H Pulse Oximetry 98 97 96 12/07/17 14:00 12/07/17 14:15 12/07/17 14:30 Temperature Pulse Rate 117 H 117 H 118 H Respiratory Rate 25 H 24 34 H Pulse Oximetry 97 97 97 12/07/17 14:37 12/07/17 14:45 12/07/17 15:00 Temperature 98.9 F Pulse Rate 118 H 119 H 116 H Respiratory Rate 18 34 H 40 H Pulse Oximetry 96 97 97 12/07/17 15:15 12/07/17 15:30 12/07/17 15:45 Temperature Pulse Rate 118 H 119 H 120 H Respiratory Rate 43 H 40 H 35 H Pulse Oximetry 97 97 96 12/07/17 16:00 12/07/17 16:55 12/07/17 17:00 Temperature 98.6 F Pulse Rate 118 H 116 H 116 H Respiratory Rate 40 H 20 19 Pulse Oximetry 96 97 97 12/07/17 18:00 12/07/17 19:00 12/07/17 20:00 Temperature 99.0 F Pulse Rate 120 H 97 H 101 H Respiratory Rate 26 H 22 26 H Pulse Oximetry 95 96 97 12/07/17 20:50 12/07/17 21:00 12/07/17 22:00 Temperature Pulse Rate 101 H 104 H 107 H Respiratory Rate 20 25 H 24 Pulse Oximetry 97 98 98 12/07/17 23:00 12/08/17 00:00 12/08/17 01:00 Temperature 98.5 F Pulse Rate 110 H 109 H 111 H Respiratory Rate 20 24 20 Pulse Oximetry 98 98 97 12/08/17 01:11 12/08/17 02:00 12/08/17 03:00 Temperature Pulse Rate 110 H 111 H 113 H Respiratory Rate 20 19 19 Pulse Oximetry 97 97 96 12/08/17 04:00 12/08/17 04:04 12/08/17 05:00 Temperature 98.6 F Pulse Rate 119 H 119 H 113 H Respiratory Rate 19 20 21 Pulse Oximetry 95 95 96 12/08/17 05:15 12/08/17 05:30 12/08/17 05:43 Temperature Pulse Rate 116 H 119 H 121 H Respiratory Rate 24 21 Pulse Oximetry 96 95 12/08/17 05:45 12/08/17 06:00 12/08/17 06:15 Temperature Pulse Rate 121 H 121 H 121 H Respiratory Rate 20 18 17 Pulse Oximetry 96 96 96 12/08/17 06:30 12/08/17 06:45 12/08/17 07:00 Temperature Pulse Rate 120 H 118 H 119 H Respiratory Rate 20 21 20 Pulse Oximetry 96 96 96 12/08/17 07:15 12/08/17 07:30 12/08/17 07:45 Temperature Pulse Rate 116 H 117 H 118 H Respiratory Rate 20 19 21 Pulse Oximetry 96 96 96 12/08/17 08:00 12/08/17 08:15 12/08/17 08:30 Temperature 100.1 F H Pulse Rate 118 H 117 H 116 H Respiratory Rate 16 17 18 Pulse Oximetry 96 97 96 12/08/17 08:45 12/08/17 09:00 12/08/17 09:15 Temperature Pulse Rate 115 H 116 H 118 H Respiratory Rate 20 18 18 Pulse Oximetry 97 96 96 12/08/17 09:30 12/08/17 09:45 12/08/17 09:52 Temperature Pulse Rate 125 H 125 H Respiratory Rate 25 H 20 21 Pulse Oximetry 96 96 96 12/08/17 10:00 12/08/17 10:15 12/08/17 10:30 Temperature Pulse Rate 125 H 124 H 124 H Respiratory Rate 20 16 17 Pulse Oximetry 96 96 96 12/08/17 10:45 12/08/17 11:00 12/08/17 11:15 Temperature Pulse Rate 122 H 122 H 119 H Respiratory Rate 17 17 18 Pulse Oximetry 95 96 96 12/08/17 11:30 12/08/17 11:45 12/08/17 12:00 Temperature Pulse Rate 118 H 119 H 117 H Respiratory Rate 17 19 18 Pulse Oximetry 95 96 96 12/08/17 12:15 12/08/17 12:30 12/08/17 12:47 Temperature 99.7 F H Pulse Rate 119 H 117 H Respiratory Rate 19 17 20 Pulse Oximetry 96 97 96 Intake & Output 12/07/17 12/08/17 12/08/17 18:59 06:59 18:59 Intake Total 2132.2588 / 2132.2588 1058 / 1058 100 / 100 Output Total 1300 / 1300 415 / 415 Balance 832.2588 / 832.2588 643 / 643 100 / 100 Weight 80.7 kg Intake: IV 1582.2588 / 1582.2588 700 / 700 100 / 100 Versed Inj 50 mg In 50 ml @ 2 150 / 150 100 / 100 MG/HR 2 mls/hr IV.CONT TITRATE PRN Rx#:[id number] Intralipid 20% Inj 250 ML @ 31. 250 / 250 25 mls/hr IV.SIG Q24H [facility] Rx#: [id number] Mycamine Inj 100 MG In NS Inj 100 / 100 100 / 100 100 ML @ 100 mls/hr IV.SIG Q24H [facility] Rx#:[id number] Zosyn 2.25 GM Premix 50 ML @ 50 / 50 100 / 100 100 mls/hr IV.SIG Q8H [facility] Rx#: [id number] Sodium Chloride 23.4% Inj 5.5 1032.2588 / 1032.2588 MEQ Sodium Acetate Inj 29.5 MEQ KCl Inj 20 MEQ Calcium Chloride Inj 4.5 MEQ MVI-12 Inj 10 ML Folvite Inj 1 MG In Clinimix 5%/D20W Inj 1,000 ML @ 40.275 mls/hr IV.SIG Q24H [facility] Rx#:[id number] fentaNYL 10 mcg/mL Premix Drip 250 / 250 250 / 250 2,500 mcg In 250 ml @ 50 MCG/HR 5 mls/hr IV.SIG TITRATE PRN Rx #:[id number] Tube Feeding 430 / 430 358 / 358 Tube Irrigant 60 / 60 Water Bolus Amount 60 / 60 Intake (Blood Product) Amt 0 / 0 Rbc As-3 Leukoreduced Unit 0 / 0 [id number] Output: Urine 0 / 0 Stool 150 / 150 50 / 50 Pleural Fluid 675 / 675 Gastric Drainage 0 / 0 Right Nare Nasogastric Tube 0 / 0 Wound Drainage 475 / 475 365 / 365 # 1 Right Abdomen 50 / 50 25 / 25 # 2 Right Abdomen 425 / 425 340 / 340 Other: Date of Last Bowel Movement 12/07/17 12/08/17 12/08/17 Narrative: Sedated Orally intubated Abd: soft; dressings intact; JP1 with serous fluid; JP2 with serosanguineous fluid J tube with TF BUE edema - Urinary Catheter Management Indwelling Temp Sensing Catheter Cath placed during this visit: no Assessment and Plan - Assessment (1) JACLYN (acute kidney injury) Code(s): N17.9 - Acute kidney failure, unspecified Status: Acute Plan: Anuric renal failure. He has become dialysis dependent. Dialysis every 2nd day. 4 L of ultrafiltration yesterday Monitor for recovery. Continue supportive care. Avoid nephrotoxic agents. (2) Acute respiratory failure Code(s): J96.00 - Acute respiratory failure, unspecified whether with hypoxia or hypercapnia Status: Acute Qualifiers: Respiratory failure complication: hypoxia Qualified Code(s): J96.01 - Acute respiratory failure with hypoxia Plan: on the ventilator. Possible aspiration. (3) Gastric perforation Code(s): K25.5 - Chronic or unspecified gastric ulcer with perforation Status : Acute Plan: s/p surgery. Subtotal gastrectomy here. In [facility] he had: Dinh-en-y esophagojejunostomy, feeding jejunostomy placement, diagnostic EGD, primary fascial closure. Date of procedure: 11/28/17 (4) Candidemia Code(s): B37.7 - Candidal sepsis Status: Acute Plan: On Micafungin. Patient is also on Zosyn. Dose medications appropriate to renal function. (5) DVT (deep venous thrombosis) Code(s): I82.409 - Acute embolism and thrombosis of unspecified deep veins of unspecified lower extremity Status: Acute Plan: On heparin drip. DVT of bilateral upper extremities. (6) Anemia Code(s): D64.9 - Anemia, unspecified Status: Acute Plan: Hemoglobin is 7.2. Could be multifactorial. Rule out bleeding. Also could be due to renal failure. Patient to receive 1 unit PRBCs during dialysis today.
--- NOTE | 2017-12-08 15:32 | P.PNID ---
Subjective Remarks: Patient reintubated 12/04 for acute hypoxic respiratory failure. On the vent. ID X cover for Dr Millan This is a 46-year-old black male who initially was admitted to the hospital on 11/22/2017. The patient was found to have no pneumoperitoneum on 11/23/2017. He presented with severe abdominal pain. He was also noted to have ischemia of the proximal two-thirds of the stomach and there was a large gastric perforation and contamination of food particles into the peritoneum. The patient ended up being transferred to [facility] in [place] and he underwent subtotal gastrectomy and Dinh-en-Y esophageal jejunostomy and a feeding jejunostomy tube placement. He was put on antifungal medication for candidemia. The results of the cultures are not available to me at this time. The culture reportedly was from [facility] in [place]. He was transferred back to [facility] on 11/29/2017 from [facility]. The reason for this consultation is for candidemia. Left chest tube placed. Afebrile. White blood cell count is still elevated. Sputum culture - no growth. Pleural fluid culture pending. WBC 21 K Low grade fever u to 100.[address] from with bowel wall thickening and negative c.diff Antibiotics: Micafungin Zosyn Allergies/Adverse Reactions: Allergies No Known Allergies Allergy (Verified 11/22/17 02:38) Objective Vital Signs 12/07/17 15:30 12/07/17 15:45 12/07/17 16:00 Temperature 98.6 F Pulse Rate 119 H 120 H 118 H Respiratory Rate 40 H 35 H 40 H Pulse Oximetry 97 96 96 12/07/17 16:55 12/07/17 17:00 12/07/17 18:00 Temperature Pulse Rate 116 H 116 H 120 H Respiratory Rate 20 19 26 H Pulse Oximetry 97 97 95 12/07/17 19:00 12/07/17 20:00 12/07/17 20:50 Temperature 99.0 F Pulse Rate 97 H 101 H 101 H Respiratory Rate 22 26 H 20 Pulse Oximetry 96 97 97 12/07/17 21:00 12/07/17 22:00 12/07/17 23:00 Temperature Pulse Rate 104 H 107 H 110 H Respiratory Rate 25 H 24 20 Pulse Oximetry 98 98 98 12/08/17 00:00 12/08/17 01:00 12/08/17 01:11 Temperature 98.5 F Pulse Rate 109 H 111 H 110 H Respiratory Rate 24 20 20 Pulse Oximetry 98 97 97 12/08/17 02:00 12/08/17 03:00 12/08/17 04:00 Temperature 98.6 F Pulse Rate 111 H 113 H 119 H Respiratory Rate 19 19 19 Pulse Oximetry 97 96 95 12/08/17 04:04 12/08/17 05:00 12/08/17 05:15 Temperature Pulse Rate 119 H 113 H 116 H Respiratory Rate 20 21 24 Pulse Oximetry 95 96 96 12/08/17 05:30 12/08/17 05:43 12/08/17 05:45 Temperature Pulse Rate 119 H 121 H 121 H Respiratory Rate 21 20 Pulse Oximetry 95 96 12/08/17 06:00 12/08/17 06:15 12/08/17 06:30 Temperature Pulse Rate 121 H 121 H 120 H Respiratory Rate 18 17 20 Pulse Oximetry 96 96 96 12/08/17 06:45 12/08/17 07:00 12/08/17 07:15 Temperature Pulse Rate 118 H 119 H 116 H Respiratory Rate 21 20 20 Pulse Oximetry 96 96 96 12/08/17 07:30 12/08/17 07:45 12/08/17 08:00 Temperature 100.1 F H Pulse Rate 117 H 118 H 118 H Respiratory Rate 19 21 16 Pulse Oximetry 96 96 96 12/08/17 08:15 12/08/17 08:30 12/08/17 08:45 Temperature Pulse Rate 117 H 116 H 115 H Respiratory Rate 17 18 20 Pulse Oximetry 97 96 97 12/08/17 09:00 12/08/17 09:15 12/08/17 09:30 Temperature Pulse Rate 116 H 118 H 125 H Respiratory Rate 18 18 25 H Pulse Oximetry 96 96 96 12/08/17 09:45 12/08/17 09:52 12/08/17 10:00 Temperature Pulse Rate 125 H 125 H Respiratory Rate 20 21 20 Pulse Oximetry 96 96 96 12/08/17 10:15 12/08/17 10:30 12/08/17 10:45 Temperature Pulse Rate 124 H 124 H 122 H Respiratory Rate 16 17 17 Pulse Oximetry 96 96 95 12/08/17 11:00 12/08/17 11:15 12/08/17 11:30 Temperature Pulse Rate 122 H 119 H 118 H Respiratory Rate 17 18 17 Pulse Oximetry 96 96 95 12/08/17 11:45 12/08/17 12:00 12/08/17 12:15 Temperature Pulse Rate 119 H 117 H 119 H Respiratory Rate 19 18 19 Pulse Oximetry 96 96 96 12/08/17 12:30 12/08/17 12:47 12/08/17 14:00 Temperature 99.7 F H Pulse Rate 117 H 119 H Respiratory Rate 17 20 Pulse Oximetry 97 96 Intake & Output 12/07/17 12/08/17 12/08/17 18:59 06:59 18:59 Intake Total 2132.2588 / 2132.2588 1058 / 1058 150 / 150 Output Total 1300 / 1300 415 / 415 Balance 832.2588 / 832.2588 643 / 643 150 / 150 Weight 80.7 kg Intake: IV 1582.2588 / 1582.2588 700 / 700 150 / 150 Versed Inj 50 mg In 50 ml @ 2 150 / 150 100 / 100 50 / 50 MG/HR 2 mls/hr IV.CONT TITRATE PRN Rx#:[id number] Intralipid 20% Inj 250 ML @ 31. 250 / 250 25 mls/hr IV.SIG Q24H [facility] Rx#: [id number] Mycamine Inj 100 MG In NS Inj 100 / 100 100 / 100 100 ML @ 100 mls/hr IV.SIG Q24H [facility] Rx#:[id number] Zosyn 2.25 GM Premix 50 ML @ 50 / 50 100 / 100 100 mls/hr IV.SIG Q8H [facility] Rx#: [id number] Sodium Chloride 23.4% Inj 5.5 1032.2588 / 1032.2588 MEQ Sodium Acetate Inj 29.5 MEQ KCl Inj 20 MEQ Calcium Chloride Inj 4.5 MEQ MVI-12 Inj 10 ML Folvite Inj 1 MG In Clinimix 5%/D20W Inj 1,000 ML @ 40.275 mls/hr IV.SIG Q24H [facility] Rx#:[id number] fentaNYL 10 mcg/mL Premix Drip 250 / 250 250 / 250 2,500 mcg In 250 ml @ 50 MCG/HR 5 mls/hr IV.SIG TITRATE PRN Rx #:[id number] Tube Feeding 430 / 430 358 / 358 Tube Irrigant 60 / 60 Water Bolus Amount 60 / 60 Intake (Blood Product) Amt 0 / 0 Rbc As-3 Leukoreduced Unit 0 / 0 [id number] Output: Urine 0 / 0 Stool 150 / 150 50 / 50 Pleural Fluid 675 / 675 Gastric Drainage 0 / 0 Right Nare Nasogastric Tube 0 / 0 Wound Drainage 475 / 475 365 / 365 # 1 Right Abdomen 50 / 50 25 / 25 # 2 Right Abdomen 425 / 425 340 / 340 Other: Date of Last Bowel Movement 12/07/17 12/08/17 12/08/17 12/07/17 10:10 Fluid - Pleural fluid Gram Stain - Final 12/07/17 10:10 Fluid - Pleural fluid Body Fluid Culture - Preliminary No growth in 24 hours 12/07/17 10:10 Fluid - Pleural fluid Fungal Smear - Final No fungal elements seen 12/07/17 10:10 Fluid - Pleural fluid Fungal Culture - Pending 12/07/17 10:10 Fluid - Pleural fluid Acid Fast Bacilli Smear - Pending 12/07/17 10:10 Fluid - Pleural fluid Mycobacterial Culture - Pending 12/04/17 00:15 Sputum - Endotracheal Gram Stain - Final 12/04/17 00:15 Sputum - Endotracheal Sputum Culture - Final Light growth normal respiratory mega Lab - Hematology Results 12/07/17 12/08/17 04:50 04:46 WBC 24.2 H 21.2 H RBC 2.41 L 2.54 L Hgb 7.2 L 7.8 L Hct 21.6 L 22.2 L MCV 89.9 87.3 MCH 30.1 30.6 MCHC 33.4 35.0 RDW 15.8 15.8 Plt Count 497 H D 478 H MPV 9.9 9.8 Prelim Diff (Auto) Slide review pending Neut % (Auto) 83.9 H 83.9 H Lymph % (Auto) 4.6 L 4.3 L [place] % (Auto) 10.0 H 10.1 H Eos % (Auto) 1.1 1.1 Baso % (Auto) 0.4 0.6 Neut # (Auto) 20.3 H 17.8 H Lymph # (Auto) 1.1 0.9 L [place] # (Auto) 2.4 H 2.1 H Eos # (Auto) 0.3 0.2 Baso # (Auto) 0.1 0.1 WBC Differential Manual diff final . Seg Neuts % (Manual) 82 H Band Neuts % (Manual) 2 Lymphocytes % (Manual) 6 L Monocytes % (Manual) 6 Eosinophils % (Manual) 3 Metamyelocytes % (Man) 1 Abs Neuts (Manual) 20.6 H Differential Comment . Auto diff final Platelet Estimate High H Platelet Morphology Enlarged H Lab - Chemistry Results 12/06/17 12/06/17 12/07/17 17:05 21:53 00:22 Sodium Potassium Chloride Carbon Dioxide Anion Gap BUN Creatinine Estimated GFR POC Glucose 123 H 137 H 144 H Random Glucose Calcium Phosphorus Magnesium Total Bilirubin AST ALT Alkaline Phosphatase Total Protein Albumin 12/07/17 12/07/17 12/07/17 04:47 04:50 08:00 Sodium 137 Potassium 5.1 Chloride 100 Carbon Dioxide 22.6 Anion Gap 14 BUN 102 H Creatinine 8.80 H Estimated GFR 8 L POC Glucose 147 H 149 H Random Glucose 128 H Calcium 8.0 L Phosphorus 7.3 H D Magnesium 2.7 H Total Bilirubin 2.5 H AST 139 H ALT 192 H Alkaline Phosphatase 301 H Total Protein 6.1 L Albumin 1.6 L 12/07/17 12/07/17 12/07/17 12:24 17:30 19:41 Sodium Potassium Chloride Carbon Dioxide Anion Gap BUN Creatinine Estimated GFR POC Glucose 149 H 143 H 118 H Random Glucose Calcium Phosphorus Magnesium Total Bilirubin AST ALT Alkaline Phosphatase Total Protein Albumin 12/08/17 12/08/17 12/08/17 04:42 04:46 09:41 Sodium 138 Potassium 4.7 Chloride 100 Carbon Dioxide 25.2 Anion Gap 13 BUN 84 H Creatinine 6.90 H Estimated GFR 10 L POC Glucose 158 H 152 H Random Glucose 144 H Calcium 7.7 L Phosphorus 6.9 H Magnesium Total Bilirubin AST ALT Alkaline Phosphatase Total Protein Albumin 1.6 L 12/08/17 12/08/17 11:54 14:58 Sodium Potassium Chloride Carbon Dioxide Anion Gap BUN Creatinine Estimated GFR POC Glucose 153 H 144 H Random Glucose Calcium Phosphorus Magnesium Total Bilirubin AST ALT Alkaline Phosphatase Total Protein Albumin Imaging: ITS Impressions Head MRI 12/03/17 00:00 CONCLUSION: 1. Minimal nonspecific periventricular white matter changes. 2. No restricted diffusion to suggest an acute ischemic event. 3. No evidence for significant ischemic changes. Abdomen/Pelvis CT 12/04/17 00:02 CONCLUSION: 1. Interim midline laparotomy and gastrectomy with apparent Dinh-en-Y. 2. Bowel gas pattern consistent with obstruction of the duodenum and proximal jejunum. I don't see a mass. There does seem to be some jejunal wall thickening around the jejunostomy tube. 3. Wall thickening and mucosal enhancement of the colon consistent with moderate severity colitis. C. difficile colitis would be in the differential. 4. Solid organs are within normal limits. 5. Small ascites. Also diffuse body wall edema/anasarca. No perceptible hemorrhage. Chest CT 12/04/17 00:06 CONCLUSION: 1. Left greater than right pleural effusions and basilar atelectasis. 2. No hemorrhage or hematoma demonstrated. 3. Distended and fluid-filled esophagus. No wall thickening. Patient is status post gastrectomy. Nasogastric tube is at the GE junction. 4. Body wall edema/anasarca. Chest X-Ray 12/07/17 00:00 CONCLUSION: Interval improvement. Physical Exam: PHYSICAL EXAMINATION: GENERAL: Patient on the vent. Sedated. HEENT: No icterus. NECK: Supple without adenopathy or swelling. LUNGS: Decreased breath sounds. Left chest tube has serous drainage. HEART: Regular S1, S2. No audible murmur. ABDOMEN: ZAINAB drains x exits the RLQ abdomen and has cloudy serosanguineous drainage Abdomen is quite distended Incision is packed with serosang dc EXTREMITIES: No clubbing or cyanosis. Noon pitting edema of b/l upper extremities. SKIN: No diffuse rash. NEUROLOGIC: unable to assess, intubated. PSYCHIATRIC: Unable to assess. Assessment and Plan - Plan IMPRESSION: 1. Candidemia following gastric perforation and gastric ischemia. Blood culture at [facility] in [place] on 11/26 had Starr glabrata. Repeat blood culture is negative. 2. Status post abdominal surgery. 3. Acute respiratory failure. left pleural effusion. 4. Aspiration. 5. Acute kidney disease. 5. Recent cardiac arrest. 6. Leukocytosis. slighlty improved RECOMMENDATIONS: 1. Continue micafungin for candidemia. 2. Continue piperacillin/tazobactam. 3. Monitor sputum culture. 4. Monitor white blood cell count. 5. Monitor the temperature. KUB rechk c diff Discussed with RN at bedside.
--- NOTE | 2017-12-08 16:23 | XR ---
EXAM DATE: 12/08/2017 4:10 PM EDT AGE/SEX: 47 years / Male INDICATIONS: Distention. CLINICAL DATA: This is the patient's initial encounter. Patient reports that signs and symptoms have been present for 1 day and indicates a pain score of Nonresponsive. MEDICAL/SURGICAL HISTORY: . Renal failure, acute. Cardiac arrest, aspiration pneumonia. Gastrec violet, Dinh en Y. . COMPARISON: [facility], CHEST 1V SINGLE AP, 12/07/2017. . FINDINGS: Left-sided pigtail drainage catheter is in place in the left upper quadrant. Second vertically orien toby catheter is looped in the left midabdomen. Mild air-filled distention of the colon diffusely. No abnormal abdominal calcification. CONCLUSION: 1. 2 left-sided abdominal catheters. 2. Nonspecific bowel gas pattern. Electronically signed by: Zheng Beth MD 12/08/2017 4:21 PM EDT
--- NOTE | 2017-12-08 17:33 | P.PNCC ---
Subjective Subjective Remarks/Hospital Course: Patient was recently admitted to [facility] 11/[address] [facility] 11/26/17 after the following hospital course: 47-year-old -[place] male with reportedly no past medical or past surgical history who was admitted to hospitalist service 11/22/17 after presenting with abdominal pain, nausea, vomiting. He had CT abd/pelvis with massive gastric distention. NG tube had been placed. I was called to patient's bedside for CODE BLUE PEA arrest. CPR was ongoing and patient had massive abdominal distension and gastric regurgitant in the airway. He was emergently intubated and large amount of gastric secretions suctioned from oropharynx. After 21 minutes of CPR, ROSC was obtained and he was profoundly hypotensive. Continued aggressive fluid resuscitation and initiated dopamine. He was transferred to [facility] where CVL and R radial art line were placed and he was given 7 L of crystalloid and albumin. CXR demonstrated pneumoperitoneum and Dr. Martin Gudino was called emergently and he immediately contacted OR for emergent ex lap. He had intraabdominal hypertension with IAP of 40 mmHg, though fortunately was able to be ventilated adequately after rocuronium 50 mg IV and was transferred to OR. Dr. Martin Gudino took to the operating room early in the morning on 11/23 and discovered tension pneumoperitoneum, massive gastric distension, ischemia of the proximal 2/3 of the stomach and large gastric perforation with massive intraperitoneal contamination with food particles. Dr. Isaacs placed 2 NGT and decompressed 2 L of succus. Patient had initial improvement in vital signs in the immediate postoperative period, however he subsequently became hypotensive requiring upward titration of levophed and addition of vasopressin and stress dose hydrocortisone. He remains on levophed 10 mcg/min, neosynephrine 80 mcg/ min, vasopressin 0.04 units/min with overall vasopressor requirement weaning overnight. He is oliguric and creatinine is continuing to climb. He was given 2 L of crystalloid and albumin overnight. He does have significant fluid losses with combination of abdominal dressing and NGT output, so I will give an additional L of crystalloid now to monitor hourly response as he certainly does not appear volume overloaded. Nonetheless Flotrac numbers are suggesting adequate volume status and we may be seeing the consequence of ischemic ATN. May ultimately require HD, however not at this time. Abdomen remains open and plan is to re-explore 11/25. 11/25: Patient has acceptable hemodynamics by Flotrac but remains septic with requirements for phenylephrine 200 mics per minute, Levophed 8 mics per minute and vasopressin 0.04 units/min for blood pressure support. This has improved overnight and the Bhavesh-Synephrine support has been weaned off completely. Acid base balance is acceptable. ATN has developed which will undoubtedly require hemodialysis. Potassium level is normal. He is at increased risk for an anesthetic now but there is an urgent need to check for residual gastric necrosis. 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 Since the source control surgery, the maintenance of normal acid-base balance has been less difficult. Patient remains anuric with a rising creatinine above 6.0. He is clearly ahead on volume and will benefit from dialysis. A 2 lumen hemodialysis catheter was placed on 11/25 and has been packed with dilute heparin solution. The right internal jugular central line is been in place for 4 days and accessed multiple times. The femoral art line has been in for 4 days. Shock liver was apparent after the cardiac arrest reflecting a transaminitis, elevated bilirubin, and prolonged INR. The INR has remained normal following the transfusion of 4 units of fresh frozen plasma prior to surgery yesterday. A 10% dextrose infusion continues because of ongoing problems with hypoglycemia. Thrombocytopenia at 37,000 persists. He has remained on antibiotic coverage with Pipracil/tazobactam and fungal coverage with fluconazole, all adjusted for renal failure. Present vasopressor requirements include levophed at 7 mics per minute and vasopressin at 0.04 units/min. The chest x-ray is consistent with minor aspiration at the time of his preoperative cardiac arrest on the floor and cultures have subsequently grown Klebsiella, pansensitive. The operative note will clarify the extent of the surgery but in essence the distal esophagus is stapled off and marked with 2 Prolene sutures. The antrum of the stomach is oversewn. Most of the stomach has been removed. The abdomen is open with a VAC dressing applied. Subjective: 11/29: Bowel was in discontinuity following subtotal gastrectomy and patient was transferred to [facility]. On reexploration 11/28 he underwent Dinh-en-y esophagojejunostomy, feeding jejunostomy placement, diagnostic EGD, primary fascial closure. Wound vac was applied to abdomen (though currently wet to dry dressing in place upon arrival). He was reportedly found to have candidemia and was started on micafungin and has undergone ophtho eval. Lines including CVL, Vascath and art line have all been changed at [facility] (though not clear when). He remains on mechanical ventilation and has been weaned off pressors. He was found to have BUE DVTs and is on heparin drip. He is on TPN and has been started on trickle tube feeds with Nepro via jejunostomy. NGT is to [facility]. He underwent HD postoperatively on 11/28. He has now been transferred back to [facility] for ongoing management. I have updated his father and stepmother. 11/30: Patient re-admitted s/p transfer from [facility] overnight, otherwise no acute issues. Scheduled to undergo HD today. 12/01: T-max 101.7, leukocytosis to 27,000 with bandemia. Now 3 days following Dinh-en-Y reconstruction of GI tract following sub-total gastrectomy for gastric necrosis. All new lines placed after diagnosis of candidemia. TPN infusing, jejunostomy at trickle flow and can be increased slowly per general surgery. 12/02: Marked leukocytosis with bandemia persists. Afebrile over last 24 hours. Leave NG tube across the esophageal anastomosis and surgical service will direct timing of contrast study about 7 days following surgery. Continue with spontaneous breathing trials. 12/03: extubated yesterday. since then, has not followed commands, and does not talk. appears to have clinically an aphasia, although his uremia or severe hypoactive delirium could present this way. purposeful movements. will obtain MRI to rule out acute ischemia, as this appears to be a new mental status change (11/29 /[facility] notes state interactive on ventilator). 12/04: reintubated overnight: more output from ZAINAB drains. hgb dropped to 7 this AM: receiving 1 unit prbc. MRI negative for acute change. EEG ordered today to rule out subclinical status epilepticus. also concern overnight for aspiration event. 12/05: T-max 99. WBC 24,000. Reintubated yesterday for respiratory failure probably related to aspiration. Trickle feeding continues through jejunostomy. Nasogastric tube is through the anastomosis and is to low intermittent. 12/06: Afebrile. WBC 26,000. Bandemia has largely resolved. There are bilateral pleural effusions which may need to be tapped to rule out infection or leak. Both lower lobes are consolidated on CAT scan, probably representing compressive atelectasis from the effusions. 12/07: White count remains elevated at 25,000. Total parenteral nutrition infusing and tolerated. Altered mental status persists, possibly related to the cardiac arrest on the floor prior to transfer to the ICU. 12/08: Tolerating total parenteral nutrition with good glucose control. Leukocytosis persists. Fluid tap from left chest bit cloudy, cultures pending. Maintaining adequate gas exchange on lower levels of fractional inspired oxygen. Aim for extubation trial again soon. Objective Vital Signs / I&O: Vital Signs 12/07/17 18:00 12/07/17 19:00 12/07/17 20:00 Temperature 99.0 F Pulse Rate 120 H 97 H 101 H Respiratory Rate 26 H 22 26 H Pulse Oximetry 95 96 97 12/07/17 20:50 12/07/17 21:00 12/07/17 22:00 Temperature Pulse Rate 101 H 104 H 107 H Respiratory Rate 20 25 H 24 Pulse Oximetry 97 98 98 12/07/17 23:00 12/08/17 00:00 12/08/17 01:00 Temperature 98.5 F Pulse Rate 110 H 109 H 111 H Respiratory Rate 20 24 20 Pulse Oximetry 98 98 97 12/08/17 01:11 12/08/17 02:00 12/08/17 03:00 Temperature Pulse Rate 110 H 111 H 113 H Respiratory Rate 20 19 19 Pulse Oximetry 97 97 96 12/08/17 04:00 12/08/17 04:04 12/08/17 05:00 Temperature 98.6 F Pulse Rate 119 H 119 H 113 H Respiratory Rate 19 20 21 Pulse Oximetry 95 95 96 12/08/17 05:15 12/08/17 05:30 12/08/17 05:43 Temperature Pulse Rate 116 H 119 H 121 H Respiratory Rate 24 21 Pulse Oximetry 96 95 12/08/17 05:45 12/08/17 06:00 12/08/17 06:15 Temperature Pulse Rate 121 H 121 H 121 H Respiratory Rate 20 18 17 Pulse Oximetry 96 96 96 12/08/17 06:30 12/08/17 06:45 12/08/17 07:00 Temperature Pulse Rate 120 H 118 H 119 H Respiratory Rate 20 21 20 Pulse Oximetry 96 96 96 12/08/17 07:15 12/08/17 07:30 12/08/17 07:45 Temperature Pulse Rate 116 H 117 H 118 H Respiratory Rate 20 19 21 Pulse Oximetry 96 96 96 12/08/17 08:00 12/08/17 08:15 12/08/17 08:30 Temperature 100.1 F H Pulse Rate 118 H 117 H 116 H Respiratory Rate 16 17 18 Pulse Oximetry 96 97 96 12/08/17 08:45 12/08/17 09:00 12/08/17 09:15 Temperature Pulse Rate 115 H 116 H 118 H Respiratory Rate 20 18 18 Pulse Oximetry 97 96 96 12/08/17 09:30 12/08/17 09:45 12/08/17 09:52 Temperature Pulse Rate 125 H 125 H Respiratory Rate 25 H 20 21 Pulse Oximetry 96 96 96 12/08/17 10:00 12/08/17 10:15 12/08/17 10:30 Temperature Pulse Rate 125 H 124 H 124 H Respiratory Rate 20 16 17 Pulse Oximetry 96 96 96 12/08/17 10:45 12/08/17 11:00 12/08/17 11:15 Temperature Pulse Rate 122 H 122 H 119 H Respiratory Rate 17 17 18 Pulse Oximetry 95 96 96 12/08/17 11:30 12/08/17 11:45 12/08/17 12:00 Temperature Pulse Rate 118 H 119 H 117 H Respiratory Rate 17 19 18 Pulse Oximetry 95 96 96 12/08/17 12:15 12/08/17 12:30 12/08/17 12:47 Temperature 99.7 F H Pulse Rate 119 H 117 H Respiratory Rate 19 17 20 Pulse Oximetry 96 97 96 12/08/17 14:00 12/08/17 16:11 Temperature Pulse Rate 119 H Respiratory Rate 19 Pulse Oximetry 96 Intake & Output 12/07/17 12/08/17 12/08/17 18:59 06:59 18:59 Intake Total 2132.2588 / 2132.2588 1058 / 1058 150 / 150 Output Total 1300 / 1300 415 / 415 Balance 832.2588 / 832.2588 643 / 643 150 / 150 Weight 80.7 kg Intake: IV 1582.2588 / 1582.2588 700 / 700 150 / 150 Versed Inj 50 mg In 50 ml @ 2 150 / 150 100 / 100 50 / 50 MG/HR 2 mls/hr IV.CONT TITRATE PRN Rx#:[id number] Intralipid 20% Inj 250 ML @ 31. 250 / 250 25 mls/hr IV.SIG Q24H [facility] Rx#: [id number] Mycamine Inj 100 MG In NS Inj 100 / 100 100 / 100 100 ML @ 100 mls/hr IV.SIG Q24H [facility] Rx#:[id number] Zosyn 2.25 GM Premix 50 ML @ 50 / 50 100 / 100 100 mls/hr IV.SIG Q8H [facility] Rx#: [id number] Sodium Chloride 23.4% Inj 5.5 1032.2588 / 1032.2588 MEQ Sodium Acetate Inj 29.5 MEQ KCl Inj 20 MEQ Calcium Chloride Inj 4.5 MEQ MVI-12 Inj 10 ML Folvite Inj 1 MG In Clinimix 5%/D20W Inj 1,000 ML @ 40.275 mls/hr IV.SIG Q24H [facility] Rx#:[id number] fentaNYL 10 mcg/mL Premix Drip 250 / 250 250 / 250 2,500 mcg In 250 ml @ 50 MCG/HR 5 mls/hr IV.SIG TITRATE PRN Rx #:[id number] Tube Feeding 430 / 430 358 / 358 Tube Irrigant 60 / 60 Water Bolus Amount 60 / 60 Intake (Blood Product) Amt 0 / 0 Rbc As-3 Leukoreduced Unit 0 / 0 [id number] Output: Urine 0 / 0 Stool 150 / 150 50 / 50 Pleural Fluid 675 / 675 Gastric Drainage 0 / 0 Right Nare Nasogastric Tube 0 / 0 Wound Drainage 475 / 475 365 / 365 # 1 Right Abdomen 50 / 50 25 / 25 # 2 Right Abdomen 425 / 425 340 / 340 Other: Date of Last Bowel Movement 12/07/17 12/08/17 12/08/17 Result Diagrams: 12/08/17 04:46 12/08/17 04:46 Objective Remarks: GEN: Chronically ill-appearing, sedated for vent synchrony HEENT: NCAT, pupils 3 mm and reactive bilaterally NECK: RIJ vasc-cath and LIJ TLC present, clean/ dry/ intact CARDIO: NSR, regular rhythm, no JVD PULM: prvc, fio2 45%. equal chest rise. Scattered rhonchi persist, decreased breath sounds both bases.. ABD: Midline surgical bandages clean/ dry/ intact. ZAINAB #1 is anterior to esophagojejunostomy anastomosis, ZAINAB #2 posterior, both with serosanguineous drainage. Abdomen soft. Fascia is closed, skin is open, depth of wound is minimal. Open tissue is clean. SKIN: No rashes or lesions NEURO: Moves 4 limbs spontaneously. Purposeful with arms, tracks with eyes. Opens eyes to loud voice. Assessment and Plan - Problem List (1) Gastric perforation Code(s): K25.5 - Chronic or unspecified gastric ulcer with perforation Status : Acute (2) Status post total gastrectomy and Dinh-en-Y esophagojejunal anastomosis Code(s): Z90.3 - Acquired absence of stomach [part of]; Z98.0 - Intestinal bypass and anastomosis status Status: Acute (3) Ischemic hepatitis Code(s): K75.9 - Inflammatory liver disease, unspecified Status: Acute (4) Gastric necrosis Code(s): K31.89 - Other diseases of stomach and duodenum Status: Acute (5) Thrombocytopenia Code(s): D69.6 - Thrombocytopenia, unspecified Status: Acute (6) Acute bilateral deep vein thrombosis (DVT) of upper extremities Code(s): I82.623 - Acute embolism and thrombosis of deep veins of upper extremity, bilateral Status: Acute (7) Anemia Code(s): D64.9 - Anemia, unspecified Status: Acute (8) Leukocytosis Code(s): D72.829 - Elevated white blood cell count, unspecified Status: Acute (9) Candidemia Code(s): B37.7 - Candidal sepsis Status: Acute (10) On total parenteral nutrition (TPN) Code(s): Z78.9 - Other specified health status Status: Acute (11) Hx of cardiac arrest Code(s): Z86.74 - Personal history of sudden cardiac arrest Status: Resolved (12) Acute hemodialysis patient Code(s): Z99.2 - Dependence on renal dialysis Status: Acute (13) JACLYN (acute kidney injury) Code(s): N17.9 - Acute kidney failure, unspecified Status: Acute (14) Aspiration pneumonia Code(s): J69.0 - Pneumonitis due to inhalation of food and vomit Status: Acute (15) Acute respiratory failure Code(s): J96.00 - Acute respiratory failure, unspecified whether with hypoxia or hypercapnia Status: Acute - Assessment and Plan Plan: NEURO: Acute metabolic encephalopathy- severe MRI 12/03: negative for acute change EEG today. could be delirium vs. uremic encephalopathy vs anoxic brain injury following code RESP: Acute hypoxic and hypercarbic respiratory failure- recurrent, severe Healthcare associated aspiration pneumonia extub 12/02, reintubated 12/03 overnight wean fio2 to keep spo2 > 90% vent bundle aggressive pulmonary toilet PT/OT Required reintubation 12/04 Persistent bilateral pleural effusions left greater than right, consolidation both lower lobes. Consider tapping effusions for diagnostic and therapeutic purposes -done, cultures pending CV: Cardiac arrest 11/23/17 (PEA arrest due to shock secondary to acute gastric perf and tension pneumoperitoneum) Septic shock, resolved Now off pressors Hemodynamic monitoring with L radial art line Concern for anoxic injury at the time of arrest. GI: s/p gastric perforation with tension pneumoperitoneum status post ex lap with primary repair of anterior gastric perforation with stapler 11/23 On second look 11/25 he was found to have gastric necrosis requiring subtotal gastrectomy and placement of Abthera VAC dressing. The bowel was in discontinuity and he was transferred to [facility]. On 11/28 he underwent reexploration with Dinh-en-y esophagojejunostomy, feeding jejunostomy placement, diagnostic EGD, primary fascial closure Gastric necrosis Ischemic hepatopathy NGT to LIWS, do not manipulate NGT per general surgery orders from [facility]. Has feeding jejunostomy and tube feeds with Nepro 10 mL per hour had been started at [facility], continue for now with further management per general surgery. ZAINAB drains in place #1 anterior to anastomosis, #2 posterior to the anastomosis. Management per general surgery. Continue TPN renal formula 46 mL/hr. Intermittent lipids daily. General surgery recs appreciated per gen surg: restart tube feeds. CT abd/pelvis 12/03 without acute abdominal pathology. Had right upper quadrant ultrasound on 11/27/17 that demonstrated contracted gallbladder with sludge. No evidence of cholecystitis. Echogenicity in right liver related to focal fatty change or altered perfusion. Color Doppler interrogation through the region demonstrates patent vascularity. FEN/RENAL: JACLYN secondary to ischemic ATN HD as started 11/26 at [place]. Had HD 3 hours on 11/[address] [facility] with 1700 mL UF; HD today Has Delgado in place currently. Has R IJ Vascath. Monitor I/O and electrolytes. Nephrology consult. prealbumin low at 14 on 12/01. trend weekly. ID: Gastric perforation with large amount particulate peritoneal contamination 11/23 Acute Aspiration pneumonia Candidemia - reportedly blood cultures at OSH were positive. Will request records from microbiology. Patient had been on micafungin 100 mg IV daily (started at [facility]) with last administration at 10 AM on 11/29. Was previously on diflucan IV. On Zosyn 2.25 IV every 8 hours with last administration 11/29 at noon. Will continue zosyn/micafungin. Patient was evaluated by ophthalmology prior to transfer. I do not see an ophthalmology note in the transfer documentation. I have requested this document. Requested culture data from [facility]. Send blood culture x2 sets now. Sputum culture 11/24 with pansensitive Klebsiella pneumonia ID consult HEME: Thrombocytopenia Bilateral upper extremity DVTs Anemia secondary to acute blood loss-requiring transfusion U/s 11/26 BUE - thrombus R axillary, brachial and basilic veins and thrombus in left axillary and left brachial veins. U/s bilateral lower extremities 11/26 at [facility] negative from common femoral to popliteal vein levels. Arrived on heparin drip Hematology consult was obtained at [facility] and recommended heparin drip and transfuse prn for platelets <50k. Will use target PTT 40-65 now, no boluses. Monitor CBC 1 unit prbc 12/04. recheck in AM. Hold chemical DVT prophylaxis ENDO: Monitor Glucose q4 hours and use low dose insulin sliding scale as indicated. PROPH: Discontinue heparin drip and hold subcu for DVT prophylaxis (oozing under dressing). Protonix 40 mg IV daily for stress ulcer prophylaxis. ACCESS: R IJ vascath , L IJ CVL, L radial art line. All existing lines were replaced at [facility]. Change both soon. FULL CODE OVERALL IMPRESSION: Critically ill with recurrent respiratory failure, likely recurrent aspiration, continue ventilatory support, nutrition, Abx. Overall impression: This gentleman is critically ill and nutritionally depleted. He has deteriorated clinical status requiring placement back on mechanical ventilation. Persistent leukocytosis is worrisome but he remains afebrile. I anticipate a prolonged postoperative course and continuing pulmonary complications. We will probably can end up needing to tap the left pleural effusion to rule out infection. Continue nutritional support with TPN. Add jejunostomy tube feeds per surgery but presently with pretty large amount of diarrheal stool persists. (6) Acute bilateral deep vein thrombosis (DVT) of upper extremities Qualifiers: Affected thrombotic vein of extremity: brachial Qualified Code(s): I82.623 - Acute embolism and thrombosis of deep veins of upper extremity, bilateral (15) Acute respiratory failure Qualifiers: Respiratory failure complication: hypoxia Qualified Code(s): J96.01 - Acute respiratory failure with hypoxia
[2017-12-09] MEDS: Insulin NovoLOG Aspart Correctional Sugar Inj SQ SCH ×6 (00:05→19:58)
[2017-12-09] MEDS: Midazolam 50 MG/50 ML Inj 50 MG/50 ML BAG IV.CONT PRN ×4 (00:21→23:45)
[2017-12-09] MEDS: fentaNYL 10 mcg/mL Premix Drip 2,500 MCG/250 ML BAG IV.SIG PRN ×2 (01:30→10:19)
[2017-12-09] MEDS: Oral Hygiene Kit OROPHARYNG SCH ×6 (03:17→15:52)
[2017-12-09 04:41] LABS: Baso # (Auto) 0.1 th/mm3 (0.0-0.2); Baso % (Auto) 0.7 % (0.0-2.0); Eos # (Auto) 0.2 th/mm3 (0.0-0.4); Eos % (Auto) 1.1 % (0.0-4.0); Hematocrit 21.3 % (39.0-51.0); Hemoglobin 7.3 gm/dL (13.0-17.0); Lymph # (Auto) 1.1 th/mm3 (1.0-4.8); Lymph % (Auto) 5.5 % (9.0-44.0); Mean Corpuscular HGB Conc 34.3 % (32.0-36.0); Mean Corpuscular Hemoglobin 30.8 pg (27.0-34.0); Mean Corpuscular Volume 89.9 fL (80.0-100.0); Mean Platelet Volume 9.3 fL (7.0-11.0); Mono % (Auto) 10.7 % (0.0-8.0); Neut # (Auto) 15.6 th/mm3 (1.8-7.7); Platelet Count 481 th/mm3 (150-450); Red Blood Count 2.37 mil/mm3 (4.50-5.90); Red Cell Distribution Width 15.4 % (11.6-17.2); White Blood Count 19.1 th/mm3 (4.0-11.0)
[2017-12-09 05:10] LABS: Albumin 1.6 g/dL (3.4-5.0); Carbon Dioxide 23.3 meq/L (21.0-32.0); Phosphorus 8.5 mg/dL (2.5-4.9); Potassium 5.3 meq/L (3.5-5.1)
[2017-12-09 05:11] LABS: Ovalocytes 1+; Platelet Morphology Normal (Normal); Target Cells 1+
[2017-12-09] MEDS: Piperacil/Tazo 2.25 GM Premix 50 ML IV.SIG SCH ×3 (05:17→21:44)
[2017-12-09] MEDS: Chlorhexidine 0.12% Oral Kit 15 ML UDC OROPHARYNG SCH ×4 (09:44→19:45)
[2017-12-09] MEDS: Pantoprazole Inj 40 MG Vial IV.PUSH SCH (09:45)
[2017-12-09] MEDS: Calcium Acetate 667 MG Capsule PO SCH ×3 (09:45→18:19)
[2017-12-09] MEDS: hydrALAZINE 50 MG Tablet PO SCH ×3 (09:45→18:19)
--- NOTE | 2017-12-09 11:53 | P.PNID ---
Subjective Remarks: Patient reintubated 12/04 for acute hypoxic respiratory failure. remains on the vent. borderline temps < 100 WBC down to 19 K KUB unremakable cont to have liquid stool on TPN, but tolerates increased TF up to 40 cc/hr pleural clx neg @ 48 hrs Left chest tube placed. Low grade fever u to 100.[address] from with bowel wall thickening and negative c.diff Antibiotics: Micafungin Zosyn Allergies/Adverse Reactions: Allergies No Known Allergies Allergy (Verified 11/22/17 02:38) Objective Vital Signs 12/08/17 12:47 12/08/17 13:00 12/08/17 13:15 Temperature Pulse Rate 120 H 120 H Respiratory Rate 20 19 18 Pulse Oximetry 96 96 96 12/08/17 13:30 12/08/17 13:45 12/08/17 14:00 Temperature Pulse Rate 119 H 120 H 119 H Respiratory Rate 17 17 18 Pulse Oximetry 97 96 97 12/08/17 14:15 12/08/17 14:30 12/08/17 14:45 Temperature Pulse Rate 118 H 117 H 116 H Respiratory Rate 18 16 16 Pulse Oximetry 97 97 97 12/08/17 15:00 12/08/17 15:15 12/08/17 15:30 Temperature Pulse Rate 117 H 115 H 115 H Respiratory Rate 18 16 17 Pulse Oximetry 97 97 98 12/08/17 15:45 12/08/17 16:00 12/08/17 16:11 Temperature Pulse Rate 116 H 115 H Respiratory Rate 18 18 19 Pulse Oximetry 97 96 96 12/08/17 16:15 12/08/17 16:30 12/08/17 16:45 Temperature Pulse Rate 115 H 114 H 113 H Respiratory Rate 19 19 18 Pulse Oximetry 96 96 96 12/08/17 17:00 12/08/17 17:15 12/08/17 17:30 Temperature Pulse Rate 113 H 113 H 113 H Respiratory Rate 18 20 18 Pulse Oximetry 97 97 97 12/08/17 17:45 12/08/17 18:00 12/08/17 18:15 Temperature 99.3 F Pulse Rate 113 H 114 H 121 H Respiratory Rate 18 17 43 H Pulse Oximetry 97 97 97 12/08/17 18:30 12/08/17 20:00 12/08/17 20:56 Temperature 99.6 F Pulse Rate 118 H 116 H Respiratory Rate 18 19 20 Pulse Oximetry 97 97 96 12/08/17 22:00 12/08/17 23:50 12/09/17 00:00 Temperature 99.7 F H Pulse Rate 116 H 118 H Respiratory Rate 18 18 Pulse Oximetry 96 97 12/09/17 01:27 EDT 12/09/17 04:00 12/09/17 04:02 Temperature 99.7 F H Pulse Rate 117 H 116 H Respiratory Rate 18 18 Pulse Oximetry 97 97 12/09/17 06:00 12/09/17 07:31 12/09/17 08:00 Temperature 99.8 F H Pulse Rate 108 H 110 H Respiratory Rate 18 18 Pulse Oximetry 97 98 12/09/17 10:00 Temperature Pulse Rate 116 H Respiratory Rate Pulse Oximetry Intake & Output 12/08/17 12/09/17 12/09/17 19:59 06:59 18:59 Intake Total 0 / 0 Output Total Balance 0 / 0 Weight Intake: IV 0 / 0 Versed Inj 50 mg In 50 ml @ 2 MG/HR 2 mls/hr IV.CONT TITRATE PRN Rx#:[id number] Intralipid 20% Inj 250 ML @ 31. 25 mls/hr IV.SIG Q24H COLE Rx#: [id number] Mycamine Inj 100 MG In NS Inj 100 ML @ 100 mls/hr IV.SIG Q24H COLE Rx#:[id number] Zosyn 2.25 GM Premix 50 ML @ 100 mls/hr IV.SIG Q8H COLE Rx#: [id number] Sodium Chloride 23.4% Inj 5.5 MEQ Sodium Acetate Inj 29.5 MEQ KCl Inj 20 MEQ Calcium Chloride Inj 4.5 MEQ MVI-12 Inj 10 ML Folvite Inj 1 MG In Clinimix 5%/D20W Inj 2,000 ML @ 65 mls/hr IV.SIG Q24H COLE Rx#: [id number] fentaNYL 10 mcg/mL Premix Drip 0 / 0 2,500 mcg In 250 ml @ 50 MCG/HR 5 mls/hr IV.SIG TITRATE PRN Rx #:[id number] Tube Feeding Tube Irrigant Output: Urine Stool Pleural Fluid Gastric Drainage Right Nare Nasogastric Tube Wound Drainage # 1 Right Abdomen # 2 Right Abdomen Other: Date of Last Bowel Movement 12/09/17 12/07/17 10:10 Fluid - Pleural fluid Gram Stain - Final 12/07/17 10:10 Fluid - Pleural fluid Body Fluid Culture - Preliminary No growth in 48 hours 12/08/17 18:25 Fluid - Peritoneal fluid Gram Stain - Pending 12/08/17 18:25 Fluid - Peritoneal fluid Body Fluid Culture - Pending 12/07/17 10:10 Fluid - Pleural fluid Fungal Smear - Final No fungal elements seen 12/07/17 10:10 Fluid - Pleural fluid Fungal Culture - Pending 12/07/17 10:10 Fluid - Pleural fluid Acid Fast Bacilli Smear - Pending 12/07/17 10:10 Fluid - Pleural fluid Mycobacterial Culture - Pending 12/04/17 00:15 Sputum - Endotracheal Gram Stain - Final 12/04/17 00:15 Sputum - Endotracheal Sputum Culture - Final Light growth normal respiratory mega Lab - Hematology Results 12/08/17 12/09/17 04:46 04:20 WBC 21.2 H 19.1 H RBC 2.54 L 2.37 L Hgb 7.8 L 7.3 L Hct 22.2 L 21.3 L MCV 87.3 89.9 MCH 30.6 30.8 MCHC 35.0 34.3 RDW 15.8 15.4 Plt Count 478 H 481 H MPV 9.8 9.3 Prelim Diff (Auto) Slide review pending Neut % (Auto) 83.9 H 82.0 H Lymph % (Auto) 4.3 L 5.5 L [place] % (Auto) 10.1 H 10.7 H Eos % (Auto) 1.1 1.1 Baso % (Auto) 0.6 0.7 Neut # (Auto) 17.8 H 15.6 H Lymph # (Auto) 0.9 L 1.1 [place] # (Auto) 2.1 H 2.0 H Eos # (Auto) 0.2 0.2 Baso # (Auto) 0.1 0.1 WBC Differential . . Diff Scan Auto diff confirmed Differential Comment Auto diff final . Platelet Estimate High H Platelet Morphology Normal Target Cells 1+ H Ovalocytes 1+ H Lab - Chemistry Results 12/07/17 12/07/17 12/08/17 17:30 19:41 04:42 Sodium Potassium Chloride Carbon Dioxide Anion Gap BUN Creatinine Estimated GFR POC Glucose 143 H 118 H 158 H Random Glucose Calcium Phosphorus Albumin 11/03/18 11/03/18 11/03/18 04:46 09:41 11:54 Sodium 138 Potassium 4.7 Chloride 100 Carbon Dioxide 25.2 Anion Gap 13 BUN 84 H Creatinine 6.90 H Estimated GFR 10 L POC Glucose 152 H 153 H Random Glucose 144 H Calcium 7.7 L Phosphorus 6.9 H Albumin 1.6 L 12/08/17 12/08/17 12/08/17 14:58 17:15 20:15 Sodium Potassium Chloride Carbon Dioxide Anion Gap BUN Creatinine Estimated GFR POC Glucose 144 H 156 H 165 H Random Glucose Calcium Phosphorus Albumin 12/09/17 12/09/17 12/09/17 00:00 04:20 04:25 Sodium 135 L Potassium 5.3 H Chloride 96 L Carbon Dioxide 23.3 Anion Gap 16 H BUN 118 H Creatinine 8.94 H Estimated GFR 8 L POC Glucose 133 H 141 H Random Glucose 149 H Calcium 8.0 L Phosphorus 8.5 H D Albumin 1.6 L 12/09/17 09:31 Sodium Potassium Chloride Carbon Dioxide Anion Gap BUN Creatinine Estimated GFR POC Glucose 159 H Random Glucose Calcium Phosphorus Albumin Imaging: ITS Impressions Head MRI 12/03/17 00:00 CONCLUSION: 1. Minimal nonspecific periventricular white matter changes. 2. No restricted diffusion to suggest an acute ischemic event. 3. No evidence for significant ischemic changes. Abdomen/Pelvis CT 12/04/17 00:02 CONCLUSION: 1. Interim midline laparotomy and gastrectomy with apparent Dinh-en-Y. 2. Bowel gas pattern consistent with obstruction of the duodenum and proximal jejunum. I don't see a mass. There does seem to be some jejunal wall thickening around the jejunostomy tube. 3. Wall thickening and mucosal enhancement of the colon consistent with moderate severity colitis. C. difficile colitis would be in the differential. 4. Solid organs are within normal limits. 5. Small ascites. Also diffuse body wall edema/anasarca. No perceptible hemorrhage. Chest CT 12/04/17 00:06 CONCLUSION: 1. Left greater than right pleural effusions and basilar atelectasis. 2. No hemorrhage or hematoma demonstrated. 3. Distended and fluid-filled esophagus. No wall thickening. Patient is status post gastrectomy. Nasogastric tube is at the GE junction. 4. Body wall edema/anasarca. Chest X-Ray 12/07/17 00:00 CONCLUSION: Interval improvement. Abdomen X-Ray 12/08/17 00:00 CONCLUSION: 1. 2 left-sided abdominal catheters. 2. Nonspecific bowel gas pattern. Physical Exam: PHYSICAL EXAMINATION: GENERAL: Patient on the vent. Sedated. HEENT: No icterus. NECK: Supple without adenopathy or swelling. LUNGS: Decreased breath sounds. Left chest tube has serous drainage. HEART: Regular S1, S2. No audible murmur. ABDOMEN: ZAINAB drains x exits the RLQ abdomen and has cloudy serosanguineous drainage Abdomen remains quite distended Incision is packed with serosang dc EXTREMITIES: No clubbing or cyanosis. Non pitting edema of b/l upper extremities. SKIN: No diffuse rash. NEUROLOGIC: unable to assess, intubated. PSYCHIATRIC: Unable to assess. Assessment and Plan - Plan IMPRESSION: 1. Candidemia following gastric perforation and gastric ischemia. Blood culture at [facility] in [place] on 11/26 had Starr glabrata. Repeat blood culture is negative. 2. Status post abdominal surgery. 3. Acute respiratory failure. left pleural effusion. 4. Aspiration. 5. Acute kidney disease. 5. Recent cardiac arrest. 6. Leukocytosis. slighlty improved abx associated diarrhea, bowel wall thickenin c.diff neg 2/2 RECOMMENDATIONS: 1. Continue micafungin for candidemia. 2. Continue piperacillin/tazobactam. 3. Monitor white blood cell count. 4 Monitor the temperature.
--- NOTE | 2017-12-09 13:45 | P.PNCC ---
Subjective Subjective Remarks/Hospital Course: Patient was recently admitted [place] [facility] [place] and transferred to [facility] 11/26/17 after the following hospital course: 47-year-old -French male with reportedly no past medical or past surgical history who was admitted to hospitalist service 11/22/17 after presenting with abdominal pain, nausea, vomiting. He had CT abd/pelvis with massive gastric distention. NG tube had been placed. I was called to patient's bedside for CODE BLUE PEA arrest. CPR was ongoing and patient had massive abdominal distension and gastric regurgitant in the airway. He was emergently intubated and large amount of gastric secretions suctioned from oropharynx. After 21 minutes of CPR, ROSC was obtained and he was profoundly hypotensive. Continued aggressive fluid resuscitation and initiated dopamine. He was transferred to [facility] where CVL and R radial art line were placed and he was given 7 L of crystalloid and albumin. CXR demonstrated pneumoperitoneum and Dr. Martin Gudino was called emergently and he immediately contacted OR for emergent ex lap. He had intraabdominal hypertension with IAP of 40 mmHg, though fortunately was able to be ventilated adequately after rocuronium 50 mg IV and was transferred to OR. Dr. Martin Gudino took to the operating room early in the morning on 11/23 and discovered tension pneumoperitoneum, massive gastric distension, ischemia of the proximal 2/3 of the stomach and large gastric perforation with massive intraperitoneal contamination with food particles. Dr. Isaacs placed 2 NGT and decompressed 2 L of succus. Patient had initial improvement in vital signs in the immediate postoperative period, however he subsequently became hypotensive requiring upward titration of levophed and addition of vasopressin and stress dose hydrocortisone. He remains on levophed 10 mcg/min, neosynephrine 80 mcg/ min, vasopressin 0.04 units/min with overall vasopressor requirement weaning overnight. He is oliguric and creatinine is continuing to climb. He was given 2 L of crystalloid and albumin overnight. He does have significant fluid losses with combination of abdominal dressing and NGT output, so I will give an additional L of crystalloid now to monitor hourly response as he certainly does not appear volume overloaded. Nonetheless Flotrac numbers are suggesting adequate volume status and we may be seeing the consequence of ischemic ATN. May ultimately require HD, however not at this time. Abdomen remains open and plan is to re-explore 11/25. 11/25: Patient has acceptable hemodynamics by Flotrac but remains septic with requirements for phenylephrine 200 mics per minute, Levophed 8 mics per minute and vasopressin 0.04 units/min for blood pressure support. This has improved overnight and the Bhavesh-Synephrine support has been weaned off completely. Acid base balance is acceptable. ATN has developed which will undoubtedly require hemodialysis. Potassium level is normal. He is at increased risk for an anesthetic now but there is an urgent need to check for residual gastric necrosis. 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 Since the source control surgery, the maintenance of normal acid-base balance has been less difficult. Patient remains anuric with a rising creatinine above 6.0. He is clearly ahead on volume and will benefit from dialysis. A 2 lumen hemodialysis catheter was placed on 11/25 and has been packed with dilute heparin solution. The right internal jugular central line is been in place for 4 days and accessed multiple times. The femoral art line has been in for 4 days. Shock liver was apparent after the cardiac arrest reflecting a transaminitis, elevated bilirubin, and prolonged INR. The INR has remained normal following the transfusion of 4 units of fresh frozen plasma prior to surgery yesterday. A 10% dextrose infusion continues because of ongoing problems with hypoglycemia. Thrombocytopenia at 37,000 persists. He has remained on antibiotic coverage with Pipracil/tazobactam and fungal coverage with fluconazole, all adjusted for renal failure. Present vasopressor requirements include levophed at 7 mics per minute and vasopressin at 0.04 units/min. The chest x-ray is consistent with minor aspiration at the time of his preoperative cardiac arrest on the floor and cultures have subsequently grown Klebsiella, pansensitive. The operative note will clarify the extent of the surgery but in essence the distal esophagus is stapled off and marked with 2 Prolene sutures. The antrum of the stomach is oversewn. Most of the stomach has been removed. The abdomen is open with a VAC dressing applied. Subjective: 11/29: Bowel was in discontinuity following subtotal gastrectomy and patient was transferred to [facility]. On reexploration 11/28 he underwent Dinh-en-y esophagojejunostomy, feeding jejunostomy placement, diagnostic EGD, primary fascial closure. Wound vac was applied to abdomen (though currently wet to dry dressing in place upon arrival). He was reportedly found to have candidemia and was started on micafungin and has undergone ophtho eval. Lines including CVL, Vascath and art line have all been changed at [facility] (though not clear when). He remains on mechanical ventilation and has been weaned off pressors. He was found to have BUE DVTs and is on heparin drip. He is on TPN and has been started on trickle tube feeds with Nepro via jejunostomy. NGT is to [facility] He underwent HD postoperatively on 11/28. He has now been transferred back to [facility] for ongoing management. I have updated his father and stepmother. 11/30: Patient re-admitted s/p transfer from [facility] overnight, otherwise no acute issues. Scheduled to undergo HD today. 12/01: T-max 101.7, leukocytosis to 27,000 with bandemia. Now 3 days following Dinh-en-Y reconstruction of GI tract following sub-total gastrectomy for gastric necrosis. All new lines placed after diagnosis of candidemia. TPN infusing, jejunostomy at trickle flow and can be increased slowly per general surgery. 12/02: Marked leukocytosis with bandemia persists. Afebrile over last 24 hours. Leave NG tube across the esophageal anastomosis and surgical service will direct timing of contrast study about 7 days following surgery. Continue with spontaneous breathing trials. 12/03: extubated yesterday. since then, has not followed commands, and does not talk. appears to have clinically an aphasia, although his uremia or severe hypoactive delirium could present this way. purposeful movements. will obtain MRI to rule out acute ischemia, as this appears to be a new mental status change (11/29 /[facility] notes state interactive on ventilator). 12/04: reintubated overnight: more output from ZAINAB drains. hgb dropped to 7 this AM: receiving 1 unit prbc. MRI negative for acute change. EEG ordered today to rule out subclinical status epilepticus. also concern overnight for aspiration event. 12/05: T-max 99. WBC 24,000. Reintubated yesterday for respiratory failure probably related to aspiration. Trickle feeding continues through jejunostomy. Nasogastric tube is through the anastomosis and is to low intermittent. 12/06: Afebrile. WBC 26,000. Bandemia has largely resolved. There are bilateral pleural effusions which may need to be tapped to rule out infection or leak. Both lower lobes are consolidated on CAT scan, probably representing compressive atelectasis from the effusions. 12/07: White count remains elevated at 25,000. Total parenteral nutrition infusing and tolerated. Altered mental status persists, possibly related to the cardiac arrest on the floor prior to transfer to the ICU. 12/08: Tolerating total parenteral nutrition with good glucose control. Leukocytosis persists. Fluid tap from left chest bit cloudy, cultures pending. Maintaining adequate gas exchange on lower levels of fractional inspired oxygen. Aim for extubation trial again soon. 12/09: Patient considerably less edematous over the past several days following successful dialysis runs. Continually fails attempts at weaning parameters and desaturation. Left chest drainage is no growth by culture. White blood cell count remains elevated. Objective Vital Signs / I&O: Vital Signs 12/08/17 14:30 12/08/17 14:45 12/08/17 15:00 Temperature Pulse Rate 117 H 116 H 117 H Respiratory Rate 16 16 18 Pulse Oximetry 97 97 97 12/08/17 15:15 12/08/17 15:30 12/08/17 15:45 Temperature Pulse Rate 115 H 115 H 116 H Respiratory Rate 16 17 18 Pulse Oximetry 97 98 97 12/08/17 16:00 12/08/17 16:11 12/08/17 16:15 Temperature Pulse Rate 115 H 115 H Respiratory Rate 18 19 19 Pulse Oximetry 96 96 96 12/08/17 16:30 12/08/17 16:45 12/08/17 17:00 Temperature Pulse Rate 114 H 113 H 113 H Respiratory Rate 19 18 18 Pulse Oximetry 96 96 97 12/08/17 17:15 12/08/17 17:30 12/08/17 17:45 Temperature Pulse Rate 113 H 113 H 113 H Respiratory Rate 20 18 18 Pulse Oximetry 97 97 97 12/08/17 18:00 12/08/17 18:15 12/08/17 18:30 Temperature 99.3 F Pulse Rate 114 H 121 H 118 H Respiratory Rate 17 43 H 18 Pulse Oximetry 97 97 97 12/08/17 20:00 12/08/17 20:56 12/08/17 22:00 Temperature 99.6 F Pulse Rate 116 H 116 H Respiratory Rate 19 20 Pulse Oximetry 97 96 12/08/17 23:50 12/09/17 00:00 12/09/17 00:15 Temperature 99.7 F H Pulse Rate 118 H 118 H Respiratory Rate 18 19 18 Pulse Oximetry 96 97 97 12/09/17 00:30 12/09/17 00:45 12/09/17 01:27 EDT Temperature Pulse Rate 118 H 116 H 117 H Respiratory Rate 18 18 Pulse Oximetry 96 96 12/09/17 01:00 EST 12/09/17 01:15 EST 12/09/17 01:30 EST Temperature 98.6 F Pulse Rate 116 H 114 H 112 H Respiratory Rate 18 18 18 Pulse Oximetry 96 97 97 12/09/17 01:45 EST 12/09/17 02:00 12/09/17 02:15 Temperature Pulse Rate 114 H 112 H 116 H Respiratory Rate 18 18 18 Pulse Oximetry 97 97 96 12/09/17 02:30 12/09/17 02:45 12/09/17 03:00 Temperature Pulse Rate 115 H 120 H 119 H Respiratory Rate 18 18 18 Pulse Oximetry 97 97 97 12/09/17 03:15 12/09/17 03:30 12/09/17 03:45 Temperature Pulse Rate 117 H 116 H 116 H Respiratory Rate 19 18 18 Pulse Oximetry 97 97 96 12/09/17 04:00 12/09/17 04:02 12/09/17 04:15 Temperature 99.7 F H Pulse Rate 116 H 114 H Respiratory Rate 18 18 18 Pulse Oximetry 97 97 97 12/09/17 04:30 12/09/17 04:45 12/09/17 05:00 Temperature Pulse Rate 114 H 112 H 112 H Respiratory Rate 18 18 18 Pulse Oximetry 97 97 97 12/09/17 05:15 12/09/17 05:30 12/09/17 05:45 Temperature Pulse Rate 112 H 111 H 110 H Respiratory Rate 18 18 18 Pulse Oximetry 97 97 97 12/09/17 06:00 12/09/17 06:15 12/09/17 06:30 Temperature Pulse Rate 108 H 109 H 108 H Respiratory Rate 18 18 18 Pulse Oximetry 97 97 97 12/09/17 06:45 12/09/17 07:00 12/09/17 07:15 Temperature Pulse Rate 106 H 106 H 105 H Respiratory Rate 18 18 18 Pulse Oximetry 97 98 97 12/09/17 07:30 12/09/17 07:31 12/09/17 07:45 Temperature Pulse Rate 109 H 109 H Respiratory Rate 18 18 18 Pulse Oximetry 97 97 97 12/09/17 08:00 12/09/17 08:15 12/09/17 08:30 Temperature 99.8 F H Pulse Rate 108 H 108 H 109 H Respiratory Rate 18 18 18 Pulse Oximetry 97 97 97 12/09/17 08:45 12/09/17 09:00 12/09/17 09:15 Temperature Pulse Rate 109 H 110 H 111 H Respiratory Rate 18 18 18 Pulse Oximetry 97 97 97 12/09/17 09:30 12/09/17 09:45 12/09/17 10:00 Temperature Pulse Rate 110 H 113 H 117 H Respiratory Rate 18 18 18 Pulse Oximetry 97 96 96 12/09/17 10:15 12/09/17 10:30 12/09/17 10:45 Temperature Pulse Rate 117 H 117 H 117 H Respiratory Rate 18 18 18 Pulse Oximetry 95 96 96 12/09/17 11:00 12/09/17 11:15 12/09/17 11:30 Temperature Pulse Rate 115 H 113 H 114 H Respiratory Rate 18 18 18 Pulse Oximetry 96 97 97 12/09/17 11:45 12/09/17 12:00 12/09/17 12:07 Temperature Pulse Rate 114 H 114 H Respiratory Rate 18 18 18 Pulse Oximetry 97 97 97 12/09/17 12:15 Temperature Pulse Rate 116 H Respiratory Rate 18 Pulse Oximetry 97 Intake & Output 12/08/17 12/09/17 12/09/17 19:59 06:59 18:59 Intake Total 150 / 150 Output Total 3000 / 3000 Balance -2850 / -2850 Weight Intake: IV 150 / 150 Versed Inj 50 mg In 50 ml @ 2 50 / 50 MG/HR 2 mls/hr IV.CONT TITRATE PRN Rx#:[id number] Intralipid 20% Inj 250 ML @ 31. 25 mls/hr IV.SIG Q24H COLE Rx#: [id number] Mycamine Inj 100 MG In NS Inj 100 / 100 100 ML @ 100 mls/hr IV.SIG Q24H COLE Rx#:[id number] Zosyn 2.25 GM Premix 50 ML @ 100 mls/hr IV.SIG Q8H COLE Rx#: [id number] Sodium Chloride 23.4% Inj 5.5 MEQ Sodium Acetate Inj 29.5 MEQ KCl Inj 20 MEQ Calcium Chloride Inj 4.5 MEQ MVI-12 Inj 10 ML Folvite Inj 1 MG In Clinimix 5%/D20W Inj 2,000 ML @ 65 mls/hr IV.SIG Q24H COLE Rx#: [id number] fentaNYL 10 mcg/mL Premix Drip 0 / 0 2,500 mcg In 250 ml @ 50 MCG/HR 5 mls/hr IV.SIG TITRATE PRN Rx #:[id number] Tube Feeding Tube Irrigant Output: Urine Stool Pleural Fluid Hemodialysis Amount 3000 / 3000 Gastric Drainage Right Nare Nasogastric Tube Wound Drainage # 1 Right Abdomen # 2 Right Abdomen Other: Date of Last Bowel Movement 12/09/17 Result Diagrams: 12/09/17 04:20 12/09/17 04:20 Objective Remarks: GEN: Chronically ill-appearing, sedated for vent synchrony HEENT: NCAT, pupils 3 mm and reactive bilaterally NECK: RIJ vasc-cath and LIJ TLC present, clean/ dry/ intact CARDIO: NSR, regular rhythm, no JVD PULM: prvc, fio2 45%. equal chest rise. Scattered rhonchi persist, decreased breath sounds both bases.. ABD: Midline surgical bandages clean/ dry/ intact. ZAINAB #1 is anterior to esophagojejunostomy anastomosis, ZAINAB #2 posterior, both with serosanguineous drainage. Abdomen soft. Fascia is closed, skin is open, depth of wound is minimal. Open tissue is clean. SKIN: No rashes or lesions, dry NEURO: Moves 4 limbs spontaneously. Purposeful with arms, tracks with eyes. Does not follow commands. Opens eyes to loud voice. Assessment and Plan - Problem List (1) Gastric perforation Code(s): K25.5 - Chronic or unspecified gastric ulcer with perforation Status : Acute (2) Status post total gastrectomy and Dinh-en-Y esophagojejunal anastomosis Code(s): Z90.3 - Acquired absence of stomach [part of]; Z98.0 - Intestinal bypass and anastomosis status Status: Acute (3) Ischemic hepatitis Code(s): K75.9 - Inflammatory liver disease, unspecified Status: Acute (4) Gastric necrosis Code(s): K31.89 - Other diseases of stomach and duodenum Status: Acute (5) Thrombocytopenia Code(s): D69.6 - Thrombocytopenia, unspecified Status: Acute (6) Acute bilateral deep vein thrombosis (DVT) of upper extremities Code(s): I82.623 - Acute embolism and thrombosis of deep veins of upper extremity, bilateral Status: Acute (7) Anemia Code(s): D64.9 - Anemia, unspecified Status: Acute (8) Leukocytosis Code(s): D72.829 - Elevated white blood cell count, unspecified Status: Acute (9) Candidemia Code(s): B37.7 - Candidal sepsis Status: Acute (10) On total parenteral nutrition (TPN) Code(s): Z78.9 - Other specified health status Status: Acute (11) Acute hemodialysis patient Code(s): Z99.2 - Dependence on renal dialysis Status: Acute (12) JACLYN (acute kidney injury) Code(s): N17.9 - Acute kidney failure, unspecified Status: Acute (13) Aspiration pneumonia Code(s): J69.0 - Pneumonitis due to inhalation of food and vomit Status: Acute (14) Acute respiratory failure Code(s): J96.00 - Acute respiratory failure, unspecified whether with hypoxia or hypercapnia Status: Acute - Assessment and Plan Plan: NEURO: Acute metabolic encephalopathy- severe MRI 12/03: negative for acute change EEG today. could be delirium vs. uremic encephalopathy vs anoxic brain injury following code RESP: Acute hypoxic and hypercarbic respiratory failure- recurrent, severe Healthcare associated aspiration pneumonia extub 12/02, reintubated 12/03 overnight wean fio2 to keep spo2 > 90% vent bundle aggressive pulmonary toilet PT/OT Required reintubation 12/04 Persistent bilateral pleural effusions left greater than right, consolidation both lower lobes. Consider tapping effusions for diagnostic and therapeutic purposes -done, cultures pending CV: Cardiac arrest 11/23/17 (PEA arrest due to shock secondary to acute gastric perf and tension pneumoperitoneum) Septic shock, resolved Now off pressors Hemodynamic monitoring with L radial art line Concern for anoxic injury at the time of arrest. GI: s/p gastric perforation with tension pneumoperitoneum status post ex lap with primary repair of anterior gastric perforation with stapler 11/23 On second look 11/25 he was found to have gastric necrosis requiring subtotal gastrectomy and placement of Abthera VAC dressing. The bowel was in discontinuity and he was transferred to [facility]. On 11/28 he underwent reexploration with Dinh-en-y esophagojejunostomy, feeding jejunostomy placement, diagnostic EGD, primary fascial closure Gastric necrosis Ischemic hepatopathy NGT to LIWS, do not manipulate NGT per general surgery orders from [facility]. Has feeding jejunostomy and tube feeds with Nepro 10 mL per hour had been started at [facility], continue for now with further management per general surgery. ZAINAB drains in place #1 anterior to anastomosis, #2 posterior to the anastomosis. Management per general surgery. Continue TPN renal formula 46 mL/hr. Intermittent lipids daily. General surgery recs appreciated per gen surg: restart tube feeds. CT abd/pelvis 12/03 without acute abdominal pathology. Had right upper quadrant ultrasound on 11/27/17 that demonstrated contracted gallbladder with sludge. No evidence of cholecystitis. Echogenicity in right liver related to focal fatty change or altered perfusion. Color Doppler interrogation through the region demonstrates patent vascularity. FEN/RENAL: JACLYN secondary to ischemic ATN HD as started 11/26 at [place]. Had HD 3 hours on 11/28 at [facility] with 1700 mL UF; HD today Has Delgado in place currently. Has R IJ Vascath. Monitor I/O and electrolytes. Nephrology consult. prealbumin low at 14 on 12/01. trend weekly. ID: Gastric perforation with large amount particulate peritoneal contamination 11/23 Acute Aspiration pneumonia Candidemia - reportedly blood cultures at OSH were positive. Will request records from microbiology. Patient had been on micafungin 100 mg IV daily (started at [facility]) with last administration at 10 AM on 11/29. Was previously on diflucan IV. On Zosyn 2.25 IV every 8 hours with last administration 11/29 at noon. Will continue zosyn/micafungin. Patient was evaluated by ophthalmology prior to transfer. I do not see an ophthalmology note in the transfer documentation. I have requested this document. Requested culture data from [facility]. Send blood culture x2 sets now. Sputum culture 11/24 with pansensitive Klebsiella pneumonia ID consult HEME: Thrombocytopenia Bilateral upper extremity DVTs Anemia secondary to acute blood loss-requiring transfusion U/s 11/26 BUE - thrombus R axillary, brachial and basilic veins and thrombus in left axillary and left brachial veins. U/s bilateral lower extremities 11/26 at [facility] negative from common femoral to popliteal vein levels. Arrived on heparin drip Hematology consult was obtained at [facility] and recommended heparin drip and transfuse prn for platelets <50k. Will use target PTT 40-65 now, no boluses. Monitor CBC 1 unit prbc 12/04. recheck in AM. Hold chemical DVT prophylaxis ENDO: Monitor Glucose q4 hours and use low dose insulin sliding scale as indicated. PROPH: Discontinue heparin drip and hold subcu for DVT prophylaxis (oozing under dressing). Protonix 40 mg IV daily for stress ulcer prophylaxis. ACCESS: R IJ vascath , L IJ CVL, L radial art line. All existing lines were replaced at [facility]. Change both soon. FULL CODE I spoke at length with his stepmother this morning. She understands that we do not have a good feel for his neurologic status at this point as he appears to be encephalopathic, possibly of anoxic etiology. Overall impression: This gentleman is critically ill and nutritionally depleted. He had deteriorated clinical status requiring placement back on mechanical ventilation and we have not been able to get him extubated. Jejunostomy tube feedings are at a lower rate because of abundant diarrheal stool. TPN is infusing at 42 cc. (6) Acute bilateral deep vein thrombosis (DVT) of upper extremities Qualifiers: Affected thrombotic vein of extremity: brachial Qualified Code(s): I82.623 - Acute embolism and thrombosis of deep veins of upper extremity, bilateral (14) Acute respiratory failure Qualifiers: Respiratory failure complication: hypoxia Qualified Code(s): J96.01 - Acute respiratory failure with hypoxia
--- NOTE | 2017-12-09 15:37 | P.PNNP ---
Subjective Interval history: Patient on ventilator opens eyes hemodialysis done earlier Physical Exam Vital signs: Vital Signs 12/08/17 16:45 12/08/17 17:00 12/08/17 17:15 Temperature Pulse Rate 113 H 113 H 113 H Respiratory Rate 18 18 20 Pulse Oximetry 96 97 97 12/08/17 17:30 12/08/17 17:45 12/08/17 18:00 Temperature 99.3 F Pulse Rate 113 H 113 H 114 H Respiratory Rate 18 18 17 Pulse Oximetry 97 97 97 12/08/17 18:15 12/08/17 18:30 12/08/17 20:00 Temperature 99.6 F Pulse Rate 121 H 118 H 116 H Respiratory Rate 43 H 18 19 Pulse Oximetry 97 97 97 12/08/17 20:56 12/08/17 22:00 12/08/17 23:50 Temperature Pulse Rate 116 H Respiratory Rate 20 18 Pulse Oximetry 96 96 12/09/17 00:00 12/09/17 00:15 12/09/17 00:30 Temperature 99.7 F H Pulse Rate 118 H 118 H 118 H Respiratory Rate 19 18 18 Pulse Oximetry 97 97 96 12/09/17 00:45 12/09/17 01:27 EDT 12/09/17 01:00 EST Temperature 98.6 F Pulse Rate 116 H 117 H 116 H Respiratory Rate 18 18 Pulse Oximetry 96 96 12/09/17 01:15 EST 12/09/17 01:30 EST 12/09/17 01:45 EST Temperature Pulse Rate 114 H 112 H 114 H Respiratory Rate 18 18 18 Pulse Oximetry 97 97 97 12/09/17 02:00 12/09/17 02:15 12/09/17 02:30 Temperature Pulse Rate 112 H 116 H 115 H Respiratory Rate 18 18 18 Pulse Oximetry 97 96 97 12/09/17 02:45 12/09/17 03:00 12/09/17 03:15 Temperature Pulse Rate 120 H 119 H 117 H Respiratory Rate 18 18 19 Pulse Oximetry 97 97 97 12/09/17 03:30 12/09/17 03:45 12/09/17 04:00 Temperature 99.7 F H Pulse Rate 116 H 116 H 116 H Respiratory Rate 18 18 18 Pulse Oximetry 97 96 97 12/09/17 04:02 12/09/17 04:15 11/04/18 04:30 Temperature Pulse Rate 114 H 114 H Respiratory Rate 18 18 18 Pulse Oximetry 97 97 97 12/09/17 04:45 12/09/17 05:00 12/09/17 05:15 Temperature Pulse Rate 112 H 112 H 112 H Respiratory Rate 18 18 18 Pulse Oximetry 97 97 97 12/09/17 05:30 12/09/17 05:45 12/09/17 06:00 Temperature Pulse Rate 111 H 110 H 108 H Respiratory Rate 18 18 18 Pulse Oximetry 97 97 97 12/09/17 06:15 12/09/17 06:30 12/09/17 06:45 Temperature Pulse Rate 109 H 108 H 106 H Respiratory Rate 18 18 18 Pulse Oximetry 97 97 97 12/09/17 07:00 12/09/17 07:15 12/09/17 07:30 Temperature Pulse Rate 106 H 105 H 109 H Respiratory Rate 18 18 18 Pulse Oximetry 98 97 97 12/09/17 07:31 12/09/17 07:45 12/09/17 08:00 Temperature 99.8 F H Pulse Rate 109 H 108 H Respiratory Rate 18 18 18 Pulse Oximetry 97 97 97 12/09/17 08:15 12/09/17 08:30 12/09/17 08:45 Temperature Pulse Rate 108 H 109 H 109 H Respiratory Rate 18 18 18 Pulse Oximetry 97 97 97 12/09/17 09:00 12/09/17 09:15 12/09/17 09:30 Temperature Pulse Rate 110 H 111 H 110 H Respiratory Rate 18 18 18 Pulse Oximetry 97 97 97 12/09/17 09:45 12/09/17 10:00 12/09/17 10:15 Temperature Pulse Rate 113 H 117 H 117 H Respiratory Rate 18 18 18 Pulse Oximetry 96 96 95 12/09/17 10:30 12/09/17 10:45 12/09/17 11:00 Temperature Pulse Rate 117 H 117 H 115 H Respiratory Rate 18 18 18 Pulse Oximetry 96 96 96 12/09/17 11:15 12/09/17 11:30 12/09/17 11:45 Temperature Pulse Rate 113 H 114 H 114 H Respiratory Rate 18 18 18 Pulse Oximetry 97 97 97 12/09/17 12:00 12/09/17 12:07 12/09/17 12:15 Temperature Pulse Rate 114 H 116 H Respiratory Rate 18 18 18 Pulse Oximetry 97 97 97 12/09/17 14:00 Temperature Pulse Rate 105 H Respiratory Rate Pulse Oximetry Intake & Output 12/08/17 12/09/17 12/09/17 19:59 06:59 18:59 Intake Total 150 / 150 Output Total 3000 / 3000 Balance -2850 / -2850 Weight Intake: IV 150 / 150 Versed Inj 50 mg In 50 ml @ 2 50 / 50 MG/HR 2 mls/hr IV.CONT TITRATE PRN Rx#:[id number] Intralipid 20% Inj 250 ML @ 31. 25 mls/hr IV.SIG Q24H [facility] Rx#: [id number] Mycamine Inj 100 MG In NS Inj 100 / 100 100 ML @ 100 mls/hr IV.SIG Q24H [facility] Rx#:[id number] Zosyn 2.25 GM Premix 50 ML @ 100 mls/hr IV.SIG Q8H [facility] Rx#: [id number] Sodium Chloride 23.4% Inj 5.5 MEQ Sodium Acetate Inj 29.5 MEQ KCl Inj 20 MEQ Calcium Chloride Inj 4.5 MEQ MVI-12 Inj 10 ML Folvite Inj 1 MG In Clinimix 5%/D20W Inj 2,000 ML @ 65 mls/hr IV.SIG Q24H [facility] Rx#: [id number] fentaNYL 10 mcg/mL Premix Drip 0 / 0 2,500 mcg In 250 ml @ 50 MCG/HR 5 mls/hr IV.SIG TITRATE PRN Rx #:[id number] Tube Feeding Tube Irrigant Output: Urine Stool Pleural Fluid Hemodialysis Amount 3000 / 3000 Gastric Drainage Right Nare Nasogastric Tube Wound Drainage # 1 Right Abdomen # 2 Right Abdomen Other: Date of Last Bowel Movement 12/09/17 Narrative: Sedated Orally intubated Abd: soft; dressings intact; JP1 with serous fluid; JP2 with serosanguineous fluid J tube with TF BUE edema - Urinary Catheter Management Indwelling Temp Sensing Catheter Cath placed during this visit: no Assessment and Plan - Assessment (1) JACLYN (acute kidney injury) Code(s): N17.9 - Acute kidney failure, unspecified Status: Acute Plan: Anuric renal failure. He has become dialysis dependent. Dialysis every 2nd day. 3 L of ultrafiltration today tolerated well Monitor for recovery. Continue supportive care. Avoid nephrotoxic agents. Dr. Robertson to follow (2) Acute respiratory failure Code(s): J96.00 - Acute respiratory failure, unspecified whether with hypoxia or hypercapnia Status: Acute Qualifiers: Respiratory failure complication: hypoxia Qualified Code(s): J96.01 - Acute respiratory failure with hypoxia Plan: on the ventilator. Possible aspiration. (3) Gastric perforation Code(s): K25.5 - Chronic or unspecified gastric ulcer with perforation Status : Acute Plan: s/p surgery. Subtotal gastrectomy here. In [facility] he had: Dinh-en-y esophagojejunostomy, feeding jejunostomy placement, diagnostic EGD, primary fascial closure. Date of procedure: 11/28/17 (4) Candidemia Code(s): B37.7 - Candidal sepsis Status: Acute Plan: On Micafungin. Patient is also on Zosyn. Dose medications appropriate to renal function. (5) DVT (deep venous thrombosis) Code(s): I82.409 - Acute embolism and thrombosis of unspecified deep veins of unspecified lower extremity Status: Acute Plan: On heparin drip. DVT of bilateral upper extremities. (6) Anemia Code(s): D64.9 - Anemia, unspecified Status: Acute Plan: Hemoglobin is 7.2. Could be multifactorial. Rule out bleeding. Also could be due to renal failure. Patient to receive 1 unit PRBCs during dialysis today.
--- NOTE | 2017-12-09 15:50 | P.PNGS ---
Subjective Interval history: DAILY PROGRESS NOTE FOR SURGICAL ATTENDING, DR. MARGAUX MAGANA Patient remains on the ventilator Discussed with Dr. Jensen critical care Physical Exam Vital signs: Vital Signs 12/08/17 17:00 12/08/17 17:15 12/08/17 17:30 Temperature Pulse Rate 113 H 113 H 113 H Respiratory Rate 18 20 18 Pulse Oximetry 97 97 97 12/08/17 17:45 12/08/17 18:00 12/08/17 18:15 Temperature 99.3 F Pulse Rate 113 H 114 H 121 H Respiratory Rate 18 17 43 H Pulse Oximetry 97 97 97 12/08/17 18:30 12/08/17 20:00 12/08/17 20:56 Temperature 99.6 F Pulse Rate 118 H 116 H Respiratory Rate 18 19 20 Pulse Oximetry 97 97 96 12/08/17 22:00 12/08/17 23:50 12/09/17 00:00 Temperature 99.7 F H Pulse Rate 116 H 118 H Respiratory Rate 18 19 Pulse Oximetry 96 97 12/09/17 00:15 12/09/17 00:30 12/09/17 00:45 Temperature Pulse Rate 118 H 118 H 116 H Respiratory Rate 18 18 18 Pulse Oximetry 97 96 96 12/09/17 01:27 EDT 12/09/17 01:00 EST 12/09/17 01:15 EST Temperature 98.6 F Pulse Rate 117 H 116 H 114 H Respiratory Rate 18 18 Pulse Oximetry 96 97 12/09/17 01:30 EST 12/09/17 01:45 EST 12/09/17 02:00 Temperature Pulse Rate 112 H 114 H 112 H Respiratory Rate 18 18 18 Pulse Oximetry 97 97 97 12/09/17 02:15 12/09/17 02:30 12/09/17 02:45 Temperature Pulse Rate 116 H 115 H 120 H Respiratory Rate 18 18 18 Pulse Oximetry 96 97 97 12/09/17 03:00 12/09/17 03:15 12/09/17 03:30 Temperature Pulse Rate 119 H 117 H 116 H Respiratory Rate 18 19 18 Pulse Oximetry 97 97 97 12/09/17 03:45 12/09/17 04:00 12/09/17 04:02 Temperature 99.7 F H Pulse Rate 116 H 116 H Respiratory Rate 18 18 18 Pulse Oximetry 96 97 97 12/09/17 04:15 12/09/17 04:30 12/09/17 04:45 Temperature Pulse Rate 114 H 114 H 112 H Respiratory Rate 18 18 18 Pulse Oximetry 97 97 97 12/09/17 05:00 12/09/17 05:15 12/09/17 05:30 Temperature Pulse Rate 112 H 112 H 111 H Respiratory Rate 18 18 18 Pulse Oximetry 97 97 97 12/09/17 05:45 12/09/17 06:00 12/09/17 06:15 Temperature Pulse Rate 110 H 108 H 109 H Respiratory Rate 18 18 18 Pulse Oximetry 97 97 97 12/09/17 06:30 12/09/17 06:45 12/09/17 07:00 Temperature Pulse Rate 108 H 106 H 106 H Respiratory Rate 18 18 18 Pulse Oximetry 97 97 98 12/09/17 07:15 12/09/17 07:30 12/09/17 07:31 Temperature Pulse Rate 105 H 109 H Respiratory Rate 18 18 18 Pulse Oximetry 97 97 97 12/09/17 07:45 12/09/17 08:00 12/09/17 08:15 Temperature 99.8 F H Pulse Rate 109 H 108 H 108 H Respiratory Rate 18 18 18 Pulse Oximetry 97 97 97 12/09/17 08:30 12/09/17 08:45 12/09/17 09:00 Temperature Pulse Rate 109 H 109 H 110 H Respiratory Rate 18 18 18 Pulse Oximetry 97 97 97 12/09/17 09:15 12/09/17 09:30 12/09/17 09:45 Temperature Pulse Rate 111 H 110 H 113 H Respiratory Rate 18 18 18 Pulse Oximetry 97 97 96 12/09/17 10:00 12/09/17 10:15 12/09/17 10:30 Temperature Pulse Rate 117 H 117 H 117 H Respiratory Rate 18 18 18 Pulse Oximetry 96 95 96 12/09/17 10:45 12/09/17 11:00 12/09/17 11:15 Temperature Pulse Rate 117 H 115 H 113 H Respiratory Rate 18 18 18 Pulse Oximetry 96 96 97 12/09/17 11:30 12/09/17 11:45 12/09/17 12:00 Temperature Pulse Rate 114 H 114 H 114 H Respiratory Rate 18 18 18 Pulse Oximetry 97 97 97 12/09/17 12:07 12/09/17 12:15 12/09/17 14:00 Temperature Pulse Rate 116 H 105 H Respiratory Rate 18 18 Pulse Oximetry 97 97 Intake & Output 12/08/17 12/09/17 12/09/17 19:59 06:59 18:59 Intake Total 150 / 150 Output Total 3000 / 3000 Balance -2850 / -2850 Weight Intake: IV 150 / 150 Versed Inj 50 mg In 50 ml @ 2 50 / 50 MG/HR 2 mls/hr IV.CONT TITRATE PRN Rx#:[id number] Intralipid 20% Inj 250 ML @ 31. 25 mls/hr IV.SIG Q24H [facility] Rx#: [id number] Mycamine Inj 100 MG In NS Inj 100 / 100 100 ML @ 100 mls/hr IV.SIG Q24H [facility] Rx#:[id number] Zosyn 2.25 GM Premix 50 ML @ 100 mls/hr IV.SIG Q8H [facility] Rx#: [id number] Sodium Chloride 23.4% Inj 5.5 MEQ Sodium Acetate Inj 29.5 MEQ KCl Inj 20 MEQ Calcium Chloride Inj 4.5 MEQ MVI-12 Inj 10 ML Folvite Inj 1 MG In Clinimix 5%/D20W Inj 2,000 ML @ 65 mls/hr IV.SIG Q24H [facility] Rx#: [id number] fentaNYL 10 mcg/mL Premix Drip 0 / 0 2,500 mcg In 250 ml @ 50 MCG/HR 5 mls/hr IV.SIG TITRATE PRN Rx #:[id number] Tube Feeding Tube Irrigant Output: Urine Stool Pleural Fluid Hemodialysis Amount 3000 / 3000 Gastric Drainage Right Nare Nasogastric Tube Wound Drainage # 1 Right Abdomen # 2 Right Abdomen Other: Date of Last Bowel Movement 12/09/17 Narrative: Sedated intubated Tolerating tube feeds Mildly edematous JPs draining serosanguineous fluid - Urinary Catheter Management Indwelling Temp Sensing Catheter Cath placed during this visit: no Results - Labs 12/09/17 04:20 12/09/17 04:20 Laboratory Results - last 24 hr 12/08/17 12/08/17 12/09/17 17:15 20:15 00:00 WBC RBC Hgb Hct MCV MCH MCHC RDW Plt Count MPV Prelim Diff (Auto) Neut % (Auto) Lymph % (Auto) [place] % (Auto) Eos % (Auto) Baso % (Auto) Neut # (Auto) Lymph # (Auto) [place] # (Auto) Eos # (Auto) Baso # (Auto) WBC Differential Diff Scan Differential Comment Platelet Estimate Platelet Morphology Target Cells Ovalocytes Sodium Potassium Chloride Carbon Dioxide Anion Gap BUN Creatinine Estimated GFR POC Glucose 156 H 165 H 133 H Random Glucose Calcium Phosphorus Albumin Stl C.difficile DNA Amp St C. diff Tox Epid 027 12/09/17 12/09/17 12/09/17 04:20 04:20 04:25 WBC 19.1 H RBC 2.37 L Hgb 7.3 L Hct 21.3 L MCV 89.9 MCH 30.8 MCHC 34.3 RDW 15.4 Plt Count 481 H MPV 9.3 Prelim Diff (Auto) Slide review pending Neut % (Auto) 82.0 H Lymph % (Auto) 5.5 L [place] % (Auto) 10.7 H Eos % (Auto) 1.1 Baso % (Auto) 0.7 Neut # (Auto) 15.6 H Lymph # (Auto) 1.1 [place] # (Auto) 2.0 H Eos # (Auto) 0.2 Baso # (Auto) 0.1 WBC Differential . Diff Scan Auto diff confirmed Differential Comment . Platelet Estimate High H Platelet Morphology Normal Target Cells 1+ H Ovalocytes 1+ H Sodium 135 L Potassium 5.3 H Chloride 96 L Carbon Dioxide 23.3 Anion Gap 16 H BUN 118 H Creatinine 8.94 H Estimated GFR 8 L POC Glucose 141 H Random Glucose 149 H Calcium 8.0 L Phosphorus 8.5 H D Albumin 1.6 L Stl C.difficile DNA Amp St C. diff Tox Epid 027 12/09/17 12/09/17 12/09/17 05:30 09:31 12:19 WBC RBC Hgb Hct MCV MCH MCHC RDW Plt Count MPV Prelim Diff (Auto) Neut % (Auto) Lymph % (Auto) [place] % (Auto) Eos % (Auto) Baso % (Auto) Neut # (Auto) Lymph # (Auto) [place] # (Auto) Eos # (Auto) Baso # (Auto) WBC Differential Diff Scan Differential Comment Platelet Estimate Platelet Morphology Target Cells Ovalocytes Sodium Potassium Chloride Carbon Dioxide Anion Gap BUN Creatinine Estimated GFR POC Glucose 159 H 144 H Random Glucose Calcium Phosphorus Albumin Stl C.difficile DNA Amp Negative St C. diff Tox Epid 027 Negative - Imaging Imaging: ITS Impressions Head MRI 12/03/17 00:00 CONCLUSION: 1. Minimal nonspecific periventricular white matter changes. 2. No restricted diffusion to suggest an acute ischemic event. 3. No evidence for significant ischemic changes. Abdomen/Pelvis CT 12/04/17 00:02 CONCLUSION: 1. Interim midline laparotomy and gastrectomy with apparent Dinh-en-Y. 2. Bowel gas pattern consistent with obstruction of the duodenum and proximal jejunum. I don't see a mass. There does seem to be some jejunal wall thickening around the jejunostomy tube. 3. Wall thickening and mucosal enhancement of the colon consistent with moderate severity colitis. C. difficile colitis would be in the differential. 4. Solid organs are within normal limits. 5. Small ascites. Also diffuse body wall edema/anasarca. No perceptible hemorrhage. Chest CT 12/04/17 00:06 CONCLUSION: 1. Left greater than right pleural effusions and basilar atelectasis. 2. No hemorrhage or hematoma demonstrated. 3. Distended and fluid-filled esophagus. No wall thickening. Patient is status post gastrectomy. Nasogastric tube is at the GE junction. 4. Body wall edema/anasarca. Chest X-Ray 12/07/17 00:00 CONCLUSION: Interval improvement. Abdomen X-Ray 12/08/17 00:00 CONCLUSION: 1. 2 left-sided abdominal catheters. 2. Nonspecific bowel gas pattern. Assessment and Plan - Assessment (1) Gastric perforation Code(s): K25.5 - Chronic or unspecified gastric ulcer with perforation Status : Acute Plan: 47yo male s/p Exlap and gastrectomy for gastric perforation, s/p esophagojejunostomy at [facility] -Intubated---vent per CCM -HD today -Continue wet to dry daily to midline incision BID and PRN as well as Silvadene to lateral wounds on RIGHT side -Continue abdominal binder -Continue NG to LIWS -TF via J tube ---increase to 30 cc/hr -Continue routine ZAINAB care - Attending Attestation NOTE FOR SURGICAL ATTENDING, DR. MARGAUX MAGANA I agree with above assessment and plan. The exam, history, and the medical decision-making described in the above note were completed with the assistance of the mid-level provider. I reviewed and agree with the findings presented. I attest that I had a [id number] encounter with the patient on the same day, and personally performed and documented my assessment and findings in the medical record. The following services were provided during this hospital visit: Chart data review, vital sign assessments/reviewing monitor data Review of consultations notes if present. Medication orders/review and/or management Ordering and/or reviewing lab tests Ordering and/or interpreting/reviewing x-rays and/or diagnostic studies Care of the patient and discussion of the patient with the care team Documentation time To help prompt me to consider important information that might be impacting today's encounter and assessment, Information from prior notes written by myself or my colleagues may have been "brought forward/copy and pasted" into today's note.
[2017-12-09] MEDS: hydrALAZINE HCl Inj 20 MG/ML Vial IV.PUSH PRN (20:05)
[2017-12-10] MEDS: Oral Hygiene Kit OROPHARYNG SCH ×10 (00:33→23:23)
[2017-12-10] MEDS: Insulin NovoLOG Aspart Correctional Sugar Inj SQ SCH ×6 (00:41→20:43)
[2017-12-10] MEDS: fentaNYL 10 mcg/mL Premix Drip 2,500 MCG/250 ML BAG IV.SIG PRN ×2 (03:54→16:10)
[2017-12-10] MEDS: Midazolam 50 MG/50 ML Inj 50 MG/50 ML BAG IV.CONT PRN ×3 (04:22→14:05)
[2017-12-10] MEDS: hydrALAZINE HCl Inj 20 MG/ML Vial IV.PUSH PRN (04:42)
[2017-12-10 05:41] LABS: Albumin 1.5 g/dL (3.4-5.0); Calcium 7.9 mg/dL (8.5-10.1); Carbon Dioxide 24.8 meq/L (21.0-32.0); Phosphorus 6.6 mg/dL (2.5-4.9); Potassium 4.4 meq/L (3.5-5.1)
[2017-12-10 05:44] LABS: Baso # (Auto) 0.1 th/mm3 (0.0-0.2); Baso % (Auto) 0.7 % (0.0-2.0); Eos # (Auto) 0.3 th/mm3 (0.0-0.4); Eos % (Auto) 1.3 % (0.0-4.0); Hematocrit 21.8 % (39.0-51.0); Hemoglobin 7.4 gm/dL (13.0-17.0); Lymph # (Auto) 1.1 th/mm3 (1.0-4.8); Lymph % (Auto) 5.5 % (9.0-44.0); Mean Corpuscular HGB Conc 33.9 % (32.0-36.0); Mean Corpuscular Hemoglobin 30.6 pg (27.0-34.0); Mean Corpuscular Volume 90.1 fL (80.0-100.0); Mean Platelet Volume 9.7 fL (7.0-11.0); Mono # (Auto) 2.7 th/mm3 (0.0-0.9); Neut # (Auto) 16.6 th/mm3 (1.8-7.7); Neut % (Auto) 79.5 % (16.0-70.0); Platelet Count 433 th/mm3 (150-450); Red Blood Count 2.42 mil/mm3 (4.50-5.90); Red Cell Distribution Width 15.8 % (11.6-17.2); White Blood Count 20.8 th/mm3 (4.0-11.0)
[2017-12-10] MEDS: Piperacil/Tazo 2.25 GM Premix 50 ML IV.SIG SCH ×3 (06:15→21:33)
[2017-12-10] MEDS: Chlorhexidine 0.12% Oral Kit 15 ML UDC OROPHARYNG SCH ×4 (07:24→20:47)
[2017-12-10] MEDS: Calcium Acetate 667 MG Capsule PO SCH ×3 (08:27→18:02)
[2017-12-10] MEDS: hydrALAZINE 50 MG Tablet PO SCH ×3 (08:27→18:02)
[2017-12-10] MEDS: Pantoprazole Inj 40 MG Vial IV.PUSH SCH (08:28)
[2017-12-10 09:38] LABS: Eosinophils 1 % (0-4); Lymphocytes 8 % (9-44); Metamyelocytes 2 % (0-1); Monocytes 6 % (0-8); Myelocytes 2 % (0-0); Platelet Estimate Normal (Normal); Platelet Morphology Normal (Normal); Tallied Nucleated RBC 1 (0-0)
[2017-12-10] MEDS: Heparin 10,000 UNITS/10 ML Vial (for IV use) OTHER PRN (10:24)
--- NOTE | 2017-12-10 11:16 | P.PNNP ---
Subjective Interval history: patient remains anuric. Seen during dialysis today. On 3K, UF goal is about 3 liters. He is on the vent. Not hypotensive. Patient is poorly responsive. Physical Exam Vital signs: Vital Signs 12/09/17 11:15 12/09/17 11:30 12/09/17 11:45 Temperature Pulse Rate 113 H 114 H 114 H Respiratory Rate 18 18 18 Pulse Oximetry 97 97 97 12/09/17 12:00 12/09/17 12:07 12/09/17 12:15 Temperature Pulse Rate 114 H 116 H Respiratory Rate 18 18 18 Pulse Oximetry 97 97 97 12/09/17 14:00 12/09/17 16:00 12/09/17 16:34 Temperature 100.2 F H Pulse Rate 105 H 111 H Respiratory Rate 19 18 Pulse Oximetry 98 97 12/09/17 18:00 12/09/17 19:50 12/09/17 20:00 Temperature 99.7 F H Pulse Rate 113 H 110 H Respiratory Rate 19 20 Pulse Oximetry 97 98 12/09/17 22:00 12/09/17 23:50 12/10/17 00:00 Temperature 99.7 F H Pulse Rate 121 H 119 H Respiratory Rate 20 18 Pulse Oximetry 96 96 12/10/17 02:00 12/10/17 04:00 12/10/17 04:14 Temperature 99.8 F H Pulse Rate 123 H 121 H Respiratory Rate 27 H 21 Pulse Oximetry 97 97 12/10/17 06:00 12/10/17 08:00 12/10/17 09:00 Temperature 100.4 F H Pulse Rate 123 H 120 H 124 H Respiratory Rate 24 20 Pulse Oximetry 98 98 12/10/17 09:39 Temperature Pulse Rate Respiratory Rate 21 Pulse Oximetry 98 Intake & Output 12/09/17 12/10/17 12/10/17 18:59 06:59 18:59 Intake Total 658 / 658 2860 / 2860 200 / 200 Output Total 3525 / 3525 765 / 765 Balance -2867 / -2867 2095 / 2095 200 / 200 Weight 80.4 kg Intake: IV 200 / 200 2350 / 2350 200 / 200 Versed Inj 50 mg In 50 ml @ 2 50 / 50 100 / 100 50 / 50 MG/HR 2 mls/hr IV.CONT TITRATE PRN Rx#:[id number] Intralipid 20% Inj 250 ML @ 31. 250 / 250 25 mls/hr IV.SIG Q24H [facility] Rx#: [id number] Mycamine Inj 100 MG In NS Inj 100 / 100 100 / 100 100 ML @ 100 mls/hr IV.SIG Q24H [facility] Rx#:[id number] Zosyn 2.25 GM Premix 50 ML @ 50 / 50 50 / 50 50 / 50 100 mls/hr IV.SIG Q8H [facility] Rx#: [id number] Sodium Chloride 23.4% Inj 5.5 1700 / 1700 MEQ Sodium Acetate Inj 29.5 MEQ KCl Inj 20 MEQ Calcium Chloride Inj 4.5 MEQ MVI-12 Inj 10 ML Folvite Inj 1 MG In Clinimix 5%/D20W Inj 2,000 ML @ 65 mls/hr IV.SIG Q24H [facility] Rx#: [id number] fentaNYL 10 mcg/mL Premix Drip 0 / 0 250 / 250 2,500 mcg In 250 ml @ 50 MCG/HR 5 mls/hr IV.SIG TITRATE PRN Rx #:[id number] Tube Feeding 458 / 458 510 / 510 Output: Urine 0 / 0 Stool 0 / 0 400 / 400 Hemodialysis Amount 3000 / 3000 Gastric Drainage 0 / 0 Right Nare Nasogastric Tube 0 / 0 Wound Drainage 275 / 275 355 / 355 # 1 Right Abdomen 25 / 25 5 / 5 # 2 Right Abdomen 250 / 250 350 / 350 Chest Tube Drainage 250 / 250 10 / 10 #1 Left Pleural 250 / 250 10 / 10 Other: Date of Last Bowel Movement 12/09/17 12/10/17 12/10/17 # Incontinent Bowel Movements 2 Narrative: Sedated intubated, on mechanical ventilation. On TF: 40 ml/hour. On TPN at 65 ml/hour. Chest: vented breath sounds heard bilaterally. Abd: midline surgical incision. J tube connected to tube feeding. J-P drains in place. Abdomen is distended. Dependent edema, upper extremity edema. - Urinary Catheter Management Indwelling Temp Sensing Catheter Cath placed during this visit: no Assessment and Plan - Assessment (1) JACLYN (acute kidney injury) Code(s): N17.9 - Acute kidney failure, unspecified Status: Acute Plan: Anuric renal failure. He has become dialysis dependent. Dialysis every 2nd day. Monitor for recovery. Continue supportive care. Avoid nephrotoxic agents. (2) Acute respiratory failure Code(s): J96.00 - Acute respiratory failure, unspecified whether with hypoxia or hypercapnia Status: Acute Qualifiers: Respiratory failure complication: hypoxia Qualified Code(s): J96.01 - Acute respiratory failure with hypoxia Plan: on the ventilator. Possible aspiration. (3) Gastric perforation Code(s): K25.5 - Chronic or unspecified gastric ulcer with perforation Status : Acute Plan: s/p surgery. Subtotal gastrectomy in [place]. In [facility] he had: Dinh-en-y esophagojejunostomy, feeding jejunostomy placement, diagnostic EGD, primary fascial closure. Date of procedure: 11/28/17 (4) Candidemia Code(s): B37.7 - Candidal sepsis Status: Acute Plan: On Micafungin. Patient is also on Zosyn. Dose medications appropriate to renal function. (5) DVT (deep venous thrombosis) Code(s): I82.409 - Acute embolism and thrombosis of unspecified deep veins of unspecified lower extremity Status: Acute Plan: On heparin drip. DVT of bilateral upper extremities. (6) Anemia Code(s): D64.9 - Anemia, unspecified Status: Acute Plan: Could be multifactorial. Rule out bleeding. Also could be due to renal failure. Transfuse prn. May need to start Epogen.
--- NOTE | 2017-12-10 11:55 | P.PNID ---
Subjective Remarks: Patient reintubated 12/04 for acute hypoxic respiratory failure. Currently sedated on the ventilator. Receiving hemodialysis. Low-grade fever. Temp 100.1. High-volume stools Via rectal tube. Left-sided chest tube has decreased output. Peritoneum and pleural fluid culture has no growth. Discussed with RN. Antibiotics: Micafungin Zosyn Allergies/Adverse Reactions: Allergies No Known Allergies Allergy (Verified 11/22/17 02:38) Objective Vital Signs 12/09/17 12:00 12/09/17 12:07 12/09/17 12:15 Temperature Pulse Rate 114 H 116 H Respiratory Rate 18 18 18 Pulse Oximetry 97 97 97 12/09/17 14:00 12/09/17 16:00 12/09/17 16:34 Temperature 100.2 F H Pulse Rate 105 H 111 H Respiratory Rate 19 18 Pulse Oximetry 98 97 12/09/17 18:00 12/09/17 19:50 12/09/17 20:00 Temperature 99.7 F H Pulse Rate 113 H 110 H Respiratory Rate 19 20 Pulse Oximetry 97 98 12/09/17 22:00 12/09/17 23:50 12/10/17 00:00 Temperature 99.7 F H Pulse Rate 121 H 119 H Respiratory Rate 20 18 Pulse Oximetry 96 96 12/10/17 02:00 12/10/17 04:00 12/10/17 04:14 Temperature 99.8 F H Pulse Rate 123 H 121 H Respiratory Rate 27 H 21 Pulse Oximetry 97 97 12/10/17 06:00 12/10/17 08:00 12/10/17 09:00 Temperature 100.4 F H Pulse Rate 123 H 120 H 124 H Respiratory Rate 24 20 Pulse Oximetry 98 98 12/10/17 09:39 12/10/17 10:00 Temperature Pulse Rate 123 H Respiratory Rate 21 Pulse Oximetry 98 Intake & Output 12/09/17 12/10/17 12/10/17 18:59 06:59 18:59 Intake Total 658 / 658 2860 / 2860 200 / 200 Output Total 3525 / 3525 765 / 765 Balance -2867 / -2867 5 / 2095 200 / 200 Weight 80.4 kg Intake: IV 200 / 200 2350 / 2350 200 / 200 Versed Inj 50 mg In 50 ml @ 2 50 / 50 100 / 100 50 / 50 MG/HR 2 mls/hr IV.CONT TITRATE PRN Rx#:[id number] Intralipid 20% Inj 250 ML @ 31. 250 / 250 25 mls/hr IV.SIG Q24H [facility] Rx#: [id number] Mycamine Inj 100 MG In NS Inj 100 / 100 100 / 100 100 ML @ 100 mls/hr IV.SIG Q24H [facility] Rx#:[id number] Zosyn 2.25 GM Premix 50 ML @ 50 / 50 50 / 50 50 / 50 100 mls/hr IV.SIG Q8H [facility] Rx#: [id number] Sodium Chloride 23.4% Inj 5.5 1700 / 1700 MEQ Sodium Acetate Inj 29.5 MEQ KCl Inj 20 MEQ Calcium Chloride Inj 4.5 MEQ MVI-12 Inj 10 ML Folvite Inj 1 MG In Clinimix 5%/D20W Inj 2,000 ML @ 65 mls/hr IV.SIG Q24H [facility] Rx#: [id number] fentaNYL 10 mcg/mL Premix Drip 0 / 0 250 / 250 2,500 mcg In 250 ml @ 50 MCG/HR 5 mls/hr IV.SIG TITRATE PRN Rx #:[id number] Tube Feeding 458 / 458 510 / 510 Output: Urine 0 / 0 Stool 0 / 0 400 / 400 Hemodialysis Amount 3000 / 3000 Gastric Drainage 0 / 0 Right Nare Nasogastric Tube 0 / 0 Wound Drainage 275 / 275 355 / 355 # 1 Right Abdomen 25 / 25 5 / 5 # 2 Right Abdomen 250 / 250 350 / 350 Chest Tube Drainage 250 / 250 10 / 10 #1 Left Pleural 250 / 250 10 / 10 Other: Date of Last Bowel Movement 12/09/17 12/10/17 12/10/17 # Incontinent Bowel Movements 2 12/08/17 18:25 Fluid - Peritoneal fluid Gram Stain - Final 12/08/17 18:25 Fluid - Peritoneal fluid Body Fluid Culture - Preliminary No growth in 48 hours 12/07/17 10:10 Fluid - Pleural fluid Gram Stain - Final 12/07/17 10:10 Fluid - Pleural fluid Body Fluid Culture - Final No growth in 72 hours (aerobically and anaerobically ) 12/07/17 10:10 Fluid - Pleural fluid Fungal Smear - Final No fungal elements seen 12/07/17 10:10 Fluid - Pleural fluid Fungal Culture - Pending 12/07/17 10:10 Fluid - Pleural fluid Acid Fast Bacilli Smear - Pending 12/07/17 10:10 Fluid - Pleural fluid Mycobacterial Culture - Pending Lab - Hematology Results 12/09/17 12/10/17 04:20 05:00 WBC 19.1 H 20.8 H RBC 2.37 L 2.42 L Hgb 7.3 L 7.4 L Hct 21.3 L 21.8 L MCV 89.9 90.1 MCH 30.8 30.6 MCHC 34.3 33.9 RDW 15.4 15.8 Plt Count 481 H 433 MPV 9.3 9.7 Prelim Diff (Auto) Slide review pending Slide review pending Neut % (Auto) 82.0 H 79.5 H Lymph % (Auto) 5.5 L 5.5 L [place] % (Auto) 10.7 H 13.0 H Eos % (Auto) 1.1 1.3 Baso % (Auto) 0.7 0.7 Neut # (Auto) 15.6 H 16.6 H Lymph # (Auto) 1.1 1.1 [place] # (Auto) 2.0 H 2.7 H Eos # (Auto) 0.2 0.3 Baso # (Auto) 0.1 0.1 WBC Differential . Manual diff final Diff Scan Auto diff confirmed Seg Neuts % (Manual) 79 H Band Neuts % (Manual) 2 Lymphocytes % (Manual) 8 L Monocytes % (Manual) 6 Eosinophils % (Manual) 1 Metamyelocytes % (Man) 2 H Myelocytes % (Man) 2 H Abs Neuts (Manual) 17.7 H Nucleated RBCs/100 WBC 1 H Differential Comment . . Platelet Estimate High H Normal Platelet Morphology Normal Normal Target Cells 1+ H Ovalocytes 1+ H Lab - Chemistry Results 12/08/17 12/08/17 12/08/17 14:58 17:15 20:15 Sodium Potassium Chloride Carbon Dioxide Anion Gap BUN Creatinine Estimated GFR POC Glucose 144 H 156 H 165 H Random Glucose Calcium Phosphorus Albumin 12/09/17 12/09/17 12/09/17 00:00 04:20 04:25 Sodium 135 L Potassium 5.3 H Chloride 96 L Carbon Dioxide 23.3 Anion Gap 16 H BUN 118 H Creatinine 8.94 H Estimated GFR 8 L POC Glucose 133 H 141 H Random Glucose 149 H Calcium 8.0 L Phosphorus 8.5 H D Albumin 1.6 L 12/09/17 12/09/17 12/09/17 09:31 12:19 15:44 Sodium Potassium Chloride Carbon Dioxide Anion Gap BUN Creatinine Estimated GFR POC Glucose 159 H 144 H 170 H Random Glucose Calcium Phosphorus Albumin 12/09/17 12/10/17 12/10/17 19:56 00:20 04:00 Sodium Potassium Chloride Carbon Dioxide Anion Gap BUN Creatinine Estimated GFR POC Glucose 123 H 173 H 135 H Random Glucose Calcium Phosphorus Albumin 12/10/17 12/10/17 12/10/17 05:00 07:38 11:39 Sodium 137 Potassium 4.4 D Chloride 98 Carbon Dioxide 24.8 Anion Gap 14 BUN 96 H Creatinine 7.15 H Estimated GFR 10 L POC Glucose 155 H 156 H Random Glucose 151 H Calcium 7.9 L Phosphorus 6.6 H D Albumin 1.5 L Imaging: ITS Impressions Head MRI 12/03/17 00:00 CONCLUSION: 1. Minimal nonspecific periventricular white matter changes. 2. No restricted diffusion to suggest an acute ischemic event. 3. No evidence for significant ischemic changes. Abdomen/Pelvis CT 12/04/17 00:02 CONCLUSION: 1. Interim midline laparotomy and gastrectomy with apparent Dinh-en-Y. 2. Bowel gas pattern consistent with obstruction of the duodenum and proximal jejunum. I don't see a mass. There does seem to be some jejunal wall thickening around the jejunostomy tube. 3. Wall thickening and mucosal enhancement of the colon consistent with moderate severity colitis. C. difficile colitis would be in the differential. 4. Solid organs are within normal limits. 5. Small ascites. Also diffuse body wall edema/anasarca. No perceptible hemorrhage. Chest CT 12/04/17 00:06 CONCLUSION: 1. Left greater than right pleural effusions and basilar atelectasis. 2. No hemorrhage or hematoma demonstrated. 3. Distended and fluid-filled esophagus. No wall thickening. Patient is status post gastrectomy. Nasogastric tube is at the GE junction. 4. Body wall edema/anasarca. Chest X-Ray 12/07/17 00:00 CONCLUSION: Interval improvement. Abdomen X-Ray 12/08/17 00:00 CONCLUSION: 1. 2 left-sided abdominal catheters. 2. Nonspecific bowel gas pattern. Physical Exam: PHYSICAL EXAMINATION: GENERAL: Patient on the vent. Sedated. HEENT: No icterus. NECK: Supple without adenopathy or swelling. LUNGS: Decreased breath sounds. Left chest tube has serous drainage. HEART: Regular S1, S2. No audible murmur. ABDOMEN: Positive bowel sounds. ZAINAB drains x exits the RLQ abdomen and has serosanguineous drainage EXTREMITIES: No clubbing or cyanosis. Non pitting edema of b/l upper extremities. SKIN: No diffuse rash. NEUROLOGIC: unable to assess, intubated. PSYCHIATRIC: Unable to assess. Assessment and Plan - Plan IMPRESSION: 1. Candidemia following gastric perforation and gastric ischemia. Blood culture at [facility] in [place] on 11/26 had Starr glabrata. Repeat blood culture is negative. 2. Status post abdominal surgery. 3. Acute respiratory failure. left pleural effusion. 4. Aspiration. 5. Acute kidney disease. 5. Recent cardiac arrest. 6. Leukocytosis. White blood cell count remains elevated. abx associated diarrhea, bowel wall thickening c.diff neg 2/2 RECOMMENDATIONS: 1. Continue micafungin for candidemia. 2. Continue piperacillin/tazobactam. 3. Monitor white blood cell count. 4 Monitor temperature.
--- NOTE | 2017-12-10 15:49 | P.DIET ---
Nutritional Evaluation Type of nutrition evaluation: follow-up Nutrition consult regarding: Tube Feeding, TPN/PPN [place] [facility] [place] Re[place]ad[place] transfer from [facility]. Subjective Subjective Comments: Assessment here uses HT from previous admission 190.5cm(75 inches). Objective - Diagnosis Gastroenteritis - Objective % IBW: 107 (IBW = 196#) Body Weight Used for Calculations: Actual (95.3 kg) Energy Needs - Lower Range (kCal/kg): 28 Energy Needs - Upper Range (kCal/kg): 32 Lower Limit kCal/kg (kCals): 2,668 Upper Limit kCal/kg (kCals): 3,050 Lower Limit Protein Factor (Grams per Kg): 1.2 Upper Limit Protein Factor (Grams per Kg): 1.5 Lower Protein Needs (Protein): 114 Upper Protein Needs (Protein): 143 Dietitian Reviewed in Medical Record: Curent medications, Intake & Output, Labs , Medical history, TPN/PPN, Tube feeding Diet Order: NPO Objective Comments: see recent extensive hx in H&P Labs: TG 427(12/01), BUN/creat 96/7.15, estGFR 10, Phosphorus 6.6, LFTs elev, glucose 151, Albumin 1.5 Meds include: Phoslo, Novolog, Zofran, Protonix +BM Feeding - Current Tube Feeding Tube Feeding Product: Nepro Tube Feeding Rate: 40 (mls/hr) Tube Feeding Route: jejunostomy Current kCals Provided by Tube Feedin,728 Current Protein Provided by Tube Feeding (gPRO): 78 Current Free H2O Provided (m/l): 698 - Current TPN/PPN Current TPN: Clinimix 5/20 Current TPN/PPN Rate (ml/hr): 65 Amino Acid and Dextrose Current kCals Provided: 1,373 Amino Acid and Dextrose Current Protein Provided: 78 Current Lipid Concentration: 20% Current Lipids Rate: 250 mls daily over 8 hours Current kCal Provided by TPN/PPN: 1,873 Assessment Assessment: Pt continues at high nutritional risk r/t Clinical Status and need for alternative method of nutrition. Pt currently dialysis dependent. PT tolerating Nepro TF @ 40 mls/hr. Rec goal rate for Nepro TF @ 65ml/hr to offer 2808 kcal, 126g protein and 1134ml free water. Rec to D/C current Lipids-noted TG >400 12/01. Rec repeat TG level. Rec weaning TPN per protocol when TF tolerated @ Rec goal rate 65ml/hr Recommendations: 1. Rec goal rate for Nepro TF @ 65ml/hr 2. Rec to D/C current Lipids-noted TG >400 12/01 3. Rec repeat TG level 4. Rec weaning TPN per protocol when TF tolerated @ Rec goal rate 65ml/hr Dietitian to Monitor: Lab values, Electrolytes, Renal labs, Glucose level, Intake & Output, Tube feeding tolerance, TPN/PPN tolerance, Weight change, Medical course
--- NOTE | 2017-12-10 16:26 | P.PNGS ---
Subjective Interval history: Intubated/Sedated SVETLANA Tsai at bedside No acute events over the weekend Physical Exam Vital signs: Vital Signs 12/09/17 16:34 12/09/17 18:00 12/09/17 19:50 Temperature Pulse Rate 113 H Respiratory Rate 18 19 Pulse Oximetry 97 97 12/09/17 20:00 12/09/17 22:00 12/09/17 23:50 Temperature 99.7 F H Pulse Rate 110 H 121 H Respiratory Rate 20 20 Pulse Oximetry 98 96 12/10/17 00:00 12/10/17 02:00 12/10/17 04:00 Temperature 99.7 F H 99.8 F H Pulse Rate 119 H 123 H 121 H Respiratory Rate 18 27 H Pulse Oximetry 96 97 12/10/17 04:14 12/10/17 06:00 12/10/17 08:00 Temperature 100.4 F H Pulse Rate 123 H 120 H Respiratory Rate 21 24 Pulse Oximetry 97 98 12/10/17 09:00 12/10/17 09:39 12/10/17 10:00 Temperature Pulse Rate 124 H 123 H Respiratory Rate 20 21 Pulse Oximetry 98 98 12/10/17 12:00 12/10/17 14:00 12/10/17 14:30 Temperature 99.6 F Pulse Rate 121 H 121 H Respiratory Rate 18 21 Pulse Oximetry 98 98 Intake & Output 12/09/17 12/10/17 12/10/17 18:59 06:59 18:59 Intake Total 658 / 658 2860 / 2860 550 / 550 Output Total 3525 / 3525 765 / 765 2800 / 2800 Balance -2867 / -2867 2095 / 2095 -2250 / -2250 Weight 80.4 kg Intake: IV 200 / 200 2350 / 2350 550 / 550 Versed Inj 50 mg In 50 ml @ 2 50 / 50 100 / 100 100 / 100 MG/HR 2 mls/hr IV.CONT TITRATE PRN Rx#:[id number] Intralipid 20% Inj 250 ML @ 31. 250 / 250 25 mls/hr IV.SIG Q24H [facility] Rx#: [id number] Mycamine Inj 100 MG In NS Inj 100 / 100 100 / 100 100 ML @ 100 mls/hr IV.SIG Q24H [facility] Rx#:[id number] Zosyn 2.25 GM Premix 50 ML @ 50 / 50 50 / 50 100 / 100 100 mls/hr IV.SIG Q8H [facility] Rx#: [id number] Sodium Chloride 23.4% Inj 5.5 1700 / 1700 MEQ Sodium Acetate Inj 29.5 MEQ KCl Inj 20 MEQ Calcium Chloride Inj 4.5 MEQ MVI-12 Inj 10 ML Folvite Inj 1 MG In Clinimix 5%/D20W Inj 2,000 ML @ 65 mls/hr IV.SIG Q24H [facility] Rx#: [id number] fentaNYL 10 mcg/mL Premix Drip 0 / 0 250 / 250 250 / 250 2,500 mcg In 250 ml @ 50 MCG/HR 5 mls/hr IV.SIG TITRATE PRN Rx #:[id number] Tube Feeding 458 / 458 510 / 510 Output: Urine 0 / 0 Stool 0 / 0 400 / 400 Hemodialysis Amount 3000 / 3000 2800 / 2800 Gastric Drainage 0 / 0 Right Nare Nasogastric Tube 0 / 0 Wound Drainage 275 / 275 355 / 355 # 1 Right Abdomen 25 / 25 5 / 5 # 2 Right Abdomen 250 / 250 350 / 350 Chest Tube Drainage 250 / 250 10 / 10 #1 Left Pleural 250 / 250 10 / 10 Other: Date of Last Bowel Movement 12/09/17 12/10/17 12/10/17 # Incontinent Bowel Movements 2 Narrative: Eyes open; not following commands Resp: CTAB Abd: soft; thin; Wound bed clean and dry; J tube with TF; JP1 with minimal drainage; JP2 with serous mildly sanguinous fluid BUE edema improved - Urinary Catheter Management Indwelling Temp Sensing Catheter Cath placed during this visit: no Results - Labs 12/10/17 05:00 12/10/17 05:00 Laboratory Results - last 24 hr 12/07/17 12/09/17 12/10/17 12:47 19:56 00:20 WBC RBC Hgb Hct MCV MCH MCHC RDW Plt Count MPV Prelim Diff (Auto) Neut % (Auto) Lymph % (Auto) [place] % (Auto) Eos % (Auto) Baso % (Auto) Neut # (Auto) Lymph # (Auto) [place] # (Auto) Eos # (Auto) Baso # (Auto) WBC Differential Seg Neuts % (Manual) Band Neuts % (Manual) Lymphocytes % (Manual) Monocytes % (Manual) Eosinophils % (Manual) Metamyelocytes % (Man) Myelocytes % (Man) Abs Neuts (Manual) Nucleated RBCs/100 WBC Differential Comment Platelet Estimate Platelet Morphology Sodium Potassium Chloride Carbon Dioxide Anion Gap BUN Creatinine Estimated GFR POC Glucose 123 H 173 H Random Glucose Calcium Phosphorus Albumin MTS Gel Crossmatch See Detail 12/10/17 12/10/17 12/10/17 04:00 05:00 05:00 WBC 20.8 H RBC 2.42 L Hgb 7.4 L Hct 21.8 L MCV 90.1 MCH 30.6 MCHC 33.9 RDW 15.8 Plt Count 433 MPV 9.7 Prelim Diff (Auto) Slide review pending Neut % (Auto) 79.5 H Lymph % (Auto) 5.5 L [place] % (Auto) 13.0 H Eos % (Auto) 1.3 Baso % (Auto) 0.7 Neut # (Auto) 16.6 H Lymph # (Auto) 1.1 [place] # (Auto) 2.7 H Eos # (Auto) 0.3 Baso # (Auto) 0.1 WBC Differential Manual diff final Seg Neuts % (Manual) 79 H Band Neuts % (Manual) 2 Lymphocytes % (Manual) 8 L Monocytes % (Manual) 6 Eosinophils % (Manual) 1 Metamyelocytes % (Man) 2 H Myelocytes % (Man) 2 H Abs Neuts (Manual) 17.7 H Nucleated RBCs/100 WBC 1 H Differential Comment . Platelet Estimate Normal Platelet Morphology Normal Sodium 137 Potassium 4.4 D Chloride 98 Carbon Dioxide 24.8 Anion Gap 14 BUN 96 H Creatinine 7.15 H Estimated GFR 10 L POC Glucose 135 H Random Glucose 151 H Calcium 7.9 L Phosphorus 6.6 H D Albumin 1.5 L MTS Gel Crossmatch 12/10/17 12/10/17 12/10/17 07:38 11:39 16:13 WBC RBC Hgb Hct MCV MCH MCHC RDW Plt Count MPV Prelim Diff (Auto) Neut % (Auto) Lymph % (Auto) [place] % (Auto) Eos % (Auto) Baso % (Auto) Neut # (Auto) Lymph # (Auto) [place] # (Auto) Eos # (Auto) Baso # (Auto) WBC Differential Seg Neuts % (Manual) Band Neuts % (Manual) Lymphocytes % (Manual) Monocytes % (Manual) Eosinophils % (Manual) Metamyelocytes % (Man) Myelocytes % (Man) Abs Neuts (Manual) Nucleated RBCs/100 WBC Differential Comment Platelet Estimate Platelet Morphology Sodium Potassium Chloride Carbon Dioxide Anion Gap BUN Creatinine Estimated GFR POC Glucose 155 H 156 H 133 H Random Glucose Calcium Phosphorus Albumin MTS Gel Crossmatch - Imaging Imaging: ITS Impressions Head MRI 12/03/17 00:00 CONCLUSION: 1. Minimal nonspecific periventricular white matter changes. 2. No restricted diffusion to suggest an acute ischemic event. 3. No evidence for significant ischemic changes. Abdomen/Pelvis CT 12/04/17 00:02 CONCLUSION: 1. Interim midline laparotomy and gastrectomy with apparent Dinh-en-Y. 2. Bowel gas pattern consistent with obstruction of the duodenum and proximal jejunum. I don't see a mass. There does seem to be some jejunal wall thickening around the jejunostomy tube. 3. Wall thickening and mucosal enhancement of the colon consistent with moderate severity colitis. C. difficile colitis would be in the differential. 4. Solid organs are within normal limits. 5. Small ascites. Also diffuse body wall edema/anasarca. No perceptible hemorrhage. Chest CT 12/04/17 00:06 CONCLUSION: 1. Left greater than right pleural effusions and basilar atelectasis. 2. No hemorrhage or hematoma demonstrated. 3. Distended and fluid-filled esophagus. No wall thickening. Patient is status post gastrectomy. Nasogastric tube is at the GE junction. 4. Body wall edema/anasarca. Chest X-Ray 12/07/17 00:00 CONCLUSION: Interval improvement. Abdomen X-Ray 12/08/17 00:00 CONCLUSION: 1. 2 left-sided abdominal catheters. 2. Nonspecific bowel gas pattern. Assessment and Plan - Assessment (1) Gastric perforation Code(s): K25.5 - Chronic or unspecified gastric ulcer with perforation Status : Acute Plan: 47yo male s/p Exlap and gastrectomy for gastric perforation, s/p esophagojejunostomy at [facility] -Intubated---vent per CCM -Continue wet to dry daily to midline incision BID and PRN as well as Silvadene to lateral wounds on RIGHT side -Continue abdominal binder -Continue NG to LIWS -TPN weaned down -TF via J tube ---increase to 50 cc/hr -Continue routine ZAINAB care - Plan I personally evaluated the patient in room 1313 on 12/10/2017. He is intubated and sedated. He opens his eyes in response to spoken voice but does not follow commands squeezing fingers or wiggling toes. I evaluate his abdominal wounds and there with signs of granulation tissue present in the upper and lower wound. ZAINAB drains are primarily serous fluid with pink tinge. The area where his skin had come off due to adhesive is actually healing and beautifully with the thin layer of Silvadene and Xeroform covering it. His extremities remain edematous diffusely. Post total gastrectomy for gastric necrosis. Reconstruction of GI tract with a esophagojejunostomy at [facility]. Multisystem organ failure. Continue supportive care.
--- NOTE | 2017-12-10 17:00 | P.PNCC ---
Subjective Subjective Remarks/Hospital Course: Patient was recently admitted [place] [facility] [place] 11[place] [facility] 11/26/17 after the following hospital course: 47-year-old -Citizen Of [place] male with reportedly no past medical or past surgical history who was admitted to hospitalist service 11/22/17 after presenting with abdominal pain, nausea, vomiting. He had CT abd/pelvis with massive gastric distention. NG tube had been placed. I was called to patient's bedside for CODE BLUE PEA arrest. CPR was ongoing and patient had massive abdominal distension and gastric regurgitant in the airway. He was emergently intubated and large amount of gastric secretions suctioned from oropharynx. After 21 minutes of CPR, ROSC was obtained and he was profoundly hypotensive. Continued aggressive fluid resuscitation and initiated dopamine. He was transferred to [facility] where CVL and R radial art line were placed and he was given 7 L of crystalloid and albumin. CXR demonstrated pneumoperitoneum and Dr. Martin Gudino was called emergently and he immediately contacted OR for emergent ex lap. He had intraabdominal hypertension with IAP of 40 mmHg, though fortunately was able to be ventilated adequately after rocuronium 50 mg IV and was transferred to OR. Dr. Martin Gudino took to the operating room early in the morning on 11/23 and discovered tension pneumoperitoneum, massive gastric distension, ischemia of the proximal 2/3 of the stomach and large gastric perforation with massive intraperitoneal contamination with food particles. Dr. Isaacs placed 2 NGT and decompressed 2 L of succus. Patient had initial improvement in vital signs in the immediate postoperative period, however he subsequently became hypotensive requiring upward titration of levophed and addition of vasopressin and stress dose hydrocortisone. He remains on levophed 10 mcg/min, neosynephrine 80 mcg/ min, vasopressin 0.04 units/min with overall vasopressor requirement weaning overnight. He is oliguric and creatinine is continuing to climb. He was given 2 L of crystalloid and albumin overnight. He does have significant fluid losses with combination of abdominal dressing and NGT output, so I will give an additional L of crystalloid now to monitor hourly response as he certainly does not appear volume overloaded. Nonetheless Flotrac numbers are suggesting adequate volume status and we may be seeing the consequence of ischemic ATN. May ultimately require HD, however not at this time. Abdomen remains open and plan is to re-explore 11/25. 11/25: Patient has acceptable hemodynamics by Flotrac but remains septic with requirements for phenylephrine 200 mics per minute, Levophed 8 mics per minute and vasopressin 0.04 units/min for blood pressure support. This has improved overnight and the Bhavesh-Synephrine support has been weaned off completely. Acid base balance is acceptable. ATN has developed which will undoubtedly require hemodialysis. Potassium level is normal. He is at increased risk for an anesthetic now but there is an urgent need to check for residual gastric necrosis. 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 Since the source control surgery, the maintenance of normal acid-base balance has been less difficult. Patient remains anuric with a rising creatinine above 6.0. He is clearly ahead on volume and will benefit from dialysis. A 2 lumen hemodialysis catheter was placed on 11/25 and has been packed with dilute heparin solution. The right internal jugular central line is been in place for 4 days and accessed multiple times. The femoral art line has been in for 4 days. Shock liver was apparent after the cardiac arrest reflecting a transaminitis, elevated bilirubin, and prolonged INR. The INR has remained normal following the transfusion of 4 units of fresh frozen plasma prior to surgery yesterday. A 10% dextrose infusion continues because of ongoing problems with hypoglycemia. Thrombocytopenia at 37,000 persists. He has remained on antibiotic coverage with Pipracil/tazobactam and fungal coverage with fluconazole, all adjusted for renal failure. Present vasopressor requirements include levophed at 7 mics per minute and vasopressin at 0.04 units/min. The chest x-ray is consistent with minor aspiration at the time of his preoperative cardiac arrest on the floor and cultures have subsequently grown Klebsiella, pansensitive. The operative note will clarify the extent of the surgery but in essence the distal esophagus is stapled off and marked with 2 Prolene sutures. The antrum of the stomach is oversewn. Most of the stomach has been removed. The abdomen is open with a VAC dressing applied. Subjective: 11/29: Bowel was in discontinuity following subtotal gastrectomy and patient was transferred to [facility]. On reexploration 11/28 he underwent Dinh-en-y esophagojejunostomy, feeding jejunostomy placement, diagnostic EGD, primary fascial closure. Wound vac was applied to abdomen (though currently wet to dry dressing in place upon arrival). He was reportedly found to have candidemia and was started on micafungin and has undergone ophtho eval. Lines including CVL, Vascath and art line have all been changed at [facility] (though not clear when). He remains on mechanical ventilation and has been weaned off pressors. He was found to have BUE DVTs and is on heparin drip. He is on TPN and has been started on trickle tube feeds with Nepro via jejunostomy. NGT is to [facility]. He underwent HD postoperatively on 11/28. He has now been transferred back to [facility] [place] for ongoing management. I have updated his father and stepmother. 11/30: Patient re-admitted s/p transfer from [facility] overnight, otherwise no acute issues. Scheduled to undergo HD today. 12/01: T-max 101.7, leukocytosis to 27,000 with bandemia. Now 3 days following Dinh-en-Y reconstruction of GI tract following sub-total gastrectomy for gastric necrosis. All new lines placed after diagnosis of candidemia. TPN infusing, jejunostomy at trickle flow and can be increased slowly per general surgery. 12/02: Marked leukocytosis with bandemia persists. Afebrile over last 24 hours. Leave NG tube across the esophageal anastomosis and surgical service will direct timing of contrast study about 7 days following surgery. Continue with spontaneous breathing trials. 12/03: extubated yesterday. since then, has not followed commands, and does not talk. appears to have clinically an aphasia, although his uremia or severe hypoactive delirium could present this way. purposeful movements. will obtain MRI to rule out acute ischemia, as this appears to be a new mental status change (11/29 /[facility] notes state interactive on ventilator). 12/04: reintubated overnight: more output from ZAINAB drains. hgb dropped to 7 this AM: receiving 1 unit prbc. MRI negative for acute change. EEG ordered today to rule out subclinical status epilepticus. also concern overnight for aspiration event. 12/05: T-max 99. WBC 24,000. Reintubated yesterday for respiratory failure probably related to aspiration. Trickle feeding continues through jejunostomy. Nasogastric tube is through the anastomosis and is to low intermittent. 12/06: Afebrile. WBC 26,000. Bandemia has largely resolved. There are bilateral pleural effusions which may need to be tapped to rule out infection or leak. Both lower lobes are consolidated on CAT scan, probably representing compressive atelectasis from the effusions. 12/07: White count remains elevated at 25,000. Total parenteral nutrition infusing and tolerated. Altered mental status persists, possibly related to the cardiac arrest on the floor prior to transfer to the ICU. 12/08: Tolerating total parenteral nutrition with good glucose control. Leukocytosis persists. Fluid tap from left chest bit cloudy, cultures pending. Maintaining adequate gas exchange on lower levels of fractional inspired oxygen. Aim for extubation trial again soon. 12/09: Patient considerably less edematous over the past several days following successful dialysis runs. Continually fails attempts at weaning parameters and desaturation. Left chest drainage is no growth by culture. White blood cell count remains elevated. 12/10: Remains intubated. WBC count elevated but stable. Left chest tube with 260 mL output in 24 hours. BUN/creatinine remains elevated Objective Vital Signs / I&O: Vital Signs 12/09/17 18:00 12/09/17 19:50 12/09/17 20:00 Temperature 99.7 F H Pulse Rate 113 H 110 H Respiratory Rate 19 20 Pulse Oximetry 97 98 12/09/17 22:00 12/09/17 23:50 12/10/17 00:00 Temperature 99.7 F H Pulse Rate 121 H 119 H Respiratory Rate 20 18 Pulse Oximetry 96 96 12/10/17 02:00 12/10/17 04:00 12/10/17 04:14 Temperature 99.8 F H Pulse Rate 123 H 121 H Respiratory Rate 27 H 21 Pulse Oximetry 97 97 12/10/17 06:00 12/10/17 08:00 12/10/17 09:00 Temperature 100.4 F H Pulse Rate 123 H 120 H 124 H Respiratory Rate 24 20 Pulse Oximetry 98 98 12/10/17 09:39 12/10/17 10:00 12/10/17 12:00 Temperature 99.6 F Pulse Rate 123 H 121 H Respiratory Rate 21 18 Pulse Oximetry 98 98 12/10/17 14:00 12/10/17 14:30 12/10/17 16:00 Temperature Pulse Rate 121 H 120 H Respiratory Rate 21 Pulse Oximetry 98 Intake & Output 12/09/17 12/10/17 12/10/17 18:59 06:59 18:59 Intake Total 658 / 658 2860 / 2860 550 / 550 Output Total 3525 / 3525 765 / 765 2800 / 2800 Balance -2867 / -2867 2095 / 2095 -2250 / -2250 Weight 80.4 kg Intake: IV 200 / 200 2350 / 2350 550 / 550 Versed Inj 50 mg In 50 ml @ 2 50 / 50 100 / 100 100 / 100 MG/HR 2 mls/hr IV.CONT TITRATE PRN Rx#:[id number] Intralipid 20% Inj 250 ML @ 31. 250 / 250 25 mls/hr IV.SIG Q24H COLE Rx#: [id number] Mycamine Inj 100 MG In NS Inj 100 / 100 100 / 100 100 ML @ 100 mls/hr IV.SIG Q24H COLE Rx#:[id number] Zosyn 2.25 GM Premix 50 ML @ 50 / 50 50 / 50 100 / 100 100 mls/hr IV.SIG Q8H COLE Rx#: [id number] Sodium Chloride 23.4% Inj 5.5 1700 / 1700 MEQ Sodium Acetate Inj 29.5 MEQ KCl Inj 20 MEQ Calcium Chloride Inj 4.5 MEQ MVI-12 Inj 10 ML Folvite Inj 1 MG In Clinimix 5%/D20W Inj 2,000 ML @ 65 mls/hr IV.SIG Q24H COLE Rx#: [id number] fentaNYL 10 mcg/mL Premix Drip 0 / 0 250 / 250 250 / 250 2,500 mcg In 250 ml @ 50 MCG/HR 5 mls/hr IV.SIG TITRATE PRN Rx #:[id number] Tube Feeding 458 / 458 510 / 510 Output: Urine 0 / 0 Stool 0 / 0 400 / 400 Hemodialysis Amount 3000 / 3000 2800 / 2800 Gastric Drainage 0 / 0 Right Nare Nasogastric Tube 0 / 0 Wound Drainage 275 / 275 355 / 355 # 1 Right Abdomen 25 / 25 5 / 5 # 2 Right Abdomen 250 / 250 350 / 350 Chest Tube Drainage 250 / 250 10 / 10 #1 Left Pleural 250 / 250 10 / 10 Other: Date of Last Bowel Movement 12/09/17 12/10/17 12/10/17 # Incontinent Bowel Movements 2 Result Diagrams: 12/10/17 05:00 12/10/17 05:00 Objective Remarks: GEN: Chronically ill-appearing, sedated for vent synchrony HEENT: NCAT, pupils 3 mm and reactive bilaterally NECK: RIJ vasc-cath and LIJ TLC present, clean/ dry/ intact CARDIO: NSR, regular rhythm, no JVD PULM: prvc, fio2 45%. equal chest rise. Scattered rhonchi persist, decreased breath sounds both bases.. ABD: Midline surgical bandages clean/ dry/ intact. ZAINAB #1 is anterior to esophagojejunostomy anastomosis, ZAINAB #2 posterior, both with serosanguineous drainage. Abdomen soft. Fascia is closed, skin is open, depth of wound is minimal. Open tissue is clean. SKIN: No rashes or lesions, dry NEURO: Moves 4 limbs spontaneously. Purposeful with arms, tracks with eyes. Does not follow commands. Opens eyes to loud voice. Assessment and Plan - Problem List (1) Gastric perforation Code(s): K25.5 - Chronic or unspecified gastric ulcer with perforation Status : Acute (2) Status post total gastrectomy and Dinh-en-Y esophagojejunal anastomosis Code(s): Z90.3 - Acquired absence of stomach [part of]; Z98.0 - Intestinal bypass and anastomosis status Status: Acute (3) Ischemic hepatitis Code(s): K75.9 - Inflammatory liver disease, unspecified Status: Acute (4) Gastric necrosis Code(s): K31.89 - Other diseases of stomach and duodenum Status: Acute (5) Thrombocytopenia Code(s): D69.6 - Thrombocytopenia, unspecified Status: Acute (6) Acute bilateral deep vein thrombosis (DVT) of upper extremities Code(s): I82.623 - Acute embolism and thrombosis of deep veins of upper extremity, bilateral Status: Acute (7) Anemia Code(s): D64.9 - Anemia, unspecified Status: Acute (8) Leukocytosis Code(s): D72.829 - Elevated white blood cell count, unspecified Status: Acute (9) Candidemia Code(s): B37.7 - Candidal sepsis Status: Acute (10) On total parenteral nutrition (TPN) Code(s): Z78.9 - Other specified health status Status: Acute (11) Acute hemodialysis patient Code(s): Z99.2 - Dependence on renal dialysis Status: Acute (12) JACLYN (acute kidney injury) Code(s): N17.9 - Acute kidney failure, unspecified Status: Acute (13) Aspiration pneumonia Code(s): J69.0 - Pneumonitis due to inhalation of food and vomit Status: Acute (14) Acute respiratory failure Code(s): J96.00 - Acute respiratory failure, unspecified whether with hypoxia or hypercapnia Status: Acute - Assessment and Plan Plan: NEURO: Acute metabolic encephalopathy- severe MRI 12/03: negative for acute change EEG -moderate to severe encephalopathy 12/04 could be delirium vs. uremic encephalopathy vs anoxic brain injury following code RESP: Acute hypoxic and hypercarbic respiratory failure- recurrent, severe Healthcare associated aspiration pneumonia extubated 12/02, reintubated 12/03 overnight wean fio2 to keep spo2 > 90%. vent bundle aggressive pulmonary toilet. PT/OT Required reintubation 12/04 Persistent bilateral pleural effusions left greater than right, consolidation both lower lobes. L pigtail chest tube placed 12/07-exudative effusion per [facility] criteria CV: Cardiac arrest 11/23/17 (PEA arrest due to shock secondary to acute gastric perf and tension pneumoperitoneum) Septic shock, resolved Now off pressors. Hemodynamic monitoring with L radial art line Concern for anoxic injury at the time of arrest. GI: s/p gastric perforation with tension pneumoperitoneum status post ex lap with primary repair of anterior gastric perforation with stapler 11/23 On second look 11/25 he was found to have gastric necrosis requiring subtotal gastrectomy and placement of Abthera VAC dressing. The bowel was in discontinuity and he was transferred to [facility]. On 11/28 he underwent reexploration with Dinh-en-y esophagojejunostomy, feeding jejunostomy placement, diagnostic EGD, primary fascial closure Gastric necrosis Ischemic hepatopathy NGT to LIWS, do not manipulate NGT per general surgery orders from [facility]. Has feeding jejunostomy and tube feeds with Nepro 10 mL per hour had been started at [facility], continue for now with further management per general surgery. ZAINAB drains in place #1 anterior to anastomosis, #2 posterior to the anastomosis. Management per general surgery. Continue TPN renal formula 46 mL/hr. Intermittent lipids daily. General surgery recs appreciated CT abd/pelvis 12/03 without acute abdominal pathology. Had right upper quadrant ultrasound on 11/27/17 that demonstrated contracted gallbladder with sludge. No evidence of cholecystitis. Echogenicity in right liver related to focal fatty change or altered perfusion. Color Doppler interrogation through the region demonstrates patent vascularity. FEN/RENAL: JACLYN secondary to ischemic ATN HD as started 11/26 at [facility]. Had HD 3 hours on 11/[address] [facility] with 1700 mL UF Has Delgado in place currently. Has R IJ Vascath. Monitor I/O and electrolytes. Nephrology following prealbumin low at 14 on 12/01. trend weekly. ID: Gastric perforation with large amount particulate peritoneal contamination 11/23 Acute Aspiration pneumonia Candidemia - reportedly blood cultures at OSH were positive. Will request records from microbiology. Patient had been on micafungin 100 mg IV daily (started at [facility]) with last administration at 10 AM on 11/29. Was previously on diflucan IV. On Zosyn 2.25 IV every 8 hours with last administration 11/29 at noon. Will continue zosyn/micafungin. Patient was evaluated by ophthalmology prior to transfer. I do not see an ophthalmology note in the transfer documentation. I have requested this document. Requested culture data from [facility]. Send blood culture x2 sets now. Sputum culture 11/24 with pansensitive Klebsiella pneumonia ID following HEME: Thrombocytopenia Bilateral upper extremity DVTs Anemia secondary to acute blood loss-requiring transfusion U/s 11/26 BUE - thrombus R axillary, brachial and basilic veins and thrombus in left axillary and left brachial veins. U/s bilateral lower extremities 11/26 at [facility] negative from common femoral to popliteal vein levels. Arrived on heparin drip Hematology consult was obtained at [facility] and recommended heparin drip and transfuse prn for platelets <50k. Will use target PTT 40-65 now, no boluses. Monitor CBC 1 unit prbc 12/04. recheck in AM. ENDO: Monitor Glucose q4 hours and use low dose insulin sliding scale as indicated. PROPH: Holding heparin drip and hold subcu for DVT prophylaxis (oozing under dressing). Protonix 40 mg IV daily for stress ulcer prophylaxis. ACCESS: R IJ vascath , L IJ CVL, L radial art line. All existing lines were replaced at [facility]. Change both soon. FULL CODE I spoke at length with his stepmother this morning. She understands that we do not have a good feel for his neurologic status at this point as he appears to be encephalopathic, possibly of anoxic etiology. Overall impression: This gentleman is critically ill and nutritionally depleted. He had deteriorated clinical status requiring placement back on mechanical ventilation and we have not been able to get him extubated. Jejunostomy tube feedings are at a lower rate because of abundant diarrheal stool. TPN is infusing wean slowly (6) Acute bilateral deep vein thrombosis (DVT) of upper extremities Qualifiers: Affected thrombotic vein of extremity: brachial Qualified Code(s): I82.623 - Acute embolism and thrombosis of deep veins of upper extremity, bilateral (14) Acute respiratory failure Qualifiers: Respiratory failure complication: hypoxia Qualified Code(s): J96.01 - Acute respiratory failure with hypoxia
[2017-12-11] MEDS: Insulin NovoLOG Aspart Correctional Sugar Inj SQ SCH ×6 (00:12→20:55)
[2017-12-11] MEDS: fentaNYL 10 mcg/mL Premix Drip 2,500 MCG/250 ML BAG IV.SIG PRN ×3 (02:16→22:23)
[2017-12-11] MEDS: Oral Hygiene Kit OROPHARYNG SCH ×6 (03:40→17:33)
[2017-12-11] MEDS: Piperacil/Tazo 2.25 GM Premix 50 ML IV.SIG SCH ×3 (05:21→21:07)
--- NOTE | 2017-12-11 05:21 | XR ---
EXAM DATE: 12/11/2017 4:43 AM EST AGE/SEX: 47 years / Male INDICATIONS: Shortness of breath, possible respiratory disease. CLINICAL DATA: This is the patient's subsequent encounter. Patient reports that signs and symptoms h ave been present for 2 weeks and indicates a pain score of Nonresponsive. MEDICAL/SURGICAL HISTORY: . Cardiac arrest. Renal failure. . Gastrectomy. Vas Cath. Dinh en Y. COMPARISON: [facility], CHEST 1V SINGLE AP, 12/07/2017. . FINDINGS: Endotracheal tube is present with tip 7 cm above the [place]. Nasogastric tube descends into the mid e sophagus. Left neck central line is stable extending to the innominate vein. Right neck sheath is aga in noted. There has been interval worsening in aeration with increase in confluence of left lower lob e parenchymal opacity. Mild persistent bilateral perihilar parenchymal opacity. Heart size and medias tinal contours are satisfactory. CONCLUSION: Worsening in aeration in the left lower lobe Electronically signed by: Jordi Brumfield MD 12/11/2017 5:19 AM EST
[2017-12-11 06:52] LABS: Baso # (Auto) 0.1 th/mm3 (0.0-0.2); Baso % (Auto) 0.5 % (0.0-2.0); Eos # (Auto) 0.4 th/mm3 (0.0-0.4); Eos % (Auto) 2.3 % (0.0-4.0); Lymph # (Auto) 1.1 th/mm3 (1.0-4.8); Mean Corpuscular HGB Conc 32.8 % (32.0-36.0); Mean Corpuscular Hemoglobin 30.1 pg (27.0-34.0); Mean Corpuscular Volume 91.5 fL (80.0-100.0); Mean Platelet Volume 9.6 fL (7.0-11.0); Mono # (Auto) 2.4 th/mm3 (0.0-0.9); Neut # (Auto) 14.5 th/mm3 (1.8-7.7); Neut % (Auto) 78.2 % (16.0-70.0); Platelet Count 371 th/mm3 (150-450); Red Blood Count 1.92 mil/mm3 (4.50-5.90); White Blood Count 18.5 th/mm3 (4.0-11.0)
[2017-12-11 06:58] LABS: Hematocrit 17.6 % (39.0-51.0); Hemoglobin 5.8 gm/dL (13.0-17.0)
[2017-12-11 07:17] LABS: Albumin 1.4 g/dL (3.4-5.0); Anion Gap 13 meq/L (5-15); Aspartate Aminotransferase 133 U/L (15-37); Blood Urea Nitrogen 90 mg/dL (7-18); Calcium 7.8 mg/dL (8.5-10.1); Carbon Dioxide 26.9 meq/L (21.0-32.0); Chloride 98 meq/L (98-107); Glomerular Filtration Rate 12 mL/min (>89); Glucose,Random 142 mg/dL (74-106); Potassium 4.3 meq/L (3.5-5.1); Sodium 138 meq/L (136-145)
[2017-12-11 07:19] LABS: Alanine Aminotransferase 185 U/L (12-78)
[2017-12-11 07:22] LABS: Alkaline Phosphatase 352 U/L (45-117); Total Protein 6.2 g/dL (6.4-8.2)
[2017-12-11 07:59] LABS: Promyelocyte 1 % (0-0)
[2017-12-11 08:00] LABS: Eosinophils 5 % (0-4); Lymphocytes 8 % (9-44); Metamyelocytes 5 % (0-1); Monocytes 5 % (0-8); Myelocytes 4 % (0-0); Platelet Estimate Normal (Normal); Platelet Morphology Normal (Normal); Stomatocytes 1+
[2017-12-11] MEDS: Chlorhexidine 0.12% Oral Kit 15 ML UDC OROPHARYNG SCH ×4 (08:53→20:55)
[2017-12-11] MEDS: hydrALAZINE 50 MG Tablet PO SCH ×3 (09:52→17:35)
[2017-12-11] MEDS: Calcium Acetate 667 MG Capsule PO SCH ×3 (09:52→17:35)
[2017-12-11] MEDS: Midazolam 50 MG/50 ML Inj 50 MG/50 ML BAG IV.CONT PRN ×2 (09:53→21:11)
[2017-12-11] MEDS: Pantoprazole Inj 40 MG Vial IV.PUSH SCH ×3 (09:57→21:04)
--- NOTE | 2017-12-11 11:30 | P.PNNP ---
Subjective Interval history: Patient remains anuric. Patient was dialyzed yesterday. Patient poorly responsive, is on sedatives. GI was consulted today to rule out GI bleed. Hemoglobin has dropped, being transfused. <Jocelyn Crews - Last Filed: 12/11/17 11:40> Physical Exam Vital signs: Vital Signs 12/10/17 12:00 12/10/17 14:00 12/10/17 14:30 Temperature 99.6 F Pulse Rate 121 H 121 H Respiratory Rate 18 21 Pulse Oximetry 98 98 12/10/17 16:00 12/10/17 18:00 12/10/17 19:00 Temperature 99.7 F H Pulse Rate 121 H 124 H 124 H Respiratory Rate 26 H 24 Pulse Oximetry 98 98 12/10/17 20:00 12/10/17 20:55 12/10/17 21:00 Temperature 99.4 F Pulse Rate 121 H 120 H Respiratory Rate 24 26 H 24 Pulse Oximetry 98 98 99 12/10/17 21:15 12/10/17 21:30 12/10/17 21:45 Temperature Pulse Rate 122 H 120 H 119 H Respiratory Rate 21 27 H 25 H Pulse Oximetry 97 98 97 12/10/17 22:00 12/10/17 22:15 12/10/17 22:30 Temperature Pulse Rate 118 H 118 H 118 H Respiratory Rate 22 21 20 Pulse Oximetry 99 98 98 12/10/17 22:45 12/10/17 23:00 12/10/17 23:15 Temperature Pulse Rate 119 H 118 H 118 H Respiratory Rate 19 22 21 Pulse Oximetry 99 98 98 12/10/17 23:30 12/10/17 23:45 12/11/17 00:00 Temperature 98.6 F Pulse Rate 120 H 119 H 119 H Respiratory Rate 24 21 22 Pulse Oximetry 98 100 99 12/11/17 00:15 12/11/17 00:30 12/11/17 00:45 Temperature Pulse Rate 119 H 120 H 120 H Respiratory Rate 21 19 19 Pulse Oximetry 99 99 99 12/11/17 01:00 12/11/17 01:03 12/11/17 01:15 Temperature Pulse Rate 118 H 120 H Respiratory Rate 22 19 25 H Pulse Oximetry 100 100 99 12/11/17 01:30 12/11/17 01:45 12/11/17 02:00 Temperature Pulse Rate 119 H 119 H 118 H Respiratory Rate 22 20 20 Pulse Oximetry 99 100 99 12/11/17 02:15 12/11/17 02:30 12/11/17 02:45 Temperature Pulse Rate 73 122 H 122 H Respiratory Rate 38 H 28 H 21 Pulse Oximetry 92 L 98 99 12/11/17 03:00 12/11/17 03:15 12/11/17 03:30 Temperature Pulse Rate 119 H 118 H 119 H Respiratory Rate 19 20 19 Pulse Oximetry 99 99 99 12/11/17 03:45 12/11/17 03:52 12/11/17 04:00 Temperature 99.6 F Pulse Rate 118 H 117 H Respiratory Rate 19 18 18 Pulse Oximetry 99 100 99 12/11/17 04:15 12/11/17 04:30 12/11/17 04:45 Temperature Pulse Rate 118 H 116 H 119 H Respiratory Rate 28 H 45 H 41 H Pulse Oximetry 99 99 99 12/11/17 05:00 12/11/17 05:15 12/11/17 07:27 Temperature Pulse Rate 122 H 116 H Respiratory Rate 26 H 21 18 Pulse Oximetry 99 100 100 12/11/17 10:26 12/11/17 11:10 Temperature 99.3 F Pulse Rate 115 H Respiratory Rate 18 18 Pulse Oximetry 100 99 Intake & Output 12/10/17 12/11/17 12/11/17 18:59 06:59 18:59 Intake Total 1141 / 1141 3319.2588 / 3319.2588 150 / 150 Output Total 3905 / 3905 810 / 810 Balance -2764 / -2764 2509.2588 / 2509.2588 150 / 150 Weight 74.9 kg Intake: IV 550 / 550 2632.2588 / 2632.2588 150 / 150 Versed Inj 50 mg In 50 ml @ 2 100 / 100 50 / 50 MG/HR 2 mls/hr IV.CONT TITRATE PRN Rx#:[id number] Intralipid 20% Inj 250 ML @ 31. 250 / 250 25 mls/hr IV.SIG Q24H [facility] Rx#: [id number] Mycamine Inj 100 MG In NS Inj 100 / 100 100 / 100 100 ML @ 100 mls/hr IV.SIG Q24H [facility] Rx#:[id number] Zosyn 2.25 GM Premix 50 ML @ 100 / 100 100 / 100 100 mls/hr IV.SIG Q8H [facility] Rx#: [id number] Sodium Chloride 23.4% Inj 5.5 2032.2588 / 2032.2588 MEQ Sodium Acetate Inj 29.5 MEQ KCl Inj 20 MEQ Calcium Chloride Inj 4.5 MEQ MVI-12 Inj 10 ML Folvite Inj 1 MG In Clinimix 5%/D20W Inj 2,000 ML @ 65 mls/hr IV.SIG Q24H [facility] Rx#: [id number] fentaNYL 10 mcg/mL Premix Drip 250 / 250 250 / 250 2,500 mcg In 250 ml @ 50 MCG/HR 5 mls/hr IV.SIG TITRATE PRN Rx #:[id number] Tube Feeding 411 / 411 567 / 567 Tube Irrigant 180 / 180 120 / 120 Intake (Blood Product) Amt 0 / 0 Rbc As-3 Leukoreduced Unit 0 / 0 [id number] Output: Urine 0 / 0 0 / 0 Stool 800 / 800 500 / 500 Pleural Fluid 0 / 0 Hemodialysis Amount 2800 / 2800 Gastric Drainage 0 / 0 Right Nare Nasogastric Tube 0 / 0 Wound Drainage 255 / 255 270 / 270 # 1 Right Abdomen 5 / 5 20 / 20 # 2 Right Abdomen 250 / 250 250 / 250 Chest Tube Drainage 50 / 50 40 / 40 #1 Left Pleural 50 / 50 40 / 40 Other: Date of Last Bowel Movement 12/10/17 12/10/17 12/11/17 - Constitutional no acute distress - Routine HEENT Exam Head: Present: normocephalic ENT: Present: mucous membranes moist - Routine Neck Exam Present: trachea midline. Absent: tracheal deviation - Routine Respiratory Exam Present: decreased breath sounds. Absent: accessory muscle use Comments: Patient has left sided chest tube. - Routine Cardiovascular Exam Present: RRR, tachycardia - Routine Abdominal Exam Comments: Patient has abdominal binder on. - Routine Extremities Exam Present: edema Comments: Patient has upper extremity edema bilaterally. - Routine Neurological Exam Absent: alert - Routine Psychiatric Exam Present: unable to assess - Urinary Catheter Management Indwelling Temp Sensing Catheter Cath placed during this visit: no <Jocelyn Crews - Last Filed: 12/11/17 11:40> Vital signs: Vital Signs 12/10/17 14:00 12/10/17 14:30 12/10/17 16:00 Temperature 99.7 F H Pulse Rate 121 H 121 H Respiratory Rate 21 26 H Pulse Oximetry 98 98 12/10/17 18:00 12/10/17 19:00 12/10/17 20:00 Temperature 99.4 F Pulse Rate 124 H 124 H 121 H Respiratory Rate 24 24 Pulse Oximetry 98 98 12/10/17 20:55 12/10/17 21:00 12/10/17 21:15 Temperature Pulse Rate 120 H 122 H Respiratory Rate 26 H 24 21 Pulse Oximetry 98 99 97 12/10/17 21:30 12/10/17 21:45 12/10/17 22:00 Temperature Pulse Rate 120 H 119 H 118 H Respiratory Rate 27 H 25 H 22 Pulse Oximetry 98 97 99 12/10/17 22:15 12/10/17 22:30 12/10/17 22:45 Temperature Pulse Rate 118 H 118 H 119 H Respiratory Rate 21 20 19 Pulse Oximetry 98 98 99 12/10/17 23:00 12/10/17 23:15 12/10/17 23:30 Temperature Pulse Rate 118 H 118 H 120 H Respiratory Rate 22 21 24 Pulse Oximetry 98 98 98 12/10/17 23:45 12/11/17 00:00 12/11/17 00:15 Temperature 98.6 F Pulse Rate 119 H 119 H 119 H Respiratory Rate 21 22 21 Pulse Oximetry 100 99 99 12/11/17 00:30 12/11/17 00:45 12/11/17 01:00 Temperature Pulse Rate 120 H 120 H 118 H Respiratory Rate 19 19 22 Pulse Oximetry 99 99 100 12/11/17 01:03 12/11/17 01:15 12/11/17 01:30 Temperature Pulse Rate 120 H 119 H Respiratory Rate 19 25 H 22 Pulse Oximetry 100 99 99 12/11/17 01:45 12/11/17 02:00 12/11/17 02:15 Temperature Pulse Rate 119 H 118 H 73 Respiratory Rate 20 20 38 H Pulse Oximetry 100 99 92 L 12/11/17 02:30 12/11/17 02:45 12/11/17 03:00 Temperature Pulse Rate 122 H 122 H 119 H Respiratory Rate 28 H 21 19 Pulse Oximetry 98 99 99 12/11/17 03:15 12/11/17 03:30 11/06/18 03:45 Temperature Pulse Rate 118 H 119 H 118 H Respiratory Rate 20 19 19 Pulse Oximetry 99 99 99 12/11/17 03:52 12/11/17 04:00 12/11/17 04:15 Temperature 99.6 F Pulse Rate 117 H 118 H Respiratory Rate 18 18 28 H Pulse Oximetry 100 99 99 12/11/17 04:30 12/11/17 04:45 12/11/17 05:00 Temperature Pulse Rate 116 H 119 H 122 H Respiratory Rate 45 H 41 H 26 H Pulse Oximetry 99 99 99 12/11/17 05:15 12/11/17 07:27 12/11/17 08:00 Temperature 99.5 F Pulse Rate 116 H 121 H Respiratory Rate 21 18 18 Pulse Oximetry 100 100 100 12/11/17 09:00 12/11/17 10:00 12/11/17 10:26 Temperature 99.4 F 99.3 F Pulse Rate 114 H 111 H 115 H Respiratory Rate 20 18 18 Pulse Oximetry 100 100 100 12/11/17 11:00 12/11/17 11:10 12/11/17 11:32 Temperature 99.5 F Pulse Rate 117 H 119 H Respiratory Rate 20 18 20 Pulse Oximetry 99 99 99 Intake & Output 12/10/17 12/11/17 12/11/17 18:59 06:59 18:59 Intake Total 1141 / 1141 3319.2588 / 3319.2588 550 / 550 Output Total 3905 / 3905 810 / 810 Balance -2764 / -2764 2509.2588 / 2509.2588 550 / 550 Weight 74.9 kg Intake: IV 550 / 550 2632.2588 / 2632.2588 150 / 150 Versed Inj 50 mg In 50 ml @ 2 100 / 100 50 / 50 MG/HR 2 mls/hr IV.CONT TITRATE PRN Rx#:[id number] Intralipid 20% Inj 250 ML @ 31. 250 / 250 25 mls/hr IV.SIG Q24H [facility] Rx#: [id number] Mycamine Inj 100 MG In NS Inj 100 / 100 100 / 100 100 ML @ 100 mls/hr IV.SIG Q24H [facility] Rx#:[id number] Zosyn 2.25 GM Premix 50 ML @ 100 / 100 100 / 100 100 mls/hr IV.SIG Q8H [facility] Rx#: [id number] Sodium Chloride 23.4% Inj 5.5 2032.2588 / 2.2588 MEQ Sodium Acetate Inj 29.5 MEQ KCl Inj 20 MEQ Calcium Chloride Inj 4.5 MEQ MVI-12 Inj 10 ML Folvite Inj 1 MG In Clinimix 5%/D20W Inj 2,000 ML @ 65 mls/hr IV.SIG Q24H [facility] Rx#: [id number] fentaNYL 10 mcg/mL Premix Drip 250 / 250 250 / 250 2,500 mcg In 250 ml @ 50 MCG/HR 5 mls/hr IV.SIG TITRATE PRN Rx #:[id number] Tube Feeding 411 / 411 567 / 567 Tube Irrigant 180 / 180 120 / 120 Intake (Blood Product) Amt 400 / 400 Rbc As-3 Leukoreduced Unit 0 / 0 [id number] Rbc As-3 Leukoreduced Unit 400 / 400 [id number] Output: Urine 0 / 0 0 / 0 Stool 800 / 800 500 / 500 Pleural Fluid 0 / 0 Hemodialysis Amount 2800 / 2800 Gastric Drainage 0 / 0 Right Nare Nasogastric Tube 0 / 0 Wound Drainage 255 / 255 270 / 270 # 1 Right Abdomen 5 / 5 20 / 20 # 2 Right Abdomen 250 / 250 250 / 250 Chest Tube Drainage 50 / 50 40 / 40 #1 Left Pleural 50 / 50 40 / 40 Other: Date of Last Bowel Movement 12/10/17 12/10/17 12/11/17 - Urinary Catheter Management Indwelling Temp Sensing Catheter Cath placed during this visit: no <Filipe Robertson - Last Filed: 12/11/17 12:47> Assessment and Plan - Assessment (1) JACLYN (acute kidney injury) Code(s): N17.9 - Acute kidney failure, unspecified Status: Acute Plan: Anuric renal failure. He has become dialysis dependent. Dialysis every 2nd day. Patient was dialyzed yesterday, 2800 mL of fluid removed. Monitor for recovery. Continue supportive care. Avoid nephrotoxic agents. (2) Acute respiratory failure Code(s): J96.00 - Acute respiratory failure, unspecified whether with hypoxia or hypercapnia Status: Acute Qualifiers: Respiratory failure complication: hypoxia Qualified Code(s): J96.01 - Acute respiratory failure with hypoxia Plan: On the ventilator. Possible aspiration. (3) Gastric perforation Code(s): K25.5 - Chronic or unspecified gastric ulcer with perforation Status : Acute Plan: s/p surgery. Subtotal gastrectomy in [place]. In [facility] he had: Dinh-en-y esophagojejunostomy, feeding jejunostomy placement, diagnostic EGD, primary fascial closure. Date of procedure: 11/28/17 (4) Candidemia Code(s): B37.7 - Candidal sepsis Status: Acute Plan: On Micafungin. Patient is also on Zosyn. Dose medications appropriate to renal function. (5) DVT (deep venous thrombosis) Code(s): I82.409 - Acute embolism and thrombosis of unspecified deep veins of unspecified lower extremity Status: Acute Plan: On heparin drip. DVT of bilateral upper extremities. (6) Anemia Code(s): D64.9 - Anemia, unspecified Status: Acute Plan: Could be multifactorial. Rule out bleeding. Also could be due to renal failure. Transfuse prn. Patient getting transfused today. May need to start Epogen. <Jocelyn Crews - Last Filed: 12/11/17 11:40> - Assessment (1) JACLYN (acute kidney injury) Code(s): N17.9 - Acute kidney failure, unspecified Status: Acute (2) Acute respiratory failure Code(s): J96.00 - Acute respiratory failure, unspecified whether with hypoxia or hypercapnia Status: Acute Qualifiers: Respiratory failure complication: hypoxia Qualified Code(s): J96.01 - Acute respiratory failure with hypoxia (3) Gastric perforation Code(s): K25.5 - Chronic or unspecified gastric ulcer with perforation Status : Acute (4) Candidemia Code(s): B37.7 - Candidal sepsis Status: Acute (5) DVT (deep venous thrombosis) Code(s): I82.409 - Acute embolism and thrombosis of unspecified deep veins of unspecified lower extremity Status: Acute (6) Anemia Code(s): D64.9 - Anemia, unspecified Status: Acute - Attending Attestation patient was seen and examined. Severe anemia is noted. He is receiving blood transfusion. GI consulted. Remains anuric. Dialysis tomorrow. <Filipe Robertson - Last Filed: 12/11/17 12:47>
--- NOTE | 2017-12-11 11:35 | P.PNID ---
Subjective Remarks: Patient noted to have bleeding via the stools. Hemoglobin dropped significantly. Being transfused. Patient reintubated 12/04 for acute hypoxic respiratory failure. Currently sedated on the ventilator. Low-grade fever. High-volume stools Via rectal tube. Pleural fluid has no growth. Left-sided chest tube has decreased output. Peritoneum and pleural fluid culture has no growth. Discussed with RN. Antibiotics: Micafungin Zosyn Allergies/Adverse Reactions: Allergies No Known Allergies Allergy (Verified 11/22/17 02:38) Objective Vital Signs 12/10/17 12:00 12/10/17 14:00 12/10/17 14:30 Temperature 99.6 F Pulse Rate 121 H 121 H Respiratory Rate 18 21 Pulse Oximetry 98 98 12/10/17 16:00 12/10/17 18:00 12/10/17 19:00 Temperature 99.7 F H Pulse Rate 121 H 124 H 124 H Respiratory Rate 26 H 24 Pulse Oximetry 98 98 12/10/17 20:00 12/10/17 20:55 12/10/17 21:00 Temperature 99.4 F Pulse Rate 121 H 120 H Respiratory Rate 24 26 H 24 Pulse Oximetry 98 98 99 12/10/17 21:15 12/10/17 21:30 12/10/17 21:45 Temperature Pulse Rate 122 H 120 H 119 H Respiratory Rate 21 27 H 25 H Pulse Oximetry 97 98 97 12/10/17 22:00 12/10/17 22:15 12/10/17 22:30 Temperature Pulse Rate 118 H 118 H 118 H Respiratory Rate 22 21 20 Pulse Oximetry 99 98 98 12/10/17 22:45 12/10/17 23:00 12/10/17 23:15 Temperature Pulse Rate 119 H 118 H 118 H Respiratory Rate 19 22 21 Pulse Oximetry 99 98 98 12/10/17 23:30 12/10/17 23:45 12/11/17 00:00 Temperature 98.6 F Pulse Rate 120 H 119 H 119 H Respiratory Rate 24 21 22 Pulse Oximetry 98 100 99 12/11/17 00:15 12/11/17 00:30 12/11/17 00:45 Temperature Pulse Rate 119 H 120 H 120 H Respiratory Rate 21 19 19 Pulse Oximetry 99 99 99 12/11/17 01:00 12/11/17 01:03 11/06/18 01:15 Temperature Pulse Rate 118 H 120 H Respiratory Rate 22 19 25 H Pulse Oximetry 100 100 99 12/11/17 01:30 12/11/17 01:45 12/11/17 02:00 Temperature Pulse Rate 119 H 119 H 118 H Respiratory Rate 22 20 20 Pulse Oximetry 99 100 99 12/11/17 02:15 12/11/17 02:30 12/11/17 02:45 Temperature Pulse Rate 73 122 H 122 H Respiratory Rate 38 H 28 H 21 Pulse Oximetry 92 L 98 99 12/11/17 03:00 12/11/17 03:15 12/11/17 03:30 Temperature Pulse Rate 119 H 118 H 119 H Respiratory Rate 19 20 19 Pulse Oximetry 99 99 99 12/11/17 03:45 12/11/17 03:52 12/11/17 04:00 Temperature 99.6 F Pulse Rate 118 H 117 H Respiratory Rate 19 18 18 Pulse Oximetry 99 100 99 12/11/17 04:15 12/11/17 04:30 12/11/17 04:45 Temperature Pulse Rate 118 H 116 H 119 H Respiratory Rate 28 H 45 H 41 H Pulse Oximetry 99 99 99 12/11/17 05:00 12/11/17 05:15 12/11/17 07:27 Temperature Pulse Rate 122 H 116 H Respiratory Rate 26 H 21 18 Pulse Oximetry 99 100 100 12/11/17 10:26 12/11/17 11:10 Temperature 99.3 F Pulse Rate 115 H Respiratory Rate 18 18 Pulse Oximetry 100 99 Intake & Output 12/10/17 12/11/17 12/11/17 18:59 06:59 18:59 Intake Total 1141 / 1141 3319.2588 / 3319.2588 150 / 150 Output Total 3905 / 3905 810 / 810 Balance -2764 / -2764 2509.2588 / 2509.2588 150 / 150 Weight 74.9 kg Intake: IV 550 / 550 2632.2588 / 2632.2588 150 / 150 Versed Inj 50 mg In 50 ml @ 2 100 / 100 50 / 50 MG/HR 2 mls/hr IV.CONT TITRATE PRN Rx#:[id number] Intralipid 20% Inj 250 ML @ 31. 250 / 250 25 mls/hr IV.SIG Q24H [facility] Rx#: [id number] Mycamine Inj 100 MG In NS Inj 100 / 100 100 / 100 100 ML @ 100 mls/hr IV.SIG Q24H [facility] Rx#:[id number] Zosyn 2.25 GM Premix 50 ML @ 100 / 100 100 / 100 100 mls/hr IV.SIG Q8H [facility] Rx#: [id number] Sodium Chloride 23.4% Inj 5.5 2032.2588 / 2032.2588 MEQ Sodium Acetate Inj 29.5 MEQ KCl Inj 20 MEQ Calcium Chloride Inj 4.5 MEQ MVI-12 Inj 10 ML Folvite Inj 1 MG In Clinimix 5%/D20W Inj 2,000 ML @ 65 mls/hr IV.SIG Q24H [facility] Rx#: [id number] fentaNYL 10 mcg/mL Premix Drip 250 / 250 250 / 250 2,500 mcg In 250 ml @ 50 MCG/HR 5 mls/hr IV.SIG TITRATE PRN Rx #:[id number] Tube Feeding 411 / 411 567 / 567 Tube Irrigant 180 / 180 120 / 120 Intake (Blood Product) Amt 0 / 0 Rbc As-3 Leukoreduced Unit 0 / 0 [id number] Output: Urine 0 / 0 0 / 0 Stool 800 / 800 500 / 500 Pleural Fluid 0 / 0 Hemodialysis Amount 2800 / 2800 Gastric Drainage 0 / 0 Right Nare Nasogastric Tube 0 / 0 Wound Drainage 255 / 255 270 / 270 # 1 Right Abdomen 5 / 5 20 / 20 # 2 Right Abdomen 250 / 250 250 / 250 Chest Tube Drainage 50 / 50 40 / 40 #1 Left Pleural 50 / 50 40 / 40 Other: Date of Last Bowel Movement 12/10/17 12/10/17 12/11/17 12/11/17 07:40 Stool Stool Occult Blood (DEB) - Pending 12/08/17 18:25 Fluid - Peritoneal fluid Gram Stain - Final 12/08/17 18:25 Fluid - Peritoneal fluid Body Fluid Culture - Final No growth in 72 hours (aerobically and anaerobically ) 12/07/17 10:10 Fluid - Pleural fluid Acid Fast Bacilli Smear - Final No acid fast bacilli seen 12/07/17 10:10 Fluid - Pleural fluid Mycobacterial Culture - Pending 12/07/17 10:10 Fluid - Pleural fluid Gram Stain - Final 12/07/17 10:10 Fluid - Pleural fluid Body Fluid Culture - Final No growth in 72 hours (aerobically and anaerobically ) Lab - Hematology Results 12/10/17 12/11/17 05:00 06:25 WBC 20.8 H 18.5 H RBC 2.42 L 1.92 L Hgb 7.4 L 5.8 L* Hct 21.8 L 17.6 L* MCV 90.1 91.5 MCH 30.6 30.1 MCHC 33.9 32.8 RDW 15.8 15.0 Plt Count 433 371 MPV 9.7 9.6 Prelim Diff (Auto) Slide review pending Slide review pending Neut % (Auto) 79.5 H 78.2 H Lymph % (Auto) 5.5 L 6.0 L [place] % (Auto) 13.0 H 13.0 H Eos % (Auto) 1.3 2.3 Baso % (Auto) 0.7 0.5 Neut # (Auto) 16.6 H 14.5 H Lymph # (Auto) 1.1 1.1 [place] # (Auto) 2.7 H 2.4 H Eos # (Auto) 0.3 0.4 Baso # (Auto) 0.1 0.1 WBC Differential Manual diff final Manual diff final Seg Neuts % (Manual) 79 H 70 Band Neuts % (Manual) 2 2 Lymphocytes % (Manual) 8 L 8 L Monocytes % (Manual) 6 5 Eosinophils % (Manual) 1 5 H Metamyelocytes % (Man) 2 H 5 H Myelocytes % (Man) 2 H 4 H Promyelocytes % (Man) 1 H Abs Neuts (Manual) 17.7 H 15.2 H Nucleated RBCs/100 WBC 1 H Differential Comment . . Platelet Estimate Normal Normal Platelet Morphology Normal Normal Stomatocytes 1+ H Lab - Chemistry Results 12/09/17 12/09/17 12/09/17 12:19 15:44 19:56 Sodium Potassium Chloride Carbon Dioxide Anion Gap BUN Creatinine Estimated GFR POC Glucose 144 H 170 H 123 H Random Glucose Calcium Phosphorus Total Bilirubin AST ALT Alkaline Phosphatase Total Protein Albumin 12/10/17 12/10/17 12/10/17 00:20 04:00 05:00 Sodium 137 Potassium 4.4 D Chloride 98 Carbon Dioxide 24.8 Anion Gap 14 BUN 96 H Creatinine 7.15 H Estimated GFR 10 L POC Glucose 173 H 135 H Random Glucose 151 H Calcium 7.9 L Phosphorus 6.6 H D Total Bilirubin AST ALT Alkaline Phosphatase Total Protein Albumin 1.5 L 12/10/17 12/10/17 12/10/17 07:38 11:39 16:13 Sodium Potassium Chloride Carbon Dioxide Anion Gap BUN Creatinine Estimated GFR POC Glucose 155 H 156 H 133 H Random Glucose Calcium Phosphorus Total Bilirubin AST ALT Alkaline Phosphatase Total Protein Albumin 12/10/17 12/11/17 12/11/17 20:35 00:12 03:34 Sodium Potassium Chloride Carbon Dioxide Anion Gap BUN Creatinine Estimated GFR POC Glucose 151 H 146 H 156 H Random Glucose Calcium Phosphorus Total Bilirubin AST ALT Alkaline Phosphatase Total Protein Albumin 12/11/17 12/11/17 06:25 08:42 Sodium 138 Potassium 4.3 Chloride 98 Carbon Dioxide 26.9 Anion Gap 13 BUN 90 H Creatinine 5.99 H Estimated GFR 12 L POC Glucose 142 H Random Glucose 142 H Calcium 7.8 L Phosphorus 6.0 H Total Bilirubin 1.0 AST 133 H ALT 185 H Alkaline Phosphatase 352 H Total Protein 6.2 L Albumin 1.4 L Imaging: ITS Impressions Head MRI 12/03/17 00:00 CONCLUSION: 1. Minimal nonspecific periventricular white matter changes. 2. No restricted diffusion to suggest an acute ischemic event. 3. No evidence for significant ischemic changes. Abdomen/Pelvis CT 12/04/17 00:02 CONCLUSION: 1. Interim midline laparotomy and gastrectomy with apparent Dinh-en-Y. 2. Bowel gas pattern consistent with obstruction of the duodenum and proximal jejunum. I don't see a mass. There does seem to be some jejunal wall thickening around the jejunostomy tube. 3. Wall thickening and mucosal enhancement of the colon consistent with moderate severity colitis. C. difficile colitis would be in the differential. 4. Solid organs are within normal limits. 5. Small ascites. Also diffuse body wall edema/anasarca. No perceptible hemorrhage. Chest CT 12/04/17 00:06 CONCLUSION: 1. Left greater than right pleural effusions and basilar atelectasis. 2. No hemorrhage or hematoma demonstrated. 3. Distended and fluid-filled esophagus. No wall thickening. Patient is status post gastrectomy. Nasogastric tube is at the GE junction. 4. Body wall edema/anasarca. Abdomen X-Ray 12/08/17 00:00 CONCLUSION: 1. 2 left-sided abdominal catheters. 2. Nonspecific bowel gas pattern. Chest X-Ray 12/11/17 06:00 CONCLUSION: Worsening in aeration in the left lower lobe Physical Exam: PHYSICAL EXAMINATION: GENERAL: Patient on the vent. Sedated. HEENT: No icterus. NECK: Supple without adenopathy or swelling. LUNGS: Decreased breath sounds. Left chest tube has serous drainage. HEART: Regular S1, S2. No audible murmur. ABDOMEN: Positive bowel sounds. ZAINAB drains x exits the RLQ abdomen and has serosanguineous drainage EXTREMITIES: No clubbing or cyanosis. Non pitting edema of b/l upper extremities. SKIN: No diffuse rash. NEUROLOGIC: unable to assess, intubated. PSYCHIATRIC: Unable to assess. Assessment and Plan - Plan IMPRESSION: 1. Candidemia following gastric perforation and gastric ischemia. Blood culture at [facility] in [place] on 11/26 had Starr glabrata. Repeat blood culture is negative. 2. Status post abdominal surgery. 3. Acute respiratory failure. left pleural effusion. 4. Aspiration. 5. Acute kidney disease. 6. Recent cardiac arrest. 7. Leukocytosis. White blood cell count remains elevated. abx associated diarrhea, bowel wall thickening c.diff neg 2/2 RECOMMENDATIONS: 1. Continue micafungin for candidemia. 2. Continue the piperacillin/tazobactam. 3. Monitor white blood cell count. 4. Monitor temperature. 5. Monitor clinical status.
--- NOTE | 2017-12-11 13:49 | P.PNGS ---
Subjective Interval history: Called by SVETLANA Tsai at 0700-- patient with maroon colored stools overnight; drop in hmg Seen again about 1130--- stool output slowing down; VS remain stable Physical Exam Vital signs: Vital Signs 12/10/17 14:00 12/10/17 14:30 12/10/17 16:00 Temperature 99.7 F H Pulse Rate 121 H 121 H Respiratory Rate 21 26 H Pulse Oximetry 98 98 12/10/17 18:00 12/10/17 19:00 12/10/17 20:00 Temperature 99.4 F Pulse Rate 124 H 124 H 121 H Respiratory Rate 24 24 Pulse Oximetry 98 98 12/10/17 20:55 12/10/17 21:00 12/10/17 21:15 Temperature Pulse Rate 120 H 122 H Respiratory Rate 26 H 24 21 Pulse Oximetry 98 99 97 12/10/17 21:30 12/10/17 21:45 12/10/17 22:00 Temperature Pulse Rate 120 H 119 H 118 H Respiratory Rate 27 H 25 H 22 Pulse Oximetry 98 97 99 12/10/17 22:15 12/10/17 22:30 12/10/17 22:45 Temperature Pulse Rate 118 H 118 H 119 H Respiratory Rate 21 20 19 Pulse Oximetry 98 98 99 12/10/17 23:00 12/10/17 23:15 12/10/17 23:30 Temperature Pulse Rate 118 H 118 H 120 H Respiratory Rate 22 21 24 Pulse Oximetry 98 98 98 12/10/17 23:45 12/11/17 00:00 12/11/17 00:15 Temperature 98.6 F Pulse Rate 119 H 119 H 119 H Respiratory Rate 21 22 21 Pulse Oximetry 100 99 99 12/11/17 00:30 12/11/17 00:45 12/11/17 01:00 Temperature Pulse Rate 120 H 120 H 118 H Respiratory Rate 19 19 22 Pulse Oximetry 99 99 100 12/11/17 01:03 12/11/17 01:15 12/11/17 01:30 Temperature Pulse Rate 120 H 119 H Respiratory Rate 19 25 H 22 Pulse Oximetry 100 99 99 12/11/17 01:45 12/11/17 02:00 12/11/17 02:15 Temperature Pulse Rate 119 H 118 H 73 Respiratory Rate 20 20 38 H Pulse Oximetry 100 99 92 L 12/11/17 02:30 12/11/17 02:45 12/11/17 03:00 Temperature Pulse Rate 122 H 122 H 119 H Respiratory Rate 28 H 21 19 Pulse Oximetry 98 99 99 12/11/17 03:15 12/11/17 03:30 12/11/17 03:45 Temperature Pulse Rate 118 H 119 H 118 H Respiratory Rate 20 19 19 Pulse Oximetry 99 99 99 12/11/17 03:52 12/11/17 04:00 12/11/17 04:15 Temperature 99.6 F Pulse Rate 117 H 118 H Respiratory Rate 18 18 28 H Pulse Oximetry 100 99 99 12/11/17 04:30 12/11/17 04:45 12/11/17 05:00 Temperature Pulse Rate 116 H 119 H 122 H Respiratory Rate 45 H 41 H 26 H Pulse Oximetry 99 99 99 12/11/17 05:15 12/11/17 07:27 12/11/17 08:00 Temperature 99.5 F Pulse Rate 116 H 121 H Respiratory Rate 21 18 18 Pulse Oximetry 100 100 100 12/11/17 09:00 12/11/17 10:00 12/11/17 10:26 Temperature 99.4 F 99.3 F Pulse Rate 114 H 111 H 115 H Respiratory Rate 20 18 18 Pulse Oximetry 100 100 100 12/11/17 11:00 12/11/17 11:10 12/11/17 11:32 Temperature 99.5 F Pulse Rate 117 H 119 H Respiratory Rate 20 18 20 Pulse Oximetry 99 99 99 12/11/17 12:00 Temperature 99.7 F H Pulse Rate 112 H Respiratory Rate 18 Pulse Oximetry 99 Intake & Output 12/10/17 12/11/17 12/11/17 18:59 06:59 18:59 Intake Total 1141 / 1141 3319.2588 / 3319.2588 550 / 550 Output Total 3905 / 3905 810 / 810 Balance -2764 / -2764 2509.2588 / 2509.2588 550 / 550 Weight 74.9 kg Intake: IV 550 / 550 2632.2588 / 2632.2588 150 / 150 Versed Inj 50 mg In 50 ml @ 2 100 / 100 50 / 50 MG/HR 2 mls/hr IV.CONT TITRATE PRN Rx#:[id number] Intralipid 20% Inj 250 ML @ 31. 250 / 250 25 mls/hr IV.SIG Q24H [facility] Rx#: [id number] Mycamine Inj 100 MG In NS Inj 100 / 100 100 / 100 100 ML @ 100 mls/hr IV.SIG Q24H [facility] Rx#:[id number] Zosyn 2.25 GM Premix 50 ML @ 100 / 100 100 / 100 100 mls/hr IV.SIG Q8H [facility] Rx#: [id number] Sodium Chloride 23.4% Inj 5.5 2032.2588 / 2032.2588 MEQ Sodium Acetate Inj 29.5 MEQ KCl Inj 20 MEQ Calcium Chloride Inj 4.5 MEQ MVI-12 Inj 10 ML Folvite Inj 1 MG In Clinimix 5%/D20W Inj 2,000 ML @ 65 mls/hr IV.SIG Q24H [facility] Rx#: [id number] fentaNYL 10 mcg/mL Premix Drip 250 / 250 250 / 250 2,500 mcg In 250 ml @ 50 MCG/HR 5 mls/hr IV.SIG TITRATE PRN Rx #:[id number] Tube Feeding 411 / 411 567 / 567 Tube Irrigant 180 / 180 120 / 120 Intake (Blood Product) Amt 400 / 400 Rbc As-3 Leukoreduced Unit 0 / 0 [id number] Rbc As-3 Leukoreduced Unit 400 / 400 [id number] Output: Urine 0 / 0 0 / 0 Stool 800 / 800 500 / 500 Pleural Fluid 0 / 0 Hemodialysis Amount 2800 / 2800 Gastric Drainage 0 / 0 Right Nare Nasogastric Tube 0 / 0 Wound Drainage 255 / 255 270 / 270 # 1 Right Abdomen 5 / 5 20 / 20 # 2 Right Abdomen 250 / 250 250 / 250 Chest Tube Drainage 50 / 50 40 / 40 #1 Left Pleural 50 / 50 40 / 40 Other: Date of Last Bowel Movement 12/10/17 12/10/17 12/11/17 Narrative: Intubated/Sedated Mildly tachycardic Abd: soft; dressing intact; JP1 with blood clot --no drainage; JP2 with serosanguineous drainage BUE edema - Urinary Catheter Management Indwelling Temp Sensing Catheter Cath placed during this visit: no Results - Labs 12/12/17 03:35 12/12/17 03:35 Laboratory Results - last 24 hr 12/04/17 12/07/1718 10:46 12:47 16:13 WBC RBC Hgb Hct MCV MCH MCHC RDW Plt Count MPV Prelim Diff (Auto) Neut % (Auto) Lymph % (Auto) [place] % (Auto) Eos % (Auto) Baso % (Auto) Neut # (Auto) Lymph # (Auto) [place] # (Auto) Eos # (Auto) Baso # (Auto) WBC Differential Seg Neuts % (Manual) Band Neuts % (Manual) Lymphocytes % (Manual) Monocytes % (Manual) Eosinophils % (Manual) Metamyelocytes % (Man) Myelocytes % (Man) Promyelocytes % (Man) Abs Neuts (Manual) Differential Comment Platelet Estimate Platelet Morphology Stomatocytes Sodium Potassium Chloride Carbon Dioxide Anion Gap BUN Creatinine Estimated GFR POC Glucose 133 H Random Glucose Calcium Phosphorus Total Bilirubin AST ALT Alkaline Phosphatase Total Protein Albumin Blood Type Antibody Screen MTS Gel Crossmatch See Detail See Detail 12/10/17 12/11/17 12/11/17 20:35 00:12 03:34 WBC RBC Hgb Hct MCV MCH MCHC RDW Plt Count MPV Prelim Diff (Auto) Neut % (Auto) Lymph % (Auto) [place] % (Auto) Eos % (Auto) Baso % (Auto) Neut # (Auto) Lymph # (Auto) [place] # (Auto) Eos # (Auto) Baso # (Auto) WBC Differential Seg Neuts % (Manual) Band Neuts % (Manual) Lymphocytes % (Manual) Monocytes % (Manual) Eosinophils % (Manual) Metamyelocytes % (Man) Myelocytes % (Man) Promyelocytes % (Man) Abs Neuts (Manual) Differential Comment Platelet Estimate Platelet Morphology Stomatocytes Sodium Potassium Chloride Carbon Dioxide Anion Gap BUN Creatinine Estimated GFR POC Glucose 151 H 146 H 156 H Random Glucose Calcium Phosphorus Total Bilirubin AST ALT Alkaline Phosphatase Total Protein Albumin Blood Type Antibody Screen MTS Gel Crossmatch 12/11/17 12/11/17 12/11/17 06:25 06:25 08:25 WBC 18.5 H RBC 1.92 L Hgb 5.8 L* Hct 17.6 L* MCV 91.5 MCH 30.1 MCHC 32.8 RDW 15.0 Plt Count 371 MPV 9.6 Prelim Diff (Auto) Slide review pending Neut % (Auto) 78.2 H Lymph % (Auto) 6.0 L [place] % (Auto) 13.0 H Eos % (Auto) 2.3 Baso % (Auto) 0.5 Neut # (Auto) 14.5 H Lymph # (Auto) 1.1 [place] # (Auto) 2.4 H Eos # (Auto) 0.4 Baso # (Auto) 0.1 WBC Differential Manual diff final Seg Neuts % (Manual) 70 Band Neuts % (Manual) 2 Lymphocytes % (Manual) 8 L Monocytes % (Manual) 5 Eosinophils % (Manual) 5 H Metamyelocytes % (Man) 5 H Myelocytes % (Man) 4 H Promyelocytes % (Man) 1 H Abs Neuts (Manual) 15.2 H Differential Comment . Platelet Estimate Normal Platelet Morphology Normal Stomatocytes 1+ H Sodium 138 Potassium 4.3 Chloride 98 Carbon Dioxide 26.9 Anion Gap 13 BUN 90 H Creatinine 5.99 H Estimated GFR 12 L POC Glucose Random Glucose 142 H Calcium 7.8 L Phosphorus 6.0 H Total Bilirubin 1.0 AST 133 H ALT 185 H Alkaline Phosphatase 352 H Total Protein 6.2 L Albumin 1.4 L Blood Type A Positive Antibody Screen Negative MTS Gel Crossmatch See Detail 12/11/17 08:42 WBC RBC Hgb Hct MCV MCH MCHC RDW Plt Count MPV Prelim Diff (Auto) Neut % (Auto) Lymph % (Auto) [place] % (Auto) Eos % (Auto) Baso % (Auto) Neut # (Auto) Lymph # (Auto) [place] # (Auto) Eos # (Auto) Baso # (Auto) WBC Differential Seg Neuts % (Manual) Band Neuts % (Manual) Lymphocytes % (Manual) Monocytes % (Manual) Eosinophils % (Manual) Metamyelocytes % (Man) Myelocytes % (Man) Promyelocytes % (Man) Abs Neuts (Manual) Differential Comment Platelet Estimate Platelet Morphology Stomatocytes Sodium Potassium Chloride Carbon Dioxide Anion Gap BUN Creatinine Estimated GFR POC Glucose 142 H Random Glucose Calcium Phosphorus Total Bilirubin AST ALT Alkaline Phosphatase Total Protein Albumin Blood Type Antibody Screen MTS Gel Crossmatch - Imaging Imaging: ITS Impressions Head MRI 12/03/17 00:00 CONCLUSION: 1. Minimal nonspecific periventricular white matter changes. 2. No restricted diffusion to suggest an acute ischemic event. 3. No evidence for significant ischemic changes. Abdomen/Pelvis CT 12/04/17 00:02 CONCLUSION: 1. Interim midline laparotomy and gastrectomy with apparent Dinh-en-Y. 2. Bowel gas pattern consistent with obstruction of the duodenum and proximal jejunum. I don't see a mass. There does seem to be some jejunal wall thickening around the jejunostomy tube. 3. Wall thickening and mucosal enhancement of the colon consistent with moderate severity colitis. C. difficile colitis would be in the differential. 4. Solid organs are within normal limits. 5. Small ascites. Also diffuse body wall edema/anasarca. No perceptible hemorrhage. Chest CT 12/04/17 00:06 CONCLUSION: 1. Left greater than right pleural effusions and basilar atelectasis. 2. No hemorrhage or hematoma demonstrated. 3. Distended and fluid-filled esophagus. No wall thickening. Patient is status post gastrectomy. Nasogastric tube is at the GE junction. 4. Body wall edema/anasarca. Abdomen X-Ray 12/08/17 00:00 CONCLUSION: 1. 2 left-sided abdominal catheters. 2. Nonspecific bowel gas pattern. Chest X-Ray 12/11/17 06:00 CONCLUSION: Worsening in aeration in the left lower lobe Assessment and Plan - Assessment (1) Gastric perforation Code(s): K25.5 - Chronic or unspecified gastric ulcer with perforation Status : Acute Plan: 47yo male s/p Exlap and gastrectomy for gastric perforation, s/p esophagojejunostomy at [facility] -Intubated -Consulted GI--plan for NM bleeding scan and then scope -Transfuse 2 units PRBCs -Continue to monitor -Discussed with Dr. Bacon and Dr. King The exam, history, and the medical decision-making described in the above note were completed with the assistance of the mid-level provider. I reviewed and agree with the findings presented. I attest that I had a [id number] encounter with the patient on the same day, and personally performed and documented my assessment and findings in the medical record.
--- NOTE | 2017-12-11 14:54 | NM ---
EXAM DATE: 12/11/2017 2:43 PM EST AGE/SEX: 47 years / Male INDICATIONS: Rectal bleeding. CLINICAL DATA: This is the patient's initial encounter. Patient reports that signs and symptoms have been present for 1 day and indicates a pain score of 0/10. MEDICAL/SURGICAL HISTORY: None. None. COMPARISON: No prior exams available for comparison. TECHNIQUE: Following the modified in vitro labeling of autologous red cells, dynamic continuous image s were acquired for two hours. ?? DOSE: 21.2 mCi Tc 99m Ultratag Labeled Red Blood Cells IV IMAGING TIME: 2 hr FINDINGS: Biodistribution: There is a very good labeling of red cells without significant uptake in the gastri c wall. There is good delineation of the blood pool of the spleen and abdominal vessels. Bleeding: No episodes of active GI bleeding are observed during two hours of continuous observation . There is minimal gastric activity. There is normal renal and bladder activity. CONCLUSION: 1. Negative examination with no evidence of acute GI bleeding. Electronically signed by: Edwin Grant MD 12/11/2017 2:53 PM EST
--- NOTE | 2017-12-11 15:18 | P.PNGI ---
Subjective Interval history: Patient intubated and mechanically ventilated Maroon colored stools draining from rectal tube Hemoglobin 5.8 hematocrit 17.8 Physical Exam Vital signs: Vital Signs 12/10/17 16:00 12/10/17 18:00 12/10/17 19:00 Temperature 99.7 F H Pulse Rate 121 H 124 H 124 H Respiratory Rate 26 H 24 Pulse Oximetry 98 98 12/10/17 20:00 12/10/17 20:55 12/10/17 21:00 Temperature 99.4 F Pulse Rate 121 H 120 H Respiratory Rate 24 26 H 24 Pulse Oximetry 98 98 99 12/10/17 21:15 12/10/17 21:30 12/10/17 21:45 Temperature Pulse Rate 122 H 120 H 119 H Respiratory Rate 21 27 H 25 H Pulse Oximetry 97 98 97 12/10/17 22:00 12/10/17 22:15 12/10/17 22:30 Temperature Pulse Rate 118 H 118 H 118 H Respiratory Rate 22 21 20 Pulse Oximetry 99 98 98 12/10/17 22:45 12/10/17 23:00 12/10/17 23:15 Temperature Pulse Rate 119 H 118 H 118 H Respiratory Rate 19 22 21 Pulse Oximetry 99 98 98 12/10/17 23:30 12/10/17 23:45 12/11/17 00:00 Temperature 98.6 F Pulse Rate 120 H 119 H 119 H Respiratory Rate 24 21 22 Pulse Oximetry 98 100 99 12/11/17 00:15 12/11/17 00:30 12/11/17 00:45 Temperature Pulse Rate 119 H 120 H 120 H Respiratory Rate 21 19 19 Pulse Oximetry 99 99 99 12/11/17 01:00 12/11/17 01:03 12/11/17 01:15 Temperature Pulse Rate 118 H 120 H Respiratory Rate 22 19 25 H Pulse Oximetry 100 100 99 12/11/17 01:30 12/11/17 01:45 12/11/17 02:00 Temperature Pulse Rate 119 H 119 H 118 H Respiratory Rate 22 20 20 Pulse Oximetry 99 100 99 12/11/17 02:15 12/11/17 02:30 12/11/17 02:45 Temperature Pulse Rate 73 122 H 122 H Respiratory Rate 38 H 28 H 21 Pulse Oximetry 92 L 98 99 12/11/17 03:00 12/11/17 03:15 12/11/17 03:30 Temperature Pulse Rate 119 H 118 H 119 H Respiratory Rate 19 20 19 Pulse Oximetry 99 99 99 12/11/17 03:45 12/11/17 03:52 12/11/17 04:00 Temperature 99.6 F Pulse Rate 118 H 117 H Respiratory Rate 19 18 18 Pulse Oximetry 99 100 99 12/11/17 04:15 12/11/17 04:30 12/11/17 04:45 Temperature Pulse Rate 118 H 116 H 119 H Respiratory Rate 28 H 45 H 41 H Pulse Oximetry 99 99 99 12/11/17 05:00 12/11/17 05:15 12/11/17 07:27 Temperature Pulse Rate 122 H 116 H Respiratory Rate 26 H 21 18 Pulse Oximetry 99 100 100 12/11/17 08:00 12/11/17 09:00 12/11/17 10:00 Temperature 99.5 F 99.4 F Pulse Rate 121 H 114 H 111 H Respiratory Rate 18 20 18 Pulse Oximetry 100 100 100 12/11/17 10:26 12/11/17 11:00 12/11/17 11:10 Temperature 99.3 F Pulse Rate 115 H 117 H Respiratory Rate 18 20 18 Pulse Oximetry 100 99 99 12/11/17 11:32 12/11/17 12:00 12/11/17 14:00 Temperature 99.5 F 99.7 F H Pulse Rate 119 H 112 H 113 H Respiratory Rate 20 18 Pulse Oximetry 99 99 12/11/17 14:56 Temperature Pulse Rate Respiratory Rate Pulse Oximetry 100 Intake & Output 12/10/17 12/11/17 12/11/17 18:59 06:59 18:59 Intake Total 1141 / 1141 3319.2588 / 3319.2588 550 / 550 Output Total 3905 / 3905 810 / 810 Balance -2764 / -2764 2509.2588 / 2509.2588 550 / 550 Weight 74.9 kg Intake: IV 550 / 550 2632.2588 / 2632.2588 150 / 150 Versed Inj 50 mg In 50 ml @ 2 100 / 100 50 / 50 MG/HR 2 mls/hr IV.CONT TITRATE PRN Rx#:[id number] Intralipid 20% Inj 250 ML @ 31. 250 / 250 25 mls/hr IV.SIG Q24H [facility] Rx#: [id number] Mycamine Inj 100 MG In NS Inj 100 / 100 100 / 100 100 ML @ 100 mls/hr IV.SIG Q24H [facility] Rx#:[id number] Zosyn 2.25 GM Premix 50 ML @ 100 / 100 100 / 100 100 mls/hr IV.SIG Q8H [facility] Rx#: [id number] Sodium Chloride 23.4% Inj 5.5 2032.2588 / 2032.2588 MEQ Sodium Acetate Inj 29.5 MEQ KCl Inj 20 MEQ Calcium Chloride Inj 4.5 MEQ MVI-12 Inj 10 ML Folvite Inj 1 MG In Clinimix 5%/D20W Inj 2,000 ML @ 65 mls/hr IV.SIG Q24H [facility] Rx#: [id number] fentaNYL 10 mcg/mL Premix Drip 250 / 250 250 / 250 2,500 mcg In 250 ml @ 50 MCG/HR 5 mls/hr IV.SIG TITRATE PRN Rx #:[id number] Tube Feeding 411 / 411 567 / 567 Tube Irrigant 180 / 180 120 / 120 Intake (Blood Product) Amt 400 / 400 Rbc As-3 Leukoreduced Unit 0 / 0 [id number] Rbc As-3 Leukoreduced Unit 400 / 400 [id number] Output: Urine 0 / 0 0 / 0 Stool 800 / 800 500 / 500 Pleural Fluid 0 / 0 Hemodialysis Amount 2800 / 2800 Gastric Drainage 0 / 0 Right Nare Nasogastric Tube 0 / 0 Wound Drainage 255 / 255 270 / 270 # 1 Right Abdomen 5 / 5 20 / 20 # 2 Right Abdomen 250 / 250 250 / 250 Chest Tube Drainage 50 / 50 40 / 40 #1 Left Pleural 50 / 50 40 / 40 Other: Date of Last Bowel Movement 12/10/17 12/10/17 12/11/17 - Constitutional Comments: Critically ill - Routine HEENT Exam Head: Present: normocephalic - Routine Respiratory Exam Present: patient mechanically ventilated, CTA bilaterally - Routine Cardiovascular Exam Present: RRR, tachycardia Comments: Mild - Routine Abdominal Exam Present: soft, drain Comments: ZAINAB x2 with serosanguineous drainage present - Routine Extremities Exam Absent: edema Comments: Upper extremity edema bilaterally - Routine Skin Exam Present: dry, warm - Urinary Catheter Management Indwelling Temp Sensing Catheter Cath placed during this visit: no Results - Labs CBC & Chem 7: 12/11/17 06:25 12/11/17 06:25 Laboratory Results - last 24 hr 12/04/17 12/07/17 12/10/17 10:46 12:47 16:13 WBC RBC Hgb Hct MCV MCH MCHC RDW Plt Count MPV Prelim Diff (Auto) Neut % (Auto) Lymph % (Auto) [place] % (Auto) Eos % (Auto) Baso % (Auto) Neut # (Auto) Lymph # (Auto) [place] # (Auto) Eos # (Auto) Baso # (Auto) WBC Differential Seg Neuts % (Manual) Band Neuts % (Manual) Lymphocytes % (Manual) Monocytes % (Manual) Eosinophils % (Manual) Metamyelocytes % (Man) Myelocytes % (Man) Promyelocytes % (Man) Abs Neuts (Manual) Differential Comment Platelet Estimate Platelet Morphology Stomatocytes Sodium Potassium Chloride Carbon Dioxide Anion Gap BUN Creatinine Estimated GFR POC Glucose 133 H Random Glucose Calcium Phosphorus Total Bilirubin AST ALT Alkaline Phosphatase Total Protein Albumin Blood Type Antibody Screen MTS Gel Crossmatch See Detail See Detail 12/10/17 12/11/17 12/11/17 20:35 00:12 03:34 WBC RBC Hgb Hct MCV MCH MCHC RDW Plt Count MPV Prelim Diff (Auto) Neut % (Auto) Lymph % (Auto) [place] % (Auto) Eos % (Auto) Baso % (Auto) Neut # (Auto) Lymph # (Auto) [place] # (Auto) Eos # (Auto) Baso # (Auto) WBC Differential Seg Neuts % (Manual) Band Neuts % (Manual) Lymphocytes % (Manual) Monocytes % (Manual) Eosinophils % (Manual) Metamyelocytes % (Man) Myelocytes % (Man) Promyelocytes % (Man) Abs Neuts (Manual) Differential Comment Platelet Estimate Platelet Morphology Stomatocytes Sodium Potassium Chloride Carbon Dioxide Anion Gap BUN Creatinine Estimated GFR POC Glucose 151 H 146 H 156 H Random Glucose Calcium Phosphorus Total Bilirubin AST ALT Alkaline Phosphatase Total Protein Albumin Blood Type Antibody Screen MTS Gel Crossmatch 12/11/17 12/11/17 12/11/17 06:25 06:25 08:25 WBC 18.5 H RBC 1.92 L Hgb 5.8 L* Hct 17.6 L* MCV 91.5 MCH 30.1 MCHC 32.8 RDW 15.0 Plt Count 371 MPV 9.6 Prelim Diff (Auto) Slide review pending Neut % (Auto) 78.2 H Lymph % (Auto) 6.0 L [place] % (Auto) 13.0 H Eos % (Auto) 2.3 Baso % (Auto) 0.5 Neut # (Auto) 14.5 H Lymph # (Auto) 1.1 [place] # (Auto) 2.4 H Eos # (Auto) 0.4 Baso # (Auto) 0.1 WBC Differential Manual diff final Seg Neuts % (Manual) 70 Band Neuts % (Manual) 2 Lymphocytes % (Manual) 8 L Monocytes % (Manual) 5 Eosinophils % (Manual) 5 H Metamyelocytes % (Man) 5 H Myelocytes % (Man) 4 H Promyelocytes % (Man) 1 H Abs Neuts (Manual) 15.2 H Differential Comment . Platelet Estimate Normal Platelet Morphology Normal Stomatocytes 1+ H Sodium 138 Potassium 4.3 Chloride 98 Carbon Dioxide 26.9 Anion Gap 13 BUN 90 H Creatinine 5.99 H Estimated GFR 12 L POC Glucose Random Glucose 142 H Calcium 7.8 L Phosphorus 6.0 H Total Bilirubin 1.0 AST 133 H ALT 185 H Alkaline Phosphatase 352 H Total Protein 6.2 L Albumin 1.4 L Blood Type A Positive Antibody Screen Negative MTS Gel Crossmatch See Detail 12/11/17 08:42 WBC RBC Hgb Hct MCV MCH MCHC RDW Plt Count MPV Prelim Diff (Auto) Neut % (Auto) Lymph % (Auto) [place] % (Auto) Eos % (Auto) Baso % (Auto) Neut # (Auto) Lymph # (Auto) [place] # (Auto) Eos # (Auto) Baso # (Auto) WBC Differential Seg Neuts % (Manual) Band Neuts % (Manual) Lymphocytes % (Manual) Monocytes % (Manual) Eosinophils % (Manual) Metamyelocytes % (Man) Myelocytes % (Man) Promyelocytes % (Man) Abs Neuts (Manual) Differential Comment Platelet Estimate Platelet Morphology Stomatocytes Sodium Potassium Chloride Carbon Dioxide Anion Gap BUN Creatinine Estimated GFR POC Glucose 142 H Random Glucose Calcium Phosphorus Total Bilirubin AST ALT Alkaline Phosphatase Total Protein Albumin Blood Type Antibody Screen MTS Gel Crossmatch Microbiology 12/08/17 18:25 Fluid - Peritoneal fluid Gram Stain - Final 12/08/17 18:25 Fluid - Peritoneal fluid Body Fluid Culture - Final No growth in 72 hours (aerobically and anaerobically ) 12/07/17 10:10 Fluid - Pleural fluid Acid Fast Bacilli Smear - Final No acid fast bacilli seen - Imaging Impressions GI Bleed Scan Nuclear Medicine 12/11/17 00:00 CONCLUSION: 1. Negative examination with no evidence of acute GI bleeding. Chest X-Ray 12/11/17 06:00 CONCLUSION: Worsening in aeration in the left lower lobe Assessment and Plan (1) Anemia Status: Acute Code(s): D64.9 - Anemia, unspecified - Plan Maroon colored liquid stool noted in rectal tube drainage bag. Suspected possible lower GI bleeding with anemia. Hemoglobin 5.8 hematocrit 17.6. 2 units of packed RBCs ordered for transfusion. Mild tachycardia 112-118 Hemodynamically stable with systolic blood pressure 152/54 Plan -PEG tube intact Jevity tube feeding -Bleeding scan -Enteroscopy -Monitor for active bleeding -Monitor hemoglobin and hematocrit -Transfuse if required -Avoid anticoagulants -Continue PPI -Supportive care -Further recommendations to follow This patient has been seen by myself and Dr. King and this note is written on her behalf - Attending Attestation Dr. King
--- NOTE | 2017-12-11 15:59 | GIPROC ---
[facility] [address] [facility]. [facility] [place], [address] EGD PROCEDURE REPORT EXAM DATE: 12/11/2017 PATIENT NAME: Pk Marshall MR #: [id number] BIRTHDATE: 1970 ATTENDING: Maddi King MD ORDER #: [id number] RAFTSMAN: Suellen Levine and Ashly De Anda STATUS: inpatient INDICATIONS: The patient is a 47 yr old male here for an Enteroscopy due to gi bleeding PROCEDURE PERFORMED: enteroscopy MEDICATIONS: None and Per Anesthesia. TOPICAL ANESTHETIC: CONSENT: The patient understands the risks and benefits of the procedure and understands that these risks include, but are not limited to: sedation, allergic reaction, infection, perforation and/or bleeding. Alternative means of evaluation and treatment include, among others: physical exam, x-rays, and/or surgical intervention. The patient elects to proceed with this endoscopic procedure. medical equipment was checked for proper function. Hand hygiene and appropriate measures for infection prevention was taken. After the risks, benefits and alternatives of the procedure were thoroughly explained, Informed consent was verified, confirmed and timeout was successfully executed by the treatment team. The patient was anesthetized with topical anesthesia and the Pentax [id number] endoscope was introduced through the mouth and advanced to the proximal jejunum. The gastroscope was then slowly withdrawn and removed. S/p total gastrectomy esophagojejunal anastomosis normal- some old blood, no fresh blood no blood seen in jejunum. ADVERSE EVENTS: There were no complications. IMPRESSIONS: S/p total gastrectomy esophagojejunal anastomosis normal- some old blood, no fresh blood no blood seen in jejunum RECOMMENDATIONS: Ct abdomen/pelvis colonoscopy in am depending on ct result PATIENT CONDITION: stable DISPOSITION: Inpatient REPEAT EXAM: Return as needed for EGD Maddi King MD eSigned: Maddi King MD 12/11/2017 3:59 PM cc:
[2017-12-11] MEDS ORDERED: Diatrizoate Meglum/Diatrizoate Sod Liq 9 ML UDC PO ONE (16:18)
--- NOTE | 2017-12-11 17:09 | P.PNCC ---
Subjective Subjective Remarks/Hospital Course: Patient was [place] [facility] [place] and transferred to [facility] 11/26/17 after the following hospital course: 47-year-old -Citizen Of [place] male with reportedly no past medical or past surgical history who was admitted to hospitalist service 11/22/17 after presenting with abdominal pain, nausea, vomiting. He had CT abd/pelvis with massive gastric distention. NG tube had been placed. I was called to patient's bedside for CODE BLUE PEA arrest. CPR was ongoing and patient had massive abdominal distension and gastric regurgitant in the airway. He was emergently intubated and large amount of gastric secretions suctioned from oropharynx. After 21 minutes of CPR, ROSC was obtained and he was profoundly hypotensive. Continued aggressive fluid resuscitation and initiated dopamine. He was transferred to [facility] where CVL and R radial art line were placed and he was given 7 L of crystalloid and albumin. CXR demonstrated pneumoperitoneum and Dr. Martin Gudino was called emergently and he immediately contacted OR for emergent ex lap. He had intraabdominal hypertension with IAP of 40 mmHg, though fortunately was able to be ventilated adequately after rocuronium 50 mg IV and was transferred to OR. Dr. Martin Gudino took to the operating room early in the morning on 11/23 and discovered tension pneumoperitoneum, massive gastric distension, ischemia of the proximal 2/3 of the stomach and large gastric perforation with massive intraperitoneal contamination with food particles. Dr. Isaacs placed 2 NGT and decompressed 2 L of succus. Patient had initial improvement in vital signs in the immediate postoperative period, however he subsequently became hypotensive requiring upward titration of levophed and addition of vasopressin and stress dose hydrocortisone. He remains on levophed 10 mcg/min, neosynephrine 80 mcg/ min, vasopressin 0.04 units/min with overall vasopressor requirement weaning overnight. He is oliguric and creatinine is continuing to climb. He was given 2 L of crystalloid and albumin overnight. He does have significant fluid losses with combination of abdominal dressing and NGT output, so I will give an additional L of crystalloid now to monitor hourly response as he certainly does not appear volume overloaded. Nonetheless Flotrac numbers are suggesting adequate volume status and we may be seeing the consequence of ischemic ATN. May ultimately require HD, however not at this time. Abdomen remains open and plan is to re-explore 11/25. 11/25: Patient has acceptable hemodynamics by Flotrac but remains septic with requirements for phenylephrine 200 mics per minute, Levophed 8 mics per minute and vasopressin 0.04 units/min for blood pressure support. This has improved overnight and the Bhavesh-Synephrine support has been weaned off completely. Acid base balance is acceptable. ATN has developed which will undoubtedly require hemodialysis. Potassium level is normal. He is at increased risk for an anesthetic now but there is an urgent need to check for residual gastric necrosis. 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 Since the source control surgery, the maintenance of normal acid-base balance has been less difficult. Patient remains anuric with a rising creatinine above 6.0. He is clearly ahead on volume and will benefit from dialysis. A 2 lumen hemodialysis catheter was placed on 11/25 and has been packed with dilute heparin solution. The right internal jugular central line is been in place for 4 days and accessed multiple times. The femoral art line has been in for 4 days. Shock liver was apparent after the cardiac arrest reflecting a transaminitis, elevated bilirubin, and prolonged INR. The INR has remained normal following the transfusion of 4 units of fresh frozen plasma prior to surgery yesterday. A 10% dextrose infusion continues because of ongoing problems with hypoglycemia. Thrombocytopenia at 37,000 persists. He has remained on antibiotic coverage with Pipracil/tazobactam and fungal coverage with fluconazole, all adjusted for renal failure. Present vasopressor requirements include levophed at 7 mics per minute and vasopressin at 0.04 units/min. The chest x-ray is consistent with minor aspiration at the time of his preoperative cardiac arrest on the floor and cultures have subsequently grown Klebsiella, pansensitive. The operative note will clarify the extent of the surgery but in essence the distal esophagus is stapled off and marked with 2 Prolene sutures. The antrum of the stomach is oversewn. Most of the stomach has been removed. The abdomen is open with a VAC dressing applied. Subjective: 11/29: Bowel was in discontinuity following subtotal gastrectomy and patient was transferred to [facility]. On reexploration 11/28 he underwent Dinh-en-y esophagojejunostomy, feeding jejunostomy placement, diagnostic EGD, primary fascial closure. Wound vac was applied to abdomen (though currently wet to dry dressing in place upon arrival). He was reportedly found to have candidemia and was started on micafungin and has undergone ophtho eval. Lines including CVL, Vascath and art line have all been changed at [facility] (though not clear when). He remains on mechanical ventilation and has been weaned off pressors. He was found to have BUE DVTs and is on heparin drip. He is on TPN and has been started on trickle tube feeds with Nepro via jejunostomy. NGT is to [facility]. He underwent HD postoperatively on 11/28. He has now been transferred back [place] [facility] [place] management. I have updated his father and stepmother. 11/30: Patient re-admitted s/p transfer from [facility] overnight, otherwise no acute issues. Scheduled to undergo HD today. 12/01: T-max 101.7, leukocytosis to 27,000 with bandemia. Now 3 days following Dinh-en-Y reconstruction of GI tract following sub-total gastrectomy for gastric necrosis. All new lines placed after diagnosis of candidemia. TPN infusing, jejunostomy at trickle flow and can be increased slowly per general surgery. 12/02: Marked leukocytosis with bandemia persists. Afebrile over last 24 hours. Leave NG tube across the esophageal anastomosis and surgical service will direct timing of contrast study about 7 days following surgery. Continue with spontaneous breathing trials. 12/03: extubated yesterday. since then, has not followed commands, and does not talk. appears to have clinically an aphasia, although his uremia or severe hypoactive delirium could present this way. purposeful movements. will obtain MRI to rule out acute ischemia, as this appears to be a new mental status change (11/29 /[facility] notes state interactive on ventilator). 12/04: reintubated overnight: more output from ZAINAB drains. hgb dropped to 7 this AM: receiving 1 unit prbc. MRI negative for acute change. EEG ordered today to rule out subclinical status epilepticus. also concern overnight for aspiration event. 12/05: T-max 99. WBC 24,000. Reintubated yesterday for respiratory failure probably related to aspiration. Trickle feeding continues through jejunostomy. Nasogastric tube is through the anastomosis and is to low intermittent. 12/06: Afebrile. WBC 26,000. Bandemia has largely resolved. There are bilateral pleural effusions which may need to be tapped to rule out infection or leak. Both lower lobes are consolidated on CAT scan, probably representing compressive atelectasis from the effusions. 12/07: White count remains elevated at 25,000. Total parenteral nutrition infusing and tolerated. Altered mental status persists, possibly related to the cardiac arrest on the floor prior to transfer to the ICU. 12/08: Tolerating total parenteral nutrition with good glucose control. Leukocytosis persists. Fluid tap from left chest bit cloudy, cultures pending. Maintaining adequate gas exchange on lower levels of fractional inspired oxygen. Aim for extubation trial again soon. 12/09: Patient considerably less edematous over the past several days following successful dialysis runs. Continually fails attempts at weaning parameters and desaturation. Left chest drainage is no growth by culture. White blood cell count remains elevated. 12/10: Remains intubated. WBC count elevated but stable. Left chest tube with 260 mL output in 24 hours. BUN/creatinine remains elevated 12/11: Remains intubated sedated hemoglobin dropped to 5.8 today. RN has noted lower GI bleed. Protonix IV every 12 started and GI consulted. Transfuse 2 units PRBC. Keep n.p.o. discussed with Dr. Cristina Objective Vital Signs / I&O: Vital Signs 12/10/17 18:00 12/10/17 19:00 12/10/17 20:00 Temperature 99.4 F Pulse Rate 124 H 124 H 121 H Respiratory Rate 24 24 Pulse Oximetry 98 98 12/10/17 20:55 12/10/17 21:00 12/10/17 21:15 Temperature Pulse Rate 120 H 122 H Respiratory Rate 26 H 24 21 Pulse Oximetry 98 99 97 12/10/17 21:30 12/10/17 21:45 12/10/17 22:00 Temperature Pulse Rate 120 H 119 H 118 H Respiratory Rate 27 H 25 H 22 Pulse Oximetry 98 97 99 12/10/17 22:15 12/10/17 22:30 12/10/17 22:45 Temperature Pulse Rate 118 H 118 H 119 H Respiratory Rate 21 20 19 Pulse Oximetry 98 98 99 12/10/17 23:00 12/10/17 23:15 12/10/17 23:30 Temperature Pulse Rate 118 H 118 H 120 H Respiratory Rate 22 21 24 Pulse Oximetry 98 98 98 12/10/17 23:45 12/11/17 00:00 12/11/17 00:15 Temperature 98.6 F Pulse Rate 119 H 119 H 119 H Respiratory Rate 21 22 21 Pulse Oximetry 100 99 99 12/11/17 00:30 12/11/17 00:45 12/11/17 01:00 Temperature Pulse Rate 120 H 120 H 118 H Respiratory Rate 19 19 22 Pulse Oximetry 99 99 100 12/11/17 01:03 12/11/17 01:15 12/11/17 01:30 Temperature Pulse Rate 120 H 119 H Respiratory Rate 19 25 H 22 Pulse Oximetry 100 99 99 12/11/17 01:45 12/11/17 02:00 12/11/17 02:15 Temperature Pulse Rate 119 H 118 H 73 Respiratory Rate 20 20 38 H Pulse Oximetry 100 99 92 L 12/11/17 02:30 12/11/17 02:45 12/11/17 03:00 Temperature Pulse Rate 122 H 122 H 119 H Respiratory Rate 28 H 21 19 Pulse Oximetry 98 99 99 12/11/17 03:15 12/11/17 03:30 12/11/17 03:45 Temperature Pulse Rate 118 H 119 H 118 H Respiratory Rate 20 19 19 Pulse Oximetry 99 99 99 12/11/17 03:52 12/11/17 04:00 12/11/17 04:15 Temperature 99.6 F Pulse Rate 117 H 118 H Respiratory Rate 18 18 28 H Pulse Oximetry 100 99 99 12/11/17 04:30 12/11/17 04:45 12/11/17 05:00 Temperature Pulse Rate 116 H 119 H 122 H Respiratory Rate 45 H 41 H 26 H Pulse Oximetry 99 99 99 12/11/17 05:15 12/11/17 07:27 12/11/17 08:00 Temperature 99.5 F Pulse Rate 116 H 121 H Respiratory Rate 21 18 18 Pulse Oximetry 100 100 100 12/11/17 09:00 12/11/17 10:00 12/11/17 10:26 Temperature 99.4 F 99.3 F Pulse Rate 114 H 111 H 115 H Respiratory Rate 20 18 18 Pulse Oximetry 100 100 100 12/11/17 11:00 12/11/17 11:10 12/11/17 11:32 Temperature 99.5 F Pulse Rate 117 H 119 H Respiratory Rate 20 18 20 Pulse Oximetry 99 99 99 12/11/17 12:00 12/11/17 14:00 12/11/17 14:56 Temperature 99.7 F H Pulse Rate 112 H 113 H Respiratory Rate 18 Pulse Oximetry 99 100 Intake & Output 12/10/17 12/11/17 12/11/17 18:59 06:59 18:59 Intake Total 1141 / 1141 3319.2588 / 3319.2588 1000 / 1000 Output Total 3905 / 3905 810 / 810 Balance -2764 / -2764 2509.2588 / 2509.2588 1000 / 1000 Weight 74.9 kg Intake: IV 550 / 550 2632.2588 / 2632.2588 400 / 400 Versed Inj 50 mg In 50 ml @ 2 100 / 100 50 / 50 MG/HR 2 mls/hr IV.CONT TITRATE PRN Rx#:[id number] Intralipid 20% Inj 250 ML @ 31. 250 / 250 25 mls/hr IV.SIG Q24H COLE Rx#: [id number] Mycamine Inj 100 MG In NS Inj 100 / 100 100 / 100 100 ML @ 100 mls/hr IV.SIG Q24H COLE Rx#:[id number] Zosyn 2.25 GM Premix 50 ML @ 100 / 100 100 / 100 100 mls/hr IV.SIG Q8H COLE Rx#: [id number] Sodium Chloride 23.4% Inj 5.5 2.2588 / 2032.2588 MEQ Sodium Acetate Inj 29.5 MEQ KCl Inj 20 MEQ Calcium Chloride Inj 4.5 MEQ MVI-12 Inj 10 ML Folvite Inj 1 MG In Clinimix 5%/D20W Inj 2,000 ML @ 65 mls/hr IV.SIG Q24H COLE Rx#: [id number] fentaNYL 10 mcg/mL Premix Drip 250 / 250 250 / 250 250 / 250 2,500 mcg In 250 ml @ 50 MCG/HR 5 mls/hr IV.SIG TITRATE PRN Rx #:[id number] Tube Feeding 411 / 411 567 / 567 Tube Irrigant 180 / 180 120 / 120 Anesthesia Amount 200 / 200 Intake (Blood Product) Amt 400 / 400 Rbc As-3 Leukoreduced Unit 0 / 0 [id number] Rbc As-3 Leukoreduced Unit 400 / 400 [id number] Output: Urine 0 / 0 0 / 0 Stool 800 / 800 500 / 500 Pleural Fluid 0 / 0 Hemodialysis Amount 2800 / 2800 Gastric Drainage 0 / 0 Right Nare Nasogastric Tube 0 / 0 Wound Drainage 255 / 255 270 / 270 # 1 Right Abdomen 5 / 5 20 / 20 # 2 Right Abdomen 250 / 250 250 / 250 Chest Tube Drainage 50 / 50 40 / 40 #1 Left Pleural 50 / 50 40 / 40 Other: Date of Last Bowel Movement 12/10/17 12/10/17 12/11/17 Result Diagrams: 12/11/17 06:25 12/11/17 06:25 Objective Remarks: GEN: Chronically ill-appearing, sedated for vent synchrony HEENT: NCAT, pupils 3 mm and reactive bilaterally NECK: RIJ vasc-cath and LIJ TLC present, clean/ dry/ intact CARDIO: NSR, regular rhythm, no JVD PULM: prvc, fio2 45%. equal chest rise. Scattered rhonchi persist, decreased breath sounds both bases. Left pigtail with 90 ml output in 24 hours ABD: Midline surgical bandages clean/ dry/ intact. ZAINAB #1 is anterior to esophagojejunostomy anastomosis, ZAINAB #2 posterior, both with serosanguineous drainage. Abdomen soft. Fascia is closed, skin is open, depth of wound is minimal. Open tissue is clean. SKIN: No rashes or lesions, dry NEURO: Moves 4 limbs spontaneously. Purposeful with arms, tracks with eyes. Does not follow commands. Opens eyes to voice. Assessment and Plan - Problem List (1) Gastric perforation Code(s): K25.5 - Chronic or unspecified gastric ulcer with perforation Status : Acute (2) Status post total gastrectomy and Dinh-en-Y esophagojejunal anastomosis Code(s): Z90.3 - Acquired absence of stomach [part of]; Z98.0 - Intestinal bypass and anastomosis status Status: Acute (3) Ischemic hepatitis Code(s): K75.9 - Inflammatory liver disease, unspecified Status: Acute (4) Gastric necrosis Code(s): K31.89 - Other diseases of stomach and duodenum Status: Acute (5) Thrombocytopenia Code(s): D69.6 - Thrombocytopenia, unspecified Status: Acute (6) Acute bilateral deep vein thrombosis (DVT) of upper extremities Code(s): I82.623 - Acute embolism and thrombosis of deep veins of upper extremity, bilateral Status: Acute (7) Anemia Code(s): D64.9 - Anemia, unspecified Status: Acute (8) Leukocytosis Code(s): D72.829 - Elevated white blood cell count, unspecified Status: Acute (9) Candidemia Code(s): B37.7 - Candidal sepsis Status: Acute (10) On total parenteral nutrition (TPN) Code(s): Z78.9 - Other specified health status Status: Acute (11) Acute hemodialysis patient Code(s): Z99.2 - Dependence on renal dialysis Status: Acute (12) JACLYN (acute kidney injury) Code(s): N17.9 - Acute kidney failure, unspecified Status: Acute (13) Aspiration pneumonia Code(s): J69.0 - Pneumonitis due to inhalation of food and vomit Status: Acute (14) Acute respiratory failure Code(s): J96.00 - Acute respiratory failure, unspecified whether with hypoxia or hypercapnia Status: Acute - Assessment and Plan Plan: NEURO: Acute metabolic encephalopathy- severe MRI 12/03: negative for acute change EEG -moderate to severe encephalopathy 12/04 Delirium vs. uremic encephalopathy vs anoxic brain injury following code RESP: Acute hypoxic and hypercarbic respiratory failure- recurrent, severe Healthcare associated aspiration pneumonia extubated 12/02, reintubated 12/03 overnight wean fio2 to keep spo2 > 90%. vent bundle aggressive pulmonary toilet. PT/OT Required reintubation 12/04 Persistent bilateral pleural effusions left greater than right, consolidation both lower lobes. L pigtail chest tube placed 12/07-exudative effusion per [facility] criteria CV: Cardiac arrest 11/23/17 (PEA arrest due to shock secondary to acute gastric perf and tension pneumoperitoneum) Septic shock, resolved Now off pressors. Concern for anoxic injury at the time of arrest. GI: s/p gastric perforation with tension pneumoperitoneum status post ex lap with primary repair of anterior gastric perforation with stapler 11/23 On second look 11/25 he was found to have gastric necrosis requiring subtotal gastrectomy and placement of Abthera VAC dressing. The bowel was in discontinuity and he was transferred to [facility]. On 11/28 he underwent reexploration with Dinh-en-y esophagojejunostomy, feeding jejunostomy placement, diagnostic EGD, primary fascial closure Gastric necrosis Ischemic hepatopathy NGT to LIWS, do not manipulate NGT per general surgery orders from [facility]. Has feeding jejunostomy and tube feeds with Nepro 10 mL per hour had been started at [facility], continue for now with further management per general surgery. ZAINAB drains in place #1 anterior to anastomosis, #2 posterior to the anastomosis. Management per general surgery. Continue TPN renal formula 46 mL/hr. Intermittent lipids daily. General surgery recs appreciated-Dr. Cook following CT abd/pelvis 12/03 without acute abdominal pathology. Had right upper quadrant ultrasound on 11/27/17 that demonstrated contracted gallbladder with sludge. No evidence of cholecystitis. Echogenicity in right liver related to focal fatty change or altered perfusion. Color Doppler interrogation through the region demonstrates patent vascularity. FEN/RENAL: JACLYN secondary to ischemic ATN HD as started 11/26 at [facility]. Had HD 3 hours on 11/28 at [facility] with 1700 mL UF Has Delgado in place currently. Has R IJ Vascath. Monitor I/O and electrolytes. Nephrology following prealbumin low at 14 on 12/01. trend weekly. ID: Gastric perforation with large amount particulate peritoneal contamination 11/23 Acute Aspiration pneumonia Candidemia - reportedly blood cultures at OSH were positive. Will request records from microbiology. Patient had been on micafungin 100 mg IV daily (started at [facility]) with last administration at 10 AM on 11/29. Was previously on diflucan IV. On Zosyn 2.25 IV every 8 hours with last administration 11/29 at noon. Will continue zosyn/micafungin. Patient was evaluated by ophthalmology prior to transfer. I do not see an ophthalmology note in the transfer documentation. I have requested this document. Requested culture data from [facility]. Send blood culture x2 sets now. Sputum culture 11/24 with pansensitive Klebsiella pneumonia ID following GI consulted for lower GI bleed further workup per GI HEME: Thrombocytopenia Bilateral upper extremity DVTs Anemia secondary to acute blood loss-requiring transfusion Transfuse 2 units PRBC today U/s 11/26 BUE - thrombus R axillary, brachial and basilic veins and thrombus in left axillary and left brachial veins. U/s bilateral lower extremities 11/26 at [facility] negative from common femoral to popliteal vein levels. Arrived on heparin drip Hematology consult was obtained at [facility] and recommended heparin drip and transfuse prn for platelets <50k. Placed on hold due to anemia and GI bleed 1 unit prbc 12/04. recheck in AM. ENDO: Monitor Glucose q4 hours and use low dose insulin sliding scale as indicated. PROPH: Holding heparin drip and hold subcu for DVT prophylaxis (oozing under dressing). Protonix 40 mg IV q12 for stress ulcer prophylaxis. ACCESS: R IJ vascath , L IJ CVL, L radial art line. All existing lines were replaced at [facility]. Change both soon. FULL CODE Overall impression: This gentleman is critically ill and nutritionally depleted. He had deteriorated clinical status requiring placement back on mechanical ventilation and we have not been able to get him extubated. Jejunostomy tube feedings are at a lower rate because of abundant diarrheal stool. TPN is infusing wean slowly CCT 35 MIN (6) Acute bilateral deep vein thrombosis (DVT) of upper extremities Qualifiers: Affected thrombotic vein of extremity: brachial Qualified Code(s): I82.623 - Acute embolism and thrombosis of deep veins of upper extremity, bilateral (14) Acute respiratory failure Qualifiers: Respiratory failure complication: hypoxia Qualified Code(s): J96.01 - Acute respiratory failure with hypoxia
[2017-12-11 17:24] LABS: Hematocrit 22.9 % (39.0-51.0); Hemoglobin 7.7 gm/dL (13.0-17.0)
[2017-12-12] MEDS: Insulin NovoLOG Aspart Correctional Sugar Inj SQ SCH ×6 (00:26→21:13)
[2017-12-12] MEDS: Oral Hygiene Kit OROPHARYNG SCH ×8 (00:26→16:01)
--- NOTE | 2017-12-12 00:39 | CT ---
EXAM DATE: 12/12/2017 12:15 AM EST AGE/SEX: 47 years / Male INDICATIONS: Follow up for GI bleeding. CLINICAL DATA: This is the patient's subsequent encounter. Patient reports that signs and symptoms h ave been present for 1 week and indicates a pain score of Nonresponsive. MEDICAL/SURGICAL HISTORY: . Perforated bowel . Gastrectomy bowel resection RADIATION DOSE: 17.11 CTDI (mGy) COMPARISON: [facility] [place] ABDOMEN & PELVIS W CONTRAST, 12/04/2017. . TECHNIQUE: Multiple contiguous axial images were obtained through the abdomen. Images were obtained using multiple row detector helical technique. Using automated exposure control and adjustment of the mA and/or kV according to patient size, radiation dose was kept as low as reasonably achievable to o btain optimal diagnostic quality images. DICOM format image data is available electronically for rev iew and comparison. FINDINGS: Surgical drains enter the abdomen at locations in the upper quadrants bilaterally. Lower Lungs: There has been improvement in aeration, particularly in the right lung base with decreas e in consolidative change in the posterior base and decrease in effusion. Only slight improvement on the contralateral left side. Liver: The liver has a homogeneous density without space-occupying lesion. There is no dilation of th e biliary tree. Spleen: Homogeneous density without enlargement. Pancreas: Unremarkable without mass or calcification. Kidneys: Normal in size and shape. No evidence of mass or hydronephrosis. Adrenal Glands: Unremarkable. Aorta: The aorta and proximal iliac vessels are grossly unremarkable without aneurysmal dilation. Bowel/Mesentery: Contrast present in portions of the colon. Rectal tube in place. No dilated small b owel. Abdominal Wall: Midline incision Retroperitoneum: No evidence of adenopathy in the retrocrural, para-aortic, or deep pelvic regions. Bladder: Contours are smooth. Reproductive Organs: No abnormal masses or calcifications seen. Inguinal: The inguinal region is unremarkable without evidence of adenopathy. Bony Structures: Lipoma in the gluteal musculature on the left. No acute bony findings. CONCLUSION: Postoperative abdomen appearance. Electronically signed by: Jordi Brumfield MD 12/12/2017 12:38 AM EST
[2017-12-12] MEDS: hydrALAZINE HCl Inj 20 MG/ML Vial IV.PUSH PRN (03:18)
[2017-12-12 04:19] LABS: Baso # (Auto) 0.1 th/mm3 (0.0-0.2); Baso % (Auto) 0.4 % (0.0-2.0); Eos # (Auto) 0.5 th/mm3 (0.0-0.4); Eos % (Auto) 2.5 % (0.0-4.0); Hematocrit 21.2 % (39.0-51.0); Hemoglobin 7.5 gm/dL (13.0-17.0); Lymph # (Auto) 1.5 th/mm3 (1.0-4.8); Lymph % (Auto) 7.7 % (9.0-44.0); Mean Corpuscular HGB Conc 35.4 % (32.0-36.0); Mean Corpuscular Hemoglobin 31.5 pg (27.0-34.0); Mono # (Auto) 3.3 th/mm3 (0.0-0.9); Neut # (Auto) 14.2 th/mm3 (1.8-7.7); Neut % (Auto) 72.4 % (16.0-70.0); Platelet Count 344 th/mm3 (150-450); Red Blood Count 2.38 mil/mm3 (4.50-5.90); Red Cell Distribution Width 15.2 % (11.6-17.2); White Blood Count 19.7 th/mm3 (4.0-11.0)
[2017-12-12 04:46] LABS: Albumin 1.4 g/dL (3.4-5.0); Calcium 8.2 mg/dL (8.5-10.1); Carbon Dioxide 23.8 meq/L (21.0-32.0); Phosphorus 8.3 mg/dL (2.5-4.9)
[2017-12-12 05:03] LABS: Eosinophils 5 % (0-4); Lymphocytes 11 % (9-44); Metamyelocytes 3 % (0-1); Monocytes 7 % (0-8); Myelocytes 6 % (0-0); Tallied Nucleated RBC 3 (0-0)
[2017-12-12 05:04] LABS: Platelet Estimate Normal (Normal)
[2017-12-12] MEDS: Piperacil/Tazo 2.25 GM Premix 50 ML IV.SIG SCH ×3 (06:30→21:16)
[2017-12-12] MEDS: Midazolam 50 MG/50 ML Inj 50 MG/50 ML BAG IV.CONT PRN ×2 (06:31→17:36)
[2017-12-12] MEDS: Chlorhexidine 0.12% Oral Kit 15 ML UDC OROPHARYNG SCH ×4 (07:36→20:13)
[2017-12-12] MEDS: Labetalol HCl Inj 100 MG/20 ML Vial IV.PUSH PRN (07:36)
[2017-12-12] MEDS: Pantoprazole Inj 40 MG Vial IV.PUSH SCH ×2 (08:43→21:15)
[2017-12-12] MEDS: fentaNYL 10 mcg/mL Premix Drip 2,500 MCG/250 ML BAG IV.SIG PRN ×2 (08:43→18:16)
[2017-12-12] MEDS: Calcium Acetate 667 MG Capsule PO SCH ×3 (08:44→17:39)
[2017-12-12] MEDS: hydrALAZINE 50 MG Tablet PO SCH ×3 (08:44→17:39)
--- NOTE | 2017-12-12 10:15 | P.PNCC ---
Subjective Subjective Remarks/Hospital Course: Patient was recently [place] [facility] [place] and transferred to [facility] 11/26/17 after the following hospital course: 47-year-old -Irish male with reportedly no past medical or past surgical history who was admitted to hospitalist service 11/22/17 after presenting with abdominal pain, nausea, vomiting. He had CT abd/pelvis with massive gastric distention. NG tube had been placed. I was called to patient's bedside for CODE BLUE PEA arrest. CPR was ongoing and patient had massive abdominal distension and gastric regurgitant in the airway. He was emergently intubated and large amount of gastric secretions suctioned from oropharynx. After 21 minutes of CPR, ROSC was obtained and he was profoundly hypotensive. Continued aggressive fluid resuscitation and initiated dopamine. He was transferred to [facility] where CVL and R radial art line were placed and he was given 7 L of crystalloid and albumin. CXR demonstrated pneumoperitoneum and Dr. Martin Gudino was called emergently and he immediately contacted OR for emergent ex lap. He had intraabdominal hypertension with IAP of 40 mmHg, though fortunately was able to be ventilated adequately after rocuronium 50 mg IV and was transferred to OR. Dr. Martin Gudino took to the operating room early in the morning on 11/23 and discovered tension pneumoperitoneum, massive gastric distension, ischemia of the proximal 2/3 of the stomach and large gastric perforation with massive intraperitoneal contamination with food particles. Dr. Isaacs placed 2 NGT and decompressed 2 L of succus. Patient had initial improvement in vital signs in the immediate postoperative period, however he subsequently became hypotensive requiring upward titration of levophed and addition of vasopressin and stress dose hydrocortisone. He remains on levophed 10 mcg/min, neosynephrine 80 mcg/ min, vasopressin 0.04 units/min with overall vasopressor requirement weaning overnight. He is oliguric and creatinine is continuing to climb. He was given 2 L of crystalloid and albumin overnight. He does have significant fluid losses with combination of abdominal dressing and NGT output, so I will give an additional L of crystalloid now to monitor hourly response as he certainly does not appear volume overloaded. Nonetheless Flotrac numbers are suggesting adequate volume status and we may be seeing the consequence of ischemic ATN. May ultimately require HD, however not at this time. Abdomen remains open and plan is to re-explore 11/25. 11/25: Patient has acceptable hemodynamics by Flotrac but remains septic with requirements for phenylephrine 200 mics per minute, Levophed 8 mics per minute and vasopressin 0.04 units/min for blood pressure support. This has improved overnight and the Bhavesh-Synephrine support has been weaned off completely. Acid base balance is acceptable. ATN has developed which will undoubtedly require hemodialysis. Potassium level is normal. He is at increased risk for an anesthetic now but there is an urgent need to check for residual gastric necrosis. 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 Since the source control surgery, the maintenance of normal acid-base balance has been less difficult. Patient remains anuric with a rising creatinine above 6.0. He is clearly ahead on volume and will benefit from dialysis. A 2 lumen hemodialysis catheter was placed on 11/25 and has been packed with dilute heparin solution. The right internal jugular central line is been in place for 4 days and accessed multiple times. The femoral art line has been in for 4 days. Shock liver was apparent after the cardiac arrest reflecting a transaminitis, elevated bilirubin, and prolonged INR. The INR has remained normal following the transfusion of 4 units of fresh frozen plasma prior to surgery yesterday. A 10% dextrose infusion continues because of ongoing problems with hypoglycemia. Thrombocytopenia at 37,000 persists. He has remained on antibiotic coverage with Pipracil/tazobactam and fungal coverage with fluconazole, all adjusted for renal failure. Present vasopressor requirements include levophed at 7 mics per minute and vasopressin at 0.04 units/min. The chest x-ray is consistent with minor aspiration at the time of his preoperative cardiac arrest on the floor and cultures have subsequently grown Klebsiella, pansensitive. The operative note will clarify the extent of the surgery but in essence the distal esophagus is stapled off and marked with 2 Prolene sutures. The antrum of the stomach is oversewn. Most of the stomach has been removed. The abdomen is open with a VAC dressing applied. Subjective: 11/29: Bowel was in discontinuity following subtotal gastrectomy and patient was transferred to [facility]. On reexploration 11/28 he underwent Dinh-en-y esophagojejunostomy, feeding jejunostomy placement, diagnostic EGD, primary fascial closure. Wound vac was applied to abdomen (though currently wet to dry dressing in place upon arrival). He was reportedly found to have candidemia and was started on micafungin and has undergone ophtho eval. Lines including CVL, Vascath and art line have all been changed at [facility] (though not clear when). He remains on mechanical ventilation and has been weaned off pressors. He was found to have BUE DVTs and is on heparin drip. He is on TPN and has been started on trickle tube feeds with Nepro via jejunostomy. NGT is to [facility]. He underwent HD postoperatively on 11/28. He has now been transferred back to [facility] [place] ongoing management. I have updated his father and stepmother. 11/30: Patient re-admitted s/p transfer from [facility] overnight, otherwise no acute issues. Scheduled to undergo HD today. 12/01: T-max 101.7, leukocytosis to 27,000 with bandemia. Now 3 days following Dinh-en-Y reconstruction of GI tract following sub-total gastrectomy for gastric necrosis. All new lines placed after diagnosis of candidemia. TPN infusing, jejunostomy at trickle flow and can be increased slowly per general surgery. 12/02: Marked leukocytosis with bandemia persists. Afebrile over last 24 hours. Leave NG tube across the esophageal anastomosis and surgical service will direct timing of contrast study about 7 days following surgery. Continue with spontaneous breathing trials. 12/03: extubated yesterday. since then, has not followed commands, and does not talk. appears to have clinically an aphasia, although his uremia or severe hypoactive delirium could present this way. purposeful movements. will obtain MRI to rule out acute ischemia, as this appears to be a new mental status change (11/29 /[facility] notes state interactive on ventilator). 12/04: reintubated overnight: more output from ZAINAB drains. hgb dropped to 7 this AM: receiving 1 unit prbc. MRI negative for acute change. EEG ordered today to rule out subclinical status epilepticus. also concern overnight for aspiration event. 12/05: T-max 99. WBC 24,000. Reintubated yesterday for respiratory failure probably related to aspiration. Trickle feeding continues through jejunostomy. Nasogastric tube is through the anastomosis and is to low intermittent. 12/06: Afebrile. WBC 26,000. Bandemia has largely resolved. There are bilateral pleural effusions which may need to be tapped to rule out infection or leak. Both lower lobes are consolidated on CAT scan, probably representing compressive atelectasis from the effusions. 12/07: White count remains elevated at 25,000. Total parenteral nutrition infusing and tolerated. Altered mental status persists, possibly related to the cardiac arrest on the floor prior to transfer to the ICU. 12/08: Tolerating total parenteral nutrition with good glucose control. Leukocytosis persists. Fluid tap from left chest bit cloudy, cultures pending. Maintaining adequate gas exchange on lower levels of fractional inspired oxygen. Aim for extubation trial again soon. 12/09: Patient considerably less edematous over the past several days following successful dialysis runs. Continually fails attempts at weaning parameters and desaturation. Left chest drainage is no growth by culture. White blood cell count remains elevated. 12/10: Remains intubated. WBC count elevated but stable. Left chest tube with 260 mL output in 24 hours. BUN/creatinine remains elevated 12/11: Remains intubated sedated hemoglobin dropped to 5.8 today. RN has noted lower GI bleed. Protonix IV every 12 started and GI consulted. Transfuse 2 units PRBC. Keep n.p.o. discussed with Dr. Wellington 12/12: Patient remains intubated sedated for vent synchrony. Hemoglobin stable 7.5. Endoscopy negative yesterday CT abdomen pelvis no active bleeding. Hemodynamically remained stable. Receiving hemodialysis at this time. Left chest tube with high output 450 mL in 24 hours. Attempt weaning trials starting today Objective Vital Signs / I&O: Vital Signs 12/11/17 10:26 12/11/17 11:00 12/11/17 11:10 Temperature 99.3 F Pulse Rate 115 H 117 H Respiratory Rate 18 20 18 Pulse Oximetry 100 99 99 12/11/17 11:32 12/11/17 12:00 12/11/17 14:00 Temperature 99.5 F 99.7 F H Pulse Rate 119 H 112 H 113 H Respiratory Rate 20 18 Pulse Oximetry 99 99 12/11/17 14:56 12/11/17 16:00 12/11/17 17:00 Temperature 99.8 F H Pulse Rate 101 H 107 H Respiratory Rate 18 19 Pulse Oximetry 100 99 98 12/11/17 18:00 12/11/17 19:00 12/11/17 19:15 Temperature Pulse Rate 113 H 111 H 110 H Respiratory Rate 19 36 H Pulse Oximetry 100 98 98 12/11/17 19:30 12/11/17 19:45 12/11/17 20:00 Temperature 98.9 F Pulse Rate 110 H 110 H 106 H Respiratory Rate 21 Pulse Oximetry 98 98 98 12/11/17 20:13 12/11/17 20:15 12/11/17 20:30 Temperature Pulse Rate 109 H 107 H Respiratory Rate 18 Pulse Oximetry 97 98 99 12/11/17 20:45 12/11/17 21:00 12/11/17 21:15 Temperature Pulse Rate 108 H 106 H 105 H Respiratory Rate Pulse Oximetry 98 99 99 12/11/17 21:30 12/11/17 21:45 12/11/17 22:00 Temperature Pulse Rate 106 H 103 H 104 H Respiratory Rate 21 23 22 Pulse Oximetry 99 100 99 12/11/17 22:15 12/11/17 22:30 12/11/17 22:45 Temperature Pulse Rate 109 H 106 H 106 H Respiratory Rate 18 19 18 Pulse Oximetry 99 99 99 12/11/17 23:00 12/11/17 23:15 12/11/17 23:30 Temperature Pulse Rate 106 H 107 H 106 H Respiratory Rate 18 23 Pulse Oximetry 99 99 99 12/11/17 23:45 12/12/17 00:00 12/12/17 00:15 Temperature 98.0 F Pulse Rate 109 H 113 H 108 H Respiratory Rate 24 17 Pulse Oximetry 99 100 100 12/12/17 00:25 12/12/17 00:30 12/12/17 00:45 Temperature Pulse Rate 109 H 109 H Respiratory Rate 20 20 20 Pulse Oximetry 99 99 99 12/12/17 01:00 12/12/17 01:15 12/12/17 01:30 Temperature Pulse Rate 109 H 109 H 110 H Respiratory Rate 18 22 21 Pulse Oximetry 99 99 98 12/12/17 01:45 12/12/17 02:00 12/12/17 02:15 Temperature Pulse Rate 108 H 106 H 107 H Respiratory Rate 22 19 22 Pulse Oximetry 99 99 99 12/12/17 02:30 12/12/17 02:45 12/12/17 03:00 Temperature Pulse Rate 107 H 109 H 106 H Respiratory Rate 20 23 19 Pulse Oximetry 99 98 99 12/12/17 03:15 11/07/18 03:30 12/12/17 03:45 Temperature Pulse Rate 105 H 108 H 115 H Respiratory Rate 21 21 23 Pulse Oximetry 100 100 99 12/12/17 04:00 12/12/17 04:15 12/12/17 04:30 Temperature 98.0 F Pulse Rate 122 H 121 H 121 H Respiratory Rate 24 22 20 Pulse Oximetry 99 98 100 12/12/17 04:45 12/12/17 05:00 12/12/17 05:15 Temperature Pulse Rate 122 H 128 H 122 H Respiratory Rate 21 16 22 Pulse Oximetry 98 100 100 12/12/17 05:30 12/12/17 05:45 12/12/17 06:00 Temperature Pulse Rate 123 H 122 H 114 H Respiratory Rate 21 18 Pulse Oximetry 100 100 12/12/17 08:19 Temperature Pulse Rate Respiratory Rate 20 Pulse Oximetry 98 Intake & Output 12/11/17 12/12/17 12/12/17 18:59 06:59 18:59 Intake Total 1230 / 1230 2482.2588 / 2482.2588 300 / 300 Output Total 1155 / 1155 430 / 430 Balance 75 / 75 2052.2588 / 2052.2588 300 / 300 Weight 81.8 kg Intake: IV 450 / 450 2482.2588 / 2482.2588 300 / 300 Versed Inj 50 mg In 50 ml @ 2 50 / 50 100 / 100 MG/HR 2 mls/hr IV.CONT TITRATE PRN Rx#:[id number] Intralipid 20% Inj 250 ML @ 31. 250 / 250 25 mls/hr IV.SIG Q24H COLE Rx#: [id number] Mycamine Inj 100 MG In NS Inj 100 / 100 100 ML @ 100 mls/hr IV.SIG Q24H COLE Rx#:[id number] Zosyn 2.25 GM Premix 50 ML @ 50 / 50 50 / 50 50 / 50 100 mls/hr IV.SIG Q8H COLE Rx#: [id number] Sodium Chloride 23.4% Inj 5.5 1832.2588 / 1832.2588 MEQ Sodium Acetate Inj 29.5 MEQ KCl Inj 20 MEQ Calcium Chloride Inj 4.5 MEQ MVI-12 Inj 10 ML Folvite Inj 1 MG In Clinimix 5%/D20W Inj 2,000 ML @ 65 mls/hr IV.SIG Q24H [facility] Rx#: [id number] fentaNYL 10 mcg/mL Premix Drip 250 / 250 250 / 250 250 / 250 2,500 mcg In 250 ml @ 50 MCG/HR 5 mls/hr IV.SIG TITRATE PRN Rx #:[id number] Tube Feeding 0 / 0 Tube Irrigant 180 / 180 Anesthesia Amount 200 / 200 Intake (Blood Product) Amt 400 / 400 Rbc As-3 Leukoreduced Unit 0 / 0 [id number] Rbc As-3 Leukoreduced Unit 400 / 400 [id number] Output: Urine 0 / 0 Stool 500 / 500 50 / 50 Gastric Drainage 0 / 0 Right Nare Nasogastric Tube 0 / 0 Wound Drainage 355 / 355 205 / 205 # 1 Right Abdomen 5 / 5 5 / 5 # 2 Right Abdomen 350 / 350 200 / 200 Chest Tube Drainage 300 / 300 175 / 175 #1 Left Pleural 300 / 300 175 / 175 Other: Date of Last Bowel Movement 12/11/17 12/12/17 Result Diagrams: 12/12/17 03:35 12/12/17 03:35 Objective Remarks: GEN: Chronically ill-appearing, sedated for vent synchrony HEENT: NCAT, pupils 3 mm and reactive bilaterally NECK: RIJ vasc-cath and LIJ TLC present, clean/ dry/ intact CARDIO: NSR, regular rhythm, no JVD PULM: prvc, fio2 35%. equal chest rise. Scattered rhonchi persist, decreased breath sounds both bases. L pigtail with 450 ml output in 24 hr ABD: Midline surgical bandages clean/ dry/ intact. ZAINAB #1 is anterior to esophagojejunostomy anastomosis, ZAINAB #2 posterior, both with serosanguineous drainage. Abdomen soft. Fascia is closed, skin is open, depth of wound is minimal. Open tissue is clean. SKIN: No rashes or lesions, dry NEURO: Moves 4 limbs spontaneously. Purposeful with arms, tracks with eyes. Does not follow commands. Opens eyes to voice. Assessment and Plan - Problem List (1) Gastric perforation Code(s): K25.5 - Chronic or unspecified gastric ulcer with perforation Status : Acute (2) Status post total gastrectomy and Dinh-en-Y esophagojejunal anastomosis Code(s): Z90.3 - Acquired absence of stomach [part of]; Z98.0 - Intestinal bypass and anastomosis status Status: Acute (3) Ischemic hepatitis Code(s): K75.9 - Inflammatory liver disease, unspecified Status: Acute (4) Gastric necrosis Code(s): K31.89 - Other diseases of stomach and duodenum Status: Acute (5) Thrombocytopenia Code(s): D69.6 - Thrombocytopenia, unspecified Status: Acute (6) Acute bilateral deep vein thrombosis (DVT) of upper extremities Code(s): I82.623 - Acute embolism and thrombosis of deep veins of upper extremity, bilateral Status: Acute (7) Anemia Code(s): D64.9 - Anemia, unspecified Status: Acute (8) Leukocytosis Code(s): D72.829 - Elevated white blood cell count, unspecified Status: Acute (9) Candidemia Code(s): B37.7 - Candidal sepsis Status: Acute (10) On total parenteral nutrition (TPN) Code(s): Z78.9 - Other specified health status Status: Acute (11) Acute hemodialysis patient Code(s): Z99.2 - Dependence on renal dialysis Status: Acute (12) JACLYN (acute kidney injury) Code(s): N17.9 - Acute kidney failure, unspecified Status: Acute (13) Aspiration pneumonia Code(s): J69.0 - Pneumonitis due to inhalation of food and vomit Status: Acute (14) Acute respiratory failure Code(s): J96.00 - Acute respiratory failure, unspecified whether with hypoxia or hypercapnia Status: Acute - Assessment and Plan Plan: NEURO: Acute metabolic encephalopathy- severe MRI 12/03: negative for acute change EEG -moderate to severe encephalopathy 12/04 Delirium vs. uremic encephalopathy vs anoxic brain injury following code Start daily sedation vacation RESP: Acute hypoxic and hypercarbic respiratory failure- recurrent, severe Healthcare associated aspiration pneumonia Extubated 12/02, reintubated 12/03 overnight Wean fio2 to keep spo2 > 90%. vent bundle. DuoNeb Aggressive pulmonary toilet. PT/OT Required reintubation 12/04 Persistent bilateral pleural effusions left greater than right, consolidation both lower lobes. L pigtail chest tube placed 12/07-exudative effusion per LDH criteria. Maintain chest tube to suction due to high output Start spontaneous breathing trials CV: Cardiac arrest 11/23/17 (PEA arrest due to shock secondary to acute gastric perf and tension pneumoperitoneum) Septic shock, resolved off pressors. Hemodialysis with fluid removal GI: Gastric perf with tension pneumoperitoneum s/p ex lap with primary repair of anterior gastric perforation with stapler 11/23 On second look 11/25 found to have gastric necrosis requiring subtotal gastrectomy and placement of Abthera VAC dressing. The bowel was in discontinuity and he was transferred to [facility]. On 11/28 he underwent reexploration with Dinh-en-y esophagojejunostomy, feeding jejunostomy placement, diagnostic EGD, primary fascial closure Gastric necrosis Ischemic hepatopathy Lower GI bleed NGT to LIWS, do not manipulate NGT per general surgery orders from [facility]. Has feeding jejunostomy and tube feeds with Nepro ZAINAB drains in place #1 anterior to anastomosis, #2 posterior to the anastomosis. Management per general surgery. Continue TPN renal formula 46 mL/hr. Intermittent lipids daily. General surgery recs appreciated-Dr. Wellington following CT abd/pelvis 12/03 without acute abdominal pathology. GI consulted for lower GI bleed further workup per GI 12/[address] negative for active bleeding Had right upper quadrant ultrasound on 11/27/17 that demonstrated contracted gallbladder with sludge. No evidence of cholecystitis. Echogenicity in right liver related to focal fatty change or altered perfusion. FEN/RENAL: JACLYN secondary to ischemic ATN HD as started 11/26 at [facility]. Had HD 3 hours on 11/28 at [facility] with 1700 mL UF Has Delgado in place currently. Has R IJ Vascath. Monitor I/O and electrolytes. Nephrology following prealbumin low at 14 on 12/01. trend weekly. ID: Gastric perforation with large amount particulate peritoneal contamination 11/23 Acute Aspiration pneumonia Candidemia - reportedly blood cultures at OSH were positive. Patient had been on micafungin 100 mg IV daily (started at [facility]) with last administration at 10 AM on 11/29. Was previously on diflucan IV. On Zosyn 2.25 IV every 8 hours with last administration 11/29 at noon. Will continue zosyn/micafungin. Patient was evaluated by ophthalmology prior to transfer. Unable to find ophthalmology note in the transfer documentation. Requested culture data from [facility]. Sputum culture 11/24 with pansensitive Klebsiella pneumonia ID following HEME: Thrombocytopenia Bilateral upper extremity DVTs Anemia secondary to acute blood loss-requiring transfusion Transfused 2 units PRBC 12/11 U/s 11/26 BUE - thrombus R axillary, brachial and basilic veins and thrombus in left axillary and left brachial veins. U/s bilateral lower extremities 11/26 at [facility] negative from common femoral to popliteal vein levels. Arrived on heparin drip Hematology consult was obtained at [facility] and recommended heparin drip and transfuse prn for platelets <50k. Placed on hold due to anemia and GI bleed ENDO: Monitor Glucose q4 hours and use low dose insulin sliding scale as indicated. PROPH: Holding heparin drip and hold subcu for DVT prophylaxis (anemia requiring transfusion, oozing under dressing). Protonix 40 mg IV q12 for stress ulcer prophylaxis. ACCESS: R IJ vascath , L IJ CVL-need to continue for TPN. All existing lines were replaced at [facility]. FULL CODE Overall impression: This gentleman is critically ill and nutritionally depleted. He had deteriorated clinical status requiring placement back on mechanical ventilation and we have not been able to get him extubated. Jejunostomy tube feedings are at a lower rate because of abundant diarrheal stool. TPN is infusing wean slowly CCT 35 MIN (6) Acute bilateral deep vein thrombosis (DVT) of upper extremities Qualifiers: Affected thrombotic vein of extremity: brachial Qualified Code(s): I82.623 - Acute embolism and thrombosis of deep veins of upper extremity, bilateral (14) Acute respiratory failure Qualifiers: Respiratory failure complication: hypoxia Qualified Code(s): J96.01 - Acute respiratory failure with hypoxia
--- NOTE | 2017-12-12 10:32 | P.PNGS ---
Subjective Interval history: Intubated/Sedated No events overnight Physical Exam Vital signs: Vital Signs 12/11/17 11:00 12/11/17 11:10 12/11/17 11:32 Temperature 99.5 F Pulse Rate 117 H 119 H Respiratory Rate 20 18 20 Pulse Oximetry 99 99 99 12/11/17 12:00 12/11/17 14:00 12/11/17 14:56 Temperature 99.7 F H Pulse Rate 112 H 113 H Respiratory Rate 18 Pulse Oximetry 99 100 12/11/17 16:00 12/11/17 17:00 12/11/17 18:00 Temperature 99.8 F H Pulse Rate 101 H 107 H 113 H Respiratory Rate 18 19 19 Pulse Oximetry 99 98 100 12/11/17 19:00 12/11/17 19:15 12/11/17 19:30 Temperature Pulse Rate 111 H 110 H 110 H Respiratory Rate 36 H Pulse Oximetry 98 98 98 12/11/17 19:45 12/11/17 20:00 12/11/17 20:13 Temperature 98.9 F Pulse Rate 110 H 106 H Respiratory Rate 21 18 Pulse Oximetry 98 98 97 12/11/17 20:15 12/11/17 20:30 12/11/17 20:45 Temperature Pulse Rate 109 H 107 H 108 H Respiratory Rate Pulse Oximetry 98 99 98 12/11/17 21:00 12/11/17 21:15 12/11/17 21:30 Temperature Pulse Rate 106 H 105 H 106 H Respiratory Rate 21 Pulse Oximetry 99 99 99 12/11/17 21:45 12/11/17 22:00 12/11/17 22:15 Temperature Pulse Rate 103 H 104 H 109 H Respiratory Rate 23 22 18 Pulse Oximetry 100 99 99 12/11/17 22:30 12/11/17 22:45 12/11/17 23:00 Temperature Pulse Rate 106 H 106 H 106 H Respiratory Rate 19 18 18 Pulse Oximetry 99 99 99 12/11/17 23:15 12/11/17 23:30 12/11/17 23:45 Temperature Pulse Rate 107 H 106 H 109 H Respiratory Rate 23 Pulse Oximetry 99 99 99 12/12/17 00:00 12/12/17 00:15 12/12/17 00:25 Temperature 98.0 F Pulse Rate 113 H 108 H Respiratory Rate 24 17 20 Pulse Oximetry 100 100 99 12/12/17 00:30 12/12/17 00:45 12/12/17 01:00 Temperature Pulse Rate 109 H 109 H 109 H Respiratory Rate 20 20 18 Pulse Oximetry 99 99 99 12/12/17 01:15 12/12/17 01:30 12/12/17 01:45 Temperature Pulse Rate 109 H 110 H 108 H Respiratory Rate 22 21 22 Pulse Oximetry 99 98 99 12/12/17 02:00 12/12/17 02:15 12/12/17 02:30 Temperature Pulse Rate 106 H 107 H 107 H Respiratory Rate 19 22 20 Pulse Oximetry 99 99 99 12/12/17 02:45 12/12/17 03:00 12/12/17 03:15 Temperature Pulse Rate 109 H 106 H 105 H Respiratory Rate 23 19 21 Pulse Oximetry 98 99 100 12/12/17 03:30 12/12/17 03:45 12/12/17 04:00 Temperature 98.0 F Pulse Rate 108 H 115 H 122 H Respiratory Rate 21 23 24 Pulse Oximetry 100 99 99 12/12/17 04:15 12/12/17 04:30 12/12/17 04:45 Temperature Pulse Rate 121 H 121 H 122 H Respiratory Rate 22 20 21 Pulse Oximetry 98 100 98 12/12/17 05:00 12/12/17 05:15 12/12/17 05:30 Temperature Pulse Rate 128 H 122 H 123 H Respiratory Rate 16 22 21 Pulse Oximetry 100 100 100 12/12/17 05:45 12/12/17 06:00 12/12/17 08:19 Temperature Pulse Rate 122 H 114 H Respiratory Rate 18 20 Pulse Oximetry 100 98 Intake & Output 12/11/17 12/12/17 12/12/17 18:59 06:59 18:59 Intake Total 1230 / 1230 2482.2588 / 2482.2588 300 / 300 Output Total 1155 / 1155 430 / 430 Balance 75 / 75 2052.2588 / 300 / 300 Weight 81.8 kg Intake: IV 450 / 450 2482.2588 / 248.2588 300 / 300 Versed Inj 50 mg In 50 ml @ 2 50 / 50 100 / 100 MG/HR 2 mls/hr IV.CONT TITRATE PRN Rx#:[id number] Intralipid 20% Inj 250 ML @ 31. 250 / 250 25 mls/hr IV.SIG Q24H [facility] Rx#: [id number] Mycamine Inj 100 MG In NS Inj 100 / 100 100 ML @ 100 mls/hr IV.SIG Q24H [facility] Rx#:[id number] Zosyn 2.25 GM Premix 50 ML @ 50 / 50 50 / 50 50 / 50 100 mls/hr IV.SIG Q8H [facility] Rx#: [id number] Sodium Chloride 23.4% Inj 5.5 1832.2588 / 1832.2588 MEQ Sodium Acetate Inj 29.5 MEQ KCl Inj 20 MEQ Calcium Chloride Inj 4.5 MEQ MVI-12 Inj 10 ML Folvite Inj 1 MG In Clinimix 5%/D20W Inj 2,000 ML @ 65 mls/hr IV.SIG Q24H [facility] Rx#: [id number] fentaNYL 10 mcg/mL Premix Drip 250 / 250 250 / 250 250 / 250 2,500 mcg In 250 ml @ 50 MCG/HR 5 mls/hr IV.SIG TITRATE PRN Rx #:[id number] Tube Feeding 0 / 0 Tube Irrigant 180 / 180 Anesthesia Amount 200 / 200 Intake (Blood Product) Amt 400 / 400 Rbc As-3 Leukoreduced Unit 0 / 0 [id number] Rbc As-3 Leukoreduced Unit 400 / 400 [id number] Output: Urine 0 / 0 Stool 500 / 500 50 / 50 Gastric Drainage 0 / 0 Right Nare Nasogastric Tube 0 / 0 Wound Drainage 355 / 355 205 / 205 # 1 Right Abdomen 5 / 5 5 / 5 # 2 Right Abdomen 350 / 350 200 / 200 Chest Tube Drainage 300 / 300 175 / 175 #1 Left Pleural 300 / 300 175 / 175 Other: Date of Last Bowel Movement 12/11/17 12/12/17 Narrative: Sedated Abd: incision c/d/i without any drainage; JP1 without any drainage; JP2 with serous sanguinous drainage; J tube clamped Dignishield in place with maroon liquid stool - Urinary Catheter Management Indwelling Temp Sensing Catheter Cath placed during this visit: no Results - Labs 12/12/17 03:35 12/12/17 03:35 Laboratory Results - last 24 hr 12/04/17 12/07/17 12/11/17 10:46 12:47 08:25 WBC RBC Hgb Hct MCV MCH MCHC RDW Plt Count MPV Prelim Diff (Auto) Neut % (Auto) Lymph % (Auto) [place] % (Auto) Eos % (Auto) Baso % (Auto) Neut # (Auto) Lymph # (Auto) [place] # (Auto) Eos # (Auto) Baso # (Auto) WBC Differential Seg Neuts % (Manual) Band Neuts % (Manual) Lymphocytes % (Manual) Monocytes % (Manual) Eosinophils % (Manual) Metamyelocytes % (Man) Myelocytes % (Man) Abs Neuts (Manual) Nucleated RBCs/100 WBC Differential Comment Platelet Estimate Platelet Morphology Sodium Potassium Chloride Carbon Dioxide Anion Gap BUN Creatinine Estimated GFR POC Glucose Random Glucose Calcium Phosphorus Albumin Blood Type A Positive Antibody Screen Negative MTS Gel Crossmatch See Detail See Detail See Detail 12/11/17 12/11/17 12/11/17 16:20 17:29 20:41 WBC RBC Hgb 7.7 L Hct 22.9 L MCV MCH MCHC RDW Plt Count MPV Prelim Diff (Auto) Neut % (Auto) Lymph % (Auto) [place] % (Auto) Eos % (Auto) Baso % (Auto) Neut # (Auto) Lymph # (Auto) [place] # (Auto) Eos # (Auto) Baso # (Auto) WBC Differential Seg Neuts % (Manual) Band Neuts % (Manual) Lymphocytes % (Manual) Monocytes % (Manual) Eosinophils % (Manual) Metamyelocytes % (Man) Myelocytes % (Man) Abs Neuts (Manual) Nucleated RBCs/100 WBC Differential Comment Platelet Estimate Platelet Morphology Sodium Potassium Chloride Carbon Dioxide Anion Gap BUN Creatinine Estimated GFR POC Glucose 115 H 140 H Random Glucose Calcium Phosphorus Albumin Blood Type Antibody Screen MTS Gel Crossmatch 12/12/17 12/12/17 12/12/17 01:10 03:35 03:35 WBC 19.7 H RBC 2.38 L Hgb 7.5 L Hct 21.2 L MCV 89.0 MCH 31.5 MCHC 35.4 RDW 15.2 Plt Count 344 MPV 10.0 Prelim Diff (Auto) Slide review pending Neut % (Auto) 72.4 H Lymph % (Auto) 7.7 L [place] % (Auto) 17.0 H Eos % (Auto) 2.5 Baso % (Auto) 0.4 Neut # (Auto) 14.2 H Lymph # (Auto) 1.5 [place] # (Auto) 3.3 H Eos # (Auto) 0.5 H Baso # (Auto) 0.1 WBC Differential Manual diff final Seg Neuts % (Manual) 54 Band Neuts % (Manual) 14 H Lymphocytes % (Manual) 11 Monocytes % (Manual) 7 Eosinophils % (Manual) 5 H Metamyelocytes % (Man) 3 H Myelocytes % (Man) 6 H Abs Neuts (Manual) 15.2 H Nucleated RBCs/100 WBC 3 H Differential Comment . Platelet Estimate Normal Platelet Morphology Enlarged H Sodium 135 L Potassium 5.0 Chloride 96 L Carbon Dioxide 23.8 Anion Gap 15 BUN 122 H Creatinine 7.32 H Estimated GFR 10 L POC Glucose 131 H Random Glucose 131 H Calcium 8.2 L Phosphorus 8.3 H D Albumin 1.4 L Blood Type Antibody Screen MTS Gel Crossmatch 12/12/17 07:42 WBC RBC Hgb Hct MCV MCH MCHC RDW Plt Count MPV Prelim Diff (Auto) Neut % (Auto) Lymph % (Auto) [place] % (Auto) Eos % (Auto) Baso % (Auto) Neut # (Auto) Lymph # (Auto) [place] # (Auto) Eos # (Auto) Baso # (Auto) WBC Differential Seg Neuts % (Manual) Band Neuts % (Manual) Lymphocytes % (Manual) Monocytes % (Manual) Eosinophils % (Manual) Metamyelocytes % (Man) Myelocytes % (Man) Abs Neuts (Manual) Nucleated RBCs/100 WBC Differential Comment Platelet Estimate Platelet Morphology Sodium Potassium Chloride Carbon Dioxide Anion Gap BUN Creatinine Estimated GFR POC Glucose 151 H Random Glucose Calcium Phosphorus Albumin Blood Type Antibody Screen MTS Gel Crossmatch - Imaging Imaging: ITS Impressions Head MRI 12/03/17 00:00 CONCLUSION: 1. Minimal nonspecific periventricular white matter changes. 2. No restricted diffusion to suggest an acute ischemic event. 3. No evidence for significant ischemic changes. Chest CT 12/04/17 00:06 CONCLUSION: 1. Left greater than right pleural effusions and basilar atelectasis. 2. No hemorrhage or hematoma demonstrated. 3. Distended and fluid-filled esophagus. No wall thickening. Patient is status post gastrectomy. Nasogastric tube is at the GE junction. 4. Body wall edema/anasarca. Abdomen X-Ray 12/08/17 00:00 CONCLUSION: 1. 2 left-sided abdominal catheters. 2. Nonspecific bowel gas pattern. GI Bleed Scan Nuclear Medicine 12/11/17 00:00 CONCLUSION: 1. Negative examination with no evidence of acute GI bleeding. Chest X-Ray 12/11/17 06:00 CONCLUSION: Worsening in aeration in the left lower lobe Abdomen/Pelvis CT 12/12/17 00:00 CONCLUSION: Postoperative abdomen appearance. Assessment and Plan - Assessment (1) Gastric perforation Code(s): K25.5 - Chronic or unspecified gastric ulcer with perforation Status : Acute Plan: 47yo male s/p Exlap and gastrectomy for gastric perforation, s/p esoph[facility]junostomy at [facility] -Intubated---vent per CCM -Consulted GI--NM bleeding scan negative -Hmg 7.5; stable -Continue to monitor -GI planning colonoscopy tomorrow - Plan I personally evaluated the patient room 1313. The patient's aunt was at the bedside. We took his dressings down. His midline incisions about two thirds granulating in. The drain exit sites are clean. They are primarily pink tinged serous fluid. The jejunostomy tube site is clean and dry. Plan is for colonoscopy tomorrow. Would restart tube feedings as soon as possible after colonoscopy is complete. Discussed plans with family at bedside. Bedside RN replacing dressings. The exam, history, and the medical decision-making described in the above note were completed with the assistance of the mid-level provider. I reviewed and agree with the findings presented. I attest that I had a [id number] encounter with the patient on the same day, and personally performed and documented my assessment and findings in the medical record.
--- NOTE | 2017-12-12 11:48 | P.PNNP ---
Subjective Interval history: Patient was seen, no distress, sedated. Patient was seen on dialysis, 2K, blood flow rate of 350ml/min, goal of 3L. Patient had GI Bleed Scan yesterday which showed no evidence of acute GI bleeding. <Jocelyn Crews - Last Filed: 12/12/17 12:40> Physical Exam Vital signs: Vital Signs 12/11/17 12:00 12/11/17 14:00 12/11/17 14:56 Temperature 99.7 F H Pulse Rate 112 H 113 H Respiratory Rate 18 Pulse Oximetry 99 100 12/11/17 16:00 12/11/17 17:00 12/11/17 18:00 Temperature 99.8 F H Pulse Rate 101 H 107 H 113 H Respiratory Rate 18 19 19 Pulse Oximetry 99 98 100 12/11/17 19:00 12/11/17 19:15 12/11/17 19:30 Temperature Pulse Rate 111 H 110 H 110 H Respiratory Rate 36 H Pulse Oximetry 98 98 98 12/11/17 19:45 12/11/17 20:00 12/11/17 20:13 Temperature 98.9 F Pulse Rate 110 H 106 H Respiratory Rate 21 18 Pulse Oximetry 98 98 97 12/11/17 20:15 12/11/17 20:30 12/11/17 20:45 Temperature Pulse Rate 109 H 107 H 108 H Respiratory Rate Pulse Oximetry 98 99 98 12/11/17 21:00 12/11/17 21:15 12/11/17 21:30 Temperature Pulse Rate 106 H 105 H 106 H Respiratory Rate 21 Pulse Oximetry 99 99 99 12/11/17 21:45 12/11/17 22:00 12/11/17 22:15 Temperature Pulse Rate 103 H 104 H 109 H Respiratory Rate 23 22 18 Pulse Oximetry 100 99 99 12/11/17 22:30 12/11/17 22:45 12/11/17 23:00 Temperature Pulse Rate 106 H 106 H 106 H Respiratory Rate 19 18 18 Pulse Oximetry 99 99 99 12/11/17 23:15 12/11/17 23:30 12/11/17 23:45 Temperature Pulse Rate 107 H 106 H 109 H Respiratory Rate 23 Pulse Oximetry 99 99 99 12/12/17 00:00 12/12/17 00:15 12/12/17 00:25 Temperature 98.0 F Pulse Rate 113 H 108 H Respiratory Rate 24 17 20 Pulse Oximetry 100 100 99 12/12/17 00:30 12/12/17 00:45 12/12/17 01:00 Temperature Pulse Rate 109 H 109 H 109 H Respiratory Rate 20 20 18 Pulse Oximetry 99 99 99 12/12/17 01:15 12/12/17 01:30 12/12/17 01:45 Temperature Pulse Rate 109 H 110 H 108 H Respiratory Rate 22 21 22 Pulse Oximetry 99 98 99 12/12/17 02:00 12/12/17 02:15 12/12/17 02:30 Temperature Pulse Rate 106 H 107 H 107 H Respiratory Rate 19 22 20 Pulse Oximetry 99 99 99 12/12/17 02:45 12/12/17 03:00 12/12/17 03:15 Temperature Pulse Rate 109 H 106 H 105 H Respiratory Rate 23 19 21 Pulse Oximetry 98 99 100 12/12/17 03:30 12/12/17 03:45 12/12/17 04:00 Temperature 98.0 F Pulse Rate 108 H 115 H 122 H Respiratory Rate 21 23 24 Pulse Oximetry 100 99 99 12/12/17 04:15 12/12/17 04:30 12/12/17 04:45 Temperature Pulse Rate 121 H 121 H 122 H Respiratory Rate 22 20 21 Pulse Oximetry 98 100 98 12/12/17 05:00 12/12/17 05:15 12/12/17 05:30 Temperature Pulse Rate 128 H 122 H 123 H Respiratory Rate 16 22 21 Pulse Oximetry 100 100 100 12/12/17 05:45 12/12/17 06:00 12/12/17 08:00 Temperature 99.3 F Pulse Rate 122 H 114 H 93 H Respiratory Rate 18 20 Pulse Oximetry 100 100 12/12/17 08:19 12/12/17 09:00 12/12/17 10:00 Temperature Pulse Rate 102 H 108 H Respiratory Rate 20 19 20 Pulse Oximetry 98 100 100 Intake & Output 12/11/17 12/12/17 12/12/17 18:59 06:59 18:59 Intake Total 1230 / 1230 2482.2588 / 2482.2588 300 / 300 Output Total 1155 / 1155 430 / 430 Balance 75 / 75 2052.2588 / 2051.2588 300 / 300 Weight 81.8 kg Intake: IV 450 / 450 2482.2588 / 2482.2588 300 / 300 Versed Inj 50 mg In 50 ml @ 2 50 / 50 100 / 100 MG/HR 2 mls/hr IV.CONT TITRATE PRN Rx#:[id number] Intralipid 20% Inj 250 ML @ 31. 250 / 250 25 mls/hr IV.SIG Q24H [facility] Rx#: [id number] Mycamine Inj 100 MG In NS Inj 100 / 100 100 ML @ 100 mls/hr IV.SIG Q24H [facility] Rx#:[id number] Zosyn 2.25 GM Premix 50 ML @ 50 / 50 50 / 50 50 / 50 100 mls/hr IV.SIG Q8H [facility] Rx#: [id number] Sodium Chloride 23.4% Inj 5.5 1832.2588 / 1832.2588 MEQ Sodium Acetate Inj 29.5 MEQ KCl Inj 20 MEQ Calcium Chloride Inj 4.5 MEQ MVI-12 Inj 10 ML Folvite Inj 1 MG In Clinimix 5%/D20W Inj 2,000 ML @ 65 mls/hr IV.SIG Q24H [facility] Rx#: [id number] fentaNYL 10 mcg/mL Premix Drip 250 / 250 250 / 250 250 / 250 2,500 mcg In 250 ml @ 50 MCG/HR 5 mls/hr IV.SIG TITRATE PRN Rx #:[id number] Tube Feeding 0 / 0 Tube Irrigant 180 / 180 Anesthesia Amount 200 / 200 Intake (Blood Product) Amt 400 / 400 Rbc As-3 Leukoreduced Unit 0 / 0 [id number] Rbc As-3 Leukoreduced Unit 400 / 400 [id number] Output: Urine 0 / 0 Stool 500 / 500 50 / 50 Gastric Drainage 0 / 0 Right Nare Nasogastric Tube 0 / 0 Wound Drainage 355 / 355 205 / 205 # 1 Right Abdomen 5 / 5 5 / 5 # 2 Right Abdomen 350 / 350 200 / 200 Chest Tube Drainage 300 / 300 175 / 175 #1 Left Pleural 300 / 300 175 / 175 Other: Date of Last Bowel Movement 12/11/17 12/12/17 12/12/17 - Constitutional no acute distress - Routine HEENT Exam Head: Present: normocephalic ENT: Present: mucous membranes moist - Routine Neck Exam Present: trachea midline. Absent: tracheal deviation - Routine Respiratory Exam Present: patient mechanically ventilated. Absent: accessory muscle use, respiratory distress Comments: Patient has left sided chest tube. - Routine Abdominal Exam Present: firm - Routine Extremities Exam Present: edema Comments: Mild generalized edema. - Routine Neurological Exam Absent: alert - Routine Psychiatric Exam Present: unable to assess - Urinary Catheter Management Indwelling Temp Sensing Catheter Cath placed during this visit: no <Jocelyn Crews - Last Filed: 12/12/17 12:40> Vital signs: Vital Signs 12/11/17 18:00 12/11/17 19:00 12/11/17 19:15 Temperature Pulse Rate 113 H 111 H 110 H Respiratory Rate 19 36 H Pulse Oximetry 100 98 98 12/11/17 19:30 12/11/17 19:45 12/11/17 20:00 Temperature 98.9 F Pulse Rate 110 H 110 H 106 H Respiratory Rate 21 Pulse Oximetry 98 98 98 12/11/17 20:13 12/11/17 20:15 12/11/17 20:30 Temperature Pulse Rate 109 H 107 H Respiratory Rate 18 Pulse Oximetry 97 98 99 12/11/17 20:45 12/11/17 21:00 12/11/17 21:15 Temperature Pulse Rate 108 H 106 H 105 H Respiratory Rate Pulse Oximetry 98 99 99 12/11/17 21:30 12/11/17 21:45 12/11/17 22:00 Temperature Pulse Rate 106 H 103 H 104 H Respiratory Rate 21 23 22 Pulse Oximetry 99 100 99 12/11/17 22:15 12/11/17 22:30 12/11/17 22:45 Temperature Pulse Rate 109 H 106 H 106 H Respiratory Rate 18 19 18 Pulse Oximetry 99 99 99 12/11/17 23:00 12/11/17 23:15 12/11/17 23:30 Temperature Pulse Rate 106 H 107 H 106 H Respiratory Rate 18 23 Pulse Oximetry 99 99 99 12/11/17 23:45 12/12/17 00:00 12/12/17 00:15 Temperature 98.0 F Pulse Rate 109 H 113 H 108 H Respiratory Rate 24 17 Pulse Oximetry 99 100 100 12/12/17 00:25 12/12/17 00:30 12/12/17 00:45 Temperature Pulse Rate 109 H 109 H Respiratory Rate 20 20 20 Pulse Oximetry 99 99 99 12/12/17 01:00 12/12/17 01:15 12/12/17 01:30 Temperature Pulse Rate 109 H 109 H 110 H Respiratory Rate 18 22 21 Pulse Oximetry 99 99 98 12/12/17 01:45 12/12/17 02:00 12/12/17 02:15 Temperature Pulse Rate 108 H 106 H 107 H Respiratory Rate 22 19 22 Pulse Oximetry 99 99 99 12/12/17 02:30 12/12/17 02:45 12/12/17 03:00 Temperature Pulse Rate 107 H 109 H 106 H Respiratory Rate 20 23 19 Pulse Oximetry 99 98 99 12/12/17 03:15 12/12/17 03:30 12/12/17 03:45 Temperature Pulse Rate 105 H 108 H 115 H Respiratory Rate 21 21 23 Pulse Oximetry 100 100 99 12/12/17 04:00 12/12/17 04:15 12/12/17 04:30 Temperature 98.0 F Pulse Rate 122 H 121 H 121 H Respiratory Rate 24 22 20 Pulse Oximetry 99 98 100 12/12/17 04:45 12/12/17 05:00 12/12/17 05:15 Temperature Pulse Rate 122 H 128 H 122 H Respiratory Rate 21 16 22 Pulse Oximetry 98 100 100 12/12/17 05:30 12/12/17 05:45 12/12/17 06:00 Temperature Pulse Rate 123 H 122 H 114 H Respiratory Rate 21 18 Pulse Oximetry 100 100 12/12/17 08:00 12/12/17 08:19 12/12/17 09:00 Temperature 99.3 F Pulse Rate 93 H 102 H Respiratory Rate 20 20 19 Pulse Oximetry 100 98 100 12/12/17 10:00 12/12/17 12:00 12/12/17 15:58 Temperature 99.6 F Pulse Rate 108 H 111 H Respiratory Rate 20 19 22 Pulse Oximetry 100 100 98 Intake & Output 12/11/17 12/12/17 12/12/17 18:59 06:59 18:59 Intake Total 1230 / 1230 2482.2588 / 2482.2588 500 / 500 Output Total 1155 / 1155 430 / 430 Balance 75 / 75 2.2588 / 2051.2588 500 / 500 Weight 81.8 kg Intake: IV 450 / 450 2482.2588 / 2482.2588 500 / 500 Versed Inj 50 mg In 50 ml @ 2 50 / 50 100 / 100 MG/HR 2 mls/hr IV.CONT TITRATE PRN Rx#:[id number] Flexbumin 25% Inj 100 ML @ 60 100 / 100 mls/hr IV.SIG WITH DIALYSIS PRN Rx#:[id number] Intralipid 20% Inj 250 ML @ 31. 250 / 250 25 mls/hr IV.SIG Q24H [facility] Rx#: [id number] Mycamine Inj 100 MG In NS Inj 100 / 100 100 / 100 100 ML @ 100 mls/hr IV.SIG Q24H [facility] Rx#:[id number] Zosyn 2.25 GM Premix 50 ML @ 50 / 50 50 / 50 50 / 50 100 mls/hr IV.SIG Q8H [facility] Rx#: [id number] Sodium Chloride 23.4% Inj 5.5 1832.2588 / 1832.2588 MEQ Sodium Acetate Inj 29.5 MEQ KCl Inj 20 MEQ Calcium Chloride Inj 4.5 MEQ MVI-12 Inj 10 ML Folvite Inj 1 MG In Clinimix 5%/D20W Inj 2,000 ML @ 65 mls/hr IV.SIG Q24H [facility] Rx#: [id number] fentaNYL 10 mcg/mL Premix Drip 250 / 250 250 / 250 250 / 250 2,500 mcg In 250 ml @ 50 MCG/HR 5 mls/hr IV.SIG TITRATE PRN Rx #:[id number] Tube Feeding 0 / 0 Tube Irrigant 180 / 180 Anesthesia Amount 200 / 200 Intake (Blood Product) Amt 400 / 400 Rbc As-3 Leukoreduced Unit 0 / 0 [id number] Rbc As-3 Leukoreduced Unit 400 / 400 [id number] Output: Urine 0 / 0 Stool 500 / 500 50 / 50 Gastric Drainage 0 / 0 Right Nare Nasogastric Tube 0 / 0 Wound Drainage 355 / 355 205 / 205 # 1 Right Abdomen 5 / 5 5 / 5 # 2 Right Abdomen 350 / 350 200 / 200 Chest Tube Drainage 300 / 300 175 / 175 #1 Left Pleural 300 / 300 175 / 175 Other: Date of Last Bowel Movement 12/11/17 12/12/17 12/12/17 - Urinary Catheter Management Indwelling Temp Sensing Catheter Cath placed during this visit: no <Filipe Robertson - Last Filed: 12/12/17 17:12> Assessment and Plan - Assessment (1) JACLYN (acute kidney injury) Code(s): N17.9 - Acute kidney failure, unspecified Status: Acute Plan: Anuric renal failure. He has become dialysis dependent. Dialysis every 2nd day. Patient was seen on dialysis, 2K, blood flow rate of 350ml/min, goal of 3L. Monitor for recovery. Continue supportive care. Avoid nephrotoxic agents. PhosLo increased, patient's Phosphorus was 8.3 today. (2) Acute respiratory failure Code(s): J96.00 - Acute respiratory failure, unspecified whether with hypoxia or hypercapnia Status: Acute Qualifiers: Respiratory failure complication: hypoxia Qualified Code(s): J96.01 - Acute respiratory failure with hypoxia Plan: On the ventilator. Possible aspiration. (3) Gastric perforation Code(s): K25.5 - Chronic or unspecified gastric ulcer with perforation Status : Acute Plan: s/p surgery. Subtotal gastrectomy in [place]. In [facility] he had: Dinh-en-y esophagojejunostomy, feeding jejunostomy placement, diagnostic EGD, primary fascial closure. Date of procedure: 11/28/17 (4) Candidemia Code(s): B37.7 - Candidal sepsis Status: Acute Plan: On Micafungin. Patient is also on Zosyn. Dose medications appropriate to renal function. (5) DVT (deep venous thrombosis) Code(s): I82.409 - Acute embolism and thrombosis of unspecified deep veins of unspecified lower extremity Status: Acute Plan: On heparin drip. DVT of bilateral upper extremities. (6) Anemia Code(s): D64.9 - Anemia, unspecified Status: Acute Plan: Could be multifactorial. Rule out bleeding. Also could be due to renal failure. Transfuse prn. May need to start Epogen. <Jocelyn Crews - Last Filed: 12/12/17 12:40> - Assessment (1) JACLYN (acute kidney injury) Code(s): N17.9 - Acute kidney failure, unspecified Status: Acute (2) Acute respiratory failure Code(s): J96.00 - Acute respiratory failure, unspecified whether with hypoxia or hypercapnia Status: Acute Qualifiers: Respiratory failure complication: hypoxia Qualified Code(s): J96.01 - Acute respiratory failure with hypoxia (3) Gastric perforation Code(s): K25.5 - Chronic or unspecified gastric ulcer with perforation Status : Acute (4) Candidemia Code(s): B37.7 - Candidal sepsis Status: Acute (5) DVT (deep venous thrombosis) Code(s): I82.409 - Acute embolism and thrombosis of unspecified deep veins of unspecified lower extremity Status: Acute (6) Anemia Code(s): D64.9 - Anemia, unspecified Status: Acute - Attending Attestation patient was seen and examined during dialysis. <Filipe Robertson - Last Filed: 12/12/17 17:12>
[2017-12-12] MEDS: Albumin Human 25% Inj 100 ML IV.SIG PRN (11:51)
[2017-12-12] MEDS: Heparin 10,000 UNITS/10 ML Vial (for IV use) OTHER PRN (11:54)
--- NOTE | 2017-12-12 13:50 | P.PNGI ---
Subjective Interval history: Pt remains sedated and mechanically ventilated Rectal bag with loose, dark colored stools According to RN about 100 mL since yesterday Abdomen with abdominal binder Midline abdominal incision left open S/P surgery with wet to dry dressing 2 large ZAINAB drains to right side of abdomen <Paola Mariscal - Last Filed: 12/12/17 13:39> Physical Exam Vital signs: Vital Signs 12/11/17 14:00 12/11/17 14:56 12/11/17 16:00 Temperature 99.8 F H Pulse Rate 113 H 101 H Respiratory Rate 18 Pulse Oximetry 100 99 12/11/17 17:00 12/11/17 18:00 12/11/17 19:00 Temperature Pulse Rate 107 H 113 H 111 H Respiratory Rate 19 19 36 H Pulse Oximetry 98 100 98 12/11/17 19:15 12/11/17 19:30 12/11/17 19:45 Temperature Pulse Rate 110 H 110 H 110 H Respiratory Rate Pulse Oximetry 98 98 98 12/11/17 20:00 12/11/17 20:13 12/11/17 20:15 Temperature 98.9 F Pulse Rate 106 H 109 H Respiratory Rate 21 18 Pulse Oximetry 98 97 98 12/11/17 20:30 12/11/17 20:45 12/11/17 21:00 Temperature Pulse Rate 107 H 108 H 106 H Respiratory Rate Pulse Oximetry 99 98 99 12/11/17 21:15 12/11/17 21:30 12/11/17 21:45 Temperature Pulse Rate 105 H 106 H 103 H Respiratory Rate 21 23 Pulse Oximetry 99 99 100 12/11/17 22:00 12/11/17 22:15 12/11/17 22:30 Temperature Pulse Rate 104 H 109 H 106 H Respiratory Rate 22 18 19 Pulse Oximetry 99 99 99 12/11/17 22:45 12/11/17 23:00 12/11/17 23:15 Temperature Pulse Rate 106 H 106 H 107 H Respiratory Rate 18 18 23 Pulse Oximetry 99 99 99 12/11/17 23:30 12/11/17 23:45 12/12/17 00:00 Temperature 98.0 F Pulse Rate 106 H 109 H 113 H Respiratory Rate 24 Pulse Oximetry 99 99 100 12/12/17 00:15 12/12/17 00:25 12/12/17 00:30 Temperature Pulse Rate 108 H 109 H Respiratory Rate 17 20 20 Pulse Oximetry 100 99 99 12/12/17 00:45 12/12/17 01:00 12/12/17 01:15 Temperature Pulse Rate 109 H 109 H 109 H Respiratory Rate 20 18 22 Pulse Oximetry 99 99 99 12/12/17 01:30 12/12/17 01:45 12/12/17 02:00 Temperature Pulse Rate 110 H 108 H 106 H Respiratory Rate 21 22 19 Pulse Oximetry 98 99 99 12/12/17 02:15 12/12/17 02:30 12/12/17 02:45 Temperature Pulse Rate 107 H 107 H 109 H Respiratory Rate 22 20 23 Pulse Oximetry 99 99 98 12/12/17 03:00 12/12/17 03:15 12/12/17 03:30 Temperature Pulse Rate 106 H 105 H 108 H Respiratory Rate 19 21 21 Pulse Oximetry 99 100 100 12/12/17 03:45 12/12/17 04:00 12/12/17 04:15 Temperature 98.0 F Pulse Rate 115 H 122 H 121 H Respiratory Rate 23 24 22 Pulse Oximetry 99 99 98 12/12/17 04:30 12/12/17 04:45 12/12/17 05:00 Temperature Pulse Rate 121 H 122 H 128 H Respiratory Rate 20 21 16 Pulse Oximetry 100 98 100 12/12/17 05:15 12/12/17 05:30 12/12/17 05:45 Temperature Pulse Rate 122 H 123 H 122 H Respiratory Rate 22 21 18 Pulse Oximetry 100 100 100 12/12/17 06:00 12/12/17 08:00 12/12/17 08:19 Temperature 99.3 F Pulse Rate 114 H 93 H Respiratory Rate 20 20 Pulse Oximetry 100 98 12/12/17 09:00 12/12/17 10:00 12/12/17 12:00 Temperature 99.6 F Pulse Rate 102 H 108 H 111 H Respiratory Rate 19 20 19 Pulse Oximetry 100 100 100 Intake & Output 12/11/17 12/12/17 12/12/17 18:59 06:59 18:59 Intake Total 1230 / 1230 2482.2588 / 2482.2588 500 / 500 Output Total 1155 / 1155 430 / 430 Balance 75 / 75 2052.2588 / 2052.2588 500 / 500 Weight 81.8 kg Intake: IV 450 / 450 2482.2588 / 2482.2588 500 / 500 Versed Inj 50 mg In 50 ml @ 2 50 / 50 100 / 100 MG/HR 2 mls/hr IV.CONT TITRATE PRN Rx#:[id number] Flexbumin 25% Inj 100 ML @ 60 100 / 100 mls/hr IV.SIG WITH DIALYSIS PRN Rx#:[id number] Intralipid 20% Inj 250 ML @ 31. 250 / 250 25 mls/hr IV.SIG Q24H COLE Rx#: [id number] Mycamine Inj 100 MG In NS Inj 100 / 100 100 / 100 100 ML @ 100 mls/hr IV.SIG Q24H COLE Rx#:[id number] Zosyn 2.25 GM Premix 50 ML @ 50 / 50 50 / 50 50 / 50 100 mls/hr IV.SIG Q8H COLE Rx#: [id number] Sodium Chloride 23.4% Inj 5.5 1832.2588 / 1832.2588 MEQ Sodium Acetate Inj 29.5 MEQ KCl Inj 20 MEQ Calcium Chloride Inj 4.5 MEQ MVI-12 Inj 10 ML Folvite Inj 1 MG In Clinimix 5%/D20W Inj 2,000 ML @ 65 mls/hr IV.SIG Q24H PENDING SALE TO [facility] Rx#: [id number] fentaNYL 10 mcg/mL Premix Drip 250 / 250 250 / 250 250 / 250 2,500 mcg In 250 ml @ 50 MCG/HR 5 mls/hr IV.SIG TITRATE PRN Rx #:[id number] Tube Feeding 0 / 0 Tube Irrigant 180 / 180 Anesthesia Amount 200 / 200 Intake (Blood Product) Amt 400 / 400 Rbc As-3 Leukoreduced Unit 0 / 0 [id number] Rbc As-3 Leukoreduced Unit 400 / 400 [id number] Output: Urine 0 / 0 Stool 500 / 500 50 / 50 Gastric Drainage 0 / 0 Right Nare Nasogastric Tube 0 / 0 Wound Drainage 355 / 355 205 / 205 # 1 Right Abdomen 5 / 5 5 / 5 # 2 Right Abdomen 350 / 350 200 / 200 Chest Tube Drainage 300 / 300 175 / 175 #1 Left Pleural 300 / 300 175 / 175 Other: Date of Last Bowel Movement 12/11/17 12/12/17 12/12/17 - Constitutional no acute distress - Routine HEENT Exam Head: Present: normocephalic, atraumatic - Routine Respiratory Exam Present: patient mechanically ventilated - Routine Cardiovascular Exam Present: RRR - Routine Abdominal Exam Comments: Post surgical midline incision, left open with wet-to dry dressing, abdominal binder in place, 2 large ZAINAB drains to right side of abdomen #2 ZAINAB with approximately 10 mL of serosanguineous output - Routine Skin Exam Present: dry, warm - Urinary Catheter Management Indwelling Temp Sensing Catheter Cath placed during this visit: no <Paola Mariscal - Last Filed: 12/12/17 13:39> Vital signs: Vital Signs 12/11/17 19:45 12/11/17 20:00 12/11/17 20:13 Temperature 98.9 F Pulse Rate 110 H 106 H Respiratory Rate 21 18 Pulse Oximetry 98 98 97 12/11/17 20:15 12/11/17 20:30 12/11/17 20:45 Temperature Pulse Rate 109 H 107 H 108 H Respiratory Rate Pulse Oximetry 98 99 98 12/11/17 21:00 12/11/17 21:15 12/11/17 21:30 Temperature Pulse Rate 106 H 105 H 106 H Respiratory Rate 21 Pulse Oximetry 99 99 99 12/11/17 21:45 12/11/17 22:00 12/11/17 22:15 Temperature Pulse Rate 103 H 104 H 109 H Respiratory Rate 23 22 18 Pulse Oximetry 100 99 99 12/11/17 22:30 12/11/17 22:45 12/11/17 23:00 Temperature Pulse Rate 106 H 106 H 106 H Respiratory Rate 19 18 18 Pulse Oximetry 99 99 99 12/11/17 23:15 12/11/17 23:30 12/11/17 23:45 Temperature Pulse Rate 107 H 106 H 109 H Respiratory Rate 23 Pulse Oximetry 99 99 99 12/12/17 00:00 12/12/17 00:15 12/12/17 00:25 Temperature 98.0 F Pulse Rate 113 H 108 H Respiratory Rate 24 17 20 Pulse Oximetry 100 100 99 12/12/17 00:30 12/12/17 00:45 12/12/17 01:00 Temperature Pulse Rate 109 H 109 H 109 H Respiratory Rate 20 20 18 Pulse Oximetry 99 99 99 12/12/17 01:15 12/12/17 01:30 12/12/17 01:45 Temperature Pulse Rate 109 H 110 H 108 H Respiratory Rate 22 21 22 Pulse Oximetry 99 98 99 12/12/17 02:00 12/12/17 02:15 12/12/17 02:30 Temperature Pulse Rate 106 H 107 H 107 H Respiratory Rate 19 22 20 Pulse Oximetry 99 99 99 12/12/17 02:45 12/12/17 03:00 12/12/17 03:15 Temperature Pulse Rate 109 H 106 H 105 H Respiratory Rate 23 19 21 Pulse Oximetry 98 99 100 12/12/17 03:30 12/12/17 03:45 12/12/17 04:00 Temperature 98.0 F Pulse Rate 108 H 115 H 122 H Respiratory Rate 21 23 24 Pulse Oximetry 100 99 99 12/12/17 04:15 12/12/17 04:30 12/12/17 04:45 Temperature Pulse Rate 121 H 121 H 122 H Respiratory Rate 22 20 21 Pulse Oximetry 98 100 98 12/12/17 05:00 12/12/17 05:15 12/12/17 05:30 Temperature Pulse Rate 128 H 122 H 123 H Respiratory Rate 16 22 21 Pulse Oximetry 100 100 100 12/12/17 05:45 12/12/17 06:00 12/12/17 08:00 Temperature 99.3 F Pulse Rate 122 H 114 H 93 H Respiratory Rate 18 20 Pulse Oximetry 100 100 12/12/17 08:19 12/12/17 09:00 12/12/17 10:00 Temperature Pulse Rate 102 H 108 H Respiratory Rate 20 19 20 Pulse Oximetry 98 100 100 12/12/17 12:00 12/12/17 14:00 12/12/17 15:58 Temperature 99.6 F Pulse Rate 111 H 118 H Respiratory Rate 19 22 Pulse Oximetry 100 98 12/12/17 16:00 12/12/17 17:00 12/12/17 18:00 Temperature 100.0 F H Pulse Rate 114 H 124 H 124 H Respiratory Rate 22 23 Pulse Oximetry 100 100 Intake & Output 12/12/17 12/12/17 12/13/17 06:59 18:59 06:59 Intake Total 2482.2588 / 2482.2588 1030 / 1030 Output Total 430 / 430 705 / 705 Balance 2051.2588 / 2051.2588 325 / 325 Weight 81.8 kg Intake: IV 2482.2588 / 2482.2588 850 / 850 Versed Inj 50 mg In 50 ml @ 2 100 / 100 50 / 50 MG/HR 2 mls/hr IV.CONT TITRATE PRN Rx#:[id number] Flexbumin 25% Inj 100 ML @ 60 100 / 100 mls/hr IV.SIG WITH DIALYSIS PRN Rx#:[id number] Intralipid 20% Inj 250 ML @ 31. 250 / 250 25 mls/hr IV.SIG Q24H COLE Rx#: [id number] Mycamine Inj 100 MG In NS Inj 100 / 100 100 ML @ 100 mls/hr IV.SIG Q24H COLE Rx#:[id number] Zosyn 2.25 GM Premix 50 ML @ 50 / 50 100 / 100 100 mls/hr IV.SIG Q8H COLE Rx#: [id number] Sodium Chloride 23.4% Inj 5.5 1832.2588 / 1832.2588 MEQ Sodium Acetate Inj 29.5 MEQ KCl Inj 20 MEQ Calcium Chloride Inj 4.5 MEQ MVI-12 Inj 10 ML Folvite Inj 1 MG In Clinimix 5%/D20W Inj 2,000 ML @ 65 mls/hr IV.SIG Q24H COLE Rx#: [id number] fentaNYL 10 mcg/mL Premix Drip 250 / 250 500 / 500 2,500 mcg In 250 ml @ 50 MCG/HR 5 mls/hr IV.SIG TITRATE PRN Rx #:[id number] Tube Feeding 0 / 0 Tube Irrigant 180 / 180 Output: Urine 0 / 0 Stool 50 / 50 300 / 300 Wound Drainage 205 / 205 255 / 255 # 1 Right Abdomen 5 / 5 5 / 5 # 2 Right Abdomen 200 / 200 250 / 250 Chest Tube Drainage 175 / 175 150 / 150 #1 Left Pleural 175 / 175 150 / 150 Other: Date of Last Bowel Movement 12/12/17 12/11/17 - Urinary Catheter Management Indwelling Temp Sensing Catheter Cath placed during this visit: no <Maddi King - Last Filed: 12/12/17 19:45> Results - Labs CBC & Chem 7: 12/12/17 03:35 12/12/17 03:35 Laboratory Results - last 24 hr 12/11/17 12/11/17 12/11/17 16:20 17:29 20:41 WBC RBC Hgb 7.7 L Hct 22.9 L MCV MCH MCHC RDW Plt Count MPV Prelim Diff (Auto) Neut % (Auto) Lymph % (Auto) Blount % (Auto) Eos % (Auto) Baso % (Auto) Neut # (Auto) Lymph # (Auto) Blount # (Auto) Eos # (Auto) Baso # (Auto) WBC Differential Seg Neuts % (Manual) Band Neuts % (Manual) Lymphocytes % (Manual) Monocytes % (Manual) Eosinophils % (Manual) Metamyelocytes % (Man) Myelocytes % (Man) Abs Neuts (Manual) Nucleated RBCs/100 WBC Differential Comment Platelet Estimate Platelet Morphology Sodium Potassium Chloride Carbon Dioxide Anion Gap BUN Creatinine Estimated GFR POC Glucose 115 H 140 H Random Glucose Calcium Phosphorus Albumin 12/12/17 12/12/17 12/12/17 01:10 03:35 03:35 WBC 19.7 H RBC 2.38 L Hgb 7.5 L Hct 21.2 L MCV 89.0 MCH 31.5 MCHC 35.4 RDW 15.2 Plt Count 344 MPV 10.0 Prelim Diff (Auto) Slide review pending Neut % (Auto) 72.4 H Lymph % (Auto) 7.7 L Blount % (Auto) 17.0 H Eos % (Auto) 2.5 Baso % (Auto) 0.4 Neut # (Auto) 14.2 H Lymph # (Auto) 1.5 Blount # (Auto) 3.3 H Eos # (Auto) 0.5 H Baso # (Auto) 0.1 WBC Differential Manual diff final Seg Neuts % (Manual) 54 Band Neuts % (Manual) 14 H Lymphocytes % (Manual) 11 Monocytes % (Manual) 7 Eosinophils % (Manual) 5 H Metamyelocytes % (Man) 3 H Myelocytes % (Man) 6 H Abs Neuts (Manual) 15.2 H Nucleated RBCs/100 WBC 3 H Differential Comment . Platelet Estimate Normal Platelet Morphology Enlarged H Sodium 135 L Potassium 5.0 Chloride 96 L Carbon Dioxide 23.8 Anion Gap 15 BUN 122 H Creatinine 7.32 H Estimated GFR 10 L POC Glucose 131 H Random Glucose 131 H Calcium 8.2 L Phosphorus 8.3 H D Albumin 1.4 L 12/12/17 12/12/17 07:42 12:03 WBC RBC Hgb Hct MCV MCH MCHC RDW Plt Count MPV Prelim Diff (Auto) Neut % (Auto) Lymph % (Auto) Blount % (Auto) Eos % (Auto) Baso % (Auto) Neut # (Auto) Lymph # (Auto) Blount # (Auto) Eos # (Auto) Baso # (Auto) WBC Differential Seg Neuts % (Manual) Band Neuts % (Manual) Lymphocytes % (Manual) Monocytes % (Manual) Eosinophils % (Manual) Metamyelocytes % (Man) Myelocytes % (Man) Abs Neuts (Manual) Nucleated RBCs/100 WBC Differential Comment Platelet Estimate Platelet Morphology Sodium Potassium Chloride Carbon Dioxide Anion Gap BUN Creatinine Estimated GFR POC Glucose 151 H 134 H Random Glucose Calcium Phosphorus Albumin Microbiology 12/11/17 07:40 Stool Stool Occult Blood (DEB) - Final Hemoccult positive - Imaging Impressions GI Bleed Scan Nuclear Medicine 12/11/17 00:00 CONCLUSION: 1. Negative examination with no evidence of acute GI bleeding. Abdomen/Pelvis CT 12/12/17 00:00 CONCLUSION: Postoperative abdomen appearance. <Paola Mariscal - Last Filed: 12/12/17 13:39> - Labs CBC & Chem 7: 12/12/17 03:35 12/12/17 03:35 Laboratory Results - last 24 hr 12/11/17 12/12/17 12/12/17 20:41 01:10 03:35 WBC 19.7 H RBC 2.38 L Hgb 7.5 L Hct 21.2 L MCV 89.0 MCH 31.5 MCHC 35.4 RDW 15.2 Plt Count 344 MPV 10.0 Prelim Diff (Auto) Slide review pending Neut % (Auto) 72.4 H Lymph % (Auto) 7.7 L Blount % (Auto) 17.0 H Eos % (Auto) 2.5 Baso % (Auto) 0.4 Neut # (Auto) 14.2 H Lymph # (Auto) 1.5 Blount # (Auto) 3.3 H Eos # (Auto) 0.5 H Baso # (Auto) 0.1 WBC Differential Manual diff final Seg Neuts % (Manual) 54 Band Neuts % (Manual) 14 H Lymphocytes % (Manual) 11 Monocytes % (Manual) 7 Eosinophils % (Manual) 5 H Metamyelocytes % (Man) 3 H Myelocytes % (Man) 6 H Abs Neuts (Manual) 15.2 H Nucleated RBCs/100 WBC 3 H Differential Comment . Platelet Estimate Normal Platelet Morphology Enlarged H Sodium Potassium Chloride Carbon Dioxide Anion Gap BUN Creatinine Estimated GFR POC Glucose 140 H 131 H Random Glucose Calcium Phosphorus Albumin 12/12/17 12/12/17 12/12/17 03:35 07:42 12:03 WBC RBC Hgb Hct MCV MCH MCHC RDW Plt Count MPV Prelim Diff (Auto) Neut % (Auto) Lymph % (Auto) Blount % (Auto) Eos % (Auto) Baso % (Auto) Neut # (Auto) Lymph # (Auto) Blount # (Auto) Eos # (Auto) Baso # (Auto) WBC Differential Seg Neuts % (Manual) Band Neuts % (Manual) Lymphocytes % (Manual) Monocytes % (Manual) Eosinophils % (Manual) Metamyelocytes % (Man) Myelocytes % (Man) Abs Neuts (Manual) Nucleated RBCs/100 WBC Differential Comment Platelet Estimate Platelet Morphology Sodium 135 L Potassium 5.0 Chloride 96 L Carbon Dioxide 23.8 Anion Gap 15 BUN 122 H Creatinine 7.32 H Estimated GFR 10 L POC Glucose 151 H 134 H Random Glucose 131 H Calcium 8.2 L Phosphorus 8.3 H D Albumin 1.4 L 12/12/17 17:32 WBC RBC Hgb Hct MCV MCH MCHC RDW Plt Count MPV Prelim Diff (Auto) Neut % (Auto) Lymph % (Auto) Blount % (Auto) Eos % (Auto) Baso % (Auto) Neut # (Auto) Lymph # (Auto) Blount # (Auto) Eos # (Auto) Baso # (Auto) WBC Differential Seg Neuts % (Manual) Band Neuts % (Manual) Lymphocytes % (Manual) Monocytes % (Manual) Eosinophils % (Manual) Metamyelocytes % (Man) Myelocytes % (Man) Abs Neuts (Manual) Nucleated RBCs/100 WBC Differential Comment Platelet Estimate Platelet Morphology Sodium Potassium Chloride Carbon Dioxide Anion Gap BUN Creatinine Estimated GFR POC Glucose 132 H Random Glucose Calcium Phosphorus Albumin Microbiology 12/11/17 07:40 Stool Stool Occult Blood (DEB) - Final Hemoccult positive - Imaging Impressions Abdomen/Pelvis CT 12/12/17 00:00 CONCLUSION: Postoperative abdomen appearance. 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 Consult for possible lower GI bleeding- pt noted to have maroon colored stool Enteroscopy (12/11) S/P total gastrectomy, esophagojejunal anastomosis normal, some old blood, no fresh blood, no blood seen in jejunum NM bleeding scan (12/11) Negative CT abdomen/pelvis WO IV contrast (12/12) Postoperative abdomen appearance (12/12) Pt received 2 U PRBCs yesterday, H/H stable since last night. According to RN approximately 100 mL of liquid stool since last night. Family at bedside, aggreeable to colonoscopy tomorrow. Plan: Colonoscopy tomorrow Obtain consent OK for TF today Turn off TF after MN Golytely prep Heparin already being held Monitor H/H Appreciate GS input Further recommendations based on clinical course and colonoscopy findings Pt has been seen and examined by myself and Dr. King and this note is written on her behalf <Paola Mariscal - Last Filed: 12/12/17 13:39> (1) Anemia Status: Acute Code(s): D64.9 - Anemia, unspecified - Attending Attestation seen, examined agree with above <Maddi King - Last Filed: 12/12/17 19:45>
[2017-12-12] MEDS ORDERED: PEG 3350/E-Lyte Soln 4000 ML Bottle PO ONE (16:00)
[2017-12-13] MEDS: Oral Hygiene Kit OROPHARYNG SCH ×8 (00:17→23:13)
[2017-12-13] MEDS: Insulin NovoLOG Aspart Correctional Sugar Inj SQ SCH ×6 (01:17→20:59)
[2017-12-13] MEDS: Labetalol HCl Inj 100 MG/20 ML Vial IV.PUSH PRN (01:18)
[2017-12-13] MEDS: fentaNYL 10 mcg/mL Premix Drip 2,500 MCG/250 ML BAG IV.SIG PRN ×3 (03:31→22:12)
[2017-12-13 03:34] LABS: Mean Corpuscular Hemoglobin 30.9 pg (27.0-34.0); Mean Corpuscular Volume 90.7 fL (80.0-100.0); Mean Platelet Volume 9.7 fL (7.0-11.0); Platelet Count 302 th/mm3 (150-450); Red Blood Count 1.77 mil/mm3 (4.50-5.90); White Blood Count 18.6 th/mm3 (4.0-11.0)
[2017-12-13 03:46] LABS: Hematocrit 16.1 % (39.0-51.0); Hemoglobin 5.5 gm/dL (13.0-17.0)
[2017-12-13] MEDS: Midazolam 50 MG/50 ML Inj 50 MG/50 ML BAG IV.CONT PRN (03:48)
[2017-12-13 04:06] LABS: Alanine Aminotransferase 133 U/L (12-78); Albumin 1.8 g/dL (3.4-5.0); Alkaline Phosphatase 221 U/L (45-117); Anion Gap 15 meq/L (5-15); Aspartate Aminotransferase 102 U/L (15-37); Blood Urea Nitrogen 90 mg/dL (7-18); Carbon Dioxide 25.8 meq/L (21.0-32.0); Chloride 98 meq/L (98-107); Glomerular Filtration Rate 13 mL/min (>89); Glucose,Random 160 mg/dL (74-106); Potassium 4.3 meq/L (3.5-5.1); Sodium 139 meq/L (136-145); Total Protein 5.9 g/dL (6.4-8.2)
[2017-12-13] MEDS ORDERED: Sodium Chlor 0.9% Inj 250 ML IV.SIG SCH (05:00)
--- NOTE | 2017-12-13 06:09 | XR ---
EXAM DATE: 12/13/2017 5:32 AM EST AGE/SEX: 47 years / Male INDICATIONS: Shortness of breath, possible respiratory disease. CLINICAL DATA: This is the patient's subsequent encounter. Patient reports that signs and symptoms h ave been present for 2 weeks and indicates a pain score of Nonresponsive. MEDICAL/SURGICAL HISTORY: . Cardiac arrest. Renal failure . Gastrectomy. Vas Cath. Dinh en Y. COMPARISON: [facility], CHEST 1V SINGLE AP, 12/11/2017. . FINDINGS: Endotracheal tube is present with tip several centimeters above the [place]. Nasogastric tube descends stomach. Central lines are stable. Aeration is improved with near complete clearance of parenchymal opacity on the left. Mild persistent perihilar infiltrate on the right. Cardiac contours are stable. CONCLUSION: Improving aeration Electronically signed by: Jordi Brumfield MD 12/13/2017 6:07 AM EST
--- NOTE | 2017-12-13 08:02 | P.PNCC ---
Subjective Subjective Remarks/Hospital Course: Patient was recently [place] [facility] [place] and transferred to [facility] 11/26/17 after the following hospital course: 47-year-old -Nepalese male with reportedly no past medical or past surgical history who was admitted to hospitalist service 11/22/17 after presenting with abdominal pain, nausea, vomiting. He had CT abd/pelvis with massive gastric distention. NG tube had been placed. I was called to patient's bedside for CODE BLUE PEA arrest. CPR was ongoing and patient had massive abdominal distension and gastric regurgitant in the airway. He was emergently intubated and large amount of gastric secretions suctioned from oropharynx. After 21 minutes of CPR, ROSC was obtained and he was profoundly hypotensive. Continued aggressive fluid resuscitation and initiated dopamine. He was transferred to [facility] where CVL and R radial art line were placed and he was given 7 L of crystalloid and albumin. CXR demonstrated pneumoperitoneum and Dr. Martin Gudino was called emergently and he immediately contacted OR for emergent ex lap. He had intraabdominal hypertension with IAP of 40 mmHg, though fortunately was able to be ventilated adequately after rocuronium 50 mg IV and was transferred to OR. Dr. Martin Gudino took to the operating room early in the morning on 11/23 and discovered tension pneumoperitoneum, massive gastric distension, ischemia of the proximal 2/3 of the stomach and large gastric perforation with massive intraperitoneal contamination with food particles. Dr. Isaacs placed 2 NGT and decompressed 2 L of succus. Patient had initial improvement in vital signs in the immediate postoperative period, however he subsequently became hypotensive requiring upward titration of levophed and addition of vasopressin and stress dose hydrocortisone. He remains on levophed 10 mcg/min, neosynephrine 80 mcg/ min, vasopressin 0.04 units/min with overall vasopressor requirement weaning overnight. He is oliguric and creatinine is continuing to climb. He was given 2 L of crystalloid and albumin overnight. He does have significant fluid losses with combination of abdominal dressing and NGT output, so I will give an additional L of crystalloid now to monitor hourly response as he certainly does not appear volume overloaded. Nonetheless Flotrac numbers are suggesting adequate volume status and we may be seeing the consequence of ischemic ATN. May ultimately require HD, however not at this time. Abdomen remains open and plan is to re-explore 11/25. 11/25: Patient has acceptable hemodynamics by Flotrac but remains septic with requirements for phenylephrine 200 mics per minute, Levophed 8 mics per minute and vasopressin 0.04 units/min for blood pressure support. This has improved overnight and the Bhavesh-Synephrine support has been weaned off completely. Acid base balance is acceptable. ATN has developed which will undoubtedly require hemodialysis. Potassium level is normal. He is at increased risk for an anesthetic now but there is an urgent need to check for residual gastric necrosis. 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 Since the source control surgery, the maintenance of normal acid-base balance has been less difficult. Patient remains anuric with a rising creatinine above 6.0. He is clearly ahead on volume and will benefit from dialysis. A 2 lumen hemodialysis catheter was placed on 11/25 and has been packed with dilute heparin solution. The right internal jugular central line is been in place for 4 days and accessed multiple times. The femoral art line has been in for 4 days. Shock liver was apparent after the cardiac arrest reflecting a transaminitis, elevated bilirubin, and prolonged INR. The INR has remained normal following the transfusion of 4 units of fresh frozen plasma prior to surgery yesterday. A 10% dextrose infusion continues because of ongoing problems with hypoglycemia. Thrombocytopenia at 37,000 persists. He has remained on antibiotic coverage with Pipracil/tazobactam and fungal coverage with fluconazole, all adjusted for renal failure. Present vasopressor requirements include levophed at 7 mics per minute and vasopressin at 0.04 units/min. The chest x-ray is consistent with minor aspiration at the time of his preoperative cardiac arrest on the floor and cultures have subsequently grown Klebsiella, pansensitive. The operative note will clarify the extent of the surgery but in essence the distal esophagus is stapled off and marked with 2 Prolene sutures. The antrum of the stomach is oversewn. Most of the stomach has been removed. The abdomen is open with a VAC dressing applied. Subjective: 11/29: Bowel was in discontinuity following subtotal gastrectomy and patient was transferred to [facility]. On reexploration 11/28 he underwent Dinh-en-y esophagojejunostomy, feeding jejunostomy placement, diagnostic EGD, primary fascial closure. Wound vac was applied to abdomen (though currently wet to dry dressing in place upon arrival). He was reportedly found to have candidemia and was started on micafungin and has undergone ophtho eval. Lines including CVL, Vascath and art line have all been changed at [facility] (though not clear when). He remains on mechanical ventilation and has been weaned off pressors. He was found to have BUE DVTs and is on heparin drip. He is on TPN and has been started on trickle tube feeds with Nepro via jejunostomy. NGT is to [facility]. He underwent HD postoperatively on 11/28. He has now been transferred back to [facility] for ongoing management. I have updated his father and stepmother. 11/30: Patient re-admitted s/p transfer from [facility] overnight, otherwise no acute issues. Scheduled to undergo HD today. 12/01: T-max 101.7, leukocytosis to 27,000 with bandemia. Now 3 days following Dinh-en-Y reconstruction of GI tract following sub-total gastrectomy for gastric necrosis. All new lines placed after diagnosis of candidemia. TPN infusing, jejunostomy at trickle flow and can be increased slowly per general surgery. 12/02: Marked leukocytosis with bandemia persists. Afebrile over last 24 hours. Leave NG tube across the esophageal anastomosis and surgical service will direct timing of contrast study about 7 days following surgery. Continue with spontaneous breathing trials. 12/03: extubated yesterday. since then, has not followed commands, and does not talk. appears to have clinically an aphasia, although his uremia or severe hypoactive delirium could present this way. purposeful movements. will obtain MRI to rule out acute ischemia, as this appears to be a new mental status change (11/29 /[facility] notes state interactive on ventilator). 12/04: reintubated overnight: more output from ZAINAB drains. hgb dropped to 7 this AM: receiving 1 unit prbc. MRI negative for acute change. EEG ordered today to rule out subclinical status epilepticus. also concern overnight for aspiration event. 12/05: T-max 99. WBC 24,000. Reintubated yesterday for respiratory failure probably related to aspiration. Trickle feeding continues through jejunostomy. Nasogastric tube is through the anastomosis and is to low intermittent. 12/06: Afebrile. WBC 26,000. Bandemia has largely resolved. There are bilateral pleural effusions which may need to be tapped to rule out infection or leak. Both lower lobes are consolidated on CAT scan, probably representing compressive atelectasis from the effusions. 12/07: White count remains elevated at 25,000. Total parenteral nutrition infusing and tolerated. Altered mental status persists, possibly related to the cardiac arrest on the floor prior to transfer to the ICU. 12/08: Tolerating total parenteral nutrition with good glucose control. Leukocytosis persists. Fluid tap from left chest bit cloudy, cultures pending. Maintaining adequate gas exchange on lower levels of fractional inspired oxygen. Aim for extubation trial again soon. 12/09: Patient considerably less edematous over the past several days following successful dialysis runs. Continually fails attempts at weaning parameters and desaturation. Left chest drainage is no growth by culture. White blood cell count remains elevated. 12/10: Remains intubated. WBC count elevated but stable. Left chest tube with 260 mL output in 24 hours. BUN/creatinine remains elevated 12/11: Remains intubated sedated hemoglobin dropped to 5.8 today. RN has noted lower GI bleed. Protonix IV every 12 started and GI consulted. Transfuse 2 units PRBC. Keep n.p.o. discussed with Dr. Wellington 12/12: Patient remains intubated sedated for vent synchrony. Hemoglobin stable 7.5. Endoscopy negative yesterday CT abdomen pelvis no active bleeding. Hemodynamically remained stable. Receiving hemodialysis at this time. Left chest tube with high output 450 mL in 24 hours. Attempt weaning trials starting today 12/13: Patient continues to lose blood. Hemoglobin 5.5. Plan to get colonoscopy today. Continues to have melanotic stools. The night RN aspirated blood from jejunostomy tube. Enteroscopy yesterday was unremarkable. Transfusing 3 units of PRBC repeat hemoglobin at 2 PM. No significant bloody output from ZAINAB drains. Will discuss with general surgery Objective Vital Signs / I&O: Vital Signs 12/12/17 08:00 12/12/17 08:19 12/12/17 09:00 Temperature 99.3 F Pulse Rate 93 H 102 H Respiratory Rate 20 20 19 Blood Pressure Pulse Oximetry 100 98 100 12/12/17 10:00 12/12/17 12:00 12/12/17 14:00 Temperature 99.6 F Pulse Rate 108 H 111 H 118 H Respiratory Rate 20 19 Blood Pressure Pulse Oximetry 100 100 12/12/17 15:58 12/12/17 16:00 12/12/17 17:00 Temperature 100.0 F H Pulse Rate 114 H 124 H Respiratory Rate 22 22 23 Blood Pressure Pulse Oximetry 98 100 100 12/12/17 17:15 12/12/17 17:30 12/12/17 17:45 Temperature Pulse Rate 132 H 129 H 128 H Respiratory Rate Blood Pressure Pulse Oximetry 100 100 100 12/12/17 18:00 12/12/17 18:15 12/12/17 18:30 Temperature Pulse Rate 125 H 124 H 126 H Respiratory Rate Blood Pressure Pulse Oximetry 100 100 100 12/12/17 18:45 12/12/17 19:00 12/12/17 19:15 Temperature Pulse Rate 128 H 132 H 133 H Respiratory Rate Blood Pressure Pulse Oximetry 100 100 99 12/12/17 19:30 12/12/17 19:45 12/12/17 20:00 Temperature 98.9 F Pulse Rate 133 H 131 H 131 H Respiratory Rate 19 Blood Pressure Pulse Oximetry 99 99 99 12/12/17 20:15 12/12/17 20:30 12/12/17 20:45 Temperature Pulse Rate 129 H 130 H 128 H Respiratory Rate Blood Pressure Pulse Oximetry 100 100 100 12/12/17 21:00 12/12/17 21:01 12/12/17 21:15 Temperature Pulse Rate 126 H 127 H Respiratory Rate 18 Blood Pressure Pulse Oximetry 100 100 100 12/12/17 21:30 12/12/17 21:45 12/12/17 22:00 Temperature Pulse Rate 131 H 125 H 126 H Respiratory Rate 19 Blood Pressure Pulse Oximetry 100 100 100 12/12/17 22:15 12/12/17 22:30 12/12/17 22:45 Temperature Pulse Rate 124 H 124 H 123 H Respiratory Rate 22 18 18 Blood Pressure Pulse Oximetry 100 100 100 12/12/17 23:00 12/12/17 23:15 12/12/17 23:30 Temperature Pulse Rate 123 H 124 H 124 H Respiratory Rate 19 21 19 Blood Pressure Pulse Oximetry 100 100 100 12/12/17 23:32 12/12/17 23:45 12/13/17 00:00 Temperature 98.7 F Pulse Rate 123 H 123 H Respiratory Rate 20 18 20 Blood Pressure Pulse Oximetry 100 100 100 12/13/17 00:15 12/13/17 00:30 12/13/17 00:45 Temperature Pulse Rate 124 H 123 H 123 H Respiratory Rate 19 21 19 Blood Pressure Pulse Oximetry 100 100 100 12/13/17 01:00 12/13/17 01:15 12/13/17 01:30 Temperature Pulse Rate 122 H 121 H 100 H Respiratory Rate 20 20 18 Blood Pressure Pulse Oximetry 100 100 100 12/13/17 01:45 12/13/17 02:00 12/13/17 02:15 Temperature Pulse Rate 103 H 106 H 107 H Respiratory Rate 20 20 20 Blood Pressure Pulse Oximetry 100 100 100 12/13/17 02:30 12/13/17 02:45 12/13/17 03:00 Temperature Pulse Rate 108 H 109 H 113 H Respiratory Rate 20 18 21 Blood Pressure Pulse Oximetry 100 100 100 12/13/17 03:15 12/13/17 03:30 12/13/17 03:43 Temperature Pulse Rate 112 H 113 H Respiratory Rate 19 21 18 Blood Pressure Pulse Oximetry 100 100 100 12/13/17 03:45 12/13/17 04:00 12/13/17 04:15 Temperature 98.4 F Pulse Rate 112 H 111 H 114 H Respiratory Rate 19 19 20 Blood Pressure Pulse Oximetry 100 100 100 12/13/17 04:51 12/13/17 05:00 12/13/17 05:43 Temperature 98.8 F 98.6 F 98.7 F Pulse Rate 114 H 112 H 111 H Respiratory Rate 18 18 18 Blood Pressure 157/68 H Pulse Oximetry 100 100 100 12/13/17 05:48 12/13/17 05:50 12/13/17 06:00 Temperature 99.0 F 99.1 F Pulse Rate 113 H 108 H 109 H Respiratory Rate 18 19 Blood Pressure Pulse Oximetry 100 100 12/13/17 07:25 Temperature 99.1 F Pulse Rate 106 H Respiratory Rate 20 Blood Pressure Pulse Oximetry 100 Intake & Output 12/12/17 12/13/17 12/13/17 18:59 06:59 18:59 Intake Total 1030 / 1030 2732.2588 / 2732.2588 0 / 0 Output Total 705 / 705 840 / 840 Balance 325 / 325 1892.2588 / 1892.2588 0 / 0 Weight 79.4 kg Intake: IV 850 / 850 2132.2588 / 2132.2588 Versed Inj 50 mg In 50 ml @ 2 50 / 50 50 / 50 MG/HR 2 mls/hr IV.CONT TITRATE PRN Rx#:[id number] Flexbumin 25% Inj 100 ML @ 60 100 / 100 mls/hr IV.SIG WITH DIALYSIS PRN Rx#:[id number] Intralipid 20% Inj 250 ML @ 31. 250 / 250 25 mls/hr IV.SIG Q24H [facility] Rx#: [id number] Mycamine Inj 100 MG In NS Inj 100 / 100 100 ML @ 100 mls/hr IV.SIG Q24H [facility] Rx#:[id number] Zosyn 2.25 GM Premix 50 ML @ 100 / 100 50 / 50 100 mls/hr IV.SIG Q8H COLE Rx#: [id number] Sodium Chloride 23.4% Inj 5.5 1532.2588 / 1532.2588 MEQ Sodium Acetate Inj 29.5 MEQ KCl Inj 20 MEQ Calcium Chloride Inj 4.5 MEQ MVI-12 Inj 10 ML Folvite Inj 1 MG In Clinimix 5%/D20W Inj 2,000 ML @ 65 mls/hr IV.SIG Q24H [facility] Rx#: [id number] fentaNYL 10 mcg/mL Premix Drip 500 / 500 250 / 250 2,500 mcg In 250 ml @ 50 MCG/HR 5 mls/hr IV.SIG TITRATE PRN Rx #:[id number] Tube Feeding 0 / 0 Tube Irrigant 180 / 180 600 / 600 Intake (Blood Product) Amt 0 / 0 0 / 0 Rbc As-3 Leukoreduced Unit 0 / 0 [id number] Rbc As-3 Leukoreduced Unit 0 / 0 0 / 0 [id number] Rbc As-3 Leukoreduced Unit 0 / 0 [id number] Output: Urine 0 / 0 Stool 300 / 300 400 / 400 Wound Drainage 255 / 255 310 / 310 # 1 Right Abdomen 5 / 5 10 10 # 2 Right Abdomen 250 / 250 300 / 300 Chest Tube Drainage 150 / 150 130 / 130 #1 Left Pleural 150 / 150 130 / 130 Other: Date of Last Bowel Movement 12/11/17 12/13/17 Result Diagrams: 12/13/17 03:17 12/13/17 03:17 Objective Remarks: GEN: Chronically ill-appearing, sedated for vent synchrony HEENT: NCAT, pupils 3 mm and reactive bilaterally NECK: RIJ vasc-cath and LIJ TLC present, clean/ dry/ intact CARDIO: NSR, regular rhythm, no JVD PULM: prvc, fio2 35%. equal chest rise. Scattered rhonchi persist, decreased breath sounds both bases. L pigtail with 260 ml output in 24 hr ABD: Midline surgical bandages clean/ dry/ intact. ZAINAB #1 is anterior to esophagojejunostomy anastomosis, ZAINAB #2 posterior, both with serosanguineous drainage. Abdomen soft. SKIN: No rashes or lesions, dry NEURO: Moves 4 limbs spontaneously. Purposeful with arms, tracks with eyes. Does not follow commands. Opens eyes to voice. Assessment and Plan - Problem List (1) Gastric perforation Code(s): K25.5 - Chronic or unspecified gastric ulcer with perforation Status : Resolved (2) Status post total gastrectomy and Dinh-en-Y esophagojejunal anastomosis Code(s): Z90.3 - Acquired absence of stomach [part of]; Z98.0 - Intestinal bypass and anastomosis status Status: Acute (3) Ischemic hepatitis Code(s): K75.9 - Inflammatory liver disease, unspecified Status: Acute (4) Gastric necrosis Code(s): K31.89 - Other diseases of stomach and duodenum Status: Resolved (5) Thrombocytopenia Code(s): D69.6 - Thrombocytopenia, unspecified Status: Acute (6) Acute bilateral deep vein thrombosis (DVT) of upper extremities Code(s): I82.623 - Acute embolism and thrombosis of deep veins of upper extremity, bilateral Status: Acute (7) Anemia Code(s): D64.9 - Anemia, unspecified Status: Acute (8) Leukocytosis Code(s): D72.829 - Elevated white blood cell count, unspecified Status: Acute (9) Candidemia Code(s): B37.7 - Candidal sepsis Status: Acute (10) On total parenteral nutrition (TPN) Code(s): Z78.9 - Other specified health status Status: Acute (11) Hx of cardiac arrest Code(s): Z86.74 - Personal history of sudden cardiac arrest Status: Resolved (12) Acute hemodialysis patient Code(s): Z99.2 - Dependence on renal dialysis Status: Acute (13) JACLYN (acute kidney injury) Code(s): N17.9 - Acute kidney failure, unspecified Status: Acute (14) Aspiration pneumonia Code(s): J69.0 - Pneumonitis due to inhalation of food and vomit Status: Acute (15) Acute respiratory failure Code(s): J96.00 - Acute respiratory failure, unspecified whether with hypoxia or hypercapnia Status: Acute - Assessment and Plan Plan: NEURO: On Fentanyl/versed drips for sedation, pain control Pupils dilated bilaterally--> stepmother states dilated fundoscopic exam prior to transfer. Patient did awaken and follow commands. RESP: Acute respiratory failure PRVC, Ventilator Bundle Ventilator weaning when appropriate Scheduled and as needed breathing treatments Spontaneous breathing trials as tolerated, too unstable for extubation CV: Cardiac arrest 11/23/17 (PEA arrest due to shock secondary to acute gastric perf and tension pneumoperitoneum) Septic shock, resolved Now off pressors Hemodynamic monitoring with L radial art line. Use as needed medication for hypertension GI: s/p gastric perforation with tension pneumoperitoneum status post ex lap with primary repair of anterior gastric perforation with stapler 11/23 On second look 11/25 he was found to have gastric necrosis requiring subtotal gastrectomy and placement of AB Thera VAC dressing. The bowel was in discontinuity and he was transferred to [facility]. On 11/28 he underwent reexploration with Dinh-en-y esophagojejunostomy, feeding jejunostomy placement, diagnostic EGD, primary fascial closure. Gastric necrosis Ischemic hepatopathy GIB with blood loss anemia NGT to LIWS, do not manipulate NGT per general surgery orders from [facility]. Has feeding jejunostomy and tube feeds with Nepro 10 mL per hour had been started at [facility], currently on hold due to GI bleed Enteroscopy 12/12/2017 unremarkable, colonoscopy today ZAINAB drains in place #1 anterior to anastomosis, #2 posterior to the anastomosis. Management per general surgery. Continue TPN renal formula 46 mL/hr. Intermittent lipids daily. wound vac was in place at outside hospital, currently wet to dry dressings in place upon arrival. Dr. Wellington general surgery following Had right upper quadrant ultrasound on 11/27/17 that demonstrated contracted gallbladder with sludge. No evidence of cholecystitis. Echogenicity in right liver related to focal fatty change or altered perfusion, patent vascularity. Protonix GTT FEN/RENAL: JACLYN secondary to ischemic ATN HD as started 11/26 at [employer]. Had HD 3 hours on 11/28 at [facility] wtih 1700 mL UF Has Delgado in place currently. Has R IJ Vascath. Monitor I/O and electrolytes. Nephrology following ID: Gastric perforation with large amount particulate peritoneal contamination 11/23 Acute Aspiration pneumonia Candidemia (C [place] 11/26 at culture) - reportedly blood cultures at OSH were positive. Patient had been on micafungin 100 mg IV daily (started at ) with last administration at 10 AM on 11/29. Was previously on Diflucan IV. On Zosyn 2.25 IV every 8 hours with last administration 11/29 at noon. Continue zosyn/micafungin. Patient evaluated by ophthalmology prior to transfer. Do not see an ophthalmology note in the transfer documentation, requested document. Requested culture data from [facility]. Follow-up cultures here Sputum culture 11/24 with pansensitive Klebsiella pneumonia ID following Dr. Millan HEME: Anemia requiring transfusion Thrombocytopenia-resolved Bilateral upper extremity DVTs Transfuse 3 units PRBC today. GI workup as above. U/s 11/26 BUE - thrombus R axillary, brachial and basilic veins and thrombus in left axillary and left brachial veins. U/s bilateral lower extremities 11/26 at [facility] negative from common femoral to popliteal vein levels. Arrived on heparin drip, due to GI bleed and anemia all anticoagulation is being held Hematology consult was obtained at [facility] and recommended heparin drip and transfuse prn for platelets <50k. ENDO: Monitor Glucose q4 hours and use low dose insulin sliding scale as indicated. PROPH: s/q heparin held due to blood loss anemia. Protonix 40 mg IV daily for stress ulcer prophylaxis. DVT prophylaxis. ACCESS: R IJ vascath , L IJ CVL, L radial art line. All existing lines were replaced at [facility]. FULL CODE Level 3 H and P. (6) Acute bilateral deep vein thrombosis (DVT) of upper extremities Qualifiers: Affected thrombotic vein of extremity: brachial Qualified Code(s): I82.623 - Acute embolism and thrombosis of deep veins of upper extremity, bilateral (15) Acute respiratory failure Qualifiers: Respiratory failure complication: hypoxia Qualified Code(s): J96.01 - Acute respiratory failure with hypoxia
[2017-12-13] MEDS: Piperacil/Tazo 2.25 GM Premix 50 ML IV.SIG SCH ×3 (08:07→23:12)
[2017-12-13] MEDS: Calcium Acetate 667 MG Capsule PO SCH ×3 (08:07→17:21)
[2017-12-13] MEDS: Chlorhexidine 0.12% Oral Kit 15 ML UDC OROPHARYNG SCH ×3 (08:08→20:15)
[2017-12-13] MEDS: hydrALAZINE 50 MG Tablet PO SCH ×3 (08:08→17:21)
[2017-12-13] MEDS ORDERED: Calcium Gluconate Inj 1 GM in Dextrose 5% in Water Inj 100 ML IV.SIG ONE ×2 (10:00)
--- NOTE | 2017-12-13 10:16 | P.PNGI ---
Subjective Interval history: Patient intubated and mechanically ventilated. Large among of maroon colored stools noted in drainage collection bag as well as leaking from around rectal tube this am. ST on cm 118, BP 155/60. HGB 5.8 this am pre transfusion of 3 units PRBC's Planned EGD/Colonoscopy today. Physical Exam Vital signs: Vital Signs 12/12/17 12:00 12/12/17 14:00 12/12/17 15:58 Temperature 99.6 F Pulse Rate 111 H 118 H Respiratory Rate 19 22 Blood Pressure Pulse Oximetry 100 98 12/12/17 16:00 12/12/17 17:00 12/12/17 17:15 Temperature 100.0 F H Pulse Rate 114 H 124 H 132 H Respiratory Rate 22 23 Blood Pressure Pulse Oximetry 100 100 100 12/12/17 17:30 12/12/17 17:45 12/12/17 18:00 Temperature Pulse Rate 129 H 128 H 125 H Respiratory Rate Blood Pressure Pulse Oximetry 100 100 100 12/12/17 18:15 12/12/17 18:30 12/12/17 18:45 Temperature Pulse Rate 124 H 126 H 128 H Respiratory Rate Blood Pressure Pulse Oximetry 100 100 100 12/12/17 19:00 12/12/17 19:15 12/12/17 19:30 Temperature Pulse Rate 132 H 133 H 133 H Respiratory Rate Blood Pressure Pulse Oximetry 100 99 99 12/12/17 19:45 12/12/17 20:00 12/12/17 20:15 Temperature 98.9 F Pulse Rate 131 H 131 H 129 H Respiratory Rate 19 Blood Pressure Pulse Oximetry 99 99 100 12/12/17 20:30 12/12/17 20:45 12/12/17 21:00 Temperature Pulse Rate 130 H 128 H 126 H Respiratory Rate Blood Pressure Pulse Oximetry 100 100 100 12/12/17 21:01 12/12/17 21:15 12/12/17 21:30 Temperature Pulse Rate 127 H 131 H Respiratory Rate 18 Blood Pressure Pulse Oximetry 100 100 100 12/12/17 21:45 12/12/17 22:00 12/12/17 22:15 Temperature Pulse Rate 125 H 126 H 124 H Respiratory Rate 19 22 Blood Pressure Pulse Oximetry 100 100 100 12/12/17 22:30 12/12/17 22:45 11/07/18 23:00 Temperature Pulse Rate 124 H 123 H 123 H Respiratory Rate 18 18 19 Blood Pressure Pulse Oximetry 100 100 100 12/12/17 23:15 12/12/17 23:30 12/12/17 23:32 Temperature Pulse Rate 124 H 124 H Respiratory Rate 21 19 20 Blood Pressure Pulse Oximetry 100 100 100 12/12/17 23:45 12/13/17 00:00 12/13/17 00:15 Temperature 98.7 F Pulse Rate 123 H 123 H 124 H Respiratory Rate 18 20 19 Blood Pressure Pulse Oximetry 100 100 100 12/13/17 00:30 12/13/17 00:45 12/13/17 01:00 Temperature Pulse Rate 123 H 123 H 122 H Respiratory Rate 21 19 20 Blood Pressure Pulse Oximetry 100 100 100 12/13/17 01:15 12/13/17 01:30 12/13/17 01:45 Temperature Pulse Rate 121 H 100 H 103 H Respiratory Rate 20 18 20 Blood Pressure Pulse Oximetry 100 100 100 12/13/17 02:00 12/13/17 02:15 12/13/17 02:30 Temperature Pulse Rate 106 H 107 H 108 H Respiratory Rate 20 20 20 Blood Pressure Pulse Oximetry 100 100 100 12/13/17 02:45 12/13/17 03:00 12/13/17 03:15 Temperature Pulse Rate 109 H 113 H 112 H Respiratory Rate 18 21 19 Blood Pressure Pulse Oximetry 100 100 100 12/13/17 03:30 12/13/17 03:43 12/13/17 03:45 Temperature Pulse Rate 113 H 112 H Respiratory Rate 21 18 19 Blood Pressure Pulse Oximetry 100 100 100 12/13/17 04:00 12/13/17 04:15 12/13/17 04:51 Temperature 98.4 F 98.8 F Pulse Rate 111 H 114 H 114 H Respiratory Rate 19 20 18 Blood Pressure 157/68 H Pulse Oximetry 100 100 100 12/13/17 05:00 12/13/17 05:43 12/13/17 05:48 Temperature 98.6 F 98.7 F 99.0 F Pulse Rate 112 H 111 H 113 H Respiratory Rate 18 18 18 Blood Pressure Pulse Oximetry 100 100 100 12/13/17 05:50 12/13/17 06:00 12/13/17 07:25 Temperature 99.1 F 99.1 F Pulse Rate 108 H 109 H 106 H Respiratory Rate 19 20 Blood Pressure Pulse Oximetry 100 100 12/13/17 08:24 12/13/17 08:28 Temperature Pulse Rate 103 H Respiratory Rate 20 18 Blood Pressure Pulse Oximetry 30 L Intake & Output 12/12/17 12/13/17 12/13/17 18:59 06:59 18:59 Intake Total 1030 / 1030 2732.2588 / 2732.2588 0 / 0 Output Total 705 / 705 840 / 840 Balance 325 / 325 1892.2588 / 1892.2588 0 / 0 Weight 79.4 kg Intake: IV 850 / 850 2132.2588 / 2132.2588 Versed Inj 50 mg In 50 ml @ 2 50 / 50 50 / 50 MG/HR 2 mls/hr IV.CONT TITRATE PRN Rx#:[id number] Flexbumin 25% Inj 100 ML @ 60 100 / 100 mls/hr IV.SIG WITH DIALYSIS PRN Rx#:[id number] Intralipid 20% Inj 250 ML @ 31. 250 / 250 25 mls/hr IV.SIG Q24H COLE Rx#: [id number] Mycamine Inj 100 MG In NS Inj 100 / 100 100 ML @ 100 mls/hr IV.SIG Q24H CO[facility] Rx#:[id number] Zosyn 2.25 GM Premix 50 ML @ 100 / 100 50 / 50 100 mls/hr IV.SIG Q8H COLE Rx#: [id number] Sodium Chloride 23.4% Inj 5.5 1532.2588 / 1532.2588 MEQ Sodium Acetate Inj 29.5 MEQ KCl Inj 20 MEQ Calcium Chloride Inj 4.5 MEQ MVI-12 Inj 10 ML Folvite Inj 1 MG In Clinimix 5%/D20W Inj 2,000 ML @ 65 mls/hr IV.SIG Q24H COLE Rx#: [id number] fentaNYL 10 mcg/mL Premix Drip 500 / 500 250 / 250 2,500 mcg In 250 ml @ 50 MCG/HR 5 mls/hr IV.SIG TITRATE PRN Rx #:[id number] Tube Feeding 0 / 0 Tube Irrigant 180 / 180 600 / 600 Intake (Blood Product) Amt 0 / 0 0 / 0 Rbc As-3 Leukoreduced Unit 0 / 0 [id number] Rbc As-3 Leukoreduced Unit 0 / 0 0 / 0 [id number] Rbc As-3 Leukoreduced Unit 0 / 0 [id number] Output: Urine 0 / 0 Stool 300 / 300 400 / 400 Wound Drainage 255 / 255 310 / 310 # 1 Right Abdomen 5 / 5 # 2 Right Abdomen 250 / 250 300 / 300 Chest Tube Drainage 150 / 150 130 / 130 #1 Left Pleural 150 / 150 130 / 130 Other: Date of Last Bowel Movement 12/11/17 12/13/17 - Constitutional chronically ill appearing Comments: sedated for vent synchrony - Routine HEENT Exam Head: Present: normocephalic - Routine Respiratory Exam Present: patient mechanically ventilated - Routine Cardiovascular Exam Present: RRR - Routine Abdominal Exam Present: distended, firm, surgical scars, drain Comments: ZAINAB x 2 - Routine Extremities Exam Present: pulses intact. Absent: edema - Routine Skin Exam Present: dry, warm - Urinary Catheter Management Indwelling Temp Sensing Catheter Cath placed during this visit: no Results - Labs CBC & Chem 7: 12/13/17 10:10 12/13/17 03:17 Laboratory Results - last 24 hr 12/04/17 12/11/17 12/12/17 10:46 08:25 12:03 WBC RBC Hgb Hct MCV MCH MCHC RDW Plt Count MPV Sodium Potassium Chloride Carbon Dioxide Anion Gap BUN Creatinine Estimated GFR POC Glucose 134 H Random Glucose Calcium Total Bilirubin AST ALT Alkaline Phosphatase Ammonia Total Protein Albumin MTS Gel Crossmatch See Detail See Detail 12/12/17 12/12/17 12/12/17 17:32 20:00 21:35 WBC RBC Hgb Hct MCV MCH MCHC RDW Plt Count MPV Sodium Potassium Chloride Carbon Dioxide Anion Gap BUN Creatinine Estimated GFR POC Glucose 132 H 151 H Random Glucose Calcium Total Bilirubin AST ALT Alkaline Phosphatase Ammonia 23 Total Protein Albumin MTS Gel Crossmatch 12/13/17 12/13/17 12/13/17 01:12 03:17 03:17 WBC 18.6 H RBC 1.77 L Hgb 5.5 L* D Hct 16.1 L* MCV 90.7 MCH 30.9 MCHC 34.0 RDW 15.0 Plt Count 302 MPV 9.7 Sodium 139 Potassium 4.3 Chloride 98 Carbon Dioxide 25.8 Anion Gap 15 BUN 90 H Creatinine 5.77 H Estimated GFR 13 L POC Glucose 181 H Random Glucose 160 H Calcium 8.0 L Total Bilirubin 1.4 H AST 102 H ALT 133 H Alkaline Phosphatase 221 H Ammonia Total Protein 5.9 L Albumin 1.8 L MTS Gel Crossmatch 12/13/17 12/13/17 04:10 08:14 WBC RBC Hgb Hct MCV MCH MCHC RDW Plt Count MPV Sodium Potassium Chloride Carbon Dioxide Anion Gap BUN Creatinine Estimated GFR POC Glucose 162 H Random Glucose Calcium Total Bilirubin AST ALT Alkaline Phosphatase Ammonia Total Protein Albumin MTS Gel Crossmatch See Detail - Imaging Impressions Chest X-Ray 12/13/17 06:00 CONCLUSION: Improving aeration Assessment and Plan (1) Anemia Status: Acute Code(s): D64.9 - Anemia, unspecified - Plan Assessment: - Perforated gastric ulcer with tension pneumoperitoneum S/P exploratory laparotomy with primary repair of anterior gastric perforation with stapler 11/23- repeat laparotomy done on 11/25 with 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 Consult for possible lower GI bleeding- pt noted to have maroon colored stool Enteroscopy (12/11) S/P total gastrectomy, esophagojejunal anastomosis normal, some old blood, no fresh blood, no blood seen in jejunum NM bleeding scan (12/11) Negative CT abdomen/pelvis WO IV contrast (12/12) Postoperative abdomen appearance (12/12) Pt received 2 U PRBCs yesterday, H/H stable since last night. According to RN approximately 100 mL of liquid stool since last night. Family at bedside, agreeable to colonoscopy tomorrow. 12/13/17- Patient received 3 units prbc's this am. Pre- transfusion Hgb 5.5, HCT 16.1. Bedside RN reports large amount of maroon colored drainage noted in collection bag as well as large amount of leakage of melanotic stools around rectal tube. Abdomen firm and distended. BP 155/60, ST 118. Will check stat HH , EGD/ Colonoscopy today urgently, CT abdomen. (12/13/17)-Stat hemoglobin 9.6 hematocrit 28.4. Plan: Tube feeding off for now EGD/Colonoscopy today - urgent Hold anticoagulant Stat HH Pantoprazole drip Supportive care Further recommendations to follow based upon patient status and EGD/ colonoscopy findings Pt has been seen and examined by myself and Dr. King and this note is written on her behalf - Attending Attestation Dr. King
[2017-12-13 10:49] LABS: Hematocrit 28.4 % (39.0-51.0); Hemoglobin 9.6 gm/dL (13.0-17.0)
--- NOTE | 2017-12-13 11:03 | P.PNNP ---
Subjective Interval history: Patient was seen, no distress, sedated. Parents were at bedside. Patient received 3 units of PBRC this morning, Hgb was 5.5. Patient is getting colonoscopy and EGD today. Patient was dialyzed yesterday. <Jocelyn Crews - Last Filed: 12/13/17 11:07> Physical Exam Vital signs: Vital Signs 12/12/17 12:00 12/12/17 14:00 12/12/17 15:58 Temperature 99.6 F Pulse Rate 111 H 118 H Respiratory Rate 19 22 Blood Pressure Pulse Oximetry 100 98 12/12/17 16:00 12/12/17 17:00 12/12/17 17:15 Temperature 100.0 F H Pulse Rate 114 H 124 H 132 H Respiratory Rate 22 23 Blood Pressure Pulse Oximetry 100 100 100 12/12/17 17:30 12/12/17 17:45 12/12/17 18:00 Temperature Pulse Rate 129 H 128 H 125 H Respiratory Rate Blood Pressure Pulse Oximetry 100 100 100 12/12/17 18:15 12/12/17 18:30 12/12/17 18:45 Temperature Pulse Rate 124 H 126 H 128 H Respiratory Rate Blood Pressure Pulse Oximetry 100 100 100 12/12/17 19:00 12/12/17 19:15 12/12/17 19:30 Temperature Pulse Rate 132 H 133 H 133 H Respiratory Rate Blood Pressure Pulse Oximetry 100 99 99 12/12/17 19:45 12/12/17 20:00 12/12/17 20:15 Temperature 98.9 F Pulse Rate 131 H 131 H 129 H Respiratory Rate 19 Blood Pressure Pulse Oximetry 99 99 100 12/12/17 20:30 12/12/17 20:45 12/12/17 21:00 Temperature Pulse Rate 130 H 128 H 126 H Respiratory Rate Blood Pressure Pulse Oximetry 100 100 100 12/12/17 21:01 12/12/17 21:15 12/12/17 21:30 Temperature Pulse Rate 127 H 131 H Respiratory Rate 18 Blood Pressure Pulse Oximetry 100 100 100 12/12/17 21:45 12/12/17 22:00 12/12/17 22:15 Temperature Pulse Rate 125 H 126 H 124 H Respiratory Rate 19 22 Blood Pressure Pulse Oximetry 100 100 100 12/12/17 22:30 12/12/17 22:45 12/12/17 23:00 Temperature Pulse Rate 124 H 123 H 123 H Respiratory Rate 18 18 19 Blood Pressure Pulse Oximetry 100 100 100 12/12/17 23:15 12/12/17 23:30 12/12/17 23:32 Temperature Pulse Rate 124 H 124 H Respiratory Rate 21 19 20 Blood Pressure Pulse Oximetry 100 100 100 12/12/17 23:45 12/13/17 00:00 12/13/17 00:15 Temperature 98.7 F Pulse Rate 123 H 123 H 124 H Respiratory Rate 18 20 19 Blood Pressure Pulse Oximetry 100 100 100 12/13/17 00:30 12/13/17 00:45 12/13/17 01:00 Temperature Pulse Rate 123 H 123 H 122 H Respiratory Rate 21 19 20 Blood Pressure Pulse Oximetry 100 100 100 12/13/17 01:15 12/13/17 01:30 12/13/17 01:45 Temperature Pulse Rate 121 H 100 H 103 H Respiratory Rate 20 18 20 Blood Pressure Pulse Oximetry 100 100 100 12/13/17 02:00 12/13/17 02:15 12/13/17 02:30 Temperature Pulse Rate 106 H 107 H 108 H Respiratory Rate 20 20 20 Blood Pressure Pulse Oximetry 100 100 100 12/13/17 02:45 12/13/17 03:00 12/13/17 03:15 Temperature Pulse Rate 109 H 113 H 112 H Respiratory Rate 18 21 19 Blood Pressure Pulse Oximetry 100 100 100 12/13/17 03:30 12/13/17 03:43 12/13/17 03:45 Temperature Pulse Rate 113 H 112 H Respiratory Rate 21 18 19 Blood Pressure Pulse Oximetry 100 100 100 12/13/17 04:00 12/13/17 04:15 12/13/17 04:51 Temperature 98.4 F 98.8 F Pulse Rate 111 H 114 H 114 H Respiratory Rate 19 20 18 Blood Pressure 157/68 H Pulse Oximetry 100 100 100 12/13/17 05:00 12/13/17 05:43 12/13/17 05:48 Temperature 98.6 F 98.7 F 99.0 F Pulse Rate 112 H 111 H 113 H Respiratory Rate 18 18 18 Blood Pressure Pulse Oximetry 100 100 100 12/13/17 05:50 12/13/17 06:00 12/13/17 07:25 Temperature 99.1 F 99.1 F Pulse Rate 108 H 109 H 106 H Respiratory Rate 19 20 Blood Pressure Pulse Oximetry 100 100 12/13/17 08:24 12/13/17 08:28 Temperature Pulse Rate 103 H Respiratory Rate 20 18 Blood Pressure Pulse Oximetry 30 L Intake & Output 12/12/17 12/13/17 12/13/17 18:59 06:59 18:59 Intake Total 1030 / 1030 2732.2588 / 2732.2588 450 / 450 Output Total 705 / 705 840 / 840 Balance 325 / 325 1892.2588 / 1892.2588 450 / 450 Weight 79.4 kg Intake: IV 850 / 850 2132.2588 / 2132.2588 50 / 50 Versed Inj 50 mg In 50 ml @ 2 50 / 50 50 / 50 MG/HR 2 mls/hr IV.CONT TITRATE PRN Rx#:[id number] Flexbumin 25% Inj 100 ML @ 60 100 / 100 mls/hr IV.SIG WITH DIALYSIS PRN Rx#:[id number] Intralipid 20% Inj 250 ML @ 31. 250 / 250 25 mls/hr IV.SIG Q24H COLE Rx#: [id number] Mycamine Inj 100 MG In NS Inj 100 / 100 100 ML @ 100 mls/hr IV.SIG Q24H COLE Rx#:[id number] Zosyn 2.25 GM Premix 50 ML @ 100 / 100 50 / 50 50 / 50 100 mls/hr IV.SIG Q8H COLE Rx#: [id number] Sodium Chloride 23.4% Inj 5.5 1532.2588 / 1532.2588 MEQ Sodium Acetate Inj 29.5 MEQ KCl Inj 20 MEQ Calcium Chloride Inj 4.5 MEQ MVI-12 Inj 10 ML Folvite Inj 1 MG In Clinimix 5%/D20W Inj 2,000 ML @ 65 mls/hr IV.SIG Q24H COLE Rx#: [id number] fentaNYL 10 mcg/mL Premix Drip 500 / 500 250 / 250 2,500 mcg In 250 ml @ 50 MCG/HR 5 mls/hr IV.SIG TITRATE PRN Rx #:[id number] Tube Feeding 0 / 0 Tube Irrigant 180 / 180 600 / 600 Intake (Blood Product) Amt 0 / 0 400 / 400 Rbc As-3 Leukoreduced Unit 0 / 0 [id number] Rbc As-3 Leukoreduced Unit 0 / 0 0 / 0 [id number] Rbc As-3 Leukoreduced Unit 400 / 400 [id number] Output: Urine 0 / 0 Stool 300 / 300 400 / 400 Wound Drainage 255 / 255 310 / 310 # 1 Right Abdomen 5 / 5 10 / 10 # 2 Right Abdomen 250 / 250 300 / 300 Chest Tube Drainage 150 / 150 130 / 130 #1 Left Pleural 150 / 150 130 / 130 Other: Date of Last Bowel Movement 12/11/17 12/13/17 - Constitutional no acute distress - Routine HEENT Exam Head: Present: normocephalic ENT: Present: mucous membranes moist - Routine Neck Exam Present: trachea midline. Absent: tracheal deviation - Routine Respiratory Exam Present: patient mechanically ventilated. Absent: accessory muscle use, respiratory distress Comments: Left sided chest tube. - Routine Cardiovascular Exam Present: RRR. Absent: murmur - Routine Abdominal Exam Present: firm - Routine Extremities Exam Present: edema Comments: Generalized edema. - Routine Neurological Exam Absent: alert - Detailed Neurological Exam: Coma Scale Verbal Response: None - Routine Psychiatric Exam Present: unable to assess - Urinary Catheter Management Indwelling Temp Sensing Catheter Cath placed during this visit: no <Jocelyn Crews - Last Filed: 12/13/17 11:07> Vital signs: Vital Signs 12/13/17 14:45 12/13/17 15:00 12/13/17 15:15 Temperature Pulse Rate 108 H 112 H 110 H Respiratory Rate 29 H 22 23 Blood Pressure Pulse Oximetry 100 100 99 12/13/17 15:30 12/13/17 15:45 12/13/17 16:00 Temperature Pulse Rate 110 H 105 H 113 H Respiratory Rate 18 27 H 33 H Blood Pressure Pulse Oximetry 100 100 100 12/13/17 16:15 12/13/17 16:28 12/13/17 16:30 Temperature 97.1 F L Pulse Rate 110 H 103 H Respiratory Rate 30 H 19 25 H Blood Pressure Pulse Oximetry 100 100 100 12/13/17 18:00 12/13/17 19:00 12/13/17 20:00 Temperature 99.1 F Pulse Rate 103 H 102 H 97 H Respiratory Rate 24 21 Blood Pressure 163/68 H Pulse Oximetry 99 100 12/13/17 20:18 12/13/17 21:00 12/13/17 22:00 Temperature Pulse Rate 99 H 100 H 100 H Respiratory Rate 20 20 22 Blood Pressure Pulse Oximetry 100 100 12/13/17 23:00 12/13/17 23:34 12/14/17 00:00 Temperature 99.4 F Pulse Rate 103 H 102 H Respiratory Rate 20 20 20 Blood Pressure 163/65 H Pulse Oximetry 100 100 100 12/14/17 01:00 12/14/17 02:00 12/14/17 03:00 Temperature Pulse Rate 105 H 94 H 96 H Respiratory Rate 21 21 21 Blood Pressure Pulse Oximetry 100 100 100 12/14/17 03:48 12/14/17 04:00 12/14/17 05:00 Temperature 99.2 F Pulse Rate 98 H 97 H 96 H Respiratory Rate 20 22 21 Blood Pressure 159/61 H Pulse Oximetry 100 100 100 12/14/17 06:00 12/14/17 07:00 12/14/17 08:00 Temperature 98.8 F Pulse Rate 88 89 93 H Respiratory Rate 22 22 21 Blood Pressure Pulse Oximetry 100 100 100 12/14/17 08:15 12/14/17 09:00 12/14/17 10:00 Temperature Pulse Rate 93 H 96 H 95 H Respiratory Rate 19 23 17 Blood Pressure Pulse Oximetry 100 100 100 12/14/17 11:00 12/14/17 11:47 12/14/17 12:00 Temperature 98.8 F 98.7 F Pulse Rate 109 H 111 H 112 H Respiratory Rate 19 19 26 H Blood Pressure Pulse Oximetry 100 100 100 12/14/17 12:02 12/14/17 13:00 Temperature Pulse Rate 121 H Respiratory Rate 23 21 Blood Pressure Pulse Oximetry 100 95 Intake & Output 12/13/17 12/14/17 12/14/17 18:59 06:59 18:59 Intake Total 1295 / 1295 2451 / 2451 850 / 850 Output Total 1974 910 / 910 Balance -680 / -680 1541 / 1541 850 / 850 Weight 84.2 kg Intake: IV 685 / 685 2379 / 2379 450 / 450 Versed Inj 50 mg In 50 ml @ 2 50 / 50 MG/HR 2 mls/hr IV.CONT TITRATE PRN Rx#:[id number] Protonix Inj 80 MG In NS Inj 84 / 84 100 ML @ 10 mls/hr IV.CONT CONT PENDING SALE TO [facility] Rx#:[id number] Diprivan 1000 mg/100 ml Inj 1, 200 / 200 100 / 100 000 mg In 100 ml @ 5 MCG/KG/MIN 2.859 mls/hr IV.CONT TITRATE PRN Rx#:[id number] Calcium Gluconate Inj 1 GM In 110 / 110 D5W Inj 100 ML @ 110 mls/hr IV. SIG ONCE ONE Rx#:[id number] Intralipid 20% Inj 250 ML @ 31. 250 / 250 25 mls/hr IV.SIG Q24H PENDING SALE TO [facility] Rx#: [id number] Mycamine Inj 100 MG In NS Inj 100 / 100 100 / 100 100 ML @ 100 mls/hr IV.SIG Q24H PENDING SALE TO [facility] Rx#:[id number] Zosyn 2.25 GM Premix 50 ML @ 100 / 100 100 / 100 100 mls/hr IV.SIG Q8H PENDING SALE TO [facility] Rx#: [id number] NS Inj 250 ML @ 15 mls/hr IV. 75 / 75 SIG ONCE PENDING SALE TO [facility] Rx#:[id number] Sodium Chloride 23.4% Inj 5.5 1495 / 1495 MEQ Sodium Acetate Inj 29.5 MEQ KCl Inj 20 MEQ Calcium Chloride Inj 4.5 MEQ MVI-12 Inj 10 ML Folvite Inj 1 MG In Clinimix 5%/D20W Inj 2,000 ML @ 65 mls/hr IV.SIG Q24H PENDING SALE TO [facility] Rx#: [id number] fentaNYL 10 mcg/mL Premix Drip 250 / 250 250 / 250 250 / 250 2,500 mcg In 250 ml @ 50 MCG/HR 5 mls/hr IV.SIG TITRATE PRN Rx #:[id number] Tube Feeding 0 / 0 42 / 42 Tube Irrigant 160 / 160 30 / 30 Anesthesia Amount 50 / 50 Intake (Blood Product) Amt 400 / 400 400 / 400 Rbc As-3 Leukoreduced Unit 0 / 0 [id number] Rbc As-3 Leukoreduced Unit 400 / 400 [id number] Rbc As-3 Leukoreduced Unit 400 / 400 [id number] Output: Urine 0 / 0 Stool 350 / 350 60 / 60 Gastric Drainage 160 / 160 60 / 60 Pre-Hospital Jejunostomy Tube 10 / 10 Right Nare Nasogastric Tube 150 / 150 60 / 60 Wound Drainage 825 / 825 770 / 770 # 1 Right Abdomen 0 / 0 25 / 25 # 2 Right Abdomen 825 / 825 745 / 745 Chest Tube Drainage 640 / 640 #1 Left Pleural 640 / 640 Other: Date of Last Bowel Movement 12/13/17 12/14/17 12/14/17 - Urinary Catheter Management Indwelling Temp Sensing Catheter Cath placed during this visit: no <AilynFilipe - Last Filed: 12/14/17 14:41> Assessment and Plan - Assessment (1) JACLYN (acute kidney injury) Code(s): N17.9 - Acute kidney failure, unspecified Status: Acute Plan: Anuric renal failure. He has become dialysis dependent. Dialysis every 2nd day. Patient dialyzed yesterday. Monitor for recovery. Continue supportive care. Avoid nephrotoxic agents. PhosLo increased, patient's Phosphorus was 8.3. (2) Acute respiratory failure Code(s): J96.00 - Acute respiratory failure, unspecified whether with hypoxia or hypercapnia Status: Acute Qualifiers: Respiratory failure complication: hypoxia Qualified Code(s): J96.01 - Acute respiratory failure with hypoxia Plan: On the ventilator. Possible aspiration. (3) Gastric perforation Code(s): K25.5 - Chronic or unspecified gastric ulcer with perforation Status : Resolved Plan: s/p surgery. Subtotal gastrectomy in [place]. In [facility] he had: Dinh-en-y esophagojejunostomy, feeding jejunostomy placement, diagnostic EGD, primary fascial closure. Date of procedure: 11/28/17 (4) Candidemia Code(s): B37.7 - Candidal sepsis Status: Acute Plan: On Micafungin. Patient is also on Zosyn. Dose medications appropriate to renal function. (5) DVT (deep venous thrombosis) Code(s): I82.409 - Acute embolism and thrombosis of unspecified deep veins of unspecified lower extremity Status: Acute Plan: On heparin drip. DVT of bilateral upper extremities. (6) Anemia Code(s): D64.9 - Anemia, unspecified Status: Acute Plan: Could be multifactorial. Rule out bleeding. Also could be due to renal failure. Patient received 3 units of PRBC this morning. Transfuse prn. <Jocelyn Crews - Last Filed: 11/08/18 11:07> - Assessment (1) JACLYN (acute kidney injury) Code(s): N17.9 - Acute kidney failure, unspecified Status: Acute (2) Acute respiratory failure Code(s): J96.00 - Acute respiratory failure, unspecified whether with hypoxia or hypercapnia Status: Acute Qualifiers: Respiratory failure complication: hypoxia Qualified Code(s): J96.01 - Acute respiratory failure with hypoxia (3) Gastric perforation Code(s): K25.5 - Chronic or unspecified gastric ulcer with perforation Status : Resolved (4) Candidemia Code(s): B37.7 - Candidal sepsis Status: Acute (5) DVT (deep venous thrombosis) Code(s): I82.409 - Acute embolism and thrombosis of unspecified deep veins of unspecified lower extremity Status: Acute (6) Anemia Code(s): D64.9 - Anemia, unspecified Status: Acute - Attending Attestation patient was seen and examined. Poor prognosis. GI bleeding, requiring transfusion. CT ordered. GI on the case. Dialysis on Sunday <Filipe Robertson - Last Filed: 12/14/17 14:41>
[2017-12-13 11:12] LABS: Activated Partial Thrombo Time 30.7 sec (23.4-31.7); Prothrombin Time 10.4 sec (9.8-11.6)
[2017-12-13 11:17] LABS: Haptoglobin 290 mg/dL (30-200); Lactate Dehydrogenase 443 U/L (87-241)
--- NOTE | 2017-12-13 12:22 | P.DIET ---
Nutritional Evaluation Type of nutrition evaluation: follow-up Nutrition consult regarding: Tube Feeding, TPN/PPN Nutrition screening: [facility] [place] Screening comments: Re-admitted transfer from [facility]. Objective - Diagnosis Gastroenteritis - Objective % IBW: 92 (IBW = 190#) Body Weight Used for Calculations: Actual (79.4) Energy Needs - Lower Range (kCal/kg): 28 Energy Needs - Upper Range (kCal/kg): 32 Lower Limit kCal/kg (kCals): 2,223 Upper Limit kCal/kg (kCals): 2,541 Lower Limit Protein Factor (Grams per Kg): 1.2 Upper Limit Protein Factor (Grams per Kg): 1.5 Lower Protein Needs (Protein): 95 Upper Protein Needs (Protein): 119 Dietitian Reviewed in Medical Record: Curent medications, Intake & Output, Labs , Medical history, TPN/PPN, Tube feeding Diet Order: NPO Objective Comments: see recent extensive hx in H&P Labs: TG 427(12/01) Meds include: Phoslo, Novolog, Zofran, Protonix Feeding - Current TPN/PPN Current TPN: Clinimix 5/20 Current TPN/PPN Rate (ml/hr): 65 Amino Acid and Dextrose Current kCals Provided: 1,373 Amino Acid and Dextrose Current Protein Provided: 78 Current Lipid Concentration: 20% Current Lipids Rate: 250 mls daily over 8 hours Current kCal Provided by TPN/PPN: 1,873 Assessment Assessment: Pt continues at high nutritional risk r/t Clinical Status and need for alternative method of nutrition. Pt currently dialysis dependent. TF is on hold. Pt to have emergent EGD/Colonoscopy today. Labs, wts and clinical course reviewed. Recommend TPN increase to 83 mls/hr with current lipids to provide a total of 2260 kcals and 100 gms protein. Elevated TG noted on 12/01: request repeat TG weekly. Recommendations: TPN: Clinimix 5/20 @ 83 mls/hr LIPIDS: 20% lipids 250 mls/day Repeat TG: if it is >400, hold lipids When Tf is needed: recommend Nepro @ 55 mls/hr (2376 kcals and 107 gms protein) Dietitian to Monitor: Lab values, Intake & Output, Tube feeding tolerance, TPN/ PPN tolerance, Weight change, Medical course
--- NOTE | 2017-12-13 12:31 | GIPROC ---
[facility] [address] [facility]. [facility], [address] COLONOSCOPY PROCEDURE REPORT EXAM DATE: 12/13/2017 PATIENT NAME: Pk Marshall MR #: [id number] BIRTHDATE: 1970 ENDOSCOPIST: Maddi King MD ORDER #: [id number] MATRIX SUPERVISOR: Ashly De Anda and Myrna Thompson STATUS: inpatient INDICATIONS: The patient is a 47 yr old male here for a colonoscopy due to gi bleeding PROCEDURE PERFORMED: gi bleeding MEDICATIONS: Per Anesthesia and None. PREP QUALITY: poor PREP TYPE:Other: ESTIMATED BLOOD LOSS: None CONSENT: The patient understands the risks and benefits of the procedure and understands that these risks include, but are not limited to: sedation, allergic reaction, infection, perforation and/or bleeding. Alternative means of evaluation and treatment include, among others: physical exam, x-rays, and/or surgical intervention. The patient elects to proceed with this endoscopic procedure. medical equipment was checked for proper function. Hand hygiene and appropriate measures for infection prevention was taken. After the risks, benefits and alternatives of the procedure were thoroughly explained, Informed consent was verified, confirmed and timeout was successfully executed by the treatment team. A digital exam was performed and revealed hemorrhoids The Pentax EC-[id number] endoscope was introduced through the anus and advanced to the cecum, which was identified by both the appendix and ileocecal valve. The instrument was then slowly withdrawn as the colon was fully examined. COLON FINDINGS: Old blood to cecum, no active bleeding. Retroflexed views revealed internal hemorrhoids and Retroflexed views revealed small internal hemorrhoids The scope was then completely withdrawn from the patient and the procedure terminated. ADVERSE EVENTS: There were no complications. IMPRESSIONS: 1. Old blood to cecum, no active bleeding 2. Retroflexed views revealed internal hemorrhoids 3. Retroflexed views revealed small internal hemorrhoids 4. Was performed 5. Revealed hemorrhoids RECOMMENDATIONS: Npo CTA transfuse to keep hb more than 8 if active bleeding andcta negative consult IR RECALL: Colonoscopy PRN Maddi King MD eSigned: Maddi King MD 12/13/2017 12:30 PM cc:
--- NOTE | 2017-12-13 12:35 | GIPROC ---
[facility] [address] [facility]. [facility], [address] EGD PROCEDURE REPORT EXAM DATE: 12/13/2017 PATIENT NAME: Pk Marshall MR #: [id number] BIRTHDATE: 1970 ATTENDING: Maddi King MD ORDER #: [id number] [employer]ATION MAINTENANCE TECHNICIAN: Ashly De Anda and Myrna Thompson STATUS: inpatient INDICATIONS: The patient is a 47 yr old male here for an EGD due to gi bleeding PROCEDURE PERFORMED: enteroscopy with control of beleeding MEDICATIONS: Per Anesthesia and None. TOPICAL ANESTHETIC: none CONSENT: The patient understands the risks and benefits of the procedure and understands that these risks include, but are not limited to: sedation, allergic reaction, infection, perforation and/or bleeding. Alternative means of evaluation and treatment include, among others: physical exam, x-rays, and/or surgical intervention. The patient elects to proceed with this endoscopic procedure. medical equipment was checked for proper function. Hand hygiene and appropriate measures for infection prevention was taken. After the risks, benefits and alternatives of the procedure were thoroughly explained, Informed consent was verified, confirmed and timeout was successfully executed by the treatment team. The patient was anesthetized with topical anesthesia and the EC-[id number] (Pedi C) endoscope was introduced through the mouth and advanced to the proximal jejunum. Retroflexion was not performed The gastroscope was then slowly withdrawn and removed. S/p total gastrectomy some small amount of bleeding at esophagojejunal anastomosis -s/p cautery with gold porbe, 2 clips pllied, epinephrin 1:10,000 2 cc injected some blood in jejunum. ADVERSE EVENTS: There were no complications. IMPRESSIONS: 1. S/p total gastrectomy some small amount of bleeding at esophagojejunal anastomosis -s/p cautery with gold porbe, 2 clips pllied, epinephrin 1:10,000 2 cc injected some blood in jejunum 2. Retroflexion was not performed RECOMMENDATIONS: Ngt -keep clamped cta transfuse prn PATIENT CONDITION: stable DISPOSITION: Inpatient REPEAT EXAM: Return 3 days EGD Maddi King MD eSigned: Maddi King MD 12/13/2017 12:34 PM cc:
--- NOTE | 2017-12-13 12:54 | P.PNID ---
Subjective Remarks: Patient remains on the ventilator. Currently sedated on the ventilator. Afebrile. Receives blood transfusions. High-volume maroon stools Via rectal tube. Left-sided chest tube has decreased output. Peritoneum and pleural fluid culture has no growth. Cultures have no growth. White blood cell count still elevated. Reintubated 12/04 Antibiotics: Micafungin Zosyn Allergies/Adverse Reactions: Allergies No Known Allergies Allergy (Verified 11/22/17 02:38) Objective Vital Signs 12/12/17 14:00 12/12/17 15:58 12/12/17 16:00 Temperature 100.0 F H Pulse Rate 118 H 114 H Respiratory Rate 22 22 Blood Pressure Pulse Oximetry 98 100 12/12/17 17:00 12/12/17 17:15 12/12/17 17:30 Temperature Pulse Rate 124 H 132 H 129 H Respiratory Rate 23 Blood Pressure Pulse Oximetry 100 100 100 12/12/17 17:45 12/12/17 18:00 12/12/17 18:15 Temperature Pulse Rate 128 H 125 H 124 H Respiratory Rate Blood Pressure Pulse Oximetry 100 100 100 12/12/17 18:30 12/12/17 18:45 12/12/17 19:00 Temperature Pulse Rate 126 H 128 H 132 H Respiratory Rate Blood Pressure Pulse Oximetry 100 100 100 12/12/17 19:15 12/12/17 19:30 12/12/17 19:45 Temperature Pulse Rate 133 H 133 H 131 H Respiratory Rate Blood Pressure Pulse Oximetry 99 99 99 12/12/17 20:00 12/12/17 20:15 12/12/17 20:30 Temperature 98.9 F Pulse Rate 131 H 129 H 130 H Respiratory Rate 19 Blood Pressure Pulse Oximetry 99 100 100 12/12/17 20:45 12/12/17 21:00 12/12/17 21:01 Temperature Pulse Rate 128 H 126 H Respiratory Rate 18 Blood Pressure Pulse Oximetry 100 100 100 12/12/17 21:15 12/12/17 21:30 12/12/17 21:45 Temperature Pulse Rate 127 H 131 H 125 H Respiratory Rate Blood Pressure Pulse Oximetry 100 100 100 12/12/17 22:00 12/12/17 22:15 12/12/17 22:30 Temperature Pulse Rate 126 H 124 H 124 H Respiratory Rate 19 22 18 Blood Pressure Pulse Oximetry 100 100 100 12/12/17 22:45 12/12/17 23:00 12/12/17 23:15 Temperature Pulse Rate 123 H 123 H 124 H Respiratory Rate 18 19 21 Blood Pressure Pulse Oximetry 100 100 100 12/12/17 23:30 12/12/17 23:32 12/12/17 23:45 Temperature Pulse Rate 124 H 123 H Respiratory Rate 19 20 18 Blood Pressure Pulse Oximetry 100 100 100 12/13/17 00:00 12/13/17 00:15 12/13/17 00:30 Temperature 98.7 F Pulse Rate 123 H 124 H 123 H Respiratory Rate 20 19 21 Blood Pressure Pulse Oximetry 100 100 100 12/13/17 00:45 12/13/17 01:00 12/13/17 01:15 Temperature Pulse Rate 123 H 122 H 121 H Respiratory Rate 19 20 20 Blood Pressure Pulse Oximetry 100 100 100 12/13/17 01:30 12/13/17 01:45 12/13/17 02:00 Temperature Pulse Rate 100 H 103 H 106 H Respiratory Rate 18 20 20 Blood Pressure Pulse Oximetry 100 100 100 12/13/17 02:15 12/13/17 02:30 12/13/17 02:45 Temperature Pulse Rate 107 H 108 H 109 H Respiratory Rate 20 20 18 Blood Pressure Pulse Oximetry 100 100 100 12/13/17 03:00 12/13/17 03:15 12/13/17 03:30 Temperature Pulse Rate 113 H 112 H 113 H Respiratory Rate 21 19 21 Blood Pressure Pulse Oximetry 100 100 100 12/13/17 03:43 12/13/17 03:45 12/13/17 04:00 Temperature 98.4 F Pulse Rate 112 H 111 H Respiratory Rate 18 19 19 Blood Pressure Pulse Oximetry 100 100 100 12/13/17 04:15 12/13/17 04:51 12/13/17 05:00 Temperature 98.8 F 98.6 F Pulse Rate 114 H 114 H 112 H Respiratory Rate 20 18 18 Blood Pressure 157/68 H Pulse Oximetry 100 100 100 12/13/17 05:43 12/13/17 05:48 12/13/17 05:50 Temperature 98.7 F 99.0 F 99.1 F Pulse Rate 111 H 113 H 108 H Respiratory Rate 18 18 19 Blood Pressure Pulse Oximetry 100 100 100 12/13/17 06:00 12/13/17 07:25 12/13/17 08:24 Temperature 99.1 F Pulse Rate 109 H 106 H Respiratory Rate 20 20 Blood Pressure Pulse Oximetry 100 30 L 12/13/17 08:28 Temperature Pulse Rate 103 H Respiratory Rate 18 Blood Pressure Pulse Oximetry Intake & Output 12/12/17 12/13/17 12/13/17 18:59 06:59 18:59 Intake Total 1030 / 1030 2732.2588 / 2732.2588 560 / 560 Output Total 705 / 705 840 / 840 Balance 325 / 325 1892.2588 / 1892.2588 560 / 560 Weight 79.4 kg Intake: IV 850 / 850 2132.2588 / 2132.2588 160 / 160 Versed Inj 50 mg In 50 ml @ 2 50 / 50 50 / 50 MG/HR 2 mls/hr IV.CONT TITRATE PRN Rx#:[id number] Flexbumin 25% Inj 100 ML @ 60 100 / 100 mls/hr IV.SIG WITH DIALYSIS PRN Rx#:[id number] Calcium Gluconate Inj 1 GM In 110 / 110 D5W Inj 100 ML @ 110 mls/hr IV. SIG ONCE ONE Rx#:[id number] Intralipid 20% Inj 250 ML @ 31. 250 / 250 25 mls/hr IV.SIG Q24H COLE Rx#: [id number] Mycamine Inj 100 MG In NS Inj 100 / 100 100 ML @ 100 mls/hr IV.SIG Q24H COLE Rx#:[id number] Zosyn 2.25 GM Premix 50 ML @ 100 / 100 50 / 50 50 / 50 100 mls/hr IV.SIG Q8H COLE Rx#: [id number] Sodium Chloride 23.4% Inj 5.5 1532.2588 / 1532.2588 MEQ Sodium Acetate Inj 29.5 MEQ KCl Inj 20 MEQ Calcium Chloride Inj 4.5 MEQ MVI-12 Inj 10 ML Folvite Inj 1 MG In Clinimix 5%/D20W Inj 2,000 ML @ 65 mls/hr IV.SIG Q24H COLE Rx#: [id number] fentaNYL 10 mcg/mL Premix Drip 500 / 500 250 / 250 2,500 mcg In 250 ml @ 50 MCG/HR 5 mls/hr IV.SIG TITRATE PRN Rx #:[id number] Tube Feeding 0 / 0 Tube Irrigant 180 / 180 600 / 600 Intake (Blood Product) Amt 0 / 0 400 / 400 Rbc As-3 Leukoreduced Unit 0 / 0 [id number] Rbc As-3 Leukoreduced Unit 0 / 0 0 / 0 [id number] Rbc As-3 Leukoreduced Unit 400 / 400 [id number] Output: Urine 0 / 0 Stool 300 / 300 400 / 400 Wound Drainage 255 / 255 310 / 310 # 1 Right Abdomen 5 / 5 10 / 10 # 2 Right Abdomen 250 / 250 300 / 300 Chest Tube Drainage 150 / 150 130 / 130 #1 Left Pleural 150 / 150 130 / 130 Other: Date of Last Bowel Movement 12/11/17 12/13/17 12/11/17 07:40 Stool Stool Occult Blood (DEB) - Final Hemoccult positive 12/08/17 18:25 Fluid - Peritoneal fluid Gram Stain - Final 12/08/17 18:25 Fluid - Peritoneal fluid Body Fluid Culture - Final No growth in 72 hours (aerobically and anaerobically ) 12/07/17 10:10 Fluid - Pleural fluid Acid Fast Bacilli Smear - Final No acid fast bacilli seen 12/07/17 10:10 Fluid - Pleural fluid Mycobacterial Culture - Pending 12/07/17 10:10 Fluid - Pleural fluid Gram Stain - Final 12/07/17 10:10 Fluid - Pleural fluid Body Fluid Culture - Final No growth in 72 hours (aerobically and anaerobically ) Lab - Hematology Results 12/11/17 12/12/17 12/13/17 16:20 03:35 03:17 WBC 19.7 H 18.6 H RBC 2.38 L 1.77 L Hgb 7.7 L 7.5 L 5.5 L* D Hct 22.9 L 21.2 L 16.1 L* MCV 89.0 90.7 MCH 31.5 30.9 MCHC 35.4 34.0 RDW 15.2 15.0 Plt Count 344 302 MPV 10.0 9.7 Prelim Diff (Auto) Slide review pending Neut % (Auto) 72.4 H Lymph % (Auto) 7.7 L Vigo % (Auto) 17.0 H Eos % (Auto) 2.5 Baso % (Auto) 0.4 Neut # (Auto) 14.2 H Lymph # (Auto) 1.5 Vigo # (Auto) 3.3 H Eos # (Auto) 0.5 H Baso # (Auto) 0.1 WBC Differential Manual diff final Seg Neuts % (Manual) 54 Band Neuts % (Manual) 14 H Lymphocytes % (Manual) 11 Monocytes % (Manual) 7 Eosinophils % (Manual) 5 H Metamyelocytes % (Man) 3 H Myelocytes % (Man) 6 H Abs Neuts (Manual) 15.2 H Nucleated RBCs/100 WBC 3 H Differential Comment . Platelet Estimate Normal Platelet Morphology Enlarged H Haptoglobin 12/13/17 12/13/17 10:10 10:10 WBC RBC Hgb 9.6 L D Hct 28.4 L MCV MCH MCHC RDW Plt Count MPV Prelim Diff (Auto) Neut % (Auto) Lymph % (Auto) Vigo % (Auto) Eos % (Auto) Baso % (Auto) Neut # (Auto) Lymph # (Auto) Vigo # (Auto) Eos # (Auto) Baso # (Auto) WBC Differential Seg Neuts % (Manual) Band Neuts % (Manual) Lymphocytes % (Manual) Monocytes % (Manual) Eosinophils % (Manual) Metamyelocytes % (Man) Myelocytes % (Man) Abs Neuts (Manual) Nucleated RBCs/100 WBC Differential Comment Platelet Estimate Platelet Morphology Haptoglobin 290 H Lab - Chemistry Results 12/11/17 12/11/17 12/12/17 17:29 20:41 01:10 Sodium Potassium Chloride Carbon Dioxide Anion Gap BUN Creatinine Estimated GFR POC Glucose 115 H 140 H 131 H Random Glucose Calcium Phosphorus Total Bilirubin AST ALT Alkaline Phosphatase Ammonia Lactate Dehydrogenase Total Protein Albumin 12/12/17 12/12/17 12/12/17 03:35 07:42 12:03 Sodium 135 L Potassium 5.0 Chloride 96 L Carbon Dioxide 23.8 Anion Gap 15 BUN 122 H Creatinine 7.32 H Estimated GFR 10 L POC Glucose 151 H 134 H Random Glucose 131 H Calcium 8.2 L Phosphorus 8.3 H D Total Bilirubin AST ALT Alkaline Phosphatase Ammonia Lactate Dehydrogenase Total Protein Albumin 1.4 L 12/12/17 12/12/17 12/12/17 17:32 20:00 21:35 Sodium Potassium Chloride Carbon Dioxide Anion Gap BUN Creatinine Estimated GFR POC Glucose 132 H 151 H Random Glucose Calcium Phosphorus Total Bilirubin AST ALT Alkaline Phosphatase Ammonia 23 Lactate Dehydrogenase Total Protein Albumin 12/13/17 12/13/17 12/13/17 01:12 03:17 08:14 Sodium 139 Potassium 4.3 Chloride 98 Carbon Dioxide 25.8 Anion Gap 15 BUN 90 H Creatinine 5.77 H Estimated GFR 13 L POC Glucose 181 H 162 H Random Glucose 160 H Calcium 8.0 L Phosphorus Total Bilirubin 1.4 H AST 102 H ALT 133 H Alkaline Phosphatase 221 H Ammonia Lactate Dehydrogenase Total Protein 5.9 L Albumin 1.8 L 12/13/17 10:10 Sodium Potassium Chloride Carbon Dioxide Anion Gap BUN Creatinine Estimated GFR POC Glucose Random Glucose Calcium Phosphorus Total Bilirubin AST ALT Alkaline Phosphatase Ammonia Lactate Dehydrogenase 443 H Total Protein Albumin Imaging: ITS Impressions Head MRI 12/03/17 00:00 CONCLUSION: 1. Minimal nonspecific periventricular white matter changes. 2. No restricted diffusion to suggest an acute ischemic event. 3. No evidence for significant ischemic changes. Chest CT 12/04/17 00:06 CONCLUSION: 1. Left greater than right pleural effusions and basilar atelectasis. 2. No hemorrhage or hematoma demonstrated. 3. Distended and fluid-filled esophagus. No wall thickening. Patient is status post gastrectomy. Nasogastric tube is at the GE junction. 4. Body wall edema/anasarca. Abdomen X-Ray 12/08/17 00:00 CONCLUSION: 1. 2 left-sided abdominal catheters. 2. Nonspecific bowel gas pattern. GI Bleed Scan Nuclear Medicine 12/11/17 00:00 CONCLUSION: 1. Negative examination with no evidence of acute GI bleeding. Abdomen/Pelvis CT 12/12/17 00:00 CONCLUSION: Postoperative abdomen appearance. Chest X-Ray 12/13/17 06:00 CONCLUSION: Improving aeration Physical Exam: PHYSICAL EXAMINATION: GENERAL: Patient on the vent. Sedated. HEENT: Unable to fully assess. Mucosa is moist. NECK: Supple without adenopathy or swelling. LUNGS: Decreased breath sounds. Left chest tube has serous drainage. HEART: Regular S1, S2. No audible murmur. ABDOMEN: Positive bowel sounds. ZAINAB drains x exits the RLQ abdomen and has serosanguineous drainage EXTREMITIES: No clubbing or cyanosis. Both upper extremities has edema. SKIN: No diffuse rash. NEUROLOGIC: unable to assess, intubated. PSYCHIATRIC: Unable to assess. Assessment and Plan - Plan IMPRESSION: 1. Candidemia following gastric perforation and gastric ischemia. Blood culture at [facility] in [place] on 11/26 had Starr glabrata. Repeat blood culture is negative. 2. Status post abdominal surgery. 3. Acute respiratory failure. left pleural effusion. 4. Aspiration. 5. Acute kidney disease. 5. Recent cardiac arrest. 6. Leukocytosis. White blood cell count remains elevated. abx associated diarrhea, bowel wall thickening c.diff neg. RECOMMENDATIONS: 1. Continue micafungin for candidemia. 2. Continue piperacillin/tazobactam. 3. Continue to monitor white blood cell count. 4 Monitor temperature.
[2017-12-13] MEDS ORDERED: Midazolam 50 MG/50 ML Inj 50 MG/50 ML BAG IV.CONT PRN (13:09)
--- NOTE | 2017-12-13 13:14 | P.PCN ---
Date of procedure: 12/13/17 Pre-op diagnosis: Need for central access Post-op diagnosis: same Procedure: US guided LIJ central line Central line checklist completed, timeout completed. Existing left IJ central line was accidentally pulled out after colonoscopy. Patient is on TPN and has no other access and needs emergency central access. I wore a surgical cap, mask with protective eyewear, full gown and sterile gloves throughout the procedure. LIJ region was prepped using chlorhexidine scrub and draped in sterile fashion. The left IJ was identified using the ultrasound. Anesthesia was achieved over the vein using 1% lidocaine. The introducer needle was inserted into the left internal jugular vein under direct ultrasound visualization. Venous blood was withdrawn. The syringe was removed and a guidewire was advanced into the introducer needle. A small incision was made at the skin surface with a scalpel and the introducer needle was exchanged for a dilator over the guidewire. After appropriate dilation was obtained, the dilator was exchanged over the wire for a triple lumen, 7F, antibiotic coated central venous catheter. The wire was removed and the catheter was secured in place with a StatLock at 18 cm. A sterile central line dressing was placed over the catheter at the insertion site. The patient tolerated the procedure without any hemodynamic compromise. At time of procedure completion, all ports aspirated and flushed properly. Post-procedure chest x-ray is pending at this time. Anesthesia: local Surgeon: Kaitlynn Bacon Estimated blood loss (mL): 1 Condition: critical Disposition: ICU
--- NOTE | 2017-12-13 13:37 | P.PNGS ---
Subjective Interval history: Intubated Large amount of maroon stool in rectal bag and flowing around rectal bag SVETLANA Guidry and Sandra at bedside Physical Exam Vital signs: Vital Signs 12/12/17 14:00 12/12/17 15:58 12/12/17 16:00 Temperature 100.0 F H Pulse Rate 118 H 114 H Respiratory Rate 22 22 Blood Pressure Pulse Oximetry 98 100 12/12/17 17:00 12/12/17 17:15 12/12/17 17:30 Temperature Pulse Rate 124 H 132 H 129 H Respiratory Rate 23 Blood Pressure Pulse Oximetry 100 100 100 12/12/17 17:45 12/12/17 18:00 12/12/17 18:15 Temperature Pulse Rate 128 H 125 H 124 H Respiratory Rate Blood Pressure Pulse Oximetry 100 100 100 12/12/17 18:30 12/12/17 18:45 12/12/17 19:00 Temperature Pulse Rate 126 H 128 H 132 H Respiratory Rate Blood Pressure Pulse Oximetry 100 100 100 12/12/17 19:15 12/12/17 19:30 12/12/17 19:45 Temperature Pulse Rate 133 H 133 H 131 H Respiratory Rate Blood Pressure Pulse Oximetry 99 99 99 12/12/17 20:00 12/12/17 20:15 12/12/17 20:30 Temperature 98.9 F Pulse Rate 131 H 129 H 130 H Respiratory Rate 19 Blood Pressure Pulse Oximetry 99 100 100 12/12/17 20:45 12/12/17 21:00 12/12/17 21:01 Temperature Pulse Rate 128 H 126 H Respiratory Rate 18 Blood Pressure Pulse Oximetry 100 100 100 12/12/17 21:15 12/12/17 21:30 12/12/17 21:45 Temperature Pulse Rate 127 H 131 H 125 H Respiratory Rate Blood Pressure Pulse Oximetry 100 100 100 12/12/17 22:00 12/12/17 22:15 12/12/17 22:30 Temperature Pulse Rate 126 H 124 H 124 H Respiratory Rate 19 22 18 Blood Pressure Pulse Oximetry 100 100 100 12/12/17 22:45 12/12/17 23:00 12/12/17 23:15 Temperature Pulse Rate 123 H 123 H 124 H Respiratory Rate 18 19 21 Blood Pressure Pulse Oximetry 100 100 100 12/12/17 23:30 12/12/17 23:32 12/12/17 23:45 Temperature Pulse Rate 124 H 123 H Respiratory Rate 19 20 18 Blood Pressure Pulse Oximetry 100 100 100 12/13/17 00:00 12/13/17 00:15 12/13/17 00:30 Temperature 98.7 F Pulse Rate 123 H 124 H 123 H Respiratory Rate 20 19 21 Blood Pressure Pulse Oximetry 100 100 100 12/13/17 00:45 12/13/17 01:00 12/13/17 01:15 Temperature Pulse Rate 123 H 122 H 121 H Respiratory Rate 19 20 20 Blood Pressure Pulse Oximetry 100 100 100 12/13/17 01:30 12/13/17 01:45 12/13/17 02:00 Temperature Pulse Rate 100 H 103 H 106 H Respiratory Rate 18 20 20 Blood Pressure Pulse Oximetry 100 100 100 12/13/17 02:15 12/13/17 02:30 12/13/17 02:45 Temperature Pulse Rate 107 H 108 H 109 H Respiratory Rate 20 20 18 Blood Pressure Pulse Oximetry 100 100 100 12/13/17 03:00 12/13/17 03:15 12/13/17 03:30 Temperature Pulse Rate 113 H 112 H 113 H Respiratory Rate 21 19 21 Blood Pressure Pulse Oximetry 100 100 100 12/13/17 03:43 12/13/17 03:45 12/13/17 04:00 Temperature 98.4 F Pulse Rate 112 H 111 H Respiratory Rate 18 19 19 Blood Pressure Pulse Oximetry 100 100 100 12/13/17 04:15 12/13/17 04:30 12/13/17 04:45 Temperature Pulse Rate 114 H 113 H 112 H Respiratory Rate 20 20 19 Blood Pressure Pulse Oximetry 100 100 100 12/13/17 04:51 12/13/17 05:00 12/13/17 05:15 Temperature 98.8 F 98.6 F Pulse Rate 114 H 112 H 111 H Respiratory Rate 18 19 20 Blood Pressure 157/68 H Pulse Oximetry 100 100 100 12/13/17 05:30 12/13/17 05:43 12/13/17 05:45 Temperature 98.7 F Pulse Rate 113 H 111 H 111 H Respiratory Rate 20 18 19 Blood Pressure Pulse Oximetry 100 100 100 12/13/17 05:48 12/13/17 05:50 12/13/17 06:00 Temperature 99.0 F 99.1 F Pulse Rate 113 H 108 H 114 H Respiratory Rate 18 19 18 Blood Pressure Pulse Oximetry 100 100 100 12/13/17 06:15 12/13/17 06:30 12/13/17 06:45 Temperature Pulse Rate 109 H 110 H 109 H Respiratory Rate 30 H 32 H 34 H Blood Pressure Pulse Oximetry 100 100 100 12/13/17 07:00 12/13/17 07:15 12/13/17 07:25 Temperature 99.1 F Pulse Rate 109 H 107 H 106 H Respiratory Rate 40 H 30 H 20 Blood Pressure Pulse Oximetry 100 100 100 12/13/17 07:30 12/13/17 07:45 12/13/17 08:00 Temperature Pulse Rate 107 H 105 H 102 H Respiratory Rate 37 H 42 H 39 H Blood Pressure Pulse Oximetry 100 100 100 12/13/17 08:15 12/13/17 08:24 12/13/17 08:28 Temperature Pulse Rate 104 H 103 H Respiratory Rate 43 H 20 18 Blood Pressure Pulse Oximetry 100 30 L 12/13/17 08:30 12/13/17 08:45 12/13/17 09:00 Temperature Pulse Rate 106 H 116 H 121 H Respiratory Rate 43 H 46 H 52 H Blood Pressure Pulse Oximetry 99 98 98 12/13/17 09:15 12/13/17 09:30 12/13/17 09:45 Temperature Pulse Rate 123 H 124 H 118 H Respiratory Rate 41 H 28 H 37 H Blood Pressure Pulse Oximetry 98 99 98 12/13/17 10:00 12/13/17 10:15 12/13/17 10:30 Temperature Pulse Rate 115 H 115 H 114 H Respiratory Rate 23 26 H 36 H Blood Pressure Pulse Oximetry 98 98 98 12/13/17 10:45 12/13/17 11:00 12/13/17 11:15 Temperature Pulse Rate 113 H 111 H 111 H Respiratory Rate 28 H 29 H 28 H Blood Pressure Pulse Oximetry 98 98 98 12/13/17 11:30 12/13/17 11:45 12/13/17 12:00 Temperature Pulse Rate 109 H 109 H 118 H Respiratory Rate 33 H 43 H 33 H Blood Pressure Pulse Oximetry 98 99 96 12/13/17 12:15 12/13/17 12:30 12/13/17 12:45 Temperature Pulse Rate 97 H 93 H 97 H Respiratory Rate 43 H 33 H 38 H Blood Pressure Pulse Oximetry 100 100 100 12/13/17 13:00 12/13/17 13:15 Temperature Pulse Rate 99 H 99 H Respiratory Rate 37 H 31 H Blood Pressure Pulse Oximetry 100 100 Intake & Output 12/12/17 12/13/17 12/13/17 18:59 06:59 18:59 Intake Total 1030 / 1030 2732.2588 / 2732.2588 560 / 560 Output Total 705 / 705 840 / 840 Balance 325 / 325 1892.2588 / 1892.2588 560 / 560 Weight 79.4 kg Intake: IV 850 / 850 2132.2588 / 2132.2588 160 / 160 Versed Inj 50 mg In 50 ml @ 2 50 / 50 50 / 50 MG/HR 2 mls/hr IV.CONT TITRATE PRN Rx#:[id number] Flexbumin 25% Inj 100 ML @ 60 100 / 100 mls/hr IV.SIG WITH DIALYSIS PRN Rx#:[id number] Calcium Gluconate Inj 1 GM In 110 / 110 D5W Inj 100 ML @ 110 mls/hr IV. SIG ONCE ONE Rx#:[id number] Intralipid 20% Inj 250 ML @ 31. 250 / 250 25 mls/hr IV.SIG Q24H COLE Rx#: [id number] Mycamine Inj 100 MG In NS Inj 100 / 100 100 ML @ 100 mls/hr IV.SIG Q24H COLE Rx#:[id number] Zosyn 2.25 GM Premix 50 ML @ 100 / 100 50 / 50 50 / 50 100 mls/hr IV.SIG Q8H COLE Rx#: [id number] Sodium Chloride 23.4% Inj 5.5 1532.2588 / 1532.2588 MEQ Sodium Acetate Inj 29.5 MEQ KCl Inj 20 MEQ Calcium Chloride Inj 4.5 MEQ MVI-12 Inj 10 ML Folvite Inj 1 MG In Clinimix 5%/D20W Inj 2,000 ML @ 65 mls/hr IV.SIG Q24H COLE Rx#: [id number] fentaNYL 10 mcg/mL Premix Drip 500 / 500 250 / 250 2,500 mcg In 250 ml @ 50 MCG/HR 5 mls/hr IV.SIG TITRATE PRN Rx #:[id number] Tube Feeding 0 / 0 Tube Irrigant 180 / 180 600 / 600 Intake (Blood Product) Amt 0 / 0 400 / 400 Rbc As-3 Leukoreduced Unit 0 / 0 [id number] Rbc As-3 Leukoreduced Unit 0 / 0 0 / 0 [id number] Rbc As-3 Leukoreduced Unit 400 / 400 [id number] Output: Urine 0 / 0 Stool 300 / 300 400 / 400 Wound Drainage 255 / 255 310 / 310 # 1 Right Abdomen 5 / 5 10 10 # 2 Right Abdomen 250 / 250 300 / 300 Chest Tube Drainage 150 / 150 130 / 130 #1 Left Pleural 150 / 150 130 / 130 Other: Date of Last Bowel Movement 12/11/17 12/13/17 12/13/17 Narrative: Eyes open Abd: distended; tender; midline incision with granulated tissue--no exudate; JP1 with no drainage; JP2 with serosanguineous drainage Rectal tube and in bed with maroon colored stool in clots BUE with edema - Urinary Catheter Management Indwelling Temp Sensing Catheter Cath placed during this visit: no Results - Labs 12/13/17 10:10 12/13/17 03:17 Laboratory Results - last 24 hr 12/04/17 12/11/17 12/12/17 10:46 08:25 17:32 WBC RBC Hgb Hct MCV MCH MCHC RDW Plt Count MPV Haptoglobin PT INR APTT Fibrinogen Sodium Potassium Chloride Carbon Dioxide Anion Gap BUN Creatinine Estimated GFR POC Glucose 132 H Random Glucose Calcium Total Bilirubin AST ALT Alkaline Phosphatase Ammonia Lactate Dehydrogenase Total Protein Albumin MTS Gel Crossmatch See Detail See Detail 12/12/17 12/12/17 12/13/17 20:00 21:35 01:12 WBC RBC Hgb Hct MCV MCH MCHC RDW Plt Count MPV Haptoglobin PT INR APTT Fibrinogen Sodium Potassium Chloride Carbon Dioxide Anion Gap BUN Creatinine Estimated GFR POC Glucose 151 H 181 H Random Glucose Calcium Total Bilirubin AST ALT Alkaline Phosphatase Ammonia 23 Lactate Dehydrogenase Total Protein Albumin MTS Gel Crossmatch 12/13/17 12/13/17 12/13/17 03:17 03:17 04:10 WBC 18.6 H RBC 1.77 L Hgb 5.5 L* D Hct 16.1 L* MCV 90.7 MCH 30.9 MCHC 34.0 RDW 15.0 Plt Count 302 MPV 9.7 Haptoglobin PT INR APTT Fibrinogen Sodium 139 Potassium 4.3 Chloride 98 Carbon Dioxide 25.8 Anion Gap 15 BUN 90 H Creatinine 5.77 H Estimated GFR 13 L POC Glucose Random Glucose 160 H Calcium 8.0 L Total Bilirubin 1.4 H AST 102 H ALT 133 H Alkaline Phosphatase 221 H Ammonia Lactate Dehydrogenase Total Protein 5.9 L Albumin 1.8 L MTS Gel Crossmatch See Detail 12/13/17 12/13/17 12/13/17 08:14 10:10 10:10 WBC RBC Hgb Hct MCV MCH MCHC RDW Plt Count MPV Haptoglobin 290 H PT 10.4 INR 1.0 APTT 30.7 Fibrinogen 606 H Sodium Potassium Chloride Carbon Dioxide Anion Gap BUN Creatinine Estimated GFR POC Glucose 162 H Random Glucose Calcium Total Bilirubin AST ALT Alkaline Phosphatase Ammonia Lactate Dehydrogenase 443 H Total Protein Albumin MTS Gel Crossmatch 12/13/17 12/13/17 10:10 12:51 WBC RBC Hgb 9.6 L D Hct 28.4 L MCV MCH MCHC RDW Plt Count MPV Haptoglobin PT INR APTT Fibrinogen Sodium Potassium Chloride Carbon Dioxide Anion Gap BUN Creatinine Estimated GFR POC Glucose 182 H Random Glucose Calcium Total Bilirubin AST ALT Alkaline Phosphatase Ammonia Lactate Dehydrogenase Total Protein Albumin MTS Gel Crossmatch - Imaging Imaging: ITS Impressions Head MRI 12/03/17 00:00 CONCLUSION: 1. Minimal nonspecific periventricular white matter changes. 2. No restricted diffusion to suggest an acute ischemic event. 3. No evidence for significant ischemic changes. Chest CT 12/04/17 00:06 CONCLUSION: 1. Left greater than right pleural effusions and basilar atelectasis. 2. No hemorrhage or hematoma demonstrated. 3. Distended and fluid-filled esophagus. No wall thickening. Patient is status post gastrectomy. Nasogastric tube is at the GE junction. 4. Body wall edema/anasarca. Abdomen X-Ray 12/08/17 00:00 CONCLUSION: 1. 2 left-sided abdominal catheters. 2. Nonspecific bowel gas pattern. GI Bleed Scan Nuclear Medicine 12/11/17 00:00 CONCLUSION: 1. Negative examination with no evidence of acute GI bleeding. Abdomen/Pelvis CT 12/12/17 00:00 CONCLUSION: Postoperative abdomen appearance. Chest X-Ray 12/13/17 06:00 CONCLUSION: Improving aeration Assessment and Plan - Assessment (1) Gastric perforation Code(s): K25.5 - Chronic or unspecified gastric ulcer with perforation Status : Resolved Plan: 47yo male s/p Exlap and gastrectomy for gastric perforation, s/p esoph[facility]jun[facility] at [facility] -Intubated---vent per CCM; if no improvements will likely need tracheostomy tube placed early next week -GI following---Plan for EGD and colonoscopy; transfusing 3 units PRBCs; starting Protonix drip -Continue to monitor -Discussed in detail with Dr. Bacon, Silvina COOK and RNs Pham - Plan I personally evaluated the patient in room 1313. His abdomen is more distended today. He has had more maroon stools. GI is planning colonoscopy today. Additionally have discussed his case with Dr. Bacon and recommended CT of the abdomen with oral contrast through the nasogastric and feeding jejunostomy tubes. I discussed his condition with his family at the bedside. The exam, history, and the medical decision-making described in the above note were completed with the assistance of the mid-level provider. I reviewed and agree with the findings presented. I attest that I had a [id number] encounter with the patient on the same day, and personally performed and documented my assessment and findings in the medical record.
[2017-12-13] MEDS ORDERED: Diatrizoate Meglum/Diatrizoate Sod Liq 9 ML UDC PO ONE (13:45)
--- NOTE | 2017-12-13 13:59 | OTSOAPIP ---
TIME SESSION COMPLETED: 930 TREATMENT TIME: 0 MINS. CHART REVIEWED. INTERDISCIPLINARY COMMUNICATION: NURSING REQUESTED TO HOLD OCCUPATIONAL THERAPY ASSESSMENT SECONDARY TO PATIENT CURRENT LEVEL OF GI BLEED, CRITICALLY LOW H/H 5.5/16.1, COLONOSCOPY PENDING. PLAN : WILL ATTEMPT TO FOLLOW UP TOMORROW FOR ASSESSMENT ABLE. Therapist: Olya Flynn Signature on file
[2017-12-13] MEDS: Propofol 1000 mg/100 ml Inj 1,000 MG/100 ML BOTTLE IV.CONT PRN ×2 (14:00→20:12)
--- NOTE | 2017-12-13 14:20 | XR ---
EXAM DATE: 12/13/2017 2:14 PM EST AGE/SEX: 47 years / Male INDICATIONS: Left intrajugular line placement. CLINICAL DATA: This is the patient's initial encounter. Patient reports that signs and symptoms have been present for 3 days and indicates a pain score of Nonresponsive. MEDICAL/SURGICAL HISTORY: . perforated bowel . gastrectomy bowel resection COMPARISON: C, CHEST 1V SINGLE AP, 12/11/2017. . FINDINGS: Lines and tubes have not changed. Minimal left lung base possibly infiltrate is present. CONCLUSION: Slight left lung base atelectasis and/or infiltrate is seen. Electronically signed by: Myron Burnham MD 12/13/2017 2:19 PM EST
--- NOTE | 2017-12-13 16:29 | CT ---
EXAM DATE: 12/13/2017 3:48 PM EST AGE/SEX: 47 years / Male INDICATIONS: Bloody stool in rectal bag. CLINICAL DATA: This is the patient's initial encounter. Patient reports that signs and symptoms have been present for 1 day and indicates a pain score of Nonresponsive. MEDICAL/SURGICAL HISTORY: Renal failure, acute. Bowel obstruction, abdominal compartment syndro me. . Total gastrectomy. ORAL CONTRAST: Prescribed oral contrast ingested. RADIATION DOSE: 11.62 CTDI (mGy) COMPARISON: [facility] [place] ABDOMEN & PELVIS W/O CONTRAST, 12/12/2017. . TECHNIQUE: Multiple contiguous axial images were obtained through the abdomen and pelvis following b olus infusion of 96 ml Omnipaque 350 (iohexol) nonionic water-soluble contrast as a single exam dos e. Prescribed oral contrast ingested. Using automated exposure control and adjustment of the mA and/ or kV according to patient size, radiation dose was kept as low as reasonably achievable to obtain op timal diagnostic quality images. DICOM format image data is available electronically for review and comparison. FINDINGS: Lower Lungs: Prominent area of left lower lobe pulmonary consolidation and small left pleural effusio n. Centrilobular nodularity of the posterior right lower lobe along with small area of atelectasis/co nsolidation at the dependent portion of the right lower lobe. Liver: The liver has a homogeneous density without space-occupying lesion. There is no dilation of th e biliary tree. Spleen: Homogeneous density without enlargement. Pancreas: Unremarkable without mass or calcification. Kidneys: Normal in size and shape. No evidence of mass or hydronephrosis. Adrenal Glands: Unremarkable. Aorta: The aorta and proximal iliac vessels are grossly unremarkable without aneurysmal dilation. Bowel/Mesentery: Prominent proximal small bowel dilatation measuring up to 5.5 cm in diameter. Lavinia l diameter of the distal small bowel. No discrete transition point identified. There is contrast in t he distal small bowel and in the colon. Surgical drains remain in place. Jejunostomy tube also remain s in place. There is evidence of moderate free fluid in the left upper quadrant of the abdomen. There is a rounded focal area of fluid in the left upper quadrant immediately anterior to the tail of the pancreas with thin peripheral enhancement. This is just inferior to the area of surgical drains. No e vidence of free air. Appendix not identified. Abdominal Wall: Intact. Retroperitoneum: No evidence of adenopathy in the retrocrural, para-aortic, or deep pelvic regions. Bladder: Contours are smooth. Reproductive Organs: Unremarkable. Labrum and lower Inguinal: The inguinal region is unremarkable without evidence of adenopathy. Bony Structures: Bridging osteophytes at the sacroiliac joints. CONCLUSION: 1. New proximal small bowel dilatation. No discrete transition point. Contrast is seen in the distal small bowel. Findings may represent ileus or partial obstruction. 2. Postsurgical findings with surgical drains in the left upper quadrant. Free fluid is seen in the left upper quadrant. Loculated rounded 5 cm area of fluid with thin peripheral enhancement also noted just inferior to the surgical drains. 3. Prominent left lower lobe pulmonary consolidation and small left pleural effusion. Electronically signed by: Zheng Beth MD 12/13/2017 4:28 PM EST
[2017-12-13 20:06] LABS: Hematocrit 25.7 % (39.0-51.0); Hemoglobin 8.7 gm/dL (13.0-17.0); Mean Corpuscular HGB Conc 33.9 % (32.0-36.0); Mean Corpuscular Hemoglobin 29.5 pg (27.0-34.0); Mean Platelet Volume 9.9 fL (7.0-11.0); Platelet Count 261 th/mm3 (150-450); Red Blood Count 2.95 mil/mm3 (4.50-5.90); White Blood Count 22.4 th/mm3 (4.0-11.0)
[2017-12-13] MEDS: Pantoprazole Inj 80 MG in Sodium Chlor 0.9% Inj 100 ML IV.CONT SCH (20:12)
[2017-12-13 23:45] LABS: Hematocrit 24.4 % (39.0-51.0)
[2017-12-14] MEDS: Labetalol HCl Inj 100 MG/20 ML Vial IV.PUSH PRN ×2 (01:37→05:45)
[2017-12-14] MEDS: Insulin NovoLOG Aspart Correctional Sugar Inj SQ SCH ×6 (01:38→19:54)
[2017-12-14 01:44] LABS: Hematocrit 24.4 % (39.0-51.0); Hemoglobin 8.4 gm/dL (13.0-17.0)
[2017-12-14 01:46] LABS: Hemoglobin 8.4 gm/dL (13.0-17.0)
[2017-12-14] MEDS: Propofol 1000 mg/100 ml Inj 1,000 MG/100 ML BOTTLE IV.CONT PRN ×3 (03:08→23:00)
[2017-12-14] MEDS: Oral Hygiene Kit OROPHARYNG SCH ×3 (03:52→17:05)
--- NOTE | 2017-12-14 04:38 | XR ---
EXAM DATE: 12/14/2017 4:23 AM EST AGE/SEX: 47 years / Male INDICATIONS: Respiratory disease. CLINICAL DATA: This is the patient's subsequent encounter. Patient reports that signs and symptoms h ave been present for 3 weeks and indicates a pain score of Nonresponsive. MEDICAL/SURGICAL HISTORY: . Renal failure, acute. Cardiac arrest, aspiration pneumonia . Marlin rectomy, [facility]. COMPARISON: C, CHEST 1V SINGLE AP, 12/13/2017. . FINDINGS: 2 frontal views of the chest show an endotracheal tube with the tip 2 cm from the [place]. Bilateral c entral lines. Nasogastric tube tip within the lower thoracic esophagus. An area consolidation within the left lower lobe is more pronounced. Right lung is clear. Heart is normal in size. CONCLUSION: Worsening consolidation within the left lung base with possible small pleural fluid component. Electronically signed by: Jason Branch MD 12/14/2017 4:37 AM EST
[2017-12-14] MEDS: Piperacil/Tazo 2.25 GM Premix 50 ML IV.SIG SCH ×3 (05:03→21:35)
[2017-12-14 05:29] LABS: Hemoglobin 7.9 gm/dL (13.0-17.0); Mean Corpuscular HGB Conc 34.4 % (32.0-36.0); Mean Corpuscular Hemoglobin 30.4 pg (27.0-34.0); Mean Corpuscular Volume 88.4 fL (80.0-100.0); Mean Platelet Volume 9.3 fL (7.0-11.0); Platelet Count 244 th/mm3 (150-450); Red Cell Distribution Width 16.3 % (11.6-17.2); White Blood Count 21.2 th/mm3 (4.0-11.0)
[2017-12-14] MEDS: Pantoprazole Inj 80 MG in Sodium Chlor 0.9% Inj 100 ML IV.CONT SCH ×2 (05:29→15:26)
[2017-12-14 05:56] LABS: Alanine Aminotransferase 130 U/L (12-78); Albumin 1.7 g/dL (3.4-5.0); Alkaline Phosphatase 232 U/L (45-117); Anion Gap 17 meq/L (5-15); Aspartate Aminotransferase 118 U/L (15-37); Blood Urea Nitrogen 119 mg/dL (7-18); Calcium 8.6 mg/dL (8.5-10.1); Carbon Dioxide 22.4 meq/L (21.0-32.0); Chloride 95 meq/L (98-107); Glomerular Filtration Rate 10 mL/min (>89); Glucose,Random 136 mg/dL (74-106); Potassium 4.6 meq/L (3.5-5.1); Sodium 134 meq/L (136-145)
[2017-12-14] MEDS: fentaNYL 10 mcg/mL Premix Drip 2,500 MCG/250 ML BAG IV.SIG PRN ×2 (07:07→21:35)
--- NOTE | 2017-12-14 08:31 | P.PNGS ---
Subjective Patient reports: other (Referral consult. Consideration for prescription orders per Dr. Bacon. Patient had less output through his rectal bag overnight. He was hemodynamically stable. Tube feeds were restarted.) Physical Exam Vital signs: Vital Signs 12/13/17 08:30 12/13/17 08:45 12/13/17 09:00 Temperature Pulse Rate 106 H 116 H 121 H Respiratory Rate 43 H 46 H 52 H Blood Pressure Pulse Oximetry 99 98 98 12/13/17 09:15 12/13/17 09:30 12/13/17 09:45 Temperature Pulse Rate 123 H 124 H 118 H Respiratory Rate 41 H 28 H 37 H Blood Pressure Pulse Oximetry 98 99 98 12/13/17 10:00 12/13/17 10:15 12/13/17 10:30 Temperature Pulse Rate 115 H 115 H 114 H Respiratory Rate 23 26 H 36 H Blood Pressure Pulse Oximetry 98 98 98 12/13/17 10:45 12/13/17 11:00 12/13/17 11:15 Temperature Pulse Rate 113 H 111 H 111 H Respiratory Rate 28 H 29 H 28 H Blood Pressure Pulse Oximetry 98 98 98 12/13/17 11:30 12/13/17 11:45 12/13/17 12:00 Temperature Pulse Rate 109 H 109 H 103 H Respiratory Rate 33 H 43 H 33 H Blood Pressure Pulse Oximetry 98 99 96 12/13/17 12:15 12/13/17 12:30 12/13/17 12:45 Temperature Pulse Rate 97 H 93 H 97 H Respiratory Rate 43 H 33 H 38 H Blood Pressure Pulse Oximetry 100 100 100 12/13/17 13:00 12/13/17 13:15 12/13/17 13:30 Temperature 98.7 F Pulse Rate 99 H 99 H 101 H Respiratory Rate 37 H 31 H 35 H Blood Pressure Pulse Oximetry 100 100 100 12/13/17 13:45 12/13/17 14:00 12/13/17 14:15 Temperature Pulse Rate 103 H 102 H 110 H Respiratory Rate 38 H 36 H 31 H Blood Pressure Pulse Oximetry 100 100 100 12/13/17 14:30 12/13/17 14:45 12/13/17 15:00 Temperature Pulse Rate 115 H 108 H 112 H Respiratory Rate 25 H 29 H 22 Blood Pressure Pulse Oximetry 100 100 100 12/13/17 15:15 12/13/17 15:30 12/13/17 15:45 Temperature Pulse Rate 110 H 110 H 105 H Respiratory Rate 23 18 27 H Blood Pressure Pulse Oximetry 99 100 100 12/13/17 16:00 12/13/17 16:15 12/13/17 16:28 Temperature Pulse Rate 113 H 110 H Respiratory Rate 33 H 30 H 19 Blood Pressure Pulse Oximetry 100 100 100 12/13/17 16:30 12/13/17 18:00 12/13/17 19:00 Temperature 97.1 F L Pulse Rate 103 H 103 H 102 H Respiratory Rate 25 H 24 Blood Pressure Pulse Oximetry 100 99 12/13/17 20:00 12/13/17 20:18 12/13/17 21:00 Temperature 99.1 F Pulse Rate 97 H 99 H 100 H Respiratory Rate 21 20 20 Blood Pressure 163/68 H Pulse Oximetry 100 100 12/13/17 22:00 12/13/17 23:00 12/13/17 23:34 Temperature Pulse Rate 100 H 103 H Respiratory Rate 22 20 20 Blood Pressure Pulse Oximetry 100 100 100 12/14/17 00:00 12/14/17 01:00 12/14/17 02:00 Temperature 99.4 F Pulse Rate 102 H 105 H 94 H Respiratory Rate 20 21 21 Blood Pressure 163/65 H Pulse Oximetry 100 100 100 12/14/17 03:00 12/14/17 03:48 12/14/17 04:00 Temperature 99.2 F Pulse Rate 96 H 98 H 97 H Respiratory Rate 21 20 22 Blood Pressure 159/61 H Pulse Oximetry 100 100 100 12/14/17 05:00 12/14/17 06:00 12/14/17 08:15 Temperature Pulse Rate 96 H 88 93 H Respiratory Rate 21 22 19 Blood Pressure Pulse Oximetry 100 100 100 Intake & Output 12/13/17 12/14/17 12/14/17 18:59 06:59 18:59 Intake Total 1295 / 1295 2451 / 2451 250 / 250 Output Total 1974 910 / 910 Balance -680 / -680 1541 / 1541 250 / 250 Weight 84.2 kg Intake: IV 685 / 685 2379 / 2379 250 / 250 Versed Inj 50 mg In 50 ml @ 2 50 / 50 MG/HR 2 mls/hr IV.CONT TITRATE PRN Rx#:[id number] Protonix Inj 80 MG In NS Inj 84 / 84 100 ML @ 10 mls/hr IV.CONT CONT [facility] Rx#:[id number] Diprivan 1000 mg/100 ml Inj 1, 200 / 200 000 mg In 100 ml @ 5 MCG/KG/MIN 2.859 mls/hr IV.CONT TITRATE PRN Rx#:[id number] Calcium Gluconate Inj 1 GM In 110 / 110 D5W Inj 100 ML @ 110 mls/hr IV. SIG ONCE ONE Rx#:[id number] Intralipid 20% Inj 250 ML @ 31. 250 / 250 25 mls/hr IV.SIG Q24H [facility] Rx#: [id number] Mycamine Inj 100 MG In NS Inj 100 / 100 100 ML @ 100 mls/hr IV.SIG Q24H [facility] Rx#:[id number] Zosyn 2.25 GM Premix 50 ML @ 100 / 100 100 / 100 100 mls/hr IV.SIG Q8H [facility] Rx#: [id number] NS Inj 250 ML @ 15 mls/hr IV. 75 / 75 SIG ONCE [facility] Rx#:[id number] Sodium Chloride 23.4% Inj 5.5 1495 / 1495 MEQ Sodium Acetate Inj 29.5 MEQ KCl Inj 20 MEQ Calcium Chloride Inj 4.5 MEQ MVI-12 Inj 10 ML Folvite Inj 1 MG In Clinimix 5%/D20W Inj 2,000 ML @ 65 mls/hr IV.SIG Q24H [facility] Rx#: [id number] fentaNYL 10 mcg/mL Premix Drip 250 / 250 250 / 250 250 / 250 2,500 mcg In 250 ml @ 50 MCG/HR 5 mls/hr IV.SIG TITRATE PRN Rx #:[id number] Tube Feeding 0 / 0 42 / 42 Tube Irrigant 160 / 160 30 / 30 Anesthesia Amount 50 / 50 Intake (Blood Product) Amt 400 / 400 Rbc As-3 Leukoreduced Unit 0 / 0 [id number] Rbc As-3 Leukoreduced Unit 400 / 400 [id number] Output: Urine 0 / 0 Stool 350 / 350 60 / 60 Gastric Drainage 160 / 160 60 / 60 Pre-Hospital Jejunostomy Tube 10 / 10 Right Nare Nasogastric Tube 150 / 150 60 / 60 Wound Drainage 825 / 825 770 / 770 # 1 Right Abdomen 0 / 0 25 / 25 # 2 Right Abdomen 825 / 825 745 / 745 Chest Tube Drainage 640 / 640 #1 Left Pleural 640 / 640 Other: Date of Last Bowel Movement 12/13/17 12/14/17 Narrative: His abdomen is less distended today. It is softer. His extremities remain edematous. His drainage is primarily yellow serous fluid system with third spaced fluid. - Urinary Catheter Management Indwelling Temp Sensing Catheter Cath placed during this visit: no Results - Labs 12/14/17 05:15 12/14/17 05:15 Laboratory Results - last 24 hr 12/12/17 12/13/17 12/13/17 23:30 04:10 10:10 WBC RBC Hgb 8.4 L Hct 24.4 L MCV MCH MCHC RDW Plt Count MPV Haptoglobin 290 H PT INR APTT Fibrinogen Sodium Potassium Chloride Carbon Dioxide Anion Gap BUN Creatinine Estimated GFR POC Glucose Random Glucose Calcium Total Bilirubin AST ALT Alkaline Phosphatase Lactate Dehydrogenase 443 H Total Protein Albumin MTS Gel Crossmatch See Detail 12/13/17 12/13/17 12/13/17 10:10 10:10 12:51 WBC RBC Hgb 9.6 L D Hct 28.4 L MCV MCH MCHC RDW Plt Count MPV Haptoglobin PT 10.4 INR 1.0 APTT 30.7 Fibrinogen 606 H Sodium Potassium Chloride Carbon Dioxide Anion Gap BUN Creatinine Estimated GFR POC Glucose 182 H Random Glucose Calcium Total Bilirubin AST ALT Alkaline Phosphatase Lactate Dehydrogenase Total Protein Albumin MTS Gel Crossmatch 12/13/17 12/13/17 12/13/17 16:46 17:30 17:30 WBC 22.4 H RBC 2.95 L Hgb 8.7 L 8.7 L Hct 25.7 L MCV 87.0 D MCH 29.5 MCHC 33.9 RDW 16.0 Plt Count 261 MPV 9.9 Haptoglobin PT INR APTT Fibrinogen Sodium Potassium Chloride Carbon Dioxide Anion Gap BUN Creatinine Estimated GFR POC Glucose 141 H Random Glucose Calcium Total Bilirubin AST ALT Alkaline Phosphatase Lactate Dehydrogenase Total Protein Albumin MTS Gel Crossmatch 12/13/17 12/13/17 12/13/17 20:23 23:23 23:30 WBC RBC Hgb 8.4 L Hct 24.4 L MCV MCH MCHC RDW Plt Count MPV Haptoglobin PT INR APTT Fibrinogen Sodium Potassium Chloride Carbon Dioxide Anion Gap BUN Creatinine Estimated GFR POC Glucose 129 H 124 H Random Glucose Calcium Total Bilirubin AST ALT Alkaline Phosphatase Lactate Dehydrogenase Total Protein Albumin MTS Gel Crossmatch 12/14/17 12/14/17 12/14/17 03:48 05:15 05:15 WBC 21.2 H RBC 2.60 L Hgb 7.9 L Hct 23.0 L MCV 88.4 MCH 30.4 MCHC 34.4 RDW 16.3 Plt Count 244 MPV 9.3 Haptoglobin PT INR APTT Fibrinogen Sodium 134 L Potassium 4.6 Chloride 95 L Carbon Dioxide 22.4 Anion Gap 17 H BUN 119 H Creatinine 6.98 H Estimated GFR 10 L POC Glucose 155 H Random Glucose 136 H Calcium 8.6 Total Bilirubin 1.7 H AST 118 H ALT 130 H Alkaline Phosphatase 232 H Lactate Dehydrogenase Total Protein 6.0 L Albumin 1.7 L MTS Gel Crossmatch - Imaging Imaging: ITS Impressions Head MRI 12/03/17 00:00 CONCLUSION: 1. Minimal nonspecific periventricular white matter changes. 2. No restricted diffusion to suggest an acute ischemic event. 3. No evidence for significant ischemic changes. Chest CT 12/04/17 00:06 CONCLUSION: 1. Left greater than right pleural effusions and basilar atelectasis. 2. No hemorrhage or hematoma demonstrated. 3. Distended and fluid-filled esophagus. No wall thickening. Patient is status post gastrectomy. Nasogastric tube is at the GE junction. 4. Body wall edema/anasarca. Abdomen X-Ray 12/08/17 00:00 CONCLUSION: 1. 2 left-sided abdominal catheters. 2. Nonspecific bowel gas pattern. GI Bleed Scan Nuclear Medicine 12/11/17 00:00 CONCLUSION: 1. Negative examination with no evidence of acute GI bleeding. Abdomen/Pelvis CT 12/13/17 00:00 CONCLUSION: 1. New proximal small bowel dilatation. No discrete transition point. Contrast is seen in the distal small bowel. Findings may represent ileus or partial obstruction. 2. Postsurgical findings with surgical drains in the left upper quadrant. Free fluid is seen in the left upper quadrant. Loculated rounded 5 cm area of fluid with thin peripheral enhancement also noted just inferior to the surgical drains. 3. Prominent left lower lobe pulmonary consolidation and small left pleural effusion. Chest X-Ray 12/14/17 06:00 CONCLUSION: Worsening consolidation within the left lung base with possible small pleural fluid component. Assessment and Plan - Assessment (1) Gastric perforation Code(s): K25.5 - Chronic or unspecified gastric ulcer with perforation Status : Resolved Plan: 47yo male s/p Exlap and gastrectomy for gastric perforation, s/p [facility]junostomy at [facility] -Intubated---vent per CCM; if no improvements will likely need tracheostomy tube placed early next week -GI following---Plan for EGD and colonoscopy; transfusing 3 units PRBCs; starting Protonix drip -Continue to monitor -Discussed in detail with Dr. Bacon, Silvina COOK and RNs Pham - Plan I personally evaluated the patient in room 1313. His abdomen is more distended today. He has had more maroon stools. GI is planning colonoscopy today. Additionally have discussed his case with Dr. Bacon and recommended CT of the abdomen with oral contrast through the nasogastric and feeding jejunostomy tubes. I discussed his condition with his family at the bedside. The exam, history, and the medical decision-making described in the above note were completed with the assistance of the mid-level provider. I reviewed and agree with the findings presented. I attest that I had a [id number] encounter with the patient on the same day, and personally performed and documented my assessment and findings in the medical record. 12/14/2017 The patient's GI bleed appears to have slowed down. Discussed with Dr. Bacon. Plan to withdraw NG tube about 6-8 cm above the anastomosis to reduce irritation on the anastomotic site. Silas with bedside RN increasing tube feeds back to goal rate while weaning TPN. Supportive therapy at this time. No surgical indications
[2017-12-14] MEDS: Chlorhexidine 0.12% Oral Kit 15 ML UDC OROPHARYNG SCH ×2 (08:51→19:55)
[2017-12-14] MEDS: Calcium Acetate 667 MG Capsule PO SCH ×3 (09:56→17:07)
[2017-12-14] MEDS: hydrALAZINE 50 MG Tablet PO SCH ×3 (09:56→17:08)
--- NOTE | 2017-12-14 10:59 | P.PNNP ---
Subjective Interval history: Patient was seen, no distress, sedated. Patient to be dialyzed today. Patient to receive one unit of PRBC with dialysis today, Hgb is 7.9. Patient had colonoscopy and EGD yesterday which was unremarkable. Patient's central line was accidentally dislodged during colonoscopy yesterday and replaced. Patient had abdominal CT with contrast yesterday that showed proximal bowel dilatation, possibly an ileus or partial obstruction. Chest x-ray today showed consolidation within the left lung base with possible small pleural fluid component. Patient has left sided chest tube in place. Tube feeds resumed yesterday while TPN being weaned. <Jocelyn Crews - Last Filed: 12/14/17 11:11> Physical Exam Vital signs: Vital Signs 12/13/17 10:45 12/13/17 11:00 12/13/17 11:15 Temperature Pulse Rate 113 H 111 H 111 H Respiratory Rate 28 H 29 H 28 H Blood Pressure Pulse Oximetry 98 98 98 12/13/17 11:30 12/13/17 11:45 12/13/17 12:00 Temperature Pulse Rate 109 H 109 H 103 H Respiratory Rate 33 H 43 H 33 H Blood Pressure Pulse Oximetry 98 99 96 12/13/17 12:15 12/13/17 12:30 12/13/17 12:45 Temperature Pulse Rate 97 H 93 H 97 H Respiratory Rate 43 H 33 H 38 H Blood Pressure Pulse Oximetry 100 100 100 12/13/17 13:00 12/13/17 13:15 12/13/17 13:30 Temperature 98.7 F Pulse Rate 99 H 99 H 101 H Respiratory Rate 37 H 31 H 35 H Blood Pressure Pulse Oximetry 100 100 100 12/13/17 13:45 12/13/17 14:00 12/13/17 14:15 Temperature Pulse Rate 103 H 102 H 110 H Respiratory Rate 38 H 36 H 31 H Blood Pressure Pulse Oximetry 100 100 100 12/13/17 14:30 12/13/17 14:45 12/13/17 15:00 Temperature Pulse Rate 115 H 108 H 112 H Respiratory Rate 25 H 29 H 22 Blood Pressure Pulse Oximetry 100 100 100 12/13/17 15:15 12/13/17 15:30 12/13/17 15:45 Temperature Pulse Rate 110 H 110 H 105 H Respiratory Rate 23 18 27 H Blood Pressure Pulse Oximetry 99 100 100 12/13/17 16:00 12/13/17 16:15 12/13/17 16:28 Temperature Pulse Rate 113 H 110 H Respiratory Rate 33 H 30 H 19 Blood Pressure Pulse Oximetry 100 100 100 12/13/17 16:30 12/13/17 18:00 12/13/17 19:00 Temperature 97.1 F L Pulse Rate 103 H 103 H 102 H Respiratory Rate 25 H 24 Blood Pressure Pulse Oximetry 100 99 12/13/17 20:00 12/13/17 20:18 12/13/17 21:00 Temperature 99.1 F Pulse Rate 97 H 99 H 100 H Respiratory Rate 21 20 20 Blood Pressure 163/68 H Pulse Oximetry 100 100 12/13/17 22:00 12/13/17 23:00 12/13/17 23:34 Temperature Pulse Rate 100 H 103 H Respiratory Rate 22 20 20 Blood Pressure Pulse Oximetry 100 100 100 12/14/17 00:00 12/14/17 01:00 12/14/17 02:00 Temperature 99.4 F Pulse Rate 102 H 105 H 94 H Respiratory Rate 20 21 21 Blood Pressure 163/65 H Pulse Oximetry 100 100 100 12/14/17 03:00 12/14/17 03:48 12/14/17 04:00 Temperature 99.2 F Pulse Rate 96 H 98 H 97 H Respiratory Rate 21 20 22 Blood Pressure 159/61 H Pulse Oximetry 100 100 100 12/14/17 05:00 12/14/17 06:00 12/14/17 08:15 Temperature Pulse Rate 96 H 88 93 H Respiratory Rate 21 22 19 Blood Pressure Pulse Oximetry 100 100 100 Intake & Output 12/13/17 12/14/17 12/14/17 18:59 06:59 18:59 Intake Total 1295 / 1295 2451 / 2451 250 / 250 Output Total 1974 910 / 910 Balance -680 / -680 1541 / 1541 250 / 250 Weight 84.2 kg Intake: IV 685 / 685 2379 / 2379 250 / 250 Versed Inj 50 mg In 50 ml @ 2 50 / 50 MG/HR 2 mls/hr IV.CONT TITRATE PRN Rx#:[id number] Protonix Inj 80 MG In NS Inj 84 / 84 100 ML @ 10 mls/hr IV.CONT CONT [facility] Rx#:[id number] Diprivan 1000 mg/100 ml Inj 1, 200 / 200 000 mg In 100 ml @ 5 MCG/KG/MIN 2.859 mls/hr IV.CONT TITRATE PRN Rx#:[id number] Calcium Gluconate Inj 1 GM In 110 / 110 D5W Inj 100 ML @ 110 mls/hr IV. SIG ONCE ONE Rx#:[id number] Intralipid 20% Inj 250 ML @ 31. 250 / 250 25 mls/hr IV.SIG Q24H [facility] Rx#: [id number] Mycamine Inj 100 MG In NS Inj 100 / 100 100 ML @ 100 mls/hr IV.SIG Q24H [facility] Rx#:[id number] Zosyn 2.25 GM Premix 50 ML @ 100 / 100 100 / 100 100 mls/hr IV.SIG Q8H [facility] Rx#: [id number] NS Inj 250 ML @ 15 mls/hr IV. 75 / 75 SIG ONCE [facility] Rx#:[id number] Sodium Chloride 23.4% Inj 5.5 1495 / 1495 MEQ Sodium Acetate Inj 29.5 MEQ KCl Inj 20 MEQ Calcium Chloride Inj 4.5 MEQ MVI-12 Inj 10 ML Folvite Inj 1 MG In Clinimix 5%/D20W Inj 2,000 ML @ 65 mls/hr IV.SIG Q24H [facility] Rx#: [id number] fentaNYL 10 mcg/mL Premix Drip 250 / 250 250 / 250 250 / 250 2,500 mcg In 250 ml @ 50 MCG/HR 5 mls/hr IV.SIG TITRATE PRN Rx #:[id number] Tube Feeding 0 / 0 42 / 42 Tube Irrigant 160 / 160 30 / 30 Anesthesia Amount 50 / 50 Intake (Blood Product) Amt 400 / 400 Rbc As-3 Leukoreduced Unit 0 / 0 [id number] Rbc As-3 Leukoreduced Unit 400 / 400 [id number] Output: Urine 0 / 0 Stool 350 / 350 60 / 60 Gastric Drainage 160 / 160 60 / 60 Pre-Hospital Jejunostomy Tube 10 / 10 Right Nare Nasogastric Tube 150 / 150 60 / 60 Wound Drainage 825 / 825 770 / 770 # 1 Right Abdomen 0 / 0 25 / 25 # 2 Right Abdomen 825 / 825 745 / 745 Chest Tube Drainage 640 / 640 20 / 20 #1 Left Pleural 640 / 640 20 / 20 Other: Date of Last Bowel Movement 12/13/17 12/14/17 - Constitutional no acute distress - Routine HEENT Exam Head: Present: normocephalic ENT: Present: mucous membranes moist - Routine Neck Exam Present: trachea midline. Absent: tracheal deviation - Routine Respiratory Exam Present: patient mechanically ventilated. Absent: accessory muscle use, respiratory distress Comments: Left sided chest tube. - Routine Cardiovascular Exam Present: RRR, tachycardia - Routine Abdominal Exam Absent: soft - Routine Extremities Exam Present: edema, vascular access Comments: Upper extremity edema. - Routine Psychiatric Exam Present: unable to assess - Urinary Catheter Management Indwelling Temp Sensing Catheter Cath placed during this visit: no <MarsJocelyn - Last Filed: 12/14/17 11:11> Vital signs: Vital Signs 12/13/17 15:00 12/13/17 15:15 12/13/17 15:30 Temperature Pulse Rate 112 H 110 H 110 H Respiratory Rate 22 23 18 Blood Pressure Pulse Oximetry 100 99 100 12/13/17 15:45 12/13/17 16:00 12/13/17 16:15 Temperature Pulse Rate 105 H 113 H 110 H Respiratory Rate 27 H 33 H 30 H Blood Pressure Pulse Oximetry 100 100 100 12/13/17 16:28 12/13/17 16:30 12/13/17 18:00 Temperature 97.1 F L Pulse Rate 103 H 103 H Respiratory Rate 19 25 H Blood Pressure Pulse Oximetry 100 100 12/13/17 19:00 12/13/17 20:00 12/13/17 20:18 Temperature 99.1 F Pulse Rate 102 H 97 H 99 H Respiratory Rate 24 21 20 Blood Pressure 163/68 H Pulse Oximetry 99 100 12/13/17 21:00 12/13/17 22:00 12/13/17 23:00 Temperature Pulse Rate 100 H 100 H 103 H Respiratory Rate 20 22 20 Blood Pressure Pulse Oximetry 100 100 100 12/13/17 23:34 12/14/17 00:00 12/14/17 01:00 Temperature 99.4 F Pulse Rate 102 H 105 H Respiratory Rate 20 20 21 Blood Pressure 163/65 H Pulse Oximetry 100 100 100 12/14/17 02:00 12/14/17 03:00 12/14/17 03:48 Temperature Pulse Rate 94 H 96 H 98 H Respiratory Rate 21 21 20 Blood Pressure Pulse Oximetry 100 100 100 12/14/17 04:00 12/14/17 05:00 12/14/17 06:00 Temperature 99.2 F Pulse Rate 97 H 96 H 88 Respiratory Rate 22 21 22 Blood Pressure 159/61 H Pulse Oximetry 100 100 100 12/14/17 07:00 12/14/17 08:00 12/14/17 08:15 Temperature 98.8 F Pulse Rate 89 93 H 93 H Respiratory Rate 22 21 19 Blood Pressure Pulse Oximetry 100 100 100 12/14/17 09:00 12/14/17 10:00 12/14/17 11:00 Temperature Pulse Rate 96 H 95 H 109 H Respiratory Rate 23 17 19 Blood Pressure Pulse Oximetry 100 100 100 12/14/17 11:47 12/14/17 12:00 12/14/17 12:02 Temperature 98.8 F 98.7 F Pulse Rate 111 H 112 H Respiratory Rate 19 26 H 23 Blood Pressure Pulse Oximetry 100 100 100 12/14/17 13:00 Temperature Pulse Rate 121 H Respiratory Rate 21 Blood Pressure Pulse Oximetry 95 Intake & Output 12/13/17 12/14/17 12/14/17 18:59 06:59 18:59 Intake Total 1295 / 1295 2451 / 2451 850 / 850 Output Total 1974 910 / 910 Balance -680 / -680 1541 / 1541 850 / 850 Weight 84.2 kg Intake: IV 685 / 685 2379 / 2379 450 / 450 Versed Inj 50 mg In 50 ml @ 2 50 / 50 MG/HR 2 mls/hr IV.CONT TITRATE PRN Rx#:[id number] Protonix Inj 80 MG In NS Inj 84 / 84 100 ML @ 10 mls/hr IV.CONT CONT [facility] Rx#:[id number] Diprivan 1000 mg/100 ml Inj 1, 200 / 200 100 / 100 000 mg In 100 ml @ 5 MCG/KG/MIN 2.859 mls/hr IV.CONT TITRATE PRN Rx#:[id number] Calcium Gluconate Inj 1 GM In 110 / 110 D5W Inj 100 ML @ 110 mls/hr IV. SIG ONCE ONE Rx#:[id number] Intralipid 20% Inj 250 ML @ 31. 250 / 250 25 mls/hr IV.SIG Q24H [facility] Rx#: [id number] Mycamine Inj 100 MG In NS Inj 100 / 100 100 / 100 100 ML @ 100 mls/hr IV.SIG Q24H [facility] Rx#:[id number] Zosyn 2.25 GM Premix 50 ML @ 100 / 100 100 / 100 100 mls/hr IV.SIG Q8H [facility] Rx#: [id number] NS Inj 250 ML @ 15 mls/hr IV. 75 / 75 SIG ONCE [facility] Rx#:[id number] Sodium Chloride 23.4% Inj 5.5 1495 / 1495 MEQ Sodium Acetate Inj 29.5 MEQ KCl Inj 20 MEQ Calcium Chloride Inj 4.5 MEQ MVI-12 Inj 10 ML Folvite Inj 1 MG In Clinimix 5%/D20W Inj 2,000 ML @ 65 mls/hr IV.SIG Q24H [facility] Rx#: [id number] fentaNYL 10 mcg/mL Premix Drip 250 / 250 250 / 250 250 / 250 2,500 mcg In 250 ml @ 50 MCG/HR 5 mls/hr IV.SIG TITRATE PRN Rx #:[id number] Tube Feeding 0 / 0 42 / 42 Tube Irrigant 160 / 160 30 / 30 Anesthesia Amount 50 / 50 Intake (Blood Product) Amt 400 / 400 400 / 400 Rbc As-3 Leukoreduced Unit 0 / 0 [id number] Rbc As-3 Leukoreduced Unit 400 / 400 [id number] Rbc As-3 Leukoreduced Unit 400 / 400 [id number] Output: Urine 0 / 0 Stool 350 / 350 60 / 60 Gastric Drainage 160 / 160 60 / 60 Pre-Hospital Jejunostomy Tube 10 / 10 Right Nare Nasogastric Tube 150 / 150 60 / 60 Wound Drainage 825 / 825 770 / 770 # 1 Right Abdomen 0 / 0 25 / 25 # 2 Right Abdomen 825 / 825 745 / 745 Chest Tube Drainage 640 / 640 20 / 20 #1 Left Pleural 640 / 640 20 / 20 Other: Date of Last Bowel Movement 12/13/17 12/14/17 12/14/17 - Urinary Catheter Management Indwelling Temp Sensing Catheter Cath placed during this visit: no <Filipe Robertson - Last Filed: 12/14/17 14:56> Assessment and Plan - Assessment (1) JACLYN (acute kidney injury) Code(s): N17.9 - Acute kidney failure, unspecified Status: Acute Plan: Anuric renal failure. He has become dialysis dependent. Dialysis every 2nd day. Patient to be dialyzed today. Monitor for recovery. Continue supportive care. Avoid nephrotoxic agents. PhosLo increased, patient's Phosphorus on 12/12/17 was 8.3, will repeat Phosphorus lab. (2) Acute respiratory failure Code(s): J96.00 - Acute respiratory failure, unspecified whether with hypoxia or hypercapnia Status: Acute Qualifiers: Respiratory failure complication: hypoxia Qualified Code(s): J96.01 - Acute respiratory failure with hypoxia Plan: On the ventilator. Possible aspiration. Chest x-ray today showed consolidation within the left lung base with possible small pleural fluid component. Patient has left sided chest tube in place. (3) Gastric perforation Code(s): K25.5 - Chronic or unspecified gastric ulcer with perforation Status : Resolved Plan: s/p surgery. Subtotal gastrectomy in [place]. In [facility] he had: Dinh-en-y esophagojejunostomy, feeding jejunostomy placement, diagnostic EGD, primary fascial closure. Date of procedure: 11/28/17 (4) Candidemia Code(s): B37.7 - Candidal sepsis Status: Acute Plan: On Micafungin. Patient is also on Zosyn. Dose medications appropriate to renal function. (5) DVT (deep venous thrombosis) Code(s): I82.409 - Acute embolism and thrombosis of unspecified deep veins of unspecified lower extremity Status: Acute Plan: On heparin drip. DVT of bilateral upper extremities. (6) Anemia Code(s): D64.9 - Anemia, unspecified Status: Acute Plan: Could be multifactorial. Also could be due to renal failure. Patient to receive one unit of PRBC today during dialysis. Transfuse prn. <Jocelyn Crews - Last Filed: 12/14/17 11:11> - Assessment (1) JACLYN (acute kidney injury) Code(s): N17.9 - Acute kidney failure, unspecified Status: Acute (2) Acute respiratory failure Code(s): J96.00 - Acute respiratory failure, unspecified whether with hypoxia or hypercapnia Status: Acute Qualifiers: Respiratory failure complication: hypoxia Qualified Code(s): J96.01 - Acute respiratory failure with hypoxia (3) Gastric perforation Code(s): K25.5 - Chronic or unspecified gastric ulcer with perforation Status : Resolved (4) Candidemia Code(s): B37.7 - Candidal sepsis Status: Acute (5) DVT (deep venous thrombosis) Code(s): I82.409 - Acute embolism and thrombosis of unspecified deep veins of unspecified lower extremity Status: Acute (6) Anemia Code(s): D64.9 - Anemia, unspecified Status: Acute - Attending Attestation patient was seen and examined. Agree with above assessment and plan. <Filipe Robertson - Last Filed: 12/14/17 14:56>
--- NOTE | 2017-12-14 11:03 | P.PNCC ---
Subjective Subjective Remarks/Hospital Course: Patient was recently admitted to [facility] 11/22 and transferred to [facility] 11/26/17 after the following hospital course: 47-year-old -Russian male with reportedly no past medical or past surgical history who was admitted to hospitalist service 11/22/17 after presenting with abdominal pain, nausea, vomiting. He had CT abd/pelvis with massive gastric distention. NG tube had been placed. I was called to patient's bedside for CODE BLUE PEA arrest. CPR was ongoing and patient had massive abdominal distension and gastric regurgitant in the airway. He was emergently intubated and large amount of gastric secretions suctioned from oropharynx. After 21 minutes of CPR, ROSC was obtained and he was profoundly hypotensive. Continued aggressive fluid resuscitation and initiated dopamine. He was transferred to [facility] where CVL and R radial art line were placed and he was given 7 L of crystalloid and albumin. CXR demonstrated pneumoperitoneum and Dr. Martin Gudino was called emergently and he immediately contacted OR for emergent ex lap. He had intraabdominal hypertension with IAP of 40 mmHg, though fortunately was able to be ventilated adequately after rocuronium 50 mg IV and was transferred to OR. Dr. Martin Gudino took to the operating room early in the morning on 11/23 and discovered tension pneumoperitoneum, massive gastric distension, ischemia of the proximal 2/3 of the stomach and large gastric perforation with massive intraperitoneal contamination with food particles. Dr. Isaacs placed 2 NGT and decompressed 2 L of succus. Patient had initial improvement in vital signs in the immediate postoperative period, however he subsequently became hypotensive requiring upward titration of levophed and addition of vasopressin and stress dose hydrocortisone. He remains on levophed 10 mcg/min, neosynephrine 80 mcg/ min, vasopressin 0.04 units/min with overall vasopressor requirement weaning overnight. He is oliguric and creatinine is continuing to climb. He was given 2 L of crystalloid and albumin overnight. He does have significant fluid losses with combination of abdominal dressing and NGT output, so I will give an additional L of crystalloid now to monitor hourly response as he certainly does not appear volume overloaded. Nonetheless Flotrac numbers are suggesting adequate volume status and we may be seeing the consequence of ischemic ATN. May ultimately require HD, however not at this time. Abdomen remains open and plan is to re-explore 11/25. 11/25: Patient has acceptable hemodynamics by Flotrac but remains septic with requirements for phenylephrine 200 mics per minute, Levophed 8 mics per minute and vasopressin 0.04 units/min for blood pressure support. This has improved overnight and the Bhavesh-Synephrine support has been weaned off completely. Acid base balance is acceptable. ATN has developed which will undoubtedly require hemodialysis. Potassium level is normal. He is at increased risk for an anesthetic now but there is an urgent need to check for residual gastric necrosis. 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 Since the source control surgery, the maintenance of normal acid-base balance has been less difficult. Patient remains anuric with a rising creatinine above 6.0. He is clearly ahead on volume and will benefit from dialysis. A 2 lumen hemodialysis catheter was placed on 11/25 and has been packed with dilute heparin solution. The right internal jugular central line is been in place for 4 days and accessed multiple times. The femoral art line has been in for 4 days. Shock liver was apparent after the cardiac arrest reflecting a transaminitis, elevated bilirubin, and prolonged INR. The INR has remained normal following the transfusion of 4 units of fresh frozen plasma prior to surgery yesterday. A 10% dextrose infusion continues because of ongoing problems with hypoglycemia. Thrombocytopenia at 37,000 persists. He has remained on antibiotic coverage with Pipracil/tazobactam and fungal coverage with fluconazole, all adjusted for renal failure. Present vasopressor requirements include levophed at 7 mics per minute and vasopressin at 0.04 units/min. The chest x-ray is consistent with minor aspiration at the time of his preoperative cardiac arrest on the floor and cultures have subsequently grown Klebsiella, pansensitive. The operative note will clarify the extent of the surgery but in essence the distal esophagus is stapled off and marked with 2 Prolene sutures. The antrum of the stomach is oversewn. Most of the stomach has been removed. The abdomen is open with a VAC dressing applied. Subjective: 11/29: Bowel was in discontinuity following subtotal gastrectomy and patient was transferred to [facility]. On reexploration 11/28 he underwent Dinh-en-y esophagojejunostomy, feeding jejunostomy placement, diagnostic EGD, primary fascial closure. Wound vac was applied to abdomen (though currently wet to dry dressing in place upon arrival). He was reportedly found to have candidemia and was started on micafungin and has undergone ophtho eval. Lines including CVL, Vascath and art line have all been changed at [facility] (though not clear when). He remains on mechanical ventilation and has been weaned off pressors. He was found to have BUE DVTs and is on heparin drip. He is on TPN and has been started on trickle tube feeds with Nepro via jejunostomy. NGT is to [facility]. He underwent HD postoperatively on 11/28. He has now been transferred back to [facility] for ongoing management. I have updated his father and stepmother. 11/30: Patient re-admitted s/p transfer from [facility] overnight, otherwise no acute issues. Scheduled to undergo HD today. 12/01: T-max 101.7, leukocytosis to 27,000 with bandemia. Now 3 days following Dinh-en-Y reconstruction of GI tract following sub-total gastrectomy for gastric necrosis. All new lines placed after diagnosis of candidemia. TPN infusing, jejunostomy at trickle flow and can be increased slowly per general surgery. 12/02: Marked leukocytosis with bandemia persists. Afebrile over last 24 hours. Leave NG tube across the esophageal anastomosis and surgical service will direct timing of contrast study about 7 days following surgery. Continue with spontaneous breathing trials. 12/03: extubated yesterday. since then, has not followed commands, and does not talk. appears to have clinically an aphasia, although his uremia or severe hypoactive delirium could present this way. purposeful movements. will obtain MRI to rule out acute ischemia, as this appears to be a new mental status change (11/29 /[facility] notes state interactive on ventilator). 12/04: reintubated overnight: more output from ZAINAB drains. hgb dropped to 7 this AM: receiving 1 unit prbc. MRI negative for acute change. EEG ordered today to rule out subclinical status epilepticus. also concern overnight for aspiration event. 12/05: T-max 99. WBC 24,000. Reintubated yesterday for respiratory failure probably related to aspiration. Trickle feeding continues through jejunostomy. Nasogastric tube is through the anastomosis and is to low intermittent. 12/06: Afebrile. WBC 26,000. Bandemia has largely resolved. There are bilateral pleural effusions which may need to be tapped to rule out infection or leak. Both lower lobes are consolidated on CAT scan, probably representing compressive atelectasis from the effusions. 12/07: White count remains elevated at 25,000. Total parenteral nutrition infusing and tolerated. Altered mental status persists, possibly related to the cardiac arrest on the floor prior to transfer to the ICU. 12/08: Tolerating total parenteral nutrition with good glucose control. Leukocytosis persists. Fluid tap from left chest bit cloudy, cultures pending. Maintaining adequate gas exchange on lower levels of fractional inspired oxygen. Aim for extubation trial again soon. 12/09: Patient considerably less edematous over the past several days following successful dialysis runs. Continually fails attempts at weaning parameters and desaturation. Left chest drainage is no growth by culture. White blood cell count remains elevated. 12/10: Remains intubated. WBC count elevated but stable. Left chest tube with 260 mL output in 24 hours. BUN/creatinine remains elevated 12/11: Remains intubated sedated hemoglobin dropped to 5.8 today. RN has noted lower GI bleed. Protonix IV every 12 started and GI consulted. Transfuse 2 units PRBC. Keep n.p.o. discussed with Dr. Wellington 12/12: Patient remains intubated sedated for vent synchrony. Hemoglobin stable 7.5. Endoscopy negative yesterday CT abdomen pelvis no active bleeding. Hemodynamically remained stable. Receiving hemodialysis at this time. Left chest tube with high output 450 mL in 24 hours. Attempt weaning trials starting today 12/13: Patient continues to lose blood. Hemoglobin 5.5. Plan to get colonoscopy today. Continues to have melanotic stools. The night RN aspirated blood from jejunostomy tube. Enteroscopy yesterday was unremarkable. Transfusing 3 units of PRBC repeat hemoglobin at 2 PM. No significant bloody output from ZAINAB drains. Will discuss with general surgery 12/14: Remains intubated sedated hemoglobin 7.9 today 1 unit PRBC ordered. Can melanotic stools or NG tube coffee-ground today. EGD yesterday showed friable mucosa at the esophageal anastomotic junction which was injected by GI. Otherwise endoscopies including colonoscopies unremarkable. Hemodynamically remained stable. Discussed extensively with GI and general surgery yesterday Objective Vital Signs / I&O: Vital Signs 12/13/17 11:00 12/13/17 11:15 12/13/17 11:30 Temperature Pulse Rate 111 H 111 H 109 H Respiratory Rate 29 H 28 H 33 H Blood Pressure Pulse Oximetry 98 98 98 12/13/17 11:45 12/13/17 12:00 12/13/17 12:15 Temperature Pulse Rate 109 H 103 H 97 H Respiratory Rate 43 H 33 H 43 H Blood Pressure Pulse Oximetry 99 96 100 12/13/17 12:30 12/13/17 12:45 12/13/17 13:00 Temperature Pulse Rate 93 H 97 H 99 H Respiratory Rate 33 H 38 H 37 H Blood Pressure Pulse Oximetry 100 100 100 12/13/17 13:15 12/13/17 13:30 12/13/17 13:45 Temperature 98.7 F Pulse Rate 99 H 101 H 103 H Respiratory Rate 31 H 35 H 38 H Blood Pressure Pulse Oximetry 100 100 100 12/13/17 14:00 12/13/17 14:15 12/13/17 14:30 Temperature Pulse Rate 102 H 110 H 115 H Respiratory Rate 36 H 31 H 25 H Blood Pressure Pulse Oximetry 100 100 100 12/13/17 14:45 12/13/17 15:00 12/13/17 15:15 Temperature Pulse Rate 108 H 112 H 110 H Respiratory Rate 29 H 22 23 Blood Pressure Pulse Oximetry 100 100 99 12/13/17 15:30 12/13/17 15:45 12/13/17 16:00 Temperature Pulse Rate 110 H 105 H 113 H Respiratory Rate 18 27 H 33 H Blood Pressure Pulse Oximetry 100 100 100 12/13/17 16:15 12/13/17 16:28 12/13/17 16:30 Temperature 97.1 F L Pulse Rate 110 H 103 H Respiratory Rate 30 H 19 25 H Blood Pressure Pulse Oximetry 100 100 100 12/13/17 18:00 12/13/17 19:00 12/13/17 20:00 Temperature 99.1 F Pulse Rate 103 H 102 H 97 H Respiratory Rate 24 21 Blood Pressure 163/68 H Pulse Oximetry 99 100 12/13/17 20:18 12/13/17 21:00 12/13/17 22:00 Temperature Pulse Rate 99 H 100 H 100 H Respiratory Rate 20 20 22 Blood Pressure Pulse Oximetry 100 100 12/13/17 23:00 12/13/17 23:34 11/09/18 00:00 Temperature 99.4 F Pulse Rate 103 H 102 H Respiratory Rate 20 20 20 Blood Pressure 163/65 H Pulse Oximetry 100 100 100 12/14/17 01:00 12/14/17 02:00 12/14/17 03:00 Temperature Pulse Rate 105 H 94 H 96 H Respiratory Rate 21 21 21 Blood Pressure Pulse Oximetry 100 100 100 12/14/17 03:48 12/14/17 04:00 12/14/17 05:00 Temperature 99.2 F Pulse Rate 98 H 97 H 96 H Respiratory Rate 20 22 21 Blood Pressure 159/61 H Pulse Oximetry 100 100 100 12/14/17 06:00 12/14/17 08:15 Temperature Pulse Rate 88 93 H Respiratory Rate 22 19 Blood Pressure Pulse Oximetry 100 100 Intake & Output 12/13/17 12/14/17 12/14/17 18:59 06:59 18:59 Intake Total 1295 / 1295 2451 / 2451 250 / 250 Output Total 1974 910 / 910 Balance -680 / -680 1541 / 1541 250 / 250 Weight 84.2 kg Intake: IV 685 / 685 2379 / 2379 250 / 250 Versed Inj 50 mg In 50 ml @ 2 50 / 50 MG/HR 2 mls/hr IV.CONT TITRATE PRN Rx#:[id number] Protonix Inj 80 MG In NS Inj 84 / 84 100 ML @ 10 mls/hr IV.CONT CONT COLE Rx#:[id number] Diprivan 1000 mg/100 ml Inj 1, 200 / 200 000 mg In 100 ml @ 5 MCG/KG/MIN 2.859 mls/hr IV.CONT TITRATE PRN Rx#:[id number] Calcium Gluconate Inj 1 GM In 110 / 110 D5W Inj 100 ML @ 110 mls/hr IV. SIG ONCE ONE Rx#:[id number] Intralipid 20% Inj 250 ML @ 31. 250 / 250 25 mls/hr IV.SIG Q24H COLE Rx#: [id number] Mycamine Inj 100 MG In NS Inj 100 / 100 100 ML @ 100 mls/hr IV.SIG Q24H COLE Rx#:[id number] Zosyn 2.25 GM Premix 50 ML @ 100 / 100 100 / 100 100 mls/hr IV.SIG Q8H COLE Rx#: [id number] NS Inj 250 ML @ 15 mls/hr IV. 75 / 75 SIG ONCE [facility] Rx#:[id number] Sodium Chloride 23.4% Inj 5.5 1495 / 1495 MEQ Sodium Acetate Inj 29.5 MEQ KCl Inj 20 MEQ Calcium Chloride Inj 4.5 MEQ MVI-12 Inj 10 ML Folvite Inj 1 MG In Clinimix 5%/D20W Inj 2,000 ML @ 65 mls/hr IV.SIG Q24H [facility] Rx#: [id number] fentaNYL 10 mcg/mL Premix Drip 250 / 250 250 / 250 250 / 250 2,500 mcg In 250 ml @ 50 MCG/HR 5 mls/hr IV.SIG TITRATE PRN Rx #:[id number] Tube Feeding 0 / 0 42 / 42 Tube Irrigant 160 / 160 30 / 30 Anesthesia Amount 50 / 50 Intake (Blood Product) Amt 400 / 400 Rbc As-3 Leukoreduced Unit 0 / 0 [id number] Rbc As-3 Leukoreduced Unit 400 / 400 [id number] Output: Urine 0 / 0 Stool 350 / 350 60 / 60 Gastric Drainage 160 / 160 60 / 60 Pre-Hospital Jejunostomy Tube 10 / 10 Right Nare Nasogastric Tube 150 / 150 60 / 60 Wound Drainage 825 / 825 770 / 770 # 1 Right Abdomen 0 / 0 25 / 25 # 2 Right Abdomen 825 / 825 745 / 745 Chest Tube Drainage 640 / 640 20 / 20 #1 Left Pleural 640 / 640 20 / 20 Other: Date of Last Bowel Movement 12/13/17 12/14/17 Result Diagrams: 12/14/17 05:15 12/14/17 05:15 Objective Remarks: GEN: Chronically ill-appearing, sedated for vent synchrony HEENT: NCAT, pupils 3 mm and reactive bilaterally NECK: RIJ vasc-cath and LIJ TLC present, clean/ dry/ intact CARDIO: NSR, regular rhythm, no JVD PULM: prvc, fio2 35%. equal chest rise. Scattered rhonchi persist, decreased breath sounds both bases. L pigtail in place ABD: Midline surgical bandages clean/ dry/ intact. ZAINAB #1 is anterior to esophagojejunostomy anastomosis, ZAINAB #2 posterior, both with serosanguineous drainage. Abdomen soft. SKIN: No rashes or lesions, dry NEURO: Moves 4 limbs spontaneously. Purposeful with arms, tracks with eyes. Intermittently follow commands. Opens eyes to voice. Assessment and Plan - Problem List (1) Gastric perforation Code(s): K25.5 - Chronic or unspecified gastric ulcer with perforation Status : Resolved (2) Status post total gastrectomy and Dinh-en-Y esophagojejunal anastomosis Code(s): Z90.3 - Acquired absence of stomach [part of]; Z98.0 - Intestinal bypass and anastomosis status Status: Acute (3) Ischemic hepatitis Code(s): K75.9 - Inflammatory liver disease, unspecified Status: Acute (4) Gastric necrosis Code(s): K31.89 - Other diseases of stomach and duodenum Status: Resolved (5) Thrombocytopenia Code(s): D69.6 - Thrombocytopenia, unspecified Status: Acute (6) Acute bilateral deep vein thrombosis (DVT) of upper extremities Code(s): I82.623 - Acute embolism and thrombosis of deep veins of upper extremity, bilateral Status: Acute (7) Anemia Code(s): D64.9 - Anemia, unspecified Status: Acute (8) Leukocytosis Code(s): D72.829 - Elevated white blood cell count, unspecified Status: Acute (9) Candidemia Code(s): B37.7 - Candidal sepsis Status: Acute (10) On total parenteral nutrition (TPN) Code(s): Z78.9 - Other specified health status Status: Acute (11) Hx of cardiac arrest Code(s): Z86.74 - Personal history of sudden cardiac arrest Status: Resolved (12) Acute hemodialysis patient Code(s): Z99.2 - Dependence on renal dialysis Status: Acute (13) JACLYN (acute kidney injury) Code(s): N17.9 - Acute kidney failure, unspecified Status: Acute (14) Aspiration pneumonia Code(s): J69.0 - Pneumonitis due to inhalation of food and vomit Status: Acute (15) Acute respiratory failure Code(s): J96.00 - Acute respiratory failure, unspecified whether with hypoxia or hypercapnia Status: Acute - Assessment and Plan Plan: NEURO: Acute metabolic encephalopathy On Fentanyl/versed drips for sedation, pain control Pupils dilated bilaterally--> stepmother states dilated fundoscopic exam prior to transfer. On sedation lightening patient starting to follow commands RESP: Acute respiratory failure Left pleural effusion PRVC, Ventilator Bundle Ventilator weaning when appropriate Scheduled and as needed breathing treatments Spontaneous breathing trials as tolerated, too unstable for extubation Left pigtail chest tube to wall suction CV: Cardiac arrest 11/23/17 (PEA arrest due to shock secondary to acute gastric perf and tension pneumoperitoneum) Septic shock, resolved Now off pressors Hemodynamic monitoring Use as needed medication for hypertension Fluid removal with hemodialysis GI: s/p anterior gastric perforation with tension pneumoperitoneum status post ex lap with primary repair with stapler 11/23 On second look 11/25 he was found to have gastric necrosis requiring subtotal gastrectomy and placement of AB Thera VAC dressing. The bowel was in discontinuity and he was transferred to [facility]. On 11/28 he underwent reexploration with Dinh-en-y esophagojejunostomy, feeding jejunostomy placement, diagnostic EGD, primary fascial closure. Gastric necrosis , Ischemic hepatopathy GIB with blood loss anemia NGT to LIWS, leave above esophageal anastomosis to avoid irritation Has feeding jejunostomy and tube feeds with Nepro 10 mL resumed yesterday EGD, enteroscopy 12/12/2017 unremarkable, colonoscopy 12/13/2017 unremarkable ZAINAB drains in place #1 anterior to anastomosis, #2 posterior to the anastomosis. Management per general surgery. Continue TPN renal formula 65 mL/hr. Intermittent lipids daily. Wean TPN while advancing tube feeds wound vac was in place at outside hospital, currently wet to dry dressings in place upon arrival. Dr. Wellington general surgery following Had right upper quadrant ultrasound on 11/27/17 that demonstrated contracted gallbladder with sludge. No evidence of cholecystitis. Echogenicity in right liver related to focal fatty change or altered perfusion, patent vascularity. Protonix GTT FEN/RENAL: JACLYN secondary to ischemic ATN HD as started 11/26 at [place]. Has R IJ Vascath. Monitor I/O and electrolytes. Nephrology following ID: Gastric perforation with large amount particulate peritoneal contamination 11/23 Acute Aspiration pneumonia Candidemia (C Glabrata 11/26 at culture) Patient had been on micafungin 100 mg IV daily (started at ) with last administration at 10 AM on 11/29. Was previously on Diflucan IV. On Zosyn 2.25 IV every 8 hours with last administration 11/29 at noon. Continue zosyn/micafungin. Patient evaluated by ophthalmology prior to transfer. Do not see an ophthalmology note in the transfer documentation, requested document. Requested culture data from [facility]. Follow-up cultures here Sputum culture 11/24 with pansensitive Klebsiella pneumonia ID following Dr. Millan HEME: Anemia requiring transfusion Thrombocytopenia-resolved Bilateral upper extremity DVTs Transfuse 3 units PRBC yesterday, transfuse 1 unit PRBC today 12/14/2017. GI workup as above. U/s 11/26 BUE - thrombus R axillary, brachial and basilic veins and thrombus in left axillary and left brachial veins. U/s bilateral lower extremities 11/26 at [facility] negative from common femoral to popliteal vein levels. Arrived on heparin drip, due to GI bleed and anemia all anticoagulation is being held Hematology consult was obtained at [facility] and recommended heparin drip and transfuse prn for platelets <50k. ENDO: Monitor Glucose q4 hours and use low dose insulin sliding scale as indicated. PROPH: s/q heparin held due to blood loss anemia. Protonix for stress ulcer prophylaxis. DVT prophylaxis. ACCESS: R IJ vascath , L IJ CVL. All existing lines were replaced at [facility]. Left IJ line accidentally was dislodged 12/23/2017, new left IJ line placed FULL CODE Critical care 32 minutes (6) Acute bilateral deep vein thrombosis (DVT) of upper extremities Qualifiers: Qualified Code(s): I82.623 - Acute embolism and thrombosis of deep veins of upper extremity, bilateral (15) Acute respiratory failure Qualifiers: Qualified Code(s): J96.01 - Acute respiratory failure with hypoxia
--- NOTE | 2017-12-14 11:25 | XR ---
EXAM DATE: 12/14/2017 11:15 AM EST AGE/SEX: 47 years / Male INDICATIONS: Shortness of breath. CLINICAL DATA: This is the patient's initial encounter. Patient reports that signs and symptoms have been present for 1 day and indicates a pain score of Nonresponsive. MEDICAL/SURGICAL HISTORY: . Renal failure, acute. Cardiac arrest, aspiration pneumonia . Gastr ectomy, Dinh en Y. . COMPARISON: [facility], CHEST 1V SINGLE AP, 12/14/2017. . FINDINGS: Significant left basilar opacity remains evident. Right lung is relatively clear. Heart and mediastinal structures are stable. Support devices remain in good position. CONCLUSION: Persistent left basilar airspace disease and underlying effusion. No significant change or improvement compared to earlier exam. Electronically signed by: Rajesh Bryson MD 12/14/2017 11:23 AM EST
--- NOTE | 2017-12-14 12:21 | P.PNID ---
Subjective Remarks: Patient remains on the ventilator. Currently sedated. Afebrile. Receives blood transfusions. Left-sided chest tube has decreased output. Peritoneum and pleural fluid culture has no growth. White blood cell count still elevated. Reintubated 12/04 Antibiotics: Micafungin Zosyn Allergies/Adverse Reactions: Allergies No Known Allergies Allergy (Verified 11/22/17 02:38) Objective Vital Signs 12/13/17 12:30 12/13/17 12:45 12/13/17 13:00 Temperature Pulse Rate 93 H 97 H 99 H Respiratory Rate 33 H 38 H 37 H Blood Pressure Pulse Oximetry 100 100 100 12/13/17 13:15 12/13/17 13:30 12/13/17 13:45 Temperature 98.7 F Pulse Rate 99 H 101 H 103 H Respiratory Rate 31 H 35 H 38 H Blood Pressure Pulse Oximetry 100 100 100 12/13/17 14:00 12/13/17 14:15 12/13/17 14:30 Temperature Pulse Rate 102 H 110 H 115 H Respiratory Rate 36 H 31 H 25 H Blood Pressure Pulse Oximetry 100 100 100 12/13/17 14:45 12/13/17 15:00 12/13/17 15:15 Temperature Pulse Rate 108 H 112 H 110 H Respiratory Rate 29 H 22 23 Blood Pressure Pulse Oximetry 100 100 99 12/13/17 15:30 12/13/17 15:45 12/13/17 16:00 Temperature Pulse Rate 110 H 105 H 113 H Respiratory Rate 18 27 H 33 H Blood Pressure Pulse Oximetry 100 100 100 12/13/17 16:15 12/13/17 16:28 12/13/17 16:30 Temperature 97.1 F L Pulse Rate 110 H 103 H Respiratory Rate 30 H 19 25 H Blood Pressure Pulse Oximetry 100 100 100 12/13/17 18:00 12/13/17 19:00 12/13/17 20:00 Temperature 99.1 F Pulse Rate 103 H 102 H 97 H Respiratory Rate 24 21 Blood Pressure 163/68 H Pulse Oximetry 99 100 12/13/17 20:18 12/13/17 21:00 12/13/17 22:00 Temperature Pulse Rate 99 H 100 H 100 H Respiratory Rate 20 20 22 Blood Pressure Pulse Oximetry 100 100 12/13/17 23:00 12/13/17 23:34 11/09/18 00:00 Temperature 99.4 F Pulse Rate 103 H 102 H Respiratory Rate 20 20 20 Blood Pressure 163/65 H Pulse Oximetry 100 100 100 12/14/17 01:00 12/14/17 02:00 12/14/17 03:00 Temperature Pulse Rate 105 H 94 H 96 H Respiratory Rate 21 21 21 Blood Pressure Pulse Oximetry 100 100 100 12/14/17 03:48 12/14/17 04:00 12/14/17 05:00 Temperature 99.2 F Pulse Rate 98 H 97 H 96 H Respiratory Rate 20 22 21 Blood Pressure 159/61 H Pulse Oximetry 100 100 100 12/14/17 06:00 12/14/17 08:15 12/14/17 11:47 Temperature 98.8 F Pulse Rate 88 93 H 111 H Respiratory Rate 22 19 19 Blood Pressure Pulse Oximetry 100 100 100 12/14/17 12:02 Temperature Pulse Rate Respiratory Rate 23 Blood Pressure Pulse Oximetry 100 Intake & Output 12/13/17 12/14/17 12/14/17 18:59 06:59 18:59 Intake Total 1295 / 1295 2451 / 2451 350 / 350 Output Total 1974 910 / 910 Balance -680 / -680 1541 / 1541 350 / 350 Weight 84.2 kg Intake: IV 685 / 685 2379 / 2379 350 / 350 Versed Inj 50 mg In 50 ml @ 2 50 / 50 MG/HR 2 mls/hr IV.CONT TITRATE PRN Rx#:[id number] Protonix Inj 80 MG In NS Inj 84 / 84 100 ML @ 10 mls/hr IV.CONT CONT COLE Rx#:[id number] Diprivan 1000 mg/100 ml Inj 1, 200 / 200 000 mg In 100 ml @ 5 MCG/KG/MIN 2.859 mls/hr IV.CONT TITRATE PRN Rx#:[id number] Calcium Gluconate Inj 1 GM In 110 / 110 D5W Inj 100 ML @ 110 mls/hr IV. SIG ONCE ONE Rx#:[id number] Intralipid 20% Inj 250 ML @ 31. 250 / 250 25 mls/hr IV.SIG Q24H [facility] Rx#: [id number] Mycamine Inj 100 MG In NS Inj 100 / 100 100 / 100 100 ML @ 100 mls/hr IV.SIG Q24H [facility] Rx#:[id number] Zosyn 2.25 GM Premix 50 ML @ 100 / 100 100 / 100 100 mls/hr IV.SIG Q8H [facility] Rx#: [id number] NS Inj 250 ML @ 15 mls/hr IV. 75 / 75 SIG ONCE [facility] Rx#:[id number] Sodium Chloride 23.4% Inj 5.5 1495 / 1495 MEQ Sodium Acetate Inj 29.5 MEQ KCl Inj 20 MEQ Calcium Chloride Inj 4.5 MEQ MVI-12 Inj 10 ML Folvite Inj 1 MG In Clinimix 5%/D20W Inj 2,000 ML @ 65 mls/hr IV.SIG Q24H [facility] Rx#: [id number] fentaNYL 10 mcg/mL Premix Drip 250 / 250 250 / 250 250 / 250 2,500 mcg In 250 ml @ 50 MCG/HR 5 mls/hr IV.SIG TITRATE PRN Rx #:[id number] Tube Feeding 0 / 0 42 / 42 Tube Irrigant 160 / 160 30 / 30 Anesthesia Amount 50 / 50 Intake (Blood Product) Amt 400 / 400 0 / 0 Rbc As-3 Leukoreduced Unit 0 / 0 [id number] Rbc As-3 Leukoreduced Unit 400 / 400 [id number] Rbc As-3 Leukoreduced Unit 0 / 0 [id number] Output: Urine 0 / 0 Stool 350 / 350 60 / 60 Gastric Drainage 160 / 160 60 / 60 Pre-Hospital Jejunostomy Tube 10 / 10 Right Nare Nasogastric Tube 150 / 150 60 / 60 Wound Drainage 825 / 825 770 / 770 # 1 Right Abdomen 0 / 0 25 / 25 # 2 Right Abdomen 825 / 825 745 / 745 Chest Tube Drainage 640 / 640 20 / 20 #1 Left Pleural 640 / 640 20 / 20 Other: Date of Last Bowel Movement 12/13/17 12/14/17 12/11/17 07:40 Stool Stool Occult Blood (DEB) - Final Hemoccult positive 12/08/17 18:25 Fluid - Peritoneal fluid Gram Stain - Final 12/08/17 18:25 Fluid - Peritoneal fluid Body Fluid Culture - Final No growth in 72 hours (aerobically and anaerobically ) Lab - Hematology Results 12/12/17 12/13/17 12/13/17 23:30 03:17 10:10 WBC 18.6 H RBC 1.77 L Hgb 8.4 L 5.5 L* D Hct 24.4 L 16.1 L* MCV 90.7 MCH 30.9 MCHC 34.0 RDW 15.0 Plt Count 302 MPV 9.7 Haptoglobin 290 H 12/13/17 12/13/17 12/13/17 10:10 17:30 17:30 WBC 22.4 H RBC 2.95 L Hgb 9.6 L D 8.7 L 8.7 L Hct 28.4 L 25.7 L MCV 87.0 D MCH 29.5 MCHC 33.9 RDW 16.0 Plt Count 261 MPV 9.9 Haptoglobin 12/13/17 12/14/17 23:30 05:15 WBC 21.2 H RBC 2.60 L Hgb 8.4 L 7.9 L Hct 24.4 L 23.0 L MCV 88.4 MCH 30.4 MCHC 34.4 RDW 16.3 Plt Count 244 MPV 9.3 Haptoglobin Lab - Chemistry Results 12/12/17 12/12/17 12/12/17 12:03 17:32 20:00 Sodium Potassium Chloride Carbon Dioxide Anion Gap BUN Creatinine Estimated GFR POC Glucose 134 H 132 H 151 H Random Glucose Calcium Total Bilirubin AST ALT Alkaline Phosphatase Ammonia Lactate Dehydrogenase Total Protein Albumin 12/12/17 12/13/17 12/13/17 21:35 01:12 03:17 Sodium 139 Potassium 4.3 Chloride 98 Carbon Dioxide 25.8 Anion Gap 15 BUN 90 H Creatinine 5.77 H Estimated GFR 13 L POC Glucose 181 H Random Glucose 160 H Calcium 8.0 L Total Bilirubin 1.4 H AST 102 H ALT 133 H Alkaline Phosphatase 221 H Ammonia 23 Lactate Dehydrogenase Total Protein 5.9 L Albumin 1.8 L 12/13/17 12/13/17 12/13/17 08:14 10:10 12:51 Sodium Potassium Chloride Carbon Dioxide Anion Gap BUN Creatinine Estimated GFR POC Glucose 162 H 182 H Random Glucose Calcium Total Bilirubin AST ALT Alkaline Phosphatase Ammonia Lactate Dehydrogenase 443 H Total Protein Albumin 12/13/17 12/13/17 12/13/17 16:46 20:23 23:23 Sodium Potassium Chloride Carbon Dioxide Anion Gap BUN Creatinine Estimated GFR POC Glucose 141 H 129 H 124 H Random Glucose Calcium Total Bilirubin AST ALT Alkaline Phosphatase Ammonia Lactate Dehydrogenase Total Protein Albumin 12/14/17 12/14/17 12/14/17 03:48 05:15 08:51 Sodium 134 L Potassium 4.6 Chloride 95 L Carbon Dioxide 22.4 Anion Gap 17 H BUN 119 H Creatinine 6.98 H Estimated GFR 10 L POC Glucose 155 H 141 H Random Glucose 136 H Calcium 8.6 Total Bilirubin 1.7 H AST 118 H ALT 130 H Alkaline Phosphatase 232 H Ammonia Lactate Dehydrogenase Total Protein 6.0 L Albumin 1.7 L Imaging: ITS Impressions Head MRI 12/03/17 00:00 CONCLUSION: 1. Minimal nonspecific periventricular white matter changes. 2. No restricted diffusion to suggest an acute ischemic event. 3. No evidence for significant ischemic changes. Chest CT 12/04/17 00:06 CONCLUSION: 1. Left greater than right pleural effusions and basilar atelectasis. 2. No hemorrhage or hematoma demonstrated. 3. Distended and fluid-filled esophagus. No wall thickening. Patient is status post gastrectomy. Nasogastric tube is at the GE junction. 4. Body wall edema/anasarca. Abdomen X-Ray 12/08/17 00:00 CONCLUSION: 1. 2 left-sided abdominal catheters. 2. Nonspecific bowel gas pattern. GI Bleed Scan Nuclear Medicine 12/11/17 00:00 CONCLUSION: 1. Negative examination with no evidence of acute GI bleeding. Abdomen/Pelvis CT 12/13/17 00:00 CONCLUSION: 1. New proximal small bowel dilatation. No discrete transition point. Contrast is seen in the distal small bowel. Findings may represent ileus or partial obstruction. 2. Postsurgical findings with surgical drains in the left upper quadrant. Free fluid is seen in the left upper quadrant. Loculated rounded 5 cm area of fluid with thin peripheral enhancement also noted just inferior to the surgical drains. 3. Prominent left lower lobe pulmonary consolidation and small left pleural effusion. Chest X-Ray 12/14/17 10:25 CONCLUSION: Persistent left basilar airspace disease and underlying effusion. No significant change or improvement compared to earlier exam. Physical Exam: PHYSICAL EXAMINATION: GENERAL: Patient on the vent. Sedated. HEENT: Unable to fully assess. Mucosa is moist. NECK: Supple without adenopathy or swelling. LUNGS: Decreased breath sounds. Slight rhonchi bilateral. Left chest tube has serous drainage. HEART: Regular S1, S2. No audible murmur. ABDOMEN: Positive bowel sounds. ZAINAB drains x exits the RLQ abdomen and has serous drainage EXTREMITIES: No clubbing or cyanosis. Both upper extremities has nonpitting edema. SKIN: No diffuse rash. NEUROLOGIC: unable to assess, intubated. PSYCHIATRIC: Unable to assess. Assessment and Plan - Plan IMPRESSION: 1. Candidemia following gastric perforation and gastric ischemia. Blood culture at [facility] in [place] on 11/26 had Starr glabrata. Repeat blood culture is negative. 2. Status post abdominal surgery. 3. Acute respiratory failure. left pleural effusion. 4. Aspiration. 5. Acute kidney disease. 5. Recent cardiac arrest. 6. Leukocytosis. White blood cell count remains elevated. abx associated diarrhea, bowel wall thickening c.diff neg. RECOMMENDATIONS: 1. Continue micafungin for candidemia. 2. Continue piperacillin/tazobactam. 3. Continue to monitor white blood cell count. 4 Monitor temperature.
--- NOTE | 2017-12-14 13:27 | P.PNGI ---
Subjective Interval history: Intubated and mechanically ventilated Less drainage in rectal tube collection bag Post EGD colonoscopy <Karen Oliveira - Last Filed: 12/14/17 13:12> Physical Exam Vital signs: Vital Signs 12/13/17 13:15 12/13/17 13:30 12/13/17 13:45 Temperature 98.7 F Pulse Rate 99 H 101 H 103 H Respiratory Rate 31 H 35 H 38 H Blood Pressure Pulse Oximetry 100 100 100 12/13/17 14:00 12/13/17 14:15 12/13/17 14:30 Temperature Pulse Rate 102 H 110 H 115 H Respiratory Rate 36 H 31 H 25 H Blood Pressure Pulse Oximetry 100 100 100 12/13/17 14:45 12/13/17 15:00 12/13/17 15:15 Temperature Pulse Rate 108 H 112 H 110 H Respiratory Rate 29 H 22 23 Blood Pressure Pulse Oximetry 100 100 99 12/13/17 15:30 12/13/17 15:45 12/13/17 16:00 Temperature Pulse Rate 110 H 105 H 113 H Respiratory Rate 18 27 H 33 H Blood Pressure Pulse Oximetry 100 100 100 12/13/17 16:15 12/13/17 16:28 12/13/17 16:30 Temperature 97.1 F L Pulse Rate 110 H 103 H Respiratory Rate 30 H 19 25 H Blood Pressure Pulse Oximetry 100 100 100 12/13/17 18:00 12/13/17 19:00 12/13/17 20:00 Temperature 99.1 F Pulse Rate 103 H 102 H 97 H Respiratory Rate 24 21 Blood Pressure 163/68 H Pulse Oximetry 99 100 12/13/17 20:18 12/13/17 21:00 12/13/17 22:00 Temperature Pulse Rate 99 H 100 H 100 H Respiratory Rate 20 20 22 Blood Pressure Pulse Oximetry 100 100 12/13/17 23:00 12/13/17 23:34 12/14/17 00:00 Temperature 99.4 F Pulse Rate 103 H 102 H Respiratory Rate 20 20 20 Blood Pressure 163/65 H Pulse Oximetry 100 100 100 12/14/17 01:00 12/14/17 02:00 12/14/17 03:00 Temperature Pulse Rate 105 H 94 H 96 H Respiratory Rate 21 21 21 Blood Pressure Pulse Oximetry 100 100 100 12/14/17 03:48 12/14/17 04:00 12/14/17 05:00 Temperature 99.2 F Pulse Rate 98 H 97 H 96 H Respiratory Rate 20 22 21 Blood Pressure 159/61 H Pulse Oximetry 100 100 100 12/14/17 06:00 12/14/17 08:15 12/14/17 11:47 Temperature 98.8 F Pulse Rate 88 93 H 111 H Respiratory Rate 22 19 19 Blood Pressure Pulse Oximetry 100 100 100 12/14/17 12:02 Temperature Pulse Rate Respiratory Rate 23 Blood Pressure Pulse Oximetry 100 Intake & Output 12/13/17 12/14/17 12/14/17 18:59 06:59 18:59 Intake Total 1295 / 1295 2451 / 2451 750 / 750 Output Total 1974 910 / 910 Balance -680 / -680 1541 / 1541 750 / 750 Weight 84.2 kg Intake: IV 685 / 685 2379 / 2379 350 / 350 Versed Inj 50 mg In 50 ml @ 2 50 / 50 MG/HR 2 mls/hr IV.CONT TITRATE PRN Rx#:[id number] Protonix Inj 80 MG In NS Inj 84 / 84 100 ML @ 10 mls/hr IV.CONT CONT COLE Rx#:[id number] Diprivan 1000 mg/100 ml Inj 1, 200 / 200 000 mg In 100 ml @ 5 MCG/KG/MIN 2.859 mls/hr IV.CONT TITRATE PRN Rx#:[id number] Calcium Gluconate Inj 1 GM In 110 / 110 D5W Inj 100 ML @ 110 mls/hr IV. SIG ONCE ONE Rx#:[id number] Intralipid 20% Inj 250 ML @ 31. 250 / 250 25 mls/hr IV.SIG Q24H [facility] Rx#: [id number] Mycamine Inj 100 MG In NS Inj 100 / 100 100 / 100 100 ML @ 100 mls/hr IV.SIG Q24H [facility] Rx#:[id number] Zosyn 2.25 GM Premix 50 ML @ 100 / 100 100 / 100 100 mls/hr IV.SIG Q8H [facility] Rx#: [id number] NS Inj 250 ML @ 15 mls/hr IV. 75 / 75 SIG ONCE COLE Rx#:[id number] Sodium Chloride 23.4% Inj 5.5 1495 / 1495 MEQ Sodium Acetate Inj 29.5 MEQ KCl Inj 20 MEQ Calcium Chloride Inj 4.5 MEQ MVI-12 Inj 10 ML Folvite Inj 1 MG In Clinimix 5%/D20W Inj 2,000 ML @ 65 mls/hr IV.SIG Q24H [facility] Rx#: [id number] fentaNYL 10 mcg/mL Premix Drip 250 / 250 250 / 250 250 / 250 2,500 mcg In 250 ml @ 50 MCG/HR 5 mls/hr IV.SIG TITRATE PRN Rx #:[id number] Tube Feeding 0 / 0 42 / 42 Tube Irrigant 160 / 160 30 / 30 Anesthesia Amount 50 / 50 Intake (Blood Product) Amt 400 / 400 400 / 400 Rbc As-3 Leukoreduced Unit 0 / 0 [id number] Rbc As-3 Leukoreduced Unit 400 / 400 [id number] Rbc As-3 Leukoreduced Unit 400 / 400 [id number] Output: Urine 0 / 0 Stool 350 / 350 60 / 60 Gastric Drainage 160 / 160 60 / 60 Pre-Hospital Jejunostomy Tube 10 / 10 Right Nare Nasogastric Tube 150 / 150 60 / 60 Wound Drainage 825 / 825 770 / 770 # 1 Right Abdomen 0 / 0 25 / 25 # 2 Right Abdomen 825 / 825 745 / 745 Chest Tube Drainage 640 / 640 20 / 20 #1 Left Pleural 640 / 640 20 / 20 Other: Date of Last Bowel Movement 12/13/17 12/14/17 12/14/17 - Constitutional chronically ill appearing - Routine HEENT Exam Head: Present: normocephalic - Routine Respiratory Exam Present: patient mechanically ventilated - Routine Cardiovascular Exam Present: RRR - Routine Abdominal Exam Present: distended - Routine Extremities Exam Present: pulses intact. Absent: edema - Routine Skin Exam Present: dry, warm - Urinary Catheter Management Indwelling Temp Sensing Catheter Cath placed during this visit: no <Karen Oliveira - Last Filed: 12/14/17 13:12> Vital signs: Vital Signs 12/13/17 18:00 12/13/17 19:00 12/13/17 20:00 Temperature 99.1 F Pulse Rate 103 H 102 H 97 H Respiratory Rate 24 21 Blood Pressure 163/68 H Pulse Oximetry 99 100 12/13/17 20:18 12/13/17 21:00 12/13/17 22:00 Temperature Pulse Rate 99 H 100 H 100 H Respiratory Rate 20 20 22 Blood Pressure Pulse Oximetry 100 100 12/13/17 23:00 12/13/17 23:34 12/14/17 00:00 Temperature 99.4 F Pulse Rate 103 H 102 H Respiratory Rate 20 20 20 Blood Pressure 163/65 H Pulse Oximetry 100 100 100 12/14/17 01:00 12/14/17 02:00 12/14/17 03:00 Temperature Pulse Rate 105 H 94 H 96 H Respiratory Rate 21 21 21 Blood Pressure Pulse Oximetry 100 100 100 12/14/17 03:48 12/14/17 04:00 12/14/17 05:00 Temperature 99.2 F Pulse Rate 98 H 97 H 96 H Respiratory Rate 20 22 21 Blood Pressure 159/61 H Pulse Oximetry 100 100 100 12/14/17 06:00 12/14/17 07:00 12/14/17 08:00 Temperature 98.8 F Pulse Rate 88 89 93 H Respiratory Rate 22 22 21 Blood Pressure Pulse Oximetry 100 100 100 12/14/17 08:15 12/14/17 09:00 12/14/17 10:00 Temperature Pulse Rate 93 H 96 H 95 H Respiratory Rate 19 23 17 Blood Pressure Pulse Oximetry 100 100 100 12/14/17 11:00 12/14/17 11:47 12/14/17 12:00 Temperature 98.8 F 98.7 F Pulse Rate 109 H 111 H 112 H Respiratory Rate 19 19 26 H Blood Pressure Pulse Oximetry 100 100 100 12/14/17 12:02 12/14/17 13:00 12/14/17 14:00 Temperature Pulse Rate 121 H 119 H Respiratory Rate 23 21 21 Blood Pressure Pulse Oximetry 100 95 100 12/14/17 15:00 12/14/17 16:28 12/14/17 16:30 Temperature Pulse Rate 122 H 124 H Respiratory Rate 21 22 25 H Blood Pressure Pulse Oximetry 97 100 Intake & Output 12/13/17 12/14/17 12/14/17 18:59 06:59 18:59 Intake Total 1295 / 1295 2451 / 2451 950 / 950 Output Total 1974 910 / 910 Balance -680 / -680 1541 / 1541 950 / 950 Weight 84.2 kg Intake: IV 685 / 685 2379 / 2379 550 / 550 Versed Inj 50 mg In 50 ml @ 2 50 / 50 MG/HR 2 mls/hr IV.CONT TITRATE PRN Rx#:[id number] Protonix Inj 80 MG In NS Inj 84 / 84 100 / 100 100 ML @ 10 mls/hr IV.CONT CONT COLE Rx#:[id number] Diprivan 1000 mg/100 ml Inj 1, 200 / 200 100 / 100 000 mg In 100 ml @ 5 MCG/KG/MIN 2.859 mls/hr IV.CONT TITRATE PRN Rx#:[id number] Calcium Gluconate Inj 1 GM In 110 / 110 D5W Inj 100 ML @ 110 mls/hr IV. SIG ONCE ONE Rx#:[id number] Intralipid 20% Inj 250 ML @ 31. 250 / 250 25 mls/hr IV.SIG Q24H [facility] Rx#: [id number] Mycamine Inj 100 MG In NS Inj 100 / 100 100 / 100 100 ML @ 100 mls/hr IV.SIG Q24H [facility] Rx#:[id number] Zosyn 2.25 GM Premix 50 ML @ 100 / 100 100 / 100 100 mls/hr IV.SIG Q8H [facility] Rx#: [id number] NS Inj 250 ML @ 15 mls/hr IV. 75 / 75 SIG ONCE COLE Rx#:[id number] Sodium Chloride 23.4% Inj 5.5 1495 / 1495 MEQ Sodium Acetate Inj 29.5 MEQ KCl Inj 20 MEQ Calcium Chloride Inj 4.5 MEQ MVI-12 Inj 10 ML Folvite Inj 1 MG In Clinimix 5%/D20W Inj 2,000 ML @ 65 mls/hr IV.SIG Q24H [facility] Rx#: [id number] fentaNYL 10 mcg/mL Premix Drip 250 / 250 250 / 250 250 / 250 2,500 mcg In 250 ml @ 50 MCG/HR 5 mls/hr IV.SIG TITRATE PRN Rx #:[id number] Tube Feeding 0 / 0 42 / 42 Tube Irrigant 160 / 160 30 / 30 Anesthesia Amount 50 / 50 Intake (Blood Product) Amt 400 / 400 400 / 400 Rbc As-3 Leukoreduced Unit 0 / 0 [id number] Rbc As-3 Leukoreduced Unit 400 / 400 [id number] Rbc As-3 Leukoreduced Unit 400 / 400 [id number] Output: Urine 0 / 0 Stool 350 / 350 60 / 60 Gastric Drainage 160 / 160 60 / 60 Pre-Hospital Jejunostomy Tube Right Nare Nasogastric Tube 150 / 150 60 / 60 Wound Drainage 825 / 825 770 / 770 # 1 Right Abdomen 0 / 0 # 2 Right Abdomen 825 / 825 745 / 745 Chest Tube Drainage 640 / 640 #1 Left Pleural 640 / 640 Other: Date of Last Bowel Movement 12/13/17 12/14/17 12/14/17 - Urinary Catheter Management Indwelling Temp Sensing Catheter Cath placed during this visit: no <Maddi King - Last Filed: 12/14/17 16:36> Results - Labs CBC & Chem 7: 12/14/17 05:15 12/14/17 05:15 Laboratory Results - last 24 hr 12/04/17 12/12/17 12/13/17 10:46 23:30 04:10 WBC RBC Hgb 8.4 L Hct 24.4 L MCV MCH MCHC RDW Plt Count MPV Sodium Potassium Chloride Carbon Dioxide Anion Gap BUN Creatinine Estimated GFR POC Glucose Random Glucose Calcium Total Bilirubin AST ALT Alkaline Phosphatase Total Protein Albumin Blood Type Antibody Screen MTS Gel Crossmatch See Detail See Detail 12/13/17 12/13/17 12/13/17 16:46 17:30 17:30 WBC 22.4 H RBC 2.95 L Hgb 8.7 L 8.7 L Hct 25.7 L MCV 87.0 D MCH 29.5 MCHC 33.9 RDW 16.0 Plt Count 261 MPV 9.9 Sodium Potassium Chloride Carbon Dioxide Anion Gap BUN Creatinine Estimated GFR POC Glucose 141 H Random Glucose Calcium Total Bilirubin AST ALT Alkaline Phosphatase Total Protein Albumin Blood Type Antibody Screen MTS Gel Crossmatch 12/13/17 12/13/17 12/13/17 20:23 23:23 23:30 WBC RBC Hgb 8.4 L Hct 24.4 L MCV MCH MCHC RDW Plt Count MPV Sodium Potassium Chloride Carbon Dioxide Anion Gap BUN Creatinine Estimated GFR POC Glucose 129 H 124 H Random Glucose Calcium Total Bilirubin AST ALT Alkaline Phosphatase Total Protein Albumin Blood Type Antibody Screen MTS Gel Crossmatch 12/14/17 12/14/17 12/14/17 03:48 05:15 05:15 WBC 21.2 H RBC 2.60 L Hgb 7.9 L Hct 23.0 L MCV 88.4 MCH 30.4 MCHC 34.4 RDW 16.3 Plt Count 244 MPV 9.3 Sodium 134 L Potassium 4.6 Chloride 95 L Carbon Dioxide 22.4 Anion Gap 17 H BUN 119 H Creatinine 6.98 H Estimated GFR 10 L POC Glucose 155 H Random Glucose 136 H Calcium 8.6 Total Bilirubin 1.7 H AST 118 H ALT 130 H Alkaline Phosphatase 232 H Total Protein 6.0 L Albumin 1.7 L Blood Type Antibody Screen MTS Gel Crossmatch 12/14/17 12/14/17 12/14/17 08:51 09:05 13:08 WBC RBC Hgb Hct MCV MCH MCHC RDW Plt Count MPV Sodium Potassium Chloride Carbon Dioxide Anion Gap BUN Creatinine Estimated GFR POC Glucose 141 H 118 H Random Glucose Calcium Total Bilirubin AST ALT Alkaline Phosphatase Total Protein Albumin Blood Type A Positive Antibody Screen Negative MTS Gel Crossmatch See Detail - Imaging Impressions Abdomen/Pelvis CT 12/13/17 00:00 CONCLUSION: 1. New proximal small bowel dilatation. No discrete transition point. Contrast is seen in the distal small bowel. Findings may represent ileus or partial obstruction. 2. Postsurgical findings with surgical drains in the left upper quadrant. Free fluid is seen in the left upper quadrant. Loculated rounded 5 cm area of fluid with thin peripheral enhancement also noted just inferior to the surgical drains. 3. Prominent left lower lobe pulmonary consolidation and small left pleural effusion. Chest X-Ray 12/13/17 13:10 CONCLUSION: Slight left lung base atelectasis and/or infiltrate is seen. Chest X-Ray 12/14/17 06:00 CONCLUSION: Worsening consolidation within the left lung base with possible small pleural fluid component. Chest X-Ray 12/14/17 10:25 CONCLUSION: Persistent left basilar airspace disease and underlying effusion. No significant change or improvement compared to earlier exam. <Karen Oliveira - Last Filed: 12/14/17 13:12> - Labs CBC & Chem 7: 12/14/17 05:15 12/14/17 05:15 Laboratory Results - last 24 hr 12/04/17 12/12/17 12/13/17 10:46 23:30 04:10 WBC RBC Hgb 8.4 L Hct 24.4 L MCV MCH MCHC RDW Plt Count MPV Sodium Potassium Chloride Carbon Dioxide Anion Gap BUN Creatinine Estimated GFR POC Glucose Random Glucose Calcium Total Bilirubin AST ALT Alkaline Phosphatase Total Protein Albumin Blood Type Antibody Screen MTS Gel Crossmatch See Detail See Detail 12/13/17 12/13/17 12/13/17 16:46 17:30 17:30 WBC 22.4 H RBC 2.95 L Hgb 8.7 L 8.7 L Hct 25.7 L MCV 87.0 D MCH 29.5 MCHC 33.9 RDW 16.0 Plt Count 261 MPV 9.9 Sodium Potassium Chloride Carbon Dioxide Anion Gap BUN Creatinine Estimated GFR POC Glucose 141 H Random Glucose Calcium Total Bilirubin AST ALT Alkaline Phosphatase Total Protein Albumin Blood Type Antibody Screen MTS Gel Crossmatch 12/13/17 12/13/17 12/13/17 20:23 23:23 23:30 WBC RBC Hgb 8.4 L Hct 24.4 L MCV MCH MCHC RDW Plt Count MPV Sodium Potassium Chloride Carbon Dioxide Anion Gap BUN Creatinine Estimated GFR POC Glucose 129 H 124 H Random Glucose Calcium Total Bilirubin AST ALT Alkaline Phosphatase Total Protein Albumin Blood Type Antibody Screen MTS Gel Crossmatch 12/14/17 12/14/17 12/14/17 03:48 05:15 05:15 WBC 21.2 H RBC 2.60 L Hgb 7.9 L Hct 23.0 L MCV 88.4 MCH 30.4 MCHC 34.4 RDW 16.3 Plt Count 244 MPV 9.3 Sodium 134 L Potassium 4.6 Chloride 95 L Carbon Dioxide 22.4 Anion Gap 17 H BUN 119 H Creatinine 6.98 H Estimated GFR 10 L POC Glucose 155 H Random Glucose 136 H Calcium 8.6 Total Bilirubin 1.7 H AST 118 H ALT 130 H Alkaline Phosphatase 232 H Total Protein 6.0 L Albumin 1.7 L Blood Type Antibody Screen MTS Gel Crossmatch 12/14/17 12/14/17 12/14/17 08:51 09:05 13:08 WBC RBC Hgb Hct MCV MCH MCHC RDW Plt Count MPV Sodium Potassium Chloride Carbon Dioxide Anion Gap BUN Creatinine Estimated GFR POC Glucose 141 H 118 H Random Glucose Calcium Total Bilirubin AST ALT Alkaline Phosphatase Total Protein Albumin Blood Type A Positive Antibody Screen Negative MTS Gel Crossmatch See Detail Microbiology 12/07/17 10:10 Fluid - Pleural fluid Fungal Smear - Final No fungal elements seen 12/07/17 10:10 Fluid - Pleural fluid Fungal Culture - Preliminary No growth in 1 week 12/07/17 10:10 Fluid - Pleural fluid Acid Fast Bacilli Smear - Final No acid fast bacilli seen 12/07/17 10:10 Fluid - Pleural fluid Mycobacterial Culture - Preliminary No growth in 1 week - Imaging Impressions Chest X-Ray 12/14/17 06:00 CONCLUSION: Worsening consolidation within the left lung base with possible small pleural fluid component. Chest X-Ray 12/14/17 10:25 CONCLUSION: Persistent left basilar airspace disease and underlying effusion. No significant change or improvement compared to earlier exam. 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 Consult for possible lower GI bleeding- pt noted to have maroon colored stool Enteroscopy (12/11) S/P total gastrectomy, esophagojejunal anastomosis normal, some old blood, no fresh blood, no blood seen in jejunum NM bleeding scan (12/11) Negative CT abdomen/pelvis WO IV contrast (12/12) Postoperative abdomen appearance (12/12) Pt received 2 U PRBCs yesterday, H/H stable since last night. According to RN approximately 100 mL of liquid stool since last night. Family at bedside, agreeable to colonoscopy tomorrow. 12/13/17- Patient received 3 units prbc's this am. Pre- transfusion Hgb 5.5, HCT 16.1. Bedside RN reports large amount of maroon colored drainage noted in collection bag as well as large amount of leakage of melanotic stools around rectal tube. Abdomen firm and distended. BP 155/60, ST 118. Will check stat HH , EGD/ Colonoscopy today urgently, CT abdomen. (12/13/17)-Stat hemoglobin 9.6 hematocrit 28.4. 12/14/2017 WBC 21.2 hemoglobin 7.9 hematocrit 23.0. Maroon colored output markedly decreased in drainage collection bag. Patient currently receiving 1 unit of packed RBCs during hemodialysis. NG pulled back 6-800 mL by bedside RN to avoid irritation to area of anastomosis. 12/13/2017 EGD revealed the following findings--> 1. S/p total gastrectomy some small amount of bleeding at esophagojejunal anastomosis -s/p cautery with gold probe, 2 clips plied, epinephrin 1:10,000 2 cc injected some blood in jejunum 2. Retroflexion was not performed 12/13/2017 colonoscopy revealed the following--> 1. Old blood to cecum, no active bleeding 2. Retroflexed views revealed internal hemorrhoids 3. Retroflexed views revealed small internal hemorrhoids 4. Was performed 5. Revealed hemorrhoids Plan -Monitor for active bleeding -Monitor hemoglobin and hematocrit -Transfuse if needed to keep hemoglobin greater than 8 -Pantoprazole drip -Supportive care -Further recommendations to follow Pt has been seen and examined by myself and Dr. King and this note is written on her behalf - Attending Attestation Dr. King <Karen Oliveira - Last Filed: 12/14/17 13:12> (1) Anemia Status: Acute Code(s): D64.9 - Anemia, unspecified - Attending Attestation seen, examined agree with above if further bleeding repeat bleeding scan, may need angiogram ok to start tf <Maddi King - Last Filed: 12/14/17 16:36>
[2017-12-14 17:59] LABS: Hematocrit 26.1 % (39.0-51.0)
[2017-12-15 00:40] LABS: Hematocrit 22.4 % (39.0-51.0); Hemoglobin 7.8 gm/dL (13.0-17.0)
[2017-12-15] MEDS: Insulin NovoLOG Aspart Correctional Sugar Inj SQ SCH ×6 (01:06→21:04)
[2017-12-15] MEDS: Oral Hygiene Kit OROPHARYNG SCH ×4 (01:06→16:02)
[2017-12-15] MEDS: Pantoprazole Inj 80 MG in Sodium Chlor 0.9% Inj 100 ML IV.CONT SCH ×3 (01:46→22:55)
[2017-12-15] MEDS ORDERED: Sodium Chlor 0.9% Inj 250 ML IV.SIG SCH ×2 (02:00→08:00)
[2017-12-15 02:04] LABS: Prothrombin Time 10.4 sec (9.8-11.6)
[2017-12-15] MEDS: Labetalol HCl Inj 100 MG/20 ML Vial IV.PUSH PRN (04:58)
[2017-12-15] MEDS: Piperacil/Tazo 2.25 GM Premix 50 ML IV.SIG SCH ×3 (05:30→21:34)
[2017-12-15 05:57] LABS: Hematocrit 22.3 % (39.0-51.0); Hemoglobin 7.9 gm/dL (13.0-17.0); Mean Corpuscular HGB Conc 35.5 % (32.0-36.0); Mean Corpuscular Hemoglobin 30.6 pg (27.0-34.0); Mean Corpuscular Volume 86.1 fL (80.0-100.0); Mean Platelet Volume 9.3 fL (7.0-11.0); Platelet Count 206 th/mm3 (150-450); Red Blood Count 2.59 mil/mm3 (4.50-5.90); Red Cell Distribution Width 15.6 % (11.6-17.2); White Blood Count 17.2 th/mm3 (4.0-11.0)
[2017-12-15 06:44] LABS: Alanine Aminotransferase 138 U/L (12-78); Albumin 1.4 g/dL (3.4-5.0); Alkaline Phosphatase 297 U/L (45-117); Anion Gap 13 meq/L (5-15); Aspartate Aminotransferase 121 U/L (15-37); Blood Urea Nitrogen 73 mg/dL (7-18); Calcium 7.8 mg/dL (8.5-10.1); Carbon Dioxide 24.7 meq/L (21.0-32.0); Chloride 103 meq/L (98-107); Glomerular Filtration Rate 15 mL/min (>89); Glucose,Random 126 mg/dL (74-106); Phosphorus 4.6 mg/dL (2.5-4.9); Potassium 3.7 meq/L (3.5-5.1); Sodium 141 meq/L (136-145); Total Protein 5.4 g/dL (6.4-8.2)
--- NOTE | 2017-12-15 08:09 | P.PNCC ---
Subjective Subjective Remarks/Hospital Course: Patient was recently admitted to [facility] 11/22 and transferred to [facility] 11/26/17 after the following hospital course: 47-year-old -[place] male with reportedly no past medical or past surgical history who was admitted to hospitalist service 11/22/17 after presenting with abdominal pain, nausea, vomiting. He had CT abd/pelvis with massive gastric distention. NG tube had been placed. I was called to patient's bedside for CODE BLUE PEA arrest. CPR was ongoing and patient had massive abdominal distension and gastric regurgitant in the airway. He was emergently intubated and large amount of gastric secretions suctioned from oropharynx. After 21 minutes of CPR, ROSC was obtained and he was profoundly hypotensive. Continued aggressive fluid resuscitation and initiated dopamine. He was transferred to [facility] where CVL and R radial art line were placed and he was given 7 L of crystalloid and albumin. CXR demonstrated pneumoperitoneum and Dr. Martin Gudino was called emergently and he immediately contacted OR for emergent ex lap. He had intraabdominal hypertension with IAP of 40 mmHg, though fortunately was able to be ventilated adequately after rocuronium 50 mg IV and was transferred to OR. Dr. Martin Gudino took to the operating room early in the morning on 11/23 and discovered tension pneumoperitoneum, massive gastric distension, ischemia of the proximal 2/3 of the stomach and large gastric perforation with massive intraperitoneal contamination with food particles. Dr. Isaacs placed 2 NGT and decompressed 2 L of succus. Patient had initial improvement in vital signs in the immediate postoperative period, however he subsequently became hypotensive requiring upward titration of levophed and addition of vasopressin and stress dose hydrocortisone. He remains on levophed 10 mcg/min, neosynephrine 80 mcg/ min, vasopressin 0.04 units/min with overall vasopressor requirement weaning overnight. He is oliguric and creatinine is continuing to climb. He was given 2 L of crystalloid and albumin overnight. He does have significant fluid losses with combination of abdominal dressing and NGT output, so I will give an additional L of crystalloid now to monitor hourly response as he certainly does not appear volume overloaded. Nonetheless Flotrac numbers are suggesting adequate volume status and we may be seeing the consequence of ischemic ATN. May ultimately require HD, however not at this time. Abdomen remains open and plan is to re-explore 11/25. 11/25: Patient has acceptable hemodynamics by Flotrac but remains septic with requirements for phenylephrine 200 mics per minute, Levophed 8 mics per minute and vasopressin 0.04 units/min for blood pressure support. This has improved overnight and the Bhavesh-Synephrine support has been weaned off completely. Acid base balance is acceptable. ATN has developed which will undoubtedly require hemodialysis. Potassium level is normal. He is at increased risk for an anesthetic now but there is an urgent need to check for residual gastric necrosis. 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 Since the source control surgery, the maintenance of normal acid-base balance has been less difficult. Patient remains anuric with a rising creatinine above 6.0. He is clearly ahead on volume and will benefit from dialysis. A 2 lumen hemodialysis catheter was placed on 11/25 and has been packed with dilute heparin solution. The right internal jugular central line is been in place for 4 days and accessed multiple times. The femoral art line has been in for 4 days. Shock liver was apparent after the cardiac arrest reflecting a transaminitis, elevated bilirubin, and prolonged INR. The INR has remained normal following the transfusion of 4 units of fresh frozen plasma prior to surgery yesterday. A 10% dextrose infusion continues because of ongoing problems with hypoglycemia. Thrombocytopenia at 37,000 persists. He has remained on antibiotic coverage with Pipracil/tazobactam and fungal coverage with fluconazole, all adjusted for renal failure. Present vasopressor requirements include levophed at 7 mics per minute and vasopressin at 0.04 units/min. The chest x-ray is consistent with minor aspiration at the time of his preoperative cardiac arrest on the floor and cultures have subsequently grown Klebsiella, pansensitive. The operative note will clarify the extent of the surgery but in essence the distal esophagus is stapled off and marked with 2 Prolene sutures. The antrum of the stomach is oversewn. Most of the stomach has been removed. The abdomen is open with a VAC dressing applied. Subjective: 11/29: Bowel was in discontinuity following subtotal gastrectomy and patient was transferred to [facility]. On reexploration 11/28 he underwent Dinh-en-y esophagojejunostomy, feeding jejunostomy placement, diagnostic EGD, primary fascial closure. Wound vac was applied to abdomen (though currently wet to dry dressing in place upon arrival). He was reportedly found to have candidemia and was started on micafungin and has undergone ophtho eval. Lines including CVL, Vascath and art line have all been changed at [facility] (though not clear when). He remains on mechanical ventilation and has been weaned off pressors. He was found to have BUE DVTs and is on heparin drip. He is on TPN and has been started on trickle tube feeds with Nepro via jejunostomy. NGT is to [facility]. He underwent HD postoperatively on 11/28. He has now been transferred back to [facility] for ongoing management. I have updated his father and stepmother. 11/30: Patient re-admitted s/p transfer from [facility] overnight, otherwise no acute issues. Scheduled to undergo HD today. 12/01: T-max 101.7, leukocytosis to 27,000 with bandemia. Now 3 days following Dinh-en-Y reconstruction of GI tract following sub-total gastrectomy for gastric necrosis. All new lines placed after diagnosis of candidemia. TPN infusing, jejunostomy at trickle flow and can be increased slowly per general surgery. 12/02: Marked leukocytosis with bandemia persists. Afebrile over last 24 hours. Leave NG tube across the esophageal anastomosis and surgical service will direct timing of contrast study about 7 days following surgery. Continue with spontaneous breathing trials. 12/03: extubated yesterday. since then, has not followed commands, and does not talk. appears to have clinically an aphasia, although his uremia or severe hypoactive delirium could present this way. purposeful movements. will obtain MRI to rule out acute ischemia, as this appears to be a new mental status change (11/29 /[facility] notes state interactive on ventilator). 12/04: reintubated overnight: more output from ZAINAB drains. hgb dropped to 7 this AM: receiving 1 unit prbc. MRI negative for acute change. EEG ordered today to rule out subclinical status epilepticus. also concern overnight for aspiration event. 12/05: T-max 99. WBC 24,000. Reintubated yesterday for respiratory failure probably related to aspiration. Trickle feeding continues through jejunostomy. Nasogastric tube is through the anastomosis and is to low intermittent. 12/06: Afebrile. WBC 26,000. Bandemia has largely resolved. There are bilateral pleural effusions which may need to be tapped to rule out infection or leak. Both lower lobes are consolidated on CAT scan, probably representing compressive atelectasis from the effusions. 12/07: White count remains elevated at 25,000. Total parenteral nutrition infusing and tolerated. Altered mental status persists, possibly related to the cardiac arrest on the floor prior to transfer to the ICU. 12/08: Tolerating total parenteral nutrition with good glucose control. Leukocytosis persists. Fluid tap from left chest bit cloudy, cultures pending. Maintaining adequate gas exchange on lower levels of fractional inspired oxygen. Aim for extubation trial again soon. 12/09: Patient considerably less edematous over the past several days following successful dialysis runs. Continually fails attempts at weaning parameters and desaturation. Left chest drainage is no growth by culture. White blood cell count remains elevated. 12/10: Remains intubated. WBC count elevated but stable. Left chest tube with 260 mL output in 24 hours. BUN/creatinine remains elevated 12/11: Remains intubated sedated hemoglobin dropped to 5.8 today. RN has noted lower GI bleed. Protonix IV every 12 started and GI consulted. Transfuse 2 units PRBC. Keep n.p.o. discussed with Dr. Wellington 12/12: Patient remains intubated sedated for vent synchrony. Hemoglobin stable 7.5. Endoscopy negative yesterday CT abdomen pelvis no active bleeding. Hemodynamically remained stable. Receiving hemodialysis at this time. Left chest tube with high output 450 mL in 24 hours. Attempt weaning trials starting today 12/13: Patient continues to lose blood. Hemoglobin 5.5. Plan to get colonoscopy today. Continues to have melanotic stools. The night RN aspirated blood from jejunostomy tube. Enteroscopy yesterday was unremarkable. Transfusing 3 units of PRBC repeat hemoglobin at 2 PM. No significant bloody output from ZAINAB drains. Will discuss with general surgery 12/14: Remains intubated sedated hemoglobin 7.9 today 1 unit PRBC ordered. Can melanotic stools or NG tube coffee-ground today. EGD yesterday showed friable mucosa at the esophageal anastomotic junction which was injected by GI. Otherwise endoscopies including colonoscopies unremarkable. Hemodynamically remained stable. Discussed extensively with GI and general surgery yesterday 12/15: Patient continues to have significant melanotic stools. Hemoglobin dropped to 7.8 and patient received 1 unit PRBC follow-up hemoglobin only 7.9. Additional 1 unit PRBC ordered. Status post EGD colonoscopy-essentially unremarkable except irritation at the esophageal anastomotic site. Bleeding is most likely small intestinal Objective Vital Signs / I&O: Vital Signs 12/14/17 08:00 12/14/17 08:15 12/14/17 09:00 Temperature 98.8 F Pulse Rate 93 H 93 H 96 H Respiratory Rate 21 19 23 Blood Pressure Pulse Oximetry 100 100 100 12/14/17 10:00 12/14/17 11:00 12/14/17 11:47 Temperature 98.8 F Pulse Rate 95 H 109 H 111 H Respiratory Rate 17 19 19 Blood Pressure Pulse Oximetry 100 100 100 12/14/17 12:00 12/14/17 12:02 12/14/17 12:48 Temperature 98.7 F 100.2 F H Pulse Rate 112 H 117 H Respiratory Rate 26 H 23 19 Blood Pressure 164/71 H Pulse Oximetry 100 100 100 12/14/17 13:00 12/14/17 14:00 12/14/17 15:00 Temperature Pulse Rate 121 H 119 H 122 H Respiratory Rate 21 21 21 Blood Pressure Pulse Oximetry 95 100 97 12/14/17 16:00 12/14/17 16:28 12/14/17 16:30 Temperature 98.1 F Pulse Rate 121 H 124 H Respiratory Rate 33 H 22 25 H Blood Pressure Pulse Oximetry 100 100 12/14/17 17:00 12/14/17 18:00 12/14/17 19:00 Temperature Pulse Rate 122 H 132 H 130 H Respiratory Rate 33 H 25 H 19 Blood Pressure Pulse Oximetry 100 100 98 12/14/17 20:00 12/14/17 20:35 12/14/17 20:39 Temperature 100.1 F H Pulse Rate 128 H 124 H Respiratory Rate 20 19 20 Blood Pressure 148/64 H Pulse Oximetry 100 100 12/14/17 21:00 12/14/17 22:00 12/14/17 22:17 Temperature Pulse Rate 123 H 124 H Respiratory Rate 20 20 20 Blood Pressure Pulse Oximetry 100 100 100 12/14/17 23:00 12/15/17 00:00 12/15/17 01:00 Temperature 100.2 F H Pulse Rate 119 H 118 H 119 H Respiratory Rate 19 18 19 Blood Pressure 163/70 H Pulse Oximetry 100 100 100 12/15/17 01:36 12/15/17 02:00 12/15/17 03:00 Temperature 100.2 F H Pulse Rate 119 H 117 H 130 H Respiratory Rate 18 21 18 Blood Pressure Pulse Oximetry 100 100 100 12/15/17 04:00 12/15/17 05:07 12/15/17 06:00 Temperature 99.8 F H Pulse Rate 114 H 101 H 104 H Respiratory Rate 18 22 Blood Pressure Pulse Oximetry 100 Intake & Output 12/14/17 12/15/17 12/15/17 18:59 06:59 18:59 Intake Total 1148 / 1148 2882 / 2882 Output Total 70258 / 81898 2218 / 2218 Balance -9096 / -9096 664 / 664 Weight 79.9 kg Intake: IV 550 / 550 2125 / 2125 Protonix Inj 80 MG In NS Inj 100 / 100 100 / 100 100 ML @ 10 mls/hr IV.CONT CONT COLE Rx#:[id number] Diprivan 1000 mg/100 ml Inj 1, 100 / 100 100 / 100 000 mg In 100 ml @ 5 MCG/KG/MIN 2.859 mls/hr IV.CONT TITRATE PRN Rx#:[id number] Intralipid 20% Inj 250 ML @ 31. 250 / 250 25 mls/hr IV.SIG Q24H COLE Rx#: [id number] Mycamine Inj 100 MG In NS Inj 100 / 100 100 ML @ 100 mls/hr IV.SIG Q24H COLE Rx#:[id number] Zosyn 2.25 GM Premix 50 ML @ 50 / 50 100 mls/hr IV.SIG Q8H COLE Rx#: [id number] NS Inj 250 ML @ 15 mls/hr IV. 65 / 65 SIG ONCE COLE Rx#:[id number] Sodium Chloride 23.4% Inj 5.5 1310 / 1310 MEQ Sodium Acetate Inj 29.5 MEQ KCl Inj 20 MEQ Calcium Chloride Inj 4.5 MEQ MVI-12 Inj 10 ML Folvite Inj 1 MG In Clinimix 5%/D20W Inj 2,000 ML @ 65 mls/hr IV.SIG Q24H COLE Rx#: [id number] fentaNYL 10 mcg/mL Premix Drip 250 / 250 250 / 250 2,500 mcg In 250 ml @ 50 MCG/HR 5 mls/hr IV.SIG TITRATE PRN Rx #:[id number] Tube Feeding 198 / 198 327 / 327 Tube Irrigant 30 / 30 Intake (Blood Product) Amt 400 / 400 400 / 400 Rbc As-3 Leukoreduced Unit 400 / 400 [id number] Rbc As-3 Leukoreduced Unit 400 / 400 [id number] Output: Stool 600 / 600 1500 / 1500 Hemodialysis Amount 9000 / 9000 Wound Drainage 600 / 600 600 / 600 # 1 Right Abdomen 0 / 0 0 / 0 # 2 Right Abdomen 600 / 600 600 / 600 Chest Tube Drainage 44 44 118 / 118 #1 Left Pleural 44 118 / 118 Other: Date of Last Bowel Movement 12/14/17 12/15/17 Result Diagrams: 12/15/17 05:40 12/15/17 05:40 Objective Remarks: GEN: Chronically ill-appearing, sedated for vent synchrony HEENT: NCAT, pupils 3 mm and reactive bilaterally NECK: RIJ vasc-cath and LIJ TLC present, clean/ dry/ intact CARDIO: NSR, regular rhythm, no JVD PULM: prvc, fio2 35%. equal chest rise. Scattered rhonchi persist, decreased breath sounds both bases. L pigtail in place ABD: Midline surgical bandages clean/ dry/ intact. ZAINAB #1 is anterior to esophagojejunostomy anastomosis, ZAINAB #2 posterior, both with serosanguineous drainage. Abdomen soft. Large amount of melanotic stools SKIN: No rashes or lesions, dry NEURO: Moves 4 limbs spontaneously. Purposeful with arms, tracks with eyes. Intermittently follow commands, more lethargic today. Opens eyes to voice. Assessment and Plan - Problem List (1) Gastric perforation Code(s): K25.5 - Chronic or unspecified gastric ulcer with perforation Status : Resolved (2) Status post total gastrectomy and Dinh-en-Y esophagojejunal anastomosis Code(s): Z90.3 - Acquired absence of stomach [part of]; Z98.0 - Intestinal bypass and anastomosis status Status: Acute (3) Ischemic hepatitis Code(s): K75.9 - Inflammatory liver disease, unspecified Status: Acute (4) Gastric necrosis Code(s): K31.89 - Other diseases of stomach and duodenum Status: Resolved (5) Thrombocytopenia Code(s): D69.6 - Thrombocytopenia, unspecified Status: Acute (6) Acute bilateral deep vein thrombosis (DVT) of upper extremities Code(s): I82.623 - Acute embolism and thrombosis of deep veins of upper extremity, bilateral Status: Acute (7) Anemia Code(s): D64.9 - Anemia, unspecified Status: Acute (8) Leukocytosis Code(s): D72.829 - Elevated white blood cell count, unspecified Status: Acute (9) Candidemia Code(s): B37.7 - Candidal sepsis Status: Acute (10) On total parenteral nutrition (TPN) Code(s): Z78.9 - Other specified health status Status: Acute (11) Hx of cardiac arrest Code(s): Z86.74 - Personal history of sudden cardiac arrest Status: Resolved (12) Acute hemodialysis patient Code(s): Z99.2 - Dependence on renal dialysis Status: Acute (13) JACLYN (acute kidney injury) Code(s): N17.9 - Acute kidney failure, unspecified Status: Acute (14) Aspiration pneumonia Code(s): J69.0 - Pneumonitis due to inhalation of food and vomit Status: Acute (15) Acute respiratory failure Code(s): J96.00 - Acute respiratory failure, unspecified whether with hypoxia or hypercapnia Status: Acute - Assessment and Plan Plan: NEURO: Acute metabolic encephalopathy On Fentanyl/versed drips for sedation, pain control On sedation lightening patient starting to follow commands RESP: Acute respiratory failure Left pleural effusion PRVC, Ventilator Bundle No spontaneous breathing trial today due to active GI bleed Scheduled and as needed breathing treatments Spontaneous breathing trials as tolerated, too unstable for extubation Left pigtail chest tube to wall suction CV: Cardiac arrest 11/23/17 (PEA arrest due to shock secondary to acute gastric perf and tension pneumoperitoneum) Septic shock, resolved Now off pressors. Hemodynamic monitoring Use as needed medication for hypertension Fluid removal with hemodialysis GI: s/p anterior gastric perforation with tension pneumoperitoneum status post ex lap with primary repair with stapler 11/23 On second look 11/25 he was found to have gastric necrosis requiring subtotal gastrectomy and placement of AB Thera VAC dressing. The bowel was in discontinuity and he was transferred to [facility]. On 11/28 he underwent reexploration with Dinh-en-y esophagojejunostomy, feeding jejunostomy placement, diagnostic EGD, primary fascial closure. Gastric necrosis , Ischemic hepatopathy GIB with blood loss anemia NGT to LIWS, leave above esophageal anastomosis to avoid irritation Continues to have significant melanotic stools, transfusing 2 units PRBC Has feeding jejunostomy and tube feeds with Nepro 10 mL resumed EGD, enteroscopy 12/12/2017 unremarkable, colonoscopy 12/13/2017 unremarkable ZAINAB drains in place #1 anterior to anastomosis, #2 posterior to the anastomosis. Management per general surgery. Continue TPN renal formula 35 mL/hr. Intermittent lipids daily. Wean TPN while advancing tube feeds wound vac was in place at outside hospital, currently wet to dry dressings in place upon arrival. Dr. Wellington general surgery following Had right upper quadrant ultrasound on 11/27/17 that demonstrated contracted gallbladder with sludge. No evidence of cholecystitis. Echogenicity in right liver related to focal fatty change or altered perfusion, patent vascularity. Protonix GTT FEN/RENAL: JACLYN secondary to ischemic ATN HD as started 11/26 at [place]. Has R IJ Vascath. Monitor I/O and electrolytes. Nephrology following ID: Gastric perforation with large amount particulate peritoneal contamination 11/23 Acute Aspiration pneumonia Candidemia (C Glabrata 11/26 at culture) Patient had been on micafungin 100 mg IV daily (started at ) with last administration at 10 AM on 11/29. Was previously on Diflucan IV. On Zosyn 2.25 IV every 8 hours with last administration 11/29 at noon. Continue zosyn/micafungin. ID following Dr. Millan Patient evaluated by ophthalmology prior to transfer. Do not see an ophthalmology note in the transfer documentation, requested document. Requested culture data from [facility]. Follow-up cultures here Sputum culture 11/24 with pansensitive Klebsiella pneumonia HEME: Anemia requiring transfusion Thrombocytopenia-resolved Bilateral upper extremity DVTs Transfuse 3 units PRBC 12/13, transfuse 1 unit PRBC 12/14/2017, 2U 12/15. GI workup as above. U/s 11/26 BUE - thrombus R axillary, brachial and basilic veins and thrombus in left axillary and left brachial veins. U/s bilateral lower extremities 11/26 at [facility] negative from common femoral to popliteal vein levels. Arrived on heparin drip, due to GI bleed and anemia all anticoagulation is being held Hematology consult was obtained at [facility] and recommended heparin drip and transfuse prn for platelets <50k. ENDO: Monitor Glucose q4 hours and use low dose insulin sliding scale as indicated. PROPH: s/q heparin held due to blood loss anemia, GIB. Protonix for stress ulcer prophylaxis. DVT prophylaxis. ACCESS: R IJ vascath , L IJ CVL. All existing lines were replaced at [facility]. Left IJ line accidentally was dislodged 12/23/2017, new left IJ line placed FULL CODE Critical care 35 minutes Remains very critical with continued GI bleed and anemia requiring transfusion. We are unable to find the source of bleed at this time which makes it difficult to manage. Most likely small intestinal bleeding. Will discuss again with GI and general surgery (6) Acute bilateral deep vein thrombosis (DVT) of upper extremities Qualifiers: Affected thrombotic vein of extremity: brachial Qualified Code(s): I82.623 - Acute embolism and thrombosis of deep veins of upper extremity, bilateral (15) Acute respiratory failure Qualifiers: Respiratory failure complication: hypoxia Qualified Code(s): J96.01 - Acute respiratory failure with hypoxia
[2017-12-15] MEDS: Calcium Acetate 667 MG Capsule PO SCH ×3 (09:12→17:25)
[2017-12-15] MEDS: hydrALAZINE 50 MG Tablet PO SCH ×3 (09:12→17:24)
[2017-12-15] MEDS: Chlorhexidine 0.12% Oral Kit 15 ML UDC OROPHARYNG SCH ×2 (09:13→21:05)
[2017-12-15] MEDS: fentaNYL 10 mcg/mL Premix Drip 2,500 MCG/250 ML BAG IV.SIG PRN ×3 (10:00→21:39)
[2017-12-15 11:52] LABS: Hematocrit 25.3 % (39.0-51.0); Hemoglobin 8.7 gm/dL (13.0-17.0)
--- NOTE | 2017-12-15 12:02 | P.PNGI ---
Subjective Interval history: Seen in the intensive care setting on vent opens eyes and tracks with voice and people Family members present, change in hemoglobin for possible GI bleed noted initially hemoglobin 9 now 7.8 and WBC count 17.2 which is mildly decreased, NG tube does have dark possible maroon and coffee-ground emesis, rectal tube dark possible melena stools versus some maroon tendencies Physical Exam Vital signs: Vital Signs 12/14/17 12:00 12/14/17 12:02 12/14/17 12:48 Temperature 98.7 F 100.2 F H Pulse Rate 112 H 117 H Respiratory Rate 26 H 23 19 Blood Pressure 164/71 H Pulse Oximetry 100 100 100 12/14/17 13:00 12/14/17 14:00 12/14/17 15:00 Temperature Pulse Rate 121 H 119 H 122 H Respiratory Rate 21 21 21 Blood Pressure Pulse Oximetry 95 100 97 12/14/17 16:00 12/14/17 16:28 12/14/17 16:30 Temperature 98.1 F Pulse Rate 121 H 124 H Respiratory Rate 33 H 22 25 H Blood Pressure Pulse Oximetry 100 100 12/14/17 17:00 12/14/17 18:00 12/14/17 19:00 Temperature Pulse Rate 122 H 132 H 130 H Respiratory Rate 33 H 25 H 19 Blood Pressure Pulse Oximetry 100 100 98 12/14/17 20:00 12/14/17 20:35 12/14/17 20:39 Temperature 100.1 F H Pulse Rate 128 H 124 H Respiratory Rate 20 19 20 Blood Pressure 148/64 H Pulse Oximetry 100 100 12/14/17 21:00 12/14/17 22:00 12/14/17 22:17 Temperature Pulse Rate 123 H 124 H Respiratory Rate 20 20 20 Blood Pressure Pulse Oximetry 100 100 100 12/14/17 23:00 12/15/17 00:00 12/15/17 01:00 Temperature 100.2 F H Pulse Rate 119 H 118 H 119 H Respiratory Rate 19 18 19 Blood Pressure 163/70 H Pulse Oximetry 100 100 100 12/15/17 01:36 12/15/17 02:00 12/15/17 03:00 Temperature 100.2 F H Pulse Rate 119 H 117 H 130 H Respiratory Rate 18 21 18 Blood Pressure Pulse Oximetry 100 100 100 12/15/17 04:00 12/15/17 05:07 12/15/17 06:00 Temperature 99.8 F H Pulse Rate 114 H 101 H 104 H Respiratory Rate 18 22 Blood Pressure Pulse Oximetry 100 12/15/17 08:58 12/15/17 09:08 12/15/17 09:10 Temperature 99.4 F Pulse Rate 111 H 111 H Respiratory Rate 19 18 19 Blood Pressure Pulse Oximetry 100 100 Intake & Output 12/14/17 12/15/17 12/15/17 18:59 06:59 18:59 Intake Total 1148 / 1148 2932 / 2932 650 / 650 Output Total 74135 / 40147 2218 / 2218 Balance -9096 / -9096 714 / 714 650 / 650 Weight 79.9 kg Intake: IV 550 / 550 2175 / 2175 Protonix Inj 80 MG In NS Inj 100 / 100 100 / 100 100 ML @ 10 mls/hr IV.CONT CONT COLE Rx#:[id number] Diprivan 1000 mg/100 ml Inj 1, 100 / 100 100 / 100 000 mg In 100 ml @ 5 MCG/KG/MIN 2.859 mls/hr IV.CONT TITRATE PRN Rx#:[id number] Intralipid 20% Inj 250 ML @ 31. 250 / 250 25 mls/hr IV.SIG Q24H COLE Rx#: [id number] Mycamine Inj 100 MG In NS Inj 100 / 100 100 ML @ 100 mls/hr IV.SIG Q24H COLE Rx#:[id number] Zosyn 2.25 GM Premix 50 ML @ 100 / 100 100 mls/hr IV.SIG Q8H COLE Rx#: [id number] NS Inj 250 ML @ 15 mls/hr IV. 65 / 65 SIG ONCE COLE Rx#:[id number] Sodium Chloride 23.4% Inj 5.5 1310 / 1310 MEQ Sodium Acetate Inj 29.5 MEQ KCl Inj 20 MEQ Calcium Chloride Inj 4.5 MEQ MVI-12 Inj 10 ML Folvite Inj 1 MG In Clinimix 5%/D20W Inj 2,000 ML @ 65 mls/hr IV.SIG Q24H COLE Rx#: [id number] fentaNYL 10 mcg/mL Premix Drip 250 / 250 250 / 250 2,500 mcg In 250 ml @ 50 MCG/HR 5 mls/hr IV.SIG TITRATE PRN Rx #:[id number] Tube Feeding 198 / 198 327 / 327 Tube Irrigant Other 250 / 250 Rbc As-3 Leukoreduced Unit 250 / 250 [id number] Intake (Blood Product) Amt 400 / 400 400 / 400 400 / 400 Rbc As-3 Leukoreduced Unit 400 / 400 [id number] Rbc As-3 Leukoreduced Unit 400 / 400 [id number] Rbc As-3 Leukoreduced Unit 400 / 400 [id number] Output: Stool 600 / 600 1500 / 1500 Hemodialysis Amount 9000 / 9000 Wound Drainage 600 / 600 600 / 600 # 1 Right Abdomen 0 / 0 0 / 0 # 2 Right Abdomen 600 / 600 600 / 600 Chest Tube Drainage 118 / 118 #1 Left Pleural 118 / 118 Other: Other Intake Source Rbc As-3 Leukoreduced Unit Saline Solution [id number] Date of Last Bowel Movement 12/14/17 12/15/17 12/15/17 - Constitutional moderate distress, cooperative, somnolent - Routine HEENT Exam Head: Present: normocephalic (Multiple IV lines including ventilator management) ENT: Present: mucous membranes moist - Routine Respiratory Exam Present: patient mechanically ventilated, decreased breath sounds - Routine Cardiovascular Exam Present: S1, S2, tachycardia - Routine Abdominal Exam Present: firm (Talked), wound (Abdominal wound, mild distention, no obvious bowel sounds) - Routine Skin Exam Present: pallor - Urinary Catheter Management Indwelling Temp Sensing Catheter Cath placed during this visit: no Results - Labs CBC & Chem 7: 12/16/17 04:44 12/16/17 04:44 Laboratory Results - last 24 hr 12/04/17 12/14/17 12/14/17 10:46 09:05 13:08 WBC RBC Hgb Hct MCV MCH MCHC RDW Plt Count MPV PT INR APTT Fibrinogen Sodium Potassium Chloride Carbon Dioxide Anion Gap BUN Creatinine Estimated GFR POC Glucose 118 H Random Glucose Calcium Phosphorus Total Bilirubin AST ALT Alkaline Phosphatase Total Protein Albumin MTS Gel Crossmatch See Detail See Detail 12/14/17 12/14/17 12/14/17 17:02 17:19 19:38 WBC RBC Hgb 9.0 L Hct 26.1 L MCV MCH MCHC RDW Plt Count MPV PT INR APTT Fibrinogen Sodium Potassium Chloride Carbon Dioxide Anion Gap BUN Creatinine Estimated GFR POC Glucose 147 H 129 H Random Glucose Calcium Phosphorus Total Bilirubin AST ALT Alkaline Phosphatase Total Protein Albumin MTS Gel Crossmatch 12/15/17 12/15/17 12/15/17 00:15 00:17 01:03 WBC RBC Hgb 7.8 L Hct 22.4 L MCV MCH MCHC RDW Plt Count MPV PT INR APTT Fibrinogen Sodium Potassium Chloride Carbon Dioxide Anion Gap BUN Creatinine Estimated GFR POC Glucose 125 H Random Glucose Calcium Phosphorus Total Bilirubin AST ALT Alkaline Phosphatase Total Protein Albumin MTS Gel Crossmatch See Detail 12/15/17 12/15/17 12/15/17 01:20 04:10 05:40 WBC RBC Hgb Hct MCV MCH MCHC RDW Plt Count MPV PT 10.4 INR 1.0 APTT 28.0 Fibrinogen 574 H Sodium 141 Potassium 3.7 D Chloride 103 D Carbon Dioxide 24.7 Anion Gap 13 BUN 73 H Creatinine 5.05 H Estimated GFR 15 L POC Glucose 141 H Random Glucose 126 H Calcium 7.8 L D Phosphorus 4.6 Total Bilirubin 1.0 AST 121 H ALT 138 H Alkaline Phosphatase 297 H Total Protein 5.4 L D Albumin 1.4 L MTS Gel Crossmatch 12/15/17 12/15/17 12/15/17 05:40 07:56 09:41 WBC 17.2 H RBC 2.59 L Hgb 7.9 L Hct 22.3 L MCV 86.1 MCH 30.6 MCHC 35.5 RDW 15.6 Plt Count 206 MPV 9.3 PT INR APTT Fibrinogen Sodium Potassium Chloride Carbon Dioxide Anion Gap BUN Creatinine Estimated GFR POC Glucose 142 H Random Glucose Calcium Phosphorus Total Bilirubin AST ALT Alkaline Phosphatase Total Protein Albumin MTS Gel Crossmatch See Detail 12/15/17 12/15/17 11:14 11:30 WBC RBC Hgb 8.7 L Hct 25.3 L MCV MCH MCHC RDW Plt Count MPV PT INR APTT Fibrinogen Sodium Potassium Chloride Carbon Dioxide Anion Gap BUN Creatinine Estimated GFR POC Glucose 152 H Random Glucose Calcium Phosphorus Total Bilirubin AST ALT Alkaline Phosphatase Total Protein Albumin MTS Gel Crossmatch Microbiology 12/07/17 10:10 Fluid - Pleural fluid Fungal Smear - Final No fungal elements seen 12/07/17 10:10 Fluid - Pleural fluid Fungal Culture - Preliminary No growth in 1 week 12/07/17 10:10 Fluid - Pleural fluid Acid Fast Bacilli Smear - Final No acid fast bacilli seen 12/07/17 10:10 Fluid - Pleural fluid Mycobacterial Culture - Preliminary No growth in 1 week - Imaging Impressions Chest X-Ray 12/14/17 10:25 CONCLUSION: Persistent left basilar airspace disease and underlying effusion. No significant change or improvement compared to earlier exam. 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, underwent reexploration with Dinh- en-y esophagojejunostomy, J-tube placement and diagnostic EGD with primary fascial closure. Consult for possible lower GI bleeding- pt noted to have maroon colored stool Enteroscopy (12/11) S/P total gastrectomy, esophagojejunal anastomosis normal, some old blood, no fresh blood, no blood seen in jejunum NM bleeding scan (12/11) Negative CT abdomen/pelvis WO IV contrast (12/12) Postoperative abdomen appearance (12/12) Pt received 2 U PRBCs yesterday, H/H stable since last night. According to RN approximately 100 mL of liquid stool since last night. Family at bedside, agreeable to colonoscopy tomorrow. 12/13/17- Patient received 3 units prbc's this am. Pre- transfusion Hgb 5.5, HCT 16.1. Bedside RN reports large amount of maroon colored drainage noted in collection bag as well as large amount of leakage of melanotic stools around rectal tube. Abdomen firm and distended. BP 155/60, ST 118. Will check stat HH , EGD/ Colonoscopy today urgently, CT abdomen. (12/13/17)-Stat hemoglobin 9.6 hematocrit 28.4. 12/14/2017 WBC 21.2 hemoglobin 7.9 hematocrit 23.0. Maroon colored output markedly decreased in drainage collection bag. Patient currently receiving 1 unit of packed RBCs during hemodialysis. NG pulled back 6-800 mL by bedside RN to avoid irritation to area of anastomosis. 12/13/2017 EGD revealed the following findings--> 1. S/p total gastrectomy some small amount of bleeding at esophagojejunal anastomosis -s/p cautery with gold probe, 2 clips plied, epinephrin 1:10,000 2 cc injected some blood in jejunum 2. Retroflexion was not performed 12/13/2017 colonoscopy revealed the following--> 1. Old blood to cecum, no active bleeding 2. Retroflexed views revealed internal hemorrhoids 3. Retroflexed views revealed small internal hemorrhoids 4. Was performed 5. Revealed hemorrhoids 12/15/2017 NG tube and rectal tube which do show some dark with some coffee- ground combination stool noted and emesis via NG tube, low intermittent suction , previously had Nepro at 30 cc an hour .patient is awake responding to verbal stimuli current hemoglobin has dropped from 9-7.8 and WBC count trends down at 17.2 Transaminitis AST 121 ALT 138 probably related still to some shock liver, negative C. difficile last check. Patient is pending bleeding scan and nuclear medicine IR pending findings Plan NG tube , low intermittent suction monitor for any change in maroon versus coffee-ground emesis Bleeding scan pending today per nuclear medicine, any IR procedures pending bleeding scan findings Monitor labs and transfuse as needed dependent hemoglobin findings Monitor LFTs Maintain rectal tube for now and monitor bleeding Further recommendations to follow Patient was seen per myself and , note was written on his behalf
--- NOTE | 2017-12-15 12:58 | P.PNGS ---
Subjective Patient reports: other (bleeding) Physical Exam Vital signs: Vital Signs 12/14/17 13:00 12/14/17 14:00 12/14/17 15:00 Temperature Pulse Rate 121 H 119 H 122 H Respiratory Rate 21 21 21 Blood Pressure Pulse Oximetry 95 100 97 12/14/17 16:00 12/14/17 16:28 12/14/17 16:30 Temperature 98.1 F Pulse Rate 121 H 124 H Respiratory Rate 33 H 22 25 H Blood Pressure Pulse Oximetry 100 100 12/14/17 17:00 12/14/17 18:00 12/14/17 19:00 Temperature Pulse Rate 122 H 132 H 130 H Respiratory Rate 33 H 25 H 19 Blood Pressure Pulse Oximetry 100 100 98 12/14/17 20:00 12/14/17 20:35 12/14/17 20:39 Temperature 100.1 F H Pulse Rate 128 H 124 H Respiratory Rate 20 19 20 Blood Pressure 148/64 H Pulse Oximetry 100 100 12/14/17 21:00 12/14/17 22:00 12/14/17 22:17 Temperature Pulse Rate 123 H 124 H Respiratory Rate 20 20 20 Blood Pressure Pulse Oximetry 100 100 100 12/14/17 23:00 12/15/17 00:00 12/15/17 01:00 Temperature 100.2 F H Pulse Rate 119 H 118 H 119 H Respiratory Rate 19 18 19 Blood Pressure 163/70 H Pulse Oximetry 100 100 100 12/15/17 01:36 12/15/17 02:00 12/15/17 03:00 Temperature 100.2 F H Pulse Rate 119 H 117 H 130 H Respiratory Rate 18 21 18 Blood Pressure Pulse Oximetry 100 100 100 12/15/17 04:00 12/15/17 05:07 12/15/17 06:00 Temperature 99.8 F H Pulse Rate 114 H 101 H 104 H Respiratory Rate 18 22 Blood Pressure Pulse Oximetry 100 12/15/17 08:58 12/15/17 09:08 12/15/17 09:10 Temperature 99.4 F Pulse Rate 111 H 111 H Respiratory Rate 19 18 19 Blood Pressure Pulse Oximetry 100 100 Intake & Output 12/14/17 12/15/17 12/15/17 18:59 06:59 18:59 Intake Total 1148 / 1148 2932 / 2932 650 / 650 Output Total 00451 / 64906 2218 / 2218 Balance -9096 / -9096 714 / 714 650 / 650 Weight 79.9 kg Intake: IV 550 / 550 2175 / 2175 Protonix Inj 80 MG In NS Inj 100 / 100 100 / 100 100 ML @ 10 mls/hr IV.CONT CONT COLE Rx#:[id number] Diprivan 1000 mg/100 ml Inj 1, 100 / 100 100 / 100 000 mg In 100 ml @ 5 MCG/KG/MIN 2.859 mls/hr IV.CONT TITRATE PRN Rx#:[id number] Intralipid 20% Inj 250 ML @ 31. 250 / 250 25 mls/hr IV.SIG Q24H COLE Rx#: [id number] Mycamine Inj 100 MG In NS Inj 100 / 100 100 ML @ 100 mls/hr IV.SIG Q24H COLE Rx#:[id number] Zosyn 2.25 GM Premix 50 ML @ 100 / 100 100 mls/hr IV.SIG Q8H COLE Rx#: [id number] NS Inj 250 ML @ 15 mls/hr IV. / SIG ONCE COLE Rx#:[id number] Sodium Chloride 23.4% Inj 5.5 1310 / 1310 MEQ Sodium Acetate Inj 29.5 MEQ KCl Inj 20 MEQ Calcium Chloride Inj 4.5 MEQ MVI-12 Inj 10 ML Folvite Inj 1 MG In Clinimix 5%/D20W Inj 2,000 ML @ 65 mls/hr IV.SIG Q24H COLE Rx#: [id number] fentaNYL 10 mcg/mL Premix Drip 250 / 250 250 / 250 2,500 mcg In 250 ml @ 50 MCG/HR 5 mls/hr IV.SIG TITRATE PRN Rx #:[id number] Tube Feeding 198 / 198 327 / 327 Tube Irrigant 30 / 30 Other 250 / 250 Rbc As-3 Leukoreduced Unit 250 / 250 [id number] Intake (Blood Product) Amt 400 / 400 400 / 400 400 / 400 Rbc As-3 Leukoreduced Unit 400 / 400 [id number] Rbc As-3 Leukoreduced Unit 400 / 400 [id number] Rbc As-3 Leukoreduced Unit 400 / 400 [id number] Output: Stool 600 / 600 1500 / 1500 Hemodialysis Amount 9000 / 9000 Wound Drainage 600 / 600 600 / 600 # 1 Right Abdomen 0 / 0 0 / 0 # 2 Right Abdomen 600 / 600 600 / 600 Chest Tube Drainage 44 / 44 118 / 118 #1 Left Pleural 44 44 118 / 118 Other: Other Intake Source Rbc As-3 Leukoreduced Unit Saline Solution [id number] Date of Last Bowel Movement 12/14/17 12/15/17 12/15/17 - Constitutional no acute distress - Routine Abdominal Exam Present: soft. Absent: tenderness, distended, rebound - Urinary Catheter Management Indwelling Temp Sensing Catheter Cath placed during this visit: no Results - Labs 12/15/17 11:30 12/15/17 05:40 Laboratory Results - last 24 hr 12/04/17 12/14/17 12/14/17 10:46 09:05 13:08 WBC RBC Hgb Hct MCV MCH MCHC RDW Plt Count MPV PT INR APTT Fibrinogen Sodium Potassium Chloride Carbon Dioxide Anion Gap BUN Creatinine Estimated GFR POC Glucose 118 H Random Glucose Calcium Phosphorus Total Bilirubin AST ALT Alkaline Phosphatase Total Protein Albumin MTS Gel Crossmatch See Detail See Detail 12/14/17 12/14/17 12/14/17 17:02 17:19 19:38 WBC RBC Hgb 9.0 L Hct 26.1 L MCV MCH MCHC RDW Plt Count MPV PT INR APTT Fibrinogen Sodium Potassium Chloride Carbon Dioxide Anion Gap BUN Creatinine Estimated GFR POC Glucose 147 H 129 H Random Glucose Calcium Phosphorus Total Bilirubin AST ALT Alkaline Phosphatase Total Protein Albumin MTS Gel Crossmatch 12/15/17 12/15/17 12/15/17 00:15 00:17 01:03 WBC RBC Hgb 7.8 L Hct 22.4 L MCV MCH MCHC RDW Plt Count MPV PT INR APTT Fibrinogen Sodium Potassium Chloride Carbon Dioxide Anion Gap BUN Creatinine Estimated GFR POC Glucose 125 H Random Glucose Calcium Phosphorus Total Bilirubin AST ALT Alkaline Phosphatase Total Protein Albumin MTS Gel Crossmatch See Detail 12/15/17 12/15/17 12/15/17 01:20 04:10 05:40 WBC RBC Hgb Hct MCV MCH MCHC RDW Plt Count MPV PT 10.4 INR 1.0 APTT 28.0 Fibrinogen 574 H Sodium 141 Potassium 3.7 D Chloride 103 D Carbon Dioxide 24.7 Anion Gap 13 BUN 73 H Creatinine 5.05 H Estimated GFR 15 L POC Glucose 141 H Random Glucose 126 H Calcium 7.8 L D Phosphorus 4.6 Total Bilirubin 1.0 AST 121 H ALT 138 H Alkaline Phosphatase 297 H Total Protein 5.4 L D Albumin 1.4 L MTS Gel Crossmatch 12/15/17 12/15/17 12/15/17 05:40 07:56 09:41 WBC 17.2 H RBC 2.59 L Hgb 7.9 L Hct 22.3 L MCV 86.1 MCH 30.6 MCHC 35.5 RDW 15.6 Plt Count 206 MPV 9.3 PT INR APTT Fibrinogen Sodium Potassium Chloride Carbon Dioxide Anion Gap BUN Creatinine Estimated GFR POC Glucose 142 H Random Glucose Calcium Phosphorus Total Bilirubin AST ALT Alkaline Phosphatase Total Protein Albumin MTS Gel Crossmatch See Detail 12/15/17 12/15/17 11:14 11:30 WBC RBC Hgb 8.7 L Hct 25.3 L MCV MCH MCHC RDW Plt Count MPV PT INR APTT Fibrinogen Sodium Potassium Chloride Carbon Dioxide Anion Gap BUN Creatinine Estimated GFR POC Glucose 152 H Random Glucose Calcium Phosphorus Total Bilirubin AST ALT Alkaline Phosphatase Total Protein Albumin MTS Gel Crossmatch - Imaging Imaging: ITS Impressions Head MRI 12/03/17 00:00 CONCLUSION: 1. Minimal nonspecific periventricular white matter changes. 2. No restricted diffusion to suggest an acute ischemic event. 3. No evidence for significant ischemic changes. Chest CT 12/04/17 00:06 CONCLUSION: 1. Left greater than right pleural effusions and basilar atelectasis. 2. No hemorrhage or hematoma demonstrated. 3. Distended and fluid-filled esophagus. No wall thickening. Patient is status post gastrectomy. Nasogastric tube is at the GE junction. 4. Body wall edema/anasarca. Abdomen X-Ray 12/08/17 00:00 CONCLUSION: 1. 2 left-sided abdominal catheters. 2. Nonspecific bowel gas pattern. GI Bleed Scan Nuclear Medicine 12/11/17 00:00 CONCLUSION: 1. Negative examination with no evidence of acute GI bleeding. Abdomen/Pelvis CT 12/13/17 00:00 CONCLUSION: 1. New proximal small bowel dilatation. No discrete transition point. Contrast is seen in the distal small bowel. Findings may represent ileus or partial obstruction. 2. Postsurgical findings with surgical drains in the left upper quadrant. Free fluid is seen in the left upper quadrant. Loculated rounded 5 cm area of fluid with thin peripheral enhancement also noted just inferior to the surgical drains. 3. Prominent left lower lobe pulmonary consolidation and small left pleural effusion. Chest X-Ray 12/14/17 10:25 CONCLUSION: Persistent left basilar airspace disease and underlying effusion. No significant change or improvement compared to earlier exam. Assessment and Plan - Assessment (1) Gastric perforation Code(s): K25.5 - Chronic or unspecified gastric ulcer with perforation Status : Resolved Plan: 47yo male s/p Exlap and gastrectomy for gastric perforation, s/p esophagojejunostomy at [facility] -Intubated---[place] [facility]; if no improvements will likely need tracheostomy tube placed early next week -GI bleeding, GI following, down in GI lab today -Continue to monitor/follow from surgery standpoint
--- NOTE | 2017-12-15 15:10 | P.PNNP ---
Subjective Interval history: Remains intubated, sedated Physical Exam Vital signs: Vital Signs 12/14/17 16:00 12/14/17 16:28 12/14/17 16:30 Temperature 98.1 F Pulse Rate 121 H 124 H Respiratory Rate 33 H 22 25 H Blood Pressure Pulse Oximetry 100 100 12/14/17 17:00 12/14/17 18:00 12/14/17 19:00 Temperature Pulse Rate 122 H 132 H 130 H Respiratory Rate 33 H 25 H 19 Blood Pressure Pulse Oximetry 100 100 98 12/14/17 20:00 12/14/17 20:35 12/14/17 20:39 Temperature 100.1 F H Pulse Rate 128 H 124 H Respiratory Rate 20 19 20 Blood Pressure 148/64 H Pulse Oximetry 100 100 12/14/17 21:00 12/14/17 22:00 12/14/17 22:17 Temperature Pulse Rate 123 H 124 H Respiratory Rate 20 20 20 Blood Pressure Pulse Oximetry 100 100 100 12/14/17 23:00 12/15/17 00:00 12/15/17 01:00 Temperature 100.2 F H Pulse Rate 119 H 118 H 119 H Respiratory Rate 19 18 19 Blood Pressure 163/70 H Pulse Oximetry 100 100 100 12/15/17 01:36 12/15/17 02:00 12/15/17 03:00 Temperature 100.2 F H Pulse Rate 119 H 117 H 130 H Respiratory Rate 18 21 18 Blood Pressure Pulse Oximetry 100 100 100 12/15/17 04:00 12/15/17 05:07 12/15/17 06:00 Temperature 99.8 F H Pulse Rate 114 H 101 H 104 H Respiratory Rate 18 22 Blood Pressure Pulse Oximetry 100 12/15/17 08:58 12/15/17 09:08 12/15/17 09:10 Temperature 99.4 F Pulse Rate 111 H 111 H Respiratory Rate 19 18 19 Blood Pressure Pulse Oximetry 100 100 Intake & Output 12/14/17 12/15/17 12/15/17 18:59 06:59 18:59 Intake Total 1148 / 1148 2932 / 2932 650 / 650 Output Total 36488 / 46759 2218 / 2218 Balance -9096 / -9096 714 / 714 650 / 650 Weight 79.9 kg Intake: IV 550 / 550 2175 / 2175 Protonix Inj 80 MG In NS Inj 100 / 100 100 / 100 100 ML @ 10 mls/hr IV.CONT CONT COLE Rx#:[id number] Diprivan 1000 mg/100 ml Inj 1, 100 / 100 100 / 100 000 mg In 100 ml @ 5 MCG/KG/MIN 2.859 mls/hr IV.CONT TITRATE PRN Rx#:[id number] Intralipid 20% Inj 250 ML @ 31. 250 / 250 25 mls/hr IV.SIG Q24H COLE Rx#: [id number] Mycamine Inj 100 MG In NS Inj 100 / 100 100 ML @ 100 mls/hr IV.SIG Q24H COLE Rx#:[id number] Zosyn 2.25 GM Premix 50 ML @ 100 / 100 100 mls/hr IV.SIG Q8H COLE Rx#: [id number] NS Inj 250 ML @ 15 mls/hr IV. 65 / 65 SIG ONCE COLE Rx#:[id number] Sodium Chloride 23.4% Inj 5.5 1310 / 1310 MEQ Sodium Acetate Inj 29.5 MEQ KCl Inj 20 MEQ Calcium Chloride Inj 4.5 MEQ MVI-12 Inj 10 ML Folvite Inj 1 MG In Clinimix 5%/D20W Inj 2,000 ML @ 65 mls/hr IV.SIG Q24H COLE Rx#: [id number] fentaNYL 10 mcg/mL Premix Drip 250 / 250 250 / 250 2,500 mcg In 250 ml @ 50 MCG/HR 5 mls/hr IV.SIG TITRATE PRN Rx #:[id number] Tube Feeding 198 / 198 327 / 327 Tube Irrigant 30 / 30 Other 250 / 250 Rbc As-3 Leukoreduced Unit 250 / 250 [id number] Intake (Blood Product) Amt 400 / 400 400 / 400 400 / 400 Rbc As-3 Leukoreduced Unit 400 / 400 [id number] Rbc As-3 Leukoreduced Unit 400 / 400 [id number] Rbc As-3 Leukoreduced Unit 400 / 400 [id number] Output: Stool 600 / 600 1500 / 1500 Hemodialysis Amount 9000 / 9000 Wound Drainage 600 / 600 600 / 600 # 1 Right Abdomen 0 / 0 0 / 0 # 2 Right Abdomen 600 / 600 600 / 600 Chest Tube Drainage 44 / 44 118 / 118 #1 Left Pleural 44 / 44 118 / 118 Other: Other Intake Source Rbc As-3 Leukoreduced Unit Saline Solution [id number] Date of Last Bowel Movement 12/14/17 12/15/17 12/15/17 - Constitutional no acute distress - Routine HEENT Exam Head: Present: normocephalic - Routine Neck Exam Present: supple - Routine Respiratory Exam Present: decreased breath sounds - Routine Cardiovascular Exam Present: RRR - Routine Abdominal Exam Present: soft - Routine Skin Exam Present: intact - Urinary Catheter Management Indwelling Temp Sensing Catheter Cath placed during this visit: no Assessment and Plan - Assessment (1) JACLYN (acute kidney injury) Code(s): N17.9 - Acute kidney failure, unspecified Status: Acute Plan: Anuric renal failure. He has become dialysis dependent. HD done Sunday, plan next HD Sunday Monitor for recovery. Continue supportive care. Avoid nephrotoxic agents. PhosLo increased - improved now (2) Acute respiratory failure Code(s): J96.00 - Acute respiratory failure, unspecified whether with hypoxia or hypercapnia Status: Acute Qualifiers: Respiratory failure complication: hypoxia Qualified Code(s): J96.01 - Acute respiratory failure with hypoxia Plan: On the ventilator. Possible aspiration. Chest x-ray today showed consolidation within the left lung base with possible small pleural fluid component. Patient has left sided chest tube in place. (3) Gastric perforation Code(s): K25.5 - Chronic or unspecified gastric ulcer with perforation Status : Resolved Plan: s/p surgery. Subtotal gastrectomy in [place]. In [facility] he had: Dinh-en-y esophagojejunostomy, feeding jejunostomy placement, diagnostic EGD, primary fascial closure. Date of procedure: 11/28/17 Negative bleeding scan today - follow with GI, surgery (4) Candidemia Code(s): B37.7 - Candidal sepsis Status: Acute Plan: On Micafungin. Patient is also on Zosyn. Dose medications appropriate to renal function. (5) DVT (deep venous thrombosis) Code(s): I82.409 - Acute embolism and thrombosis of unspecified deep veins of unspecified lower extremity Status: Acute Plan: DVT of bilateral upper extremities. (6) Anemia Code(s): D64.9 - Anemia, unspecified Status: Acute Plan: Could be multifactorial. Also could be due to renal failure. Transfuse prn. Bleeding scan negative
--- NOTE | 2017-12-15 15:25 | NM ---
EXAM DATE: 12/15/2017 2:59 PM EST AGE/SEX: 47 years / Male INDICATIONS: Rectal bleeding. CLINICAL DATA: This is the patient's initial encounter. Patient reports that signs and symptoms have been present for 3 days and indicates a pain score of 0/10. MEDICAL/SURGICAL HISTORY: None. None. COMPARISON: [facility] [place], GI BLEEDING SCAN, 12/11/2017. . TECHNIQUE: Following the modified in vitro labeling of autologous red cells, dynamic continuous image s were acquired for two hours. ?? DOSE: 21.0 mCi Tc 99m Ultratag Labeled Red Blood Cells IV IMAGING TIME: 2 hr FINDINGS: Biodistribution: There is a very good labeling of red cells without significant uptake in the gastri c wall. There is good delineation of the blood pool of the spleen and abdominal vessels. Bleeding: No episodes of active GI bleeding are observed during two hours of continuous observation . CONCLUSION: No active bleeding demonstrated. Electronically signed by: Jordi James MD 12/15/2017 3:24 PM EST
[2017-12-15 18:51] LABS: Hematocrit 26.3 % (39.0-51.0); Hemoglobin 8.9 gm/dL (13.0-17.0)
[2017-12-16 00:40] LABS: Hematocrit 23.1 % (39.0-51.0); Hemoglobin 8.1 gm/dL (13.0-17.0)
[2017-12-16] MEDS: Oral Hygiene Kit OROPHARYNG SCH ×4 (01:41→16:00)
[2017-12-16] MEDS: Insulin NovoLOG Aspart Correctional Sugar Inj SQ SCH ×6 (01:41→22:16)
[2017-12-16] MEDS: Propofol 1000 mg/100 ml Inj 1,000 MG/100 ML BOTTLE IV.CONT PRN ×2 (02:05→20:34)
[2017-12-16 05:07] LABS: Hematocrit 22.6 % (39.0-51.0); Hemoglobin 7.8 gm/dL (13.0-17.0); Mean Corpuscular HGB Conc 34.5 % (32.0-36.0); Mean Corpuscular Hemoglobin 30.5 pg (27.0-34.0); Mean Corpuscular Volume 88.5 fL (80.0-100.0); Mean Platelet Volume 9.6 fL (7.0-11.0); Platelet Count 252 th/mm3 (150-450); Red Blood Count 2.56 mil/mm3 (4.50-5.90); White Blood Count 19.7 th/mm3 (4.0-11.0)
[2017-12-16 05:22] LABS: Alanine Aminotransferase 121 U/L (12-78); Albumin 1.4 g/dL (3.4-5.0); Alkaline Phosphatase 226 U/L (45-117); Anion Gap 16 meq/L (5-15); Aspartate Aminotransferase 100 U/L (15-37); Blood Urea Nitrogen 89 mg/dL (7-18); Calcium 7.6 mg/dL (8.5-10.1); Carbon Dioxide 21.3 meq/L (21.0-32.0); Chloride 106 meq/L (98-107); Glomerular Filtration Rate 12 mL/min (>89); Glucose,Random 125 mg/dL (74-106); Potassium 3.6 meq/L (3.5-5.1); Sodium 143 meq/L (136-145); Total Protein 5.5 g/dL (6.4-8.2)
[2017-12-16] MEDS: Piperacil/Tazo 2.25 GM Premix 50 ML IV.SIG SCH ×2 (06:39→15:03)
[2017-12-16] MEDS: Pantoprazole Inj 80 MG in Sodium Chlor 0.9% Inj 100 ML IV.CONT SCH ×2 (08:36→20:10)
[2017-12-16] MEDS: Chlorhexidine 0.12% Oral Kit 15 ML UDC OROPHARYNG SCH ×2 (08:36→20:10)
[2017-12-16] MEDS: hydrALAZINE 50 MG Tablet PO SCH ×2 (08:36→17:39)
[2017-12-16] MEDS: Calcium Acetate 667 MG Capsule PO SCH ×3 (08:36→17:39)
[2017-12-16] MEDS: fentaNYL 10 mcg/mL Premix Drip 2,500 MCG/250 ML BAG IV.SIG PRN ×2 (09:33→22:15)
--- NOTE | 2017-12-16 10:25 | P.DIET ---
Nutritional Evaluation Type of nutrition evaluation: follow-up Nutrition consult regarding: Tube Feeding, TPN/PPN Nutrition screening: [facility] [place] Screening comments: Re-admitted transfer from [facility]. Subjective Subjective Comments: Assessment here uses HT from previous admission 190.5cm(75 inches). Objective - Diagnosis Gastroenteritis - Objective % IBW: 92 (IBW = 190#) Body Weight Used for Calculations: Actual (79.4) Energy Needs - Lower Range (kCal/kg): 28 Energy Needs - Upper Range (kCal/kg): 32 Lower Limit kCal/kg (kCals): 2,223 Upper Limit kCal/kg (kCals): 2,541 Lower Limit Protein Factor (Grams per Kg): 1.2 Upper Limit Protein Factor (Grams per Kg): 1.5 Lower Protein Needs (Protein): 95 Upper Protein Needs (Protein): 119 Dietitian Reviewed in Medical Record: Curent medications, Intake & Output, Labs , Medical history, TPN/PPN, Tube feeding Diet Order: NPO Objective Comments: see recent extensive hx in H&P Labs: TG 427(12/01); BUN 89, Creatinine 6.17, estGFR 12, POC Glucose 147 Meds include: Phoslo, Novolog, Zofran Feeding - Current Tube Feeding Tube Feeding Product: Nepro Tube Feeding Rate: 50 (mls/hr) Tube Feeding Route: jejunostomy Current kCals Provided by Tube Feedin,160 Current Protein Provided by Tube Feeding (gPRO): 97 Current Free H2O Provided (m/l): 872 Assessment Assessment: Pt continues at high nutritional risk r/t Clinical Status and need for alternative method of nutrition. Pt currently dialysis dependent. TPN/Lipids weaned 12/15. Pt receiving TF'ing w/Nepro. Rec a TF'ing goal rate for Nepro @ 55ml/hr to provide for assessed needs to offer 2376 kcal, 107g protein and 960ml free water. Propofol provides some additional kcals(1.1 kcal/ml)when running. Labs reviewed. Wt changes noted. Recommendations: 1. Rec a TF'ing goal rate for Nepro @ 55ml/hr 2. Propofol provides some additional kcals(1.1 kcal/ml)when running Dietitian to Monitor: Lab values, Renal labs, Intake & Output, Tube feeding tolerance, Weight change, Medical course
--- NOTE | 2017-12-16 11:32 | P.PNGS ---
Subjective Patient reports: other (Remains ventilated. Eyes open. Follows simple commands with weak bilateral equal opportunity director and wiggle his toes on both sides. Stool amount still high in volume but now more brown than maroon or bloody. Apparently when tube feed got disconnected bloody drainage came out of J-tube. Report of bleeding scan did not demonstrate site for GI bleed.) Physical Exam Vital signs: Vital Signs 12/15/17 12:00 12/15/17 13:00 12/15/17 14:00 Temperature 98.5 F Pulse Rate 115 H 108 H 104 H Respiratory Rate 18 20 17 Pulse Oximetry 100 100 100 12/15/17 15:00 12/15/17 16:00 12/15/17 17:00 Temperature 98.3 F Pulse Rate 103 H 109 H 108 H Respiratory Rate 20 20 19 Pulse Oximetry 100 100 100 12/15/17 17:51 12/15/17 17:53 12/15/17 18:00 Temperature Pulse Rate 116 H 119 H Respiratory Rate 20 22 22 Pulse Oximetry 100 100 12/15/17 19:00 12/15/17 20:00 12/15/17 21:00 Temperature 98.9 F Pulse Rate 124 H 116 H 115 H Respiratory Rate 29 H 94 H 56 H Pulse Oximetry 100 100 100 12/15/17 21:04 12/15/17 22:00 12/15/17 23:00 Temperature Pulse Rate 114 H 112 H 116 H Respiratory Rate 19 48 H 66 H Pulse Oximetry 100 100 100 12/16/17 00:00 12/16/17 00:22 12/16/17 01:00 Temperature 98.2 F Pulse Rate 114 H 110 H Respiratory Rate 18 20 18 Pulse Oximetry 100 100 100 12/16/17 02:00 12/16/17 03:00 12/16/17 04:00 Temperature 98.2 F Pulse Rate 110 H 109 H 121 H Respiratory Rate 18 21 20 Pulse Oximetry 100 100 100 12/16/17 05:00 12/16/17 05:07 12/16/17 06:00 Temperature Pulse Rate 113 H 113 H Respiratory Rate 21 20 21 Pulse Oximetry 100 100 100 12/16/17 06:25 12/16/17 09:04 Temperature 98.7 F Pulse Rate 117 H 113 H Respiratory Rate 19 18 Pulse Oximetry 100 100 Intake & Output 12/15/17 12/16/17 12/16/17 18:59 06:59 18:59 Intake Total 1732 / 1732 865 / 865 500 / 500 Output Total 995 / 995 2275 / 2275 Balance 737 / 737 -1410 / -1410 500 / 500 Weight 78.5 kg Intake: IV 545 / 545 300 / 300 500 / 500 Protonix Inj 80 MG In NS Inj 100 / 100 100 / 100 100 / 100 100 ML @ 10 mls/hr IV.CONT Q10H [facility] Rx#:[id number] Diprivan 1000 mg/100 ml Inj 1, 100 / 100 100 / 100 000 mg In 100 ml @ 5 MCG/KG/MIN 2.859 mls/hr IV.CONT TITRATE PRN Rx#:[id number] Mycamine Inj 100 MG In NS Inj 100 / 100 100 ML @ 100 mls/hr IV.SIG Q24H [facility] Rx#:[id number] Zosyn 2.25 GM Premix 50 ML @ 50 / 50 50 / 50 50 / 50 100 mls/hr IV.SIG Q8H [facility] Rx#: [id number] NS Inj 250 ML @ 15 mls/hr IV. 45 / 45 SIG ONCE [facility] Rx#:[id number] fentaNYL 10 mcg/mL Premix Drip 250 / 250 50 / 50 250 / 250 2,500 mcg In 250 ml @ 50 MCG/HR 5 mls/hr IV.SIG TITRATE PRN Rx #:[id number] Tube Feeding 317 / 317 565 / 565 Water Bolus Amount 220 / 220 Other 250 / 250 Rbc As-3 Leukoreduced Unit 250 / 250 [id number] Intake (Blood Product) Amt 400 / 400 0 / 0 Rbc As-3 Leukoreduced Unit 400 / 400 [id number] Rbc As-3 Leukoreduced Unit 0 / 0 [id number] Output: Urine 0 / 0 Stool 1300 / 1300 Gastric Drainage 25 / 25 Pre-Hospital Jejunostomy Tube 25 / 25 Wound Drainage 920 / 920 975 / 975 # 1 Right Abdomen 20 / 20 25 / 25 # 2 Right Abdomen 900 / 900 950 / 950 Chest Tube Drainage 50 / 50 #1 Left Pleural 50 / 50 Other: Other Intake Source Rbc As-3 Leukoreduced Unit Saline Solution [id number] Date of Last Bowel Movement 12/15/17 12/16/17 # Bowel Movements 5 1 # Incontinent Bowel Movements 5 Narrative: His lungs are clear anteriorly bilaterally. His heart sounds are consistent with a sinus tachycardia. His abdomen is soft. His incision shows some areas of granulation tissue. Some exudative tissue was sharply debrided today. A new dressing was being applied by Shameka, his bedside nurse. J-tube site looks fine no bloody drainage around J-tube. Skin on right side of abdomen is healed. Drains draining large amount of yellow serous fluid and drain to drain one has a blood clot in it with a small amount of serosanguineous drainage. Extremities remain edematous. - Urinary Catheter Management Indwelling Temp Sensing Catheter Cath placed during this visit: no Results - Labs 12/16/17 04:44 12/16/17 04:44 Laboratory Results - last 24 hr 12/04/17 12/12/17 12/15/17 10:46 23:15 07:56 WBC RBC Hgb Hct MCV MCH MCHC RDW Plt Count MPV Sodium Potassium Chloride Carbon Dioxide Anion Gap BUN Creatinine Estimated GFR POC Glucose Random Glucose Calcium Total Bilirubin AST ALT Alkaline Phosphatase Total Protein Albumin Lead Less than 1.0 MTS Gel Crossmatch See Detail See Detail 12/15/17 12/15/17 12/15/17 11:30 17:08 18:08 WBC RBC Hgb 8.7 L 8.9 L Hct 25.3 L 26.3 L MCV MCH MCHC RDW Plt Count MPV Sodium Potassium Chloride Carbon Dioxide Anion Gap BUN Creatinine Estimated GFR POC Glucose 121 H Random Glucose Calcium Total Bilirubin AST ALT Alkaline Phosphatase Total Protein Albumin Lead MTS Gel Crossmatch 12/15/17 12/15/17 12/16/17 21:01 23:55 00:08 WBC RBC Hgb 8.1 L Hct 23.1 L MCV MCH MCHC RDW Plt Count MPV Sodium Potassium Chloride Carbon Dioxide Anion Gap BUN Creatinine Estimated GFR POC Glucose 113 H 111 H Random Glucose Calcium Total Bilirubin AST ALT Alkaline Phosphatase Total Protein Albumin Lead MTS Gel Crossmatch 12/16/17 12/16/17 12/16/17 04:44 04:44 05:40 WBC 19.7 H RBC 2.56 L Hgb 7.8 L Hct 22.6 L MCV 88.5 MCH 30.5 MCHC 34.5 RDW 16.0 Plt Count 252 MPV 9.6 Sodium 143 Potassium 3.6 Chloride 106 Carbon Dioxide 21.3 Anion Gap 16 H BUN 89 H Creatinine 6.17 H Estimated GFR 12 L POC Glucose Random Glucose 125 H Calcium 7.6 L Total Bilirubin 0.8 AST 100 H ALT 121 H Alkaline Phosphatase 226 H Total Protein 5.5 L Albumin 1.4 L Lead MTS Gel Crossmatch See Detail 12/16/17 08:04 WBC RBC Hgb Hct MCV MCH MCHC RDW Plt Count MPV Sodium Potassium Chloride Carbon Dioxide Anion Gap BUN Creatinine Estimated GFR POC Glucose 147 H Random Glucose Calcium Total Bilirubin AST ALT Alkaline Phosphatase Total Protein Albumin Lead MTS Gel Crossmatch - Imaging Imaging: ITS Impressions Head MRI 12/03/17 00:00 CONCLUSION: 1. Minimal nonspecific periventricular white matter changes. 2. No restricted diffusion to suggest an acute ischemic event. 3. No evidence for significant ischemic changes. Chest CT 12/04/17 00:06 CONCLUSION: 1. Left greater than right pleural effusions and basilar atelectasis. 2. No hemorrhage or hematoma demonstrated. 3. Distended and fluid-filled esophagus. No wall thickening. Patient is status post gastrectomy. Nasogastric tube is at the GE junction. 4. Body wall edema/anasarca. Abdomen X-Ray 12/08/17 00:00 CONCLUSION: 1. 2 left-sided abdominal catheters. 2. Nonspecific bowel gas pattern. Abdomen/Pelvis CT 12/13/17 00:00 CONCLUSION: 1. New proximal small bowel dilatation. No discrete transition point. Contrast is seen in the distal small bowel. Findings may represent ileus or partial obstruction. 2. Postsurgical findings with surgical drains in the left upper quadrant. Free fluid is seen in the left upper quadrant. Loculated rounded 5 cm area of fluid with thin peripheral enhancement also noted just inferior to the surgical drains. 3. Prominent left lower lobe pulmonary consolidation and small left pleural effusion. Chest X-Ray 12/14/17 10:25 CONCLUSION: Persistent left basilar airspace disease and underlying effusion. No significant change or improvement compared to earlier exam. GI Bleed Scan Nuclear Medicine 12/15/17 00:00 CONCLUSION: No active bleeding demonstrated. Assessment and Plan - Assessment (1) Gastric perforation Code(s): K25.5 - Chronic or unspecified gastric ulcer with perforation Status : Resolved Plan: 47yo male s/p Exlap and gastrectomy for gastric perforation, s/p esophagojejunostomy at [facility] -Intubated---vent per [facility]; if no improvements will likely need tracheostomy tube placed early next week -GI bleeding, GI following, down in GI lab today -Continue to monitor/follow from surgery standpoint - Plan I personally evaluated the patient in room 1313. His abdomen is more distended today. He has had more maroon stools. GI is planning colonoscopy today. Additionally have discussed his case with Dr. Bacon and recommended CT of the abdomen with oral contrast through the nasogastric and feeding jejunostomy tubes. I discussed his condition with his family at the bedside. The exam, history, and the medical decision-making described in the above note were completed with the assistance of the mid-level provider. I reviewed and agree with the findings presented. I attest that I had a [id number] encounter with the patient on the same day, and personally performed and documented my assessment and findings in the medical record. 12/14/2017 The patient's GI bleed appears to have slowed down. Discussed with Dr. Bacon. Plan to withdraw NG tube about 6-8 cm above the anastomosis to reduce irritation on the anastomotic site. Silas with bedside RN increasing tube feeds back to goal rate while weaning TPN. Supportive therapy at this time. No surgical indications 12/16/2017 GI bleed is likely from generalized ooze from mucosal sloughing associated with multisystem organ failure. There is no surgical indication in this clinical scenario. We will continue present support and consider extubation when appropriate. Continue tube feeds as increase in protein levels will help decrease third space fluid. Wound healing will continue as well as protein is absorbed. Discussed Condition With: Shameka bedside RN and Dr. Bacon.
--- NOTE | 2017-12-16 14:05 | P.PNNP ---
Subjective Interval history: remains intubated Physical Exam Vital signs: Vital Signs 12/15/17 15:00 12/15/17 16:00 12/15/17 17:00 Temperature 98.3 F Pulse Rate 103 H 109 H 108 H Respiratory Rate 20 20 19 Pulse Oximetry 100 100 100 12/15/17 17:51 12/15/17 17:53 12/15/17 18:00 Temperature Pulse Rate 116 H 119 H Respiratory Rate 20 22 22 Pulse Oximetry 100 100 12/15/17 19:00 12/15/17 20:00 12/15/17 21:00 Temperature 98.9 F Pulse Rate 124 H 116 H 115 H Respiratory Rate 29 H 94 H 56 H Pulse Oximetry 100 100 100 12/15/17 21:04 12/15/17 22:00 12/15/17 23:00 Temperature Pulse Rate 114 H 112 H 116 H Respiratory Rate 19 48 H 66 H Pulse Oximetry 100 100 100 12/16/17 00:00 12/16/17 00:22 12/16/17 01:00 Temperature 98.2 F Pulse Rate 114 H 110 H Respiratory Rate 18 20 18 Pulse Oximetry 100 100 100 12/16/17 02:00 12/16/17 03:00 12/16/17 04:00 Temperature 98.2 F Pulse Rate 110 H 109 H 121 H Respiratory Rate 18 21 20 Pulse Oximetry 100 100 100 12/16/17 05:00 12/16/17 05:07 12/16/17 06:00 Temperature Pulse Rate 113 H 113 H Respiratory Rate 21 20 21 Pulse Oximetry 100 100 100 12/16/17 06:25 12/16/17 09:04 Temperature 98.7 F Pulse Rate 117 H 113 H Respiratory Rate 19 18 Pulse Oximetry 100 100 Intake & Output 12/15/17 12/16/17 12/16/17 18:59 06:59 18:59 Intake Total 1732 / 1732 865 / 865 500 / 500 Output Total 995 / 995 2275 / 2275 Balance 737 / 737 -1410 / -1410 500 / 500 Weight 78.5 kg Intake: IV 545 / 545 300 / 300 500 / 500 Protonix Inj 80 MG In NS Inj 100 / 100 100 / 100 100 / 100 100 ML @ 10 mls/hr IV.CONT Q10H [facility] Rx#:[id number] Diprivan 1000 mg/100 ml Inj 1, 100 / 100 100 / 100 000 mg In 100 ml @ 5 MCG/KG/MIN 2.859 mls/hr IV.CONT TITRATE PRN Rx#:[id number] Mycamine Inj 100 MG In NS Inj 100 / 100 100 ML @ 100 mls/hr IV.SIG Q24H [facility] Rx#:[id number] Zosyn 2.25 GM Premix 50 ML @ 50 / 50 50 / 50 50 / 50 100 mls/hr IV.SIG Q8H [facility] Rx#: [id number] NS Inj 250 ML @ 15 mls/hr IV. 45 / 45 SIG ONCE [facility] Rx#:[id number] fentaNYL 10 mcg/mL Premix Drip 250 / 250 50 / 50 250 / 250 2,500 mcg In 250 ml @ 50 MCG/HR 5 mls/hr IV.SIG TITRATE PRN Rx #:[id number] Tube Feeding 317 / 317 565 / 565 Water Bolus Amount 220 / 220 Other 250 / 250 Rbc As-3 Leukoreduced Unit 250 / 250 [id number] Intake (Blood Product) Amt 400 / 400 0 / 0 Rbc As-3 Leukoreduced Unit 400 / 400 [id number] Rbc As-3 Leukoreduced Unit 0 / 0 [id number] Output: Urine 0 / 0 Stool 1300 / 1300 Gastric Drainage 25 / 25 Pre-Hospital Jejunostomy Tube 25 / 25 Wound Drainage 920 / 920 975 / 975 # 1 Right Abdomen 20 / 20 25 / 25 # 2 Right Abdomen 900 / 900 950 / 950 Chest Tube Drainage 50 / 50 #1 Left Pleural 50 / 50 Other: Other Intake Source Rbc As-3 Leukoreduced Unit Saline Solution [id number] Date of Last Bowel Movement 12/15/17 12/16/17 # Bowel Movements 5 1 # Incontinent Bowel Movements 5 - Constitutional no acute distress - Routine HEENT Exam Head: Present: normocephalic ENT: Present: mucous membranes moist - Routine Neck Exam Present: supple - Routine Respiratory Exam Present: patient mechanically ventilated - Routine Cardiovascular Exam Present: RRR - Routine Abdominal Exam Present: soft - Routine Skin Exam Present: intact - Detailed Neurological Exam: Coma Scale Eye Opening: None Verbal Response: None - Urinary Catheter Management Indwelling Temp Sensing Catheter Cath placed during this visit: no Assessment and Plan - Assessment (1) JACLYN (acute kidney injury) Code(s): N17.9 - Acute kidney failure, unspecified Status: Acute Plan: Anuric renal failure. He has become dialysis dependent. HD done Sunday, plan next HD Sunday Monitor for recovery. Continue supportive care. Avoid nephrotoxic agents. PhosLo increased - improved now (2) Acute respiratory failure Code(s): J96.00 - Acute respiratory failure, unspecified whether with hypoxia or hypercapnia Status: Acute Qualifiers: Respiratory failure complication: hypoxia Qualified Code(s): J96.01 - Acute respiratory failure with hypoxia Plan: On the ventilator. Possible aspiration. Chest x-ray today showed consolidation within the left lung base with possible small pleural fluid component. Patient has left sided chest tube in place. (3) Gastric perforation Code(s): K25.5 - Chronic or unspecified gastric ulcer with perforation Status : Resolved Plan: s/p surgery. Subtotal gastrectomy in [place]. In [facility] he had: Dinh-en-y esophagojejunostomy, feeding jejunostomy placement, diagnostic EGD, primary fascial closure. Date of procedure: 11/28/17 Negative bleeding scan - follow with GI, surgery. No immediate surgical plans at this point (4) Candidemia Code(s): B37.7 - Candidal sepsis Status: Acute Plan: On Micafungin. Patient is also on Zosyn. Dose medications appropriate to renal function. (5) DVT (deep venous thrombosis) Code(s): I82.409 - Acute embolism and thrombosis of unspecified deep veins of unspecified lower extremity Status: Acute Plan: DVT of bilateral upper extremities. (6) Anemia Code(s): D64.9 - Anemia, unspecified Status: Acute Plan: Could be multifactorial. Also could be due to renal failure. Transfuse prn. Bleeding scan negative
--- NOTE | 2017-12-16 14:42 | P.PNCC ---
Subjective Subjective Remarks/Hospital Course: Patient was recently admitted to [facility] 11/22 and transferred to [facility] 11/26/17 after the following hospital course: 47-year-old -[place] male with reportedly no past medical or past surgical history who was admitted to hospitalist service 11/22/17 after presenting with abdominal pain, nausea, vomiting. He had CT abd/pelvis with massive gastric distention. NG tube had been placed. I was called to patient's bedside for CODE BLUE PEA arrest. CPR was ongoing and patient had massive abdominal distension and gastric regurgitant in the airway. He was emergently intubated and large amount of gastric secretions suctioned from oropharynx. After 21 minutes of CPR, ROSC was obtained and he was profoundly hypotensive. Continued aggressive fluid resuscitation and initiated dopamine. He was transferred to [facility] where CVL and R radial art line were placed and he was given 7 L of crystalloid and albumin. CXR demonstrated pneumoperitoneum and Dr. Martin Gudino was called emergently and he immediately contacted OR for emergent ex lap. He had intraabdominal hypertension with IAP of 40 mmHg, though fortunately was able to be ventilated adequately after rocuronium 50 mg IV and was transferred to OR. Dr. Martin Gudino took to the operating room early in the morning on 11/23 and discovered tension pneumoperitoneum, massive gastric distension, ischemia of the proximal 2/3 of the stomach and large gastric perforation with massive intraperitoneal contamination with food particles. Dr. Isaacs placed 2 NGT and decompressed 2 L of succus. Patient had initial improvement in vital signs in the immediate postoperative period, however he subsequently became hypotensive requiring upward titration of levophed and addition of vasopressin and stress dose hydrocortisone. He remains on levophed 10 mcg/min, neosynephrine 80 mcg/ min, vasopressin 0.04 units/min with overall vasopressor requirement weaning overnight. He is oliguric and creatinine is continuing to climb. He was given 2 L of crystalloid and albumin overnight. He does have significant fluid losses with combination of abdominal dressing and NGT output, so I will give an additional L of crystalloid now to monitor hourly response as he certainly does not appear volume overloaded. Nonetheless Flotrac numbers are suggesting adequate volume status and we may be seeing the consequence of ischemic ATN. May ultimately require HD, however not at this time. Abdomen remains open and plan is to re-explore 11/25. 11/25: Patient has acceptable hemodynamics by Flotrac but remains septic with requirements for phenylephrine 200 mics per minute, Levophed 8 mics per minute and vasopressin 0.04 units/min for blood pressure support. This has improved overnight and the Bhavesh-Synephrine support has been weaned off completely. Acid base balance is acceptable. ATN has developed which will undoubtedly require hemodialysis. Potassium level is normal. He is at increased risk for an anesthetic now but there is an urgent need to check for residual gastric necrosis. 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 Since the source control surgery, the maintenance of normal acid-base balance has been less difficult. Patient remains anuric with a rising creatinine above 6.0. He is clearly ahead on volume and will benefit from dialysis. A 2 lumen hemodialysis catheter was placed on 11/25 and has been packed with dilute heparin solution. The right internal jugular central line is been in place for 4 days and accessed multiple times. The femoral art line has been in for 4 days. Shock liver was apparent after the cardiac arrest reflecting a transaminitis, elevated bilirubin, and prolonged INR. The INR has remained normal following the transfusion of 4 units of fresh frozen plasma prior to surgery yesterday. A 10% dextrose infusion continues because of ongoing problems with hypoglycemia. Thrombocytopenia at 37,000 persists. He has remained on antibiotic coverage with Pipracil/tazobactam and fungal coverage with fluconazole, all adjusted for renal failure. Present vasopressor requirements include levophed at 7 mics per minute and vasopressin at 0.04 units/min. The chest x-ray is consistent with minor aspiration at the time of his preoperative cardiac arrest on the floor and cultures have subsequently grown Klebsiella, pansensitive. The operative note will clarify the extent of the surgery but in essence the distal esophagus is stapled off and marked with 2 Prolene sutures. The antrum of the stomach is oversewn. Most of the stomach has been removed. The abdomen is open with a VAC dressing applied. Subjective: 11/29: Bowel was in discontinuity following subtotal gastrectomy and patient was transferred to [facility]. On reexploration 11/28 he underwent Dinh-en-y esophagojejunostomy, feeding jejunostomy placement, diagnostic EGD, primary fascial closure. Wound vac was applied to abdomen (though currently wet to dry dressing in place upon arrival). He was reportedly found to have candidemia and was started on micafungin and has undergone ophtho eval. Lines including CVL, Vascath and art line have all been changed at [facility] (though not clear when). He remains on mechanical ventilation and has been weaned off pressors. He was found to have BUE DVTs and is on heparin drip. He is on TPN and has been started on trickle tube feeds with Nepro via jejunostomy. NGT is to [facility]. He underwent HD postoperatively on 11/28. He has now been transferred back to [facility] for ongoing management. I have updated his father and stepmother. 11/30: Patient re-admitted s/p transfer from [facility] overnight, otherwise no acute issues. Scheduled to undergo HD today. 12/01: T-max 101.7, leukocytosis to 27,000 with bandemia. Now 3 days following Dinh-en-Y reconstruction of GI tract following sub-total gastrectomy for gastric necrosis. All new lines placed after diagnosis of candidemia. TPN infusing, jejunostomy at trickle flow and can be increased slowly per general surgery. 12/02: Marked leukocytosis with bandemia persists. Afebrile over last 24 hours. Leave NG tube across the esophageal anastomosis and surgical service will direct timing of contrast study about 7 days following surgery. Continue with spontaneous breathing trials. 12/03: extubated yesterday. since then, has not followed commands, and does not talk. appears to have clinically an aphasia, although his uremia or severe hypoactive delirium could present this way. purposeful movements. will obtain MRI to rule out acute ischemia, as this appears to be a new mental status change (11/29 /[facility] notes state interactive on ventilator). 12/04: reintubated overnight: more output from ZAINAB drains. hgb dropped to 7 this AM: receiving 1 unit prbc. MRI negative for acute change. EEG ordered today to rule out subclinical status epilepticus. also concern overnight for aspiration event. 12/05: T-max 99. WBC 24,000. Reintubated yesterday for respiratory failure probably related to aspiration. Trickle feeding continues through jejunostomy. Nasogastric tube is through the anastomosis and is to low intermittent. 12/06: Afebrile. WBC 26,000. Bandemia has largely resolved. There are bilateral pleural effusions which may need to be tapped to rule out infection or leak. Both lower lobes are consolidated on CAT scan, probably representing compressive atelectasis from the effusions. 12/07: White count remains elevated at 25,000. Total parenteral nutrition infusing and tolerated. Altered mental status persists, possibly related to the cardiac arrest on the floor prior to transfer to the ICU. 12/08: Tolerating total parenteral nutrition with good glucose control. Leukocytosis persists. Fluid tap from left chest bit cloudy, cultures pending. Maintaining adequate gas exchange on lower levels of fractional inspired oxygen. Aim for extubation trial again soon. 12/09: Patient considerably less edematous over the past several days following successful dialysis runs. Continually fails attempts at weaning parameters and desaturation. Left chest drainage is no growth by culture. White blood cell count remains elevated. 12/10: Remains intubated. WBC count elevated but stable. Left chest tube with 260 mL output in 24 hours. BUN/creatinine remains elevated 12/11: Remains intubated sedated hemoglobin dropped to 5.8 today. RN has noted lower GI bleed. Protonix IV every 12 started and GI consulted. Transfuse 2 units PRBC. Keep n.p.o. discussed with Dr. Wellington 12/12: Patient remains intubated sedated for vent synchrony. Hemoglobin stable 7.5. Endoscopy negative yesterday CT abdomen pelvis no active bleeding. Hemodynamically remained stable. Receiving hemodialysis at this time. Left chest tube with high output 450 mL in 24 hours. Attempt weaning trials starting today 12/13: Patient continues to lose blood. Hemoglobin 5.5. Plan to get colonoscopy today. Continues to have melanotic stools. The night RN aspirated blood from jejunostomy tube. Enteroscopy yesterday was unremarkable. Transfusing 3 units of PRBC repeat hemoglobin at 2 PM. No significant bloody output from ZAINAB drains. Will discuss with general surgery 12/14: Remains intubated sedated hemoglobin 7.9 today 1 unit PRBC ordered. Can melanotic stools or NG tube coffee-ground today. EGD yesterday showed friable mucosa at the esophageal anastomotic junction which was injected by GI. Otherwise endoscopies including colonoscopies unremarkable. Hemodynamically remained stable. Discussed extensively with GI and general surgery yesterday 12/15: Patient continues to have significant melanotic stools. Hemoglobin dropped to 7.8 and patient received 1 unit PRBC follow-up hemoglobin only 7.9. Additional 1 unit PRBC ordered. Status post EGD colonoscopy-essentially unremarkable except irritation at the esophageal anastomotic site. Bleeding is most likely small intestinal 12/16: Critically ill but slightly more stable today no obvious melanotic stools. According to the bedside RN when the tube feeds were disconnected there was some bleeding from the jejunostomy tube. Hemoglobin remained stable 7.8. Discussed with Dr. Wellington general surgeon, and his opinion bleeding likely from mucosal sloughing. Initiate spontaneous breathing trials Objective Vital Signs / I&O: Vital Signs 12/15/17 15:00 12/15/17 16:00 12/15/17 17:00 Temperature 98.3 F Pulse Rate 103 H 109 H 108 H Respiratory Rate 20 20 19 Pulse Oximetry 100 100 100 12/15/17 17:51 12/15/17 17:53 12/15/17 18:00 Temperature Pulse Rate 116 H 119 H Respiratory Rate 20 22 22 Pulse Oximetry 100 100 12/15/17 19:00 12/15/17 20:00 12/15/17 21:00 Temperature 98.9 F Pulse Rate 124 H 116 H 115 H Respiratory Rate 29 H 94 H 56 H Pulse Oximetry 100 100 100 12/15/17 21:04 12/15/17 22:00 12/15/17 23:00 Temperature Pulse Rate 114 H 112 H 116 H Respiratory Rate 19 48 H 66 H Pulse Oximetry 100 100 100 12/16/17 00:00 12/16/17 00:22 12/16/17 01:00 Temperature 98.2 F Pulse Rate 114 H 110 H Respiratory Rate 18 20 18 Pulse Oximetry 100 100 100 12/16/17 02:00 12/16/17 03:00 12/16/17 04:00 Temperature 98.2 F Pulse Rate 110 H 109 H 121 H Respiratory Rate 18 21 20 Pulse Oximetry 100 100 100 12/16/17 05:00 12/16/17 05:07 12/16/17 06:00 Temperature Pulse Rate 113 H 113 H Respiratory Rate 21 20 21 Pulse Oximetry 100 100 100 12/16/17 06:25 12/16/17 09:04 Temperature 98.7 F Pulse Rate 117 H 113 H Respiratory Rate 19 18 Pulse Oximetry 100 100 Intake & Output 11/10/18 11/11/18 11/11/18 18:59 06:59 18:59 Intake Total 1732 / 1732 865 / 865 500 / 500 Output Total 995 / 995 2275 / 2275 Balance 737 / 737 -1410 / -1410 500 / 500 Weight 78.5 kg Intake: IV 545 / 545 300 / 300 500 / 500 Protonix Inj 80 MG In NS Inj 100 / 100 100 / 100 100 / 100 100 ML @ 10 mls/hr IV.CONT Q10H COLE Rx#:[id number] Diprivan 1000 mg/100 ml Inj 1, 100 / 100 100 / 100 000 mg In 100 ml @ 5 MCG/KG/MIN 2.859 mls/hr IV.CONT TITRATE PRN Rx#:[id number] Mycamine Inj 100 MG In NS Inj 100 / 100 100 ML @ 100 mls/hr IV.SIG Q24H COLE Rx#:[id number] Zosyn 2.25 GM Premix 50 ML @ 50 / 50 50 / 50 50 / 50 100 mls/hr IV.SIG Q8H COLE Rx#: [id number] NS Inj 250 ML @ 15 mls/hr IV. 45 / 45 SIG ONCE COLE Rx#:[id number] fentaNYL 10 mcg/mL Premix Drip 250 / 250 50 / 50 250 / 250 2,500 mcg In 250 ml @ 50 MCG/HR 5 mls/hr IV.SIG TITRATE PRN Rx #:[id number] Tube Feeding 317 / 317 565 / 565 Water Bolus Amount 220 / 220 Other 250 / 250 Rbc As-3 Leukoreduced Unit 250 / 250 [id number] Intake (Blood Product) Amt 400 / 400 0 / 0 Rbc As-3 Leukoreduced Unit 400 / 400 [id number] Rbc As-3 Leukoreduced Unit 0 / 0 [id number] Output: Urine 0 / 0 Stool 1300 / 1300 Gastric Drainage 25 / 25 Pre-Hospital Jejunostomy Tube 25 / 25 Wound Drainage 920 / 920 975 / 975 # 1 Right Abdomen 20 / 20 25 / 25 # 2 Right Abdomen 900 / 900 950 / 950 Chest Tube Drainage 50 / 50 #1 Left Pleural 50 / 50 Other: Other Intake Source Rbc As-3 Leukoreduced Unit Saline Solution [id number] Date of Last Bowel Movement 12/15/17 12/16/17 # Bowel Movements 5 1 # Incontinent Bowel Movements 5 Result Diagrams: 12/16/17 04:44 12/16/17 04:44 Objective Remarks: GEN: Chronically ill-appearing, propofol held for now HEENT: NCAT, pupils 3 mm and reactive bilaterally NECK: RIJ vasc-cath and LIJ TLC present, clean/ dry/ intact CARDIO: NSR, regular rhythm, no JVD PULM: Tolerating CPAP but slightly tachypneic. Scattered rhonchi persist, decreased breath sounds both bases. L pigtail in place ABD: Midline surgical bandages clean/ dry/ intact. ZAINAB #1 is anterior to esophagojejunostomy anastomosis, ZAINAB #2 posterior, both with serosanguineous drainage. Abdomen soft. Large amount of melanotic stools SKIN: No rashes or lesions, dry NEURO: Moves 4 limbs spontaneously. Purposeful with arms, tracks with eyes. Follow commands, more awake today. Assessment and Plan - Problem List (1) Gastric perforation Code(s): K25.5 - Chronic or unspecified gastric ulcer with perforation Status : Resolved (2) Status post total gastrectomy and Dinh-en-Y esophagojejunal anastomosis Code(s): Z90.3 - Acquired absence of stomach [part of]; Z98.0 - Intestinal bypass and anastomosis status Status: Acute (3) Ischemic hepatitis Code(s): K75.9 - Inflammatory liver disease, unspecified Status: Acute (4) Gastric necrosis Code(s): K31.89 - Other diseases of stomach and duodenum Status: Resolved (5) Thrombocytopenia Code(s): D69.6 - Thrombocytopenia, unspecified Status: Acute (6) Acute bilateral deep vein thrombosis (DVT) of upper extremities Code(s): I82.623 - Acute embolism and thrombosis of deep veins of upper extremity, bilateral Status: Acute (7) Anemia Code(s): D64.9 - Anemia, unspecified Status: Acute (8) Leukocytosis Code(s): D72.829 - Elevated white blood cell count, unspecified Status: Acute (9) Candidemia Code(s): B37.7 - Candidal sepsis Status: Acute (10) On total parenteral nutrition (TPN) Code(s): Z78.9 - Other specified health status Status: Acute (11) Hx of cardiac arrest Code(s): Z86.74 - Personal history of sudden cardiac arrest Status: Resolved (12) Acute hemodialysis patient Code(s): Z99.2 - Dependence on renal dialysis Status: Acute (13) JACLYN (acute kidney injury) Code(s): N17.9 - Acute kidney failure, unspecified Status: Acute (14) Aspiration pneumonia Code(s): J69.0 - Pneumonitis due to inhalation of food and vomit Status: Acute (15) Acute respiratory failure Code(s): J96.00 - Acute respiratory failure, unspecified whether with hypoxia or hypercapnia Status: Acute - Assessment and Plan Plan: NEURO: Acute metabolic encephalopathy On Fentanyl/versed drips for sedation, pain control. Improving neuro exam, continue daily sedation vacation RESP: Acute respiratory failure Left pleural effusion PRVC, Ventilator Bundle Start spontaneous breathing trials again Scheduled and as needed breathing treatments Left pigtail chest tube to wall suction-place on waterseal today clamp in a.m. for for possible removal CV: Cardiac arrest 11/23/17 (PEA arrest due to shock secondary to acute gastric perf and tension pneumoperitoneum) Septic shock, resolved Now off pressors. Hemodynamic monitoring Use as needed medication for hypertension Fluid removal with hemodialysis GI: s/p anterior gastric perforation with tension pneumoperitoneum status post ex lap with primary repair with stapler 11/23 On second look 11/25 he was found to have gastric necrosis requiring subtotal gastrectomy and placement of AB Thera VAC dressing. The bowel was in discontinuity and he was transferred to [facility]. On 11/28 he underwent reexploration with Dinh-en-y esophagojejunostomy, feeding jejunostomy placement, diagnostic EGD, primary fascial closure. Gastric necrosis , Ischemic hepatopathy GIB with blood loss anemia NGT to LIWS, leave above esophageal anastomosis to avoid irritation Bleeding appears to be mucosal bleeding at this point discussed with Dr. Carrington so Has feeding jejunostomy and tube feeds with Nepro resumed EGD, enteroscopy 12/12/2017 unremarkable, colonoscopy 12/13/2017 unremarkable. Bleeding scan yesterday did not show any particular site of bleeding ZAINAB drains in place #1 anterior to anastomosis, #2 posterior to the anastomosis. Management per general surgery. Continue TPN renal formula 35 mL/hr. Intermittent lipids daily. Wean TPN while advancing tube feeds wound vac was in place at outside hospital, currently wet to dry dressings in place upon arrival. Dr. Wellington general surgery following Had right upper quadrant ultrasound on 11/27/17 that demonstrated contracted gallbladder with sludge. No evidence of cholecystitis. Echogenicity in right liver related to focal fatty change or altered perfusion, patent vascularity. Protonix GTT FEN/RENAL: JACLYN secondary to ischemic ATN HD as started 11/26 at [place]. Has R IJ Vascath. Monitor I/O and electrolytes. Nephrology following ID: Gastric perforation with large amount particulate peritoneal contamination 11/23 Acute Aspiration pneumonia Candidemia (C Glabrata 11/26 at culture) Patient had been on micafungin 100 mg IV daily (started at ) with last administration at 10 AM on 11/29. Was previously on Diflucan IV. On Zosyn 2.25 IV every 8 hours with last administration 11/29 at noon. Continue zosyn/micafungin. ID following Dr. Millan Patient evaluated by ophthalmology prior to transfer. Do not see an ophthalmology note in the transfer documentation, requested document. Requested culture data from [facility]. Follow-up cultures here Sputum culture 11/24 with pansensitive Klebsiella pneumonia HEME: Anemia requiring transfusion Thrombocytopenia-resolved Bilateral upper extremity DVTs Transfuse 3 units PRBC 12/13, transfuse 1 unit PRBC 12/14/2017, 2U 12/15. GI workup as above. U/s 11/26 BUE - thrombus R axillary, brachial and basilic veins and thrombus in left axillary and left brachial veins. U/s bilateral lower extremities 11/26 at [facility] negative from common femoral to popliteal vein levels. Arrived on heparin drip, due to GI bleed and anemia all anticoagulation is being held Hematology consult was obtained at [facility] and recommended heparin drip and transfuse prn for platelets <50k. ENDO: Monitor Glucose q4 hours and use low dose insulin sliding scale as indicated. PROPH: s/q heparin held due to blood loss anemia, GIB. Protonix for stress ulcer prophylaxis. DVT prophylaxis. ACCESS: R IJ vascath , L IJ CVL. All existing lines were replaced at [facility]. Left IJ line accidentally was dislodged 12/23/2017, new left IJ line placed FULL CODE level 3 Remains very critical with continued GI bleed and anemia requiring transfusion. We are unable to find the source of bleed at this time which makes it difficult to manage. Most likely small intestinal bleeding. Will discuss again with GI and general surgery (6) Acute bilateral deep vein thrombosis (DVT) of upper extremities Qualifiers: Affected thrombotic vein of extremity: brachial Qualified Code(s): I82.623 - Acute embolism and thrombosis of deep veins of upper extremity, bilateral (15) Acute respiratory failure Qualifiers: Respiratory failure complication: hypoxia Qualified Code(s): J96.01 - Acute respiratory failure with hypoxia
--- NOTE | 2017-12-16 15:19 | P.PNGI ---
Subjective Interval history: Eyes open more alert today labs reviewed current hemoglobin 7.8 mild decrease over the past 24 hours from 8.1 Rectal Delgado with dark stools, bleeding scan performed on 12/15/2017 was unremarkable no obvious bleeding noted NG tube with minimal drainage today, no obvious bleeding Physical Exam Vital signs: Vital Signs 12/15/17 16:00 12/15/17 17:00 12/15/17 17:51 Temperature 98.3 F Pulse Rate 109 H 108 H 116 H Respiratory Rate 20 19 20 Pulse Oximetry 100 100 12/15/17 17:53 12/15/17 18:00 12/15/17 19:00 Temperature Pulse Rate 119 H 124 H Respiratory Rate 22 22 29 H Pulse Oximetry 100 100 100 12/15/17 20:00 12/15/17 21:00 12/15/17 21:04 Temperature 98.9 F Pulse Rate 116 H 115 H 114 H Respiratory Rate 94 H 56 H 19 Pulse Oximetry 100 100 100 12/15/17 22:00 12/15/17 23:00 12/16/17 00:00 Temperature 98.2 F Pulse Rate 112 H 116 H 114 H Respiratory Rate 48 H 66 H 18 Pulse Oximetry 100 100 100 12/16/17 00:22 12/16/17 01:00 12/16/17 02:00 Temperature Pulse Rate 110 H 110 H Respiratory Rate 20 18 18 Pulse Oximetry 100 100 100 12/16/17 03:00 12/16/17 04:00 12/16/17 05:00 Temperature 98.2 F Pulse Rate 109 H 121 H 113 H Respiratory Rate 21 20 21 Pulse Oximetry 100 100 100 12/16/17 05:07 12/16/17 06:00 12/16/17 06:25 Temperature 98.7 F Pulse Rate 113 H 117 H Respiratory Rate 20 21 19 Pulse Oximetry 100 100 100 12/16/17 07:00 12/16/17 08:00 12/16/17 09:00 Temperature 98.1 F Pulse Rate 113 H 114 H 112 H Respiratory Rate 19 18 28 H Pulse Oximetry 100 100 100 12/16/17 09:04 12/16/17 10:00 12/16/17 11:00 Temperature Pulse Rate 113 H 114 H 114 H Respiratory Rate 18 26 H 26 H Pulse Oximetry 100 100 100 12/16/17 12:00 12/16/17 13:00 12/16/17 14:00 Temperature 98.9 F Pulse Rate 112 H 113 H 113 H Respiratory Rate 27 H 28 H 27 H Pulse Oximetry 100 100 100 Intake & Output 12/15/17 12/16/17 12/16/17 18:59 06:59 18:59 Intake Total 1732 / 1732 865 / 865 600 / 600 Output Total 995 / 995 2275 / 2275 Balance 737 / 737 -1410 / -1410 600 / 600 Weight 78.5 kg Intake: IV 545 / 545 300 / 300 600 / 600 Protonix Inj 80 MG In NS Inj 100 / 100 100 / 100 100 / 100 100 ML @ 10 mls/hr IV.CONT Q10H COLE Rx#:[id number] Diprivan 1000 mg/100 ml Inj 1, 100 / 100 100 / 100 000 mg In 100 ml @ 5 MCG/KG/MIN 2.859 mls/hr IV.CONT TITRATE PRN Rx#:[id number] Mycamine Inj 100 MG In NS Inj 100 / 100 100 / 100 100 ML @ 100 mls/hr IV.SIG Q24H COLE Rx#:[id number] Zosyn 2.25 GM Premix 50 ML @ 50 / 50 50 / 50 50 / 50 100 mls/hr IV.SIG Q8H COLE Rx#: [id number] NS Inj 250 ML @ 15 mls/hr IV. 45 / 45 SIG ONCE COLE Rx#:[id number] fentaNYL 10 mcg/mL Premix Drip 250 / 250 50 / 50 250 / 250 2,500 mcg In 250 ml @ 50 MCG/HR 5 mls/hr IV.SIG TITRATE PRN Rx #:[id number] Tube Feeding 317 / 317 565 / 565 Water Bolus Amount 220 / 220 Other 250 / 250 Rbc As-3 Leukoreduced Unit 250 / 250 [id number] Intake (Blood Product) Amt 400 / 400 0 / 0 Rbc As-3 Leukoreduced Unit 400 / 400 [id number] Rbc As-3 Leukoreduced Unit 0 / 0 [id number] Output: Urine 0 / 0 Stool 1300 / 1300 Gastric Drainage 25 / 25 Pre-Hospital Jejunostomy Tube 25 / 25 Wound Drainage 920 / 920 975 / 975 # 1 Right Abdomen 20 / 20 25 / 25 # 2 Right Abdomen 900 / 900 950 / 950 Chest Tube Drainage 50 / 50 #1 Left Pleural 50 / 50 Other: Other Intake Source Rbc As-3 Leukoreduced Unit Saline Solution [id number] Date of Last Bowel Movement 12/15/17 12/16/17 12/16/17 # Bowel Movements 5 1 # Incontinent Bowel Movements 5 - Constitutional moderate distress, cachectic, disheveled, cooperative (Answer simple questions) - Routine HEENT Exam Head: Present: normocephalic ENT: Present: mucous membranes moist (ET tube) - Routine Neck Exam Present: supple - Routine Respiratory Exam Present: patient mechanically ventilated (Few rhonchi noted but no audible wheezing) - Routine Cardiovascular Exam Present: S1, S2 (Distant) - Routine Abdominal Exam Present: firm (taut, abdominal binder intact, very soft minimal bowel sounds left lower quadrant, patient shakes his head no to abdominal pain) - Routine Skin Exam Present: intact (Open abdominal wound with dressings and abdominal binder for support), pallor - Routine Neurological Exam Present: alert (Eyes open shakes his head to simple yes or no questions) - Urinary Catheter Management Indwelling Temp Sensing Catheter Cath placed during this visit: no Results - Labs CBC & Chem 7: 12/16/17 04:44 12/16/17 04:44 Laboratory Results - last 24 hr 12/04/17 12/12/17 12/15/17 10:46 23:15 07:56 WBC RBC Hgb Hct MCV MCH MCHC RDW Plt Count MPV Sodium Potassium Chloride Carbon Dioxide Anion Gap BUN Creatinine Estimated GFR POC Glucose Random Glucose Calcium Total Bilirubin AST ALT Alkaline Phosphatase Total Protein Albumin Lead Less than 1.0 MTS Gel Crossmatch See Detail See Detail 12/15/17 12/15/17 12/15/17 17:08 18:08 21:01 WBC RBC Hgb 8.9 L Hct 26.3 L MCV MCH MCHC RDW Plt Count MPV Sodium Potassium Chloride Carbon Dioxide Anion Gap BUN Creatinine Estimated GFR POC Glucose 121 H 113 H Random Glucose Calcium Total Bilirubin AST ALT Alkaline Phosphatase Total Protein Albumin Lead MTS Gel Crossmatch 12/15/17 12/16/17 12/16/17 23:55 00:08 04:44 WBC 19.7 H RBC 2.56 L Hgb 8.1 L 7.8 L Hct 23.1 L 22.6 L MCV 88.5 MCH 30.5 MCHC 34.5 RDW 16.0 Plt Count 252 MPV 9.6 Sodium Potassium Chloride Carbon Dioxide Anion Gap BUN Creatinine Estimated GFR POC Glucose 111 H Random Glucose Calcium Total Bilirubin AST ALT Alkaline Phosphatase Total Protein Albumin Lead MTS Gel Crossmatch 12/16/17 12/16/17 12/16/17 04:44 05:40 08:04 WBC RBC Hgb Hct MCV MCH MCHC RDW Plt Count MPV Sodium 143 Potassium 3.6 Chloride 106 Carbon Dioxide 21.3 Anion Gap 16 H BUN 89 H Creatinine 6.17 H Estimated GFR 12 L POC Glucose 147 H Random Glucose 125 H Calcium 7.6 L Total Bilirubin 0.8 AST 100 H ALT 121 H Alkaline Phosphatase 226 H Total Protein 5.5 L Albumin 1.4 L Lead MTS Gel Crossmatch See Detail 12/16/17 12:32 WBC RBC Hgb Hct MCV MCH MCHC RDW Plt Count MPV Sodium Potassium Chloride Carbon Dioxide Anion Gap BUN Creatinine Estimated GFR POC Glucose 141 H Random Glucose Calcium Total Bilirubin AST ALT Alkaline Phosphatase Total Protein Albumin Lead MTS Gel Crossmatch - Imaging Impressions GI Bleed Scan Nuclear Medicine 12/15/17 00:00 CONCLUSION: No active bleeding demonstrated. 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 Consult for possible lower GI bleeding- pt noted to have maroon colored stool Enteroscopy (12/11) S/P total gastrectomy, esophagojejunal anastomosis normal, some old blood, no fresh blood, no blood seen in jejunum NM bleeding scan (12/11) Negative CT abdomen/pelvis WO IV contrast (12/12) Postoperative abdomen appearance (12/12) Pt received 2 U PRBCs yesterday, H/H stable since last night. According to RN approximately 100 mL of liquid stool since last night. Family at bedside, agreeable to colonoscopy tomorrow. 12/13/17- Patient received 3 units prbc's this am. Pre- transfusion Hgb 5.5, HCT 16.1. Bedside RN reports large amount of maroon colored drainage noted in collection bag as well as large amount of leakage of melanotic stools around rectal tube. Abdomen firm and distended. BP 155/60, ST 118. Will check stat HH , EGD/ Colonoscopy today urgently, CT abdomen. (12/13/17)-Stat hemoglobin 9.6 hematocrit 28.4. 12/14/2017 WBC 21.2 hemoglobin 7.9 hematocrit 23.0. Maroon colored output markedly decreased in drainage collection bag. Patient currently receiving 1 unit of packed RBCs during hemodialysis. NG pulled back 6-800 mL by bedside RN to avoid irritation to area of anastomosis. 12/13/2017 EGD revealed the following findings--> 1. S/p total gastrectomy some small amount of bleeding at esophagojejunal anastomosis -s/p cautery with gold probe, 2 clips plied, epinephrin 1:10,000 2 cc injected some blood in jejunum 2. Retroflexion was not performed 12/13/2017 colonoscopy revealed the following--> 1. Old blood to cecum, no active bleeding 2. Retroflexed views revealed internal hemorrhoids 3. Retroflexed views revealed small internal hemorrhoids 4. Was performed 5. Revealed hemorrhoids 12/15/2017 NG tube and rectal tube which do show some dark with some coffee- ground combination stool noted and emesis via NG tube, low intermittent suction , previously had Nepro at 30 cc an hour .patient is awake responding to verbal stimuli current hemoglobin has dropped from 9-7.8 and WBC count trends down at 17.2 Transaminitis AST 121 ALT 138 probably related still to some shock liver, negative C. difficile last check. Patient is pending bleeding scan and nuclear medicine IR pending findings 12/16/2017 patient had bleeding scan on [id number] which was unremarkable. Still has dark stool noted in the tubing of rectal Delgado but no obvious bright red bleeding or maroon colored, minimal NG tube output today, serous secretions no coffee-ground noted, hemoglobin fairly stable at 7.8 with last check being 8.1 will need to continue to monitor. GI available as needed for any acute GI bleed, no further procedures for now Plan NG tube , low intermittent suction, monitor for any obvious bleeding Monitor labs and transfuse as needed dependent hemoglobin findings Monitor LFTs Maintain rectal tube for now and monitor bleeding Supportive care Patient was seen per myself and Dr. Royal , note was written on his behalf
[2017-12-17] MEDS: Propofol 1000 mg/100 ml Inj 1,000 MG/100 ML BOTTLE IV.CONT PRN ×4 (03:06→22:36)
[2017-12-17] MEDS: Oral Hygiene Kit OROPHARYNG SCH ×4 (03:08→16:21)
[2017-12-17] MEDS: Piperacil/Tazo 2.25 GM Premix 50 ML IV.SIG SCH ×4 (03:11→22:06)
--- NOTE | 2017-12-17 04:11 | XR ---
EXAM DATE: 12/17/2017 4:05 AM EST AGE/SEX: 47 years / Male INDICATIONS: Respiratory distress. CLINICAL DATA: This is the patient's subsequent encounter. Patient reports that signs and symptoms h ave been present for 2 weeks and indicates a pain score of Nonresponsive. MEDICAL/SURGICAL HISTORY: . Cardiac arrest. Chest tube, left. Vas cath. Gastrectomy. Dinh en Y esophagojejunostomy. COMPARISON: [facility] [place], CHEST 1V SINGLE AP, 12/14/2017. . FINDINGS: 2 AP views of the chest. Endotracheal tube, nasogastric tube, right subclavian central venous cathete r, and left subclavian central venous catheter remain in place. Persistent left lower lobe consolidat ion versus atelectasis and small left pleural effusion. No significant interval change. CONCLUSION: No significant interval change with persistent left lower lobe consolidation versus atelectasis. Electronically signed by: Zheng Beth MD 12/17/2017 4:10 AM EST
[2017-12-17 06:03] LABS: Mean Corpuscular HGB Conc 33.3 % (32.0-36.0); Mean Corpuscular Hemoglobin 28.4 pg (27.0-34.0); Mean Corpuscular Volume 85.3 fL (80.0-100.0); Mean Platelet Volume 9.2 fL (7.0-11.0); Platelet Count 243 th/mm3 (150-450); Red Cell Distribution Width 23.1 % (11.6-17.2); White Blood Count 18.1 th/mm3 (4.0-11.0)
[2017-12-17 06:15] LABS: Hemoglobin 5.4 gm/dL (13.0-17.0)
[2017-12-17 06:16] LABS: Hematocrit 16.2 % (39.0-51.0)
[2017-12-17] MEDS: Pantoprazole Inj 80 MG in Sodium Chlor 0.9% Inj 100 ML IV.CONT SCH ×2 (06:25→16:21)
[2017-12-17 06:30] LABS: Albumin 1.3 g/dL (3.4-5.0); Calcium 7.2 mg/dL (8.5-10.1); Carbon Dioxide 18.4 meq/L (21.0-32.0); Magnesium 2.6 mg/dL (1.5-2.5); Phosphorus 8.3 mg/dL (2.5-4.9); Potassium 3.5 meq/L (3.5-5.1); Total Protein 4.9 g/dL (6.4-8.2)
[2017-12-17] MEDS ORDERED: Sodium Chlor 0.9% Inj 250 ML IV.SIG SCH (07:00)
[2017-12-17] MEDS: Insulin NovoLOG Aspart Correctional Sugar Inj SQ SCH ×6 (08:00→21:02)
[2017-12-17] MEDS: hydrALAZINE 50 MG Tablet PO SCH ×4 (08:53→17:32)
[2017-12-17] MEDS: fentaNYL 10 mcg/mL Premix Drip 2,500 MCG/250 ML BAG IV.SIG PRN (09:05)
[2017-12-17] MEDS: Albumin Human 25% Inj 100 ML IV.SIG PRN ×2 (09:33→09:39)
--- NOTE | 2017-12-17 10:31 | P.PNGS ---
Subjective Interval history: Resting in bed Eyes open Physical Exam Vital signs: Vital Signs 12/16/17 11:00 12/16/17 12:00 12/16/17 13:00 Temperature 98.9 F Pulse Rate 114 H 112 H 113 H Respiratory Rate 26 H 27 H 28 H Blood Pressure Pulse Oximetry 100 100 100 12/16/17 14:00 12/16/17 15:00 12/16/17 16:00 Temperature 99 F Pulse Rate 113 H 110 H 110 H Respiratory Rate 27 H 27 H 27 H Blood Pressure Pulse Oximetry 100 100 100 12/16/17 17:00 12/16/17 17:10 12/16/17 18:00 Temperature 98.2 F Pulse Rate 112 H 111 H 110 H Respiratory Rate 26 H 23 23 Blood Pressure Pulse Oximetry 100 100 100 12/16/17 19:00 12/16/17 20:00 12/16/17 20:36 Temperature 99.3 F Pulse Rate 111 H 109 H 112 H Respiratory Rate 23 Blood Pressure 136/58 L Pulse Oximetry 100 100 12/16/17 21:00 12/16/17 22:00 12/16/17 23:00 Temperature Pulse Rate 110 H 113 H 109 H Respiratory Rate 29 H 33 H 29 H Blood Pressure Pulse Oximetry 95 100 100 12/17/17 00:00 12/17/17 01:00 12/17/17 02:00 Temperature 98.7 F Pulse Rate 112 H 109 H 107 H Respiratory Rate 24 27 H 24 Blood Pressure 134/57 L Pulse Oximetry 100 100 100 12/17/17 03:00 12/17/17 03:27 12/17/17 04:00 Temperature Pulse Rate 106 H 106 H 107 H Respiratory Rate 36 H 20 36 H Blood Pressure 134/57 L Pulse Oximetry 100 100 100 12/17/17 05:00 12/17/17 06:00 12/17/17 09:14 Temperature 98.8 F Pulse Rate 108 H 109 H 120 H Respiratory Rate 25 H 63 H 20 Blood Pressure Pulse Oximetry 100 100 96 12/17/17 09:21 12/17/17 09:35 12/17/17 09:54 Temperature 98.8 F 99.2 F Pulse Rate 119 H 117 H Respiratory Rate 20 19 18 Blood Pressure Pulse Oximetry 98 100 100 12/17/17 09:59 Temperature Pulse Rate 112 H Respiratory Rate 22 Blood Pressure Pulse Oximetry Intake & Output 12/16/17 12/17/17 12/17/17 18:59 06:59 18:59 Intake Total 1659 / 1659 600 / 600 650 / 650 Output Total 590 / 590 500 / 500 Balance 1069 / 1069 100 / 100 650 / 650 Weight 74.54 kg Intake: IV 750 / 750 600 / 600 250 / 250 Protonix Inj 80 MG In NS Inj 200 / 200 100 / 100 100 ML @ 10 mls/hr IV.CONT Q10H COLE Rx#:[id number] Diprivan 1000 mg/100 ml Inj 1, 100 / 100 200 / 200 000 mg In 100 ml @ 5 MCG/KG/MIN 2.859 mls/hr IV.CONT TITRATE PRN Rx#:[id number] Flexbumin 25% Inj 100 ML @ 60 200 / 200 mls/hr IV.SIG WITH DIALYSIS PRN Rx#:[id number] Mycamine Inj 100 MG In NS Inj 100 / 100 100 ML @ 100 mls/hr IV.SIG Q24H COLE Rx#:[id number] Zosyn 2.25 GM Premix 50 ML @ 100 / 100 50 / 50 50 / 50 100 mls/hr IV.SIG Q8H COLE Rx#: [id number] fentaNYL 10 mcg/mL Premix Drip 250 / 250 250 / 250 2,500 mcg In 250 ml @ 50 MCG/HR 5 mls/hr IV.SIG TITRATE PRN Rx #:[id number] Tube Feeding 669 / 669 Water Bolus Amount 240 / 240 Intake (Blood Product) Amt 400 / 400 Rbc As-3 Leukoreduced Unit 0 / 0 [id number] Rbc As-3 Leukoreduced Unit 400 / 400 [id number] Rbc As-3 Leukoreduced Unit 0 / 0 [id number] Output: Urine 0 / 0 Gastric Drainage 0 / 0 Right Nare Nasogastric Tube 0 / 0 Wound Drainage 550 / 550 500 / 500 # 1 Right Abdomen 0 / 0 0 / 0 # 2 Right Abdomen 550 / 550 500 / 500 Chest Tube Drainage 40 / 40 #1 Left Pleural 40 / 40 Other: Date of Last Bowel Movement 12/16/17 12/17/17 # Bowel Movements 6 Narrative: Eyes open Abd: soft; non tender; midline incision healing nicely; JP1 with clot; JP2 with serous slightly hazy fluid BUE edema - Urinary Catheter Management Indwelling Temp Sensing Catheter Cath placed during this visit: no Results - Labs 12/17/17 05:18 12/17/17 05:18 Laboratory Results - last 24 hr 12/04/17 12/16/17 12/16/17 10:46 05:40 12:32 WBC RBC Hgb Hct MCV MCH MCHC RDW Plt Count MPV Sodium Potassium Chloride Carbon Dioxide Anion Gap BUN Creatinine Estimated GFR POC Glucose 141 H Random Glucose Calcium Prot Corrected Calcium Phosphorus Magnesium Total Bilirubin AST ALT Alkaline Phosphatase Total Protein Albumin Blood Type Antibody Screen MTS Gel Crossmatch See Detail See Detail 12/16/17 12/16/17 12/17/17 17:33 20:28 01:52 WBC RBC Hgb Hct MCV MCH MCHC RDW Plt Count MPV Sodium Potassium Chloride Carbon Dioxide Anion Gap BUN Creatinine Estimated GFR POC Glucose 149 H 146 H 141 H Random Glucose Calcium Prot Corrected Calcium Phosphorus Magnesium Total Bilirubin AST ALT Alkaline Phosphatase Total Protein Albumin Blood Type Antibody Screen MTS Gel Crossmatch 12/17/17 12/17/17 12/17/17 05:18 05:18 07:02 WBC 18.1 H RBC 1.90 L Hgb 5.4 L* D Hct 16.2 L* MCV 85.3 MCH 28.4 MCHC 33.3 RDW 23.1 H D Plt Count 243 MPV 9.2 Sodium 146 H Potassium 3.5 Chloride 111 H Carbon Dioxide 18.4 L Anion Gap 17 H BUN 108 H Creatinine 7.09 H Estimated GFR 10 L POC Glucose Random Glucose 126 H Calcium 7.2 L* Prot Corrected Calcium 8.4 L Phosphorus 8.3 H D Magnesium 2.6 H Total Bilirubin 0.5 AST 74 H ALT 94 H Alkaline Phosphatase 156 H Total Protein 4.9 L D Albumin 1.3 L Blood Type A Positive Antibody Screen Negative MTS Gel Crossmatch See Detail - Imaging Imaging: ITS Impressions Head MRI 12/03/17 00:00 CONCLUSION: 1. Minimal nonspecific periventricular white matter changes. 2. No restricted diffusion to suggest an acute ischemic event. 3. No evidence for significant ischemic changes. Chest CT 12/04/17 00:06 CONCLUSION: 1. Left greater than right pleural effusions and basilar atelectasis. 2. No hemorrhage or hematoma demonstrated. 3. Distended and fluid-filled esophagus. No wall thickening. Patient is status post gastrectomy. Nasogastric tube is at the GE junction. 4. Body wall edema/anasarca. Abdomen X-Ray 12/08/17 00:00 CONCLUSION: 1. 2 left-sided abdominal catheters. 2. Nonspecific bowel gas pattern. Abdomen/Pelvis CT 12/13/17 00:00 CONCLUSION: 1. New proximal small bowel dilatation. No discrete transition point. Contrast is seen in the distal small bowel. Findings may represent ileus or partial obstruction. 2. Postsurgical findings with surgical drains in the left upper quadrant. Free fluid is seen in the left upper quadrant. Loculated rounded 5 cm area of fluid with thin peripheral enhancement also noted just inferior to the surgical drains. 3. Prominent left lower lobe pulmonary consolidation and small left pleural effusion. GI Bleed Scan Nuclear Medicine 12/15/17 00:00 CONCLUSION: No active bleeding demonstrated. Chest X-Ray 12/17/17 06:00 CONCLUSION: No significant interval change with persistent left lower lobe consolidation versus atelectasis. Assessment and Plan - Assessment (1) Gastric perforation Code(s): K25.5 - Chronic or unspecified gastric ulcer with perforation Status : Resolved Plan: 47yo male s/p Exlap and gastrectomy for gastric perforation, s/p esoph[facility]jejunostomy at [facility] -Intubated---vent per CCM -If unable to wean from vent will need tracheostomy tube this week likely -TF at 50 cc via J tube ---tolerating -Hmg dropped again this morning--- transfusing 3 units PRBCs today -S/p EGD/colonoscopy and NM bleeding scan -Continue to monitor/follow from surgery standpoint - Plan I personally evaluated the patient room 1313. He has open eyes. His aunt is at his bedside. We evaluated his abdomen is midline incision is now probably three quarters granulation tissue. He has small amount of bilious drainage around the jejunostomy tube. ZAINAB drain #1 had just old blood clot and no other drainage in it and it has been that way for several days and I removed it. His other ZAINAB drain was draining just clear yellow serous fluid. There is cloudiness in the drainage bulb but no cloudiness and certainly nothing that is consistent with tube feeding in the drainage bulb. It is consistent with third space fluid in the peritoneal cavity. The exam, history, and the medical decision-making described in the above note were completed with the assistance of the mid-level provider. I reviewed and agree with the findings presented. I attest that I had a [id number] encounter with the patient on the same day, and personally performed and documented my assessment and findings in the medical record.
--- NOTE | 2017-12-17 12:11 | P.PNNP ---
Subjective Interval history: Patient was seen during dialysis. Blood flow rate 350 ml/min, UF goal 3.5 L, 3K. Hemoglobin was 5.4, was getting blood transfusion with dialysis. Patient is tolerating tube feedings. Spontaneous breathing trials initiated 12/16, per reviewing notes if unable to wean from vent will need tracheostomy tube this week. <Jocelyn Crews - Last Filed: 12/17/17 11:58> Physical Exam Vital signs: Vital Signs 12/16/17 12:00 12/16/17 13:00 12/16/17 14:00 Temperature 98.9 F Pulse Rate 112 H 113 H 113 H Respiratory Rate 27 H 28 H 27 H Blood Pressure Pulse Oximetry 100 100 100 12/16/17 15:00 12/16/17 16:00 12/16/17 17:00 Temperature 99 F Pulse Rate 110 H 110 H 112 H Respiratory Rate 27 H 27 H 26 H Blood Pressure Pulse Oximetry 100 100 100 12/16/17 17:10 12/16/17 18:00 12/16/17 19:00 Temperature 98.2 F 99.3 F Pulse Rate 111 H 110 H 111 H Respiratory Rate 23 23 Blood Pressure 136/58 L Pulse Oximetry 100 100 100 12/16/17 20:00 12/16/17 20:36 12/16/17 21:00 Temperature Pulse Rate 109 H 112 H 110 H Respiratory Rate 23 29 H Blood Pressure Pulse Oximetry 100 95 12/16/17 22:00 12/16/17 23:00 12/17/17 00:00 Temperature 98.7 F Pulse Rate 113 H 109 H 112 H Respiratory Rate 33 H 29 H 24 Blood Pressure 134/57 L Pulse Oximetry 100 100 100 12/17/17 01:00 12/17/17 02:00 12/17/17 03:00 Temperature Pulse Rate 109 H 107 H 106 H Respiratory Rate 27 H 24 36 H Blood Pressure Pulse Oximetry 100 100 100 12/17/17 03:27 12/17/17 04:00 12/17/17 05:00 Temperature Pulse Rate 106 H 107 H 108 H Respiratory Rate 20 36 H 25 H Blood Pressure 134/57 L Pulse Oximetry 100 100 100 12/17/17 06:00 12/17/17 09:14 12/17/17 09:21 Temperature 98.8 F 98.8 F Pulse Rate 109 H 120 H 119 H Respiratory Rate 63 H 20 20 Blood Pressure Pulse Oximetry 100 96 98 12/17/17 09:35 12/17/17 09:54 12/17/17 09:59 Temperature 99.2 F Pulse Rate 117 H 112 H Respiratory Rate 19 18 22 Blood Pressure Pulse Oximetry 100 100 Intake & Output 12/16/17 12/17/17 12/17/17 18:59 06:59 18:59 Intake Total 1659 / 1659 600 / 600 1700 / 1700 Output Total 590 / 590 500 / 500 3000 / 3000 Balance 1069 / 1069 100 / 100 -1300 / -1300 Weight 74.54 kg Intake: IV 750 / 750 600 / 600 250 / 250 Protonix Inj 80 MG In NS Inj 200 / 200 100 / 100 100 ML @ 10 mls/hr IV.CONT Q10H COLE Rx#:[id number] Diprivan 1000 mg/100 ml Inj 1, 100 / 100 200 / 200 000 mg In 100 ml @ 5 MCG/KG/MIN 2.859 mls/hr IV.CONT TITRATE PRN Rx#:[id number] Flexbumin 25% Inj 100 ML @ 60 200 / 200 mls/hr IV.SIG WITH DIALYSIS PRN Rx#:[id number] Mycamine Inj 100 MG In NS Inj 100 / 100 100 ML @ 100 mls/hr IV.SIG Q24H COLE Rx#:[id number] Zosyn 2.25 GM Premix 50 ML @ 100 / 100 50 / 50 50 / 50 100 mls/hr IV.SIG Q8H COLE Rx#: [id number] fentaNYL 10 mcg/mL Premix Drip 250 / 250 250 / 250 2,500 mcg In 250 ml @ 50 MCG/HR 5 mls/hr IV.SIG TITRATE PRN Rx #:[id number] Tube Feeding 669 / 669 Water Bolus Amount 240 / 240 Other 250 / 250 Rbc As-3 Leukoreduced Unit 250 / 250 [id number] Intake (Blood Product) Amt 1200 / 1200 Rbc As-3 Leukoreduced Unit 400 / 400 [id number] Rbc As-3 Leukoreduced Unit 400 / 400 [id number] Rbc As-3 Leukoreduced Unit 400 / 400 [id number] Output: Urine 0 / 0 Hemodialysis Amount 3000 / 3000 Gastric Drainage 0 / 0 Right Nare Nasogastric Tube 0 / 0 Wound Drainage 550 / 550 500 / 500 # 1 Right Abdomen 0 / 0 0 / 0 # 2 Right Abdomen 550 / 550 500 / 500 Chest Tube Drainage 40 / 40 #1 Left Pleural 40 / 40 Other: Date of Last Bowel Movement 12/16/17 12/17/17 # Bowel Movements 6 - Constitutional no acute distress - Routine HEENT Exam Head: Present: normocephalic ENT: Present: mucous membranes moist - Routine Neck Exam Present: supple, trachea midline. Absent: tracheal deviation - Routine Respiratory Exam Present: patient mechanically ventilated. Absent: accessory muscle use, respiratory distress - Routine Cardiovascular Exam Present: RRR, tachycardia - Routine Abdominal Exam Present: firm Comments: Patient has abdominal binder on - Routine Extremities Exam Present: edema, vascular access Comments: Bilateral upper extremity edema. VasCath for dialysis. 2 ZAINAB drains, one with serosanguineous fluid and the other with sanguineous fluid. - Routine Neurological Exam Absent: alert - Routine Psychiatric Exam Present: unable to assess - Urinary Catheter Management Indwelling Temp Sensing Catheter Cath placed during this visit: no <Jocelyn Crews - Last Filed: 12/17/17 11:58> Vital signs: Vital Signs 12/17/17 09:54 12/17/17 09:59 12/17/17 10:00 Temperature Pulse Rate 112 H 112 H Respiratory Rate 18 22 28 H Blood Pressure Pulse Oximetry 100 100 12/17/17 11:00 12/17/17 12:00 12/17/17 12:35 Temperature 99.2 F Pulse Rate 109 H 107 H Respiratory Rate 24 44 H 23 Blood Pressure 129/56 L Pulse Oximetry 100 100 100 12/17/17 13:00 12/17/17 14:00 12/17/17 14:42 Temperature Pulse Rate 108 H 104 H Respiratory Rate 50 H 65 H 19 Blood Pressure Pulse Oximetry 100 100 100 12/17/17 15:00 12/17/17 16:00 12/17/17 16:34 Temperature 99.6 F Pulse Rate 108 H 109 H Respiratory Rate 72 H 85 H 17 Blood Pressure 146/59 H Pulse Oximetry 92 L 98 12/17/17 17:00 12/17/17 18:00 12/17/17 19:00 Temperature Pulse Rate 112 H 113 H 120 H Respiratory Rate 35 H 81 H 79 H Blood Pressure Pulse Oximetry 99 100 100 12/17/17 20:00 12/17/17 21:00 12/17/17 21:45 Temperature 101.2 F H Pulse Rate 116 H 116 H Respiratory Rate 24 20 23 Blood Pressure 130/44 L Pulse Oximetry 99 100 100 12/17/17 22:00 12/17/17 23:00 12/18/17 00:00 Temperature 99.6 F Pulse Rate 117 H 110 H 114 H Respiratory Rate 24 22 79 H Blood Pressure 160/60 H Pulse Oximetry 100 100 100 12/18/17 01:00 12/18/17 02:00 12/18/17 03:00 Temperature Pulse Rate 110 H 107 H 109 H Respiratory Rate 58 H 19 18 Blood Pressure Pulse Oximetry 100 100 100 12/18/17 04:00 12/18/17 04:23 12/18/17 05:00 Temperature 99.1 F Pulse Rate 107 H 107 H Respiratory Rate 21 20 22 Blood Pressure 141/54 H Pulse Oximetry 100 100 100 12/18/17 06:00 12/18/17 09:42 Temperature 99.2 F Pulse Rate 106 H 112 H Respiratory Rate 21 25 H Blood Pressure Pulse Oximetry 100 100 Intake & Output 12/17/17 12/18/17 12/18/17 18:59 06:59 18:59 Intake Total 2840 / 2840 1597 / 1597 Output Total 4520 / 4520 1960 / 1960 Balance -1680 / -1680 -363 / -363 Weight 70.7 kg Intake: IV 700 / 700 865 / 865 Protonix Inj 80 MG In NS Inj 100 / 100 100 / 100 100 ML @ 10 mls/hr IV.CONT Q10H COLE Rx#:[id number] Diprivan 1000 mg/100 ml Inj 1, 200 / 200 100 / 100 000 mg In 100 ml @ 5 MCG/KG/MIN 2.859 mls/hr IV.CONT TITRATE PRN Rx#:[id number] Ofirmev Inj 650 mg In 65 ml @ 65 / 65 400 mls/hr IV.SIG Q6H PRN Rx#: [id number] Flexbumin 25% Inj 100 ML @ 60 200 / 200 mls/hr IV.SIG WITH DIALYSIS PRN Rx#:[id number] Mycamine Inj 100 MG In NS Inj 100 / 100 100 ML @ 100 mls/hr IV.SIG Q24H COLE Rx#:[id number] Zosyn 2.25 GM Premix 50 ML @ 100 / 100 100 / 100 100 mls/hr IV.SIG Q8H COLE Rx#: [id number] NS Inj 250 ML @ 15 mls/hr IV. 250 / 250 SIG ONCE COLE Rx#:[id number] fentaNYL 10 mcg/mL Premix Drip 250 / 250 2,500 mcg In 250 ml @ 50 MCG/HR 5 mls/hr IV.SIG TITRATE PRN Rx #:[id number] Tube Feeding 600 / 600 612 / 612 Water Bolus Amount 120 / 120 Other 340 / 340 Rbc As-3 Leukoreduced Unit 250 / 250 [id number] Intake (Blood Product) Amt 1200 / 1200 Rbc As-3 Leukoreduced Unit 400 / 400 [id number] Rbc As-3 Leukoreduced Unit 400 / 400 [id number] Rbc As-3 Leukoreduced Unit 400 / 400 [id number] Output: Urine 0 / 0 Urine/Stool Mix 1000 / 1000 1300 / 1300 Hemodialysis Amount 3000 / 3000 Gastric Drainage 0 / 0 Right Nare Nasogastric Tube 0 / 0 Wound Drainage 500 / 500 650 / 650 # 1 Right Abdomen 0 / 0 # 2 Right Abdomen 500 / 500 650 / 650 Chest Tube Drainage #1 Left Pleural Other: Date of Last Bowel Movement 12/17/17 12/18/17 # Incontinent Bowel Movements 3 - Urinary Catheter Management Indwelling Temp Sensing Catheter Cath placed during this visit: no <Filipe Robertson - Last Filed: 12/18/17 09:44> Assessment and Plan - Assessment (1) JACLYN (acute kidney injury) Code(s): N17.9 - Acute kidney failure, unspecified Status: Acute Plan: Anuric renal failure. He has become dialysis dependent. Patient was seen during dialysis. Blood flow rate 350 ml/min, UF goal 3.5 L, 3K. Monitor for recovery. Continue supportive care. Avoid nephrotoxic agents. Patient on PhosLo, monitor phosphorus levels intermittently. (2) Acute respiratory failure Code(s): J96.00 - Acute respiratory failure, unspecified whether with hypoxia or hypercapnia Status: Acute Qualifiers: Respiratory failure complication: hypoxia Qualified Code(s): J96.01 - Acute respiratory failure with hypoxia Plan: On the ventilator. Possible aspiration. Patient has left sided chest tube in place. (3) Gastric perforation Code(s): K25.5 - Chronic or unspecified gastric ulcer with perforation Status : Resolved Plan: s/p surgery. Subtotal gastrectomy in [place]. In [facility] he had: Dinh-en-y esophagojejunostomy, feeding jejunostomy placement, diagnostic EGD, primary fascial closure. Date of procedure: 11/28/17 Negative bleeding scan - follow with GI, surgery. No immediate surgical plans at this point (4) Candidemia Code(s): B37.7 - Candidal sepsis Status: Acute Plan: On Micafungin. Dose medications appropriate to renal function. (5) DVT (deep venous thrombosis) Code(s): I82.409 - Acute embolism and thrombosis of unspecified deep veins of unspecified lower extremity Status: Acute Plan: DVT of bilateral upper extremities. (6) Anemia Code(s): D64.9 - Anemia, unspecified Status: Acute Plan: Could be multifactorial. Also could be due to renal failure. Hgb 5.4. 3 units of PRBC ordered, patient was receiving transfusion with dialysis. Transfuse prn. Bleeding scan negative <Jocelyn Crews - Last Filed: 12/17/17 11:58> - Assessment (1) JACLYN (acute kidney injury) Code(s): N17.9 - Acute kidney failure, unspecified Status: Acute (2) Acute respiratory failure Code(s): J96.00 - Acute respiratory failure, unspecified whether with hypoxia or hypercapnia Status: Acute Qualifiers: Respiratory failure complication: hypoxia Qualified Code(s): J96.01 - Acute respiratory failure with hypoxia (3) Gastric perforation Code(s): K25.5 - Chronic or unspecified gastric ulcer with perforation Status : Resolved (4) Candidemia Code(s): B37.7 - Candidal sepsis Status: Acute (5) DVT (deep venous thrombosis) Code(s): I82.409 - Acute embolism and thrombosis of unspecified deep veins of unspecified lower extremity Status: Acute (6) Anemia Code(s): D64.9 - Anemia, unspecified Status: Acute - Attending Attestation patient was seen and examined. Agree with above assessment and plan. <Filipe Robertson - Last Filed: 12/18/17 09:44>
--- NOTE | 2017-12-17 12:33 | P.PNID ---
Subjective Remarks: Currently sedated on the ventilator. Received blood transfusion. Just finished dialysis. Blood pressure was low earlier. Afebrile. Cultures have no growth. White blood cell count still elevated. Reintubated 12/04 Antibiotics: Micafungin Zosyn Allergies/Adverse Reactions: Allergies No Known Allergies Allergy (Verified 11/22/17 02:38) Objective Vital Signs 12/16/17 13:00 12/16/17 14:00 12/16/17 15:00 Temperature Pulse Rate 113 H 113 H 110 H Respiratory Rate 28 H 27 H 27 H Blood Pressure Pulse Oximetry 100 100 100 12/16/17 16:00 12/16/17 17:00 12/16/17 17:10 Temperature 99 F Pulse Rate 110 H 112 H 111 H Respiratory Rate 27 H 26 H 23 Blood Pressure Pulse Oximetry 100 100 100 12/16/17 18:00 12/16/17 19:00 12/16/17 20:00 Temperature 98.2 F 99.3 F Pulse Rate 110 H 111 H 109 H Respiratory Rate 23 Blood Pressure 136/58 L Pulse Oximetry 100 100 12/16/17 20:36 12/16/17 21:00 12/16/17 22:00 Temperature Pulse Rate 112 H 110 H 113 H Respiratory Rate 23 29 H 33 H Blood Pressure Pulse Oximetry 100 95 100 12/16/17 23:00 12/17/17 00:00 12/17/17 01:00 Temperature 98.7 F Pulse Rate 109 H 112 H 109 H Respiratory Rate 29 H 24 27 H Blood Pressure 134/57 L Pulse Oximetry 100 100 100 12/17/17 02:00 12/17/17 03:00 12/17/17 03:27 Temperature Pulse Rate 107 H 106 H 106 H Respiratory Rate 24 36 H 20 Blood Pressure Pulse Oximetry 100 100 100 12/17/17 04:00 12/17/17 05:00 12/17/17 06:00 Temperature Pulse Rate 107 H 108 H 109 H Respiratory Rate 36 H 25 H 63 H Blood Pressure 134/57 L Pulse Oximetry 100 100 100 12/17/17 09:14 12/17/17 09:21 12/17/17 09:35 Temperature 98.8 F 98.8 F 99.2 F Pulse Rate 120 H 119 H 117 H Respiratory Rate 20 20 19 Blood Pressure Pulse Oximetry 96 98 100 11/12/18 09:54 12/17/17 09:59 Temperature Pulse Rate 112 H Respiratory Rate 18 22 Blood Pressure Pulse Oximetry 100 Intake & Output 12/16/17 12/17/17 12/17/17 18:59 06:59 18:59 Intake Total 1659 / 1659 600 / 600 1700 / 1700 Output Total 590 / 590 500 / 500 3000 / 3000 Balance 1069 / 1069 100 / 100 -1300 / -1300 Weight 74.54 kg Intake: IV 750 / 750 600 / 600 250 / 250 Protonix Inj 80 MG In NS Inj 200 / 200 100 / 100 100 ML @ 10 mls/hr IV.CONT Q10H COLE Rx#:[id number] Diprivan 1000 mg/100 ml Inj 1, 100 / 100 200 / 200 000 mg In 100 ml @ 5 MCG/KG/MIN 2.859 mls/hr IV.CONT TITRATE PRN Rx#:[id number] Flexbumin 25% Inj 100 ML @ 60 200 / 200 mls/hr IV.SIG WITH DIALYSIS PRN Rx#:[id number] Mycamine Inj 100 MG In NS Inj 100 / 100 100 ML @ 100 mls/hr IV.SIG Q24H COLE Rx#:[id number] Zosyn 2.25 GM Premix 50 ML @ 100 / 100 50 / 50 50 / 50 100 mls/hr IV.SIG Q8H COLE Rx#: [id number] fentaNYL 10 mcg/mL Premix Drip 250 / 250 250 / 250 2,500 mcg In 250 ml @ 50 MCG/HR 5 mls/hr IV.SIG TITRATE PRN Rx #:[id number] Tube Feeding 669 / 669 Water Bolus Amount 240 / 240 Other 250 / 250 Rbc As-3 Leukoreduced Unit 250 / 250 [id number] Intake (Blood Product) Amt 1200 / 1200 Rbc As-3 Leukoreduced Unit 400 / 400 [id number] Rbc As-3 Leukoreduced Unit 400 / 400 [id number] Rbc As-3 Leukoreduced Unit 400 / 400 [id number] Output: Urine 0 / 0 Hemodialysis Amount 3000 / 3000 Gastric Drainage 0 / 0 Right Nare Nasogastric Tube 0 / 0 Wound Drainage 550 / 550 500 / 500 # 1 Right Abdomen 0 / 0 0 / 0 # 2 Right Abdomen 550 / 550 500 / 500 Chest Tube Drainage 40 / 40 #1 Left Pleural 40 / 40 Other: Date of Last Bowel Movement 12/16/17 12/17/17 # Bowel Movements 6 12/07/17 10:10 Fluid - Pleural fluid Fungal Smear - Final No fungal elements seen 12/07/17 10:10 Fluid - Pleural fluid Fungal Culture - Preliminary No growth in 1 week 12/07/17 10:10 Fluid - Pleural fluid Acid Fast Bacilli Smear - Final No acid fast bacilli seen 12/07/17 10:10 Fluid - Pleural fluid Mycobacterial Culture - Preliminary No growth in 1 week Lab - Hematology Results 12/15/17 12/16/17 12/16/17 18:08 00:08 04:44 WBC 19.7 H RBC 2.56 L Hgb 8.9 L 8.1 L 7.8 L Hct 26.3 L 23.1 L 22.6 L MCV 88.5 MCH 30.5 MCHC 34.5 RDW 16.0 Plt Count 252 MPV 9.6 12/17/17 05:18 WBC 18.1 H RBC 1.90 L Hgb 5.4 L* D Hct 16.2 L* MCV 85.3 MCH 28.4 MCHC 33.3 RDW 23.1 H D Plt Count 243 MPV 9.2 Lab - Chemistry Results 12/15/17 12/15/17 12/15/17 17:08 21:01 23:55 Sodium Potassium Chloride Carbon Dioxide Anion Gap BUN Creatinine Estimated GFR POC Glucose 121 H 113 H 111 H Random Glucose Calcium Prot Corrected Calcium Phosphorus Magnesium Total Bilirubin AST ALT Alkaline Phosphatase Total Protein Albumin 12/16/17 12/16/17 12/16/17 04:44 08:04 12:32 Sodium 143 Potassium 3.6 Chloride 106 Carbon Dioxide 21.3 Anion Gap 16 H BUN 89 H Creatinine 6.17 H Estimated GFR 12 L POC Glucose 147 H 141 H Random Glucose 125 H Calcium 7.6 L Prot Corrected Calcium Phosphorus Magnesium Total Bilirubin 0.8 AST 100 H ALT 121 H Alkaline Phosphatase 226 H Total Protein 5.5 L Albumin 1.4 L 12/16/17 12/16/17 12/17/17 17:33 20:28 01:52 Sodium Potassium Chloride Carbon Dioxide Anion Gap BUN Creatinine Estimated GFR POC Glucose 149 H 146 H 141 H Random Glucose Calcium Prot Corrected Calcium Phosphorus Magnesium Total Bilirubin AST ALT Alkaline Phosphatase Total Protein Albumin 12/17/17 05:18 Sodium 146 H Potassium 3.5 Chloride 111 H Carbon Dioxide 18.4 L Anion Gap 17 H BUN 108 H Creatinine 7.09 H Estimated GFR 10 L POC Glucose Random Glucose 126 H Calcium 7.2 L* Prot Corrected Calcium 8.4 L Phosphorus 8.3 H D Magnesium 2.6 H Total Bilirubin 0.5 AST 74 H ALT 94 H Alkaline Phosphatase 156 H Total Protein 4.9 L D Albumin 1.3 L Imaging: ITS Impressions Head MRI 12/03/17 00:00 CONCLUSION: 1. Minimal nonspecific periventricular white matter changes. 2. No restricted diffusion to suggest an acute ischemic event. 3. No evidence for significant ischemic changes. Chest CT 12/04/17 00:06 CONCLUSION: 1. Left greater than right pleural effusions and basilar atelectasis. 2. No hemorrhage or hematoma demonstrated. 3. Distended and fluid-filled esophagus. No wall thickening. Patient is status post gastrectomy. Nasogastric tube is at the GE junction. 4. Body wall edema/anasarca. Abdomen X-Ray 12/08/17 00:00 CONCLUSION: 1. 2 left-sided abdominal catheters. 2. Nonspecific bowel gas pattern. Abdomen/Pelvis CT 12/13/17 00:00 CONCLUSION: 1. New proximal small bowel dilatation. No discrete transition point. Contrast is seen in the distal small bowel. Findings may represent ileus or partial obstruction. 2. Postsurgical findings with surgical drains in the left upper quadrant. Free fluid is seen in the left upper quadrant. Loculated rounded 5 cm area of fluid with thin peripheral enhancement also noted just inferior to the surgical drains. 3. Prominent left lower lobe pulmonary consolidation and small left pleural effusion. GI Bleed Scan Nuclear Medicine 12/15/17 00:00 CONCLUSION: No active bleeding demonstrated. Chest X-Ray 12/17/17 06:00 CONCLUSION: No significant interval change with persistent left lower lobe consolidation versus atelectasis. Physical Exam: PHYSICAL EXAMINATION: GENERAL: Patient on the vent. Sedated. HEENT: Unable to fully assess. Mucosa is moist. NECK: Supple without adenopathy or swelling. LUNGS: Decreased breath sounds. Left chest tube has serous drainage. HEART: Regular S1, S2. No audible murmur. ABDOMEN: Decreased bowel sounds. ZAINAB drains x exits the RLQ abdomen and has serous drainage EXTREMITIES: No clubbing or cyanosis. Both upper extremities has edema. SKIN: No diffuse rash. NEUROLOGIC: unable to assess, intubated. PSYCHIATRIC: Unable to assess. Assessment and Plan - Plan IMPRESSION: 1. Candidemia following gastric perforation and gastric ischemia. Blood culture at [facility] in [place] on 11/26 had Starr glabrata. Repeat blood culture is negative. 2. Status post abdominal surgery. 3. Acute respiratory failure. left pleural effusion. 4. Aspiration. 5. Acute kidney disease. 5. Recent cardiac arrest. 6. Leukocytosis. White blood cell count remains elevated. abx associated diarrhea, bowel wall thickening c.diff neg. No significant change. RECOMMENDATIONS: 1. Continue micafungin for candidemia. 2. Continue piperacillin/tazobactam. 3. Continue to monitor white blood cell count. 4 Monitor temperature.
[2017-12-17] MEDS: Chlorhexidine 0.12% Oral Kit 15 ML UDC OROPHARYNG SCH ×2 (12:53→21:03)
[2017-12-17] MEDS: Calcium Acetate 667 MG Capsule PO SCH ×3 (12:56→17:32)
--- NOTE | 2017-12-17 14:08 | P.PNGI ---
Subjective Interval history: Patient's eyes are open gives occasional nod to yes or no questions but feels appears fairly weak and fatigued at this time. Family members in room labs reviewed hemoglobin 24 hours ago was 7.8 now 5.4 and he is status post 3 units packed RBC transfusion. Also had dialysis this a.m. and working through slow weaning process, positive bowel sounds, tube feeds Nepro at 50 cc an hour. <Ofelia Fox - Last Filed: 12/17/17 14:01> Physical Exam Vital signs: Vital Signs 12/16/17 15:00 12/16/17 16:00 12/16/17 17:00 Temperature 99 F Pulse Rate 110 H 110 H 112 H Respiratory Rate 27 H 27 H 26 H Blood Pressure Pulse Oximetry 100 100 100 12/16/17 17:10 12/16/17 18:00 12/16/17 19:00 Temperature 98.2 F 99.3 F Pulse Rate 111 H 110 H 111 H Respiratory Rate 23 23 Blood Pressure 136/58 L Pulse Oximetry 100 100 100 12/16/17 20:00 12/16/17 20:36 12/16/17 21:00 Temperature Pulse Rate 109 H 112 H 110 H Respiratory Rate 23 29 H Blood Pressure Pulse Oximetry 100 95 12/16/17 22:00 12/16/17 23:00 12/17/17 00:00 Temperature 98.7 F Pulse Rate 113 H 109 H 112 H Respiratory Rate 33 H 29 H 24 Blood Pressure 134/57 L Pulse Oximetry 100 100 100 12/17/17 01:00 12/17/17 02:00 12/17/17 03:00 Temperature Pulse Rate 109 H 107 H 106 H Respiratory Rate 27 H 24 36 H Blood Pressure Pulse Oximetry 100 100 100 12/17/17 03:27 12/17/17 04:00 12/17/17 05:00 Temperature Pulse Rate 106 H 107 H 108 H Respiratory Rate 20 36 H 25 H Blood Pressure 134/57 L Pulse Oximetry 100 100 100 12/17/17 06:00 12/17/17 09:14 12/17/17 09:21 Temperature 98.8 F 98.8 F Pulse Rate 109 H 120 H 119 H Respiratory Rate 63 H 20 20 Blood Pressure Pulse Oximetry 100 96 98 12/17/17 09:35 12/17/17 09:54 12/17/17 09:59 Temperature 99.2 F Pulse Rate 117 H 112 H Respiratory Rate 19 18 22 Blood Pressure Pulse Oximetry 100 100 12/17/17 12:35 Temperature Pulse Rate Respiratory Rate 23 Blood Pressure Pulse Oximetry 100 Intake & Output 12/16/17 12/17/17 12/17/17 18:59 06:59 18:59 Intake Total 1659 / 1659 600 / 600 1800 / 1800 Output Total 590 / 590 500 / 500 3000 / 3000 Balance 1069 / 1069 100 / 100 -1200 / -1200 Weight 74.54 kg Intake: IV 750 / 750 600 / 600 350 / 350 Protonix Inj 80 MG In NS Inj 200 / 200 100 / 100 100 ML @ 10 mls/hr IV.CONT Q10H COLE Rx#:[id number] Diprivan 1000 mg/100 ml Inj 1, 100 / 100 200 / 200 100 / 100 000 mg In 100 ml @ 5 MCG/KG/MIN 2.859 mls/hr IV.CONT TITRATE PRN Rx#:[id number] Flexbumin 25% Inj 100 ML @ 60 200 / 200 mls/hr IV.SIG WITH DIALYSIS PRN Rx#:[id number] Mycamine Inj 100 MG In NS Inj 100 / 100 100 ML @ 100 mls/hr IV.SIG Q24H COLE Rx#:[id number] Zosyn 2.25 GM Premix 50 ML @ 100 / 100 50 / 50 50 / 50 100 mls/hr IV.SIG Q8H COLE Rx#: [id number] fentaNYL 10 mcg/mL Premix Drip 250 / 250 250 / 250 2,500 mcg In 250 ml @ 50 MCG/HR 5 mls/hr IV.SIG TITRATE PRN Rx #:[id number] Tube Feeding 669 / 669 Water Bolus Amount 240 / 240 Other 250 / 250 Rbc As-3 Leukoreduced Unit 250 / 250 [id number] Intake (Blood Product) Amt 1200 / 1200 Rbc As-3 Leukoreduced Unit 400 / 400 [id number] Rbc As-3 Leukoreduced Unit 400 / 400 [id number] Rbc As-3 Leukoreduced Unit 400 / 400 [id number] Output: Urine 0 / 0 Hemodialysis Amount 3000 / 3000 Gastric Drainage 0 / 0 Right Nare Nasogastric Tube 0 / 0 Wound Drainage 550 / 550 500 / 500 # 1 Right Abdomen 0 / 0 0 / 0 # 2 Right Abdomen 550 / 550 500 / 500 Chest Tube Drainage 40 / 40 #1 Left Pleural 40 / 40 Other: Date of Last Bowel Movement 12/16/17 12/17/17 # Bowel Movements 6 - Constitutional moderate distress, cooperative, somnolent - Routine HEENT Exam Head: Present: normocephalic ENT: Present: mucous membranes moist (ET tube) - Routine Respiratory Exam Present: patient mechanically ventilated, diminished air movement - Routine Cardiovascular Exam Present: S1, S2 - Routine Skin Exam Present: pallor - Urinary Catheter Management Indwelling Temp Sensing Catheter Cath placed during this visit: no <Ofelia Fox - Last Filed: 12/17/17 14:01> Vital signs: Vital Signs 12/16/17 23:00 12/17/17 00:00 12/17/17 01:00 Temperature 98.7 F Pulse Rate 109 H 112 H 109 H Respiratory Rate 29 H 24 27 H Blood Pressure 134/57 L Pulse Oximetry 100 100 100 12/17/17 02:00 12/17/17 03:00 12/17/17 03:27 Temperature Pulse Rate 107 H 106 H 106 H Respiratory Rate 24 36 H 20 Blood Pressure Pulse Oximetry 100 100 100 12/17/17 04:00 12/17/17 05:00 12/17/17 06:00 Temperature Pulse Rate 107 H 108 H 109 H Respiratory Rate 36 H 25 H 63 H Blood Pressure 134/57 L Pulse Oximetry 100 100 100 12/17/17 07:00 12/17/17 08:00 12/17/17 09:00 Temperature 98.8 F Pulse Rate 106 H 110 H 116 H Respiratory Rate 51 H 75 H 61 H Blood Pressure Pulse Oximetry 100 98 100 12/17/17 09:14 12/17/17 09:21 12/17/17 09:35 Temperature 98.8 F 98.8 F 99.2 F Pulse Rate 120 H 119 H 117 H Respiratory Rate 20 20 19 Blood Pressure Pulse Oximetry 96 98 100 12/17/17 09:54 12/17/17 09:59 12/17/17 10:00 Temperature Pulse Rate 112 H 112 H Respiratory Rate 18 22 28 H Blood Pressure Pulse Oximetry 100 100 12/17/17 11:00 12/17/17 12:00 12/17/17 12:35 Temperature 99.2 F Pulse Rate 109 H 107 H Respiratory Rate 24 44 H 23 Blood Pressure 129/56 L Pulse Oximetry 100 100 100 12/17/17 13:00 12/17/17 14:00 12/17/17 14:42 Temperature Pulse Rate 108 H 104 H Respiratory Rate 50 H 65 H 19 Blood Pressure Pulse Oximetry 100 100 100 12/17/17 15:00 12/17/17 16:00 12/17/17 16:34 Temperature 99.6 F Pulse Rate 108 H 109 H Respiratory Rate 72 H 85 H 17 Blood Pressure 146/59 H Pulse Oximetry 92 L 98 12/17/17 17:00 12/17/17 18:00 12/17/17 19:00 Temperature Pulse Rate 112 H 113 H 120 H Respiratory Rate 35 H 81 H 79 H Blood Pressure Pulse Oximetry 99 100 100 12/17/17 20:00 12/17/17 21:45 Temperature Pulse Rate 116 H Respiratory Rate 60 H 23 Blood Pressure Pulse Oximetry 99 100 Intake & Output 12/17/17 12/17/17 12/18/17 06:59 18:59 06:59 Intake Total 600 / 600 2740 / 2740 65 / 65 Output Total 500 / 500 4520 / 4520 Balance 100 / 100 -1780 / -1780 65 / 65 Weight 74.54 kg Intake: IV 600 / 600 600 / 600 65 / 65 Protonix Inj 80 MG In NS Inj 100 / 100 100 / 100 100 ML @ 10 mls/hr IV.CONT Q10H COLE Rx#:[id number] Diprivan 1000 mg/100 ml Inj 1, 200 / 200 100 / 100 000 mg In 100 ml @ 5 MCG/KG/MIN 2.859 mls/hr IV.CONT TITRATE PRN Rx#:[id number] Ofirmev Inj 650 mg In 65 ml @ 65 / 65 400 mls/hr IV.SIG Q6H PRN Rx#: [id number] Flexbumin 25% Inj 100 ML @ 60 200 / 200 mls/hr IV.SIG WITH DIALYSIS PRN Rx#:[id number] Mycamine Inj 100 MG In NS Inj 100 / 100 100 ML @ 100 mls/hr IV.SIG Q24H COLE Rx#:[id number] Zosyn 2.25 GM Premix 50 ML @ 50 / 50 100 / 100 100 mls/hr IV.SIG Q8H COLE Rx#: [id number] fentaNYL 10 mcg/mL Premix Drip 250 / 250 2,500 mcg In 250 ml @ 50 MCG/HR 5 mls/hr IV.SIG TITRATE PRN Rx #:[id number] Tube Feeding 600 / 600 Other 340 / 340 Rbc As-3 Leukoreduced Unit 250 / 250 [id number] Intake (Blood Product) Amt 1200 / 1200 Rbc As-3 Leukoreduced Unit 400 / 400 [id number] Rbc As-3 Leukoreduced Unit 400 / 400 [id number] Rbc As-3 Leukoreduced Unit 400 / 400 [id number] Output: Urine 0 / 0 Urine/Stool Mix 1000 / 1000 Hemodialysis Amount 3000 / 3000 Gastric Drainage 0 / 0 Right Nare Nasogastric Tube 0 / 0 Wound Drainage 500 / 500 500 / 500 # 1 Right Abdomen 0 / 0 0 / 0 # 2 Right Abdomen 500 / 500 500 / 500 Chest Tube Drainage 20 / #1 Left Pleural Other: Date of Last Bowel Movement 12/17/17 12/17/17 # Incontinent Bowel Movements 3 - Urinary Catheter Management Indwelling Temp Sensing Catheter Cath placed during this visit: no <Cleve Alva E - Last Filed: 12/17/17 22:17> Results - Labs CBC & Chem 7: 12/17/17 05:18 12/17/17 05:18 Laboratory Results - last 24 hr 12/04/17 12/16/17 12/16/17 10:46 05:40 17:33 WBC RBC Hgb Hct MCV MCH MCHC RDW Plt Count MPV Sodium Potassium Chloride Carbon Dioxide Anion Gap BUN Creatinine Estimated GFR POC Glucose 149 H Random Glucose Calcium Prot Corrected Calcium Phosphorus Magnesium Total Bilirubin AST ALT Alkaline Phosphatase Total Protein Albumin Blood Type Antibody Screen MTS Gel Crossmatch See Detail See Detail 12/16/17 12/17/17 12/17/17 20:28 01:52 05:18 WBC 18.1 H RBC 1.90 L Hgb 5.4 L* D Hct 16.2 L* MCV 85.3 MCH 28.4 MCHC 33.3 RDW 23.1 H D Plt Count 243 MPV 9.2 Sodium Potassium Chloride Carbon Dioxide Anion Gap BUN Creatinine Estimated GFR POC Glucose 146 H 141 H Random Glucose Calcium Prot Corrected Calcium Phosphorus Magnesium Total Bilirubin AST ALT Alkaline Phosphatase Total Protein Albumin Blood Type Antibody Screen MTS Gel Crossmatch 12/17/17 12/17/17 12/17/17 05:18 07:02 12:47 WBC RBC Hgb Hct MCV MCH MCHC RDW Plt Count MPV Sodium 146 H Potassium 3.5 Chloride 111 H Carbon Dioxide 18.4 L Anion Gap 17 H BUN 108 H Creatinine 7.09 H Estimated GFR 10 L POC Glucose 133 H Random Glucose 126 H Calcium 7.2 L* Prot Corrected Calcium 8.4 L Phosphorus 8.3 H D Magnesium 2.6 H Total Bilirubin 0.5 AST 74 H ALT 94 H Alkaline Phosphatase 156 H Total Protein 4.9 L D Albumin 1.3 L Blood Type A Positive Antibody Screen Negative MTS Gel Crossmatch See Detail - Imaging Impressions Chest X-Ray 12/17/17 06:00 CONCLUSION: No significant interval change with persistent left lower lobe consolidation versus atelectasis. <Ofelia Fox - Last Filed: 12/17/17 14:01> - Labs CBC & Chem 7: 12/17/17 19:50 12/17/17 05:18 Laboratory Results - last 24 hr 12/04/17 12/16/17 12/17/17 10:46 05:40 01:52 WBC RBC Hgb Hct MCV MCH MCHC RDW Plt Count MPV Sodium Potassium Chloride Carbon Dioxide Anion Gap BUN Creatinine Estimated GFR POC Glucose 141 H Random Glucose Calcium Prot Corrected Calcium Phosphorus Magnesium Total Bilirubin AST ALT Alkaline Phosphatase Total Protein Albumin Blood Type Antibody Screen MTS Gel Crossmatch See Detail See Detail 12/17/17 12/17/17 12/17/17 05:18 05:18 07:02 WBC 18.1 H RBC 1.90 L Hgb 5.4 L* D Hct 16.2 L* MCV 85.3 MCH 28.4 MCHC 33.3 RDW 23.1 H D Plt Count 243 MPV 9.2 Sodium 146 H Potassium 3.5 Chloride 111 H Carbon Dioxide 18.4 L Anion Gap 17 H BUN 108 H Creatinine 7.09 H Estimated GFR 10 L POC Glucose Random Glucose 126 H Calcium 7.2 L* Prot Corrected Calcium 8.4 L Phosphorus 8.3 H D Magnesium 2.6 H Total Bilirubin 0.5 AST 74 H ALT 94 H Alkaline Phosphatase 156 H Total Protein 4.9 L D Albumin 1.3 L Blood Type A Positive Antibody Screen Negative MTS Gel Crossmatch See Detail 12/17/17 12/17/17 12/17/17 12:47 18:30 19:50 WBC 20.2 H RBC 2.87 L Hgb 8.2 L D Hct 24.1 L MCV 84.1 MCH 28.6 MCHC 34.1 RDW 16.4 D Plt Count 247 MPV 9.0 Sodium Potassium Chloride Carbon Dioxide Anion Gap BUN Creatinine Estimated GFR POC Glucose 133 H 124 H Random Glucose Calcium Prot Corrected Calcium Phosphorus Magnesium Total Bilirubin AST ALT Alkaline Phosphatase Total Protein Albumin Blood Type Antibody Screen MTS Gel Crossmatch 12/17/17 20:15 WBC RBC Hgb Hct MCV MCH MCHC RDW Plt Count MPV Sodium Potassium Chloride Carbon Dioxide Anion Gap BUN Creatinine Estimated GFR POC Glucose 121 H Random Glucose Calcium Prot Corrected Calcium Phosphorus Magnesium Total Bilirubin AST ALT Alkaline Phosphatase Total Protein Albumin Blood Type Antibody Screen MTS Gel Crossmatch - Imaging Impressions Chest X-Ray 12/17/17 06:00 CONCLUSION: No significant interval change with persistent left lower lobe consolidation versus atelectasis. 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 Consult for possible lower GI bleeding- pt noted to have maroon colored stool Enteroscopy (12/11) S/P total gastrectomy, esophagojejunal anastomosis normal, some old blood, no fresh blood, no blood seen in jejunum NM bleeding scan (12/11) Negative CT abdomen/pelvis WO IV contrast (12/12) Postoperative abdomen appearance (12/12) Pt received 2 U PRBCs yesterday, H/H stable since last night. According to RN approximately 100 mL of liquid stool since last night. Family at bedside, agreeable to colonoscopy tomorrow. 12/13/17- Patient received 3 units prbc's this am. Pre- transfusion Hgb 5.5, HCT 16.1. Bedside RN reports large amount of maroon colored drainage noted in collection bag as well as large amount of leakage of melanotic stools around rectal tube. Abdomen firm and distended. BP 155/60, ST 118. Will check stat HH , EGD/ Colonoscopy today urgently, CT abdomen. (12/13/17)-Stat hemoglobin 9.6 hematocrit 28.4. 12/14/2017 WBC 21.2 hemoglobin 7.9 hematocrit 23.0. Maroon colored output markedly decreased in drainage collection bag. Patient currently receiving 1 unit of packed RBCs during hemodialysis. NG pulled back 6-800 mL by bedside RN to avoid irritation to area of anastomosis. 12/13/2017 EGD revealed the following findings--> 1. S/p total gastrectomy some small amount of bleeding at esophagojejunal anastomosis -s/p cautery with gold probe, 2 clips plied, epinephrin 1:10,000 2 cc injected some blood in jejunum 2. Retroflexion was not performed 12/13/2017 colonoscopy revealed the following--> 1. Old blood to cecum, no active bleeding 2. Retroflexed views revealed internal hemorrhoids 3. Retroflexed views revealed small internal hemorrhoids 4. Was performed 5. Revealed hemorrhoids 12/15/2017 NG tube and rectal tube which do show some dark with some coffee- ground combination stool noted and emesis via NG tube, low intermittent suction , previously had Nepro at 30 cc an hour .patient is awake responding to verbal stimuli current hemoglobin has dropped from 9-7.8 and WBC count trends down at 17.2 Transaminitis AST 121 ALT 138 probably related still to some shock liver, negative C. difficile last check. Patient is pending bleeding scan and nuclear medicine IR pending findings 12/16/2017 patient had bleeding scan on 12/15 2017 which was unremarkable. Still has dark stool noted in the tubing of rectal Delgado but no obvious bright red bleeding or maroon colored, minimal NG tube output today, serous secretions no coffee-ground noted, hemoglobin fairly stable at 7.8 with last check being 8.1 will need to continue to monitor. GI available as needed for any acute GI bleed, no further procedures for now 12/17/2017, hemoglobin dropped over the past 24 hours from 7.8-5.4 requiring 3 unit transfusion Leukocytosis elevated with WBC count now 18.1, patient had dialysis this morning working towards ventilator weaning and possibly CPAP. According to the record possible trach next week if patient's unable to wean. Patient continues with abdominal binder and open abdominal wound which is maintained with its integrity. ZAINAB drain #1 shows very minimal bloody drainage but ZAINAB #2 drain has a large volume creamy drainage appearance which could be related to tube feed? Nepro continues at 50 cc an hour, no high residuals. Patient is status post EGD and colonoscopy this admission see the results above. Symptomatic anemia may not be GI related. Bleeding scans last one done on 12/16/2017 unremarkable.. Bilirubin continues to be normal at 0.5, trending down of transaminitis AST 74 ALT 94 which could have been related to shock liver. Rectal tube has dark liquid brown stool Plan NG tube , low intermittent suction, monitor for any obvious bleeding Check occult blood, stool new sample Monitor labs and transfuse as needed dependent hemoglobin findings Monitor LFTs, hemoglobin and transfuse as needed Maintain rectal tube for now and monitor bleeding Supportive care Patient was seen per myself and Dr. alva , note was written on his behalf <Ofelia Fox - Last Filed: 12/17/17 14:01> (1) Anemia Status: Acute Code(s): D64.9 - Anemia, unspecified - Plan Patient seen and examined Agree with above Continue with current supportive care Monitor labs No active bleeding at this point <Cleve Alva - Last Filed: 12/17/17 22:17>
--- NOTE | 2017-12-17 14:10 | P.PNCC ---
Subjective Subjective Remarks/Hospital Course: Patient was recently admitted to [facility] 11/22 and transferred to [facility] 11/26/17 after the following hospital course: 47-year-old -[place] male with reportedly no past medical or past surgical history who was admitted to hospitalist service 11/22/17 after presenting with abdominal pain, nausea, vomiting. He had CT abd/pelvis with massive gastric distention. NG tube had been placed. I was called to patient's bedside for CODE BLUE PEA arrest. CPR was ongoing and patient had massive abdominal distension and gastric regurgitant in the airway. He was emergently intubated and large amount of gastric secretions suctioned from oropharynx. After 21 minutes of CPR, ROSC was obtained and he was profoundly hypotensive. Continued aggressive fluid resuscitation and initiated dopamine. He was transferred to [facility] where CVL and R radial art line were placed and he was given 7 L of crystalloid and albumin. CXR demonstrated pneumoperitoneum and Dr. Martin Gudino was called emergently and he immediately contacted OR for emergent ex lap. He had intraabdominal hypertension with IAP of 40 mmHg, though fortunately was able to be ventilated adequately after rocuronium 50 mg IV and was transferred to OR. Dr. Martin Gudino took to the operating room early in the morning on 11/23 and discovered tension pneumoperitoneum, massive gastric distension, ischemia of the proximal 2/3 of the stomach and large gastric perforation with massive intraperitoneal contamination with food particles. Dr. Isaacs placed 2 NGT and decompressed 2 L of succus. Patient had initial improvement in vital signs in the immediate postoperative period, however he subsequently became hypotensive requiring upward titration of levophed and addition of vasopressin and stress dose hydrocortisone. He remains on levophed 10 mcg/min, neosynephrine 80 mcg/ min, vasopressin 0.04 units/min with overall vasopressor requirement weaning overnight. He is oliguric and creatinine is continuing to climb. He was given 2 L of crystalloid and albumin overnight. He does have significant fluid losses with combination of abdominal dressing and NGT output, so I will give an additional L of crystalloid now to monitor hourly response as he certainly does not appear volume overloaded. Nonetheless Flotrac numbers are suggesting adequate volume status and we may be seeing the consequence of ischemic ATN. May ultimately require HD, however not at this time. Abdomen remains open and plan is to re-explore 11/25. 11/25: Patient has acceptable hemodynamics by Flotrac but remains septic with requirements for phenylephrine 200 mics per minute, Levophed 8 mics per minute and vasopressin 0.04 units/min for blood pressure support. This has improved overnight and the Bhavesh-Synephrine support has been weaned off completely. Acid base balance is acceptable. ATN has developed which will undoubtedly require hemodialysis. Potassium level is normal. He is at increased risk for an anesthetic now but there is an urgent need to check for residual gastric necrosis. 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 Since the source control surgery, the maintenance of normal acid-base balance has been less difficult. Patient remains anuric with a rising creatinine above 6.0. He is clearly ahead on volume and will benefit from dialysis. A 2 lumen hemodialysis catheter was placed on 11/25 and has been packed with dilute heparin solution. The right internal jugular central line is been in place for 4 days and accessed multiple times. The femoral art line has been in for 4 days. Shock liver was apparent after the cardiac arrest reflecting a transaminitis, elevated bilirubin, and prolonged INR. The INR has remained normal following the transfusion of 4 units of fresh frozen plasma prior to surgery yesterday. A 10% dextrose infusion continues because of ongoing problems with hypoglycemia. Thrombocytopenia at 37,000 persists. He has remained on antibiotic coverage with Pipracil/tazobactam and fungal coverage with fluconazole, all adjusted for renal failure. Present vasopressor requirements include levophed at 7 mics per minute and vasopressin at 0.04 units/min. The chest x-ray is consistent with minor aspiration at the time of his preoperative cardiac arrest on the floor and cultures have subsequently grown Klebsiella, pansensitive. The operative note will clarify the extent of the surgery but in essence the distal esophagus is stapled off and marked with 2 Prolene sutures. The antrum of the stomach is oversewn. Most of the stomach has been removed. The abdomen is open with a VAC dressing applied. Subjective: 11/29: Bowel was in discontinuity following subtotal gastrectomy and patient was transferred to [facility]. On reexploration 11/28 he underwent Dinh-en-y esophagojejunostomy, feeding jejunostomy placement, diagnostic EGD, primary fascial closure. Wound vac was applied to abdomen (though currently wet to dry dressing in place upon arrival). He was reportedly found to have candidemia and was started on micafungin and has undergone ophtho eval. Lines including CVL, Vascath and art line have all been changed at [facility] (though not clear when). He remains on mechanical ventilation and has been weaned off pressors. He was found to have BUE DVTs and is on heparin drip. He is on TPN and has been started on trickle tube feeds with Nepro via jejunostomy. NGT is to [facility]. He underwent HD postoperatively on 11/28. He has now been transferred back to [facility] for ongoing management. I have updated his father and stepmother. 11/30: Patient re-admitted s/p transfer from [facility] overnight, otherwise no acute issues. Scheduled to undergo HD today. 12/01: T-max 101.7, leukocytosis to 27,000 with bandemia. Now 3 days following Dinh-en-Y reconstruction of GI tract following sub-total gastrectomy for gastric necrosis. All new lines placed after diagnosis of candidemia. TPN infusing, jejunostomy at trickle flow and can be increased slowly per general surgery. 12/02: Marked leukocytosis with bandemia persists. Afebrile over last 24 hours. Leave NG tube across the esophageal anastomosis and surgical service will direct timing of contrast study about 7 days following surgery. Continue with spontaneous breathing trials. 12/03: extubated yesterday. since then, has not followed commands, and does not talk. appears to have clinically an aphasia, although his uremia or severe hypoactive delirium could present this way. purposeful movements. will obtain MRI to rule out acute ischemia, as this appears to be a new mental status change (11/29 /[facility] notes state interactive on ventilator). 12/04: reintubated overnight: more output from ZAINAB drains. hgb dropped to 7 this AM: receiving 1 unit prbc. MRI negative for acute change. EEG ordered today to rule out subclinical status epilepticus. also concern overnight for aspiration event. 12/05: T-max 99. WBC 24,000. Reintubated yesterday for respiratory failure probably related to aspiration. Trickle feeding continues through jejunostomy. Nasogastric tube is through the anastomosis and is to low intermittent. 12/06: Afebrile. WBC 26,000. Bandemia has largely resolved. There are bilateral pleural effusions which may need to be tapped to rule out infection or leak. Both lower lobes are consolidated on CAT scan, probably representing compressive atelectasis from the effusions. 12/07: White count remains elevated at 25,000. Total parenteral nutrition infusing and tolerated. Altered mental status persists, possibly related to the cardiac arrest on the floor prior to transfer to the ICU. 12/08: Tolerating total parenteral nutrition with good glucose control. Leukocytosis persists. Fluid tap from left chest bit cloudy, cultures pending. Maintaining adequate gas exchange on lower levels of fractional inspired oxygen. Aim for extubation trial again soon. 12/09: Patient considerably less edematous over the past several days following successful dialysis runs. Continually fails attempts at weaning parameters and desaturation. Left chest drainage is no growth by culture. White blood cell count remains elevated. 12/10: Remains intubated. WBC count elevated but stable. Left chest tube with 260 mL output in 24 hours. BUN/creatinine remains elevated 12/11: Remains intubated sedated hemoglobin dropped to 5.8 today. RN has noted lower GI bleed. Protonix IV every 12 started and GI consulted. Transfuse 2 units PRBC. Keep n.p.o. discussed with Dr. Wellington 12/12: Patient remains intubated sedated for vent synchrony. Hemoglobin stable 7.5. Endoscopy negative yesterday CT abdomen pelvis no active bleeding. Hemodynamically remained stable. Receiving hemodialysis at this time. Left chest tube with high output 450 mL in 24 hours. Attempt weaning trials starting today 12/13: Patient continues to lose blood. Hemoglobin 5.5. Plan to get colonoscopy today. Continues to have melanotic stools. The night RN aspirated blood from jejunostomy tube. Enteroscopy yesterday was unremarkable. Transfusing 3 units of PRBC repeat hemoglobin at 2 PM. No significant bloody output from ZAINAB drains. Will discuss with general surgery 12/14: Remains intubated sedated hemoglobin 7.9 today 1 unit PRBC ordered. Can melanotic stools or NG tube coffee-ground today. EGD yesterday showed friable mucosa at the esophageal anastomotic junction which was injected by GI. Otherwise endoscopies including colonoscopies unremarkable. Hemodynamically remained stable. Discussed extensively with GI and general surgery yesterday 12/15: Patient continues to have significant melanotic stools. Hemoglobin dropped to 7.8 and patient received 1 unit PRBC follow-up hemoglobin only 7.9. Additional 1 unit PRBC ordered. Status post EGD colonoscopy-essentially unremarkable except irritation at the esophageal anastomotic site. Bleeding is most likely small intestinal 12/16: Critically ill but slightly more stable today no obvious melanotic stools. According to the bedside RN when the tube feeds were disconnected there was some bleeding from the jejunostomy tube. Hemoglobin remained stable 7.8. Discussed with Dr. Wellington general surgeon, and his opinion bleeding likely from mucosal sloughing. Initiate spontaneous breathing trials 12/17: Remains critical hemoglobin dropped to 5.4 getting 3 units of PRBC. Extensive workup including EGD colonoscopy and bleeding scans x2 have been negative for active bleed. This seems to be most likely small intestinal bleed from mucosal bleed. Also it was not that the ZAINAB drain has color similar to tube feeds. I discussed with Dr. Zeb lopez he will evaluate the patient afternoon. If there is suspicions will get CT scan after contrast through the J -tube Objective Vital Signs / I&O: Vital Signs 12/16/17 14:00 12/16/17 15:00 12/16/17 16:00 Temperature 99 F Pulse Rate 113 H 110 H 110 H Respiratory Rate 27 H 27 H 27 H Blood Pressure Pulse Oximetry 100 100 100 12/16/17 17:00 12/16/17 17:10 12/16/17 18:00 Temperature 98.2 F Pulse Rate 112 H 111 H 110 H Respiratory Rate 26 H 23 23 Blood Pressure Pulse Oximetry 100 100 100 12/16/17 19:00 12/16/17 20:00 12/16/17 20:36 Temperature 99.3 F Pulse Rate 111 H 109 H 112 H Respiratory Rate 23 Blood Pressure 136/58 L Pulse Oximetry 100 100 12/16/17 21:00 12/16/17 22:00 12/16/17 23:00 Temperature Pulse Rate 110 H 113 H 109 H Respiratory Rate 29 H 33 H 29 H Blood Pressure Pulse Oximetry 95 100 100 12/17/17 00:00 12/17/17 01:00 12/17/17 02:00 Temperature 98.7 F Pulse Rate 112 H 109 H 107 H Respiratory Rate 24 27 H 24 Blood Pressure 134/57 L Pulse Oximetry 100 100 100 12/17/17 03:00 12/17/17 03:27 12/17/17 04:00 Temperature Pulse Rate 106 H 106 H 107 H Respiratory Rate 36 H 20 36 H Blood Pressure 134/57 L Pulse Oximetry 100 100 100 12/17/17 05:00 12/17/17 06:00 12/17/17 09:14 Temperature 98.8 F Pulse Rate 108 H 109 H 120 H Respiratory Rate 25 H 63 H 20 Blood Pressure Pulse Oximetry 100 100 96 12/17/17 09:21 12/17/17 09:35 12/17/17 09:54 Temperature 98.8 F 99.2 F Pulse Rate 119 H 117 H Respiratory Rate 20 19 18 Blood Pressure Pulse Oximetry 98 100 100 12/17/17 09:59 12/17/17 12:35 Temperature Pulse Rate 112 H Respiratory Rate 22 23 Blood Pressure Pulse Oximetry 100 Intake & Output 12/16/17 12/17/17 12/17/17 18:59 06:59 18:59 Intake Total 1659 / 1659 600 / 600 1800 / 1800 Output Total 590 / 590 500 / 500 3000 / 3000 Balance 1069 / 1069 100 / 100 -1200 / -1200 Weight 74.54 kg Intake: IV 750 / 750 600 / 600 350 / 350 Protonix Inj 80 MG In NS Inj 200 / 200 100 / 100 100 ML @ 10 mls/hr IV.CONT Q10H COLE Rx#:[id number] Diprivan 1000 mg/100 ml Inj 1, 100 / 100 200 / 200 100 / 100 000 mg In 100 ml @ 5 MCG/KG/MIN 2.859 mls/hr IV.CONT TITRATE PRN Rx#:[id number] Flexbumin 25% Inj 100 ML @ 60 200 / 200 mls/hr IV.SIG WITH DIALYSIS PRN Rx#:[id number] Mycamine Inj 100 MG In NS Inj 100 / 100 100 ML @ 100 mls/hr IV.SIG Q24H COLE Rx#:[id number] Zosyn 2.25 GM Premix 50 ML @ 100 / 100 50 / 50 50 / 50 100 mls/hr IV.SIG Q8H COLE Rx#: [id number] fentaNYL 10 mcg/mL Premix Drip 250 / 250 250 / 250 2,500 mcg In 250 ml @ 50 MCG/HR 5 mls/hr IV.SIG TITRATE PRN Rx #:[id number] Tube Feeding 669 / 669 Water Bolus Amount 240 / 240 Other 250 / 250 Rbc As-3 Leukoreduced Unit 250 / 250 [id number] Intake (Blood Product) Amt 1200 / 1200 Rbc As-3 Leukoreduced Unit 400 / 400 [id number] Rbc As-3 Leukoreduced Unit 400 / 400 [id number] Rbc As-3 Leukoreduced Unit 400 / 400 [id number] Output: Urine 0 / 0 Hemodialysis Amount 3000 / 3000 Gastric Drainage 0 / 0 Right Nare Nasogastric Tube 0 / 0 Wound Drainage 550 / 550 500 / 500 # 1 Right Abdomen 0 / 0 0 / 0 # 2 Right Abdomen 550 / 550 500 / 500 Chest Tube Drainage 40 / 40 #1 Left Pleural 40 / 40 Other: Date of Last Bowel Movement 12/16/17 12/17/17 # Bowel Movements 6 Result Diagrams: 12/17/17 05:18 12/17/17 05:18 Objective Remarks: GEN: Chronically ill-appearing, sedated with propofol and fentanyl HEENT: NCAT, pupils 3 mm and reactive bilaterally. Pale NECK: RIJ vasc-cath and LIJ TLC present, clean/ dry/ intact CARDIO: NSR, regular rhythm, no JVD PULM: On PRVC. Scattered rhonchi persist, decreased breath sounds both bases. L pigtail in place GI: Midline surgical bandages clean/ dry/ intact. ZAINAB #1 is anterior to esophagojejunostomy anastomosis, ZAINAB #2 posterior, both with serosanguineous drainage. Abdomen soft. Large amount of melanotic stools SKIN: No rashes or lesions, dry NEURO: Moves 4 limbs spontaneously. Purposeful with arms, tracks with eyes. Follow commands, more awake today. Assessment and Plan - Problem List (1) Gastric perforation Code(s): K25.5 - Chronic or unspecified gastric ulcer with perforation Status : Resolved (2) Status post total gastrectomy and Dinh-en-Y esophagojejunal anastomosis Code(s): Z90.3 - Acquired absence of stomach [part of]; Z98.0 - Intestinal bypass and anastomosis status Status: Acute (3) Ischemic hepatitis Code(s): K75.9 - Inflammatory liver disease, unspecified Status: Acute (4) Gastric necrosis Code(s): K31.89 - Other diseases of stomach and duodenum Status: Resolved (5) Thrombocytopenia Code(s): D69.6 - Thrombocytopenia, unspecified Status: Acute (6) Acute bilateral deep vein thrombosis (DVT) of upper extremities Code(s): I82.623 - Acute embolism and thrombosis of deep veins of upper extremity, bilateral Status: Acute (7) Anemia Code(s): D64.9 - Anemia, unspecified Status: Acute (8) Leukocytosis Code(s): D72.829 - Elevated white blood cell count, unspecified Status: Acute (9) Candidemia Code(s): B37.7 - Candidal sepsis Status: Acute (10) On total parenteral nutrition (TPN) Code(s): Z78.9 - Other specified health status Status: Acute (11) Hx of cardiac arrest Code(s): Z86.74 - Personal history of sudden cardiac arrest Status: Resolved (12) Acute hemodialysis patient Code(s): Z99.2 - Dependence on renal dialysis Status: Acute (13) JACLYN (acute kidney injury) Code(s): N17.9 - Acute kidney failure, unspecified Status: Acute (14) Aspiration pneumonia Code(s): J69.0 - Pneumonitis due to inhalation of food and vomit Status: Acute (15) Acute respiratory failure Code(s): J96.00 - Acute respiratory failure, unspecified whether with hypoxia or hypercapnia Status: Acute - Assessment and Plan Plan: NEURO: Metabolic encephalopathy On Fentanyl/propofol drips for sedation, pain control. Improving neuro exam, continue daily sedation vacation RESP: Acute respiratory failure Left pleural effusion PRVC, Ventilator Bundle Spontaneous breathing trials as tolerated Scheduled and as needed breathing treatments Left pigtail chest tube to waterseal-remove in 24 hours if output less than 150 CV: Cardiac arrest 11/23/17 (PEA arrest due to shock secondary to acute gastric perf and tension pneumoperitoneum) Septic shock, resolved Now off pressors. Hemodynamic monitoring Use as needed medication for hypertension Fluid removal with hemodialysis GI: s/p anterior gastric perforation with tension pneumoperitoneum status post ex lap with primary repair with stapler 11/23 On second look 11/25 he was found to have gastric necrosis requiring subtotal gastrectomy and placement of AB Thera VAC dressing. The bowel was in discontinuity and he was transferred to [facility]. On 11/28 he underwent reexploration with Dinh-en-y esophagojejunostomy, feeding jejunostomy placement, diagnostic EGD, primary fascial closure. Gastric necrosis , Ischemic hepatopathy GIB with blood loss anemia NGT to LIWS, leave above esophageal anastomosis to avoid irritation Bleeding appears to be small bowel mucosal bleeding at this point discussed with Dr. Wellington Has feeding jejunostomy and tube feeds with Nepro resumed EGD, enteroscopy 12/12/2017 unremarkable, colonoscopy 12/13/2017 unremarkable. Bleeding scan yesterday did not show any particular site of bleeding ZAINAB drains in place #1 anterior to anastomosis, #2 posterior to the anastomosis. Management per general surgery. One ZAINAB has drainage similar to tube feed. Dr. Wellington to evaluate. If concern will get CT after contrast via J tube Continue TPN renal formula 35 mL/hr. Intermittent lipids daily. Wean TPN while advancing tube feeds wound vac was in place at outside hospital, currently wet to dry dressings in place upon arrival. Had right upper quadrant ultrasound on 11/27/17 that demonstrated contracted gallbladder with sludge. No evidence of cholecystitis. Echogenicity in right liver related to focal fatty change or altered perfusion, patent vascularity. Protonix GTT FEN/RENAL: JACLYN secondary to ischemic ATN HD as started 11/26 at [place]. Has R IJ Vascath. Monitor I/O and electrolytes. Nephrology following ID: Gastric perforation with large amount particulate peritoneal contamination 11/23 Acute Aspiration pneumonia Candidemia (C Glabrata 11/26 at culture) Patient had been on micafungin 100 mg IV daily (started at ) with last administration at 10 AM on 11/29. Was previously on Diflucan IV. On Zosyn 2.25 IV every 8 hours with last administration 11/29 at noon. Continue Zosyn/micafungin. ID following Dr. Millan Patient evaluated by ophthalmology prior to transfer. Do not see an ophthalmology note in the transfer documentation, requested document. Requested culture data from [facility]. Follow-up cultures here Sputum culture 11/24 with pansensitive Klebsiella pneumonia HEME: Anemia requiring transfusion Thrombocytopenia-resolved Bilateral upper extremity DVTs Transfuse 3 units PRBC 12/13, transfuse 1 unit PRBC 12/14/2017, 2U 12/15. GI workup as above. U/s 11/26 BUE - thrombus R axillary, brachial and basilic veins and thrombus in left axillary and left brachial veins. U/s bilateral lower extremities 11/26 at [facility] negative from common femoral to popliteal vein levels. Arrived on heparin drip, due to GI bleed and anemia all anticoagulation is being held Hematology consult was obtained at [facility] and recommended heparin drip and transfuse prn for platelets <50k. ENDO: Monitor Glucose q4 hours and use low dose insulin sliding scale as indicated. PROPH: s/q heparin held due to blood loss anemia, GIB. Protonix for stress ulcer prophylaxis. DVT prophylaxis. ACCESS: R IJ vascath , L IJ CVL. All existing lines were replaced at [facility]. Left IJ line accidentally was dislodged 12/23/2017, new left IJ line placed FULL CODE CCT 35 Remains very critical with continued GI bleed and anemia requiring transfusion. We are unable to find the source of bleed at this time which makes it difficult to manage. Most likely small intestinal mucosal bleeding. Discussed with general surgery (6) Acute bilateral deep vein thrombosis (DVT) of upper extremities Qualifiers: Affected thrombotic vein of extremity: brachial Qualified Code(s): I82.623 - Acute embolism and thrombosis of deep veins of upper extremity, bilateral (15) Acute respiratory failure Qualifiers: Respiratory failure complication: hypoxia Qualified Code(s): J96.01 - Acute respiratory failure with hypoxia
[2017-12-17 20:25] LABS: Hematocrit 24.1 % (39.0-51.0); Hemoglobin 8.2 gm/dL (13.0-17.0); Mean Corpuscular HGB Conc 34.1 % (32.0-36.0); Mean Corpuscular Hemoglobin 28.6 pg (27.0-34.0); Mean Corpuscular Volume 84.1 fL (80.0-100.0); Platelet Count 247 th/mm3 (150-450); Red Blood Count 2.87 mil/mm3 (4.50-5.90); Red Cell Distribution Width 16.4 % (11.6-17.2); White Blood Count 20.2 th/mm3 (4.0-11.0)
[2017-12-17] MEDS: Acetaminophen Inj 650 MG/65 ML VIAL IV.SIG PRN (21:22)
[2017-12-18] MEDS: Insulin NovoLOG Aspart Correctional Sugar Inj SQ SCH ×6 (00:26→22:33)
[2017-12-18] MEDS: Oral Hygiene Kit OROPHARYNG SCH ×4 (00:26→16:00)
[2017-12-18] MEDS: fentaNYL 10 mcg/mL Premix Drip 2,500 MCG/250 ML BAG IV.SIG PRN (02:50)
[2017-12-18] MEDS: Pantoprazole Inj 80 MG in Sodium Chlor 0.9% Inj 100 ML IV.CONT SCH ×3 (02:50→21:16)
[2017-12-18] MEDS: Propofol 1000 mg/100 ml Inj 1,000 MG/100 ML BOTTLE IV.CONT PRN ×2 (04:44→16:55)
[2017-12-18] MEDS: Piperacil/Tazo 2.25 GM Premix 50 ML IV.SIG SCH ×3 (05:27→21:15)
[2017-12-18 05:46] LABS: Hemoglobin 7.3 gm/dL (13.0-17.0); Mean Corpuscular HGB Conc 35.4 % (32.0-36.0); Mean Corpuscular Hemoglobin 29.6 pg (27.0-34.0); Mean Corpuscular Volume 83.6 fL (80.0-100.0); Mean Platelet Volume 8.9 fL (7.0-11.0); Platelet Count 230 th/mm3 (150-450); Red Blood Count 2.48 mil/mm3 (4.50-5.90); Red Cell Distribution Width 16.6 % (11.6-17.2); White Blood Count 19.8 th/mm3 (4.0-11.0)
[2017-12-18 05:54] LABS: Hematocrit 20.7 % (39.0-51.0)
[2017-12-18 06:26] LABS: Albumin 1.7 g/dL (3.4-5.0); Calcium 7.4 mg/dL (8.5-10.1); Carbon Dioxide 25.4 meq/L (21.0-32.0); Magnesium 2.2 mg/dL (1.5-2.5); Phosphorus 4.9 mg/dL (2.5-4.9); Total Protein 5.1 g/dL (6.4-8.2)
[2017-12-18 06:35] LABS: Potassium 2.8 meq/L (3.5-5.1)
[2017-12-18] MEDS: Chlorhexidine 0.12% Oral Kit 15 ML UDC OROPHARYNG SCH ×2 (07:45→20:16)
[2017-12-18] MEDS: Potassium Chlor 20 mEq Premix 20 MEQ/100 ML PIGGYBACK IV.SIG SCH ×2 (08:59→11:35)
[2017-12-18] MEDS: Calcium Acetate 667 MG Capsule PO SCH ×3 (09:01→18:06)
[2017-12-18] MEDS: hydrALAZINE 50 MG Tablet PO SCH ×3 (09:01→18:06)
--- NOTE | 2017-12-18 11:29 | P.PNNP ---
Subjective Interval history: Patient was seen, no distress. Patient was following people in the room with his eyes and was able to acknowledge me when being spoken to. Patient's K was 2.8, IV potassium was given today. Patient's Hemoglobin was 7.3 today. He received 3 units of PRBC yesterday and was receiving one unit today. Per the nurse, possible extubation today and one of patient's ZAINAB drains were removed yesterday. Patient last dialyzed yesterday, 3 L removed. <Jocelyn Crews - Last Filed: 12/18/17 11:31> Physical Exam Vital signs: Vital Signs 12/17/17 12:00 12/17/17 12:35 12/17/17 13:00 Temperature 99.2 F Pulse Rate 107 H 108 H Respiratory Rate 44 H 23 50 H Blood Pressure 129/56 L Pulse Oximetry 100 100 100 12/17/17 14:00 12/17/17 14:42 12/17/17 15:00 Temperature Pulse Rate 104 H 108 H Respiratory Rate 65 H 19 72 H Blood Pressure Pulse Oximetry 100 100 12/17/17 16:00 12/17/17 16:34 12/17/17 17:00 Temperature 99.6 F Pulse Rate 109 H 112 H Respiratory Rate 85 H 17 35 H Blood Pressure 146/59 H Pulse Oximetry 92 L 98 99 12/17/17 18:00 12/17/17 19:00 12/17/17 20:00 Temperature 101.2 F H Pulse Rate 113 H 120 H 116 H Respiratory Rate 81 H 79 H 24 Blood Pressure 130/44 L Pulse Oximetry 100 100 99 12/17/17 21:00 12/17/17 21:45 12/17/17 22:00 Temperature Pulse Rate 116 H 117 H Respiratory Rate 20 23 24 Blood Pressure Pulse Oximetry 100 100 100 12/17/17 23:00 12/18/17 00:00 12/18/17 01:00 Temperature 99.6 F Pulse Rate 110 H 114 H 110 H Respiratory Rate 22 79 H 58 H Blood Pressure 160/60 H Pulse Oximetry 100 100 100 12/18/17 02:00 12/18/17 03:00 12/18/17 04:00 Temperature 99.1 F Pulse Rate 107 H 109 H 107 H Respiratory Rate 19 18 21 Blood Pressure 141/54 H Pulse Oximetry 100 100 100 12/18/17 04:23 12/18/17 05:00 12/18/17 06:00 Temperature Pulse Rate 107 H 106 H Respiratory Rate 20 22 21 Blood Pressure Pulse Oximetry 100 100 100 12/18/17 07:00 12/18/17 07:40 12/18/17 08:00 Temperature 99.2 F Pulse Rate 108 H 105 H Respiratory Rate 30 H 23 23 Blood Pressure Pulse Oximetry 100 100 100 12/18/17 09:00 12/18/17 09:42 12/18/17 10:00 Temperature 99.2 F Pulse Rate 112 H 112 H 109 H Respiratory Rate 25 H 25 H 44 H Blood Pressure Pulse Oximetry 100 100 100 12/18/17 10:53 Temperature Pulse Rate Respiratory Rate 22 Blood Pressure Pulse Oximetry 100 Intake & Output 12/17/17 12/18/17 12/18/17 18:59 06:59 18:59 Intake Total 2840 / 2840 1597 / 1597 0 / 0 Output Total 4520 / 4520 1960 / 1960 Balance -1680 / -1680 -363 / -363 0 / 0 Weight 70.7 kg Intake: IV 700 / 700 865 / 865 Protonix Inj 80 MG In NS Inj 100 / 100 100 / 100 100 ML @ 10 mls/hr IV.CONT Q10H COLE Rx#:[id number] Diprivan 1000 mg/100 ml Inj 1, 200 / 200 100 / 100 000 mg In 100 ml @ 5 MCG/KG/MIN 2.859 mls/hr IV.CONT TITRATE PRN Rx#:[id number] Ofirmev Inj 650 mg In 65 ml @ 65 / 65 400 mls/hr IV.SIG Q6H PRN Rx#: [id number] Flexbumin 25% Inj 100 ML @ 60 200 / 200 mls/hr IV.SIG WITH DIALYSIS PRN Rx#:[id number] Mycamine Inj 100 MG In NS Inj 100 / 100 100 ML @ 100 mls/hr IV.SIG Q24H COLE Rx#:[id number] Zosyn 2.25 GM Premix 50 ML @ 100 / 100 100 / 100 100 mls/hr IV.SIG Q8H COLE Rx#: [id number] NS Inj 250 ML @ 15 mls/hr IV. 250 / 250 SIG ONCE COLE Rx#:[id number] fentaNYL 10 mcg/mL Premix Drip 250 / 250 2,500 mcg In 250 ml @ 50 MCG/HR 5 mls/hr IV.SIG TITRATE PRN Rx #:[id number] Tube Feeding 600 / 600 612 / 612 Water Bolus Amount 120 / 120 Other 340 / 340 Rbc As-3 Leukoreduced Unit 250 / 250 [id number] Intake (Blood Product) Amt 1200 / 1200 0 / 0 Rbc As-3 Leukoreduced Unit 400 / 400 [id number] Rbc As-3 Leukoreduced Unit 400 / 400 [id number] Rbc As-3 Leukoreduced Unit 0 / 0 [id number] Rbc As-3 Leukoreduced Unit 400 / 400 [id number] Output: Urine 0 / 0 Urine/Stool Mix 1000 / 1000 1300 / 1300 Hemodialysis Amount 3000 / 3000 Gastric Drainage 0 / 0 Right Nare Nasogastric Tube 0 / 0 Wound Drainage 500 / 500 650 / 650 # 1 Right Abdomen 0 / 0 # 2 Right Abdomen 500 / 500 650 / 650 Chest Tube Drainage #1 Left Pleural Other: Date of Last Bowel Movement 12/17/17 12/18/17 # Incontinent Bowel Movements 3 - Constitutional no acute distress - Routine HEENT Exam Head: Present: normocephalic Eye: Present: EOMI, PERRL ENT: Present: mucous membranes moist - Routine Neck Exam Present: trachea midline. Absent: tracheal deviation - Routine Respiratory Exam Absent: accessory muscle use, decreased breath sounds, respiratory distress Comments: Patient has left sided chest tube. - Routine Cardiovascular Exam Present: RRR, tachycardia - Routine Abdominal Exam Comments: Patient had abdominal binder on. - Routine Rectal Exam Comments: Patient has rectal tube in place. - Routine Extremities Exam Present: edema Comments: Bilateral upper extremity edema. - Detailed Neurological Exam: Coma Scale Eye Opening: Spontaneous Verbal Response: None - Routine Psychiatric Exam Present: unable to assess - Urinary Catheter Management Indwelling Temp Sensing Catheter Cath placed during this visit: no <Jocelyn Crews - Last Filed: 12/18/17 11:31> Vital signs: Vital Signs 12/17/17 19:00 12/17/17 20:00 12/17/17 21:00 Temperature 101.2 F H Pulse Rate 120 H 116 H 116 H Respiratory Rate 79 H 24 20 Blood Pressure 130/44 L Pulse Oximetry 100 99 100 12/17/17 21:45 12/17/17 22:00 12/17/17 23:00 Temperature Pulse Rate 117 H 110 H Respiratory Rate 23 24 22 Blood Pressure Pulse Oximetry 100 100 100 12/18/17 00:00 12/18/17 01:00 12/18/17 02:00 Temperature 99.6 F Pulse Rate 114 H 110 H 107 H Respiratory Rate 79 H 58 H 19 Blood Pressure 160/60 H Pulse Oximetry 100 100 100 12/18/17 03:00 12/18/17 04:00 12/18/17 04:23 Temperature 99.1 F Pulse Rate 109 H 107 H Respiratory Rate 18 21 20 Blood Pressure 141/54 H Pulse Oximetry 100 100 100 12/18/17 05:00 12/18/17 06:00 12/18/17 07:00 Temperature Pulse Rate 107 H 106 H 108 H Respiratory Rate 22 21 30 H Blood Pressure Pulse Oximetry 100 100 100 12/18/17 07:40 12/18/17 08:00 12/18/17 09:00 Temperature 99.2 F Pulse Rate 105 H 112 H Respiratory Rate 23 23 25 H Blood Pressure Pulse Oximetry 100 100 100 12/18/17 09:42 12/18/17 10:00 12/18/17 10:53 Temperature 99.2 F Pulse Rate 112 H 112 H Respiratory Rate 25 H 44 H 22 Blood Pressure Pulse Oximetry 100 100 100 12/18/17 11:00 12/18/17 12:00 12/18/17 13:00 Temperature 99.3 F Pulse Rate 118 H 112 H 116 H Respiratory Rate 46 H 50 H 25 H Blood Pressure Pulse Oximetry 100 100 100 12/18/17 15:45 12/18/17 17:00 Temperature 99.9 F H Pulse Rate 116 H Respiratory Rate 30 H 22 Blood Pressure 119/62 Pulse Oximetry 100 100 Intake & Output 12/17/17 12/18/17 12/18/17 18:59 06:59 18:59 Intake Total 2840 / 2840 1597 / 1597 1450 / 1450 Output Total 4520 / 4520 1959 / 1959 Balance -1680 / -1680 -363 / -363 1450 / 1450 Weight 70.7 kg Intake: IV 700 / 700 865 / 865 550 / 550 Protonix Inj 80 MG In NS Inj 100 / 100 100 / 100 100 / 100 100 ML @ 10 mls/hr IV.CONT Q10H COLE Rx#:[id number] Diprivan 1000 mg/100 ml Inj 1, 200 / 200 100 / 100 100 / 100 000 mg In 100 ml @ 5 MCG/KG/MIN 2.859 mls/hr IV.CONT TITRATE PRN Rx#:[id number] Ofirmev Inj 650 mg In 65 ml @ 65 / 65 400 mls/hr IV.SIG Q6H PRN Rx#: [id number] Flexbumin 25% Inj 100 ML @ 60 200 / 200 mls/hr IV.SIG WITH DIALYSIS PRN Rx#:[id number] Mycamine Inj 100 MG In NS Inj 100 / 100 100 / 100 100 ML @ 100 mls/hr IV.SIG Q24H COLE Rx#:[id number] Zosyn 2.25 GM Premix 50 ML @ 100 / 100 100 / 100 50 / 50 100 mls/hr IV.SIG Q8H COLE Rx#: [id number] KCl 20 mEq Premix Inj 20 meq In 200 / 200 100 ml @ 50 mls/hr IV.SIG Q2H COLE Rx#:[id number] NS Inj 250 ML @ 15 mls/hr IV. 250 / 250 SIG ONCE COLE Rx#:[id number] fentaNYL 10 mcg/mL Premix Drip 250 / 250 2,500 mcg In 250 ml @ 50 MCG/HR 5 mls/hr IV.SIG TITRATE PRN Rx #:[id number] Tube Feeding 600 / 600 612 / 612 Water Bolus Amount 120 / 120 Other 340 / 340 500 / 500 Rbc As-3 Leukoreduced Unit 250 / 250 [id number] Rbc As-3 Leukoreduced Unit 250 / 250 [id number] Rbc As-3 Leukoreduced Unit 250 / 250 [id number] Intake (Blood Product) Amt 1200 / 1200 400 / 400 Rbc As-3 Leukoreduced Unit 400 / 400 [id number] Rbc As-3 Leukoreduced Unit 400 / 400 [id number] Rbc As-3 Leukoreduced Unit 0 / 0 [id number] Rbc As-3 Leukoreduced Unit 400 / 400 [id number] Rbc As-3 Leukoreduced Unit 400 / 400 [id number] Output: Urine 0 / 0 Urine/Stool Mix 1000 / 1000 1300 / 1300 Hemodialysis Amount 3000 / 3000 Gastric Drainage 0 / 0 Right Nare Nasogastric Tube 0 / 0 Wound Drainage 500 / 500 650 / 650 # 1 Right Abdomen 0 / 0 # 2 Right Abdomen 500 / 500 650 / 650 Chest Tube Drainage #1 Left Pleural Other: Date of Last Bowel Movement 12/17/17 12/18/17 12/18/17 # Incontinent Bowel Movements 3 - Urinary Catheter Management Indwelling Temp Sensing Catheter Cath placed during this visit: no <WillieedSantana comerFilipe - Last Filed: 12/18/17 18:30> Assessment and Plan - Assessment (1) JACLYN (acute kidney injury) Code(s): N17.9 - Acute kidney failure, unspecified Status: Acute Plan: Anuric renal failure. He has become dialysis dependent. Patient was dialyzed yesterday, 3 L removed. Patient's K was 2.8, IV potassium was given today. Monitor for recovery. Continue supportive care. Avoid nephrotoxic agents. Patient on PhosLo, monitor phosphorus levels intermittently. Today's phosphorus level 4.9. (2) Acute respiratory failure Code(s): J96.00 - Acute respiratory failure, unspecified whether with hypoxia or hypercapnia Status: Acute Qualifiers: Respiratory failure complication: hypoxia Qualified Code(s): J96.01 - Acute respiratory failure with hypoxia Plan: On the ventilator. Patient has left sided chest tube in place. Possible extubation today. (3) Gastric perforation Code(s): K25.5 - Chronic or unspecified gastric ulcer with perforation Status : Resolved Plan: s/p surgery. Subtotal gastrectomy in [place]. In [facility] he had: Dinh-en-y esophagojejunostomy, feeding jejunostomy placement, diagnostic EGD, primary fascial closure. Date of procedure: 11/28/17 Negative bleeding scan - follow with GI, surgery. No immediate surgical plans at this point (4) Candidemia Code(s): B37.7 - Candidal sepsis Status: Acute Plan: On Micafungin. Dose medications appropriate to renal function. (5) DVT (deep venous thrombosis) Code(s): I82.409 - Acute embolism and thrombosis of unspecified deep veins of unspecified lower extremity Status: Acute Plan: DVT of bilateral upper extremities. (6) Anemia Code(s): D64.9 - Anemia, unspecified Status: Acute Plan: Could be multifactorial. Also could be due to renal failure. 3 units of PRBC transfused yesterday. Today' s Hgb 7.3. Was seen getting one unit PRBC today. Transfuse prn. Bleeding scan negative. <Jocelyn Crews - Last Filed: 12/18/17 11:31> - Assessment (1) JACLYN (acute kidney injury) Code(s): N17.9 - Acute kidney failure, unspecified Status: Acute (2) Acute respiratory failure Code(s): J96.00 - Acute respiratory failure, unspecified whether with hypoxia or hypercapnia Status: Acute Qualifiers: Respiratory failure complication: hypoxia Qualified Code(s): J96.01 - Acute respiratory failure with hypoxia (3) Gastric perforation Code(s): K25.5 - Chronic or unspecified gastric ulcer with perforation Status : Resolved (4) Candidemia Code(s): B37.7 - Candidal sepsis Status: Acute (5) DVT (deep venous thrombosis) Code(s): I82.409 - Acute embolism and thrombosis of unspecified deep veins of unspecified lower extremity Status: Acute (6) Anemia Code(s): D64.9 - Anemia, unspecified Status: Acute - Attending Attestation patient was seen and examined. Agree with above assessment and plan. <Filipe Robertson - Last Filed: 12/18/17 18:30>
--- NOTE | 2017-12-18 12:36 | P.PNID ---
Subjective Remarks: Currently is awake. following commands. On the vent. BP stable. Afebrile. One abdominal drain removed. Cultures have no growth. White blood cell count still elevated. Reintubated 12/04 Antibiotics: Micafungin Zosyn Allergies/Adverse Reactions: Allergies No Known Allergies Allergy (Verified 11/22/17 02:38) Objective Vital Signs 12/17/17 12:35 12/17/17 13:00 12/17/17 14:00 Temperature Pulse Rate 108 H 104 H Respiratory Rate 23 50 H 65 H Blood Pressure Pulse Oximetry 100 100 100 12/17/17 14:42 12/17/17 15:00 12/17/17 16:00 Temperature 99.6 F Pulse Rate 108 H 109 H Respiratory Rate 19 72 H 85 H Blood Pressure 146/59 H Pulse Oximetry 100 92 L 12/17/17 16:34 12/17/17 17:00 12/17/17 18:00 Temperature Pulse Rate 112 H 113 H Respiratory Rate 17 35 H 81 H Blood Pressure Pulse Oximetry 98 99 100 12/17/17 19:00 12/17/17 20:00 12/17/17 21:00 Temperature 101.2 F H Pulse Rate 120 H 116 H 116 H Respiratory Rate 79 H 24 20 Blood Pressure 130/44 L Pulse Oximetry 100 99 100 12/17/17 21:45 12/17/17 22:00 12/17/17 23:00 Temperature Pulse Rate 117 H 110 H Respiratory Rate 23 24 22 Blood Pressure Pulse Oximetry 100 100 100 12/18/17 00:00 12/18/17 01:00 12/18/17 02:00 Temperature 99.6 F Pulse Rate 114 H 110 H 107 H Respiratory Rate 79 H 58 H 19 Blood Pressure 160/60 H Pulse Oximetry 100 100 100 12/18/17 03:00 12/18/17 04:00 12/18/17 04:23 Temperature 99.1 F Pulse Rate 109 H 107 H Respiratory Rate 18 21 20 Blood Pressure 141/54 H Pulse Oximetry 100 100 100 12/18/17 05:00 12/18/17 06:00 12/18/17 07:00 Temperature Pulse Rate 107 H 106 H 108 H Respiratory Rate 22 21 30 H Blood Pressure Pulse Oximetry 100 100 100 12/18/17 07:40 12/18/17 08:00 12/18/17 09:00 Temperature 99.2 F Pulse Rate 105 H 112 H Respiratory Rate 23 23 25 H Blood Pressure Pulse Oximetry 100 100 100 12/18/17 09:42 12/18/17 10:00 12/18/17 10:53 Temperature 99.2 F Pulse Rate 112 H 112 H Respiratory Rate 25 H 44 H 22 Blood Pressure Pulse Oximetry 100 100 100 12/18/17 11:00 Temperature Pulse Rate 118 H Respiratory Rate 46 H Blood Pressure Pulse Oximetry 100 Intake & Output 12/17/17 12/18/17 12/18/17 18:59 06:59 18:59 Intake Total 2840 / 2840 1597 / 1597 200 / 200 Output Total 4520 / 4520 1960 / 1960 Balance -1680 / -1680 -363 / -363 200 / 200 Weight 70.7 kg Intake: IV 700 / 700 865 / 865 200 / 200 Protonix Inj 80 MG In NS Inj 100 / 100 100 / 100 100 / 100 100 ML @ 10 mls/hr IV.CONT Q10H COLE Rx#:[id number] Diprivan 1000 mg/100 ml Inj 1, 200 / 200 100 / 100 000 mg In 100 ml @ 5 MCG/KG/MIN 2.859 mls/hr IV.CONT TITRATE PRN Rx#:[id number] Ofirmev Inj 650 mg In 65 ml @ 65 / 65 400 mls/hr IV.SIG Q6H PRN Rx#: [id number] Flexbumin 25% Inj 100 ML @ 60 200 / 200 mls/hr IV.SIG WITH DIALYSIS PRN Rx#:[id number] Mycamine Inj 100 MG In NS Inj 100 / 100 100 ML @ 100 mls/hr IV.SIG Q24H COLE Rx#:[id number] Zosyn 2.25 GM Premix 50 ML @ 100 / 100 100 / 100 100 mls/hr IV.SIG Q8H COLE Rx#: [id number] KCl 20 mEq Premix Inj 20 meq In 100 / 100 100 ml @ 50 mls/hr IV.SIG Q2H COLE Rx#:[id number] NS Inj 250 ML @ 15 mls/hr IV. 250 / 250 SIG ONCE COLE Rx#:[id number] fentaNYL 10 mcg/mL Premix Drip 250 / 250 2,500 mcg In 250 ml @ 50 MCG/HR 5 mls/hr IV.SIG TITRATE PRN Rx #:[id number] Tube Feeding 600 / 600 612 / 612 Water Bolus Amount 120 / 120 Other 340 / 340 Rbc As-3 Leukoreduced Unit 250 / 250 [id number] Intake (Blood Product) Amt 1200 / 1200 0 / 0 Rbc As-3 Leukoreduced Unit 400 / 400 [id number] Rbc As-3 Leukoreduced Unit 400 / 400 [id number] Rbc As-3 Leukoreduced Unit 0 / 0 [id number] Rbc As-3 Leukoreduced Unit 400 / 400 [id number] Output: Urine 0 / 0 Urine/Stool Mix 1000 / 1000 1300 / 1300 Hemodialysis Amount 3000 / 3000 Gastric Drainage 0 / 0 Right Nare Nasogastric Tube 0 / 0 Wound Drainage 500 / 500 650 / 650 # 1 Right Abdomen 0 / 0 # 2 Right Abdomen 500 / 500 650 / 650 Chest Tube Drainage #1 Left Pleural Other: Date of Last Bowel Movement 12/17/17 12/18/17 12/18/17 # Incontinent Bowel Movements 3 12/18/17 02:30 Stool Occult Blood - Final Hemoccult positive Lab - Hematology Results 12/17/17 12/17/17 12/18/17 05:18 19:50 05:15 WBC 18.1 H 20.2 H 19.8 H RBC 1.90 L 2.87 L 2.48 L Hgb 5.4 L* D 8.2 L D 7.3 L Hct 16.2 L* 24.1 L 20.7 L* MCV 85.3 84.1 83.6 MCH 28.4 28.6 29.6 MCHC 33.3 34.1 35.4 RDW 23.1 H D 16.4 D 16.6 Plt Count 243 247 230 MPV 9.2 9.0 8.9 Lab - Chemistry Results 12/16/17 12/16/17 12/16/17 12:32 17:33 20:28 Sodium Potassium Chloride Carbon Dioxide Anion Gap BUN Creatinine Estimated GFR POC Glucose 141 H 149 H 146 H Random Glucose Calcium Prot Corrected Calcium Phosphorus Magnesium Total Bilirubin AST ALT Alkaline Phosphatase Total Protein Albumin 12/17/17 12/17/17 12/17/17 01:52 05:18 12:47 Sodium 146 H Potassium 3.5 Chloride 111 H Carbon Dioxide 18.4 L Anion Gap 17 H BUN 108 H Creatinine 7.09 H Estimated GFR 10 L POC Glucose 141 H 133 H Random Glucose 126 H Calcium 7.2 L* Prot Corrected Calcium 8.4 L Phosphorus 8.3 H D Magnesium 2.6 H Total Bilirubin 0.5 AST 74 H ALT 94 H Alkaline Phosphatase 156 H Total Protein 4.9 L D Albumin 1.3 L 12/17/17 12/17/17 12/18/17 18:30 20:15 00:07 Sodium Potassium Chloride Carbon Dioxide Anion Gap BUN Creatinine Estimated GFR POC Glucose 124 H 121 H 119 H Random Glucose Calcium Prot Corrected Calcium Phosphorus Magnesium Total Bilirubin AST ALT Alkaline Phosphatase Total Protein Albumin 12/18/17 12/18/17 12/18/17 04:03 05:15 09:56 Sodium 148 H Potassium 2.8 L* Chloride 110 H Carbon Dioxide 25.4 Anion Gap 13 BUN 73 H Creatinine 5.17 H Estimated GFR 15 L POC Glucose 110 126 H Random Glucose 112 H Calcium 7.4 L* Prot Corrected Calcium 8.5 Phosphorus 4.9 D Magnesium 2.2 Total Bilirubin 0.7 AST 81 H ALT 90 H Alkaline Phosphatase 136 H Total Protein 5.1 L Albumin 1.7 L Imaging: ITS Impressions Head MRI 12/03/17 00:00 CONCLUSION: 1. Minimal nonspecific periventricular white matter changes. 2. No restricted diffusion to suggest an acute ischemic event. 3. No evidence for significant ischemic changes. Chest CT 12/04/17 00:06 CONCLUSION: 1. Left greater than right pleural effusions and basilar atelectasis. 2. No hemorrhage or hematoma demonstrated. 3. Distended and fluid-filled esophagus. No wall thickening. Patient is status post gastrectomy. Nasogastric tube is at the GE junction. 4. Body wall edema/anasarca. Abdomen X-Ray 12/08/17 00:00 CONCLUSION: 1. 2 left-sided abdominal catheters. 2. Nonspecific bowel gas pattern. Abdomen/Pelvis CT 12/13/17 00:00 CONCLUSION: 1. New proximal small bowel dilatation. No discrete transition point. Contrast is seen in the distal small bowel. Findings may represent ileus or partial obstruction. 2. Postsurgical findings with surgical drains in the left upper quadrant. Free fluid is seen in the left upper quadrant. Loculated rounded 5 cm area of fluid with thin peripheral enhancement also noted just inferior to the surgical drains. 3. Prominent left lower lobe pulmonary consolidation and small left pleural effusion. GI Bleed Scan Nuclear Medicine 12/15/17 00:00 CONCLUSION: No active bleeding demonstrated. Chest X-Ray 12/17/17 06:00 CONCLUSION: No significant interval change with persistent left lower lobe consolidation versus atelectasis. Physical Exam: PHYSICAL EXAMINATION: GENERAL: Patient on the vent. Sedated. HEENT: Unable to fully assess. Mucosa is moist. NECK: Supple. LUNGS: Decreased breath sounds. Slight rhonchi at the bases. Left chest tube has serous drainage. HEART: Regular S1, S2. No audible murmur. ABDOMEN: Decreased bowel sounds. ZAINAB drain has serous drainage EXTREMITIES: No clubbing or cyanosis. Both upper extremities has edema. SKIN: No diffuse rash. NEUROLOGIC: unable to assess, intubated. PSYCHIATRIC: Unable to assess. Assessment and Plan - Plan IMPRESSION: 1. Candidemia following gastric perforation and gastric ischemia. Blood culture at [facility] in [place] on 11/26 had Starr glabrata. Repeat blood culture is negative. 2. Status post abdominal surgery. 3. Acute respiratory failure. left pleural effusion. 4. Aspiration. 5. Acute kidney disease. 5. Recent cardiac arrest. 6. Leukocytosis. White blood cell count remains elevated. abx associated diarrhea, bowel wall thickening c.diff neg. No significant change. RECOMMENDATIONS: 1. Continue micafungin for candidemia. 2. Continue piperacillin/tazobactam. 3. Continue to monitor white blood cell count. 4 Monitor temperature.
--- NOTE | 2017-12-18 15:41 | P.PNGI ---
Subjective Interval history: Patient awake, eyes open. Slightly tracks movements Family member at bedside Intubated and mechanically ventilated Physical Exam Vital signs: Vital Signs 12/17/17 16:00 12/17/17 16:34 12/17/17 17:00 Temperature 99.6 F Pulse Rate 109 H 112 H Respiratory Rate 85 H 17 35 H Blood Pressure 146/59 H Pulse Oximetry 92 L 98 99 12/17/17 18:00 12/17/17 19:00 12/17/17 20:00 Temperature 101.2 F H Pulse Rate 113 H 120 H 116 H Respiratory Rate 81 H 79 H 24 Blood Pressure 130/44 L Pulse Oximetry 100 100 99 12/17/17 21:00 12/17/17 21:45 12/17/17 22:00 Temperature Pulse Rate 116 H 117 H Respiratory Rate 20 23 24 Blood Pressure Pulse Oximetry 100 100 100 12/17/17 23:00 12/18/17 00:00 12/18/17 01:00 Temperature 99.6 F Pulse Rate 110 H 114 H 110 H Respiratory Rate 22 79 H 58 H Blood Pressure 160/60 H Pulse Oximetry 100 100 100 12/18/17 02:00 12/18/17 03:00 12/18/17 04:00 Temperature 99.1 F Pulse Rate 107 H 109 H 107 H Respiratory Rate 19 18 21 Blood Pressure 141/54 H Pulse Oximetry 100 100 100 12/18/17 04:23 12/18/17 05:00 12/18/17 06:00 Temperature Pulse Rate 107 H 106 H Respiratory Rate 20 22 21 Blood Pressure Pulse Oximetry 100 100 100 12/18/17 07:00 12/18/17 07:40 12/18/17 08:00 Temperature 99.2 F Pulse Rate 108 H 105 H Respiratory Rate 30 H 23 23 Blood Pressure Pulse Oximetry 100 100 100 12/18/17 09:00 12/18/17 09:42 12/18/17 10:00 Temperature 99.2 F Pulse Rate 112 H 112 H 112 H Respiratory Rate 25 H 25 H 44 H Blood Pressure Pulse Oximetry 100 100 100 12/18/17 10:53 12/18/17 11:00 12/18/17 12:00 Temperature 99.3 F Pulse Rate 118 H 112 H Respiratory Rate 22 46 H 50 H Blood Pressure Pulse Oximetry 100 100 100 12/18/17 13:00 Temperature Pulse Rate 116 H Respiratory Rate 25 H Blood Pressure Pulse Oximetry 100 Intake & Output 12/17/17 12/18/17 12/18/17 18:59 06:59 18:59 Intake Total 2840 / 2840 1597 / 1597 400 / 400 Output Total 4520 / 4520 1959 / 1960 Balance -1680 / -1680 -363 / -363 400 / 400 Weight 70.7 kg Intake: IV 700 / 700 865 / 865 400 / 400 Protonix Inj 80 MG In NS Inj 100 / 100 100 / 100 100 / 100 100 ML @ 10 mls/hr IV.CONT Q10H COLE Rx#:[id number] Diprivan 1000 mg/100 ml Inj 1, 200 / 200 100 / 100 000 mg In 100 ml @ 5 MCG/KG/MIN 2.859 mls/hr IV.CONT TITRATE PRN Rx#:[id number] Ofirmev Inj 650 mg In 65 ml @ 65 / 65 400 mls/hr IV.SIG Q6H PRN Rx#: [id number] Flexbumin 25% Inj 100 ML @ 60 200 / 200 mls/hr IV.SIG WITH DIALYSIS PRN Rx#:[id number] Mycamine Inj 100 MG In NS Inj 100 / 100 100 / 100 100 ML @ 100 mls/hr IV.SIG Q24H COLE Rx#:[id number] Zosyn 2.25 GM Premix 50 ML @ 100 / 100 100 / 100 100 mls/hr IV.SIG Q8H COLE Rx#: [id number] KCl 20 mEq Premix Inj 20 meq In 200 / 200 100 ml @ 50 mls/hr IV.SIG Q2H COLE Rx#:[id number] NS Inj 250 ML @ 15 mls/hr IV. 250 / 250 SIG ONCE COLE Rx#:[id number] fentaNYL 10 mcg/mL Premix Drip 250 / 250 2,500 mcg In 250 ml @ 50 MCG/HR 5 mls/hr IV.SIG TITRATE PRN Rx #:[id number] Tube Feeding 600 / 600 612 / 612 Water Bolus Amount 120 / 120 Other 340 / 340 Rbc As-3 Leukoreduced Unit 250 / 250 [id number] Intake (Blood Product) Amt 1200 / 1200 0 / 0 Rbc As-3 Leukoreduced Unit 400 / 400 [id number] Rbc As-3 Leukoreduced Unit 400 / 400 [id number] Rbc As-3 Leukoreduced Unit 0 / 0 [id number] Rbc As-3 Leukoreduced Unit 400 / 400 [id number] Output: Urine 0 / 0 Urine/Stool Mix 1000 / 1000 1300 / 1300 Hemodialysis Amount 3000 / 3000 Gastric Drainage 0 / 0 Right Nare Nasogastric Tube 0 / 0 Wound Drainage 500 / 500 650 / 650 # 1 Right Abdomen 0 / 0 # 2 Right Abdomen 500 / 500 650 / 650 Chest Tube Drainage #1 Left Pleural Other: Date of Last Bowel Movement 12/17/17 12/18/17 12/18/17 # Incontinent Bowel Movements 3 - Constitutional chronically ill appearing Comments: Critically ill - Routine HEENT Exam Head: Present: normocephalic - Routine Respiratory Exam Present: patient mechanically ventilated - Routine Cardiovascular Exam Present: RRR - Routine Abdominal Exam Present: soft, drain. Absent: firm - Routine Extremities Exam Present: pulses intact. Absent: edema - Routine Skin Exam Present: dry, warm - Routine Neurological Exam Present: alert - Urinary Catheter Management Indwelling Temp Sensing Catheter Cath placed during this visit: no Results - Labs CBC & Chem 7: 12/18/17 05:15 12/18/17 05:15 Laboratory Results - last 24 hr 12/04/17 12/16/17 12/17/17 10:46 05:40 18:30 WBC RBC Hgb Hct MCV MCH MCHC RDW Plt Count MPV Sodium Potassium Chloride Carbon Dioxide Anion Gap BUN Creatinine Estimated GFR POC Glucose 124 H Random Glucose Calcium Prot Corrected Calcium Phosphorus Magnesium Total Bilirubin AST ALT Alkaline Phosphatase Total Protein Albumin MTS Gel Crossmatch See Detail See Detail 12/17/17 12/17/17 12/18/17 19:50 20:15 00:07 WBC 20.2 H RBC 2.87 L Hgb 8.2 L D Hct 24.1 L MCV 84.1 MCH 28.6 MCHC 34.1 RDW 16.4 D Plt Count 247 MPV 9.0 Sodium Potassium Chloride Carbon Dioxide Anion Gap BUN Creatinine Estimated GFR POC Glucose 121 H 119 H Random Glucose Calcium Prot Corrected Calcium Phosphorus Magnesium Total Bilirubin AST ALT Alkaline Phosphatase Total Protein Albumin MTS Gel Crossmatch 12/18/17 12/18/17 12/18/17 04:03 05:15 05:15 WBC 19.8 H RBC 2.48 L Hgb 7.3 L Hct 20.7 L* MCV 83.6 MCH 29.6 MCHC 35.4 RDW 16.6 Plt Count 230 MPV 8.9 Sodium 148 H Potassium 2.8 L* Chloride 110 H Carbon Dioxide 25.4 Anion Gap 13 BUN 73 H Creatinine 5.17 H Estimated GFR 15 L POC Glucose 110 Random Glucose 112 H Calcium 7.4 L* Prot Corrected Calcium 8.5 Phosphorus 4.9 D Magnesium 2.2 Total Bilirubin 0.7 AST 81 H ALT 90 H Alkaline Phosphatase 136 H Total Protein 5.1 L Albumin 1.7 L MTS Gel Crossmatch 12/18/17 12/18/17 12/18/17 07:19 09:56 12:25 WBC RBC Hgb Hct MCV MCH MCHC RDW Plt Count MPV Sodium Potassium Chloride Carbon Dioxide Anion Gap BUN Creatinine Estimated GFR POC Glucose 126 H 136 H Random Glucose Calcium Prot Corrected Calcium Phosphorus Magnesium Total Bilirubin AST ALT Alkaline Phosphatase Total Protein Albumin MTS Gel Crossmatch See Detail Microbiology 12/18/17 02:30 Stool Occult Blood - Final Hemoccult positive Assessment and Plan (1) Anemia Status: Acute Code(s): D64.9 - Anemia, unspecified - Plan 12/18/2017 Ventilator weaning in progress WBC 19.8 hemoglobin 7.3 hematocrit 20.7. Blood pressure stable One abdominal drain removed. Tube feeding Nepro at 50 mL's per hour infusing Rectal tube in place-moderate amount of dark brown drainage Plan -NG tube to low intermittent wall suction -Monitor labs-hemoglobin and hematocrit -Transfuse if needed -Monitor for active bleeding -Continue pantoprazole drip -Supportive care -Further recommendations to follow based on patient status and findings This patient has been seen by myself and Dr. Brannon and this note is written on his behalf - Attending Attestation Dr. Brannon
--- NOTE | 2017-12-18 15:58 | P.PNGS ---
Subjective Interval history: Awake; following commands Family at bedside--- pleased with his progress Physical Exam Vital signs: Vital Signs 12/17/17 16:00 12/17/17 16:34 12/17/17 17:00 Temperature 99.6 F Pulse Rate 109 H 112 H Respiratory Rate 85 H 17 35 H Blood Pressure 146/59 H Pulse Oximetry 92 L 98 99 12/17/17 18:00 12/17/17 19:00 12/17/17 20:00 Temperature 101.2 F H Pulse Rate 113 H 120 H 116 H Respiratory Rate 81 H 79 H 24 Blood Pressure 130/44 L Pulse Oximetry 100 100 99 12/17/17 21:00 12/17/17 21:45 12/17/17 22:00 Temperature Pulse Rate 116 H 117 H Respiratory Rate 20 23 24 Blood Pressure Pulse Oximetry 100 100 100 12/17/17 23:00 12/18/17 00:00 12/18/17 01:00 Temperature 99.6 F Pulse Rate 110 H 114 H 110 H Respiratory Rate 22 79 H 58 H Blood Pressure 160/60 H Pulse Oximetry 100 100 100 12/18/17 02:00 12/18/17 03:00 12/18/17 04:00 Temperature 99.1 F Pulse Rate 107 H 109 H 107 H Respiratory Rate 19 18 21 Blood Pressure 141/54 H Pulse Oximetry 100 100 100 12/18/17 04:23 12/18/17 05:00 12/18/17 06:00 Temperature Pulse Rate 107 H 106 H Respiratory Rate 20 22 21 Blood Pressure Pulse Oximetry 100 100 100 12/18/17 07:00 12/18/17 07:40 12/18/17 08:00 Temperature 99.2 F Pulse Rate 108 H 105 H Respiratory Rate 30 H 23 23 Blood Pressure Pulse Oximetry 100 100 100 12/18/17 09:00 12/18/17 09:42 12/18/17 10:00 Temperature 99.2 F Pulse Rate 112 H 112 H 112 H Respiratory Rate 25 H 25 H 44 H Blood Pressure Pulse Oximetry 100 100 100 12/18/17 10:53 12/18/17 11:00 12/18/17 12:00 Temperature 99.3 F Pulse Rate 118 H 112 H Respiratory Rate 22 46 H 50 H Blood Pressure Pulse Oximetry 100 100 100 12/18/17 13:00 11/13/18 15:45 Temperature Pulse Rate 116 H Respiratory Rate 25 H 30 H Blood Pressure Pulse Oximetry 100 100 Intake & Output 12/17/17 12/18/17 12/18/17 18:59 06:59 18:59 Intake Total 2840 / 2840 1597 / 1597 400 / 400 Output Total 4520 / 4520 1959 / 1959 Balance -1680 / -1680 -363 / -363 400 / 400 Weight 70.7 kg Intake: IV 700 / 700 865 / 865 400 / 400 Protonix Inj 80 MG In NS Inj 100 / 100 100 / 100 100 / 100 100 ML @ 10 mls/hr IV.CONT Q10H COLE Rx#:[id number] Diprivan 1000 mg/100 ml Inj 1, 200 / 200 100 / 100 000 mg In 100 ml @ 5 MCG/KG/MIN 2.859 mls/hr IV.CONT TITRATE PRN Rx#:[id number] Ofirmev Inj 650 mg In 65 ml @ 65 / 65 400 mls/hr IV.SIG Q6H PRN Rx#: [id number] Flexbumin 25% Inj 100 ML @ 60 200 / 200 mls/hr IV.SIG WITH DIALYSIS PRN Rx#:[id number] Mycamine Inj 100 MG In NS Inj 100 / 100 100 / 100 100 ML @ 100 mls/hr IV.SIG Q24H COLE Rx#:[id number] Zosyn 2.25 GM Premix 50 ML @ 100 / 100 100 / 100 100 mls/hr IV.SIG Q8H COLE Rx#: [id number] KCl 20 mEq Premix Inj 20 meq In 200 / 200 100 ml @ 50 mls/hr IV.SIG Q2H COLE Rx#:[id number] NS Inj 250 ML @ 15 mls/hr IV. 250 / 250 SIG ONCE COLE Rx#:[id number] fentaNYL 10 mcg/mL Premix Drip 250 / 250 2,500 mcg In 250 ml @ 50 MCG/HR 5 mls/hr IV.SIG TITRATE PRN Rx #:[id number] Tube Feeding 600 / 600 612 / 612 Water Bolus Amount 120 / 120 Other 340 / 340 Rbc As-3 Leukoreduced Unit 250 / 250 [id number] Intake (Blood Product) Amt 1200 / 1200 0 / 0 Rbc As-3 Leukoreduced Unit 400 / 400 [id number] Rbc As-3 Leukoreduced Unit 400 / 400 [id number] Rbc As-3 Leukoreduced Unit 0 / 0 [id number] Rbc As-3 Leukoreduced Unit 400 / 400 [id number] Output: Urine 0 / 0 Urine/Stool Mix 1000 / 1000 1300 / 1300 Hemodialysis Amount 3000 / 3000 Gastric Drainage 0 / 0 Right Nare Nasogastric Tube 0 / 0 Wound Drainage 500 / 500 650 / 650 # 1 Right Abdomen 0 / 0 # 2 Right Abdomen 500 / 500 650 / 650 Chest Tube Drainage #1 Left Pleural Other: Date of Last Bowel Movement 12/17/17 12/18/17 12/18/17 # Incontinent Bowel Movements 3 Narrative: Alert and awake following commands Abd: soft; minimally distended; dressings all removed--- midline incision with wet to dry dressing--- J tube dressing with moderate amount of drainage; JP2 with serous slight haze. Continues to have BUE edema - Urinary Catheter Management Indwelling Temp Sensing Catheter Cath placed during this visit: no Results - Labs 12/18/17 05:15 12/18/17 05:15 Laboratory Results - last 24 hr 12/04/17 12/16/17 12/17/17 10:46 05:40 18:30 WBC RBC Hgb Hct MCV MCH MCHC RDW Plt Count MPV Sodium Potassium Chloride Carbon Dioxide Anion Gap BUN Creatinine Estimated GFR POC Glucose 124 H Random Glucose Calcium Prot Corrected Calcium Phosphorus Magnesium Total Bilirubin AST ALT Alkaline Phosphatase Total Protein Albumin MTS Gel Crossmatch See Detail See Detail 12/17/17 12/17/17 12/18/17 19:50 20:15 00:07 WBC 20.2 H RBC 2.87 L Hgb 8.2 L D Hct 24.1 L MCV 84.1 MCH 28.6 MCHC 34.1 RDW 16.4 D Plt Count 247 MPV 9.0 Sodium Potassium Chloride Carbon Dioxide Anion Gap BUN Creatinine Estimated GFR POC Glucose 121 H 119 H Random Glucose Calcium Prot Corrected Calcium Phosphorus Magnesium Total Bilirubin AST ALT Alkaline Phosphatase Total Protein Albumin MTS Gel Crossmatch 12/18/17 12/18/17 12/18/17 04:03 05:15 05:15 WBC 19.8 H RBC 2.48 L Hgb 7.3 L Hct 20.7 L* MCV 83.6 MCH 29.6 MCHC 35.4 RDW 16.6 Plt Count 230 MPV 8.9 Sodium 148 H Potassium 2.8 L* Chloride 110 H Carbon Dioxide 25.4 Anion Gap 13 BUN 73 H Creatinine 5.17 H Estimated GFR 15 L POC Glucose 110 Random Glucose 112 H Calcium 7.4 L* Prot Corrected Calcium 8.5 Phosphorus 4.9 D Magnesium 2.2 Total Bilirubin 0.7 AST 81 H ALT 90 H Alkaline Phosphatase 136 H Total Protein 5.1 L Albumin 1.7 L MTS Gel Crossmatch 12/18/17 12/18/17 12/18/17 07:19 09:56 12:25 WBC RBC Hgb Hct MCV MCH MCHC RDW Plt Count MPV Sodium Potassium Chloride Carbon Dioxide Anion Gap BUN Creatinine Estimated GFR POC Glucose 126 H 136 H Random Glucose Calcium Prot Corrected Calcium Phosphorus Magnesium Total Bilirubin AST ALT Alkaline Phosphatase Total Protein Albumin MTS Gel Crossmatch See Detail - Imaging Imaging: ITS Impressions Head MRI 12/03/17 00:00 CONCLUSION: 1. Minimal nonspecific periventricular white matter changes. 2. No restricted diffusion to suggest an acute ischemic event. 3. No evidence for significant ischemic changes. Chest CT 12/04/17 00:06 CONCLUSION: 1. Left greater than right pleural effusions and basilar atelectasis. 2. No hemorrhage or hematoma demonstrated. 3. Distended and fluid-filled esophagus. No wall thickening. Patient is status post gastrectomy. Nasogastric tube is at the GE junction. 4. Body wall edema/anasarca. Abdomen X-Ray 12/08/17 00:00 CONCLUSION: 1. 2 left-sided abdominal catheters. 2. Nonspecific bowel gas pattern. Abdomen/Pelvis CT 12/13/17 00:00 CONCLUSION: 1. New proximal small bowel dilatation. No discrete transition point. Contrast is seen in the distal small bowel. Findings may represent ileus or partial obstruction. 2. Postsurgical findings with surgical drains in the left upper quadrant. Free fluid is seen in the left upper quadrant. Loculated rounded 5 cm area of fluid with thin peripheral enhancement also noted just inferior to the surgical drains. 3. Prominent left lower lobe pulmonary consolidation and small left pleural effusion. GI Bleed Scan Nuclear Medicine 12/15/17 00:00 CONCLUSION: No active bleeding demonstrated. Chest X-Ray 12/17/17 06:00 CONCLUSION: No significant interval change with persistent left lower lobe consolidation versus atelectasis. Assessment and Plan - Assessment (1) Gastric perforation Code(s): K25.5 - Chronic or unspecified gastric ulcer with perforation Status : Resolved Plan: 47yo male s/p Exlap and gastrectomy for gastric perforation, s/p esophagojejunostomy at [facility] -Intubated---vent per CCM -TF at 50 cc via J tube ---tolerating -Hmg stable today -Stool now brown in color -S/p EGD/colonoscopy and NM bleeding scan negative -Continue to monitor/follow from surgery standpoint -Replace abdominal binder - Plan I personally evaluated the patient in room 1313. He has been on CPAP all day and did well. He is hemodynamically stable. His wounds are healing well. He is tolerating tube feeds. Stools been mostly liquid brown with a tinge of maroon. Hemoglobin was 7. He received 2 units of blood today. I discussed his case with his aunt at the bedside and Dr. Bacon The exam, history, and the medical decision-making described in the above note were completed with the assistance of the mid-level provider. I reviewed and agree with the findings presented. I attest that I had a [id number] encounter with the patient on the same day, and personally performed and documented my assessment and findings in the medical record.
[2017-12-18] MEDS ORDERED: Sodium Chlor 0.9% Inj 250 ML IV.SIG SCH (16:00)
--- NOTE | 2017-12-18 16:01 | P.PNCC ---
Subjective Subjective Remarks/Hospital Course: Patient was recently admitted to [facility] 11/22 and transferred to [facility] 11/26/17 after the following hospital course: 47-year-old -Polish male with reportedly no past medical or past surgical history who was admitted to hospitalist service 11/22/17 after presenting with abdominal pain, nausea, vomiting. He had CT abd/pelvis with massive gastric distention. NG tube had been placed. I was called to patient's bedside for CODE BLUE PEA arrest. CPR was ongoing and patient had massive abdominal distension and gastric regurgitant in the airway. He was emergently intubated and large amount of gastric secretions suctioned from oropharynx. After 21 minutes of CPR, ROSC was obtained and he was profoundly hypotensive. Continued aggressive fluid resuscitation and initiated dopamine. He was transferred to [facility] where CVL and R radial art line were placed and he was given 7 L of crystalloid and albumin. CXR demonstrated pneumoperitoneum and Dr. Martin Gudino was called emergently and he immediately contacted OR for emergent ex lap. He had intraabdominal hypertension with IAP of 40 mmHg, though fortunately was able to be ventilated adequately after rocuronium 50 mg IV and was transferred to OR. Dr. Martin Gudino took to the operating room early in the morning on 11/23 and discovered tension pneumoperitoneum, massive gastric distension, ischemia of the proximal 2/3 of the stomach and large gastric perforation with massive intraperitoneal contamination with food particles. Dr. Isaacs placed 2 NGT and decompressed 2 L of succus. Patient had initial improvement in vital signs in the immediate postoperative period, however he subsequently became hypotensive requiring upward titration of levophed and addition of vasopressin and stress dose hydrocortisone. He remains on levophed 10 mcg/min, neosynephrine 80 mcg/ min, vasopressin 0.04 units/min with overall vasopressor requirement weaning overnight. He is oliguric and creatinine is continuing to climb. He was given 2 L of crystalloid and albumin overnight. He does have significant fluid losses with combination of abdominal dressing and NGT output, so I will give an additional L of crystalloid now to monitor hourly response as he certainly does not appear volume overloaded. Nonetheless Flotrac numbers are suggesting adequate volume status and we may be seeing the consequence of ischemic ATN. May ultimately require HD, however not at this time. Abdomen remains open and plan is to re-explore 11/25. 11/25: Patient has acceptable hemodynamics by Flotrac but remains septic with requirements for phenylephrine 200 mics per minute, Levophed 8 mics per minute and vasopressin 0.04 units/min for blood pressure support. This has improved overnight and the Bhavesh-Synephrine support has been weaned off completely. Acid base balance is acceptable. ATN has developed which will undoubtedly require hemodialysis. Potassium level is normal. He is at increased risk for an anesthetic now but there is an urgent need to check for residual gastric necrosis. 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 Since the source control surgery, the maintenance of normal acid-base balance has been less difficult. Patient remains anuric with a rising creatinine above 6.0. He is clearly ahead on volume and will benefit from dialysis. A 2 lumen hemodialysis catheter was placed on 11/25 and has been packed with dilute heparin solution. The right internal jugular central line is been in place for 4 days and accessed multiple times. The femoral art line has been in for 4 days. Shock liver was apparent after the cardiac arrest reflecting a transaminitis, elevated bilirubin, and prolonged INR. The INR has remained normal following the transfusion of 4 units of fresh frozen plasma prior to surgery yesterday. A 10% dextrose infusion continues because of ongoing problems with hypoglycemia. Thrombocytopenia at 37,000 persists. He has remained on antibiotic coverage with Pipracil/tazobactam and fungal coverage with fluconazole, all adjusted for renal failure. Present vasopressor requirements include levophed at 7 mics per minute and vasopressin at 0.04 units/min. The chest x-ray is consistent with minor aspiration at the time of his preoperative cardiac arrest on the floor and cultures have subsequently grown Klebsiella, pansensitive. The operative note will clarify the extent of the surgery but in essence the distal esophagus is stapled off and marked with 2 Prolene sutures. The antrum of the stomach is oversewn. Most of the stomach has been removed. The abdomen is open with a VAC dressing applied. Subjective: 11/29: Bowel was in discontinuity following subtotal gastrectomy and patient was transferred to [facility]. On reexploration 11/28 he underwent Dinh-en-y esophagojejunostomy, feeding jejunostomy placement, diagnostic EGD, primary fascial closure. Wound vac was applied to abdomen (though currently wet to dry dressing in place upon arrival). He was reportedly found to have candidemia and was started on micafungin and has undergone ophtho eval. Lines including CVL, Vascath and art line have all been changed at [facility] (though not clear when). He remains on mechanical ventilation and has been weaned off pressors. He was found to have BUE DVTs and is on heparin drip. He is on TPN and has been started on trickle tube feeds with Nepro via jejunostomy. NGT is to [facility]. He underwent HD postoperatively on 11/28. He has now been transferred back to [facility] for ongoing management. I have updated his father and stepmother. 11/30: Patient re-admitted s/p transfer from [facility] overnight, otherwise no acute issues. Scheduled to undergo HD today. 12/01: T-max 101.7, leukocytosis to 27,000 with bandemia. Now 3 days following Dinh-en-Y reconstruction of GI tract following sub-total gastrectomy for gastric necrosis. All new lines placed after diagnosis of candidemia. TPN infusing, jejunostomy at trickle flow and can be increased slowly per general surgery. 12/02: Marked leukocytosis with bandemia persists. Afebrile over last 24 hours. Leave NG tube across the esophageal anastomosis and surgical service will direct timing of contrast study about 7 days following surgery. Continue with spontaneous breathing trials. 12/03: extubated yesterday. since then, has not followed commands, and does not talk. appears to have clinically an aphasia, although his uremia or severe hypoactive delirium could present this way. purposeful movements. will obtain MRI to rule out acute ischemia, as this appears to be a new mental status change (11/29 /[facility] notes state interactive on ventilator). 12/04: reintubated overnight: more output from ZAINAB drains. hgb dropped to 7 this AM: receiving 1 unit prbc. MRI negative for acute change. EEG ordered today to rule out subclinical status epilepticus. also concern overnight for aspiration event. 12/05: T-max 99. WBC 24,000. Reintubated yesterday for respiratory failure probably related to aspiration. Trickle feeding continues through jejunostomy. Nasogastric tube is through the anastomosis and is to low intermittent. 12/06: Afebrile. WBC 26,000. Bandemia has largely resolved. There are bilateral pleural effusions which may need to be tapped to rule out infection or leak. Both lower lobes are consolidated on CAT scan, probably representing compressive atelectasis from the effusions. 12/07: White count remains elevated at 25,000. Total parenteral nutrition infusing and tolerated. Altered mental status persists, possibly related to the cardiac arrest on the floor prior to transfer to the ICU. 12/08: Tolerating total parenteral nutrition with good glucose control. Leukocytosis persists. Fluid tap from left chest bit cloudy, cultures pending. Maintaining adequate gas exchange on lower levels of fractional inspired oxygen. Aim for extubation trial again soon. 12/09: Patient considerably less edematous over the past several days following successful dialysis runs. Continually fails attempts at weaning parameters and desaturation. Left chest drainage is no growth by culture. White blood cell count remains elevated. 12/10: Remains intubated. WBC count elevated but stable. Left chest tube with 260 mL output in 24 hours. BUN/creatinine remains elevated 12/11: Remains intubated sedated hemoglobin dropped to 5.8 today. RN has noted lower GI bleed. Protonix IV every 12 started and GI consulted. Transfuse 2 units PRBC. Keep n.p.o. discussed with Dr. Wellington 12/12: Patient remains intubated sedated for vent synchrony. Hemoglobin stable 7.5. Endoscopy negative yesterday CT abdomen pelvis no active bleeding. Hemodynamically remained stable. Receiving hemodialysis at this time. Left chest tube with high output 450 mL in 24 hours. Attempt weaning trials starting today 12/13: Patient continues to lose blood. Hemoglobin 5.5. Plan to get colonoscopy today. Continues to have melanotic stools. The night RN aspirated blood from jejunostomy tube. Enteroscopy yesterday was unremarkable. Transfusing 3 units of PRBC repeat hemoglobin at 2 PM. No significant bloody output from ZAINAB drains. Will discuss with general surgery 12/14: Remains intubated sedated hemoglobin 7.9 today 1 unit PRBC ordered. Can melanotic stools or NG tube coffee-ground today. EGD yesterday showed friable mucosa at the esophageal anastomotic junction which was injected by GI. Otherwise endoscopies including colonoscopies unremarkable. Hemodynamically remained stable. Discussed extensively with GI and general surgery yesterday 12/15: Patient continues to have significant melanotic stools. Hemoglobin dropped to 7.8 and patient received 1 unit PRBC follow-up hemoglobin only 7.9. Additional 1 unit PRBC ordered. Status post EGD colonoscopy-essentially unremarkable except irritation at the esophageal anastomotic site. Bleeding is most likely small intestinal 12/16: Critically ill but slightly more stable today no obvious melanotic stools. According to the bedside RN when the tube feeds were disconnected there was some bleeding from the jejunostomy tube. Hemoglobin remained stable 7.8. Discussed with Dr. Wellington general surgeon, and his opinion bleeding likely from mucosal sloughing. Initiate spontaneous breathing trials 12/17: Remains critical hemoglobin dropped to 5.4 getting 3 units of PRBC. Extensive workup including EGD colonoscopy and bleeding scans x2 have been negative for active bleed. This seems to be most likely small intestinal bleed from mucosal bleed. Also it was not that the ZAINAB drain has color similar to tube feeds. I discussed with Dr. Wellington he will evaluate the patient afternoon. If there is suspicions will get CT scan after contrast through the J -tube 12/18: More awake alert follows commands weekly. No obvious bleeding hemoglobin 7.3. Will transfuse 1 unit PRBC. Objective Vital Signs / I&O: Vital Signs 12/17/17 16:00 12/17/17 16:34 12/17/17 17:00 Temperature 99.6 F Pulse Rate 109 H 112 H Respiratory Rate 85 H 17 35 H Blood Pressure 146/59 H Pulse Oximetry 92 L 98 99 12/17/17 18:00 12/17/17 19:00 12/17/17 20:00 Temperature 101.2 F H Pulse Rate 113 H 120 H 116 H Respiratory Rate 81 H 79 H 24 Blood Pressure 130/44 L Pulse Oximetry 100 100 99 12/17/17 21:00 12/17/17 21:45 12/17/17 22:00 Temperature Pulse Rate 116 H 117 H Respiratory Rate 20 23 24 Blood Pressure Pulse Oximetry 100 100 100 12/17/17 23:00 12/18/17 00:00 12/18/17 01:00 Temperature 99.6 F Pulse Rate 110 H 114 H 110 H Respiratory Rate 22 79 H 58 H Blood Pressure 160/60 H Pulse Oximetry 100 100 100 12/18/17 02:00 12/18/17 03:00 12/18/17 04:00 Temperature 99.1 F Pulse Rate 107 H 109 H 107 H Respiratory Rate 19 18 21 Blood Pressure 141/54 H Pulse Oximetry 100 100 100 12/18/17 04:23 12/18/17 05:00 12/18/17 06:00 Temperature Pulse Rate 107 H 106 H Respiratory Rate 20 22 21 Blood Pressure Pulse Oximetry 100 100 100 12/18/17 07:00 12/18/17 07:40 12/18/17 08:00 Temperature 99.2 F Pulse Rate 108 H 105 H Respiratory Rate 30 H 23 23 Blood Pressure Pulse Oximetry 100 100 100 12/18/17 09:00 12/18/17 09:42 12/18/17 10:00 Temperature 99.2 F Pulse Rate 112 H 112 H 112 H Respiratory Rate 25 H 25 H 44 H Blood Pressure Pulse Oximetry 100 100 100 12/18/17 10:53 12/18/17 11:00 12/18/17 12:00 Temperature 99.3 F Pulse Rate 118 H 112 H Respiratory Rate 22 46 H 50 H Blood Pressure Pulse Oximetry 100 100 100 12/18/17 13:00 12/18/17 15:45 Temperature Pulse Rate 116 H Respiratory Rate 25 H 30 H Blood Pressure Pulse Oximetry 100 100 Intake & Output 12/17/17 12/18/17 12/18/17 18:59 06:59 18:59 Intake Total 2840 / 2840 1597 / 1597 400 / 400 Output Total 4520 / 4520 1960 / 1960 Balance -1680 / -1680 -363 / -363 400 / 400 Weight 70.7 kg Intake: IV 700 / 700 865 / 865 400 / 400 Protonix Inj 80 MG In NS Inj 100 / 100 100 / 100 100 / 100 100 ML @ 10 mls/hr IV.CONT Q10H COLE Rx#:[id number] Diprivan 1000 mg/100 ml Inj 1, 200 / 200 100 / 100 000 mg In 100 ml @ 5 MCG/KG/MIN 2.859 mls/hr IV.CONT TITRATE PRN Rx#:[id number] Ofirmev Inj 650 mg In 65 ml @ 65 / 65 400 mls/hr IV.SIG Q6H PRN Rx#: [id number] Flexbumin 25% Inj 100 ML @ 60 200 / 200 mls/hr IV.SIG WITH DIALYSIS PRN Rx#:[id number] Mycamine Inj 100 MG In NS Inj 100 / 100 100 / 100 100 ML @ 100 mls/hr IV.SIG Q24H COLE Rx#:[id number] Zosyn 2.25 GM Premix 50 ML @ 100 / 100 100 / 100 100 mls/hr IV.SIG Q8H COLE Rx#: [id number] KCl 20 mEq Premix Inj 20 meq In 200 / 200 100 ml @ 50 mls/hr IV.SIG Q2H COLE Rx#:[id number] NS Inj 250 ML @ 15 mls/hr IV. 250 / 250 SIG ONCE COLE Rx#:[id number] fentaNYL 10 mcg/mL Premix Drip 250 / 250 2,500 mcg In 250 ml @ 50 MCG/HR 5 mls/hr IV.SIG TITRATE PRN Rx #:[id number] Tube Feeding 600 / 600 612 / 612 Water Bolus Amount 120 / 120 Other 340 / 340 Rbc As-3 Leukoreduced Unit 250 / 250 [id number] Intake (Blood Product) Amt 1200 / 1200 0 / 0 Rbc As-3 Leukoreduced Unit 400 / 400 [id number] Rbc As-3 Leukoreduced Unit 400 / 400 [id number] Rbc As-3 Leukoreduced Unit 0 / 0 [id number] Rbc As-3 Leukoreduced Unit 400 / 400 [id number] Output: Urine 0 / 0 Urine/Stool Mix 1000 / 1000 1300 / 1300 Hemodialysis Amount 3000 / 3000 Gastric Drainage 0 / 0 Right Nare Nasogastric Tube 0 / 0 Wound Drainage 500 / 500 650 / 650 # 1 Right Abdomen 0 / 0 # 2 Right Abdomen 500 / 500 650 / 650 Chest Tube Drainage 20 / 20 10 / 10 #1 Left Pleural 20 / 20 10 / 10 Other: Date of Last Bowel Movement 12/17/17 12/18/17 12/18/17 # Incontinent Bowel Movements 3 Result Diagrams: 12/18/17 05:15 12/18/17 05:15 Objective Remarks: GEN: Chronically ill-appearing, on awake alert on propofol and fentanyl HEENT: NCAT, pupils 3 mm and reactive bilaterally. Pale NECK: RIJ vasc-cath and LIJ TLC present, clean/ dry/ intact CARDIO: NSR, regular rhythm, no JVD PULM: On PRVC. Scattered rhonchi persist, decreased breath sounds both bases. L pigtail in place, 30 ml in 24 hours GI: Midline surgical bandages clean/ dry/ intact. ZAINAB #1 is anterior to esophagojejunostomy anastomosis, ZAINAB #2 posterior, both with serosanguineous drainage. Abdomen soft. Large amount of melanotic stools SKIN: No rashes or lesions, dry NEURO: More awake today, tracking following commands. Moves 4 limbs spontaneously. Assessment and Plan - Problem List (1) Gastric perforation Code(s): K25.5 - Chronic or unspecified gastric ulcer with perforation Status : Resolved (2) Status post total gastrectomy and Dinh-en-Y esophagojejunal anastomosis Code(s): Z90.3 - Acquired absence of stomach [part of]; Z98.0 - Intestinal bypass and anastomosis status Status: Acute (3) Ischemic hepatitis Code(s): K75.9 - Inflammatory liver disease, unspecified Status: Acute (4) Gastric necrosis Code(s): K31.89 - Other diseases of stomach and duodenum Status: Resolved (5) Thrombocytopenia Code(s): D69.6 - Thrombocytopenia, unspecified Status: Acute (6) Acute bilateral deep vein thrombosis (DVT) of upper extremities Code(s): I82.623 - Acute embolism and thrombosis of deep veins of upper extremity, bilateral Status: Acute (7) Anemia Code(s): D64.9 - Anemia, unspecified Status: Acute (8) Leukocytosis Code(s): D72.829 - Elevated white blood cell count, unspecified Status: Acute (9) Candidemia Code(s): B37.7 - Candidal sepsis Status: Acute (10) On total parenteral nutrition (TPN) Code(s): Z78.9 - Other specified health status Status: Acute (11) Hx of cardiac arrest Code(s): Z86.74 - Personal history of sudden cardiac arrest Status: Resolved (12) Acute hemodialysis patient Code(s): Z99.2 - Dependence on renal dialysis Status: Acute (13) JACLYN (acute kidney injury) Code(s): N17.9 - Acute kidney failure, unspecified Status: Acute (14) Aspiration pneumonia Code(s): J69.0 - Pneumonitis due to inhalation of food and vomit Status: Acute (15) Acute respiratory failure Code(s): J96.00 - Acute respiratory failure, unspecified whether with hypoxia or hypercapnia Status: Acute - Assessment and Plan Plan: NEURO: Metabolic encephalopathy On Fentanyl/propofol drips for sedation, pain control. Improving neuro exam, continue daily sedation vacation Following commands x4 RESP: Acute respiratory failure Left pleural effusion PRVC, Ventilator Bundle Spontaneous breathing trials as tolerated-failed today Scheduled and as needed breathing treatments Left pigtail chest tube to waterseal-remove today CV: Cardiac arrest 11/23/17 (PEA arrest due to shock secondary to acute gastric perf and tension pneumoperitoneum) Septic shock, resolved Now off pressors. Hemodynamic monitoring Use as needed medication for hypertension Fluid removal with hemodialysis GI: s/p anterior gastric perforation with tension pneumoperitoneum status post ex lap with primary repair with stapler 11/23 On second look 11/25 he was found to have gastric necrosis requiring subtotal gastrectomy and placement of AB Thera VAC dressing. The bowel was in discontinuity and he was transferred to [facility]. On 11/28 he underwent reexploration with Dinh-en-y esophagojejunostomy, feeding jejunostomy placement, diagnostic EGD, primary fascial closure. Gastric necrosis , Ischemic hepatopathy GIB with blood loss anemia NGT to LIWS, leave above esophageal anastomosis to avoid irritation Bleeding appears to be small bowel mucosal bleeding at this point discussed with Dr. Wellington Has feeding jejunostomy and tube feeds with Nepro resumed EGD, enteroscopy 12/12/2017 unremarkable, colonoscopy 12/13/2017 unremarkable. Bleeding scan did not show any particular site of bleeding ZAINAB drains in place #1 anterior to anastomosis, #2 posterior to the anastomosis. Management per general surgery. Continue TPN renal formula 35 mL/hr. Intermittent lipids daily. Wean TPN while advancing tube feeds Had right upper quadrant ultrasound on 11/27/17 that demonstrated contracted gallbladder with sludge. No evidence of cholecystitis. Echogenicity in right liver related to focal fatty change or altered perfusion, patent vascularity. Protonix GTT FEN/RENAL: JACLYN secondary to ischemic ATN HD as started 11/26 at [place]. Has R IJ Vascath. Monitor I/O and electrolytes. Nephrology following ID: Gastric perforation with large amount particulate peritoneal contamination 11/23 Acute Aspiration pneumonia Candidemia (C Glabrata 11/26 at culture) Continue Zosyn/micafungin. ID following Dr. Millan Patient evaluated by ophthalmology prior to transfer. Do not see an ophthalmology note in the transfer documentation, requested document. Requested culture data from [facility]. Follow-up cultures here Sputum culture 11/24 with pansensitive Klebsiella pneumonia HEME: Anemia requiring transfusion Thrombocytopenia-resolved Bilateral upper extremity DVTs Transfuse 3 units PRBC 12/13, transfuse 1 unit PRBC 12/14/2017, 2U 12/15. GI workup as above. 2U PRBC 12/18/17 U/s 11/26 BUE - thrombus R axillary, brachial and basilic veins and thrombus in left axillary and left brachial veins. U/s bilateral lower extremities 11/26 at [facility] negative from common femoral to popliteal vein levels. Arrived on heparin drip, due to GI bleed and anemia all anticoagulation is being held Hematology consult was obtained at [facility] and recommended heparin drip and transfuse prn for platelets <50k. ENDO: Monitor Glucose q4 hours and use low dose insulin sliding scale as indicated. PROPH: s/q heparin held due to blood loss anemia, GIB. Protonix for stress ulcer prophylaxis. DVT prophylaxis. ACCESS: R IJ vascath , L IJ CVL. All existing lines were replaced at [facility]. Left IJ line accidentally was dislodged 12/23/2017, new left IJ line placed FULL CODE Level 3 Remains very critical with continued GI bleed and anemia requiring transfusion. Most likely small intestinal mucosal bleeding. Discussed with general surgery (6) Acute bilateral deep vein thrombosis (DVT) of upper extremities Qualifiers: Affected thrombotic vein of extremity: brachial Qualified Code(s): I82.623 - Acute embolism and thrombosis of deep veins of upper extremity, bilateral (15) Acute respiratory failure Qualifiers: Respiratory failure complication: hypoxia Qualified Code(s): J96.01 - Acute respiratory failure with hypoxia
[2017-12-19] MEDS: Oral Hygiene Kit OROPHARYNG SCH ×4 (00:15→18:56)
[2017-12-19] MEDS: Insulin NovoLOG Aspart Correctional Sugar Inj SQ SCH ×6 (00:30→20:35)
[2017-12-19] MEDS: Propofol 1000 mg/100 ml Inj 1,000 MG/100 ML BOTTLE IV.CONT PRN ×4 (00:58→23:32)
[2017-12-19] MEDS: fentaNYL 10 mcg/mL Premix Drip 2,500 MCG/250 ML BAG IV.SIG PRN (04:04)
[2017-12-19 04:20] LABS: Hematocrit 21.1 % (39.0-51.0); Hemoglobin 7.4 gm/dL (13.0-17.0); Mean Corpuscular HGB Conc 35.3 % (32.0-36.0); Mean Corpuscular Volume 84.9 fL (80.0-100.0); Mean Platelet Volume 9.3 fL (7.0-11.0); Platelet Count 231 th/mm3 (150-450); Red Blood Count 2.48 mil/mm3 (4.50-5.90)
--- NOTE | 2017-12-19 04:41 | XR ---
EXAM DATE: 12/19/2017 4:12 AM EST AGE/SEX: 47 years / Male INDICATIONS: Shortness of breath. CLINICAL DATA: This is the patient's subsequent encounter. Patient reports that signs and symptoms h ave been present for 2 weeks and indicates a pain score of Nonresponsive. MEDICAL/SURGICAL HISTORY: . Cardiac arrest. . Chest tube, left. Vas cath. Gastrectomy. Dinh en Y esophagojejunostomy. COMPARISON: [facility], CHEST 1V SINGLE AP, 12/17/2017. . FINDINGS: 2 portable AP semierect views of the chest were obtained and again demonstrates an endotracheal tube in place with the tip approximately 2 to 3 cm above the [place]. Nasogastric tube is again seen coursi ng through the esophagus into the stomach. There are bilateral internal jugular central venous lines. There is hazy opacity again noted in the left perihilar region and left lung base which appears incr eased. The right lung is clear. The bony thorax appears intact. There are overlying electrocardiogram leads. CONCLUSION: Interval increase in abnormal opacity in the left perihilar region and left lung base. This may repre sent infiltrate and/or effusion. Electronically signed by: Edwin Grant MD 12/19/2017 4:40 AM EST
[2017-12-19 04:50] LABS: Alanine Aminotransferase 87 U/L (12-78); Albumin 1.5 g/dL (3.4-5.0); Alkaline Phosphatase 123 U/L (45-117); Anion Gap 12 meq/L (5-15); Aspartate Aminotransferase 75 U/L (15-37); Blood Urea Nitrogen 90 mg/dL (7-18); Calcium 7.5 mg/dL (8.5-10.1); Carbon Dioxide 23.4 meq/L (21.0-32.0); Chloride 113 meq/L (98-107); Glomerular Filtration Rate 11 mL/min (>89); Glucose,Random 102 mg/dL (74-106); Magnesium 2.3 mg/dL (1.5-2.5); Phosphorus 6.3 mg/dL (2.5-4.9); Potassium 3.4 meq/L (3.5-5.1); Sodium 148 meq/L (136-145); Total Protein 4.8 g/dL (6.4-8.2)
[2017-12-19] MEDS: Piperacil/Tazo 2.25 GM Premix 50 ML IV.SIG SCH ×3 (05:46→21:04)
[2017-12-19] MEDS: Pantoprazole Inj 80 MG in Sodium Chlor 0.9% Inj 100 ML IV.CONT SCH ×2 (05:49→16:04)
--- NOTE | 2017-12-19 07:47 | P.PNGS ---
Subjective Interval history: Resting in bed Eyes open Following simple commands No acute events overnight Physical Exam Vital signs: Vital Signs 12/18/17 08:00 12/18/17 09:00 12/18/17 09:42 Temperature 99.2 F 99.2 F Pulse Rate 105 H 112 H 112 H Respiratory Rate 23 25 H 25 H Blood Pressure Pulse Oximetry 100 100 100 12/18/17 10:00 12/18/17 10:53 12/18/17 11:00 Temperature Pulse Rate 112 H 118 H Respiratory Rate 44 H 22 46 H Blood Pressure Pulse Oximetry 100 100 100 12/18/17 12:00 12/18/17 13:00 12/18/17 14:00 Temperature 99.3 F Pulse Rate 112 H 116 H 112 H Respiratory Rate 50 H 25 H 27 H Blood Pressure Pulse Oximetry 100 100 100 12/18/17 15:00 12/18/17 15:45 12/18/17 16:00 Temperature Pulse Rate 122 H 121 H Respiratory Rate 25 H 30 H 19 Blood Pressure Pulse Oximetry 100 100 100 12/18/17 16:02 12/18/17 17:00 12/18/17 17:01 Temperature 99.9 F H Pulse Rate 117 H 116 H Respiratory Rate 22 23 Blood Pressure 120/59 L 119/62 119/62 Pulse Oximetry 100 100 12/18/17 18:00 12/18/17 19:00 12/18/17 19:38 Temperature Pulse Rate 114 H 118 H Respiratory Rate 22 23 28 H Blood Pressure 152/75 H Pulse Oximetry 100 100 100 12/18/17 20:00 12/18/17 21:00 12/18/17 22:00 Temperature 99.1 F Pulse Rate 120 H 116 H 111 H Respiratory Rate 30 H 23 22 Blood Pressure 141/69 H 146/73 H 142/67 H Pulse Oximetry 100 100 100 12/18/17 23:00 12/18/17 23:01 12/19/17 00:00 Temperature 99.1 F Pulse Rate 115 H 111 H Respiratory Rate 22 19 Blood Pressure 143/68 H 143/68 H 145/70 H Pulse Oximetry 100 100 12/19/17 01:00 12/19/17 01:06 12/19/17 02:00 Temperature Pulse Rate 111 H 107 H Respiratory Rate 22 19 23 Blood Pressure 140/68 134/71 Pulse Oximetry 100 100 100 12/19/17 03:00 12/19/17 04:00 12/19/17 04:01 Temperature 99.0 F Pulse Rate 108 H 111 H Respiratory Rate 21 22 Blood Pressure 142/67 H 114/56 L 114/56 L Pulse Oximetry 100 100 12/19/17 04:16 12/19/17 04:35 12/19/17 05:00 Temperature Pulse Rate 110 H Respiratory Rate 22 22 23 Blood Pressure 129/57 L Pulse Oximetry 100 100 12/19/17 06:00 Temperature Pulse Rate 108 H Respiratory Rate 23 Blood Pressure 128/58 L Pulse Oximetry 100 Intake & Output 12/18/17 12/19/17 12/19/17 18:59 06:59 18:59 Intake Total 2059 / 2059 1276 / 1276 Output Total 1075 / 1075 550 / 550 Balance 984 / 984 726 / 726 Weight 76.5 kg Intake: IV 550 / 550 700 / 700 Protonix Inj 80 MG In NS Inj 100 / 100 200 / 200 100 ML @ 10 mls/hr IV.CONT Q10H COLE Rx#:[id number] Diprivan 1000 mg/100 ml Inj 1, 100 / 100 200 / 200 000 mg In 100 ml @ 5 MCG/KG/MIN 2.859 mls/hr IV.CONT TITRATE PRN Rx#:[id number] Mycamine Inj 100 MG In NS Inj 100 / 100 100 ML @ 100 mls/hr IV.SIG Q24H COLE Rx#:[id number] Zosyn 2.25 GM Premix 50 ML @ 50 / 50 50 / 50 100 mls/hr IV.SIG Q8H COLE Rx#: [id number] KCl 20 mEq Premix Inj 20 meq In 200 / 200 100 ml @ 50 mls/hr IV.SIG Q2H COLE Rx#:[id number] fentaNYL 10 mcg/mL Premix Drip 250 / 250 2,500 mcg In 250 ml @ 50 MCG/HR 5 mls/hr IV.SIG TITRATE PRN Rx #:[id number] Tube Feeding 459 / 459 516 / 516 Water Bolus Amount 60 / 60 Other 650 / 650 Rbc As-3 Leukoreduced Unit 250 / 250 [id number] Rbc As-3 Leukoreduced Unit 250 / 250 [id number] Intake (Blood Product) Amt 400 / 400 Rbc As-3 Leukoreduced Unit 0 / 0 [id number] Rbc As-3 Leukoreduced Unit 400 / 400 [id number] Output: Urine 0 / 0 0 / 0 Urine/Stool Mix 500 / 500 Gastric Drainage 50 / 50 Right Nare Nasogastric Tube 50 / 50 Wound Drainage 575 / 575 500 / 500 # 2 Right Abdomen 575 / 575 500 / 500 Other: Date of Last Bowel Movement 12/18/17 12/19/17 # Incontinent Bowel Movements 4 Narrative: Alert and awake Abd: soft; mildly distended throughout improved slightly from yesterday; ZAINAB with serous hazy drainage; Midline incision with c/d/i dressing; J tube with TF Continues to have generalized edema---mostly in BUE - Urinary Catheter Management Indwelling Temp Sensing Catheter Cath placed during this visit: no Results - Labs 12/19/17 03:46 12/19/17 03:46 Laboratory Results - last 24 hr 12/04/17 12/16/17 12/18/17 10:46 05:40 07:19 WBC RBC Hgb Hct MCV MCH MCHC RDW Plt Count MPV Sodium Potassium Chloride Carbon Dioxide Anion Gap BUN Creatinine Estimated GFR POC Glucose Random Glucose Calcium Phosphorus Magnesium Total Bilirubin AST ALT Alkaline Phosphatase Total Protein Albumin MTS Gel Crossmatch See Detail See Detail See Detail 12/18/17 12/18/17 12/18/17 09:56 12:25 15:52 WBC RBC Hgb Hct MCV MCH MCHC RDW Plt Count MPV Sodium Potassium Chloride Carbon Dioxide Anion Gap BUN Creatinine Estimated GFR POC Glucose 126 H 136 H Random Glucose Calcium Phosphorus Magnesium Total Bilirubin AST ALT Alkaline Phosphatase Total Protein Albumin MTS Gel Crossmatch See Detail 12/18/17 12/18/17 12/18/17 17:10 17:56 21:37 WBC RBC Hgb Hct MCV MCH MCHC RDW Plt Count MPV Sodium Potassium 3.5 Chloride Carbon Dioxide Anion Gap BUN Creatinine Estimated GFR POC Glucose 136 H 141 H Random Glucose Calcium Phosphorus Magnesium Total Bilirubin AST ALT Alkaline Phosphatase Total Protein Albumin MTS Gel Crossmatch 12/19/17 12/19/17 12/19/17 00:36 03:46 03:46 WBC 21.0 H RBC 2.48 L Hgb 7.4 L Hct 21.1 L MCV 84.9 MCH 30.0 MCHC 35.3 RDW 16.0 Plt Count 231 MPV 9.3 Sodium 148 H Potassium 3.4 L Chloride 113 H Carbon Dioxide 23.4 Anion Gap 12 BUN 90 H Creatinine 6.43 H Estimated GFR 11 L POC Glucose 121 H Random Glucose 102 Calcium 7.5 L Phosphorus 6.3 H D Magnesium 2.3 Total Bilirubin 0.6 AST 75 H ALT 87 H Alkaline Phosphatase 123 H Total Protein 4.8 L Albumin 1.5 L MTS Gel Crossmatch - Imaging Imaging: ITS Impressions Head MRI 12/03/17 00:00 CONCLUSION: 1. Minimal nonspecific periventricular white matter changes. 2. No restricted diffusion to suggest an acute ischemic event. 3. No evidence for significant ischemic changes. Chest CT 12/04/17 00:06 CONCLUSION: 1. Left greater than right pleural effusions and basilar atelectasis. 2. No hemorrhage or hematoma demonstrated. 3. Distended and fluid-filled esophagus. No wall thickening. Patient is status post gastrectomy. Nasogastric tube is at the GE junction. 4. Body wall edema/anasarca. Abdomen X-Ray 12/08/17 00:00 CONCLUSION: 1. 2 left-sided abdominal catheters. 2. Nonspecific bowel gas pattern. Abdomen/Pelvis CT 12/13/17 00:00 CONCLUSION: 1. New proximal small bowel dilatation. No discrete transition point. Contrast is seen in the distal small bowel. Findings may represent ileus or partial obstruction. 2. Postsurgical findings with surgical drains in the left upper quadrant. Free fluid is seen in the left upper quadrant. Loculated rounded 5 cm area of fluid with thin peripheral enhancement also noted just inferior to the surgical drains. 3. Prominent left lower lobe pulmonary consolidation and small left pleural effusion. GI Bleed Scan Nuclear Medicine 12/15/17 00:00 CONCLUSION: No active bleeding demonstrated. Chest X-Ray 12/19/17 06:00 CONCLUSION: Interval increase in abnormal opacity in the left perihilar region and left lung base. This may represent infiltrate and/or effusion. Assessment and Plan - Assessment (1) Gastric perforation Code(s): K25.5 - Chronic or unspecified gastric ulcer with perforation Status : Resolved Plan: 47yo male s/p Exlap and gastrectomy for gastric perforation, s/p esophagojejunostomy at [facility] -Intubated---vent per [facility]; hopefully extubation soon; if not will likely need tracheostomy placement -TF at 50 cc via J tube ---tolerating -Hmg stable today -S/p EGD/colonoscopy and NM bleeding scan negative -Continue to monitor/follow from surgery standpoint -Dialysis per Nephrology - Plan Personally evaluated the patient in room 1313. Patient is intubated mildly sedated this morning. He does open his eyes. He appears slightly less edematous. He has some phlegm in his endotracheal tube which I suctioned out. Is equal bilateral breath sounds. He is mild sinus tachycardia. His wound dressings were just changed. His drain continues to have a small amount of yellow serous drainage. He is tolerating tube feeds. His stool is more brown than maroon today. Plans hopefully for more CPAP today. Consideration for trial of extubation this week. Continue supportive therapy. The exam, history, and the medical decision-making described in the above note were completed with the assistance of the mid-level provider. I reviewed and agree with the findings presented. I attest that I had a [id number] encounter with the patient on the same day, and personally performed and documented my assessment and findings in the medical record.
[2017-12-19] MEDS: Calcium Acetate 667 MG Capsule PO SCH ×3 (08:13→18:56)
[2017-12-19] MEDS: hydrALAZINE 50 MG Tablet PO SCH ×3 (08:13→18:56)
[2017-12-19] MEDS: Heparin 10,000 UNITS/10 ML Vial (for IV use) OTHER PRN (09:25)
--- NOTE | 2017-12-19 11:16 | P.PNNP ---
Subjective Interval history: Patient was seen, no distress. Patient was seen during dialysis, on 4K, blood flow rate of 300 ml/hr, goal of 4 L. Patient's left sided chest tube was removed. Possible extubation this week. <Jocelyn Crews - Last Filed: 12/19/17 11:17> Physical Exam Vital signs: Vital Signs 12/18/17 12:00 12/18/17 13:00 12/18/17 14:00 Temperature 99.3 F Pulse Rate 112 H 116 H 112 H Respiratory Rate 50 H 25 H 27 H Blood Pressure Pulse Oximetry 100 100 100 12/18/17 15:00 12/18/17 15:45 12/18/17 16:00 Temperature Pulse Rate 122 H 121 H Respiratory Rate 25 H 30 H 19 Blood Pressure Pulse Oximetry 100 100 100 12/18/17 16:02 12/18/17 17:00 12/18/17 17:01 Temperature 99.9 F H Pulse Rate 117 H 116 H Respiratory Rate 22 23 Blood Pressure 120/59 L 119/62 119/62 Pulse Oximetry 100 100 12/18/17 18:00 12/18/17 19:00 12/18/17 19:38 Temperature Pulse Rate 114 H 118 H Respiratory Rate 22 23 28 H Blood Pressure 152/75 H Pulse Oximetry 100 100 100 12/18/17 20:00 12/18/17 21:00 12/18/17 22:00 Temperature 99.1 F Pulse Rate 120 H 116 H 111 H Respiratory Rate 30 H 23 22 Blood Pressure 141/69 H 146/73 H 142/67 H Pulse Oximetry 100 100 100 12/18/17 23:00 12/18/17 23:01 12/19/17 00:00 Temperature 99.1 F Pulse Rate 115 H 111 H Respiratory Rate 22 19 Blood Pressure 143/68 H 143/68 H 145/70 H Pulse Oximetry 100 100 12/19/17 01:00 12/19/17 01:06 12/19/17 02:00 Temperature Pulse Rate 111 H 107 H Respiratory Rate 22 19 23 Blood Pressure 140/68 134/71 Pulse Oximetry 100 100 100 12/19/17 03:00 12/19/17 04:00 12/19/17 04:01 Temperature 99.0 F Pulse Rate 108 H 111 H Respiratory Rate 21 22 Blood Pressure 142/67 H 114/56 L 114/56 L Pulse Oximetry 100 100 12/19/17 04:16 12/19/17 04:35 12/19/17 05:00 Temperature Pulse Rate 110 H Respiratory Rate 22 22 23 Blood Pressure 129/57 L Pulse Oximetry 100 100 12/19/17 06:00 12/19/17 08:55 Temperature Pulse Rate 108 H Respiratory Rate 23 21 Blood Pressure 128/58 L Pulse Oximetry 100 100 Intake & Output 12/18/17 12/19/17 12/19/17 18:59 06:59 18:59 Intake Total 2059 / 2059 1276 / 1276 Output Total 1075 / 1075 550 / 550 Balance 984 / 984 726 / 726 Weight 76.5 kg Intake: IV 550 / 550 700 / 700 Protonix Inj 80 MG In NS Inj 100 / 100 200 / 200 100 ML @ 10 mls/hr IV.CONT Q10H COLE Rx#:[id number] Diprivan 1000 mg/100 ml Inj 1, 100 / 100 200 / 200 000 mg In 100 ml @ 5 MCG/KG/MIN 2.859 mls/hr IV.CONT TITRATE PRN Rx#:[id number] Mycamine Inj 100 MG In NS Inj 100 / 100 100 ML @ 100 mls/hr IV.SIG Q24H COLE Rx#:[id number] Zosyn 2.25 GM Premix 50 ML @ 50 / 50 50 / 50 100 mls/hr IV.SIG Q8H COLE Rx#: [id number] KCl 20 mEq Premix Inj 20 meq In 200 / 200 100 ml @ 50 mls/hr IV.SIG Q2H COLE Rx#:[id number] fentaNYL 10 mcg/mL Premix Drip 250 / 250 2,500 mcg In 250 ml @ 50 MCG/HR 5 mls/hr IV.SIG TITRATE PRN Rx #:[id number] Tube Feeding 459 / 459 516 / 516 Water Bolus Amount 60 / 60 Other 650 / 650 Rbc As-3 Leukoreduced Unit 250 / 250 [id number] Rbc As-3 Leukoreduced Unit 250 / 250 [id number] Intake (Blood Product) Amt 400 / 400 Rbc As-3 Leukoreduced Unit 0 / 0 [id number] Rbc As-3 Leukoreduced Unit 400 / 400 [id number] Output: Urine 0 / 0 0 / 0 Urine/Stool Mix 500 / 500 Gastric Drainage 50 / 50 Right Nare Nasogastric Tube 50 / 50 Wound Drainage 575 / 575 500 / 500 # 2 Right Abdomen 575 / 575 500 / 500 Other: Date of Last Bowel Movement 12/18/17 12/19/17 # Incontinent Bowel Movements 4 - Constitutional no acute distress - Routine HEENT Exam Head: Present: normocephalic Eye: Present: PERRL ENT: Present: mucous membranes moist - Routine Neck Exam Present: supple, trachea midline. Absent: tracheal deviation - Routine Respiratory Exam Present: patient mechanically ventilated. Absent: accessory muscle use, respiratory distress - Routine Cardiovascular Exam Present: RRR - Routine Abdominal Exam Present: wound Comments: Patient has abdominal binder on. Yellow serous drainage in ZAINAB drain. - Routine Extremities Exam Present: edema, vascular access Comments: Patient has bilateral upper extremity edema. - Routine Psychiatric Exam Present: unable to assess - Urinary Catheter Management Indwelling Temp Sensing Catheter Cath placed during this visit: no <Jocelyn Crews - Last Filed: 12/19/17 11:17> Vital signs: Vital Signs 12/19/17 20:00 12/19/17 20:10 12/19/17 20:30 Temperature 102.5 F H Pulse Rate 124 H 123 H Respiratory Rate 23 23 21 Blood Pressure 118/59 L 118/59 L Pulse Oximetry 100 100 100 12/19/17 21:00 12/19/17 21:10 12/19/17 22:00 Temperature Pulse Rate 118 H 116 H 113 H Respiratory Rate 22 21 20 Blood Pressure 100/55 L Pulse Oximetry 100 100 100 12/19/17 22:10 12/19/17 23:00 12/19/17 23:10 Temperature Pulse Rate 110 H 113 H 108 H Respiratory Rate 20 21 20 Blood Pressure 101/55 L 117/61 Pulse Oximetry 100 100 100 12/20/17 00:00 12/20/17 00:10 12/20/17 01:00 Temperature Pulse Rate 116 H 111 H 111 H Respiratory Rate 20 19 19 Blood Pressure 109/54 L 110/56 L Pulse Oximetry 100 100 100 12/20/17 01:10 12/20/17 01:12 12/20/17 02:00 Temperature Pulse Rate 115 H 106 H Respiratory Rate 23 18 21 Blood Pressure 110/56 L 113/71 Pulse Oximetry 100 100 100 12/20/17 02:10 12/20/17 03:00 12/20/17 03:10 Temperature Pulse Rate 107 H 108 H 117 H Respiratory Rate 22 23 23 Blood Pressure 113/71 108/58 L Pulse Oximetry 100 100 100 12/20/17 03:40 12/20/17 04:00 12/20/17 04:10 Temperature 100.1 F H Pulse Rate 103 H 103 H Respiratory Rate 19 22 22 Blood Pressure 110/61 116/57 L Pulse Oximetry 100 100 100 12/20/17 05:00 12/20/17 05:10 12/20/17 06:00 Temperature Pulse Rate 101 H 103 H 103 H Respiratory Rate 49 H 46 H 26 H Blood Pressure 105/55 L Pulse Oximetry 100 100 100 12/20/17 06:10 12/20/17 08:00 12/20/17 08:10 Temperature 99.0 F Pulse Rate 95 H 100 H 98 H Respiratory Rate 47 H 34 H 36 H Blood Pressure 110/61 115/58 L Pulse Oximetry 100 100 100 12/20/17 08:20 12/20/17 09:00 12/20/17 09:10 Temperature Pulse Rate 98 H 99 H Respiratory Rate 19 40 H 40 H Blood Pressure 108/56 L Pulse Oximetry 100 100 100 12/20/17 10:00 12/20/17 10:10 12/20/17 11:00 Temperature Pulse Rate 103 H 102 H 104 H Respiratory Rate 41 H 41 H 42 H Blood Pressure 113/59 L Pulse Oximetry 100 100 100 12/20/17 11:10 12/20/17 11:50 12/20/17 12:00 Temperature 100.2 F H Pulse Rate 100 H 101 H Respiratory Rate 40 H 20 41 H Blood Pressure 115/59 L Pulse Oximetry 100 100 100 12/20/17 12:10 12/20/17 13:00 12/20/17 13:10 Temperature Pulse Rate 102 H 101 H 102 H Respiratory Rate 41 H 41 H 41 H Blood Pressure 118/61 124/62 Pulse Oximetry 100 100 100 12/20/17 14:00 12/20/17 14:10 12/20/17 15:00 Temperature Pulse Rate 100 H 97 H 96 H Respiratory Rate 41 H 40 H 39 H Blood Pressure 114/56 L Pulse Oximetry 100 100 100 12/20/17 15:10 12/20/17 16:00 12/20/17 16:03 Temperature 100.4 F H Pulse Rate 97 H 101 H Respiratory Rate 39 H 20 24 Blood Pressure 115/58 L Pulse Oximetry 100 100 100 12/20/17 16:10 12/20/17 17:00 12/20/17 17:10 Temperature Pulse Rate 100 H 103 H 103 H Respiratory Rate 20 20 26 H Blood Pressure 116/56 L 110/58 L Pulse Oximetry 99 100 100 12/20/17 18:00 Temperature Pulse Rate 100 H Respiratory Rate 25 H Blood Pressure Pulse Oximetry 100 Intake & Output 12/20/17 12/20/17 12/21/17 06:59 18:59 06:59 Intake Total 1473 / 1473 788 / 788 Output Total 275 / 275 275 / 275 Balance 1198 / 1198 513 / 513 Weight 73 kg Intake: IV 715 / 715 200 / 200 Protonix Inj 80 MG In NS Inj 100 / 100 100 / 100 100 ML @ 10 mls/hr IV.CONT Q10H COLE Rx#:[id number] Diprivan 1000 mg/100 ml Inj 1, 200 / 200 100 / 100 000 mg In 100 ml @ 5 MCG/KG/MIN 2.859 mls/hr IV.CONT TITRATE PRN Rx#:[id number] Ofirmev Inj 650 mg In 65 ml @ 65 / 65 400 mls/hr IV.SIG Q6H PRN Rx#: [id number] Zosyn 2.25 GM Premix 50 ML @ 100 / 100 100 mls/hr IV.SIG Q8H COLE Rx#: [id number] fentaNYL 10 mcg/mL Premix Drip 250 / 250 2,500 mcg In 250 ml @ 50 MCG/HR 5 mls/hr IV.SIG TITRATE PRN Rx #:[id number] Tube Feeding 758 / 758 498 / 498 Tube Irrigant 90 / 90 Output: Urine 0 / 0 Wound Drainage 275 / 275 275 / 275 # 2 Right Abdomen 275 / 275 275 / 275 Other: Date of Last Bowel Movement 12/20/17 12/20/17 # Bowel Movements 3 2 - Urinary Catheter Management Indwelling Temp Sensing Catheter Cath placed during this visit: no <Filipe Robertson - Last Filed: 12/20/17 19:38> Assessment and Plan - Assessment (1) JACLYN (acute kidney injury) Code(s): N17.9 - Acute kidney failure, unspecified Status: Acute Plan: Anuric renal failure. He has become dialysis dependent. Patient was seen during dialysis, on 4K, blood flow rate of 300 ml/hr, goal of 4 L. Monitor for recovery. Continue supportive care. Avoid nephrotoxic agents. Patient on PhosLo, monitor phosphorus levels intermittently. Today's phosphorus level 6.3. (2) Acute respiratory failure Code(s): J96.00 - Acute respiratory failure, unspecified whether with hypoxia or hypercapnia Status: Acute Qualifiers: Respiratory failure complication: hypoxia Qualified Code(s): J96.01 - Acute respiratory failure with hypoxia Plan: On the ventilator. Patient's left sided chest tube removed. Possible extubation this week. (3) Gastric perforation Code(s): K25.5 - Chronic or unspecified gastric ulcer with perforation Status : Resolved Plan: s/p surgery. Subtotal gastrectomy in [place]. In [facility] he had: Dinh-en-y esophagojejunostomy, feeding jejunostomy placement, diagnostic EGD, primary fascial closure. Date of procedure: 11/28/17 Negative bleeding scan - follow with GI, surgery. No immediate surgical plans at this point (4) Candidemia Code(s): B37.7 - Candidal sepsis Status: Acute Plan: On Micafungin. Dose medications appropriate to renal function. (5) DVT (deep venous thrombosis) Code(s): I82.409 - Acute embolism and thrombosis of unspecified deep veins of unspecified lower extremity Status: Acute Plan: DVT of bilateral upper extremities. (6) Anemia Code(s): D64.9 - Anemia, unspecified Status: Acute Plan: Could be multifactorial. Also could be due to renal failure. 1 unit of PRBC transfused yesterday. Today' s Hgb 7.4. Bleeding scan negative. <Jocelyn Crews - Last Filed: 12/19/17 11:17> - Assessment (1) JACLYN (acute kidney injury) Code(s): N17.9 - Acute kidney failure, unspecified Status: Acute (2) Acute respiratory failure Code(s): J96.00 - Acute respiratory failure, unspecified whether with hypoxia or hypercapnia Status: Acute Qualifiers: Respiratory failure complication: hypoxia Qualified Code(s): J96.01 - Acute respiratory failure with hypoxia (3) Gastric perforation Code(s): K25.5 - Chronic or unspecified gastric ulcer with perforation Status : Resolved (4) Candidemia Code(s): B37.7 - Candidal sepsis Status: Acute (5) DVT (deep venous thrombosis) Code(s): I82.409 - Acute embolism and thrombosis of unspecified deep veins of unspecified lower extremity Status: Acute (6) Anemia Code(s): D64.9 - Anemia, unspecified Status: Acute - Attending Attestation patient was seen and examined on 12/19/17. Agree with above assessment and plan. <Filipe Robertson - Last Filed: 12/20/17 19:38>
[2017-12-19] MEDS: Albumin Human 25% Inj 100 ML IV.SIG PRN (11:48)
[2017-12-19] MEDS: Chlorhexidine 0.12% Oral Kit 15 ML UDC OROPHARYNG SCH ×2 (13:04→20:35)
--- NOTE | 2017-12-19 13:06 | P.PNGI ---
Subjective Interval history: Awake, ventilator management, hemoglobin monitored current 7.4, monitoring for acute GI bleed <Ofelia Fox M - Last Filed: 12/19/17 13:09> Physical Exam Vital signs: Vital Signs 12/18/17 14:00 12/18/17 15:00 12/18/17 15:45 Temperature Pulse Rate 112 H 122 H Respiratory Rate 27 H 25 H 30 H Blood Pressure Pulse Oximetry 100 100 100 12/18/17 16:00 12/18/17 16:02 12/18/17 17:00 Temperature 99.9 F H Pulse Rate 121 H 117 H Respiratory Rate 19 22 Blood Pressure 120/59 L 119/62 Pulse Oximetry 100 100 12/18/17 17:01 12/18/17 18:00 12/18/17 19:00 Temperature Pulse Rate 116 H 114 H 118 H Respiratory Rate 23 22 23 Blood Pressure 119/62 152/75 H Pulse Oximetry 100 100 100 12/18/17 19:38 12/18/17 20:00 12/18/17 21:00 Temperature 99.1 F Pulse Rate 120 H 116 H Respiratory Rate 28 H 30 H 23 Blood Pressure 141/69 H 146/73 H Pulse Oximetry 100 100 100 12/18/17 22:00 12/18/17 23:00 12/18/17 23:01 Temperature Pulse Rate 111 H 115 H Respiratory Rate 22 22 Blood Pressure 142/67 H 143/68 H 143/68 H Pulse Oximetry 100 100 12/19/17 00:00 12/19/17 01:00 12/19/17 01:06 Temperature 99.1 F Pulse Rate 111 H 111 H Respiratory Rate 19 22 19 Blood Pressure 145/70 H 140/68 Pulse Oximetry 100 100 100 12/19/17 02:00 12/19/17 03:00 12/19/17 04:00 Temperature 99.0 F Pulse Rate 107 H 108 H 111 H Respiratory Rate 23 21 22 Blood Pressure 134/71 142/67 H 114/56 L Pulse Oximetry 100 100 100 12/19/17 04:01 12/19/17 04:16 12/19/17 04:35 Temperature Pulse Rate Respiratory Rate 22 22 Blood Pressure 114/56 L Pulse Oximetry 100 12/19/17 05:00 12/19/17 06:00 12/19/17 08:55 Temperature Pulse Rate 110 H 108 H Respiratory Rate 23 23 21 Blood Pressure 129/57 L 128/58 L Pulse Oximetry 100 100 100 12/19/17 12:02 Temperature Pulse Rate Respiratory Rate 24 Blood Pressure Pulse Oximetry 100 Intake & Output 12/18/17 12/19/17 12/19/17 18:59 06:59 18:59 Intake Total 2059 / 2059 1276 / 1276 Output Total 1075 / 1075 550 / 550 2500 / 2500 Balance 984 / 984 726 / 726 -2500 / -2500 Weight 76.5 kg Intake: IV 550 / 550 700 / 700 Protonix Inj 80 MG In NS Inj 100 / 100 200 / 200 100 ML @ 10 mls/hr IV.CONT Q10H COLE Rx#:[id number] Diprivan 1000 mg/100 ml Inj 1, 100 / 100 200 / 200 000 mg In 100 ml @ 5 MCG/KG/MIN 2.859 mls/hr IV.CONT TITRATE PRN Rx#:[id number] Mycamine Inj 100 MG In NS Inj 100 / 100 100 ML @ 100 mls/hr IV.SIG Q24H COLE Rx#:[id number] Zosyn 2.25 GM Premix 50 ML @ 50 / 50 50 / 50 100 mls/hr IV.SIG Q8H COLE Rx#: [id number] KCl 20 mEq Premix Inj 20 meq In 200 / 200 100 ml @ 50 mls/hr IV.SIG Q2H COLE Rx#:[id number] fentaNYL 10 mcg/mL Premix Drip 250 / 250 2,500 mcg In 250 ml @ 50 MCG/HR 5 mls/hr IV.SIG TITRATE PRN Rx #:[id number] Tube Feeding 459 / 459 516 / 516 Water Bolus Amount 60 / 60 Other 650 / 650 Rbc As-3 Leukoreduced Unit 250 / 250 [id number] Rbc As-3 Leukoreduced Unit 250 / 250 [id number] Intake (Blood Product) Amt 400 / 400 Rbc As-3 Leukoreduced Unit 0 / 0 [id number] Rbc As-3 Leukoreduced Unit 400 / 400 [id number] Output: Urine 0 / 0 0 / 0 Urine/Stool Mix 500 / 500 Hemodialysis Amount 2500 / 2500 Gastric Drainage 50 / 50 Right Nare Nasogastric Tube 50 / 50 Wound Drainage 575 / 575 500 / 500 # 2 Right Abdomen 575 / 575 500 / 500 Other: Date of Last Bowel Movement 12/18/17 12/19/17 12/19/17 # Incontinent Bowel Movements 4 - Constitutional moderate distress, average body habitus, thin - Routine HEENT Exam Head: Present: normocephalic ENT: Present: mucous membranes moist (Pale mucous membranes) - Routine Neck Exam Present: supple - Routine Respiratory Exam Present: patient mechanically ventilated (ET tube) - Routine Cardiovascular Exam Present: S1, S2 - Routine Abdominal Exam Present: firm (Open abdominal wound with secure dressing and abdominal binder) - Routine Skin Exam Present: pallor - Routine Neurological Exam Present: alert (Follows with verbal contact) - Urinary Catheter Management Indwelling Temp Sensing Catheter Cath placed during this visit: no <Ofelia Fox - Last Filed: 12/19/17 13:09> Vital signs: Vital Signs 12/18/17 21:00 12/18/17 22:00 12/18/17 23:00 Temperature Pulse Rate 116 H 111 H 115 H Respiratory Rate 23 22 22 Blood Pressure 146/73 H 142/67 H 143/68 H Pulse Oximetry 100 100 100 12/18/17 23:01 12/19/17 00:00 12/19/17 01:00 Temperature 99.1 F Pulse Rate 111 H 111 H Respiratory Rate 19 22 Blood Pressure 143/68 H 145/70 H 140/68 Pulse Oximetry 100 100 12/19/17 01:06 12/19/17 02:00 12/19/17 03:00 Temperature Pulse Rate 107 H 108 H Respiratory Rate 19 23 21 Blood Pressure 134/71 142/67 H Pulse Oximetry 100 100 100 12/19/17 04:00 12/19/17 04:01 12/19/17 04:16 Temperature 99.0 F Pulse Rate 111 H Respiratory Rate 22 22 Blood Pressure 114/56 L 114/56 L Pulse Oximetry 100 100 12/19/17 04:35 12/19/17 05:00 12/19/17 06:00 Temperature Pulse Rate 110 H 108 H Respiratory Rate 22 23 23 Blood Pressure 129/57 L 128/58 L Pulse Oximetry 100 100 12/19/17 08:55 12/19/17 08:59 12/19/17 09:00 Temperature 98.8 F Pulse Rate 109 H 110 H Respiratory Rate 21 23 23 Blood Pressure 127/60 Pulse Oximetry 100 100 100 12/19/17 09:15 12/19/17 09:31 12/19/17 09:46 Temperature Pulse Rate 115 H 114 H 113 H Respiratory Rate 25 H 27 H 25 H Blood Pressure 122/57 L 115/59 L 116/56 L Pulse Oximetry 100 100 100 12/19/17 10:00 12/19/17 10:01 12/19/17 10:16 Temperature Pulse Rate 113 H 114 H 118 H Respiratory Rate 24 24 28 H Blood Pressure 114/58 L 117/59 L Pulse Oximetry 100 100 100 12/19/17 10:31 12/19/17 10:46 12/19/17 11:00 Temperature Pulse Rate 116 H 119 H 120 H Respiratory Rate 25 H 28 H 30 H Blood Pressure 106/55 L 105/58 L Pulse Oximetry 100 100 100 12/19/17 11:01 12/19/17 11:16 12/19/17 11:31 Temperature Pulse Rate 118 H 114 H 111 H Respiratory Rate 28 H 26 H 24 Blood Pressure 106/58 L 94/48 L 88/53 L Pulse Oximetry 100 100 100 12/19/17 11:39 12/19/17 11:46 12/19/17 12:00 Temperature 99.9 F H Pulse Rate 110 H 110 H 111 H Respiratory Rate 27 H 23 22 Blood Pressure 92/54 L 105/55 L Pulse Oximetry 100 100 100 12/19/17 12:01 12/19/17 12:02 12/19/17 12:16 Temperature Pulse Rate 112 H 114 H Respiratory Rate 24 24 25 H Blood Pressure 114/59 L 119/57 L Pulse Oximetry 100 100 100 12/19/17 13:00 12/19/17 13:10 12/19/17 14:00 Temperature Pulse Rate 117 H 113 H 113 H Respiratory Rate 23 21 22 Blood Pressure 111/53 L Pulse Oximetry 100 100 100 12/19/17 14:10 12/19/17 15:00 12/19/17 15:10 Temperature Pulse Rate 113 H 112 H 111 H Respiratory Rate 21 21 22 Blood Pressure 110/56 L 105/54 L Pulse Oximetry 100 100 100 12/19/17 15:18 12/19/17 16:00 12/19/17 16:10 Temperature 100.1 F H Pulse Rate 109 H 112 H Respiratory Rate 23 23 22 Blood Pressure 105/52 L Pulse Oximetry 100 100 100 12/19/17 16:47 12/19/17 17:00 12/19/17 17:10 Temperature Pulse Rate 111 H 113 H Respiratory Rate 21 23 23 Blood Pressure 92/55 L Pulse Oximetry 100 100 100 12/19/17 18:00 Temperature Pulse Rate 115 H Respiratory Rate 26 H Blood Pressure Pulse Oximetry 100 Intake & Output 12/19/17 12/19/17 12/20/17 06:59 18:59 06:59 Intake Total 1326 / 1326 828 / 828 Output Total 550 / 550 2875 / 2875 Balance 776 / 776 -2047 / -2047 Weight 76.5 kg Intake: IV 750 / 750 200 / 200 Protonix Inj 80 MG In NS Inj 200 / 200 100 / 100 100 ML @ 10 mls/hr IV.CONT Q10H COLE Rx#:[id number] Diprivan 1000 mg/100 ml Inj 1, 200 / 200 100 / 100 000 mg In 100 ml @ 5 MCG/KG/MIN 2.859 mls/hr IV.CONT TITRATE PRN Rx#:[id number] Zosyn 2.25 GM Premix 50 ML @ 100 / 100 100 mls/hr IV.SIG Q8H COLE Rx#: [id number] fentaNYL 10 mcg/mL Premix Drip 250 / 250 2,500 mcg In 250 ml @ 50 MCG/HR 5 mls/hr IV.SIG TITRATE PRN Rx #:[id number] Tube Feeding 516 / 516 568 / 568 Tube Irrigant 60 / 60 Water Bolus Amount 60 / 60 Output: Urine 0 / 0 0 / 0 Hemodialysis Amount 2500 / 2500 Gastric Drainage 50 / 50 Right Nare Nasogastric Tube 50 / 50 Wound Drainage 500 / 500 375 / 375 # 2 Right Abdomen 500 / 500 375 / 375 Other: Date of Last Bowel Movement 12/19/17 12/19/17 # Bowel Movements 1 - Urinary Catheter Management Indwelling Temp Sensing Catheter Cath placed during this visit: no <Christopher Brannon - Last Filed: 12/19/17 20:30> Results - Labs CBC & Chem 7: 12/19/17 03:46 12/19/17 03:46 Laboratory Results - last 24 hr 12/04/17 12/16/17 12/18/17 10:46 05:40 07:19 WBC RBC Hgb Hct MCV MCH MCHC RDW Plt Count MPV Sodium Potassium Chloride Carbon Dioxide Anion Gap BUN Creatinine Estimated GFR POC Glucose Random Glucose Calcium Phosphorus Magnesium Total Bilirubin AST ALT Alkaline Phosphatase Total Protein Albumin MTS Gel Crossmatch See Detail See Detail See Detail 12/18/17 12/18/17 12/18/17 15:52 17:10 17:56 WBC RBC Hgb Hct MCV MCH MCHC RDW Plt Count MPV Sodium Potassium 3.5 Chloride Carbon Dioxide Anion Gap BUN Creatinine Estimated GFR POC Glucose 136 H Random Glucose Calcium Phosphorus Magnesium Total Bilirubin AST ALT Alkaline Phosphatase Total Protein Albumin MTS Gel Crossmatch See Detail 12/18/17 12/19/17 12/19/17 21:37 00:36 03:46 WBC 21.0 H RBC 2.48 L Hgb 7.4 L Hct 21.1 L MCV 84.9 MCH 30.0 MCHC 35.3 RDW 16.0 Plt Count 231 MPV 9.3 Sodium Potassium Chloride Carbon Dioxide Anion Gap BUN Creatinine Estimated GFR POC Glucose 141 H 121 H Random Glucose Calcium Phosphorus Magnesium Total Bilirubin AST ALT Alkaline Phosphatase Total Protein Albumin MTS Gel Crossmatch 12/19/17 12/19/17 03:46 08:26 WBC RBC Hgb Hct MCV MCH MCHC RDW Plt Count MPV Sodium 148 H Potassium 3.4 L Chloride 113 H Carbon Dioxide 23.4 Anion Gap 12 BUN 90 H Creatinine 6.43 H Estimated GFR 11 L POC Glucose 147 H Random Glucose 102 Calcium 7.5 L Phosphorus 6.3 H D Magnesium 2.3 Total Bilirubin 0.6 AST 75 H ALT 87 H Alkaline Phosphatase 123 H Total Protein 4.8 L Albumin 1.5 L MTS Gel Crossmatch - Imaging Impressions Chest X-Ray 12/19/17 06:00 CONCLUSION: Interval increase in abnormal opacity in the left perihilar region and left lung base. This may represent infiltrate and/or effusion. <Ofelia Fox - Last Filed: 12/19/17 13:09> - Labs CBC & Chem 7: 12/19/17 03:46 12/19/17 03:46 Laboratory Results - last 24 hr 12/18/17 12/19/17 12/19/17 21:37 00:36 03:46 WBC 21.0 H RBC 2.48 L Hgb 7.4 L Hct 21.1 L MCV 84.9 MCH 30.0 MCHC 35.3 RDW 16.0 Plt Count 231 MPV 9.3 Sodium Potassium Chloride Carbon Dioxide Anion Gap BUN Creatinine Estimated GFR POC Glucose 141 H 121 H Random Glucose Calcium Phosphorus Magnesium Total Bilirubin AST ALT Alkaline Phosphatase Total Protein Albumin 12/19/17 12/19/17 12/19/17 03:46 08:26 13:36 WBC RBC Hgb Hct MCV MCH MCHC RDW Plt Count MPV Sodium 148 H Potassium 3.4 L Chloride 113 H Carbon Dioxide 23.4 Anion Gap 12 BUN 90 H Creatinine 6.43 H Estimated GFR 11 L POC Glucose 147 H 136 H Random Glucose 102 Calcium 7.5 L Phosphorus 6.3 H D Magnesium 2.3 Total Bilirubin 0.6 AST 75 H ALT 87 H Alkaline Phosphatase 123 H Total Protein 4.8 L Albumin 1.5 L - Imaging Impressions Chest X-Ray 12/19/17 06:00 CONCLUSION: Interval increase in abnormal opacity in the left perihilar region and left lung base. This may represent infiltrate and/or effusion. 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 Consult for possible lower GI bleeding- pt noted to have maroon colored stool Enteroscopy (12/11) S/P total gastrectomy, esophagojejunal anastomosis normal, some old blood, no fresh blood, no blood seen in jejunum NM bleeding scan (12/11) Negative CT abdomen/pelvis WO IV contrast (12/12) Postoperative abdomen appearance 12/18/2017 Ventilator weaning in progress WBC 19.8 hemoglobin 7.3 hematocrit 20.7. Blood pressure stable One abdominal drain removed. Tube feeding Nepro at 50 mL's per hour infusing Rectal tube in place-moderate amount of dark brown drainage 12/19/2017 labs reviewed current hemoglobin 7.4 WBC count 21. Patient remains in the intensive care with ventilator management with cautious slow weaning, soft bowel sounds noted in the lower abdominal quadrants patient is awake. Appreciate general surgery input questionable new SBO. 12/19/2017, hemoglobin being monitored without any acute changes currently 7.4 and WBC count lessening with 21,000 does have lower abdominal bowel sounds. Followed per [facility] for medical management. No acute changes noted in the past 24 hours. Gastroenterology available as needed Plan Diet, tube feeds tolerating at 50 cc an hour Continues with rectal tube and monitoring for any obvious bleeding PPI drip Monitor labs with special attention hemoglobin and transfuse as needed Supportive care This patient has been seen by myself and Dr. Brannon and this note is written on his behalf <Ofelia Fox - Last Filed: 12/19/17 13:09> (1) Anemia Status: Acute Code(s): D64.9 - Anemia, unspecified - Plan Agree with above note and plan, hemoglobin stable, we will follow-up as needed <Christopher Brannon - Last Filed: 12/19/17 20:30>
--- NOTE | 2017-12-19 13:56 | P.PNCC ---
Subjective Subjective Remarks/Hospital Course: Patient was recently admitted to [facility] 11/22 and transferred to [facility] 11/26/17 after the following hospital course: 47-year-old -[place] male with reportedly no past medical or past surgical history who was admitted to hospitalist service 11/22/17 after presenting with abdominal pain, nausea, vomiting. He had CT abd/pelvis with massive gastric distention. NG tube had been placed. I was called to patient's bedside for CODE BLUE PEA arrest. CPR was ongoing and patient had massive abdominal distension and gastric regurgitant in the airway. He was emergently intubated and large amount of gastric secretions suctioned from oropharynx. After 21 minutes of CPR, ROSC was obtained and he was profoundly hypotensive. Continued aggressive fluid resuscitation and initiated dopamine. He was transferred to [facility] where CVL and R radial art line were placed and he was given 7 L of crystalloid and albumin. CXR demonstrated pneumoperitoneum and Dr. Martin Gudino was called emergently and he immediately contacted OR for emergent ex lap. He had intraabdominal hypertension with IAP of 40 mmHg, though fortunately was able to be ventilated adequately after rocuronium 50 mg IV and was transferred to OR. Dr. Martin Gudino took to the operating room early in the morning on 11/23 and discovered tension pneumoperitoneum, massive gastric distension, ischemia of the proximal 2/3 of the stomach and large gastric perforation with massive intraperitoneal contamination with food particles. Dr. Isaacs placed 2 NGT and decompressed 2 L of succus. Patient had initial improvement in vital signs in the immediate postoperative period, however he subsequently became hypotensive requiring upward titration of levophed and addition of vasopressin and stress dose hydrocortisone. He remains on levophed 10 mcg/min, neosynephrine 80 mcg/ min, vasopressin 0.04 units/min with overall vasopressor requirement weaning overnight. He is oliguric and creatinine is continuing to climb. He was given 2 L of crystalloid and albumin overnight. He does have significant fluid losses with combination of abdominal dressing and NGT output, so I will give an additional L of crystalloid now to monitor hourly response as he certainly does not appear volume overloaded. Nonetheless Flotrac numbers are suggesting adequate volume status and we may be seeing the consequence of ischemic ATN. May ultimately require HD, however not at this time. Abdomen remains open and plan is to re-explore 11/25. 11/25: Patient has acceptable hemodynamics by Flotrac but remains septic with requirements for phenylephrine 200 mics per minute, Levophed 8 mics per minute and vasopressin 0.04 units/min for blood pressure support. This has improved overnight and the Bhavesh-Synephrine support has been weaned off completely. Acid base balance is acceptable. ATN has developed which will undoubtedly require hemodialysis. Potassium level is normal. He is at increased risk for an anesthetic now but there is an urgent need to check for residual gastric necrosis. 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 Since the source control surgery, the maintenance of normal acid-base balance has been less difficult. Patient remains anuric with a rising creatinine above 6.0. He is clearly ahead on volume and will benefit from dialysis. A 2 lumen hemodialysis catheter was placed on 11/25 and has been packed with dilute heparin solution. The right internal jugular central line is been in place for 4 days and accessed multiple times. The femoral art line has been in for 4 days. Shock liver was apparent after the cardiac arrest reflecting a transaminitis, elevated bilirubin, and prolonged INR. The INR has remained normal following the transfusion of 4 units of fresh frozen plasma prior to surgery yesterday. A 10% dextrose infusion continues because of ongoing problems with hypoglycemia. Thrombocytopenia at 37,000 persists. He has remained on antibiotic coverage with Pipracil/tazobactam and fungal coverage with fluconazole, all adjusted for renal failure. Present vasopressor requirements include levophed at 7 mics per minute and vasopressin at 0.04 units/min. The chest x-ray is consistent with minor aspiration at the time of his preoperative cardiac arrest on the floor and cultures have subsequently grown Klebsiella, pansensitive. The operative note will clarify the extent of the surgery but in essence the distal esophagus is stapled off and marked with 2 Prolene sutures. The antrum of the stomach is oversewn. Most of the stomach has been removed. The abdomen is open with a VAC dressing applied. Subjective: 11/29: Bowel was in discontinuity following subtotal gastrectomy and patient was transferred to [facility]. On reexploration 11/28 he underwent Dinh-en-y esophagojejunostomy, feeding jejunostomy placement, diagnostic EGD, primary fascial closure. Wound vac was applied to abdomen (though currently wet to dry dressing in place upon arrival). He was reportedly found to have candidemia and was started on micafungin and has undergone ophtho eval. Lines including CVL, Vascath and art line have all been changed at [facility] (though not clear when). He remains on mechanical ventilation and has been weaned off pressors. He was found to have BUE DVTs and is on heparin drip. He is on TPN and has been started on trickle tube feeds with Nepro via jejunostomy. NGT is to [facility]. He underwent HD postoperatively on 11/28. He has now been transferred back to [facility] for ongoing management. I have updated his father and stepmother. 11/30: Patient re-admitted s/p transfer from [facility] overnight, otherwise no acute issues. Scheduled to undergo HD today. 12/01: T-max 101.7, leukocytosis to 27,000 with bandemia. Now 3 days following Dinh-en-Y reconstruction of GI tract following sub-total gastrectomy for gastric necrosis. All new lines placed after diagnosis of candidemia. TPN infusing, jejunostomy at trickle flow and can be increased slowly per general surgery. 12/02: Marked leukocytosis with bandemia persists. Afebrile over last 24 hours. Leave NG tube across the esophageal anastomosis and surgical service will direct timing of contrast study about 7 days following surgery. Continue with spontaneous breathing trials. 12/03: extubated yesterday. since then, has not followed commands, and does not talk. appears to have clinically an aphasia, although his uremia or severe hypoactive delirium could present this way. purposeful movements. will obtain MRI to rule out acute ischemia, as this appears to be a new mental status change (11/29 /[facility] notes state interactive on ventilator). 12/04: reintubated overnight: more output from ZAINAB drains. hgb dropped to 7 this AM: receiving 1 unit prbc. MRI negative for acute change. EEG ordered today to rule out subclinical status epilepticus. also concern overnight for aspiration event. 12/05: T-max 99. WBC 24,000. Reintubated yesterday for respiratory failure probably related to aspiration. Trickle feeding continues through jejunostomy. Nasogastric tube is through the anastomosis and is to low intermittent. 12/06: Afebrile. WBC 26,000. Bandemia has largely resolved. There are bilateral pleural effusions which may need to be tapped to rule out infection or leak. Both lower lobes are consolidated on CAT scan, probably representing compressive atelectasis from the effusions. 12/07: White count remains elevated at 25,000. Total parenteral nutrition infusing and tolerated. Altered mental status persists, possibly related to the cardiac arrest on the floor prior to transfer to the ICU. 12/08: Tolerating total parenteral nutrition with good glucose control. Leukocytosis persists. Fluid tap from left chest bit cloudy, cultures pending. Maintaining adequate gas exchange on lower levels of fractional inspired oxygen. Aim for extubation trial again soon. 12/09: Patient considerably less edematous over the past several days following successful dialysis runs. Continually fails attempts at weaning parameters and desaturation. Left chest drainage is no growth by culture. White blood cell count remains elevated. 12/10: Remains intubated. WBC count elevated but stable. Left chest tube with 260 mL output in 24 hours. BUN/creatinine remains elevated 12/11: Remains intubated sedated hemoglobin dropped to 5.8 today. RN has noted lower GI bleed. Protonix IV every 12 started and GI consulted. Transfuse 2 units PRBC. Keep n.p.o. discussed with Dr. Wellington 12/12: Patient remains intubated sedated for vent synchrony. Hemoglobin stable 7.5. Endoscopy negative yesterday CT abdomen pelvis no active bleeding. Hemodynamically remained stable. Receiving hemodialysis at this time. Left chest tube with high output 450 mL in 24 hours. Attempt weaning trials starting today 12/13: Patient continues to lose blood. Hemoglobin 5.5. Plan to get colonoscopy today. Continues to have melanotic stools. The night RN aspirated blood from jejunostomy tube. Enteroscopy yesterday was unremarkable. Transfusing 3 units of PRBC repeat hemoglobin at 2 PM. No significant bloody output from ZAINAB drains. Will discuss with general surgery 12/14: Remains intubated sedated hemoglobin 7.9 today 1 unit PRBC ordered. Can melanotic stools or NG tube coffee-ground today. EGD yesterday showed friable mucosa at the esophageal anastomotic junction which was injected by GI. Otherwise endoscopies including colonoscopies unremarkable. Hemodynamically remained stable. Discussed extensively with GI and general surgery yesterday 12/15: Patient continues to have significant melanotic stools. Hemoglobin dropped to 7.8 and patient received 1 unit PRBC follow-up hemoglobin only 7.9. Additional 1 unit PRBC ordered. Status post EGD colonoscopy-essentially unremarkable except irritation at the esophageal anastomotic site. Bleeding is most likely small intestinal 12/16: Critically ill but slightly more stable today no obvious melanotic stools. According to the bedside RN when the tube feeds were disconnected there was some bleeding from the jejunostomy tube. Hemoglobin remained stable 7.8. Discussed with Dr. Wellington general surgeon, and his opinion bleeding likely from mucosal sloughing. Initiate spontaneous breathing trials 12/17: Remains critical hemoglobin dropped to 5.4 getting 3 units of PRBC. Extensive workup including EGD colonoscopy and bleeding scans x2 have been negative for active bleed. This seems to be most likely small intestinal bleed from mucosal bleed. Also it was not that the ZAINAB drain has color similar to tube feeds. I discussed with Dr. Wellington he will evaluate the patient afternoon. If there is suspicions will get CT scan after contrast through the J -tube 12/18: More awake alert follows commands weakly. No obvious bleeding hemoglobin 7.3. Will transfuse 1 unit PRBC. 12/19: Gastrointestinal bleeding appears to have stopped. Hemoglobin now stable. Tube feeds infusing. No more transfusions necessary. Objective Vital Signs / I&O: Vital Signs 12/18/17 14:00 12/18/17 15:00 12/18/17 15:45 Temperature Pulse Rate 112 H 122 H Respiratory Rate 27 H 25 H 30 H Blood Pressure Pulse Oximetry 100 100 100 12/18/17 16:00 12/18/17 16:02 12/18/17 17:00 Temperature 99.9 F H Pulse Rate 121 H 117 H Respiratory Rate 19 22 Blood Pressure 120/59 L 119/62 Pulse Oximetry 100 100 12/18/17 17:01 12/18/17 18:00 12/18/17 19:00 Temperature Pulse Rate 116 H 114 H 118 H Respiratory Rate 23 22 23 Blood Pressure 119/62 152/75 H Pulse Oximetry 100 100 100 12/18/17 19:38 12/18/17 20:00 12/18/17 21:00 Temperature 99.1 F Pulse Rate 120 H 116 H Respiratory Rate 28 H 30 H 23 Blood Pressure 141/69 H 146/73 H Pulse Oximetry 100 100 100 12/18/17 22:00 12/18/17 23:00 12/18/17 23:01 Temperature Pulse Rate 111 H 115 H Respiratory Rate 22 22 Blood Pressure 142/67 H 143/68 H 143/68 H Pulse Oximetry 100 100 12/19/17 00:00 12/19/17 01:00 12/19/17 01:06 Temperature 99.1 F Pulse Rate 111 H 111 H Respiratory Rate 19 22 19 Blood Pressure 145/70 H 140/68 Pulse Oximetry 100 100 100 12/19/17 02:00 12/19/17 03:00 12/19/17 04:00 Temperature 99.0 F Pulse Rate 107 H 108 H 111 H Respiratory Rate 23 21 22 Blood Pressure 134/71 142/67 H 114/56 L Pulse Oximetry 100 100 100 12/19/17 04:01 12/19/17 04:16 12/19/17 04:35 Temperature Pulse Rate Respiratory Rate 22 22 Blood Pressure 114/56 L Pulse Oximetry 100 12/19/17 05:00 12/19/17 06:00 12/19/17 08:55 Temperature Pulse Rate 110 H 108 H Respiratory Rate 23 23 21 Blood Pressure 129/57 L 128/58 L Pulse Oximetry 100 100 100 12/19/17 12:02 Temperature Pulse Rate Respiratory Rate 24 Blood Pressure Pulse Oximetry 100 Intake & Output 12/18/17 12/19/17 12/19/17 18:59 06:59 18:59 Intake Total 2059 / 2059 1326 / 1326 Output Total 1075 / 1075 550 / 550 2500 / 2500 Balance 984 / 984 776 / 776 -2500 / -2500 Weight 76.5 kg Intake: IV 550 / 550 750 / 750 Protonix Inj 80 MG In NS Inj 100 / 100 200 / 200 100 ML @ 10 mls/hr IV.CONT Q10H [facility] Rx#:[id number] Diprivan 1000 mg/100 ml Inj 1, 100 / 100 200 / 200 000 mg In 100 ml @ 5 MCG/KG/MIN 2.859 mls/hr IV.CONT TITRATE PRN Rx#:[id number] Mycamine Inj 100 MG In NS Inj 100 / 100 100 ML @ 100 mls/hr IV.SIG Q24H [facility] Rx#:[id number] Zosyn 2.25 GM Premix 50 ML @ 50 / 50 100 / 100 100 mls/hr IV.SIG Q8H [facility] Rx#: [id number] KCl 20 mEq Premix Inj 20 meq In 200 / 200 100 ml @ 50 mls/hr IV.SIG Q2H [facility] Rx#:[id number] fentaNYL 10 mcg/mL Premix Drip 250 / 250 2,500 mcg In 250 ml @ 50 MCG/HR 5 mls/hr IV.SIG TITRATE PRN Rx #:[id number] Tube Feeding 459 / 459 516 / 516 Water Bolus Amount 60 / 60 Other 650 / 650 Rbc As-3 Leukoreduced Unit 250 / 250 [id number] Rbc As-3 Leukoreduced Unit 250 / 250 [id number] Intake (Blood Product) Amt 400 / 400 Rbc As-3 Leukoreduced Unit 0 / 0 [id number] Rbc As-3 Leukoreduced Unit 400 / 400 [id number] Output: Urine 0 / 0 0 / 0 Urine/Stool Mix 500 / 500 Hemodialysis Amount 2500 / 2500 Gastric Drainage 50 / 50 Right Nare Nasogastric Tube 50 / 50 Wound Drainage 575 / 575 500 / 500 # 2 Right Abdomen 575 / 575 500 / 500 Other: Date of Last Bowel Movement 12/18/17 12/19/17 12/19/17 # Incontinent Bowel Movements 4 Result Diagrams: 12/19/17 03:46 12/19/17 03:46 Objective Remarks: GEN: Chronically ill-appearing, on awake alert on propofol and fentanyl HEENT: NCAT, pupils 3 mm and reactive bilaterally. Pale NECK: RIJ vasc-cath and LIJ TLC present, clean/ dry/ intact CARDIO: NSR, normal S1, S2, regular rhythm, no JVD PULM: On PRVC mode ventilation. Scattered rhonchi persist, decreased breath sounds both bases. L pigtail in place, 30 ml in 24 hours GI: Midline surgical bandages clean/dry/ intact. ZAINAB #1 is anterior to esophagojejunostomy anastomosis, ZAINAB #2 posterior, both with serosanguineous drainage. Abdomen soft. Bowel sounds present. SKIN: No rashes or lesions, dry NEURO: More awake again today, tracking and following commands. Moves 4 limbs spontaneously. Assessment and Plan - Problem List (1) Gastric perforation Code(s): K25.5 - Chronic or unspecified gastric ulcer with perforation Status : Resolved (2) Status post total gastrectomy and Dinh-en-Y esophagojejunal anastomosis Code(s): Z90.3 - Acquired absence of stomach [part of]; Z98.0 - Intestinal bypass and anastomosis status Status: Acute (3) Ischemic hepatitis Code(s): K75.9 - Inflammatory liver disease, unspecified Status: Acute (4) Gastric necrosis Code(s): K31.89 - Other diseases of stomach and duodenum Status: Resolved (5) Thrombocytopenia Code(s): D69.6 - Thrombocytopenia, unspecified Status: Acute (6) Acute bilateral deep vein thrombosis (DVT) of upper extremities Code(s): I82.623 - Acute embolism and thrombosis of deep veins of upper extremity, bilateral Status: Acute (7) Anemia Code(s): D64.9 - Anemia, unspecified Status: Acute (8) Leukocytosis Code(s): D72.829 - Elevated white blood cell count, unspecified Status: Acute (9) Candidemia Code(s): B37.7 - Candidal sepsis Status: Acute (10) On total parenteral nutrition (TPN) Code(s): Z78.9 - Other specified health status Status: Acute (11) Hx of cardiac arrest Code(s): Z86.74 - Personal history of sudden cardiac arrest Status: Resolved (12) Acute hemodialysis patient Code(s): Z99.2 - Dependence on renal dialysis Status: Acute (13) JACLYN (acute kidney injury) Code(s): N17.9 - Acute kidney failure, unspecified Status: Acute (14) Aspiration pneumonia Code(s): J69.0 - Pneumonitis due to inhalation of food and vomit Status: Acute (15) Acute respiratory failure Code(s): J96.00 - Acute respiratory failure, unspecified whether with hypoxia or hypercapnia Status: Acute - Assessment and Plan Plan: NEURO: Metabolic encephalopathy On Fentanyl/propofol drips for sedation, pain control. Improving neuro exam, continue daily sedation vacation Following commands x4 RESP: Acute respiratory failure Left pleural effusion PRVC, Ventilator Bundle Spontaneous breathing trials as tolerated-failed today Scheduled and as needed breathing treatments Left pigtail chest tube to waterseal-remove today CV: Cardiac arrest 11/23/17 (PEA arrest due to shock secondary to acute gastric perf and tension pneumoperitoneum) Septic shock, resolved Now off pressors. Hemodynamic monitoring Use as needed medication for hypertension Fluid removal with hemodialysis GI: s/p anterior gastric perforation with tension pneumoperitoneum status post ex lap with primary repair with stapler 11/23 On second look 11/25 he was found to have gastric necrosis requiring subtotal gastrectomy and placement of AB Thera VAC dressing. The bowel was in discontinuity and he was transferred to [facility]. On 11/28 he underwent reexploration with Dinh-en-y esophagojejunostomy, feeding jejunostomy placement, diagnostic EGD, primary fascial closure. Gastric necrosis , Ischemic hepatopathy GIB with blood loss anemia NGT to LIWS, leave above esophageal anastomosis to avoid irritation Bleeding appears to be small bowel mucosal bleeding at this point discussed with Dr. Wellington Has feeding jejunostomy and tube feeds with Nepro resumed EGD, enteroscopy 12/12/2017 unremarkable, colonoscopy 12/13/2017 unremarkable. Bleeding scan did not show any particular site of bleeding ZAINAB drains in place #1 anterior to anastomosis, #2 posterior to the anastomosis. Management per general surgery. Continue TPN renal formula 35 mL/hr. Intermittent lipids daily. Wean TPN while advancing tube feeds Had right upper quadrant ultrasound on 11/27/17 that demonstrated contracted gallbladder with sludge. No evidence of cholecystitis. Echogenicity in right liver related to focal fatty change or altered perfusion, patent vascularity. Protonix GTT FEN/RENAL: JACLYN secondary to ischemic ATN HD as started 11/26 at [place]. Has R IJ Vascath. Monitor I/O and electrolytes. Nephrology following Continue scheduled dialysis ID: Gastric perforation with large amount particulate peritoneal contamination 11/23 Acute Aspiration pneumonia Candidemia (C Gl[place]rata 11/26 at culture) Continue Zosyn/micafungin. ID following Dr. Millan Patient evaluated by ophthalmology prior to transfer. Do not see an ophthalmology note in the transfer documentation, requested document. Requested culture data from [facility]. Follow-up cultures here Sputum culture 11/24 with pansensitive Klebsiella pneumonia HEME: Anemia requiring transfusion Thrombocytopenia-resolved Bilateral upper extremity DVTs Transfuse 3 units PRBC 12/13, transfuse 1 unit PRBC 12/14/2017, 2U 12/15. GI workup as above. 2U PRBC 12/18/17 U/s 11/26 BUE - thrombus R axillary, brachial and basilic veins and thrombus in left axillary and left brachial veins. U/s bilateral lower extremities 11/26 at [facility] negative from common femoral to popliteal vein levels. Arrived on heparin drip, due to GI bleed and anemia all anticoagulation is being held Hematology consult was obtained at [facility] and recommended heparin drip and transfuse prn for platelets <50k. ENDO: Monitor Glucose q4 hours and use low dose insulin sliding scale as indicated. PROPH: s/q heparin held due to blood loss anemia, GIB. Protonix for stress ulcer prophylaxis. DVT prophylaxis. ACCESS: R IJ vascath , L IJ CVL. All existing lines were replaced at [facility]. Left IJ line accidentally was dislodged 12/23/2017, new left IJ line placed FULL CODE Overall impression: Multiple ongoing medical problems. Was critical with continued GI bleed and anemia requiring transfusion. Most likely small intestinal mucosal bleeding. Now he appears to have stopped as of today. We will continue to proceed with attempts to place him and an LTAC (6) Acute bilateral deep vein thrombosis (DVT) of upper extremities Qualifiers: Affected thrombotic vein of extremity: brachial Qualified Code(s): I82.623 - Acute embolism and thrombosis of deep veins of upper extremity, bilateral (15) Acute respiratory failure Qualifiers: Respiratory failure complication: hypoxia Qualified Code(s): J96.01 - Acute respiratory failure with hypoxia
[2017-12-20] MEDS: Insulin NovoLOG Aspart Correctional Sugar Inj SQ SCH ×5 (01:06→23:08)
[2017-12-20] MEDS: Oral Hygiene Kit OROPHARYNG SCH ×3 (01:07→12:45)
[2017-12-20] MEDS: fentaNYL 10 mcg/mL Premix Drip 2,500 MCG/250 ML BAG IV.SIG PRN ×2 (02:32→22:43)
[2017-12-20] MEDS: Acetaminophen Inj 650 MG/65 ML VIAL IV.SIG PRN (02:37)
[2017-12-20] MEDS: Pantoprazole Inj 80 MG in Sodium Chlor 0.9% Inj 100 ML IV.CONT SCH ×3 (02:52→21:19)
[2017-12-20 05:39] LABS: Hematocrit 17.9 % (39.0-51.0); Mean Corpuscular HGB Conc 33.5 % (32.0-36.0); Mean Corpuscular Hemoglobin 29.3 pg (27.0-34.0); Mean Corpuscular Volume 87.6 fL (80.0-100.0); Mean Platelet Volume 9.4 fL (7.0-11.0); Platelet Count 263 th/mm3 (150-450); Red Blood Count 2.04 mil/mm3 (4.50-5.90); Red Cell Distribution Width 15.9 % (11.6-17.2); White Blood Count 21.7 th/mm3 (4.0-11.0)
[2017-12-20] MEDS: Piperacil/Tazo 2.25 GM Premix 50 ML IV.SIG SCH ×3 (06:08→21:20)
[2017-12-20] MEDS: Propofol 1000 mg/100 ml Inj 1,000 MG/100 ML BOTTLE IV.CONT PRN ×2 (06:09→13:58)
[2017-12-20 06:32] LABS: Alanine Aminotransferase 86 U/L (12-78); Albumin 1.8 g/dL (3.4-5.0); Alkaline Phosphatase 126 U/L (45-117); Anion Gap 12 meq/L (5-15); Aspartate Aminotransferase 79 U/L (15-37); Blood Urea Nitrogen 64 mg/dL (7-18); Calcium 7.5 mg/dL (8.5-10.1); Carbon Dioxide 25.9 meq/L (21.0-32.0); Chloride 108 meq/L (98-107); Glomerular Filtration Rate 14 mL/min (>89); Glucose,Random 111 mg/dL (74-106); Magnesium 2.2 mg/dL (1.5-2.5); Phosphorus 3.7 mg/dL (2.5-4.9); Sodium 146 meq/L (136-145)
[2017-12-20] MEDS: Calcium Acetate 667 MG Capsule PO SCH ×2 (08:38→12:42)
[2017-12-20] MEDS: hydrALAZINE 50 MG Tablet PO SCH ×2 (09:00→12:44)
--- NOTE | 2017-12-20 10:56 | P.PNGS ---
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 Patient awake---answering yes and no questions Physical Exam Vital signs: Vital Signs 12/19/17 11:00 12/19/17 11:01 12/19/17 11:16 Temperature Pulse Rate 120 H 118 H 114 H Respiratory Rate 30 H 28 H 26 H Blood Pressure 106/58 L 94/48 L Pulse Oximetry 100 100 100 12/19/17 11:31 12/19/17 11:39 12/19/17 11:46 Temperature Pulse Rate 111 H 110 H 110 H Respiratory Rate 24 27 H 23 Blood Pressure 88/53 L 92/54 L 105/55 L Pulse Oximetry 100 100 100 12/19/17 12:00 12/19/17 12:01 12/19/17 12:02 Temperature 99.9 F H Pulse Rate 111 H 112 H Respiratory Rate 22 24 24 Blood Pressure 114/59 L Pulse Oximetry 100 100 100 12/19/17 12:16 12/19/17 13:00 12/19/17 13:10 Temperature Pulse Rate 114 H 117 H 113 H Respiratory Rate 25 H 23 21 Blood Pressure 119/57 L 111/53 L Pulse Oximetry 100 100 100 12/19/17 14:00 12/19/17 14:10 12/19/17 15:00 Temperature Pulse Rate 113 H 113 H 112 H Respiratory Rate 22 21 21 Blood Pressure 110/56 L Pulse Oximetry 100 100 100 12/19/17 15:10 12/19/17 15:18 12/19/17 16:00 Temperature 100.1 F H Pulse Rate 111 H 109 H Respiratory Rate 22 23 23 Blood Pressure 105/54 L Pulse Oximetry 100 100 100 12/19/17 16:10 12/19/17 16:47 12/19/17 17:00 Temperature Pulse Rate 112 H 111 H Respiratory Rate 22 21 23 Blood Pressure 105/52 L Pulse Oximetry 100 100 100 12/19/17 17:10 12/19/17 18:00 12/19/17 18:10 Temperature Pulse Rate 113 H 115 H 117 H Respiratory Rate 23 26 H 27 H Blood Pressure 92/55 L 101/53 L Pulse Oximetry 100 100 100 12/19/17 19:00 12/19/17 19:10 12/19/17 20:00 Temperature 102.5 F H Pulse Rate 121 H 120 H 124 H Respiratory Rate 35 H 24 23 Blood Pressure 97/52 L 118/59 L Pulse Oximetry 100 100 100 12/19/17 20:10 12/19/17 20:30 12/19/17 21:00 Temperature Pulse Rate 123 H 118 H Respiratory Rate 23 21 22 Blood Pressure 118/59 L Pulse Oximetry 100 100 100 12/19/17 21:10 12/19/17 22:00 12/19/17 22:10 Temperature Pulse Rate 116 H 113 H 110 H Respiratory Rate 21 20 20 Blood Pressure 100/55 L 101/55 L Pulse Oximetry 100 100 100 12/19/17 23:00 12/19/17 23:10 12/20/17 00:00 Temperature Pulse Rate 113 H 108 H 116 H Respiratory Rate 21 20 20 Blood Pressure 117/61 Pulse Oximetry 100 100 100 12/20/17 00:10 12/20/17 01:00 12/20/17 01:10 Temperature Pulse Rate 111 H 111 H 115 H Respiratory Rate 19 19 23 Blood Pressure 109/54 L 110/56 L 110/56 L Pulse Oximetry 100 100 100 12/20/17 01:12 12/20/17 02:00 12/20/17 02:10 Temperature Pulse Rate 106 H 107 H Respiratory Rate 18 21 22 Blood Pressure 113/71 113/71 Pulse Oximetry 100 100 100 12/20/17 03:00 12/20/17 03:10 12/20/17 03:40 Temperature Pulse Rate 108 H 117 H Respiratory Rate 23 23 19 Blood Pressure 108/58 L Pulse Oximetry 100 100 100 12/20/17 04:00 12/20/17 04:10 12/20/17 05:00 Temperature 100.1 F H Pulse Rate 103 H 103 H 101 H Respiratory Rate 22 22 49 H Blood Pressure 110/61 116/57 L Pulse Oximetry 100 100 100 12/20/17 05:10 12/20/17 06:00 12/20/17 06:10 Temperature Pulse Rate 103 H 103 H 95 H Respiratory Rate 46 H 26 H 47 H Blood Pressure 105/55 L 110/61 Pulse Oximetry 100 100 100 12/20/17 08:20 Temperature Pulse Rate Respiratory Rate 19 Blood Pressure Pulse Oximetry 100 Intake & Output 12/19/17 12/20/17 12/20/17 18:59 06:59 18:59 Intake Total 878 / 878 1423 / 1423 Output Total 2875 / 2875 275 / 275 Balance -1996 / 1148 / 1148 Weight 73 kg Intake: IV 250 / 250 665 / 665 Protonix Inj 80 MG In NS Inj 100 / 100 100 / 100 100 ML @ 10 mls/hr IV.CONT Q10H [facility] Rx#:[id number] Diprivan 1000 mg/100 ml Inj 1, 100 / 100 200 / 200 000 mg In 100 ml @ 5 MCG/KG/MIN 2.859 mls/hr IV.CONT TITRATE PRN Rx#:[id number] Ofirmev Inj 650 mg In 65 ml @ 65 / 65 400 mls/hr IV.SIG Q6H PRN Rx#: [id number] Zosyn 2.25 GM Premix 50 ML @ 50 / 50 50 / 50 100 mls/hr IV.SIG Q8H [facility] Rx#: [id number] fentaNYL 10 mcg/mL Premix Drip 250 / 250 2,500 mcg In 250 ml @ 50 MCG/HR 5 mls/hr IV.SIG TITRATE PRN Rx #:[id number] Tube Feeding 568 / 568 758 / 758 Tube Irrigant 60 / 60 Output: Urine 0 / 0 Hemodialysis Amount 2500 / 2500 Wound Drainage 375 / 375 275 / 275 # 2 Right Abdomen 375 / 375 275 / 275 Other: Date of Last Bowel Movement 12/19/17 12/20/17 # Bowel Movements 1 3 Narrative: Alert and awake; following commands; answering yes and no questions Abd: Soft; all dressing removed and re dressed; nice granulated tissue in midline incision; J tube with mild green drainage; lateral area of irritation healing nicely. Still with generalized edema although improving Rectal tube in place with brown stool - Urinary Catheter Management Indwelling Temp Sensing Catheter Cath placed during this visit: no Results - Labs 12/20/17 04:10 12/20/17 04:10 Laboratory Results - last 24 hr 12/19/17 12/19/17 12/20/17 13:36 20:22 00:47 WBC RBC Hgb Hct MCV MCH MCHC RDW Plt Count MPV Sodium Potassium Chloride Carbon Dioxide Anion Gap BUN Creatinine Estimated GFR POC Glucose 136 H 120 H 125 H Random Glucose Calcium Phosphorus Magnesium Total Bilirubin AST ALT Alkaline Phosphatase Total Protein Albumin Blood Type MTS Gel Crossmatch 12/20/17 12/20/17 12/20/17 04:10 04:10 04:16 WBC 21.7 H RBC 2.04 L Hgb 6.0 L* Hct 17.9 L* MCV 87.6 MCH 29.3 MCHC 33.5 RDW 15.9 Plt Count 263 MPV 9.4 Sodium 146 H Potassium 3.0 L Chloride 108 H Carbon Dioxide 25.9 Anion Gap 12 BUN 64 H Creatinine 5.36 H Estimated GFR 14 L POC Glucose 133 H Random Glucose 111 H Calcium 7.5 L Phosphorus 3.7 D Magnesium 2.2 Total Bilirubin 0.5 AST 79 H ALT 86 H Alkaline Phosphatase 126 H Total Protein 5.0 L Albumin 1.8 L Blood Type MTS Gel Crossmatch 12/20/17 10:27 WBC RBC Hgb Hct MCV MCH MCHC RDW Plt Count MPV Sodium Potassium Chloride Carbon Dioxide Anion Gap BUN Creatinine Estimated GFR POC Glucose Random Glucose Calcium Phosphorus Magnesium Total Bilirubin AST ALT Alkaline Phosphatase Total Protein Albumin Blood Type A Positive MTS Gel Crossmatch See Detail - Imaging Imaging: ITS Impressions Head MRI 12/03/17 00:00 CONCLUSION: 1. Minimal nonspecific periventricular white matter changes. 2. No restricted diffusion to suggest an acute ischemic event. 3. No evidence for significant ischemic changes. Chest CT 12/04/17 00:06 CONCLUSION: 1. Left greater than right pleural effusions and basilar atelectasis. 2. No hemorrhage or hematoma demonstrated. 3. Distended and fluid-filled esophagus. No wall thickening. Patient is status post gastrectomy. Nasogastric tube is at the GE junction. 4. Body wall edema/anasarca. Abdomen X-Ray 12/08/17 00:00 CONCLUSION: 1. 2 left-sided abdominal catheters. 2. Nonspecific bowel gas pattern. Abdomen/Pelvis CT 12/13/17 00:00 CONCLUSION: 1. New proximal small bowel dilatation. No discrete transition point. Contrast is seen in the distal small bowel. Findings may represent ileus or partial obstruction. 2. Postsurgical findings with surgical drains in the left upper quadrant. Free fluid is seen in the left upper quadrant. Loculated rounded 5 cm area of fluid with thin peripheral enhancement also noted just inferior to the surgical drains. 3. Prominent left lower lobe pulmonary consolidation and small left pleural effusion. GI Bleed Scan Nuclear Medicine 12/15/17 00:00 CONCLUSION: No active bleeding demonstrated. Chest X-Ray 12/19/17 06:00 CONCLUSION: Interval increase in abnormal opacity in the left perihilar region and left lung base. This may represent infiltrate and/or effusion. Assessment and Plan - Assessment (1) Gastric perforation Code(s): K25.5 - Chronic or unspecified gastric ulcer with perforation Status : Resolved Plan: 47yo male s/p Exlap and gastrectomy for gastric perforation, s/p esophago[facility]junostomy at [facility] -Intubated---vent per [facility]; hopefully extubation after hemodialysis tomorrow; if not able to extubate by next week would likely need tracheostomy tube -TF at 50 cc via J tube ---tolerating -Hmg 6.0-- no signs of bleeding; will transfuse 1 unit today; check labs again tomorrow -S/p EGD/colonoscopy and NM bleeding scan negative -Continue to monitor/follow from surgery standpoint -Dialysis per Nephrology ---plan for treatment tomorrow which will hopefully optimize him for extubation - Plan I personally evaluated the patient in room 1313. His eyes are open. He is appropriately interactive. He is weak bilateral dry talc racker strength. He does follow commands. He denies being any in any pain. His abdomen shows his midline incision healing. It is getting smaller. He has some green tinged bilious drainage around his feeding jejunostomy. He is tolerating tube feeds at goal. A large amount of liquid stool was primarily brown. Is also got flatus within the collection bag. Drain tube continues to drain yellow serous third space type fluid. His extremities are slightly less edematous today. Continue current support. Possibility of extubation tomorrow. The exam, history, and the medical decision-making described in the above note were completed with the assistance of the mid-level provider. I reviewed and agree with the findings presented. I attest that I had a [id number] encounter with the patient on the same day, and personally performed and documented my assessment and findings in the medical record.
--- NOTE | 2017-12-20 11:03 | P.PNCC ---
Subjective Subjective Remarks/Hospital Course: Patient was recently admitted to [facility] 11/22 and transferred to [facility] 11/26/17 after the following hospital course: 47-year-old -[place] male with reportedly no past medical or past surgical history who was admitted to hospitalist service 11/22/17 after presenting with abdominal pain, nausea, vomiting. He had CT abd/pelvis with massive gastric distention. NG tube had been placed. I was called to patient's bedside for CODE BLUE PEA arrest. CPR was ongoing and patient had massive abdominal distension and gastric regurgitant in the airway. He was emergently intubated and large amount of gastric secretions suctioned from oropharynx. After 21 minutes of CPR, ROSC was obtained and he was profoundly hypotensive. Continued aggressive fluid resuscitation and initiated dopamine. He was transferred to [facility] where CVL and R radial art line were placed and he was given 7 L of crystalloid and albumin. CXR demonstrated pneumoperitoneum and Dr. Martin Gudino was called emergently and he immediately contacted OR for emergent ex lap. He had intraabdominal hypertension with IAP of 40 mmHg, though fortunately was able to be ventilated adequately after rocuronium 50 mg IV and was transferred to OR. Dr. Martin Gudino took to the operating room early in the morning on 11/23 and discovered tension pneumoperitoneum, massive gastric distension, ischemia of the proximal 2/3 of the stomach and large gastric perforation with massive intraperitoneal contamination with food particles. Dr. Isaacs placed 2 NGT and decompressed 2 L of succus. Patient had initial improvement in vital signs in the immediate postoperative period, however he subsequently became hypotensive requiring upward titration of levophed and addition of vasopressin and stress dose hydrocortisone. He remains on levophed 10 mcg/min, neosynephrine 80 mcg/ min, vasopressin 0.04 units/min with overall vasopressor requirement weaning overnight. He is oliguric and creatinine is continuing to climb. He was given 2 L of crystalloid and albumin overnight. He does have significant fluid losses with combination of abdominal dressing and NGT output, so I will give an additional L of crystalloid now to monitor hourly response as he certainly does not appear volume overloaded. Nonetheless Flotrac numbers are suggesting adequate volume status and we may be seeing the consequence of ischemic ATN. May ultimately require HD, however not at this time. Abdomen remains open and plan is to re-explore 11/25. 11/25: Patient has acceptable hemodynamics by Flotrac but remains septic with requirements for phenylephrine 200 mics per minute, Levophed 8 mics per minute and vasopressin 0.04 units/min for blood pressure support. This has improved overnight and the Bhavesh-Synephrine support has been weaned off completely. Acid base balance is acceptable. ATN has developed which will undoubtedly require hemodialysis. Potassium level is normal. He is at increased risk for an anesthetic now but there is an urgent need to check for residual gastric necrosis. 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 Since the source control surgery, the maintenance of normal acid-base balance has been less difficult. Patient remains anuric with a rising creatinine above 6.0. He is clearly ahead on volume and will benefit from dialysis. A 2 lumen hemodialysis catheter was placed on 11/25 and has been packed with dilute heparin solution. The right internal jugular central line is been in place for 4 days and accessed multiple times. The femoral art line has been in for 4 days. Shock liver was apparent after the cardiac arrest reflecting a transaminitis, elevated bilirubin, and prolonged INR. The INR has remained normal following the transfusion of 4 units of fresh frozen plasma prior to surgery yesterday. A 10% dextrose infusion continues because of ongoing problems with hypoglycemia. Thrombocytopenia at 37,000 persists. He has remained on antibiotic coverage with Pipracil/tazobactam and fungal coverage with fluconazole, all adjusted for renal failure. Present vasopressor requirements include levophed at 7 mics per minute and vasopressin at 0.04 units/min. The chest x-ray is consistent with minor aspiration at the time of his preoperative cardiac arrest on the floor and cultures have subsequently grown Klebsiella, pansensitive. The operative note will clarify the extent of the surgery but in essence the distal esophagus is stapled off and marked with 2 Prolene sutures. The antrum of the stomach is oversewn. Most of the stomach has been removed. The abdomen is open with a VAC dressing applied. Subjective: 11/29: Bowel was in discontinuity following subtotal gastrectomy and patient was transferred to [facility]. On reexploration 11/28 he underwent Dinh-en-y esophagojejunostomy, feeding jejunostomy placement, diagnostic EGD, primary fascial closure. Wound vac was applied to abdomen (though currently wet to dry dressing in place upon arrival). He was reportedly found to have candidemia and was started on micafungin and has undergone ophtho eval. Lines including CVL, Vascath and art line have all been changed at [facility] (though not clear when). He remains on mechanical ventilation and has been weaned off pressors. He was found to have BUE DVTs and is on heparin drip. He is on TPN and has been started on trickle tube feeds with Nepro via jejunostomy. NGT is to [facility]. He underwent HD postoperatively on 11/28. He has now been transferred back to [facility] for ongoing management. I have updated his father and stepmother. 11/30: Patient re-admitted s/p transfer from [facility] overnight, otherwise no acute issues. Scheduled to undergo HD today. 12/01: T-max 101.7, leukocytosis to 27,000 with bandemia. Now 3 days following Dinh-en-Y reconstruction of GI tract following sub-total gastrectomy for gastric necrosis. All new lines placed after diagnosis of candidemia. TPN infusing, jejunostomy at trickle flow and can be increased slowly per general surgery. 12/02: Marked leukocytosis with bandemia persists. Afebrile over last 24 hours. Leave NG tube across the esophageal anastomosis and surgical service will direct timing of contrast study about 7 days following surgery. Continue with spontaneous breathing trials. 12/03: extubated yesterday. since then, has not followed commands, and does not talk. appears to have clinically an aphasia, although his uremia or severe hypoactive delirium could present this way. purposeful movements. will obtain MRI to rule out acute ischemia, as this appears to be a new mental status change (11/29 /[facility] notes state interactive on ventilator). 12/04: reintubated overnight: more output from ZAINAB drains. hgb dropped to 7 this AM: receiving 1 unit prbc. MRI negative for acute change. EEG ordered today to rule out subclinical status epilepticus. also concern overnight for aspiration event. 12/05: T-max 99. WBC 24,000. Reintubated yesterday for respiratory failure probably related to aspiration. Trickle feeding continues through jejunostomy. Nasogastric tube is through the anastomosis and is to low intermittent. 12/06: Afebrile. WBC 26,000. Bandemia has largely resolved. There are bilateral pleural effusions which may need to be tapped to rule out infection or leak. Both lower lobes are consolidated on CAT scan, probably representing compressive atelectasis from the effusions. 12/07: White count remains elevated at 25,000. Total parenteral nutrition infusing and tolerated. Altered mental status persists, possibly related to the cardiac arrest on the floor prior to transfer to the ICU. 12/08: Tolerating total parenteral nutrition with good glucose control. Leukocytosis persists. Fluid tap from left chest bit cloudy, cultures pending. Maintaining adequate gas exchange on lower levels of fractional inspired oxygen. Aim for extubation trial again soon. 12/09: Patient considerably less edematous over the past several days following successful dialysis runs. Continually fails attempts at weaning parameters and desaturation. Left chest drainage is no growth by culture. White blood cell count remains elevated. 12/10: Remains intubated. WBC count elevated but stable. Left chest tube with 260 mL output in 24 hours. BUN/creatinine remains elevated 12/11: Remains intubated sedated hemoglobin dropped to 5.8 today. RN has noted lower GI bleed. Protonix IV every 12 started and GI consulted. Transfuse 2 units PRBC. Keep n.p.o. discussed with Dr. Wellington 12/12: Patient remains intubated sedated for vent synchrony. Hemoglobin stable 7.5. Endoscopy negative yesterday CT abdomen pelvis no active bleeding. Hemodynamically remained stable. Receiving hemodialysis at this time. Left chest tube with high output 450 mL in 24 hours. Attempt weaning trials starting today 12/13: Patient continues to lose blood. Hemoglobin 5.5. Plan to get colonoscopy today. Continues to have melanotic stools. The night RN aspirated blood from jejunostomy tube. Enteroscopy yesterday was unremarkable. Transfusing 3 units of PRBC repeat hemoglobin at 2 PM. No significant bloody output from ZAINAB drains. Will discuss with general surgery 12/14: Remains intubated sedated hemoglobin 7.9 today 1 unit PRBC ordered. Can melanotic stools or NG tube coffee-ground today. EGD yesterday showed friable mucosa at the esophageal anastomotic junction which was injected by GI. Otherwise endoscopies including colonoscopies unremarkable. Hemodynamically remained stable. Discussed extensively with GI and general surgery yesterday 12/15: Patient continues to have significant melanotic stools. Hemoglobin dropped to 7.8 and patient received 1 unit PRBC follow-up hemoglobin only 7.9. Additional 1 unit PRBC ordered. Status post EGD colonoscopy-essentially unremarkable except irritation at the esophageal anastomotic site. Bleeding is most likely small intestinal 12/16: Critically ill but slightly more stable today no obvious melanotic stools. According to the bedside RN when the tube feeds were disconnected there was some bleeding from the jejunostomy tube. Hemoglobin remained stable 7.8. Discussed with Dr. Wellington general surgeon, and his opinion bleeding likely from mucosal sloughing. Initiate spontaneous breathing trials 12/17: Remains critical hemoglobin dropped to 5.4 getting 3 units of PRBC. Extensive workup including EGD colonoscopy and bleeding scans x2 have been negative for active bleed. This seems to be most likely small intestinal bleed from mucosal bleed. Also it was not that the ZAINAB drain has color similar to tube feeds. I discussed with Dr. Wellington he will evaluate the patient afternoon. If there is suspicions will get CT scan after contrast through the J -tube 12/18: More awake alert follows commands weakly. No obvious bleeding hemoglobin 7.3. Will transfuse 1 unit PRBC. 12/19: Gastrointestinal bleeding appears to have stopped. Hemoglobin now stable. Tube feeds infusing. No more transfusions necessary. 12/20: Patient remains intubated sedated, hemoglobin is 6 will transfuse 1 unit PRBC. Hemodialysis scheduled for tomorrow. Appears weak pale. Very weakly follows commands on upper extremity Objective Vital Signs / I&O: Vital Signs 12/19/17 10:31 12/19/17 10:46 12/19/17 11:00 Temperature Pulse Rate 116 H 119 H 120 H Respiratory Rate 25 H 28 H 30 H Blood Pressure 106/55 L 105/58 L Pulse Oximetry 100 100 100 12/19/17 11:01 12/19/17 11:16 12/19/17 11:31 Temperature Pulse Rate 118 H 114 H 111 H Respiratory Rate 28 H 26 H 24 Blood Pressure 106/58 L 94/48 L 88/53 L Pulse Oximetry 100 100 100 12/19/17 11:39 12/19/17 11:46 12/19/17 12:00 Temperature 99.9 F H Pulse Rate 110 H 110 H 111 H Respiratory Rate 27 H 23 22 Blood Pressure 92/54 L 105/55 L Pulse Oximetry 100 100 100 12/19/17 12:01 12/19/17 12:02 11/14/18 12:16 Temperature Pulse Rate 112 H 114 H Respiratory Rate 24 24 25 H Blood Pressure 114/59 L 119/57 L Pulse Oximetry 100 100 100 12/19/17 13:00 12/19/17 13:10 12/19/17 14:00 Temperature Pulse Rate 117 H 113 H 113 H Respiratory Rate 23 21 22 Blood Pressure 111/53 L Pulse Oximetry 100 100 100 12/19/17 14:10 12/19/17 15:00 12/19/17 15:10 Temperature Pulse Rate 113 H 112 H 111 H Respiratory Rate 21 21 22 Blood Pressure 110/56 L 105/54 L Pulse Oximetry 100 100 100 12/19/17 15:18 12/19/17 16:00 12/19/17 16:10 Temperature 100.1 F H Pulse Rate 109 H 112 H Respiratory Rate 23 23 22 Blood Pressure 105/52 L Pulse Oximetry 100 100 100 12/19/17 16:47 12/19/17 17:00 12/19/17 17:10 Temperature Pulse Rate 111 H 113 H Respiratory Rate 21 23 23 Blood Pressure 92/55 L Pulse Oximetry 100 100 100 12/19/17 18:00 12/19/17 18:10 12/19/17 19:00 Temperature Pulse Rate 115 H 117 H 121 H Respiratory Rate 26 H 27 H 35 H Blood Pressure 101/53 L Pulse Oximetry 100 100 100 12/19/17 19:10 12/19/17 20:00 12/19/17 20:10 Temperature 102.5 F H Pulse Rate 120 H 124 H 123 H Respiratory Rate 24 23 23 Blood Pressure 97/52 L 118/59 L 118/59 L Pulse Oximetry 100 100 100 12/19/17 20:30 12/19/17 21:00 12/19/17 21:10 Temperature Pulse Rate 118 H 116 H Respiratory Rate 21 22 21 Blood Pressure 100/55 L Pulse Oximetry 100 100 100 12/19/17 22:00 12/19/17 22:10 12/19/17 23:00 Temperature Pulse Rate 113 H 110 H 113 H Respiratory Rate 20 20 21 Blood Pressure 101/55 L Pulse Oximetry 100 100 100 12/19/17 23:10 12/20/17 00:00 12/20/17 00:10 Temperature Pulse Rate 108 H 116 H 111 H Respiratory Rate 20 20 19 Blood Pressure 117/61 109/54 L Pulse Oximetry 100 100 100 12/20/17 01:00 12/20/17 01:10 12/20/17 01:12 Temperature Pulse Rate 111 H 115 H Respiratory Rate 19 23 18 Blood Pressure 110/56 L 110/56 L Pulse Oximetry 100 100 100 12/20/17 02:00 12/20/17 02:10 12/20/17 03:00 Temperature Pulse Rate 106 H 107 H 108 H Respiratory Rate 21 22 23 Blood Pressure 113/71 113/71 Pulse Oximetry 100 100 100 12/20/17 03:10 12/20/17 03:40 12/20/17 04:00 Temperature 100.1 F H Pulse Rate 117 H 103 H Respiratory Rate 23 19 22 Blood Pressure 108/58 L 110/61 Pulse Oximetry 100 100 100 12/20/17 04:10 12/20/17 05:00 12/20/17 05:10 Temperature Pulse Rate 103 H 101 H 103 H Respiratory Rate 22 49 H 46 H Blood Pressure 116/57 L 105/55 L Pulse Oximetry 100 100 100 12/20/17 06:00 12/20/17 06:10 12/20/17 08:20 Temperature Pulse Rate 103 H 95 H Respiratory Rate 26 H 47 H 19 Blood Pressure 110/61 Pulse Oximetry 100 100 100 Intake & Output 12/19/17 12/20/17 12/20/17 18:59 06:59 18:59 Intake Total 878 / 878 1423 / 1423 Output Total 2875 / 2875 275 / 275 Balance -1996 / -1996 1148 / 1148 Weight 73 kg Intake: IV 250 / 250 665 / 665 Protonix Inj 80 MG In NS Inj 100 / 100 100 / 100 100 ML @ 10 mls/hr IV.CONT Q10H COLE Rx#:[id number] Diprivan 1000 mg/100 ml Inj 1, 100 / 100 200 / 200 000 mg In 100 ml @ 5 MCG/KG/MIN 2.859 mls/hr IV.CONT TITRATE PRN Rx#:[id number] Ofirmev Inj 650 mg In 65 ml @ 65 / 65 400 mls/hr IV.SIG Q6H PRN Rx#: [id number] Zosyn 2.25 GM Premix 50 ML @ 50 / 50 50 / 50 100 mls/hr IV.SIG Q8H COLE Rx#: [id number] fentaNYL 10 mcg/mL Premix Drip 250 / 250 2,500 mcg In 250 ml @ 50 MCG/HR 5 mls/hr IV.SIG TITRATE PRN Rx #:[id number] Tube Feeding 568 / 568 758 / 758 Tube Irrigant 60 / 60 Output: Urine 0 / 0 Hemodialysis Amount 2500 / 2500 Wound Drainage 375 / 375 275 / 275 # 2 Right Abdomen 375 / 375 275 / 275 Other: Date of Last Bowel Movement 12/19/17 12/20/17 # Bowel Movements 1 3 Result Diagrams: 12/20/17 04:10 12/20/17 04:10 Objective Remarks: GEN: Chronically ill-appearing, on vent awake HEENT: NCAT, pupils 3 mm and reactive bilaterally. Pale NECK: RIJ vasc-cath and LIJ TLC present, clean/ dry/ intact CARDIO: NSR, normal S1, S2, regular rhythm, no JVD PULM: On PRVC mode ventilation. Scattered rhonchi persist, decreased breath sounds both bases. GI: Midline surgical bandages clean/dry/ intact. ZAINAB #1 removed, ZAINAB #2 with hazy drainage. Abdomen soft. Bowel sounds present. SKIN: No rashes or lesions, dry NEURO: Awake and alert tracking but very weak very weakly follows commands today. Moves 4 limbs spontaneously but only weakly. Assessment and Plan - Problem List (1) Gastric perforation Code(s): K25.5 - Chronic or unspecified gastric ulcer with perforation Status : Resolved (2) Status post total gastrectomy and Dinh-en-Y esophagojejunal anastomosis Code(s): Z90.3 - Acquired absence of stomach [part of]; Z98.0 - Intestinal bypass and anastomosis status Status: Acute (3) Ischemic hepatitis Code(s): K75.9 - Inflammatory liver disease, unspecified Status: Acute (4) Gastric necrosis Code(s): K31.89 - Other diseases of stomach and duodenum Status: Resolved (5) Thrombocytopenia Code(s): D69.6 - Thrombocytopenia, unspecified Status: Acute (6) Acute bilateral deep vein thrombosis (DVT) of upper extremities Code(s): I82.623 - Acute embolism and thrombosis of deep veins of upper extremity, bilateral Status: Acute (7) Anemia Code(s): D64.9 - Anemia, unspecified Status: Acute (8) Leukocytosis Code(s): D72.829 - Elevated white blood cell count, unspecified Status: Acute (9) Candidemia Code(s): B37.7 - Candidal sepsis Status: Acute (10) On total parenteral nutrition (TPN) Code(s): Z78.9 - Other specified health status Status: Acute (11) Hx of cardiac arrest Code(s): Z86.74 - Personal history of sudden cardiac arrest Status: Resolved (12) Acute hemodialysis patient Code(s): Z99.2 - Dependence on renal dialysis Status: Acute (13) JACLYN (acute kidney injury) Code(s): N17.9 - Acute kidney failure, unspecified Status: Acute (14) Aspiration pneumonia Code(s): J69.0 - Pneumonitis due to inhalation of food and vomit Status: Acute (15) Acute respiratory failure Code(s): J96.00 - Acute respiratory failure, unspecified whether with hypoxia or hypercapnia Status: Acute - Assessment and Plan Plan: NEURO: Metabolic encephalopathy On Fentanyl/propofol drips for sedation, pain control. Improving neuro exam, continue daily sedation vacation Following commands x4 RESP: Acute respiratory failure Left pleural effusion PRVC, Ventilator Bundle Spontaneous breathing trials as tolerated-failed today, will not be able to extubate due to generalized weakness Scheduled and as needed breathing treatments Left pigtail chest tube removed 12/18 CV: Cardiac arrest 11/23/17 (PEA arrest due to shock secondary to acute gastric perf and tension pneumoperitoneum) Septic shock, resolved Now off pressors. Hemodynamic monitoring Use as needed medication for hypertension Fluid removal with hemodialysis GI: s/p anterior gastric perforation with tension pneumoperitoneum status post ex lap with primary repair with stapler 11/23 On second look 11/25 he was found to have gastric necrosis requiring subtotal gastrectomy and placement of AB Thera VAC dressing. The bowel was in discontinuity and he was transferred to [facility]. On 11/28 reexploration with Dinh-en-y esophagojejunostomy, feeding jejunostomy placement, diagnostic EGD, primary fascial closure. Gastric necrosis , Ischemic hepatopathy GIB with blood loss anemia NGT to LIWS, leave above esophageal anastomosis to avoid irritation Bleeding appears to be small bowel mucosal bleeding at this point discussed with Dr. Wellington Has feeding jejunostomy and advance tube feeds with Nepro at 50 ml per hour EGD, enteroscopy 12/12/2017 unremarkable, colonoscopy 12/13/2017 unremarkable. Bleeding scan did not show any particular site of bleeding ZAINAB drains in place #1 anterior to anastomosis, now removed, #2 posterior to the anastomosis. Management per general surgery. Had right upper quadrant ultrasound on 11/27/17 that demonstrated contracted gallbladder with sludge. No evidence of cholecystitis. Echogenicity in right liver related to focal fatty change or altered perfusion, patent vascularity. Protonix GTT FEN/RENAL: JACLYN secondary to ischemic ATN HD as started 11/26 at [place]. Has R IJ Vascath. Monitor I/O and electrolytes. Nephrology following Continue scheduled dialysis ID: Gastric perforation with large amount particulate peritoneal contamination 11/23 Acute Aspiration pneumonia Candidemia (C [place] 11/26 at culture) Continue Zosyn/micafungin. ID following Dr. Millan Patient evaluated by ophthalmology prior to transfer. Do not see an ophthalmology note in the transfer documentation, requested document. Requested culture data from [facility]. Follow-up cultures here Sputum culture 11/24 with pansensitive Klebsiella pneumonia HEME: Anemia requiring transfusion Thrombocytopenia-resolved Bilateral upper extremity DVTs Transfuse 3 units PRBC 12/13, transfuse 1 unit PRBC 12/14/2017, 2U 12/15. GI workup as above. 2U PRBC 12/18/17 1U PRBC today for hemoglobin of 6, additional transfusion tomorrow with hemodialysis, there is no evidence of hemolysis U/s 11/26 BUE - thrombus R axillary, brachial and basilic veins and thrombus in left axillary and left brachial veins. U/s bilateral lower extremities 11/26 at [facility] negative from common femoral to popliteal vein levels. Arrived on heparin drip, due to GI bleed and anemia all anticoagulation is being held Hematology consult was obtained at [facility] and recommended heparin drip and transfuse prn for platelets <50k. ENDO: Monitor Glucose q4 hours and use low dose insulin sliding scale as indicated. PROPH: s/q heparin held due to blood loss anemia, GIB. Protonix for stress ulcer prophylaxis. DVT prophylaxis. ACCESS: R IJ vascath , L IJ CVL. All existing lines were replaced at [facility]. Left IJ line accidentally was dislodged 12/23/2017, new left IJ line placed FULL CODE Overall impression: Multiple ongoing medical problems. Was critical with continued GI bleed and anemia requiring transfusion. Most likely small intestinal mucosal bleeding. Transfuse 1 units PRBC today. Attempt to place him in an LTAC (6) Acute bilateral deep vein thrombosis (DVT) of upper extremities Qualifiers: Affected thrombotic vein of extremity: brachial Qualified Code(s): I82.623 - Acute embolism and thrombosis of deep veins of upper extremity, bilateral (15) Acute respiratory failure Qualifiers: Respiratory failure complication: hypoxia Qualified Code(s): J96.01 - Acute respiratory failure with hypoxia
--- NOTE | 2017-12-20 12:07 | P.PNID ---
Subjective Remarks: Currently is awake. Nods head. following commands. On the vent. BP stable. Temp spike last night. Abdominal drainage catheter has straw colored drainage. Cultures have no growth. White blood cell count still elevated. Reintubated 12/04 Antibiotics: Micafungin Zosyn Allergies/Adverse Reactions: Allergies No Known Allergies Allergy (Verified 11/22/17 02:38) Objective Vital Signs 12/19/17 12:00 12/19/17 12:01 12/19/17 12:02 Temperature 99.9 F H Pulse Rate 111 H 112 H Respiratory Rate 22 24 24 Blood Pressure 114/59 L Pulse Oximetry 100 100 100 12/19/17 12:16 12/19/17 13:00 12/19/17 13:10 Temperature Pulse Rate 114 H 117 H 113 H Respiratory Rate 25 H 23 21 Blood Pressure 119/57 L 111/53 L Pulse Oximetry 100 100 100 12/19/17 14:00 12/19/17 14:10 12/19/17 15:00 Temperature Pulse Rate 113 H 113 H 112 H Respiratory Rate 22 21 21 Blood Pressure 110/56 L Pulse Oximetry 100 100 100 12/19/17 15:10 12/19/17 15:18 12/19/17 16:00 Temperature 100.1 F H Pulse Rate 111 H 109 H Respiratory Rate 22 23 23 Blood Pressure 105/54 L Pulse Oximetry 100 100 100 12/19/17 16:10 12/19/17 16:47 12/19/17 17:00 Temperature Pulse Rate 112 H 111 H Respiratory Rate 22 21 23 Blood Pressure 105/52 L Pulse Oximetry 100 100 100 12/19/17 17:10 12/19/17 18:00 12/19/17 18:10 Temperature Pulse Rate 113 H 115 H 117 H Respiratory Rate 23 26 H 27 H Blood Pressure 92/55 L 101/53 L Pulse Oximetry 100 100 100 12/19/17 19:00 12/19/17 19:10 12/19/17 20:00 Temperature 102.5 F H Pulse Rate 121 H 120 H 124 H Respiratory Rate 35 H 24 23 Blood Pressure 97/52 L 118/59 L Pulse Oximetry 100 100 100 12/19/17 20:10 12/19/17 20:30 12/19/17 21:00 Temperature Pulse Rate 123 H 118 H Respiratory Rate 23 21 22 Blood Pressure 118/59 L Pulse Oximetry 100 100 100 11/14/18 21:10 12/19/17 22:00 12/19/17 22:10 Temperature Pulse Rate 116 H 113 H 110 H Respiratory Rate 21 20 20 Blood Pressure 100/55 L 101/55 L Pulse Oximetry 100 100 100 12/19/17 23:00 12/19/17 23:10 12/20/17 00:00 Temperature Pulse Rate 113 H 108 H 116 H Respiratory Rate 21 20 20 Blood Pressure 117/61 Pulse Oximetry 100 100 100 12/20/17 00:10 12/20/17 01:00 12/20/17 01:10 Temperature Pulse Rate 111 H 111 H 115 H Respiratory Rate 19 19 23 Blood Pressure 109/54 L 110/56 L 110/56 L Pulse Oximetry 100 100 100 12/20/17 01:12 12/20/17 02:00 12/20/17 02:10 Temperature Pulse Rate 106 H 107 H Respiratory Rate 18 21 22 Blood Pressure 113/71 113/71 Pulse Oximetry 100 100 100 12/20/17 03:00 12/20/17 03:10 12/20/17 03:40 Temperature Pulse Rate 108 H 117 H Respiratory Rate 23 23 19 Blood Pressure 108/58 L Pulse Oximetry 100 100 100 12/20/17 04:00 12/20/17 04:10 12/20/17 05:00 Temperature 100.1 F H Pulse Rate 103 H 103 H 101 H Respiratory Rate 22 22 49 H Blood Pressure 110/61 116/57 L Pulse Oximetry 100 100 100 12/20/17 05:10 12/20/17 06:00 12/20/17 06:10 Temperature Pulse Rate 103 H 103 H 95 H Respiratory Rate 46 H 26 H 47 H Blood Pressure 105/55 L 110/61 Pulse Oximetry 100 100 100 12/20/17 08:20 12/20/17 11:50 Temperature Pulse Rate Respiratory Rate 19 20 Blood Pressure Pulse Oximetry 100 100 Intake & Output 12/19/17 12/20/17 12/20/17 18:59 06:59 18:59 Intake Total 878 / 878 1423 / 1423 Output Total 2875 / 2875 275 / 275 Balance -1996 / 1148 / 1148 Weight 73 kg Intake: IV 250 / 250 665 / 665 Protonix Inj 80 MG In NS Inj 100 / 100 100 / 100 100 ML @ 10 mls/hr IV.CONT Q10H [facility] Rx#:[id number] Diprivan 1000 mg/100 ml Inj 1, 100 / 100 200 / 200 000 mg In 100 ml @ 5 MCG/KG/MIN 2.859 mls/hr IV.CONT TITRATE PRN Rx#:[id number] Ofirmev Inj 650 mg In 65 ml @ 65 / 65 400 mls/hr IV.SIG Q6H PRN Rx#: [id number] Zosyn 2.25 GM Premix 50 ML @ 50 / 50 50 / 50 100 mls/hr IV.SIG Q8H [facility] Rx#: [id number] fentaNYL 10 mcg/mL Premix Drip 250 / 250 2,500 mcg In 250 ml @ 50 MCG/HR 5 mls/hr IV.SIG TITRATE PRN Rx #:[id number] Tube Feeding 568 / 568 758 / 758 Tube Irrigant 60 / 60 Output: Urine 0 / 0 Hemodialysis Amount 2500 / 2500 Wound Drainage 375 / 375 275 / 275 # 2 Right Abdomen 375 / 375 275 / 275 Other: Date of Last Bowel Movement 12/19/17 12/20/17 12/20/17 # Bowel Movements 1 3 12/18/17 02:30 Stool Occult Blood - Final Hemoccult positive Lab - Hematology Results 12/19/17 12/20/17 03:46 04:10 WBC 21.0 H 21.7 H RBC 2.48 L 2.04 L Hgb 7.4 L 6.0 L* Hct 21.1 L 17.9 L* MCV 84.9 87.6 MCH 30.0 29.3 MCHC 35.3 33.5 RDW 16.0 15.9 Plt Count 231 263 MPV 9.3 9.4 Lab - Chemistry Results 12/18/17 12/18/17 12/18/17 12:25 17:10 17:56 Sodium Potassium 3.5 Chloride Carbon Dioxide Anion Gap BUN Creatinine Estimated GFR POC Glucose 136 H 136 H Random Glucose Calcium Phosphorus Magnesium Total Bilirubin AST ALT Alkaline Phosphatase Total Protein Albumin 12/18/17 12/19/17 12/19/17 21:37 00:36 03:46 Sodium 148 H Potassium 3.4 L Chloride 113 H Carbon Dioxide 23.4 Anion Gap 12 BUN 90 H Creatinine 6.43 H Estimated GFR 11 L POC Glucose 141 H 121 H Random Glucose 102 Calcium 7.5 L Phosphorus 6.3 H D Magnesium 2.3 Total Bilirubin 0.6 AST 75 H ALT 87 H Alkaline Phosphatase 123 H Total Protein 4.8 L Albumin 1.5 L 12/19/17 12/19/17 12/19/17 08:26 13:36 20:22 Sodium Potassium Chloride Carbon Dioxide Anion Gap BUN Creatinine Estimated GFR POC Glucose 147 H 136 H 120 H Random Glucose Calcium Phosphorus Magnesium Total Bilirubin AST ALT Alkaline Phosphatase Total Protein Albumin 12/20/17 12/20/17 12/20/17 00:47 04:10 04:16 Sodium 146 H Potassium 3.0 L Chloride 108 H Carbon Dioxide 25.9 Anion Gap 12 BUN 64 H Creatinine 5.36 H Estimated GFR 14 L POC Glucose 125 H 133 H Random Glucose 111 H Calcium 7.5 L Phosphorus 3.7 D Magnesium 2.2 Total Bilirubin 0.5 AST 79 H ALT 86 H Alkaline Phosphatase 126 H Total Protein 5.0 L Albumin 1.8 L Imaging: ITS Impressions Head MRI 12/03/17 00:00 CONCLUSION: 1. Minimal nonspecific periventricular white matter changes. 2. No restricted diffusion to suggest an acute ischemic event. 3. No evidence for significant ischemic changes. Chest CT 12/04/17 00:06 CONCLUSION: 1. Left greater than right pleural effusions and basilar atelectasis. 2. No hemorrhage or hematoma demonstrated. 3. Distended and fluid-filled esophagus. No wall thickening. Patient is status post gastrectomy. Nasogastric tube is at the GE junction. 4. Body wall edema/anasarca. Abdomen X-Ray 12/08/17 00:00 CONCLUSION: 1. 2 left-sided abdominal catheters. 2. Nonspecific bowel gas pattern. Abdomen/Pelvis CT 12/13/17 00:00 CONCLUSION: 1. New proximal small bowel dilatation. No discrete transition point. Contrast is seen in the distal small bowel. Findings may represent ileus or partial obstruction. 2. Postsurgical findings with surgical drains in the left upper quadrant. Free fluid is seen in the left upper quadrant. Loculated rounded 5 cm area of fluid with thin peripheral enhancement also noted just inferior to the surgical drains. 3. Prominent left lower lobe pulmonary consolidation and small left pleural effusion. GI Bleed Scan Nuclear Medicine 12/15/17 00:00 CONCLUSION: No active bleeding demonstrated. Chest X-Ray 12/19/17 06:00 CONCLUSION: Interval increase in abnormal opacity in the left perihilar region and left lung base. This may represent infiltrate and/or effusion. Physical Exam: PHYSICAL EXAMINATION: GENERAL: Patient on the vent. Sedated. Awake. HEENT: Unable to fully assess. Mucosa is moist. NECK: Supple. LUNGS: Decreased breath sounds. Slight rhonchi at the bases. HEART: Regular S1, S2. No murmur. ABDOMEN: Decreased bowel sounds. ZAINAB drain has serous drainage EXTREMITIES: No clubbing or cyanosis. Both upper extremities has edema. SKIN: No diffuse rash. NEUROLOGIC: unable to fully assess, intubated. Nods head. PSYCHIATRIC: Unable to assess. Assessment and Plan - Plan IMPRESSION: 1. Candidemia following gastric perforation and gastric ischemia. Blood culture at [facility] in [place] on 11/26 had Starr glabrata. Repeat blood culture is negative. 2. Status post abdominal surgery. 3. Acute respiratory failure. left pleural effusion. 4. Aspiration. 5. Acute kidney disease. 5. Recent cardiac arrest. 6. Leukocytosis. White blood cell count remains elevated. 7. Abx associated diarrhea, bowel wall thickening c.diff neg. RECOMMENDATIONS: 1. Continue micafungin for candidemia. 2. Continue piperacillin/tazobactam. 3. Check blood culture if temp persist. 4. Continue to monitor white blood cell count. 5 Monitor temperature.
[2017-12-20] MEDS: Chlorhexidine 0.12% Oral Kit 15 ML UDC OROPHARYNG SCH ×2 (12:44→20:17)
--- NOTE | 2017-12-20 12:57 | P.PNNP ---
Subjective Interval history: Patient appears more alert today but weak. Patient remains intubated and sedated Patient dialyzed yesterday, 2.5 L removed. Hemoglobin is 6, 1 unit PRBC to be transfused today. Hemodialysis scheduled for tomorrow. <Jocelyn Crews - Last Filed: 12/20/17 12:52> Physical Exam Vital signs: Vital Signs 12/19/17 13:00 12/19/17 13:10 12/19/17 14:00 Temperature Pulse Rate 117 H 113 H 113 H Respiratory Rate 23 21 22 Blood Pressure 111/53 L Pulse Oximetry 100 100 100 12/19/17 14:10 12/19/17 15:00 12/19/17 15:10 Temperature Pulse Rate 113 H 112 H 111 H Respiratory Rate 21 21 22 Blood Pressure 110/56 L 105/54 L Pulse Oximetry 100 100 100 12/19/17 15:18 12/19/17 16:00 12/19/17 16:10 Temperature 100.1 F H Pulse Rate 109 H 112 H Respiratory Rate 23 23 22 Blood Pressure 105/52 L Pulse Oximetry 100 100 100 12/19/17 16:47 12/19/17 17:00 12/19/17 17:10 Temperature Pulse Rate 111 H 113 H Respiratory Rate 21 23 23 Blood Pressure 92/55 L Pulse Oximetry 100 100 100 12/19/17 18:00 12/19/17 18:10 12/19/17 19:00 Temperature Pulse Rate 115 H 117 H 121 H Respiratory Rate 26 H 27 H 35 H Blood Pressure 101/53 L Pulse Oximetry 100 100 100 12/19/17 19:10 12/19/17 20:00 12/19/17 20:10 Temperature 102.5 F H Pulse Rate 120 H 124 H 123 H Respiratory Rate 24 23 23 Blood Pressure 97/52 L 118/59 L 118/59 L Pulse Oximetry 100 100 100 12/19/17 20:30 12/19/17 21:00 12/19/17 21:10 Temperature Pulse Rate 118 H 116 H Respiratory Rate 21 22 21 Blood Pressure 100/55 L Pulse Oximetry 100 100 100 12/19/17 22:00 12/19/17 22:10 12/19/17 23:00 Temperature Pulse Rate 113 H 110 H 113 H Respiratory Rate 20 20 21 Blood Pressure 101/55 L Pulse Oximetry 100 100 100 12/19/17 23:10 12/20/17 00:00 12/20/17 00:10 Temperature Pulse Rate 108 H 116 H 111 H Respiratory Rate 20 20 19 Blood Pressure 117/61 109/54 L Pulse Oximetry 100 100 100 12/20/17 01:00 12/20/17 01:10 12/20/17 01:12 Temperature Pulse Rate 111 H 115 H Respiratory Rate 19 23 18 Blood Pressure 110/56 L 110/56 L Pulse Oximetry 100 100 100 12/20/17 02:00 12/20/17 02:10 12/20/17 03:00 Temperature Pulse Rate 106 H 107 H 108 H Respiratory Rate 21 22 23 Blood Pressure 113/71 113/71 Pulse Oximetry 100 100 100 12/20/17 03:10 12/20/17 03:40 12/20/17 04:00 Temperature 100.1 F H Pulse Rate 117 H 103 H Respiratory Rate 23 19 22 Blood Pressure 108/58 L 110/61 Pulse Oximetry 100 100 100 12/20/17 04:10 12/20/17 05:00 12/20/17 05:10 Temperature Pulse Rate 103 H 101 H 103 H Respiratory Rate 22 49 H 46 H Blood Pressure 116/57 L 105/55 L Pulse Oximetry 100 100 100 12/20/17 06:00 12/20/17 06:10 12/20/17 08:20 Temperature Pulse Rate 103 H 95 H Respiratory Rate 26 H 47 H 19 Blood Pressure 110/61 Pulse Oximetry 100 100 100 12/20/17 11:50 Temperature Pulse Rate Respiratory Rate 20 Blood Pressure Pulse Oximetry 100 Intake & Output 12/19/17 12/20/17 12/20/17 18:59 06:59 18:59 Intake Total 978 / 978 1423 / 1423 100 / 100 Output Total 2875 / 2875 275 / 275 Balance -1897 / -1897 1148 / 1148 100 / 100 Weight 73 kg Intake: IV 350 / 350 665 / 665 100 / 100 Protonix Inj 80 MG In NS Inj 100 / 100 100 / 100 100 / 100 100 ML @ 10 mls/hr IV.CONT Q10H [facility] Rx#:[id number] Diprivan 1000 mg/100 ml Inj 1, 100 / 100 200 / 200 000 mg In 100 ml @ 5 MCG/KG/MIN 2.859 mls/hr IV.CONT TITRATE PRN Rx#:[id number] Ofirmev Inj 650 mg In 65 ml @ 65 / 65 400 mls/hr IV.SIG Q6H PRN Rx#: [id number] Mycamine Inj 100 MG In NS Inj 100 / 100 100 ML @ 100 mls/hr IV.SIG Q24H [facility] Rx#:[id number] Zosyn 2.25 GM Premix 50 ML @ 50 / 50 50 / 50 100 mls/hr IV.SIG Q8H [facility] Rx#: [id number] fentaNYL 10 mcg/mL Premix Drip 250 / 250 2,500 mcg In 250 ml @ 50 MCG/HR 5 mls/hr IV.SIG TITRATE PRN Rx #:[id number] Tube Feeding 568 / 568 758 / 758 Tube Irrigant 60 / 60 Output: Urine 0 / 0 Hemodialysis Amount 2500 / 2500 Wound Drainage 375 / 375 275 / 275 # 2 Right Abdomen 375 / 375 275 / 275 Other: Date of Last Bowel Movement 12/19/17 12/20/17 12/20/17 # Bowel Movements 1 3 - Constitutional no acute distress - Routine HEENT Exam Head: Present: normocephalic Eye: Present: EOMI ENT: Present: mucous membranes moist - Routine Neck Exam Present: trachea midline. Absent: JVD - Routine Respiratory Exam Present: patient mechanically ventilated. Absent: accessory muscle use, respiratory distress - Routine Cardiovascular Exam Present: RRR, tachycardia - Routine Abdominal Exam Present: wound. Absent: distended Comments: abdominal binder on. ZAINAB drain. - Routine Extremities Exam Absent: edema - Routine Psychiatric Exam Present: unable to assess - Urinary Catheter Management Indwelling Temp Sensing Catheter Cath placed during this visit: no <Jocelyn Crews - Last Filed: 12/20/17 12:52> Vital signs: Vital Signs 12/19/17 20:00 12/19/17 20:10 12/19/17 20:30 Temperature 102.5 F H Pulse Rate 124 H 123 H Respiratory Rate 23 23 21 Blood Pressure 118/59 L 118/59 L Pulse Oximetry 100 100 100 12/19/17 21:00 12/19/17 21:10 12/19/17 22:00 Temperature Pulse Rate 118 H 116 H 113 H Respiratory Rate 22 21 20 Blood Pressure 100/55 L Pulse Oximetry 100 100 100 12/19/17 22:10 12/19/17 23:00 12/19/17 23:10 Temperature Pulse Rate 110 H 113 H 108 H Respiratory Rate 20 21 20 Blood Pressure 101/55 L 117/61 Pulse Oximetry 100 100 100 12/20/17 00:00 12/20/17 00:10 12/20/17 01:00 Temperature Pulse Rate 116 H 111 H 111 H Respiratory Rate 20 19 19 Blood Pressure 109/54 L 110/56 L Pulse Oximetry 100 100 100 12/20/17 01:10 12/20/17 01:12 12/20/17 02:00 Temperature Pulse Rate 115 H 106 H Respiratory Rate 23 18 21 Blood Pressure 110/56 L 113/71 Pulse Oximetry 100 100 100 12/20/17 02:10 12/20/17 03:00 12/20/17 03:10 Temperature Pulse Rate 107 H 108 H 117 H Respiratory Rate 22 23 23 Blood Pressure 113/71 108/58 L Pulse Oximetry 100 100 100 12/20/17 03:40 12/20/17 04:00 12/20/17 04:10 Temperature 100.1 F H Pulse Rate 103 H 103 H Respiratory Rate 19 22 22 Blood Pressure 110/61 116/57 L Pulse Oximetry 100 100 100 12/20/17 05:00 12/20/17 05:10 12/20/17 06:00 Temperature Pulse Rate 101 H 103 H 103 H Respiratory Rate 49 H 46 H 26 H Blood Pressure 105/55 L Pulse Oximetry 100 100 100 12/20/17 06:10 12/20/17 08:00 12/20/17 08:10 Temperature 99.0 F Pulse Rate 95 H 100 H 98 H Respiratory Rate 47 H 34 H 36 H Blood Pressure 110/61 115/58 L Pulse Oximetry 100 100 100 12/20/17 08:20 12/20/17 09:00 12/20/17 09:10 Temperature Pulse Rate 98 H 99 H Respiratory Rate 19 40 H 40 H Blood Pressure 108/56 L Pulse Oximetry 100 100 100 12/20/17 10:00 12/20/17 10:10 12/20/17 11:00 Temperature Pulse Rate 103 H 102 H 104 H Respiratory Rate 41 H 41 H 42 H Blood Pressure 113/59 L Pulse Oximetry 100 100 100 12/20/17 11:10 12/20/17 11:50 12/20/17 12:00 Temperature 100.2 F H Pulse Rate 100 H 101 H Respiratory Rate 40 H 20 41 H Blood Pressure 115/59 L Pulse Oximetry 100 100 100 12/20/17 12:10 12/20/17 13:00 12/20/17 13:10 Temperature Pulse Rate 102 H 101 H 102 H Respiratory Rate 41 H 41 H 41 H Blood Pressure 118/61 124/62 Pulse Oximetry 100 100 100 12/20/17 14:00 12/20/17 14:10 12/20/17 15:00 Temperature Pulse Rate 100 H 97 H 96 H Respiratory Rate 41 H 40 H 39 H Blood Pressure 114/56 L Pulse Oximetry 100 100 100 12/20/17 15:10 12/20/17 16:00 12/20/17 16:03 Temperature 100.4 F H Pulse Rate 97 H 101 H Respiratory Rate 39 H 20 24 Blood Pressure 115/58 L Pulse Oximetry 100 100 100 12/20/17 16:10 12/20/17 17:00 12/20/17 17:10 Temperature Pulse Rate 100 H 103 H 103 H Respiratory Rate 20 20 26 H Blood Pressure 116/56 L 110/58 L Pulse Oximetry 99 100 100 12/20/17 18:00 Temperature Pulse Rate 100 H Respiratory Rate 25 H Blood Pressure Pulse Oximetry 100 Intake & Output 12/20/17 12/20/17 12/21/17 06:59 18:59 06:59 Intake Total 1473 / 1473 788 / 788 Output Total 275 / 275 275 / 275 Balance 1198 / 1198 513 / 513 Weight 73 kg Intake: IV 715 / 715 200 / 200 Protonix Inj 80 MG In NS Inj 100 / 100 100 / 100 100 ML @ 10 mls/hr IV.CONT Q10H [facility] Rx#:[id number] Diprivan 1000 mg/100 ml Inj 1, 200 / 200 100 / 100 000 mg In 100 ml @ 5 MCG/KG/MIN 2.859 mls/hr IV.CONT TITRATE PRN Rx#:[id number] Ofirmev Inj 650 mg In 65 ml @ 65 / 65 400 mls/hr IV.SIG Q6H PRN Rx#: [id number] Zosyn 2.25 GM Premix 50 ML @ 100 / 100 100 mls/hr IV.SIG Q8H [facility] Rx#: [id number] fentaNYL 10 mcg/mL Premix Drip 250 / 250 2,500 mcg In 250 ml @ 50 MCG/HR 5 mls/hr IV.SIG TITRATE PRN Rx #:[id number] Tube Feeding 758 / 758 498 / 498 Tube Irrigant 90 / 90 Output: Urine 0 / 0 Wound Drainage 275 / 275 275 / 275 # 2 Right Abdomen 275 / 275 275 / 275 Other: Date of Last Bowel Movement 12/20/17 12/20/17 # Bowel Movements 3 2 - Urinary Catheter Management Indwelling Temp Sensing Catheter Cath placed during this visit: no <JessicasouleymaneFilipe - Last Filed: 12/20/17 19:56> Assessment and Plan - Assessment (1) JACLYN (acute kidney injury) Code(s): N17.9 - Acute kidney failure, unspecified Status: Acute Plan: Anuric renal failure. He has become dialysis dependent. Patient dialyzed yesterday, 2.5 L removed. Hemodialysis scheduled for tomorrow. Monitor for recovery. Continue supportive care. Avoid nephrotoxic agents. Patient on PhosLo, monitor phosphorus levels intermittently. Today's phosphorus level 3.7. (2) Acute respiratory failure Code(s): J96.00 - Acute respiratory failure, unspecified whether with hypoxia or hypercapnia Status: Acute Qualifiers: Respiratory failure complication: hypoxia Qualified Code(s): J96.01 - Acute respiratory failure with hypoxia Plan: On the ventilator. Possible extubation this week. (3) Gastric perforation Code(s): K25.5 - Chronic or unspecified gastric ulcer with perforation Status : Resolved Plan: s/p surgery. Subtotal gastrectomy in [place]. In [facility] he had: Dinh-en-y esophagojejunostomy, feeding jejunostomy placement, diagnostic EGD, primary fascial closure. Date of procedure: 11/28/17 Negative bleeding scan - follow with GI, surgery. No immediate surgical plans at this point (4) Candidemia Code(s): B37.7 - Candidal sepsis Status: Acute Plan: On Micafungin. Dose medications appropriate to renal function. (5) DVT (deep venous thrombosis) Code(s): I82.409 - Acute embolism and thrombosis of unspecified deep veins of unspecified lower extremity Status: Acute Plan: DVT of bilateral upper extremities. (6) Anemia Code(s): D64.9 - Anemia, unspecified Status: Acute Plan: Could be multifactorial. Also could be due to renal failure. Bleeding scan negative. Hemoglobin is 6, 1 unit PRBC to be transfused today. <Jocelyn Crews - Last Filed: 12/20/17 12:52> - Assessment (1) JACLYN (acute kidney injury) Code(s): N17.9 - Acute kidney failure, unspecified Status: Acute (2) Acute respiratory failure Code(s): J96.00 - Acute respiratory failure, unspecified whether with hypoxia or hypercapnia Status: Acute Qualifiers: Respiratory failure complication: hypoxia Qualified Code(s): J96.01 - Acute respiratory failure with hypoxia (3) Gastric perforation Code(s): K25.5 - Chronic or unspecified gastric ulcer with perforation Status : Resolved (4) Candidemia Code(s): B37.7 - Candidal sepsis Status: Acute (5) DVT (deep venous thrombosis) Code(s): I82.409 - Acute embolism and thrombosis of unspecified deep veins of unspecified lower extremity Status: Acute (6) Anemia Code(s): D64.9 - Anemia, unspecified Status: Acute - Attending Attestation patient was seen and examined. Agree with above assessment and plan. <Filipe Robertson - Last Filed: 12/20/17 19:56>
[2017-12-21] MEDS: Propofol 1000 mg/100 ml Inj 1,000 MG/100 ML BOTTLE IV.CONT PRN ×3 (02:05→23:51)
--- NOTE | 2017-12-21 03:47 | XR ---
EXAM DATE: 12/21/2017 3:15 AM EST AGE/SEX: 47 years / Male INDICATIONS: Respiratory disease. CLINICAL DATA: This is the patient's subsequent encounter. Patient reports that signs and symptoms h ave been present for 2 weeks and indicates a pain score of Nonresponsive. MEDICAL/SURGICAL HISTORY: . Cardiac arrest. . Chest tube, left. Vas cath. Gastrectomy. Dinh e n Y esophagojejunostomy. COMPARISON: C, CHEST 1V SINGLE AP, 12/19/2017. . FINDINGS: Mild parenchymal consolidation seen left base and appears slightly improved in the interim. A small l eft pleural effusion is possible. No large effusion seen. No pneumothorax. Heart and mediastinum within normal limits. Endotracheal tube tip is approximately 2 cm above the [place]. There is a nasogastric tube present wit h tip near or slightly above the gastroesophageal junction. Right and left internal jugular central v enous catheters with tips in the superior vena cava. CONCLUSION: Mild parenchymal consolidation left base may be slightly improved but no other significant change. Na sogastric tube tip is slightly above the GE junction. Electronically signed by: Jordi James MD 12/21/2017 3:45 AM EST
[2017-12-21] MEDS: Insulin NovoLOG Aspart Correctional Sugar Inj SQ SCH ×4 (05:00→20:22)
[2017-12-21] MEDS: Piperacil/Tazo 2.25 GM Premix 50 ML IV.SIG SCH ×4 (05:01→21:35)
[2017-12-21] MEDS: Oral Hygiene Kit OROPHARYNG SCH ×4 (05:01→20:21)
[2017-12-21 05:26] LABS: Baso # (Auto) 0.2 th/mm3 (0.0-0.2); Baso % (Auto) 1.1 % (0.0-2.0); Eos # (Auto) 0.9 th/mm3 (0.0-0.4); Eos % (Auto) 4.1 % (0.0-4.0); Hematocrit 22.8 % (39.0-51.0); Hemoglobin 7.6 gm/dL (13.0-17.0); Lymph # (Auto) 1.4 th/mm3 (1.0-4.8); Lymph % (Auto) 6.4 % (9.0-44.0); Mean Corpuscular HGB Conc 33.4 % (32.0-36.0); Mean Corpuscular Volume 86.7 fL (80.0-100.0); Mean Platelet Volume 8.9 fL (7.0-11.0); Mono # (Auto) 2.7 th/mm3 (0.0-0.9); Mono % (Auto) 12.8 % (0.0-8.0); Neut # (Auto) 16.1 th/mm3 (1.8-7.7); Neut % (Auto) 75.6 % (16.0-70.0); Platelet Count 295 th/mm3 (150-450); Red Blood Count 2.64 mil/mm3 (4.50-5.90); Red Cell Distribution Width 16.5 % (11.6-17.2); White Blood Count 21.3 th/mm3 (4.0-11.0)
[2017-12-21 05:53] LABS: Alanine Aminotransferase 94 U/L (12-78); Albumin 1.6 g/dL (3.4-5.0); Alkaline Phosphatase 156 U/L (45-117); Anion Gap 15 meq/L (5-15); Aspartate Aminotransferase 94 U/L (15-37); Blood Urea Nitrogen 88 mg/dL (7-18); Calcium 7.5 mg/dL (8.5-10.1); Carbon Dioxide 23.4 meq/L (21.0-32.0); Chloride 107 meq/L (98-107); Glomerular Filtration Rate 11 mL/min (>89); Glucose,Random 93 mg/dL (74-106); Magnesium 2.3 mg/dL (1.5-2.5); Phosphorus 5.5 mg/dL (2.5-4.9); Potassium 3.1 meq/L (3.5-5.1); Sodium 145 meq/L (136-145); Total Protein 5.2 g/dL (6.4-8.2)
[2017-12-21 08:03] LABS: Eosinophils 2 % (0-4); Lymphocytes 7 % (9-44); Monocytes 8 % (0-8)
[2017-12-21 08:04] LABS: Platelet Estimate Normal (Normal); Platelet Morphology Normal (Normal)
[2017-12-21] MEDS: hydrALAZINE 50 MG Tablet PO SCH ×4 (08:15→17:06)
[2017-12-21] MEDS: Calcium Acetate 667 MG Capsule PO SCH ×4 (08:15→17:06)
[2017-12-21] MEDS: Pantoprazole Inj 80 MG in Sodium Chlor 0.9% Inj 100 ML IV.CONT SCH ×3 (08:16→17:07)
[2017-12-21] MEDS: Chlorhexidine 0.12% Oral Kit 15 ML UDC OROPHARYNG SCH ×2 (08:16→20:23)
--- NOTE | 2017-12-21 09:21 | P.PNCC ---
Subjective Subjective Remarks/Hospital Course: Patient was recently admitted to [facility] 11/22 and transferred to [facility] 11/26/17 after the following hospital course: 47-year-old -[place] male with reportedly no past medical or past surgical history who was admitted to hospitalist service 11/22/17 after presenting with abdominal pain, nausea, vomiting. He had CT abd/pelvis with massive gastric distention. NG tube had been placed. I was called to patient's bedside for CODE BLUE PEA arrest. CPR was ongoing and patient had massive abdominal distension and gastric regurgitant in the airway. He was emergently intubated and large amount of gastric secretions suctioned from oropharynx. After 21 minutes of CPR, ROSC was obtained and he was profoundly hypotensive. Continued aggressive fluid resuscitation and initiated dopamine. He was transferred to [facility] where CVL and R radial art line were placed and he was given 7 L of crystalloid and albumin. CXR demonstrated pneumoperitoneum and Dr. Martin Gudino was called emergently and he immediately contacted OR for emergent ex lap. He had intraabdominal hypertension with IAP of 40 mmHg, though fortunately was able to be ventilated adequately after rocuronium 50 mg IV and was transferred to OR. Dr. Martin Gudino took to the operating room early in the morning on 11/23 and discovered tension pneumoperitoneum, massive gastric distension, ischemia of the proximal 2/3 of the stomach and large gastric perforation with massive intraperitoneal contamination with food particles. Dr. Isaacs placed 2 NGT and decompressed 2 L of succus. Patient had initial improvement in vital signs in the immediate postoperative period, however he subsequently became hypotensive requiring upward titration of levophed and addition of vasopressin and stress dose hydrocortisone. He remains on levophed 10 mcg/min, neosynephrine 80 mcg/ min, vasopressin 0.04 units/min with overall vasopressor requirement weaning overnight. He is oliguric and creatinine is continuing to climb. He was given 2 L of crystalloid and albumin overnight. He does have significant fluid losses with combination of abdominal dressing and NGT output, so I will give an additional L of crystalloid now to monitor hourly response as he certainly does not appear volume overloaded. Nonetheless Flotrac numbers are suggesting adequate volume status and we may be seeing the consequence of ischemic ATN. May ultimately require HD, however not at this time. Abdomen remains open and plan is to re-explore 11/25. 11/25: Patient has acceptable hemodynamics by Flotrac but remains septic with requirements for phenylephrine 200 mics per minute, Levophed 8 mics per minute and vasopressin 0.04 units/min for blood pressure support. This has improved overnight and the Bhavesh-Synephrine support has been weaned off completely. Acid base balance is acceptable. ATN has developed which will undoubtedly require hemodialysis. Potassium level is normal. He is at increased risk for an anesthetic now but there is an urgent need to check for residual gastric necrosis. 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 Since the source control surgery, the maintenance of normal acid-base balance has been less difficult. Patient remains anuric with a rising creatinine above 6.0. He is clearly ahead on volume and will benefit from dialysis. A 2 lumen hemodialysis catheter was placed on 11/25 and has been packed with dilute heparin solution. The right internal jugular central line is been in place for 4 days and accessed multiple times. The femoral art line has been in for 4 days. Shock liver was apparent after the cardiac arrest reflecting a transaminitis, elevated bilirubin, and prolonged INR. The INR has remained normal following the transfusion of 4 units of fresh frozen plasma prior to surgery yesterday. A 10% dextrose infusion continues because of ongoing problems with hypoglycemia. Thrombocytopenia at 37,000 persists. He has remained on antibiotic coverage with Pipracil/tazobactam and fungal coverage with fluconazole, all adjusted for renal failure. Present vasopressor requirements include levophed at 7 mics per minute and vasopressin at 0.04 units/min. The chest x-ray is consistent with minor aspiration at the time of his preoperative cardiac arrest on the floor and cultures have subsequently grown Klebsiella, pansensitive. The operative note will clarify the extent of the surgery but in essence the distal esophagus is stapled off and marked with 2 Prolene sutures. The antrum of the stomach is oversewn. Most of the stomach has been removed. The abdomen is open with a VAC dressing applied. Subjective: 11/29: Bowel was in discontinuity following subtotal gastrectomy and patient was transferred to [facility]. On reexploration 11/28 he underwent Dinh-en-y esophagojejunostomy, feeding jejunostomy placement, diagnostic EGD, primary fascial closure. Wound vac was applied to abdomen (though currently wet to dry dressing in place upon arrival). He was reportedly found to have candidemia and was started on micafungin and has undergone ophtho eval. Lines including CVL, Vascath and art line have all been changed at [facility] (though not clear when). He remains on mechanical ventilation and has been weaned off pressors. He was found to have BUE DVTs and is on heparin drip. He is on TPN and has been started on trickle tube feeds with Nepro via jejunostomy. NGT is to [facility]. He underwent HD postoperatively on 11/28. He has now been transferred back to [facility] for ongoing management. I have updated his father and stepmother. 11/30: Patient re-admitted s/p transfer from [facility] overnight, otherwise no acute issues. Scheduled to undergo HD today. 12/01: T-max 101.7, leukocytosis to 27,000 with bandemia. Now 3 days following Dinh-en-Y reconstruction of GI tract following sub-total gastrectomy for gastric necrosis. All new lines placed after diagnosis of candidemia. TPN infusing, jejunostomy at trickle flow and can be increased slowly per general surgery. 12/02: Marked leukocytosis with bandemia persists. Afebrile over last 24 hours. Leave NG tube across the esophageal anastomosis and surgical service will direct timing of contrast study about 7 days following surgery. Continue with spontaneous breathing trials. 12/03: extubated yesterday. since then, has not followed commands, and does not talk. appears to have clinically an aphasia, although his uremia or severe hypoactive delirium could present this way. purposeful movements. will obtain MRI to rule out acute ischemia, as this appears to be a new mental status change (11/29 /[facility] notes state interactive on ventilator). 12/04: reintubated overnight: more output from ZAINAB drains. hgb dropped to 7 this AM: receiving 1 unit prbc. MRI negative for acute change. EEG ordered today to rule out subclinical status epilepticus. also concern overnight for aspiration event. 12/05: T-max 99. WBC 24,000. Reintubated yesterday for respiratory failure probably related to aspiration. Trickle feeding continues through jejunostomy. Nasogastric tube is through the anastomosis and is to low intermittent. 12/06: Afebrile. WBC 26,000. Bandemia has largely resolved. There are bilateral pleural effusions which may need to be tapped to rule out infection or leak. Both lower lobes are consolidated on CAT scan, probably representing compressive atelectasis from the effusions. 12/07: White count remains elevated at 25,000. Total parenteral nutrition infusing and tolerated. Altered mental status persists, possibly related to the cardiac arrest on the floor prior to transfer to the ICU. 12/08: Tolerating total parenteral nutrition with good glucose control. Leukocytosis persists. Fluid tap from left chest bit cloudy, cultures pending. Maintaining adequate gas exchange on lower levels of fractional inspired oxygen. Aim for extubation trial again soon. 12/09: Patient considerably less edematous over the past several days following successful dialysis runs. Continually fails attempts at weaning parameters and desaturation. Left chest drainage is no growth by culture. White blood cell count remains elevated. 12/10: Remains intubated. WBC count elevated but stable. Left chest tube with 260 mL output in 24 hours. BUN/creatinine remains elevated 12/11: Remains intubated sedated hemoglobin dropped to 5.8 today. RN has noted lower GI bleed. Protonix IV every 12 started and GI consulted. Transfuse 2 units PRBC. Keep n.p.o. discussed with Dr. Wellington 12/12: Patient remains intubated sedated for vent synchrony. Hemoglobin stable 7.5. Endoscopy negative yesterday CT abdomen pelvis no active bleeding. Hemodynamically remained stable. Receiving hemodialysis at this time. Left chest tube with high output 450 mL in 24 hours. Attempt weaning trials starting today 12/13: Patient continues to lose blood. Hemoglobin 5.5. Plan to get colonoscopy today. Continues to have melanotic stools. The night RN aspirated blood from jejunostomy tube. Enteroscopy yesterday was unremarkable. Transfusing 3 units of PRBC repeat hemoglobin at 2 PM. No significant bloody output from ZAINAB drains. Will discuss with general surgery 12/14: Remains intubated sedated hemoglobin 7.9 today 1 unit PRBC ordered. Can melanotic stools or NG tube coffee-ground today. EGD yesterday showed friable mucosa at the esophageal anastomotic junction which was injected by GI. Otherwise endoscopies including colonoscopies unremarkable. Hemodynamically remained stable. Discussed extensively with GI and general surgery yesterday 12/15: Patient continues to have significant melanotic stools. Hemoglobin dropped to 7.8 and patient received 1 unit PRBC follow-up hemoglobin only 7.9. Additional 1 unit PRBC ordered. Status post EGD colonoscopy-essentially unremarkable except irritation at the esophageal anastomotic site. Bleeding is most likely small intestinal 12/16: Critically ill but slightly more stable today no obvious melanotic stools. According to the bedside RN when the tube feeds were disconnected there was some bleeding from the jejunostomy tube. Hemoglobin remained stable 7.8. Discussed with Dr. Wellington general surgeon, and his opinion bleeding likely from mucosal sloughing. Initiate spontaneous breathing trials 12/17: Remains critical hemoglobin dropped to 5.4 getting 3 units of PRBC. Extensive workup including EGD colonoscopy and bleeding scans x2 have been negative for active bleed. This seems to be most likely small intestinal bleed from mucosal bleed. Also it was not that the ZAINAB drain has color similar to tube feeds. I discussed with Dr. Wellington he will evaluate the patient afternoon. If there is suspicions will get CT scan after contrast through the J -tube 12/18: More awake alert follows commands weakly. No obvious bleeding hemoglobin 7.3. Will transfuse 1 unit PRBC. 12/19: Gastrointestinal bleeding appears to have stopped. Hemoglobin now stable. Tube feeds infusing. No more transfusions necessary. 12/20: Patient remains intubated sedated, hemoglobin is 6 will transfuse 1 unit PRBC. Hemodialysis scheduled for tomorrow. Appears weak pale. Very weakly follows commands on upper extremity. 12/21: We will try to extubate after dialysis today. Anticipate the tracheostomy at this point will be best for the patient but family would like to proceed with attempted extubation again. Objective Vital Signs / I&O: Vital Signs 12/20/17 10:00 12/20/17 10:10 12/20/17 11:00 Temperature Pulse Rate 103 H 102 H 104 H Respiratory Rate 41 H 41 H 42 H Blood Pressure 113/59 L Pulse Oximetry 100 100 100 12/20/17 11:10 12/20/17 11:50 12/20/17 12:00 Temperature 100.2 F H Pulse Rate 100 H 101 H Respiratory Rate 40 H 20 41 H Blood Pressure 115/59 L Pulse Oximetry 100 100 100 12/20/17 12:10 12/20/17 13:00 12/20/17 13:10 Temperature Pulse Rate 102 H 101 H 102 H Respiratory Rate 41 H 41 H 41 H Blood Pressure 118/61 124/62 Pulse Oximetry 100 100 100 12/20/17 14:00 12/20/17 14:10 12/20/17 15:00 Temperature Pulse Rate 100 H 97 H 96 H Respiratory Rate 41 H 40 H 39 H Blood Pressure 114/56 L Pulse Oximetry 100 100 100 12/20/17 15:10 12/20/17 16:00 12/20/17 16:03 Temperature 100.4 F H Pulse Rate 97 H 101 H Respiratory Rate 39 H 20 24 Blood Pressure 115/58 L Pulse Oximetry 100 100 100 12/20/17 16:10 12/20/17 17:00 12/20/17 17:10 Temperature Pulse Rate 100 H 103 H 103 H Respiratory Rate 20 20 26 H Blood Pressure 116/56 L 110/58 L Pulse Oximetry 99 100 100 12/20/17 18:00 12/20/17 18:10 12/20/17 19:00 Temperature Pulse Rate 100 H 105 H 106 H Respiratory Rate 25 H 31 H 27 H Blood Pressure 112/58 L Pulse Oximetry 100 100 100 12/20/17 19:10 12/20/17 20:00 12/20/17 20:10 Temperature 99.0 F Pulse Rate 106 H 114 H 114 H Respiratory Rate 42 H 35 H 39 H Blood Pressure 121/56 L 119/59 L Pulse Oximetry 99 100 100 12/20/17 20:13 12/20/17 21:00 12/20/17 21:10 Temperature Pulse Rate 113 H 112 H Respiratory Rate 22 28 H 29 H Blood Pressure 125/58 L Pulse Oximetry 100 100 100 12/20/17 22:00 12/20/17 22:10 12/20/17 22:39 Temperature 98.4 F Pulse Rate 108 H 109 H 112 H Respiratory Rate 25 H 36 H 17 Blood Pressure 119/56 L 119/56 L Pulse Oximetry 100 100 100 12/20/17 23:00 12/20/17 23:06 12/20/17 23:09 Temperature Pulse Rate 108 H 107 H Respiratory Rate 23 29 H 17 Blood Pressure 122/61 Pulse Oximetry 100 100 12/20/17 23:10 12/20/17 23:14 12/21/17 00:00 Temperature 98.0 F Pulse Rate 112 H 111 H Respiratory Rate 29 H 21 28 H Blood Pressure 127/60 Pulse Oximetry 100 100 100 12/21/17 00:10 12/21/17 01:00 12/21/17 01:10 Temperature Pulse Rate 112 H 107 H 106 H Respiratory Rate 33 H 36 H 43 H Blood Pressure 128/61 127/61 Pulse Oximetry 100 100 100 12/21/17 02:00 12/21/17 02:10 12/21/17 02:11 Temperature 98.7 F Pulse Rate 107 H 108 H 109 H Respiratory Rate 34 H 31 H 22 Blood Pressure 128/59 L 128/59 L Pulse Oximetry 100 100 100 12/21/17 03:00 12/21/17 03:10 12/21/17 04:00 Temperature 99.0 F Pulse Rate 101 H 101 H 98 H Respiratory Rate 19 25 H 22 Blood Pressure 125/59 L Pulse Oximetry 100 100 100 12/21/17 04:10 12/21/17 04:25 12/21/17 05:00 Temperature Pulse Rate 99 H 106 H Respiratory Rate 26 H 22 23 Blood Pressure 130/64 Pulse Oximetry 100 100 100 12/21/17 05:10 12/21/17 06:00 12/21/17 06:10 Temperature Pulse Rate 104 H 101 H 103 H Respiratory Rate 26 H 44 H 37 H Blood Pressure 129/60 128/67 Pulse Oximetry 100 99 99 12/21/17 08:39 Temperature Pulse Rate Respiratory Rate 18 Blood Pressure Pulse Oximetry Intake & Output 12/20/17 12/21/17 12/21/17 18:59 06:59 18:59 Intake Total 938 / 938 1823 / 1823 Output Total 275 / 275 650 / 650 Balance 663 / 663 1173 / 1173 Weight 72.8 kg Intake: IV 350 / 350 550 / 550 Protonix Inj 80 MG In NS Inj 100 / 100 100 / 100 100 ML @ 10 mls/hr IV.CONT Q10H COLE Rx#:[id number] Diprivan 1000 mg/100 ml Inj 1, 100 / 100 100 / 100 000 mg In 100 ml @ 5 MCG/KG/MIN 2.859 mls/hr IV.CONT TITRATE PRN Rx#:[id number] Mycamine Inj 100 MG In NS Inj 100 / 100 100 ML @ 100 mls/hr IV.SIG Q24H COLE Rx#:[id number] Zosyn 2.25 GM Premix 50 ML @ 50 / 50 100 / 100 100 mls/hr IV.SIG Q8H COLE Rx#: [id number] fentaNYL 10 mcg/mL Premix Drip 250 / 250 2,500 mcg In 250 ml @ 50 MCG/HR 5 mls/hr IV.SIG TITRATE PRN Rx #:[id number] Tube Feeding 498 / 498 353 / 353 Tube Irrigant 90 / 90 Water Bolus Amount 120 / 120 Intake (Blood Product) Amt 800 / 800 Rbc As-3 Leukoreduced Unit 400 / 400 [id number] Rbc As-3 Leukoreduced Unit 400 / 400 [id number] Output: Urine 0 / 0 0 / 0 Stool 350 / 350 Pleural Fluid 0 / 0 Wound Drainage 275 / 275 300 / 300 # 2 Right Abdomen 275 / 275 300 / 300 Other: Date of Last Bowel Movement 12/20/17 12/21/17 # Bowel Movements 2 Result Diagrams: 12/21/17 05:15 12/21/17 05:15 Objective Remarks: GEN: Chronically ill-appearing, on vent awake HEENT: NCAT, pupils 2 mm and reactive bilaterally. NECK: RIJ vasc-cath and LIJ TLC present, clean/ dry/ intact CARDIO: NSR, normal S1, S2, regular rhythm, neck veins full PULM: On PRVC mode ventilation. Scattered rhonchi persist, decreased breath sounds both bases. GI: Dressings dry and clean. ZAINAB #1 removed, ZAINAB #2 with cloudy drainage. Abdomen soft. Bowel sounds present. No guarding SKIN: No rashes or lesions, dry NEURO: Not following commands today. Moves 4 limbs spontaneously but only weakly. Assessment and Plan - Problem List (1) Gastric perforation Code(s): K25.5 - Chronic or unspecified gastric ulcer with perforation Status : Resolved (2) Status post total gastrectomy and Dinh-en-Y esophagojejunal anastomosis Code(s): Z90.3 - Acquired absence of stomach [part of]; Z98.0 - Intestinal bypass and anastomosis status Status: Acute (3) Ischemic hepatitis Code(s): K75.9 - Inflammatory liver disease, unspecified Status: Acute (4) Gastric necrosis Code(s): K31.89 - Other diseases of stomach and duodenum Status: Resolved (5) Thrombocytopenia Code(s): D69.6 - Thrombocytopenia, unspecified Status: Acute (6) Acute bilateral deep vein thrombosis (DVT) of upper extremities Code(s): I82.623 - Acute embolism and thrombosis of deep veins of upper extremity, bilateral Status: Acute (7) Anemia Code(s): D64.9 - Anemia, unspecified Status: Acute (8) Leukocytosis Code(s): D72.829 - Elevated white blood cell count, unspecified Status: Acute (9) Candidemia Code(s): B37.7 - Candidal sepsis Status: Acute (10) On total parenteral nutrition (TPN) Code(s): Z78.9 - Other specified health status Status: Acute (11) Hx of cardiac arrest Code(s): Z86.74 - Personal history of sudden cardiac arrest Status: Resolved (12) Acute hemodialysis patient Code(s): Z99.2 - Dependence on renal dialysis Status: Acute (13) JACLYN (acute kidney injury) Code(s): N17.9 - Acute kidney failure, unspecified Status: Acute (14) Aspiration pneumonia Code(s): J69.0 - Pneumonitis due to inhalation of food and vomit Status: Acute (15) Acute respiratory failure Code(s): J96.00 - Acute respiratory failure, unspecified whether with hypoxia or hypercapnia Status: Acute - Assessment and Plan Plan: NEURO: Metabolic encephalopathy On Fentanyl/propofol drips for sedation, pain control. Improving neuro exam, continue daily sedation vacation Following commands x4 Remains encephalopathic 12/21 RESP: Acute respiratory failure Left pleural effusion PRVC, Ventilator Bundle Spontaneous breathing trials as tolerated-failed today, will not be able to extubate due to generalized weakness Scheduled and as needed breathing treatments Left pigtail chest tube removed 12/18 CV: Cardiac arrest 11/23/17 (PEA arrest due to shock secondary to acute gastric perf and tension pneumoperitoneum) Septic shock, resolved Now off pressors. Hemodynamic monitoring Use as needed medication for hypertension Continued fluid removal with hemodialysis GI: s/p anterior gastric perforation with tension pneumoperitoneum status post ex lap with primary repair with stapler 11/23 On second look 11/25 he was found to have gastric necrosis requiring subtotal gastrectomy and placement of AB Thera VAC dressing. The bowel was in discontinuity and he was transferred to [facility]. On 11/28 reexploration with Dinh-en-y esophagojejunostomy, feeding jejunostomy placement, diagnostic EGD, primary fascial closure. Gastric necrosis , Ischemic hepatopathy GIB with blood loss anemia NGT to LIWS, leave above esophageal anastomosis to avoid irritation Bleeding appears to be small bowel mucosal bleeding at this point discussed with Dr. Wellington Has feeding jejunostomy and advance tube feeds with Nepro at 50 ml per hour EGD, enteroscopy 12/12/2017 unremarkable, colonoscopy 12/13/2017 unremarkable. Bleeding scan did not show any particular site of bleeding ZAINAB drains in place #1 anterior to anastomosis, now removed, #2 posterior to the anastomosis. Management per general surgery. Had right upper quadrant ultrasound on 11/27/17 that demonstrated contracted gallbladder with sludge. No evidence of cholecystitis. Echogenicity in right liver related to focal fatty change or altered perfusion, patent vascularity. Protonix GTT for GI bleed. FEN/RENAL: JACLYN secondary to ischemic ATN HD as started 11/26 at [place]. Has R IJ Vascath. Monitor I/O and electrolytes. Nephrology following Continue scheduled dialysis ID: Gastric perforation with large amount particulate peritoneal contamination 11/23 Acute Aspiration pneumonia Candidemia (C [place] 11/26 at culture) Continue Zosyn/micafungin. ID following Dr. Millan Patient evaluated by ophthalmology prior to transfer. Do not see an ophthalmology note in the transfer documentation, requested document. Requested culture data from [facility]. Follow-up cultures here Sputum culture 11/24 with pansensitive Klebsiella pneumonia HEME: Anemia requiring transfusion Thrombocytopenia-resolved Bilateral upper extremity DVTs Transfuse 3 units PRBC 12/13, transfuse 1 unit PRBC 12/14/2017, 2U 12/15. GI workup as above. 2U PRBC 12/18/17 1U PRBC today for hemoglobin of 6, additional transfusion tomorrow with hemodialysis, there is no evidence of hemolysis U/s 11/26 BUE - thrombus R axillary, brachial and basilic veins and thrombus in left axillary and left brachial veins. U/s bilateral lower extremities 11/26 at [facility] negative from common femoral to popliteal vein levels. Arrived on heparin drip, due to GI bleed and anemia all anticoagulation is being held Hematology consult was obtained at [facility] and recommended heparin drip and transfuse prn for platelets <50k. ENDO: Monitor Glucose q4 hours and use low dose insulin sliding scale as indicated. PROPH: s/q heparin held due to blood loss anemia, GIB. Protonix for stress ulcer prophylaxis. DVT prophylaxis. ACCESS: R IJ vascath , L IJ CVL. All existing lines were replaced at [facility]. Left IJ line accidentally was dislodged 12/23/2017, new left IJ line placed FULL CODE Overall impression: Multiple ongoing medical problems. Was critical with continued GI bleed and anemia requiring transfusion. Most likely small intestinal mucosal bleeding. Continue transfusions. Probably will need tracheostomy but will try to extubate one more time to assess airway. Attempt to place him in an LTAC soon. (6) Acute bilateral deep vein thrombosis (DVT) of upper extremities Qualifiers: Affected thrombotic vein of extremity: brachial Qualified Code(s): I82.623 - Acute embolism and thrombosis of deep veins of upper extremity, bilateral (15) Acute respiratory failure Qualifiers: Respiratory failure complication: hypoxia Qualified Code(s): J96.01 - Acute respiratory failure with hypoxia
--- NOTE | 2017-12-21 09:35 | P.PNGS ---
Subjective Interval history: Awake Following commands Answering yes and no questions Physical Exam Vital signs: Vital Signs 12/20/17 10:00 12/20/17 10:10 12/20/17 11:00 Temperature Pulse Rate 103 H 102 H 104 H Respiratory Rate 41 H 41 H 42 H Blood Pressure 113/59 L Pulse Oximetry 100 100 100 12/20/17 11:10 12/20/17 11:50 12/20/17 12:00 Temperature 100.2 F H Pulse Rate 100 H 101 H Respiratory Rate 40 H 20 41 H Blood Pressure 115/59 L Pulse Oximetry 100 100 100 12/20/17 12:10 12/20/17 13:00 12/20/17 13:10 Temperature Pulse Rate 102 H 101 H 102 H Respiratory Rate 41 H 41 H 41 H Blood Pressure 118/61 124/62 Pulse Oximetry 100 100 100 12/20/17 14:00 12/20/17 14:10 12/20/17 15:00 Temperature Pulse Rate 100 H 97 H 96 H Respiratory Rate 41 H 40 H 39 H Blood Pressure 114/56 L Pulse Oximetry 100 100 100 12/20/17 15:10 12/20/17 16:00 12/20/17 16:03 Temperature 100.4 F H Pulse Rate 97 H 101 H Respiratory Rate 39 H 20 24 Blood Pressure 115/58 L Pulse Oximetry 100 100 100 12/20/17 16:10 12/20/17 17:00 12/20/17 17:10 Temperature Pulse Rate 100 H 103 H 103 H Respiratory Rate 20 20 26 H Blood Pressure 116/56 L 110/58 L Pulse Oximetry 99 100 100 12/20/17 18:00 12/20/17 18:10 12/20/17 19:00 Temperature Pulse Rate 100 H 105 H 106 H Respiratory Rate 25 H 31 H 27 H Blood Pressure 112/58 L Pulse Oximetry 100 100 100 12/20/17 19:10 12/20/17 20:00 12/20/17 20:10 Temperature 99.0 F Pulse Rate 106 H 114 H 114 H Respiratory Rate 42 H 35 H 39 H Blood Pressure 121/56 L 119/59 L Pulse Oximetry 99 100 100 12/20/17 20:13 12/20/17 21:00 12/20/17 21:10 Temperature Pulse Rate 113 H 112 H Respiratory Rate 22 28 H 29 H Blood Pressure 125/58 L Pulse Oximetry 100 100 100 12/20/17 22:00 12/20/17 22:10 12/20/17 22:39 Temperature 98.4 F Pulse Rate 108 H 109 H 112 H Respiratory Rate 25 H 36 H 17 Blood Pressure 119/56 L 119/56 L Pulse Oximetry 100 100 100 12/20/17 23:00 12/20/17 23:06 12/20/17 23:09 Temperature Pulse Rate 108 H 107 H Respiratory Rate 23 29 H 17 Blood Pressure 122/61 Pulse Oximetry 100 100 12/20/17 23:10 12/20/17 23:14 12/21/17 00:00 Temperature 98.0 F Pulse Rate 112 H 111 H Respiratory Rate 29 H 21 28 H Blood Pressure 127/60 Pulse Oximetry 100 100 100 12/21/17 00:10 12/21/17 01:00 12/21/17 01:10 Temperature Pulse Rate 112 H 107 H 106 H Respiratory Rate 33 H 36 H 43 H Blood Pressure 128/61 127/61 Pulse Oximetry 100 100 100 12/21/17 02:00 12/21/17 02:10 12/21/17 02:11 Temperature 98.7 F Pulse Rate 107 H 108 H 109 H Respiratory Rate 34 H 31 H 22 Blood Pressure 128/59 L 128/59 L Pulse Oximetry 100 100 100 12/21/17 03:00 12/21/17 03:10 12/21/17 04:00 Temperature 99.0 F Pulse Rate 101 H 101 H 98 H Respiratory Rate 19 25 H 22 Blood Pressure 125/59 L Pulse Oximetry 100 100 100 12/21/17 04:10 12/21/17 04:25 12/21/17 05:00 Temperature Pulse Rate 99 H 106 H Respiratory Rate 26 H 22 23 Blood Pressure 130/64 Pulse Oximetry 100 100 100 12/21/17 05:10 12/21/17 06:00 12/21/17 06:10 Temperature Pulse Rate 104 H 101 H 103 H Respiratory Rate 26 H 44 H 37 H Blood Pressure 129/60 128/67 Pulse Oximetry 100 99 99 12/21/17 08:39 Temperature Pulse Rate Respiratory Rate 18 Blood Pressure Pulse Oximetry Intake & Output 12/20/17 12/21/17 12/21/17 18:59 06:59 18:59 Intake Total 938 / 938 1823 / 1823 Output Total 275 / 275 650 / 650 Balance 663 / 663 1173 / 1173 Weight 72.8 kg Intake: IV 350 / 350 550 / 550 Protonix Inj 80 MG In NS Inj 100 / 100 100 / 100 100 ML @ 10 mls/hr IV.CONT Q10H [facility] Rx#:[id number] Diprivan 1000 mg/100 ml Inj 1, 100 / 100 100 / 100 000 mg In 100 ml @ 5 MCG/KG/MIN 2.859 mls/hr IV.CONT TITRATE PRN Rx#:[id number] Mycamine Inj 100 MG In NS Inj 100 / 100 100 ML @ 100 mls/hr IV.SIG Q24H [facility] Rx#:[id number] Zosyn 2.25 GM Premix 50 ML @ 50 / 50 100 / 100 100 mls/hr IV.SIG Q8H [facility] Rx#: [id number] fentaNYL 10 mcg/mL Premix Drip 250 / 250 2,500 mcg In 250 ml @ 50 MCG/HR 5 mls/hr IV.SIG TITRATE PRN Rx #:[id number] Tube Feeding 498 / 498 353 / 353 Tube Irrigant 90 / 90 Water Bolus Amount 120 / 120 Intake (Blood Product) Amt 800 / 800 Rbc As-3 Leukoreduced Unit 400 / 400 [id number] Rbc As-3 Leukoreduced Unit 400 / 400 [id number] Output: Urine 0 / 0 0 / 0 Stool 350 / 350 Pleural Fluid 0 / 0 Wound Drainage 275 / 275 300 / 300 # 2 Right Abdomen 275 / 275 300 / 300 Other: Date of Last Bowel Movement 12/20/17 12/21/17 # Bowel Movements 2 Narrative: Alert and awake Abd: soft; all dressings recently changes---c/d/i; binder in place; J tube with TF at goal; ZAINAB with serous drainage Continues to have BUE edema but does appear slightly improved Rectal tube in place with brown stool - Urinary Catheter Management Indwelling Temp Sensing Catheter Cath placed during this visit: no Results - Labs 12/21/17 05:15 12/21/17 05:15 Laboratory Results - last 24 hr 12/04/17 12/16/17 12/17/17 10:46 05:40 07:02 WBC RBC Hgb Hct MCV MCH MCHC RDW Plt Count MPV Prelim Diff (Auto) Neut % (Auto) Lymph % (Auto) [place] % (Auto) Eos % (Auto) Baso % (Auto) Neut # (Auto) Lymph # (Auto) [place] # (Auto) Eos # (Auto) Baso # (Auto) WBC Differential Seg Neuts % (Manual) Band Neuts % (Manual) Lymphocytes % (Manual) Monocytes % (Manual) Eosinophils % (Manual) Basophils % (Manual) Abs Neuts (Manual) Differential Comment Platelet Estimate Platelet Morphology Sodium Potassium Chloride Carbon Dioxide Anion Gap BUN Creatinine Estimated GFR Random Glucose Calcium Phosphorus Magnesium Total Bilirubin AST ALT Alkaline Phosphatase Total Protein Albumin Blood Type Antibody Screen Antibody Identification Direct Antiglob Test MTS Gel Crossmatch See Detail See Detail See Detail 12/18/17 12/18/17 12/20/17 07:19 15:52 10:27 WBC RBC Hgb Hct MCV MCH MCHC RDW Plt Count MPV Prelim Diff (Auto) Neut % (Auto) Lymph % (Auto) [place] % (Auto) Eos % (Auto) Baso % (Auto) Neut # (Auto) Lymph # (Auto) [place] # (Auto) Eos # (Auto) Baso # (Auto) WBC Differential Seg Neuts % (Manual) Band Neuts % (Manual) Lymphocytes % (Manual) Monocytes % (Manual) Eosinophils % (Manual) Basophils % (Manual) Abs Neuts (Manual) Differential Comment Platelet Estimate Platelet Morphology Sodium Potassium Chloride Carbon Dioxide Anion Gap BUN Creatinine Estimated GFR Random Glucose Calcium Phosphorus Magnesium Total Bilirubin AST ALT Alkaline Phosphatase Total Protein Albumin Blood Type A Positive Antibody Screen Positive H Antibody Identification Direct Antiglob Test Weakly positive H MTS Gel Crossmatch See Detail See Detail See Detail 12/20/17 12/21/17 12/21/17 15:44 05:15 05:15 WBC 21.3 H RBC 2.64 L Hgb 7.6 L Hct 22.8 L MCV 86.7 MCH 29.0 MCHC 33.4 RDW 16.5 Plt Count 295 MPV 8.9 Prelim Diff (Auto) Slide review pending Neut % (Auto) 75.6 H Lymph % (Auto) 6.4 L [place] % (Auto) 12.8 H Eos % (Auto) 4.1 H Baso % (Auto) 1.1 Neut # (Auto) 16.1 H Lymph # (Auto) 1.4 [place] # (Auto) 2.7 H Eos # (Auto) 0.9 H Baso # (Auto) 0.2 WBC Differential Manual diff final Seg Neuts % (Manual) 71 H Band Neuts % (Manual) 11 H Lymphocytes % (Manual) 7 L Monocytes % (Manual) 8 Eosinophils % (Manual) 2 Basophils % (Manual) 1 Abs Neuts (Manual) 17.5 H Differential Comment . Platelet Estimate Normal Platelet Morphology Normal Sodium 145 Potassium 3.1 L Chloride 107 Carbon Dioxide 23.4 Anion Gap 15 BUN 88 H Creatinine 6.85 H Estimated GFR 11 L Random Glucose 93 Calcium 7.5 L Phosphorus 5.5 H D Magnesium 2.3 Total Bilirubin 0.6 AST 94 H ALT 94 H Alkaline Phosphatase 156 H Total Protein 5.2 L Albumin 1.6 L Blood Type Antibody Screen Antibody Identification Anti-E Direct Antiglob Test MTS Gel Crossmatch - Imaging Imaging: ITS Impressions Head MRI 12/03/17 00:00 CONCLUSION: 1. Minimal nonspecific periventricular white matter changes. 2. No restricted diffusion to suggest an acute ischemic event. 3. No evidence for significant ischemic changes. Chest CT 12/04/17 00:06 CONCLUSION: 1. Left greater than right pleural effusions and basilar atelectasis. 2. No hemorrhage or hematoma demonstrated. 3. Distended and fluid-filled esophagus. No wall thickening. Patient is status post gastrectomy. Nasogastric tube is at the GE junction. 4. Body wall edema/anasarca. Abdomen X-Ray 12/08/17 00:00 CONCLUSION: 1. 2 left-sided abdominal catheters. 2. Nonspecific bowel gas pattern. Abdomen/Pelvis CT 12/13/17 00:00 CONCLUSION: 1. New proximal small bowel dilatation. No discrete transition point. Contrast is seen in the distal small bowel. Findings may represent ileus or partial obstruction. 2. Postsurgical findings with surgical drains in the left upper quadrant. Free fluid is seen in the left upper quadrant. Loculated rounded 5 cm area of fluid with thin peripheral enhancement also noted just inferior to the surgical drains. 3. Prominent left lower lobe pulmonary consolidation and small left pleural effusion. GI Bleed Scan Nuclear Medicine 12/15/17 00:00 CONCLUSION: No active bleeding demonstrated. Chest X-Ray 12/21/17 06:00 CONCLUSION: Mild parenchymal consolidation left base may be slightly improved but no other significant change. Nasogastric tube tip is slightly above the GE junction. Assessment and Plan - Assessment (1) Gastric perforation Code(s): K25.5 - Chronic or unspecified gastric ulcer with perforation Status : Resolved Plan: 47yo male s/p Exlap and gastrectomy for gastric perforation, s/p esophagojejunostomy at [facility] -Intubated---vent per [facility]; hopefully extubation after hemodialysis today; if not able to extubate by next week would likely need tracheostomy tube -TF at 50 cc via J tube ---tolerating -Hmg 7.6--improved from yesterday -S/p EGD/colonoscopy and NM bleeding scan negative -Continue to monitor/follow from surgery standpoint -Dialysis per Nephrology ---plan for treatment today which will hopefully optimize him for extubation after - Plan I personally evaluated the patient room 1313. He is been on CPAP all day looks very comfortable. He is awake and alert. His jejunostomy tube is clogged. Discussed with bedside RN and Claudine SANCHEZ. Plan upper GI small bowel follow-through through nasogastric tube. Make sure there is no sign of obstruction and no leak from his previous surgery. If that is the case he can either be fed through his nasogastric tube or have it removed and allow him to eat. Would leave present J-tube in position and in case he has difficulty and needs a J-tube exchange. This will likely be easier to do than try and unclog the jejunostomy tube. His wounds are healing well. His peripheral edema is decreased. The exam, history, and the medical decision-making described in the above note were completed with the assistance of the mid-level provider. I reviewed and agree with the findings presented. I attest that I had a [id number] encounter with the patient on the same day, and personally performed and documented my assessment and findings in the medical record.
--- NOTE | 2017-12-21 11:27 | P.PNNP ---
Subjective Interval history: Patient was seen, no distress, family at bedside. Patient was seen on dialysis, on 4K, blood flow rate of 350 ml/min, UF goal of 4 L. Potassium was 3.1, hope to be improved after dialysis. Per the nurse the patient is to be extubated today after dialysis. If it's unsuccessful a tracheostomy will be done. Patient's Hemoglobin is 7.6, received 1 unit of PRBC yesterday. <Jocelyn Crews - Last Filed: 12/21/17 11:27> Physical Exam Vital signs: Vital Signs 12/20/17 11:50 12/20/17 12:00 12/20/17 12:10 Temperature 100.2 F H Pulse Rate 101 H 102 H Respiratory Rate 20 41 H 41 H Blood Pressure 118/61 Pulse Oximetry 100 100 100 12/20/17 13:00 12/20/17 13:10 12/20/17 14:00 Temperature Pulse Rate 101 H 102 H 100 H Respiratory Rate 41 H 41 H 41 H Blood Pressure 124/62 Pulse Oximetry 100 100 100 12/20/17 14:10 12/20/17 15:00 12/20/17 15:10 Temperature Pulse Rate 97 H 96 H 97 H Respiratory Rate 40 H 39 H 39 H Blood Pressure 114/56 L 115/58 L Pulse Oximetry 100 100 100 12/20/17 16:00 12/20/17 16:03 12/20/17 16:10 Temperature 100.4 F H Pulse Rate 101 H 100 H Respiratory Rate 20 24 20 Blood Pressure 116/56 L Pulse Oximetry 100 100 99 12/20/17 17:00 12/20/17 17:10 12/20/17 18:00 Temperature Pulse Rate 103 H 103 H 100 H Respiratory Rate 20 26 H 25 H Blood Pressure 110/58 L Pulse Oximetry 100 100 100 12/20/17 18:10 12/20/17 19:00 12/20/17 19:10 Temperature Pulse Rate 105 H 106 H 106 H Respiratory Rate 31 H 27 H 42 H Blood Pressure 112/58 L 121/56 L Pulse Oximetry 100 100 99 12/20/17 20:00 12/20/17 20:10 12/20/17 20:13 Temperature 99.0 F Pulse Rate 114 H 114 H Respiratory Rate 35 H 39 H 22 Blood Pressure 119/59 L Pulse Oximetry 100 100 100 12/20/17 21:00 12/20/17 21:10 12/20/17 22:00 Temperature Pulse Rate 113 H 112 H 108 H Respiratory Rate 28 H 29 H 25 H Blood Pressure 125/58 L Pulse Oximetry 100 100 100 12/20/17 22:10 12/20/17 22:39 12/20/17 23:00 Temperature 98.4 F Pulse Rate 109 H 112 H 108 H Respiratory Rate 36 H 17 23 Blood Pressure 119/56 L 119/56 L Pulse Oximetry 100 100 100 12/20/17 23:06 12/20/17 23:09 12/20/17 23:10 Temperature Pulse Rate 107 H 112 H Respiratory Rate 29 H 17 29 H Blood Pressure 122/61 127/60 Pulse Oximetry 100 100 12/20/17 23:14 12/21/17 00:00 12/21/17 00:10 Temperature 98.0 F Pulse Rate 111 H 112 H Respiratory Rate 21 28 H 33 H Blood Pressure 128/61 Pulse Oximetry 100 100 100 12/21/17 01:00 12/21/17 01:10 12/21/17 02:00 Temperature Pulse Rate 107 H 106 H 107 H Respiratory Rate 36 H 43 H 34 H Blood Pressure 127/61 Pulse Oximetry 100 100 100 12/21/17 02:10 12/21/17 02:11 12/21/17 03:00 Temperature 98.7 F Pulse Rate 108 H 109 H 101 H Respiratory Rate 31 H 22 19 Blood Pressure 128/59 L 128/59 L Pulse Oximetry 100 100 100 12/21/17 03:10 12/21/17 04:00 12/21/17 04:10 Temperature 99.0 F Pulse Rate 101 H 98 H 99 H Respiratory Rate 25 H 22 26 H Blood Pressure 125/59 L 130/64 Pulse Oximetry 100 100 100 12/21/17 04:25 12/21/17 05:00 12/21/17 05:10 Temperature Pulse Rate 106 H 104 H Respiratory Rate 22 23 26 H Blood Pressure 129/60 Pulse Oximetry 100 100 100 12/21/17 06:00 12/21/17 06:10 12/21/17 08:39 Temperature Pulse Rate 101 H 103 H Respiratory Rate 44 H 37 H 18 Blood Pressure 128/67 Pulse Oximetry 99 99 Intake & Output 12/20/17 12/21/17 12/21/17 18:59 06:59 18:59 Intake Total 938 / 938 1823 / 1823 Output Total 275 / 275 650 / 650 Balance 663 / 663 1173 / 1173 Weight 72.8 kg Intake: IV 350 / 350 550 / 550 Protonix Inj 80 MG In NS Inj 100 / 100 100 / 100 100 ML @ 10 mls/hr IV.CONT Q10H [facility] Rx#:[id number] Diprivan 1000 mg/100 ml Inj 1, 100 / 100 100 / 100 000 mg In 100 ml @ 5 MCG/KG/MIN 2.859 mls/hr IV.CONT TITRATE PRN Rx#:[id number] Mycamine Inj 100 MG In NS Inj 100 / 100 100 ML @ 100 mls/hr IV.SIG Q24H [facility] Rx#:[id number] Zosyn 2.25 GM Premix 50 ML @ 50 / 50 100 / 100 100 mls/hr IV.SIG Q8H [facility] Rx#: [id number] fentaNYL 10 mcg/mL Premix Drip 250 / 250 2,500 mcg In 250 ml @ 50 MCG/HR 5 mls/hr IV.SIG TITRATE PRN Rx #:[id number] Tube Feeding 498 / 498 353 / 353 Tube Irrigant 90 / 90 Water Bolus Amount 120 / 120 Intake (Blood Product) Amt 800 / 800 Rbc As-3 Leukoreduced Unit 400 / 400 [id number] Rbc As-3 Leukoreduced Unit 400 / 400 [id number] Output: Urine 0 / 0 0 / 0 Stool 350 / 350 Pleural Fluid 0 / 0 Wound Drainage 275 / 275 300 / 300 # 2 Right Abdomen 275 / 275 300 / 300 Other: Date of Last Bowel Movement 12/20/17 12/21/17 # Bowel Movements 2 - Constitutional no acute distress - Routine HEENT Exam Head: Present: normocephalic Eye: Present: EOMI ENT: Present: mucous membranes moist - Routine Neck Exam Absent: JVD, trachea midline, tracheal deviation - Routine Respiratory Exam Present: patient mechanically ventilated. Absent: accessory muscle use, respiratory distress - Routine Cardiovascular Exam Present: RRR, tachycardia - Routine Abdominal Exam Present: wound, drain Comments: Patient has ZAINAB drain. Patient has abdominal in place. - Routine Extremities Exam Present: edema, vascular access Comments: Bilateral upper extremity edema. - Detailed Neurological Exam: Coma Scale Eye Opening: To sound Verbal Response: None Motor Response: None Althea Coma Scale Total: 5 - Routine Psychiatric Exam Present: unable to assess - Urinary Catheter Management Indwelling Temp Sensing Catheter Cath placed during this visit: no <Jocelyn Crews - Last Filed: 12/21/17 11:27> Vital signs: Vital Signs 12/20/17 15:00 12/20/17 15:10 12/20/17 16:00 Temperature 100.4 F H Pulse Rate 96 H 97 H 101 H Respiratory Rate 39 H 39 H 20 Blood Pressure 115/58 L Pulse Oximetry 100 100 100 12/20/17 16:03 12/20/17 16:10 12/20/17 17:00 Temperature Pulse Rate 100 H 103 H Respiratory Rate 24 20 20 Blood Pressure 116/56 L Pulse Oximetry 100 99 100 12/20/17 17:10 12/20/17 18:00 12/20/17 18:10 Temperature Pulse Rate 103 H 100 H 105 H Respiratory Rate 26 H 25 H 31 H Blood Pressure 110/58 L 112/58 L Pulse Oximetry 100 100 100 12/20/17 19:00 12/20/17 19:10 12/20/17 20:00 Temperature 99.0 F Pulse Rate 106 H 106 H 114 H Respiratory Rate 27 H 42 H 35 H Blood Pressure 121/56 L Pulse Oximetry 100 99 100 12/20/17 20:10 12/20/17 20:13 12/20/17 21:00 Temperature Pulse Rate 114 H 113 H Respiratory Rate 39 H 22 28 H Blood Pressure 119/59 L Pulse Oximetry 100 100 100 12/20/17 21:10 12/20/17 22:00 12/20/17 22:10 Temperature Pulse Rate 112 H 108 H 109 H Respiratory Rate 29 H 25 H 36 H Blood Pressure 125/58 L 119/56 L Pulse Oximetry 100 100 100 12/20/17 22:39 12/20/17 23:00 12/20/17 23:06 Temperature 98.4 F Pulse Rate 112 H 108 H 107 H Respiratory Rate 17 23 29 H Blood Pressure 119/56 L 122/61 Pulse Oximetry 100 100 100 12/20/17 23:09 12/20/17 23:10 12/20/17 23:14 Temperature Pulse Rate 112 H Respiratory Rate 17 29 H 21 Blood Pressure 127/60 Pulse Oximetry 100 100 12/21/17 00:00 12/21/17 00:10 12/21/17 01:00 Temperature 98.0 F Pulse Rate 111 H 112 H 107 H Respiratory Rate 28 H 33 H 36 H Blood Pressure 128/61 Pulse Oximetry 100 100 100 12/21/17 01:10 12/21/17 02:00 12/21/17 02:10 Temperature Pulse Rate 106 H 107 H 108 H Respiratory Rate 43 H 34 H 31 H Blood Pressure 127/61 128/59 L Pulse Oximetry 100 100 100 12/21/17 02:11 12/21/17 03:00 12/21/17 03:10 Temperature 98.7 F Pulse Rate 109 H 101 H 101 H Respiratory Rate 22 19 25 H Blood Pressure 128/59 L 125/59 L Pulse Oximetry 100 100 100 12/21/17 04:00 12/21/17 04:10 12/21/17 04:25 Temperature 99.0 F Pulse Rate 98 H 99 H Respiratory Rate 22 26 H 22 Blood Pressure 130/64 Pulse Oximetry 100 100 100 12/21/17 05:00 12/21/17 05:10 12/21/17 06:00 Temperature Pulse Rate 106 H 104 H 101 H Respiratory Rate 23 26 H 44 H Blood Pressure 129/60 Pulse Oximetry 100 100 99 12/21/17 06:10 12/21/17 08:39 12/21/17 12:51 Temperature Pulse Rate 103 H Respiratory Rate 37 H 18 18 Blood Pressure 128/67 Pulse Oximetry 99 97 Intake & Output 12/20/17 12/21/17 12/21/17 18:59 06:59 18:59 Intake Total 938 / 938 1823 / 1823 250 / 250 Output Total 275 / 275 650 / 650 Balance 663 / 663 1173 / 1173 250 / 250 Weight 72.8 kg Intake: IV 350 / 350 550 / 550 250 / 250 Protonix Inj 80 MG In NS Inj 100 / 100 100 / 100 100 / 100 100 ML @ 10 mls/hr IV.CONT Q10H [facility] Rx#:[id number] Diprivan 1000 mg/100 ml Inj 1, 100 / 100 100 / 100 000 mg In 100 ml @ 5 MCG/KG/MIN 2.859 mls/hr IV.CONT TITRATE PRN Rx#:[id number] Mycamine Inj 100 MG In NS Inj 100 / 100 100 / 100 100 ML @ 100 mls/hr IV.SIG Q24H [facility] Rx#:[id number] Zosyn 2.25 GM Premix 50 ML @ 50 / 50 100 / 100 50 / 50 100 mls/hr IV.SIG Q8H [facility] Rx#: [id number] fentaNYL 10 mcg/mL Premix Drip 250 / 250 2,500 mcg In 250 ml @ 50 MCG/HR 5 mls/hr IV.SIG TITRATE PRN Rx #:[id number] Tube Feeding 498 / 498 353 / 353 Tube Irrigant 90 / 90 Water Bolus Amount 120 / 120 Intake (Blood Product) Amt 800 / 800 Rbc As-3 Leukoreduced Unit 400 / 400 [id number] Rbc As-3 Leukoreduced Unit 400 / 400 [id number] Output: Urine 0 / 0 0 / 0 Stool 350 / 350 Pleural Fluid 0 / 0 Wound Drainage 275 / 275 300 / 300 # 2 Right Abdomen 275 / 275 300 / 300 Other: Date of Last Bowel Movement 12/20/17 12/21/17 # Bowel Movements 2 - Urinary Catheter Management Indwelling Temp Sensing Catheter Cath placed during this visit: no <Filipe Robertson - Last Filed: 12/21/17 14:11> Assessment and Plan - Assessment (1) JACLYN (acute kidney injury) Code(s): N17.9 - Acute kidney failure, unspecified Status: Acute Plan: Anuric renal failure. He has become dialysis dependent. Patient was seen on dialysis, on 4K, blood flow rate of 350 ml/min, UF goal of 4 L. Potassium was 3.1, hope to be improved after dialysis. Monitor for recovery. Continue supportive care. Avoid nephrotoxic agents. Patient on PhosLo, monitor phosphorus levels intermittently. Today's phosphorus level 5.5. (2) Acute respiratory failure Code(s): J96.00 - Acute respiratory failure, unspecified whether with hypoxia or hypercapnia Status: Acute Qualifiers: Respiratory failure complication: hypoxia Qualified Code(s): J96.01 - Acute respiratory failure with hypoxia Plan: On the ventilator. Patient is to be extubated today after dialysis. If it's unsuccessful a tracheostomy will be done. (3) Gastric perforation Code(s): K25.5 - Chronic or unspecified gastric ulcer with perforation Status : Resolved Plan: s/p surgery. Subtotal gastrectomy in [place]. In [facility] he had: Dinh-en-y esophagojejunostomy, feeding jejunostomy placement, diagnostic EGD, primary fascial closure. Date of procedure: 11/28/17 Negative bleeding scan - follow with GI, surgery. No immediate surgical plans at this point (4) Candidemia Code(s): B37.7 - Candidal sepsis Status: Acute Plan: On Micafungin. Dose medications appropriate to renal function. (5) DVT (deep venous thrombosis) Code(s): I82.409 - Acute embolism and thrombosis of unspecified deep veins of unspecified lower extremity Status: Acute Plan: DVT of bilateral upper extremities. (6) Anemia Code(s): D64.9 - Anemia, unspecified Status: Acute Plan: Could be multifactorial. Also could be due to renal failure. Bleeding scan negative. Patient's Hemoglobin is 7.6, received 1 unit of PRBC yesterday. <Jocelyn Crews - Last Filed: 12/21/17 11:27> - Assessment (1) JACLYN (acute kidney injury) Code(s): N17.9 - Acute kidney failure, unspecified Status: Acute (2) Acute respiratory failure Code(s): J96.00 - Acute respiratory failure, unspecified whether with hypoxia or hypercapnia Status: Acute Qualifiers: Respiratory failure complication: hypoxia Qualified Code(s): J96.01 - Acute respiratory failure with hypoxia (3) Gastric perforation Code(s): K25.5 - Chronic or unspecified gastric ulcer with perforation Status : Resolved (4) Candidemia Code(s): B37.7 - Candidal sepsis Status: Acute (5) DVT (deep venous thrombosis) Code(s): I82.409 - Acute embolism and thrombosis of unspecified deep veins of unspecified lower extremity Status: Acute (6) Anemia Code(s): D64.9 - Anemia, unspecified Status: Acute - Attending Attestation patient was seen and examined. Needs new Vascath. Will resume dialysis support after new VasCath is ready for use. <Fliipe Robertson - Last Filed: 12/21/17 14:11>
--- NOTE | 2017-12-21 12:47 | P.PNID ---
Subjective Remarks: Patient is awake. Following commands. On the vent. D/W RN. Vas cath removed inadvertently. BP stable. WBC remain elevated. RN reports redness at the abdomen around the gastric tube. Abdominal drainage catheter has straw colored drainage. Reintubated 12/04 Antibiotics: Micafungin Zosyn Allergies/Adverse Reactions: Allergies No Known Allergies Allergy (Verified 11/22/17 02:38) Objective Vital Signs 12/20/17 13:00 12/20/17 13:10 12/20/17 14:00 Temperature Pulse Rate 101 H 102 H 100 H Respiratory Rate 41 H 41 H 41 H Blood Pressure 124/62 Pulse Oximetry 100 100 100 12/20/17 14:10 12/20/17 15:00 12/20/17 15:10 Temperature Pulse Rate 97 H 96 H 97 H Respiratory Rate 40 H 39 H 39 H Blood Pressure 114/56 L 115/58 L Pulse Oximetry 100 100 100 12/20/17 16:00 12/20/17 16:03 12/20/17 16:10 Temperature 100.4 F H Pulse Rate 101 H 100 H Respiratory Rate 20 24 20 Blood Pressure 116/56 L Pulse Oximetry 100 100 99 12/20/17 17:00 12/20/17 17:10 12/20/17 18:00 Temperature Pulse Rate 103 H 103 H 100 H Respiratory Rate 20 26 H 25 H Blood Pressure 110/58 L Pulse Oximetry 100 100 100 12/20/17 18:10 12/20/17 19:00 12/20/17 19:10 Temperature Pulse Rate 105 H 106 H 106 H Respiratory Rate 31 H 27 H 42 H Blood Pressure 112/58 L 121/56 L Pulse Oximetry 100 100 99 12/20/17 20:00 12/20/17 20:10 12/20/17 20:13 Temperature 99.0 F Pulse Rate 114 H 114 H Respiratory Rate 35 H 39 H 22 Blood Pressure 119/59 L Pulse Oximetry 100 100 100 12/20/17 21:00 12/20/17 21:10 12/20/17 22:00 Temperature Pulse Rate 113 H 112 H 108 H Respiratory Rate 28 H 29 H 25 H Blood Pressure 125/58 L Pulse Oximetry 100 100 100 12/20/17 22:10 12/20/17 22:39 12/20/17 23:00 Temperature 98.4 F Pulse Rate 109 H 112 H 108 H Respiratory Rate 36 H 17 23 Blood Pressure 119/56 L 119/56 L Pulse Oximetry 100 100 100 12/20/17 23:06 12/20/17 23:09 12/20/17 23:10 Temperature Pulse Rate 107 H 112 H Respiratory Rate 29 H 17 29 H Blood Pressure 122/61 127/60 Pulse Oximetry 100 100 12/20/17 23:14 12/21/17 00:00 12/21/17 00:10 Temperature 98.0 F Pulse Rate 111 H 112 H Respiratory Rate 21 28 H 33 H Blood Pressure 128/61 Pulse Oximetry 100 100 100 12/21/17 01:00 12/21/17 01:10 12/21/17 02:00 Temperature Pulse Rate 107 H 106 H 107 H Respiratory Rate 36 H 43 H 34 H Blood Pressure 127/61 Pulse Oximetry 100 100 100 12/21/17 02:10 12/21/17 02:11 12/21/17 03:00 Temperature 98.7 F Pulse Rate 108 H 109 H 101 H Respiratory Rate 31 H 22 19 Blood Pressure 128/59 L 128/59 L Pulse Oximetry 100 100 100 12/21/17 03:10 12/21/17 04:00 12/21/17 04:10 Temperature 99.0 F Pulse Rate 101 H 98 H 99 H Respiratory Rate 25 H 22 26 H Blood Pressure 125/59 L 130/64 Pulse Oximetry 100 100 100 12/21/17 04:25 12/21/17 05:00 12/21/17 05:10 Temperature Pulse Rate 106 H 104 H Respiratory Rate 22 23 26 H Blood Pressure 129/60 Pulse Oximetry 100 100 100 12/21/17 06:00 12/21/17 06:10 12/21/17 08:39 Temperature Pulse Rate 101 H 103 H Respiratory Rate 44 H 37 H 18 Blood Pressure 128/67 Pulse Oximetry 99 99 Intake & Output 12/20/17 12/21/17 12/21/17 18:59 06:59 18:59 Intake Total 938 / 938 1823 / 1823 Output Total 275 / 275 650 / 650 Balance 663 / 663 1173 / 1173 Weight 72.8 kg Intake: IV 350 / 350 550 / 550 Protonix Inj 80 MG In NS Inj 100 / 100 100 / 100 100 ML @ 10 mls/hr IV.CONT Q10H [facility] Rx#:[id number] Diprivan 1000 mg/100 ml Inj 1, 100 / 100 100 / 100 000 mg In 100 ml @ 5 MCG/KG/MIN 2.859 mls/hr IV.CONT TITRATE PRN Rx#:[id number] Mycamine Inj 100 MG In NS Inj 100 / 100 100 ML @ 100 mls/hr IV.SIG Q24H [facility] Rx#:[id number] Zosyn 2.25 GM Premix 50 ML @ 50 / 50 100 / 100 100 mls/hr IV.SIG Q8H [facility] Rx#: [id number] fentaNYL 10 mcg/mL Premix Drip 250 / 250 2,500 mcg In 250 ml @ 50 MCG/HR 5 mls/hr IV.SIG TITRATE PRN Rx #:[id number] Tube Feeding 498 / 498 353 / 353 Tube Irrigant 90 / 90 Water Bolus Amount 120 / 120 Intake (Blood Product) Amt 800 / 800 Rbc As-3 Leukoreduced Unit 400 / 400 [id number] Rbc As-3 Leukoreduced Unit 400 / 400 [id number] Output: Urine 0 / 0 0 / 0 Stool 350 / 350 Pleural Fluid 0 / 0 Wound Drainage 275 / 275 300 / 300 # 2 Right Abdomen 275 / 275 300 / 300 Other: Date of Last Bowel Movement 12/20/17 12/21/17 # Bowel Movements 2 Lab - Hematology Results 12/20/17 12/21/17 04:10 05:15 WBC 21.7 H 21.3 H RBC 2.04 L 2.64 L Hgb 6.0 L* 7.6 L Hct 17.9 L* 22.8 L MCV 87.6 86.7 MCH 29.3 29.0 MCHC 33.5 33.4 RDW 15.9 16.5 Plt Count 263 295 MPV 9.4 8.9 Prelim Diff (Auto) Slide review pending Neut % (Auto) 75.6 H Lymph % (Auto) 6.4 L [place] % (Auto) 12.8 H Eos % (Auto) 4.1 H Baso % (Auto) 1.1 Neut # (Auto) 16.1 H Lymph # (Auto) 1.4 [place] # (Auto) 2.7 H Eos # (Auto) 0.9 H Baso # (Auto) 0.2 WBC Differential Manual diff final Seg Neuts % (Manual) 71 H Band Neuts % (Manual) 11 H Lymphocytes % (Manual) 7 L Monocytes % (Manual) 8 Eosinophils % (Manual) 2 Basophils % (Manual) 1 Abs Neuts (Manual) 17.5 H Differential Comment . Platelet Estimate Normal Platelet Morphology Normal Lab - Chemistry Results 12/19/17 12/19/17 12/20/17 13:36 20:22 00:47 Sodium Potassium Chloride Carbon Dioxide Anion Gap BUN Creatinine Estimated GFR POC Glucose 136 H 120 H 125 H Random Glucose Calcium Phosphorus Magnesium Total Bilirubin AST ALT Alkaline Phosphatase Total Protein Albumin 12/20/17 12/20/17 12/21/17 04:10 04:16 05:15 Sodium 146 H 145 Potassium 3.0 L 3.1 L Chloride 108 H 107 Carbon Dioxide 25.9 23.4 Anion Gap 12 15 BUN 64 H 88 H Creatinine 5.36 H 6.85 H Estimated GFR 14 L 11 L POC Glucose 133 H Random Glucose 111 H 93 Calcium 7.5 L 7.5 L Phosphorus 3.7 D 5.5 H D Magnesium 2.2 2.3 Total Bilirubin 0.5 0.6 AST 79 H 94 H ALT 86 H 94 H Alkaline Phosphatase 126 H 156 H Total Protein 5.0 L 5.2 L Albumin 1.8 L 1.6 L Imaging: ITS Impressions Head MRI 12/03/17 00:00 CONCLUSION: 1. Minimal nonspecific periventricular white matter changes. 2. No restricted diffusion to suggest an acute ischemic event. 3. No evidence for significant ischemic changes. Chest CT 12/04/17 00:06 CONCLUSION: 1. Left greater than right pleural effusions and basilar atelectasis. 2. No hemorrhage or hematoma demonstrated. 3. Distended and fluid-filled esophagus. No wall thickening. Patient is status post gastrectomy. Nasogastric tube is at the GE junction. 4. Body wall edema/anasarca. Abdomen X-Ray 12/08/17 00:00 CONCLUSION: 1. 2 left-sided abdominal catheters. 2. Nonspecific bowel gas pattern. Abdomen/Pelvis CT 12/13/17 00:00 CONCLUSION: 1. New proximal small bowel dilatation. No discrete transition point. Contrast is seen in the distal small bowel. Findings may represent ileus or partial obstruction. 2. Postsurgical findings with surgical drains in the left upper quadrant. Free fluid is seen in the left upper quadrant. Loculated rounded 5 cm area of fluid with thin peripheral enhancement also noted just inferior to the surgical drains. 3. Prominent left lower lobe pulmonary consolidation and small left pleural effusion. GI Bleed Scan Nuclear Medicine 12/15/17 00:00 CONCLUSION: No active bleeding demonstrated. Chest X-Ray 12/21/17 06:00 CONCLUSION: Mild parenchymal consolidation left base may be slightly improved but no other significant change. Nasogastric tube tip is slightly above the GE junction. Physical Exam: PHYSICAL EXAMINATION: GENERAL: Patient on the vent. Sedated. Awake. HEENT: EOMI, [place]. Mucosa is moist. NECK: Supple. LUNGS: Decreased breath sounds. Slight rhonchi at the bases. HEART: Regular S1, S2. No murmur. ABDOMEN: Decreased bowel sounds. Erythema around gastric tube. Green/charles drainage around the gastric tube. (+) tenderness. ZAINAB drain has serous drainage. EXTREMITIES: No clubbing or cyanosis. Both upper extremities has edema. SKIN: No diffuse rash. NEUROLOGIC: unable to fully assess, intubated. Nods head. PSYCHIATRIC: Unable to assess. Assessment and Plan - Plan IMPRESSION: 1. Candidemia following gastric perforation and gastric ischemia. Blood culture at [facility] in [place] on 11/26 had Starr glabrata. Repeat blood culture is negative. 2. Status post abdominal surgery. ? abdominal wall infection at Gastric feeding tube site. ? cause of WBC elevation and fever. 3. Acute respiratory failure. left pleural effusion. 4. Aspiration. 5. Acute kidney disease. 5. Recent cardiac arrest. 6. Leukocytosis. White blood cell count remains elevated. 7. Abx associated diarrhea, bowel wall thickening c.diff neg. RECOMMENDATIONS: 1. Continue micafungin for candidemia. 2. Continue piperacillin/tazobactam. 3. Start Vancomycin. Will give dose today. 4. Culture drainage at the Gastric feeding tube site. 5. Continue to monitor white blood cell count. 6 Monitor temperature.
[2017-12-21] MEDS ORDERED: Vancomycin Inj 1,000 MG in Sodium Chlor 0.9% Inj 250 ML IV.SIG ONE (13:00)
[2017-12-21] MEDS: fentaNYL 10 mcg/mL Premix Drip 2,500 MCG/250 ML BAG IV.SIG PRN (23:07)
[2017-12-22] MEDS: Insulin NovoLOG Aspart Correctional Sugar Inj SQ SCH ×6 (00:36→20:40)
[2017-12-22] MEDS: Oral Hygiene Kit OROPHARYNG SCH ×4 (00:36→16:46)
[2017-12-22] MEDS: Pantoprazole Inj 80 MG in Sodium Chlor 0.9% Inj 100 ML IV.CONT SCH ×2 (03:12→14:23)
[2017-12-22] MEDS: Piperacil/Tazo 2.25 GM Premix 50 ML IV.SIG SCH ×3 (05:56→21:09)
[2017-12-22 05:58] LABS: Albumin 1.7 g/dL (3.4-5.0); Carbon Dioxide 24.3 meq/L (21.0-32.0); Phosphorus 7.1 mg/dL (2.5-4.9); Potassium 3.2 meq/L (3.5-5.1); Vancomycin,Random 17.8 Comment
--- NOTE | 2017-12-22 08:00 | P.PNCC ---
Subjective Subjective Remarks/Hospital Course: Patient was recently admitted to [facility] 11/22 and transferred to [facility] 11/26/17 after the following hospital course: 47-year-old -[place] male with reportedly no past medical or past surgical history who was admitted to hospitalist service 11/22/17 after presenting with abdominal pain, nausea, vomiting. He had CT abd/pelvis with massive gastric distention. NG tube had been placed. I was called to patient's bedside for CODE BLUE PEA arrest. CPR was ongoing and patient had massive abdominal distension and gastric regurgitant in the airway. He was emergently intubated and large amount of gastric secretions suctioned from oropharynx. After 21 minutes of CPR, ROSC was obtained and he was profoundly hypotensive. Continued aggressive fluid resuscitation and initiated dopamine. He was transferred to [facility] where CVL and R radial art line were placed and he was given 7 L of crystalloid and albumin. CXR demonstrated pneumoperitoneum and Dr. Martin Gudino was called emergently and he immediately contacted OR for emergent ex lap. He had intraabdominal hypertension with IAP of 40 mmHg, though fortunately was able to be ventilated adequately after rocuronium 50 mg IV and was transferred to OR. Dr. Martin Gudino took to the operating room early in the morning on 11/23 and discovered tension pneumoperitoneum, massive gastric distension, ischemia of the proximal 2/3 of the stomach and large gastric perforation with massive intraperitoneal contamination with food particles. Dr. Isaacs placed 2 NGT and decompressed 2 L of succus. Patient had initial improvement in vital signs in the immediate postoperative period, however he subsequently became hypotensive requiring upward titration of levophed and addition of vasopressin and stress dose hydrocortisone. He remains on levophed 10 mcg/min, neosynephrine 80 mcg/ min, vasopressin 0.04 units/min with overall vasopressor requirement weaning overnight. He is oliguric and creatinine is continuing to climb. He was given 2 L of crystalloid and albumin overnight. He does have significant fluid losses with combination of abdominal dressing and NGT output, so I will give an additional L of crystalloid now to monitor hourly response as he certainly does not appear volume overloaded. Nonetheless Flotrac numbers are suggesting adequate volume status and we may be seeing the consequence of ischemic ATN. May ultimately require HD, however not at this time. Abdomen remains open and plan is to re-explore 11/25. 11/25: Patient has acceptable hemodynamics by Flotrac but remains septic with requirements for phenylephrine 200 mics per minute, Levophed 8 mics per minute and vasopressin 0.04 units/min for blood pressure support. This has improved overnight and the Bhavesh-Synephrine support has been weaned off completely. Acid base balance is acceptable. ATN has developed which will undoubtedly require hemodialysis. Potassium level is normal. He is at increased risk for an anesthetic now but there is an urgent need to check for residual gastric necrosis. 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 Since the source control surgery, the maintenance of normal acid-base balance has been less difficult. Patient remains anuric with a rising creatinine above 6.0. He is clearly ahead on volume and will benefit from dialysis. A 2 lumen hemodialysis catheter was placed on 11/25 and has been packed with dilute heparin solution. The right internal jugular central line is been in place for 4 days and accessed multiple times. The femoral art line has been in for 4 days. Shock liver was apparent after the cardiac arrest reflecting a transaminitis, elevated bilirubin, and prolonged INR. The INR has remained normal following the transfusion of 4 units of fresh frozen plasma prior to surgery yesterday. A 10% dextrose infusion continues because of ongoing problems with hypoglycemia. Thrombocytopenia at 37,000 persists. He has remained on antibiotic coverage with Pipracil/tazobactam and fungal coverage with fluconazole, all adjusted for renal failure. Present vasopressor requirements include levophed at 7 mics per minute and vasopressin at 0.04 units/min. The chest x-ray is consistent with minor aspiration at the time of his preoperative cardiac arrest on the floor and cultures have subsequently grown Klebsiella, pansensitive. The operative note will clarify the extent of the surgery but in essence the distal esophagus is stapled off and marked with 2 Prolene sutures. The antrum of the stomach is oversewn. Most of the stomach has been removed. The abdomen is open with a VAC dressing applied. Subjective: 11/29: Bowel was in discontinuity following subtotal gastrectomy and patient was transferred to [facility]. On reexploration 11/28 he underwent Dinh-en-y esophagojejunostomy, feeding jejunostomy placement, diagnostic EGD, primary fascial closure. Wound vac was applied to abdomen (though currently wet to dry dressing in place upon arrival). He was reportedly found to have candidemia and was started on micafungin and has undergone ophtho eval. Lines including CVL, Vascath and art line have all been changed at [facility] (though not clear when). He remains on mechanical ventilation and has been weaned off pressors. He was found to have BUE DVTs and is on heparin drip. He is on TPN and has been started on trickle tube feeds with Nepro via jejunostomy. NGT is to [facility]. He underwent HD postoperatively on 11/28. He has now been transferred back to [facility] for ongoing management. I have updated his father and stepmother. 11/30: Patient re-admitted s/p transfer from [facility] overnight, otherwise no acute issues. Scheduled to undergo HD today. 12/01: T-max 101.7, leukocytosis to 27,000 with bandemia. Now 3 days following Dinh-en-Y reconstruction of GI tract following sub-total gastrectomy for gastric necrosis. All new lines placed after diagnosis of candidemia. TPN infusing, jejunostomy at trickle flow and can be increased slowly per general surgery. 12/02: Marked leukocytosis with bandemia persists. Afebrile over last 24 hours. Leave NG tube across the esophageal anastomosis and surgical service will direct timing of contrast study about 7 days following surgery. Continue with spontaneous breathing trials. 12/03: extubated yesterday. since then, has not followed commands, and does not talk. appears to have clinically an aphasia, although his uremia or severe hypoactive delirium could present this way. purposeful movements. will obtain MRI to rule out acute ischemia, as this appears to be a new mental status change (11/29 /[facility] notes state interactive on ventilator). 12/04: reintubated overnight: more output from ZAINAB drains. hgb dropped to 7 this AM: receiving 1 unit prbc. MRI negative for acute change. EEG ordered today to rule out subclinical status epilepticus. also concern overnight for aspiration event. 12/05: T-max 99. WBC 24,000. Reintubated yesterday for respiratory failure probably related to aspiration. Trickle feeding continues through jejunostomy. Nasogastric tube is through the anastomosis and is to low intermittent. 12/06: Afebrile. WBC 26,000. Bandemia has largely resolved. There are bilateral pleural effusions which may need to be tapped to rule out infection or leak. Both lower lobes are consolidated on CAT scan, probably representing compressive atelectasis from the effusions. 12/07: White count remains elevated at 25,000. Total parenteral nutrition infusing and tolerated. Altered mental status persists, possibly related to the cardiac arrest on the floor prior to transfer to the ICU. 12/08: Tolerating total parenteral nutrition with good glucose control. Leukocytosis persists. Fluid tap from left chest bit cloudy, cultures pending. Maintaining adequate gas exchange on lower levels of fractional inspired oxygen. Aim for extubation trial again soon. 12/09: Patient considerably less edematous over the past several days following successful dialysis runs. Continually fails attempts at weaning parameters and desaturation. Left chest drainage is no growth by culture. White blood cell count remains elevated. 12/10: Remains intubated. WBC count elevated but stable. Left chest tube with 260 mL output in 24 hours. BUN/creatinine remains elevated 12/11: Remains intubated sedated hemoglobin dropped to 5.8 today. RN has noted lower GI bleed. Protonix IV every 12 started and GI consulted. Transfuse 2 units PRBC. Keep n.p.o. discussed with Dr. Wellington 12/12: Patient remains intubated sedated for vent synchrony. Hemoglobin stable 7.5. Endoscopy negative yesterday CT abdomen pelvis no active bleeding. Hemodynamically remained stable. Receiving hemodialysis at this time. Left chest tube with high output 450 mL in 24 hours. Attempt weaning trials starting today 12/13: Patient continues to lose blood. Hemoglobin 5.5. Plan to get colonoscopy today. Continues to have melanotic stools. The night RN aspirated blood from jejunostomy tube. Enteroscopy yesterday was unremarkable. Transfusing 3 units of PRBC repeat hemoglobin at 2 PM. No significant bloody output from ZAINAB drains. Will discuss with general surgery 12/14: Remains intubated sedated hemoglobin 7.9 today 1 unit PRBC ordered. Can melanotic stools or NG tube coffee-ground today. EGD yesterday showed friable mucosa at the esophageal anastomotic junction which was injected by GI. Otherwise endoscopies including colonoscopies unremarkable. Hemodynamically remained stable. Discussed extensively with GI and general surgery yesterday 12/15: Patient continues to have significant melanotic stools. Hemoglobin dropped to 7.8 and patient received 1 unit PRBC follow-up hemoglobin only 7.9. Additional 1 unit PRBC ordered. Status post EGD colonoscopy-essentially unremarkable except irritation at the esophageal anastomotic site. Bleeding is most likely small intestinal 12/16: Critically ill but slightly more stable today no obvious melanotic stools. According to the bedside RN when the tube feeds were disconnected there was some bleeding from the jejunostomy tube. Hemoglobin remained stable 7.8. Discussed with Dr. Wellington general surgeon, and his opinion bleeding likely from mucosal sloughing. Initiate spontaneous breathing trials 12/17: Remains critical hemoglobin dropped to 5.4 getting 3 units of PRBC. Extensive workup including EGD colonoscopy and bleeding scans x2 have been negative for active bleed. This seems to be most likely small intestinal bleed from mucosal bleed. Also it was not that the ZAINAB drain has color similar to tube feeds. I discussed with Dr. Wellington he will evaluate the patient afternoon. If there is suspicions will get CT scan after contrast through the J -tube 12/18: More awake alert follows commands weakly. No obvious bleeding hemoglobin 7.3. Will transfuse 1 unit PRBC. 12/19: Gastrointestinal bleeding appears to have stopped. Hemoglobin now stable. Tube feeds infusing. No more transfusions necessary. 12/20: Patient remains intubated sedated, hemoglobin is 6 will transfuse 1 unit PRBC. Hemodialysis scheduled for tomorrow. Appears weak pale. Very weakly follows commands on upper extremity. 12/21: We will try to extubate after dialysis today. Anticipate the tracheostomy at this point will be best for the patient but family would like to proceed with attempted extubation again. 12/22: Patient more alert this morning. Plan is to attempt to replace the jejunostomy tube which is plugged. Following that a new dialysis catheter will be placed. The triple-lumen central line will need to be next 24-48 hours. If remains alert we will try to extubate him today. Objective Vital Signs / I&O: Vital Signs 12/21/17 08:39 12/21/17 09:36 12/21/17 09:37 Temperature 99.9 F H Pulse Rate 97 H 98 H Respiratory Rate 18 24 25 H Blood Pressure 169/79 H 170/77 H Pulse Oximetry 12/21/17 09:45 12/21/17 10:00 12/21/17 10:15 Temperature Pulse Rate 101 H 101 H 103 H Respiratory Rate 18 18 19 Blood Pressure 163/77 H 158/81 H 147/77 H Pulse Oximetry 100 100 100 12/21/17 10:30 12/21/17 10:45 12/21/17 11:00 Temperature Pulse Rate 104 H 104 H 107 H Respiratory Rate 18 19 18 Blood Pressure 137/76 133/77 128/75 Pulse Oximetry 100 100 100 12/21/17 11:15 12/21/17 11:30 12/21/17 11:45 Temperature Pulse Rate 107 H 107 H 108 H Respiratory Rate 18 19 18 Blood Pressure 128/81 128/79 122/72 Pulse Oximetry 100 100 100 12/21/17 12:00 12/21/17 12:15 12/21/17 12:30 Temperature 99.8 F H Pulse Rate 103 H 102 H 101 H Respiratory Rate 18 18 18 Blood Pressure 122/69 125/71 132/73 Pulse Oximetry 100 100 100 12/21/17 12:45 12/21/17 12:51 12/21/17 13:00 Temperature Pulse Rate 99 H 99 H Respiratory Rate 18 18 18 Blood Pressure 123/65 138/69 Pulse Oximetry 100 97 100 12/21/17 13:15 12/21/17 13:30 12/21/17 13:45 Temperature Pulse Rate 103 H 98 H 98 H Respiratory Rate 18 18 18 Blood Pressure 136/69 119/57 L 116/59 L Pulse Oximetry 100 100 100 12/21/17 14:00 12/21/17 14:15 12/21/17 14:30 Temperature Pulse Rate 101 H 103 H 104 H Respiratory Rate 18 18 19 Blood Pressure 112/58 L 109/57 L 106/57 L Pulse Oximetry 100 100 100 12/21/17 14:45 12/21/17 15:00 12/21/17 15:15 Temperature Pulse Rate 102 H 104 H 102 H Respiratory Rate 19 18 40 H Blood Pressure 109/61 115/63 112/59 L Pulse Oximetry 100 100 100 12/21/17 15:30 12/21/17 15:45 12/21/17 16:00 Temperature Pulse Rate 101 H 104 H 103 H Respiratory Rate 26 H 35 H 26 H Blood Pressure 110/63 120/64 120/60 Pulse Oximetry 100 100 100 12/21/17 16:06 12/21/17 16:15 12/21/17 16:30 Temperature Pulse Rate 100 H 103 H Respiratory Rate 21 40 H 43 H Blood Pressure 133/68 127/70 Pulse Oximetry 100 100 100 12/21/17 16:45 12/21/17 17:00 12/21/17 17:15 Temperature Pulse Rate 103 H 102 H 106 H Respiratory Rate 38 H 41 H 39 H Blood Pressure 122/66 125/65 128/64 Pulse Oximetry 100 100 100 12/21/17 17:30 12/21/17 17:45 12/21/17 18:00 Temperature Pulse Rate 101 H 107 H 100 H Respiratory Rate 40 H 27 H 37 H Blood Pressure 133/65 129/66 124/63 Pulse Oximetry 100 100 100 12/21/17 18:15 12/21/17 19:00 12/21/17 19:20 Temperature Pulse Rate 106 H 112 H Respiratory Rate 41 H 37 H 18 Blood Pressure 135/69 116/55 L Pulse Oximetry 100 100 100 12/21/17 19:30 12/21/17 20:00 12/21/17 20:30 Temperature 99.9 F H Pulse Rate 109 H 110 H 110 H Respiratory Rate 40 H 22 24 Blood Pressure 119/55 L 125/62 123/76 Pulse Oximetry 100 100 100 12/21/17 21:00 12/21/17 21:30 12/21/17 22:00 Temperature Pulse Rate 105 H 106 H 100 H Respiratory Rate 24 22 23 Blood Pressure 166/86 H 120/63 132/71 Pulse Oximetry 100 100 100 12/21/17 22:21 12/21/17 22:30 12/21/17 23:00 Temperature Pulse Rate 106 H 102 H Respiratory Rate 21 22 19 Blood Pressure 139/74 133/70 Pulse Oximetry 100 100 100 12/21/17 23:30 12/22/17 00:00 12/22/17 00:22 Temperature 99.7 F H Pulse Rate 106 H 103 H Respiratory Rate 24 22 17 Blood Pressure 129/68 133/75 Pulse Oximetry 100 100 100 12/22/17 00:30 12/22/17 01:00 12/22/17 01:30 Temperature Pulse Rate 100 H 105 H 104 H Respiratory Rate 17 18 17 Blood Pressure 139/73 140/70 135/70 Pulse Oximetry 100 100 100 12/22/17 02:00 12/22/17 02:30 12/22/17 03:00 Temperature Pulse Rate 104 H 105 H 102 H Respiratory Rate 17 18 17 Blood Pressure 133/67 136/70 135/70 Pulse Oximetry 100 100 100 12/22/17 03:30 12/22/17 04:00 12/22/17 04:07 Temperature 99.6 F Pulse Rate 105 H 99 H Respiratory Rate 18 17 16 Blood Pressure 134/70 135/70 Pulse Oximetry 100 100 100 12/22/17 04:30 12/22/17 05:00 12/22/17 05:30 Temperature Pulse Rate 106 H 99 H 99 H Respiratory Rate 19 29 H 33 H Blood Pressure 135/61 140/69 145/71 H Pulse Oximetry 100 100 100 12/22/17 06:00 Temperature Pulse Rate 98 H Respiratory Rate 33 H Blood Pressure 143/70 H Pulse Oximetry 100 Intake & Output 12/21/17 12/22/17 12/22/17 18:59 06:59 18:59 Intake Total 650 / 650 550 / 550 Output Total 1999 175 / 175 Balance -1350 / -1350 375 / 375 Weight 68.5 kg Intake: IV 650 / 650 550 / 550 Protonix Inj 80 MG In NS Inj 100 / 100 100 / 100 100 ML @ 10 mls/hr IV.CONT Q10H COLE Rx#:[id number] Diprivan 1000 mg/100 ml Inj 1, 100 / 100 100 / 100 000 mg In 100 ml @ 5 MCG/KG/MIN 2.859 mls/hr IV.CONT TITRATE PRN Rx#:[id number] Mycamine Inj 100 MG In NS Inj 100 / 100 100 ML @ 100 mls/hr IV.SIG Q24H COLE Rx#:[id number] Zosyn 2.25 GM Premix 50 ML @ 100 / 100 100 / 100 100 mls/hr IV.SIG Q8H COLE Rx#: [id number] Vancomycin Inj 1,000 MG In NS 250 / 250 Inj 250 ML @ 250 mls/hr IV.SIG ONCE ONE Rx#:[id number] fentaNYL 10 mcg/mL Premix Drip 250 / 250 2,500 mcg In 250 ml @ 50 MCG/HR 5 mls/hr IV.SIG TITRATE PRN Rx #:[id number] Output: Hemodialysis Amount 1999 Wound Drainage 175 / 175 # 2 Right Abdomen 175 / 175 Other: Date of Last Bowel Movement 12/21/17 12/22/17 # Incontinent Bowel Movements 3 Result Diagrams: 12/22/17 04:45 12/22/17 04:45 Objective Remarks: GEN: Chronically ill-appearing, on vent, awake and interactive. HEENT: Orotracheal intubation pupils 2 mm and reactive bilaterally. NECK: RIJ vasc-cath removed and LIJ TLC present, clean/ dry/ intact CARDIO: NSR, normal S1, S2, regular rhythm, neck veins remain full PULM: On PRVC mode ventilation. Few rhonchi persist, decreased breath sounds both bases. GI: Dressings dry and clean. ZAINAB #1 removed, ZAINAB #2 with cloudy drainage. Abdomen soft. Bowel sounds present. No guarding SKIN: No rashes or lesions, dry NEURO: Following commands today, very weak. Moves 4 limbs spontaneously but only weakly. Assessment and Plan - Problem List (1) Gastric perforation Code(s): K25.5 - Chronic or unspecified gastric ulcer with perforation Status : Resolved (2) Status post total gastrectomy and Dinh-en-Y esophagojejunal anastomosis Code(s): Z90.3 - Acquired absence of stomach [part of]; Z98.0 - Intestinal bypass and anastomosis status Status: Acute (3) Ischemic hepatitis Code(s): K75.9 - Inflammatory liver disease, unspecified Status: Acute (4) Gastric necrosis Code(s): K31.89 - Other diseases of stomach and duodenum Status: Resolved (5) Thrombocytopenia Code(s): D69.6 - Thrombocytopenia, unspecified Status: Acute (6) Acute bilateral deep vein thrombosis (DVT) of upper extremities Code(s): I82.623 - Acute embolism and thrombosis of deep veins of upper extremity, bilateral Status: Acute (7) Anemia Code(s): D64.9 - Anemia, unspecified Status: Acute (8) Leukocytosis Code(s): D72.829 - Elevated white blood cell count, unspecified Status: Acute (9) Candidemia Code(s): B37.7 - Candidal sepsis Status: Acute (10) On total parenteral nutrition (TPN) Code(s): Z78.9 - Other specified health status Status: Acute (11) Hx of cardiac arrest Code(s): Z86.74 - Personal history of sudden cardiac arrest Status: Resolved (12) Acute hemodialysis patient Code(s): Z99.2 - Dependence on renal dialysis Status: Acute (13) JACLYN (acute kidney injury) Code(s): N17.9 - Acute kidney failure, unspecified Status: Acute (14) Aspiration pneumonia Code(s): J69.0 - Pneumonitis due to inhalation of food and vomit Status: Acute (15) Acute respiratory failure Code(s): J96.00 - Acute respiratory failure, unspecified whether with hypoxia or hypercapnia Status: Acute - Assessment and Plan Plan: NEURO: Metabolic encephalopathy On Fentanyl/propofol drips for sedation, pain control. Improving neuro exam, continue daily sedation vacation Following commands x4 Resolving encephalopathy 12/22 RESP: Acute respiratory failure Left pleural effusion PRVC, Ventilator Bundle Spontaneous breathing trials as tolerated-failed today, will not be able to extubate due to generalized weakness Scheduled and as needed breathing treatments Left pigtail chest tube removed 12/18 Spontaneous breathing trials today, try to extubate. CV: Cardiac arrest 11/23/17 (PEA arrest due to shock secondary to acute gastric perf and tension pneumoperitoneum) Septic shock, resolved Now off pressors. Hemodynamic monitoring Use as needed medication for hypertension Continued fluid removal with hemodialysis GI: s/p anterior gastric perforation with tension pneumoperitoneum status post ex lap with primary repair with stapler 11/23 On second look 11/25 he was found to have gastric necrosis requiring subtotal gastrectomy and placement of AB Thera VAC dressing. The bowel was in discontinuity and he was transferred to [facility]. On 11/28 reexploration with Dinh-en-y esophagojejunostomy, feeding jejunostomy placement, diagnostic EGD, primary fascial closure. Gastric necrosis , Ischemic hepatopathy GIB with blood loss anemia NGT to LIWS, leave above esophageal anastomosis to avoid irritation Bleeding appears to be small bowel mucosal bleeding at this point discussed with Dr. Wellington Has feeding jejunostomy and advance tube feeds with Nepro at 50 ml per hour EGD, enteroscopy 12/12/2017 unremarkable, colonoscopy 12/13/2017 unremarkable. Bleeding scan did not show any particular site of bleeding ZAINAB drains in place #1 anterior to anastomosis, now removed, #2 posterior to the anastomosis. Management per general surgery. Had right upper quadrant ultrasound on 11/27/17 that demonstrated contracted gallbladder with sludge. No evidence of cholecystitis. Echogenicity in right liver related to focal fatty change or altered perfusion, patent vascularity. Protonix GTT for GI bleed. FEN/RENAL: JACLYN secondary to ischemic ATN HD as started 11/26 at [place]. Has R IJ Vascath. Monitor I/O and electrolytes. Nephrology following Continue scheduled dialysis ID: Gastric perforation with large amount particulate peritoneal contamination 11/23 Acute Aspiration pneumonia Candidemia (C [place] 11/26 at culture) Continue Zosyn/micafungin. ID following Dr. Millan Patient evaluated by ophthalmology prior to transfer. Do not see an ophthalmology note in the transfer documentation, requested document. Requested culture data from [facility]. Follow-up cultures here Sputum culture 11/24 with pansensitive Klebsiella pneumonia HEME: Anemia requiring transfusion Thrombocytopenia-resolved Bilateral upper extremity DVTs Transfuse 3 units PRBC 12/13, transfuse 1 unit PRBC 12/14/2017, 2U 12/15. GI workup as above. 2U PRBC 12/18/17 1U PRBC today for hemoglobin of 6, additional transfusion tomorrow with hemodialysis, there is no evidence of hemolysis U/s 11/26 BUE - thrombus R axillary, brachial and basilic veins and thrombus in left axillary and left brachial veins. U/s bilateral lower extremities 11/26 at [facility] negative from common femoral to popliteal vein levels. Arrived on heparin drip, due to GI bleed and anemia all anticoagulation is being held Hematology consult was obtained at [facility] and recommended heparin drip and transfuse prn for platelets <50k. ENDO: Monitor Glucose q4 hours and use low dose insulin sliding scale as indicated. PROPH: s/q heparin held due to blood loss anemia, GIB. Protonix for stress ulcer prophylaxis. DVT prophylaxis. ACCESS: R IJ vascath removed 12/20, L IJ CVL. All existing lines were replaced at [facility]. Left IJ line accidentally was dislodged 12/23/2017, new left IJ line placed 12/13/2017 FULL CODE Overall impression: Multiple ongoing medical problems. Was critical with continued GI bleed and anemia requiring transfusion. Most likely small intestinal mucosal bleeding. Continue transfusions. Probably will need tracheostomy but will try to extubate one more time to assess airway. Attempt to place him in an LTAC soon. (6) Acute bilateral deep vein thrombosis (DVT) of upper extremities Qualifiers: Affected thrombotic vein of extremity: brachial Qualified Code(s): I82.623 - Acute embolism and thrombosis of deep veins of upper extremity, bilateral (15) Acute respiratory failure Qualifiers: Respiratory failure complication: hypoxia Qualified Code(s): J96.01 - Acute respiratory failure with hypoxia
[2017-12-22] MEDS: Calcium Acetate 667 MG Capsule PO SCH ×3 (08:20→17:37)
[2017-12-22] MEDS: hydrALAZINE 50 MG Tablet PO SCH ×3 (08:20→17:37)
[2017-12-22] MEDS: Chlorhexidine 0.12% Oral Kit 15 ML UDC OROPHARYNG SCH ×2 (08:21→20:40)
[2017-12-22] MEDS: Propofol 1000 mg/100 ml Inj 1,000 MG/100 ML BOTTLE IV.CONT PRN (09:12)
[2017-12-22] MEDS ORDERED: Diatrizoate Meglum/Diatrizoate Sod Liq 120 ML Bottle (for RAD diag) NG/OG ONE (10:29)
[2017-12-22] MEDS ORDERED: Potassium Chlor 20 mEq Premix 20 MEQ/100 ML PIGGYBACK IV.SIG ONE (12:34)
--- NOTE | 2017-12-22 12:35 | P.PNNP ---
Subjective Interval history: Intubated on mild sedation. Responds to commands. Plans for vas cath placement today per CC. <Princess Martel - Last Filed: 12/22/17 12:20> Physical Exam Vital signs: Vital Signs 12/21/17 12:30 12/21/17 12:45 12/21/17 12:51 Temperature Pulse Rate 101 H 99 H Respiratory Rate 18 18 18 Blood Pressure 132/73 123/65 Pulse Oximetry 100 100 97 12/21/17 13:00 12/21/17 13:15 12/21/17 13:30 Temperature Pulse Rate 99 H 103 H 98 H Respiratory Rate 18 18 18 Blood Pressure 138/69 136/69 119/57 L Pulse Oximetry 100 100 100 12/21/17 13:45 12/21/17 14:00 12/21/17 14:15 Temperature Pulse Rate 98 H 101 H 103 H Respiratory Rate 18 18 18 Blood Pressure 116/59 L 112/58 L 109/57 L Pulse Oximetry 100 100 100 12/21/17 14:30 12/21/17 14:45 12/21/17 15:00 Temperature Pulse Rate 104 H 102 H 104 H Respiratory Rate 19 19 18 Blood Pressure 106/57 L 109/61 115/63 Pulse Oximetry 100 100 100 12/21/17 15:15 12/21/17 15:30 12/21/17 15:45 Temperature Pulse Rate 102 H 101 H 104 H Respiratory Rate 40 H 26 H 35 H Blood Pressure 112/59 L 110/63 120/64 Pulse Oximetry 100 100 100 12/21/17 16:00 12/21/17 16:06 12/21/17 16:15 Temperature Pulse Rate 103 H 100 H Respiratory Rate 26 H 21 40 H Blood Pressure 120/60 133/68 Pulse Oximetry 100 100 100 12/21/17 16:30 12/21/17 16:45 12/21/17 17:00 Temperature Pulse Rate 103 H 103 H 102 H Respiratory Rate 43 H 38 H 41 H Blood Pressure 127/70 122/66 125/65 Pulse Oximetry 100 100 100 12/21/17 17:15 12/21/17 17:30 12/21/17 17:45 Temperature Pulse Rate 106 H 101 H 107 H Respiratory Rate 39 H 40 H 27 H Blood Pressure 128/64 133/65 129/66 Pulse Oximetry 100 100 100 12/21/17 18:00 12/21/17 18:15 12/21/17 19:00 Temperature Pulse Rate 100 H 106 H 112 H Respiratory Rate 37 H 41 H 37 H Blood Pressure 124/63 135/69 116/55 L Pulse Oximetry 100 100 100 12/21/17 19:20 12/21/17 19:30 12/21/17 20:00 Temperature 99.9 F H Pulse Rate 109 H 110 H Respiratory Rate 18 40 H 22 Blood Pressure 119/55 L 125/62 Pulse Oximetry 100 100 100 12/21/17 20:30 12/21/17 21:00 12/21/17 21:30 Temperature Pulse Rate 110 H 105 H 106 H Respiratory Rate 24 24 22 Blood Pressure 123/76 166/86 H 120/63 Pulse Oximetry 100 100 100 12/21/17 22:00 12/21/17 22:21 12/21/17 22:30 Temperature Pulse Rate 100 H 106 H Respiratory Rate 23 21 22 Blood Pressure 132/71 139/74 Pulse Oximetry 100 100 100 12/21/17 23:00 12/21/17 23:30 12/22/17 00:00 Temperature 99.7 F H Pulse Rate 102 H 106 H 103 H Respiratory Rate 19 24 22 Blood Pressure 133/70 129/68 133/75 Pulse Oximetry 100 100 100 12/22/17 00:22 12/22/17 00:30 12/22/17 01:00 Temperature Pulse Rate 100 H 105 H Respiratory Rate 17 17 18 Blood Pressure 139/73 140/70 Pulse Oximetry 100 100 100 12/22/17 01:30 12/22/17 02:00 12/22/17 02:30 Temperature Pulse Rate 104 H 104 H 105 H Respiratory Rate 17 17 18 Blood Pressure 135/70 133/67 136/70 Pulse Oximetry 100 100 100 12/22/17 03:00 12/22/17 03:30 12/22/17 04:00 Temperature 99.6 F Pulse Rate 102 H 105 H 99 H Respiratory Rate 17 18 17 Blood Pressure 135/70 134/70 135/70 Pulse Oximetry 100 100 100 12/22/17 04:07 12/22/17 04:30 12/22/17 05:00 Temperature Pulse Rate 106 H 99 H Respiratory Rate 16 19 29 H Blood Pressure 135/61 140/69 Pulse Oximetry 100 100 100 11/17/18 05:30 12/22/17 06:00 12/22/17 06:30 Temperature Pulse Rate 99 H 98 H 101 H Respiratory Rate 33 H 33 H 37 H Blood Pressure 145/71 H 143/70 H 151/75 H Pulse Oximetry 100 100 100 12/22/17 07:00 12/22/17 07:30 12/22/17 08:00 Temperature 99.6 F Pulse Rate 96 H 99 H 97 H Respiratory Rate 20 16 16 Blood Pressure 146/72 H 152/121 H 133/63 Pulse Oximetry 100 100 100 12/22/17 08:28 12/22/17 08:30 12/22/17 09:00 Temperature Pulse Rate 97 H 97 H Respiratory Rate 16 17 19 Blood Pressure 134/65 126/65 Pulse Oximetry 100 100 100 12/22/17 09:30 Temperature Pulse Rate 109 H Respiratory Rate 18 Blood Pressure 126/59 L Pulse Oximetry 100 Intake & Output 12/21/17 12/22/17 12/22/17 18:59 06:59 18:59 Intake Total 650 / 650 550 / 550 200 / 200 Output Total 1999 / 1999 175 / 175 Balance -1350 / -1350 375 / 375 200 / 200 Weight 68.5 kg Intake: IV 650 / 650 550 / 550 200 / 200 Protonix Inj 80 MG In NS Inj 100 / 100 100 / 100 100 ML @ 10 mls/hr IV.CONT Q10H [facility] Rx#:[id number] Diprivan 1000 mg/100 ml Inj 1, 100 / 100 100 / 100 100 / 100 000 mg In 100 ml @ 5 MCG/KG/MIN 2.859 mls/hr IV.CONT TITRATE PRN Rx#:[id number] Mycamine Inj 100 MG In NS Inj 100 / 100 100 / 100 100 ML @ 100 mls/hr IV.SIG Q24H [facility] Rx#:[id number] Zosyn 2.25 GM Premix 50 ML @ 100 / 100 100 / 100 100 mls/hr IV.SIG Q8H [facility] Rx#: [id number] Vancomycin Inj 1,000 MG In NS 250 / 250 Inj 250 ML @ 250 mls/hr IV.SIG ONCE ONE Rx#:[id number] fentaNYL 10 mcg/mL Premix Drip 250 / 250 2,500 mcg In 250 ml @ 50 MCG/HR 5 mls/hr IV.SIG TITRATE PRN Rx #:[id number] Output: Hemodialysis Amount 1999 Wound Drainage 175 / 175 # 2 Right Abdomen 175 / 175 Other: Date of Last Bowel Movement 12/21/17 12/22/17 12/22/17 # Incontinent Bowel Movements 3 Narrative: GENERAL: Orally intubated on light sedation. Follows commands. Very weak. NECK: Supple, trachea midline. No JVD or lymphadenopathy. CARDIOVASCULAR: Regular rate and rhythm without murmurs, gallops, or rubs. RESPIRATORY: Breath sounds diminished with rhonchi scattered bilaterally. No accessory muscle use. GASTROINTESTINAL: Dressings dry and clean. ZAINAB #1 removed, ZAINAB #2 with cloudy drainage. Abdomen soft. Bowel sounds present. No guarding MUSCULOSKELETAL: No cyanosis, 2 + upper extremity edema present. - Urinary Catheter Management Indwelling Temp Sensing Catheter Cath placed during this visit: no <Princess Martel - Last Filed: 12/22/17 12:20> Vital signs: Vital Signs 12/23/17 22:00 12/23/17 23:00 12/24/17 00:00 Temperature 98.2 F Pulse Rate 92 H 93 H 95 H Respiratory Rate 15 16 28 H Blood Pressure 142/62 H 120/57 L 140/63 Pulse Oximetry 99 100 100 12/24/17 01:00 12/24/17 02:00 12/24/17 03:00 Temperature Pulse Rate 92 H 99 H 98 H Respiratory Rate 13 14 22 Blood Pressure 154/70 H 158/71 H 143/65 H Pulse Oximetry 100 100 100 12/24/17 04:00 12/24/17 05:00 12/24/17 05:06 Temperature 97.8 F Pulse Rate 91 H 97 H Respiratory Rate 26 H 26 H Blood Pressure 139/61 122/58 L Pulse Oximetry 100 100 12/24/17 05:44 12/24/17 06:00 12/24/17 06:05 Temperature Pulse Rate 92 H 91 H Respiratory Rate 14 12 13 Blood Pressure 122/58 L 138/65 Pulse Oximetry 100 100 12/24/17 07:00 12/24/17 07:05 12/24/17 08:00 Temperature 98.1 F Pulse Rate 92 H 87 97 H Respiratory Rate 10 L 11 L 20 Blood Pressure 149/72 H Pulse Oximetry 100 94 L 12/24/17 08:05 12/24/17 09:00 12/24/17 09:05 Temperature Pulse Rate 94 H 95 H 94 H Respiratory Rate 24 22 19 Blood Pressure 146/70 H 154/89 H Pulse Oximetry 12/24/17 10:00 12/24/17 10:05 12/24/17 11:00 Temperature Pulse Rate 107 H 110 H 103 H Respiratory Rate 34 H 49 H 25 H Blood Pressure 137/62 Pulse Oximetry 97 97 97 12/24/17 11:05 12/24/17 12:00 12/24/17 12:05 Temperature 97.7 F Pulse Rate 103 H 103 H 103 H Respiratory Rate 16 20 24 Blood Pressure 141/66 H 152/82 H Pulse Oximetry 97 98 97 12/24/17 13:00 12/24/17 13:05 12/24/17 14:00 Temperature Pulse Rate 106 H 108 H 100 H Respiratory Rate 22 25 H 12 Blood Pressure 122/58 L Pulse Oximetry 99 99 98 12/24/17 14:05 12/24/17 15:27 12/24/17 15:32 Temperature Pulse Rate 100 H 102 H 102 H Respiratory Rate 14 15 16 Blood Pressure 126/58 L 151/72 H Pulse Oximetry 97 97 97 12/24/17 16:00 12/24/17 17:00 12/24/17 18:00 Temperature 98.8 F Pulse Rate 94 H 99 H 106 H Respiratory Rate 21 11 L 45 H Blood Pressure 136/65 Pulse Oximetry 97 96 96 Intake & Output 12/24/17 12/24/17 12/25/17 06:59 18:59 06:59 Intake Total 550 / 550 400 / 400 Output Total 620 / 620 700 / 700 Balance -70 / -70 -300 / -300 Weight 65.2 kg Intake: IV 550 / 550 400 / 400 Protonix Inj 80 MG In NS Inj 200 / 200 100 / 100 100 ML @ 10 mls/hr IV.CONT Q10H [facility] Rx#:[id number] Merrem Inj 500 MG In NS Inj 100 100 / 100 200 / 200 ML @ 200 mls/hr IV.SIG Q8H [facility] Rx#:[id number] Mycamine Inj 100 MG In NS Inj 100 / 100 100 ML @ 100 mls/hr IV.SIG Q24H [facility] Rx#:[id number] fentaNYL 10 mcg/mL Premix Drip 250 / 250 2,500 mcg In 250 ml @ 50 MCG/HR 5 mls/hr IV.SIG TITRATE PRN Rx #:[id number] Oral 0 / 0 Output: Urine 200 / 200 Stool 200 / 200 500 / 500 Wound Drainage 220 / 220 200 / 200 # 2 Right Abdomen 220 / 220 200 / 200 Other: # Incontinent Voids 2 Date of Last Bowel Movement 12/24/17 12/22/17 - Urinary Catheter Management Indwelling Temp Sensing Catheter Cath placed during this visit: no <Jolie Connor - Last Filed: 12/24/17 21:15> Assessment and Plan - Assessment (1) JACLYN (acute kidney injury) Code(s): N17.9 - Acute kidney failure, unspecified Status: Acute Plan: Anuric renal failure, he has become dialysis dependent. Hemodialysis yesterday, UF of 2 liters. Awaiting for vas cath placement today per CC. Continue supportive care and monitor for renal recovery. Avoid nephrotoxic agents. Hypokalemia, replacement ordered. Plan for hemodialysis tomorrow (2) Acute respiratory failure Code(s): J96.00 - Acute respiratory failure, unspecified whether with hypoxia or hypercapnia Status: Acute Qualifiers: Respiratory failure complication: hypoxia Qualified Code(s): J96.01 - Acute respiratory failure with hypoxia Plan: On the ventilator. (3) Gastric perforation Code(s): K25.5 - Chronic or unspecified gastric ulcer with perforation Status : Resolved Plan: s/p surgery. Subtotal gastrectomy in [place]. In [facility] he had: Dinh-en-y esophagojejunostomy, feeding jejunostomy placement, diagnostic EGD, primary fascial closure. Date of procedure: 11/28/17 Negative bleeding scan - follow with GI, surgery. No immediate surgical plans at this point (4) Candidemia Code(s): B37.7 - Candidal sepsis Status: Acute Plan: On Micafungin. Dose medications appropriate to renal function. (5) DVT (deep venous thrombosis) Code(s): I82.409 - Acute embolism and thrombosis of unspecified deep veins of unspecified lower extremity Status: Acute Plan: DVT of bilateral upper extremities. (6) Anemia Code(s): D64.9 - Anemia, unspecified Status: Acute Plan: HGB at 8.1 Could be multifactorial. Also could be due to renal failure. Bleeding scan negative. <Gellermann,Princess - Last Filed: 12/22/17 12:20> - Assessment (1) JACLYN (acute kidney injury) Code(s): N17.9 - Acute kidney failure, unspecified Status: Acute Plan: Patient seen and examined, agree with above. Has JACLYN, remain anuric. HD tomorrow, now getting Vascath. (2) Acute respiratory failure Code(s): J96.00 - Acute respiratory failure, unspecified whether with hypoxia or hypercapnia Status: Acute Qualifiers: Respiratory failure complication: hypoxia Qualified Code(s): J96.01 - Acute respiratory failure with hypoxia (3) Gastric perforation Code(s): K25.5 - Chronic or unspecified gastric ulcer with perforation Status : Resolved (4) Candidemia Code(s): B37.7 - Candidal sepsis Status: Acute (5) DVT (deep venous thrombosis) Code(s): I82.409 - Acute embolism and thrombosis of unspecified deep veins of unspecified lower extremity Status: Acute (6) Anemia Code(s): D64.9 - Anemia, unspecified Status: Acute <Jolie Connor - Last Filed: 12/24/17 21:15>
--- NOTE | 2017-12-22 12:48 | FL ---
EXAM DATE: 12/22/2017 12:36 PM EST AGE/SEX: 47 years / Male INDICATIONS: Evaluate for obstruction. CLINICAL DATA: This is the patient's initial encounter. Patient reports that signs and symptoms have been present for 2 weeks and indicates a pain score of Nonresponsive. MEDICAL/SURGICAL HISTORY: . Cardiac arrest. . Chest tube, left. Vas cath. Gastrectomy. Dinh en Y esophagojejunostomy. COMPARISON: [facility] [place], ABDOMEN 1V KUB, 12/08/2017. [facility] [place], CT ABDOMEN & PELVIS W/O CONTRAST, 12/12/2017. . FLUORO TIME: 0 IMAGE COUNT: 3 CONTRAST: Gastrografin administered via a nasogastric tube. FINDINGS: Preliminary film is unremarkable for a left-sided drain which overlies the left lower quadrant. The exam is modified secondary to the patient's current clinical status. There is abnormal small joselyn l wall thickening identified within the jejunum and ileum with passage of the injected Gastrografin t hrough the small bowel and is seen within the descending and sigmoid colon at the 2 hour jennifer.. CONCLUSION: No evidence of bowel obstruction. There is mild diffuse small bowel wall thickening identified within the jejunum and ileum consistent with possible edema given the appearance on initial imaging. Drain overlying the left lower quadrant. Electronically signed by: Talya Parker MD 12/22/2017 12:47 PM EST
--- NOTE | 2017-12-22 13:50 | P.PCN ---
Procedure: Diagnosis: End stage renal disease (ESRD), poor venous access Procedure: 1. Insertion right internal jugular 14 [place], 2 lm hemodialysis catheter 2. Insertion right subclavian triple-lumen central venous line Narrative: Timeout performed and patient properly identified. Patient on mechanical ventilation with sedation infusing. Right neck and chest prepped and draped. Sub-clavicular region and anterior neck infiltrated with 1% Xylocaine local anesthetic. Using a thin-walled needle the subclavian vein was easily cannulated underneath the clavicle and a wire advanced. Dilator was passed and the triple-lumen central venous catheter was advanced to the central circulation for a distance of 19 cm. All 3 lm were aspirated and flushed. Using ultrasound guidance a thin-walled needle was used to cannulate the right internal jugular vein and a floppy wire easily advanced. Sequential dilators were passed and the 14 [place]i 2 lm hemodialysis catheter was advanced into the central circulation for a distance of 17 cm. Both lumens were aspirated, flushed and packed with heparin 1000 units/mL. The triple-lumen catheter was attached to the skin with a StatLock device and a sterile dressing was applied. The HD catheter was attached to the skin with a sterile dressing and the flange was sewn to the dressing with a silk suture. A chest x-ray was ordered, will review.
[2017-12-22] MEDS: Heparin 10,000 UNITS/10 ML Vial (for IV use) OTHER PRN (14:23)
--- NOTE | 2017-12-22 15:26 | XR ---
EXAM DATE: 12/22/2017 3:21 PM EST AGE/SEX: 47 years / Male INDICATIONS: Short of Breath CLINICAL DATA: This is the patient's subsequent encounter. Patient reports that signs and symptoms h ave been present for 2 weeks and indicates a pain score of 0/10. MEDICAL/SURGICAL HISTORY: . Cardiac arrest. . Chest tube, left. . Vas cath. Gastrectomy. Rou x en Y esophagojejunostomy. COMPARISON: [facility], CHEST 1V SINGLE AP, 12/21/2017. . FINDINGS: Persistent patchy infiltrate is noted within the left lung base. The heart is stable. The right lung is clear. Multiple tubes and lines are stable. The nasogastric tube is still noted with its tip in th e distal esophagus. A right subclavian central line has been placed since the previous examination an d has its tip in the superior vena cava. There is no pneumothorax. The right sided Vas-Cath, left int ernal jugular central line and endotracheal tube are unchanged in positions. CONCLUSION: 1. Persistent patchy infiltrate within the left lung base. 2. Multiple tubes and lines are stable. The nasogastric tube remains with its tip in the distal esop hagus. New right subclavian central line has its tip in superior vena cava. No pneumothorax is noted. Electronically signed by: Remy Hill MD 12/22/2017 3:25 PM EST
--- NOTE | 2017-12-22 16:09 | P.PN ---
Subjective Interval history: Study via NG-tube completed; no obstruction Physical Exam Vital signs: Vital Signs 12/21/17 16:15 12/21/17 16:30 12/21/17 16:45 Temperature Pulse Rate 100 H 103 H 103 H Respiratory Rate 40 H 43 H 38 H Blood Pressure 133/68 127/70 122/66 Pulse Oximetry 100 100 100 12/21/17 17:00 12/21/17 17:15 12/21/17 17:30 Temperature Pulse Rate 102 H 106 H 101 H Respiratory Rate 41 H 39 H 40 H Blood Pressure 125/65 128/64 133/65 Pulse Oximetry 100 100 100 12/21/17 17:45 12/21/17 18:00 12/21/17 18:15 Temperature Pulse Rate 107 H 100 H 106 H Respiratory Rate 27 H 37 H 41 H Blood Pressure 129/66 124/63 135/69 Pulse Oximetry 100 100 100 12/21/17 19:00 12/21/17 19:20 12/21/17 19:30 Temperature Pulse Rate 112 H 109 H Respiratory Rate 37 H 18 40 H Blood Pressure 116/55 L 119/55 L Pulse Oximetry 100 100 100 12/21/17 20:00 12/21/17 20:30 12/21/17 21:00 Temperature 99.9 F H Pulse Rate 110 H 110 H 105 H Respiratory Rate 22 24 24 Blood Pressure 125/62 123/76 166/86 H Pulse Oximetry 100 100 100 12/21/17 21:30 12/21/17 22:00 12/21/17 22:21 Temperature Pulse Rate 106 H 100 H Respiratory Rate 22 23 21 Blood Pressure 120/63 132/71 Pulse Oximetry 100 100 100 12/21/17 22:30 12/21/17 23:00 12/21/17 23:30 Temperature Pulse Rate 106 H 102 H 106 H Respiratory Rate 22 19 24 Blood Pressure 139/74 133/70 129/68 Pulse Oximetry 100 100 100 12/22/17 00:00 12/22/17 00:22 12/22/17 00:30 Temperature 99.7 F H Pulse Rate 103 H 100 H Respiratory Rate 22 17 17 Blood Pressure 133/75 139/73 Pulse Oximetry 100 100 100 12/22/17 01:00 12/22/17 01:30 12/22/17 02:00 Temperature Pulse Rate 105 H 104 H 104 H Respiratory Rate 18 17 17 Blood Pressure 140/70 135/70 133/67 Pulse Oximetry 100 100 100 12/22/17 02:30 12/22/17 03:00 12/22/17 03:30 Temperature Pulse Rate 105 H 102 H 105 H Respiratory Rate 18 17 18 Blood Pressure 136/70 135/70 134/70 Pulse Oximetry 100 100 100 12/22/17 04:00 12/22/17 04:07 12/22/17 04:30 Temperature 99.6 F Pulse Rate 99 H 106 H Respiratory Rate 17 16 19 Blood Pressure 135/70 135/61 Pulse Oximetry 100 100 100 12/22/17 05:00 12/22/17 05:30 12/22/17 06:00 Temperature Pulse Rate 99 H 99 H 98 H Respiratory Rate 29 H 33 H 33 H Blood Pressure 140/69 145/71 H 143/70 H Pulse Oximetry 100 100 100 12/22/17 06:30 12/22/17 07:00 12/22/17 07:30 Temperature Pulse Rate 101 H 96 H 99 H Respiratory Rate 37 H 20 16 Blood Pressure 151/75 H 146/72 H 152/121 H Pulse Oximetry 100 100 100 12/22/17 08:00 12/22/17 08:28 12/22/17 08:30 Temperature 99.6 F Pulse Rate 97 H 97 H Respiratory Rate 16 16 17 Blood Pressure 133/63 134/65 Pulse Oximetry 100 100 100 12/22/17 09:00 12/22/17 09:30 12/22/17 15:45 Temperature Pulse Rate 97 H 109 H Respiratory Rate 19 18 18 Blood Pressure 126/65 126/59 L Pulse Oximetry 100 100 100 Intake & Output 12/21/17 12/22/17 12/22/17 18:59 06:59 18:59 Intake Total 650 / 650 550 / 550 300 / 300 Output Total 1999 175 / 175 Balance -1350 / -1350 375 / 375 300 / 300 Weight 68.5 kg Intake: IV 650 / 650 550 / 550 300 / 300 Protonix Inj 80 MG In NS Inj 100 / 100 100 / 100 100 / 100 100 ML @ 10 mls/hr IV.CONT Q10H [facility] Rx#:[id number] Diprivan 1000 mg/100 ml Inj 1, 100 / 100 100 / 100 100 / 100 000 mg In 100 ml @ 5 MCG/KG/MIN 2.859 mls/hr IV.CONT TITRATE PRN Rx#:[id number] Mycamine Inj 100 MG In NS Inj 100 / 100 100 / 100 100 ML @ 100 mls/hr IV.SIG Q24H [facility] Rx#:[id number] Zosyn 2.25 GM Premix 50 ML @ 100 / 100 100 / 100 100 mls/hr IV.SIG Q8H [facility] Rx#: [id number] Vancomycin Inj 1,000 MG In NS 250 / 250 Inj 250 ML @ 250 mls/hr IV.SIG ONCE ONE Rx#:[id number] fentaNYL 10 mcg/mL Premix Drip 250 / 250 2,500 mcg In 250 ml @ 50 MCG/HR 5 mls/hr IV.SIG TITRATE PRN Rx #:[id number] Output: Hemodialysis Amount 1999 Wound Drainage 175 / 175 # 2 Right Abdomen 175 / 175 Other: Date of Last Bowel Movement 12/21/17 12/22/17 12/21/17 # Incontinent Bowel Movements 3 - Constitutional no acute distress Comments: Sedated - Urinary Catheter Management Indwelling Temp Sensing Catheter Cath placed during this visit: no Results - Labs CBC & Chem 7: 12/22/17 04:45 12/22/17 04:45 Laboratory Results - last 24 hr 12/21/17 12/21/17 12/22/17 20:14 23:20 04:45 Hgb 8.1 L Sodium Potassium Chloride Carbon Dioxide Anion Gap BUN Creatinine Estimated GFR POC Glucose 89 88 Random Glucose Calcium Phosphorus Albumin Random Vancomycin 12/22/17 12/22/17 12/22/17 04:45 04:55 07:27 Hgb Sodium 144 Potassium 3.2 L Chloride 105 Carbon Dioxide 24.3 Anion Gap 15 BUN 71 H Creatinine 6.43 H Estimated GFR 11 L POC Glucose 82 87 Random Glucose 78 Calcium 8.0 L Phosphorus 7.1 H D Albumin 1.7 L Random Vancomycin 17.8 Microbiology 12/21/17 12:35 Tissue - Abdominal Gram Stain - Final 12/21/17 12:35 Tissue - Abdominal Wound Culture - Preliminary gram negative rods 12/07/17 10:10 Fluid - Pleural fluid Fungal Smear - Final No fungal elements seen 12/07/17 10:10 Fluid - Pleural fluid Fungal Culture - Preliminary No growth in 2 weeks 12/07/17 10:10 Fluid - Pleural fluid Acid Fast Bacilli Smear - Final No acid fast bacilli seen 12/07/17 10:10 Fluid - Pleural fluid Mycobacterial Culture - Preliminary No growth in 2 weeks - Imaging Impressions Chest X-Ray 12/22/17 00:00 CONCLUSION: 1. Persistent patchy infiltrate within the left lung base. 2. Multiple tubes and lines are stable. The nasogastric tube remains with its tip in the distal esophagus. New right subclavian central line has its tip in superior vena cava. No pneumothorax is noted. Small Bowel X-Ray 12/22/17 00:00 CONCLUSION: No evidence of bowel obstruction. There is mild diffuse small bowel wall thickening identified within the jejunum and ileum consistent with possible edema given the appearance on initial imaging. Drain overlying the left lower quadrant. Assessment and Plan - Assessment (1) Gastric perforation Code(s): K25.5 - Chronic or unspecified gastric ulcer with perforation Status : Resolved Plan: Start low bolus feeds via NG; may have IR remove J-tube or exchange it next week. - Attending Attestation I attest that I had a [id number] encounter with the patient on the same day, and personally performed and documented my assessment and findings in the medical record. The following services were provided during this hospital visit: Chart data review, vital sign assessments/reviewing monitor data Review of consultation notes if present Medication orders/review and/or management Ordering and/or reviewing lab tests Ordering and/or interpreting/reviewing x-rays and/or diagnostic studies Care of the patient and discussion of the patient with the care team Documentation time To help prompt me to consider important information that might be impacting today's encounter and assessment, Information from prior notes written by myself or my colleagues may have been "brought forward/copy and pasted" into today's note.
[2017-12-22] MEDS ORDERED: Vancomycin Inj 1,000 MG in Sodium Chlor 0.9% Inj 250 ML IV.SIG ONE (16:37)
--- NOTE | 2017-12-22 16:37 | P.PNID ---
Subjective Remarks: ID Coverage [id number] Y/O male initially admitted 11/22 with severe abdominal pain. Found to have ischemic part of his stomach with perforation. Underwent subtotal gastrectomy. Bowel was in discontinuity following subtotal gastrectomy and patient was transferred to [facility]. On reexploration 11/28 he underwent Dinh- en-y esophagojejunostomy, feeding jejunostomy placement, diagnostic EGD, primary fascial closure. He was transferred back here 11/30. Got reintubated and has been intubated. Notes reviewed D/W RN Has renal failure, and has been getting HD Vascath fell out, new one just placed today Has new line RSC placed today L sided central line to be removed today Has been on Rx for Starr glabrata sepsis while in [facility] On the vent - on CPAP, prob extubation today Temps low grade WBC remains elevated CXR mild L base infiltrate last sputum 12/04 NF No (+) BC here C/S jejunostomy site with GNR Got Vanco yesterday - level 17 today Antibiotics: Micafungin Zosyn vanco x 1 dose 12/21 Lines: RSC [facility] Past Medical History: Reviewed Allergies/Adverse Reactions: Allergies No Known Allergies Allergy (Verified 11/22/17 02:38) Objective Vital Signs 12/21/17 16:30 12/21/17 16:45 12/21/17 17:00 Temperature Pulse Rate 103 H 103 H 102 H Respiratory Rate 43 H 38 H 41 H Blood Pressure 127/70 122/66 125/65 Pulse Oximetry 100 100 100 12/21/17 17:15 12/21/17 17:30 12/21/17 17:45 Temperature Pulse Rate 106 H 101 H 107 H Respiratory Rate 39 H 40 H 27 H Blood Pressure 128/64 133/65 129/66 Pulse Oximetry 100 100 100 12/21/17 18:00 12/21/17 18:15 12/21/17 19:00 Temperature Pulse Rate 100 H 106 H 112 H Respiratory Rate 37 H 41 H 37 H Blood Pressure 124/63 135/69 116/55 L Pulse Oximetry 100 100 100 12/21/17 19:20 12/21/17 19:30 12/21/17 20:00 Temperature 99.9 F H Pulse Rate 109 H 110 H Respiratory Rate 18 40 H 22 Blood Pressure 119/55 L 125/62 Pulse Oximetry 100 100 100 11/16/18 20:30 12/21/17 21:00 12/21/17 21:30 Temperature Pulse Rate 110 H 105 H 106 H Respiratory Rate 24 24 22 Blood Pressure 123/76 166/86 H 120/63 Pulse Oximetry 100 100 100 12/21/17 22:00 12/21/17 22:21 12/21/17 22:30 Temperature Pulse Rate 100 H 106 H Respiratory Rate 23 21 22 Blood Pressure 132/71 139/74 Pulse Oximetry 100 100 100 12/21/17 23:00 12/21/17 23:30 12/22/17 00:00 Temperature 99.7 F H Pulse Rate 102 H 106 H 103 H Respiratory Rate 19 24 22 Blood Pressure 133/70 129/68 133/75 Pulse Oximetry 100 100 100 12/22/17 00:22 12/22/17 00:30 12/22/17 01:00 Temperature Pulse Rate 100 H 105 H Respiratory Rate 17 17 18 Blood Pressure 139/73 140/70 Pulse Oximetry 100 100 100 12/22/17 01:30 12/22/17 02:00 12/22/17 02:30 Temperature Pulse Rate 104 H 104 H 105 H Respiratory Rate 17 17 18 Blood Pressure 135/70 133/67 136/70 Pulse Oximetry 100 100 100 12/22/17 03:00 12/22/17 03:30 12/22/17 04:00 Temperature 99.6 F Pulse Rate 102 H 105 H 99 H Respiratory Rate 17 18 17 Blood Pressure 135/70 134/70 135/70 Pulse Oximetry 100 100 100 12/22/17 04:07 12/22/17 04:30 12/22/17 05:00 Temperature Pulse Rate 106 H 99 H Respiratory Rate 16 19 29 H Blood Pressure 135/61 140/69 Pulse Oximetry 100 100 100 12/22/17 05:30 12/22/17 06:00 12/22/17 06:30 Temperature Pulse Rate 99 H 98 H 101 H Respiratory Rate 33 H 33 H 37 H Blood Pressure 145/71 H 143/70 H 151/75 H Pulse Oximetry 100 100 100 12/22/17 07:00 12/22/17 07:30 12/22/17 08:00 Temperature 99.6 F Pulse Rate 96 H 99 H 97 H Respiratory Rate 20 16 16 Blood Pressure 146/72 H 152/121 H 133/63 Pulse Oximetry 100 100 100 12/22/17 08:28 12/22/17 08:30 12/22/17 09:00 Temperature Pulse Rate 97 H 97 H Respiratory Rate 16 17 19 Blood Pressure 134/65 126/65 Pulse Oximetry 100 100 100 12/22/17 09:30 12/22/17 15:45 Temperature Pulse Rate 109 H Respiratory Rate 18 18 Blood Pressure 126/59 L Pulse Oximetry 100 100 Intake & Output 12/21/17 12/22/17 12/22/17 18:59 06:59 18:59 Intake Total 650 / 650 550 / 550 300 / 300 Output Total 1999 175 / 175 Balance -1350 / -1350 375 / 375 300 / 300 Weight 68.5 kg Intake: IV 650 / 650 550 / 550 300 / 300 Protonix Inj 80 MG In NS Inj 100 / 100 100 / 100 100 / 100 100 ML @ 10 mls/hr IV.CONT Q10H [facility] Rx#:[id number] Diprivan 1000 mg/100 ml Inj 1, 100 / 100 100 / 100 100 / 100 000 mg In 100 ml @ 5 MCG/KG/MIN 2.859 mls/hr IV.CONT TITRATE PRN Rx#:[id number] Mycamine Inj 100 MG In NS Inj 100 / 100 100 / 100 100 ML @ 100 mls/hr IV.SIG Q24H [facility] Rx#:[id number] Zosyn 2.25 GM Premix 50 ML @ 100 / 100 100 / 100 100 mls/hr IV.SIG Q8H [facility] Rx#: [id number] Vancomycin Inj 1,000 MG In NS 250 / 250 Inj 250 ML @ 250 mls/hr IV.SIG ONCE ONE Rx#:[id number] fentaNYL 10 mcg/mL Premix Drip 250 / 250 2,500 mcg In 250 ml @ 50 MCG/HR 5 mls/hr IV.SIG TITRATE PRN Rx #:[id number] Output: Hemodialysis Amount 1999 Wound Drainage 175 / 175 # 2 Right Abdomen 175 / 175 Other: Date of Last Bowel Movement 12/21/17 12/22/17 12/21/17 # Incontinent Bowel Movements 3 12/21/17 12:35 Tissue - Abdominal Gram Stain - Final 12/21/17 12:35 Tissue - Abdominal Wound Culture - Preliminary gram negative rods 12/07/17 10:10 Fluid - Pleural fluid Fungal Smear - Final No fungal elements seen 12/07/17 10:10 Fluid - Pleural fluid Fungal Culture - Preliminary No growth in 2 weeks 12/07/17 10:10 Fluid - Pleural fluid Acid Fast Bacilli Smear - Final No acid fast bacilli seen 12/07/17 10:10 Fluid - Pleural fluid Mycobacterial Culture - Preliminary No growth in 2 weeks Lab - Hematology Results 12/21/17 12/22/17 05:15 04:45 WBC 21.3 H RBC 2.64 L Hgb 7.6 L 8.1 L Hct 22.8 L MCV 86.7 MCH 29.0 MCHC 33.4 RDW 16.5 Plt Count 295 MPV 8.9 Prelim Diff (Auto) Slide review pending Neut % (Auto) 75.6 H Lymph % (Auto) 6.4 L [place] % (Auto) 12.8 H Eos % (Auto) 4.1 H Baso % (Auto) 1.1 Neut # (Auto) 16.1 H Lymph # (Auto) 1.4 [place]on # (Auto) 2.7 H Eos # (Auto) 0.9 H Baso # (Auto) 0.2 WBC Differential Manual diff final Seg Neuts % (Manual) 71 H Band Neuts % (Manual) 11 H Lymphocytes % (Manual) 7 L Monocytes % (Manual) 8 Eosinophils % (Manual) 2 Basophils % (Manual) 1 Abs Neuts (Manual) 17.5 H Differential Comment . Platelet Estimate Normal Platelet Morphology Normal Lab - Chemistry Results 12/21/17 12/21/17 12/21/17 05:15 13:41 20:14 Sodium 145 Potassium 3.1 L Chloride 107 Carbon Dioxide 23.4 Anion Gap 15 BUN 88 H Creatinine 6.85 H Estimated GFR 11 L POC Glucose 95 89 Random Glucose 93 Calcium 7.5 L Phosphorus 5.5 H D Magnesium 2.3 Total Bilirubin 0.6 AST 94 H ALT 94 H Alkaline Phosphatase 156 H Total Protein 5.2 L Albumin 1.6 L 12/21/17 12/22/17 12/22/17 23:20 04:45 04:55 Sodium 144 Potassium 3.2 L Chloride 105 Carbon Dioxide 24.3 Anion Gap 15 BUN 71 H Creatinine 6.43 H Estimated GFR 11 L POC Glucose 88 82 Random Glucose 78 Calcium 8.0 L Phosphorus 7.1 H D Magnesium Total Bilirubin AST ALT Alkaline Phosphatase Total Protein Albumin 1.7 L 12/22/17 12/22/17 07:27 16:12 Sodium Potassium Chloride Carbon Dioxide Anion Gap BUN Creatinine Estimated GFR POC Glucose 87 93 Random Glucose Calcium Phosphorus Magnesium Total Bilirubin AST ALT Alkaline Phosphatase Total Protein Albumin Imaging: ITS Impressions Head MRI 12/03/17 00:00 CONCLUSION: 1. Minimal nonspecific periventricular white matter changes. 2. No restricted diffusion to suggest an acute ischemic event. 3. No evidence for significant ischemic changes. Chest CT 12/04/17 00:06 CONCLUSION: 1. Left greater than right pleural effusions and basilar atelectasis. 2. No hemorrhage or hematoma demonstrated. 3. Distended and fluid-filled esophagus. No wall thickening. Patient is status post gastrectomy. Nasogastric tube is at the GE junction. 4. Body wall edema/anasarca. Abdomen X-Ray 12/08/17 00:00 CONCLUSION: 1. 2 left-sided abdominal catheters. 2. Nonspecific bowel gas pattern. Abdomen/Pelvis CT 12/13/17 00:00 CONCLUSION: 1. New proximal small bowel dilatation. No discrete transition point. Contrast is seen in the distal small bowel. Findings may represent ileus or partial obstruction. 2. Postsurgical findings with surgical drains in the left upper quadrant. Free fluid is seen in the left upper quadrant. Loculated rounded 5 cm area of fluid with thin peripheral enhancement also noted just inferior to the surgical drains. 3. Prominent left lower lobe pulmonary consolidation and small left pleural effusion. GI Bleed Scan Nuclear Medicine 12/15/17 00:00 CONCLUSION: No active bleeding demonstrated. Chest X-Ray 12/22/17 00:00 CONCLUSION: 1. Persistent patchy infiltrate within the left lung base. 2. Multiple tubes and lines are stable. The nasogastric tube remains with its tip in the distal esophagus. New right subclavian central line has its tip in superior vena cava. No pneumothorax is noted. Small Bowel X-Ray 12/22/17 00:00 CONCLUSION: No evidence of bowel obstruction. There is mild diffuse small bowel wall thickening identified within the jejunum and ileum consistent with possible edema given the appearance on initial imaging. Drain overlying the left lower quadrant. Physical Exam: GENERAL: Patient on the vent, on sedation, but he is awake and following. NAD HEENT: EOMI, ASHKAN. Mucosa is moist. Orally intubated NECK: Supple. LUNGS: Decreased breath sounds at bases HEART: Regular S1, S2. No murmur. ABDOMEN: Decreased bowel sounds. Erythema around gastric tube. Green/charles drainage around the gastric tube. (+) tenderness. ZAINAB drain has serous drainage. EXTREMITIES: No clubbing or cyanosis. Both upper extremities has edema. SKIN: No diffuse rash. NEUROLOGIC: awake, and following. PSYCHIATRIC: calm LINES: No evidence of infection Assessment and Plan - Plan IMPRESSION: Candidemia following gastric perforation and gastric ischemia. Blood culture at [facility] in [place] on 11/26 had Starr glabrata. Repeat blood culture is negative. Status post abdominal surgery. ? abdominal wall infection at Gastric feeding tube site. Leukocytosis, persistent Fevers better Acute respiratory failure. left pleural effusion. Possible Aspiration. Acute kidney disease. - On HD Recent cardiac arrest. Abx associated diarrhea, bowel wall thickening c.diff neg. RECOMMENDATIONS: Continue micafungin for candidemia. Continue piperacillin/tazobactam. Give another dose vanco today and check level in AM Follow new C/S Follow CBC Follow temps Weaning per CCM D/W RN Spoke with mother
[2017-12-22] MEDS: fentaNYL 10 mcg/mL Premix Drip 2,500 MCG/250 ML BAG IV.SIG PRN (21:26)
[2017-12-23] MEDS: Pantoprazole Inj 80 MG in Sodium Chlor 0.9% Inj 100 ML IV.CONT SCH ×3 (00:26→20:45)
[2017-12-23] MEDS: Oral Hygiene Kit OROPHARYNG SCH ×2 (00:26→05:37)
[2017-12-23] MEDS: Insulin NovoLOG Aspart Correctional Sugar Inj SQ SCH ×2 (00:32→05:36)
[2017-12-23] MEDS: Labetalol HCl Inj 100 MG/20 ML Vial IV.PUSH PRN (03:53)
[2017-12-23 05:31] LABS: Albumin 1.7 g/dL (3.4-5.0); Calcium 8.1 mg/dL (8.5-10.1); Carbon Dioxide 22.7 meq/L (21.0-32.0); Phosphorus 9.1 mg/dL (2.5-4.9); Potassium 3.6 meq/L (3.5-5.1); Vancomycin,Random 31.4 Comment
[2017-12-23] MEDS: Piperacil/Tazo 2.25 GM Premix 50 ML IV.SIG SCH (06:24)
[2017-12-23] MEDS: Chlorhexidine 0.12% Oral Kit 15 ML UDC OROPHARYNG SCH (09:27)
--- NOTE | 2017-12-23 12:07 | P.PNNP ---
Subjective Interval history: Vas cath placed yesterday, plan for hemodialysis today. Patient is resting comfortably with family at bedside. Extubated yesterday, does not have any acute complaints. <Princess Martel - Last Filed: 12/23/17 12:00> Physical Exam Vital signs: Vital Signs 12/22/17 12:30 12/22/17 12:50 12/22/17 12:55 Temperature Pulse Rate 103 H 104 H 100 H Respiratory Rate 35 H 38 H 67 H Blood Pressure 122/64 118/65 123/60 Pulse Oximetry 100 100 100 12/22/17 13:00 12/22/17 13:05 12/22/17 13:10 Temperature Pulse Rate 101 H 101 H 98 H Respiratory Rate 68 H 62 H 65 H Blood Pressure 133/60 130/60 123/59 L Pulse Oximetry 100 100 100 12/22/17 13:15 12/22/17 13:20 12/22/17 13:25 Temperature Pulse Rate 98 H 98 H 99 H Respiratory Rate 61 H 79 H 38 H Blood Pressure 121/62 113/57 L 114/56 L Pulse Oximetry 100 100 100 12/22/17 13:30 12/22/17 13:35 12/22/17 13:40 Temperature Pulse Rate 98 H 98 H Respiratory Rate 57 H 57 H 31 H Blood Pressure 112/55 L 108/58 L 139/64 Pulse Oximetry 100 100 100 12/22/17 14:00 12/22/17 14:03 12/22/17 14:33 Temperature Pulse Rate 100 H 104 H 95 H Respiratory Rate 36 H 34 H 39 H Blood Pressure 143/68 H 151/70 H Pulse Oximetry 100 100 100 12/22/17 15:00 12/22/17 15:03 12/22/17 15:33 Temperature Pulse Rate 101 H 102 H 105 H Respiratory Rate 37 H 39 H 35 H Blood Pressure 144/63 H 135/63 Pulse Oximetry 100 100 100 12/22/17 15:45 12/22/17 16:00 12/22/17 16:03 Temperature 98.4 F Pulse Rate 106 H 106 H Respiratory Rate 18 40 H 34 H Blood Pressure 135/63 135/59 L Pulse Oximetry 100 100 100 12/22/17 16:33 12/22/17 17:00 12/22/17 17:03 Temperature Pulse Rate 115 H 114 H 115 H Respiratory Rate 18 18 17 Blood Pressure 129/59 L 132/62 Pulse Oximetry 100 100 100 12/22/17 17:33 12/22/17 18:00 12/22/17 18:03 Temperature Pulse Rate 112 H 107 H Respiratory Rate 19 18 Blood Pressure 131/67 141/74 H Pulse Oximetry 100 100 100 12/22/17 18:33 12/22/17 19:00 12/22/17 19:03 Temperature Pulse Rate 105 H 107 H 106 H Respiratory Rate 14 17 15 Blood Pressure 142/63 H 151/70 H Pulse Oximetry 100 100 100 12/22/17 19:33 12/22/17 20:00 12/22/17 20:03 Temperature 98.7 F Pulse Rate 109 H 107 H 109 H Respiratory Rate 15 13 14 Blood Pressure 137/67 137/67 136/74 Pulse Oximetry 100 100 100 12/22/17 20:33 12/22/17 21:00 12/22/17 21:03 Temperature Pulse Rate 110 H 107 H 108 H Respiratory Rate 18 12 13 Blood Pressure 135/73 137/74 Pulse Oximetry 100 100 100 12/22/17 21:33 12/22/17 22:00 12/22/17 22:03 Temperature Pulse Rate 113 H 118 H 114 H Respiratory Rate 17 20 20 Blood Pressure 129/64 128/64 Pulse Oximetry 100 100 100 12/22/17 22:16 12/22/17 22:27 12/22/17 22:33 Temperature Pulse Rate 112 H Respiratory Rate 16 19 Blood Pressure 130/69 Pulse Oximetry 97 100 12/22/17 23:00 12/22/17 23:03 12/22/17 23:33 Temperature Pulse Rate 109 H 118 H 113 H Respiratory Rate 19 22 23 Blood Pressure 162/77 H 149/65 H Pulse Oximetry 100 100 12/23/17 00:00 12/23/17 00:03 12/23/17 00:33 Temperature 99.1 F Pulse Rate 111 H 109 H 111 H Respiratory Rate 15 14 13 Blood Pressure 145/68 H 145/68 H 148/72 H Pulse Oximetry 100 100 100 12/23/17 01:00 12/23/17 01:03 12/23/17 01:33 Temperature Pulse Rate 108 H 113 H 119 H Respiratory Rate 12 16 23 Blood Pressure 144/73 H 148/66 H Pulse Oximetry 100 100 100 12/23/17 02:00 12/23/17 02:03 12/23/17 02:33 Temperature Pulse Rate 118 H 119 H 120 H Respiratory Rate 21 24 23 Blood Pressure 133/63 132/68 Pulse Oximetry 95 12/23/17 03:00 12/23/17 03:03 12/23/17 03:33 Temperature Pulse Rate 120 H 117 H 124 H Respiratory Rate 21 24 25 H Blood Pressure 144/73 H 139/69 Pulse Oximetry 96 97 97 12/23/17 04:00 12/23/17 04:03 12/23/17 04:33 Temperature Pulse Rate 122 H 120 H 104 H Respiratory Rate 21 21 21 Blood Pressure 136/64 136/64 132/67 Pulse Oximetry 98 96 97 12/23/17 05:00 12/23/17 05:03 12/23/17 05:33 Temperature Pulse Rate 104 H 103 H 105 H Respiratory Rate 23 23 27 H Blood Pressure 125/64 120/60 Pulse Oximetry 97 97 98 12/23/17 06:00 12/23/17 06:03 12/23/17 06:32 Temperature Pulse Rate 108 H Respiratory Rate 19 Blood Pressure 115/57 L 115/57 L Pulse Oximetry 97 97 95 12/23/17 06:33 12/23/17 07:00 12/23/17 07:03 Temperature Pulse Rate Respiratory Rate Blood Pressure 118/58 L 119/56 L Pulse Oximetry 82 L 82 L 12/23/17 07:33 12/23/17 08:00 12/23/17 08:03 Temperature 98 F Pulse Rate 105 H 104 H 104 H Respiratory Rate 25 H 23 16 Blood Pressure 117/58 L 117/56 L Pulse Oximetry 98 97 12/23/17 08:33 12/23/17 09:00 12/23/17 09:03 Temperature Pulse Rate 102 H 104 H 102 H Respiratory Rate 22 15 14 Blood Pressure 130/61 129/59 L Pulse Oximetry 98 95 96 12/23/17 09:23 12/23/17 09:33 12/23/17 10:00 Temperature Pulse Rate 103 H 103 H Respiratory Rate 35 H 22 Blood Pressure 121/55 L Pulse Oximetry 96 97 97 12/23/17 10:03 Temperature Pulse Rate 104 H Respiratory Rate 22 Blood Pressure 107/51 L Pulse Oximetry 97 Intake & Output 12/22/17 12/23/1718 18:59 06:59 18:59 Intake Total 700 / 700 1070 / 1070 150 / 150 Output Total 1775 / 1775 525 / 525 Balance -1075 / -1075 545 / 545 150 / 150 Weight 69.5 kg Intake: IV 520 / 520 650 / 650 150 / 150 Protonix Inj 80 MG In NS Inj 100 / 100 100 / 100 100 / 100 100 ML @ 10 mls/hr IV.CONT Q10H [facility] Rx#:[id number] Diprivan 1000 mg/100 ml Inj 1, 170 / 170 000 mg In 100 ml @ 5 MCG/KG/MIN 2.859 mls/hr IV.CONT TITRATE PRN Rx#:[id number] Mycamine Inj 100 MG In NS Inj 100 / 100 100 ML @ 100 mls/hr IV.SIG Q24H [facility] Rx#:[id number] Zosyn 2.25 GM Premix 50 ML @ 50 / 50 50 / 50 50 / 50 100 mls/hr IV.SIG Q8H [facility] Rx#: [id number] KCl 20 mEq Premix Inj 20 meq In 100 / 100 100 ml @ 50 mls/hr IV.SIG ONCE ONE Rx#:[id number] Vancomycin Inj 1,000 MG In NS 250 / 250 Inj 250 ML @ 250 mls/hr IV.SIG ONCE ONE Rx#:[id number] fentaNYL 10 mcg/mL Premix Drip 250 / 250 2,500 mcg In 250 ml @ 50 MCG/HR 5 mls/hr IV.SIG TITRATE PRN Rx #:[id number] Oral 240 / 240 Tube Feeding 60 / 60 Tube Irrigant 180 / 180 Water Bolus Amount 120 / 120 Output: Stool 1500 / 1500 300 / 300 Wound Drainage 275 / 275 225 / 225 # 2 Right Abdomen 275 / 275 225 / 225 Other: Date of Last Bowel Movement 12/22/17 12/22/17 12/22/17 # Incontinent Bowel Movements 2 Narrative: GENERAL: Extubated, resting comfortably. NECK: Supple, trachea midline. No JVD or lymphadenopathy. CARDIOVASCULAR: Regular rate and rhythm without murmurs, gallops, or rubs. RESPIRATORY: Breath sounds diminished with rhonchi scattered bilaterally. No accessory muscle use. GASTROINTESTINAL: Abdomen soft. Bowel sounds present. No guarding. Abdominal binder on. MUSCULOSKELETAL: No cyanosis, 2 + upper extremity edema present. - Urinary Catheter Management Indwelling Temp Sensing Catheter Cath placed during this visit: no <Princess Martel - Last Filed: 12/23/17 12:00> Vital signs: Vital Signs 12/24/17 22:00 12/24/17 23:00 12/25/17 00:00 Temperature 97.8 F Pulse Rate 95 H 100 H 96 H Respiratory Rate 62 H 80 H 22 Blood Pressure 133/59 L 115/56 L 118/57 L Pulse Oximetry 96 97 95 12/25/17 01:00 12/25/17 02:00 12/25/17 03:00 Temperature Pulse Rate 94 H 95 H 98 H Respiratory Rate 20 80 H 20 Blood Pressure 157/71 H 172/75 H 163/78 H Pulse Oximetry 95 100 12/25/17 04:00 12/25/17 05:00 12/25/17 06:00 Temperature 97.9 F Pulse Rate 94 H 101 H 110 H Respiratory Rate 22 68 H 57 H Blood Pressure 137/61 143/63 H 153/68 H Pulse Oximetry 97 100 100 12/25/17 07:00 12/25/17 08:00 12/25/17 08:45 Temperature 97.9 F Pulse Rate 94 H 94 H 91 H Respiratory Rate 34 H 27 H 38 H Blood Pressure 156/72 H 143/65 H 158/74 H Pulse Oximetry 100 100 99 12/25/17 09:00 12/25/17 09:15 12/25/17 09:30 Temperature Pulse Rate 89 98 H Respiratory Rate 21 28 H Blood Pressure 175/72 H 175/74 H 140/63 Pulse Oximetry 100 100 12/25/17 09:45 12/25/17 10:00 12/25/17 10:15 Temperature Pulse Rate 92 H Respiratory Rate 39 H Blood Pressure 152/71 H 131/55 L 141/67 H Pulse Oximetry 100 12/25/17 10:30 12/25/17 10:45 12/25/17 11:00 Temperature Pulse Rate 100 H 96 H Respiratory Rate 13 20 Blood Pressure 152/73 H 156/70 H 148/75 H Pulse Oximetry 100 100 12/25/17 11:15 12/25/17 11:30 12/25/17 11:45 Temperature Pulse Rate 90 74 89 Respiratory Rate 71 H 29 H 44 H Blood Pressure 153/69 H 155/68 H 147/68 H Pulse Oximetry 99 100 100 12/25/17 12:00 12/25/17 13:00 12/25/17 13:55 Temperature 99.9 F H Pulse Rate 73 92 H 102 H Respiratory Rate 57 H 63 H 34 H Blood Pressure 155/71 H 148/70 H 134/70 Pulse Oximetry 95 97 12/25/17 14:00 12/25/17 14:20 12/25/17 14:55 Temperature Pulse Rate 103 H 101 H Respiratory Rate 31 H 25 H 28 H Blood Pressure 149/71 H Pulse Oximetry 97 99 12/25/17 15:00 12/25/17 15:55 12/25/17 16:00 Temperature 99.0 F Pulse Rate 94 H 108 H 105 H Respiratory Rate 14 70 H 53 H Blood Pressure 141/72 H Pulse Oximetry 99 100 99 12/25/17 16:55 12/25/17 17:00 12/25/17 17:29 Temperature Pulse Rate 126 H 125 H 115 H Respiratory Rate 29 H 22 77 H Blood Pressure 192/111 H 137/62 Pulse Oximetry 99 98 99 12/25/17 17:55 12/25/17 18:00 12/25/17 18:55 Temperature Pulse Rate 87 104 H 118 H Respiratory Rate 87 H 54 H 76 H Blood Pressure 139/69 137/63 Pulse Oximetry 98 99 100 12/25/17 19:00 Temperature Pulse Rate 117 H Respiratory Rate 41 H Blood Pressure Pulse Oximetry 99 Intake & Output 12/25/17 12/25/17 12/26/17 06:59 18:59 06:59 Intake Total 840 / 840 650 / 650 Output Total 420 / 420 1600 / 1600 Balance 420 / 420 -950 / -950 Weight 64.2 kg Intake: IV 200 / 200 650 / 650 Protonix Inj 80 MG In NS Inj 100 / 100 100 / 100 100 ML @ 10 mls/hr IV.CONT Q10H [facility] Rx#:[id number] Merrem Inj 500 MG In NS Inj 100 100 / 100 200 / 200 ML @ 200 mls/hr IV.SIG Q8H [facility] Rx#:[id number] Mycamine Inj 100 MG In NS Inj 100 / 100 100 ML @ 100 mls/hr IV.SIG Q24H [facility] Rx#:[id number] fentaNYL 10 mcg/mL Premix Drip 250 / 250 2,500 mcg In 250 ml @ 50 MCG/HR 5 mls/hr IV.SIG TITRATE PRN Rx #:[id number] Oral 640 / 640 Output: Urine 0 / 0 Stool 200 / 200 400 / 400 Hemodialysis Amount 1000 / 1000 Wound Drainage 220 / 220 200 / 200 # 2 Right Abdomen 220 / 220 200 / 200 Other: Date of Last Bowel Movement 12/25/17 12/25/17 12/25/17 - Urinary Catheter Management Indwelling Temp Sensing Catheter Cath placed during this visit: no <Jolie Connor - Last Filed: 12/25/17 21:16> Assessment and Plan - Assessment (1) AJCLYN (acute kidney injury) Code(s): N17.9 - Acute kidney failure, unspecified Status: Acute Plan: Anuric renal failure, he has become dialysis dependent. Vas cath placement per CC on 09/22 Avoid nephrotoxic agents. PO4 elevated continue PhosLo Hemodialysis today at bedside, will remove fluid as tolerated. Continue supportive care and monitor for renal recovery. (2) Acute respiratory failure Code(s): J96.00 - Acute respiratory failure, unspecified whether with hypoxia or hypercapnia Status: Acute Qualifiers: Respiratory failure complication: hypoxia Qualified Code(s): J96.01 - Acute respiratory failure with hypoxia Plan: Resolved, Extubated, on room air (3) Gastric perforation Code(s): K25.5 - Chronic or unspecified gastric ulcer with perforation Status : Resolved Plan: s/p surgery. Subtotal gastrectomy in [place]. In [facility] he had: Dinh-en-y esophagojejunostomy, feeding jejunostomy placement, diagnostic EGD, primary fascial closure. Date of procedure: 11/28/17 Negative bleeding scan - follow with GI, surgery. No immediate surgical plans at this point (4) Candidemia Code(s): B37.7 - Candidal sepsis Status: Acute Plan: On Micafungin. Dose medications appropriate to renal function. (5) DVT (deep venous thrombosis) Code(s): I82.409 - Acute embolism and thrombosis of unspecified deep veins of unspecified lower extremity Status: Acute Plan: DVT of bilateral upper extremities. (6) Anemia Code(s): D64.9 - Anemia, unspecified Status: Acute Plan: HGB dropped to 7.6 Could be multifactorial. Plan to transfuse 1 unit of PRBC today <Princess Martel - Last Filed: 12/23/17 12:00> - Assessment (1) JACLYN (acute kidney injury) Code(s): N17.9 - Acute kidney failure, unspecified Status: Acute Plan: Patient seen and examined, agree with above. Seen during HD, remove fluid as tolerated. Watch for renal recovery. (2) Acute respiratory failure Code(s): J96.00 - Acute respiratory failure, unspecified whether with hypoxia or hypercapnia Status: Acute Qualifiers: Respiratory failure complication: hypoxia Qualified Code(s): J96.01 - Acute respiratory failure with hypoxia (3) Gastric perforation Code(s): K25.5 - Chronic or unspecified gastric ulcer with perforation Status : Resolved (4) Candidemia Code(s): B37.7 - Candidal sepsis Status: Acute (5) DVT (deep venous thrombosis) Code(s): I82.409 - Acute embolism and thrombosis of unspecified deep veins of unspecified lower extremity Status: Acute (6) Anemia Code(s): D64.9 - Anemia, unspecified Status: Acute <Jolie Connor - Last Filed: 12/25/17 21:16>
[2017-12-23] MEDS ORDERED: ASP: Documented ESBL, MDR A baumannii or P. aeruginosa OTHER PRN (12:32)
--- NOTE | 2017-12-23 12:34 | P.PNID ---
Subjective Remarks: ID Coverage [id number] Y/O male initially admitted 11/22 with severe abdominal pain. Found to have ischemic part of his stomach with perforation. Underwent subtotal gastrectomy. Bowel was in discontinuity following subtotal gastrectomy and patient was transferred to [facility]. On reexploration 11/28 he underwent Dinh- en-y esophagojejunostomy, feeding jejunostomy placement, diagnostic EGD, primary fascial closure. He was transferred back here 11/30. Got reintubated and has been intubated. Notes reviewed Extubated yesterday Doing well on nasal O2 Getting ready for HD New vascath placed 12/22 Has new line RSC placed 12/22 Has been on Rx for Starr glabrata sepsis while in [facility] On the vent - on CPAP, prob extubation today Temps ok WBC remains elevated CXR mild L base infiltrate last sputum 12/04 NF No (+) BC here C/S jejunostomy site with GNR Got Vanco yesterday - level 17 today Antibiotics: Micafungin Zosyn vanco Lines: RSC TLC RIJ vacsath Past Medical History: Reviewed Allergies/Adverse Reactions: Allergies No Known Allergies Allergy (Verified 11/22/17 02:38) Objective Vital Signs 12/22/17 12:50 12/22/17 12:55 12/22/17 13:00 Temperature Pulse Rate 104 H 100 H 101 H Respiratory Rate 38 H 67 H 68 H Blood Pressure 118/65 123/60 133/60 Pulse Oximetry 100 100 100 12/22/17 13:05 12/22/17 13:10 12/22/17 13:15 Temperature Pulse Rate 101 H 98 H 98 H Respiratory Rate 62 H 65 H 61 H Blood Pressure 130/60 123/59 L 121/62 Pulse Oximetry 100 100 100 12/22/17 13:20 12/22/17 13:25 12/22/17 13:30 Temperature Pulse Rate 98 H 99 H 98 H Respiratory Rate 79 H 38 H 57 H Blood Pressure 113/57 L 114/56 L 112/55 L Pulse Oximetry 100 100 100 12/22/17 13:35 12/22/17 13:40 12/22/17 14:00 Temperature Pulse Rate 98 H 100 H Respiratory Rate 57 H 31 H 36 H Blood Pressure 108/58 L 139/64 Pulse Oximetry 100 100 100 12/22/17 14:03 12/22/17 14:33 12/22/17 15:00 Temperature Pulse Rate 104 H 95 H 101 H Respiratory Rate 34 H 39 H 37 H Blood Pressure 143/68 H 151/70 H Pulse Oximetry 100 100 100 12/22/17 15:03 12/22/17 15:33 12/22/17 15:45 Temperature Pulse Rate 102 H 105 H Respiratory Rate 39 H 35 H 18 Blood Pressure 144/63 H 135/63 Pulse Oximetry 100 100 100 12/22/17 16:00 12/22/17 16:03 12/22/17 16:33 Temperature 98.4 F Pulse Rate 106 H 106 H 115 H Respiratory Rate 40 H 34 H 18 Blood Pressure 135/63 135/59 L 129/59 L Pulse Oximetry 100 100 100 12/22/17 17:00 12/22/17 17:03 12/22/17 17:33 Temperature Pulse Rate 114 H 115 H Respiratory Rate 18 17 Blood Pressure 132/62 131/67 Pulse Oximetry 100 100 100 12/22/17 18:00 12/22/17 18:03 12/22/17 18:33 Temperature Pulse Rate 112 H 107 H 105 H Respiratory Rate 19 18 14 Blood Pressure 141/74 H 142/63 H Pulse Oximetry 100 100 100 12/22/17 19:00 12/22/17 19:03 12/22/17 19:33 Temperature Pulse Rate 107 H 106 H 109 H Respiratory Rate 17 15 15 Blood Pressure 151/70 H 137/67 Pulse Oximetry 100 100 100 12/22/17 20:00 12/22/17 20:03 12/22/17 20:33 Temperature 98.7 F Pulse Rate 107 H 109 H 110 H Respiratory Rate 13 14 18 Blood Pressure 137/67 136/74 135/73 Pulse Oximetry 100 100 100 12/22/17 21:00 12/22/17 21:03 12/22/17 21:33 Temperature Pulse Rate 107 H 108 H 113 H Respiratory Rate 12 13 17 Blood Pressure 137/74 129/64 Pulse Oximetry 100 100 100 12/22/17 22:00 12/22/17 22:03 12/22/17 22:16 Temperature Pulse Rate 118 H 114 H Respiratory Rate 20 20 Blood Pressure 128/64 Pulse Oximetry 100 100 97 12/22/17 22:27 12/22/17 22:33 12/22/17 23:00 Temperature Pulse Rate 112 H 109 H Respiratory Rate 16 19 19 Blood Pressure 130/69 Pulse Oximetry 100 100 12/22/17 23:03 12/22/17 23:33 12/23/17 00:00 Temperature 99.1 F Pulse Rate 118 H 113 H 111 H Respiratory Rate 22 23 15 Blood Pressure 162/77 H 149/65 H 145/68 H Pulse Oximetry 100 100 12/23/17 00:03 12/23/17 00:33 12/23/17 01:00 Temperature Pulse Rate 109 H 111 H 108 H Respiratory Rate 14 13 12 Blood Pressure 145/68 H 148/72 H Pulse Oximetry 100 100 100 12/23/17 01:03 12/23/17 01:33 12/23/17 02:00 Temperature Pulse Rate 113 H 119 H 118 H Respiratory Rate 16 23 21 Blood Pressure 144/73 H 148/66 H Pulse Oximetry 100 100 12/23/17 02:03 12/23/17 02:33 12/23/17 03:00 Temperature Pulse Rate 119 H 120 H 120 H Respiratory Rate 24 23 21 Blood Pressure 133/63 132/68 Pulse Oximetry 95 96 12/23/17 03:03 12/23/17 03:33 12/23/17 04:00 Temperature Pulse Rate 117 H 124 H 122 H Respiratory Rate 24 25 H 21 Blood Pressure 144/73 H 139/69 136/64 Pulse Oximetry 97 97 98 12/23/17 04:03 12/23/17 04:33 12/23/17 05:00 Temperature Pulse Rate 120 H 104 H 104 H Respiratory Rate 21 21 23 Blood Pressure 136/64 132/67 Pulse Oximetry 96 97 97 12/23/17 05:03 12/23/17 05:33 12/23/17 06:00 Temperature Pulse Rate 103 H 105 H 108 H Respiratory Rate 23 27 H 19 Blood Pressure 125/64 120/60 115/57 L Pulse Oximetry 97 98 97 12/23/17 06:03 12/23/17 06:32 12/23/17 06:33 Temperature Pulse Rate Respiratory Rate Blood Pressure 115/57 L 118/58 L Pulse Oximetry 97 95 12/23/17 07:00 12/23/17 07:03 12/23/17 07:33 Temperature Pulse Rate 105 H Respiratory Rate 25 H Blood Pressure 119/56 L 117/58 L Pulse Oximetry 82 L 82 L 12/23/17 08:00 12/23/17 08:03 12/23/17 08:33 Temperature 98 F Pulse Rate 104 H 104 H 102 H Respiratory Rate 23 16 22 Blood Pressure 117/56 L 130/61 Pulse Oximetry 98 97 98 12/23/17 09:00 12/23/17 09:03 12/23/17 09:23 Temperature Pulse Rate 104 H 102 H Respiratory Rate 15 14 Blood Pressure 129/59 L Pulse Oximetry 95 96 96 12/23/17 09:33 12/23/17 10:00 12/23/17 10:03 Temperature Pulse Rate 103 H 103 H 104 H Respiratory Rate 35 H 22 22 Blood Pressure 121/55 L 107/51 L Pulse Oximetry 97 97 97 Intake & Output 12/22/17 12/23/17 12/23/17 18:59 06:59 18:59 Intake Total 700 / 700 1070 / 1070 150 / 150 Output Total 1775 / 1775 525 / 525 Balance -1075 / -1075 545 / 545 150 / 150 Weight 69.5 kg Intake: IV 520 / 520 650 / 650 150 / 150 Protonix Inj 80 MG In NS Inj 100 / 100 100 / 100 100 / 100 100 ML @ 10 mls/hr IV.CONT Q10H [facility] Rx#:[id number] Diprivan 1000 mg/100 ml Inj 1, 170 / 170 000 mg In 100 ml @ 5 MCG/KG/MIN 2.859 mls/hr IV.CONT TITRATE PRN Rx#:[id number] Mycamine Inj 100 MG In NS Inj 100 / 100 100 ML @ 100 mls/hr IV.SIG Q24H [facility] Rx#:[id number] Zosyn 2.25 GM Premix 50 ML @ 50 / 50 50 / 50 50 / 50 100 mls/hr IV.SIG Q8H [facility] Rx#: [id number] KCl 20 mEq Premix Inj 20 meq In 100 / 100 100 ml @ 50 mls/hr IV.SIG ONCE ONE Rx#:[id number] Vancomycin Inj 1,000 MG In NS 250 / 250 Inj 250 ML @ 250 mls/hr IV.SIG ONCE ONE Rx#:[id number] fentaNYL 10 mcg/mL Premix Drip 250 / 250 2,500 mcg In 250 ml @ 50 MCG/HR 5 mls/hr IV.SIG TITRATE PRN Rx #:[id number] Oral 240 / 240 Tube Feeding 60 / 60 Tube Irrigant 180 / 180 Water Bolus Amount 120 / 120 Output: Stool 1500 / 1500 300 / 300 Wound Drainage 275 / 275 225 / 225 # 2 Right Abdomen 275 / 275 225 / 225 Other: Date of Last Bowel Movement 12/22/17 12/22/17 12/22/17 # Incontinent Bowel Movements 2 12/21/17 12:35 Tissue - Abdominal Gram Stain - Final 12/21/17 12:35 Tissue - Abdominal Wound Culture - Final Klebsiella oxytoca ESBL pos 12/07/17 10:10 Fluid - Pleural fluid Fungal Smear - Final No fungal elements seen 12/07/17 10:10 Fluid - Pleural fluid Fungal Culture - Preliminary No growth in 2 weeks 12/07/17 10:10 Fluid - Pleural fluid Acid Fast Bacilli Smear - Final No acid fast bacilli seen 12/07/17 10:10 Fluid - Pleural fluid Mycobacterial Culture - Preliminary No growth in 2 weeks Lab - Hematology Results 12/22/17 12/23/17 04:45 04:25 Hgb 8.1 L 7.6 L Lab - Chemistry Results 12/21/17 12/21/17 12/21/17 13:41 20:14 23:20 Sodium Potassium Chloride Carbon Dioxide Anion Gap BUN Creatinine Estimated GFR POC Glucose 95 89 88 Random Glucose Calcium Phosphorus Albumin 12/22/17 12/22/17 12/22/17 04:45 04:55 07:27 Sodium 144 Potassium 3.2 L Chloride 105 Carbon Dioxide 24.3 Anion Gap 15 BUN 71 H Creatinine 6.43 H Estimated GFR 11 L POC Glucose 82 87 Random Glucose 78 Calcium 8.0 L Phosphorus 7.1 H D Albumin 1.7 L 12/22/17 12/22/17 12/23/17 16:12 20:07 00:30 Sodium Potassium Chloride Carbon Dioxide Anion Gap BUN Creatinine Estimated GFR POC Glucose 93 94 97 Random Glucose Calcium Phosphorus Albumin 12/23/17 12/23/17 04:25 05:26 Sodium 148 H Potassium 3.6 Chloride 109 H Carbon Dioxide 22.7 Anion Gap 16 H BUN 92 H Creatinine 7.96 H Estimated GFR 9 L POC Glucose 95 Random Glucose 90 Calcium 8.1 L Phosphorus 9.1 H D Albumin 1.7 L Imaging: ITS Impressions Head MRI 12/03/17 00:00 CONCLUSION: 1. Minimal nonspecific periventricular white matter changes. 2. No restricted diffusion to suggest an acute ischemic event. 3. No evidence for significant ischemic changes. Chest CT 12/04/17 00:06 CONCLUSION: 1. Left greater than right pleural effusions and basilar atelectasis. 2. No hemorrhage or hematoma demonstrated. 3. Distended and fluid-filled esophagus. No wall thickening. Patient is status post gastrectomy. Nasogastric tube is at the GE junction. 4. Body wall edema/anasarca. Abdomen X-Ray 12/08/17 00:00 CONCLUSION: 1. 2 left-sided abdominal catheters. 2. Nonspecific bowel gas pattern. Abdomen/Pelvis CT 12/13/17 00:00 CONCLUSION: 1. New proximal small bowel dilatation. No discrete transition point. Contrast is seen in the distal small bowel. Findings may represent ileus or partial obstruction. 2. Postsurgical findings with surgical drains in the left upper quadrant. Free fluid is seen in the left upper quadrant. Loculated rounded 5 cm area of fluid with thin peripheral enhancement also noted just inferior to the surgical drains. 3. Prominent left lower lobe pulmonary consolidation and small left pleural effusion. GI Bleed Scan Nuclear Medicine 12/15/17 00:00 CONCLUSION: No active bleeding demonstrated. Chest X-Ray 12/22/17 00:00 CONCLUSION: 1. Persistent patchy infiltrate within the left lung base. 2. Multiple tubes and lines are stable. The nasogastric tube remains with its tip in the distal esophagus. New right subclavian central line has its tip in superior vena cava. No pneumothorax is noted. Small Bowel X-Ray 12/22/17 00:00 CONCLUSION: No evidence of bowel obstruction. There is mild diffuse small bowel wall thickening identified within the jejunum and ileum consistent with possible edema given the appearance on initial imaging. Drain overlying the left lower quadrant. Physical Exam: GENERAL:awake and following. NAD HEENT: EOMI, ASHKAN. Mucosa is moist. Orally intubated NECK: Supple. LUNGS: Decreased breath sounds at bases HEART: Regular S1, S2. No murmur. ABDOMEN: Decreased bowel sounds. Erythema around gastric tube. Green/charles drainage around the gastric tube. (+) tenderness. ZAINAB drain has serous drainage. EXTREMITIES: No clubbing or cyanosis. Both upper extremities has edema. SKIN: No diffuse rash. NEUROLOGIC: awake, and following. PSYCHIATRIC: calm LINES: No evidence of infection Assessment and Plan - Plan IMPRESSION: Candidemia following gastric perforation and gastric ischemia. Blood culture at [facility] in [place] on 11/26 had Starr glabrata. Repeat blood culture is negative. Status post abdominal surgery. ? abdominal wall infection at Gastric feeding tube site. Leukocytosis, persistent Fevers better Acute respiratory failure. left pleural effusion. Possible Aspiration. Acute kidney disease. - On HD Recent cardiac arrest. Abx associated diarrhea, bowel wall thickening c.diff neg. RECOMMENDATIONS: Continue micafungin for candidemia. Change piperacillin/tazobactam to Merem Will not give further Vanco Follow CBC Follow new C/S Follow dayana D/W RN Spoke with mother
--- NOTE | 2017-12-23 15:06 | P.PNGS ---
Subjective Patient reports: pain is less (ng pulled out lastnight, j tube clogged) Physical Exam Vital signs: Vital Signs 12/22/17 15:33 12/22/17 15:45 12/22/17 16:00 Temperature 98.4 F Pulse Rate 105 H 106 H Respiratory Rate 35 H 18 40 H Blood Pressure 135/63 135/63 Pulse Oximetry 100 100 100 12/22/17 16:03 12/22/17 16:33 12/22/17 17:00 Temperature Pulse Rate 106 H 115 H 114 H Respiratory Rate 34 H 18 18 Blood Pressure 135/59 L 129/59 L Pulse Oximetry 100 100 100 12/22/17 17:03 12/22/17 17:33 12/22/17 18:00 Temperature Pulse Rate 115 H 112 H Respiratory Rate 17 19 Blood Pressure 132/62 131/67 Pulse Oximetry 100 100 100 12/22/17 18:03 12/22/17 18:33 12/22/17 19:00 Temperature Pulse Rate 107 H 105 H 107 H Respiratory Rate 18 14 17 Blood Pressure 141/74 H 142/63 H Pulse Oximetry 100 100 100 12/22/17 19:03 12/22/17 19:33 12/22/17 20:00 Temperature 98.7 F Pulse Rate 106 H 109 H 107 H Respiratory Rate 15 15 13 Blood Pressure 151/70 H 137/67 137/67 Pulse Oximetry 100 100 100 12/22/17 20:03 12/22/17 20:33 12/22/17 21:00 Temperature Pulse Rate 109 H 110 H 107 H Respiratory Rate 14 18 12 Blood Pressure 136/74 135/73 Pulse Oximetry 100 100 100 12/22/17 21:03 12/22/17 21:33 12/22/17 22:00 Temperature Pulse Rate 108 H 113 H 118 H Respiratory Rate 13 17 20 Blood Pressure 137/74 129/64 Pulse Oximetry 100 100 100 12/22/17 22:03 18 22:16 12/22/17 22:27 Temperature Pulse Rate 114 H Respiratory Rate 20 16 Blood Pressure 128/64 Pulse Oximetry 100 97 12/22/17 22:33 18 23:00 12/22/17 23:03 Temperature Pulse Rate 112 H 109 H 118 H Respiratory Rate 19 19 22 Blood Pressure 130/69 162/77 H Pulse Oximetry 100 100 12/22/17 23:33 12/23/17 00:00 12/23/17 00:03 Temperature 99.1 F Pulse Rate 113 H 111 H 109 H Respiratory Rate 23 15 14 Blood Pressure 149/65 H 145/68 H 145/68 H Pulse Oximetry 100 100 100 12/23/17 00:33 12/23/17 01:00 12/23/17 01:03 Temperature Pulse Rate 111 H 108 H 113 H Respiratory Rate 13 12 16 Blood Pressure 148/72 H 144/73 H Pulse Oximetry 100 100 100 12/23/17 01:33 12/23/17 02:00 12/23/17 02:03 Temperature Pulse Rate 119 H 118 H 119 H Respiratory Rate 23 21 24 Blood Pressure 148/66 H 133/63 Pulse Oximetry 100 12/23/17 02:33 12/23/17 03:00 12/23/17 03:03 Temperature Pulse Rate 120 H 120 H 117 H Respiratory Rate 23 21 24 Blood Pressure 132/68 144/73 H Pulse Oximetry 95 96 97 12/23/17 03:33 12/23/17 04:00 12/23/17 04:03 Temperature Pulse Rate 124 H 122 H 120 H Respiratory Rate 25 H 21 21 Blood Pressure 139/69 136/64 136/64 Pulse Oximetry 97 98 96 12/23/17 04:33 12/23/17 05:00 12/23/17 05:03 Temperature Pulse Rate 104 H 104 H 103 H Respiratory Rate 21 23 23 Blood Pressure 132/67 125/64 Pulse Oximetry 97 97 97 12/23/17 05:33 12/23/17 06:00 12/23/17 06:03 Temperature Pulse Rate 105 H 108 H Respiratory Rate 27 H 19 Blood Pressure 120/60 115/57 L 115/57 L Pulse Oximetry 98 97 97 12/23/17 06:32 12/23/17 06:33 12/23/17 07:00 Temperature Pulse Rate Respiratory Rate Blood Pressure 118/58 L Pulse Oximetry 95 82 L 12/23/17 07:03 12/23/17 07:33 12/23/17 08:00 Temperature 98 F Pulse Rate 105 H 104 H Respiratory Rate 25 H 23 Blood Pressure 119/56 L 117/58 L Pulse Oximetry 82 L 98 12/23/17 08:03 12/23/17 08:33 12/23/17 09:00 Temperature Pulse Rate 104 H 102 H 104 H Respiratory Rate 16 22 15 Blood Pressure 117/56 L 130/61 Pulse Oximetry 97 98 95 12/23/17 09:03 12/23/17 09:23 12/23/17 09:33 Temperature Pulse Rate 102 H 103 H Respiratory Rate 14 35 H Blood Pressure 129/59 L 121/55 L Pulse Oximetry 96 96 97 12/23/17 10:00 12/23/17 10:03 12/23/17 10:33 Temperature Pulse Rate 103 H 104 H 103 H Respiratory Rate 22 22 20 Blood Pressure 107/51 L 109/55 L Pulse Oximetry 97 97 98 12/23/17 11:00 12/23/17 11:03 12/23/17 11:33 Temperature 98 F Pulse Rate 104 H 103 H 99 H Respiratory Rate 25 H 25 H 19 Blood Pressure 104/56 L 109/64 Pulse Oximetry 98 97 98 12/23/17 12:00 12/23/17 12:03 12/23/17 12:33 Temperature Pulse Rate 99 H 97 H 88 Respiratory Rate 26 H 19 13 Blood Pressure 121/56 L 131/62 Pulse Oximetry 98 97 97 12/23/17 13:00 12/23/17 13:03 12/23/17 13:18 Temperature Pulse Rate 89 95 H 96 H Respiratory Rate 15 16 15 Blood Pressure 121/58 L 117/61 Pulse Oximetry 98 98 98 12/23/17 13:33 12/23/17 13:48 12/23/17 14:00 Temperature Pulse Rate 94 H 94 H 86 Respiratory Rate 18 21 17 Blood Pressure 121/61 123/63 Pulse Oximetry 98 98 98 12/23/17 14:03 Temperature Pulse Rate 94 H Respiratory Rate 15 Blood Pressure 135/67 Pulse Oximetry 98 Intake & Output 12/22/17 12/23/17 12/23/17 18:59 06:59 18:59 Intake Total 700 / 700 1070 / 1070 150 / 150 Output Total 1775 / 1775 525 / 525 Balance -1075 / -1075 545 / 545 150 / 150 Weight 69.5 kg Intake: IV 520 / 520 650 / 650 150 / 150 Protonix Inj 80 MG In NS Inj 100 / 100 100 / 100 100 / 100 100 ML @ 10 mls/hr IV.CONT Q10H [facility] Rx#:[id number] Diprivan 1000 mg/100 ml Inj 1, 170 / 170 000 mg In 100 ml @ 5 MCG/KG/MIN 2.859 mls/hr IV.CONT TITRATE PRN Rx#:[id number] Mycamine Inj 100 MG In NS Inj 100 / 100 100 ML @ 100 mls/hr IV.SIG Q24H [facility] Rx#:[id number] Zosyn 2.25 GM Premix 50 ML @ 50 / 50 50 / 50 50 / 50 100 mls/hr IV.SIG Q8H [facility] Rx#: [id number] KCl 20 mEq Premix Inj 20 meq In 100 / 100 100 ml @ 50 mls/hr IV.SIG ONCE ONE Rx#:[id number] Vancomycin Inj 1,000 MG In NS 250 / 250 Inj 250 ML @ 250 mls/hr IV.SIG ONCE ONE Rx#:[id number] fentaNYL 10 mcg/mL Premix Drip 250 / 250 2,500 mcg In 250 ml @ 50 MCG/HR 5 mls/hr IV.SIG TITRATE PRN Rx #:[id number] Oral 240 / 240 Tube Feeding 60 / 60 Tube Irrigant 180 / 180 Water Bolus Amount 120 / 120 Output: Stool 1500 / 1500 300 / 300 Wound Drainage 275 / 275 225 / 225 # 2 Right Abdomen 275 / 275 225 / 225 Other: Date of Last Bowel Movement 12/22/17 12/22/17 12/22/17 # Incontinent Bowel Movements 2 - Routine Abdominal Exam Present: soft (granulation tissue, adam in place) - Urinary Catheter Management Indwelling Temp Sensing Catheter Cath placed during this visit: no Results - Labs 12/23/17 04:25 12/23/17 04:25 Laboratory Results - last 24 hr 12/22/17 12/22/17 12/23/17 16:12 20:07 00:30 Hgb Sodium Potassium Chloride Carbon Dioxide Anion Gap BUN Creatinine Estimated GFR POC Glucose 93 94 97 Random Glucose Calcium Phosphorus Albumin Random Vancomycin Blood Type Antibody Screen Antibody Identification Direct Antiglob Test MTS Gel Crossmatch Bld Prod Order Comment 12/23/17 12/23/17 12/23/17 04:25 04:25 05:26 Hgb 7.6 L Sodium 148 H Potassium 3.6 Chloride 109 H Carbon Dioxide 22.7 Anion Gap 16 H BUN 92 H Creatinine 7.96 H Estimated GFR 9 L POC Glucose 95 Random Glucose 90 Calcium 8.1 L Phosphorus 9.1 H D Albumin 1.7 L Random Vancomycin 31.4 Blood Type Antibody Screen Antibody Identification Direct Antiglob Test MTS Gel Crossmatch Bld Prod Order Comment 12/23/17 12/23/17 11:00 13:04 Hgb Sodium Potassium Chloride Carbon Dioxide Anion Gap BUN Creatinine Estimated GFR POC Glucose Random Glucose Calcium Phosphorus Albumin Random Vancomycin Blood Type A Positive Antibody Screen Positive H Antibody Identification Anti-Alisa Direct Antiglob Test Weakly positive H MTS Gel Crossmatch See Detail Bld Prod Order Comment - Imaging Imaging: ITS Impressions Head MRI 12/03/17 00:00 CONCLUSION: 1. Minimal nonspecific periventricular white matter changes. 2. No restricted diffusion to suggest an acute ischemic event. 3. No evidence for significant ischemic changes. Chest CT 12/04/17 00:06 CONCLUSION: 1. Left greater than right pleural effusions and basilar atelectasis. 2. No hemorrhage or hematoma demonstrated. 3. Distended and fluid-filled esophagus. No wall thickening. Patient is status post gastrectomy. Nasogastric tube is at the GE junction. 4. Body wall edema/anasarca. Abdomen X-Ray 12/08/17 00:00 CONCLUSION: 1. 2 left-sided abdominal catheters. 2. Nonspecific bowel gas pattern. Abdomen/Pelvis CT 12/13/17 00:00 CONCLUSION: 1. New proximal small bowel dilatation. No discrete transition point. Contrast is seen in the distal small bowel. Findings may represent ileus or partial obstruction. 2. Postsurgical findings with surgical drains in the left upper quadrant. Free fluid is seen in the left upper quadrant. Loculated rounded 5 cm area of fluid with thin peripheral enhancement also noted just inferior to the surgical drains. 3. Prominent left lower lobe pulmonary consolidation and small left pleural effusion. GI Bleed Scan Nuclear Medicine 12/15/17 00:00 CONCLUSION: No active bleeding demonstrated. Chest X-Ray 12/22/17 00:00 CONCLUSION: 1. Persistent patchy infiltrate within the left lung base. 2. Multiple tubes and lines are stable. The nasogastric tube remains with its tip in the distal esophagus. New right subclavian central line has its tip in superior vena cava. No pneumothorax is noted. Small Bowel X-Ray 12/22/17 00:00 CONCLUSION: No evidence of bowel obstruction. There is mild diffuse small bowel wall thickening identified within the jejunum and ileum consistent with possible edema given the appearance on initial imaging. Drain overlying the left lower quadrant. Assessment and Plan - Assessment (1) Gastric perforation Code(s): K25.5 - Chronic or unspecified gastric ulcer with perforation Status : Resolved Plan: 47yo male s/p Exlap and gastrectomy for gastric perforation, s/p esophagojejunostomy at [facility] - Plan PLAN extubated attempt swallow via speech, start clears if tolerates , tpn ADAM sxn transfuse 1U IR for j tube change this coming week
--- NOTE | 2017-12-23 15:48 | P.PNCC ---
Subjective Subjective Remarks/Hospital Course: Patient was recently [place] [facility] [place] and transferred to [facility] 11/26/17 after the following hospital course: 47-year-old -Tong[place] male with reportedly no past medical or past surgical history who was admitted to hospitalist service 11/22/17 after presenting with abdominal pain, nausea, vomiting. He had CT abd/pelvis with massive gastric distention. NG tube had been placed. I was called to patient's bedside for CODE BLUE PEA arrest. CPR was ongoing and patient had massive abdominal distension and gastric regurgitant in the airway. He was emergently intubated and large amount of gastric secretions suctioned from oropharynx. After 21 minutes of CPR, ROSC was obtained and he was profoundly hypotensive. Continued aggressive fluid resuscitation and initiated dopamine. He was transferred to [facility] where CVL and R radial art line were placed and he was given 7 L of crystalloid and albumin. CXR demonstrated pneumoperitoneum and Dr. Martin Gudino was called emergently and he immediately contacted OR for emergent ex lap. He had intraabdominal hypertension with IAP of 40 mmHg, though fortunately was able to be ventilated adequately after rocuronium 50 mg IV and was transferred to OR. Dr. Martin Gudino took to the operating room early in the morning on 11/23 and discovered tension pneumoperitoneum, massive gastric distension, ischemia of the proximal 2/3 of the stomach and large gastric perforation with massive intraperitoneal contamination with food particles. Dr. Isaacs placed 2 NGT and decompressed 2 L of succus. Patient had initial improvement in vital signs in the immediate postoperative period, however he subsequently became hypotensive requiring upward titration of levophed and addition of vasopressin and stress dose hydrocortisone. He remains on levophed 10 mcg/min, neosynephrine 80 mcg/ min, vasopressin 0.04 units/min with overall vasopressor requirement weaning overnight. He is oliguric and creatinine is continuing to climb. He was given 2 L of crystalloid and albumin overnight. He does have significant fluid losses with combination of abdominal dressing and NGT output, so I will give an additional L of crystalloid now to monitor hourly response as he certainly does not appear volume overloaded. Nonetheless Flotrac numbers are suggesting adequate volume status and we may be seeing the consequence of ischemic ATN. May ultimately require HD, however not at this time. Abdomen remains open and plan is to re-explore 11/25. 11/25: Patient has acceptable hemodynamics by Flotrac but remains septic with requirements for phenylephrine 200 mics per minute, Levophed 8 mics per minute and vasopressin 0.04 units/min for blood pressure support. This has improved overnight and the Bhavesh-Synephrine support has been weaned off completely. Acid base balance is acceptable. ATN has developed which will undoubtedly require hemodialysis. Potassium level is normal. He is at increased risk for an anesthetic now but there is an urgent need to check for residual gastric necrosis. 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 Since the source control surgery, the maintenance of normal acid-base balance has been less difficult. Patient remains anuric with a rising creatinine above 6.0. He is clearly ahead on volume and will benefit from dialysis. A 2 lumen hemodialysis catheter was placed on 11/25 and has been packed with dilute heparin solution. The right internal jugular central line is been in place for 4 days and accessed multiple times. The femoral art line has been in for 4 days. Shock liver was apparent after the cardiac arrest reflecting a transaminitis, elevated bilirubin, and prolonged INR. The INR has remained normal following the transfusion of 4 units of fresh frozen plasma prior to surgery yesterday. A 10% dextrose infusion continues because of ongoing problems with hypoglycemia. Thrombocytopenia at 37,000 persists. He has remained on antibiotic coverage with Pipracil/tazobactam and fungal coverage with fluconazole, all adjusted for renal failure. Present vasopressor requirements include levophed at 7 mics per minute and vasopressin at 0.04 units/min. The chest x-ray is consistent with minor aspiration at the time of his preoperative cardiac arrest on the floor and cultures have subsequently grown Klebsiella, pansensitive. The operative note will clarify the extent of the surgery but in essence the distal esophagus is stapled off and marked with 2 Prolene sutures. The antrum of the stomach is oversewn. Most of the stomach has been removed. The abdomen is open with a VAC dressing applied. Subjective: 11/29: Bowel was in discontinuity following subtotal gastrectomy and patient was transferred to [facility]. On reexploration 11/28 he underwent Dinh-en-y esophagojejunostomy, feeding jejunostomy placement, diagnostic EGD, primary fascial closure. Wound vac was applied to abdomen (though currently wet to dry dressing in place upon arrival). He was reportedly found to have candidemia and was started on micafungin and has undergone ophtho eval. Lines including CVL, Vascath and art line have all been changed at [facility] (though not clear when). He remains on mechanical ventilation and has been weaned off pressors. He was found to have BUE DVTs and is on heparin drip. He is on TPN and has been started on trickle tube feeds with Nepro via jejunostomy. NGT is to [facility]. He underwent HD postoperatively on 11/28. He has now been transferred back to [facility] for ongoing management. I have updated his father and stepmother. 11/30: Patient re-admitted s/p transfer from [facility] overnight, otherwise no acute issues. Scheduled to undergo HD today. 12/01: T-max 101.7, leukocytosis to 27,000 with bandemia. Now 3 days following Dinh-en-Y reconstruction of GI tract following sub-total gastrectomy for gastric necrosis. All new lines placed after diagnosis of candidemia. TPN infusing, jejunostomy at trickle flow and can be increased slowly per general surgery. 12/02: Marked leukocytosis with bandemia persists. Afebrile over last 24 hours. Leave NG tube across the esophageal anastomosis and surgical service will direct timing of contrast study about 7 days following surgery. Continue with spontaneous breathing trials. 12/03: extubated yesterday. since then, has not followed commands, and does not talk. appears to have clinically an aphasia, although his uremia or severe hypoactive delirium could present this way. purposeful movements. will obtain MRI to rule out acute ischemia, as this appears to be a new mental status change (11/29 /[facility] notes state interactive on ventilator). 12/04: reintubated overnight: more output from ZAINAB drains. hgb dropped to 7 this AM: receiving 1 unit prbc. MRI negative for acute change. EEG ordered today to rule out subclinical status epilepticus. also concern overnight for aspiration event. 12/05: T-max 99. WBC 24,000. Reintubated yesterday for respiratory failure probably related to aspiration. Trickle feeding continues through jejunostomy. Nasogastric tube is through the anastomosis and is to low intermittent. 12/06: Afebrile. WBC 26,000. Bandemia has largely resolved. There are bilateral pleural effusions which may need to be tapped to rule out infection or leak. Both lower lobes are consolidated on CAT scan, probably representing compressive atelectasis from the effusions. 12/07: White count remains elevated at 25,000. Total parenteral nutrition infusing and tolerated. Altered mental status persists, possibly related to the cardiac arrest on the floor prior to transfer to the ICU. 12/08: Tolerating total parenteral nutrition with good glucose control. Leukocytosis persists. Fluid tap from left chest bit cloudy, cultures pending. Maintaining adequate gas exchange on lower levels of fractional inspired oxygen. Aim for extubation trial again soon. 12/09: Patient considerably less edematous over the past several days following successful dialysis runs. Continually fails attempts at weaning parameters and desaturation. Left chest drainage is no growth by culture. White blood cell count remains elevated. 12/10: Remains intubated. WBC count elevated but stable. Left chest tube with 260 mL output in 24 hours. BUN/creatinine remains elevated 12/11: Remains intubated sedated hemoglobin dropped to 5.8 today. RN has noted lower GI bleed. Protonix IV every 12 started and GI consulted. Transfuse 2 units PRBC. Keep n.p.o. discussed with Dr. Wellington 12/12: Patient remains intubated sedated for vent synchrony. Hemoglobin stable 7.5. Endoscopy negative yesterday CT abdomen pelvis no active bleeding. Hemodynamically remained stable. Receiving hemodialysis at this time. Left chest tube with high output 450 mL in 24 hours. Attempt weaning trials starting today 12/13: Patient continues to lose blood. Hemoglobin 5.5. Plan to get colonoscopy today. Continues to have melanotic stools. The night RN aspirated blood from jejunostomy tube. Enteroscopy yesterday was unremarkable. Transfusing 3 units of PRBC repeat hemoglobin at 2 PM. No significant bloody output from ZAINAB drains. Will discuss with general surgery 12/14: Remains intubated sedated hemoglobin 7.9 today 1 unit PRBC ordered. Can melanotic stools or NG tube coffee-ground today. EGD yesterday showed friable mucosa at the esophageal anastomotic junction which was injected by GI. Otherwise endoscopies including colonoscopies unremarkable. Hemodynamically remained stable. Discussed extensively with GI and general surgery yesterday 12/15: Patient continues to have significant melanotic stools. Hemoglobin dropped to 7.8 and patient received 1 unit PRBC follow-up hemoglobin only 7.9. Additional 1 unit PRBC ordered. Status post EGD colonoscopy-essentially unremarkable except irritation at the esophageal anastomotic site. Bleeding is most likely small intestinal 12/16: Critically ill but slightly more stable today no obvious melanotic stools. According to the bedside RN when the tube feeds were disconnected there was some bleeding from the jejunostomy tube. Hemoglobin remained stable 7.8. Discussed with Dr. Wellington general surgeon, and his opinion bleeding likely from mucosal sloughing. Initiate spontaneous breathing trials 12/17: Remains critical hemoglobin dropped to 5.4 getting 3 units of PRBC. Extensive workup including EGD colonoscopy and bleeding scans x2 have been negative for active bleed. This seems to be most likely small intestinal bleed from mucosal bleed. Also it was not that the ZAINAB drain has color similar to tube feeds. I discussed with Dr. Wellington he will evaluate the patient afternoon. If there is suspicions will get CT scan after contrast through the J -tube 12/18: More awake alert follows commands weakly. No obvious bleeding hemoglobin 7.3. Will transfuse 1 unit PRBC. 12/19: Gastrointestinal bleeding appears to have stopped. Hemoglobin now stable. Tube feeds infusing. No more transfusions necessary. 12/20: Patient remains intubated sedated, hemoglobin is 6 will transfuse 1 unit PRBC. Hemodialysis scheduled for tomorrow. Appears weak pale. Very weakly follows commands on upper extremity. 12/21: We will try to extubate after dialysis today. Anticipate the tracheostomy at this point will be best for the patient but family would like to proceed with attempted extubation again. 12/22: Patient more alert this morning. Plan is to attempt to replace the jejunostomy tube which is plugged. Following that a new dialysis catheter will be placed. The triple-lumen central line will need to be next 24-48 hours. If remains alert we will try to extubate him today. 12/23: New lines in and functioning well. Afebrile today. More alert but failed swallow evaluation. Try again tomorrow, if unable will start enteral feeds if okay with surgical service. Objective Vital Signs / I&O: Vital Signs 12/22/17 15:45 12/22/17 16:00 12/22/17 16:03 Temperature 98.4 F Pulse Rate 106 H 106 H Respiratory Rate 18 40 H 34 H Blood Pressure 135/63 135/59 L Pulse Oximetry 100 100 100 12/22/17 16:33 12/22/17 17:00 12/22/17 17:03 Temperature Pulse Rate 115 H 114 H 115 H Respiratory Rate 18 18 17 Blood Pressure 129/59 L 132/62 Pulse Oximetry 100 100 100 12/22/17 17:33 12/22/17 18:00 12/22/17 18:03 Temperature Pulse Rate 112 H 107 H Respiratory Rate 19 18 Blood Pressure 131/67 141/74 H Pulse Oximetry 100 100 100 12/22/17 18:33 12/22/17 19:00 12/22/17 19:03 Temperature Pulse Rate 105 H 107 H 106 H Respiratory Rate 14 17 15 Blood Pressure 142/63 H 151/70 H Pulse Oximetry 100 100 100 12/22/17 19:33 12/22/17 20:00 12/22/17 20:03 Temperature 98.7 F Pulse Rate 109 H 107 H 109 H Respiratory Rate 15 13 14 Blood Pressure 137/67 137/67 136/74 Pulse Oximetry 100 100 100 12/22/17 20:33 12/22/17 21:00 12/22/17 21:03 Temperature Pulse Rate 110 H 107 H 108 H Respiratory Rate 18 12 13 Blood Pressure 135/73 137/74 Pulse Oximetry 100 100 100 12/22/17 21:33 12/22/17 22:00 12/22/17 22:03 Temperature Pulse Rate 113 H 118 H 114 H Respiratory Rate 17 20 20 Blood Pressure 129/64 128/64 Pulse Oximetry 100 100 100 12/22/17 22:16 12/22/17 22:27 12/22/17 22:33 Temperature Pulse Rate 112 H Respiratory Rate 16 19 Blood Pressure 130/69 Pulse Oximetry 97 100 12/22/17 23:00 12/22/17 23:03 12/22/17 23:33 Temperature Pulse Rate 109 H 118 H 113 H Respiratory Rate 19 22 23 Blood Pressure 162/77 H 149/65 H Pulse Oximetry 100 100 12/23/17 00:00 12/23/17 00:03 12/23/17 00:33 Temperature 99.1 F Pulse Rate 111 H 109 H 111 H Respiratory Rate 15 14 13 Blood Pressure 145/68 H 145/68 H 148/72 H Pulse Oximetry 100 100 100 12/23/17 01:00 12/23/17 01:03 12/23/17 01:33 Temperature Pulse Rate 108 H 113 H 119 H Respiratory Rate 12 16 23 Blood Pressure 144/73 H 148/66 H Pulse Oximetry 100 100 100 12/23/17 02:00 12/23/17 02:03 12/23/17 02:33 Temperature Pulse Rate 118 H 119 H 120 H Respiratory Rate 21 24 23 Blood Pressure 133/63 132/68 Pulse Oximetry 95 12/23/17 03:00 12/23/17 03:03 12/23/17 03:33 Temperature Pulse Rate 120 H 117 H 124 H Respiratory Rate 21 24 25 H Blood Pressure 144/73 H 139/69 Pulse Oximetry 96 97 97 12/23/17 04:00 12/23/17 04:03 12/23/17 04:33 Temperature Pulse Rate 122 H 120 H 104 H Respiratory Rate 21 21 21 Blood Pressure 136/64 136/64 132/67 Pulse Oximetry 98 96 97 12/23/17 05:00 12/23/17 05:03 12/23/17 05:33 Temperature Pulse Rate 104 H 103 H 105 H Respiratory Rate 23 23 27 H Blood Pressure 125/64 120/60 Pulse Oximetry 97 97 98 12/23/17 06:00 12/23/17 06:03 12/23/17 06:32 Temperature Pulse Rate 108 H Respiratory Rate 19 Blood Pressure 115/57 L 115/57 L Pulse Oximetry 97 97 95 12/23/17 06:33 12/23/17 07:00 12/23/17 07:03 Temperature Pulse Rate Respiratory Rate Blood Pressure 118/58 L 119/56 L Pulse Oximetry 82 L 82 L 12/23/17 07:33 12/23/17 08:00 12/23/17 08:03 Temperature 98 F Pulse Rate 105 H 104 H 104 H Respiratory Rate 25 H 23 16 Blood Pressure 117/58 L 117/56 L Pulse Oximetry 98 97 12/23/17 08:33 12/23/17 09:00 12/23/17 09:03 Temperature Pulse Rate 102 H 104 H 102 H Respiratory Rate 22 15 14 Blood Pressure 130/61 129/59 L Pulse Oximetry 98 95 96 12/23/17 09:23 12/23/17 09:33 12/23/17 10:00 Temperature Pulse Rate 103 H 103 H Respiratory Rate 35 H 22 Blood Pressure 121/55 L Pulse Oximetry 96 97 97 12/23/17 10:03 12/23/17 10:33 12/23/17 11:00 Temperature Pulse Rate 104 H 103 H 104 H Respiratory Rate 22 20 25 H Blood Pressure 107/51 L 109/55 L Pulse Oximetry 97 98 98 12/23/17 11:03 12/23/17 11:33 12/23/17 12:00 Temperature 98 F Pulse Rate 103 H 99 H 99 H Respiratory Rate 25 H 19 26 H Blood Pressure 104/56 L 109/64 Pulse Oximetry 97 98 98 12/23/17 12:03 12/23/17 12:33 12/23/17 13:00 Temperature Pulse Rate 97 H 88 89 Respiratory Rate 19 13 15 Blood Pressure 121/56 L 131/62 Pulse Oximetry 97 97 98 12/23/17 13:03 12/23/17 13:18 12/23/17 13:33 Temperature Pulse Rate 95 H 96 H 94 H Respiratory Rate 16 15 18 Blood Pressure 121/58 L 117/61 121/61 Pulse Oximetry 98 98 98 12/23/17 13:48 12/23/17 14:00 12/23/17 14:03 Temperature Pulse Rate 94 H 86 94 H Respiratory Rate 21 17 15 Blood Pressure 123/63 135/67 Pulse Oximetry 98 98 98 Intake & Output 12/22/17 12/23/17 12/23/17 18:59 06:59 18:59 Intake Total 700 / 700 1070 / 1070 150 / 150 Output Total 1775 / 1775 525 / 525 900 / 900 Balance -1075 / -1075 545 / 545 -750 / -750 Weight 69.5 kg Intake: IV 520 / 520 650 / 650 150 / 150 Protonix Inj 80 MG In NS Inj 100 / 100 100 / 100 100 / 100 100 ML @ 10 mls/hr IV.CONT Q10H COLE Rx#:[id number] Diprivan 1000 mg/100 ml Inj 1, 170 / 170 000 mg In 100 ml @ 5 MCG/KG/MIN 2.859 mls/hr IV.CONT TITRATE PRN Rx#:[id number] Mycamine Inj 100 MG In NS Inj 100 / 100 100 ML @ 100 mls/hr IV.SIG Q24H COLE Rx#:[id number] Zosyn 2.25 GM Premix 50 ML @ 50 / 50 50 / 50 50 / 50 100 mls/hr IV.SIG Q8H COLE Rx#: [id number] KCl 20 mEq Premix Inj 20 meq In 100 / 100 100 ml @ 50 mls/hr IV.SIG ONCE ONE Rx#:[id number] Vancomycin Inj 1,000 MG In NS 250 / 250 Inj 250 ML @ 250 mls/hr IV.SIG ONCE ONE Rx#:[id number] fentaNYL 10 mcg/mL Premix Drip 250 / 250 2,500 mcg In 250 ml @ 50 MCG/HR 5 mls/hr IV.SIG TITRATE PRN Rx #:[id number] Oral 240 / 240 Tube Feeding 60 / 60 Tube Irrigant 180 / 180 Water Bolus Amount 120 / 120 Output: Stool 1500 / 1500 300 / 300 Hemodialysis Amount 900 / 900 Wound Drainage 275 / 275 225 / 225 # 2 Right Abdomen 275 / 275 225 / 225 Other: Date of Last Bowel Movement 12/22/17 12/22/17 12/22/17 # Incontinent Bowel Movements 2 Result Diagrams: 12/23/17 04:25 12/23/17 04:25 Objective Remarks: GEN: Chronically ill-appearing, on vent, awake and interactive. HEENT: Orotracheal intubation pupils 3 mm and reactive bilaterally. NECK: RIJ vasc-cath removed and LIJ TLC present, clean/ dry/ intact CARDIO: NSR, normal S1, S2, regular rhythm, neck veins remain full PULM: On PRVC mode ventilation. Few rhonchi persist, decreased breath sounds both bases. GI: Dressings dry and clean. Abdomen soft. Bowel sounds present. No guarding SKIN: No rashes or lesions, dry NEURO: Following commands today. Moves 4 limbs spontaneously but only weakly. Assessment and Plan - Problem List (1) Gastric perforation Code(s): K25.5 - Chronic or unspecified gastric ulcer with perforation Status : Resolved (2) Status post total gastrectomy and Dinh-en-Y esophagojejunal anastomosis Code(s): Z90.3 - Acquired absence of stomach [part of]; Z98.0 - Intestinal bypass and anastomosis status Status: Acute (3) Ischemic hepatitis Code(s): K75.9 - Inflammatory liver disease, unspecified Status: Acute (4) Gastric necrosis Code(s): K31.89 - Other diseases of stomach and duodenum Status: Resolved (5) Thrombocytopenia Code(s): D69.6 - Thrombocytopenia, unspecified Status: Acute (6) Acute bilateral deep vein thrombosis (DVT) of upper extremities Code(s): I82.623 - Acute embolism and thrombosis of deep veins of upper extremity, bilateral Status: Acute (7) Anemia Code(s): D64.9 - Anemia, unspecified Status: Acute (8) Leukocytosis Code(s): D72.829 - Elevated white blood cell count, unspecified Status: Acute (9) Candidemia Code(s): B37.7 - Candidal sepsis Status: Acute (10) On total parenteral nutrition (TPN) Code(s): Z78.9 - Other specified health status Status: Acute (11) Hx of cardiac arrest Code(s): Z86.74 - Personal history of sudden cardiac arrest Status: Resolved (12) Acute hemodialysis patient Code(s): Z99.2 - Dependence on renal dialysis Status: Acute (13) JACLYN (acute kidney injury) Code(s): N17.9 - Acute kidney failure, unspecified Status: Acute (14) Aspiration pneumonia Code(s): J69.0 - Pneumonitis due to inhalation of food and vomit Status: Acute (15) Acute respiratory failure Code(s): J96.00 - Acute respiratory failure, unspecified whether with hypoxia or hypercapnia Status: Acute - Assessment and Plan Plan: NEURO: Metabolic encephalopathy On Fentanyl/propofol drips for sedation, pain control. Improving neuro exam, continue daily sedation vacation Following commands x4 Resolving encephalopathy 12/22 RESP: Acute respiratory failure Left pleural effusion PRVC, Ventilator Bundle Spontaneous breathing trials as tolerated-failed today, will not be able to extubate due to generalized weakness Scheduled and as needed breathing treatments Left pigtail chest tube removed 12/18 Spontaneous breathing trials today, try to extubate. Extubated 12/22 CV: Cardiac arrest 11/23/17 (PEA arrest due to shock secondary to acute gastric perf and tension pneumoperitoneum) Septic shock, resolved Now off pressors. Hemodynamic monitoring Use as needed medication for hypertension Continued fluid removal with hemodialysis GI: s/p anterior gastric perforation with tension pneumoperitoneum status post ex lap with primary repair with stapler 11/23 On second look 11/25 he was found to have gastric necrosis requiring subtotal gastrectomy and placement of AB Thera VAC dressing. The bowel was in discontinuity and he was transferred to [facility]. On 11/28 reexploration with Dinh-en-y esophagojejunostomy, feeding jejunostomy placement, diagnostic EGD, primary fascial closure. Gastric necrosis , Ischemic hepatopathy GIB with blood loss anemia NGT to LIWS, leave above esophageal anastomosis to avoid irritation Bleeding appears to be small bowel mucosal bleeding at this point discussed with Dr. Wellington Has feeding jejunostomy and advance tube feeds with Nepro at 50 ml per hour EGD, enteroscopy 12/12/2017 unremarkable, colonoscopy 12/13/2017 unremarkable. Bleeding scan did not show any particular site of bleeding ZAINAB drains in place #1 anterior to anastomosis, now removed, #2 posterior to the anastomosis. Management per general surgery. Had right upper quadrant ultrasound on 11/27/17 that demonstrated contracted gallbladder with sludge. No evidence of cholecystitis. Echogenicity in right liver related to focal fatty change or altered perfusion, patent vascularity. Protonix GTT for GI bleed. Minor decline in hemoglobin concentration FEN/RENAL: JACLYN secondary to ischemic ATN HD as started 11/26 at [place]. Has R IJ Vascath. Monitor I/O and electrolytes. Nephrology following Continue scheduled dialysis ID: Gastric perforation with large amount particulate peritoneal contamination 11/23 Acute Aspiration pneumonia Candidemia (C [place] 11/26 at culture) Continue Zosyn/micafungin. ID following Dr. Millan Patient evaluated by ophthalmology prior to transfer. Do not see an ophthalmology note in the transfer documentation, requested document. Requested culture data from [facility]. Follow-up cultures here Sputum culture 11/24 with pansensitive Klebsiella pneumonia HEME: Anemia requiring transfusion Thrombocytopenia-resolved Bilateral upper extremity DVTs Transfuse 3 units PRBC 12/13, transfuse 1 unit PRBC 12/14/2017, 2U 12/15. GI workup as above. 2U PRBC 12/18/17 1U PRBC today for hemoglobin of 6, additional transfusion tomorrow with hemodialysis, there is no evidence of hemolysis U/s 11/26 BUE - thrombus R axillary, brachial and basilic veins and thrombus in left axillary and left brachial veins. U/s bilateral lower extremities 11/26 at [facility] negative from common femoral to popliteal vein levels. Arrived on heparin drip, due to GI bleed and anemia all anticoagulation is being held Hematology consult was obtained at [facility] and recommended heparin drip and transfuse prn for platelets <50k. ENDO: Monitor Glucose q4 hours and use low dose insulin sliding scale as indicated. PROPH: s/q heparin held due to blood loss anemia, GIB. Protonix for stress ulcer prophylaxis. DVT prophylaxis. ACCESS: R IJ vascath removed 12/20, L IJ CVL. All existing lines were replaced at [facility]. Left IJ line accidentally was dislodged 12/23/2017, new left IJ line placed 12/13/2017 FULL CODE Overall impression: Finally extubated and protecting airway adequately. He did however fail his swallowing evaluation and will have to reconsider nutritional support. Remains afebrile following all lines being changed. (6) Acute bilateral deep vein thrombosis (DVT) of upper extremities Qualifiers: Affected thrombotic vein of extremity: brachial Qualified Code(s): I82.623 - Acute embolism and thrombosis of deep veins of upper extremity, bilateral (15) Acute respiratory failure Qualifiers: Respiratory failure complication: hypoxia Qualified Code(s): J96.01 - Acute respiratory failure with hypoxia
[2017-12-23] MEDS: hydrALAZINE 50 MG Tablet PO SCH (17:50)
[2017-12-23] MEDS: Calcium Acetate 667 MG Capsule PO SCH ×2 (17:50→17:51)
[2017-12-24] MEDS: fentaNYL 10 mcg/mL Premix Drip 2,500 MCG/250 ML BAG IV.SIG PRN (00:17)
[2017-12-24 05:22] LABS: Red Blood Count 2.57 mil/mm3 (4.50-5.90)
[2017-12-24 05:23] LABS: Baso # (Auto) 0.1 th/mm3 (0.0-0.2); Baso % (Auto) 0.6 % (0.0-2.0); Eos # (Auto) 1.1 th/mm3 (0.0-0.4); Eos % (Auto) 6.2 % (0.0-4.0); Hematocrit 22.7 % (39.0-51.0); Hemoglobin 7.5 gm/dL (13.0-17.0); Lymph # (Auto) 1.2 th/mm3 (1.0-4.8); Lymph % (Auto) 6.5 % (9.0-44.0); Mean Corpuscular HGB Conc 33.1 % (32.0-36.0); Mean Corpuscular Hemoglobin 29.3 pg (27.0-34.0); Mean Corpuscular Volume 88.5 fL (80.0-100.0); Mean Platelet Volume 8.3 fL (7.0-11.0); Mono # (Auto) 1.9 th/mm3 (0.0-0.9); Mono % (Auto) 10.6 % (0.0-8.0); Neut # (Auto) 13.7 th/mm3 (1.8-7.7); Neut % (Auto) 76.1 % (16.0-70.0); Platelet Count 403 th/mm3 (150-450)
[2017-12-24] MEDS: Pantoprazole Inj 80 MG in Sodium Chlor 0.9% Inj 100 ML IV.CONT SCH ×2 (05:43→15:15)
[2017-12-24 05:56] LABS: Albumin 1.7 g/dL (3.4-5.0); Calcium 7.2 mg/dL (8.5-10.1); Carbon Dioxide 24.4 meq/L (21.0-32.0); Phosphorus 6.9 mg/dL (2.5-4.9); Potassium 3.5 meq/L (3.5-5.1)
[2017-12-24 06:17] LABS: Calcium-Albumin Corrected 8.1 mg/dL (8.5-10.1); Total Protein 5.4 g/dL (6.4-8.2)
--- NOTE | 2017-12-24 09:08 | P.PNGS ---
Subjective Interval history: Resting in bed SVETLANA Hunt at bedside Talking; pain controlled Physical Exam Vital signs: Vital Signs 12/23/17 09:23 12/23/17 09:33 12/23/17 10:00 Temperature Pulse Rate 103 H 103 H Respiratory Rate 35 H 22 Blood Pressure 121/55 L Pulse Oximetry 96 97 97 12/23/17 10:03 12/23/17 10:33 12/23/17 11:00 Temperature Pulse Rate 104 H 103 H 104 H Respiratory Rate 22 20 25 H Blood Pressure 107/51 L 109/55 L Pulse Oximetry 97 98 98 12/23/17 11:03 12/23/17 11:33 12/23/17 12:00 Temperature 98 F Pulse Rate 103 H 99 H 99 H Respiratory Rate 25 H 19 26 H Blood Pressure 104/56 L 109/64 Pulse Oximetry 97 98 98 12/23/17 12:03 12/23/17 12:33 12/23/17 13:00 Temperature Pulse Rate 97 H 88 89 Respiratory Rate 19 13 15 Blood Pressure 121/56 L 131/62 Pulse Oximetry 97 97 98 12/23/17 13:03 12/23/17 13:18 12/23/17 13:33 Temperature Pulse Rate 95 H 96 H 94 H Respiratory Rate 16 15 18 Blood Pressure 121/58 L 117/61 121/61 Pulse Oximetry 98 98 98 12/23/17 13:48 12/23/17 14:00 12/23/17 14:03 Temperature Pulse Rate 94 H 86 94 H Respiratory Rate 21 17 15 Blood Pressure 123/63 135/67 Pulse Oximetry 98 98 98 12/23/17 14:18 12/23/17 14:23 12/23/17 14:33 Temperature Pulse Rate 139 H 102 H 89 Respiratory Rate 23 18 26 H Blood Pressure 122/66 121/64 124/65 Pulse Oximetry 98 98 100 12/23/17 14:48 12/23/17 15:00 12/23/17 15:03 Temperature Pulse Rate 158 H 154 H 85 Respiratory Rate 14 11 L 13 Blood Pressure 115/58 L 118/56 L Pulse Oximetry 100 100 100 12/23/17 15:18 12/23/17 15:33 12/23/17 15:48 Temperature Pulse Rate 151 H 93 H 100 H Respiratory Rate 20 11 L 17 Blood Pressure 128/58 L 135/62 125/58 L Pulse Oximetry 100 100 100 11/18/18 16:00 12/23/17 16:03 12/23/17 16:18 Temperature Pulse Rate 111 H 108 H 146 H Respiratory Rate 19 17 12 Blood Pressure 138/65 124/57 L Pulse Oximetry 100 100 100 12/23/17 16:33 12/23/17 16:48 12/23/17 17:00 Temperature Pulse Rate 96 H 98 H 96 H Respiratory Rate 15 15 10 L Blood Pressure 134/61 132/62 Pulse Oximetry 100 100 100 12/23/17 17:03 12/23/17 17:18 12/23/17 17:33 Temperature Pulse Rate 92 H 103 H 95 H Respiratory Rate 10 L 16 11 L Blood Pressure 136/64 139/62 127/63 Pulse Oximetry 100 100 100 12/23/17 17:48 12/23/17 18:00 12/23/17 18:03 Temperature Pulse Rate 100 H 116 H 97 H Respiratory Rate 10 L 11 L 15 Blood Pressure 135/61 137/58 L Pulse Oximetry 100 100 100 12/23/17 18:18 12/23/17 18:33 12/23/17 19:00 Temperature 99 F 98.1 F Pulse Rate 146 H 146 H 106 H Respiratory Rate 12 14 12 Blood Pressure 127/59 L 110/55 L 90/52 L Pulse Oximetry 100 100 100 12/23/17 20:03 12/23/17 21:00 12/23/17 22:00 Temperature Pulse Rate 91 H 95 H 92 H Respiratory Rate 13 19 15 Blood Pressure 104/53 L 116/59 L 142/62 H Pulse Oximetry 100 99 12/23/17 23:00 12/24/17 00:00 12/24/17 01:00 Temperature 98.2 F Pulse Rate 93 H 95 H 92 H Respiratory Rate 16 28 H 13 Blood Pressure 120/57 L 140/63 154/70 H Pulse Oximetry 100 100 100 12/24/17 02:00 12/24/17 03:00 12/24/17 04:00 Temperature 97.8 F Pulse Rate 99 H 98 H 91 H Respiratory Rate 14 22 26 H Blood Pressure 158/71 H 143/65 H 139/61 Pulse Oximetry 100 100 100 12/24/17 05:00 12/24/17 05:06 12/24/17 05:44 Temperature Pulse Rate 97 H Respiratory Rate 26 H 14 Blood Pressure 122/58 L Pulse Oximetry 100 12/24/17 06:00 12/24/17 06:05 Temperature Pulse Rate 92 H 91 H Respiratory Rate 12 13 Blood Pressure 122/58 L 138/65 Pulse Oximetry 100 100 Intake & Output 12/23/17 12/24/17 12/24/17 18:59 06:59 18:59 Intake Total 350 / 350 550 / 550 Output Total 920 / 920 620 / 620 Balance -570 / -570 -70 / -70 Weight 65.2 kg Intake: IV 350 / 350 550 / 550 Protonix Inj 80 MG In NS Inj 100 / 100 200 / 200 100 ML @ 10 mls/hr IV.CONT Q10H COLE Rx#:[id number] Merrem Inj 500 MG In NS Inj 100 100 / 100 100 / 100 ML @ 200 mls/hr IV.SIG Q8H COLE Rx#:[id number] Mycamine Inj 100 MG In NS Inj 100 / 100 100 ML @ 100 mls/hr IV.SIG Q24H COLE Rx#:[id number] Zosyn 2.25 GM Premix 50 ML @ 50 / 50 100 mls/hr IV.SIG Q8H COLE Rx#: [id number] fentaNYL 10 mcg/mL Premix Drip 250 / 250 2,500 mcg In 250 ml @ 50 MCG/HR 5 mls/hr IV.SIG TITRATE PRN Rx #:[id number] Oral 0 / 0 Output: Urine 200 / 200 Stool 200 / 200 Hemodialysis Amount 900 / 900 Wound Drainage 20 / 20 220 / 220 # 2 Right Abdomen 20 / 20 220 / 220 Other: # Incontinent Voids 2 Date of Last Bowel Movement 12/22/17 12/24/17 Narrative: Alert and awake Abd: flat; soft; midline incision healing with granulated tissue; ZAINAB with serous drainage; J tube clogged BUE edema improved - Urinary Catheter Management Indwelling Temp Sensing Catheter Cath placed during this visit: no Results - Labs 12/24/17 12:20 12/24/17 05:10 Laboratory Results - last 24 hr 12/23/17 12/23/17 12/24/17 11:00 13:04 05:10 WBC 18.0 H RBC 2.57 L Hgb 7.5 L Hct 22.7 L MCV 88.5 MCH 29.3 MCHC 33.1 RDW 17.0 Plt Count 403 D MPV 8.3 Prelim Diff (Auto) Slide review pending Neut % (Auto) 76.1 H Lymph % (Auto) 6.5 L [place] % (Auto) 10.6 H Eos % (Auto) 6.2 H Baso % (Auto) 0.6 Neut # (Auto) 13.7 H Lymph # (Auto) 1.2 [place] # (Auto) 1.9 H Eos # (Auto) 1.1 H Baso # (Auto) 0.1 Differential Comment . Sodium Potassium Chloride Carbon Dioxide Anion Gap BUN Creatinine Estimated GFR Random Glucose Calcium Prot Corrected Calcium Phosphorus Total Protein Albumin Blood Type A Positive Antibody Screen Positive H Antibody Identification Anti-Alisa Direct Antiglob Test Weakly positive H MTS Gel Crossmatch See Detail Bld Prod Order Comment 12/24/17 05:10 WBC RBC Hgb Hct MCV MCH MCHC RDW Plt Count MPV Prelim Diff (Auto) Neut % (Auto) Lymph % (Auto) [place] % (Auto) Eos % (Auto) Baso % (Auto) Neut # (Auto) Lymph # (Auto) [place] # (Auto) Eos # (Auto) Baso # (Auto) Differential Comment Sodium 145 Potassium 3.5 Chloride 105 Carbon Dioxide 24.4 Anion Gap 16 H BUN 59 H Creatinine 6.01 H Estimated GFR 12 L Random Glucose 73 L Calcium 7.2 L* D Prot Corrected Calcium 8.1 L Phosphorus 6.9 H D Total Protein 5.4 L Albumin 1.7 L Blood Type Antibody Screen Antibody Identification Direct Antiglob Test MTS Gel Crossmatch Bld Prod Order Comment - Imaging Imaging: ITS Impressions Head MRI 12/03/17 00:00 CONCLUSION: 1. Minimal nonspecific periventricular white matter changes. 2. No restricted diffusion to suggest an acute ischemic event. 3. No evidence for significant ischemic changes. Chest CT 12/04/17 00:06 CONCLUSION: 1. Left greater than right pleural effusions and basilar atelectasis. 2. No hemorrhage or hematoma demonstrated. 3. Distended and fluid-filled esophagus. No wall thickening. Patient is status post gastrectomy. Nasogastric tube is at the GE junction. 4. Body wall edema/anasarca. Abdomen X-Ray 12/08/17 00:00 CONCLUSION: 1. 2 left-sided abdominal catheters. 2. Nonspecific bowel gas pattern. Abdomen/Pelvis CT 12/13/17 00:00 CONCLUSION: 1. New proximal small bowel dilatation. No discrete transition point. Contrast is seen in the distal small bowel. Findings may represent ileus or partial obstruction. 2. Postsurgical findings with surgical drains in the left upper quadrant. Free fluid is seen in the left upper quadrant. Loculated rounded 5 cm area of fluid with thin peripheral enhancement also noted just inferior to the surgical drains. 3. Prominent left lower lobe pulmonary consolidation and small left pleural effusion. GI Bleed Scan Nuclear Medicine 12/15/17 00:00 CONCLUSION: No active bleeding demonstrated. Chest X-Ray 12/22/17 00:00 CONCLUSION: 1. Persistent patchy infiltrate within the left lung base. 2. Multiple tubes and lines are stable. The nasogastric tube remains with its tip in the distal esophagus. New right subclavian central line has its tip in superior vena cava. No pneumothorax is noted. Small Bowel X-Ray 12/22/17 00:00 CONCLUSION: No evidence of bowel obstruction. There is mild diffuse small bowel wall thickening identified within the jejunum and ileum consistent with possible edema given the appearance on initial imaging. Drain overlying the left lower quadrant. Assessment and Plan - Assessment (1) Gastric perforation Code(s): K25.5 - Chronic or unspecified gastric ulcer with perforation Status : Resolved Plan: 47yo male s/p Exlap and gastrectomy for gastric perforation, s/p esophagojejunostomy at [facility] -Extubated; stable on RA -Failed swallow eval over the weekend; trying again today; will need to eat small more frequent meals when he passes -Replace/de-clog J tube in IR -HD per Nephrology -Discussed with Dr. Jensen - Attending Attestation I certify and attest that I personally examined the patient in their room. The RESEARCH GROUP DIRECTOR documented our visit and entered orders in the EMR under my direct supervision. MAT NÚÑEZ MD FACS
[2017-12-24 09:12] LABS: Eosinophils 8 % (0-4); Lymphocytes 5 % (9-44); Metamyelocytes 2 % (0-1); Monocytes 7 % (0-8); Myelocytes 1 % (0-0)
[2017-12-24 09:13] LABS: Platelet Estimate Normal (Normal); Platelet Morphology Normal (Normal)
[2017-12-24] MEDS: Calcium Acetate 667 MG Capsule PO SCH ×3 (09:37→17:52)
[2017-12-24] MEDS: hydrALAZINE 50 MG Tablet PO SCH ×3 (09:38→17:52)
--- NOTE | 2017-12-24 10:33 | P.PNNP ---
Subjective Interval history: patient has been extubated. He speaks a few words, but does appear confused and disoriented. Apparently he had about 200 ml of urine yesterday. Physical Exam Vital signs: Vital Signs 12/23/17 10:33 12/23/17 11:00 12/23/17 11:03 Temperature 98 F Pulse Rate 103 H 104 H 103 H Respiratory Rate 20 25 H 25 H Blood Pressure 109/55 L 104/56 L Pulse Oximetry 98 98 97 12/23/17 11:33 12/23/17 12:00 12/23/17 12:03 Temperature Pulse Rate 99 H 99 H 97 H Respiratory Rate 19 26 H 19 Blood Pressure 109/64 121/56 L Pulse Oximetry 98 98 97 12/23/17 12:33 12/23/17 13:00 12/23/17 13:03 Temperature Pulse Rate 88 89 95 H Respiratory Rate 13 15 16 Blood Pressure 131/62 121/58 L Pulse Oximetry 97 98 98 12/23/17 13:18 12/23/17 13:33 12/23/17 13:48 Temperature Pulse Rate 96 H 94 H 94 H Respiratory Rate 15 18 21 Blood Pressure 117/61 121/61 123/63 Pulse Oximetry 98 98 98 12/23/17 14:00 12/23/17 14:03 12/23/17 14:18 Temperature Pulse Rate 86 94 H 139 H Respiratory Rate 17 15 23 Blood Pressure 135/67 122/66 Pulse Oximetry 98 98 98 12/23/17 14:23 12/23/17 14:33 12/23/17 14:48 Temperature Pulse Rate 102 H 89 158 H Respiratory Rate 18 26 H 14 Blood Pressure 121/64 124/65 115/58 L Pulse Oximetry 98 100 100 12/23/17 15:00 12/23/17 15:03 12/23/17 15:18 Temperature Pulse Rate 154 H 85 151 H Respiratory Rate 11 L 13 20 Blood Pressure 118/56 L 128/58 L Pulse Oximetry 100 100 100 12/23/17 15:33 12/23/17 15:48 12/23/17 16:00 Temperature Pulse Rate 93 H 100 H 111 H Respiratory Rate 11 L 17 19 Blood Pressure 135/62 125/58 L Pulse Oximetry 100 100 100 12/23/17 16:03 12/23/17 16:18 12/23/17 16:33 Temperature Pulse Rate 108 H 146 H 96 H Respiratory Rate 17 12 15 Blood Pressure 138/65 124/57 L 134/61 Pulse Oximetry 100 100 100 12/23/17 16:48 12/23/17 17:00 12/23/17 17:03 Temperature Pulse Rate 98 H 96 H 92 H Respiratory Rate 15 10 L 10 L Blood Pressure 132/62 136/64 Pulse Oximetry 100 100 100 12/23/17 17:18 12/23/17 17:33 12/23/17 17:48 Temperature Pulse Rate 103 H 95 H 100 H Respiratory Rate 16 11 L 10 L Blood Pressure 139/62 127/63 135/61 Pulse Oximetry 100 100 100 12/23/17 18:00 12/23/17 18:03 12/23/17 18:18 Temperature 99 F Pulse Rate 116 H 97 H 146 H Respiratory Rate 11 L 15 12 Blood Pressure 137/58 L 127/59 L Pulse Oximetry 100 100 100 12/23/17 18:33 12/23/17 19:00 12/23/17 20:03 Temperature 98.1 F Pulse Rate 146 H 106 H 91 H Respiratory Rate 14 12 13 Blood Pressure 110/55 L 90/52 L 104/53 L Pulse Oximetry 100 100 100 12/23/17 21:00 12/23/17 22:00 12/23/17 23:00 Temperature Pulse Rate 95 H 92 H 93 H Respiratory Rate 19 15 16 Blood Pressure 116/59 L 142/62 H 120/57 L Pulse Oximetry 99 100 12/24/17 00:00 12/24/17 01:00 12/24/17 02:00 Temperature 98.2 F Pulse Rate 95 H 92 H 99 H Respiratory Rate 28 H 13 14 Blood Pressure 140/63 154/70 H 158/71 H Pulse Oximetry 100 100 100 12/24/17 03:00 12/24/17 04:00 12/24/17 05:00 Temperature 97.8 F Pulse Rate 98 H 91 H 97 H Respiratory Rate 22 26 H 26 H Blood Pressure 143/65 H 139/61 Pulse Oximetry 100 100 100 12/24/17 05:06 12/24/17 05:44 12/24/17 06:00 Temperature Pulse Rate 92 H Respiratory Rate 14 12 Blood Pressure 122/58 L 122/58 L Pulse Oximetry 100 12/24/17 06:05 Temperature Pulse Rate 91 H Respiratory Rate 13 Blood Pressure 138/65 Pulse Oximetry 100 Intake & Output 12/23/17 12/24/17 12/24/17 18:59 06:59 18:59 Intake Total 350 / 350 550 / 550 Output Total 920 / 920 620 / 620 Balance -570 / -570 -70 / -70 Weight 65.2 kg Intake: IV 350 / 350 550 / 550 Protonix Inj 80 MG In NS Inj 100 / 100 200 / 200 100 ML @ 10 mls/hr IV.CONT Q10H COLE Rx#:[id number] Merrem Inj 500 MG In NS Inj 100 100 / 100 100 / 100 ML @ 200 mls/hr IV.SIG Q8H COLE Rx#:[id number] Mycamine Inj 100 MG In NS Inj 100 / 100 100 ML @ 100 mls/hr IV.SIG Q24H COLE Rx#:[id number] Zosyn 2.25 GM Premix 50 ML @ 50 / 50 100 mls/hr IV.SIG Q8H COLE Rx#: [id number] fentaNYL 10 mcg/mL Premix Drip 250 / 250 2,500 mcg In 250 ml @ 50 MCG/HR 5 mls/hr IV.SIG TITRATE PRN Rx #:[id number] Oral 0 / 0 Output: Urine 200 / 200 Stool 200 / 200 Hemodialysis Amount 900 / 900 Wound Drainage 20 / 20 220 / 220 # 2 Right Abdomen 20 / 20 220 / 220 Other: # Incontinent Voids 2 Date of Last Bowel Movement 12/22/17 12/24/17 - Constitutional no acute distress Comments: malnourished. - Routine HEENT Exam Head: Present: normocephalic Eye: Present: EOMI, PERRL - Routine Neck Exam Present: supple. Absent: JVD - Routine Respiratory Exam Present: CTA bilaterally. Absent: accessory muscle use - Routine Cardiovascular Exam Present: RRR, S1, S2 - Routine Abdominal Exam Present: soft - Routine Extremities Exam Absent: edema - Urinary Catheter Management Indwelling Temp Sensing Catheter Cath placed during this visit: no Assessment and Plan - Assessment (1) JACLYN (acute kidney injury) Code(s): N17.9 - Acute kidney failure, unspecified Status: Acute Plan: Oliguric renal failure, continue dialysis support. Vas cath placement per CC on 09/22 Avoid nephrotoxic agents. Continue PhosLo Monitor for renal recovery, monitor urine output. (2) Acute respiratory failure Code(s): J96.00 - Acute respiratory failure, unspecified whether with hypoxia or hypercapnia Status: Acute Qualifiers: Respiratory failure complication: hypoxia Qualified Code(s): J96.01 - Acute respiratory failure with hypoxia Plan: Resolved, Extubated, on room air (3) Gastric perforation Code(s): K25.5 - Chronic or unspecified gastric ulcer with perforation Status : Resolved Plan: s/p surgery. Subtotal gastrectomy in [place]. In [facility] he had: Dinh-en-y esophagojejunostomy, feeding jejunostomy placement, diagnostic EGD, primary fascial closure. Date of procedure: 11/28/17 Negative bleeding scan - follow with GI, surgery. No immediate surgical plans at this point (4) Candidemia Code(s): B37.7 - Candidal sepsis Status: Acute Plan: On Micafungin. Dose medications appropriate to renal function. (5) DVT (deep venous thrombosis) Code(s): I82.409 - Acute embolism and thrombosis of unspecified deep veins of unspecified lower extremity Status: Acute Plan: DVT of bilateral upper extremities. (6) Anemia Code(s): D64.9 - Anemia, unspecified Status: Acute Plan: HGB dropped to 7.6 Could be multifactorial. Plan to transfuse 1 unit of PRBC today
--- NOTE | 2017-12-24 11:48 | P.PNCC ---
Subjective Subjective Remarks/Hospital Course: Patient was recently admitted to [facility] 11/22 and transferred to [facility] 11/26/17 after the following hospital course: 47-year-old -[place] male with reportedly no past medical or past surgical history who was admitted to hospitalist service 11/22/17 after presenting with abdominal pain, nausea, vomiting. He had CT abd/pelvis with massive gastric distention. NG tube had been placed. I was called to patient's bedside for CODE BLUE PEA arrest. CPR was ongoing and patient had massive abdominal distension and gastric regurgitant in the airway. He was emergently intubated and large amount of gastric secretions suctioned from oropharynx. After 21 minutes of CPR, ROSC was obtained and he was profoundly hypotensive. Continued aggressive fluid resuscitation and initiated dopamine. He was transferred to [facility] where CVL and R radial art line were placed and he was given 7 L of crystalloid and albumin. CXR demonstrated pneumoperitoneum and Dr. Martin Gudino was called emergently and he immediately contacted OR for emergent ex lap. He had intraabdominal hypertension with IAP of 40 mmHg, though fortunately was able to be ventilated adequately after rocuronium 50 mg IV and was transferred to OR. Dr. Martin Gudino took to the operating room early in the morning on 11/23 and discovered tension pneumoperitoneum, massive gastric distension, ischemia of the proximal 2/3 of the stomach and large gastric perforation with massive intraperitoneal contamination with food particles. Dr. Isaacs placed 2 NGT and decompressed 2 L of succus. Patient had initial improvement in vital signs in the immediate postoperative period, however he subsequently became hypotensive requiring upward titration of levophed and addition of vasopressin and stress dose hydrocortisone. He remains on levophed 10 mcg/min, neosynephrine 80 mcg/ min, vasopressin 0.04 units/min with overall vasopressor requirement weaning overnight. He is oliguric and creatinine is continuing to climb. He was given 2 L of crystalloid and albumin overnight. He does have significant fluid losses with combination of abdominal dressing and NGT output, so I will give an additional L of crystalloid now to monitor hourly response as he certainly does not appear volume overloaded. Nonetheless Flotrac numbers are suggesting adequate volume status and we may be seeing the consequence of ischemic ATN. May ultimately require HD, however not at this time. Abdomen remains open and plan is to re-explore 11/25. 11/25: Patient has acceptable hemodynamics by Flotrac but remains septic with requirements for phenylephrine 200 mics per minute, Levophed 8 mics per minute and vasopressin 0.04 units/min for blood pressure support. This has improved overnight and the Bhavesh-Synephrine support has been weaned off completely. Acid base balance is acceptable. ATN has developed which will undoubtedly require hemodialysis. Potassium level is normal. He is at increased risk for an anesthetic now but there is an urgent need to check for residual gastric necrosis. 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 Since the source control surgery, the maintenance of normal acid-base balance has been less difficult. Patient remains anuric with a rising creatinine above 6.0. He is clearly ahead on volume and will benefit from dialysis. A 2 lumen hemodialysis catheter was placed on 11/25 and has been packed with dilute heparin solution. The right internal jugular central line is been in place for 4 days and accessed multiple times. The femoral art line has been in for 4 days. Shock liver was apparent after the cardiac arrest reflecting a transaminitis, elevated bilirubin, and prolonged INR. The INR has remained normal following the transfusion of 4 units of fresh frozen plasma prior to surgery yesterday. A 10% dextrose infusion continues because of ongoing problems with hypoglycemia. Thrombocytopenia at 37,000 persists. He has remained on antibiotic coverage with Pipracil/tazobactam and fungal coverage with fluconazole, all adjusted for renal failure. Present vasopressor requirements include levophed at 7 mics per minute and vasopressin at 0.04 units/min. The chest x-ray is consistent with minor aspiration at the time of his preoperative cardiac arrest on the floor and cultures have subsequently grown Klebsiella, pansensitive. The operative note will clarify the extent of the surgery but in essence the distal esophagus is stapled off and marked with 2 Prolene sutures. The antrum of the stomach is oversewn. Most of the stomach has been removed. The abdomen is open with a VAC dressing applied. Subjective: 11/29: Bowel was in discontinuity following subtotal gastrectomy and patient was transferred to [facility]. On reexploration 11/28 he underwent Dinh-en-y esophagojejunostomy, feeding jejunostomy placement, diagnostic EGD, primary fascial closure. Wound vac was applied to abdomen (though currently wet to dry dressing in place upon arrival). He was reportedly found to have candidemia and was started on micafungin and has undergone ophtho eval. Lines including CVL, Vascath and art line have all been changed at [facility] (though not clear when). He remains on mechanical ventilation and has been weaned off pressors. He was found to have BUE DVTs and is on heparin drip. He is on TPN and has been started on trickle tube feeds with Nepro via jejunostomy. NGT is to [facility]. He underwent HD postoperatively on 11/28. He has now been transferred back to [facility] for ongoing management. I have updated his father and stepmother. 11/30: Patient re-admitted s/p transfer from [facility] overnight, otherwise no acute issues. Scheduled to undergo HD today. 12/01: T-max 101.7, leukocytosis to 27,000 with bandemia. Now 3 days following Dinh-en-Y reconstruction of GI tract following sub-total gastrectomy for gastric necrosis. All new lines placed after diagnosis of candidemia. TPN infusing, jejunostomy at trickle flow and can be increased slowly per general surgery. 12/02: Marked leukocytosis with bandemia persists. Afebrile over last 24 hours. Leave NG tube across the esophageal anastomosis and surgical service will direct timing of contrast study about 7 days following surgery. Continue with spontaneous breathing trials. 12/03: extubated yesterday. since then, has not followed commands, and does not talk. appears to have clinically an aphasia, although his uremia or severe hypoactive delirium could present this way. purposeful movements. will obtain MRI to rule out acute ischemia, as this appears to be a new mental status change (11/29 /[facility] notes state interactive on ventilator). 12/04: reintubated overnight: more output from ZAINAB drains. hgb dropped to 7 this AM: receiving 1 unit prbc. MRI negative for acute change. EEG ordered today to rule out subclinical status epilepticus. also concern overnight for aspiration event. 12/05: T-max 99. WBC 24,000. Reintubated yesterday for respiratory failure probably related to aspiration. Trickle feeding continues through jejunostomy. Nasogastric tube is through the anastomosis and is to low intermittent. 12/06: Afebrile. WBC 26,000. Bandemia has largely resolved. There are bilateral pleural effusions which may need to be tapped to rule out infection or leak. Both lower lobes are consolidated on CAT scan, probably representing compressive atelectasis from the effusions. 12/07: White count remains elevated at 25,000. Total parenteral nutrition infusing and tolerated. Altered mental status persists, possibly related to the cardiac arrest on the floor prior to transfer to the ICU. 12/08: Tolerating total parenteral nutrition with good glucose control. Leukocytosis persists. Fluid tap from left chest bit cloudy, cultures pending. Maintaining adequate gas exchange on lower levels of fractional inspired oxygen. Aim for extubation trial again soon. 12/09: Patient considerably less edematous over the past several days following successful dialysis runs. Continually fails attempts at weaning parameters and desaturation. Left chest drainage is no growth by culture. White blood cell count remains elevated. 12/10: Remains intubated. WBC count elevated but stable. Left chest tube with 260 mL output in 24 hours. BUN/creatinine remains elevated 12/11: Remains intubated sedated hemoglobin dropped to 5.8 today. RN has noted lower GI bleed. Protonix IV every 12 started and GI consulted. Transfuse 2 units PRBC. Keep n.p.o. discussed with Dr. Wellington 12/12: Patient remains intubated sedated for vent synchrony. Hemoglobin stable 7.5. Endoscopy negative yesterday CT abdomen pelvis no active bleeding. Hemodynamically remained stable. Receiving hemodialysis at this time. Left chest tube with high output 450 mL in 24 hours. Attempt weaning trials starting today 12/13: Patient continues to lose blood. Hemoglobin 5.5. Plan to get colonoscopy today. Continues to have melanotic stools. The night RN aspirated blood from jejunostomy tube. Enteroscopy yesterday was unremarkable. Transfusing 3 units of PRBC repeat hemoglobin at 2 PM. No significant bloody output from ZAINAB drains. Will discuss with general surgery 12/14: Remains intubated sedated hemoglobin 7.9 today 1 unit PRBC ordered. Can melanotic stools or NG tube coffee-ground today. EGD yesterday showed friable mucosa at the esophageal anastomotic junction which was injected by GI. Otherwise endoscopies including colonoscopies unremarkable. Hemodynamically remained stable. Discussed extensively with GI and general surgery yesterday 12/15: Patient continues to have significant melanotic stools. Hemoglobin dropped to 7.8 and patient received 1 unit PRBC follow-up hemoglobin only 7.9. Additional 1 unit PRBC ordered. Status post EGD colonoscopy-essentially unremarkable except irritation at the esophageal anastomotic site. Bleeding is most likely small intestinal 12/16: Critically ill but slightly more stable today no obvious melanotic stools. According to the bedside RN when the tube feeds were disconnected there was some bleeding from the jejunostomy tube. Hemoglobin remained stable 7.8. Discussed with Dr. Wellington general surgeon, and his opinion bleeding likely from mucosal sloughing. Initiate spontaneous breathing trials 12/17: Remains critical hemoglobin dropped to 5.4 getting 3 units of PRBC. Extensive workup including EGD colonoscopy and bleeding scans x2 have been negative for active bleed. This seems to be most likely small intestinal bleed from mucosal bleed. Also it was not that the ZAINAB drain has color similar to tube feeds. I discussed with Dr. Wellington he will evaluate the patient afternoon. If there is suspicions will get CT scan after contrast through the J -tube 12/18: More awake alert follows commands weakly. No obvious bleeding hemoglobin 7.3. Will transfuse 1 unit PRBC. 12/19: Gastrointestinal bleeding appears to have stopped. Hemoglobin now stable. Tube feeds infusing. No more transfusions necessary. 12/20: Patient remains intubated sedated, hemoglobin is 6 will transfuse 1 unit PRBC. Hemodialysis scheduled for tomorrow. Appears weak pale. Very weakly follows commands on upper extremity. 12/21: We will try to extubate after dialysis today. Anticipate the tracheostomy at this point will be best for the patient but family would like to proceed with attempted extubation again. 12/22: Patient more alert this morning. Plan is to attempt to replace the jejunostomy tube which is plugged. Following that a new dialysis catheter will be placed. The triple-lumen central line will need to be next 24-48 hours. If remains alert we will try to extubate him today. 12/23: New lines in and functioning well. Afebrile today. More alert but failed swallow evaluation. Try again tomorrow, if unable will start enteral feeds if okay with surgical service. 12/24: Remains afebrile. We will continue to try swallowing eval. Increase activity and up in chair. Objective Vital Signs / I&O: Vital Signs 12/23/17 12:00 12/23/17 12:03 12/23/17 12:33 Temperature Pulse Rate 99 H 97 H 88 Respiratory Rate 26 H 19 13 Blood Pressure 121/56 L 131/62 Pulse Oximetry 98 97 97 12/23/17 13:00 12/23/17 13:03 12/23/17 13:18 Temperature Pulse Rate 89 95 H 96 H Respiratory Rate 15 16 15 Blood Pressure 121/58 L 117/61 Pulse Oximetry 98 98 98 12/23/17 13:33 12/23/17 13:48 12/23/17 14:00 Temperature Pulse Rate 94 H 94 H 86 Respiratory Rate 18 21 17 Blood Pressure 121/61 123/63 Pulse Oximetry 98 98 98 12/23/17 14:03 12/23/17 14:18 12/23/17 14:23 Temperature Pulse Rate 94 H 139 H 102 H Respiratory Rate 15 23 18 Blood Pressure 135/67 122/66 121/64 Pulse Oximetry 98 98 98 12/23/17 14:33 12/23/17 14:48 12/23/17 15:00 Temperature Pulse Rate 89 158 H 154 H Respiratory Rate 26 H 14 11 L Blood Pressure 124/65 115/58 L Pulse Oximetry 100 100 100 12/23/17 15:03 12/23/17 15:18 12/23/17 15:33 Temperature Pulse Rate 85 151 H 93 H Respiratory Rate 13 20 11 L Blood Pressure 118/56 L 128/58 L 135/62 Pulse Oximetry 100 100 100 12/23/17 15:48 12/23/17 16:00 12/23/17 16:03 Temperature Pulse Rate 100 H 111 H 108 H Respiratory Rate 17 19 17 Blood Pressure 125/58 L 138/65 Pulse Oximetry 100 100 100 12/23/17 16:18 12/23/17 16:33 12/23/17 16:48 Temperature Pulse Rate 146 H 96 H 98 H Respiratory Rate 12 15 15 Blood Pressure 124/57 L 134/61 132/62 Pulse Oximetry 100 100 100 12/23/17 17:00 12/23/17 17:03 12/23/17 17:18 Temperature Pulse Rate 96 H 92 H 103 H Respiratory Rate 10 L 10 L 16 Blood Pressure 136/64 139/62 Pulse Oximetry 100 100 100 12/23/17 17:33 12/23/17 17:48 12/23/17 18:00 Temperature Pulse Rate 95 H 100 H 116 H Respiratory Rate 11 L 10 L 11 L Blood Pressure 127/63 135/61 Pulse Oximetry 100 100 100 12/23/17 18:03 12/23/17 18:18 12/23/17 18:33 Temperature 99 F Pulse Rate 97 H 146 H 146 H Respiratory Rate 15 12 14 Blood Pressure 137/58 L 127/59 L 110/55 L Pulse Oximetry 100 100 100 12/23/17 19:00 12/23/17 20:03 12/23/17 21:00 Temperature 98.1 F Pulse Rate 106 H 91 H 95 H Respiratory Rate 12 13 19 Blood Pressure 90/52 L 104/53 L 116/59 L Pulse Oximetry 100 100 12/23/17 22:00 12/23/17 23:00 12/24/17 00:00 Temperature 98.2 F Pulse Rate 92 H 93 H 95 H Respiratory Rate 15 16 28 H Blood Pressure 142/62 H 120/57 L 140/63 Pulse Oximetry 99 100 100 12/24/17 01:00 12/24/17 02:00 12/24/17 03:00 Temperature Pulse Rate 92 H 99 H 98 H Respiratory Rate 13 14 22 Blood Pressure 154/70 H 158/71 H 143/65 H Pulse Oximetry 100 100 100 12/24/17 04:00 12/24/17 05:00 12/24/17 05:06 Temperature 97.8 F Pulse Rate 91 H 97 H Respiratory Rate 26 H 26 H Blood Pressure 139/61 122/58 L Pulse Oximetry 100 100 12/24/17 05:44 12/24/17 06:00 12/24/17 06:05 Temperature Pulse Rate 92 H 91 H Respiratory Rate 14 12 13 Blood Pressure 122/58 L 138/65 Pulse Oximetry 100 100 12/24/17 07:00 12/24/17 07:05 12/24/17 08:00 Temperature 98.1 F Pulse Rate 92 H 87 97 H Respiratory Rate 10 L 11 L 20 Blood Pressure 149/72 H Pulse Oximetry 100 94 L 12/24/17 08:05 12/24/17 09:00 12/24/17 09:05 Temperature Pulse Rate 94 H 95 H 94 H Respiratory Rate 24 22 19 Blood Pressure 146/70 H 154/89 H Pulse Oximetry 12/24/17 10:00 12/24/17 10:05 12/24/17 11:00 Temperature Pulse Rate 107 H 110 H 103 H Respiratory Rate 34 H 49 H 25 H Blood Pressure 137/62 Pulse Oximetry 97 97 97 Intake & Output 12/23/17 12/24/17 12/24/17 18:59 06:59 18:59 Intake Total 350 / 350 550 / 550 Output Total 920 / 920 620 / 620 Balance -570 / -570 -70 / -70 Weight 65.2 kg Intake: IV 350 / 350 550 / 550 Protonix Inj 80 MG In NS Inj 100 / 100 200 / 200 100 ML @ 10 mls/hr IV.CONT Q10H COLE Rx#:[id number] Merrem Inj 500 MG In NS Inj 100 100 / 100 100 / 100 ML @ 200 mls/hr IV.SIG Q8H COLE Rx#:[id number] Mycamine Inj 100 MG In NS Inj 100 / 100 100 ML @ 100 mls/hr IV.SIG Q24H COLE Rx#:[id number] Zosyn 2.25 GM Premix 50 ML @ 50 / 50 100 mls/hr IV.SIG Q8H COLE Rx#: [id number] fentaNYL 10 mcg/mL Premix Drip 250 / 250 2,500 mcg In 250 ml @ 50 MCG/HR 5 mls/hr IV.SIG TITRATE PRN Rx #:[id number] Oral 0 / 0 Output: Urine 200 / 200 Stool 200 / 200 Hemodialysis Amount 900 / 900 Wound Drainage 20 / 20 220 / 220 # 2 Right Abdomen 20 / 20 220 / 220 Other: # Incontinent Voids 2 Date of Last Bowel Movement 12/22/17 12/24/17 12/22/17 Result Diagrams: 12/24/17 05:10 12/24/17 05:10 Objective Remarks: GEN: Chronically ill-appearing, extubated, awake and interactive. HEENT: Pupils 2 mm and reactive bilaterally. Tracks with eyes NECK: Right IJ Vas-Cath CARDIO: NSR, normal S1, S2, regular rhythm, neck veins remain full PULM: Extubated. Few rhonchi persist, decreased breath sounds both bases. Good cough effort. GI: Dressings dry and clean. Abdomen soft. Bowel sounds present. No guarding SKIN: No rashes or lesions, dry NEURO: Following commands today. Interactive by head and few words. Moves 4 limbs spontaneously but only weakly. Assessment and Plan - Problem List (1) Gastric perforation Code(s): K25.5 - Chronic or unspecified gastric ulcer with perforation Status : Resolved (2) Status post total gastrectomy and Dinh-en-Y esophagojejunal anastomosis Code(s): Z90.3 - Acquired absence of stomach [part of]; Z98.0 - Intestinal bypass and anastomosis status Status: Acute (3) Ischemic hepatitis Code(s): K75.9 - Inflammatory liver disease, unspecified Status: Acute (4) Gastric necrosis Code(s): K31.89 - Other diseases of stomach and duodenum Status: Resolved (5) Thrombocytopenia Code(s): D69.6 - Thrombocytopenia, unspecified Status: Acute (6) Acute bilateral deep vein thrombosis (DVT) of upper extremities Code(s): I82.623 - Acute embolism and thrombosis of deep veins of upper extremity, bilateral Status: Acute (7) Anemia Code(s): D64.9 - Anemia, unspecified Status: Acute (8) Leukocytosis Code(s): D72.829 - Elevated white blood cell count, unspecified Status: Acute (9) Candidemia Code(s): B37.7 - Candidal sepsis Status: Acute (10) On total parenteral nutrition (TPN) Code(s): Z78.9 - Other specified health status Status: Acute (11) Hx of cardiac arrest Code(s): Z86.74 - Personal history of sudden cardiac arrest Status: Resolved (12) Acute hemodialysis patient Code(s): Z99.2 - Dependence on renal dialysis Status: Acute (13) JACLYN (acute kidney injury) Code(s): N17.9 - Acute kidney failure, unspecified Status: Acute (14) Aspiration pneumonia Code(s): J69.0 - Pneumonitis due to inhalation of food and vomit Status: Acute (15) Acute respiratory failure Code(s): J96.00 - Acute respiratory failure, unspecified whether with hypoxia or hypercapnia Status: Acute - Assessment and Plan Plan: NEURO: Metabolic encephalopathy Following commands x4 Resolving encephalopathy 12/22 Much more alert 12/23 RESP: Acute respiratory failure Left pleural effusion Left pigtail chest tube removed 12/18 Spontaneous breathing trials today, try to extubate. Extubated 12/22 CV: Cardiac arrest 11/23/17 (PEA arrest due to shock secondary to acute gastric perf and tension pneumoperitoneum) Septic shock, resolved Now off pressors. Hemodynamic monitoring Use as needed medication for hypertension Continued fluid removal with hemodialysis GI: s/p anterior gastric perforation with tension pneumoperitoneum status post ex lap with primary repair with stapler 11/23 On second look 11/25 he was found to have gastric necrosis requiring subtotal gastrectomy and placement of AB Thera VAC dressing. The bowel was in discontinuity and he was transferred to [facility]. On 11/28 reexploration with Dinh-en-y esophagojejunostomy, feeding jejunostomy placement, diagnostic EGD, primary fascial closure. Gastric necrosis , Ischemic hepatopathy GIB with blood loss anemia EGD, enteroscopy 12/12/2017 unremarkable, colonoscopy 12/13/2017 unremarkable. Bleeding scan did not show any particular site of bleeding Had right upper quadrant ultrasound on 11/27/17 that demonstrated contracted gallbladder with sludge. No evidence of cholecystitis. Echogenicity in right liver related to focal fatty change or altered perfusion, patent vascularity. Protonix GTT for GI bleed, left Minor decline in hemoglobin concentration FEN/RENAL: JACLYN secondary to ischemic ATN HD as started 11/26 at [place]. Has R IJ Vascath. Monitor I/O and electrolytes. Nephrology following Continue scheduled dialysis ID: Gastric perforation with large amount particulate peritoneal contamination 11/23 Acute Aspiration pneumonia Candidemia (C [place] 11/26 at culture) Patient evaluated by ophthalmology prior to transfer. Do not see an ophthalmology note in the transfer documentation, requested document. Requested culture data from [facility]. Follow-up cultures here Sputum culture 11/24 with pansensitive Klebsiella pneumonia HEME: Anemia requiring transfusion Thrombocytopenia-resolved Bilateral upper extremity DVTs U/s 11/26 BUE - thrombus R axillary, brachial and basilic veins and thrombus in left axillary and left brachial veins. U/s bilateral lower extremities 11/26 at [facility] negative from common femoral to popliteal vein levels. Arrived on heparin drip, due to GI bleed and anemia all anticoagulation is being held Hematology consult was obtained at [facility] and recommended heparin drip and transfuse prn for platelets <50k. ENDO: Monitor Glucose q4 hours and use low dose insulin sliding scale as indicated. PROPH: s/q heparin held due to blood loss anemia, GIB. Protonix for stress ulcer prophylaxis. DVT prophylaxis. ACCESS: New right subclavian central venous line placed 12/23 New right internal jugular hemodialysis catheter placed 12/23 Poor venous access sites. FULL CODE Overall impression: Finally extubated and protecting airway adequately. He did however fail his swallowing evaluation and will have to reconsider nutritional support. Remains afebrile following all lines being changed. Without stomach he will require multiple very small meals each day. (6) Acute bilateral deep vein thrombosis (DVT) of upper extremities Qualifiers: Affected thrombotic vein of extremity: brachial Qualified Code(s): I82.623 - Acute embolism and thrombosis of deep veins of upper extremity, bilateral (15) Acute respiratory failure Qualifiers: Respiratory failure complication: hypoxia Qualified Code(s): J96.01 - Acute respiratory failure with hypoxia
[2017-12-24] MEDS ORDERED: Iohexol 350 MG/ML 50 ML Vial (for Rad Diag) J-TUBE ONE (15:32)
--- NOTE | 2017-12-24 16:52 | IR ---
EXAM DATE: 12/24/2017 3:41 PM EST AGE/SEX: 47 years / Male INDICATIONS: Patient with a history of abdominal distention, clogged surgically placed J-tube. CLINICAL DATA: This is the patient's initial encounter. Patient reports that signs and symptoms have been present for 1 day and indicates a pain score of 0/10. MEDICAL/SURGICAL HISTORY: None. None. COMPARISON: No prior exams available for comparison. FLUORO TIME (min): 0.14 IMAGE SERIES: 1 SEDATION TIME (min): 10 CONTRAST (cc): 10cc Omnipaque (iohexol) 350 MEDICATION(S): 1mg midazolam (Versed) IV 50mcg fentanyl (Sublimaze) IV DEVICE(S): Surgical J-tube . . PROCEDURE : 1. Fluoroscopically guided tube injection. The risks, benefits and alternatives to the procedure were explained and verbal and written consent w as obtained. The site was prepped in sterile fashion. Full sterile technique was used, including ca p, mask, sterile gloves and gown and a large sterile sheet. Hand hygiene and 2% chlorhexidine and/or betadine/alcohol prep was utilized per protocol for cutaneous antisepsis. Patient was placed on the table and the existing jejunostomy catheter was apparently unclogged with m ultiple forceful injections of saline through the catheter. Contrast was injected through the cathete r under fluoroscopic guidance demonstrating widely patent jejunostomy catheter with flow of contrast into jejunal loops. CONCLUSION: 1. Uncomplicated tube injection as above. Electronically signed by: Ward Rubalcava MD 12/24/2017 4:51 PM EST
--- NOTE | 2017-12-24 17:18 | P.DIET ---
Nutritional Evaluation Type of nutrition evaluation: follow-up Nutrition consult regarding: Tube Feeding, TPN/PPN Nutrition screening: [facility] [place]: Re-admitted transfer from [facility]. Objective - Diagnosis Gastroenteritis - Objective % IBW: 92 (IBW = 190#) Body Weight Used for Calculations: Actual (79.4) Energy Needs - Lower Range (kCal/kg): 28 Energy Needs - Upper Range (kCal/kg): 32 Lower Limit kCal/kg (kCals): 2,223 Upper Limit kCal/kg (kCals): 2,541 Lower Limit Protein Factor (Grams per Kg): 1.2 Upper Limit Protein Factor (Grams per Kg): 1.5 Lower Protein Needs (Protein): 95 Upper Protein Needs (Protein): 119 Dietitian Reviewed in Medical Record: Curent medications, Intake & Output, Labs , Medical history Diet Order: NPO Objective Comments: see recent extensive hx in H&P Assessment Assessment: Pt extubated, TF on hold and he has failed his swallow eval. He continues at high nutritional risk r/t Clinical Status and need for alternative method of nutrition. Pt currently dialysis dependent. TPN/Lipids d/c'ed. If diet can not be advanced, recommend Nepro @ 55ml/hr to provide 2376 kcal, 107g protein and 960ml free water. Labs reviewed. Wt changes noted. CBW = 65.2 kg ( admission wt was 93.7 kg). Recommendations: Nepro @ 55ml/hr goal Dietitian to Monitor: Lab values, Intake & Output, Tube feeding tolerance, Weight change, Diet advancement, Swallow recommendations, Medical course
[2017-12-25] MEDS: Pantoprazole Inj 80 MG in Sodium Chlor 0.9% Inj 100 ML IV.CONT SCH ×5 (00:56→23:11)
[2017-12-25 06:27] LABS: Albumin 1.8 g/dL (3.4-5.0); Calcium 8.1 mg/dL (8.5-10.1); Carbon Dioxide 22.9 meq/L (21.0-32.0); Phosphorus 7.6 mg/dL (2.5-4.9); Potassium 3.5 meq/L (3.5-5.1)
--- NOTE | 2017-12-25 08:51 | P.PN ---
Subjective Interval history: [employer] notes: [place] [facility] and transferred to [facility] 11/26/17 after the following hospital course: 47-year-old -Serbian male with reportedly no past medical or past surgical history who was admitted to hospitalist service 11/22/17 after presenting with abdominal pain, nausea, vomiting. He had CT abd/pelvis with massive gastric distention. NG tube had been placed. I was called to patient's bedside for CODE BLUE PEA arrest. CPR was ongoing and patient had massive abdominal distension and gastric regurgitant in the airway. He was emergently intubated and large amount of gastric secretions suctioned from oropharynx. After 21 minutes of CPR, ROSC was obtained and he was profoundly hypotensive. Continued aggressive fluid resuscitation and initiated dopamine. He was transferred to [facility] where CVL and R radial art line were placed and he was given 7 L of crystalloid and albumin. CXR demonstrated pneumoperitoneum and Dr. Martin Gudino was called emergently and he immediately contacted OR for emergent ex lap. He had intraabdominal hypertension with IAP of 40 mmHg, though fortunately was able to be ventilated adequately after rocuronium 50 mg IV and was transferred to OR. Dr. Martin Gudino took to the operating room early in the morning on 11/23 and discovered tension pneumoperitoneum, massive gastric distension, ischemia of the proximal 2/3 of the stomach and large gastric perforation with massive intraperitoneal contamination with food particles. Dr. Isaacs placed 2 NGT and decompressed 2 L of succus. Patient had initial improvement in vital signs in the immediate postoperative period, however he subsequently became hypotensive requiring upward titration of levophed and addition of vasopressin and stress dose hydrocortisone. He remains on levophed 10 mcg/min, neosynephrine 80 mcg/ min, vasopressin 0.04 units/min with overall vasopressor requirement weaning overnight. He is oliguric and creatinine is continuing to climb. He was given 2 L of crystalloid and albumin overnight. He does have significant fluid losses with combination of abdominal dressing and NGT output, so I will give an additional L of crystalloid now to monitor hourly response as he certainly does not appear volume overloaded. Nonetheless Flotrac numbers are suggesting adequate volume status and we may be seeing the consequence of ischemic ATN. May ultimately require HD, however not at this time. Abdomen remains open and plan is to re-explore 11/25. 11/25: Patient has acceptable hemodynamics by Flotrac but remains septic with requirements for phenylephrine 200 mics per minute, Levophed 8 mics per minute and vasopressin 0.04 units/min for blood pressure support. This has improved overnight and the Bhavesh-Synephrine support has been weaned off completely. Acid base balance is acceptable. ATN has developed which will undoubtedly require hemodialysis. Potassium level is normal. He is at increased risk for an anesthetic now but there is an urgent need to check for residual gastric necrosis. 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 Since the source control surgery, the maintenance of normal acid-base balance has been less difficult. Patient remains anuric with a rising creatinine above 6.0. He is clearly ahead on volume and will benefit from dialysis. A 2 lumen hemodialysis catheter was placed on 11/25 and has been packed with dilute heparin solution. The right internal jugular central line is been in place for 4 days and accessed multiple times. The femoral art line has been in for 4 days. Shock liver was apparent after the cardiac arrest reflecting a transaminitis, elevated bilirubin, and prolonged INR. The INR has remained normal following the transfusion of 4 units of fresh frozen plasma prior to surgery yesterday. A 10% dextrose infusion continues because of ongoing problems with hypoglycemia. Thrombocytopenia at 37,000 persists. He has remained on antibiotic coverage with Pipracil/tazobactam and fungal coverage with fluconazole, all adjusted for renal failure. Present vasopressor requirements include levophed at 7 mics per minute and vasopressin at 0.04 units/min. The chest x-ray is consistent with minor aspiration at the time of his preoperative cardiac arrest on the floor and cultures have subsequently grown Klebsiella, pansensitive. The operative note will clarify the extent of the surgery but in essence the distal esophagus is stapled off and marked with 2 Prolene sutures. The antrum of the stomach is oversewn. Most of the stomach has been removed. The abdomen is open with a VAC dressing applied. 11/29: Bowel was in discontinuity following subtotal gastrectomy and patient was transferred to [facility]. On reexploration 11/28 he underwent Dinh-en-y esophagojejunostomy, feeding jejunostomy placement, diagnostic EGD, primary fascial closure. Wound vac was applied to abdomen (though currently wet to dry dressing in place upon arrival). He was reportedly found to have candidemia and was started on micafungin and has undergone ophtho eval. Lines including CVL, Vascath and art line have all been changed at [facility] (though not clear when). He remains on mechanical ventilation and has been weaned off pressors. He was found to have BUE DVTs and is on heparin drip. He is on TPN and has been started on trickle tube feeds with Nepro via jejunostomy. NGT is to [facility] He underwent HD postoperatively on 11/28. He has now been transferred back [place] [facility] [place] management. I have updated his father and stepmother. 11/30: Patient re-admitted s/p transfer from [facility] overnight, otherwise no acute issues. Scheduled to undergo HD today. 12/01: T-max 101.7, leukocytosis to 27,000 with bandemia. Now 3 days following Dinh-en-Y reconstruction of GI tract following sub-total gastrectomy for gastric necrosis. All new lines placed after diagnosis of candidemia. TPN infusing, jejunostomy at trickle flow and can be increased slowly per general surgery. 12/02: Marked leukocytosis with bandemia persists. Afebrile over last 24 hours. Leave NG tube across the esophageal anastomosis and surgical service will direct timing of contrast study about 7 days following surgery. Continue with spontaneous breathing trials. 12/03: extubated yesterday. since then, has not followed commands, and does not talk. appears to have clinically an aphasia, although his uremia or severe hypoactive delirium could present this way. purposeful movements. will obtain MRI to rule out acute ischemia, as this appears to be a new mental status change (11/29 /[facility] notes state interactive on ventilator). 12/04: reintubated overnight: more output from ZAINAB drains. hgb dropped to 7 this AM: receiving 1 unit prbc. MRI negative for acute change. EEG ordered today to rule out subclinical status epilepticus. also concern overnight for aspiration event. 12/05: T-max 99. WBC 24,000. Reintubated yesterday for respiratory failure probably related to aspiration. Trickle feeding continues through jejunostomy. Nasogastric tube is through the anastomosis and is to low intermittent. 12/06: Afebrile. WBC 26,000. Bandemia has largely resolved. There are bilateral pleural effusions which may need to be tapped to rule out infection or leak. Both lower lobes are consolidated on CAT scan, probably representing compressive atelectasis from the effusions. 12/07: White count remains elevated at 25,000. Total parenteral nutrition infusing and tolerated. Altered mental status persists, possibly related to the cardiac arrest on the floor prior to transfer to the ICU. 12/08: Tolerating total parenteral nutrition with good glucose control. Leukocytosis persists. Fluid tap from left chest bit cloudy, cultures pending. Maintaining adequate gas exchange on lower levels of fractional inspired oxygen. Aim for extubation trial again soon. 12/09: Patient considerably less edematous over the past several days following successful dialysis runs. Continually fails attempts at weaning parameters and desaturation. Left chest drainage is no growth by culture. White blood cell count remains elevated. 12/10: Remains intubated. WBC count elevated but stable. Left chest tube with 260 mL output in 24 hours. BUN/creatinine remains elevated 12/11: Remains intubated sedated hemoglobin dropped to 5.8 today. RN has noted lower GI bleed. Protonix IV every 12 started and GI consulted. Transfuse 2 units PRBC. Keep n.p.o. discussed with Dr. Wellington 12/12: Patient remains intubated sedated for vent synchrony. Hemoglobin stable 7.5. Endoscopy negative yesterday CT abdomen pelvis no active bleeding. Hemodynamically remained stable. Receiving hemodialysis at this time. Left chest tube with high output 450 mL in 24 hours. Attempt weaning trials starting today 12/13: Patient continues to lose blood. Hemoglobin 5.5. Plan to get colonoscopy today. Continues to have melanotic stools. The night RN aspirated blood from jejunostomy tube. Enteroscopy yesterday was unremarkable. Transfusing 3 units of PRBC repeat hemoglobin at 2 PM. No significant bloody output from ZAINAB drains. Will discuss with general surgery 12/14: Remains intubated sedated hemoglobin 7.9 today 1 unit PRBC ordered. Can melanotic stools or NG tube coffee-ground today. EGD yesterday showed friable mucosa at the esophageal anastomotic junction which was injected by GI. Otherwise endoscopies including colonoscopies unremarkable. Hemodynamically remained stable. Discussed extensively with GI and general surgery yesterday 12/15: Patient continues to have significant melanotic stools. Hemoglobin dropped to 7.8 and patient received 1 unit PRBC follow-up hemoglobin only 7.9. Additional 1 unit PRBC ordered. Status post EGD colonoscopy-essentially unremarkable except irritation at the esophageal anastomotic site. Bleeding is most likely small intestinal 12/16: Critically ill but slightly more stable today no obvious melanotic stools. According to the bedside RN when the tube feeds were disconnected there was some bleeding from the jejunostomy tube. Hemoglobin remained stable 7.8. Discussed with Dr. Wellington general surgeon, and his opinion bleeding likely from mucosal sloughing. Initiate spontaneous breathing trials 12/17: Remains critical hemoglobin dropped to 5.4 getting 3 units of PRBC. Extensive workup including EGD colonoscopy and bleeding scans x2 have been negative for active bleed. This seems to be most likely small intestinal bleed from mucosal bleed. Also it was not that the ZAINAB drain has color similar to tube feeds. I discussed with Dr. Wellington he will evaluate the patient afternoon. If there is suspicions will get CT scan after contrast through the J -tube 12/18: More awake alert follows commands weakly. No obvious bleeding hemoglobin 7.3. Will transfuse 1 unit PRBC. 12/19: Gastrointestinal bleeding appears to have stopped. Hemoglobin now stable. Tube feeds infusing. No more transfusions necessary. 12/20: Patient remains intubated sedated, hemoglobin is 6 will transfuse 1 unit PRBC. Hemodialysis scheduled for tomorrow. Appears weak pale. Very weakly follows commands on upper extremity. 12/21: We will try to extubate after dialysis today. Anticipate the tracheostomy at this point will be best for the patient but family would like to proceed with attempted extubation again. 12/22: Patient more alert this morning. Plan is to attempt to replace the jejunostomy tube which is plugged. Following that a new dialysis catheter will be placed. The triple-lumen central line will need to be next 24-48 hours. If remains alert we will try to extubate him today. 12/23: New lines in and functioning well. Afebrile today. More alert but failed swallow evaluation. Try again tomorrow, if unable will start enteral feeds if okay with surgical service. 12/24: Remains afebrile. We will continue to try swallowing eval. Increase activity and up in chair. Hospitalist Notes: 12/25: Seen in his bedroom in the presence of relative, no new issues, no nausea , vomit or diarrhea. General Surgery following recommended for Pureed/thickened liquid diet, asked for PT and Wound care at this time, he has sacral wound, has Open surgical wound and ZAINAB drain in place. Physical Exam Vital signs: Vital Signs 12/24/17 09:00 12/24/17 09:05 12/24/17 10:00 Temperature Pulse Rate 95 H 94 H 107 H Respiratory Rate 22 19 34 H Blood Pressure 154/89 H Pulse Oximetry 97 12/24/17 10:05 12/24/17 11:00 12/24/17 11:05 Temperature Pulse Rate 110 H 103 H 103 H Respiratory Rate 49 H 25 H 16 Blood Pressure 137/62 141/66 H Pulse Oximetry 97 97 97 12/24/17 12:00 12/24/17 12:05 12/24/17 13:00 Temperature 97.7 F Pulse Rate 103 H 103 H 106 H Respiratory Rate 20 24 22 Blood Pressure 152/82 H Pulse Oximetry 98 97 99 12/24/17 13:05 12/24/17 14:00 12/24/17 14:05 Temperature Pulse Rate 108 H 100 H 100 H Respiratory Rate 25 H 12 14 Blood Pressure 122/58 L 126/58 L Pulse Oximetry 99 98 97 12/24/17 15:27 12/24/17 15:32 12/24/17 16:00 Temperature 98.8 F Pulse Rate 102 H 102 H 94 H Respiratory Rate 15 16 21 Blood Pressure 151/72 H Pulse Oximetry 97 97 97 12/24/17 17:00 12/24/17 18:00 12/24/17 19:00 Temperature Pulse Rate 99 H 106 H 113 H Respiratory Rate 11 L 45 H 27 H Blood Pressure 136/65 154/78 H Pulse Oximetry 96 96 98 12/24/17 20:00 12/24/17 21:00 12/24/17 22:00 Temperature 98 F Pulse Rate 107 H 102 H 95 H Respiratory Rate 37 H 39 H 62 H Blood Pressure 176/85 H 176/82 H 133/59 L Pulse Oximetry 97 96 96 12/24/17 23:00 12/25/17 00:00 12/25/17 01:00 Temperature 97.8 F Pulse Rate 100 H 96 H 94 H Respiratory Rate 80 H 22 20 Blood Pressure 115/56 L 118/57 L 157/71 H Pulse Oximetry 97 95 12/25/17 02:00 12/25/17 03:00 12/25/17 04:00 Temperature 97.9 F Pulse Rate 95 H 98 H 94 H Respiratory Rate 80 H 20 22 Blood Pressure 172/75 H 163/78 H 137/61 Pulse Oximetry 95 100 97 12/25/17 05:00 12/25/17 06:00 Temperature Pulse Rate 101 H 110 H Respiratory Rate 68 H 57 H Blood Pressure 143/63 H 153/68 H Pulse Oximetry 100 100 Intake & Output 12/24/17 12/25/17 12/25/17 18:59 06:59 18:59 Intake Total 400 / 400 840 / 840 100 / 100 Output Total 700 / 700 420 / 420 Balance -300 / -300 420 / 420 100 / 100 Weight 64.2 kg Intake: IV 400 / 400 200 / 200 100 / 100 Protonix Inj 80 MG In NS Inj 100 / 100 100 / 100 100 ML @ 10 mls/hr IV.CONT Q10H COLE Rx#:[id number] Merrem Inj 500 MG In NS Inj 100 200 / 200 100 / 100 100 / 100 ML @ 200 mls/hr IV.SIG Q8H COLE Rx#:[id number] Mycamine Inj 100 MG In NS Inj 100 / 100 100 ML @ 100 mls/hr IV.SIG Q24H COLE Rx#:[id number] Oral 640 / 640 Output: Urine 0 / 0 Stool 500 / 500 200 / 200 Wound Drainage 200 / 200 220 / 220 # 2 Right Abdomen 200 / 200 220 / 220 Other: Date of Last Bowel Movement 12/22/17 12/25/17 Narrative: GEN: Chronically ill-appearing, extubated, awake and interactive. HEENT: mucous membranes. NECK: Right IJ Vas-Cath CARDIO: NSR, normal S1, S2, regular rhythm, neck veins remain full PULM: Extubated. Few rhonchi persist, decreased breath sounds both bases. Good cough effort. GI: Dressings dry and clean. Abdomen soft. surgical wound open, ZAINAB drain in place and draining, SKIN: sacral wound seen Stage II. NEURO: Following commands today. Interactive by head and few words. Moves 4 limbs spontaneously but only weakly. - Urinary Catheter Management Indwelling Temp Sensing Catheter Cath placed during this visit: no Results - Labs CBC & Chem 7: 12/25/17 05:30 12/25/17 05:30 Laboratory Results - last 24 hr 12/16/17 12/24/17 12/24/17 05:40 05:10 12:20 Hgb 7.8 L WBC Differential Manual diff final Seg Neuts % (Manual) 76 H Band Neuts % (Manual) 1 Lymphocytes % (Manual) 5 L Monocytes % (Manual) 7 Eosinophils % (Manual) 8 H Metamyelocytes % (Man) 2 H Myelocytes % (Man) 1 H Abs Neuts (Manual) 14.4 H Platelet Estimate Normal Platelet Morphology Normal Basophilic Stippling Faint H Sodium Potassium Chloride Carbon Dioxide Anion Gap BUN Creatinine Estimated GFR Random Glucose Calcium Phosphorus Albumin MTS Gel Crossmatch See Detail 12/25/17 12/25/17 05:30 05:30 Hgb 7.8 L WBC Differential Seg Neuts % (Manual) Band Neuts % (Manual) Lymphocytes % (Manual) Monocytes % (Manual) Eosinophils % (Manual) Metamyelocytes % (Man) Myelocytes % (Man) Abs Neuts (Manual) Platelet Estimate Platelet Morphology Basophilic Stippling Sodium 145 Potassium 3.5 Chloride 108 H Carbon Dioxide 22.9 Anion Gap 14 BUN 70 H Creatinine 7.18 H Estimated GFR 10 L Random Glucose 76 Calcium 8.1 L D Phosphorus 7.6 H Albumin 1.8 L MTS Gel Crossmatch - Imaging Impressions Jejunostomy Tube Placement 12/24/17 00:00 CONCLUSION: 1. Uncomplicated tube injection as above. Assessment and Plan - Plan 1. Metabolic Encephalopathy Resolving 2. Acute Respiratory Failure/Left pleural effusion, left pigtail chest tube removed 12/18 Extubated 12/22 continue Bronchodilator, Mucolytic and Incentive spirometry. 3. Cardiac Arrest 11/23/17 PEA arrest due to shock secondary to acute gastric perforation and tension pneumoperitoneum Improved continue fluid removal with Hemodialysis. 4. Status post anterior gastric perforation with tension pneumoperitoneum/ Status post Exploratory laparotomy repair with stapler 11/23 and Second look 11/25 found gastric necrosis requiring subtotal gastrectomy and placement of AB Thera VAC dressing, transferred to [facility] 11/28 reexploration with Dinh-en-y esophagojejunostomy, feeding jejunostomy placement diagnostic EGD primary fascial closure. Ischemic Hepatopathy GIB with acute blood loss anemia EGD, enteroscopy 12/12/2017 unremarkable, colonoscopy 12/13/2017 unremarkable. Bleeding scan did not show any particular site of bleeding Had right upper quadrant ultrasound on 11/27/17 that demonstrated contracted gallbladder with sludge. No evidence of cholecystitis. Echogenicity in right liver related to focal fatty change or altered perfusion, patent vascularity. Protonix GTT for GI bleed. 12/25: General Surgery following recommended for Pureed/thickened liquid diet. 5. JACLYN secondary to Ischemic ATN HD started 11/26 Nephrology following. 6. Gastric perforation with large amount particulate peritoneal contamination Acute Aspiration Pneumonia Candidemia C [place] 11/26 at culture 7. Anemia requiring transfusion/Thrombocytopenia resolved Bilateral Upper extremity DVTs, U/s 11/26 BUE - thrombus R axillary, brachial and basilic veins and thrombus in left axillary and left brachial veins. Hematology consult was obtained at [facility] and recommended heparin drip and transfuse prn for platelets <50k. Hemoglobin 7.6 asked for blood transfusion by Nephrology specialist 8. Sacral wound Stage II asked for wound care PT evaluation environmental specialist consult PROPH: s/q heparin held due to blood loss anemia, GIB. Protonix for stress ulcer prophylaxis. DVT prophylaxis. Code Status: Full code. Discussed Condition With: Patient and Nurse, also relative present. Discharge Planning: Once cleared by specialists.
--- NOTE | 2017-12-25 09:22 | P.PNGS ---
Subjective Interval history: Resting in bed Receiving HD Physical Exam Vital signs: Vital Signs 12/24/17 10:00 12/24/17 10:05 12/24/17 11:00 Temperature Pulse Rate 107 H 110 H 103 H Respiratory Rate 34 H 49 H 25 H Blood Pressure 137/62 Pulse Oximetry 97 97 97 12/24/17 11:05 12/24/17 12:00 12/24/17 12:05 Temperature 97.7 F Pulse Rate 103 H 103 H 103 H Respiratory Rate 16 20 24 Blood Pressure 141/66 H 152/82 H Pulse Oximetry 97 98 97 12/24/17 13:00 12/24/17 13:05 12/24/17 14:00 Temperature Pulse Rate 106 H 108 H 100 H Respiratory Rate 22 25 H 12 Blood Pressure 122/58 L Pulse Oximetry 99 99 98 12/24/17 14:05 12/24/17 15:27 12/24/17 15:32 Temperature Pulse Rate 100 H 102 H 102 H Respiratory Rate 14 15 16 Blood Pressure 126/58 L 151/72 H Pulse Oximetry 97 97 97 12/24/17 16:00 12/24/17 17:00 12/24/17 18:00 Temperature 98.8 F Pulse Rate 94 H 99 H 106 H Respiratory Rate 21 11 L 45 H Blood Pressure 136/65 Pulse Oximetry 97 96 96 12/24/17 19:00 12/24/17 20:00 12/24/17 21:00 Temperature 98 F Pulse Rate 113 H 107 H 102 H Respiratory Rate 27 H 37 H 39 H Blood Pressure 154/78 H 176/85 H 176/82 H Pulse Oximetry 98 97 96 12/24/17 22:00 12/24/17 23:00 12/25/17 00:00 Temperature 97.8 F Pulse Rate 95 H 100 H 96 H Respiratory Rate 62 H 80 H 22 Blood Pressure 133/59 L 115/56 L 118/57 L Pulse Oximetry 96 97 95 12/25/17 01:00 12/25/17 02:00 12/25/17 03:00 Temperature Pulse Rate 94 H 95 H 98 H Respiratory Rate 20 80 H 20 Blood Pressure 157/71 H 172/75 H 163/78 H Pulse Oximetry 95 100 12/25/17 04:00 12/25/17 05:00 12/25/17 06:00 Temperature 97.9 F Pulse Rate 94 H 101 H 110 H Respiratory Rate 22 68 H 57 H Blood Pressure 137/61 143/63 H 153/68 H Pulse Oximetry 97 100 100 Intake & Output 12/24/17 12/25/17 12/25/17 18:59 06:59 18:59 Intake Total 400 / 400 840 / 840 100 / 100 Output Total 700 / 700 420 / 420 Balance -300 / -300 420 / 420 100 / 100 Weight 64.2 kg Intake: IV 400 / 400 200 / 200 100 / 100 Protonix Inj 80 MG In NS Inj 100 / 100 100 / 100 100 ML @ 10 mls/hr IV.CONT Q10H COLE Rx#:[id number] Merrem Inj 500 MG In NS Inj 100 200 / 200 100 / 100 100 / 100 ML @ 200 mls/hr IV.SIG Q8H COLE Rx#:[id number] Mycamine Inj 100 MG In NS Inj 100 / 100 100 ML @ 100 mls/hr IV.SIG Q24H COLE Rx#:[id number] Oral 640 / 640 Output: Urine 0 / 0 Stool 500 / 500 200 / 200 Wound Drainage 200 / 200 220 / 220 # 2 Right Abdomen 200 / 200 220 / 220 Other: Date of Last Bowel Movement 12/22/17 12/25/17 Narrative: Alert and awake Abd: midline incision healing with nice granulated tissue; ZAINAB with serous drainage; J tube in place---hasn't been replaced yet Edema continue to improve - Urinary Catheter Management Indwelling Temp Sensing Catheter Cath placed during this visit: no Results - Labs 12/26/17 05:20 12/26/17 05:20 Laboratory Results - last 24 hr 12/16/17 12/24/17 12/25/17 05:40 12:20 05:30 Hgb 7.8 L 7.8 L Sodium Potassium Chloride Carbon Dioxide Anion Gap BUN Creatinine Estimated GFR Random Glucose Calcium Phosphorus Albumin MTS Gel Crossmatch See Detail 12/25/17 05:30 Hgb Sodium 145 Potassium 3.5 Chloride 108 H Carbon Dioxide 22.9 Anion Gap 14 BUN 70 H Creatinine 7.18 H Estimated GFR 10 L Random Glucose 76 Calcium 8.1 L D Phosphorus 7.6 H Albumin 1.8 L MTS Gel Crossmatch - Imaging Imaging: ITS Impressions Head MRI 12/03/17 00:00 CONCLUSION: 1. Minimal nonspecific periventricular white matter changes. 2. No restricted diffusion to suggest an acute ischemic event. 3. No evidence for significant ischemic changes. Chest CT 12/04/17 00:06 CONCLUSION: 1. Left greater than right pleural effusions and basilar atelectasis. 2. No hemorrhage or hematoma demonstrated. 3. Distended and fluid-filled esophagus. No wall thickening. Patient is status post gastrectomy. Nasogastric tube is at the GE junction. 4. Body wall edema/anasarca. Abdomen X-Ray 12/08/17 00:00 CONCLUSION: 1. 2 left-sided abdominal catheters. 2. Nonspecific bowel gas pattern. Abdomen/Pelvis CT 12/13/17 00:00 CONCLUSION: 1. New proximal small bowel dilatation. No discrete transition point. Contrast is seen in the distal small bowel. Findings may represent ileus or partial obstruction. 2. Postsurgical findings with surgical drains in the left upper quadrant. Free fluid is seen in the left upper quadrant. Loculated rounded 5 cm area of fluid with thin peripheral enhancement also noted just inferior to the surgical drains. 3. Prominent left lower lobe pulmonary consolidation and small left pleural effusion. GI Bleed Scan Nuclear Medicine 12/15/17 00:00 CONCLUSION: No active bleeding demonstrated. Chest X-Ray 12/22/17 00:00 CONCLUSION: 1. Persistent patchy infiltrate within the left lung base. 2. Multiple tubes and lines are stable. The nasogastric tube remains with its tip in the distal esophagus. New right subclavian central line has its tip in superior vena cava. No pneumothorax is noted. Small Bowel X-Ray 12/22/17 00:00 CONCLUSION: No evidence of bowel obstruction. There is mild diffuse small bowel wall thickening identified within the jejunum and ileum consistent with possible edema given the appearance on initial imaging. Drain overlying the left lower quadrant. Jejunostomy Tube Placement 12/24/17 00:00 CONCLUSION: 1. Uncomplicated tube injection as above. Assessment and Plan - Assessment (1) Gastric perforation Code(s): K25.5 - Chronic or unspecified gastric ulcer with perforation Status : Resolved Plan: 47yo male s/p Exlap and gastrectomy for gastric perforation, s/p esophagojejunostomy at [facility] -Extubated; stable on RA -Pureed/thickened liquid diet--- will need to eat small more frequent meals -Replace/de-clog J tube in IR -HD per Nephrology -Needs aggressive PT - Attending Attestation i certify and attest i personally saw the patient and discussed care with nurse and patient at bedside. rag washer documented our visit, jennifer smiley md facs
--- NOTE | 2017-12-25 09:57 | P.PNNP ---
Subjective Interval history: patient was seen and examined during dialysis. On 3K, will switch to 4K for 1/2 of the treatment. He is awake, somewhat confused. TF held. Physical Exam Vital signs: Vital Signs 12/24/17 10:00 12/24/17 10:05 12/24/17 11:00 Temperature Pulse Rate 107 H 110 H 103 H Respiratory Rate 34 H 49 H 25 H Blood Pressure 137/62 Pulse Oximetry 97 97 97 12/24/17 11:05 12/24/17 12:00 12/24/17 12:05 Temperature 97.7 F Pulse Rate 103 H 103 H 103 H Respiratory Rate 16 20 24 Blood Pressure 141/66 H 152/82 H Pulse Oximetry 97 98 97 12/24/17 13:00 12/24/17 13:05 12/24/17 14:00 Temperature Pulse Rate 106 H 108 H 100 H Respiratory Rate 22 25 H 12 Blood Pressure 122/58 L Pulse Oximetry 99 99 98 12/24/17 14:05 12/24/17 15:27 12/24/17 15:32 Temperature Pulse Rate 100 H 102 H 102 H Respiratory Rate 14 15 16 Blood Pressure 126/58 L 151/72 H Pulse Oximetry 97 97 97 12/24/17 16:00 12/24/17 17:00 12/24/17 18:00 Temperature 98.8 F Pulse Rate 94 H 99 H 106 H Respiratory Rate 21 11 L 45 H Blood Pressure 136/65 Pulse Oximetry 97 96 96 12/24/17 19:00 12/24/17 20:00 12/24/17 21:00 Temperature 98 F Pulse Rate 113 H 107 H 102 H Respiratory Rate 27 H 37 H 39 H Blood Pressure 154/78 H 176/85 H 176/82 H Pulse Oximetry 98 97 96 12/24/17 22:00 12/24/17 23:00 12/25/17 00:00 Temperature 97.8 F Pulse Rate 95 H 100 H 96 H Respiratory Rate 62 H 80 H 22 Blood Pressure 133/59 L 115/56 L 118/57 L Pulse Oximetry 96 97 95 12/25/17 01:00 12/25/17 02:00 12/25/17 03:00 Temperature Pulse Rate 94 H 95 H 98 H Respiratory Rate 20 80 H 20 Blood Pressure 157/71 H 172/75 H 163/78 H Pulse Oximetry 95 100 12/25/17 04:00 12/25/17 05:00 12/25/17 06:00 Temperature 97.9 F Pulse Rate 94 H 101 H 110 H Respiratory Rate 22 68 H 57 H Blood Pressure 137/61 143/63 H 153/68 H Pulse Oximetry 97 100 100 Intake & Output 12/24/17 12/25/17 12/25/17 18:59 06:59 18:59 Intake Total 400 / 400 840 / 840 100 / 100 Output Total 700 / 700 420 / 420 Balance -300 / -300 420 / 420 100 / 100 Weight 64.2 kg Intake: IV 400 / 400 200 / 200 100 / 100 Protonix Inj 80 MG In NS Inj 100 / 100 100 / 100 100 ML @ 10 mls/hr IV.CONT Q10H COLE Rx#:[id number] Merrem Inj 500 MG In NS Inj 100 200 / 200 100 / 100 100 / 100 ML @ 200 mls/hr IV.SIG Q8H COLE Rx#:[id number] Mycamine Inj 100 MG In NS Inj 100 / 100 100 ML @ 100 mls/hr IV.SIG Q24H COLE Rx#:[id number] Oral 640 / 640 Output: Urine 0 / 0 Stool 500 / 500 200 / 200 Wound Drainage 200 / 200 220 / 220 # 2 Right Abdomen 200 / 200 220 / 220 Other: Date of Last Bowel Movement 12/22/17 12/25/17 - Constitutional no acute distress, thin, chronically ill appearing - Routine HEENT Exam Head: Present: normocephalic, atraumatic Eye: Present: EOMI, PERRL - Routine Neck Exam Absent: JVD, lymphadenopathy, thyromegaly - Routine Respiratory Exam Present: CTA bilaterally, diminished air movement - Routine Cardiovascular Exam Present: RRR, S1, S2 - Routine Abdominal Exam Present: soft Comments: some distension is noted. J-P drain in place. - Routine Extremities Exam Absent: edema - Routine Neurological Exam confusion. - Urinary Catheter Management Indwelling Temp Sensing Catheter Cath placed during this visit: no Assessment and Plan - Assessment (1) JACLYN (acute kidney injury) Code(s): N17.9 - Acute kidney failure, unspecified Status: Acute Plan: Continue dialysis. Monitor for renal recovery. Avoid nephrotoxic agents. Seen during dialysis. (2) Acute respiratory failure Code(s): J96.00 - Acute respiratory failure, unspecified whether with hypoxia or hypercapnia Status: Acute Qualifiers: Respiratory failure complication: hypoxia Qualified Code(s): J96.01 - Acute respiratory failure with hypoxia Plan: Resolved, Extubated, on room air (3) Gastric perforation Code(s): K25.5 - Chronic or unspecified gastric ulcer with perforation Status : Resolved Plan: s/p surgery. Subtotal gastrectomy in [place]. In [facility] he had: Dinh-en-y esophagojejunostomy, feeding jejunostomy placement, diagnostic EGD, primary fascial closure. Date of procedure: 11/28/17 Negative bleeding scan - follow with GI, surgery. No immediate surgical plans at this point (4) Candidemia Code(s): B37.7 - Candidal sepsis Status: Acute Plan: On Micafungin. Dose medications appropriate to renal function. (5) DVT (deep venous thrombosis) Code(s): I82.409 - Acute embolism and thrombosis of unspecified deep veins of unspecified lower extremity Status: Acute Plan: DVT of bilateral upper extremities. (6) Anemia Code(s): D64.9 - Anemia, unspecified Status: Acute Plan: HGB dropped to 7.6 Could be multifactorial. Plan to transfuse 1 unit of PRBC today
[2017-12-25] MEDS: Heparin 10,000 UNITS/10 ML Vial (for IV use) OTHER PRN (10:15)
[2017-12-25] MEDS: Calcium Acetate 667 MG Capsule PO SCH ×3 (12:27→18:48)
[2017-12-25] MEDS: hydrALAZINE 50 MG Tablet PO SCH ×3 (12:27→18:48)
[2017-12-25] MEDS: fentaNYL 10 mcg/mL Premix Drip 2,500 MCG/250 ML BAG IV.SIG PRN (12:29)
--- NOTE | 2017-12-25 17:07 | P.PNID ---
Subjective Remarks: Patient is awake. On room air. Unresponsive but not verbalizing much. Indicates to me that he is eating. Looks like he has a soft diet. Afebrile. WBC remain elevated. Wound culture from ZAINAB site has ESBL klebsiella. Abdominal drainage catheter has straw colored drainage. Reintubated 12/04 Antibiotics: Micafungin Mer[facility]em [facility] Past Medical History: Reviewed Allergies/Adverse Reactions: Allergies No Known Allergies Allergy (Verified 11/22/17 02:38) Objective Vital Signs 12/24/17 18:00 12/24/17 19:00 12/24/17 20:00 Temperature 98 F Pulse Rate 106 H 113 H 107 H Respiratory Rate 45 H 27 H 37 H Blood Pressure 136/65 154/78 H 176/85 H Pulse Oximetry 96 98 97 12/24/17 21:00 12/24/17 22:00 12/24/17 23:00 Temperature Pulse Rate 102 H 95 H 100 H Respiratory Rate 39 H 62 H 80 H Blood Pressure 176/82 H 133/59 L 115/56 L Pulse Oximetry 96 96 97 12/25/17 00:00 12/25/17 01:00 12/25/17 02:00 Temperature 97.8 F Pulse Rate 96 H 94 H 95 H Respiratory Rate 22 20 80 H Blood Pressure 118/57 L 157/71 H 172/75 H Pulse Oximetry 95 95 12/25/17 03:00 12/25/17 04:00 12/25/17 05:00 Temperature 97.9 F Pulse Rate 98 H 94 H 101 H Respiratory Rate 20 22 68 H Blood Pressure 163/78 H 137/61 143/63 H Pulse Oximetry 100 97 100 12/25/17 06:00 12/25/17 07:00 12/25/17 08:00 Temperature 97.9 F Pulse Rate 110 H 94 H 94 H Respiratory Rate 57 H 34 H 27 H Blood Pressure 153/68 H 156/72 H 143/65 H Pulse Oximetry 100 100 100 12/25/17 08:45 12/25/17 09:00 12/25/17 09:15 Temperature Pulse Rate 91 H 89 Respiratory Rate 38 H 21 Blood Pressure 158/74 H 175/72 H 175/74 H Pulse Oximetry 99 100 12/25/17 09:30 12/25/17 09:45 11/20/18 10:00 Temperature Pulse Rate 98 H 92 H Respiratory Rate 28 H 39 H Blood Pressure 140/63 152/71 H 131/55 L Pulse Oximetry 100 100 12/25/17 10:15 12/25/17 10:30 12/25/17 10:45 Temperature Pulse Rate 100 H Respiratory Rate 13 Blood Pressure 141/67 H 152/73 H 156/70 H Pulse Oximetry 100 12/25/17 14:20 Temperature Pulse Rate Respiratory Rate 25 H Blood Pressure Pulse Oximetry Intake & Output 12/24/17 12/25/17 12/25/17 18:59 06:59 18:59 Intake Total 400 / 400 840 / 840 550 / 550 Output Total 700 / 700 420 / 420 1000 / 1000 Balance -300 / -300 420 / 420 -450 / -450 Weight 64.2 kg Intake: IV 400 / 400 200 / 200 550 / 550 Protonix Inj 80 MG In NS Inj 100 / 100 100 / 100 100 / 100 100 ML @ 10 mls/hr IV.CONT Q10H COLE Rx#:[id number] Merrem Inj 500 MG In NS Inj 100 200 / 200 100 / 100 100 / 100 ML @ 200 mls/hr IV.SIG Q8H COLE Rx#:[id number] Mycamine Inj 100 MG In NS Inj 100 / 100 100 / 100 100 ML @ 100 mls/hr IV.SIG Q24H COLE Rx#:[id number] fentaNYL 10 mcg/mL Premix Drip 250 / 250 2,500 mcg In 250 ml @ 50 MCG/HR 5 mls/hr IV.SIG TITRATE PRN Rx #:[id number] Oral 640 / 640 Output: Urine 0 / 0 Stool 500 / 500 200 / 200 Hemodialysis Amount 1000 / 1000 Wound Drainage 200 / 200 220 / 220 # 2 Right Abdomen 200 / 200 220 / 220 Other: Date of Last Bowel Movement 12/22/17 12/25/17 12/21/17 12:35 Tissue - Abdominal Gram Stain - Final 12/21/17 12:35 Tissue - Abdominal Wound Culture - Final Klebsiella oxytoca ESBL pos Lab - Hematology Results 12/24/17 12/24/17 12/25/17 05:10 12:20 05:30 WBC 18.0 H RBC 2.57 L Hgb 7.5 L 7.8 L 7.8 L Hct 22.7 L MCV 88.5 MCH 29.3 MCHC 33.1 RDW 17.0 Plt Count 403 D MPV 8.3 Prelim Diff (Auto) Slide review pending Neut % (Auto) 76.1 H Lymph % (Auto) 6.5 L [place] % (Auto) 10.6 H Eos % (Auto) 6.2 H Baso % (Auto) 0.6 Neut # (Auto) 13.7 H Lymph # (Auto) 1.2 [place] # (Auto) 1.9 H Eos # (Auto) 1.1 H Baso # (Auto) 0.1 WBC Differential Manual diff final Seg Neuts % (Manual) 76 H Band Neuts % (Manual) 1 Lymphocytes % (Manual) 5 L Monocytes % (Manual) 7 Eosinophils % (Manual) 8 H Metamyelocytes % (Man) 2 H Myelocytes % (Man) 1 H Abs Neuts (Manual) 14.4 H Differential Comment . Platelet Estimate Normal Platelet Morphology Normal Basophilic Stippling Faint H Lab - Chemistry Results 12/24/17 12/25/17 05:10 05:30 Sodium 145 145 Potassium 3.5 3.5 Chloride 105 108 H Carbon Dioxide 24.4 22.9 Anion Gap 16 H 14 BUN 59 H 70 H Creatinine 6.01 H 7.18 H Estimated GFR 12 L 10 L Random Glucose 73 L 76 Calcium 7.2 L* D 8.1 L D Prot Corrected Calcium 8.1 L Phosphorus 6.9 H D 7.6 H Total Protein 5.4 L Albumin 1.7 L 1.8 L Imaging: ITS Impressions Head MRI 12/03/17 00:00 CONCLUSION: 1. Minimal nonspecific periventricular white matter changes. 2. No restricted diffusion to suggest an acute ischemic event. 3. No evidence for significant ischemic changes. Chest CT 12/04/17 00:06 CONCLUSION: 1. Left greater than right pleural effusions and basilar atelectasis. 2. No hemorrhage or hematoma demonstrated. 3. Distended and fluid-filled esophagus. No wall thickening. Patient is status post gastrectomy. Nasogastric tube is at the GE junction. 4. Body wall edema/anasarca. Abdomen X-Ray 12/08/17 00:00 CONCLUSION: 1. 2 left-sided abdominal catheters. 2. Nonspecific bowel gas pattern. Abdomen/Pelvis CT 12/13/17 00:00 CONCLUSION: 1. New proximal small bowel dilatation. No discrete transition point. Contrast is seen in the distal small bowel. Findings may represent ileus or partial obstruction. 2. Postsurgical findings with surgical drains in the left upper quadrant. Free fluid is seen in the left upper quadrant. Loculated rounded 5 cm area of fluid with thin peripheral enhancement also noted just inferior to the surgical drains. 3. Prominent left lower lobe pulmonary consolidation and small left pleural effusion. GI Bleed Scan Nuclear Medicine 12/15/17 00:00 CONCLUSION: No active bleeding demonstrated. Chest X-Ray 12/22/17 00:00 CONCLUSION: 1. Persistent patchy infiltrate within the left lung base. 2. Multiple tubes and lines are stable. The nasogastric tube remains with its tip in the distal esophagus. New right subclavian central line has its tip in superior vena cava. No pneumothorax is noted. Small Bowel X-Ray 12/22/17 00:00 CONCLUSION: No evidence of bowel obstruction. There is mild diffuse small bowel wall thickening identified within the jejunum and ileum consistent with possible edema given the appearance on initial imaging. Drain overlying the left lower quadrant. Jejunostomy Tube Placement 12/24/17 00:00 CONCLUSION: 1. Uncomplicated tube injection as above. Physical Exam: GENERAL:awake and following commands. NAD HEENT: EOMI, ASHKAN. Mucosa is moist. NECK: Supple. LUNGS: Decreased breath sounds at bases HEART: Regular S1, S2. No murmur. ABDOMEN: Decreased bowel sounds. (+) tenderness. ZAINAB drain has serous drainage. EXTREMITIES: No clubbing or cyanosis. Both upper extremities has less edema. SKIN: No diffuse rash. NEUROLOGIC: awake, nonfocal. PSYCHIATRIC: calm LINES: No evidence of infection Assessment and Plan - Plan IMPRESSION: Candidemia following gastric perforation and gastric ischemia. Blood culture at [facility] in [place] on 11/26 had Starr glabrata. Repeat blood culture is negative. Status post abdominal surgery. ? abdominal wall infection at Gastric feeding tube site. Leukocytosis, persistent Fevers better Acute respiratory failure. Possible Aspiration. Acute kidney disease. - On HD Recent cardiac arrest. Abx associated diarrhea, bowel wall thickening c.diff neg. Clinically appears stable. RECOMMENDATIONS: Continue micafungin for candidemia. Continue meropenem for ESBL Klebsiella. Monitor white blood cell count. Spoke with mother
--- NOTE | 2017-12-25 17:16 | P.PNWCN ---
Wound Care Nurse Consult Description: Received pressure ulcer consult from Doctor Soler for sacrum/buttock/coccyx area Communicated with: SVETLANA Pollard [address] [place] [address] and Doctor Soler Recommendation: 1.Please cleanse wounds to R buttock/gluteal cleft and L buttock with normal saline only and pat dry. 2.Apply Santyl ointment delia thickness to wound bed with fluffed saline moistened gauze pad. Cover wounds with optifoam gentle 4x4 dressing available through misogram only and change daily. Please apply Cavilon spray to periwound before applying adhesive dressing to skin. 3. Please turn patient every 2 hours from L side to R side for comfort and offloading of sheridan prominences. 4. Limit layers under patient, do not use cotton underpads under patient use flat sheet turn and ultra sorb pad. Place patient on low airloss bed when available. Wound/Pressure Injury - Wound Right Buttocks/gluteal cleft Wound Staging: Stage IV Wound Type: Pressure Injury Is This a Chronic Wound: No Requested from Provider a Wound Care Consult: Yes Length (cm): 7 Width (cm): 6.1 Depth (cm): 0.7 (~0.7cm with eschar in wound bed) Wound Bed Appearance: Necrotic, Red, White, Yellow Wound Bed Appearance: Wound bed presents with ~20% facia in wound bed at the deepest area, ~30% eschar , ~20% yellow slough and ~30% red non granulation tissue Surrounding Tissue Appearance: [place] Surrounding Tissue Temperature: Cool Drainage Description: Serosanguinous Drainage Amount: Minimal Drainage Odor: No Odor Dressing Status: Open to Air Cleansing Solution: Saline Wound Margin Description: Wound margins are defined, but wound margins are uneven and irregular Left Buttocks Wound Staging: Stage III Wound Type: Pressure Injury Is This a Chronic Wound: No Length (cm): 4 Width (cm): 2 Depth (cm): 0.1 (~0.1cm) Wound Bed Appearance: [place], Yellow Wound Bed Appearance: Wound bed presents with ~50% pink tissue and ~50% yellow tissue Surrounding Tissue Appearance: [place] Surrounding Tissue Temperature: Cool Drainage Description: Serosanguinous Drainage Amount: Scant Drainage Odor: No Odor Dressing Status: Changed, Open to Air Cleansing Solution: Saline Wound Margin Description: Wound margins are well defined. - Additional Information Patient seen on [address] [place] [address] for pressure ulcer to sacrum/ coccyx and buttock. [facility] positioned on back for meal. Patient was turned with the total assistance of RN Keyla and abstract writer toward the L side to reveal wounds to the R buttock that extends into the gluteal cleft and L buttock. R buttock wound presents with ~20% facia in wound bed at the deepest area, ~30% eschar, ~20% yellow slough and ~30% red non granulation tissue. Wound is shallow, however with visible facia in wound bed, wound is a stage IV pressure injury. Wound does appear to have mixed etiology of moisture, pressure and friction, due the irregular, uneven wound margins. Wound presents with scant sero-sanguinous drainage and is without foul odor. L buttock wound presents with ~50% pink tissue and ~50% yellow tissue. Wound is a stage III, although it is shallow, the presence of yellow tissue in wound bed suggests this is full thickness, making it a stage III. Wound margins are even and well defined. Full wound description and measurements of both wounds are noted above. Patient is having loose watery stools and does have dignisheild fecal management system in place. Wound care recommendations are noted above.
[2017-12-25] MEDS: Haloperidol Inj 5 MG/ML Ampul IM PRN (20:19)
[2017-12-25 22:27] LABS: Albumin 1.9 g/dL (3.4-5.0); Calcium 7.7 mg/dL (8.5-10.1); Carbon Dioxide 23.9 meq/L (21.0-32.0); Phosphorus 4.2 mg/dL (2.5-4.9); Potassium 3.7 meq/L (3.5-5.1)
[2017-12-26] MEDS: Haloperidol Inj 5 MG/ML Ampul IM PRN (05:00)
[2017-12-26 06:11] LABS: Albumin 1.7 g/dL (3.4-5.0); Calcium 7.7 mg/dL (8.5-10.1); Carbon Dioxide 22.4 meq/L (21.0-32.0); Potassium 3.3 meq/L (3.5-5.1)
--- NOTE | 2017-12-26 11:08 | P.PNIM ---
Subjective Interval history: Patient is awake, alert and more appropriate today. MARIVEL RN. Currently getting dialysis. Physical Exam Vital signs: Vital Signs 12/25/17 11:15 12/25/17 11:30 12/25/17 11:45 Temperature Pulse Rate 90 74 89 Respiratory Rate 71 H 29 H 44 H Blood Pressure 153/69 H 155/68 H 147/68 H Pulse Oximetry 99 100 100 12/25/17 12:00 12/25/17 13:00 12/25/17 13:55 Temperature 99.9 F H Pulse Rate 73 92 H 102 H Respiratory Rate 57 H 63 H 34 H Blood Pressure 155/71 H 148/70 H 134/70 Pulse Oximetry 95 97 12/25/17 14:00 12/25/17 14:20 12/25/17 14:55 Temperature Pulse Rate 103 H 101 H Respiratory Rate 31 H 25 H 28 H Blood Pressure 149/71 H Pulse Oximetry 97 99 12/25/17 15:00 12/25/17 15:55 12/25/17 16:00 Temperature 99.0 F Pulse Rate 94 H 108 H 105 H Respiratory Rate 14 70 H 53 H Blood Pressure 141/72 H Pulse Oximetry 99 100 99 12/25/17 16:55 12/25/17 17:00 12/25/17 17:29 Temperature Pulse Rate 126 H 125 H 115 H Respiratory Rate 29 H 22 77 H Blood Pressure 192/111 H 137/62 Pulse Oximetry 99 98 99 12/25/17 17:55 12/25/17 18:00 12/25/17 18:55 Temperature Pulse Rate 87 104 H 118 H Respiratory Rate 87 H 54 H 76 H Blood Pressure 139/69 137/63 Pulse Oximetry 98 99 100 12/25/17 19:00 12/25/17 20:00 12/25/17 21:00 Temperature 98 F Pulse Rate 117 H 108 H 101 H Respiratory Rate 41 H 20 20 Blood Pressure 134/69 143/69 H Pulse Oximetry 99 98 96 12/25/17 22:00 12/25/17 23:00 12/26/17 00:55 Temperature 97.8 F Pulse Rate 111 H 108 H 95 H Respiratory Rate 20 20 22 Blood Pressure 130/61 122/64 131/63 Pulse Oximetry 95 97 96 12/26/17 01:00 12/26/17 02:00 12/26/17 03:00 Temperature Pulse Rate 99 H 101 H 115 H Respiratory Rate 72 H 22 22 Blood Pressure 135/67 135/67 126/57 L Pulse Oximetry 96 97 95 12/26/17 04:00 12/26/17 05:00 12/26/17 06:00 Temperature 97.8 F Pulse Rate 106 H 93 H 109 H Respiratory Rate 20 22 20 Blood Pressure 123/56 L 135/66 161/82 H Pulse Oximetry 94 L 95 Intake & Output 12/25/17 12/26/17 12/26/17 18:59 06:59 18:59 Intake Total 650 / 650 620 / 620 Output Total 1600 / 1600 1250 / 1250 Balance -950 / -950 -630 / -630 Weight 59.7 kg Intake: IV 650 / 650 200 / 200 Protonix Inj 80 MG In NS Inj 100 / 100 100 / 100 100 ML @ 10 mls/hr IV.CONT Q10H [facility] Rx#:[id number] Merrem Inj 500 MG In NS Inj 100 200 / 200 100 / 100 ML @ 200 mls/hr IV.SIG Q8H [facility] Rx#:[id number] Mycamine Inj 100 MG In NS Inj 100 / 100 100 ML @ 100 mls/hr IV.SIG Q24H [facility] Rx#:[id number] fentaNYL 10 mcg/mL Premix Drip 250 / 250 2,500 mcg In 250 ml @ 50 MCG/HR 5 mls/hr IV.SIG TITRATE PRN Rx #:[id number] Oral 420 / 420 Output: Urine 350 / 350 Stool 400 / 400 600 / 600 Hemodialysis Amount 1000 / 1000 Wound Drainage 200 / 200 300 / 300 # 2 Right Abdomen 200 / 200 300 / 300 Other: Date of Last Bowel Movement 12/25/17 12/26/17 # Bowel Movements 5 Narrative: GEN: Chronically ill-appearing, awake and interactive. NECK: Right IJ Vas-Cath CARDIO: Normal rate and regular rhythm. PULM: Mostly clear to auscultation bilaterally except for scattered rhonchi. GI: Abdomen soft. surgical wound open, Dressings dry and clean. NEURO: Following commands today. Interactive by head and few words. Moves 4 limbs spontaneously but only weakly. MSK: 2+ pedal edema bilaterally. - Urinary Catheter Management Indwelling Temp Sensing Catheter Cath placed during this visit: no Results - Labs CBC & Chem 7: 12/26/17 05:20 12/26/17 05:20 Laboratory Results - last 24 hr 12/23/17 12/25/17 12/26/17 11:00 21:50 05:20 Hgb 8.3 L Sodium 142 Potassium 3.7 Chloride 104 Carbon Dioxide 23.9 Anion Gap 14 BUN 39 H Creatinine 4.48 H Estimated GFR 17 L POC Glucose Random Glucose 69 L Calcium 7.7 L Phosphorus 4.2 D Albumin 1.9 L MTS Gel Crossmatch See Detail 12/26/17 12/26/17 05:20 09:12 Hgb Sodium 145 Potassium 3.3 L Chloride 105 Carbon Dioxide 22.4 Anion Gap 18 H BUN 42 H Creatinine 5.03 H Estimated GFR 15 L POC Glucose 78 Random Glucose 67 L Calcium 7.7 L Phosphorus 5.0 H Albumin 1.7 L MTS Gel Crossmatch Assessment and Plan - Plan 47-year-old male with complex hospital course. See last ICU progress note for detail. Essentially the patient was admitted and went into florid septic shock , cardiac arrest from acute pneumoperitoneum, gastric perforation and GI ischemia. He was emergently taken to the OR and ultimately transferred to [facility] where he underwent reexploration on 11/28, Dinh-en-y esophagojejunostomy , feeding jejunostomy placement, diagnostic EGD, primary fascial closure. Wound vac was applied to abdomen. Patient has since been transferred back to [place]. He has been extubated. He still has an open abdominal wound and has been having intermittent issues with delirium. 1. Metabolic Encephalopathy/delirium: Resolving. Move out of the ICU to help with orientation. 2. Acute Respiratory Failure/Left pleural effusion, left pigtail chest tube removed 12/18 Extubated 12/22 continue Bronchodilator, Mucolytic and Incentive spirometry. 3. Cardiac Arrest 11/23/17 PEA arrest due to shock secondary to acute gastric perforation and tension pneumoperitoneum -Currently hemodynamically stable. Off pressors. 4. 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 Ischemic Hepatopathy GIB with acute blood loss anemia EGD, enteroscopy 12/12/2017 unremarkable, colonoscopy 12/13/2017 unremarkable. Bleeding scan did not show any particular site of bleeding Had right upper quadrant ultrasound on 11/27/17 that demonstrated contracted gallbladder with sludge. No evidence of cholecystitis. Echogenicity in right liver related to focal fatty change or altered perfusion, patent vascularity. Protonix per GI. Appreciate general surgery following. Continue pure, thickened liquid diet. 5. JACLYN secondary to Ischemic ATN HD started 11/26 Nephrology following. Continue hemodialysis per nephrology. 6. Candidemia following gastric perforation and gastric ischemia. Blood culture at [facility] in [place] on 11/26 had Starr glabrata. Repeat blood culture is negative. Infectious disease following.Continue micafungin for candidemia. Continue meropenem for ESBL E. coli Monitor white blood cell count. 7. Anemia requiring transfusion/Thrombocytopenia resolved Bilateral Upper extremity DVTs, U/s 11/26 BUE - thrombus R axillary, brachial and basilic veins and thrombus in left axillary and left brachial veins. Hematology consult [facility] and patient was treated with heparin. Continue subcu heparin here. Hemoglobin stable today. Continue to monitor. 8. Pressure ulcer to sacrum/ coccyx and buttock. Wound care nursing following. Continue with dressing change and frequent turning. Full code. Discussed Condition With: Family present at bedside. Discharge Planning: Stable for transfer to floor.
[2017-12-26] MEDS: hydrALAZINE 50 MG Tablet PO SCH ×3 (11:46→17:27)
[2017-12-26] MEDS: Pantoprazole Inj 80 MG in Sodium Chlor 0.9% Inj 100 ML IV.CONT SCH (11:46)
[2017-12-26] MEDS: Calcium Acetate 667 MG Capsule PO SCH ×3 (11:47→17:27)
[2017-12-26] MEDS: Collagenase Oint 30 GM Tube TOPICAL SCH (12:47)
--- NOTE | 2017-12-26 13:30 | P.PNGS ---
Subjective Interval history: Resting in bed Just finished up HD treatment Doing okay with meals Physical Exam Vital signs: Vital Signs 12/25/17 13:55 12/25/17 14:00 12/25/17 14:20 Temperature Pulse Rate 102 H 103 H Respiratory Rate 34 H 31 H 25 H Blood Pressure 134/70 Pulse Oximetry 97 97 12/25/17 14:55 12/25/17 15:00 12/25/17 15:55 Temperature Pulse Rate 101 H 94 H 108 H Respiratory Rate 28 H 14 70 H Blood Pressure 149/71 H 141/72 H Pulse Oximetry 99 99 100 12/25/17 16:00 12/25/17 16:55 12/25/17 17:00 Temperature 99.0 F Pulse Rate 105 H 126 H 125 H Respiratory Rate 53 H 29 H 22 Blood Pressure 192/111 H Pulse Oximetry 99 99 98 12/25/17 17:29 12/25/17 17:55 12/25/17 18:00 Temperature Pulse Rate 115 H 87 104 H Respiratory Rate 77 H 87 H 54 H Blood Pressure 137/62 139/69 Pulse Oximetry 99 98 99 12/25/17 18:55 12/25/17 19:00 12/25/17 20:00 Temperature 98 F Pulse Rate 118 H 117 H 108 H Respiratory Rate 76 H 41 H 20 Blood Pressure 137/63 134/69 Pulse Oximetry 100 99 98 12/25/17 21:00 12/25/17 22:00 12/25/17 23:00 Temperature Pulse Rate 101 H 111 H 108 H Respiratory Rate 20 20 20 Blood Pressure 143/69 H 130/61 122/64 Pulse Oximetry 96 95 97 12/26/17 00:55 12/26/17 01:00 12/26/17 02:00 Temperature 97.8 F Pulse Rate 95 H 99 H 101 H Respiratory Rate 22 72 H 22 Blood Pressure 131/63 135/67 135/67 Pulse Oximetry 96 96 97 12/26/17 03:00 12/26/17 04:00 12/26/17 05:00 Temperature 97.8 F Pulse Rate 115 H 106 H 93 H Respiratory Rate 22 20 22 Blood Pressure 126/57 L 123/56 L 135/66 Pulse Oximetry 95 94 L 95 12/26/17 06:00 12/26/17 06:55 12/26/17 07:00 Temperature Pulse Rate 109 H 119 H 103 H Respiratory Rate 20 80 H 87 H Blood Pressure 161/82 H 130/56 L Pulse Oximetry 12/26/17 07:55 12/26/17 08:00 12/26/17 08:55 Temperature 99.8 F H Pulse Rate 112 H 106 H 110 H Respiratory Rate 85 H 101 H 61 H Blood Pressure 159/72 H 146/65 H Pulse Oximetry 12/26/17 09:00 12/26/17 09:22 12/26/17 09:42 Temperature Pulse Rate 101 H 122 H 122 H Respiratory Rate 83 H 84 H 97 H Blood Pressure 136/63 124/58 L Pulse Oximetry 12/26/17 09:57 12/26/17 10:00 12/26/17 10:12 Temperature Pulse Rate 110 H 101 H 113 H Respiratory Rate 105 H 88 H 113 H Blood Pressure 145/65 H 137/62 Pulse Oximetry 12/26/17 10:27 12/26/17 10:42 12/26/17 10:57 Temperature Pulse Rate 114 H 107 H 108 H Respiratory Rate 81 H 104 H 88 H Blood Pressure 131/60 153/72 H 152/79 H Pulse Oximetry 12/26/17 11:00 12/26/17 11:12 12/26/17 11:27 Temperature Pulse Rate 111 H 107 H 103 H Respiratory Rate 85 H 83 H 69 H Blood Pressure 149/69 H 178/79 H Pulse Oximetry 12/26/17 11:42 12/26/17 11:57 12/26/17 12:00 Temperature 99.0 F Pulse Rate 113 H 122 H 125 H Respiratory Rate 45 H 39 H 65 H Blood Pressure 155/75 H 125/55 L Pulse Oximetry Intake & Output 12/25/17 12/26/17 12/26/17 18:59 06:59 18:59 Intake Total 650 / 650 620 / 620 200 / 200 Output Total 1600 / 1600 1250 / 1250 1999 / 1999 Balance -950 / -950 -630 / -630 -1800 / -1800 Weight 59.7 kg Intake: IV 650 / 650 200 / 200 200 / 200 Protonix Inj 80 MG In NS Inj 100 / 100 100 / 100 100 / 100 100 ML @ 10 mls/hr IV.CONT Q10H [facility] Rx#:[id number] Merrem Inj 500 MG In NS Inj 100 200 / 200 100 / 100 100 / 100 ML @ 200 mls/hr IV.SIG Q8H [facility] Rx#:[id number] Mycamine Inj 100 MG In NS Inj 100 / 100 100 ML @ 100 mls/hr IV.SIG Q24H [facility] Rx#:[id number] fentaNYL 10 mcg/mL Premix Drip 250 / 250 2,500 mcg In 250 ml @ 50 MCG/HR 5 mls/hr IV.SIG TITRATE PRN Rx #:[id number] Oral 420 / 420 Output: Urine 350 / 350 Stool 400 / 400 600 / 600 Hemodialysis Amount 1000 / 1000 1999 / 1999 Wound Drainage 200 / 200 300 / 300 # 2 Right Abdomen 200 / 200 300 / 300 Other: Date of Last Bowel Movement 12/25/17 12/26/17 12/25/17 # Bowel Movements 5 Narrative: Alert and awake Abd: all dressings removed; midline incision almost healed with nice graduated tissue; J tube in place; ZAINAB with place with serous drainage BUE edema much improved BLE edema - Urinary Catheter Management Indwelling Temp Sensing Catheter Cath placed during this visit: no Results - Labs 12/26/17 05:20 12/26/17 05:20 Laboratory Results - last 24 hr 12/23/17 12/25/17 12/26/17 11:00 21:50 05:20 Hgb 8.3 L Sodium 142 Potassium 3.7 Chloride 104 Carbon Dioxide 23.9 Anion Gap 14 BUN 39 H Creatinine 4.48 H Estimated GFR 17 L POC Glucose Random Glucose 69 L Calcium 7.7 L Phosphorus 4.2 D Albumin 1.9 L MTS Gel Crossmatch See Detail 12/26/17 12/26/17 05:20 09:12 Hgb Sodium 145 Potassium 3.3 L Chloride 105 Carbon Dioxide 22.4 Anion Gap 18 H BUN 42 H Creatinine 5.03 H Estimated GFR 15 L POC Glucose 78 Random Glucose 67 L Calcium 7.7 L Phosphorus 5.0 H Albumin 1.7 L MTS Gel Crossmatch - Imaging Imaging: ITS Impressions Head MRI 12/03/17 00:00 CONCLUSION: 1. Minimal nonspecific periventricular white matter changes. 2. No restricted diffusion to suggest an acute ischemic event. 3. No evidence for significant ischemic changes. Chest CT 12/04/17 00:06 CONCLUSION: 1. Left greater than right pleural effusions and basilar atelectasis. 2. No hemorrhage or hematoma demonstrated. 3. Distended and fluid-filled esophagus. No wall thickening. Patient is status post gastrectomy. Nasogastric tube is at the GE junction. 4. Body wall edema/anasarca. Abdomen X-Ray 12/08/17 00:00 CONCLUSION: 1. 2 left-sided abdominal catheters. 2. Nonspecific bowel gas pattern. Abdomen/Pelvis CT 12/13/17 00:00 CONCLUSION: 1. New proximal small bowel dilatation. No discrete transition point. Contrast is seen in the distal small bowel. Findings may represent ileus or partial obstruction. 2. Postsurgical findings with surgical drains in the left upper quadrant. Free fluid is seen in the left upper quadrant. Loculated rounded 5 cm area of fluid with thin peripheral enhancement also noted just inferior to the surgical drains. 3. Prominent left lower lobe pulmonary consolidation and small left pleural effusion. GI Bleed Scan Nuclear Medicine 12/15/17 00:00 CONCLUSION: No active bleeding demonstrated. Chest X-Ray 12/22/17 00:00 CONCLUSION: 1. Persistent patchy infiltrate within the left lung base. 2. Multiple tubes and lines are stable. The nasogastric tube remains with its tip in the distal esophagus. New right subclavian central line has its tip in superior vena cava. No pneumothorax is noted. Small Bowel X-Ray 12/22/17 00:00 CONCLUSION: No evidence of bowel obstruction. There is mild diffuse small bowel wall thickening identified within the jejunum and ileum consistent with possible edema given the appearance on initial imaging. Drain overlying the left lower quadrant. Jejunostomy Tube Placement 12/24/17 00:00 CONCLUSION: 1. Uncomplicated tube injection as above. Assessment and Plan - Assessment (1) Gastric perforation Code(s): K25.5 - Chronic or unspecified gastric ulcer with perforation Status : Resolved Plan: 47yo male s/p Exlap and gastrectomy for gastric perforation, s/p esophagojejunostomy at [facility] -Extubated; stable on RA -[facility] soft/nectar thickened liquids + Ensure-- will need to eat small more frequent meals -Dietary consulted for post-gastrectomy meal plan -Keep J tube in place -HD per Nephrology -Needs aggressive PT -Will see again on Thursday 12/28 Nothing to add today The exam, history, and the medical decision-making described in the above note were completed with the assistance of the mid-level provider. I reviewed and agree with the findings presented. I attest that I had a [id number] encounter with the patient on the same day, and personally performed and documented my assessment and findings in the medical record.
--- NOTE | 2017-12-26 13:53 | P.PNNP ---
Subjective Interval history: Seen while working with PT. Hemodialysis this morning tolerated well. <Princess Martel - Last Filed: 12/26/17 13:46> Physical Exam Vital signs: Vital Signs 12/25/17 13:55 12/25/17 14:00 12/25/17 14:20 Temperature Pulse Rate 102 H 103 H Respiratory Rate 34 H 31 H 25 H Blood Pressure 134/70 Pulse Oximetry 97 97 12/25/17 14:55 12/25/17 15:00 12/25/17 15:55 Temperature Pulse Rate 101 H 94 H 108 H Respiratory Rate 28 H 14 70 H Blood Pressure 149/71 H 141/72 H Pulse Oximetry 99 99 100 12/25/17 16:00 12/25/17 16:55 12/25/17 17:00 Temperature 99.0 F Pulse Rate 105 H 126 H 125 H Respiratory Rate 53 H 29 H 22 Blood Pressure 192/111 H Pulse Oximetry 99 99 98 12/25/17 17:29 12/25/17 17:55 12/25/17 18:00 Temperature Pulse Rate 115 H 87 104 H Respiratory Rate 77 H 87 H 54 H Blood Pressure 137/62 139/69 Pulse Oximetry 99 98 99 12/25/17 18:55 12/25/17 19:00 12/25/17 20:00 Temperature 98 F Pulse Rate 118 H 117 H 108 H Respiratory Rate 76 H 41 H 20 Blood Pressure 137/63 134/69 Pulse Oximetry 100 99 98 12/25/17 21:00 12/25/17 22:00 12/25/17 23:00 Temperature Pulse Rate 101 H 111 H 108 H Respiratory Rate 20 20 20 Blood Pressure 143/69 H 130/61 122/64 Pulse Oximetry 96 95 97 12/26/17 00:55 12/26/17 01:00 12/26/17 02:00 Temperature 97.8 F Pulse Rate 95 H 99 H 101 H Respiratory Rate 22 72 H 22 Blood Pressure 131/63 135/67 135/67 Pulse Oximetry 96 96 97 12/26/17 03:00 12/26/17 04:00 12/26/17 05:00 Temperature 97.8 F Pulse Rate 115 H 106 H 93 H Respiratory Rate 22 20 22 Blood Pressure 126/57 L 123/56 L 135/66 Pulse Oximetry 95 94 L 95 12/26/17 06:00 12/26/17 06:55 12/26/17 07:00 Temperature Pulse Rate 109 H 119 H 103 H Respiratory Rate 20 80 H 87 H Blood Pressure 161/82 H 130/56 L Pulse Oximetry 12/26/17 07:55 12/26/17 08:00 12/26/17 08:55 Temperature 99.8 F H Pulse Rate 112 H 106 H 110 H Respiratory Rate 85 H 101 H 61 H Blood Pressure 159/72 H 146/65 H Pulse Oximetry 12/26/17 09:00 12/26/17 09:22 12/26/17 09:42 Temperature Pulse Rate 101 H 122 H 122 H Respiratory Rate 83 H 84 H 97 H Blood Pressure 136/63 124/58 L Pulse Oximetry 12/26/17 09:57 12/26/17 10:00 12/26/17 10:12 Temperature Pulse Rate 110 H 101 H 113 H Respiratory Rate 105 H 88 H 113 H Blood Pressure 145/65 H 137/62 Pulse Oximetry 12/26/17 10:27 12/26/17 10:42 12/26/17 10:57 Temperature Pulse Rate 114 H 107 H 108 H Respiratory Rate 81 H 104 H 88 H Blood Pressure 131/60 153/72 H 152/79 H Pulse Oximetry 12/26/17 11:00 12/26/17 11:12 12/26/17 11:27 Temperature Pulse Rate 111 H 107 H 103 H Respiratory Rate 85 H 83 H 69 H Blood Pressure 149/69 H 178/79 H Pulse Oximetry 12/26/17 11:42 12/26/17 11:57 12/26/17 12:00 Temperature 99.0 F Pulse Rate 113 H 122 H 125 H Respiratory Rate 45 H 39 H 65 H Blood Pressure 155/75 H 125/55 L Pulse Oximetry Intake & Output 12/25/17 12/26/17 12/26/17 18:59 06:59 18:59 Intake Total 650 / 650 620 / 620 200 / 200 Output Total 1600 / 1600 1250 / 1250 1999 / 1999 Balance -950 / -950 -630 / -630 -1800 / -1800 Weight 59.7 kg Intake: IV 650 / 650 200 / 200 200 / 200 Protonix Inj 80 MG In NS Inj 100 / 100 100 / 100 100 / 100 100 ML @ 10 mls/hr IV.CONT Q10H [facility] Rx#:[id number] Merrem Inj 500 MG In NS Inj 100 200 / 200 100 / 100 100 / 100 ML @ 200 mls/hr IV.SIG Q8H [facility] Rx#:[id number] Mycamine Inj 100 MG In NS Inj 100 / 100 100 ML @ 100 mls/hr IV.SIG Q24H [facility] Rx#:[id number] fentaNYL 10 mcg/mL Premix Drip 250 / 250 2,500 mcg In 250 ml @ 50 MCG/HR 5 mls/hr IV.SIG TITRATE PRN Rx #:[id number] Oral 420 / 420 Output: Urine 350 / 350 Stool 400 / 400 600 / 600 Hemodialysis Amount 1000 / 1000 1999 / 1999 Wound Drainage 200 / 200 300 / 300 # 2 Right Abdomen 200 / 200 300 / 300 Other: Date of Last Bowel Movement 12/25/17 12/26/17 12/25/17 # Bowel Movements 5 Narrative: GENERAL: Alert, follows commands. SKIN: Warm and dry. NECK: Supple, trachea midline. No JVD. CARDIOVASCULAR: Regular rate and rhythm without murmurs, gallops, or rubs. RESPIRATORY: Breath sounds diminished bilaterally. No accessory muscle use. GASTROINTESTINAL: Abdomen soft, non-tender, nondistended. Abdominal binder on. MUSCULOSKELETAL: No cyanosis, bilateral 1+ lower extremity edema. BACK: Nontender without obvious deformity. No CVA tenderness. - Urinary Catheter Management Indwelling Temp Sensing Catheter Cath placed during this visit: no <Princess Martel - Last Filed: 12/26/17 13:46> Vital signs: Vital Signs 01/02/18 00:00 01/02/18 08:00 01/02/18 12:00 Temperature 98.1 F 97.9 F 97.6 F Pulse Rate 96 H 101 H 115 H Respiratory Rate 15 19 18 Blood Pressure 107/55 L 114/55 L 137/76 Pulse Oximetry 99 99 100 01/02/18 14:00 01/02/18 15:00 Temperature 97.6 F 97.9 F Pulse Rate 102 H 104 H Respiratory Rate 19 19 Blood Pressure 140/66 135/68 Pulse Oximetry 98 100 Intake & Output 01/02/18 01/02/18 01/03/18 06:59 18:59 06:59 Intake Total 2830 / 2830 4522 / 4522 Balance 2830 / 2830 4522 / 4522 Weight 59.1 kg Intake: IV 1000 / 1000 800 / 800 D5W + KCL 20 mEq Inj 1,000 ML @ 1000 / 1000 700 / 700 75 mls/hr IV.CONT .[id number] [facility] Rx#:[id number] INVanz Inj 500 MG In NS Inj 100 100 / 100 ML @ 200 mls/hr IV.SIG Q24H [facility] Rx#:[id number] Oral 480 / 480 3722 / 3722 Tube Feeding 950 / 950 Water Bolus Amount 400 / 400 Other: # Voids 3 Date of Last Bowel Movement 01/02/18 01/02/18 # Bowel Movements 3 # Oral Regurgitations 1 - Urinary Catheter Management Indwelling Temp Sensing Catheter Cath placed during this visit: no <Jolie Connor - Last Filed: 01/02/18 20:13> Assessment and Plan - Assessment (1) JACLYN (acute kidney injury) Code(s): N17.9 - Acute kidney failure, unspecified Status: Acute Plan: Continue dialysis. Monitor for renal recovery. Avoid nephrotoxic agents. Seen during dialysis. Hemodialysis yesterday tolerated well, UF of 1 liter Hemodialysis today as it is holiday tomorrow. K bath adjusted for hypokalemia. (2) Acute respiratory failure Code(s): J96.00 - Acute respiratory failure, unspecified whether with hypoxia or hypercapnia Status: Acute Qualifiers: Respiratory failure complication: hypoxia Qualified Code(s): J96.01 - Acute respiratory failure with hypoxia Plan: Resolved, Extubated, on room air (3) Gastric perforation Code(s): K25.5 - Chronic or unspecified gastric ulcer with perforation Status : Resolved Plan: s/p surgery. Subtotal gastrectomy in [place]. In [facility] he had: Dinh-en-y esophagojejunostomy, feeding jejunostomy placement, diagnostic EGD, primary fascial closure. Date of procedure: 11/28/17 Negative bleeding scan - follow with GI, surgery. No immediate surgical plans at this point (4) Candidemia Code(s): B37.7 - Candidal sepsis Status: Acute Plan: On Micafungin. Dose medications appropriate to renal function. (5) DVT (deep venous thrombosis) Code(s): I82.409 - Acute embolism and thrombosis of unspecified deep veins of unspecified lower extremity Status: Acute Plan: DVT of bilateral upper extremities. (6) Anemia Code(s): D64.9 - Anemia, unspecified Status: Acute Plan: HGB dropped to 8.3 Could be multifactorial. <Princess Martel - Last Filed: 12/26/17 13:46> - Assessment (1) JACLYN (acute kidney injury) Code(s): N17.9 - Acute kidney failure, unspecified Status: Acute Plan: Patient seen and examined, agree with above. HD done yesterday and will be again due to Holiday tomorrow. (2) Acute respiratory failure Code(s): J96.00 - Acute respiratory failure, unspecified whether with hypoxia or hypercapnia Status: Acute Qualifiers: Respiratory failure complication: hypoxia Qualified Code(s): J96.01 - Acute respiratory failure with hypoxia (3) Gastric perforation Code(s): K25.5 - Chronic or unspecified gastric ulcer with perforation Status : Resolved (4) Candidemia Code(s): B37.7 - Candidal sepsis Status: Acute (5) DVT (deep venous thrombosis) Code(s): I82.409 - Acute embolism and thrombosis of unspecified deep veins of unspecified lower extremity Status: Acute (6) Anemia Code(s): D64.9 - Anemia, unspecified Status: Acute <Jolie Connor - Last Filed: 01/02/18 20:13>
--- NOTE | 2017-12-26 14:03 | P.DIET ---
Nutritional Evaluation Type of nutrition evaluation: follow-up Nutrition consult regarding: Tube Feeding, TPN/PPN Nutrition screening: [facility] Screening comments: 12/[address] [facility] for post gastrectomy diet Subjective Subjective Comments: Minimal po intake noted. Objective - Diagnosis Gastroenteritis - Objective % IBW: 92 (IBW = 190#) Body Weight Used for Calculations: Actual (79.4) Energy Needs - Lower Range (kCal/kg): 28 Energy Needs - Upper Range (kCal/kg): 32 Lower Limit kCal/kg (kCals): 2,223 Upper Limit kCal/kg (kCals): 2,541 Lower Limit Protein Factor (Grams per Kg): 1.2 Upper Limit Protein Factor (Grams per Kg): 1.5 Lower Protein Needs (Protein): 95 Upper Protein Needs (Protein): 119 Dietitian Reviewed in Medical Record: Curent medications, Intake & Output, Labs , Medical history Diet Order: Mechanical Soft, nectar thickened liquids with Ensure tid Wound Care Note: see WOCN dated 12/25 Objective Comments: see recent extensive hx in H&P Assessment Assessment: Pt extubated, TF on hold and diet advanced. Pt currently dialysis dependent. Pt is unable to meet needs with po intake alone at this time. He has had a long hospitalization with significant weight loss and BMI = 16.9. Wt changes noted. CBW = 59.7 kg (admission wt was 93.7 kg). A Post gastrectomy diet usually consists of 6 small meals per day, only 4 ozs of fluid at meals, other fluids 1 hour before or after meals. Food needs to be well chewed. Of note: the hospital does not provide an option for 6 small meals a day. Nursing would need to order snacks and take them off the tray, put them in the refrigerator OR Ensure can be given between meals, but again nursing needs to control that. 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 Pt would benefit from Avelino supplement bid to aid in wound healing. Recommendations: 1. Restart TF: Nepro @ 55ml/hr goal 2. Continuous TF until pt can consistently eat >50% of a meal, then transition to night time TF until BMI >18 3. Change Ensure to Ensure Enlive and give between meals. 4. No fluids on meal trays 5. Please order Avelino supplement bid. It will have to mixed on the floor if given po. Dietitian to Monitor: Lab values, Intake & Output, Diet tolerance, Tube feeding tolerance, Weight change, PO Intake, Wound/skin status, Swallow recommendations , Medical course
[2017-12-26] MEDS: Metoprolol Tartrate 25 MG Tablet PO SCH (17:27)
[2017-12-26] MEDS ORDERED: Potassium Chloride 10 MEQ ER Capsule NG/OG ONE (19:30)
[2017-12-27] MEDS: Pantoprazole Inj 80 MG in Sodium Chlor 0.9% Inj 100 ML IV.CONT SCH ×4 (00:07→16:42)
[2017-12-27 04:29] LABS: Hematocrit 22.8 % (39.0-51.0); Hemoglobin 7.8 gm/dL (13.0-17.0); Mean Corpuscular Hemoglobin 30.2 pg (27.0-34.0); Mean Corpuscular Volume 88.8 fL (80.0-100.0); Mean Platelet Volume 7.8 fL (7.0-11.0); Platelet Count 365 th/mm3 (150-450); Red Blood Count 2.57 mil/mm3 (4.50-5.90); Red Cell Distribution Width 16.1 % (11.6-17.2); White Blood Count 15.4 th/mm3 (4.0-11.0)
[2017-12-27 04:54] LABS: Calcium 7.7 mg/dL (8.5-10.1); Carbon Dioxide 26.6 meq/L (21.0-32.0)
[2017-12-27 04:56] LABS: Potassium 2.8 meq/L (3.5-5.1)
[2017-12-27] MEDS: hydrALAZINE 50 MG Tablet PO SCH ×3 (10:01→17:21)
[2017-12-27] MEDS: Calcium Acetate 667 MG Capsule PO SCH ×3 (10:01→17:14)
[2017-12-27] MEDS: Metoprolol Tartrate 25 MG Tablet PO SCH ×2 (10:01→21:35)
[2017-12-27] MEDS: Collagenase Oint 30 GM Tube TOPICAL SCH (10:02)
--- NOTE | 2017-12-27 10:07 | P.PNIM ---
Subjective Interval history: Discussed with RN. He has been no acute changes overnight. Heart rate remains stable since the addition of metoprolol. Patient has no complaints. Physical Exam Vital signs: Vital Signs 12/26/17 10:12 12/26/17 10:27 12/26/17 10:42 Temperature Pulse Rate 113 H 114 H 107 H Respiratory Rate 113 H 81 H 104 H Blood Pressure 137/62 131/60 153/72 H Pulse Oximetry 12/26/17 10:57 12/26/17 11:00 12/26/17 11:12 Temperature Pulse Rate 108 H 111 H 107 H Respiratory Rate 88 H 85 H 83 H Blood Pressure 152/79 H 149/69 H Pulse Oximetry 12/26/17 11:27 12/26/17 11:42 12/26/17 11:57 Temperature Pulse Rate 103 H 113 H 122 H Respiratory Rate 69 H 45 H 39 H Blood Pressure 178/79 H 155/75 H 125/55 L Pulse Oximetry 12/26/17 12:00 12/26/17 12:12 12/26/17 12:27 Temperature 99.0 F Pulse Rate 125 H 104 H 106 H Respiratory Rate 65 H 21 31 H Blood Pressure 145/71 H 136/69 Pulse Oximetry 12/26/17 12:42 12/26/17 13:00 12/26/17 14:00 Temperature Pulse Rate 109 H 123 H 122 H Respiratory Rate 30 H 58 H 42 H Blood Pressure 130/65 164/84 H 129/80 Pulse Oximetry 99 12/26/17 15:00 12/26/17 16:00 12/26/17 17:00 Temperature 99.6 F Pulse Rate 138 H 137 H 120 H Respiratory Rate 90 H 29 H 45 H Blood Pressure 134/83 144/105 H Pulse Oximetry 12/26/17 17:10 12/26/17 18:00 12/26/17 19:00 Temperature 99.4 F Pulse Rate 104 H 114 H 100 H Respiratory Rate 101 H 54 H 100 H Blood Pressure 136/70 130/68 130/68 Pulse Oximetry 100 100 99 12/26/17 20:00 12/26/17 21:00 12/26/17 22:00 Temperature Pulse Rate 100 H 98 H 100 H Respiratory Rate 97 H 55 H 99 H Blood Pressure 132/67 139/68 136/68 Pulse Oximetry 99 98 97 12/26/17 23:00 12/27/17 00:00 12/27/17 01:00 Temperature 99.3 F Pulse Rate 100 H 98 H 96 H Respiratory Rate 44 H 80 H 79 H Blood Pressure 144/70 H 142/69 H 143/67 H Pulse Oximetry 97 97 97 12/27/17 02:00 12/27/17 03:00 12/27/17 04:00 Temperature 98.0 F Pulse Rate 100 H 98 H 98 H Respiratory Rate 51 H 39 H 77 H Blood Pressure 145/67 H 148/69 H 145/72 H Pulse Oximetry 95 97 97 12/27/17 05:00 12/27/17 06:00 12/27/17 07:00 Temperature Pulse Rate 95 H 87 87 Respiratory Rate 37 H 55 H 42 H Blood Pressure 145/76 H 155/79 H 153/81 H Pulse Oximetry 97 96 97 12/27/17 08:00 12/27/17 09:00 Temperature 97.8 F Pulse Rate 121 H 96 H Respiratory Rate 54 H 38 H Blood Pressure 137/60 150/77 H Pulse Oximetry 97 97 Intake & Output 12/26/17 12/27/17 12/27/17 18:59 06:59 18:59 Intake Total 880 / 880 440 / 440 Output Total 2850 / 2850 900 / 900 Balance -1970 / -1970 -460 / -460 Weight 59 kg Intake: IV 400 / 400 200 / 200 Protonix Inj 80 MG In NS Inj 100 / 100 100 / 100 100 ML @ 10 mls/hr IV.CONT Q10H COLE Rx#:[id number] Merrem Inj 500 MG In NS Inj 100 200 / 200 100 / 100 ML @ 200 mls/hr IV.SIG Q8H COLE Rx#:[id number] Mycamine Inj 100 MG In NS Inj 100 / 100 100 ML @ 100 mls/hr IV.SIG Q24H COLE Rx#:[id number] Oral 480 / 480 240 / 240 Output: Urine 0 / 0 300 / 300 Stool 700 / 700 400 / 400 Hemodialysis Amount 1999 / 1999 Wound Drainage 150 / 150 200 / 200 # 2 Right Abdomen 150 / 150 200 / 200 Other: Date of Last Bowel Movement 12/26/17 12/26/17 12/27/17 # Bowel Movements 3 Narrative: GEN: Chronically ill-appearing, awake and interactive. NECK: Right IJ Vas-Cath CARDIO: Normal rate and regular rhythm. PULM: Mostly clear to auscultation bilaterally except for scattered rhonchi. GI: Abdomen soft. surgical wound open, Dressings dry and clean. NEURO: Follow commands. Limited verbal interaction. Moves 4 limbs spontaneously but only weakly. MSK: 2+ pedal edema bilaterally. - Urinary Catheter Management Indwelling Temp Sensing Catheter Cath placed during this visit: no Results - Labs CBC & Chem 7: 12/27/17 04:15 12/27/17 04:15 Laboratory Results - last 24 hr 12/27/17 12/27/17 12/27/17 04:15 04:15 04:15 WBC 15.4 H RBC 2.57 L Hgb 7.8 L Hct 22.8 L MCV 88.8 MCH 30.2 MCHC 34.0 RDW 16.1 Plt Count 365 MPV 7.8 Sodium 142 Potassium 2.8 L* Chloride 104 Carbon Dioxide 26.6 Anion Gap 11 BUN 31 H Creatinine 4.38 H Estimated GFR 18 L Random Glucose 88 Calcium 7.7 L Magnesium 2.0 Assessment and Plan - Plan 47-year-old male with complex hospital course. See last ICU progress note for detail. Essentially the patient was admitted and went into florid septic shock , cardiac arrest from acute pneumoperitoneum, gastric perforation and GI ischemia. He was emergently taken to the OR and ultimately transferred to [facility] where he underwent reexploration on 11/28, Dinh-en-y esophagojejunostomy , feeding jejunostomy placement, diagnostic EGD, primary fascial closure. Wound vac was applied to abdomen. Patient has since been transferred back to [facility]. He has been extubated. He still has an open abdominal wound and has been having intermittent issues with delirium. 1. Metabolic Encephalopathy/delirium: Resolving. Okay to move out of the ICU to help with orientation. 2. Acute Respiratory Failure/Left pleural effusion, left pigtail chest tube removed 12/18 Extubated 12/22 continue Bronchodilator, Mucolytic and Incentive spirometry. 3. Cardiac Arrest 11/23/17 PEA arrest due to shock secondary to acute gastric perforation and tension pneumoperitoneum -Currently hemodynamically stable. Off pressors. Has been having mild sinus tachycardia. He was started on metoprolol. Heart rate controlled. 4. 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 Ischemic Hepatopathy GIB with acute blood loss anemia EGD, enteroscopy 12/12/2017 unremarkable, colonoscopy 12/13/2017 unremarkable. Bleeding scan did not show any particular site of bleeding Had right upper quadrant ultrasound on 11/27/17 that demonstrated contracted gallbladder with sludge. No evidence of cholecystitis. Echogenicity in right liver related to focal fatty change or altered perfusion, patent vascularity. Protonix per GI. Appreciate general surgery following. Continue pure, thickened liquid diet. 5. JACLYN secondary to Ischemic ATN HD started 11/26 Nephrology following. Continue hemodialysis per nephrology. 6. Candidemia following gastric perforation and gastric ischemia. Blood culture at [facility] in [place] on 11/26 had Starr glabrata. Repeat blood culture is negative. Infectious disease following.Continue micafungin for candidemia. Continue meropenem for ESBL E. coli Monitor white blood cell count. 7. Anemia requiring transfusion/Thrombocytopenia resolved Bilateral Upper extremity DVTs, U/s 11/26 BUE - thrombus R axillary, brachial and basilic veins and thrombus in left axillary and left brachial veins. Hematology consult was obtained at [facility] and patient was treated with heparin. Continue subcu heparin here. Hemoglobin stable today. Continue to monitor. 8. Pressure ulcer to sacrum/ coccyx and buttock. Wound care nursing following. Continue with dressing change and frequent turning. Full code. Discharge Planning: Okay for transfer to Med/Surg today. Discussed with RN.
--- NOTE | 2017-12-27 11:37 | P.PNGI ---
Subjective Interval history: Patient sitting up in bed Post breakfast meal less than 50% intake noted GI notified due to accidental dislodgment of J-tube. Abdominal dressing and binder covering site, no bleeding or drainage noted <Karen Oliveira - Last Filed: 12/27/17 11:31> Physical Exam Vital signs: Vital Signs 12/26/17 11:42 12/26/17 11:57 12/26/17 12:00 Temperature 99.0 F Pulse Rate 113 H 122 H 125 H Respiratory Rate 45 H 39 H 65 H Blood Pressure 155/75 H 125/55 L Pulse Oximetry 12/26/17 12:12 12/26/17 12:27 12/26/17 12:42 Temperature Pulse Rate 104 H 106 H 109 H Respiratory Rate 21 31 H 30 H Blood Pressure 145/71 H 136/69 130/65 Pulse Oximetry 12/26/17 13:00 12/26/17 14:00 12/26/17 15:00 Temperature Pulse Rate 123 H 122 H 138 H Respiratory Rate 58 H 42 H 90 H Blood Pressure 164/84 H 129/80 134/83 Pulse Oximetry 99 12/26/17 16:00 12/26/17 17:00 12/26/17 17:10 Temperature 99.6 F Pulse Rate 137 H 120 H 104 H Respiratory Rate 29 H 45 H 101 H Blood Pressure 144/105 H 136/70 Pulse Oximetry 100 12/26/17 18:00 12/26/17 19:00 12/26/17 20:00 Temperature 99.4 F Pulse Rate 114 H 100 H 100 H Respiratory Rate 54 H 100 H 97 H Blood Pressure 130/68 130/68 132/67 Pulse Oximetry 100 99 99 12/26/17 21:00 12/26/17 22:00 12/26/17 23:00 Temperature Pulse Rate 98 H 100 H 100 H Respiratory Rate 55 H 99 H 44 H Blood Pressure 139/68 136/68 144/70 H Pulse Oximetry 98 97 97 12/27/17 00:00 12/27/17 01:00 12/27/17 02:00 Temperature 99.3 F Pulse Rate 98 H 96 H 100 H Respiratory Rate 80 H 79 H 51 H Blood Pressure 142/69 H 143/67 H 145/67 H Pulse Oximetry 97 97 95 12/27/17 03:00 12/27/17 04:00 12/27/17 05:00 Temperature 98.0 F Pulse Rate 98 H 98 H 95 H Respiratory Rate 39 H 77 H 37 H Blood Pressure 148/69 H 145/72 H 145/76 H Pulse Oximetry 97 97 97 12/27/17 06:00 12/27/17 07:00 12/27/17 08:00 Temperature 97.8 F Pulse Rate 87 87 121 H Respiratory Rate 55 H 42 H 54 H Blood Pressure 155/79 H 153/81 H 137/60 Pulse Oximetry 96 97 97 12/27/17 09:00 Temperature Pulse Rate 96 H Respiratory Rate 38 H Blood Pressure 150/77 H Pulse Oximetry 97 Intake & Output 12/26/17 12/27/17 12/27/17 18:59 06:59 18:59 Intake Total 880 / 880 440 / 440 Output Total 2850 / 2850 900 / 900 Balance -1970 / -1970 -460 / -460 Weight 59 kg Intake: IV 400 / 400 200 / 200 Protonix Inj 80 MG In NS Inj 100 / 100 100 / 100 100 ML @ 10 mls/hr IV.CONT Q10H COLE Rx#:[id number] Merrem Inj 500 MG In NS Inj 100 200 / 200 100 / 100 ML @ 200 mls/hr IV.SIG Q8H COLE Rx#:[id number] Mycamine Inj 100 MG In NS Inj 100 / 100 100 ML @ 100 mls/hr IV.SIG Q24H COLE Rx#:[id number] Oral 480 / 480 240 / 240 Output: Urine 0 / 0 300 / 300 Stool 700 / 700 400 / 400 Hemodialysis Amount 1999 / 1999 Wound Drainage 150 / 150 200 / 200 # 2 Right Abdomen 150 / 150 200 / 200 Other: Date of Last Bowel Movement 12/26/17 12/26/17 12/27/17 # Bowel Movements 3 - Constitutional no acute distress, chronically ill appearing - Routine HEENT Exam Head: Present: normocephalic - Routine Respiratory Exam Present: CTA bilaterally. Absent: accessory muscle use - Routine Abdominal Exam Present: soft, normoactive bowel sounds, surgical scars, wound, drain. Absent: tenderness, distended, guarding, firm Comments: J-tube inadvertently dislodged while patient positioning in bed as per bedside RN - Routine Skin Exam Present: dry, warm - Routine Neurological Exam Present: alert - Routine Psychiatric Exam Present: cooperative - Urinary Catheter Management Indwelling Temp Sensing Catheter Cath placed during this visit: no <Karen Oliveira - Last Filed: 12/27/17 11:31> Vital signs: Vital Signs 12/27/17 10:00 12/27/17 11:00 12/27/17 11:55 Temperature Pulse Rate 86 96 H 94 H Respiratory Rate 37 H 79 H 53 H Blood Pressure 142/70 H 158/73 H Pulse Oximetry 97 97 96 12/27/17 12:00 12/27/17 13:00 12/27/17 14:44 Temperature 98.8 F 98.8 F Pulse Rate 97 H 95 H 110 H Respiratory Rate 72 H 48 H 16 Blood Pressure 160/72 H 160/72 H 126/66 Pulse Oximetry 95 96 97 12/27/17 16:00 12/27/17 20:00 12/28/17 00:00 Temperature 98.9 F 98.6 F 98.4 F Pulse Rate 97 H 115 H 100 H Respiratory Rate 18 20 20 Blood Pressure 138/81 127/63 138/66 Pulse Oximetry 98 97 97 12/28/17 08:00 Temperature 97.3 F L Pulse Rate 89 Respiratory Rate 16 Blood Pressure 120/59 L Pulse Oximetry 97 Intake & Output 12/27/17 12/28/17 12/28/17 18:59 06:59 18:59 Intake Total 400 / 400 300 / 300 100 / 100 Output Total 300 / 300 350 / 350 Balance 100 / 100 -50 / -50 100 / 100 Weight 58.2 kg Intake: IV 400 / 400 300 / 300 100 / 100 Protonix Inj 80 MG In NS Inj 200 / 200 100 / 100 100 ML @ 10 mls/hr IV.CONT Q10H COLE Rx#:[id number] Flexbumin 25% Inj 100 ML @ 60 100 / 100 mls/hr IV.SIG WITH DIALYSIS PRN Rx#:[id number] Merrem Inj 500 MG In NS Inj 100 100 / 100 100 / 100 100 / 100 ML @ 200 mls/hr IV.SIG Q8H COLE Rx#:[id number] Mycamine Inj 100 MG In NS Inj 100 / 100 100 ML @ 100 mls/hr IV.SIG Q24H COLE Rx#:[id number] Output: Urine 0 / 0 Wound Drainage 300 / 300 350 / 350 # 2 Right Abdomen 300 / 300 350 / 350 Other: Date of Last Bowel Movement 12/27/17 - Urinary Catheter Management Indwelling Temp Sensing Catheter Cath placed during this visit: no <Jessica Reyes - Last Filed: 12/28/17 09:44> Results - Labs CBC & Chem 7: 12/27/17 04:15 12/27/17 04:15 Laboratory Results - last 24 hr 12/27/17 12/27/17 12/27/17 04:15 04:15 04:15 WBC 15.4 H RBC 2.57 L Hgb 7.8 L Hct 22.8 L MCV 88.8 MCH 30.2 MCHC 34.0 RDW 16.1 Plt Count 365 MPV 7.8 Sodium 142 Potassium 2.8 L* Chloride 104 Carbon Dioxide 26.6 Anion Gap 11 BUN 31 H Creatinine 4.38 H Estimated GFR 18 L Random Glucose 88 Calcium 7.7 L Magnesium 2.0 <Karen Oliveira - Last Filed: 12/27/17 11:31> - Labs CBC & Chem 7: 12/28/17 06:36 12/28/17 06:36 Laboratory Results - last 24 hr 12/28/17 12/28/17 06:36 06:36 WBC 16.6 H RBC 2.77 L Hgb 8.1 L Hct 24.6 L MCV 88.8 MCH 29.3 MCHC 33.0 RDW 16.1 Plt Count 368 MPV 8.3 Sodium 146 H Potassium 2.5 L* Chloride 109 H Carbon Dioxide 24.4 Anion Gap 13 BUN 42 H Creatinine 5.41 H Estimated GFR 14 L Random Glucose 82 Calcium 8.0 L <Jessica Reyes - Last Filed: 12/28/17 09:44> Assessment and Plan (1) Anemia Status: Acute Code(s): D64.9 - Anemia, unspecified (2) Jejunostomy tube fell out Status: Acute Code(s): T85.528A - Displacement of other gastrointestinal prosthetic devices, implants and grafts, initial encounter - Plan 12/27/2017 Jejunostomy tube out Called to evaluate patient as jejunostomy tube inadvertently dislodged as patient repositioned in bed. Dressing in place, no bleeding or drainage noted from site. As per dietary recommendation, Nepro at 55 mL's per hour goal rate until patient can consistently eat greater than 50% of her meal. Plan -Diet regular -Tube feeding-held as per displacement of jejunostomy tube -IR consulted for 12/28/2017 to evaluate patient for replacement jejunostomy tube -Supportive care -Further recommendations to follow This patient has been seen by myself and Dr. Reyes and this note is written on his behalf - Attending Attestation Dr. Reyes <Karen Oliveira - Last Filed: 12/27/17 11:31> (1) Anemia Status: Acute Code(s): D64.9 - Anemia, unspecified (2) Jejunostomy tube fell out Status: Acute Code(s): T85.528A - Displacement of other gastrointestinal prosthetic devices, implants and grafts, initial encounter - Attending Attestation As above, tube previously placed by IR , will reconsult for placement of new one. Will sign off for now, please notify us if needed again. <Jessica Reyes - Last Filed: 12/28/17 09:44>
--- NOTE | 2017-12-27 12:06 | P.PNID ---
Subjective Remarks: Patient is awake. More verbal. No complaints. Afebrile. Wound culture from ZAINAB site has ESBL Klebsiella. Abdominal drainage catheter has straw colored drainage. Reintubated 12/04 Antibiotics: Micafungin Meropenem Lines: [facility] Past Medical History: Reviewed Allergies/Adverse Reactions: Allergies No Known Allergies Allergy (Verified 11/22/17 02:38) Objective Vital Signs 12/26/17 12:12 12/26/17 12:27 12/26/17 12:42 Temperature Pulse Rate 104 H 106 H 109 H Respiratory Rate 21 31 H 30 H Blood Pressure 145/71 H 136/69 130/65 Pulse Oximetry 12/26/17 13:00 12/26/17 14:00 12/26/17 15:00 Temperature Pulse Rate 123 H 122 H 138 H Respiratory Rate 58 H 42 H 90 H Blood Pressure 164/84 H 129/80 134/83 Pulse Oximetry 99 12/26/17 16:00 12/26/17 17:00 12/26/17 17:10 Temperature 99.6 F Pulse Rate 137 H 120 H 104 H Respiratory Rate 29 H 45 H 101 H Blood Pressure 144/105 H 136/70 Pulse Oximetry 100 12/26/17 18:00 12/26/17 19:00 12/26/17 20:00 Temperature 99.4 F Pulse Rate 114 H 100 H 100 H Respiratory Rate 54 H 100 H 97 H Blood Pressure 130/68 130/68 132/67 Pulse Oximetry 100 99 99 12/26/17 21:00 12/26/17 22:00 12/26/17 23:00 Temperature Pulse Rate 98 H 100 H 100 H Respiratory Rate 55 H 99 H 44 H Blood Pressure 139/68 136/68 144/70 H Pulse Oximetry 98 97 97 12/27/17 00:00 12/27/17 01:00 12/27/17 02:00 Temperature 99.3 F Pulse Rate 98 H 96 H 100 H Respiratory Rate 80 H 79 H 51 H Blood Pressure 142/69 H 143/67 H 145/67 H Pulse Oximetry 97 97 95 12/27/17 03:00 12/27/17 04:00 12/27/17 05:00 Temperature 98.0 F Pulse Rate 98 H 98 H 95 H Respiratory Rate 39 H 77 H 37 H Blood Pressure 148/69 H 145/72 H 145/76 H Pulse Oximetry 97 97 97 12/27/17 06:00 12/27/17 07:00 12/27/17 08:00 Temperature 97.8 F Pulse Rate 87 87 121 H Respiratory Rate 55 H 42 H 54 H Blood Pressure 155/79 H 153/81 H 137/60 Pulse Oximetry 96 97 97 12/27/17 09:00 Temperature Pulse Rate 96 H Respiratory Rate 38 H Blood Pressure 150/77 H Pulse Oximetry 97 Intake & Output 12/26/17 12/27/17 12/27/17 18:59 06:59 18:59 Intake Total 880 / 880 440 / 440 Output Total 2850 / 2850 900 / 900 Balance -1970 / -1970 -460 / -460 Weight 59 kg Intake: IV 400 / 400 200 / 200 Protonix Inj 80 MG In NS Inj 100 / 100 100 / 100 100 ML @ 10 mls/hr IV.CONT Q10H COLE Rx#:[id number] Merrem Inj 500 MG In NS Inj 100 200 / 200 100 / 100 ML @ 200 mls/hr IV.SIG Q8H COLE Rx#:[id number] Mycamine Inj 100 MG In NS Inj 100 / 100 100 ML @ 100 mls/hr IV.SIG Q24H COLE Rx#:[id number] Oral 480 / 480 240 / 240 Output: Urine 0 / 0 300 / 300 Stool 700 / 700 400 / 400 Hemodialysis Amount 1999 Wound Drainage 150 / 150 200 / 200 # 2 Right Abdomen 150 / 150 200 / 200 Other: Date of Last Bowel Movement 12/26/17 12/26/17 12/27/17 # Bowel Movements 3 Lab - Hematology Results 12/26/17 12/27/17 05:20 04:15 WBC 15.4 H RBC 2.57 L Hgb 8.3 L 7.8 L Hct 22.8 L MCV 88.8 MCH 30.2 MCHC 34.0 RDW 16.1 Plt Count 365 MPV 7.8 Lab - Chemistry Results 12/25/17 12/26/17 12/26/17 21:50 05:20 09:12 Sodium 142 145 Potassium 3.7 3.3 L Chloride 104 105 Carbon Dioxide 23.9 22.4 Anion Gap 14 18 H BUN 39 H 42 H Creatinine 4.48 H 5.03 H Estimated GFR 17 L 15 L POC Glucose 78 Random Glucose 69 L 67 L Calcium 7.7 L 7.7 L Phosphorus 4.2 D 5.0 H Magnesium Albumin 1.9 L 1.7 L 12/27/17 12/27/17 04:15 04:15 Sodium 142 Potassium 2.8 L* Chloride 104 Carbon Dioxide 26.6 Anion Gap 11 BUN 31 H Creatinine 4.38 H Estimated GFR 18 L POC Glucose Random Glucose 88 Calcium 7.7 L Phosphorus Magnesium 2.0 Albumin Imaging: ITS Impressions Head MRI 12/03/17 00:00 CONCLUSION: 1. Minimal nonspecific periventricular white matter changes. 2. No restricted diffusion to suggest an acute ischemic event. 3. No evidence for significant ischemic changes. Chest CT 12/04/17 00:06 CONCLUSION: 1. Left greater than right pleural effusions and basilar atelectasis. 2. No hemorrhage or hematoma demonstrated. 3. Distended and fluid-filled esophagus. No wall thickening. Patient is status post gastrectomy. Nasogastric tube is at the GE junction. 4. Body wall edema/anasarca. Abdomen X-Ray 12/08/17 00:00 CONCLUSION: 1. 2 left-sided abdominal catheters. 2. Nonspecific bowel gas pattern. Abdomen/Pelvis CT 12/13/17 00:00 CONCLUSION: 1. New proximal small bowel dilatation. No discrete transition point. Contrast is seen in the distal small bowel. Findings may represent ileus or partial obstruction. 2. Postsurgical findings with surgical drains in the left upper quadrant. Free fluid is seen in the left upper quadrant. Loculated rounded 5 cm area of fluid with thin peripheral enhancement also noted just inferior to the surgical drains. 3. Prominent left lower lobe pulmonary consolidation and small left pleural effusion. GI Bleed Scan Nuclear Medicine 12/15/17 00:00 CONCLUSION: No active bleeding demonstrated. Chest X-Ray 12/22/17 00:00 CONCLUSION: 1. Persistent patchy infiltrate within the left lung base. 2. Multiple tubes and lines are stable. The nasogastric tube remains with its tip in the distal esophagus. New right subclavian central line has its tip in superior vena cava. No pneumothorax is noted. Small Bowel X-Ray 12/22/17 00:00 CONCLUSION: No evidence of bowel obstruction. There is mild diffuse small bowel wall thickening identified within the jejunum and ileum consistent with possible edema given the appearance on initial imaging. Drain overlying the left lower quadrant. Jejunostomy Tube Placement 11/19/18 00:00 CONCLUSION: 1. Uncomplicated tube injection as above. Physical Exam: GENERAL: Awake and alert. HEENT: EOMI, ASHKAN. Mucosa is moist. NECK: Supple. LUNGS: Decreased breath sounds at bases HEART: Regular S1, S2. No murmur. ABDOMEN: Decreased bowel sounds. ZAINAB drain has serous drainage. EXTREMITIES: No clubbing or cyanosis. No edema.. SKIN: No diffuse rash. NEUROLOGIC: Nonfocal. PSYCHIATRIC: calm LINES: No evidence of infection Assessment and Plan - Plan IMPRESSION: Candidemia following gastric perforation and gastric ischemia. Blood culture at [facility] in [place] on 11/26 had Starr glabrata. Repeat blood culture is negative. Status post abdominal surgery. ? abdominal wall infection at Gastric feeding tube site. ESBL E. coli. Leukocytosis, persistent Fevers better Acute respiratory failure. Extubated. Possible Aspiration. Acute kidney disease. - On HD Recent cardiac arrest. Abx associated diarrhea, bowel wall thickening c.diff neg. Clinically appears stable. RECOMMENDATIONS: Continue micafungin for candidemia. Continue meropenem for ESBL Klebsiella. Monitor white blood cell count. Discussed with SVETLANA.
--- NOTE | 2017-12-27 20:44 | P.PNNP ---
Subjective Interval history: Patient seen in the afternoon, no SOB, sitting on the chair. Physical Exam Vital signs: Vital Signs 12/26/17 21:00 12/26/17 22:00 12/26/17 23:00 Temperature Pulse Rate 98 H 100 H 100 H Respiratory Rate 55 H 99 H 44 H Blood Pressure 139/68 136/68 144/70 H Pulse Oximetry 98 97 97 12/27/17 00:00 12/27/17 01:00 12/27/17 02:00 Temperature 99.3 F Pulse Rate 98 H 96 H 100 H Respiratory Rate 80 H 79 H 51 H Blood Pressure 142/69 H 143/67 H 145/67 H Pulse Oximetry 97 97 95 12/27/17 03:00 12/27/17 04:00 12/27/17 05:00 Temperature 98.0 F Pulse Rate 98 H 98 H 95 H Respiratory Rate 39 H 77 H 37 H Blood Pressure 148/69 H 145/72 H 145/76 H Pulse Oximetry 97 97 97 12/27/17 06:00 12/27/17 07:00 12/27/17 08:00 Temperature 97.8 F Pulse Rate 87 87 121 H Respiratory Rate 55 H 42 H 54 H Blood Pressure 155/79 H 153/81 H 137/60 Pulse Oximetry 96 97 97 12/27/17 09:00 12/27/17 10:00 12/27/17 11:00 Temperature Pulse Rate 96 H 86 96 H Respiratory Rate 38 H 37 H 79 H Blood Pressure 150/77 H 142/70 H Pulse Oximetry 97 97 97 12/27/17 11:55 12/27/17 12:00 12/27/17 13:00 Temperature 98.8 F Pulse Rate 94 H 97 H 95 H Respiratory Rate 53 H 72 H 48 H Blood Pressure 158/73 H 160/72 H 160/72 H Pulse Oximetry 96 95 96 12/27/17 14:44 12/27/17 16:00 Temperature 98.8 F 98.9 F Pulse Rate 110 H 97 H Respiratory Rate 16 18 Blood Pressure 126/66 138/81 Pulse Oximetry 97 98 Intake & Output 12/27/17 12/27/17 12/28/17 06:59 18:59 06:59 Intake Total 540 / 540 400 / 400 Output Total 900 / 900 300 / 300 Balance -360 / -360 100 / 100 Weight 59 kg Intake: IV 300 / 300 400 / 400 Protonix Inj 80 MG In NS Inj 100 / 100 200 / 200 100 ML @ 10 mls/hr IV.CONT Q10H COLE Rx#:[id number] Merrem Inj 500 MG In NS Inj 100 200 / 200 100 / 100 ML @ 200 mls/hr IV.SIG Q8H COLE Rx#:[id number] Mycamine Inj 100 MG In NS Inj 100 / 100 100 ML @ 100 mls/hr IV.SIG Q24H COLE Rx#:[id number] Oral 240 / 240 Output: Urine 300 / 300 Stool 400 / 400 Wound Drainage 200 / 200 300 / 300 # 2 Right Abdomen 200 / 200 300 / 300 Other: Date of Last Bowel Movement 12/26/17 12/27/17 Narrative: GEN: Chronically ill-appearing, awake and interactive. NECK: Right IJ Vas-Cath CARDIO: Normal rate and regular rhythm. PULM: Mostly clear to auscultation bilaterally except for scattered rhonchi. GI: Abdomen soft. surgical wound open, Dressings dry and clean. NEURO: Follow commands. Limited verbal interaction. Moves 4 limbs spontaneously but only weakly. MSK: 2+ pedal edema bilaterally. - Urinary Catheter Management Indwelling Temp Sensing Catheter Cath placed during this visit: no Assessment and Plan - Assessment (1) JACLYN (acute kidney injury) Code(s): N17.9 - Acute kidney failure, unspecified Status: Acute Plan: Continue dialysis. Monitor for renal recovery. Avoid nephrotoxic agents. Seen during dialysis. Hemodialysis yesterday tolerated well, UF of 1 liter Hemodialysis done yesterday. Watch for renal recovery. (2) Acute respiratory failure Code(s): J96.00 - Acute respiratory failure, unspecified whether with hypoxia or hypercapnia Status: Acute Qualifiers: Respiratory failure complication: hypoxia Qualified Code(s): J96.01 - Acute respiratory failure with hypoxia Plan: Resolved, Extubated, on room air (3) Gastric perforation Code(s): K25.5 - Chronic or unspecified gastric ulcer with perforation Status : Resolved Plan: s/p surgery. Subtotal gastrectomy in [place]. In [facility] he had: Dinh-en-y esophagojejunostomy, feeding jejunostomy placement, diagnostic EGD, primary fascial closure. Date of procedure: 11/28/17 Negative bleeding scan - follow with GI, surgery. No immediate surgical plans at this point (4) Candidemia Code(s): B37.7 - Candidal sepsis Status: Acute Plan: On Micafungin. Dose medications appropriate to renal function. (5) DVT (deep venous thrombosis) Code(s): I82.409 - Acute embolism and thrombosis of unspecified deep veins of unspecified lower extremity Status: Acute Plan: DVT of bilateral upper extremities. (6) Anemia Code(s): D64.9 - Anemia, unspecified Status: Acute Plan: HGB dropped to 8.3 Could be multifactorial.
[2017-12-28] MEDS: Pantoprazole Inj 80 MG in Sodium Chlor 0.9% Inj 100 ML IV.CONT SCH ×4 (00:36→22:38)
[2017-12-28 07:10] LABS: Hematocrit 24.6 % (39.0-51.0); Hemoglobin 8.1 gm/dL (13.0-17.0); Mean Corpuscular Hemoglobin 29.3 pg (27.0-34.0); Mean Corpuscular Volume 88.8 fL (80.0-100.0); Mean Platelet Volume 8.3 fL (7.0-11.0); Platelet Count 368 th/mm3 (150-450); Red Blood Count 2.77 mil/mm3 (4.50-5.90); Red Cell Distribution Width 16.1 % (11.6-17.2); White Blood Count 16.6 th/mm3 (4.0-11.0)
[2017-12-28 07:48] LABS: Carbon Dioxide 24.4 meq/L (21.0-32.0)
[2017-12-28 07:58] LABS: Potassium 2.5 meq/L (3.5-5.1)
[2017-12-28] MEDS ORDERED: fentaNYL Citrate Inj 250 MCG/5 ML Ampul ONE (08:53)
[2017-12-28] MEDS ORDERED: Iohexol 350 MG/ML 50 ML Vial (for Rad Diag) J-TUBE ONE (10:08)
--- NOTE | 2017-12-28 10:19 | IR ---
EXAM DATE: 12/28/2017 10:07 AM EST AGE/SEX: 47 years / Male INDICATIONS: Patient presents with dislodged Jejunal feeding tube in need of replacement. CLINICAL DATA: This is the patient's initial encounter. Patient reports that signs and symptoms have been present for 1 day and indicates a pain score of 0/10. MEDICAL/SURGICAL HISTORY: . Gastric perforation, Ischemic Hepatitis, Gastric Necrosis, Thromboc ytopenia, DVT, Anemia, Leukocytosis, Candidemia, Cardiac arrest, Acute Kidney Injury, Aspiration Pneu monia, Acute Respiratory Failure . Total Gastrectomy, Dinh-en-Y Esophagojejunal Anastomosis. COMPARISON: No prior exams available for comparison. FLUORO TIME (min): 2.57 IMAGE SERIES: 2 SEDATION TIME (min): 20 CONTRAST (cc): 10 Omnipaque (iohexol) 350 MEDICATION(S): 1.5 mg midazolam (Versed) IV 100 mcg fentanyl (Sublimaze) IV DEVICE(S): 16 Sri Lankan Jejunal Tube . . PROCEDURE: 1. Fluoroscopically guided gastrojejunostomy tube placement through existing tract. 2. Conscious sedation with continuous EKG and oximetry monitoring. The risks, benefits and alternatives to the procedure were explained and verbal and written consent w as obtained. The site was prepped in sterile fashion. Full sterile technique was used, including ca p, mask, sterile gloves and gown and a large sterile sheet. Hand hygiene and 2% chlorhexidine and/or betadine/alcohol prep was utilized per protocol for cutaneous antisepsis. The skin and subcutaneous tissues were infiltrated with local anesthetic solution. A 4 Sri Lankan catheter and Glidewire were advanced through the existing jejunostomy tract into an efface ment jejunal loop and position confirmed with contrast. A new 16 Sri Lankan jejunostomy catheter was then advanced over the wire and placed into position. Jejunostomy balloon was inflated with approximately 2 cc of saline. The position was confirmed with an injection of contrast. Conscious sedation was performed with the prescribed dosages and duration as above in the presence of an independent trained radiology nurse to assist in the monitoring of the patient. EKG and oximetry remained stable throughout the procedure. The patient tolerated the procedure well and there were n o complications. The patient was sent to post anesthesia recovery in stable condition. CONCLUSION: 1. Uncomplicated placement of a new 16 Sri Lankan jejunostomy catheter through existing tract. Electronically signed by: Ward Rubalcava MD 12/28/2017 10:17 AM EST
[2017-12-28] MEDS: Calcium Acetate 667 MG Capsule PO SCH ×3 (10:39→18:07)
[2017-12-28] MEDS: hydrALAZINE 50 MG Tablet PO SCH ×3 (10:40→18:07)
[2017-12-28] MEDS: Metoprolol Tartrate 25 MG Tablet PO SCH ×2 (10:40→22:37)
[2017-12-28] MEDS: Collagenase Oint 30 GM Tube TOPICAL SCH (10:42)
--- NOTE | 2017-12-28 11:39 | P.PNGS ---
Subjective Interval history: Just returned back from J tube exchange No complaints; still low appetite Physical Exam Vital signs: Vital Signs 12/27/17 11:55 12/27/17 12:00 12/27/17 13:00 Temperature 98.8 F Pulse Rate 94 H 97 H 95 H Respiratory Rate 53 H 72 H 48 H Blood Pressure 158/73 H 160/72 H 160/72 H Pulse Oximetry 96 95 96 12/27/17 14:44 12/27/17 16:00 12/27/17 20:00 Temperature 98.8 F 98.9 F 98.6 F Pulse Rate 110 H 97 H 115 H Respiratory Rate 16 18 20 Blood Pressure 126/66 138/81 127/63 Pulse Oximetry 97 98 97 12/28/17 00:00 12/28/17 08:00 12/28/17 09:40 Temperature 98.4 F 97.3 F L 98.7 F Pulse Rate 100 H 89 96 H Respiratory Rate 20 16 18 Blood Pressure 138/66 120/59 L 136/77 Pulse Oximetry 97 97 96 12/28/17 10:01 Temperature Pulse Rate 93 H Respiratory Rate 16 Blood Pressure 131/74 Pulse Oximetry 96 Intake & Output 12/27/17 12/28/17 12/28/17 18:59 06:59 18:59 Intake Total 400 / 400 300 / 300 100 / 100 Output Total 300 / 300 350 / 350 Balance 100 / 100 -50 / -50 100 / 100 Weight 58.2 kg Intake: IV 400 / 400 300 / 300 100 / 100 Protonix Inj 80 MG In NS Inj 200 / 200 100 / 100 100 ML @ 10 mls/hr IV.CONT Q10H COLE Rx#:[id number] Flexbumin 25% Inj 100 ML @ 60 100 / 100 mls/hr IV.SIG WITH DIALYSIS PRN Rx#:[id number] Merrem Inj 500 MG In NS Inj 100 100 / 100 100 / 100 100 / 100 ML @ 200 mls/hr IV.SIG Q8H COLE Rx#:[id number] Mycamine Inj 100 MG In NS Inj 100 / 100 100 ML @ 100 mls/hr IV.SIG Q24H COLE Rx#:[id number] Output: Urine 0 / 0 Wound Drainage 300 / 300 350 / 350 # 2 Right Abdomen 300 / 300 350 / 350 Other: Date of Last Bowel Movement 12/27/17 Narrative: Alert and awake Abd: soft; midline incision very small now --healing nicely; ZAINAB removed at bedside; New J tube in place Generalized edema continues to improve - Urinary Catheter Management Indwelling Temp Sensing Catheter Cath placed during this visit: no Results - Labs 12/31/17 04:40 12/31/17 04:40 Laboratory Results - last 24 hr 12/28/17 12/28/17 06:36 06:36 WBC 16.6 H RBC 2.77 L Hgb 8.1 L Hct 24.6 L MCV 88.8 MCH 29.3 MCHC 33.0 RDW 16.1 Plt Count 368 MPV 8.3 Sodium 146 H Potassium 2.5 L* Chloride 109 H Carbon Dioxide 24.4 Anion Gap 13 BUN 42 H Creatinine 5.41 H Estimated GFR 14 L Random Glucose 82 Calcium 8.0 L - Imaging Imaging: ITS Impressions Head MRI 12/03/17 00:00 CONCLUSION: 1. Minimal nonspecific periventricular white matter changes. 2. No restricted diffusion to suggest an acute ischemic event. 3. No evidence for significant ischemic changes. Chest CT 12/04/17 00:06 CONCLUSION: 1. Left greater than right pleural effusions and basilar atelectasis. 2. No hemorrhage or hematoma demonstrated. 3. Distended and fluid-filled esophagus. No wall thickening. Patient is status post gastrectomy. Nasogastric tube is at the GE junction. 4. Body wall edema/anasarca. Abdomen X-Ray 12/08/17 00:00 CONCLUSION: 1. 2 left-sided abdominal catheters. 2. Nonspecific bowel gas pattern. Abdomen/Pelvis CT 12/13/17 00:00 CONCLUSION: 1. New proximal small bowel dilatation. No discrete transition point. Contrast is seen in the distal small bowel. Findings may represent ileus or partial obstruction. 2. Postsurgical findings with surgical drains in the left upper quadrant. Free fluid is seen in the left upper quadrant. Loculated rounded 5 cm area of fluid with thin peripheral enhancement also noted just inferior to the surgical drains. 3. Prominent left lower lobe pulmonary consolidation and small left pleural effusion. GI Bleed Scan Nuclear Medicine 12/15/17 00:00 CONCLUSION: No active bleeding demonstrated. Chest X-Ray 12/22/17 00:00 CONCLUSION: 1. Persistent patchy infiltrate within the left lung base. 2. Multiple tubes and lines are stable. The nasogastric tube remains with its tip in the distal esophagus. New right subclavian central line has its tip in superior vena cava. No pneumothorax is noted. Small Bowel X-Ray 12/22/17 00:00 CONCLUSION: No evidence of bowel obstruction. There is mild diffuse small bowel wall thickening identified within the jejunum and ileum consistent with possible edema given the appearance on initial imaging. Drain overlying the left lower quadrant. Jejunostomy Tube Placement 12/28/17 00:00 CONCLUSION: 1. Uncomplicated placement of a new 16 Turkish jejunostomy catheter through existing tract. Assessment and Plan - Assessment (1) Gastric perforation Code(s): K25.5 - Chronic or unspecified gastric ulcer with perforation Status : Resolved Plan: 47yo male s/p Exlap and gastrectomy for gastric perforation, s/p esophagojejunostomy at [facility] soft/nectar thickened liquids + Ensure-- will need to eat small more frequent meals -Dietary consulted for post-gastrectomy meal plan -Keep J tube in place ---replaced today -HD per Nephrology -Needs aggressive PT -GS will see PRN over the weekend; please call with any questions - Plan I personally evaluated the patient in room 1730. Patient was awake and alert and talkative and interactive. He had no complaints of pain. His abdominal exam was benign. His midline incision is nearly completely healed. The drain which had been in since his return from [facility] was only draining yellow serous fluid and it was removed. A dry dressing was placed. His J-tube site appeared benign. His extremities were significantly less edematous. The exam, history, and the medical decision-making described in the above note were completed with the assistance of the mid-level provider. I reviewed and agree with the findings presented. I attest that I had a [id number] encounter with the patient on the same day, and personally performed and documented my assessment and findings in the medical record.
--- NOTE | 2017-12-28 11:54 | P.PNNP ---
Subjective Interval history: Patient seen in AM, no complaint, no SOB. Physical Exam Vital signs: Vital Signs 12/27/17 11:55 12/27/17 12:00 12/27/17 13:00 Temperature 98.8 F Pulse Rate 94 H 97 H 95 H Respiratory Rate 53 H 72 H 48 H Blood Pressure 158/73 H 160/72 H 160/72 H Pulse Oximetry 96 95 96 12/27/17 14:44 12/27/17 16:00 12/27/17 20:00 Temperature 98.8 F 98.9 F 98.6 F Pulse Rate 110 H 97 H 115 H Respiratory Rate 16 18 20 Blood Pressure 126/66 138/81 127/63 Pulse Oximetry 97 98 97 12/28/17 00:00 12/28/17 08:00 12/28/17 09:40 Temperature 98.4 F 97.3 F L 98.7 F Pulse Rate 100 H 89 96 H Respiratory Rate 20 16 18 Blood Pressure 138/66 120/59 L 136/77 Pulse Oximetry 97 97 96 12/28/17 10:01 Temperature Pulse Rate 93 H Respiratory Rate 16 Blood Pressure 131/74 Pulse Oximetry 96 Intake & Output 12/27/17 12/28/17 12/28/17 18:59 06:59 18:59 Intake Total 400 / 400 300 / 300 100 / 100 Output Total 300 / 300 350 / 350 Balance 100 / 100 -50 / -50 100 / 100 Weight 58.2 kg Intake: IV 400 / 400 300 / 300 100 / 100 Protonix Inj 80 MG In NS Inj 200 / 200 100 / 100 100 ML @ 10 mls/hr IV.CONT Q10H COLE Rx#:[id number] Flexbumin 25% Inj 100 ML @ 60 100 / 100 mls/hr IV.SIG WITH DIALYSIS PRN Rx#:[id number] Merrem Inj 500 MG In NS Inj 100 100 / 100 100 / 100 100 / 100 ML @ 200 mls/hr IV.SIG Q8H COLE Rx#:[id number] Mycamine Inj 100 MG In NS Inj 100 / 100 100 ML @ 100 mls/hr IV.SIG Q24H COLE Rx#:[id number] Output: Urine 0 / 0 Wound Drainage 300 / 300 350 / 350 # 2 Right Abdomen 300 / 300 350 / 350 Other: Date of Last Bowel Movement 12/27/17 Narrative: Alert and awake Abd: soft; midline incision very small now --healing nicely; ZAINAB removed at bedside; New J tube in place Generalized edema continues to improve - Urinary Catheter Management Indwelling Temp Sensing Catheter Cath placed during this visit: no Assessment and Plan - Assessment (1) JACLYN (acute kidney injury) Code(s): N17.9 - Acute kidney failure, unspecified Status: Acute Plan: Continue dialysis. Monitor for renal recovery. Avoid nephrotoxic agents. Seen during dialysis. Hemodialysis yesterday tolerated well, UF of 1 liter Hemodialysis done yesterday. Watch for renal recovery. (2) Acute respiratory failure Code(s): J96.00 - Acute respiratory failure, unspecified whether with hypoxia or hypercapnia Status: Acute Qualifiers: Respiratory failure complication: hypoxia Qualified Code(s): J96.01 - Acute respiratory failure with hypoxia Plan: Resolved, Extubated, on room air (3) Gastric perforation Code(s): K25.5 - Chronic or unspecified gastric ulcer with perforation Status : Resolved Plan: s/p surgery. Subtotal gastrectomy in [place]. In [facility] he had: Dinh-en-y esophagojejunostomy, feeding jejunostomy placement, diagnostic EGD, primary fascial closure. Date of procedure: 11/28/17 Negative bleeding scan - follow with GI, surgery. No immediate surgical plans at this point (4) Candidemia Code(s): B37.7 - Candidal sepsis Status: Acute Plan: On Micafungin. Dose medications appropriate to renal function. (5) DVT (deep venous thrombosis) Code(s): I82.409 - Acute embolism and thrombosis of unspecified deep veins of unspecified lower extremity Status: Acute Plan: DVT of bilateral upper extremities. (6) Anemia Code(s): D64.9 - Anemia, unspecified Status: Acute Plan: HGB dropped to 8.3 Could be multifactorial. - Plan Patient with JACLYN, and has been on HD. BP is stable, Non oliguric, Creatinine is still elevated. HD will be in AM.
--- NOTE | 2017-12-28 16:03 | P.PNID ---
Subjective Remarks: Patient is awake. No distress. He feels like his heart is racing. RN reports that he is eating very little. Jejunal feeding tube noted to have fallen off. Had a new surgeon tube inserted. Afebrile. Continues to have poor renal function. Wound culture from ZAINAB site has Klebsiella ESBL. Antibiotics: Micafungin Meropenem Lines: RSC TLC Past Medical History: Reviewed Allergies/Adverse Reactions: Allergies No Known Allergies Allergy (Verified 11/22/17 02:38) Objective Vital Signs 12/27/17 16:00 12/27/17 20:00 12/28/17 00:00 Temperature 98.9 F 98.6 F 98.4 F Pulse Rate 97 H 115 H 100 H Respiratory Rate 18 20 20 Blood Pressure 138/81 127/63 138/66 Pulse Oximetry 98 97 97 12/28/17 08:00 12/28/17 09:40 12/28/17 10:01 Temperature 97.3 F L 98.7 F Pulse Rate 89 96 H 93 H Respiratory Rate 16 18 16 Blood Pressure 120/59 L 136/77 131/74 Pulse Oximetry 97 96 96 12/28/17 12:00 Temperature 97.2 F L Pulse Rate 100 H Respiratory Rate 16 Blood Pressure 128/64 Pulse Oximetry 97 Intake & Output 12/27/17 12/28/17 12/28/17 18:59 06:59 18:59 Intake Total 400 / 400 300 / 300 200 / 200 Output Total 340 / 340 350 / 350 Balance 60 / 60 -50 / -50 200 / 200 Weight 58.2 kg Intake: IV 400 / 400 300 / 300 200 / 200 Protonix Inj 80 MG In NS Inj 200 / 200 100 / 100 100 ML @ 10 mls/hr IV.CONT Q10H COLE Rx#:[id number] Flexbumin 25% Inj 100 ML @ 60 100 / 100 mls/hr IV.SIG WITH DIALYSIS PRN Rx#:[id number] Merrem Inj 500 MG In NS Inj 100 100 / 100 100 / 100 100 / 100 ML @ 200 mls/hr IV.SIG Q8H COLE Rx#:[id number] Mycamine Inj 100 MG In NS Inj 100 / 100 100 / 100 100 ML @ 100 mls/hr IV.SIG Q24H COLE Rx#:[id number] Output: Urine 0 / 0 Wound Drainage 340 / 340 350 / 350 # 2 Right Abdomen 340 / 340 350 / 350 Other: Date of Last Bowel Movement 12/27/17 12/07/17 10:10 Fluid - Pleural fluid Fungal Smear - Final No fungal elements seen 12/07/17 10:10 Fluid - Pleural fluid Fungal Culture - Preliminary No growth in 3 weeks 12/07/17 10:10 Fluid - Pleural fluid Acid Fast Bacilli Smear - Final No acid fast bacilli seen 12/07/17 10:10 Fluid - Pleural fluid Mycobacterial Culture - Preliminary No growth in 3 weeks Lab - Hematology Results 12/27/17 12/28/17 04:15 06:36 WBC 15.4 H 16.6 H RBC 2.57 L 2.77 L Hgb 7.8 L 8.1 L Hct 22.8 L 24.6 L MCV 88.8 88.8 MCH 30.2 29.3 MCHC 34.0 33.0 RDW 16.1 16.1 Plt Count 365 368 MPV 7.8 8.3 Lab - Chemistry Results 12/27/17 12/27/17 12/28/17 04:15 04:15 06:36 Sodium 142 146 H Potassium 2.8 L* 2.5 L* Chloride 104 109 H Carbon Dioxide 26.6 24.4 Anion Gap 11 13 BUN 31 H 42 H Creatinine 4.38 H 5.41 H Estimated GFR 18 L 14 L Random Glucose 88 82 Calcium 7.7 L 8.0 L Magnesium 2.0 Imaging: ITS Impressions Head MRI 12/03/17 00:00 CONCLUSION: 1. Minimal nonspecific periventricular white matter changes. 2. No restricted diffusion to suggest an acute ischemic event. 3. No evidence for significant ischemic changes. Chest CT 12/04/17 00:06 CONCLUSION: 1. Left greater than right pleural effusions and basilar atelectasis. 2. No hemorrhage or hematoma demonstrated. 3. Distended and fluid-filled esophagus. No wall thickening. Patient is status post gastrectomy. Nasogastric tube is at the GE junction. 4. Body wall edema/anasarca. Abdomen X-Ray 12/08/17 00:00 CONCLUSION: 1. 2 left-sided abdominal catheters. 2. Nonspecific bowel gas pattern. Abdomen/Pelvis CT 12/13/17 00:00 CONCLUSION: 1. New proximal small bowel dilatation. No discrete transition point. Contrast is seen in the distal small bowel. Findings may represent ileus or partial obstruction. 2. Postsurgical findings with surgical drains in the left upper quadrant. Free fluid is seen in the left upper quadrant. Loculated rounded 5 cm area of fluid with thin peripheral enhancement also noted just inferior to the surgical drains. 3. Prominent left lower lobe pulmonary consolidation and small left pleural effusion. GI Bleed Scan Nuclear Medicine 12/15/17 00:00 CONCLUSION: No active bleeding demonstrated. Chest X-Ray 12/22/17 00:00 CONCLUSION: 1. Persistent patchy infiltrate within the left lung base. 2. Multiple tubes and lines are stable. The nasogastric tube remains with its tip in the distal esophagus. New right subclavian central line has its tip in superior vena cava. No pneumothorax is noted. Small Bowel X-Ray 12/22/17 00:00 CONCLUSION: No evidence of bowel obstruction. There is mild diffuse small bowel wall thickening identified within the jejunum and ileum consistent with possible edema given the appearance on initial imaging. Drain overlying the left lower quadrant. Jejunostomy Tube Placement 12/28/17 00:00 CONCLUSION: 1. Uncomplicated placement of a new 16 Cameroonian jejunostomy catheter through existing tract. Physical Exam: GENERAL: Awake and alert. HEENT: EOMI, ASHK[place]. Mucosa is moist. NECK: Supple. LUNGS: Decreased breath sounds at bases HEART: Regular S1, S2. No murmur. ABDOMEN: Decreased bowel sounds. Abdominal incision intact. EXTREMITIES: No clubbing or cyanosis. No edema. SKIN: No diffuse rash. NEUROLOGIC: Nonfocal. PSYCHIATRIC: calm LINES: No evidence of infection Assessment and Plan - Plan IMPRESSION: Candidemia following gastric perforation and gastric ischemia. Blood culture at [facility] in [place] on 11/26 had Starr glabrata. Repeat blood culture is negative. Status post abdominal surgery. ? abdominal wall infection at jejunal feeding tube site. Klebsiella. Leukocytosis, persistent Fevers better Acute respiratory failure. Extubated. Possible Aspiration. Acute kidney disease. - On HD Recent cardiac arrest. Abx associated diarrhea, bowel wall thickening c.diff neg. Clinically appears stable. RECOMMENDATIONS: Stop micafungin. Change meropenem to ertapenem. Monitor white blood cell count. Discussed with RN. Patient encouraged to eat to improve his nutrition.
[2017-12-28] MEDS: Ertapenem Inj 500 MG in Sodium Chlor 0.9% Inj 100 ML IV.SIG SCH (18:00)
--- NOTE | 2017-12-28 18:02 | P.PNIM ---
Subjective Interval history: 47-year-old male with complex hospital course. See last ICU progress note for detail. Essentially the patient was admitted and went into florid septic shock, cardiac arrest from acute pneumoperitoneum, gastric perforation and GI ischemia. He was emergently taken to the OR and ultimately transferred to [facility] where he underwent reexploration on 11/28, Dinh-en-y esophagojejunostomy, feeding jejunostomy placement, diagnostic EGD, primary fascial closure. Wound vac was applied to abdomen. Patient has since been transferred back to [place]. He has been extubated. He still has an open abdominal wound and has been having intermittent issues with delirium s/p JJtube replacement by IR today. Pt seen and examined, he is not talkative but deneis sob, no cp, no nv, per nursing he is not drinking his thickened liquids and is extremely weak, requiring full assist to even stand at bedside. Physical Exam Vital signs: Last Vital Signs Temp 98.0 F 12/28/17 16:00 Pulse 92 H 12/28/17 16:00 Resp 17 12/28/17 16:00 BP 153/72 H 12/28/17 16:00 Pulse Ox 98 12/28/17 16:00 Intake & Output 12/26/17 12/27/17 12/28/17 12/29/17 06:59 06:59 06:59 06:59 Intake Total 1270 / 1270 1420 / 1420 700 / 700 200 / 200 Output Total 2850 / 2850 3750 / 3750 690 / 690 Balance -1580 / -1580 -2330 / -2330 10 10 200 / 200 Weight 59.7 kg 59 kg 58.2 kg GEN: Chronically ill-appearing, awakes w very flat affect, follows and responds approp NECK: Right IJ Vas-Cath CARDIO: Normal rate and regular rhythm. PULM: Mostly clear bilaterally occas scattered rhonchi. GI: Abdomen soft. surgical wound open, Dressings dry and clean. nondt pos bs NEURO: gen weakenss MSK: 2+ pedal edema bilaterally. Urinary Catheter Management Indwelling Temp Sensing Catheter: Cath placed during this visit: no Results Labs CBC & Chem 7: 12/28/17 06:36 12/28/17 06:36 Labs: Microbiology 12/07/17 10:10 Fluid - Pleural fluid Fungal Smear - Final No fungal elements seen 12/07/17 10:10 Fluid - Pleural fluid Fungal Culture - Preliminary No growth in 3 weeks 12/07/17 10:10 Fluid - Pleural fluid Acid Fast Bacilli Smear - Final No acid fast bacilli seen 12/07/17 10:10 Fluid - Pleural fluid Mycobacterial Culture - Preliminary No growth in 3 weeks Imaging Imaging: Impressions Jejunostomy Tube Placement 12/28/17 00:00 CONCLUSION: 1. Uncomplicated placement of a new 16 Micronesian jejunostomy catheter through existing tract. Assessment and Plan (1) Gastric perforation: Code(s): K25.5 - Chronic or unspecified gastric ulcer with perforation Status: Resolved . Plan ACUTE METABOLIC ENCEPHALOPATHY w ACUTE DILERIUM due to critical illness: Resolving. Move out of the ICU to help with orientation. ACUTE RESPIRATORY FAILURE /TENSION PNEUMOTHORAX left pigtail chest tube removed 12/18 Extubated 12/22 continue Bronchodilator, Mucolytic and Incentive spirometry. stable on nc CARDIAC ARREST 11/23/17 PEA arrest due to shock secondary to acute gastric perforation and tension pneumoperitoneum -Currently hemodynamically stable. Off pressors. 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 ISCHEMIC HEPATOPATHY resolving GIB with ANEMIA OF ACUTE BLOOD LOSS EGD, enteroscopy 12/12/2017 unremarkable, colonoscopy 12/13/2017 unremarkable. Bleeding scan did not show any particular site of bleeding Had right upper quadrant ultrasound on 11/27/17 that demonstrated contracted gallbladder with sludge. No evidence of cholecystitis. Echogenicity in right liver related to focal fatty change or altered perfusion, patent vascularity. Protonix per GI. Appreciate general surgery following. Continue pure, thickened liquid diet. ACUTE RENAL FAILURE secondary to ISCHEMIC ATN HD started 11/26 Nephrology following. Continue hemodialysis per nephrology. KLEBSIELLA ESBL ABD WOUND INFECTION - cont merem per ID CANDIDEMIA following gastric perforation and gastric ischemia. Blood culture at [facility] in [place] on 11/26 had Starr glabrata. Repeat blood culture is negative. Infectious disease following.Continue micafungin for candidemia. ANEMIArequiring transfusion/THROMBOCYTOPENIA resolved BILATERAL UE DVT U/s 11/26 BUE - thrombus R axillary, brachial and basilic veins and thrombus in left axillary and left brachial veins. Hematology consult was obtained at [facility] and patient was treated with heparin. Continue subcu heparin here. Hemoglobin stable today. Continue to monitor. PRESSURE ULCER OF SACRUM/COCCYX and BUTTOCKS Wound care nursing following. Continue with dressing change and frequent turning. MUSCLE WEAKNESS AND MYOPATHY OF CRITICAL ILLNESS - extremely weak, cont PT,will require placement SEVERE PROTEIN CALORIE MALNUTRITION w bmi 16, dysphagia and s/p partial gastrectomy, cont thickened diet as tolerated has poor appetite, supplemental Jejunostomy TF till bmi improves HTN - hydralazine and metoprolol HYPOKALEMIA - replace w caution, fu w nephrology Full cod Progress Note: Quality VTE Deep Vein Thrombosis/Pulmonary Embolism Present on Admission: No
[2017-12-28] MEDS ORDERED: Metoprolol Tartrate 25 MG Tablet PO SCH (18:30)
[2017-12-29] MEDS: Pantoprazole Inj 80 MG in Sodium Chlor 0.9% Inj 100 ML IV.CONT SCH ×2 (05:12→17:57)
[2017-12-29] MEDS: Metoprolol Tartrate 25 MG Tablet PO SCH ×5 (05:12→20:55)
[2017-12-29 08:12] LABS: Baso # (Auto) 0.2 th/mm3 (0.0-0.2); Baso % (Auto) 0.8 % (0.0-2.0); Eos # (Auto) 0.8 th/mm3 (0.0-0.4); Eos % (Auto) 3.9 % (0.0-4.0); Hematocrit 24.3 % (39.0-51.0); Hemoglobin 8.5 gm/dL (13.0-17.0); Lymph # (Auto) 1.1 th/mm3 (1.0-4.8); Lymph % (Auto) 5.8 % (9.0-44.0); Mean Corpuscular Hemoglobin 30.7 pg (27.0-34.0); Mean Corpuscular Volume 87.7 fL (80.0-100.0); Mean Platelet Volume 8.3 fL (7.0-11.0); Mono # (Auto) 1.3 th/mm3 (0.0-0.9); Mono % (Auto) 6.8 % (0.0-8.0); Neut % (Auto) 82.7 % (16.0-70.0); Platelet Count 372 th/mm3 (150-450); Red Blood Count 2.78 mil/mm3 (4.50-5.90); Red Cell Distribution Width 16.3 % (11.6-17.2); White Blood Count 19.3 th/mm3 (4.0-11.0)
[2017-12-29] MEDS: Heparin 10,000 UNITS/10 ML Vial (for IV use) OTHER PRN (10:42)
--- NOTE | 2017-12-29 10:50 | P.PNNP ---
Subjective Interval history: patient seen at Hemodialysis unit low BP Physical Exam Vital signs: Vital Signs 12/28/17 12:00 12/28/17 16:00 12/28/17 20:00 Temperature 97.2 F L 98.0 F 97.9 F Pulse Rate 100 H 92 H 111 H Respiratory Rate 16 17 20 Blood Pressure 128/64 153/72 H 110/53 L Pulse Oximetry 97 98 99 12/29/17 00:00 12/29/17 04:00 12/29/17 08:00 Temperature 97.5 F L 97.1 F L 97.2 F L Pulse Rate 113 H 107 H 100 H Respiratory Rate 20 20 20 Blood Pressure 126/67 127/69 132/67 Pulse Oximetry 97 98 99 Intake & Output 12/28/17 12/29/17 12/29/17 18:59 06:59 18:59 Intake Total 1500 / 1500 400 / 400 Output Total 1999 / 1999 2800 / 2800 Balance -500 / -500 -2400 / -2400 Weight 56.1 kg Intake: IV 300 / 300 400 / 400 Protonix Inj 80 MG In NS Inj 100 / 100 200 / 200 100 ML @ 10 mls/hr IV.CONT Q10H COLE Rx#:[id number] INVanz Inj 500 MG In NS Inj 100 100 / 100 ML @ 200 mls/hr IV.SIG Q24H COLE Rx#:[id number] Merrem Inj 500 MG In NS Inj 100 100 / 100 100 / 100 ML @ 200 mls/hr IV.SIG Q8H COLE Rx#:[id number] Mycamine Inj 100 MG In NS Inj 100 / 100 100 ML @ 100 mls/hr IV.SIG Q24H COLE Rx#:[id number] Oral 1200 / 1200 Output: Urine 1999 / 1999 Urine/Stool Mix 2800 / 2800 Other: # Bowel Movements 0 Narrative: Alert and awake Abd: soft; midline incision very small now --healing nicely; ZAINAB removed at bedside; New J tube in place Generalized edema continues to improve - Urinary Catheter Management Indwelling Temp Sensing Catheter Cath placed during this visit: no Assessment and Plan - Assessment (1) JACLYN (acute kidney injury) Code(s): N17.9 - Acute kidney failure, unspecified Status: Acute Plan: Continue dialysis. Monitor for renal recovery. Avoid nephrotoxic agents. Seen during dialysis. Hemodialysis seen today has low BP 500 cc of uf Hemodialysis Next Sunday. Watch for renal recovery. (2) Acute respiratory failure Code(s): J96.00 - Acute respiratory failure, unspecified whether with hypoxia or hypercapnia Status: Acute Qualifiers: Respiratory failure complication: hypoxia Qualified Code(s): J96.01 - Acute respiratory failure with hypoxia Plan: Resolved, Extubated, on room air (3) Gastric perforation Code(s): K25.5 - Chronic or unspecified gastric ulcer with perforation Status : Resolved Plan: s/p surgery. Subtotal gastrectomy in [place]. In [facility] he had: Dinh-en-y esophagojejunostomy, feeding jejunostomy placement, diagnostic EGD, primary fascial closure. Date of procedure: 11/28/17 Negative bleeding scan - follow with GI, surgery. No immediate surgical plans at this point (4) Candidemia Code(s): B37.7 - Candidal sepsis Status: Acute Plan: On Micafungin. Dose medications appropriate to renal function. (5) DVT (deep venous thrombosis) Code(s): I82.409 - Acute embolism and thrombosis of unspecified deep veins of unspecified lower extremity Status: Acute Plan: DVT of bilateral upper extremities. (6) Anemia Code(s): D64.9 - Anemia, unspecified Status: Acute Plan: HGB dropped to 8.3 Could be multifactorial. - Plan Patient with JACLYN, and has been on HD. BP is stable, Non oliguric, Creatinine is still elevated. HD will be in AM.
[2017-12-29] MEDS: Calcium Acetate 667 MG Capsule PO SCH ×3 (13:15→17:57)
[2017-12-29] MEDS: hydrALAZINE 50 MG Tablet PO SCH ×3 (13:15→17:57)
[2017-12-29] MEDS: Collagenase Oint 30 GM Tube TOPICAL SCH (13:23)
[2017-12-29] MEDS: Ertapenem Inj 500 MG in Sodium Chlor 0.9% Inj 100 ML IV.SIG SCH (17:57)
[2017-12-29] MEDS ORDERED: Loperamide 2 MG Capsule PO ONE (18:15)
--- NOTE | 2017-12-29 18:15 | P.PNIM ---
Subjective Interval history: 47-year-old male with complex hospital course, admitted w florid septic shock, cardiac arrest from acute pneumoperitoneum, gastric perforation and GI ischemia. He was emergently taken to the OR and ultimately transferred to [facility] where he underwent reexploration on 11/28, Dinh-en-y esophagojejunostomy, feeding jejunostomy placement, diagnostic EGD, primary fascial closure. Wound vac was applied to abdomen. Patient has since been transferred back to [place]. He has been extubated, continues on dialysis, and has an open abdominal wound and has been having intermittent issues with delirium also s/p JJtube replacement by IR today. Pt seen and examined, post dialysis today, he is not talkative but deneis sob, no cp, no nv, he is complaining of loose stools Physical Exam Vital signs: Last Vital Signs Temp 98.2 F 12/29/17 13:49 Pulse 119 H 12/29/17 13:49 Resp 20 12/29/17 13:49 BP 124/69 12/29/17 13:49 Pulse Ox 99 12/29/17 13:49 Intake & Output 12/27/17 12/28/17 12/29/17 12/30/17 06:59 06:59 06:59 06:59 Intake Total 1420 / 1420 700 / 700 1900 / 1900 100 / 100 Output Total 3750 / 3750 690 / 690 4800 / 4800 500 / 500 Balance -2330 / -2330 -2900 / -2900 -400 / -400 Weight 59 kg 58.2 kg 56.1 kg thin chronically ill appearing 47yo m awake alert follows nad, flat affect heart s1s2 reg tachy lungs clear no wrr abd soft nondt, wound w dressing in place jjtub in place ext muscle atropy, no edema, R dialysis catheter and R TLC in place Urinary Catheter Management Indwelling Temp Sensing Catheter: Cath placed during this visit: no Results Labs CBC & Chem 7: 12/29/17 07:45 12/28/17 06:36 Labs: Microbiology 12/07/17 10:10 Fluid - Pleural fluid Fungal Smear - Final No fungal elements seen 12/07/17 10:10 Fluid - Pleural fluid Fungal Culture - Preliminary No growth in 3 weeks 12/07/17 10:10 Fluid - Pleural fluid Acid Fast Bacilli Smear - Final No acid fast bacilli seen 12/07/17 10:10 Fluid - Pleural fluid Mycobacterial Culture - Preliminary No growth in 3 weeks Assessment and Plan (1) JACLYN (acute kidney injury): Code(s): N17.9 - Acute kidney failure, unspecified Status: Acute (2) Acute respiratory failure: Code(s): J96.00 - Acute respiratory failure, unspecified whether with hypoxia or hypercapnia Status: Acute (3) Gastric perforation: Code(s): K25.5 - Chronic or unspecified gastric ulcer with perforation Status: Resolved . (4) Candidemia: Code(s): B37.7 - Candidal sepsis Status: Acute (5) DVT (deep venous thrombosis): Code(s): I82.409 - Acute embolism and thrombosis of unspecified deep veins of unspecified lower extremity Status: Acute (6) Anemia: Code(s): D64.9 - Anemia, unspecified Status: Acute Plan ACUTE METABOLIC ENCEPHALOPATHY w ACUTE DELIRIUM due to critical illness: Resolving. ACUTE RESPIRATORY FAILURE /TENSION PNEUMOTHORAX left pigtail chest tube removed 12/18 Extubated 12/22 continue Bronchodilator, Mucolytic and Incentive spirometry. now stable on RA CARDIAC ARREST 11/23/17 PEA arrest due to shock secondary to acute gastric perforation and tension pneumoperitoneum -Currently hemodynamically stable. 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 - cont wound care, diet as tolerated, tube feeds as marvin. ISCHEMIC HEPATOPATHY resolving GIB with ANEMIA OF ACUTE BLOOD LOSS EGD, enteroscopy 12/12/2017 unremarkable, colonoscopy 12/13/2017 unremarkable. Bleeding scan did not show any particular site of bleeding Had right upper quadrant ultrasound on 11/27/17 that demonstrated contracted gallbladder with sludge. No evidence of cholecystitis. Echogenicity in right liver related to focal fatty change or altered perfusion, patent vascularity. Protonix per GI. Appreciate general surgery following. Continue pure, thickened liquid diet. ACUTE RENAL FAILURE secondary to ISCHEMIC ATN requiring dialysis HD started 11/26 Nephrology following. Continue hemodialysis per nephrology. KLEBSIELLA ESBL ABD WOUND INFECTION - cont merem per ID CANDIDEMIA following gastric perforation and gastric ischemia. Blood culture at [facility] in [place] on 11/26 had Starr glabrata. Repeat blood culture is negative. Infectious disease following.Continue micafungin for candidemia. ANEMIArequiring transfusion/THROMBOCYTOPENIA resolved BILATERAL UE DVT U/s 11/26 BUE - thrombus R axillary, brachial and basilic veins and thrombus in left axillary and left brachial veins. Hematology consult was obtained at [facility] and patient was treated with heparin. Continue subcu heparin here. Hemoglobin stable today. Continue to monitor. PRESSURE ULCER OF SACRUM/COCCYX and BUTTOCKS Wound care nursing following. Continue with dressing change and frequent turning. MUSCLE WEAKNESS AND MYOPATHY OF CRITICAL ILLNESS - extremely weak, cont PT,will require placement SEVERE PROTEIN CALORIE MALNUTRITION w bmi 16, dysphagia and s/p partial gastrectomy, cont thickened diet as tolerated has poor appetite, supplemental Jejunostomy TF till bmi improves HTN - hydralazine and metoprolol HYPOKALEMIA - replace w caution, fu w nephrology LEUKOCYTOSIS - worsening, no fever, will repeat cdif and cxr DYSPHAGIA - asp risk, cont thickened liq per ST, DIARRHEA- check for cdif, prob from abx and nephro tf, immodium prn Full cod Progress Note: Quality VTE Deep Vein Thrombosis/Pulmonary Embolism Present on Admission: No _ (1) Acute respiratory failure Qualifiers: Respiratory failure complication: hypoxia Qualified Code(s): J96.01 - Acute respiratory failure with hypoxia (2) DVT (deep venous thrombosis) Qualifiers: Affected thrombotic vein of extremity: Chronicity: DVT location: Laterality: (3) Anemia Qualifiers: Anemia type: Bone marrow failure anemia type: Chronic kidney disease stage : Folate deficiency anemia type: Hemolytic anemia type: Iron deficiency anemia type: Other causes of anemia: Vitamin B12 deficiency anemia type:
[2017-12-30] MEDS: Metoprolol Tartrate 25 MG Tablet PO SCH ×4 (03:06→20:29)
[2017-12-30] MEDS: Pantoprazole Inj 80 MG in Sodium Chlor 0.9% Inj 100 ML IV.CONT SCH ×3 (03:57→19:23)
[2017-12-30 05:32] LABS: Baso # (Auto) 0.2 th/mm3 (0.0-0.2); Baso % (Auto) 1.1 % (0.0-2.0); Eos # (Auto) 0.9 th/mm3 (0.0-0.4); Eos % (Auto) 5.9 % (0.0-4.0); Hemoglobin 8.7 gm/dL (13.0-17.0); Lymph # (Auto) 1.3 th/mm3 (1.0-4.8); Lymph % (Auto) 8.5 % (9.0-44.0); Mean Corpuscular HGB Conc 33.7 % (32.0-36.0); Mean Corpuscular Hemoglobin 29.6 pg (27.0-34.0); Mean Corpuscular Volume 87.9 fL (80.0-100.0); Mean Platelet Volume 8.5 fL (7.0-11.0); Mono # (Auto) 1.3 th/mm3 (0.0-0.9); Mono % (Auto) 7.9 % (0.0-8.0); Neut # (Auto) 12.1 th/mm3 (1.8-7.7); Neut % (Auto) 76.6 % (16.0-70.0); Platelet Count 336 th/mm3 (150-450); Red Blood Count 2.96 mil/mm3 (4.50-5.90); Red Cell Distribution Width 16.2 % (11.6-17.2); White Blood Count 15.8 th/mm3 (4.0-11.0)
[2017-12-30] MEDS: hydrALAZINE 50 MG Tablet PO SCH ×4 (09:00→19:02)
[2017-12-30] MEDS: Calcium Acetate 667 MG Capsule PO SCH ×3 (09:00→17:40)
[2017-12-30] MEDS: Collagenase Oint 30 GM Tube TOPICAL SCH (12:24)
[2017-12-30] MEDS: Ertapenem Inj 500 MG in Sodium Chlor 0.9% Inj 100 ML IV.SIG SCH (15:00)
--- NOTE | 2017-12-30 16:12 | P.PNNP ---
Subjective Interval history: Patient is feeling tired 47-year-old with multiple medical issues on dialysis Physical Exam Vital signs: Vital Signs 12/29/17 20:00 12/30/17 00:00 12/30/17 07:54 Temperature 98.0 F 98.0 F 98.5 F Pulse Rate 116 H 102 H 107 H Respiratory Rate 18 18 18 Blood Pressure 113/55 L 123/64 131/66 Pulse Oximetry 97 98 99 12/30/17 12:00 12/30/17 16:00 Temperature 98 F 98.3 F Pulse Rate 103 H 106 H Respiratory Rate 18 18 Blood Pressure 114/64 134/68 Pulse Oximetry 100 100 Intake & Output 12/29/17 12/30/17 12/30/17 18:59 06:59 18:59 Intake Total 560 / 560 678 / 678 240 / 240 Output Total 900 / 900 500 / 500 Balance -340 / -340 678 / 678 -260 / -260 Weight 51.1 kg Intake: IV 200 / 200 Protonix Inj 80 MG In NS Inj 100 / 100 100 ML @ 10 mls/hr IV.CONT Q10H COLE Rx#:[id number] INVanz Inj 500 MG In NS Inj 100 100 / 100 ML @ 200 mls/hr IV.SIG Q24H COLE Rx#:[id number] Oral 360 / 360 0 / 0 240 / 240 Tube Feeding 658 / 658 Tube Irrigant 20 / 20 Output: Urine 400 / 400 500 / 500 Hemodialysis Amount 500 / 500 Other: # Voids 0 # Incontinent Voids 5 # Bowel Movements 2 1 # Incontinent Bowel Movements 6 1 Narrative: GENERAL: Mal-nourished, well-developed patient. SKIN: Warm and dry. HEAD: Normocephalic. EYES: No scleral icterus. No injection or drainage. NECK: Supple, trachea midline. No JVD or lymphadenopathy. CARDIOVASCULAR: Regular rate and rhythm without murmurs, gallops, or rubs. RESPIRATORY: Breath sounds diminished at bases GASTROINTESTINAL: Abdomen soft, non-tender, nondistended. EXTREMITIES: 1+ edema NEUROLOGICAL: Awake, alert, . - Urinary Catheter Management Indwelling Temp Sensing Catheter Cath placed during this visit: no Assessment and Plan - Assessment (1) JACLYN (acute kidney injury) Code(s): N17.9 - Acute kidney failure, unspecified Status: Acute Plan: Continue dialysis. Monitor for renal recovery. Avoid nephrotoxic agents. Seen during dialysis. Hemodialysis yesterday 500 cc of uf Hemodialysis Next Sunday. Watch for renal recovery. Dr. Connor to follow (2) Acute respiratory failure Code(s): J96.00 - Acute respiratory failure, unspecified whether with hypoxia or hypercapnia Status: Acute Qualifiers: Respiratory failure complication: hypoxia Qualified Code(s): J96.01 - Acute respiratory failure with hypoxia Plan: Resolved, Extubated, on room air (3) Gastric perforation Code(s): K25.5 - Chronic or unspecified gastric ulcer with perforation Status : Resolved Plan: s/p surgery. Subtotal gastrectomy in [place]. In [facility] he had: Dinh-en-y esophagojejunostomy, feeding jejunostomy placement, diagnostic EGD, primary fascial closure. Date of procedure: 11/28/17 Negative bleeding scan - follow with GI, surgery. No immediate surgical plans at this point (4) Candidemia Code(s): B37.7 - Candidal sepsis Status: Acute Plan: On Micafungin. Dose medications appropriate to renal function. (5) DVT (deep venous thrombosis) Code(s): I82.409 - Acute embolism and thrombosis of unspecified deep veins of unspecified lower extremity Status: Acute Plan: DVT of bilateral upper extremities. (6) Anemia Code(s): D64.9 - Anemia, unspecified Status: Acute Plan: HGB dropped to 8.3 Could be multifactorial. - Plan Patient with JACLYN, and has been on HD. BP is stable, Non oliguric, Creatinine is still elevated. HD will be in AM.
--- NOTE | 2017-12-30 17:43 | P.PNIM ---
Subjective Interval history: 47-year-old male with complex hospital course, admitted w florid septic shock, cardiac arrest from acute pneumoperitoneum, gastric perforation and GI ischemia. He was emergently taken to the OR and ultimately transferred to [facility] where he underwent reexploration on 11/28, Dinh-en-y esophagojejunostomy, feeding jejunostomy placement, diagnostic EGD, primary fascial closure. Wound vac was applied to abdomen. Patient has since been transferred back to [place]. He has been extubated, continues on dialysis, and has an open abdominal wound and has been having intermittent issues with delirium also s/p JJtube replacement by IR Pt seen and examined, still complaining of loose stools, he denies pain, no sob, no cp, wants to get oob and work w pt Physical Exam Vital signs: Last Vital Signs Temp 98.3 F 12/30/17 16:00 Pulse 106 H 12/30/17 16:00 Resp 18 12/30/17 16:00 BP 134/68 12/30/17 16:00 Pulse Ox 100 12/30/17 16:00 Intake & Output 12/28/17 12/29/17 12/30/17 12/31/17 06:59 06:59 06:59 06:59 Intake Total 700 / 700 1900 / 1900 1238 / 1238 240 / 240 Output Total 690 / 690 4800 / 4800 900 / 900 500 / 500 Balance -2900 / -2900 338 / 338 -260 / -260 Weight 58.2 kg 56.1 kg 51.1 kg thin 47yo aam weak and debilitated aaox3 nad speaks in very soft voice heart s1s2 reg tachy lungs clear no wrr, abd soft nondt jjostomy in place wound w dressing in place ext no edema, no calf tenderness, pulses palp Urinary Catheter Management Indwelling Temp Sensing Catheter: Cath placed during this visit: no Results Labs CBC & Chem 7: 12/30/17 05:02 12/28/17 06:36 Labs: Microbiology 12/30/17 10:38 Stool Stool Occult Blood (DEB) - Final Hemoccult negative Assessment and Plan (1) JACLYN (acute kidney injury): Code(s): N17.9 - Acute kidney failure, unspecified Status: Acute (2) Acute respiratory failure: Code(s): J96.00 - Acute respiratory failure, unspecified whether with hypoxia or hypercapnia Status: Acute (3) Gastric perforation: Code(s): K25.5 - Chronic or unspecified gastric ulcer with perforation Status: Resolved . (4) Candidemia: Code(s): B37.7 - Candidal sepsis Status: Acute (5) DVT (deep venous thrombosis): Code(s): I82.409 - Acute embolism and thrombosis of unspecified deep veins of unspecified lower extremity Status: Acute (6) Anemia: Code(s): D64.9 - Anemia, unspecified Status: Acute Plan ACUTE METABOLIC ENCEPHALOPATHY w ACUTE DELIRIUM due to critical illness: improving, cont oob w pt, cont st, ot, now can participate ACUTE RESPIRATORY FAILURE /TENSION PNEUMOTHORAX left pigtail chest tube removed 12/18 Extubated 12/22 continue Bronchodilator, Mucolytic and Incentive spirometry. now stable on RA CARDIAC ARREST 11/23/17 PEA arrest due to shock secondary to acute gastric perforation and tension pneumoperitoneum -Currently hemodynamically stable. mild hypotension during dialysis today ANTERIOR GASTRIC PERFORATION with TENSION PENUMOPERITONEUM/ S/P SUBTOTAL GASTRECTOMY w feeding jejunostomy - Status post Exploratory laparotomy repair of perforation with stapler and Second look 11/25 found gastric necrosis requiring subtotal gastrectomy and placement of AB Thera VAC dressing, transferred to [facility] 11/28 reexploration with Dinh-en-y esophagojejunostomy, feeding jejunostomy placement diagnostic EGD primary fascial closure. - cont wound care, diet as tolerated, tube feeds as marvin. ISCHEMIC HEPATOPATHY resolving GIB with ANEMIA OF ACUTE BLOOD LOSS EGD, enteroscopy 12/12/2017 unremarkable, colonoscopy 12/13/2017 unremarkable. Bleeding scan did not show any particular site of bleeding Had right upper quadrant ultrasound on 11/27/17 that demonstrated contracted gallbladder with sludge. No evidence of cholecystitis. Echogenicity in right liver related to focal fatty change or altered perfusion, patent vascularity. Protonix per GI. Appreciate general surgery following. Continue pure, thickened liquid diet. ACUTE RENAL FAILURE secondary to ISCHEMIC ATN requiring dialysis HD started 11/26 Nephrology following. Continue hemodialysis per nephrology. KLEBSIELLA ESBL ABD WOUND INFECTION - cont merem per ID CANDIDEMIA following gastric perforation and gastric ischemia. Blood culture at [facility] in [place] on 11/26 had Starr glabrata. Repeat blood culture is negative. Infectious disease following.Continue micafungin for candidemia. ANEMIArequiring transfusion/THROMBOCYTOPENIA resolved BILATERAL UE DVT U/s 11/26 BUE - thrombus R axillary, brachial and basilic veins and thrombus in left axillary and left brachial veins. Hematology consult was obtained at [facility] and patient was treated with heparin. Continue subcu heparin here. Hemoglobin stable today. Continue to monitor. PRESSURE ULCER OF SACRUM/COCCYX and BUTTOCKS Wound care nursing following. Continue with dressing change and frequent turning. MUSCLE WEAKNESS AND MYOPATHY OF CRITICAL ILLNESS - extremely weak, cont PT,will require placement SEVERE PROTEIN CALORIE MALNUTRITION w bmi 14.5, alb 1.7, w mild dysphagia and s/ p partial gastrectomy, cont thickened diet as tolerated, has poor appetite, supplemental Jejunostomy TF till bmi improves may change to nightly feeds supplementation and oral during daytime if his po intake improves, fu w nutrition and st recommendations HTN - hydralazine and metoprolol HYPOKALEMIA - replace w caution, fu w nephrology LEUKOCYTOSIS - 19->15 today, no fever, DYSPHAGIA - asp risk, cont thickened liq per ST,resume oral diet as tolerated DIARRHEA- check for cdif, prob from abx and nephro tf, immodium not helping, prob due to tube feeding, add florastor, questran vs lomotil DISPO - allen will need placement insurance pending Full cod Progress Note: Quality VTE Deep Vein Thrombosis/Pulmonary Embolism Present on Admission: No _ (1) Acute respiratory failure Qualifiers: Respiratory failure complication: hypoxia Qualified Code(s): J96.01 - Acute respiratory failure with hypoxia (2) DVT (deep venous thrombosis) Qualifiers: DVT location: Affected thrombotic vein of extremity: Chronicity: Laterality: (3) Anemia Qualifiers: Anemia type: Iron deficiency anemia type: Vitamin B12 deficiency anemia type: Folate deficiency anemia type: Bone marrow failure anemia type: Hemolytic anemia type: Other causes of anemia: Chronic kidney disease stage :
[2017-12-30] MEDS: Cholestyramine Light 4 GM Packet PO SCH (20:33)
--- NOTE | 2017-12-30 21:21 | P.PN ---
Subjective Interval history: NOT SEEN Physical Exam Vital signs: Vital Signs 12/30/17 00:00 12/30/17 07:54 12/30/17 12:00 Temperature 98.0 F 98.5 F 98 F Pulse Rate 102 H 107 H 103 H Respiratory Rate 18 18 18 Blood Pressure 123/64 131/66 114/64 Pulse Oximetry 98 99 100 12/30/17 16:00 Temperature 98.3 F Pulse Rate 106 H Respiratory Rate 18 Blood Pressure 134/68 Pulse Oximetry 100 Intake & Output 12/30/17 12/30/17 12/31/17 06:59 18:59 06:59 Intake Total 778 / 778 340 / 340 Output Total 500 / 500 Balance 778 / 778 -160 / -160 Weight 51.1 kg Intake: IV 100 / 100 100 / 100 Protonix Inj 80 MG In NS Inj 100 / 100 100 / 100 100 ML @ 10 mls/hr IV.CONT Q10H COLE Rx#:[id number] Oral 0 / 0 240 / 240 Tube Feeding 658 / 658 Tube Irrigant 20 / 20 Output: Urine 500 / 500 Other: # Voids 0 # Bowel Movements 2 2 # Incontinent Bowel Movements 1 Narrative: thin 47yo aam weak and debilitated aaox3 nad speaks in very soft voice heart s1s2 reg tachy lungs clear no wrr, abd soft nondt jjostomy in place wound w dressing in place ext no edema, no calf tenderness, pulses palp - Urinary Catheter Management Indwelling Temp Sensing Catheter Cath placed during this visit: no Results - Labs CBC & Chem 7: 12/30/17 05:02 12/28/17 06:36 Laboratory Results - last 24 hr 12/30/17 12/30/17 05:02 10:38 WBC 15.8 H RBC 2.96 L Hgb 8.7 L Hct 26.0 L MCV 87.9 MCH 29.6 MCHC 33.7 RDW 16.2 Plt Count 336 MPV 8.5 Neut % (Auto) 76.6 H Lymph % (Auto) 8.5 L [place] % (Auto) 7.9 Eos % (Auto) 5.9 H Baso % (Auto) 1.1 Neut # (Auto) 12.1 H Lymph # (Auto) 1.3 [place] # (Auto) 1.3 H Eos # (Auto) 0.9 H Baso # (Auto) 0.2 WBC Differential . Differential Comment Auto diff final Stl C.difficile DNA Amp Negative St C. diff Tox Epid 027 Negative Microbiology 12/30/17 10:38 Stool Stool Occult Blood (DEB) - Final Hemoccult negative - Imaging ITS Impressions Head MRI 12/03/17 00:00 CONCLUSION: 1. Minimal nonspecific periventricular white matter changes. 2. No restricted diffusion to suggest an acute ischemic event. 3. No evidence for significant ischemic changes. Chest CT 12/04/17 00:06 CONCLUSION: 1. Left greater than right pleural effusions and basilar atelectasis. 2. No hemorrhage or hematoma demonstrated. 3. Distended and fluid-filled esophagus. No wall thickening. Patient is status post gastrectomy. Nasogastric tube is at the GE junction. 4. Body wall edema/anasarca. Abdomen X-Ray 12/08/17 00:00 CONCLUSION: 1. 2 left-sided abdominal catheters. 2. Nonspecific bowel gas pattern. Abdomen/Pelvis CT 12/13/17 00:00 CONCLUSION: 1. New proximal small bowel dilatation. No discrete transition point. Contrast is seen in the distal small bowel. Findings may represent ileus or partial obstruction. 2. Postsurgical findings with surgical drains in the left upper quadrant. Free fluid is seen in the left upper quadrant. Loculated rounded 5 cm area of fluid with thin peripheral enhancement also noted just inferior to the surgical drains. 3. Prominent left lower lobe pulmonary consolidation and small left pleural effusion. GI Bleed Scan Nuclear Medicine 12/15/17 00:00 CONCLUSION: No active bleeding demonstrated. Chest X-Ray 12/22/17 00:00 CONCLUSION: 1. Persistent patchy infiltrate within the left lung base. 2. Multiple tubes and lines are stable. The nasogastric tube remains with its tip in the distal esophagus. New right subclavian central line has its tip in superior vena cava. No pneumothorax is noted. Small Bowel X-Ray 12/22/17 00:00 CONCLUSION: No evidence of bowel obstruction. There is mild diffuse small bowel wall thickening identified within the jejunum and ileum consistent with possible edema given the appearance on initial imaging. Drain overlying the left lower quadrant. Jejunostomy Tube Placement 12/28/17 00:00 CONCLUSION: 1. Uncomplicated placement of a new 16 [place] jejunostomy catheter through existing tract. - Procedures Jejunostomy tube placement Assessment and Plan - Assessment (1) JACLYN (acute kidney injury) Code(s): N17.9 - Acute kidney failure, unspecified Status: Acute (2) Acute respiratory failure Code(s): J96.00 - Acute respiratory failure, unspecified whether with hypoxia or hypercapnia Status: Acute (3) Gastric perforation Code(s): K25.5 - Chronic or unspecified gastric ulcer with perforation Status : Resolved Plan: . (4) Candidemia Code(s): B37.7 - Candidal sepsis Status: Acute (5) DVT (deep venous thrombosis) Code(s): I82.409 - Acute embolism and thrombosis of unspecified deep veins of unspecified lower extremity Status: Acute (6) Anemia Code(s): D64.9 - Anemia, unspecified Status: Acute - Plan ACUTE METABOLIC ENCEPHALOPATHY w ACUTE DELIRIUM due to critical illness: improving, cont oob w pt, cont st, ot, now can participate ACUTE RESPIRATORY FAILURE /TENSION PNEUMOTHORAX left pigtail chest tube removed 12/18 Extubated 12/22 continue Bronchodilator, Mucolytic and Incentive spirometry. now stable on RA CARDIAC ARREST 11/23/17 PEA arrest due to shock secondary to acute gastric perforation and tension pneumoperitoneum -Currently hemodynamically stable. ANTERIOR GASTRIC PERFORATION with TENSION PNEUMOPERITONEUM/ S/P SUBTOTAL GASTRECTOMY w feeding jejunostomy - Status post Exploratory laparotomy repair of perforation with stapler and Second look 11/25 found gastric necrosis requiring subtotal gastrectomy and placement of AB Thera VAC dressing, transferred to [facility] 11/28 reexploration with Dinh-en-y esophagojejunostomy, feeding jejunostomy placement diagnostic EGD primary fascial closure. - cont wound care, diet as tolerated, tube feeds as marvin. ISCHEMIC HEPATOPATHY resolving GIB with ANEMIA OF ACUTE BLOOD LOSS EGD, enteroscopy 12/12/2017 unremarkable, colonoscopy 12/13/2017 unremarkable. Bleeding scan did not show any particular site of bleeding Had right upper quadrant ultrasound on 11/27/17 that demonstrated contracted gallbladder with sludge. No evidence of cholecystitis. Echogenicity in right liver related to focal fatty change or altered perfusion, patent vascularity. Protonix per GI. Appreciate general surgery following. Continue pure, thickened liquid diet. ACUTE RENAL FAILURE secondary to ISCHEMIC ATN requiring dialysis HD started 11/26 Nephrology following. Continue hemodialysis per nephrology. KLEBSIELLA ESBL ABD WOUND INFECTION - cont invanz per ID CANDIDEMIA following gastric perforation and gastric ischemia. Blood culture at [facility] in [place] on 11/26 had Starr glabrata. Repeat blood culture is negative. Infectious disease following. S/p micafungin for candidemia. ANEMIA requiring transfusion/THROMBOCYTOPENIA resolved BILATERAL UE DVT U/s 11/26 BUE - thrombus R axillary, brachial and basilic veins and thrombus in left axillary and left brachial veins. Hematology consult was obtained at [facility] and patient was treated with heparin. Continue subcu heparin here. Hemoglobin stable today. Continue to monitor. PRESSURE ULCER OF SACRUM/COCCYX and BUTTOCKS Wound care nursing following. Continue with dressing change and frequent turning. MUSCLE WEAKNESS AND MYOPATHY OF CRITICAL ILLNESS - extremely weak, cont PT,will require placement SEVERE PROTEIN CALORIE MALNUTRITION w bmi 14.5, alb 1.7, w mild dysphagia and s/ p partial gastrectomy, cont thickened diet as tolerated, has poor appetite, supplemental Jejunostomy TF till bmi improves may change to nightly feeds supplementation and oral during daytime if his po intake improves, fu w nutrition and st recommendations HTN - hydralazine and metoprolol HYPOKALEMIA - replace w caution, fu w nephrology LEUKOCYTOSIS - no fever, DYSPHAGIA - asp risk, cont thickened liq per ST,resume oral diet as tolerated DIARRHEA- neg for cdif, prob from abx and nephro tf, immodium not helping, prob due to tube feeding, add florastor, questran DISPO - allen will need placement insurance pending (2) Acute respiratory failure Qualifiers: Respiratory failure complication: hypoxia Qualified Code(s): J96.01 - Acute respiratory failure with hypoxia
[2017-12-31] MEDS: Metoprolol Tartrate 25 MG Tablet PO SCH ×4 (03:00→22:06)
[2017-12-31 04:55] LABS: Baso # (Auto) 0.1 th/mm3 (0.0-0.2); Baso % (Auto) 0.7 % (0.0-2.0); Eos # (Auto) 0.7 th/mm3 (0.0-0.4); Eos % (Auto) 4.3 % (0.0-4.0); Hematocrit 26.4 % (39.0-51.0); Hemoglobin 8.8 gm/dL (13.0-17.0); Lymph # (Auto) 1.1 th/mm3 (1.0-4.8); Lymph % (Auto) 7.2 % (9.0-44.0); Mean Corpuscular HGB Conc 33.3 % (32.0-36.0); Mean Corpuscular Hemoglobin 29.6 pg (27.0-34.0); Mean Corpuscular Volume 88.8 fL (80.0-100.0); Mean Platelet Volume 8.4 fL (7.0-11.0); Mono # (Auto) 1.2 th/mm3 (0.0-0.9); Mono % (Auto) 7.4 % (0.0-8.0); Neut # (Auto) 12.6 th/mm3 (1.8-7.7); Neut % (Auto) 80.4 % (16.0-70.0); Platelet Count 308 th/mm3 (150-450); Red Blood Count 2.97 mil/mm3 (4.50-5.90); Red Cell Distribution Width 16.3 % (11.6-17.2); White Blood Count 15.6 th/mm3 (4.0-11.0)
[2017-12-31 05:23] LABS: Albumin 2.4 g/dL (3.4-5.0); Calcium 7.7 mg/dL (8.5-10.1); Carbon Dioxide 26.4 meq/L (21.0-32.0); Magnesium 2.4 mg/dL (1.5-2.5); Phosphorus 4.3 mg/dL (2.5-4.9)
[2017-12-31 05:25] LABS: Potassium 2.6 meq/L (3.5-5.1)
[2017-12-31] MEDS ORDERED: Potassium Chloride 25 MEQ Effervescent Tablet PO ONE (05:59)
[2017-12-31] MEDS: Cholestyramine Light 4 GM Packet PO SCH ×2 (08:30→22:06)
[2017-12-31] MEDS: hydrALAZINE 50 MG Tablet PO SCH ×3 (08:30→17:22)
[2017-12-31] MEDS: Calcium Acetate 667 MG Capsule PO SCH ×3 (08:30→17:08)
--- NOTE | 2017-12-31 09:56 | P.PNNP ---
Subjective Interval history: Patient was seen in bed, no distress, had complaints of diarrhea last night. Patient last dialyzed Sunday. Patient to be dialyzed tomorrow. Monitor for renal recovery. Patient continues to make urine. Patient is on thickened liquid diet. Patient's K was 2.6 this morning, was given effervescent potassium this morning. Reordered K lab. Patient was on contact precautions, per nurse Klebsiella found around J-tube, patient on Ertapenem. <Jocelyn Crews - Last Filed: 12/31/17 10:13> Physical Exam Vital signs: Vital Signs 12/30/17 12:00 12/30/17 16:00 12/30/17 20:00 Temperature 98 F 98.3 F 97.7 F Pulse Rate 103 H 106 H 100 H Respiratory Rate 18 18 18 Blood Pressure 114/64 134/68 117/57 L Pulse Oximetry 100 100 98 12/31/17 00:00 12/31/17 08:00 Temperature 97.3 F L 97.2 F L Pulse Rate 102 H 104 H Respiratory Rate 18 18 Blood Pressure 128/63 125/61 Pulse Oximetry 99 98 Intake & Output 12/30/17 12/31/17 12/31/17 18:59 06:59 18:59 Intake Total 440 / 440 720 / 720 Output Total 500 / 500 Balance -60 / -60 720 / 720 Weight 49.6 kg Intake: IV 200 / 200 Protonix Inj 80 MG In NS Inj 100 / 100 100 ML @ 10 mls/hr IV.CONT Q10H COLE Rx#:[id number] INVanz Inj 500 MG In NS Inj 100 100 / 100 ML @ 200 mls/hr IV.SIG Q24H COLE Rx#:[id number] Oral 240 / 240 20 / 20 Tube Feeding 660 / 660 Tube Irrigant 40 / 40 Output: Urine 500 / 500 Other: # Voids 0 # Bowel Movements 2 # Incontinent Bowel Movements 1 - Constitutional no acute distress, thin - Routine HEENT Exam Head: Present: normocephalic Eye: Present: EOMI, PERRL ENT: Present: mucous membranes moist - Routine Neck Exam Present: trachea midline. Absent: tracheal deviation - Routine Respiratory Exam Present: CTA bilaterally. Absent: accessory muscle use, respiratory distress - Routine Cardiovascular Exam Present: RRR, S1, S2 - Routine Abdominal Exam Present: surgical scars. Absent: distended Comments: J-tube - Routine Neurological Exam Present: alert - Urinary Catheter Management Indwelling Temp Sensing Catheter Cath placed during this visit: no <Jocelyn Crews - Last Filed: 12/31/17 10:13> Vital signs: Vital Signs 12/31/17 12:00 12/31/17 16:00 12/31/17 22:58 Temperature 98.5 F 97.6 F 98.5 F Pulse Rate 95 H 102 H 110 H Respiratory Rate 18 18 16 Blood Pressure 132/66 120/62 117/55 L Pulse Oximetry 100 100 99 01/01/18 04:05 Temperature 98.7 F Pulse Rate 102 H Respiratory Rate 16 Blood Pressure 121/60 Pulse Oximetry Intake & Output 12/31/17 01/01/18 01/01/18 18:59 06:59 18:59 Intake Total 860 / 860 100 / 100 Output Total 300 / 300 Balance 860 / 860 -200 / -200 Weight 51.9 kg Intake: IV 100 / 100 INVanz Inj 500 MG In NS Inj 100 100 / 100 ML @ 200 mls/hr IV.SIG Q24H COLE Rx#:[id number] Tube Feeding 660 / 660 Tube Irrigant 200 / 200 Output: Urine 300 / 300 Other: Date of Last Bowel Movement 12/31/17 # Bowel Movements 2 # Incontinent Bowel Movements 4 - Urinary Catheter Management Indwelling Temp Sensing Catheter Cath placed during this visit: no <Filipe Robertson - Last Filed: 01/01/18 09:12> Assessment and Plan - Assessment (1) JACLYN (acute kidney injury) Code(s): N17.9 - Acute kidney failure, unspecified Status: Acute Plan: Patient dialyzed Sunday. Patient to get dialysis tomorrow. Patient's K was 2.6 this morning, was given effervescent potassium this morning. Reordered K lab. Monitor I & O. Monitor fluid and electrolytes. Monitor for renal recovery. Avoid nephrotoxic agents. (2) Acute respiratory failure Code(s): J96.00 - Acute respiratory failure, unspecified whether with hypoxia or hypercapnia Status: Acute Qualifiers: Respiratory failure complication: hypoxia Qualified Code(s): J96.01 - Acute respiratory failure with hypoxia Plan: Resolved, Extubated, on room air. (3) Gastric perforation Code(s): K25.5 - Chronic or unspecified gastric ulcer with perforation Status : Resolved Plan: s/p surgery. Subtotal gastrectomy in [place]. In [facility] he had: Dinh-en-y esophagojejunostomy, feeding jejunostomy placement, diagnostic EGD, primary fascial closure. Date of procedure: 11/28/17 Negative bleeding scan - follow with GI, surgery. No immediate surgical plans at this point (4) Candidemia Code(s): B37.7 - Candidal sepsis Status: Acute Plan: Blood culture at [facility] in [place] on 11/26 had Starr glabrata. Repeat blood culture is negative. Infectious disease following. S/p micafungin for candidemia. (5) DVT (deep venous thrombosis) Code(s): I82.409 - Acute embolism and thrombosis of unspecified deep veins of unspecified lower extremity Status: Acute Plan: DVT of bilateral upper extremities. (6) Anemia Code(s): D64.9 - Anemia, unspecified Status: Acute Plan: HGB is 8.8. Could be multifactorial. <Jocelyn Crews - Last Filed: 12/31/17 10:13> - Assessment (1) JACLYN (acute kidney injury) Code(s): N17.9 - Acute kidney failure, unspecified Status: Acute (2) Acute respiratory failure Code(s): J96.00 - Acute respiratory failure, unspecified whether with hypoxia or hypercapnia Status: Acute Qualifiers: Qualified Code(s): J96.01 - Acute respiratory failure with hypoxia (3) Gastric perforation Code(s): K25.5 - Chronic or unspecified gastric ulcer with perforation Status : Resolved (4) Candidemia Code(s): B37.7 - Candidal sepsis Status: Acute (5) DVT (deep venous thrombosis) Code(s): I82.409 - Acute embolism and thrombosis of unspecified deep veins of unspecified lower extremity Status: Acute (6) Anemia Code(s): D64.9 - Anemia, unspecified Status: Acute - Attending Attestation patient was seen and examined. Monitor urine output. Replace potassium. Dialysis as needed. <Filipe Robertson - Last Filed: 01/01/18 09:12>
[2017-12-31] MEDS: Collagenase Oint 30 GM Tube TOPICAL SCH (11:59)
--- NOTE | 2017-12-31 12:58 | P.PN ---
Subjective Interval history: Follow-up diarrhea. Still having significant loose stools denies nausea and abdominal pain. Tolerating diet. Has not been out of bed since transferred to the floor. Seen with family. Physical Exam Vital signs: Vital Signs 12/30/17 16:00 12/30/17 20:00 12/31/17 00:00 Temperature 98.3 F 97.7 F 97.3 F L Pulse Rate 106 H 100 H 102 H Respiratory Rate 18 18 18 Blood Pressure 134/68 117/57 L 128/63 Pulse Oximetry 100 98 99 12/31/17 08:00 12/31/17 12:00 Temperature 97.2 F L 98.5 F Pulse Rate 104 H 95 H Respiratory Rate 18 18 Blood Pressure 125/61 132/66 Pulse Oximetry 98 100 Intake & Output 12/30/17 12/31/17 12/31/17 18:59 06:59 18:59 Intake Total 440 / 440 720 / 720 Output Total 500 / 500 Balance -60 / -60 720 / 720 Weight 49.6 kg Intake: IV 200 / 200 Protonix Inj 80 MG In NS Inj 100 / 100 100 ML @ 10 mls/hr IV.CONT Q10H [facility] Rx#:[id number] INVanz Inj 500 MG In NS Inj 100 100 / 100 ML @ 200 mls/hr IV.SIG Q24H [facility] Rx#:[id number] Oral 240 / 240 20 / 20 Tube Feeding 660 / 660 Tube Irrigant 40 / 40 Output: Urine 500 / 500 Other: # Voids 0 Date of Last Bowel Movement 12/31/17 # Bowel Movements 2 # Incontinent Bowel Movements 1 Narrative: thin 47yo aam weak and debilitated aaox3 nad speaks in very soft voice heart s1s2 reg lungs clear no wrr, abd soft nondt jjostomy in place wound w dressing in place ext no edema, no calf tenderness, pulses palp - Urinary Catheter Management Indwelling Temp Sensing Catheter Cath placed during this visit: no Results - Labs CBC & Chem 7: 12/31/17 04:40 12/31/17 04:40 Laboratory Results - last 24 hr 12/30/17 12/31/17 12/31/17 10:38 04:40 04:40 WBC 15.6 H RBC 2.97 L Hgb 8.8 L Hct 26.4 L MCV 88.8 MCH 29.6 MCHC 33.3 RDW 16.3 Plt Count 308 MPV 8.4 Neut % (Auto) 80.4 H Lymph % (Auto) 7.2 L [place] % (Auto) 7.4 Eos % (Auto) 4.3 H Baso % (Auto) 0.7 Neut # (Auto) 12.6 H Lymph # (Auto) 1.1 [place] # (Auto) 1.2 H Eos # (Auto) 0.7 H Baso # (Auto) 0.1 WBC Differential . Differential Comment Auto diff final Sodium 149 H Potassium 2.6 L* Chloride 114 H Carbon Dioxide 26.4 Anion Gap 9 BUN 47 H Creatinine 5.06 H Estimated GFR 15 L Random Glucose 112 H Calcium 7.7 L Phosphorus 4.3 Magnesium 2.4 Albumin 2.4 L Stl C.difficile DNA Amp Negative St C. diff Tox Epid 027 Negative Microbiology 12/30/17 10:38 Stool Stool Occult Blood (DEB) - Final Hemoccult negative - Procedures Jejunostomy tube placement Assessment and Plan - Assessment (1) JACLYN (acute kidney injury) Code(s): N17.9 - Acute kidney failure, unspecified Status: Acute (2) Acute respiratory failure Code(s): J96.00 - Acute respiratory failure, unspecified whether with hypoxia or hypercapnia Status: Acute (3) Gastric perforation Code(s): K25.5 - Chronic or unspecified gastric ulcer with perforation Status : Resolved Plan: . (4) Candidemia Code(s): B37.7 - Candidal sepsis Status: Acute (5) DVT (deep venous thrombosis) Code(s): I82.409 - Acute embolism and thrombosis of unspecified deep veins of unspecified lower extremity Status: Acute (6) Anemia Code(s): D64.9 - Anemia, unspecified Status: Acute - Plan ACUTE METABOLIC ENCEPHALOPATHY w ACUTE DELIRIUM due to critical illness: improving, cont oob w pt, cont st, ot, now can participate ACUTE RESPIRATORY FAILURE /TENSION PNEUMOTHORAX left pigtail chest tube removed 12/18 Extubated 12/22 continue Bronchodilator, Mucolytic and Incentive spirometry. now stable on RA CARDIAC ARREST 11/23/17 PEA arrest due to shock secondary to acute gastric perforation and tension pneumoperitoneum -Currently hemodynamically stable. ANTERIOR GASTRIC PERFORATION with TENSION PNEUMOPERITONEUM/ S/P SUBTOTAL GASTRECTOMY w feeding jejunostomy - Status post Exploratory laparotomy repair of perforation with stapler and Second look 11/25 found gastric necrosis requiring subtotal gastrectomy and placement of AB Thera VAC dressing, transferred to [facility] 11/28 reexploration with Dinh-en-y esophagojejunostomy, feeding jejunostomy placement diagnostic EGD primary fascial closure. - cont wound care, diet as tolerated, tube feeds as marvin. ISCHEMIC HEPATOPATHY resolving GIB with ANEMIA OF ACUTE BLOOD LOSS EGD, enteroscopy 12/12/2017 unremarkable, colonoscopy 12/13/2017 unremarkable. Bleeding scan did not show any particular site of bleeding Had right upper quadrant ultrasound on 11/27/17 that demonstrated contracted gallbladder with sludge. No evidence of cholecystitis. Echogenicity in right liver related to focal fatty change or altered perfusion, patent vascularity. Protonix per GI. Appreciate general surgery following. Continue mechanical soft, thickened liquid diet. ACUTE RENAL FAILURE secondary to ISCHEMIC ATN requiring dialysis HD started 11/26 Nephrology following. Continue hemodialysis per nephrology. KLEBSIELLA ESBL ABD WOUND INFECTION - cont invanz per ID CANDIDEMIA following gastric perforation and gastric ischemia. Blood culture at [facility] in [place] on 11/26 had Starr glabrata. Repeat blood culture is negative. Infectious disease following. S/p micafungin for candidemia. ANEMIA requiring transfusion/THROMBOCYTOPENIA resolved BILATERAL UE DVT U/s 11/26 BUE - thrombus R axillary, brachial and basilic veins and thrombus in left axillary and left brachial veins. Hematology consult was obtained at [facility] and patient was treated with heparin. Continue subcu heparin here. Hemoglobin stable today. Continue to monitor. PRESSURE ULCER OF SACRUM/COCCYX and BUTTOCKS Wound care nursing following. Continue with dressing change and frequent turning. MUSCLE WEAKNESS AND MYOPATHY OF CRITICAL ILLNESS - extremely weak, cont PT,will require placement SEVERE PROTEIN CALORIE MALNUTRITION w bmi 14.5, alb 1.7, w mild dysphagia and s/ p partial gastrectomy, cont thickened diet as tolerated, has poor appetite, supplemental Jejunostomy TF till bmi improves may change to nightly feeds supplementation and oral during daytime if his po intake improves, fu w nutrition and st recommendations HTN - hydralazine and metoprolol HYPOKALEMIA - replace w caution, fu w nephrology. Repeat BMP today LEUKOCYTOSIS - no fever, DYSPHAGIA - asp risk, cont thickened liq per ST,resume oral diet as tolerated DIARRHEA- neg for cdif, prob from abx and nephro tf, immodium not helping, prob due to tube feeding, add florastor, questran. Reconsult dietitian DISPO - will need placement insurance pending (2) Acute respiratory failure Qualifiers: Respiratory failure complication: hypoxia Qualified Code(s): J96.01 - Acute respiratory failure with hypoxia
[2017-12-31 14:11] LABS: Carbon Dioxide 21.7 meq/L (21.0-32.0)
[2017-12-31 14:17] LABS: Potassium 2.6 meq/L (3.5-5.1)
[2017-12-31] MEDS ORDERED: Potassium Bicarbonate 25 MEQ Effervescent Tablet J-TUBE ONE (16:00)
--- NOTE | 2017-12-31 16:23 | P.DIET ---
Nutritional Evaluation Type of nutrition evaluation: follow-up Nutrition consult regarding: Tube Feeding, TPN/PPN Nutrition screening: [facility] Screening comments: 12/25 [place] [facility] for post gastrectomy diet 12/31 TF causing diarrhea? Subjective Subjective Comments: c/o diarrhea Objective - Diagnosis Gastroenteritis - Objective % IBW: 92 (IBW = 190#) Body Weight Used for Calculations: Actual (79.4) Energy Needs - Lower Range (kCal/kg): 28 Energy Needs - Upper Range (kCal/kg): 32 Lower Limit kCal/kg (kCals): 2,223 Upper Limit kCal/kg (kCals): 2,541 Lower Limit Protein Factor (Grams per Kg): 1.2 Upper Limit Protein Factor (Grams per Kg): 1.5 Lower Protein Needs (Protein): 95 Upper Protein Needs (Protein): 119 Dietitian Reviewed in Medical Record: Current diet, Curent medications, Intake & Output, Labs, Medical history Diet Order: Renal: 2 gm Na, mech soft, necter thickened liquids Oral Diet Intake Amount: Poor <50% Wound Care Note: see WOCN dated 12/25 Objective Comments: see recent extensive hx in H&P Feeding - Current Tube Feeding Tube Feeding Product: Nepro Tube Feeding Rate: 55 (mls/hr) Tube Feeding Route: jejunostomy Assessment Assessment: Pt is unable to meet needs with po intake alone at this time. He has had a long hospitalization with significant weight loss and BMI = 14. Wt changes noted. CBW = 49.6kg (admission wt was 93.7 kg). Can this possibly be correct or related to fluid/ wound vac/ inaccuracy in weighing. A Post gastrectomy diet usually consists of 6 small meals per day, only 4 ozs of fluid at meals, other fluids 1 hour before or after meals. Food needs to be well chewed. Of note: the hospital does not provide an option for 6 small meals a day. Nursing would need to order snacks and take them off the tray, put them in the refrigerator OR Ensure can be given between meals, but again nursing needs to control that. Nursing is currently recording under Feeding Assessment, that the pt is npo. There is a po diet ordered. 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 Pt would benefit from Avelino supplement bid to aid in wound healing. If Nepro is causing diarrhea, recommend trial of Vital 1.5 @ 65 mls/hr to provide 2340 kcals, 105 gms protein and 1192 mls of free water. That will provide 47 kcals and 2.1 gms protein per kg of current bw. Recommendations: 1. Trial Vital 1.5 @ 65 mls/hr goal 2. Continuous TF until pt can consistently eat >50% of a meal, then transition to night time TF until BMI >18 3. Change Ensure to Ensure Enlive and give between meals. 4. No fluids on meal trays 5. Continue Avelino Dietitian to Monitor: Lab values, Intake & Output, Diet tolerance, Tube feeding tolerance, Weight change, PO Intake, Wound/skin status, Swallow recommendations , Medical course
[2017-12-31] MEDS: Ertapenem Inj 500 MG in Sodium Chlor 0.9% Inj 100 ML IV.SIG SCH (17:22)
--- NOTE | 2017-12-31 17:31 | P.PNGS ---
Subjective Patient reports: feels better (Woke up this morning feeling a little bit depressed. He did stand up with physical therapy for a couple of minutes. He continues to have some diarrhea.) Physical Exam Vital signs: Vital Signs 12/30/17 20:00 12/31/17 00:00 12/31/17 08:00 Temperature 97.7 F 97.3 F L 97.2 F L Pulse Rate 100 H 102 H 104 H Respiratory Rate 18 18 18 Blood Pressure 117/57 L 128/63 125/61 Pulse Oximetry 98 99 98 12/31/17 12:00 Temperature 98.5 F Pulse Rate 95 H Respiratory Rate 18 Blood Pressure 132/66 Pulse Oximetry 100 Intake & Output 12/30/17 12/31/17 12/31/17 18:59 06:59 18:59 Intake Total 440 / 440 720 / 720 Output Total 500 / 500 Balance -60 / -60 720 / 720 Weight 49.6 kg Intake: IV 200 / 200 Protonix Inj 80 MG In NS Inj 100 / 100 100 ML @ 10 mls/hr IV.CONT Q10H [facility] Rx#:[id number] INVanz Inj 500 MG In NS Inj 100 100 / 100 ML @ 200 mls/hr IV.SIG Q24H [facility] Rx#:[id number] Oral 240 / 240 20 / 20 Tube Feeding 660 / 660 Tube Irrigant 40 / 40 Output: Urine 500 / 500 Other: # Voids 0 Date of Last Bowel Movement 12/31/17 # Bowel Movements 2 # Incontinent Bowel Movements 1 Narrative: He is free of oxygen. He is breathing comfortably. Is not appear to be in any pain. His abdomen is soft and nondistended and nontender. The jejunostomy tube is in place in the left upper quadrant. His midline incision is nearly completely healed. His old drain site is dry and well-healed. All dressings were removed from his abdomen. His extremities are thin and nonedematous. He does have some muscular atrophy. - Urinary Catheter Management Indwelling Temp Sensing Catheter Cath placed during this visit: no Results - Labs 12/31/17 04:40 12/31/17 13:15 Laboratory Results - last 24 hr 12/30/17 12/31/17 12/31/17 10:38 04:40 04:40 WBC 15.6 H RBC 2.97 L Hgb 8.8 L Hct 26.4 L MCV 88.8 MCH 29.6 MCHC 33.3 RDW 16.3 Plt Count 308 MPV 8.4 Neut % (Auto) 80.4 H Lymph % (Auto) 7.2 L [place] % (Auto) 7.4 Eos % (Auto) 4.3 H Baso % (Auto) 0.7 Neut # (Auto) 12.6 H Lymph # (Auto) 1.1 [place] # (Auto) 1.2 H Eos # (Auto) 0.7 H Baso # (Auto) 0.1 WBC Differential . Differential Comment Auto diff final Sodium 149 H Potassium 2.6 L* Chloride 114 H Carbon Dioxide 26.4 Anion Gap 9 BUN 47 H Creatinine 5.06 H Estimated GFR 15 L Random Glucose 112 H Calcium 7.7 L Phosphorus 4.3 Magnesium 2.4 Albumin 2.4 L Stl C.difficile DNA Amp Negative St C. diff Tox Epid 027 Negative 12/31/17 13:15 WBC RBC Hgb Hct MCV MCH MCHC RDW Plt Count MPV Neut % (Auto) Lymph % (Auto) [place] % (Auto) Eos % (Auto) Baso % (Auto) Neut # (Auto) Lymph # (Auto) [place] # (Auto) Eos # (Auto) Baso # (Auto) WBC Differential Differential Comment Sodium 149 H Potassium 2.6 L* Chloride 114 H Carbon Dioxide 21.7 Anion Gap 13 BUN 52 H Creatinine 5.08 H Estimated GFR 15 L Random Glucose 122 H Calcium 8.0 L Phosphorus Magnesium Albumin Stl C.difficile DNA Amp St C. diff Tox Epid 027 - Imaging Imaging: ITS Impressions Head MRI 12/03/17 00:00 CONCLUSION: 1. Minimal nonspecific periventricular white matter changes. 2. No restricted diffusion to suggest an acute ischemic event. 3. No evidence for significant ischemic changes. Chest CT 12/04/17 00:06 CONCLUSION: 1. Left greater than right pleural effusions and basilar atelectasis. 2. No hemorrhage or hematoma demonstrated. 3. Distended and fluid-filled esophagus. No wall thickening. Patient is status post gastrectomy. Nasogastric tube is at the GE junction. 4. Body wall edema/anasarca. Abdomen X-Ray 12/08/17 00:00 CONCLUSION: 1. 2 left-sided abdominal catheters. 2. Nonspecific bowel gas pattern. Abdomen/Pelvis CT 12/13/17 00:00 CONCLUSION: 1. New proximal small bowel dilatation. No discrete transition point. Contrast is seen in the distal small bowel. Findings may represent ileus or partial obstruction. 2. Postsurgical findings with surgical drains in the left upper quadrant. Free fluid is seen in the left upper quadrant. Loculated rounded 5 cm area of fluid with thin peripheral enhancement also noted just inferior to the surgical drains. 3. Prominent left lower lobe pulmonary consolidation and small left pleural effusion. GI Bleed Scan Nuclear Medicine 12/15/17 00:00 CONCLUSION: No active bleeding demonstrated. Chest X-Ray 12/22/17 00:00 CONCLUSION: 1. Persistent patchy infiltrate within the left lung base. 2. Multiple tubes and lines are stable. The nasogastric tube remains with its tip in the distal esophagus. New right subclavian central line has its tip in superior vena cava. No pneumothorax is noted. Small Bowel X-Ray 12/22/17 00:00 CONCLUSION: No evidence of bowel obstruction. There is mild diffuse small bowel wall thickening identified within the jejunum and ileum consistent with possible edema given the appearance on initial imaging. Drain overlying the left lower quadrant. Jejunostomy Tube Placement 12/28/17 00:00 CONCLUSION: 1. Uncomplicated placement of a new 16 Greek jejunostomy catheter through existing tract. Assessment and Plan - Assessment (1) Gastric perforation Code(s): K25.5 - Chronic or unspecified gastric ulcer with perforation Status : Resolved Plan: 47yo male s/p Exlap and gastrectomy for gastric perforation, s/p esophagojejunostomy at [facility] soft/nectar thickened liquids + Ensure-- will need to eat small more frequent meals -Dietary consulted for post-gastrectomy meal plan -Keep J tube in place ---replaced today -HD per Nephrology -Needs aggressive PT -GS will see PRN over the weekend; please call with any questions - Plan I personally evaluated the patient in room 1730. Patient was awake and alert and talkative and interactive. He had no complaints of pain. His abdominal exam was benign. His midline incision is nearly completely healed. The drain which had been in since his return from [facility] was only draining yellow serous fluid and it was removed. A dry dressing was placed. His J-tube site appeared benign. His extremities were significantly less edematous. The exam, history, and the medical decision-making described in the above note were completed with the assistance of the mid-level provider. I reviewed and agree with the findings presented. I attest that I had a [id number] encounter with the patient on the same day, and personally performed and documented my assessment and findings in the medical record. 12/31/2017 The patient is postop total gastrectomy and then reconstruction with esophagojejunostomy and has a feeding jejunostomy tube. He is continuing to recover from multisystem organ failure. He is making some urine. His BUN and creatinine remain elevated. Continues to be hypokalemic and is receiving supplements. He is eating and drinking what he can and is having diarrhea. He continues to be supplemented with tube feeding via the jejunostomy tube. His aunt and uncle are at his bedside. I have provided encouragement and again stressed to him how far he is calm. He understands having a down day is totally acceptable given everything he has been through. We will continue to follow along peripherally seeing him a couple times a week. If there is any surgical intervention that is required we have not seen the patient please call me at [phone].
[2017-12-31 20:16] LABS: Calcium 7.8 mg/dL (8.5-10.1); Carbon Dioxide 22.9 meq/L (21.0-32.0)
[2017-12-31 20:26] LABS: Potassium 2.9 meq/L (3.5-5.1)
[2017-12-31] MEDS ORDERED: Potassium Chloride 25 MEQ Effervescent Tablet J-TUBE ONE (21:00)
[2018-01-01] MEDS: Metoprolol Tartrate 25 MG Tablet PO SCH ×5 (05:03→21:24)
[2018-01-01 05:53] LABS: Baso # (Auto) 0.1 th/mm3 (0.0-0.2); Baso % (Auto) 0.9 % (0.0-2.0); Eos # (Auto) 0.7 th/mm3 (0.0-0.4); Eos % (Auto) 5.3 % (0.0-4.0); Hematocrit 23.6 % (39.0-51.0); Hemoglobin 8.2 gm/dL (13.0-17.0); Lymph # (Auto) 1.1 th/mm3 (1.0-4.8); Lymph % (Auto) 7.7 % (9.0-44.0); Mean Corpuscular HGB Conc 34.6 % (32.0-36.0); Mean Corpuscular Hemoglobin 30.4 pg (27.0-34.0); Mean Corpuscular Volume 87.9 fL (80.0-100.0); Mean Platelet Volume 8.6 fL (7.0-11.0); Neut # (Auto) 10.8 th/mm3 (1.8-7.7); Neut % (Auto) 79.1 % (16.0-70.0); Platelet Count 251 th/mm3 (150-450); Red Blood Count 2.69 mil/mm3 (4.50-5.90); Red Cell Distribution Width 16.7 % (11.6-17.2); White Blood Count 13.7 th/mm3 (4.0-11.0)
[2018-01-01 06:04] LABS: Calcium 7.8 mg/dL (8.5-10.1); Phosphorus 4.3 mg/dL (2.5-4.9)
[2018-01-01 06:26] LABS: Potassium 2.9 meq/L (3.5-5.1)
[2018-01-01] MEDS: Cholestyramine Light 4 GM Packet PO SCH ×2 (08:59→21:25)
[2018-01-01] MEDS: Calcium Acetate 667 MG Capsule PO SCH ×3 (09:00→18:10)
[2018-01-01] MEDS: hydrALAZINE 50 MG Tablet PO SCH ×3 (09:00→18:09)
--- NOTE | 2018-01-01 09:17 | P.PNNP ---
Subjective Interval history: Saw patient, no distress. Patient stated he has had several loose stools today, stated was the same as yesterday. Patient's diet was changed yesterday to tube feeding with tray diet. Patient reported he had an appetite but did not eat his breakfast. Patient passed swallowing test. K was 2.9 and Na 150 today, K effervescent was reordered along with D5W with K 20mEq and 300 mL free fluid Q6H in J-tube. Patient's renal function has improved today, will hold off on dialysis and monitor labs. Patient stated he has been making urine but saw no output documented yesterday. <MarsJocelyn - Last Filed: 01/01/18 09:44> Physical Exam Vital signs: Vital Signs 12/31/17 12:00 12/31/17 16:00 12/31/17 22:58 Temperature 98.5 F 97.6 F 98.5 F Pulse Rate 95 H 102 H 110 H Respiratory Rate 18 18 16 Blood Pressure 132/66 120/62 117/55 L Pulse Oximetry 100 100 99 01/01/18 04:05 Temperature 98.7 F Pulse Rate 102 H Respiratory Rate 16 Blood Pressure 121/60 Pulse Oximetry Intake & Output 12/31/17 01/01/18 01/01/18 18:59 06:59 18:59 Intake Total 860 / 860 100 / 100 Output Total 300 / 300 Balance 860 / 860 -200 / -200 Weight 51.9 kg Intake: IV 100 / 100 INVanz Inj 500 MG In NS Inj 100 100 / 100 ML @ 200 mls/hr IV.SIG Q24H [facility] Rx#:[id number] Tube Feeding 660 / 660 Tube Irrigant 200 / 200 Output: Urine 300 / 300 Other: Date of Last Bowel Movement 12/31/17 # Bowel Movements 2 # Incontinent Bowel Movements 4 - Constitutional no acute distress, thin - Routine HEENT Exam Eye: Present: EOMI, PERRL - Routine Neck Exam Present: trachea midline. Absent: JVD, tracheal deviation - Routine Respiratory Exam Present: CTA bilaterally. Absent: accessory muscle use, respiratory distress - Routine Cardiovascular Exam Present: RRR, S1, S2 - Routine Abdominal Exam Present: surgical scars. Absent: tenderness, distended - Routine Extremities Exam Present: pulses intact, vascular access. Absent: cyanosis, edema - Routine Neurological Exam Present: alert, oriented X3 - Urinary Catheter Management Indwelling Temp Sensing Catheter Cath placed during this visit: no <Jocelyn Crews - Last Filed: 01/01/18 09:44> Vital signs: Vital Signs 01/01/18 12:00 01/01/18 16:00 01/01/18 20:00 Temperature 98.6 F 97.2 F L 98.5 F Pulse Rate 96 H 96 H 104 H Respiratory Rate 18 18 16 Blood Pressure 122/60 119/58 L 97/53 L Pulse Oximetry 100 99 99 01/02/18 00:00 01/02/18 08:00 Temperature 98.1 F 97.9 F Pulse Rate 96 H 101 H Respiratory Rate 15 19 Blood Pressure 107/55 L 114/55 L Pulse Oximetry 99 99 Intake & Output 01/01/18 01/02/18 01/02/18 18:59 06:59 18:59 Intake Total 1540 / 1540 2830 / 2830 100 / 100 Balance 1540 / 1540 2830 / 2830 100 / 100 Weight 59.1 kg Intake: IV 1000 / 1000 100 / 100 D5W + KCL 20 mEq Inj 1,000 ML @ 1000 / 1000 75 mls/hr IV.CONT .[id number] [facility] Rx#:[id number] INVanz Inj 500 MG In NS Inj 100 100 / 100 ML @ 200 mls/hr IV.SIG Q24H [facility] Rx#:[id number] Oral 360 / 360 480 / 480 Tube Feeding 780 / 780 950 / 950 Tube Irrigant 200 / 200 Water Bolus Amount 200 / 200 400 / 400 Other: # Voids 3 3 Date of Last Bowel Movement 01/01/18 01/02/18 # Bowel Movements 7 3 # Oral Regurgitations 1 - Urinary Catheter Management Indwelling Temp Sensing Catheter Cath placed during this visit: no <Filipe Robertson - Last Filed: 01/02/18 10:15> Assessment and Plan - Assessment (1) JACLYN (acute kidney injury) Code(s): N17.9 - Acute kidney failure, unspecified Status: Acute Plan: Patient last dialyzed Sunday. Patient's renal function has improved today. GFR is 16 and Creatinine is 4.91. Will hold off on dialysis today and monitor labs to determine if dialysis is needed tomorrow. K was 2.9 and Na 150 today, K effervescent was reordered along with D5W with K 20mEq and 300 mL free fluid Q6H in J-tube. Monitor for renal recovery. Avoid nephrotoxic agents. Monitor I & O. Monitor fluid and electrolytes. (2) Acute respiratory failure Code(s): J96.00 - Acute respiratory failure, unspecified whether with hypoxia or hypercapnia Status: Acute Qualifiers: Respiratory failure complication: hypoxia Qualified Code(s): J96.01 - Acute respiratory failure with hypoxia Plan: Resolved, Extubated, on room air. (3) Gastric perforation Code(s): K25.5 - Chronic or unspecified gastric ulcer with perforation Status : Resolved Plan: s/p surgery. Subtotal gastrectomy in [place]. In [facility] he had: Dinh-en-y esophagojejunostomy, feeding jejunostomy placement, diagnostic EGD, primary fascial closure. Date of procedure: 11/28/17 Negative bleeding scan - follow with GI, surgery. No immediate surgical plans at this point (4) Candidemia Code(s): B37.7 - Candidal sepsis Status: Acute Plan: Blood culture at [facility] in [place] on 11/26 had Starr glabrata. Repeat blood culture is negative. Infectious disease following. S/p micafungin for candidemia. (5) DVT (deep venous thrombosis) Code(s): I82.409 - Acute embolism and thrombosis of unspecified deep veins of unspecified lower extremity Status: Acute Plan: DVT of bilateral upper extremities. Patient gets SubQ heparin Q12H. (6) Anemia Code(s): D64.9 - Anemia, unspecified Status: Acute Plan: HGB is 8.2. Could be multifactorial. <Jocelyn Crews - Last Filed: 01/01/18 09:44> - Assessment (1) JACLYN (acute kidney injury) Code(s): N17.9 - Acute kidney failure, unspecified Status: Acute (2) Acute respiratory failure Code(s): J96.00 - Acute respiratory failure, unspecified whether with hypoxia or hypercapnia Status: Acute Qualifiers: Respiratory failure complication: hypoxia Qualified Code(s): J96.01 - Acute respiratory failure with hypoxia (3) Gastric perforation Code(s): K25.5 - Chronic or unspecified gastric ulcer with perforation Status : Resolved (4) Candidemia Code(s): B37.7 - Candidal sepsis Status: Acute (5) DVT (deep venous thrombosis) Code(s): I82.409 - Acute embolism and thrombosis of unspecified deep veins of unspecified lower extremity Status: Acute (6) Anemia Code(s): D64.9 - Anemia, unspecified Status: Acute - Attending Attestation patient was seen and examined. Creatinine is better. Replace potassium. Started D5W for hypernatremia. <Filipe Robertson - Last Filed: 01/02/18 10:15>
[2018-01-01] MEDS: Collagenase Oint 30 GM Tube TOPICAL SCH (13:19)
--- NOTE | 2018-01-01 13:30 | P.PNID ---
Subjective Remarks: Patient is awake. looks a little more up beat. No distress. Up in bedside chair. Solid diet on tray. Jejunal feeding tube noted to have fallen off. Had a new surgeon tube inserted. Afebrile. Continues to have poor renal function. Antibiotics: Ertapenem. Past Medical History: Reviewed Allergies/Adverse Reactions: Allergies No Known Allergies Allergy (Verified 11/22/17 02:38) Objective Vital Signs 12/31/17 16:00 12/31/17 22:58 01/01/18 04:05 Temperature 97.6 F 98.5 F 98.7 F Pulse Rate 102 H 110 H 102 H Respiratory Rate 18 16 16 Blood Pressure 120/62 117/55 L 121/60 Pulse Oximetry 100 99 01/01/18 08:00 01/01/18 12:00 Temperature 97.9 F 98.6 F Pulse Rate 100 H 96 H Respiratory Rate 19 18 Blood Pressure 143/65 H 122/60 Pulse Oximetry 100 100 Intake & Output 12/31/17 01/01/18 01/01/18 18:59 06:59 18:59 Intake Total 860 / 860 100 / 100 Output Total 300 / 300 Balance 860 / 860 -200 / -200 Weight 51.9 kg Intake: IV 100 / 100 INVanz Inj 500 MG In NS Inj 100 100 / 100 ML @ 200 mls/hr IV.SIG Q24H [facility] Rx#:[id number] Tube Feeding 660 / 660 Tube Irrigant 200 / 200 Output: Urine 300 / 300 Other: Date of Last Bowel Movement 12/31/17 # Bowel Movements 2 # Incontinent Bowel Movements 4 12/30/17 10:38 Stool Stool Occult Blood (DEB) - Final Hemoccult negative Lab - Hematology Results 12/31/17 01/01/18 04:40 05:30 WBC 15.6 H 13.7 H RBC 2.97 L 2.69 L Hgb 8.8 L 8.2 L Hct 26.4 L 23.6 L MCV 88.8 87.9 MCH 29.6 30.4 MCHC 33.3 34.6 RDW 16.3 16.7 Plt Count 308 251 MPV 8.4 8.6 Neut % (Auto) 80.4 H 79.1 H Lymph % (Auto) 7.2 L 7.7 L Real % (Auto) 7.4 7.0 Eos % (Auto) 4.3 H 5.3 H Baso % (Auto) 0.7 0.9 Neut # (Auto) 12.6 H 10.8 H Lymph # (Auto) 1.1 1.1 Real # (Auto) 1.2 H 1.0 H Eos # (Auto) 0.7 H 0.7 H Baso # (Auto) 0.1 0.1 WBC Differential . . Differential Comment Auto diff final Auto diff final Lab - Chemistry Results 12/31/17 12/31/17 12/31/17 04:40 13:15 18:57 Sodium 149 H 149 H 147 H Potassium 2.6 L* 2.6 L* 2.9 L* Chloride 114 H 114 H 114 H Carbon Dioxide 26.4 21.7 22.9 Anion Gap 9 13 10 BUN 47 H 52 H 57 H Creatinine 5.06 H 5.08 H 5.22 H Estimated GFR 15 L 15 L 14 L Random Glucose 112 H 122 H 109 H Calcium 7.7 L 8.0 L 7.8 L Phosphorus 4.3 Magnesium 2.4 Albumin 2.4 L 01/01/18 05:30 Sodium 150 H Potassium 2.9 L* Chloride 116 H Carbon Dioxide 24.0 Anion Gap 10 BUN 61 H Creatinine 4.91 H Estimated GFR 16 L Random Glucose 110 H Calcium 7.8 L Phosphorus 4.3 Magnesium Albumin Imaging: ITS Impressions Head MRI 12/03/17 00:00 CONCLUSION: 1. Minimal nonspecific periventricular white matter changes. 2. No restricted diffusion to suggest an acute ischemic event. 3. No evidence for significant ischemic changes. Chest CT 12/04/17 00:06 CONCLUSION: 1. Left greater than right pleural effusions and basilar atelectasis. 2. No hemorrhage or hematoma demonstrated. 3. Distended and fluid-filled esophagus. No wall thickening. Patient is status post gastrectomy. Nasogastric tube is at the GE junction. 4. Body wall edema/anasarca. Abdomen X-Ray 12/08/17 00:00 CONCLUSION: 1. 2 left-sided abdominal catheters. 2. Nonspecific bowel gas pattern. Abdomen/Pelvis CT 12/13/17 00:00 CONCLUSION: 1. New proximal small bowel dilatation. No discrete transition point. Contrast is seen in the distal small bowel. Findings may represent ileus or partial obstruction. 2. Postsurgical findings with surgical drains in the left upper quadrant. Free fluid is seen in the left upper quadrant. Loculated rounded 5 cm area of fluid with thin peripheral enhancement also noted just inferior to the surgical drains. 3. Prominent left lower lobe pulmonary consolidation and small left pleural effusion. GI Bleed Scan Nuclear Medicine 12/15/17 00:00 CONCLUSION: No active bleeding demonstrated. Chest X-Ray 12/22/17 00:00 CONCLUSION: 1. Persistent patchy infiltrate within the left lung base. 2. Multiple tubes and lines are stable. The nasogastric tube remains with its tip in the distal esophagus. New right subclavian central line has its tip in superior vena cava. No pneumothorax is noted. Small Bowel X-Ray 12/22/17 00:00 CONCLUSION: No evidence of bowel obstruction. There is mild diffuse small bowel wall thickening identified within the jejunum and ileum consistent with possible edema given the appearance on initial imaging. Drain overlying the left lower quadrant. Jejunostomy Tube Placement 12/28/17 00:00 CONCLUSION: 1. Uncomplicated placement of a new 16 Armenian jejunostomy catheter through existing tract. Physical Exam: GENERAL: Awake and alert. HEENT: EOMI, ASHKAN. Mucosa is moist. NECK: Supple. LUNGS: Decreased breath sounds at bases HEART: Tachycardic nl S1, S2. No murmur. ABDOMEN: Decreased bowel sounds. Abdominal incision intact. EXTREMITIES: No clubbing or cyanosis. No edema. SKIN: No diffuse rash. NEUROLOGIC: Nonfocal. PSYCHIATRIC: calm LINES: No evidence of infection Assessment and Plan - Plan IMPRESSION: Candidemia following gastric perforation and gastric ischemia. Blood culture at [facility] in [place] on 11/26 had Starr glabrata. Repeat blood culture negative. treated. Status post abdominal surgery. ? abdominal wall infection at jejunal feeding tube site. Klebsiella ESBL. Leukocytosis, WBC decreasing. Fevers better Acute respiratory failure. Extubated. Possible Aspiration. Acute kidney disease. - On HD Recent cardiac arrest. Abx associated diarrhea, bowel wall thickening c.diff neg. Clinically appears stable. RECOMMENDATIONS: Continue Ertapenem. Monitor white blood cell count. Discussed with step mom. Patient encouraged to eat to improve his nutrition.
--- NOTE | 2018-01-01 14:01 | P.PN ---
Subjective Interval history: Follow-up diarrhea and renal failure. Continues to have loose stools. Improved exercise tolerance was able to ambulate few steps Physical Exam Vital signs: Vital Signs 12/31/17 16:00 12/31/17 22:58 01/01/18 04:05 Temperature 97.6 F 98.5 F 98.7 F Pulse Rate 102 H 110 H 102 H Respiratory Rate 18 16 16 Blood Pressure 120/62 117/55 L 121/60 Pulse Oximetry 100 99 01/01/18 08:00 01/01/18 12:00 Temperature 97.9 F 98.6 F Pulse Rate 100 H 96 H Respiratory Rate 19 18 Blood Pressure 143/65 H 122/60 Pulse Oximetry 100 100 Intake & Output 12/31/17 01/01/18 01/01/18 18:59 06:59 18:59 Intake Total 860 / 860 100 / 100 Output Total 300 / 300 Balance 860 / 860 -200 / -200 Weight 51.9 kg Intake: IV 100 / 100 INVanz Inj 500 MG In NS Inj 100 100 / 100 ML @ 200 mls/hr IV.SIG Q24H [facility] Rx#:[id number] Tube Feeding 660 / 660 Tube Irrigant 200 / 200 Output: Urine 300 / 300 Other: Date of Last Bowel Movement 12/31/17 # Bowel Movements 2 # Incontinent Bowel Movements 4 Narrative: thin 47yo aam weak and debilitated aaox3 nad speaks in very soft voice heart s1s2 reg lungs clear no wrr, abd soft nondt jjostomy in place wound w dressing in place ext no edema, no calf tenderness, pulses palp - Urinary Catheter Management Indwelling Temp Sensing Catheter Cath placed during this visit: no Results - Labs CBC & Chem 7: 01/01/18 05:30 01/01/18 05:30 Laboratory Results - last 24 hr 12/31/17 12/31/17 01/01/18 13:15 18:57 05:30 WBC 13.7 H RBC 2.69 L Hgb 8.2 L Hct 23.6 L MCV 87.9 MCH 30.4 MCHC 34.6 RDW 16.7 Plt Count 251 MPV 8.6 Neut % (Auto) 79.1 H Lymph % (Auto) 7.7 L [place] % (Auto) 7.0 Eos % (Auto) 5.3 H Baso % (Auto) 0.9 Neut # (Auto) 10.8 H Lymph # (Auto) 1.1 [place] # (Auto) 1.0 H Eos # (Auto) 0.7 H Baso # (Auto) 0.1 WBC Differential . Differential Comment Auto diff final Sodium 149 H 147 H Potassium 2.6 L* 2.9 L* Chloride 114 H 114 H Carbon Dioxide 21.7 22.9 Anion Gap 13 10 BUN 52 H 57 H Creatinine 5.08 H 5.22 H Estimated GFR 15 L 14 L Random Glucose 122 H 109 H Calcium 8.0 L 7.8 L Phosphorus 01/01/18 05:30 WBC RBC Hgb Hct MCV MCH MCHC RDW Plt Count MPV Neut % (Auto) Lymph % (Auto) [place] % (Auto) Eos % (Auto) Baso % (Auto) Neut # (Auto) Lymph # (Auto) [place] # (Auto) Eos # (Auto) Baso # (Auto) WBC Differential Differential Comment Sodium 150 H Potassium 2.9 L* Chloride 116 H Carbon Dioxide 24.0 Anion Gap 10 BUN 61 H Creatinine 4.91 H Estimated GFR 16 L Random Glucose 110 H Calcium 7.8 L Phosphorus 4.3 - Procedures Jejunostomy tube placement Assessment and Plan - Assessment (1) JACLYN (acute kidney injury) Code(s): N17.9 - Acute kidney failure, unspecified Status: Acute (2) Acute respiratory failure Code(s): J96.00 - Acute respiratory failure, unspecified whether with hypoxia or hypercapnia Status: Acute (3) Gastric perforation Code(s): K25.5 - Chronic or unspecified gastric ulcer with perforation Status : Resolved (4) Candidemia Code(s): B37.7 - Candidal sepsis Status: Acute (5) DVT (deep venous thrombosis) Code(s): I82.409 - Acute embolism and thrombosis of unspecified deep veins of unspecified lower extremity Status: Acute (6) Anemia Code(s): D64.9 - Anemia, unspecified Status: Acute - Plan ACUTE METABOLIC ENCEPHALOPATHY w ACUTE DELIRIUM due to critical illness: Resolving, cont oob w pt, cont st, ot, now can participate ACUTE RESPIRATORY FAILURE /TENSION PNEUMOTHORAX left pigtail chest tube removed 12/18 Extubated 12/22 continue Bronchodilator, Mucolytic and Incentive spirometry. now stable on RA CARDIAC ARREST 11/23/17 PEA arrest due to shock secondary to acute gastric perforation and tension pneumoperitoneum -Currently hemodynamically stable. ANTERIOR GASTRIC PERFORATION with TENSION PNEUMOPERITONEUM/ S/P SUBTOTAL GASTRECTOMY w feeding jejunostomy - Status post Exploratory laparotomy repair of perforation with stapler and Second look 11/25 found gastric necrosis requiring subtotal gastrectomy and placement of AB Thera VAC dressing, transferred to [facility] 11/28 reexploration with Dinh-en-y esophagojejunostomy, feeding jejunostomy placement diagnostic EGD primary fascial closure. - cont wound care, diet as tolerated, tube feeds as marvin. ISCHEMIC HEPATOPATHY resolving GIB with ANEMIA OF ACUTE BLOOD LOSS EGD, enteroscopy 12/12/2017 unremarkable, colonoscopy 12/13/2017 unremarkable. Bleeding scan did not show any particular site of bleeding Had right upper quadrant ultrasound on 11/27/17 that demonstrated contracted gallbladder with sludge. No evidence of cholecystitis. Echogenicity in right liver related to focal fatty change or altered perfusion, patent vascularity. Protonix per GI. Appreciate general surgery following. Continue mechanical soft, thickened liquid diet. ACUTE RENAL FAILURE secondary to ISCHEMIC ATN requiring dialysis HD started 11/26 Nephrology following. Continue hemodialysis per nephrology. KLEBSIELLA ESBL ABD WOUND INFECTION - cont invanz per ID CANDIDEMIA following gastric perforation and gastric ischemia. Blood culture at [facility] in [place] on 11/26 had Starr glabrata. Repeat blood culture is negative. Infectious disease following. S/p micafungin for candidemia. ANEMIA requiring transfusion/THROMBOCYTOPENIA resolved BILATERAL UE DVT U/s 11/26 BUE - thrombus R axillary, brachial and basilic veins and thrombus in left axillary and left brachial veins. Hematology consult was obtained at [facility] and patient was treated with heparin. Continue subcu heparin here. Hemoglobin stable today. Continue to monitor. PRESSURE ULCER OF SACRUM/COCCYX and BUTTOCKS Wound care nursing following. Continue with dressing change and frequent turning. MUSCLE WEAKNESS AND MYOPATHY OF CRITICAL ILLNESS - extremely weak, cont PT,will require placement SEVERE PROTEIN CALORIE MALNUTRITION w bmi 14.5, alb 1.7, w mild dysphagia and s/ p partial gastrectomy, cont thickened diet as tolerated, has poor appetite, supplemental Jejunostomy TF till bmi improves may change to nightly feeds supplementation and oral during daytime if his po intake improves, fu w nutrition and st recommendations HTN - hydralazine and metoprolol HYPOKALEMIA - replace w caution, fu w nephrology. Repeat BMP in the morning LEUKOCYTOSIS - no fever, DYSPHAGIA - asp risk, cont thickened liq per ST,resume oral diet as tolerated DIARRHEA- neg for cdif, prob from abx and nephro tf, immodium not helping, prob due to tube feeding, added florastor, questran. Reconsult dietitian switched to Vital DISPO - will need placement insurance pending (2) Acute respiratory failure Qualifiers: Respiratory failure complication: hypoxia Qualified Code(s): J96.01 - Acute respiratory failure with hypoxia
--- NOTE | 2018-01-01 15:02 | P.PNGS ---
Subjective Interval history: Resting in bed In better spirits today Stood and used walker to take a few steps Still with low appetite Physical Exam Vital signs: Vital Signs 12/31/17 16:00 12/31/17 22:58 01/01/18 04:05 Temperature 97.6 F 98.5 F 98.7 F Pulse Rate 102 H 110 H 102 H Respiratory Rate 18 16 16 Blood Pressure 120/62 117/55 L 121/60 Pulse Oximetry 100 99 01/01/18 08:00 01/01/18 12:00 Temperature 97.9 F 98.6 F Pulse Rate 100 H 96 H Respiratory Rate 19 18 Blood Pressure 143/65 H 122/60 Pulse Oximetry 100 100 Intake & Output 12/31/17 01/01/18 01/01/18 18:59 06:59 18:59 Intake Total 860 / 860 100 / 100 Output Total 300 / 300 Balance 860 / 860 -200 / -200 Weight 51.9 kg Intake: IV 100 / 100 INVanz Inj 500 MG In NS Inj 100 100 / 100 ML @ 200 mls/hr IV.SIG Q24H [facility] Rx#:[id number] Tube Feeding 660 / 660 Tube Irrigant 200 / 200 Output: Urine 300 / 300 Other: Date of Last Bowel Movement 12/31/17 # Bowel Movements 2 # Incontinent Bowel Movements 4 Narrative: Alert and awake Abd: soft; flat; midline incision almost healed; Changed J tube dressing Swelling improved - Urinary Catheter Management Indwelling Temp Sensing Catheter Cath placed during this visit: no Results - Labs 01/02/18 06:40 01/02/18 06:40 Laboratory Results - last 24 hr 12/31/17 01/01/18 01/01/18 18:57 05:30 05:30 WBC 13.7 H RBC 2.69 L Hgb 8.2 L Hct 23.6 L MCV 87.9 MCH 30.4 MCHC 34.6 RDW 16.7 Plt Count 251 MPV 8.6 Neut % (Auto) 79.1 H Lymph % (Auto) 7.7 L [place] % (Auto) 7.0 Eos % (Auto) 5.3 H Baso % (Auto) 0.9 Neut # (Auto) 10.8 H Lymph # (Auto) 1.1 [place] # (Auto) 1.0 H Eos # (Auto) 0.7 H Baso # (Auto) 0.1 WBC Differential . Differential Comment Auto diff final Sodium 147 H 150 H Potassium 2.9 L* 2.9 L* Chloride 114 H 116 H Carbon Dioxide 22.9 24.0 Anion Gap 10 10 BUN 57 H 61 H Creatinine 5.22 H 4.91 H Estimated GFR 14 L 16 L Random Glucose 109 H 110 H Calcium 7.8 L 7.8 L Phosphorus 4.3 - Imaging Imaging: ITS Impressions Head MRI 12/03/17 00:00 CONCLUSION: 1. Minimal nonspecific periventricular white matter changes. 2. No restricted diffusion to suggest an acute ischemic event. 3. No evidence for significant ischemic changes. Chest CT 12/04/17 00:06 CONCLUSION: 1. Left greater than right pleural effusions and basilar atelectasis. 2. No hemorrhage or hematoma demonstrated. 3. Distended and fluid-filled esophagus. No wall thickening. Patient is status post gastrectomy. Nasogastric tube is at the GE junction. 4. Body wall edema/anasarca. Abdomen X-Ray 12/08/17 00:00 CONCLUSION: 1. 2 left-sided abdominal catheters. 2. Nonspecific bowel gas pattern. Abdomen/Pelvis CT 12/13/17 00:00 CONCLUSION: 1. New proximal small bowel dilatation. No discrete transition point. Contrast is seen in the distal small bowel. Findings may represent ileus or partial obstruction. 2. Postsurgical findings with surgical drains in the left upper quadrant. Free fluid is seen in the left upper quadrant. Loculated rounded 5 cm area of fluid with thin peripheral enhancement also noted just inferior to the surgical drains. 3. Prominent left lower lobe pulmonary consolidation and small left pleural effusion. GI Bleed Scan Nuclear Medicine 12/15/17 00:00 CONCLUSION: No active bleeding demonstrated. Chest X-Ray 12/22/17 00:00 CONCLUSION: 1. Persistent patchy infiltrate within the left lung base. 2. Multiple tubes and lines are stable. The nasogastric tube remains with its tip in the distal esophagus. New right subclavian central line has its tip in superior vena cava. No pneumothorax is noted. Small Bowel X-Ray 12/22/17 00:00 CONCLUSION: No evidence of bowel obstruction. There is mild diffuse small bowel wall thickening identified within the jejunum and ileum consistent with possible edema given the appearance on initial imaging. Drain overlying the left lower quadrant. Jejunostomy Tube Placement 12/28/17 00:00 CONCLUSION: 1. Uncomplicated placement of a new 16 Turkish jejunostomy catheter through existing tract. Assessment and Plan - Assessment (1) Gastric perforation Code(s): K25.5 - Chronic or unspecified gastric ulcer with perforation Status : Resolved Plan: 47yo male s/p Exlap and gastrectomy for gastric perforation, s/p esophagojejunostomy at [facility] -Continue diet -Dietary consulted for post-gastrectomy meal plan -Keep J tube in place -HD per Nephrology -Needs aggressive PT - Plan The exam, history, and the medical decision-making described in the above note were completed with the assistance of the mid-level provider. I reviewed and agree with the findings presented. I attest that I had a [id number] encounter with the patient on the same day, and personally performed and documented my assessment and findings in the medical record.
[2018-01-01] MEDS: KCL 20 mEq/Dextrose 5% Inj 1,000 ML IV.CONT SCH (15:15)
[2018-01-01] MEDS: Ertapenem Inj 500 MG in Sodium Chlor 0.9% Inj 100 ML IV.SIG SCH (18:09)
[2018-01-01] MEDS: Potassium Chloride 25 MEQ Effervescent Tablet PO SCH ×2 (18:09→21:25)
[2018-01-02] MEDS: Metoprolol Tartrate 25 MG Tablet PO SCH ×4 (02:28→22:19)
[2018-01-02] MEDS: KCL 20 mEq/Dextrose 5% Inj 1,000 ML IV.CONT SCH (02:28)
[2018-01-02 07:06] LABS: Baso # (Auto) 0.1 th/mm3 (0.0-0.2); Baso % (Auto) 0.8 % (0.0-2.0); Eos # (Auto) 0.7 th/mm3 (0.0-0.4); Eos % (Auto) 5.1 % (0.0-4.0); Hematocrit 21.6 % (39.0-51.0); Hemoglobin 7.5 gm/dL (13.0-17.0); Lymph # (Auto) 1.1 th/mm3 (1.0-4.8); Lymph % (Auto) 7.7 % (9.0-44.0); Mean Corpuscular HGB Conc 34.5 % (32.0-36.0); Mean Corpuscular Hemoglobin 30.6 pg (27.0-34.0); Mean Corpuscular Volume 88.5 fL (80.0-100.0); Mean Platelet Volume 9.1 fL (7.0-11.0); Mono # (Auto) 1.1 th/mm3 (0.0-0.9); Mono % (Auto) 7.8 % (0.0-8.0); Neut # (Auto) 11.3 th/mm3 (1.8-7.7); Neut % (Auto) 78.6 % (16.0-70.0); Platelet Count 226 th/mm3 (150-450); Red Blood Count 2.45 mil/mm3 (4.50-5.90); Red Cell Distribution Width 16.4 % (11.6-17.2); White Blood Count 14.4 th/mm3 (4.0-11.0)
[2018-01-02 07:33] LABS: Calcium 7.6 mg/dL (8.5-10.1); Carbon Dioxide 19.9 meq/L (21.0-32.0); Magnesium 2.3 mg/dL (1.5-2.5); Potassium 3.3 meq/L (3.5-5.1)
--- NOTE | 2018-01-02 08:12 | P.PNGS ---
Subjective Patient reports: no new complaints (Patient sleeping on his left side. Opens eyes and denies any new problems. Falls back asleep quickly.) Physical Exam Vital signs: Vital Signs 01/01/18 12:00 01/01/18 16:00 01/01/18 20:00 Temperature 98.6 F 97.2 F L 98.5 F Pulse Rate 96 H 96 H 104 H Respiratory Rate 18 18 16 Blood Pressure 122/60 119/58 L 97/53 L Pulse Oximetry 100 99 99 01/02/18 00:00 Temperature 98.1 F Pulse Rate 96 H Respiratory Rate 15 Blood Pressure 107/55 L Pulse Oximetry 99 Intake & Output 01/01/18 01/02/18 01/02/18 18:59 06:59 18:59 Intake Total 1540 / 1540 2830 / 2830 Balance 1540 / 1540 2830 / 2830 Weight 59.1 kg Intake: IV 1000 / 1000 D5W + KCL 20 mEq Inj 1,000 ML @ 1000 / 1000 75 mls/hr IV.CONT .[id number] [facility] Rx#:[id number] Oral 360 / 360 480 / 480 Tube Feeding 780 / 780 950 / 950 Tube Irrigant 200 / 200 Water Bolus Amount 200 / 200 400 / 400 Other: # Voids 3 3 Date of Last Bowel Movement 01/01/18 01/02/18 # Bowel Movements 7 3 # Oral Regurgitations 1 Narrative: Abdomen is soft and nondistended and nontender. Extremities are thin without peripheral edema. - Urinary Catheter Management Indwelling Temp Sensing Catheter Cath placed during this visit: no Results - Labs 01/02/18 06:40 01/02/18 06:40 Laboratory Results - last 24 hr 01/02/18 01/02/18 06:40 06:40 WBC 14.4 H RBC 2.45 L Hgb 7.5 L Hct 21.6 L MCV 88.5 MCH 30.6 MCHC 34.5 RDW 16.4 Plt Count 226 MPV 9.1 Neut % (Auto) 78.6 H Lymph % (Auto) 7.7 L [place] % (Auto) 7.8 Eos % (Auto) 5.1 H Baso % (Auto) 0.8 Neut # (Auto) 11.3 H Lymph # (Auto) 1.1 [place] # (Auto) 1.1 H Eos # (Auto) 0.7 H Baso # (Auto) 0.1 WBC Differential . Differential Comment Auto diff final Sodium 143 Potassium 3.3 L Chloride 113 H Carbon Dioxide 19.9 L Anion Gap 10 BUN 66 H Creatinine 4.14 H Estimated GFR 19 L Random Glucose 90 Calcium 7.6 L Magnesium 2.3 - Imaging Imaging: ITS Impressions Head MRI 12/03/17 00:00 CONCLUSION: 1. Minimal nonspecific periventricular white matter changes. 2. No restricted diffusion to suggest an acute ischemic event. 3. No evidence for significant ischemic changes. Chest CT 12/04/17 00:06 CONCLUSION: 1. Left greater than right pleural effusions and basilar atelectasis. 2. No hemorrhage or hematoma demonstrated. 3. Distended and fluid-filled esophagus. No wall thickening. Patient is status post gastrectomy. Nasogastric tube is at the GE junction. 4. Body wall edema/anasarca. Abdomen X-Ray 12/08/17 00:00 CONCLUSION: 1. 2 left-sided abdominal catheters. 2. Nonspecific bowel gas pattern. Abdomen/Pelvis CT 12/13/17 00:00 CONCLUSION: 1. New proximal small bowel dilatation. No discrete transition point. Contrast is seen in the distal small bowel. Findings may represent ileus or partial obstruction. 2. Postsurgical findings with surgical drains in the left upper quadrant. Free fluid is seen in the left upper quadrant. Loculated rounded 5 cm area of fluid with thin peripheral enhancement also noted just inferior to the surgical drains. 3. Prominent left lower lobe pulmonary consolidation and small left pleural effusion. GI Bleed Scan Nuclear Medicine 12/15/17 00:00 CONCLUSION: No active bleeding demonstrated. Chest X-Ray 12/22/17 00:00 CONCLUSION: 1. Persistent patchy infiltrate within the left lung base. 2. Multiple tubes and lines are stable. The nasogastric tube remains with its tip in the distal esophagus. New right subclavian central line has its tip in superior vena cava. No pneumothorax is noted. Small Bowel X-Ray 12/22/17 00:00 CONCLUSION: No evidence of bowel obstruction. There is mild diffuse small bowel wall thickening identified within the jejunum and ileum consistent with possible edema given the appearance on initial imaging. Drain overlying the left lower quadrant. Jejunostomy Tube Placement 12/28/17 00:00 CONCLUSION: 1. Uncomplicated placement of a new 16 Wallisian jejunostomy catheter through existing tract. Assessment and Plan - Assessment (1) Gastric perforation Code(s): K25.5 - Chronic or unspecified gastric ulcer with perforation Status : Resolved Plan: 47yo male s/p Exlap and gastrectomy for gastric perforation, s/p esophagojejunostomy at [facility] -Continue diet -Dietary consulted for post-gastrectomy meal plan -Keep J tube in place -HD per Nephrology -Needs aggressive PT - Plan The exam, history, and the medical decision-making described in the above note were completed with the assistance of the mid-level provider. I reviewed and agree with the findings presented. I attest that I had a [id number] encounter with the patient on the same day, and personally performed and documented my assessment and findings in the medical record. 01/02/2018 I personally evaluated the patient in room 1730 A. Patient is undergone total gastrectomy with esophagojejunostomy and feeding jejunostomy. Patient's midline incision is healed. Patient's drains have been removed. Patient has a feeding tube to supplement his nutrition. His last prealbumin was 21 which is in the low range of normal. He is continuing to work with physical therapy. He will likely benefit from rehabilitation to regain normal strength and stamina. His creatinine continues to decrease. The patient reports urine output. Plan continue current supportive therapy. Facilitate transition to inpatient rehab.
[2018-01-02] MEDS: hydrALAZINE 50 MG Tablet PO SCH ×3 (09:12→18:01)
[2018-01-02] MEDS: Cholestyramine Light 4 GM Packet PO SCH ×2 (09:13→22:19)
[2018-01-02] MEDS: Calcium Acetate 667 MG Capsule PO SCH ×3 (09:13→18:01)
[2018-01-02] MEDS: Potassium Chloride 25 MEQ Effervescent Tablet PO SCH ×2 (09:19→22:18)
--- NOTE | 2018-01-02 09:54 | P.PN ---
Subjective Interval history: Follow-up gastric perforation and diarrhea. He is motivated to get better participating with physical therapy. Stools are less loose. Physical Exam Vital signs: Vital Signs 01/01/18 12:00 01/01/18 16:00 01/01/18 20:00 Temperature 98.6 F 97.2 F L 98.5 F Pulse Rate 96 H 96 H 104 H Respiratory Rate 18 18 16 Blood Pressure 122/60 119/58 L 97/53 L Pulse Oximetry 100 99 99 01/02/18 00:00 01/02/18 08:00 Temperature 98.1 F 97.9 F Pulse Rate 96 H 101 H Respiratory Rate 15 19 Blood Pressure 107/55 L 114/55 L Pulse Oximetry 99 99 Intake & Output 01/01/18 01/02/18 01/02/18 18:59 06:59 18:59 Intake Total 1540 / 1540 2830 / 2830 100 / 100 Balance 1540 / 1540 2830 / 2830 100 / 100 Weight 59.1 kg Intake: IV 1000 / 1000 100 / 100 D5W + KCL 20 mEq Inj 1,000 ML @ 1000 / 1000 75 mls/hr IV.CONT .[id number] [facility] Rx#:[id number] INVanz Inj 500 MG In NS Inj 100 100 / 100 ML @ 200 mls/hr IV.SIG Q24H [facility] Rx#:[id number] Oral 360 / 360 480 / 480 Tube Feeding 780 / 780 950 / 950 Tube Irrigant 200 / 200 Water Bolus Amount 200 / 200 400 / 400 Other: # Voids 3 3 Date of Last Bowel Movement 01/01/18 01/02/18 # Bowel Movements 7 3 # Oral Regurgitations 1 Narrative: thin 47yo aam weak and debilitated aaox3 nad speaks in very soft voice heart s1s2 reg lungs clear no wrr, abd soft nondt jjostomy in place wound w dressing in place ext no edema, no calf tenderness, pulses palp - Urinary Catheter Management Indwelling Temp Sensing Catheter Cath placed during this visit: no Results - Labs CBC & Chem 7: 01/02/18 06:40 01/02/18 06:40 Laboratory Results - last 24 hr 01/02/18 01/02/18 06:40 06:40 WBC 14.4 H RBC 2.45 L Hgb 7.5 L Hct 21.6 L MCV 88.5 MCH 30.6 MCHC 34.5 RDW 16.4 Plt Count 226 MPV 9.1 Neut % (Auto) 78.6 H Lymph % (Auto) 7.7 L [place] % (Auto) 7.8 Eos % (Auto) 5.1 H Baso % (Auto) 0.8 Neut # (Auto) 11.3 H Lymph # (Auto) 1.1 Young # (Auto) 1.1 H Eos # (Auto) 0.7 H Baso # (Auto) 0.1 WBC Differential . Differential Comment Auto diff final Sodium 143 Potassium 3.3 L Chloride 113 H Carbon Dioxide 19.9 L Anion Gap 10 BUN 66 H Creatinine 4.14 H Estimated GFR 19 L Random Glucose 90 Calcium 7.6 L Magnesium 2.3 - Imaging ITS Impressions Head MRI 12/03/17 00:00 CONCLUSION: 1. Minimal nonspecific periventricular white matter changes. 2. No restricted diffusion to suggest an acute ischemic event. 3. No evidence for significant ischemic changes. Chest CT 12/04/17 00:06 CONCLUSION: 1. Left greater than right pleural effusions and basilar atelectasis. 2. No hemorrhage or hematoma demonstrated. 3. Distended and fluid-filled esophagus. No wall thickening. Patient is status post gastrectomy. Nasogastric tube is at the GE junction. 4. Body wall edema/anasarca. Abdomen X-Ray 12/08/17 00:00 CONCLUSION: 1. 2 left-sided abdominal catheters. 2. Nonspecific bowel gas pattern. Abdomen/Pelvis CT 12/13/17 00:00 CONCLUSION: 1. New proximal small bowel dilatation. No discrete transition point. Contrast is seen in the distal small bowel. Findings may represent ileus or partial obstruction. 2. Postsurgical findings with surgical drains in the left upper quadrant. Free fluid is seen in the left upper quadrant. Loculated rounded 5 cm area of fluid with thin peripheral enhancement also noted just inferior to the surgical drains. 3. Prominent left lower lobe pulmonary consolidation and small left pleural effusion. GI Bleed Scan Nuclear Medicine 12/15/17 00:00 CONCLUSION: No active bleeding demonstrated. Chest X-Ray 12/22/17 00:00 CONCLUSION: 1. Persistent patchy infiltrate within the left lung base. 2. Multiple tubes and lines are stable. The nasogastric tube remains with its tip in the distal esophagus. New right subclavian central line has its tip in superior vena cava. No pneumothorax is noted. Small Bowel X-Ray 12/22/17 00:00 CONCLUSION: No evidence of bowel obstruction. There is mild diffuse small bowel wall thickening identified within the jejunum and ileum consistent with possible edema given the appearance on initial imaging. Drain overlying the left lower quadrant. Jejunostomy Tube Placement 12/28/17 00:00 CONCLUSION: 1. Uncomplicated placement of a new 16 [place] jejunostomy catheter through existing tract. - Procedures Jejunostomy tube placement Assessment and Plan - Assessment (1) JACLYN (acute kidney injury) Code(s): N17.9 - Acute kidney failure, unspecified Status: Acute (2) Acute respiratory failure Code(s): J96.00 - Acute respiratory failure, unspecified whether with hypoxia or hypercapnia Status: Acute (3) Gastric perforation Code(s): K25.5 - Chronic or unspecified gastric ulcer with perforation Status : Resolved (4) Candidemia Code(s): B37.7 - Candidal sepsis Status: Acute (5) DVT (deep venous thrombosis) Code(s): I82.409 - Acute embolism and thrombosis of unspecified deep veins of unspecified lower extremity Status: Acute (6) Anemia Code(s): D64.9 - Anemia, unspecified Status: Acute - Plan ACUTE METABOLIC ENCEPHALOPATHY w ACUTE DELIRIUM due to critical illness: Resolving, cont oob w pt, cont st, ot, now can participate ACUTE RESPIRATORY FAILURE /TENSION PNEUMOTHORAX left pigtail chest tube removed 12/18 Extubated 12/22 continue Bronchodilator, Mucolytic and Incentive spirometry. now stable on RA CARDIAC ARREST 11/23/17 PEA arrest due to shock secondary to acute gastric perforation and tension pneumoperitoneum -Currently hemodynamically stable. ANTERIOR GASTRIC PERFORATION with TENSION PNEUMOPERITONEUM/ S/P SUBTOTAL GASTRECTOMY w feeding jejunostomy - Status post Exploratory laparotomy repair of perforation with stapler and Second look 11/25 found gastric necrosis requiring subtotal gastrectomy and placement of AB Thera VAC dressing, transferred to [facility] 11/28 reexploration with Dinh-en-y esophagojejunostomy, feeding jejunostomy placement diagnostic EGD primary fascial closure. - cont wound care, diet as tolerated, tube feeds as marvin. ISCHEMIC HEPATOPATHY resolving GIB with ANEMIA OF ACUTE BLOOD LOSS EGD, enteroscopy 12/12/2017 unremarkable, colonoscopy 12/13/2017 unremarkable. Bleeding scan did not show any particular site of bleeding Had right upper quadrant ultrasound on 11/27/17 that demonstrated contracted gallbladder with sludge. No evidence of cholecystitis. Echogenicity in right liver related to focal fatty change or altered perfusion, patent vascularity. Protonix per GI. Appreciate general surgery following. Continue mechanical soft, thickened liquid diet. ACUTE RENAL FAILURE secondary to ISCHEMIC ATN requiring dialysis HD started 11/26 Nephrology following. Continue hemodialysis per nephrology. KLEBSIELLA ESBL ABD WOUND INFECTION - cont invanz per ID CANDIDEMIA following gastric perforation and gastric ischemia. Blood culture at [facility] in [place] on 11/26 had Starr glabrata. Repeat blood culture is negative. Infectious disease following. S/p micafungin for candidemia. ANEMIA requiring transfusion/THROMBOCYTOPENIA resolved. Hemoglobin 7.5 will repeat. No active bleeding BILATERAL UE DVT U/s 11/26 BUE - thrombus R axillary, brachial and basilic veins and thrombus in left axillary and left brachial veins. Hematology consult was obtained at [facility] and patient was treated with heparin. Continue subcu heparin here. Hemoglobin stable today. Continue to monitor. PRESSURE ULCER OF SACRUM/COCCYX and BUTTOCKS Wound care nursing following. Continue with dressing change and frequent turning. MUSCLE WEAKNESS AND MYOPATHY OF CRITICAL ILLNESS - extremely weak, cont PT,will require placement SEVERE PROTEIN CALORIE MALNUTRITION w bmi 14.5, alb 1.7, w mild dysphagia and s/ p partial gastrectomy, cont thickened diet as tolerated, has poor appetite, supplemental Jejunostomy TF till bmi improves may change to nightly feeds supplementation and oral during daytime if his po intake improves, fu w nutrition and st recommendations. Improving weight BMI up to 16.7. Will request calorie counting HTN - hydralazine and metoprolol HYPOKALEMIA - replace w caution, fu w nephrology. Repeat BMP shows improving hypokalemia on scheduled potassium LEUKOCYTOSIS - no fever, DYSPHAGIA - asp risk, cont thickened liq per ST,resume oral diet as tolerated DIARRHEA- neg for cdif, prob from abx and nephro tf, immodium not helping, prob due to tube feeding, added florastor, questran. Reconsult dietitian switched to Vital DISPO - will need placement insurance pending (2) Acute respiratory failure Qualifiers: Respiratory failure complication: hypoxia Qualified Code(s): J96.01 - Acute respiratory failure with hypoxia
[2018-01-02] MEDS: Collagenase Oint 30 GM Tube TOPICAL SCH (13:05)
--- NOTE | 2018-01-02 13:22 | P.PNNP ---
Subjective Interval history: Patient was seen in bed, no distress, no complaints. Patient was previously receiving dialysis. Last dialyzed 12/29/17. Patient's renal function continues to improve so dialysis has been held. Creatinine is 4.14. Physical Exam Vital signs: Vital Signs 01/01/18 16:00 01/01/18 20:00 01/02/18 00:00 Temperature 97.2 F L 98.5 F 98.1 F Pulse Rate 96 H 104 H 96 H Respiratory Rate 18 16 15 Blood Pressure 119/58 L 97/53 L 107/55 L Pulse Oximetry 99 99 99 01/02/18 08:00 Temperature 97.9 F Pulse Rate 101 H Respiratory Rate 19 Blood Pressure 114/55 L Pulse Oximetry 99 Intake & Output 01/01/18 01/02/18 01/02/18 18:59 06:59 18:59 Intake Total 1540 / 1540 2830 / 2830 100 / 100 Balance 1540 / 1540 2830 / 2830 100 / 100 Weight 59.1 kg Intake: IV 1000 / 1000 100 / 100 D5W + KCL 20 mEq Inj 1,000 ML @ 1000 / 1000 75 mls/hr IV.CONT .[id number] [facility] Rx#:[id number] INVanz Inj 500 MG In NS Inj 100 100 / 100 ML @ 200 mls/hr IV.SIG Q24H [facility] Rx#:[id number] Oral 360 / 360 480 / 480 Tube Feeding 780 / 780 950 / 950 Tube Irrigant 200 / 200 Water Bolus Amount 200 / 200 400 / 400 Other: # Voids 3 3 Date of Last Bowel Movement 01/01/18 01/02/18 01/02/18 # Bowel Movements 7 3 # Oral Regurgitations 1 - Constitutional no acute distress, thin - Routine HEENT Exam Head: Present: normocephalic Eye: Present: EOMI, PERRL - Routine Neck Exam Present: trachea midline. Absent: JVD, tracheal deviation - Routine Respiratory Exam Present: CTA bilaterally. Absent: accessory muscle use, respiratory distress - Routine Cardiovascular Exam Present: RRR - Routine Abdominal Exam Present: firm, surgical scars. Absent: tenderness, distended - Routine Extremities Exam Present: pulses intact, normal capillary refill. Absent: edema - Routine Skin Exam Present: intact - Routine Neurological Exam Present: alert - Urinary Catheter Management Indwelling Temp Sensing Catheter Cath placed during this visit: no Assessment and Plan - Assessment (1) JACLYN (acute kidney injury) Code(s): N17.9 - Acute kidney failure, unspecified Status: Acute Plan: Patient was previously receiving dialysis. Last dialyzed 12/29/17. Patient's renal function continues to improve so dialysis has been held. Creatinine is 4.14. Will hold off on dialysis and continue to monitor labs to determine if dialysis is needed. Monitor for renal recovery. Avoid nephrotoxic agents. Monitor I & O. Monitor fluid and electrolytes. (2) Acute respiratory failure Code(s): J96.00 - Acute respiratory failure, unspecified whether with hypoxia or hypercapnia Status: Acute Qualifiers: Respiratory failure complication: hypoxia Qualified Code(s): J96.01 - Acute respiratory failure with hypoxia Plan: Resolved, Extubated, on room air. (3) Gastric perforation Code(s): K25.5 - Chronic or unspecified gastric ulcer with perforation Status : Resolved Plan: s/p surgery. Subtotal gastrectomy in [place]. In [facility] he had: Dinh-en-y esophagojejunostomy, feeding jejunostomy placement, diagnostic EGD, primary fascial closure. Date of procedure: 11/28/17 Negative bleeding scan - follow with GI, surgery. No immediate surgical plans at this point (4) Candidemia Code(s): B37.7 - Candidal sepsis Status: Acute Plan: Blood culture at [facility] in [place] on 11/26 had Starr glabrata. Repeat blood culture is negative. Infectious disease following. S/p micafungin for candidemia. (5) DVT (deep venous thrombosis) Code(s): I82.409 - Acute embolism and thrombosis of unspecified deep veins of unspecified lower extremity Status: Acute Plan: DVT of bilateral upper extremities. Patient gets SubQ heparin Q12H. (6) Anemia Code(s): D64.9 - Anemia, unspecified Status: Acute Plan: HGB is 7.5. Could be multifactorial. Last blood transfusion 12/21/17.
[2018-01-02] MEDS: KCL 20 mEq/NACL 0.45% Inj 1,000 ML IV.CONT SCH (13:49)
[2018-01-02] MEDS: Ertapenem Inj 500 MG in Sodium Chlor 0.9% Inj 100 ML IV.SIG SCH (18:00)
[2018-01-03] MEDS: Metoprolol Tartrate 25 MG Tablet PO SCH ×4 (02:46→21:46)
[2018-01-03 07:19] LABS: Baso # (Auto) 0.1 th/mm3 (0.0-0.2); Baso % (Auto) 0.9 % (0.0-2.0); Eos # (Auto) 0.6 th/mm3 (0.0-0.4); Eos % (Auto) 4.4 % (0.0-4.0); Hematocrit 21.8 % (39.0-51.0); Hemoglobin 7.2 gm/dL (13.0-17.0); Lymph # (Auto) 1.2 th/mm3 (1.0-4.8); Lymph % (Auto) 8.9 % (9.0-44.0); Mean Corpuscular Hemoglobin 29.9 pg (27.0-34.0); Mean Corpuscular Volume 90.8 fL (80.0-100.0); Mean Platelet Volume 10.1 fL (7.0-11.0); Mono # (Auto) 1.2 th/mm3 (0.0-0.9); Neut # (Auto) 10.5 th/mm3 (1.8-7.7); Neut % (Auto) 76.8 % (16.0-70.0); Platelet Count 237 th/mm3 (150-450); Red Cell Distribution Width 17.2 % (11.6-17.2); White Blood Count 13.6 th/mm3 (4.0-11.0)
[2018-01-03 07:50] LABS: Calcium 7.7 mg/dL (8.5-10.1); Magnesium 2.3 mg/dL (1.5-2.5); Potassium 3.9 meq/L (3.5-5.1)
[2018-01-03] MEDS: Calcium Acetate 667 MG Capsule PO SCH ×3 (09:48→18:02)
[2018-01-03] MEDS: Potassium Chloride 25 MEQ Effervescent Tablet PO SCH ×2 (09:49→21:46)
[2018-01-03] MEDS: hydrALAZINE 50 MG Tablet PO SCH ×3 (09:49→18:03)
[2018-01-03] MEDS: Cholestyramine Light 4 GM Packet PO SCH ×2 (09:50→21:46)
--- NOTE | 2018-01-03 09:53 | P.PN ---
Subjective Interval history: Follow-up diarrhea and kidney injury. Continues to have loose stools but tolerating p.o. Renal function improving. Participating with PT motivated to get better. Physical Exam Vital signs: Vital Signs 01/02/18 12:00 01/02/18 14:00 01/02/18 15:00 Temperature 97.6 F 97.6 F 97.9 F Pulse Rate 115 H 102 H 104 H Respiratory Rate 18 19 19 Blood Pressure 137/76 140/66 135/68 Pulse Oximetry 100 98 100 01/02/18 20:00 01/03/18 00:00 Temperature 98.9 F 99.1 F Pulse Rate 112 H 91 H Respiratory Rate 18 18 Blood Pressure 151/70 H 124/60 Pulse Oximetry 100 99 Intake & Output 01/02/18 01/03/18 01/03/18 18:59 06:59 18:59 Intake Total 4522 / 4522 1220 / 1220 Balance 4522 / 4522 1220 / 1220 Weight 58.9 kg Intake: IV 800 / 800 D5W + KCL 20 mEq Inj 1,000 ML @ 700 / 700 75 mls/hr IV.CONT .[id number] [facility] Rx#:[id number] INVanz Inj 500 MG In NS Inj 100 100 / 100 ML @ 200 mls/hr IV.SIG Q24H [facility] Rx#:[id number] Oral 3722 / 3722 Tube Feeding 920 / 920 Water Bolus Amount 300 / 300 Other: # Voids 4 Date of Last Bowel Movement 01/02/18 # Bowel Movements 4 Narrative: thin 47yo aam weak and debilitated aaox3 nad speaks in very soft voice heart s1s2 reg lungs clear no wrr, abd soft nondt jjostomy in place wound w dressing in place ext no edema, no calf tenderness, pulses palp - Urinary Catheter Management Indwelling Temp Sensing Catheter Cath placed during this visit: no Results - Labs CBC & Chem 7: 01/03/18 06:00 01/03/18 06:00 Laboratory Results - last 24 hr 12/24/17 01/03/18 01/03/18 09:46 06:00 06:00 WBC 13.6 H RBC 2.40 L Hgb 7.2 L Hct 21.8 L MCV 90.8 MCH 29.9 MCHC 33.0 RDW 17.2 Plt Count 237 MPV 10.1 Neut % (Auto) 76.8 H Lymph % (Auto) 8.9 L [place] % (Auto) 9.0 H Eos % (Auto) 4.4 H Baso % (Auto) 0.9 Neut # (Auto) 10.5 H Lymph # (Auto) 1.2 [place] # (Auto) 1.2 H Eos # (Auto) 0.6 H Baso # (Auto) 0.1 WBC Differential . Differential Comment Auto diff final Sodium 142 Potassium 3.9 Chloride 112 H Carbon Dioxide 19.0 L Anion Gap 11 BUN 66 H Creatinine 3.29 H Estimated GFR 25 L Random Glucose 73 L Calcium 7.7 L Magnesium 2.3 Blood Bank Comment Not Reportable Reference Lab Result - Procedures Jejunostomy tube placement Assessment and Plan - Assessment (1) JACLYN (acute kidney injury) Code(s): N17.9 - Acute kidney failure, unspecified Status: Acute (2) Acute respiratory failure Code(s): J96.00 - Acute respiratory failure, unspecified whether with hypoxia or hypercapnia Status: Acute (3) Gastric perforation Code(s): K25.5 - Chronic or unspecified gastric ulcer with perforation Status : Resolved (4) Candidemia Code(s): B37.7 - Candidal sepsis Status: Acute (5) DVT (deep venous thrombosis) Code(s): I82.409 - Acute embolism and thrombosis of unspecified deep veins of unspecified lower extremity Status: Acute (6) Anemia Code(s): D64.9 - Anemia, unspecified Status: Acute - Plan ACUTE METABOLIC ENCEPHALOPATHY w ACUTE DELIRIUM due to critical illness: Resolving, cont oob w pt, cont st, ot, now can participate ACUTE RESPIRATORY FAILURE /TENSION PNEUMOTHORAX left pigtail chest tube removed 12/18 Extubated 12/22 continue Bronchodilator, Mucolytic and Incentive spirometry. now stable on RA CARDIAC ARREST 11/23/17 PEA arrest due to shock secondary to acute gastric perforation and tension pneumoperitoneum -Currently hemodynamically stable. ANTERIOR GASTRIC PERFORATION with TENSION PNEUMOPERITONEUM/ S/P SUBTOTAL GASTRECTOMY w feeding jejunostomy - Status post Exploratory laparotomy repair of perforation with stapler and Second look 11/25 found gastric necrosis requiring subtotal gastrectomy and placement of AB Thera VAC dressing, transferred to [facility] 11/28 reexploration with Dinh-en-y esophagojejunostomy, feeding jejunostomy placement diagnostic EGD primary fascial closure. - cont wound care, diet as tolerated, tube feeds as marvin. ISCHEMIC HEPATOPATHY resolving GIB with ANEMIA OF ACUTE BLOOD LOSS EGD, enteroscopy 12/12/2017 unremarkable, colonoscopy 12/13/2017 unremarkable. Bleeding scan did not show any particular site of bleeding Had right upper quadrant ultrasound on 11/27/17 that demonstrated contracted gallbladder with sludge. No evidence of cholecystitis. Echogenicity in right liver related to focal fatty change or altered perfusion, patent vascularity. Protonix per GI. Appreciate general surgery following. Continue mechanical soft, thickened liquid diet. ACUTE RENAL FAILURE secondary to ISCHEMIC ATN requiring dialysis HD started 11/26 Nephrology following. Hold hemodialysis per nephrology since patient's renal function continues to improve. KLEBSIELLA ESBL ABD WOUND INFECTION - cont invanz per ID CANDIDEMIA following gastric perforation and gastric ischemia. Blood culture at [facility] in [place] on 11/26 had Starr glabrata. Repeat blood culture is negative. Infectious disease following. S/p micafungin for candidemia. ANEMIA requiring transfusion/THROMBOCYTOPENIA resolved. Iron deficient no active bleeding but will transfuse 1 unit packed RBC patient is tachycardic, patient is refusing transfusion. Start iron BILATERAL UE DVT U/s 11/26 BUE - thrombus R axillary, brachial and basilic veins and thrombus in left axillary and left brachial veins. Hematology consult was obtained at [facility] and patient was treated with heparin. Continue subcu heparin here. Hemoglobin stable today. Continue to monitor. PRESSURE ULCER OF SACRUM/COCCYX and BUTTOCKS Wound care nursing following. Continue with dressing change and frequent turning. MUSCLE WEAKNESS AND MYOPATHY OF CRITICAL ILLNESS - extremely weak, cont PT,will require placement SEVERE PROTEIN CALORIE MALNUTRITION w bmi 14.5, alb 1.7, w mild dysphagia and s/ p partial gastrectomy, cont thickened diet as tolerated, has poor appetite, supplemental Jejunostomy TF till bmi improves may change to nightly feeds supplementation and oral during daytime if his po intake improves, fu w nutrition and st recommendations. Improving weight BMI up to 16.7. Will request calorie counting HTN - hydralazine and metoprolol HYPOKALEMIA - replace w caution, fu w nephrology. Repeat BMP shows improving hypokalemia on scheduled potassium LEUKOCYTOSIS - no fever, DYSPHAGIA - asp risk, cont thickened liq per ST,resume oral diet as tolerated DIARRHEA- neg for cdif, prob from abx and nephro tf, immodium not helping, prob due to tube feeding, added florastor, questran. Reconsult dietitian switched to Vital DISPO - will need placement insurance pending (2) Acute respiratory failure Qualifiers: Respiratory failure complication: hypoxia Qualified Code(s): J96.01 - Acute respiratory failure with hypoxia
[2018-01-03] MEDS ORDERED: Sodium Chlor 0.9% Inj 250 ML IV.SIG SCH (10:00)
--- NOTE | 2018-01-03 10:14 | P.PNNP ---
Subjective Interval history: Patient was seen in bed, no distress, complaints of diarrhea at night. Patient was previously receiving dialysis. Last dialyzed 12/29/17. Patient's renal function continues to improve so dialysis has been held. VasCath to be removed. Creatinine is 3.29. <Jocelyn Crews - Last Filed: 01/03/18 10:07> Physical Exam Vital signs: Vital Signs 01/02/18 12:00 01/02/18 14:00 01/02/18 15:00 Temperature 97.6 F 97.6 F 97.9 F Pulse Rate 115 H 102 H 104 H Respiratory Rate 18 19 19 Blood Pressure 137/76 140/66 135/68 Pulse Oximetry 100 98 100 01/02/18 20:00 01/03/18 00:00 Temperature 98.9 F 99.1 F Pulse Rate 112 H 91 H Respiratory Rate 18 18 Blood Pressure 151/70 H 124/60 Pulse Oximetry 100 99 Intake & Output 01/02/18 01/03/18 01/03/18 18:59 06:59 18:59 Intake Total 4522 / 4522 1220 / 1220 Balance 4522 / 4522 1220 / 1220 Weight 58.9 kg Intake: IV 800 / 800 D5W + KCL 20 mEq Inj 1,000 ML @ 700 / 700 75 mls/hr IV.CONT .[id number] [facility] Rx#:[id number] INVanz Inj 500 MG In NS Inj 100 100 / 100 ML @ 200 mls/hr IV.SIG Q24H [facility] Rx#:[id number] Oral 3722 / 3722 Tube Feeding 920 / 920 Water Bolus Amount 300 / 300 Other: # Voids 4 Date of Last Bowel Movement 01/02/18 # Bowel Movements 4 - Constitutional no acute distress - Routine HEENT Exam Head: Present: normocephalic Eye: Present: EOMI, PERRL ENT: Present: mucous membranes moist - Routine Neck Exam Present: trachea midline. Absent: JVD, tracheal deviation - Routine Respiratory Exam Present: CTA bilaterally. Absent: accessory muscle use, respiratory distress - Routine Cardiovascular Exam Present: RRR. Absent: murmur - Routine Abdominal Exam Present: surgical scars. Absent: tenderness, distended - Routine Extremities Exam Present: pulses intact, normal capillary refill. Absent: cyanosis, edema - Routine Neurological Exam Present: alert, oriented X3 - Urinary Catheter Management Indwelling Temp Sensing Catheter Cath placed during this visit: no <Jocelyn Crews - Last Filed: 01/03/18 10:07> Vital signs: Vital Signs 01/03/18 00:00 01/03/18 08:00 01/03/18 11:00 Temperature 99.1 F 97.9 F 100.3 F H Pulse Rate 91 H 99 H 107 H Respiratory Rate 18 18 18 Blood Pressure 124/60 126/70 108/64 Pulse Oximetry 99 100 90 L 01/03/18 12:00 01/03/18 16:00 01/03/18 20:00 Temperature 98.1 F 97.6 F 98.5 F Pulse Rate 106 H 102 H 101 H Respiratory Rate 17 17 16 Blood Pressure 111/67 118/55 L 111/64 Pulse Oximetry 95 100 97 Intake & Output 01/03/18 01/03/18 01/04/18 06:59 18:59 06:59 Intake Total 1220 / 1220 1000 / 1000 Balance 1220 / 1220 1000 / 1000 Weight 58.9 kg Intake: IV 1000 / 1000 Potassium Chlor 20 mEq/NACL 0. 1000 / 1000 45% Inj 1,000 ML @ 30 mls/hr IV .CONT .Q24H [facility] Rx#:[id number] Tube Feeding 920 / 920 Water Bolus Amount 300 / 300 Other: # Voids 4 # Bowel Movements 4 - Urinary Catheter Management Indwelling Temp Sensing Catheter Cath placed during this visit: no <Filipe Robertson - Last Filed: 01/03/18 20:52> Assessment and Plan - Assessment (1) JACLYN (acute kidney injury) Code(s): N17.9 - Acute kidney failure, unspecified Status: Acute Plan: Patient was previously receiving dialysis. Last dialyzed 12/29/17. Patient's renal function continues to improve so dialysis has been held. Creatinine is 3.29. Potassium is 3.9. Patient has been hypokalemic. Patient on K replacement. Continue to monitor fluid and electrolytes. VasCath can be removed. (2) Acute respiratory failure Code(s): J96.00 - Acute respiratory failure, unspecified whether with hypoxia or hypercapnia Status: Acute Qualifiers: Respiratory failure complication: hypoxia Qualified Code(s): J96.01 - Acute respiratory failure with hypoxia Plan: Resolved, Extubated, on room air. (3) Gastric perforation Code(s): K25.5 - Chronic or unspecified gastric ulcer with perforation Status : Resolved Plan: s/p surgery. Subtotal gastrectomy in [place]. In [facility] he had: Dinh-en-y esophagojejunostomy, feeding jejunostomy placement, diagnostic EGD, primary fascial closure. Date of procedure: 11/28/17 Negative bleeding scan - follow with GI, surgery. No immediate surgical plans at this point (4) Candidemia Code(s): B37.7 - Candidal sepsis Status: Acute Plan: Blood culture at [facility] in [place] on 11/26 had Starr glabrata. Repeat blood culture is negative. Infectious disease following. S/p micafungin for candidemia. (5) DVT (deep venous thrombosis) Code(s): I82.409 - Acute embolism and thrombosis of unspecified deep veins of unspecified lower extremity Status: Acute Plan: DVT of bilateral upper extremities. (6) Anemia Code(s): D64.9 - Anemia, unspecified Status: Acute Plan: HGB is 7.2. Could be multifactorial. Last blood transfusion 12/21/17. Transfuse PRN. <Jocelyn Crews - Last Filed: 01/03/18 10:07> - Assessment (1) JACLYN (acute kidney injury) Code(s): N17.9 - Acute kidney failure, unspecified Status: Acute (2) Acute respiratory failure Code(s): J96.00 - Acute respiratory failure, unspecified whether with hypoxia or hypercapnia Status: Acute Qualifiers: Respiratory failure complication: hypoxia Qualified Code(s): J96.01 - Acute respiratory failure with hypoxia (3) Gastric perforation Code(s): K25.5 - Chronic or unspecified gastric ulcer with perforation Status : Resolved (4) Candidemia Code(s): B37.7 - Candidal sepsis Status: Acute (5) DVT (deep venous thrombosis) Code(s): I82.409 - Acute embolism and thrombosis of unspecified deep veins of unspecified lower extremity Status: Acute (6) Anemia Code(s): D64.9 - Anemia, unspecified Status: Acute - Attending Attestation patient was seen and examined. Agree with above assessment and plan. Renal function has improved. Hypernatremia has improved. <Filipe Robertson - Last Filed: 01/03/18 20:52>
--- NOTE | 2018-01-03 10:33 | P.DIET ---
Nutritional Evaluation Type of nutrition evaluation: follow-up Nutrition consult regarding: Tube Feeding, TPN/PPN (TPN D/C'ed) Nutrition screening: [facility] Screening comments: 12/25 [facility] for post gastrectomy diet 12/31 TF causing diarrhea? 01/02 [facility] for Calorie Counting Subjective Subjective Comments: c/o diarrhea Objective - Diagnosis Gastroenteritis - Objective % IBW: 92 (IBW = 190#) Body Weight Used for Calculations: Actual (79.4) Energy Needs - Lower Range (kCal/kg): 28 Energy Needs - Upper Range (kCal/kg): 32 Lower Limit kCal/kg (kCals): 2,223 Upper Limit kCal/kg (kCals): 2,541 Lower Limit Protein Factor (Grams per Kg): 1.2 Upper Limit Protein Factor (Grams per Kg): 1.5 Lower Protein Needs (Protein): 95 Upper Protein Needs (Protein): 119 Dietitian Reviewed in Medical Record: Current diet, Curent medications, Intake & Output, Labs, Medical history Diet Order: Renal: 2 gm Na, mech soft, necter thickened liquids Oral Diet Intake Amount: Poor <50% Wound Care Note: see WOCN dated 12/25 Objective Comments: see recent extensive hx in H&P Feeding - Current Tube Feeding Tube Feeding Product: Vital 1.5 Tube Feeding Rate: 65 (mls/hr) Tube Feeding Route: jejunostomy Current kCals Provided by Tube Feedin,340 Current Protein Provided by Tube Feeding (gPRO): 105 Current Free H2O Provided (m/l): 1,192 Assessment Assessment: Pt is unable to meet needs with po intake alone at this time. He has had a long hospitalization with significant weight loss and BMI = 16.7 Wt changes noted. CBW = 58.9kg (admission wt was 93.7 kg). Can this possibly be correct or related to fluid/ wound vac/ inaccuracy in weighing. A Post gastrectomy diet usually consists of 6 small meals per day, only 4 ozs of fluid at meals, other fluids 1 hour before or after meals. Food needs to be well chewed. Of note: the hospital does not provide an option for 6 small meals a day. Nursing would need to order snacks and take them off the tray, put them in the refrigerator OR Ensure can be given between meals, but again nursing needs to control that. Nursing is currently recording under Feeding Assessment, that the pt is npo. There is a po diet ordered. 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 Pt would benefit from Avelino supplement bid to aid in wound healing. Recommend continue Vital 1.5 @ 65 mls/hr to provide 2340 kcals, 105 gms protein and 1192 mls of free water. Calorie counts initaited and will run from 01/03-01/07 with recommendations to follow. Recommendations: 1.Vital 1.5 @ 65 mls/hr goal 2. Continuous TF until pt can consistently eat >50% of a meal, then transition to night time TF until BMI >18 3. Ensure Enlive between meals. 4. No fluids on meal trays 5. Continue Avelino 6. CALORIE COUNTS from 01/03-01/07 Dietitian to Monitor: Lab values, Supplement acceptance, Intake & Output, Diet tolerance, Tube feeding tolerance, Weight change, PO Intake, Wound/skin status, Swallow recommendations, Medical course
[2018-01-03 11:28] LABS: % Iron Saturation 16.6 % (20-50)
[2018-01-03] MEDS: Collagenase Oint 30 GM Tube TOPICAL SCH (13:52)
[2018-01-03] MEDS: KCL 20 mEq/NACL 0.45% Inj 1,000 ML IV.CONT SCH (14:20)
[2018-01-03] MEDS: Ertapenem Inj 500 MG in Sodium Chlor 0.9% Inj 100 ML IV.SIG SCH (18:02)
[2018-01-04] MEDS: Metoprolol Tartrate 25 MG Tablet PO SCH ×4 (03:08→20:20)
[2018-01-04 04:19] LABS: Baso # (Auto) 0.1 th/mm3 (0.0-0.2); Eos # (Auto) 0.5 th/mm3 (0.0-0.4); Eos % (Auto) 4.5 % (0.0-4.0); Lymph # (Auto) 1.2 th/mm3 (1.0-4.8); Mean Corpuscular HGB Conc 32.8 % (32.0-36.0); Mean Corpuscular Hemoglobin 29.8 pg (27.0-34.0); Mean Corpuscular Volume 90.7 fL (80.0-100.0); Mean Platelet Volume 8.6 fL (7.0-11.0); Mono % (Auto) 9.4 % (0.0-8.0); Neut # (Auto) 7.9 th/mm3 (1.8-7.7); Neut % (Auto) 74.1 % (16.0-70.0); Platelet Count 244 th/mm3 (150-450); Red Blood Count 2.28 mil/mm3 (4.50-5.90); Red Cell Distribution Width 17.2 % (11.6-17.2); White Blood Count 10.7 th/mm3 (4.0-11.0)
[2018-01-04 04:26] LABS: Hematocrit 20.7 % (39.0-51.0); Hemoglobin 6.8 gm/dL (13.0-17.0)
[2018-01-04 05:01] LABS: Calcium 7.4 mg/dL (8.5-10.1); Magnesium 2.1 mg/dL (1.5-2.5); Potassium 4.1 meq/L (3.5-5.1)
[2018-01-04 05:10] LABS: Albumin 2.2 g/dL (3.4-5.0); Calcium-Albumin Corrected 8.8 mg/dL (8.5-10.1)
[2018-01-04] MEDS: hydrALAZINE 50 MG Tablet PO SCH ×3 (08:28→17:32)
[2018-01-04] MEDS: Calcium Acetate 667 MG Capsule PO SCH ×3 (08:28→17:32)
[2018-01-04] MEDS: Cholestyramine Light 4 GM Packet PO SCH ×2 (08:29→20:22)
[2018-01-04] MEDS: Ferrous Sulfate 325 MG Tablet PO SCH (08:30)
--- NOTE | 2018-01-04 10:08 | P.PN ---
Subjective Interval history: Follow-up anemia. Refuses to be transfused Physical Exam Vital signs: Vital Signs 01/03/18 11:00 01/03/18 12:00 01/03/18 16:00 Temperature 100.3 F H 98.1 F 97.6 F Pulse Rate 107 H 106 H 102 H Respiratory Rate 18 17 17 Blood Pressure 108/64 111/67 118/55 L Pulse Oximetry 90 L 95 100 01/03/18 20:00 01/04/18 00:00 01/04/18 08:00 Temperature 98.5 F 97.8 F 98.1 F Pulse Rate 101 H 94 H 111 H Respiratory Rate 16 17 17 Blood Pressure 111/64 117/68 125/72 Pulse Oximetry 97 95 99 Intake & Output 01/03/18 01/04/18 01/04/18 18:59 06:59 18:59 Intake Total 1100 / 1100 1238 / 1238 Output Total 4000 / 4000 Balance 1100 / 1100 -2762 / -2762 Weight 59 kg Intake: IV 1100 / 1100 Potassium Chlor 20 mEq/NACL 0. 1000 / 1000 45% Inj 1,000 ML @ 30 mls/hr IV .CONT .Q24H [facility] Rx#:[id number] INVanz Inj 500 MG In NS Inj 100 100 / 100 ML @ 200 mls/hr IV.SIG Q24H [facility] Rx#:[id number] Oral Supplement 280 / 280 Tube Feeding 758 / 758 Anesthesia Amount 50 / 50 Other 150 / 150 Output: Urine 300 / 300 Stool 400 / 400 Urine/Stool Mix 2800 / 2800 Pleural Fluid 0 / 0 Hemodialysis Amount 500 / 500 Other: # Voids 5 # Incontinent Voids 5 Date of Last Bowel Movement 01/02/18 # Bowel Movements 5 # Incontinent Bowel Movements 4 # Oral Regurgitations 1 Narrative: thin 47yo aam weak and debilitated aaox3 nad speaks in very soft voice heart s1s2 tachycardic lungs clear no wrr, abd soft nondt jjostomy in place wound w dressing in place ext no edema, no calf tenderness, pulses palp - Urinary Catheter Management Indwelling Temp Sensing Catheter Cath placed during this visit: no Results - Labs CBC & Chem 7: 01/04/18 04:11 01/04/18 04:11 Laboratory Results - last 24 hr 01/03/18 01/03/18 01/04/18 10:41 10:41 04:11 WBC 10.7 RBC 2.28 L Hgb 6.8 L* Hct 20.7 L* MCV 90.7 MCH 29.8 MCHC 32.8 RDW 17.2 Plt Count 244 MPV 8.6 Prelim Diff (Auto) Slide review pending Neut % (Auto) 74.1 H Lymph % (Auto) 11.0 Lake % (Auto) 9.4 H Eos % (Auto) 4.5 H Baso % (Auto) 1.0 Neut # (Auto) 7.9 H Lymph # (Auto) 1.2 Lake # (Auto) 1.0 H Eos # (Auto) 0.5 H Baso # (Auto) 0.1 WBC Differential . Diff Scan Auto diff confirmed Differential Comment . Sodium Potassium Chloride Carbon Dioxide Anion Gap BUN Creatinine Estimated GFR Random Glucose Calcium Calcium Adj for Albumin Magnesium Iron 36 L TIBC 217 L % Saturation 16.6 L Albumin Blood Type A Positive Antibody Screen Positive H MTS Gel Crossmatch See Detail 01/04/18 04:11 WBC RBC Hgb Hct MCV MCH MCHC RDW Plt Count MPV Prelim Diff (Auto) Neut % (Auto) Lymph % (Auto) Lake % (Auto) Eos % (Auto) Baso % (Auto) Neut # (Auto) Lymph # (Auto) Lake # (Auto) Eos # (Auto) Baso # (Auto) WBC Differential Diff Scan Differential Comment Sodium 142 Potassium 4.1 Chloride 116 H Carbon Dioxide 19.0 L Anion Gap 7 BUN 53 H Creatinine 2.45 H Estimated GFR 35 L Random Glucose 97 Calcium 7.4 L* Calcium Adj for Albumin 8.8 Magnesium 2.1 Iron TIBC % Saturation Albumin 2.2 L Blood Type Antibody Screen MTS Gel Crossmatch - Procedures Jejunostomy tube placement Assessment and Plan - Assessment (1) JACLYN (acute kidney injury) Code(s): N17.9 - Acute kidney failure, unspecified Status: Acute (2) Acute respiratory failure Code(s): J96.00 - Acute respiratory failure, unspecified whether with hypoxia or hypercapnia Status: Acute (3) Gastric perforation Code(s): K25.5 - Chronic or unspecified gastric ulcer with perforation Status : Resolved (4) Candidemia Code(s): B37.7 - Candidal sepsis Status: Acute (5) DVT (deep venous thrombosis) Code(s): I82.409 - Acute embolism and thrombosis of unspecified deep veins of unspecified lower extremity Status: Acute (6) Anemia Code(s): D64.9 - Anemia, unspecified Status: Acute - Plan ACUTE METABOLIC ENCEPHALOPATHY w ACUTE DELIRIUM due to critical illness: Resolving, cont oob w pt, cont st, ot, now can participate ACUTE RESPIRATORY FAILURE /TENSION PNEUMOTHORAX left pigtail chest tube removed 12/18 Extubated 12/22 continue Bronchodilator, Mucolytic and Incentive spirometry. now stable on RA CARDIAC ARREST 11/23/17 PEA arrest due to shock secondary to acute gastric perforation and tension pneumoperitoneum -Currently hemodynamically stable. 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 - cont wound care, diet as tolerated, tube feeds as marvin. ISCHEMIC HEPATOPATHY resolving GIB with ANEMIA OF ACUTE BLOOD LOSS EGD, enteroscopy 12/12/2017 unremarkable, colonoscopy 12/13/2017 unremarkable. Bleeding scan did not show any particular site of bleeding Had right upper quadrant ultrasound on 11/27/17 that demonstrated contracted gallbladder with sludge. No evidence of cholecystitis. Echogenicity in right liver related to focal fatty change or altered perfusion, patent vascularity. Protonix per GI. Appreciate general surgery following. Continue mechanical soft, thickened liquid diet. ACUTE RENAL FAILURE secondary to ISCHEMIC ATN requiring dialysis HD started 11/26 Nephrology following. Hold hemodialysis per nephrology since patient's renal function continues to improve. KLEBSIELLA ESBL ABD WOUND INFECTION - cont invanz per ID CANDIDEMIA following gastric perforation and gastric ischemia. Blood culture at [facility] in [place] on 11/26 had Starr glabrata. Repeat blood culture is negative. Infectious disease following. S/p micafungin for candidemia. Symptomatic ANEMIA requiring transfusion/THROMBOCYTOPENIA resolved. Iron deficient no active bleeding but will transfuse packed RBC patient is tachycardic, patient is refusing transfusion. Start Epogen in addition to iron. Guaiac negative BILATERAL UE DVT U/s 11/26 BUE - thrombus R axillary, brachial and basilic veins and thrombus in left axillary and left brachial veins. Hematology consult was obtained at [facility] and patient was treated with heparin. Continue subcu heparin here(On hold secondary to symptomatic anemia) Continue to monitor. PRESSURE ULCER OF SACRUM/COCCYX and BUTTOCKS Wound care nursing following. Continue with dressing change and frequent turning. MUSCLE WEAKNESS AND MYOPATHY OF CRITICAL ILLNESS - extremely weak, cont PT,will require placement SEVERE PROTEIN CALORIE MALNUTRITION w bmi 14.5, alb 1.7, w mild dysphagia and s/ p partial gastrectomy, cont thickened diet as tolerated, has poor appetite, supplemental Jejunostomy TF till bmi improves may change to nightly feeds supplementation and oral during daytime if his po intake improves, fu w nutrition and st recommendations. Improving weight BMI up to 16.7. Will request calorie counting HTN - hydralazine and metoprolol HYPOKALEMIA - replace w caution, fu w nephrology. Repeat BMP shows improving hypokalemia on scheduled potassium LEUKOCYTOSIS - no fever, DYSPHAGIA - asp risk, cont thickened liq per ST,resume oral diet as tolerated DIARRHEA- neg for cdif, prob from abx and nephro tf, immodium not helping, prob due to tube feeding, added florastor, questran. Reconsult dietitian switched to Vital DISPO - will need placement insurance pending (2) Acute respiratory failure Qualifiers: Respiratory failure complication: hypoxia Qualified Code(s): J96.01 - Acute respiratory failure with hypoxia
[2018-01-04] MEDS: Collagenase Oint 30 GM Tube TOPICAL SCH (12:13)
--- NOTE | 2018-01-04 12:27 | P.PNNP ---
Subjective Interval history: Patient was seen, no distress. Patient stated he still having diarrhea episodes at night. K has improved to 4.1. Patient's renal function continues to improve. <Jocelyn Crews - Last Filed: 01/04/18 12:15> Physical Exam Vital signs: Vital Signs 01/03/18 16:00 01/03/18 20:00 01/04/18 00:00 Temperature 97.6 F 98.5 F 97.8 F Pulse Rate 102 H 101 H 94 H Respiratory Rate 17 16 17 Blood Pressure 118/55 L 111/64 117/68 Pulse Oximetry 100 97 95 01/04/18 08:00 Temperature 98.1 F Pulse Rate 111 H Respiratory Rate 17 Blood Pressure 125/72 Pulse Oximetry 99 Intake & Output 01/03/18 01/04/18 01/04/18 18:59 06:59 18:59 Intake Total 1100 / 1100 1238 / 1238 Output Total 4000 / 4000 Balance 1100 / 1100 -2762 / -2762 Weight 59 kg Intake: IV 1100 / 1100 Potassium Chlor 20 mEq/NACL 0. 1000 / 1000 45% Inj 1,000 ML @ 30 mls/hr IV .CONT .Q24H [facility] Rx#:[id number] INVanz Inj 500 MG In NS Inj 100 100 / 100 ML @ 200 mls/hr IV.SIG Q24H [facility] Rx#:[id number] Oral Supplement 280 / 280 Tube Feeding 758 / 758 Anesthesia Amount 50 / 50 Other 150 / 150 Output: Urine 300 / 300 Stool 400 / 400 Urine/Stool Mix 2800 / 2800 Pleural Fluid 0 / 0 Hemodialysis Amount 500 / 500 Other: # Voids 5 # Incontinent Voids 5 Date of Last Bowel Movement 01/02/18 # Bowel Movements 5 # Incontinent Bowel Movements 4 # Oral Regurgitations 1 - Constitutional no acute distress, thin - Routine HEENT Exam Head: Present: normocephalic Eye: Present: EOMI, PERRL ENT: Present: mucous membranes moist - Routine Neck Exam Present: trachea midline. Absent: JVD, tracheal deviation - Routine Respiratory Exam Present: CTA bilaterally. Absent: accessory muscle use - Routine Cardiovascular Exam Present: RRR. Absent: murmur - Routine Abdominal Exam Absent: tenderness, distended - Routine Extremities Exam Present: pulses intact. Absent: edema - Routine Neurological Exam Present: alert, oriented X3 - Urinary Catheter Management Indwelling Temp Sensing Catheter Cath placed during this visit: no <Jocelyn Crews - Last Filed: 01/04/18 12:15> Vital signs: Vital Signs 01/04/18 00:00 01/04/18 08:00 01/04/18 12:00 Temperature 97.8 F 98.1 F 98.5 F Pulse Rate 94 H 111 H 99 H Respiratory Rate 17 17 16 Blood Pressure 117/68 125/72 133/61 Pulse Oximetry 95 99 99 01/04/18 16:00 01/04/18 20:00 Temperature 97.4 F L 98.6 F Pulse Rate 115 H 109 H Respiratory Rate 16 16 Blood Pressure 117/63 112/59 L Pulse Oximetry 100 95 Intake & Output 01/04/18 01/04/18 01/05/18 06:59 18:59 06:59 Intake Total 1238 / 1238 1800 / 1800 Output Total 4000 / 4000 Balance -2762 / -2762 1800 / 1800 Weight 59 kg Intake: IV 600 / 600 Potassium Chlor 20 mEq/NACL 0. 600 / 600 45% Inj 1,000 ML @ 30 mls/hr IV .CONT .Q24H [facility] Rx#:[id number] Oral 1200 / 1200 Oral Supplement 280 / 280 Tube Feeding 758 / 758 Anesthesia Amount 50 / 50 Other 150 / 150 Output: Urine 300 / 300 Stool 400 / 400 Urine/Stool Mix 2800 / 2800 Pleural Fluid 0 / 0 Hemodialysis Amount 500 / 500 Other: # Voids 5 5 # Incontinent Voids 5 Date of Last Bowel Movement 01/02/18 # Bowel Movements 5 5 # Incontinent Bowel Movements 4 # Oral Regurgitations 1 - Urinary Catheter Management Indwelling Temp Sensing Catheter Cath placed during this visit: no <Filipe Robertson - Last Filed: 01/04/18 21:44> Assessment and Plan - Assessment (1) JACLYN (acute kidney injury) Code(s): N17.9 - Acute kidney failure, unspecified Status: Acute Plan: Patient was previously receiving dialysis. Last dialyzed 12/29/17. Patient's renal function continues to improve so dialysis has been discontinued. Creatinine is 2.45. Potassium is 4.1. Patient on K replacement. Monitor IV fluids. Continue to monitor fluid and electrolytes. (2) Acute respiratory failure Code(s): J96.00 - Acute respiratory failure, unspecified whether with hypoxia or hypercapnia Status: Acute Qualifiers: Respiratory failure complication: hypoxia Qualified Code(s): J96.01 - Acute respiratory failure with hypoxia Plan: Resolved, Extubated, on room air. (3) Gastric perforation Code(s): K25.5 - Chronic or unspecified gastric ulcer with perforation Status : Resolved Plan: s/p surgery. Subtotal gastrectomy in [place]. In [facility] he had: Dinh-en-y esophagojejunostomy, feeding jejunostomy placement, diagnostic EGD, primary fascial closure. Date of procedure: 11/28/17 Negative bleeding scan - follow with GI, surgery. No immediate surgical plans at this point (4) Candidemia Code(s): B37.7 - Candidal sepsis Status: Acute Plan: Blood culture at [facility] in [place] on 11/26 had Starr glabrata. Repeat blood culture is negative. Infectious disease following. S/p micafungin for candidemia. (5) Anemia Code(s): D64.9 - Anemia, unspecified Status: Acute Plan: HGB is 6.8. Last blood transfusion 12/21/17. Transfuse PRN. - Plan . <Jocelyn Crews - Last Filed: 01/04/18 12:15> - Assessment (1) JACLYN (acute kidney injury) Code(s): N17.9 - Acute kidney failure, unspecified Status: Acute (2) Acute respiratory failure Code(s): J96.00 - Acute respiratory failure, unspecified whether with hypoxia or hypercapnia Status: Acute Qualifiers: Respiratory failure complication: hypoxia Qualified Code(s): J96.01 - Acute respiratory failure with hypoxia (3) Gastric perforation Code(s): K25.5 - Chronic or unspecified gastric ulcer with perforation Status : Resolved (4) Candidemia Code(s): B37.7 - Candidal sepsis Status: Acute (5) Anemia Code(s): D64.9 - Anemia, unspecified Status: Acute - Attending Attestation patient was seen and examined. Renal function is improving. Dialysis catheter removed. Severe anemia is noted. Discussed with Dr. Tang. Apparently he is refusing blood transfusion. <Filipe Robertson - Last Filed: 01/04/18 21:44>
[2018-01-04] MEDS: KCL 20 mEq/NACL 0.45% Inj 1,000 ML IV.CONT SCH (12:35)
--- NOTE | 2018-01-04 13:47 | P.PNID ---
Subjective Remarks: Patient is awake and alert. No distress. Sitting on side of bed. Eating more. Afebrile. Renal function improving. Antibiotics: Ertapenem. Past Medical History: Reviewed Allergies/Adverse Reactions: Allergies No Known Allergies Allergy (Verified 11/22/17 02:38) Objective Vital Signs 01/03/18 16:00 01/03/18 20:00 01/04/18 00:00 Temperature 97.6 F 98.5 F 97.8 F Pulse Rate 102 H 101 H 94 H Respiratory Rate 17 16 17 Blood Pressure 118/55 L 111/64 117/68 Pulse Oximetry 100 97 95 01/04/18 08:00 01/04/18 12:00 Temperature 98.1 F 98.5 F Pulse Rate 111 H 99 H Respiratory Rate 17 16 Blood Pressure 125/72 133/61 Pulse Oximetry 99 99 Intake & Output 01/03/18 01/04/18 01/04/18 18:59 06:59 18:59 Intake Total 1100 / 1100 1238 / 1238 600 / 600 Output Total 4000 / 4000 Balance 1100 / 1100 -2762 / -2762 600 / 600 Weight 59 kg Intake: IV 1100 / 1100 600 / 600 Potassium Chlor 20 mEq/NACL 0. 1000 / 1000 600 / 600 45% Inj 1,000 ML @ 30 mls/hr IV .CONT .Q24H [facility] Rx#:[id number] INVanz Inj 500 MG In NS Inj 100 100 / 100 ML @ 200 mls/hr IV.SIG Q24H [facility] Rx#:[id number] Oral Supplement 280 / 280 Tube Feeding 758 / 758 Anesthesia Amount 50 / 50 Other 150 / 150 Output: Urine 300 / 300 Stool 400 / 400 Urine/Stool Mix 2800 / 2800 Pleural Fluid 0 / 0 Hemodialysis Amount 500 / 500 Other: # Voids 5 # Incontinent Voids 5 Date of Last Bowel Movement 01/02/18 # Bowel Movements 5 # Incontinent Bowel Movements 4 # Oral Regurgitations 1 Lab - Hematology Results 01/03/18 01/04/18 06:00 04:11 WBC 13.6 H 10.7 RBC 2.40 L 2.28 L Hgb 7.2 L 6.8 L* Hct 21.8 L 20.7 L* MCV 90.8 90.7 MCH 29.9 29.8 MCHC 33.0 32.8 RDW 17.2 17.2 Plt Count 237 244 MPV 10.1 8.6 Prelim Diff (Auto) Slide review pending Neut % (Auto) 76.8 H 74.1 H Lymph % (Auto) 8.9 L 11.0 [place] % (Auto) 9.0 H 9.4 H Eos % (Auto) 4.4 H 4.5 H Baso % (Auto) 0.9 1.0 Neut # (Auto) 10.5 H 7.9 H Lymph # (Auto) 1.2 1.2 [place] # (Auto) 1.2 H 1.0 H Eos # (Auto) 0.6 H 0.5 H Baso # (Auto) 0.1 0.1 WBC Differential . . Diff Scan Auto diff confirmed Differential Comment Auto diff final . Lab - Chemistry Results 01/03/18 01/03/18 01/04/18 06:00 10:41 04:11 Sodium 142 142 Potassium 3.9 4.1 Chloride 112 H 116 H Carbon Dioxide 19.0 L 19.0 L Anion Gap 11 7 BUN 66 H 53 H Creatinine 3.29 H 2.45 H Estimated GFR 25 L 35 L Random Glucose 73 L 97 Calcium 7.7 L 7.4 L* Calcium Adj for Albumin 8.8 Magnesium 2.3 2.1 Iron 36 L TIBC 217 L % Saturation 16.6 L Albumin 2.2 L Imaging: ITS Impressions Head MRI 12/03/17 00:00 CONCLUSION: 1. Minimal nonspecific periventricular white matter changes. 2. No restricted diffusion to suggest an acute ischemic event. 3. No evidence for significant ischemic changes. Chest CT 12/04/17 00:06 CONCLUSION: 1. Left greater than right pleural effusions and basilar atelectasis. 2. No hemorrhage or hematoma demonstrated. 3. Distended and fluid-filled esophagus. No wall thickening. Patient is status post gastrectomy. Nasogastric tube is at the GE junction. 4. Body wall edema/anasarca. Abdomen X-Ray 12/08/17 00:00 CONCLUSION: 1. 2 left-sided abdominal catheters. 2. Nonspecific bowel gas pattern. Abdomen/Pelvis CT 12/13/17 00:00 CONCLUSION: 1. New proximal small bowel dilatation. No discrete transition point. Contrast is seen in the distal small bowel. Findings may represent ileus or partial obstruction. 2. Postsurgical findings with surgical drains in the left upper quadrant. Free fluid is seen in the left upper quadrant. Loculated rounded 5 cm area of fluid with thin peripheral enhancement also noted just inferior to the surgical drains. 3. Prominent left lower lobe pulmonary consolidation and small left pleural effusion. GI Bleed Scan Nuclear Medicine 12/15/17 00:00 CONCLUSION: No active bleeding demonstrated. Chest X-Ray 12/22/17 00:00 CONCLUSION: 1. Persistent patchy infiltrate within the left lung base. 2. Multiple tubes and lines are stable. The nasogastric tube remains with its tip in the distal esophagus. New right subclavian central line has its tip in superior vena cava. No pneumothorax is noted. Small Bowel X-Ray 12/22/17 00:00 CONCLUSION: No evidence of bowel obstruction. There is mild diffuse small bowel wall thickening identified within the jejunum and ileum consistent with possible edema given the appearance on initial imaging. Drain overlying the left lower quadrant. Jejunostomy Tube Placement 12/28/17 00:00 CONCLUSION: 1. Uncomplicated placement of a new 16 [place] jejunostomy catheter through existing tract. Physical Exam: GENERAL: Awake and alert. HEENT: EOMI, [place]. Mucosa is moist. NECK: Supple. LUNGS: Decreased clear breath sounds. HEART: Tachycardic nl S1, S2. No murmur. ABDOMEN: Decreased bowel sounds. Abdominal incision intact. EXTREMITIES: No clubbing or cyanosis. No edema. SKIN: No diffuse rash. NEUROLOGIC: Nonfocal. PSYCHIATRIC: calm LINES: No evidence of infection Assessment and Plan - Plan IMPRESSION: Candidemia following gastric perforation and gastric ischemia. Blood culture at [facility] in [place] on 11/26 had Starr glabrata. Repeat blood culture negative. treated. Status post abdominal surgery. ? abdominal wall infection at jejunal feeding tube site. Klebsiella ESBL. Leukocytosis, WBC improved. Fevers better Acute respiratory failure. Extubated. Possible Aspiration. Acute kidney disease. improved. Recent cardiac arrest. Abx associated diarrhea, bowel wall thickening c.diff neg. Clinically appears stable. RECOMMENDATIONS: Continue Ertapenem through the weekend. Monitor clinical status. Discussed with step mom.
[2018-01-04] MEDS ORDERED: Epoetin Alfa Inj 2,000 UNIT/ML Vial SQ SCH (21:00)
[2018-01-05] MEDS: Metoprolol Tartrate 25 MG Tablet PO SCH ×4 (02:51→21:12)
[2018-01-05 04:57] LABS: Baso # (Auto) 0.1 th/mm3 (0.0-0.2); Eos # (Auto) 0.4 th/mm3 (0.0-0.4); Eos % (Auto) 4.3 % (0.0-4.0); Lymph % (Auto) 10.6 % (9.0-44.0); Mean Corpuscular HGB Conc 32.8 % (32.0-36.0); Mean Corpuscular Hemoglobin 29.6 pg (27.0-34.0); Mean Corpuscular Volume 90.2 fL (80.0-100.0); Mono % (Auto) 10.2 % (0.0-8.0); Neut # (Auto) 7.2 th/mm3 (1.8-7.7); Neut % (Auto) 73.9 % (16.0-70.0); Platelet Count 236 th/mm3 (150-450); Red Cell Distribution Width 17.3 % (11.6-17.2); White Blood Count 9.8 th/mm3 (4.0-11.0)
[2018-01-05 04:59] LABS: Hemoglobin 6.5 gm/dL (13.0-17.0)
[2018-01-05 05:00] LABS: Hematocrit 19.9 % (39.0-51.0)
[2018-01-05 05:12] LABS: Calcium 7.5 mg/dL (8.5-10.1); Magnesium 2.2 mg/dL (1.5-2.5); Potassium 4.1 meq/L (3.5-5.1)
[2018-01-05 05:24] LABS: Ovalocytes 1+; Platelet Estimate Normal (Normal); Platelet Morphology Normal (Normal)
[2018-01-05] MEDS: Calcium Acetate 667 MG Capsule PO SCH ×3 (08:23→18:00)
[2018-01-05] MEDS: Ferrous Sulfate 325 MG Tablet PO SCH (08:25)
[2018-01-05] MEDS: Cholestyramine Light 4 GM Packet PO SCH ×2 (08:25→21:10)
[2018-01-05] MEDS: hydrALAZINE 50 MG Tablet PO SCH ×3 (08:25→18:00)
--- NOTE | 2018-01-05 11:42 | P.PNNP ---
Subjective Interval history: Sitting up in chair. Denies any shortness of breath, chest pain, nausea, or vomiting. Upset that last night he was incontinent in bed. Creatinine continues to improve at 1.99. HGb low at 6.5. <Princess Martel - Last Filed: 01/05/18 11:36> Physical Exam Vital signs: Vital Signs 01/04/18 12:00 01/04/18 16:00 01/04/18 20:00 Temperature 98.5 F 97.4 F L 98.6 F Pulse Rate 99 H 115 H 109 H Respiratory Rate 16 16 16 Blood Pressure 133/61 117/63 112/59 L Pulse Oximetry 99 100 95 01/05/18 00:00 01/05/18 08:00 Temperature 98.6 F 98.7 F Pulse Rate 101 H 97 H Respiratory Rate 16 16 Blood Pressure 105/58 L 114/56 L Pulse Oximetry 96 100 Intake & Output 01/04/18 01/05/18 01/05/18 18:59 06:59 18:59 Intake Total 1800 / 1800 980 / 980 Balance 1800 / 1800 980 / 980 Weight 55 kg Intake: IV 600 / 600 Potassium Chlor 20 mEq/NACL 0. 600 / 600 45% Inj 1,000 ML @ 30 mls/hr IV .CONT .Q24H [facility] Rx#:[id number] Oral 1200 / 1200 240 / 240 Tube Feeding 540 / 540 Tube Irrigant 200 / 200 Other: # Voids 5 6 Date of Last Bowel Movement 01/04/18 01/04/18 # Bowel Movements 5 6 Narrative: GENERAL: Alert and oriented. Weak and debilitaed. SKIN: Warm and dry. NECK: Supple, trachea midline. No JVD. CARDIOVASCULAR: Tachycardic. Regular rate and rhythm without murmurs, gallops, or rubs. RESPIRATORY: Breath sounds equal bilaterally. No accessory muscle use. GASTROINTESTINAL: Abdomen soft, non-tender, nondistended. J tube in place. MUSCULOSKELETAL: No cyanosis, or edema. BACK: Nontender without obvious deformity. No CVA tenderness. - Urinary Catheter Management Indwelling Temp Sensing Catheter Cath placed during this visit: no <Princess Martel - Last Filed: 01/05/18 11:36> Vital signs: Vital Signs 01/07/18 00:00 01/07/18 04:00 01/07/18 08:00 Temperature 99.1 F 98.5 F 98.2 F Pulse Rate 104 H 101 H 91 H Respiratory Rate 15 15 16 Blood Pressure 101/59 L 108/58 L 110/61 Pulse Oximetry 98 99 100 01/07/18 12:00 01/07/18 16:00 Temperature 97.8 F 98 F Pulse Rate 94 H 95 H Respiratory Rate 16 18 Blood Pressure 117/61 120/72 Pulse Oximetry 100 99 Intake & Output 01/07/18 01/07/18 01/08/18 06:59 18:59 06:59 Intake Total 200 / 200 1100 / 1100 Output Total 800 / 800 Balance 200 / 200 300 / 300 Weight 61.2 kg Intake: IV 1100 / 1100 Potassium Chlor 20 mEq/NACL 0. 1000 / 1000 45% Inj 1,000 ML @ 50 mls/hr IV .CONT .Q20H [facility] Rx#:[id number] INVanz Inj 1,000 MG In NS Inj 100 / 100 100 ML @ 200 mls/hr IV.SIG [facility] Rx#:[id number] Oral 200 / 200 Output: Urine 800 / 800 Other: # Voids 3 Date of Last Bowel Movement 01/07/18 # Bowel Movements 5 5 - Urinary Catheter Management Indwelling Temp Sensing Catheter Cath placed during this visit: no <Sanjuana Connor Q - Last Filed: 01/07/18 21:05> Assessment and Plan - Assessment (1) JACLYN (acute kidney injury) Code(s): N17.9 - Acute kidney failure, unspecified Status: Acute Plan: Patient was previously receiving dialysis. Last dialyzed 12/29/17. Patient's renal function continues to improve so dialysis has been discontinued. Creatinine is 1.99, non oliguric Continue to monitor fluid and electrolytes. Avoid nephrotoxins. (2) Gastric perforation Code(s): K25.5 - Chronic or unspecified gastric ulcer with perforation Status : Resolved Plan: s/p surgery. Subtotal gastrectomy in [place]. [facility] had: Dinh-en-y esophagojejunostomy, feeding jejunostomy placement, diagnostic EGD, primary fascial closure. Date of procedure: 11/28/17 Negative bleeding scan - follow with GI, surgery. No immediate surgical plans at this point (3) Candidemia Code(s): B37.7 - Candidal sepsis Status: Acute Plan: Blood culture at [facility] in [place] on 11/26 had Starr glabrata. Repeat blood culture is negative. Infectious disease following. S/p micafungin for candidemia. (4) Anemia Code(s): D64.9 - Anemia, unspecified Status: Acute Plan: HGB is 6.5 Transfuse PRN. <Princess Martel - Last Filed: 01/05/18 11:36> - Assessment (1) JACLYN (acute kidney injury) Code(s): N17.9 - Acute kidney failure, unspecified Status: Acute Plan: Patient seen and examined, agree with above. Has been off HD, Creatinine is 1.99, follow the urine out put and BMP. (2) Gastric perforation Code(s): K25.5 - Chronic or unspecified gastric ulcer with perforation Status : Resolved (3) Candidemia Code(s): B37.7 - Candidal sepsis Status: Acute (4) Anemia Code(s): D64.9 - Anemia, unspecified Status: Acute <Jolie Connor - Last Filed: 01/07/18 21:05>
[2018-01-05] MEDS: Collagenase Oint 30 GM Tube TOPICAL SCH (13:29)
[2018-01-05] MEDS: SODIUM CHLOR 0.9% IV.SIG SCH (13:30)
[2018-01-05] MEDS: ERTAPENEM IV.SIG SCH (13:30)
[2018-01-05] MEDS: KCL 20 mEq/NACL 0.45% Inj 1,000 ML IV.CONT SCH (13:31)
--- NOTE | 2018-01-05 13:57 | P.PN ---
Subjective Interval history: still refusing PRBC transfusion fully aware possible complications of anemia Physical Exam Vital signs: Vital Signs 01/04/18 16:00 01/04/18 20:00 01/05/18 00:00 Temperature 97.4 F L 98.6 F 98.6 F Pulse Rate 115 H 109 H 101 H Respiratory Rate 16 16 16 Blood Pressure 117/63 112/59 L 105/58 L Pulse Oximetry 100 95 96 01/05/18 08:00 01/05/18 12:00 Temperature 98.7 F 98.4 F Pulse Rate 97 H 104 H Respiratory Rate 16 17 Blood Pressure 114/56 L 113/66 Pulse Oximetry 100 100 Intake & Output 01/04/18 01/05/18 01/05/18 18:59 06:59 18:59 Intake Total 1800 / 1800 1380 / 1380 Balance 1800 / 1800 1380 / 1380 Weight 55 kg Intake: IV 600 / 600 400 / 400 Potassium Chlor 20 mEq/NACL 0. 600 / 600 400 / 400 45% Inj 1,000 ML @ 30 mls/hr IV .CONT .Q24H [facility] Rx#:[id number] Oral 1200 / 1200 240 / 240 Tube Feeding 540 / 540 Tube Irrigant 200 / 200 Other: # Voids 5 6 Date of Last Bowel Movement 01/04/18 01/04/18 # Bowel Movements 5 6 Narrative: GENERAL: Alert and oriented. Weak and debilitated. SKIN: Warm and dry. NECK: Supple, trachea midline. No JVD. CARDIOVASCULAR: Tachycardic. Regular rate and rhythm without murmurs, gallops, or rubs. RESPIRATORY: Breath sounds equal bilaterally. No accessory muscle use. GASTROINTESTINAL: Abdomen soft, non-tender, nondistended. J tube in place. MUSCULOSKELETAL: No cyanosis, or edema. BACK: Nontender without obvious deformity. No CVA tenderness. - Urinary Catheter Management Indwelling Temp Sensing Catheter Cath placed during this visit: no Results - Labs CBC & Chem 7: 01/05/18 04:30 01/05/18 04:30 Laboratory Results - last 24 hr 01/05/18 01/05/18 04:30 04:30 WBC 9.8 RBC 2.20 L Hgb 6.5 L* Hct 19.9 L* MCV 90.2 MCH 29.6 MCHC 32.8 RDW 17.3 H Plt Count 236 MPV 9.0 Prelim Diff (Auto) Slide review pending Neut % (Auto) 73.9 H Lymph % (Auto) 10.6 [place] % (Auto) 10.2 H Eos % (Auto) 4.3 H Baso % (Auto) 1.0 Neut # (Auto) 7.2 Lymph # (Auto) 1.0 [place] # (Auto) 1.0 H Eos # (Auto) 0.4 Baso # (Auto) 0.1 WBC Differential . Diff Scan Auto diff confirmed Differential Comment . Platelet Estimate Normal Platelet Morphology Normal Ovalocytes 1+ H Sodium 146 H Potassium 4.1 Chloride 118 H Carbon Dioxide 18.0 L Anion Gap 10 BUN 48 H Creatinine 1.99 H Estimated GFR 44 L Random Glucose 97 Calcium 7.5 L Magnesium 2.2 Microbiology 01/05/18 12:11 Stool Stool Occult Blood (DEB) - Final Hemoccult negative 12/07/17 10:10 Fluid - Pleural fluid Fungal Smear - Final No fungal elements seen 12/07/17 10:10 Fluid - Pleural fluid Fungal Culture - Final No growth in 4 weeks 12/07/17 10:10 Fluid - Pleural fluid Acid Fast Bacilli Smear - Final No acid fast bacilli seen 12/07/17 10:10 Fluid - Pleural fluid Mycobacterial Culture - Preliminary No growth in 4 weeks - Procedures Jejunostomy tube placement Assessment and Plan - Assessment (1) JACLYN (acute kidney injury) Code(s): N17.9 - Acute kidney failure, unspecified Status: Acute (2) Acute respiratory failure Code(s): J96.00 - Acute respiratory failure, unspecified whether with hypoxia or hypercapnia Status: Acute (3) Gastric perforation Code(s): K25.5 - Chronic or unspecified gastric ulcer with perforation Status : Resolved (4) Candidemia Code(s): B37.7 - Candidal sepsis Status: Acute (5) DVT (deep venous thrombosis) Code(s): I82.409 - Acute embolism and thrombosis of unspecified deep veins of unspecified lower extremity Status: Acute (6) Anemia Code(s): D64.9 - Anemia, unspecified Status: Acute - Plan ACUTE METABOLIC ENCEPHALOPATHY w ACUTE DELIRIUM due to critical illness: Resolving, cont oob w pt, cont st, ot, now can participate ACUTE RESPIRATORY FAILURE /TENSION PNEUMOTHORAX left pigtail chest tube removed 12/18 Extubated 12/22 continue Bronchodilator, Mucolytic and Incentive spirometry. now stable on RA CARDIAC ARREST 11/23/17 PEA arrest due to shock secondary to acute gastric perforation and tension pneumoperitoneum -Currently hemodynamically stable. ANTERIOR GASTRIC PERFORATION with TENSION PNEUMOPERITONEUM/ S/P SUBTOTAL GASTRECTOMY w feeding jejunostomy - Status post Exploratory laparotomy repair of perforation with stapler and Second look 11/25 found gastric necrosis requiring subtotal gastrectomy and placement of AB Thera VAC dressing, transferred to [facility] 11/28 reexploration with Dinh-en-y esophagojejunostomy, feeding jejunostomy placement diagnostic EGD primary fascial closure. - cont wound care, diet as tolerated, tube feeds as marvin. ISCHEMIC HEPATOPATHY resolving GIB with ANEMIA OF ACUTE BLOOD LOSS EGD, enteroscopy 12/12/2017 unremarkable, colonoscopy 12/13/2017 unremarkable. Bleeding scan did not show any particular site of bleeding Had right upper quadrant ultrasound on 11/27/17 that demonstrated contracted gallbladder with sludge. No evidence of cholecystitis. Echogenicity in right liver related to focal fatty change or altered perfusion, patent vascularity. Protonix per GI. Appreciate general surgery following. Continue mechanical soft, thickened liquid diet. ACUTE RENAL FAILURE secondary to ISCHEMIC ATN requiring dialysis HD started 11/26 Nephrology following. Hold hemodialysis per nephrology since patient's renal function continues to improve. KLEBSIELLA ESBL ABD WOUND INFECTION - cont invanz per ID CANDIDEMIA following gastric perforation and gastric ischemia. Blood culture at [facility] in [place] on 11/26 had Starr glabrata. Repeat blood culture is negative. Infectious disease following. S/p micafungin for candidemia. Symptomatic ANEMIA requiring transfusion/THROMBOCYTOPENIA resolved. Iron deficient no active bleeding but will transfuse packed RBC patient is tachycardic, patient is still refusing transfusion. Per renal no indication for Epogen order additional Guaiac BILATERAL UE DVT U/s 11/26 BUE - thrombus R axillary, brachial and basilic veins and thrombus in left axillary and left brachial veins. Hematology consult was obtained at [facility] and patient was treated with heparin. Continue subcu heparin here(On hold secondary to GIB and symptomatic anemia) Repeat US prior to PIV so central line can be dc PRESSURE ULCER OF SACRUM/COCCYX and BUTTOCKS Wound care nursing following. Continue with dressing change and frequent turning. MUSCLE WEAKNESS AND MYOPATHY OF CRITICAL ILLNESS - extremely weak, cont PT,will require placement SEVERE PROTEIN CALORIE MALNUTRITION w bmi 14.5, alb 1.7, w mild dysphagia and s/ p partial gastrectomy, cont thickened diet as tolerated, has poor appetite, supplemental Jejunostomy TF till bmi improves may change to nightly feeds supplementation and oral during daytime if his po intake improves, fu w nutrition and st recommendations. Improving weight BMI up to 16.7. Will request calorie counting HTN - hydralazine and metoprolol HYPOKALEMIA - replace w caution, fu w nephrology. Repeat BMP shows improving hypokalemia on scheduled potassium LEUKOCYTOSIS - no fever, DYSPHAGIA - asp risk, cont thickened liq per ST,resume oral diet as tolerated DIARRHEA- neg for cdif, prob from abx and nephro tf, immodium not helping, prob due to tube feeding, added florastor, questran. Reconsult dietitian switched to Vital DISPO - will need placement insurance pending (2) Acute respiratory failure Qualifiers: Respiratory failure complication: hypoxia Qualified Code(s): J96.01 - Acute respiratory failure with hypoxia
--- NOTE | 2018-01-05 15:47 | US ---
EXAM DATE: 01/05/2018 3:44 PM EST AGE/SEX: 47 years / Male INDICATIONS: Acute embolism and thrombosis of deep veins of upper extremity, bilateral. CLINICAL DATA: This is the patient's initial encounter. Patient reports that signs and symptoms have been present for 1 day and indicates a pain score of 0/10. MEDICAL/SURGICAL HISTORY: None. None. COMPARISON: No prior exams available for comparison. FINDINGS: Right Upper Extremity: The vessels are compressible and augmentation response is documented. No fill ing defects are seen. The flow is phasic with respiration. Left Upper Extremity: The vessels are compressible and augmentation response is documented. No filli ng defects are seen. The flow is phasic with respiration. Other: None. CONCLUSION: 1. The study is negative for bilateral upper extremity deep venous thrombosis. Electronically signed by: Remy Hill MD 01/05/2018 3:45 PM EST
[2018-01-06] MEDS: Metoprolol Tartrate 25 MG Tablet PO SCH ×4 (03:20→21:07)
[2018-01-06] MEDS: Ferrous Sulfate 325 MG Tablet PO SCH (08:41)
[2018-01-06] MEDS: Calcium Acetate 667 MG Capsule PO SCH ×3 (08:42→18:30)
[2018-01-06] MEDS: hydrALAZINE 50 MG Tablet PO SCH ×3 (08:42→18:29)
[2018-01-06] MEDS: Cholestyramine Light 4 GM Packet PO SCH ×2 (08:43→21:05)
--- NOTE | 2018-01-06 09:35 | P.PN ---
Subjective Interval history: F/u anemia and diarrhea. Still refusing blood transfusion. Ongoing diarrhea. No new complaints. Physical Exam Vital signs: Vital Signs 01/05/18 12:00 01/05/18 16:00 01/05/18 20:00 Temperature 98.4 F 98.6 F 98.8 F Pulse Rate 104 H 110 H 108 H Respiratory Rate 17 17 16 Blood Pressure 113/66 110/58 L 119/70 Pulse Oximetry 100 98 99 01/06/18 00:00 01/06/18 08:00 Temperature 98.6 F 98.2 F Pulse Rate 108 H 102 H Respiratory Rate 14 18 Blood Pressure 96/55 L 125/60 Pulse Oximetry 99 99 Intake & Output 01/05/18 01/06/18 01/06/18 18:59 06:59 18:59 Intake Total 940 / 940 720 / 720 Balance 940 / 940 720 / 720 Weight 60.3 kg Intake: IV 100 / 100 INVanz Inj 1,000 MG In NS Inj 100 / 100 100 ML @ 200 mls/hr IV.SIG DAILY COLE Rx#:[id number] Oral 840 / 840 720 / 720 Other: # Voids 3 2 Date of Last Bowel Movement 01/04/18 # Bowel Movements 3 7 Narrative: GENERAL: Alert and oriented. Weak and debilitated. SKIN: Warm and dry. NECK: Supple, trachea midline. No JVD. CARDIOVASCULAR: Tachycardic. Regular rate and rhythm without murmurs, gallops, or rubs. RESPIRATORY: Breath sounds equal bilaterally. No accessory muscle use. GASTROINTESTINAL: Abdomen soft, non-tender, nondistended. J tube in place. MUSCULOSKELETAL: No cyanosis, or edema. BACK: Nontender without obvious deformity. No CVA tenderness. - Urinary Catheter Management Indwelling Temp Sensing Catheter Cath placed during this visit: no Results - Labs CBC & Chem 7: 01/05/18 04:30 01/05/18 04:30 Microbiology 01/05/18 12:11 Stool Stool Occult Blood (DEB) - Final Hemoccult negative - Imaging Impressions Venous Doppler Study 01/05/18 12:27 CONCLUSION: 1. The study is negative for bilateral upper extremity deep venous thrombosis. - Procedures Jejunostomy tube placement Assessment and Plan - Assessment (1) JACLYN (acute kidney injury) Code(s): N17.9 - Acute kidney failure, unspecified Status: Acute (2) Acute respiratory failure Code(s): J96.00 - Acute respiratory failure, unspecified whether with hypoxia or hypercapnia Status: Acute (3) Gastric perforation Code(s): K25.5 - Chronic or unspecified gastric ulcer with perforation Status : Resolved (4) Candidemia Code(s): B37.7 - Candidal sepsis Status: Acute (5) DVT (deep venous thrombosis) Code(s): I82.409 - Acute embolism and thrombosis of unspecified deep veins of unspecified lower extremity Status: Acute (6) Anemia Code(s): D64.9 - Anemia, unspecified Status: Acute - Plan ACUTE METABOLIC ENCEPHALOPATHY w ACUTE DELIRIUM due to critical illness: Resolving, cont oob w pt, cont st, ot, now can participate ACUTE RESPIRATORY FAILURE /TENSION PNEUMOTHORAX left pigtail chest tube removed 12/18 Extubated 12/22 continue Bronchodilator, Mucolytic and Incentive spirometry. now stable on RA CARDIAC ARREST 11/23/17 PEA arrest due to shock secondary to acute gastric perforation and tension pneumoperitoneum -Currently hemodynamically stable. 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 - cont wound care, diet as tolerated, tube feeds as marvin. ISCHEMIC HEPATOPATHY resolving GIB with ANEMIA OF ACUTE BLOOD LOSS EGD, enteroscopy 12/12/2017 unremarkable, colonoscopy 12/13/2017 unremarkable. Bleeding scan did not show any particular site of bleeding Had right upper quadrant ultrasound on 11/27/17 that demonstrated contracted gallbladder with sludge. No evidence of cholecystitis. Echogenicity in right liver related to focal fatty change or altered perfusion, patent vascularity. Protonix per GI. Appreciate general surgery following. Continue mechanical soft, thickened liquid diet. ACUTE RENAL FAILURE secondary to ISCHEMIC ATN requiring dialysis HD started 11/26 Nephrology following. Hold hemodialysis per nephrology since patient's renal function continues to improve. KLEBSIELLA ESBL ABD WOUND INFECTION - cont invanz per ID CANDIDEMIA following gastric perforation and gastric ischemia. Blood culture at [facility] in [place] on 11/26 had Starr glabrata. Repeat blood culture is negative. Infectious disease following. S/p micafungin for candidemia. Symptomatic ANEMIA requiring transfusion/THROMBOCYTOPENIA resolved. Iron deficient no active bleeding but will transfuse packed RBC patient is tachycardic, patient is still refusing transfusion. Per renal no indication for Epogen order additional Guaiac negative x2 BILATERAL UE DVT U/s 11/26 BUE - thrombus R axillary, brachial and basilic veins and thrombus in left axillary and left brachial veins. Hematology consult was obtained at [facility] and patient was treated with heparin. Continue subcu heparin here(On hold secondary to GIB and symptomatic anemia) Repeat US resolved DVT can safely start PIV PRESSURE ULCER OF SACRUM/COCCYX and BUTTOCKS Wound care nursing following. Continue with dressing change and frequent turning. MUSCLE WEAKNESS AND MYOPATHY OF CRITICAL ILLNESS - extremely weak, cont PT,will require placement SEVERE PROTEIN CALORIE MALNUTRITION w bmi 14.5, alb 1.7, w mild dysphagia and s/ p partial gastrectomy, cont thickened diet as tolerated, has poor appetite, supplemental Jejunostomy TF till bmi improves may change to nightly feeds supplementation and oral during daytime if his po intake improves, fu w nutrition and st recommendations. Improving weight BMI up to 16.7. Will request calorie counting HTN - hydralazine and metoprolol HYPOKALEMIA - replace w caution, fu w nephrology. Repeat BMP shows improving hypokalemia on scheduled potassium LEUKOCYTOSIS - no fever, DYSPHAGIA - asp risk, cont thickened liq per ST,resume oral diet as tolerated DIARRHEA- neg for cdif, prob from abx and nephro tf, immodium not helping, prob due to tube feeding, added florastor, questran. Reconsult dietitian switched to Vital. Start Lomotil DISPO - will need placement insurance pending (2) Acute respiratory failure Qualifiers: Respiratory failure complication: hypoxia Qualified Code(s): J96.01 - Acute respiratory failure with hypoxia
[2018-01-06] MEDS: SODIUM CHLOR 0.9% IV.SIG SCH (09:39)
[2018-01-06] MEDS: ERTAPENEM IV.SIG SCH (09:39)
[2018-01-06] MEDS: Collagenase Oint 30 GM Tube TOPICAL SCH (13:26)
--- NOTE | 2018-01-06 14:11 | P.PNNP ---
Subjective Interval history: No acute events overnight. Denies any shortness of breath, nausea, or vomiting. Continues to have loose stools. <Princess Martel - Last Filed: 01/06/18 14:08> Physical Exam Vital signs: Vital Signs 01/05/18 16:00 01/05/18 20:00 01/06/18 00:00 Temperature 98.6 F 98.8 F 98.6 F Pulse Rate 110 H 108 H 108 H Respiratory Rate 17 16 14 Blood Pressure 110/58 L 119/70 96/55 L Pulse Oximetry 98 99 99 01/06/18 08:00 01/06/18 12:00 Temperature 98.2 F 98.0 F Pulse Rate 102 H 101 H Respiratory Rate 18 19 Blood Pressure 125/60 126/68 Pulse Oximetry 99 100 Intake & Output 01/05/18 01/06/18 01/06/18 18:59 06:59 18:59 Intake Total 940 / 940 720 / 720 100 / 100 Balance 940 / 940 720 / 720 100 / 100 Weight 60.3 kg Intake: IV 100 / 100 100 / 100 INVanz Inj 1,000 MG In NS Inj 100 / 100 100 / 100 100 ML @ 200 mls/hr IV.SIG DAILY COLE Rx#:[id number] Oral 840 / 840 720 / 720 Other: # Voids 3 2 Date of Last Bowel Movement 01/04/18 01/04/18 # Bowel Movements 3 7 Narrative: GENERAL: Alert and oriented. Weak and debilitated. SKIN: Warm and dry. NECK: Supple, trachea midline. No JVD. CARDIOVASCULAR: Tachycardic. Regular rate and rhythm without murmurs, gallops, or rubs. RESPIRATORY: Breath sounds equal bilaterally. No accessory muscle use. GASTROINTESTINAL: Abdomen soft, non-tender, nondistended. J tube in place. MUSCULOSKELETAL: No cyanosis, or edema. BACK: Nontender without obvious deformity. No CVA tenderness. - Urinary Catheter Management Indwelling Temp Sensing Catheter Cath placed during this visit: no <Princess Martel - Last Filed: 01/06/18 14:08> Vital signs: Vital Signs 01/08/18 00:00 01/08/18 01:07 01/08/18 08:00 Temperature 98.4 F 98.4 F Pulse Rate 91 H 94 H Respiratory Rate 18 17 Blood Pressure 82/47 L 114/63 115/64 Pulse Oximetry 97 100 01/08/18 12:00 01/08/18 16:00 01/08/18 17:48 Temperature 97.5 F L 97.1 F L 97.7 F Pulse Rate 91 H 124 H 124 H Respiratory Rate 17 17 18 Blood Pressure 101/55 L 109/54 L 122/60 Pulse Oximetry 100 100 100 Intake & Output 01/08/18 01/08/18 01/09/18 06:59 18:59 06:59 Intake Total 1120 / 1120 950 / 950 Output Total 1000 / 1000 Balance 120 / 120 950 / 950 Weight 58.4 kg Intake: IV 1000 / 1000 100 / 100 Potassium Chlor 20 mEq/NACL 0. 1000 / 1000 45% Inj 1,000 ML @ 50 mls/hr IV .CONT .Q20H COLE Rx#:[id number] INVanz Inj 1,000 MG In NS Inj 100 / 100 100 ML @ 200 mls/hr IV.SIG DAILY COLE Rx#:[id number] Oral 120 / 120 850 / 850 Intake (Blood Product) Amt 0 / 0 Rbc As-3 Leukoreduced Unit 0 / 0 [id number] Output: Urine 1000 / 1000 Other: # Voids 4 Date of Last Bowel Movement 01/08/18 01/08/18 # Bowel Movements 4 - Urinary Catheter Management Indwelling Temp Sensing Catheter Cath placed during this visit: no <Jolie Connor - Last Filed: 01/08/18 20:43> Assessment and Plan - Assessment (1) JACLYN (acute kidney injury) Code(s): N17.9 - Acute kidney failure, unspecified Status: Acute Plan: Patient was previously receiving dialysis. Last dialyzed 12/29/17. Patient's renal function continues to improve so dialysis has been discontinued. Creatinine is 1.99 yesterday, non oliguric Continue to monitor fluid and electrolytes. Avoid nephrotoxins. Labs in AM Dr. Robertson to follow in AM (2) Gastric perforation Code(s): K25.5 - Chronic or unspecified gastric ulcer with perforation Status : Resolved Plan: s/p surgery. Subtotal gastrectomy in [place]. In [facility] he had: Dinh-en-y esophagojejunostomy, feeding jejunostomy placement, diagnostic EGD, primary fascial closure. Date of procedure: 11/28/17 Negative bleeding scan - follow with GI, surgery. No immediate surgical plans at this point (3) Candidemia Code(s): B37.7 - Candidal sepsis Status: Acute Plan: Blood culture at [facility] in [place] on 11/26 had Starr glabrata. Repeat blood culture is negative. Infectious disease following. S/p micafungin for candidemia. (4) Anemia Code(s): D64.9 - Anemia, unspecified Status: Acute Plan: HGB has been low Transfuse PRN. <Princess Martel - Last Filed: 01/06/18 14:08> - Assessment (1) JACLYN (acute kidney injury) Code(s): N17.9 - Acute kidney failure, unspecified Status: Acute Plan: Patient seen and examined, agree with above. Dialysis is on hold. Follow the urine out put and BMP. (2) Gastric perforation Code(s): K25.5 - Chronic or unspecified gastric ulcer with perforation Status : Resolved (3) Candidemia Code(s): B37.7 - Candidal sepsis Status: Acute (4) Anemia Code(s): D64.9 - Anemia, unspecified Status: Acute <Jolie Connor - Last Filed: 01/08/18 20:43>
[2018-01-06] MEDS: KCL 20 mEq/NACL 0.45% Inj 1,000 ML IV.CONT SCH (16:09)
[2018-01-06] MEDS: Diphenoxylate/Atropine 2.5/0.025 MG Tablet PO SCH (18:30)
[2018-01-07] MEDS: Diphenoxylate/Atropine 2.5/0.025 MG Tablet PO SCH ×4 (00:07→18:36)
[2018-01-07] MEDS: Metoprolol Tartrate 25 MG Tablet PO SCH ×4 (03:25→20:34)
[2018-01-07 07:26] LABS: Baso # (Auto) 0.2 th/mm3 (0.0-0.2); Baso % (Auto) 2.6 % (0.0-2.0); Eos # (Auto) 0.5 th/mm3 (0.0-0.4); Eos % (Auto) 7.1 % (0.0-4.0); Lymph # (Auto) 1.2 th/mm3 (1.0-4.8); Lymph % (Auto) 16.4 % (9.0-44.0); Mean Corpuscular HGB Conc 33.8 % (32.0-36.0); Mean Corpuscular Hemoglobin 30.7 pg (27.0-34.0); Mean Corpuscular Volume 90.7 fL (80.0-100.0); Mean Platelet Volume 8.8 fL (7.0-11.0); Mono # (Auto) 0.8 th/mm3 (0.0-0.9); Mono % (Auto) 11.3 % (0.0-8.0); Neut # (Auto) 4.6 th/mm3 (1.8-7.7); Neut % (Auto) 62.6 % (16.0-70.0); Platelet Count 257 th/mm3 (150-450); Red Blood Count 2.04 mil/mm3 (4.50-5.90); Red Cell Distribution Width 17.5 % (11.6-17.2); White Blood Count 7.3 th/mm3 (4.0-11.0)
[2018-01-07 07:40] LABS: Hematocrit 18.5 % (39.0-51.0); Hemoglobin 6.2 gm/dL (13.0-17.0)
[2018-01-07 08:06] LABS: Calcium 8.2 mg/dL (8.5-10.1); Magnesium 1.7 mg/dL (1.5-2.5); Potassium 4.5 meq/L (3.5-5.1)
[2018-01-07] MEDS: Cholestyramine Light 4 GM Packet PO SCH ×2 (09:03→20:34)
[2018-01-07] MEDS: SODIUM CHLOR 0.9% IV.SIG SCH (09:04)
[2018-01-07] MEDS: ERTAPENEM IV.SIG SCH (09:04)
[2018-01-07] MEDS: Ferrous Sulfate 325 MG Tablet PO SCH (09:04)
[2018-01-07] MEDS: Calcium Acetate 667 MG Capsule PO SCH ×3 (09:04→18:36)
[2018-01-07] MEDS: hydrALAZINE 50 MG Tablet PO SCH ×4 (09:04→18:36)
[2018-01-07] MEDS: KCL 20 mEq/NACL 0.45% Inj 1,000 ML IV.CONT SCH (09:12)
--- NOTE | 2018-01-07 09:59 | P.PN ---
Subjective Interval history: Follow-up anemia. Agrees to blood transfusion Physical Exam Vital signs: Vital Signs 01/06/18 12:00 01/06/18 16:00 01/06/18 20:00 Temperature 98.0 F 98.0 F 99.1 F Pulse Rate 101 H 103 H 107 H Respiratory Rate 19 19 17 Blood Pressure 126/68 123/62 120/59 L Pulse Oximetry 100 100 99 01/07/18 00:00 01/07/18 04:00 01/07/18 08:00 Temperature 99.1 F 98.5 F 98.2 F Pulse Rate 104 H 101 H 91 H Respiratory Rate 15 15 16 Blood Pressure 101/59 L 108/58 L 110/61 Pulse Oximetry 98 99 100 Intake & Output 01/06/18 01/07/18 01/07/18 18:59 06:59 18:59 Intake Total 2200 / 2200 200 / 200 1000 / 1000 Balance 2200 / 2200 200 / 200 1000 / 1000 Weight 61.2 kg Intake: IV 1000 / 1000 1000 / 1000 Potassium Chlor 20 mEq/NACL 0. 900 / 900 1000 / 1000 45% Inj 1,000 ML @ 50 mls/hr IV .CONT .Q20H COLE Rx#:[id number] INVanz Inj 1,000 MG In NS Inj 100 / 100 100 ML @ 200 mls/hr IV.SIG DAILY COLE Rx#:[id number] Oral 1200 / 1200 200 / 200 Other: # Voids 3 3 Date of Last Bowel Movement 01/04/18 # Bowel Movements 5 5 Narrative: GENERAL: Alert and oriented. Weak and debilitated. SKIN: Warm and dry. NECK: Supple, trachea midline. No JVD. CARDIOVASCULAR: Tachycardic. Regular rate and rhythm without murmurs, gallops, or rubs. RESPIRATORY: Breath sounds equal bilaterally. No accessory muscle use. GASTROINTESTINAL: Abdomen soft, non-tender, nondistended. J tube in place. MUSCULOSKELETAL: No cyanosis, or edema. BACK: Nontender without obvious deformity. No CVA tenderness. - Urinary Catheter Management Indwelling Temp Sensing Catheter Cath placed during this visit: no Results - Labs CBC & Chem 7: 01/07/18 06:20 01/07/18 06:20 Laboratory Results - last 24 hr 01/03/18 01/07/18 01/07/18 10:41 06:20 06:20 WBC 7.3 RBC 2.04 L Hgb 6.2 L* Hct 18.5 L* MCV 90.7 MCH 30.7 MCHC 33.8 RDW 17.5 H Plt Count 257 MPV 8.8 Neut % (Auto) 62.6 Lymph % (Auto) 16.4 [place] % (Auto) 11.3 H Eos % (Auto) 7.1 H Baso % (Auto) 2.6 H Neut # (Auto) 4.6 Lymph # (Auto) 1.2 [place] # (Auto) 0.8 Eos # (Auto) 0.5 H Baso # (Auto) 0.2 WBC Differential . Differential Comment Auto diff final Sodium 140 Potassium 4.5 Chloride 116 H Carbon Dioxide 18.0 L Anion Gap 6 BUN 25 H Creatinine 1.56 H Estimated GFR 58 L Random Glucose 75 Calcium 8.2 L Magnesium 1.7 MTS Gel Crossmatch See Detail Microbiology 01/06/18 13:36 Stool Stool Occult Blood (DEB) - Final Hemoccult negative - Procedures Jejunostomy tube placement Assessment and Plan - Assessment (1) JACLYN (acute kidney injury) Code(s): N17.9 - Acute kidney failure, unspecified Status: Acute (2) Acute respiratory failure Code(s): J96.00 - Acute respiratory failure, unspecified whether with hypoxia or hypercapnia Status: Acute (3) Gastric perforation Code(s): K25.5 - Chronic or unspecified gastric ulcer with perforation Status : Resolved (4) Candidemia Code(s): B37.7 - Candidal sepsis Status: Acute (5) DVT (deep venous thrombosis) Code(s): I82.409 - Acute embolism and thrombosis of unspecified deep veins of unspecified lower extremity Status: Acute (6) Anemia Code(s): D64.9 - Anemia, unspecified Status: Acute - Plan ACUTE METABOLIC ENCEPHALOPATHY w ACUTE DELIRIUM due to critical illness: Resolving, cont oob w pt, cont st, ot, now can participate ACUTE RESPIRATORY FAILURE /TENSION PNEUMOTHORAX left pigtail chest tube removed 12/18 Extubated 12/22 continue Bronchodilator, Mucolytic and Incentive spirometry. now stable on RA CARDIAC ARREST 11/23/17 PEA arrest due to shock secondary to acute gastric perforation and tension pneumoperitoneum -Currently hemodynamically stable. 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 - cont wound care, diet as tolerated, tube feeds on hold patient pulled PEG tube. Dietitian recommends to liberalize diet to regular mechanical soft with Ensure and live 3 times a day, Ensure pudding 3 times a day and Avelino twice a day and repeat calorie count January 11 January 13 ISCHEMIC HEPATOPATHY resolving GIB with ANEMIA OF ACUTE BLOOD LOSS EGD, enteroscopy 12/12/2017 unremarkable, colonoscopy 12/13/2017 unremarkable. Bleeding scan did not show any particular site of bleeding Had right upper quadrant ultrasound on 11/27/17 that demonstrated contracted gallbladder with sludge. No evidence of cholecystitis. Echogenicity in right liver related to focal fatty change or altered perfusion, patent vascularity. Protonix per GI. Appreciate general surgery following. Continue mechanical soft, thickened liquid diet. ACUTE RENAL FAILURE secondary to ISCHEMIC ATN requiring dialysis HD started 11/26 Nephrology following. Hold hemodialysis per nephrology since patient's renal function continues to improve. Nephrology has signed off KLEBSIELLA ESBL ABD WOUND INFECTION - cont invanz per ID CANDIDEMIA following gastric perforation and gastric ischemia. Blood culture at [facility] in [place] on 11/26 had Starr glabrata. Repeat blood culture is negative. Infectious disease following. S/p micafungin for candidemia. Symptomatic ANEMIA requiring transfusion/THROMBOCYTOPENIA resolved. Iron deficient no active bleeding but will transfuse packed RBC patient is tachycardic, patient is finally consenting to transfusion. Per renal no indication for Epogen order additional Guaiac negative x2 BILATERAL UE DVT U/s 11/26 BUE - thrombus R axillary, brachial and basilic veins and thrombus in left axillary and left brachial veins. Hematology consult was obtained at [facility] and patient was treated with heparin. Continue subcu heparin here(On hold secondary to GIB and symptomatic anemia) Repeat US resolved DVT can safely start PIV PRESSURE ULCER OF SACRUM/COCCYX and BUTTOCKS Wound care nursing following. Continue with dressing change and frequent turning. MUSCLE WEAKNESS AND MYOPATHY OF CRITICAL ILLNESS - extremely weak, cont PT,will require placement SEVERE PROTEIN CALORIE MALNUTRITION w bmi 14.5, alb 1.7, w mild dysphagia and s/ p partial gastrectomy, cont thickened diet as tolerated, has poor appetite, supplemental Jejunostomy TF till bmi improves may change to nightly feeds supplementation and oral during daytime if his po intake improves, fu w nutrition and st recommendations. Improving weight BMI up to 16.7. Tube feeding on hold patient pulled PEG. Dietitian recommends to liberalize diet to regular mechanical soft with Ensure and live 3 times a day, Ensure pudding 3 times a day and Avelino twice a day and repeat calorie count January 11 January 13 HTN - hydralazine and metoprolol HYPOKALEMIA - replace w caution, fu w nephrology. Repeat BMP shows improving hypokalemia on scheduled potassium LEUKOCYTOSIS - no fever, DYSPHAGIA - asp risk, cont thickened liq per ST,resume oral diet as tolerated DIARRHEA- neg for cdif, prob from abx and nephro tf, immodium not helping, prob due to tube feeding, added florastor, questran. Reconsult dietitian switched to Vital. [id number] Lomotil for 2 days DISPO - will need placement insurance pending Discharge Planning: Gaurav has declined (2) Acute respiratory failure Qualifiers: Respiratory failure complication: hypoxia Qualified Code(s): J96.01 - Acute respiratory failure with hypoxia
[2018-01-07] MEDS ORDERED: Sodium Chlor 0.9% Inj 250 ML IV.SIG SCH (10:00)
[2018-01-07] MEDS: Collagenase Oint 30 GM Tube TOPICAL SCH (12:13)
--- NOTE | 2018-01-07 12:23 | P.DIET ---
Nutritional Evaluation Type of nutrition evaluation: follow-up Nutrition consult regarding: Tube Feeding, TPN/PPN (TPN D/C'ed) Nutrition screening: [facility] Screening comments: 12/25 NEW MDC for post gastrectomy diet 12/31 TF causing diarrhea? 01/02 [facility] for Calorie Counting Subjective Subjective Comments: Pt says he has mixed the Avelino packet into liquid and it was not difficult for him; adds that he is "okay" w/mixing and drinking the Avelino BID for two weeks( end date 01/21/18). Pt receptive to receiving Ensure Enlive and Ensure pudding w /meals. Encouraged pt to drink fluids between meals vs w/meals-pt says he understands. Pt says he feels like he has an improved appetite since the TF'ing is no longer running. Food preferences taken during this visit. Pt says his usual wt, prior to this hospital admission, is "around 200-lb" Objective - Diagnosis Gastroenteritis - Objective % IBW: 92 (IBW = 190#) Body Weight Used for Calculations: Actual (79.4) Energy Needs - Lower Range (kCal/kg): 28 Energy Needs - Upper Range (kCal/kg): 32 Lower Limit kCal/kg (kCals): 2,223 Upper Limit kCal/kg (kCals): 2,541 Lower Limit Protein Factor (Grams per Kg): 1.2 Upper Limit Protein Factor (Grams per Kg): 1.5 Lower Protein Needs (Protein): 95 Upper Protein Needs (Protein): 119 Dietitian Reviewed in Medical Record: Current diet, Curent medications, Intake & Output, Labs, Medical history Diet Order: Renal: 2 gm Na, mech soft, necter thickened liquids Oral Diet Intake Amount: Poor <50% Speech Therapy Recommendations: Yes (01/01/18 Mech Soft Thin Liquids, TF'ing as primary) Wound Care Note: WOCN 12/25/17 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; Left buttock Pressure Injury Stage III Objective Comments: see recent extensive hx in H&P including Anterior Gastric Perforation w/Tension Pneumoperitoneum s/p subtotal gastrectomy Labs inlcude: K 4.5, Creatinine 1.56, estGFR 58 Meds include: Phoslo, Questran, Catapres, Lomotil, Haldol, Avelino, Metoprolol, Zofran LBM 01/04 Feeding - kCal Count Day 1 kCal Intake: 255 Day 1 Protein Intake: 13 Day 2 kCal Intake: 910 Day 2 Protein Intake: 43 Day 3 kCal Intake: 610 Day 3 Protein Intake: 41 Assessment Assessment: Pt continues at high nutrition risk r/t extended hospital stay and clinical status, significant wt loss and increased needs for wound healing; pt is s/p subtotal gastrectomy. Pt has been receiving TF'ing w/Vital 1.5 @ goal rate 65ml/ hr. Feeding tube has now been discontinued d/t pt pulled the j-tube. MDC for Calorie Count w/Inadequate po intake. Pt averaged 27% for kcal needs and 34% for protein needs. Rec liberalizing diet to Mech Soft. Monitor renal labs closely. Plan to send Ensure Enlive TID(= 350 kcal and 20g protein per serving) w/pt encouraged pt to drink Enlive between meals. Plan to send Ensure Pudding TID(= 170 kcal and 4g protein per serving). Plan to restart Calorie Count through 01/13/18 w/Nutrition Recs to follow 01/14/18. Continue Avelino 1- packet BID to aid in wound healing to end 01/21/18. [place] Food Preferences. Wt loss 32kg since admission 11/29/17. Brought forward from previous note: A Post gastrectomy diet usually consists of 6 small meals per day, only 4 ozs of fluid at meals, other fluids 1 hour before or after meals. Food needs to be well chewed. Of note: the hospital does not provide an option for 6 small meals a day. Nursing would need to order snacks and take them off the tray, put them in the refrigerator OR Ensure can be given between meals, but again nursing needs to control that. Recommendations: 1.Feeding tube has now been discontinued d/t pt pulled the j-tube 2. MDC for Calorie Count w/Inadequate po intake 3. [facility] 4. Plan to send Ensure Enlive TID and Encouraged Pt to drink Enlive between meals 5. Plan to send Ensure Pudding TID 6. Plan to restart Calorie Count 01/11/18 through 01/13/18 w/Nutrition Recs to follow 01/14/18 7. Continue Avelino 1-packet BID to aid in wound healing to end 01/21/18 8. [place] Food Preferences 9. Noted Wt loss 32kg since admission 11/29/17 Dietitian to Monitor: Lab values, Renal labs, Supplement acceptance, Intake & Output, Diet tolerance, Weight change, PO Intake, Wound/skin status, Swallow recommendations, Medical course
--- NOTE | 2018-01-07 14:16 | P.PNNP ---
Subjective Interval history: Patient was seen, no distress. Patient's renal function continues to improve, Creatinine is 1.56. Patient's Hemoglobin was 6.2. Discussed blood transfusion with patient. Patient was previously refusing them. Patient stated he would consider a transfusion after speaking with family. <Jocelyn Crews - Last Filed: 01/07/18 14:17> Physical Exam Vital signs: Vital Signs 01/06/18 16:00 01/06/18 20:00 01/07/18 00:00 Temperature 98.0 F 99.1 F 99.1 F Pulse Rate 103 H 107 H 104 H Respiratory Rate 19 17 15 Blood Pressure 123/62 120/59 L 101/59 L Pulse Oximetry 100 99 98 01/07/18 04:00 01/07/18 08:00 01/07/18 12:00 Temperature 98.5 F 98.2 F 97.8 F Pulse Rate 101 H 91 H 94 H Respiratory Rate 15 16 16 Blood Pressure 108/58 L 110/61 117/61 Pulse Oximetry 99 100 100 Intake & Output 01/06/18 01/07/18 01/07/18 18:59 06:59 18:59 Intake Total 2200 / 2200 200 / 200 1100 / 1100 Balance 2200 / 2200 200 / 200 1100 / 1100 Weight 61.2 kg Intake: IV 1000 / 1000 1100 / 1100 Potassium Chlor 20 mEq/NACL 0. 900 / 900 1000 / 1000 45% Inj 1,000 ML @ 50 mls/hr IV .CONT .Q20H COLE Rx#:[id number] INVanz Inj 1,000 MG In NS Inj 100 / 100 100 / 100 100 ML @ 200 mls/hr IV.SIG DAILY COLE Rx#:[id number] Oral 1200 / 1200 200 / 200 Other: # Voids 3 3 Date of Last Bowel Movement 01/04/18 01/06/18 # Bowel Movements 5 5 - Constitutional no acute distress - Routine HEENT Exam Head: Present: normocephalic Eye: Present: EOMI, PERRL ENT: Present: mucous membranes moist - Routine Neck Exam Present: trachea midline. Absent: JVD, tracheal deviation - Routine Respiratory Exam Absent: accessory muscle use, respiratory distress - Routine Cardiovascular Exam Present: RRR - Routine Abdominal Exam Present: soft. Absent: tenderness - Routine Extremities Exam Present: clubbing, normal capillary refill. Absent: edema - Routine Neurological Exam Present: alert, oriented X3 - Urinary Catheter Management Indwelling Temp Sensing Catheter Cath placed during this visit: no <Jocelyn Crews - Last Filed: 01/07/18 14:17> Vital signs: Vital Signs 01/07/18 00:00 01/07/18 04:00 01/07/18 08:00 Temperature 99.1 F 98.5 F 98.2 F Pulse Rate 104 H 101 H 91 H Respiratory Rate 15 15 16 Blood Pressure 101/59 L 108/58 L 110/61 Pulse Oximetry 98 99 100 01/07/18 12:00 01/07/18 16:00 Temperature 97.8 F 98 F Pulse Rate 94 H 95 H Respiratory Rate 16 18 Blood Pressure 117/61 120/72 Pulse Oximetry 100 99 Intake & Output 01/07/18 01/07/18 01/08/18 06:59 18:59 06:59 Intake Total 200 / 200 1100 / 1100 Output Total 800 / 800 Balance 200 / 200 300 / 300 Weight 61.2 kg Intake: IV 1100 / 1100 Potassium Chlor 20 mEq/NACL 0. 1000 / 1000 45% Inj 1,000 ML @ 50 mls/hr IV .CONT .Q20H COLE Rx#:[id number] INVanz Inj 1,000 MG In NS Inj 100 / 100 100 ML @ 200 mls/hr IV.SIG DAILY COLE Rx#:[id number] Oral 200 / 200 Output: Urine 800 / 800 Other: # Voids 3 Date of Last Bowel Movement 01/07/18 # Bowel Movements 5 5 - Urinary Catheter Management Indwelling Temp Sensing Catheter Cath placed during this visit: no <Filipe Robertson - Last Filed: 01/07/18 21:48> Assessment and Plan - Assessment (1) JACLYN (acute kidney injury) Code(s): N17.9 - Acute kidney failure, unspecified Status: Acute Plan: Patient was previously receiving dialysis. Last dialyzed 12/29/17. Dialysis has been discontinued. Patient's renal function continues to improve, Creatinine is 1.56. Nephrology will sign off at this time. (2) Gastric perforation Code(s): K25.5 - Chronic or unspecified gastric ulcer with perforation Status : Resolved Plan: s/p surgery. Subtotal gastrectomy in [place]. In [facility] he had: Dinh-en-y esophagojejunostomy, feeding jejunostomy placement, diagnostic EGD, primary fascial closure. Date of procedure: 11/28/17 Negative bleeding scan - follow with GI, surgery. No immediate surgical plans at this point (3) Candidemia Code(s): B37.7 - Candidal sepsis Status: Acute Plan: Blood culture at [facility] in [place] on 11/26 had Starr glabrata. Repeat blood culture is negative. Infectious disease following. S/p micafungin for candidemia. (4) Anemia Code(s): D64.9 - Anemia, unspecified Status: Acute Plan: HGB is 6.2. Transfuse prn. <Jocelyn Crews - Last Filed: 01/07/18 14:17> - Assessment (1) JACLYN (acute kidney injury) Code(s): N17.9 - Acute kidney failure, unspecified Status: Acute (2) Gastric perforation Code(s): K25.5 - Chronic or unspecified gastric ulcer with perforation Status : Resolved (3) Candidemia Code(s): B37.7 - Candidal sepsis Status: Acute (4) Anemia Code(s): D64.9 - Anemia, unspecified Status: Acute - Attending Attestation patient was seen and examined. Renal function has improved. We discussed possible need for blood transfusion. Avoid NSAIDs and other potential nephrotoxic agents. We will sign off at this time. <Filipe Robertson - Last Filed: 01/07/18 21:48>
--- NOTE | 2018-01-07 15:52 | P.PNGS ---
Subjective Interval history: Resting in bed Walked to the end of the hallway today Aunt at bedside ---very pleased with Pk's progress! Pk smiling; in good spirits today Physical Exam Vital signs: Vital Signs 01/06/18 16:00 01/06/18 20:00 01/07/18 00:00 Temperature 98.0 F 99.1 F 99.1 F Pulse Rate 103 H 107 H 104 H Respiratory Rate 19 17 15 Blood Pressure 123/62 120/59 L 101/59 L Pulse Oximetry 100 99 98 01/07/18 04:00 01/07/18 08:00 01/07/18 12:00 Temperature 98.5 F 98.2 F 97.8 F Pulse Rate 101 H 91 H 94 H Respiratory Rate 15 16 16 Blood Pressure 108/58 L 110/61 117/61 Pulse Oximetry 99 100 100 Intake & Output 01/06/18 01/07/18 01/07/18 18:59 06:59 18:59 Intake Total 2200 / 2200 200 / 200 1100 / 1100 Balance 2200 / 2200 200 / 200 1100 / 1100 Weight 61.2 kg Intake: IV 1000 / 1000 1100 / 1100 Potassium Chlor 20 mEq/NACL 0. 900 / 900 1000 / 1000 45% Inj 1,000 ML @ 50 mls/hr IV .CONT .Q20H COLE Rx#:[id number] INVanz Inj 1,000 MG In NS Inj 100 / 100 100 / 100 100 ML @ 200 mls/hr IV.SIG DAILY COLE Rx#:[id number] Oral 1200 / 1200 200 / 200 Other: # Voids 3 3 Date of Last Bowel Movement 01/04/18 01/06/18 # Bowel Movements 5 5 Narrative: Alert and awake Abd: soft; non tender; midline incision healed with old scabbed areas; prior J tube site healed - Urinary Catheter Management Indwelling Temp Sensing Catheter Cath placed during this visit: no Results - Labs 01/07/18 06:20 01/07/18 06:20 Laboratory Results - last 24 hr 01/07/18 01/07/18 01/07/18 06:20 06:20 10:44 WBC 7.3 RBC 2.04 L Hgb 6.2 L* Hct 18.5 L* MCV 90.7 MCH 30.7 MCHC 33.8 RDW 17.5 H Plt Count 257 MPV 8.8 Neut % (Auto) 62.6 Lymph % (Auto) 16.4 Nicholas % (Auto) 11.3 H Eos % (Auto) 7.1 H Baso % (Auto) 2.6 H Neut # (Auto) 4.6 Lymph # (Auto) 1.2 Nicholas # (Auto) 0.8 Eos # (Auto) 0.5 H Baso # (Auto) 0.2 WBC Differential . Differential Comment Auto diff final Sodium 140 Potassium 4.5 Chloride 116 H Carbon Dioxide 18.0 L Anion Gap 6 BUN 25 H Creatinine 1.56 H Estimated GFR 58 L Random Glucose 75 Calcium 8.2 L Magnesium 1.7 Blood Type A Positive Antibody Screen Positive H MTS Gel Crossmatch See Detail Bld Prod Order Comment - Imaging Imaging: ITS Impressions Head MRI 12/03/17 00:00 CONCLUSION: 1. Minimal nonspecific periventricular white matter changes. 2. No restricted diffusion to suggest an acute ischemic event. 3. No evidence for significant ischemic changes. Chest CT 12/04/17 00:06 CONCLUSION: 1. Left greater than right pleural effusions and basilar atelectasis. 2. No hemorrhage or hematoma demonstrated. 3. Distended and fluid-filled esophagus. No wall thickening. Patient is status post gastrectomy. Nasogastric tube is at the GE junction. 4. Body wall edema/anasarca. Abdomen X-Ray 12/08/17 00:00 CONCLUSION: 1. 2 left-sided abdominal catheters. 2. Nonspecific bowel gas pattern. Abdomen/Pelvis CT 12/13/17 00:00 CONCLUSION: 1. New proximal small bowel dilatation. No discrete transition point. Contrast is seen in the distal small bowel. Findings may represent ileus or partial obstruction. 2. Postsurgical findings with surgical drains in the left upper quadrant. Free fluid is seen in the left upper quadrant. Loculated rounded 5 cm area of fluid with thin peripheral enhancement also noted just inferior to the surgical drains. 3. Prominent left lower lobe pulmonary consolidation and small left pleural effusion. GI Bleed Scan Nuclear Medicine 12/15/17 00:00 CONCLUSION: No active bleeding demonstrated. Chest X-Ray 12/22/17 00:00 CONCLUSION: 1. Persistent patchy infiltrate within the left lung base. 2. Multiple tubes and lines are stable. The nasogastric tube remains with its tip in the distal esophagus. New right subclavian central line has its tip in superior vena cava. No pneumothorax is noted. Small Bowel X-Ray 12/22/17 00:00 CONCLUSION: No evidence of bowel obstruction. There is mild diffuse small bowel wall thickening identified within the jejunum and ileum consistent with possible edema given the appearance on initial imaging. Drain overlying the left lower quadrant. Jejunostomy Tube Placement 12/28/17 00:00 CONCLUSION: 1. Uncomplicated placement of a new 16 Indian jejunostomy catheter through existing tract. Venous Doppler Study 01/05/18 12:27 CONCLUSION: 1. The study is negative for bilateral upper extremity deep venous thrombosis. Assessment and Plan - Assessment (1) Gastric perforation Code(s): K25.5 - Chronic or unspecified gastric ulcer with perforation Status : Resolved Plan: 47yo male s/p Exlap and gastrectomy for gastric perforation, s/p esophagojejunostomy at [facility] -Continue diet---supplement with Ensure/Boost -Vascath removed -Needs to continue aggressive PT ! -Okay to shower -[facility]--- Agree with plan - Plan I personally evaluated the patient in room 1730. His aunt and uncle were at his bedside. He is awake and alert and conversant. He has been tolerating an oral diet. He has had liquid stools. He walked over half-way down the [place] and back on his own without assistance. He is regaining his strength. His hemoglobin is been low he is consenting to receiving a unit of packed red blood cells. Plans are being made to hopefully obtain a betty bed at the [facility]. He is an excellent candidate at this point. We will discontinue the ertapenem if it is okay with infectious disease doctor. I will make sure that the patient is on a probiotic. Patient spoke with a porter bath this morning. The exam, history, and the medical decision-making described in the above note were completed with the assistance of the mid-level provider. I reviewed and agree with the findings presented. I attest that I had a [id number] encounter with the patient on the same day, and personally performed and documented my assessment and findings in the medical record.
[2018-01-08] MEDS: Diphenoxylate/Atropine 2.5/0.025 MG Tablet PO SCH ×3 (00:09→14:36)
[2018-01-08] MEDS: Metoprolol Tartrate 25 MG Tablet PO SCH ×4 (02:51→21:13)
[2018-01-08] MEDS: KCL 20 mEq/NACL 0.45% Inj 1,000 ML IV.CONT SCH (06:33)
[2018-01-08 07:24] LABS: Baso # (Auto) 0.1 th/mm3 (0.0-0.2); Baso % (Auto) 2.3 % (0.0-2.0); Eos # (Auto) 0.5 th/mm3 (0.0-0.4); Eos % (Auto) 7.2 % (0.0-4.0); Lymph # (Auto) 1.3 th/mm3 (1.0-4.8); Lymph % (Auto) 19.6 % (9.0-44.0); Mean Corpuscular HGB Conc 32.8 % (32.0-36.0); Mean Corpuscular Hemoglobin 30.5 pg (27.0-34.0); Mean Platelet Volume 8.5 fL (7.0-11.0); Mono # (Auto) 0.8 th/mm3 (0.0-0.9); Mono % (Auto) 11.9 % (0.0-8.0); Neut # (Auto) 3.8 th/mm3 (1.8-7.7); Platelet Count 278 th/mm3 (150-450); Red Blood Count 2.17 mil/mm3 (4.50-5.90); Red Cell Distribution Width 18.2 % (11.6-17.2); White Blood Count 6.4 th/mm3 (4.0-11.0)
[2018-01-08 07:42] LABS: Hematocrit 20.1 % (39.0-51.0); Hemoglobin 6.6 gm/dL (13.0-17.0)
[2018-01-08 08:04] LABS: Calcium 8.1 mg/dL (8.5-10.1); Carbon Dioxide 17.3 meq/L (21.0-32.0); Magnesium 1.7 mg/dL (1.5-2.5); Potassium 4.3 meq/L (3.5-5.1)
[2018-01-08] MEDS: hydrALAZINE 50 MG Tablet PO SCH ×3 (09:37→17:42)
[2018-01-08] MEDS: Calcium Acetate 667 MG Capsule PO SCH ×3 (09:37→17:42)
[2018-01-08] MEDS: Ferrous Sulfate 325 MG Tablet PO SCH (09:37)
[2018-01-08] MEDS: ERTAPENEM IV.SIG SCH (09:37)
[2018-01-08] MEDS: SODIUM CHLOR 0.9% IV.SIG SCH (09:37)
[2018-01-08] MEDS: Cholestyramine Light 4 GM Packet PO SCH ×2 (09:38→21:13)
--- NOTE | 2018-01-08 10:02 | P.PN ---
Subjective Interval history: Follow-up anemia. Repeat Hemoccult positive 1 out of 3. No gross bleeding. J- tube recently pulled out by patient. Patient has no complaints Physical Exam Vital signs: Vital Signs 01/07/18 12:00 01/07/18 16:00 01/07/18 20:00 Temperature 97.8 F 98 F 98.3 F Pulse Rate 94 H 95 H 102 H Respiratory Rate 16 18 18 Blood Pressure 117/61 120/72 123/76 Pulse Oximetry 100 99 99 01/08/18 00:00 01/08/18 01:07 01/08/18 08:00 Temperature 98.4 F 98.4 F Pulse Rate 91 H 94 H Respiratory Rate 18 17 Blood Pressure 82/47 L 114/63 115/64 Pulse Oximetry 97 100 Intake & Output 01/07/18 01/08/18 01/08/18 18:59 06:59 18:59 Intake Total 1100 / 1100 1120 / 1120 Output Total 800 / 800 1000 / 1000 Balance 300 / 300 120 / 120 Weight 58.4 kg Intake: IV 1100 / 1100 1000 / 1000 Potassium Chlor 20 mEq/NACL 0. 1000 / 1000 1000 / 1000 45% Inj 1,000 ML @ 50 mls/hr IV .CONT .Q20H COLE Rx#:[id number] INVanz Inj 1,000 MG In NS Inj 100 / 100 100 ML @ 200 mls/hr IV.SIG DAILY COLE Rx#:[id number] Oral 120 / 120 Output: Urine 800 / 800 1000 / 1000 Other: Date of Last Bowel Movement 01/07/18 01/08/18 # Bowel Movements 5 Narrative: GENERAL: Alert and oriented. Weak and debilitated. SKIN: Warm and dry. NECK: Supple, trachea midline. No JVD. CARDIOVASCULAR: Tachycardic. Regular rate and rhythm without murmurs, gallops, or rubs. RESPIRATORY: Breath sounds equal bilaterally. No accessory muscle use. GASTROINTESTINAL: Abdomen soft, non-tender, nondistended. MUSCULOSKELETAL: No cyanosis, or edema. BACK: Nontender without obvious deformity. No CVA tenderness. - Urinary Catheter Management Indwelling Temp Sensing Catheter Cath placed during this visit: no Results - Labs CBC & Chem 7: 01/08/18 06:06 01/08/18 06:06 Laboratory Results - last 24 hr 01/07/18 01/08/18 01/08/18 10:44 06:06 06:06 WBC 6.4 RBC 2.17 L Hgb 6.6 L* Hct 20.1 L* MCV 93.0 MCH 30.5 MCHC 32.8 RDW 18.2 H Plt Count 278 MPV 8.5 Prelim Diff (Auto) Local [employer] Neut % (Auto) 59.0 Lymph % (Auto) 19.6 Dawes % (Auto) 11.9 H Eos % (Auto) 7.2 H Baso % (Auto) 2.3 H Neut # (Auto) 3.8 Lymph # (Auto) 1.3 Dawes # (Auto) 0.8 Eos # (Auto) 0.5 H Baso # (Auto) 0.1 WBC Differential . Differential Comment Auto diff final Sodium 142 Potassium 4.3 Chloride 118 H Carbon Dioxide 17.3 L Anion Gap 7 BUN 19 H Creatinine 1.46 H Estimated GFR 63 L Random Glucose 75 Calcium 8.1 L Magnesium 1.7 Blood Type A Positive Antibody Screen Positive H MTS Gel Crossmatch See Detail Bld Prod Order Comment Microbiology 01/07/18 13:45 Stool Stool Occult Blood (DEB) - Final Hemoccult positive - Imaging ITS Impressions Head MRI 12/03/17 00:00 CONCLUSION: 1. Minimal nonspecific periventricular white matter changes. 2. No restricted diffusion to suggest an acute ischemic event. 3. No evidence for significant ischemic changes. Chest CT 12/04/17 00:06 CONCLUSION: 1. Left greater than right pleural effusions and basilar atelectasis. 2. No hemorrhage or hematoma demonstrated. 3. Distended and fluid-filled esophagus. No wall thickening. Patient is status post gastrectomy. Nasogastric tube is at the GE junction. 4. Body wall edema/anasarca. Abdomen X-Ray 12/08/17 00:00 CONCLUSION: 1. 2 left-sided abdominal catheters. 2. Nonspecific bowel gas pattern. Abdomen/Pelvis CT 12/13/17 00:00 CONCLUSION: 1. New proximal small bowel dilatation. No discrete transition point. Contrast is seen in the distal small bowel. Findings may represent ileus or partial obstruction. 2. Postsurgical findings with surgical drains in the left upper quadrant. Free fluid is seen in the left upper quadrant. Loculated rounded 5 cm area of fluid with thin peripheral enhancement also noted just inferior to the surgical drains. 3. Prominent left lower lobe pulmonary consolidation and small left pleural effusion. GI Bleed Scan Nuclear Medicine 12/15/17 00:00 CONCLUSION: No active bleeding demonstrated. Chest X-Ray 12/22/17 00:00 CONCLUSION: 1. Persistent patchy infiltrate within the left lung base. 2. Multiple tubes and lines are stable. The nasogastric tube remains with its tip in the distal esophagus. New right subclavian central line has its tip in superior vena cava. No pneumothorax is noted. Small Bowel X-Ray 12/22/17 00:00 CONCLUSION: No evidence of bowel obstruction. There is mild diffuse small bowel wall thickening identified within the jejunum and ileum consistent with possible edema given the appearance on initial imaging. Drain overlying the left lower quadrant. Jejunostomy Tube Placement 12/28/17 00:00 CONCLUSION: 1. Uncomplicated placement of a new 16 German jejunostomy catheter through existing tract. Venous Doppler Study 01/05/18 12:27 CONCLUSION: 1. The study is negative for bilateral upper extremity deep venous thrombosis. - Procedures Jejunostomy tube placement Assessment and Plan - Assessment (1) JACLYN (acute kidney injury) Code(s): N17.9 - Acute kidney failure, unspecified Status: Acute (2) Acute respiratory failure Code(s): J96.00 - Acute respiratory failure, unspecified whether with hypoxia or hypercapnia Status: Acute (3) Gastric perforation Code(s): K25.5 - Chronic or unspecified gastric ulcer with perforation Status : Resolved (4) Candidemia Code(s): B37.7 - Candidal sepsis Status: Acute (5) DVT (deep venous thrombosis) Code(s): I82.409 - Acute embolism and thrombosis of unspecified deep veins of unspecified lower extremity Status: Acute (6) Anemia Code(s): D64.9 - Anemia, unspecified Status: Acute - Plan ACUTE METABOLIC ENCEPHALOPATHY w ACUTE DELIRIUM due to critical illness: Resolving, cont oob w pt, cont st, ot, now can participate ACUTE RESPIRATORY FAILURE /TENSION PNEUMOTHORAX left pigtail chest tube removed 12/18 Extubated 12/22 continue Bronchodilator, Mucolytic and Incentive spirometry. now stable on RA CARDIAC ARREST 11/23/17 PEA arrest due to shock secondary to acute gastric perforation and tension pneumoperitoneum -Currently hemodynamically stable. 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 - cont wound care, diet as tolerated, tube feeds on hold patient pulled J tube. Dietitian recommends to liberalize diet to regular mechanical soft with Ensure and live 3 times a day, Ensure pudding 3 times a day and Avelino twice a day and repeat calorie count January 11 January 13 ISCHEMIC HEPATOPATHY resolving GIB with ANEMIA OF ACUTE BLOOD LOSS EGD, enteroscopy 12/12/2017 unremarkable, colonoscopy 12/13/2017 unremarkable. Bleeding scan did not show any particular site of bleeding Had right upper quadrant ultrasound on 11/27/17 that demonstrated contracted gallbladder with sludge. No evidence of cholecystitis. Echogenicity in right liver related to focal fatty change or altered perfusion, patent vascularity. Protonix per GI. Appreciate general surgery following. Continue mechanical soft, thickened liquid diet. Repeat Hemoccult positive 1 out of 3. No gross bleeding. J-tube recently pulled out by patient Symptomatic ANEMIA requiring transfusion/THROMBOCYTOPENIA resolved. Iron deficient no active bleeding but will transfuse packed RBC patient is tachycardic, patient is finally consenting to transfusion. Per renal , no indication for Epogen with improving renal function ACUTE RENAL FAILURE secondary to ISCHEMIC ATN requiring dialysis HD started 11/26 Nephrology following. Hold hemodialysis per nephrology since patient's renal function continues to improve. Nephrology has signed off KLEBSIELLA ESBL ABD WOUND INFECTION -discontinue Invanz CANDIDEMIA following gastric perforation and gastric ischemia. Blood culture at [facility] in [place] on 11/26 had Starr glabrata. Repeat blood culture is negative. Infectious disease following. S/p micafungin for candidemia. BILATERAL UE DVT U/s 11/26 BUE - thrombus R axillary, brachial and basilic veins and thrombus in left axillary and left brachial veins. Hematology consult was obtained at [facility] and patient was treated with heparin. Continue subcu heparin here(On hold secondary to GIB and symptomatic anemia) Repeat US resolved DVT can safely start PIV PRESSURE ULCER OF SACRUM/COCCYX and BUTTOCKS Wound care nursing following. Continue with dressing change and frequent turning. MUSCLE WEAKNESS AND MYOPATHY OF CRITICAL ILLNESS - extremely weak, cont PT,will require placement SEVERE PROTEIN CALORIE MALNUTRITION w bmi 14.5, alb 1.7, w mild dysphagia and s/ p partial gastrectomy, cont thickened diet as tolerated, has poor appetite, supplemental Jejunostomy TF till bmi improves may change to nightly feeds supplementation and oral during daytime if his po intake improves, fu w nutrition and st recommendations. Improving weight BMI up to 16.7. Tube feeding on hold patient pulled PEG. Dietitian recommends to liberalize diet to regular mechanical soft with Ensure and live 3 times a day, Ensure pudding 3 times a day and Avelino twice a day and repeat calorie count January 11 January 13 HTN - hydralazine and metoprolol HYPOKALEMIA - replace w caution, fu w nephrology. Repeat BMP shows improving hypokalemia on scheduled potassium LEUKOCYTOSIS - no fever, DYSPHAGIA - asp risk, cont thickened liq per ST,resume oral diet as tolerated DIARRHEA- neg for cdif, immodium not helping, prob due to tube feeding(already dc) or Invanz(dc today), added florastor, questran. [id number] Lomotil for 2 days DISPO - will need placement insurance pending Discharge Planning: Gaurav ff (2) Acute respiratory failure Qualifiers: Respiratory failure complication: hypoxia Qualified Code(s): J96.01 - Acute respiratory failure with hypoxia
[2018-01-08] MEDS: Collagenase Oint 30 GM Tube TOPICAL SCH (14:38)
[2018-01-09] MEDS: KCL 20 mEq/NACL 0.45% Inj 1,000 ML IV.CONT SCH (01:10)
[2018-01-09] MEDS: Metoprolol Tartrate 25 MG Tablet PO SCH ×4 (02:35→20:42)
[2018-01-09 07:13] LABS: Baso # (Auto) 0.1 th/mm3 (0.0-0.2); Eos # (Auto) 0.4 th/mm3 (0.0-0.4); Eos % (Auto) 5.3 % (0.0-4.0); Hematocrit 26.9 % (39.0-51.0); Hemoglobin 9.2 gm/dL (13.0-17.0); Lymph # (Auto) 1.1 th/mm3 (1.0-4.8); Lymph % (Auto) 15.4 % (9.0-44.0); Mean Corpuscular HGB Conc 34.4 % (32.0-36.0); Mean Corpuscular Hemoglobin 30.9 pg (27.0-34.0); Mean Platelet Volume 8.5 fL (7.0-11.0); Mono # (Auto) 0.8 th/mm3 (0.0-0.9); Mono % (Auto) 10.3 % (0.0-8.0); Neut # (Auto) 4.9 th/mm3 (1.8-7.7); Platelet Count 291 th/mm3 (150-450); Red Blood Count 2.98 mil/mm3 (4.50-5.90); Red Cell Distribution Width 17.7 % (11.6-17.2); White Blood Count 7.3 th/mm3 (4.0-11.0)
[2018-01-09 07:22] LABS: Carbon Dioxide 16.9 meq/L (21.0-32.0); Magnesium 1.7 mg/dL (1.5-2.5); Potassium 4.4 meq/L (3.5-5.1)
[2018-01-09] MEDS: Cholestyramine Light 4 GM Packet PO SCH ×2 (09:28→20:40)
[2018-01-09] MEDS: Ferrous Sulfate 325 MG Tablet PO SCH (09:29)
[2018-01-09] MEDS: hydrALAZINE 50 MG Tablet PO SCH ×3 (09:37→17:31)
--- NOTE | 2018-01-09 11:33 | P.PNIM ---
Subjective Interval history: in no acute distress. pain is controlled. no new complaints. Physical Exam Vital signs: Vital Signs 01/08/18 12:00 01/08/18 16:00 01/08/18 17:48 Temperature 97.5 F L 97.1 F L 97.7 F Pulse Rate 91 H 124 H 124 H Respiratory Rate 17 17 18 Blood Pressure 101/55 L 109/54 L 122/60 Pulse Oximetry 100 100 100 01/08/18 20:00 01/08/18 21:10 01/08/18 21:51 Temperature 98 F 97.6 F 98.2 F Pulse Rate 96 H 96 H 96 H Respiratory Rate 17 20 20 Blood Pressure 97/59 L 117/71 116/72 Pulse Oximetry 100 99 100 01/08/18 22:11 01/09/18 00:00 01/09/18 01:08 Temperature 97.6 F 98.5 F 98.2 F Pulse Rate 94 H 94 H 95 H Respiratory Rate 20 16 20 Blood Pressure 112/69 113/67 109/61 Pulse Oximetry 99 98 99 01/09/18 04:00 01/09/18 08:00 Temperature 97.9 F 98.1 F Pulse Rate 95 H 91 H Respiratory Rate 16 18 Blood Pressure 108/57 L 104/54 L Pulse Oximetry 97 99 Intake & Output 01/08/18 01/09/18 01/09/18 18:59 06:59 18:59 Intake Total 950 / 950 2280 / 2280 414 / 414 Balance 950 / 950 2280 / 2280 414 / 414 Weight 52.8 kg Intake: IV 100 / 100 1000 / 1000 414 / 414 Potassium Chlor 20 mEq/NACL 0. 1000 / 1000 414 / 414 45% Inj 1,000 ML @ 50 mls/hr IV .CONT .Q20H COLE Rx#:[id number] INVanz Inj 1,000 MG In NS Inj 100 / 100 100 ML @ 200 mls/hr IV.SIG DAILY COLE Rx#:[id number] Oral 850 / 850 480 / 480 Intake (Blood Product) Amt 0 / 0 800 / 800 Rbc As-3 Leukoreduced Unit 0 / 0 400 / 400 [id number] Rbc As-3 Leukoreduced Unit 400 / 400 [id number] Other: # Voids 4 1 Date of Last Bowel Movement 12/04/18 12/04/18 # Bowel Movements 4 1 - Constitutional no acute distress, thin - Routine Respiratory Exam Present: CTA bilaterally - Routine Cardiovascular Exam Present: RRR - Routine Abdominal Exam Present: soft - Routine Extremities Exam Comments: no pedal edema. - Routine Neurological Exam Present: alert, oriented X3 - Urinary Catheter Management Indwelling Temp Sensing Catheter Cath placed during this visit: no Results - Labs CBC & Chem 7: 01/09/18 06:04 01/09/18 06:04 Laboratory Results - last 24 hr 12/04/17 12/16/17 12/20/17 10:46 05:40 10:27 WBC RBC Hgb Hct MCV MCH MCHC RDW Plt Count MPV Neut % (Auto) Lymph % (Auto) [place] % (Auto) Eos % (Auto) Baso % (Auto) Neut # (Auto) Lymph # (Auto) [place] # (Auto) Eos # (Auto) Baso # (Auto) WBC Differential Differential Comment Sodium Potassium Chloride Carbon Dioxide Anion Gap BUN Creatinine Estimated GFR Random Glucose Calcium Magnesium Blood Type Antibody Screen MTS Gel Crossmatch See Detail See Detail See Detail Bld Prod Order Comment 01/07/18 01/09/18 01/09/18 10:44 06:04 06:04 WBC 7.3 RBC 2.98 L Hgb 9.2 L D Hct 26.9 L MCV 90.0 MCH 30.9 MCHC 34.4 RDW 17.7 H Plt Count 291 MPV 8.5 Neut % (Auto) 67.0 Lymph % (Auto) 15.4 [place] % (Auto) 10.3 H Eos % (Auto) 5.3 H Baso % (Auto) 2.0 Neut # (Auto) 4.9 Lymph # (Auto) 1.1 [place] # (Auto) 0.8 Eos # (Auto) 0.4 Baso # (Auto) 0.1 WBC Differential . Differential Comment Auto diff final Sodium 145 Potassium 4.4 Chloride 119 H Carbon Dioxide 16.9 L Anion Gap 9 BUN 16 Creatinine 1.50 H Estimated GFR 61 L Random Glucose 80 Calcium 8.0 L Magnesium 1.7 Blood Type A Positive Antibody Screen Positive H MTS Gel Crossmatch See Detail Bld Prod Order Comment - Procedures Jejunostomy tube placement Assessment and Plan - Assessment (1) JACLYN (acute kidney injury) Code(s): N17.9 - Acute kidney failure, unspecified Status: Acute (2) Acute respiratory failure Code(s): J96.00 - Acute respiratory failure, unspecified whether with hypoxia or hypercapnia Status: Acute (3) Gastric perforation Code(s): K25.5 - Chronic or unspecified gastric ulcer with perforation Status : Resolved (4) Candidemia Code(s): B37.7 - Candidal sepsis Status: Acute (5) DVT (deep venous thrombosis) Code(s): I82.409 - Acute embolism and thrombosis of unspecified deep veins of unspecified lower extremity Status: Acute (6) Anemia Code(s): D64.9 - Anemia, unspecified Status: Acute - Plan ACUTE METABOLIC ENCEPHALOPATHY w ACUTE DELIRIUM due to critical illness: Resolving, cont oob w pt, cont st, ot, now can participate ACUTE RESPIRATORY FAILURE /TENSION PNEUMOTHORAX left pigtail chest tube removed 12/18 Extubated 12/22 continue Bronchodilator, Mucolytic and Incentive spirometry. now stable on RA CARDIAC ARREST 11/23/17 PEA arrest due to shock secondary to acute gastric perforation and tension pneumoperitoneum -Currently hemodynamically stable. 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 - cont wound care, diet as tolerated, tube feeds on hold patient pulled J tube. Dietitian recommends to liberalize diet to regular mechanical soft with Ensure and live 3 times a day, Ensure pudding 3 times a day and Avelino twice a day and repeat calorie count January 11 January 13 ISCHEMIC HEPATOPATHY resolving GIB with ANEMIA OF ACUTE BLOOD LOSS EGD, enteroscopy 12/12/2017 unremarkable, colonoscopy 12/13/2017 unremarkable. Bleeding scan did not show any particular site of bleeding Had right upper quadrant ultrasound on 11/27/17 that demonstrated contracted gallbladder with sludge. No evidence of cholecystitis. Echogenicity in right liver related to focal fatty change or altered perfusion, patent vascularity. Protonix per GI. Appreciate general surgery following. Continue mechanical soft, thickened liquid diet. Repeat Hemoccult positive 1 out of 3. No gross bleeding. J-tube recently pulled out by patient Symptomatic ANEMIA requiring transfusion/THROMBOCYTOPENIA resolved. Iron deficient no active bleeding but transfused with packed RBC patient is tachycardic, patient is finally consenting to transfusion. Per renal , no indication for Epogen with improving renal function ACUTE RENAL FAILURE secondary to ISCHEMIC ATN requiring dialysis HD started 11/26 Nephrology following. Hold hemodialysis per nephrology since patient's renal function continues to improve. Nephrology has signed off KLEBSIELLA ESBL ABD WOUND INFECTION -discontinue Invanz CANDIDEMIA following gastric perforation and gastric ischemia. Blood culture at [facility] in [place] on 11/26 had Starr glabrata. Repeat blood culture is negative. Infectious disease following. S/p micafungin for candidemia. BILATERAL UE DVT U/s 11/26 BUE - thrombus R axillary, brachial and basilic veins and thrombus in left axillary and left brachial veins. Hematology consult was obtained at [facility] and patient was treated with heparin. Continue subcu heparin here(On hold secondary to GIB and symptomatic anemia) Repeat US resolved DVT can safely start PIV PRESSURE ULCER OF SACRUM/COCCYX and BUTTOCKS Wound care nursing following. Continue with dressing change and frequent turning. MUSCLE WEAKNESS AND MYOPATHY OF CRITICAL ILLNESS - extremely weak, cont PT,will require placement SEVERE PROTEIN CALORIE MALNUTRITION w bmi 14.5, alb 1.7, w mild dysphagia and s/ p partial gastrectomy, cont thickened diet as tolerated, has poor appetite, supplemental Jejunostomy TF till bmi improves may change to nightly feeds supplementation and oral during daytime if his po intake improves, fu w nutrition and st recommendations. Improving weight BMI up to 16.7. Tube feeding on hold patient pulled PEG. Dietitian recommends to liberalize diet to regular mechanical soft with Ensure and live 3 times a day, Ensure pudding 3 times a day and Avelino twice a day and repeat calorie count January 11 January 13 HTN - hydralazine and metoprolol HYPOKALEMIA - replace w caution, fu w nephrology. Repeat BMP shows improving hypokalemia on scheduled potassium LEUKOCYTOSIS - no fever, DYSPHAGIA - asp risk, cont thickened liq per ST,resume oral diet as tolerated DIARRHEA- neg for cdif, immodium not helping, prob due to tube feeding(already dc) , added florastor, questran. [id number] Lomotil for 2 days DISPO - will need placement insurance pending Discharge Planning: [facility]. (2) Acute respiratory failure Qualifiers: Respiratory failure complication: hypoxia Qualified Code(s): J96.01 - Acute respiratory failure with hypoxia
--- NOTE | 2018-01-09 12:35 | P.PNID ---
Subjective Remarks: Patient is awake and alert. Feels okay. Eating better. No fever. Completed Ertapenem. Past Medical History: Reviewed Allergies/Adverse Reactions: Allergies No Known Allergies Allergy (Verified 11/22/17 02:38) Objective Vital Signs 01/08/18 16:00 01/08/18 17:48 01/08/18 20:00 Temperature 97.1 F L 97.7 F 98 F Pulse Rate 124 H 124 H 96 H Respiratory Rate 17 18 17 Blood Pressure 109/54 L 122/60 97/59 L Pulse Oximetry 100 100 100 01/08/18 21:10 01/08/18 21:51 01/08/18 22:11 Temperature 97.6 F 98.2 F 97.6 F Pulse Rate 96 H 96 H 94 H Respiratory Rate 20 20 20 Blood Pressure 117/71 116/72 112/69 Pulse Oximetry 99 100 99 01/09/18 00:00 01/09/18 01:08 01/09/18 04:00 Temperature 98.5 F 98.2 F 97.9 F Pulse Rate 94 H 95 H 95 H Respiratory Rate 16 20 16 Blood Pressure 113/67 109/61 108/57 L Pulse Oximetry 98 99 97 01/09/18 08:00 01/09/18 12:00 Temperature 98.1 F 97.2 F L Pulse Rate 91 H 94 H Respiratory Rate 18 18 Blood Pressure 104/54 L 113/68 Pulse Oximetry 99 94 L Intake & Output 01/08/18 01/09/18 01/09/18 18:59 06:59 18:59 Intake Total 950 / 950 2280 / 2280 414 / 414 Balance 950 / 950 2280 / 2280 414 / 414 Weight 52.8 kg Intake: IV 100 / 100 1000 / 1000 414 / 414 Potassium Chlor 20 mEq/NACL 0. 1000 / 1000 414 / 414 45% Inj 1,000 ML @ 50 mls/hr IV .CONT .Q20H COLE Rx#:[id number] INVanz Inj 1,000 MG In NS Inj 100 / 100 100 ML @ 200 mls/hr IV.SIG DAILY COLE Rx#:[id number] Oral 850 / 850 480 / 480 Intake (Blood Product) Amt 0 / 0 800 / 800 Rbc As-3 Leukoreduced Unit 0 / 0 400 / 400 [id number] Rbc As-3 Leukoreduced Unit 400 / 400 [id number] Other: # Voids 4 1 Date of Last Bowel Movement 01/08/18 01/08/18 # Bowel Movements 4 1 01/07/18 13:45 Stool Stool Occult Blood (DEB) - Final Hemoccult positive 01/06/18 13:36 Stool Stool Occult Blood (DEB) - Final Hemoccult negative Lab - Hematology Results 01/08/18 01/09/18 06:06 06:04 WBC 6.4 7.3 RBC 2.17 L 2.98 L Hgb 6.6 L* 9.2 L D Hct 20.1 L* 26.9 L MCV 93.0 90.0 MCH 30.5 30.9 MCHC 32.8 34.4 RDW 18.2 H 17.7 H Plt Count 278 291 MPV 8.5 8.5 Prelim Diff (Auto) [employer] Neut % (Auto) 59.0 67.0 Lymph % (Auto) 19.6 15.4 [place] % (Auto) 11.9 H 10.3 H Eos % (Auto) 7.2 H 5.3 H Baso % (Auto) 2.3 H 2.0 Neut # (Auto) 3.8 4.9 Lymph # (Auto) 1.3 1.1 [place] # (Auto) 0.8 0.8 Eos # (Auto) 0.5 H 0.4 Baso # (Auto) 0.1 0.1 WBC Differential . . Differential Comment Auto diff final Auto diff final Lab - Chemistry Results 01/08/18 01/09/18 06:06 06:04 Sodium 142 145 Potassium 4.3 4.4 Chloride 118 H 119 H Carbon Dioxide 17.3 L 16.9 L Anion Gap 7 9 BUN 19 H 16 Creatinine 1.46 H 1.50 H Estimated GFR 63 L 61 L Random Glucose 75 80 Calcium 8.1 L 8.0 L Magnesium 1.7 1.7 Imaging: ITS Impressions Head MRI 12/03/17 00:00 CONCLUSION: 1. Minimal nonspecific periventricular white matter changes. 2. No restricted diffusion to suggest an acute ischemic event. 3. No evidence for significant ischemic changes. Chest CT 12/04/17 00:06 CONCLUSION: 1. Left greater than right pleural effusions and basilar atelectasis. 2. No hemorrhage or hematoma demonstrated. 3. Distended and fluid-filled esophagus. No wall thickening. Patient is status post gastrectomy. Nasogastric tube is at the GE junction. 4. Body wall edema/anasarca. Abdomen X-Ray 12/08/17 00:00 CONCLUSION: 1. 2 left-sided abdominal catheters. 2. Nonspecific bowel gas pattern. Abdomen/Pelvis CT 12/13/17 00:00 CONCLUSION: 1. New proximal small bowel dilatation. No discrete transition point. Contrast is seen in the distal small bowel. Findings may represent ileus or partial obstruction. 2. Postsurgical findings with surgical drains in the left upper quadrant. Free fluid is seen in the left upper quadrant. Loculated rounded 5 cm area of fluid with thin peripheral enhancement also noted just inferior to the surgical drains. 3. Prominent left lower lobe pulmonary consolidation and small left pleural effusion. GI Bleed Scan Nuclear Medicine 12/15/17 00:00 CONCLUSION: No active bleeding demonstrated. Chest X-Ray 12/22/17 00:00 CONCLUSION: 1. Persistent patchy infiltrate within the left lung base. 2. Multiple tubes and lines are stable. The nasogastric tube remains with its tip in the distal esophagus. New right subclavian central line has its tip in superior vena cava. No pneumothorax is noted. Small Bowel X-Ray 12/22/17 00:00 CONCLUSION: No evidence of bowel obstruction. There is mild diffuse small bowel wall thickening identified within the jejunum and ileum consistent with possible edema given the appearance on initial imaging. Drain overlying the left lower quadrant. Jejunostomy Tube Placement 12/28/17 00:00 CONCLUSION: 1. Uncomplicated placement of a new 16 Kyrgyz jejunostomy catheter through existing tract. Venous Doppler Study 01/05/18 12:27 CONCLUSION: 1. The study is negative for bilateral upper extremity deep venous thrombosis. Physical Exam: GENERAL: Awake and alert. HEENT: EOMI, ASHK[place]. Mucosa is moist. NECK: Supple. LUNGS: Decreased clear breath sounds. HEART: Tachycardic nl S1, S2. No murmur. ABDOMEN: Decreased bowel sounds. Abdominal incision intact. Non tender. EXTREMITIES: No clubbing or cyanosis. No edema. SKIN: No diffuse rash. NEUROLOGIC: Nonfocal. PSYCHIATRIC: calm Assessment and Plan - Plan IMPRESSION: Candidemia following gastric perforation and gastric ischemia. Blood culture at [facility] in [place] on 11/26 had Starr glabrata. Repeat blood culture negative. treated. Status post abdominal surgery. ? abdominal wall infection at jejunal feeding tube site. Klebsiella ESBL. Leukocytosis, WBC improved. Fevers better Acute respiratory failure. Extubated. Possible Aspiration. Acute kidney disease. improved. Recent cardiac arrest. Abx associated diarrhea, bowel wall thickening c.diff neg. Clinically appears stable. RECOMMENDATIONS: No longer needs antibiotics. I will sign off now.
[2018-01-09] MEDS: Collagenase Oint 30 GM Tube TOPICAL SCH (13:50)
--- NOTE | 2018-01-09 14:28 | P.PNGS ---
Subjective Patient reports: feels better (Patient up in chair eating a sandwich and Telugu fries and drinking Sprite.) Physical Exam Vital signs: Vital Signs 01/08/18 16:00 01/08/18 17:48 01/08/18 20:00 Temperature 97.1 F L 97.7 F 98 F Pulse Rate 124 H 124 H 96 H Respiratory Rate 17 18 17 Blood Pressure 109/54 L 122/60 97/59 L Pulse Oximetry 100 100 100 01/08/18 21:10 01/08/18 21:51 01/08/18 22:11 Temperature 97.6 F 98.2 F 97.6 F Pulse Rate 96 H 96 H 94 H Respiratory Rate 20 20 20 Blood Pressure 117/71 116/72 112/69 Pulse Oximetry 99 100 99 01/09/18 00:00 01/09/18 01:08 01/09/18 04:00 Temperature 98.5 F 98.2 F 97.9 F Pulse Rate 94 H 95 H 95 H Respiratory Rate 16 20 16 Blood Pressure 113/67 109/61 108/57 L Pulse Oximetry 98 99 97 01/09/18 08:00 01/09/18 12:00 Temperature 98.1 F 97.2 F L Pulse Rate 91 H 94 H Respiratory Rate 18 18 Blood Pressure 104/54 L 113/68 Pulse Oximetry 99 94 L Intake & Output 01/08/18 01/09/18 01/09/18 18:59 06:59 18:59 Intake Total 950 / 950 2280 / 2280 414 / 414 Balance 950 / 950 2280 / 2280 414 / 414 Weight 52.8 kg Intake: IV 100 / 100 1000 / 1000 414 / 414 Potassium Chlor 20 mEq/NACL 0. 1000 / 1000 414 / 414 45% Inj 1,000 ML @ 50 mls/hr IV .CONT .Q20H COLE Rx#:[id number] INVanz Inj 1,000 MG In NS Inj 100 / 100 100 ML @ 200 mls/hr IV.SIG DAILY COLE Rx#:[id number] Oral 850 / 850 480 / 480 Intake (Blood Product) Amt 0 / 0 800 / 800 Rbc As-3 Leukoreduced Unit 0 / 0 400 / 400 [id number] Rbc As-3 Leukoreduced Unit 400 / 400 [id number] Other: # Voids 4 1 Date of Last Bowel Movement 1201/08/18 01/09/18 # Bowel Movements 4 1 Narrative: Is a little tremorous but able to coordinate his hands to eat and drink. - Urinary Catheter Management Indwelling Temp Sensing Catheter Cath placed during this visit: no Results - Labs 01/09/18 06:04 01/09/18 06:04 Laboratory Results - last 24 hr 12/04/17 12/16/17 12/20/17 10:46 05:40 10:27 WBC RBC Hgb Hct MCV MCH MCHC RDW Plt Count MPV Neut % (Auto) Lymph % (Auto) [place] % (Auto) Eos % (Auto) Baso % (Auto) Neut # (Auto) Lymph # (Auto) [place] # (Auto) Eos # (Auto) Baso # (Auto) WBC Differential Differential Comment Sodium Potassium Chloride Carbon Dioxide Anion Gap BUN Creatinine Estimated GFR Random Glucose Calcium Magnesium Blood Type Antibody Screen MTS Gel Crossmatch See Detail See Detail See Detail Bld Prod Order Comment 01/07/18 01/09/18 01/09/18 10:44 06:04 06:04 WBC 7.3 RBC 2.98 L Hgb 9.2 L D Hct 26.9 L MCV 90.0 MCH 30.9 MCHC 34.4 RDW 17.7 H Plt Count 291 MPV 8.5 Neut % (Auto) 67.0 Lymph % (Auto) 15.4 [place] % (Auto) 10.3 H Eos % (Auto) 5.3 H Baso % (Auto) 2.0 Neut # (Auto) 4.9 Lymph # (Auto) 1.1 [place] # (Auto) 0.8 Eos # (Auto) 0.4 Baso # (Auto) 0.1 WBC Differential . Differential Comment Auto diff final Sodium 145 Potassium 4.4 Chloride 119 H Carbon Dioxide 16.9 L Anion Gap 9 BUN 16 Creatinine 1.50 H Estimated GFR 61 L Random Glucose 80 Calcium 8.0 L Magnesium 1.7 Blood Type A Positive Antibody Screen Positive H MTS Gel Crossmatch See Detail Bld Prod Order Comment - Imaging Imaging: ITS Impressions Head MRI 12/03/17 00:00 CONCLUSION: 1. Minimal nonspecific periventricular white matter changes. 2. No restricted diffusion to suggest an acute ischemic event. 3. No evidence for significant ischemic changes. Chest CT 12/04/17 00:06 CONCLUSION: 1. Left greater than right pleural effusions and basilar atelectasis. 2. No hemorrhage or hematoma demonstrated. 3. Distended and fluid-filled esophagus. No wall thickening. Patient is status post gastrectomy. Nasogastric tube is at the GE junction. 4. Body wall edema/anasarca. Abdomen X-Ray 12/08/17 00:00 CONCLUSION: 1. 2 left-sided abdominal catheters. 2. Nonspecific bowel gas pattern. Abdomen/Pelvis CT 12/13/17 00:00 CONCLUSION: 1. New proximal small bowel dilatation. No discrete transition point. Contrast is seen in the distal small bowel. Findings may represent ileus or partial obstruction. 2. Postsurgical findings with surgical drains in the left upper quadrant. Free fluid is seen in the left upper quadrant. Loculated rounded 5 cm area of fluid with thin peripheral enhancement also noted just inferior to the surgical drains. 3. Prominent left lower lobe pulmonary consolidation and small left pleural effusion. GI Bleed Scan Nuclear Medicine 12/15/17 00:00 CONCLUSION: No active bleeding demonstrated. Chest X-Ray 12/22/17 00:00 CONCLUSION: 1. Persistent patchy infiltrate within the left lung base. 2. Multiple tubes and lines are stable. The nasogastric tube remains with its tip in the distal esophagus. New right subclavian central line has its tip in superior vena cava. No pneumothorax is noted. Small Bowel X-Ray 12/22/17 00:00 CONCLUSION: No evidence of bowel obstruction. There is mild diffuse small bowel wall thickening identified within the jejunum and ileum consistent with possible edema given the appearance on initial imaging. Drain overlying the left lower quadrant. Jejunostomy Tube Placement 12/28/17 00:00 CONCLUSION: 1. Uncomplicated placement of a new 16 Telugu jejunostomy catheter through existing tract. Venous Doppler Study 01/05/18 12:27 CONCLUSION: 1. The study is negative for bilateral upper extremity deep venous thrombosis. Assessment and Plan - Assessment (1) Gastric perforation Code(s): K25.5 - Chronic or unspecified gastric ulcer with perforation Status : Resolved Plan: 47yo male s/p Exlap and gastrectomy for gastric perforation, s/p es[facility]junostomy at [facility] -Continue diet---supplement with Ensure/Boost -Vascath removed -Needs to continue aggressive PT ! -Okay to shower -Referral sent to [facility]--- Agree with plan - Plan I personally evaluated the patient in room 1730. His aunt and uncle were at his bedside. He is awake and alert and conversant. He has been tolerating an oral diet. He has had liquid stools. He walked over [facility] down the [place] and back on his own without assistance. He is regaining his strength. His hemoglobin is been low he is consenting to receiving a unit of packed red blood cells. Plans are being made to hopefully obtain a betty bed at the [facility]. He is an excellent candidate at this point. We will discontinue the ertapenem if it is okay with infectious disease doctor. I will make sure that the patient is on a probiotic. Patient spoke with a medical registrar this morning. The exam, history, and the medical decision-making described in the above note were completed with the assistance of the mid-level provider. I reviewed and agree with the findings presented. I attest that I had a [id number] encounter with the patient on the same day, and personally performed and documented my assessment and findings in the medical record. 01/09/2018 I personally evaluated the patient in room 1730. His aunt and uncle were in the couch underneath the [place] in [place]. Patient continues to gradually improve and recover from multisystem organ failure following subtotal gastrectomy for gastric necrosis. He is undergone gastrojejunostomy. His feeding tube is been removed. He is off of antibiotics. His kidney function is returning and he has been off of dialysis. Awaiting approval for rehabilitation inpatient position. I will discontinue Protonix as the patient has no stomach.
[2018-01-10] MEDS: Metoprolol Tartrate 25 MG Tablet PO SCH ×4 (02:28→21:12)
[2018-01-10] MEDS: Ferrous Sulfate 325 MG Tablet PO SCH (08:36)
[2018-01-10] MEDS: hydrALAZINE 50 MG Tablet PO SCH ×3 (08:37→17:04)
[2018-01-10] MEDS: Cholestyramine Light 4 GM Packet PO SCH ×2 (08:38→21:20)
--- NOTE | 2018-01-10 11:20 | P.PNIM ---
Subjective Interval history: in no distress. no new complaints. walking in the room with walker. Physical Exam Vital signs: Vital Signs 01/09/18 12:00 01/09/18 16:00 01/09/18 20:00 Temperature 97.2 F L 97.5 F L 97.7 F Pulse Rate 94 H 105 H 99 H Respiratory Rate 18 18 18 Blood Pressure 113/68 126/65 118/70 Pulse Oximetry 94 L 100 99 01/10/18 00:00 01/10/18 08:00 Temperature 98.3 F 97.8 F Pulse Rate 94 H 101 H Respiratory Rate 18 18 Blood Pressure 120/69 113/59 L Pulse Oximetry 99 99 Intake & Output 01/09/18 01/10/18 01/10/18 18:59 06:59 18:59 Intake Total 1614 / 1614 120 / 120 Output Total 800 / 800 Balance 814 / 814 120 / 120 Weight 59.1 kg Intake: IV 414 / 414 Potassium Chlor 20 mEq/NACL 0. 414 / 414 45% Inj 1,000 ML @ 50 mls/hr IV .CONT .Q20H COLE Rx#:[id number] Oral 1200 / 1200 120 / 120 Output: Urine 800 / 800 Other: # Voids 2 2 Date of Last Bowel Movement 01/09/18 01/10/18 # Bowel Movements 3 1 - Constitutional no acute distress - Routine Respiratory Exam Present: CTA bilaterally - Routine Cardiovascular Exam Present: RRR - Routine Abdominal Exam Present: soft - Routine Extremities Exam Comments: no pedal edema. - Routine Neurological Exam Present: alert, oriented X3 - Urinary Catheter Management Indwelling Temp Sensing Catheter Cath placed during this visit: no Results - Labs CBC & Chem 7: 01/09/18 06:04 01/09/18 06:04 - Procedures Jejunostomy tube placement Assessment and Plan - Assessment (1) JACLYN (acute kidney injury) Code(s): N17.9 - Acute kidney failure, unspecified Status: Acute (2) Acute respiratory failure Code(s): J96.00 - Acute respiratory failure, unspecified whether with hypoxia or hypercapnia Status: Acute (3) Gastric perforation Code(s): K25.5 - Chronic or unspecified gastric ulcer with perforation Status : Resolved (4) Candidemia Code(s): B37.7 - Candidal sepsis Status: Acute (5) DVT (deep venous thrombosis) Code(s): I82.409 - Acute embolism and thrombosis of unspecified deep veins of unspecified lower extremity Status: Acute (6) Anemia Code(s): D64.9 - Anemia, unspecified Status: Acute - Plan ACUTE METABOLIC ENCEPHALOPATHY w ACUTE DELIRIUM due to critical illness: Resolving, cont oob w pt, cont st, ot, now can participate ACUTE RESPIRATORY FAILURE /TENSION PNEUMOTHORAX left pigtail chest tube removed 12/18 Extubated 12/22 continue Bronchodilator, Mucolytic and Incentive spirometry. now stable on RA CARDIAC ARREST 11/23/17 PEA arrest due to shock secondary to acute gastric perforation and tension pneumoperitoneum -Currently hemodynamically stable. ANTERIOR GASTRIC PERFORATION with TENSION PNEUMOPERITONEUM/ S/P SUBTOTAL GASTRECTOMY w feeding jejunostomy - Status post Exploratory laparotomy repair of perforation with stapler and Second look 11/25 found gastric necrosis requiring subtotal gastrectomy and placement of AB Thera VAC dressing, transferred to [facility] 11/28 reexploration with Dinh-en-y esophagojejunostomy, feeding jejunostomy placement diagnostic EGD primary fascial closure. - cont wound care, diet as tolerated, tube feeds on hold patient pulled J tube. Dietitian recommends to liberalize diet to regular mechanical soft with Ensure and live 3 times a day, Ensure pudding 3 times a day and Avelino twice a day and repeat calorie count January 11 January 13 ISCHEMIC HEPATOPATHY resolving GIB with ANEMIA OF ACUTE BLOOD LOSS EGD, enteroscopy 12/12/2017 unremarkable, colonoscopy 12/13/2017 unremarkable. Bleeding scan did not show any particular site of bleeding Had right upper quadrant ultrasound on 11/27/17 that demonstrated contracted gallbladder with sludge. No evidence of cholecystitis. Echogenicity in right liver related to focal fatty change or altered perfusion, patent vascularity. Appreciate general surgery following. Continue mechanical soft, thickened liquid diet. Repeat Hemoccult positive 1 out of 3. No gross bleeding. J-tube recently pulled out by patient Symptomatic ANEMIA requiring transfusion/THROMBOCYTOPENIA resolved. Iron deficient no active bleeding but transfused with packed RBC patient is tachycardic, patient is finally consenting to transfusion. Per renal , no indication for Epogen with improving renal function ACUTE RENAL FAILURE secondary to ISCHEMIC ATN requiring dialysis HD started 11/26 Nephrology following. Hold hemodialysis per nephrology since patient's renal function continues to improve. Nephrology has signed off KLEBSIELLA ESBL ABD WOUND INFECTION -discontinue Invanz CANDIDEMIA following gastric perforation and gastric ischemia. Blood culture at [facility] in [place] on 11/26 had Starr glabrata. Repeat blood culture is negative. evaluated by ID. S/p micafungin for candidemia. BILATERAL UE DVT U/s 11/26 BUE - thrombus R axillary, brachial and basilic veins and thrombus in left axillary and left brachial veins. Hematology consult was obtained at [facility] and patient was treated with heparin. Continue subcu heparin here(On hold secondary to GIB and symptomatic anemia) Repeat US resolved DVT can safely start PIV PRESSURE ULCER OF SACRUM/COCCYX and BUTTOCKS Wound care nursing following. Continue with dressing change and frequent turning. MUSCLE WEAKNESS AND MYOPATHY OF CRITICAL ILLNESS - extremely weak, cont PT,will require placement SEVERE PROTEIN CALORIE MALNUTRITION w bmi 14.5, alb 1.7, w mild dysphagia and s/ p partial gastrectomy, cont thickened diet as tolerated, has poor appetite, supplemental Jejunostomy TF till bmi improves may change to nightly feeds supplementation and oral during daytime if his po intake improves, fu w nutrition and st recommendations. Improving weight BMI up to 16.7. Tube feeding on hold patient pulled PEG. Dietitian recommends to liberalize diet to regular mechanical soft with Ensure and live 3 times a day, Ensure pudding 3 times a day and Avelino twice a day and repeat calorie count January 11 January 13 HTN - hydralazine and metoprolol HYPOKALEMIA - replace w caution, fu w nephrology. Repeat BMP shows improving hypokalemia on scheduled potassium LEUKOCYTOSIS - no fever, DYSPHAGIA - asp risk, cont thickened liq per ST,resume oral diet as tolerated DIARRHEA- neg for cdif, immodium not helping, prob due to tube feeding(already dc) , added florastor, questran. [id number] Lomotil for 2 days DISPO - will need placement insurance pending Discharge Planning: [facility]. (2) Acute respiratory failure Qualifiers: Respiratory failure complication: hypoxia Qualified Code(s): J96.01 - Acute respiratory failure with hypoxia
[2018-01-10] MEDS: Collagenase Oint 30 GM Tube TOPICAL SCH (13:05)
[2018-01-11] MEDS: Metoprolol Tartrate 25 MG Tablet PO SCH ×4 (04:41→20:32)
[2018-01-11 07:12] LABS: Calcium 7.6 mg/dL (8.5-10.1); Carbon Dioxide 18.1 meq/L (21.0-32.0)
[2018-01-11] MEDS: Cholestyramine Light 4 GM Packet PO SCH ×2 (08:52→20:31)
[2018-01-11] MEDS: Ferrous Sulfate 325 MG Tablet PO SCH (08:52)
[2018-01-11] MEDS: hydrALAZINE 50 MG Tablet PO SCH ×3 (09:05→19:00)
--- NOTE | 2018-01-11 10:10 | P.PNIM ---
Subjective Interval history: in no distress. no new complaints. Physical Exam Vital signs: Vital Signs 01/10/18 12:00 01/10/18 16:00 01/10/18 20:00 Temperature 97.7 F 97.7 F 98 F Pulse Rate 59 L 102 H 96 H Respiratory Rate 18 18 18 Blood Pressure 134/67 107/64 108/57 L Pulse Oximetry 100 99 99 01/11/18 00:00 01/11/18 04:00 01/11/18 08:00 Temperature 98.4 F 98.3 F 98.5 F Pulse Rate 94 H 92 H 93 H Respiratory Rate 17 18 16 Blood Pressure 137/69 97/52 L 98/54 L Pulse Oximetry 99 99 98 Intake & Output 01/10/18 01/11/18 01/11/18 18:59 06:59 18:59 Intake Total 720 / 720 Balance 720 / 720 Weight 54.1 kg Intake: Oral 720 / 720 Other: # Voids 5 1 Date of Last Bowel Movement 01/10/18 01/11/18 # Bowel Movements 4 - Constitutional no acute distress, thin - Routine Respiratory Exam Present: CTA bilaterally - Routine Cardiovascular Exam Present: RRR - Routine Abdominal Exam Present: soft - Routine Extremities Exam Comments: no pedal edema. - Routine Neurological Exam Present: alert, oriented X3 - Urinary Catheter Management Indwelling Temp Sensing Catheter Cath placed during this visit: no Results - Labs CBC & Chem 7: 01/09/18 06:04 01/11/18 06:17 Laboratory Results - last 24 hr 01/11/18 06:17 Sodium 143 Potassium 4.0 Chloride 116 H Carbon Dioxide 18.1 L Anion Gap 9 BUN 10 Creatinine 1.45 H Estimated GFR 64 L Random Glucose 73 L Calcium 7.6 L - Procedures Jejunostomy tube placement Assessment and Plan - Assessment (1) JACLYN (acute kidney injury) Code(s): N17.9 - Acute kidney failure, unspecified Status: Acute (2) Acute respiratory failure Code(s): J96.00 - Acute respiratory failure, unspecified whether with hypoxia or hypercapnia Status: Acute (3) Gastric perforation Code(s): K25.5 - Chronic or unspecified gastric ulcer with perforation Status : Resolved (4) Candidemia Code(s): B37.7 - Candidal sepsis Status: Acute (5) DVT (deep venous thrombosis) Code(s): I82.409 - Acute embolism and thrombosis of unspecified deep veins of unspecified lower extremity Status: Acute (6) Anemia Code(s): D64.9 - Anemia, unspecified Status: Acute - Plan ACUTE METABOLIC ENCEPHALOPATHY w ACUTE DELIRIUM due to critical illness: Resolving, cont oob w pt, cont st, ot, now can participate ACUTE RESPIRATORY FAILURE /TENSION PNEUMOTHORAX left pigtail chest tube removed 12/18 Extubated 12/22 continue Bronchodilator, Mucolytic and Incentive spirometry. now stable on RA CARDIAC ARREST 11/23/17 PEA arrest due to shock secondary to acute gastric perforation and tension pneumoperitoneum -Currently hemodynamically stable. ANTERIOR GASTRIC PERFORATION with TENSION PNEUMOPERITONEUM/ S/P SUBTOTAL GASTRECTOMY w feeding jejunostomy - Status post Exploratory laparotomy repair of perforation with stapler and Second look 11/25 found gastric necrosis requiring subtotal gastrectomy and placement of AB Thera VAC dressing, transferred to [facility] 11/28 reexploration with Dinh-en-y esophagojejunostomy, feeding jejunostomy placement diagnostic EGD primary fascial closure. - cont wound care, diet as tolerated, tube feeds on hold patient pulled J tube. Dietitian recommends to liberalize diet to regular mechanical soft with Ensure and live 3 times a day, Ensure pudding 3 times a day and Avelino twice a day and repeat calorie count January 11 January 13 ISCHEMIC HEPATOPATHY resolving GIB with ANEMIA OF ACUTE BLOOD LOSS EGD, enteroscopy 12/12/2017 unremarkable, colonoscopy 12/13/2017 unremarkable. Bleeding scan did not show any particular site of bleeding Had right upper quadrant ultrasound on 11/27/17 that demonstrated contracted gallbladder with sludge. No evidence of cholecystitis. Echogenicity in right liver related to focal fatty change or altered perfusion, patent vascularity. Appreciate general surgery following. Continue mechanical soft, thickened liquid diet. J-tube recently pulled out by patient Symptomatic ANEMIA requiring transfusion/THROMBOCYTOPENIA resolved. Iron deficient no active bleeding but transfused with packed RBC . ACUTE RENAL FAILURE secondary to ISCHEMIC ATN requiring dialysis HD started 11/26 but then discontinued per nephrology since patient's renal function continues to improve. Nephrology has signed off KLEBSIELLA ESBL ABD WOUND INFECTION -treated with Invanz CANDIDEMIA following gastric perforation and gastric ischemia. Blood culture at [facility] in [place] on 11/26 had Starr glabrata. Repeat blood culture is negative. evaluated by ID. S/p micafungin for candidemia. BILATERAL UE DVT U/s 11/26 BUE - thrombus R axillary, brachial and basilic veins and thrombus in left axillary and left brachial veins. Hematology consult was obtained at [facility] and patient was treated with heparin. Continue subcu heparin here. Repeat US resolved DVT . PRESSURE ULCER OF SACRUM/COCCYX and BUTTOCKS Wound care nursing following. Continue with dressing change and frequent turning. MUSCLE WEAKNESS AND MYOPATHY OF CRITICAL ILLNESS - extremely weak but improving slowly, cont PT,will require placement SEVERE PROTEIN CALORIE MALNUTRITION Dietitian recommends to liberalize diet to regular mechanical soft with Ensure and live 3 times a day, Ensure pudding 3 times a day and Avelino twice a day and repeat calorie count January 11 January 13 HTN - hydralazine and metoprolol Discharge Planning: [facility]. (2) Acute respiratory failure Qualifiers: Respiratory failure complication: hypoxia Qualified Code(s): J96.01 - Acute respiratory failure with hypoxia
[2018-01-11] MEDS: Collagenase Oint 30 GM Tube TOPICAL SCH (13:23)
--- NOTE | 2018-01-11 15:35 | P.DIET ---
Nutritional Evaluation Type of nutrition evaluation: follow-up Nutrition consult regarding: Tube Feeding, TPN/PPN (TPN D/C'ed) Nutrition screening: [facility] [place] [facility] Screening comments: 12/25 NEW [facility] for post gastrectomy diet 12/31 TF causing diarrhea? 01/02 [facility] for Calorie Counting Subjective Subjective Comments: Pt sitting by the window playing a card game w/his Stepmother. Pt says he feels like he is eating better;however, says he has to "go to the bathroom" when he eats anything. Pt does not like the Ensure Pudding, averaging 1-Enlive daily and uses the Avelino "sometimes". Pt provided updated food preferences. Pt and SVETLANA Linda informed a Calorie Count has been started. Brought forward from previous note 01/07/18: Pt says he has mixed the Avelino packet into liquid and it was not difficult for him; adds that he is "okay" w/ mixing and drinking the Avelino BID for two weeks(end date 01/21/18). Pt receptive to receiving Ensure Enlive and Ensure pudding w/meals. Encouraged pt to drink fluids between meals vs w/meals-pt says he understands. Pt says he feels like he has an improved appetite since the TF'ing is no longer running. Food preferences taken during this visit. Pt says his usual wt, prior to this hospital admission, is "around 200-lb" Objective - Diagnosis Gastroenteritis - Objective % IBW: 92 (IBW = 190#) Body Weight Used for Calculations: Actual (79.4) Energy Needs - Lower Range (kCal/kg): 28 Energy Needs - Upper Range (kCal/kg): 32 Lower Limit kCal/kg (kCals): 2,223 Upper Limit kCal/kg (kCals): 2,541 Lower Limit Protein Factor (Grams per Kg): 1.2 Upper Limit Protein Factor (Grams per Kg): 1.5 Lower Protein Needs (Protein): 95 Upper Protein Needs (Protein): 119 Dietitian Reviewed in Medical Record: Current diet, Curent medications, Intake & Output, Labs, Medical history Diet Order: [facility] Soft Oral Diet Intake Amount: Fair 50-75% Speech Therapy Recommendations: Yes (01/01/18 [facility] Soft Thin Liquids, TF'ing as primary) Wound Care Note: 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/25/17 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; Left buttock Pressure Injury Stage III Objective Comments: see recent extensive hx in H&P including Anterior Gastric Perforation w/Tension Pneumoperitoneum s/p subtotal gastrectomy Labs inlcude: Creatinine 1.45, estGFR 64 Meds include: Phoslo, Questran, Catapres, Lomotil, Haldol, Avelino, Metoprolol, Zofran +4 BM Feeding - Current PO Supplement Current Supplement: Ensure Enlive Current Frequency of Supplement: Three times a day Current kCals Provided by Supplement: 350 Current Protein Provided by Supplement: 20 Supplement Comments: Pt also receiving Ensure Pudding TID(= 170 kcal and 4g protein) Avelino 1-packet BID Assessment Assessment: Pt continues at high nutrition risk r/t extended hospital stay and clinical status, significant wt loss w/low BMI 15.3 and increased needs for wound healing ; pt is s/p subtotal gastrectomy w/risk for dumping syndrome. Pt previously receiving TF'ing w/Vital 1.5 @ goal rate 65ml/hr. Feeding tube discontinued d/t pt pulled the j-tube. MDC for Calorie Count w/Inadequate po intake. Agree w/ current diet. Restart Calorie count 01/11/18 through 01/13/18 w/Nutrition Recs to follow 01/14/18. Continue Ensure Enlive TID w/pt encouraged to drink Enlive between meals. D/C Ensure Pudding per pt request. Encouraged pt to use the Avelino 1-packet BID to aid in wound healing to end 01/21/18. Continue to [place] [employer]. Wt loss 32kg since admission 11/29/17. Brought forward from previous note 12/26/17: A Post gastrectomy diet usually consists of 6 small meals per day, only 4 ozs of fluid at meals, other fluids 1 hour before or after meals. Food needs to be well chewed. Of note: the hospital does not provide an option for 6 small meals a day. Nursing would need to order snacks and take them off the tray, put them in the refrigerator OR Ensure can be given between meals, but again nursing needs to control that. Recommendations: 1. Agree w/current diet 2. Risk for dumping syndrome 3. Restart Calorie count 01/11/18 through 01/13/18 w/Nutrition Recs to follow 4. Continue Ensure Enlive TID w/pt encouraged to drink Enlive between meals 5. D/C Ensure Pudding per pt request 6. Encouraged pt to use the Avelino 1-packet BID to aid in wound healing to end 7. Continue to [place] [employer] 8. Significant Wt loss 32kg since admission 11/29/17 Dietitian to Monitor: Lab values, Renal labs, Supplement acceptance, Intake & Output, Diet tolerance, Weight change, PO Intake, Wound/skin status, Swallow recommendations, Medical course
[2018-01-12] MEDS: Metoprolol Tartrate 25 MG Tablet PO SCH ×4 (03:06→20:02)
[2018-01-12] MEDS: Cholestyramine Light 4 GM Packet PO SCH ×2 (09:39→20:02)
[2018-01-12] MEDS: Ferrous Sulfate 325 MG Tablet PO SCH (09:40)
[2018-01-12] MEDS: hydrALAZINE 50 MG Tablet PO SCH ×3 (09:40→17:54)
--- NOTE | 2018-01-12 11:13 | P.PNIM ---
Subjective Interval history: in no acute distress. however had diarrhea over nigh. denies abdominal pain/ nausea or fever. Physical Exam Vital signs: Vital Signs 01/11/18 12:00 01/11/18 16:00 01/11/18 20:00 Temperature 98.2 F 97.8 F 98 F Pulse Rate 87 94 H 95 H Respiratory Rate 16 17 18 Blood Pressure 131/81 105/58 L 120/71 Pulse Oximetry 99 100 97 01/12/18 00:00 01/12/18 08:00 Temperature 98.3 F 97.7 F Pulse Rate 86 86 Respiratory Rate 18 18 Blood Pressure 100/55 L 86/53 L Pulse Oximetry 98 99 Intake & Output 01/11/18 01/12/18 01/12/18 18:59 06:59 18:59 Intake Total 1200 / 1200 Balance 1200 / 1200 Weight 60.3 kg Intake: Oral 1200 / 1200 Other: # Voids 3 2 Date of Last Bowel Movement 01/11/18 01/11/18 # Bowel Movements 2 2 - Constitutional no acute distress, thin - Routine Respiratory Exam Present: CTA bilaterally - Routine Cardiovascular Exam Present: RRR - Routine Abdominal Exam Present: soft - Routine Extremities Exam Comments: no pedal edema. - Routine Neurological Exam Present: alert, oriented X3 - Urinary Catheter Management Indwelling Temp Sensing Catheter Cath placed during this visit: no Results - Labs CBC & Chem 7: 01/09/18 06:04 01/11/18 06:17 Microbiology 12/07/17 10:10 Fluid - Pleural fluid Acid Fast Bacilli Smear - Final No acid fast bacilli seen 12/07/17 10:10 Fluid - Pleural fluid Mycobacterial Culture - Preliminary No growth in 5 weeks - Procedures Jejunostomy tube placement Assessment and Plan - Assessment (1) JACLYN (acute kidney injury) Code(s): N17.9 - Acute kidney failure, unspecified Status: Acute (2) Acute respiratory failure Code(s): J96.00 - Acute respiratory failure, unspecified whether with hypoxia or hypercapnia Status: Acute (3) Gastric perforation Code(s): K25.5 - Chronic or unspecified gastric ulcer with perforation Status : Resolved (4) Candidemia Code(s): B37.7 - Candidal sepsis Status: Acute (5) DVT (deep venous thrombosis) Code(s): I82.409 - Acute embolism and thrombosis of unspecified deep veins of unspecified lower extremity Status: Acute (6) Anemia Code(s): D64.9 - Anemia, unspecified Status: Acute - Plan ACUTE METABOLIC ENCEPHALOPATHY w ACUTE DELIRIUM due to critical illness: Resolving, cont oob w pt, cont st, ot, now can participate ACUTE RESPIRATORY FAILURE /TENSION PNEUMOTHORAX left pigtail chest tube removed 12/18 Extubated 12/22 continue Bronchodilator, Mucolytic and Incentive spirometry. now stable on RA CARDIAC ARREST 11/23/17 PEA arrest due to shock secondary to acute gastric perforation and tension pneumoperitoneum -Currently hemodynamically stable. ANTERIOR GASTRIC PERFORATION with TENSION PNEUMOPERITONEUM/ S/P SUBTOTAL GASTRECTOMY w feeding jejunostomy - Status post Exploratory laparotomy repair of perforation with stapler and Second look 11/25 found gastric necrosis requiring subtotal gastrectomy and placement of AB Thera VAC dressing, transferred to [facility] 11/28 reexploration with Dinh-en-y esophagojejunostomy, feeding jejunostomy placement diagnostic EGD primary fascial closure. - cont wound care, diet as tolerated, tube feeds on hold patient pulled J tube. Dietitian recommends to liberalize diet to regular mechanical soft with Ensure and live 3 times a day, Ensure pudding 3 times a day and Avelino twice a day and repeat calorie count January 11 January 13 ISCHEMIC HEPATOPATHY resolving GIB with ANEMIA OF ACUTE BLOOD LOSS EGD, enteroscopy 12/12/2017 unremarkable, colonoscopy 12/13/2017 unremarkable. Bleeding scan did not show any particular site of bleeding Had right upper quadrant ultrasound on 11/27/17 that demonstrated contracted gallbladder with sludge. No evidence of cholecystitis. Echogenicity in right liver related to focal fatty change or altered perfusion, patent vascularity. Appreciate general surgery following. Continue mechanical soft, thickened liquid diet. J-tube recently pulled out by patient Symptomatic ANEMIA requiring transfusion/THROMBOCYTOPENIA resolved. Iron deficient no active bleeding but transfused with packed RBC . ACUTE RENAL FAILURE secondary to ISCHEMIC ATN requiring dialysis HD started 11/26 but then discontinued per nephrology since patient's renal function continues to improve. Nephrology has signed off KLEBSIELLA ESBL ABD WOUND INFECTION -treated with Invanz CANDIDEMIA following gastric perforation and gastric ischemia. Blood culture at [facility] in [place] on 11/26 had Starr glabrata. Repeat blood culture is negative. evaluated by ID. S/p micafungin for candidemia. BILATERAL UE DVT U/s 11/26 BUE - thrombus R axillary, brachial and basilic veins and thrombus in left axillary and left brachial veins. Hematology consult was obtained at [facility] and patient was treated with heparin. Continue subcu heparin here. Repeat US resolved DVT . PRESSURE ULCER OF SACRUM/COCCYX and BUTTOCKS Wound care nursing following. Continue with dressing change and frequent turning. MUSCLE WEAKNESS AND MYOPATHY OF CRITICAL ILLNESS - extremely weak but improving slowly, cont PT,will require placement SEVERE PROTEIN CALORIE MALNUTRITION Dietitian recommends to liberalize diet to regular mechanical soft with Ensure and live 3 times a day, Ensure pudding 3 times a day and Avelino twice a day and repeat calorie count January 11 January 13 HTN - hydralazine and metoprolol Discharge Planning: [facility]. (2) Acute respiratory failure Qualifiers: Respiratory failure complication: hypoxia Qualified Code(s): J96.01 - Acute respiratory failure with hypoxia
[2018-01-12] MEDS: Collagenase Oint 30 GM Tube TOPICAL SCH (12:46)
[2018-01-13] MEDS: Metoprolol Tartrate 25 MG Tablet PO SCH ×4 (04:33→20:52)
[2018-01-13] MEDS: Cholestyramine Light 4 GM Packet PO SCH ×2 (09:55→20:52)
[2018-01-13] MEDS: Ferrous Sulfate 325 MG Tablet PO SCH (09:56)
[2018-01-13] MEDS: hydrALAZINE 50 MG Tablet PO SCH ×3 (09:56→17:48)
[2018-01-13] MEDS: Collagenase Oint 30 GM Tube TOPICAL SCH (10:00)
--- NOTE | 2018-01-13 11:10 | P.PNIM ---
Subjective Interval history: in no acute distress. has some diarrhea. walked with PT today. no new complaints. Physical Exam Vital signs: Vital Signs 01/12/18 12:00 01/12/18 16:00 01/12/18 20:00 Temperature 97.8 F 97.7 F 98.1 F Pulse Rate 81 86 86 Respiratory Rate 17 18 18 Blood Pressure 113/77 121/71 118/66 Pulse Oximetry 99 99 99 01/13/18 00:00 01/13/18 04:00 01/13/18 08:00 Temperature 98.3 F 98.8 F 97.9 F Pulse Rate 91 H 95 H 89 Respiratory Rate 18 18 15 Blood Pressure 113/65 117/69 117/71 Pulse Oximetry 98 98 98 Intake & Output 01/12/18 01/13/18 01/13/18 18:59 06:59 18:59 Intake Total 1200 / 1200 Output Total 1000 / 1000 Balance 200 / 200 Weight 59.3 kg Intake: Oral 1200 / 1200 Output: Urine 1000 / 1000 Other: # Voids 2 Date of Last Bowel Movement 01/12/18 # Bowel Movements 1 - Constitutional no acute distress, thin - Routine Respiratory Exam Present: CTA bilaterally - Routine Cardiovascular Exam Present: RRR - Routine Abdominal Exam Present: soft - Routine Extremities Exam Comments: no pedal edema. - Routine Neurological Exam Present: alert, oriented X3 - Urinary Catheter Management Indwelling Temp Sensing Catheter Cath placed during this visit: no Results - Labs CBC & Chem 7: 01/09/18 06:04 01/11/18 06:17 - Procedures Jejunostomy tube placement Assessment and Plan - Assessment (1) JACLYN (acute kidney injury) Code(s): N17.9 - Acute kidney failure, unspecified Status: Acute (2) Acute respiratory failure Code(s): J96.00 - Acute respiratory failure, unspecified whether with hypoxia or hypercapnia Status: Acute (3) Gastric perforation Code(s): K25.5 - Chronic or unspecified gastric ulcer with perforation Status : Resolved (4) Candidemia Code(s): B37.7 - Candidal sepsis Status: Acute (5) DVT (deep venous thrombosis) Code(s): I82.409 - Acute embolism and thrombosis of unspecified deep veins of unspecified lower extremity Status: Acute (6) Anemia Code(s): D64.9 - Anemia, unspecified Status: Acute - Plan ACUTE METABOLIC ENCEPHALOPATHY w ACUTE DELIRIUM due to critical illness: Resolving, cont oob w pt, cont st, ot, now can participate ACUTE RESPIRATORY FAILURE /TENSION PNEUMOTHORAX left pigtail chest tube removed 12/18 Extubated 12/22 continue Bronchodilator, Mucolytic and Incentive spirometry. now stable on RA CARDIAC ARREST 11/23/17 PEA arrest due to shock secondary to acute gastric perforation and tension pneumoperitoneum -Currently hemodynamically stable. 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 - cont wound care, diet as tolerated, tube feeds on hold patient pulled J tube. Dietitian recommends to liberalize diet to regular mechanical soft with Ensure and live 3 times a day, Ensure pudding 3 times a day and Avelino twice a day and repeat calorie count in process. ISCHEMIC HEPATOPATHY resolving GIB with ANEMIA OF ACUTE BLOOD LOSS EGD, enteroscopy 12/12/2017 unremarkable, colonoscopy 12/13/2017 unremarkable. Bleeding scan did not show any particular site of bleeding Had right upper quadrant ultrasound on 11/27/17 that demonstrated contracted gallbladder with sludge. No evidence of cholecystitis. Echogenicity in right liver related to focal fatty change or altered perfusion, patent vascularity. Appreciate general surgery following. Continue mechanical soft, thickened liquid diet. J-tube recently pulled out by patient Symptomatic ANEMIA requiring transfusion/THROMBOCYTOPENIA resolved. Iron deficient no active bleeding but transfused with packed RBC . ACUTE RENAL FAILURE secondary to ISCHEMIC ATN requiring dialysis HD started 11/26 but then discontinued per nephrology since patient's renal function continues to improve. Nephrology has signed off KLEBSIELLA ESBL ABD WOUND INFECTION -treated with Invanz CANDIDEMIA following gastric perforation and gastric ischemia. Blood culture at [facility] in [place] on 11/26 had Starr glabrata. Repeat blood culture is negative. evaluated by ID. S/p micafungin for candidemia. BILATERAL UE DVT U/s 11/26 BUE - thrombus R axillary, brachial and basilic veins and thrombus in left axillary and left brachial veins. Hematology consult was obtained at [facility] and patient was treated with heparin. Continue subcu heparin here. Repeat US resolved DVT . PRESSURE ULCER OF SACRUM/COCCYX and BUTTOCKS Wound care nursing following. Continue with dressing change and frequent turning. MUSCLE WEAKNESS AND MYOPATHY OF CRITICAL ILLNESS - extremely weak but improving slowly, cont PT,will require placement SEVERE PROTEIN CALORIE MALNUTRITION Dietitian recommends to liberalize diet to regular mechanical soft with Ensure and live 3 times a day, Ensure pudding 3 times a day and Avelino twice a day and repeat calorie count in process. HTN - hydralazine and metoprolol Discharge Planning: [facility]. (2) Acute respiratory failure Qualifiers: Respiratory failure complication: hypoxia Qualified Code(s): J96.01 - Acute respiratory failure with hypoxia
[2018-01-14] MEDS: Metoprolol Tartrate 25 MG Tablet PO SCH ×4 (03:37→21:20)
[2018-01-14 07:26] LABS: Baso # (Auto) 0.1 th/mm3 (0.0-0.2); Baso % (Auto) 1.4 % (0.0-2.0); Eos # (Auto) 0.3 th/mm3 (0.0-0.4); Eos % (Auto) 4.2 % (0.0-4.0); Hemoglobin 9.6 gm/dL (13.0-17.0); Lymph # (Auto) 1.1 th/mm3 (1.0-4.8); Lymph % (Auto) 14.7 % (9.0-44.0); Mean Corpuscular HGB Conc 33.3 % (32.0-36.0); Mean Corpuscular Hemoglobin 30.4 pg (27.0-34.0); Mean Corpuscular Volume 91.5 fL (80.0-100.0); Mean Platelet Volume 7.7 fL (7.0-11.0); Mono # (Auto) 0.5 th/mm3 (0.0-0.9); Mono % (Auto) 7.3 % (0.0-8.0); Neut # (Auto) 5.4 th/mm3 (1.8-7.7); Neut % (Auto) 72.4 % (16.0-70.0); Platelet Count 269 th/mm3 (150-450); Red Blood Count 3.17 mil/mm3 (4.50-5.90); Red Cell Distribution Width 17.4 % (11.6-17.2); White Blood Count 7.4 th/mm3 (4.0-11.0)
[2018-01-14 07:54] LABS: Calcium 7.9 mg/dL (8.5-10.1); Carbon Dioxide 18.7 meq/L (21.0-32.0); Potassium 3.9 meq/L (3.5-5.1)
[2018-01-14] MEDS: Ferrous Sulfate 325 MG Tablet PO SCH (08:16)
[2018-01-14] MEDS: hydrALAZINE 50 MG Tablet PO SCH ×3 (08:16→17:01)
[2018-01-14] MEDS: Cholestyramine Light 4 GM Packet PO SCH ×2 (08:19→21:20)
[2018-01-14] MEDS: Collagenase Oint 30 GM Tube TOPICAL SCH (10:12)
--- NOTE | 2018-01-14 12:07 | P.DIET ---
Nutritional Evaluation Type of nutrition evaluation: follow-up Nutrition consult regarding: Tube Feeding, TPN/PPN (TPN D/C'ed) Nutrition screening: MDC Screening comments: 12/25 NEW MDC for post gastrectomy diet 12/31 TF causing diarrhea? 01/02 MDC for Calorie Counting Subjective Subjective Comments: Pt is discharged focused when visited. Pt inquiring as to when he will be able to have tomato and lettuce for sandwiches. Pt reports the frequency of BM when he eats a meal is less frequent. Unopened bottle of Ensure Enlive on bedside table. Brought forward from previous note 01/07/18: Pt says he has mixed the Avelino packet into liquid and it was not difficult for him; adds that he is "okay" w/ mixing and drinking the Avelino BID for two weeks(end date 01/21/18). Pt receptive to receiving Ensure Enlive and Ensure pudding w/meals. Encouraged pt to drink fluids between meals vs w/meals-pt says he understands. Pt says he feels like he has an improved appetite since the TF'ing is no longer running. Food preferences taken during this visit. Pt says his usual wt, prior to this hospital admission, is "around 200-lb" Objective - Diagnosis Gastroenteritis - Objective % IBW: 92 (IBW = 190-lb) Body Weight Used for Calculations: Actual (79.4 admission wt) Energy Needs - Lower Range (kCal/kg): 28 Energy Needs - Upper Range (kCal/kg): 32 Lower Limit kCal/kg (kCals): 2,223 Upper Limit kCal/kg (kCals): 2,541 Lower Limit Protein Factor (Grams per Kg): 1.2 Upper Limit Protein Factor (Grams per Kg): 1.5 Lower Protein Needs (Protein): 95 Upper Protein Needs (Protein): 119 Dietitian Reviewed in Medical Record: Current diet, Curent medications, Intake & Output, Labs, Medical history, Wound/DTI Diet Order: [facility] Soft Oral Diet Intake Amount: Fair 50-75% Speech Therapy Recommendations: Yes (01/01/18 [facility] Soft Thin Liquids, TF'ing as primary) Wound Care Note: WOCN 12/25/17 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; Left buttock Pressure Injury Stage III Objective Comments: see recent extensive hx in H&P including Anterior Gastric Perforation w/Tension Pneumoperitoneum s/p subtotal gastrectomy Labs inlcude: Creatinine 1.33, estGFR 70 Meds include: Questran, Catapres, Haldol, Avelino, Metoprolol, Zofran, Protonix, Lactinex +2 BM Feeding - Current PO Supplement Current Supplement: Ensure Enlive Current Frequency of Supplement: Three times a day Current kCals Provided by Supplement: 350 Current Protein Provided by Supplement: 20 - kCal Count Day 1 kCal Intake: 1,650 Day 1 Protein Intake: 93 Day 2 kCal Intake: 1,450 Day 2 Protein Intake: 67 Day 3 kCal Intake: 1,090 Day 3 Protein Intake: 34 Assessment Assessment: Pt continues at high nutrition risk r/t extended hospital stay and clinical status, significant wt loss w/low BMI 17.1 and increased needs for wound healing ; pt is s/p subtotal gastrectomy w/risk for dumping syndrome. Pt previously receiving TF'ing w/Vital 1.5 @ goal rate 65ml/hr. Feeding tube discontinued d/t pt pulled the j-tube. Repeat Calorie Count w/Inadequate po intake. Pt averaged 60% for protein needs and 69% for kcal needs. Significant wt loss >30kg since admission 11/29/17. Rec supplemental nocturnal TF'ing w/Vital 1.5 @ 70ml/hr 8p- 6a to offer 1050 kcal, 47g protein and 535ml free water. Pt is averaging one Ensure Enlive QD. Encouraged pt to use the Avelino 1-packet BID to aid in wound healing to end 01/21/18. Continue to [employer]. Rec ST [employer] for diet texture upgrade. Brought forward from previous note 12/26/17: A Post gastrectomy diet usually consists of 6 small meals per day, only 4 ozs of fluid at meals, other fluids 1 hour before or after meals. Food needs to be well chewed. Of note: the hospital does not provide an option for 6 small meals a day. Nursing would need to order snacks and take them off the tray, put them in the refrigerator OR Ensure can be given between meals, but again nursing needs to control that. Recommendations: 1. Repeat Calorie Count w/Inadequate po intake 2. Significant wt loss >30kg since admission 11/29/17 3. Rec supplemental nocturnal TF'ing w/Vital 1.5 @ 70ml/hr 8p-6a 4. Decrease Ensure Enlive TID to QD-pt to drink between meals 5. Encouraged pt to use the Avelino 1-packet BID to aid in wound healing to end 6. Continue to [employer] 7. Rec ST [employer] for diet texture upgrade Dietitian to Monitor: Lab values, Renal labs, Supplement acceptance, Intake & Output, Diet tolerance, Weight change, PO Intake, Wound/skin status, Swallow recommendations, Medical course
--- NOTE | 2018-01-14 13:57 | P.PNIM ---
Subjective Interval history: in no acute distress. having his lunch. looks comfortable. no BM since last night. Physical Exam Vital signs: Last Vital Signs Temp 97.6 F 01/14/18 12:00 Pulse 80 01/14/18 12:00 Resp 16 01/14/18 12:00 BP 121/73 01/14/18 12:00 Pulse Ox 99 01/14/18 12:00 Intake & Output 01/12/18 01/13/18 01/14/18 01/15/18 06:59 06:59 06:59 06:59 Intake Total 1200 / 1200 1200 / 1200 750 / 750 Output Total 1000 / 1000 725 / 725 Balance 1200 / 1200 200 / 200 25 / 25 Weight 60.3 kg 59.3 kg 60.3 kg Constitutional no acute distress Routine Respiratory Exam Present CTA bilaterally Routine Cardiovascular Exam Present RRR Routine Abdominal Exam Present soft Routine Extremities Exam Comments: no pedal edema. Routine Neurological Exam Present alert and oriented X3 Urinary Catheter Management Indwelling Temp Sensing Catheter: Cath placed during this visit: no Results Labs CBC & Chem 7: 01/14/18 06:59 01/14/18 06:59 Procedures Procedures: Jejunostomy tube placement Assessment and Plan (1) JACLYN (acute kidney injury): Code(s): N17.9 - Acute kidney failure, unspecified Status: Acute (2) Acute respiratory failure: Code(s): J96.00 - Acute respiratory failure, unspecified whether with hypoxia or hypercapnia Status: Acute (3) Gastric perforation: Code(s): K25.5 - Chronic or unspecified gastric ulcer with perforation Status: Resolved (4) Candidemia: Code(s): B37.7 - Candidal sepsis Status: Acute (5) DVT (deep venous thrombosis): Code(s): I82.409 - Acute embolism and thrombosis of unspecified deep veins of unspecified lower extremity Status: Acute (6) Anemia: Code(s): D64.9 - Anemia, unspecified Status: Acute Plan ACUTE METABOLIC ENCEPHALOPATHY w ACUTE DELIRIUM due to critical illness: Resolving, cont oob w pt, cont st, ot, now can participate ACUTE RESPIRATORY FAILURE /TENSION PNEUMOTHORAX left pigtail chest tube removed 12/18 Extubated 12/22 continue Bronchodilator, Mucolytic and Incentive spirometry. now stable on RA CARDIAC ARREST 11/23/17 PEA arrest due to shock secondary to acute gastric perforation and tension pneumoperitoneum -Currently hemodynamically stable. 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 - cont wound care, diet as tolerated, tube feeds on hold patient pulled J tube. Dietitian recommends to liberalize diet to regular mechanical soft with Ensure - calorie count completed 01/13; still with low calorie intake; recommended tube feeding over night. ISCHEMIC HEPATOPATHY resolving GIB with ANEMIA OF ACUTE BLOOD LOSS EGD, enteroscopy 12/12/2017 unremarkable, colonoscopy 12/13/2017 unremarkable. Bleeding scan did not show any particular site of bleeding Had right upper quadrant ultrasound on 11/27/17 that demonstrated contracted gallbladder with sludge. No evidence of cholecystitis. Echogenicity in right liver related to focal fatty change or altered perfusion, patent vascularity. Appreciate general surgery following. Continue mechanical soft, thickened liquid diet. J-tube recently pulled out by patient Symptomatic ANEMIA requiring transfusion/THROMBOCYTOPENIA resolved. Iron deficient no active bleeding but transfused with packed RBC . ACUTE RENAL FAILURE secondary to ISCHEMIC ATN requiring dialysis HD started 11/26 but then discontinued per nephrology since patient's renal function continues to improve. Nephrology has signed off KLEBSIELLA ESBL ABD WOUND INFECTION -treated with Invanz CANDIDEMIA following gastric perforation and gastric ischemia. Blood culture at [facility] in [place] on 11/26 had Starr glabrata. Repeat blood culture is negative. evaluated by ID. S/p micafungin for candidemia. BILATERAL UE DVT U/s 11/26 BUE - thrombus R axillary, brachial and basilic veins and thrombus in left axillary and left brachial veins. Hematology consult was obtained at [facility] and patient was treated with heparin. Continue subcu heparin here. Repeat US resolved DVT . PRESSURE ULCER OF SACRUM/COCCYX and BUTTOCKS Wound care nursing following. Continue with dressing change and frequent turning. MUSCLE WEAKNESS AND MYOPATHY OF CRITICAL ILLNESS - extremely weak but improving slowly, cont PT,will require placement SEVERE PROTEIN CALORIE MALNUTRITION Dietitian recommends to liberalize diet to regular mechanical soft - calorie count completed on 12/9; weight trainer following; recommended tube feeding over night. HTN - hydralazine and metoprolol [facility]charge Planning: [facility]. Progress Note: Quality VTE Deep Vein Thrombosis/Pulmonary Embolism Present on Admission: No _ (1) Acute respiratory failure Qualifiers: Respiratory failure complication: hypoxia Qualified Code(s): J96.01 - Acute respiratory failure with hypoxia (2) DVT (deep venous thrombosis) Qualifiers: DVT location: Affected thrombotic vein of extremity: Chronicity: Laterality: (3) Anemia Qualifiers: Anemia type: Iron deficiency anemia type: Vitamin B12 deficiency anemia type: Folate deficiency anemia type: Bone marrow failure anemia type: Hemolytic anemia type: Other causes of anemia: Chronic kidney disease stage :
--- NOTE | 2018-01-14 14:31 | P.PNGS ---
Subjective Patient reports: feels better (Patient up in chair. Aunt and uncle at bedside. Patient has been eating well. Did not have to get out of bed to use the bathroom last night she did indication his diarrhea is improving. Apparently case management's talked the patient about going home with rehab support at home as opposed to inpatient rehab. Patient's aunt thinks he is ready for this. ) Physical Exam Vital signs: Vital Signs 01/13/18 16:00 01/13/18 20:00 01/14/18 00:00 Temperature 97.7 F 97.5 F L 98.2 F Pulse Rate 90 82 80 Respiratory Rate 18 16 16 Blood Pressure 139/81 120/69 122/76 Pulse Oximetry 98 100 98 01/14/18 04:00 01/14/18 08:00 01/14/18 12:00 Temperature 98.5 F 97.1 F L 97.6 F Pulse Rate 87 98 H 80 Respiratory Rate 16 16 16 Blood Pressure 116/67 119/63 121/73 Pulse Oximetry 98 100 99 Intake & Output 01/13/18 01/14/18 01/14/18 18:59 06:59 18:59 Intake Total 750 / 750 Output Total 725 / 725 Balance 25 / 25 Weight 60.3 kg Intake: Oral 750 / 750 Output: Urine 725 / 725 Other: # Voids 2 Date of Last Bowel Movement 01/13/18 01/13/18 # Bowel Movements 1 2 Narrative: His abdomen is soft and nondistended. His midline incision is well-healed. Feeding tube exit sites well-healed. His decubitus ulcer was examined has mostly good healthy granulation bed. It measures about 5 x 7 cm in size. - Urinary Catheter Management Indwelling Temp Sensing Catheter Cath placed during this visit: no Results - Labs 01/14/18 06:59 01/14/18 06:59 Laboratory Results - last 24 hr 01/14/18 01/14/18 06:59 06:59 WBC 7.4 RBC 3.17 L Hgb 9.6 L Hct 29.0 L MCV 91.5 MCH 30.4 MCHC 33.3 RDW 17.4 H Plt Count 269 MPV 7.7 Neut % (Auto) 72.4 H Lymph % (Auto) 14.7 Milam % (Auto) 7.3 Eos % (Auto) 4.2 H Baso % (Auto) 1.4 Neut # (Auto) 5.4 Lymph # (Auto) 1.1 Milam # (Auto) 0.5 Eos # (Auto) 0.3 Baso # (Auto) 0.1 WBC Differential . Differential Comment Auto diff final Sodium 143 Potassium 3.9 Chloride 115 H Carbon Dioxide 18.7 L Anion Gap 9 BUN 17 Creatinine 1.33 H Estimated GFR 70 L Random Glucose 76 Calcium 7.9 L - Imaging Imaging: ITS Impressions Head MRI 12/03/17 00:00 CONCLUSION: 1. Minimal nonspecific periventricular white matter changes. 2. No restricted diffusion to suggest an acute ischemic event. 3. No evidence for significant ischemic changes. Chest CT 12/04/17 00:06 CONCLUSION: 1. Left greater than right pleural effusions and basilar atelectasis. 2. No hemorrhage or hematoma demonstrated. 3. Distended and fluid-filled esophagus. No wall thickening. Patient is status post gastrectomy. Nasogastric tube is at the GE junction. 4. Body wall edema/anasarca. Abdomen X-Ray 12/08/17 00:00 CONCLUSION: 1. 2 left-sided abdominal catheters. 2. Nonspecific bowel gas pattern. Abdomen/Pelvis CT 12/13/17 00:00 CONCLUSION: 1. New proximal small bowel dilatation. No discrete transition point. Contrast is seen in the distal small bowel. Findings may represent ileus or partial obstruction. 2. Postsurgical findings with surgical drains in the left upper quadrant. Free fluid is seen in the left upper quadrant. Loculated rounded 5 cm area of fluid with thin peripheral enhancement also noted just inferior to the surgical drains. 3. Prominent left lower lobe pulmonary consolidation and small left pleural effusion. GI Bleed Scan Nuclear Medicine 12/15/17 00:00 CONCLUSION: No active bleeding demonstrated. Chest X-Ray 12/22/17 00:00 CONCLUSION: 1. Persistent patchy infiltrate within the left lung base. 2. Multiple tubes and lines are stable. The nasogastric tube remains with its tip in the distal esophagus. New right subclavian central line has its tip in superior vena cava. No pneumothorax is noted. Small Bowel X-Ray 12/22/17 00:00 CONCLUSION: No evidence of bowel obstruction. There is mild diffuse small bowel wall thickening identified within the jejunum and ileum consistent with possible edema given the appearance on initial imaging. Drain overlying the left lower quadrant. Jejunostomy Tube Placement 12/28/17 00:00 CONCLUSION: 1. Uncomplicated placement of a new 16 [place] jejunostomy catheter through existing tract. Venous Doppler Study 01/05/18 12:27 CONCLUSION: 1. The study is negative for bilateral upper extremity deep venous thrombosis. Assessment and Plan - Assessment (1) Gastric perforation Code(s): K25.5 - Chronic or unspecified gastric ulcer with perforation Status : Resolved Plan: 47yo male s/p Exlap and gastrectomy for gastric perforation, s/p esophagojejunostomy at [facility] -Continue diet---supplement with Ensure/Boost -Vascath removed -Needs to continue aggressive PT ! -Okay to shower -[facility] Agree with plan - Plan I personally evaluated the patient in room 1730. His aunt and uncle were at his bedside. He is awake and alert and conversant. He has been tolerating an oral diet. He has had liquid stools. He walked over half-way down the [place] and back on his own without assistance. He is regaining his strength. His hemoglobin is been low he is consenting to receiving a unit of packed red blood cells. Plans are being made to hopefully obtain a betty bed at the [facility]. He is an excellent candidate at this point. We will discontinue the ertapenem if it is okay with infectious disease doctor. I will make sure that the patient is on a probiotic. Patient spoke with a auto seat cover installer this morning. The exam, history, and the medical decision-making described in the above note were completed with the assistance of the mid-level provider. I reviewed and agree with the findings presented. I attest that I had a [id number] encounter with the patient on the same day, and personally performed and documented my assessment and findings in the medical record. 01/09/2018 I personally evaluated the patient in room 1730. His [facility] Patient continues to gradually improve and recover from multisystem organ failure following subtotal gastrectomy for gastric necrosis. He is undergone gastrojejunostomy. His feeding tube is been removed. He is off of antibiotics. His kidney function is returning and he has been off of dialysis. Awaiting approval for rehabilitation inpatient position. I will discontinue Protonix as the patient has no stomach. 01/14/2018 Postop subtotal gastrectomy with gastrojejunostomy. Patient's nutrition is significantly improved. His multisystem organ failure has resolved. He now is a candidate to go home with rehab programs in his home. His aunt feels like he is ready for this. His decubitus ulcer continues to heal with good healthy granulation tissue. Continue current care. Follow-up with surgery 2-4 weeks post discharge.
[2018-01-15] MEDS: Metoprolol Tartrate 25 MG Tablet PO SCH ×4 (03:59→20:22)
[2018-01-15] MEDS: Cholestyramine Light 4 GM Packet PO SCH ×2 (09:14→20:23)
[2018-01-15] MEDS: hydrALAZINE 50 MG Tablet PO SCH ×3 (09:15→19:26)
[2018-01-15] MEDS: Ferrous Sulfate 325 MG Tablet PO SCH (09:16)
--- NOTE | 2018-01-15 11:20 | P.PNIM ---
Subjective Interval history: in no acute distress. denies pain. no new complaints. Physical Exam Vital signs: Last Vital Signs Temp 97.2 F L 01/15/18 08:00 Pulse 122 H 01/15/18 08:00 Resp 17 01/15/18 08:00 BP 118/61 01/15/18 08:00 Pulse Ox 100 01/15/18 08:00 Intake & Output 01/13/18 01/14/18 01/15/18 01/16/18 06:59 06:59 06:59 06:59 Intake Total 1200 / 1200 750 / 750 840 / 840 Output Total 1000 / 1000 725 / 725 300 / 300 Balance 200 / 200 25 / 25 540 / 540 Weight 59.3 kg 60.3 kg 65.6 kg Constitutional no acute distress Routine Respiratory Exam Present CTA bilaterally Routine Cardiovascular Exam Present RRR Routine Abdominal Exam Present soft Routine Extremities Exam Comments: no pedal edema. Routine Neurological Exam Present alert and oriented X3 Urinary Catheter Management Indwelling Temp Sensing Catheter: Cath placed during this visit: no Results Labs CBC & Chem 7: 01/14/18 06:59 01/14/18 06:59 Procedures Procedures: Jejunostomy tube placement Assessment and Plan (1) JACLYN (acute kidney injury): Code(s): N17.9 - Acute kidney failure, unspecified Status: Acute (2) Acute respiratory failure: Code(s): J96.00 - Acute respiratory failure, unspecified whether with hypoxia or hypercapnia Status: Acute (3) Gastric perforation: Code(s): K25.5 - Chronic or unspecified gastric ulcer with perforation Status: Resolved (4) Candidemia: Code(s): B37.7 - Candidal sepsis Status: Acute (5) DVT (deep venous thrombosis): Code(s): I82.409 - Acute embolism and thrombosis of unspecified deep veins of unspecified lower extremity Status: Acute (6) Anemia: Code(s): D64.9 - Anemia, unspecified Status: Acute Plan ACUTE METABOLIC ENCEPHALOPATHY w ACUTE DELIRIUM due to critical illness: Resolving, cont oob w pt, cont st, ot, now can participate ACUTE RESPIRATORY FAILURE /TENSION PNEUMOTHORAX left pigtail chest tube removed 12/18 Extubated 12/22 continue Bronchodilator, Mucolytic and Incentive spirometry. now stable on RA CARDIAC ARREST 11/23/17 PEA arrest due to shock secondary to acute gastric perforation and tension pneumoperitoneum -Currently hemodynamically stable. ANTERIOR GASTRIC PERFORATION with TENSION PNEUMOPERITONEUM/ S/P SUBTOTAL GASTRECTOMY w feeding jejunostomy - Status post Exploratory laparotomy repair of perforation with stapler and Second look 11/25 found gastric necrosis requiring subtotal gastrectomy and placement of AB Thera VAC dressing, transferred to [facility] 11/28 reexploration with Dinh-en-y esophagojejunostomy, feeding jejunostomy placement diagnostic EGD primary fascial closure. - cont wound care, diet as tolerated, tube feeds on hold patient pulled J tube. Dietitian recommends to liberalize diet to regular mechanical soft with Ensure - calorie count completed 01/13; still with low calorie intake; recommended tube feeding over night- however the patient with no access; thsi was d/w the surgery today; will ask the produce clerk to possibly change the diet to more frequent small portions throughout the day and repeat the calorie count. ISCHEMIC HEPATOPATHY resolving GIB with ANEMIA OF ACUTE BLOOD LOSS EGD, enteroscopy 12/12/2017 unremarkable, colonoscopy 12/13/2017 unremarkable. Bleeding scan did not show any particular site of bleeding Had right upper quadrant ultrasound on 11/27/17 that demonstrated contracted gallbladder with sludge. No evidence of cholecystitis. Echogenicity in right liver related to focal fatty change or altered perfusion, patent vascularity. Appreciate general surgery following. Continue mechanical soft, thickened liquid diet. J-tube recently pulled out by patient Symptomatic ANEMIA requiring transfusion/THROMBOCYTOPENIA resolved. Iron deficient no active bleeding but transfused with packed RBC . ACUTE RENAL FAILURE secondary to ISCHEMIC ATN requiring dialysis HD started 11/26 but then discontinued per nephrology since patient's renal function continues to improve. Nephrology has signed off KLEBSIELLA ESBL ABD WOUND INFECTION -treated with Invanz CANDIDEMIA following gastric perforation and gastric ischemia. Blood culture at [facility] in [place] on 11/26 had Starr glabrata. Repeat blood culture is negative. evaluated by ID. S/p micafungin for candidemia. BILATERAL UE DVT U/s 11/26 BUE - thrombus R axillary, brachial and basilic veins and thrombus in left axillary and left brachial veins. Hematology consult was obtained at [facility] and patient was treated with heparin. Continue subcu heparin here. Repeat US resolved DVT . PRESSURE ULCER OF SACRUM/COCCYX and BUTTOCKS Wound care nursing following. Continue with dressing change and frequent turning. MUSCLE WEAKNESS AND MYOPATHY OF CRITICAL ILLNESS - extremely weak but improving slowly, cont PT,will require placement SEVERE PROTEIN CALORIE MALNUTRITION Dietitian recommends to liberalize diet to regular mechanical soft - calorie count completed on 01/13; produce clerk following; recommended tube feeding over night. psych consulted for possible depression. HTN - hydralazine and metoprolol Discharge Planning: home- patient has failed the calorie count; awaiting surgery and produce clerk recommendations- not ready for discharge yet. Progress Note: Quality VTE Deep Vein Thrombosis/Pulmonary Embolism Present on Admission: No _ (1) Acute respiratory failure Qualifiers: Respiratory failure complication: hypoxia Qualified Code(s): J96.01 - Acute respiratory failure with hypoxia (2) DVT (deep venous thrombosis) Qualifiers: Affected thrombotic vein of extremity: Chronicity: DVT location: Laterality: (3) Anemia Qualifiers: Anemia type: Bone marrow failure anemia type: Chronic kidney disease stage : Folate deficiency anemia type: Hemolytic anemia type: Iron deficiency anemia type: Other causes of anemia: Vitamin B12 deficiency anemia type:
[2018-01-15] MEDS: Collagenase Oint 30 GM Tube TOPICAL SCH (14:24)
[2018-01-16] MEDS: Metoprolol Tartrate 25 MG Tablet PO SCH ×4 (04:18→21:00)
[2018-01-16] MEDS: hydrALAZINE 50 MG Tablet PO SCH ×3 (09:38→17:32)
[2018-01-16] MEDS: Ferrous Sulfate 325 MG Tablet PO SCH (09:39)
[2018-01-16] MEDS: Cholestyramine Light 4 GM Packet PO SCH ×2 (09:40→20:17)
--- NOTE | 2018-01-16 10:58 | P.PNIM ---
Subjective Interval history: in no acute distress. denies pain. no new complaints. Physical Exam Vital signs: Last Vital Signs Temp 98.2 F 01/16/18 08:00 Pulse 89 01/16/18 08:00 Resp 16 01/16/18 08:00 BP 120/78 01/16/18 08:00 Pulse Ox 99 01/16/18 08:00 Intake & Output 01/14/18 01/15/18 01/16/18 01/17/18 06:59 06:59 06:59 06:59 Intake Total 750 / 750 840 / 840 1080 / 1080 Output Total 725 / 725 300 / 300 Balance 25 / 25 540 / 540 1080 / 1080 Weight 60.3 kg 65.6 kg 65.1 kg Constitutional no acute distress and thin Routine Respiratory Exam Present CTA bilaterally Routine Cardiovascular Exam Present RRR Routine Abdominal Exam Present soft Routine Extremities Exam Comments: no pedal edema. Routine Neurological Exam Present alert and oriented X3 Urinary Catheter Management Indwelling Temp Sensing Catheter: Cath placed during this visit: no Results Labs CBC & Chem 7: 01/14/18 06:59 01/14/18 06:59 Procedures Procedures: Jejunostomy tube placement Assessment and Plan (1) JACLYN (acute kidney injury): Code(s): N17.9 - Acute kidney failure, unspecified Status: Acute (2) Acute respiratory failure: Code(s): J96.00 - Acute respiratory failure, unspecified whether with hypoxia or hypercapnia Status: Acute (3) Gastric perforation: Code(s): K25.5 - Chronic or unspecified gastric ulcer with perforation Status: Resolved (4) Candidemia: Code(s): B37.7 - Candidal sepsis Status: Acute (5) DVT (deep venous thrombosis): Code(s): I82.409 - Acute embolism and thrombosis of unspecified deep veins of unspecified lower extremity Status: Acute (6) Anemia: Code(s): D64.9 - Anemia, unspecified Status: Acute Plan ACUTE METABOLIC ENCEPHALOPATHY w ACUTE DELIRIUM due to critical illness: Resolved. ACUTE RESPIRATORY FAILURE /TENSION PNEUMOTHORAX left pigtail chest tube removed 12/18 Extubated 12/22 continue Bronchodilator, Mucolytic and Incentive spirometry. now stable on RA CARDIAC ARREST 11/23/17 PEA arrest due to shock secondary to acute gastric perforation and tension pneumoperitoneum -Currently hemodynamically stable. ANTERIOR GASTRIC PERFORATION with TENSION PNEUMOPERITONEUM/ S/P SUBTOTAL GASTRECTOMY w feeding jejunostomy - Status post Exploratory laparotomy repair of perforation with stapler and Second look 11/25 found gastric necrosis requiring subtotal gastrectomy and placement of AB Thera VAC dressing, transferred to [facility] 11/28 reexploration with Dinh-en-y esophagojejunostomy, feeding jejunostomy placement diagnostic EGD primary fascial closure. patient pulled J tube. Dietitian recommends to liberalize diet to regular mechanical soft with Ensure - calorie count completed 01/13; still with low calorie intake; recommended tube feeding over night- however the patient with no access; this was d/w the surgery on 01/15. asked the geographic information system surveyor to possibly change the diet to more frequent small portions throughout the day and repeat the calorie count. ISCHEMIC HEPATOPATHY resolving GIB with ANEMIA OF ACUTE BLOOD LOSS EGD, enteroscopy 12/12/2017 unremarkable, colonoscopy 12/13/2017 unremarkable. Bleeding scan did not show any particular site of bleeding Had right upper quadrant ultrasound on 11/27/17 that demonstrated contracted gallbladder with sludge. No evidence of cholecystitis. Echogenicity in right liver related to focal fatty change or altered perfusion, patent vascularity. Appreciate general surgery following. Continue mechanical soft, thickened liquid diet. J-tube pulled out by patient Symptomatic ANEMIA requiring transfusion/THROMBOCYTOPENIA resolved. Iron deficient no active bleeding but transfused with packed RBC . ACUTE RENAL FAILURE secondary to ISCHEMIC ATN requiring dialysis HD started 11/26 but then discontinued per nephrology since patient's renal function continues to improve. Nephrology has signed off KLEBSIELLA ESBL ABD WOUND INFECTION -treated with Invanz CANDIDEMIA following gastric perforation and gastric ischemia. Blood culture at [facility] in [place] on 11/26 had Starr glabrata. Repeat blood culture is negative. evaluated by ID. S/p micafungin for candidemia. BILATERAL UE DVT U/s 11/26 BUE - thrombus R axillary, brachial and basilic veins and thrombus in left axillary and left brachial veins. Hematology consult was obtained at [facility] and patient was treated with heparin. Continue subcu heparin here. Repeat US resolved DVT . PRESSURE ULCER OF SACRUM/COCCYX and BUTTOCKS Wound care nursing following. Continue with dressing change and frequent turning. MUSCLE WEAKNESS AND MYOPATHY OF CRITICAL ILLNESS - extremely weak but improving slowly, cont PT,will require placement SEVERE PROTEIN CALORIE MALNUTRITION Dietitian recommends to liberalize diet to regular mechanical soft - calorie count completed on 01/13; geographic information system surveyor following; recommended tube feeding over night. psych consulted to assist with possible depression. HTN - hydralazine and metoprolol Discharge Planning: home- patient has failed the calorie count; consulted geographic information system surveyor to repeat the calori count today. Progress Note: Quality VTE Deep Vein Thrombosis/Pulmonary Embolism Present on Admission: No _ (1) Acute respiratory failure Qualifiers: Respiratory failure complication: hypoxia Qualified Code(s): J96.01 - Acute respiratory failure with hypoxia (2) DVT (deep venous thrombosis) Qualifiers: DVT location: Affected thrombotic vein of extremity: Chronicity: Laterality: (3) Anemia Qualifiers: Anemia type: Iron deficiency anemia type: Vitamin B12 deficiency anemia type: Folate deficiency anemia type: Bone marrow failure anemia type: Hemolytic anemia type: Other causes of anemia: Chronic kidney disease stage :
--- NOTE | 2018-01-16 10:59 | P.CONPSY ---
Provisional Diagnosis Admission Date: November 29, 2017 18:34 [place] I.: Adjustment disorder with depressed mood vs major depressive disorder, single History of Present Illness Service: Medicine Primary Care Provider: UNKNOWN History of Present Illness: The patient is a 47-year-old -[place] man, domiciled with his mother in [facility], single, unemployed, without no previous psychiatric history, no previous suicide attempts, no previous psychiatric hospitalizations, who was hospitalized in [place] with multiple postsurgical complications, anterior gastric perforation, cardiac arrest, metabolic encephalopathy, acute respiratory failure due to tension pneumothorax, acute renal failure, hepatic failure, pressure ulcers in the sacral coccyx, muscle weakness, who has been consulted to psychiatry due to symptoms of depression. Chart reviewed. On my psychiatric evaluation the patient is found calm, cooperative, eating his breakfast. Patient reports that he feels better today. The patient is a little bit superficial and distant. He says that he has been depressed in the context of being in the hospital for several weeks and not seeing much improvement. He says that he would like to be home. He says that holidays are coming and he is still here. He reports that his improvement is very slow. He is hopeful that things could be better, but at the time he loses the hope and feels helpless and worthless. Patient reports decreased appetite, difficulty sleeping at night, moments of intrusive thoughts, anxiety, but he denies suicidal ideation. He denies homicidal ideation, visual and auditory hallucinations. The patient is fully oriented x3, no attention deficit, no fluctuation of consciousness at the moment. No loosening of associations, no ideas of reference, no paranoia, no agitation or aggressive behavior present. PPHx: No family psychiatric history PMHx: Hypertension Substance Hx: Patient denies use of illegal drugs or alcohol Family Hx: No family psychiatric history Social Hx: Patient was born and raised in [facility], he lives in [place] with his mother, single, has no kids, supported by social security Review of Systems All other systems reviewed negative except as stated in HPI Constitutional: Reports anorexia, Reports excessive sweating, Reports lack of energy Psychiatric: Reports anxiety, Reports depression, Reports hopelessness PMFSH - History History Provided By: Family Member - Medical History Medical History: Medical History (Last Reviewed 01/14/18 @ 08:58 by Melissa Nicole) 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 Onset Date : ~12/21/17 Patient denies medical problems - Surgical History Surgical History: Surgical History (Last Reviewed 01/14/18 @ 08:58 by Melissa Nicole) No history of previous surgery - Family History Family History: Family History (Last Reviewed 01/14/18 @ 08:58 by Melissa Nicole) Other Family history in first degree relatives is unremarkable - Tobacco History Second Hand Smoke Exposure: No Smoking Status: Never smoker - Alcohol History How Often Do You Have a Drink Containing Alcohol: Never - Substance Use History Substance History: No History of Abuse - Immunization History Tetanus Immunization: Unsure Hx Influenza Vaccine This Season: No Medications and Allergies Active Medications: Active Medications Acetaminophen (Tylenol Liq) 650 mg PO Q6H PRN PRN Reason: PAIN SCALE 1-10 Albuterol (Duoneb Neb (Prn)) 1 ampul NEB Q2HR NEB PRN PRN Reason: SHORTNESS OF BREATH Last Admin: 12/08/17 04:03 Dose: 1 ampul Cholestyramine Resin (Questran Light 4 Gm Pkt) 0 gm PO BID [facility]; Protocol Last Admin: 01/16/18 09:40 Dose: 4 gm Clonidine HCl (Catapres) 0.1 mg PO UNSCH X1 PRN PRN Reason: SEE LABEL COMMENTS Collagenase (Santyl Oint) 0 applicatio TOPICAL DAILY@1100 [facility] Last Admin: 01/15/18 14:24 Dose: Not Given Diphenhydramine HCl (Benadryl) 25 mg PO UNSCH PRN PRN Reason: SEE LABEL COMMENTS Ferrous Sulfate (Ferosul) 325 mg PO DAILY [facility] Last Admin: 01/16/18 09:39 Dose: 325 mg Gelatin (Gelfoam 12 Mm/7 Mm Topical) 1 foam TOPICAL UNSCH PRN PRN Reason: help stop bleeding from site Last Admin: 12/02/17 13:35 Dose: 1 foam Gentamicin Sulfate (Gentamicin Inj) 20 mg OTHER WITH DIALYSIS PRN PRN Reason: Dwell Gentamycin Lock Last Admin: 12/29/17 10:42 Dose: 20 mg Haloperidol Lactate (Haldol Inj) 2 mg IM Q6H PRN PRN Reason: AGITATION AND/OR HALLUCINATION Last Admin: 12/26/17 05:00 Dose: 2 mg Heparin Sodium (Porcine) (Heparin Inj) 8,000 units OTHER WITH DIALYSIS PRN PRN Reason: for machine prime Heparin Sodium (Porcine) (Heparin Inj) 0 units OTHER WITH DIALYSIS PRN PRN Reason: Dwell Heparin to Fill Catheter Last Admin: 12/29/17 10:42 Dose: 1,000 units Heparin Sodium (Porcine) (Heparin Inj) 5,000 units SQ Q12HR [facility] Last Admin: 12/06/17 08:13 Dose: 5,000 units Hydralazine HCl (Apresoline Inj) 10 mg IV.PUSH Q4H PRN PRN Reason: SBP >160 Last Admin: 12/12/17 03:18 Dose: 10 mg Hydralazine HCl (Apresoline) 25 mg PO TID [facility] Last Admin: 01/16/18 09:38 Dose: 25 mg Albumin Human (Flexbumin 25% Inj) 100 mls @ 60 mls/hr IV.SIG WITH DIALYSIS PRN PRN Reason: hypotension / volume replace Last Infusion: 12/28/17 00:16 Dose: Infused Sodium Chloride (Ns Inj) 1,000 mls @ 0 mls/hr OTHER .Q0M PRN PRN Reason: for prime and rinse back Last Infusion: 12/04/17 08:24 Dose: Infused Sodium Chloride (Ns Inj) 1,000 mls @ 200 mls/hr OTHER .Q5H PRN PRN Reason: for dialyzer flush PRN Sodium Chloride (Ns Inj) 1,000 mls @ 0 mls/hr IV.CONT .Q0M PRN PRN Reason: hypotension / volume replace L-Arginine/L-Glutamine/Calcium HMB (Avelino Packet) 1 packet G-TUBE BID [facility] Last Admin: 01/16/18 09:41 Dose: 1 packet Lactobacillus Acidophilus (Lactinex Pkt) 1 gm PO TID [facility] Last Admin: 01/16/18 09:40 Dose: 1 gm Mannitol (Mannitol Inj) 12.5 gm IV.PUSH UNSCH PRN PRN Reason: hypotension / volume replace Metoprolol Tartrate (Lopressor) 25 mg PO Q6H [facility] Last Admin: 01/16/18 09:39 Dose: Not Given Mirtazapine (Remeron) 15 mg PO HS [facility] Nitroglycerin (Nitrostat Sl) 0.4 mg SL Q5M PRN PRN Reason: CHEST PAIN Ondansetron HCl (Zofran Inj) 4 mg IV.PUSH Q6H PRN PRN Reason: NAUSEA OR VOMITING Ondansetron HCl (Zofran Inj) 4 mg IV.PUSH UNSCH X1 PRN PRN Reason: WITH DIALYSIS Padimate O (Chapstick) 1 applicatio TOPICAL UNSCH PRN PRN Reason: DRY LIPS Last Admin: 12/02/17 13:45 Dose: 1 applicatio Pantoprazole Sodium (Protonix) 40 mg PO DAILY [facility] Last Admin: 01/16/18 09:39 Dose: 40 mg Silver Sulfadiazine (Silvadene 1% Cream (50 Gm)) 1 applicatio TOPICAL BID [facility] Last Admin: 01/16/18 09:42 Dose: 1 applicatio Sodium Chloride (Ns Flush) 2 ml IV.FLUSH BID [facility] Last Admin: 01/16/18 09:40 Dose: 2 ml Sodium Chloride (Ns Flush) 2 ml IV.FLUSH PRN PRN PRN Reason: FLUSH AFTER USING IV ACCESS Last Admin: 01/09/18 09:33 Dose: 2 ml Sodium Chloride (Ns Flush) 5 ml IV.FLUSH UNSCH PRN PRN Reason: flush each lumen during HD Allergies Allergy/AdvReac Type Severity Reaction Status Date / Time No Known Allergies Allergy Verified 11/22/17 02:38 Home Medications Medication Instructions Recorded Confirmed Type No Known Home Medications 01/08/18 01/08/18 History Exam Vital signs: Vital Signs 01/15/18 12:00 01/15/18 16:00 01/15/18 20:00 Temperature 97.0 F L 97.5 F L 97.3 F L Pulse Rate 112 H 81 90 Respiratory Rate 18 17 16 Blood Pressure 119/68 111/61 112/58 L Pulse Oximetry 98 99 100 01/16/18 00:00 01/16/18 04:00 01/16/18 08:00 Temperature 97.9 F 99.3 F 98.2 F Pulse Rate 91 H 83 89 Respiratory Rate 18 18 16 Blood Pressure 107/56 L 108/52 L 120/78 Pulse Oximetry 96 98 99 Intake & Output 01/15/18 01/16/18 01/16/18 18:59 06:59 18:59 Intake Total 1080 / 1080 Balance 1080 / 1080 Weight 65.1 kg Intake: Oral 1080 / 1080 Other: # Voids 6 3 Date of Last Bowel Movement 01/14/18 # Bowel Movements 0 Narrative: No tremors, no EPS, no catatonia, no withdrawal - Constitutional mild distress - Routine HEENT Exam Head: Present: normocephalic, atraumatic Eye: Present: EOMI, PERRL ENT: Present: mucous membranes moist Mental Status Examination Appearance: Appropriate Consciousness: Alert Orientation: x4 Motor Activity: Normal gait Speech: Unremarkable Language: Adequate Fund of Knowledge: Adequate Attention and Concentration: Adequate Memory: Unremarkable Mood: Sad Affect: Sad Thought Process & Associations: Intact Thought Content: Appropriate Hallucination Type: None Delusion Type: None Suicidal Ideation: No Suicidal Plan: No Suicidal Intention: No Homicidal Ideation: No Homicidal Plan: No Homicidal Intention: No Insight: Fair Judgment: Impulsive Assessment and Plan - Assessment (1) Acute adjustment disorder with depressed mood Code(s): F43.21 - Adjustment disorder with depressed mood Status: Acute - Plan Plan: On my psychiatric evaluation today the patient found cooperative, but distant, with prominent psychomotor retardation, flat affect, a little bit disengage. However he reports feeling better today. The patient is fully oriented x3. No attention deficit, no fluctuation of consciousness present. He does report episodic sense of hopelessness, helplessness, worthlessness, difficulty sleeping at night, intrusive thoughts, poor appetite and energy, but denies suicidal ideation. Patient reports that he wants to get better and go back home. Reports that he is symptoms of depression are morbidly related with left of hospitalization and lack of expected improvement. Patient does not meet criteria for involuntary psychiatric admission. I will start Remeron 15 mg at bedtime to help with sleep, mood, anxiety, appetite and weight gain. Support, motivational psychoeducation provided. We will follow-up Justification for Continued Inpatient Stay: No admission indicated
[2018-01-16] MEDS: Collagenase Oint 30 GM Tube TOPICAL SCH (11:15)
--- NOTE | 2018-01-16 18:22 | P.DIET ---
Nutritional Evaluation Type of nutrition evaluation: follow-up Nutrition consult regarding: Tube Feeding (TF'ing discontinued), TPN/PPN (TPN D/ C'ed) Nutrition screening: [facility] Screening comments[place] 12/25 [facility] [place] for post gastrectomy diet 12/31 TF causing diarrhea? 01/02 [facility] [place] for Calorie Counting Subjective Subjective Comments: Calorie Count to be restarted 01/16/18 through 01/19/18-Discussed w/pt and w/RN Cierra. RN Cierra reports pt eats throughout the day. Brought forward from previous note 01/14/18: Pt is discharged focused when visited. Pt inquiring as to when he will be able to have tomato and lettuce for sandwiches. Pt reports the frequency of BM when he eats a meal is less frequent. Unopened bottle of Ensure Enlive on bedside table. Brought forward from previous note 01/07/18: Pt says he has mixed the Avelino packet into liquid and it was not difficult for him; adds that he is "okay" w/ mixing and drinking the Avelino BID for two weeks(end date 01/21/18). Pt receptive to receiving Ensure Enlive and Ensure pudding w/meals. Encouraged pt to drink fluids between meals vs w/meals-pt says he understands. Pt says he feels like he has an improved appetite since the TF'ing is no longer running. Food preferences taken during this visit. Pt says his usual wt, prior to this hospital admission, is "around 200-lb" Objective - Diagnosis Gastroenteritis - Objective % IBW: 92 (IBW = 190-lb) Body Weight Used for Calculations: Actual (79.4 admission wt) Energy Needs - Lower Range (kCal/kg): 28 Energy Needs - Upper Range (kCal/kg): 32 Lower Limit kCal/kg (kCals): 2,223 Upper Limit kCal/kg (kCals): 2,541 Lower Limit Protein Factor (Grams per Kg): 1.2 Upper Limit Protein Factor (Grams per Kg): 1.5 Lower Protein Needs (Protein): 95 Upper Protein Needs (Protein): 119 Dietitian Reviewed in Medical Record: Current diet, Curent medications, Intake & Output, Labs, Medical history, Wound/DTI Diet Order: [facility] Soft Oral Diet Intake Amount: Fair 50-75% Speech Therapy Recommendations: Yes (01/01/18 [facility] Soft Thin Liquids, TF'ing as primary) Wound Care Note: 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/25/17 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; Left buttock Pressure Injury Stage III Objective Comments: see recent extensive hx in H&P including Anterior Gastric Perforation w/Tension Pneumoperitoneum s/p subtotal gastrectomy Labs inlcude: Creatinine 1.33, estGFR 70 Meds include: Remeron, Questran, Catapres, Haldol, Avelino, Metoprolol, Zofran, Protonix, Lactinex LBM 01/14(?) Feeding - Current PO Supplement Current Supplement: Ensure Enlive Current Frequency of Supplement: Daily Current kCals Provided by Supplement: 350 Current Protein Provided by Supplement: 20 Supplement Comments: Avelino 1-packet BID Assessment Assessment: MDC for Calorie Counting. Plan to restart Calorie Count 01/17/18 through w/Nutrition Recs to follow 01/20/18. Calorie Count discussed w/Pt and RN Cierra. Noted pt has been started on Remeron. Brought forward from previous noted 01/14/18: Pt continues at high nutrition risk r/t extended hospital stay and clinical status, significant wt loss w/low BMI 17.1 and increased needs for wound healing; pt is s/p subtotal gastrectomy w /risk for dumping syndrome. Pt previously receiving TF'ing w/Vital 1.5 @ goal rate 65ml/hr. Feeding tube discontinued d/t pt pulled the j-tube. Repeat Calorie Count w/Inadequate po intake. Pt averaged 60% for protein needs and 69 % for kcal needs. Significant wt loss >30kg since admission 11/29/17. Rec supplemental nocturnal TF'ing w/Vital 1.5 @ 70ml/hr 8p-6a to offer 1050 kcal, 47g protein and 535ml free water. Pt is averaging one Ensure Enlive QD. Encouraged pt to use the Avelino 1-packet BID to aid in wound healing to end 01/21. Continue to [employer]. Rec ST [employer] for diet texture upgrade. Brought forward from previous note 12/26/17: A Post gastrectomy diet usually consists of 6 small meals per day, only 4 ozs of fluid at meals, other fluids 1 hour before or after meals. Food needs to be well chewed. Of note: the hospital does not provide an option for 6 small meals a day. Nursing would need to order snacks and take them off the tray, put them in the refrigerator OR Ensure can be given between meals, but again nursing needs to control that. Recommendations: 1. MDC for Calorie Counting 2. Restart Calorie Count 01/17/18 through 01/19/18 w/Nutrition Recs to follow 3. Noted pt has been started on [facility] Dietitian to Monitor: Lab values, Renal labs, Supplement acceptance, Intake & Output, Diet tolerance, Weight change, PO Intake, Wound/skin status, Swallow recommendations, Medical course
[2018-01-16] MEDS: Mirtazapine 15 MG Tablet PO SCH (20:17)
[2018-01-17] MEDS: Metoprolol Tartrate 25 MG Tablet PO SCH ×4 (03:05→21:04)
[2018-01-17] MEDS: hydrALAZINE 50 MG Tablet PO SCH ×3 (09:55→17:56)
[2018-01-17] MEDS: Ferrous Sulfate 325 MG Tablet PO SCH (09:55)
[2018-01-17] MEDS: Cholestyramine Light 4 GM Packet PO SCH ×2 (09:55→21:04)
--- NOTE | 2018-01-17 11:56 | P.PNIM ---
Subjective Interval history: in no acute distress. no new complaints. calorie count in process. Physical Exam Vital signs: Last Vital Signs Temp 99.1 F 01/17/18 04:00 Pulse 98 H 01/17/18 04:00 Resp 20 01/17/18 04:00 BP 125/78 01/17/18 04:00 Pulse Ox 98 01/17/18 04:00 Intake & Output 01/15/18 01/16/18 01/17/18 01/18/18 06:59 06:59 06:59 06:59 Intake Total 840 / 840 1080 / 1080 2059 Output Total 300 / 300 Balance 540 / 540 1079 / 1080 2059 Weight 65.6 kg 65.1 kg 63.1 kg Constitutional no acute distress and thin Routine Respiratory Exam Present CTA bilaterally Routine Cardiovascular Exam Present RRR Routine Abdominal Exam Present soft Routine Extremities Exam Comments: no pedal edema. Routine Neurological Exam Present alert and oriented X3 Urinary Catheter Management Indwelling Temp Sensing Catheter: Cath placed during this visit: no Results Labs CBC & Chem 7: 01/14/18 06:59 01/14/18 06:59 Procedures Procedures: Jejunostomy tube placement Assessment and Plan (1) Acute adjustment disorder with depressed mood: Code(s): F43.21 - Adjustment disorder with depressed mood Status: Acute Plan ACUTE METABOLIC ENCEPHALOPATHY w ACUTE DELIRIUM due to critical illness: Resolved. ACUTE RESPIRATORY FAILURE /TENSION PNEUMOTHORAX left pigtail chest tube removed 12/18 Extubated 12/22 continue Bronchodilator, Mucolytic and Incentive spirometry. now stable on RA CARDIAC ARREST 11/23/17 PEA arrest due to shock secondary to acute gastric perforation and tension pneumoperitoneum -Currently hemodynamically stable. ANTERIOR GASTRIC PERFORATION with TENSION PNEUMOPERITONEUM/ S/P SUBTOTAL GASTRECTOMY w feeding jejunostomy - Status post Exploratory laparotomy repair of perforation with stapler and Second look 11/25 found gastric necrosis requiring subtotal gastrectomy and placement of AB Thera VAC dressing, transferred to [facility] 11/28 reexploration with Dinh-en-y esophagojejunostomy, feeding jejunostomy placement diagnostic EGD primary fascial closure. - cont wound care, diet as tolerated, tube feeds on hold patient pulled J tube. Dietitian recommends to liberalize diet to regular mechanical soft with Ensure - calorie count completed 01/13; still with low calorie intake; recommended tube feeding over night- however the patient with no access; this was previously d/w the surgery ; asked parts counterman to change the diet to more frequent small portions throughout the day and repeat the calorie count; this is in process. ISCHEMIC HEPATOPATHY resolving GIB with ANEMIA OF ACUTE BLOOD LOSS EGD, enteroscopy 12/12/2017 unremarkable, colonoscopy 12/13/2017 unremarkable. Bleeding scan did not show any particular site of bleeding Had right upper quadrant ultrasound on 11/27/17 that demonstrated contracted gallbladder with sludge. No evidence of cholecystitis. Echogenicity in right liver related to focal fatty change or altered perfusion, patent vascularity. Appreciate general surgery following. Continue mechanical soft, thickened liquid diet. J-tube recently pulled out by patient Symptomatic ANEMIA requiring transfusion/THROMBOCYTOPENIA resolved. Iron deficient no active bleeding but transfused with packed RBC . ACUTE RENAL FAILURE secondary to ISCHEMIC ATN requiring dialysis HD started 11/26 but then discontinued per nephrology since patient's renal function continues to improve. Nephrology has signed off KLEBSIELLA ESBL ABD WOUND INFECTION -treated with Invanz CANDIDEMIA following gastric perforation and gastric ischemia. Blood culture at [facility] in [place] on 11/26 had Starr glabrata. Repeat blood culture is negative. evaluated by ID. S/p micafungin for candidemia. BILATERAL UE DVT U/s 11/26 BUE - thrombus R axillary, brachial and basilic veins and thrombus in left axillary and left brachial veins. Hematology consult was obtained at [facility] and patient was treated with heparin. Continue subcu heparin here. Repeat US resolved DVT . PRESSURE ULCER OF SACRUM/COCCYX and BUTTOCKS Wound care nursing following. Continue with dressing change and frequent turning. MUSCLE WEAKNESS AND MYOPATHY OF CRITICAL ILLNESS - extremely weak but improving slowly, cont PT,will require placement SEVERE PROTEIN CALORIE MALNUTRITION Dietitian recommends to liberalize diet to regular mechanical soft - calorie count completed on 01/13; parts counterman following; recommended tube feeding over night. psych consulted for possible depression. HTN - hydralazine and metoprolol Discharge Planning: home- patient has failed the calorie count; repeated calorie count in process; possible dc home over the weekend if calorie count outcome is acceptable. Progress Note: Quality VTE Deep Vein Thrombosis/Pulmonary Embolism Present on Admission: No
[2018-01-17] MEDS: Collagenase Oint 30 GM Tube TOPICAL SCH (14:18)
[2018-01-17] MEDS: Mirtazapine 15 MG Tablet PO SCH (21:04)
[2018-01-18] MEDS: Metoprolol Tartrate 25 MG Tablet PO SCH ×4 (02:44→20:55)
[2018-01-18] MEDS: Ferrous Sulfate 325 MG Tablet PO SCH (10:20)
[2018-01-18] MEDS: Cholestyramine Light 4 GM Packet PO SCH ×2 (10:20→20:55)
[2018-01-18] MEDS: hydrALAZINE 50 MG Tablet PO SCH ×3 (10:22→18:34)
--- NOTE | 2018-01-18 11:12 | P.PN ---
Subjective Interval history: Cachectic male appears to not acute distress Calorie counting No events overnight. Physical Exam Vital signs: Vital Signs 01/17/18 12:00 01/17/18 16:00 01/17/18 20:00 Temperature 97.8 F 98.9 F 98.6 F Pulse Rate 86 80 74 Respiratory Rate 18 18 16 Blood Pressure 129/81 127/78 109/68 Pulse Oximetry 100 99 100 01/18/18 00:00 01/18/18 08:00 Temperature 98.8 F 98.6 F Pulse Rate 81 77 Respiratory Rate 15 18 Blood Pressure 112/69 120/76 Pulse Oximetry 98 99 Intake & Output 01/17/18 01/18/18 01/18/18 18:59 06:59 18:59 Intake Total 1600 / 1600 480 / 480 Output Total 400 / 400 Balance 1200 / 1200 480 / 480 Weight 64 kg Intake: Oral 1600 / 1600 480 / 480 Output: Urine 400 / 400 Other: # Voids 2 Date of Last Bowel Movement 01/16/18 01/16/18 Narrative: GENERAL: 47 yo male, cachectic CARDIOVASCULAR: Regular rate and rhythm without murmurs, gallops, or rubs. RESPIRATORY: Breath sounds equal bilaterally. No accessory muscle use. GASTROINTESTINAL: Abdomen soft, non-tender, nondistended. MUSCULOSKELETAL: No cyanosis, or edema. - Urinary Catheter Management Indwelling Temp Sensing Catheter Cath placed during this visit: no Results - Labs CBC & Chem 7: 01/14/18 06:59 01/14/18 06:59 - Procedures Jejunostomy tube placement Assessment and Plan - Assessment (1) Acute adjustment disorder with depressed mood Code(s): F43.21 - Adjustment disorder with depressed mood Status: Acute - Plan ACUTE METABOLIC ENCEPHALOPATHY w ACUTE DELIRIUM due to critical illness: Resolved. ACUTE RESPIRATORY FAILURE /TENSION PNEUMOTHORAX left pigtail chest tube removed 12/18 Extubated 12/22 continue Bronchodilator, Mucolytic and Incentive spirometry. now stable on RA CARDIAC ARREST 11/23/17 PEA arrest due to shock secondary to acute gastric perforation and tension pneumoperitoneum -Currently hemodynamically stable. ANTERIOR GASTRIC PERFORATION with TENSION PNEUMOPERITONEUM/ S/P SUBTOTAL GASTRECTOMY w feeding jejunostomy - Status post Exploratory laparotomy repair of perforation with stapler and Second look 11/25 found gastric necrosis requiring subtotal gastrectomy and placement of AB Thera VAC dressing, transferred to [facility] 11/28 reexploration with Dinh-en-y esophagojejunostomy, feeding jejunostomy placement diagnostic EGD primary fascial closure. - cont wound care, diet as tolerated, tube feeds on hold patient pulled J tube. Dietitian recommends to liberalize diet to regular mechanical soft with Ensure - calorie count completed 01/13; still with low calorie intake; recommended tube feeding over night- however the patient with no access; this was previously d/w the surgery ; asked rib cutter to change the diet to more frequent small portions throughout the day and repeat the calorie count; this is in process. ISCHEMIC HEPATOPATHY resolving GIB with ANEMIA OF ACUTE BLOOD LOSS EGD, enteroscopy 12/12/2017 unremarkable, colonoscopy 12/13/2017 unremarkable. Bleeding scan did not show any particular site of bleeding Had right upper quadrant ultrasound on 11/27/17 that demonstrated contracted gallbladder with sludge. No evidence of cholecystitis. Echogenicity in right liver related to focal fatty change or altered perfusion, patent vascularity. Appreciate general surgery following. Continue mechanical soft, thickened liquid diet. J-tube recently pulled out by patient Symptomatic ANEMIA requiring transfusion/THROMBOCYTOPENIA resolved. Iron deficient no active bleeding but transfused with packed RBC . ACUTE RENAL FAILURE secondary to ISCHEMIC ATN requiring dialysis HD started 11/26 but then discontinued per nephrology since patient's renal function continues to improve. Nephrology has signed off KLEBSIELLA ESBL ABD WOUND INFECTION -treated with Invanz CANDIDEMIA following gastric perforation and gastric ischemia. Blood culture at [facility] in [place] on 11/26 had Starr glabrata. Repeat blood culture is negative. evaluated by ID. S/p micafungin for candidemia. BILATERAL UE DVT U/s 11/26 BUE - thrombus R axillary, brachial and basilic veins and thrombus in left axillary and left brachial veins. Hematology consult was obtained at [facility] and patient was treated with heparin. Continue subcu heparin here. Repeat US resolved DVT . PRESSURE ULCER OF SACRUM/COCCYX and BUTTOCKS Wound care nursing following. Continue with dressing change and frequent turning. MUSCLE WEAKNESS AND MYOPATHY OF CRITICAL ILLNESS - extremely weak but improving slowly, cont PT,will require placement SEVERE PROTEIN CALORIE MALNUTRITION Dietitian recommends to liberalize diet to regular mechanical soft - calorie count completed on 01/13; rib cutter following; recommended tube feeding over night. psych consulted for possible depression. HTN - hydralazine and metoprolol DC plan undergoing calorie counting
[2018-01-18] MEDS: Collagenase Oint 30 GM Tube TOPICAL SCH (18:33)
[2018-01-18] MEDS: Mirtazapine 15 MG Tablet PO SCH (20:54)
[2018-01-19] MEDS: Metoprolol Tartrate 25 MG Tablet PO SCH ×4 (02:37→21:02)
[2018-01-19] MEDS: Cholestyramine Light 4 GM Packet PO SCH ×2 (09:58→21:03)
[2018-01-19] MEDS: Ferrous Sulfate 325 MG Tablet PO SCH (09:58)
[2018-01-19] MEDS: hydrALAZINE 50 MG Tablet PO SCH ×3 (10:22→18:29)
--- NOTE | 2018-01-19 14:48 | P.PN ---
Subjective Interval history: In bed appears chronically ill. Not eating. Has nausea, no vomiting. No chest pain or sob. Physical Exam Vital signs: Vital Signs 01/18/18 16:00 01/18/18 20:00 01/19/18 00:00 Temperature 97.7 F 97.3 F L 98.8 F Pulse Rate 73 78 59 L Respiratory Rate 18 18 16 Blood Pressure 121/68 142/89 H 121/76 Pulse Oximetry 94 L 100 99 01/19/18 08:00 Temperature 98.5 F Pulse Rate 80 Respiratory Rate 18 Blood Pressure 124/80 Pulse Oximetry 98 Intake & Output 01/18/18 01/19/18 01/19/18 18:59 06:59 18:59 Intake Total 700 / 700 Output Total 1000 / 1000 Balance -300 / -300 Weight 55.2 kg Intake: Oral 700 / 700 Output: Urine 1000 / 1000 Other: # Voids 2 Date of Last Bowel Movement 01/16/18 # Bowel Movements 2 1 Narrative: GENERAL: 47 yo male, cachectic, very skinny. Bitemporal sunken. CARDIOVASCULAR: Regular rate and rhythm without murmurs, gallops, or rubs. RESPIRATORY: Breath sounds equal bilaterally. No accessory muscle use. GASTROINTESTINAL: Abdomen soft, non-tender, nondistended. MUSCULOSKELETAL: No cyanosis, or edema. Muscle waisting - Urinary Catheter Management Indwelling Temp Sensing Catheter Cath placed during this visit: no Results - Labs CBC & Chem 7: 01/14/18 06:59 01/14/18 06:59 Microbiology 12/07/17 10:10 Fluid - Pleural fluid Acid Fast Bacilli Smear - Final No acid fast bacilli seen 12/07/17 10:10 Fluid - Pleural fluid Mycobacterial Culture - Final No growth in 6 weeks - Procedures Jejunostomy tube placement Assessment and Plan - Assessment (1) Acute adjustment disorder with depressed mood Code(s): F43.21 - Adjustment disorder with depressed mood Status: Acute - Plan ACUTE METABOLIC ENCEPHALOPATHY w ACUTE DELIRIUM due to critical illness: Resolved. ACUTE RESPIRATORY FAILURE /TENSION PNEUMOTHORAX left pigtail chest tube removed 12/18 Extubated 12/22 continue Bronchodilator, Mucolytic and Incentive spirometry. now stable on RA CARDIAC ARREST 11/23/17 PEA arrest due to shock secondary to acute gastric perforation and tension pneumoperitoneum -Currently hemodynamically stable. ANTERIOR GASTRIC PERFORATION with TENSION PNEUMOPERITONEUM/ S/P SUBTOTAL GASTRECTOMY w feeding jejunostomy - Status post Exploratory laparotomy repair of perforation with stapler and Second look 11/25 found gastric necrosis requiring subtotal gastrectomy and placement of AB Thera VAC dressing, transferred to [facility] 11/28 reexploration with Dinh-en-y esophagojejunostomy, feeding jejunostomy placement diagnostic EGD primary fascial closure. - cont wound care, diet as tolerated, tube feeds on hold patient pulled J tube. Dietitian recommends to liberalize diet to regular mechanical soft with Ensure - calorie count completed 01/13; still with low calorie intake; recommended tube feeding over night- however the patient with no access; this was previously d/w the surgery ; asked spanish professor to change the diet to more frequent small portions throughout the day and repeat the calorie count; this is in process. ISCHEMIC HEPATOPATHY resolving GIB with ANEMIA OF ACUTE BLOOD LOSS EGD, enteroscopy 12/12/2017 unremarkable, colonoscopy 12/13/2017 unremarkable. Bleeding scan did not show any particular site of bleeding Had right upper quadrant ultrasound on 11/27/17 that demonstrated contracted gallbladder with sludge. No evidence of cholecystitis. Echogenicity in right liver related to focal fatty change or altered perfusion, patent vascularity. Appreciate general surgery following. Continue mechanical soft, thickened liquid diet. J-tube recently pulled out by patient Symptomatic ANEMIA requiring transfusion/THROMBOCYTOPENIA resolved. Iron deficient no active bleeding but transfused with packed RBC . ACUTE RENAL FAILURE secondary to ISCHEMIC ATN requiring dialysis HD started 11/26 but then discontinued per nephrology since patient's renal function continues to improve. Nephrology has signed off KLEBSIELLA ESBL ABD WOUND INFECTION -treated with Invanz CANDIDEMIA following gastric perforation and gastric ischemia. Blood culture at [facility] in [place] on 11/26 had Starr glabrata. Repeat blood culture is negative. evaluated by ID. S/p micafungin for candidemia. BILATERAL UE DVT U/s 11/26 BUE - thrombus R axillary, brachial and basilic veins and thrombus in left axillary and left brachial veins. Hematology consult was obtained at [facility] and patient was treated with heparin. Continue subcu heparin here. Repeat US resolved DVT . PRESSURE ULCER OF SACRUM/COCCYX and BUTTOCKS Wound care nursing following. Continue with dressing change and frequent turning. MUSCLE WEAKNESS AND MYOPATHY OF CRITICAL ILLNESS - extremely weak but improving slowly, cont PT,will require placement SEVERE PROTEIN CALORIE MALNUTRITION Dietitian recommends to liberalize diet to regular mechanical soft - calorie count completed on 01/13; spanish professor following; recommended tube feeding over night. psych consulted for possible depression. HTN - hydralazine and metoprolol DC plan undergoing calorie counting
[2018-01-19] MEDS: Collagenase Oint 30 GM Tube TOPICAL SCH (14:50)
[2018-01-19] MEDS: Mirtazapine 15 MG Tablet PO SCH (21:05)
[2018-01-20] MEDS: Metoprolol Tartrate 25 MG Tablet PO SCH ×4 (02:59→20:15)
--- NOTE | 2018-01-20 09:29 | P.DIET ---
Nutritional Evaluation Type of nutrition evaluation: follow-up Nutrition consult regarding: Tube Feeding (TF'ing discontinued), TPN/PPN (TPN D/ C'ed) Nutrition screening: [facility] Screening comments: 01/16/18 [facility] Calorie Counting 12/25 [facility] for post gastrectomy diet 12/31 TF causing diarrhea? 01/02 [facility] for Calorie Counting Subjective Subjective Comments: Pt sleeping when Calorie count collected. Per SVETLANA Linda, pt doesnt like the food here and prefers food that his family brings in from outside. Included in today's Calorie count results, pt had high calorie protein drinks brought in from outside. Brought forward from previous note 01/14/18: Pt is discharged focused when visited. Pt inquiring as to when he will be able to have tomato and lettuce for sandwiches. Pt reports the frequency of BM when he eats a meal is less frequent. Unopened bottle of Ensure Enlive on bedside table. Brought forward from previous note 01/07/18: Pt says he has mixed the Avelino packet into liquid and it was not difficult for him; adds that he is "okay" w/ mixing and drinking the Avelino BID for two weeks(end date 01/21/18). Pt receptive to receiving Ensure Enlive and Ensure pudding w/meals. Encouraged pt to drink fluids between meals vs w/meals-pt says he understands. Pt says he feels like he has an improved appetite since the TF'ing is no longer running. Food preferences taken during this visit. Pt says his usual wt, prior to this hospital admission, is "around 200-lb" Objective - Diagnosis Gastroenteritis - Objective % IBW: 92 (IBW = 190-lb) Body Weight Used for Calculations: Actual (79.4 admission wt) Energy Needs - Lower Range (kCal/kg): 28 Energy Needs - Upper Range (kCal/kg): 32 Lower Limit kCal/kg (kCals): 2,223 Upper Limit kCal/kg (kCals): 2,541 Lower Limit Protein Factor (Grams per Kg): 1.2 Upper Limit Protein Factor (Grams per Kg): 1.5 Lower Protein Needs (Protein): 95 Upper Protein Needs (Protein): 119 Dietitian Reviewed in Medical Record: Current diet, Curent medications, Intake & Output, Labs, Medical history, Wound/DTI Diet Order: [facility] Soft Oral Diet Intake Amount: Fair 50-75% Speech Therapy Recommendations: Yes (01/01/18 [facility] Soft Thin Liquids, TF'ing as primary) Wound Care Note: WOCN 12/25/17 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; Left buttock Pressure Injury Stage III Objective Comments: see recent extensive hx in H&P including Anterior Gastric Perforation w/Tension Pneumoperitoneum s/p subtotal gastrectomy Labs inlcude: Creatinine 1.33, estGFR 70 Meds include: Remeron, Questran, Catapres, Haldol, Avelino, Metoprolol, Zofran, Protonix, Lactinex LBM 01/16 Feeding - Current Tube Feeding Tube Feeding Rate: 65 (mls/hr) - Current PO Supplement Current Supplement: Ensure Enlive Current Frequency of Supplement: Daily Current kCals Provided by Supplement: 350 Current Protein Provided by Supplement: 20 Supplement Comments: Avelino 1-packet BID - kCal Count Day 1 kCal Intake: 2,160 Day 1 Protein Intake: 122 Day 2 kCal Intake: 1,750 Day 2 Protein Intake: 35 Day 3 kCal Intake: 670 Day 3 Protein Intake: 35 Assessment Assessment: Repeat Calorie Count 01/17/18 through 01/19/18 w/Adequate po intake 70% for kcal needs and 65% for protein needs. Pt averaged greater than 50% of assessed needs. Please note: pt po intake for Day#1 and Day#2 w/greater than 80% of his assessed needs; po intake declined sharply on Day#3(?). Pt po intake improved overall d/t increased foods/drinks brought in from outside by pt's family. Pt does not care for the foods available to him here. Rec diet be liberalized to Regular to offer increased menu items. Pt w/significant wt loss of 37kg since admission. Continue Ensure Enlive QD. Plan to Continue Avelino Packet BID d/t pt is using these daily for wound healing. Dietitian following. Brought forward from previous noted 01/14/18: Pt continues at high nutrition risk r/t extended hospital stay and clinical status, significant wt loss w/low BMI 17.1 and increased needs for wound healing; pt is s/p subtotal gastrectomy w /risk for dumping syndrome. Pt previously receiving TF'ing w/Vital 1.5 @ goal rate 65ml/hr. Feeding tube discontinued d/t pt pulled the j-tube. Repeat Calorie Count w/Inadequate po intake. Pt averaged 60% for protein needs and 69 % for kcal needs. Significant wt loss >30kg since admission 11/29/17. Rec supplemental nocturnal TF'ing w/Vital 1.5 @ 70ml/hr 8p-6a to offer 1050 kcal, 47g protein and 535ml free water. Pt is averaging one Ensure Enlive QD. Encouraged pt to use the Avelino 1-packet BID to aid in wound healing to end 01/21. Continue to [place] [employer]. Rec ST [employer] for diet texture upgrade. Brought forward from previous note 12/26/17: A Post gastrectomy diet usually consists of 6 small meals per day, only 4 ozs of fluid at meals, other fluids 1 hour before or after meals. Food needs to be well chewed. Of note: the hospital does not provide an option for 6 small meals a day. Nursing would need to order snacks and take them off the tray, put them in the refrigerator OR Ensure can be given between meals, but again nursing needs to control that. Recommendations: 1. Repeat Calorie Count 01/17/18 through 01/19/18 w/Adequate po intake 2. Please note: pt po intake for Day#1 and Day#2 w/greater than 80% of his assessed needs; po intake declined sharply on Day#3(?) 3. Encourage pt's family to bring foods/drinks in from outside for pt. 4. Rec diet be liberalized to Regular to offer increased menu items 5. Pt w/significant wt loss of 37kg since admission 6. Continue Ensure Enlive QD 7. Plan to Continue Avelino Packet BID d/t pt is using these daily for wound healing 8. Dietitian following Dietitian to Monitor: Lab values, Renal labs, Supplement acceptance, Intake & Output, Diet tolerance, Weight change, PO Intake, Wound/skin status, Medical course
[2018-01-20] MEDS: hydrALAZINE 50 MG Tablet PO SCH ×3 (09:36→18:32)
[2018-01-20] MEDS: Ferrous Sulfate 325 MG Tablet PO SCH (09:36)
[2018-01-20] MEDS: Cholestyramine Light 4 GM Packet PO SCH ×2 (09:36→20:16)
[2018-01-20] MEDS: Collagenase Oint 30 GM Tube TOPICAL SCH (10:27)
--- NOTE | 2018-01-20 10:50 | P.PN ---
Subjective Interval history: Patient feels improving. Since his able to eat better. She does not like the food. He will like to go home says he has very good family support. Still nauseated but no vomiting. No more diarrhea. No fever or chills. No abdominal pain. Able to ambulate with a walker. Physical Exam Vital signs: Vital Signs 01/19/18 12:00 01/19/18 16:00 01/19/18 20:00 Temperature 97.7 F 98.1 F 97.2 F L Pulse Rate 71 75 102 H Respiratory Rate 18 18 21 Blood Pressure 126/83 125/82 130/78 Pulse Oximetry 99 98 100 01/20/18 00:00 01/20/18 08:00 Temperature 98.2 F 98.4 F Pulse Rate 105 H 85 Respiratory Rate 20 16 Blood Pressure 123/78 125/76 Pulse Oximetry 97 98 Intake & Output 01/19/18 01/20/18 01/20/18 18:59 06:59 18:59 Intake Total 1080 / 1080 Balance 1080 / 1080 Weight 56.7 kg Intake: Oral 1080 / 1080 Other: # Voids 1 2 Date of Last Bowel Movement 01/16/18 # Bowel Movements 0 Narrative: GENERAL: 47 yo male, cachectic, very skinny. Bitemporal sunken. CARDIOVASCULAR: Regular rate and rhythm without murmurs, gallops, or rubs. RESPIRATORY: Breath sounds equal bilaterally. No accessory muscle use. GASTROINTESTINAL: Abdomen soft, non-tender, nondistended. MUSCULOSKELETAL: No cyanosis, or edema. Muscle waisting - Urinary Catheter Management Indwelling Temp Sensing Catheter Cath placed during this visit: no Results - Labs CBC & Chem 7: 01/20/18 12:48 01/20/18 12:48 - Procedures Jejunostomy tube placement Assessment and Plan - Assessment (1) Acute adjustment disorder with depressed mood Code(s): F43.21 - Adjustment disorder with depressed mood Status: Acute - Plan ACUTE METABOLIC ENCEPHALOPATHY w ACUTE DELIRIUM due to critical illness: Resolved. ACUTE RESPIRATORY FAILURE /TENSION PNEUMOTHORAX left pigtail chest tube removed 12/18 Extubated 12/22 continue Bronchodilator, Mucolytic and Incentive spirometry. now stable on RA CARDIAC ARREST 11/23/17 PEA arrest due to shock secondary to acute gastric perforation and tension pneumoperitoneum -Currently hemodynamically stable. ANTERIOR GASTRIC PERFORATION with TENSION PNEUMOPERITONEUM/ S/P SUBTOTAL GASTRECTOMY w feeding jejunostomy - Status post Exploratory laparotomy repair of perforation with stapler and Second look 11/25 found gastric necrosis requiring subtotal gastrectomy and placement of AB Thera VAC dressing, transferred to [facility] 11/28 reexploration with Dinh-en-y esophagojejunostomy, feeding jejunostomy placement diagnostic EGD primary fascial closure. - cont wound care, diet as tolerated, tube feeds on hold patient pulled J tube. Dietitian recommends to liberalize diet to regular mechanical soft with Ensure - calorie count completed 01/13; still with low calorie intake; recommended tube feeding over night- however the patient with no access; this was previously d/w the surgery ; asked business office assistant to change the diet to more frequent small portions throughout the day and repeat the calorie count; this is in process. ISCHEMIC HEPATOPATHY resolving GIB with ANEMIA OF ACUTE BLOOD LOSS EGD, enteroscopy 12/12/2017 unremarkable, colonoscopy 12/13/2017 unremarkable. Bleeding scan did not show any particular site of bleeding Had right upper quadrant ultrasound on 11/27/17 that demonstrated contracted gallbladder with sludge. No evidence of cholecystitis. Echogenicity in right liver related to focal fatty change or altered perfusion, patent vascularity. Appreciate general surgery following. Continue mechanical soft, thickened liquid diet. J-tube recently pulled out by patient Symptomatic ANEMIA requiring transfusion/THROMBOCYTOPENIA resolved. Iron deficient no active bleeding but transfused with packed RBC . ACUTE RENAL FAILURE secondary to ISCHEMIC ATN requiring dialysis HD started 11/26 but then discontinued per nephrology since patient's renal function continues to improve. Nephrology has signed off KLEBSIELLA ESBL ABD WOUND INFECTION -treated with Invanz CANDIDEMIA following gastric perforation and gastric ischemia. Blood culture at [facility] in [place] on 11/26 had Starr glabrata. Repeat blood culture is negative. evaluated by ID. S/p micafungin for candidemia. BILATERAL UE DVT U/s 11/26 BUE - thrombus R axillary, brachial and basilic veins and thrombus in left axillary and left brachial veins. Hematology consult was obtained at [facility] and patient was treated with heparin. Continue subcu heparin here. Repeat US resolved DVT . PRESSURE ULCER OF SACRUM/COCCYX and BUTTOCKS Wound care nursing following. Continue with dressing change and frequent turning. MUSCLE WEAKNESS AND MYOPATHY OF CRITICAL ILLNESS - extremely weak but improving slowly, cont PT,will require placement SEVERE PROTEIN CALORIE MALNUTRITION Dietitian recommends to liberalize diet to regular mechanical soft - calorie count completed on 01/13; business office assistant following; recommended tube feeding over night. psych consulted for possible depression. HTN - hydralazine and metoprolol DC plan undergoing calorie counting. Passed calorie counting. Possible discharge tomorrow.
[2018-01-20 13:49] LABS: Baso # (Auto) 0.2 th/mm3 (0.0-0.2); Baso % (Auto) 2.1 % (0.0-2.0); Eos # (Auto) 0.2 th/mm3 (0.0-0.4); Eos % (Auto) 2.9 % (0.0-4.0); Hematocrit 35.8 % (39.0-51.0); Lymph # (Auto) 0.7 th/mm3 (1.0-4.8); Lymph % (Auto) 9.8 % (9.0-44.0); Mean Corpuscular HGB Conc 33.5 % (32.0-36.0); Mean Corpuscular Hemoglobin 30.6 pg (27.0-34.0); Mean Corpuscular Volume 91.5 fL (80.0-100.0); Mean Platelet Volume 8.5 fL (7.0-11.0); Mono # (Auto) 0.5 th/mm3 (0.0-0.9); Mono % (Auto) 6.7 % (0.0-8.0); Neut # (Auto) 5.7 th/mm3 (1.8-7.7); Neut % (Auto) 78.5 % (16.0-70.0); Platelet Count 242 th/mm3 (150-450); Red Blood Count 3.92 mil/mm3 (4.50-5.90); White Blood Count 7.3 th/mm3 (4.0-11.0)
[2018-01-20 14:09] LABS: Calcium 8.4 mg/dL (8.5-10.1); Carbon Dioxide 26.5 meq/L (21.0-32.0); Magnesium 2.2 mg/dL (1.5-2.5); Phosphorus 2.8 mg/dL (2.5-4.9); Potassium 3.9 meq/L (3.5-5.1)
--- NOTE | 2018-01-20 14:59 | P.DS ---
Date of admission: 11/29/17 18:34 Primary care physician: UNKNOWN Brief History from admission: Patient was recently admitted to [facility] 11/22 and transferred to [facility] 11/26/17 after the following hospital course: 47-year-old -[place] male with reportedly no past medical or past surgical history who was admitted to hospitalist service 11/22/17 after presenting with abdominal pain, nausea, vomiting. He had CT abd/pelvis with massive gastric distention. NG tube had been placed. I was called to patient's bedside for CODE BLUE PEA arrest. CPR was ongoing and patient had massive abdominal distension and gastric regurgitant in the airway. He was emergently intubated and large amount of gastric secretions suctioned from oropharynx. After 21 minutes of CPR, ROSC was obtained and he was profoundly hypotensive. Continued aggressive fluid resuscitation and initiated dopamine. He was transferred to [facility] where CVL and R radial art line were placed and he was given 7 L of crystalloid and albumin. CXR demonstrated pneumoperitoneum and Dr. Martin Gudino was called emergently and he immediately contacted OR for emergent ex lap. He had intraabdominal hypertension with IAP of 40 mmHg, though fortunately was able to be ventilated adequately after rocuronium 50 mg IV and was transferred to OR. Dr. Martin Gudino took to the operating room early in the morning on 11/23 and discovered tension pneumoperitoneum, massive gastric distension, ischemia of the proximal 2/3 of the stomach and large gastric perforation with massive intraperitoneal contamination with food particles. Dr. Isaacs placed 2 NGT and decompressed 2 L of succus. Patient had initial improvement in vital signs in the immediate postoperative period, however he subsequently became hypotensive requiring upward titration of levophed and addition of vasopressin and stress dose hydrocortisone. He remains on levophed 10 mcg/min, neosynephrine 80 mcg/ min, vasopressin 0.04 units/min with overall vasopressor requirement weaning overnight. He is oliguric and creatinine is continuing to climb. He was given 2 L of crystalloid and albumin overnight. He does have significant fluid losses with combination of abdominal dressing and NGT output, so I will give an additional L of crystalloid now to monitor hourly response as he certainly does not appear volume overloaded. Nonetheless Flotrac numbers are suggesting adequate volume status and we may be seeing the consequence of ischemic ATN. May ultimately require HD, however not at this time. Abdomen remains open and plan is to re-explore 10/21. 11/25: Patient has acceptable hemodynamics by Flotrac but remains septic with requirements for phenylephrine 200 mics per minute, Levophed 8 mics per minute and vasopressin 0.04 units/min for blood pressure support. This has improved overnight and the Bhavesh-Synephrine support has been weaned off completely. Acid base balance is acceptable. ATN has developed which will undoubtedly require hemodialysis. Potassium level is normal. He is at increased risk for an anesthetic now but there is an urgent need to check for residual gastric necrosis. 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 Since the source control surgery, the maintenance of normal acid-base balance has been less difficult. Patient remains anuric with a rising creatinine above 6.0. He is clearly ahead on volume and will benefit from dialysis. A 2 lumen hemodialysis catheter was placed on 11/25 and has been packed with dilute heparin solution. The right internal jugular central line is been in place for 4 days and accessed multiple times. The femoral art line has been in for 4 days. Shock liver was apparent after the cardiac arrest reflecting a transaminitis, elevated bilirubin, and prolonged INR. The INR has remained normal following the transfusion of 4 units of fresh frozen plasma prior to surgery yesterday. A 10% dextrose infusion continues because of ongoing problems with hypoglycemia. Thrombocytopenia at 37,000 persists. He has remained on antibiotic coverage with Pipracil/tazobactam and fungal coverage with fluconazole, all adjusted for renal failure. Present vasopressor requirements include levophed at 7 mics per minute and vasopressin at 0.04 units/min. The chest x-ray is consistent with minor aspiration at the time of his preoperative cardiac arrest on the floor and cultures have subsequently grown Klebsiella, pansensitive. The operative note will clarify the extent of the surgery but in essence the distal esophagus is stapled off and marked with 2 Prolene sutures. The antrum of the stomach is oversewn. Most of the stomach has been removed. The abdomen is open with a VAC dressing applied. Subjective: 11/29 Bowel was in discontinuity following subtotal gastrectomy and patient was transferred to [facility]. On reexploration 11/28 he underwent Dinh-en-y esophagojejunostomy, feeding jejunostomy placement, diagnostic EGD, primary fascial closure. Wound vac was applied to abdomen (though currently wet to dry dressing in place upon arrival). He was reportedly found to have candidemia and was started on micafungin and has undergone ophtho eval. Lines including CVL, Vascath and art line have all been changed at [facility] (though not clear when). He remains on mechanical ventilation and has been weaned off pressors. He was found to have BUE DVTs and is on heparin drip. He is on TPN and has been started on trickle tube feeds with Nepro via jejunostomy. NGT is to [facility]. He underwent HD postoperatively on 11/28. He has now been transferred back to [facility] for ongoing management. I have updated his father and stepmother. Patient update on day of discharge: no events overnight Advised to do PT as OP. family is very supportive DS: Diagnosis - Discharge Diagnosis (1) Acute adjustment disorder with depressed mood Status: Acute (2) JACLYN (acute kidney injury) Status: Acute (3) Abdominal compartment syndrome Status: Acute (4) Acute bilateral deep vein thrombosis (DVT) of upper extremities Status: Acute (5) Acute hemodialysis patient Status: Acute (6) Acute respiratory failure Status: Acute (7) Anemia Status: Acute (8) Anemia Status: Acute DS: Medications - Discharge Medications Prescriptions: gqwlvyhl-quntbjqjc-tqbjkfu HMB [Avelino] 1 packet G-TUBE BID #60 ea cholestyramine-aspartame [Cholestyramine Light] 4 gm PO BID #60 each ferrous sulfate [FeroSul] 325 mg PO DAILY #60 tab hydralazine 25 mg PO TID #90 tab Lactobacillus acidoph-L.bulgar [Floranex] 1 gm PO TID #60 ea metoprolol tartrate 25 mg PO Q6H #120 tab mirtazapine 15 mg PO HS #30 tab ondansetron HCl [Zofran] 4 mg PO QID PRN #60 tab PRN Reason: nausea/vomiting pantoprazole 40 mg PO DAILY #30 tab DS: Summary Hospital Course: ACUTE METABOLIC ENCEPHALOPATHY w ACUTE DELIRIUM due to critical illness: Resolved. ACUTE RESPIRATORY FAILURE /TENSION PNEUMOTHORAX left pigtail chest tube removed 12/18 Extubated 12/22 continue Bronchodilator, Mucolytic and Incentive spirometry. now stable on RA CARDIAC ARREST 11/23/17 PEA arrest due to shock secondary to acute gastric perforation and tension pneumoperitoneum -Currently hemodynamically stable. ANTERIOR GASTRIC PERFORATION with TENSION PNEUMOPERITONEUM/ S/P SUBTOTAL GASTRECTOMY w feeding jejunostomy - Status post Exploratory laparotomy repair of perforation with stapler and Second look 11/25 found gastric necrosis requiring subtotal gastrectomy and placement of AB Thera VAC dressing, transferred to [facility] 11/28 reexploration with Dinh-en-y esophagojejunostomy, feeding jejunostomy placement diagnostic EGD primary fascial closure. - cont wound care, diet as tolerated, tube feeds on hold patient pulled J tube. Dietitian recommends to liberalize diet to regular mechanical soft with Ensure - calorie count completed 01/13; still with low calorie intake; recommended tube feeding over night- however the patient with no access; this was previously d/w the surgery ; asked bilingual school psychologist to change the diet to more frequent small portions throughout the day and repeat the calorie count; this is in process. ISCHEMIC HEPATOPATHY resolving GIB with ANEMIA OF ACUTE BLOOD LOSS EGD, enteroscopy 12/12/2017 unremarkable, colonoscopy 12/13/2017 unremarkable. Bleeding scan did not show any particular site of bleeding Had right upper quadrant ultrasound on 11/27/17 that demonstrated contracted gallbladder with sludge. No evidence of cholecystitis. Echogenicity in right liver related to focal fatty change or altered perfusion, patent vascularity. Appreciate general surgery following. Continue mechanical soft, thickened liquid diet. J-tube recently pulled out by patient Symptomatic ANEMIA requiring transfusion/THROMBOCYTOPENIA resolved. Iron deficient no active bleeding but transfused with packed RBC . ACUTE RENAL FAILURE secondary to ISCHEMIC ATN requiring dialysis HD started 11/26 but then discontinued per nephrology since patient's renal function continues to improve. Nephrology has signed off KLEBSIELLA ESBL ABD WOUND INFECTION -treated with Invanz CANDIDEMIA following gastric perforation and gastric ischemia. Blood culture at [facility] in [place] on 11/26 had Starr glabrata. Repeat blood culture is negative. evaluated by ID. S/p micafungin for candidemia. BILATERAL UE DVT U/s 11/26 BUE - thrombus R axillary, brachial and basilic veins and thrombus in left axillary and left brachial veins. Hematology consult was obtained at [facility] and patient was treated with heparin. Continue subcu heparin here. Repeat US resolved DVT . PRESSURE ULCER OF SACRUM/COCCYX and BUTTOCKS Wound care nursing following. Continue with dressing change and frequent turning. MUSCLE WEAKNESS AND MYOPATHY OF CRITICAL ILLNESS - extremely weak but improving slowly, cont PT,will require placement SEVERE PROTEIN CALORIE MALNUTRITION Dietitian recommends to liberalize diet to regular mechanical soft - calorie count completed on 01/13; bilingual school psychologist following; recommended tube feeding over night. psych consulted for possible depression. HTN - hydralazine and metoprolol DC plan undergoing calorie counting. Passed calorie counting. Patient improved. DC home in stable conditin to follow up as OP with PCP and consultants. Walker at DC. To follow up as OP with PT - Time Spent with Patient Total time spent providing and/or coordinating discharge services: Greater than 30 minutes - Quality: VTE Deep Vein Thrombosis/Pulmonary Embolism Present on Admission: No Exam Vital signs: Vital Signs 01/19/18 16:00 01/19/18 20:00 01/20/18 00:00 Temperature 98.1 F 97.2 F L 98.2 F Pulse Rate 75 102 H 105 H Respiratory Rate 18 21 20 Blood Pressure 125/82 130/78 123/78 Pulse Oximetry 98 100 97 01/20/18 08:00 01/20/18 12:00 Temperature 98.4 F 98.0 F Pulse Rate 85 86 Respiratory Rate 16 16 Blood Pressure 125/76 122/79 Pulse Oximetry 98 98 Intake & Output 01/19/18 01/20/18 01/20/18 18:59 06:59 18:59 Intake Total 1080 / 1080 Balance 1080 / 1080 Weight 56.7 kg Intake: Oral 1080 / 1080 Other: # Voids 1 2 Date of Last Bowel Movement 01/16/18 # Bowel Movements 0 Narrative: GENERAL: 47 yo male, cachectic, very skinny. Bitemporal sunken. CARDIOVASCULAR: Regular rate and rhythm without murmurs, gallops, or rubs. RESPIRATORY: Breath sounds equal bilaterally. No accessory muscle use. GASTROINTESTINAL: Abdomen soft, non-tender, nondistended. MUSCULOSKELETAL: No cyanosis, or edema. Muscle waisting Results Procedures completed during hospitalization: Jejunostomy tube placement Labs on day of discharge: Labs from last 24 hours 01/20/18 01/20/18 12:48 12:48 WBC 7.3 RBC 3.92 L Hgb 12.0 L Hct 35.8 L MCV 91.5 MCH 30.6 MCHC 33.5 RDW 17.0 Plt Count 242 MPV 8.5 Neut % (Auto) 78.5 H Lymph % (Auto) 9.8 Tyrrell % (Auto) 6.7 Eos % (Auto) 2.9 Baso % (Auto) 2.1 H Neut # (Auto) 5.7 Lymph # (Auto) 0.7 L Tyrrell # (Auto) 0.5 Eos # (Auto) 0.2 Baso # (Auto) 0.2 WBC Differential . Differential Comment Auto diff final Sodium 143 Potassium 3.9 Chloride 111 H Carbon Dioxide 26.5 Anion Gap 6 BUN 14 Creatinine 1.30 Estimated GFR 72 L Random Glucose 91 Calcium 8.4 L Phosphorus 2.8 Magnesium 2.2 Prealbumin 26 - Impressions ITS Impressions Head MRI 12/03/17 00:00 CONCLUSION: 1. Minimal nonspecific periventricular white matter changes. 2. No restricted diffusion to suggest an acute ischemic event. 3. No evidence for significant ischemic changes. Chest CT 12/04/17 00:06 CONCLUSION: 1. Left greater than right pleural effusions and basilar atelectasis. 2. No hemorrhage or hematoma demonstrated. 3. Distended and fluid-filled esophagus. No wall thickening. Patient is status post gastrectomy. Nasogastric tube is at the GE junction. 4. Body wall edema/anasarca. Abdomen X-Ray 12/08/17 00:00 CONCLUSION: 1. 2 left-sided abdominal catheters. 2. Nonspecific bowel gas pattern. Abdomen/Pelvis CT 12/13/17 00:00 CONCLUSION: 1. New proximal small bowel dilatation. No discrete transition point. Contrast is seen in the distal small bowel. Findings may represent ileus or partial obstruction. 2. Postsurgical findings with surgical drains in the left upper quadrant. Free fluid is seen in the left upper quadrant. Loculated rounded 5 cm area of fluid with thin peripheral enhancement also noted just inferior to the surgical drains. 3. Prominent left lower lobe pulmonary consolidation and small left pleural effusion. GI Bleed Scan Nuclear Medicine 12/15/17 00:00 CONCLUSION: No active bleeding demonstrated. Chest X-Ray 12/22/17 00:00 CONCLUSION: 1. Persistent patchy infiltrate within the left lung base. 2. Multiple tubes and lines are stable. The nasogastric tube remains with its tip in the distal esophagus. New right subclavian central line has its tip in superior vena cava. No pneumothorax is noted. Small Bowel X-Ray 12/22/17 00:00 CONCLUSION: No evidence of bowel obstruction. There is mild diffuse small bowel wall thickening identified within the jejunum and ileum consistent with possible edema given the appearance on initial imaging. Drain overlying the left lower quadrant. Jejunostomy Tube Placement 12/28/17 00:00 CONCLUSION: 1. Uncomplicated placement of a new 16 Albanian jejunostomy catheter through existing tract. Venous Doppler Study 01/05/18 12:27 CONCLUSION: 1. The study is negative for bilateral upper extremity deep venous thrombosis. Discharge Plan - Discharge Disposition Patient Disposition: Discharge Home - Discharge Condition Condition: Stable - Discharge Order Discharge Orders: Discharge Order (Routine); Ordered 01/21/18 Ordered By: Kaylynn Zendejas - Discharge Details Anticipated Discharge Date: 01/21/18 - Physicians Team Primary Care Provider: UNKNOWN, Attending Provider: Kaylynn Zendejas Other Providers: Edwin Dorsey MD ; Filipe Robertson MD ; Ben Millan MD ; Maddi King MD ; Ismael Desir MD - Rxs /Orders / Referrals /Forms Prescriptions: New jxvxguql-ntybjbdlv-demfvyv HMB [Avelino] 7-7-1.5 gram Powder In Packet 1 packet G-Tube BID Qty: 60 RF: 0 cholestyramine-aspartame [Cholestyramine Light] 4 gram Powder In Packet 4 gm PO BID Qty: 60 RF: 0 ferrous sulfate [FeroSul] 325 mg (65 mg iron) Tablet 325 mg PO DAILY Qty: 60 RF: 0 hydralazine 50 mg Tablet 25 mg PO TID Qty: 90 RF: 0 Lactobacillus acidoph-L.bulgar [Floranex] 100 million cell Granules In Packet 1 gm PO TID Qty: 60 RF: 0 metoprolol tartrate 25 mg Tablet 25 mg PO Q6H Qty: 120 RF: 0 mirtazapine 15 mg Tablet 15 mg PO HS Qty: 30 RF: 0 ondansetron HCl [Zofran] 4 mg Tablet 4 mg PO QID PRN (Reason: nausea/vomiting ) Qty: 60 RF: 0 pantoprazole 40 mg Tablet,Delayed Release (Dr/Ec) 40 mg PO DAILY Qty: 30 RF: 0 No Action No Known Home Medications Ambulatory Orders / Order Sets / DME: Walker With Front Wheels (1 each) (Routine) Location: Determined by Patient Ordered By: Kaylynn Zendejas Referrals: Maddi King MD [Physician] - See Instructions ( Please call the physician's office to book the appointment to be seen within [1-2 weeks ]. -Please call to schedule your follow up appointment) Edwin Dorsey MD [GENERAL SURGERY] - 01/31/18 1:40 pm ( Please call the physician's office to book the appointment to be seen within [1-2 weeks ]. Appointment scheduled with on January 31 at 1:40pm ) UNKNOWN, [Primary Care Provider] - See Instructions ( Please call the physician's office to book the appointment to be seen within [2-3 days ]. [employer] [phone] [place] [address] *[facility] offers same day APPT. Call. the morning you would like to be seen Office opens at 8:00am ) - Discharge Instructions Patient Printed Instructions: Metoprolol (By mouth), Ondansetron (By mouth), Mirtazapine (By mouth), Pantoprazole (By mouth), Colonoscopy (DC), Upper Endoscopy (DC)
[2018-01-20] MEDS: Mirtazapine 15 MG Tablet PO SCH (20:16)
[2018-01-21] MEDS: Metoprolol Tartrate 25 MG Tablet PO SCH ×2 (03:28→08:39)
[2018-01-21 07:36] LABS: Baso # (Auto) 0.1 th/mm3 (0.0-0.2); Baso % (Auto) 0.7 % (0.0-2.0); Eos # (Auto) 0.3 th/mm3 (0.0-0.4); Eos % (Auto) 3.7 % (0.0-4.0); Hematocrit 32.6 % (39.0-51.0); Lymph # (Auto) 0.9 th/mm3 (1.0-4.8); Lymph % (Auto) 12.1 % (9.0-44.0); Mean Corpuscular HGB Conc 33.8 % (32.0-36.0); Mean Corpuscular Hemoglobin 30.8 pg (27.0-34.0); Mean Corpuscular Volume 91.1 fL (80.0-100.0); Mean Platelet Volume 8.4 fL (7.0-11.0); Mono # (Auto) 0.6 th/mm3 (0.0-0.9); Mono % (Auto) 7.5 % (0.0-8.0); Neut # (Auto) 5.6 th/mm3 (1.8-7.7); Platelet Count 218 th/mm3 (150-450); Red Blood Count 3.58 mil/mm3 (4.50-5.90); Red Cell Distribution Width 17.1 % (11.6-17.2); White Blood Count 7.4 th/mm3 (4.0-11.0)
[2018-01-21 08:05] LABS: Calcium 8.2 mg/dL (8.5-10.1); Carbon Dioxide 25.3 meq/L (21.0-32.0); Potassium 3.6 meq/L (3.5-5.1)
[2018-01-21] MEDS: Cholestyramine Light 4 GM Packet PO SCH (08:31)
[2018-01-21] MEDS: Ferrous Sulfate 325 MG Tablet PO SCH (08:34)
[2018-01-21] MEDS: hydrALAZINE 50 MG Tablet PO SCH (08:34)
[2018-01-21 10:08] VITALS: BP 114/69; PULSE 87; RESP 18; TEMP 97.8; O2SAT 99
== END 2018-01-21 10:54 | disposition home or self-care (01) ==
LOC: N03 18:34 → N07 12-27 14:16
PROVIDERS: ADMIT Hospitalist; ATTEND Hospitalist
PROC: PANENDO (2017-12-11 15:25)
PROC: COLONOS (2017-12-13 11:25)
DX: L89.323 Pressure ulcer of left buttock, stage 3; D52.9 Folate deficiency anemia, unspecified; D63.1 Anemia in chronic kidney disease; Z93.4 Other artificial openings of gastrointestinal tract status; K94.13 Enterostomy malfunction; K25.5 Chronic or unspecified gastric ulcer with perforation; R47.01 Aphasia; Y92.239 Unspecified place in hospital as the place of occurrence of the external cause; J93.0 Spontaneous tension pneumothorax; R13.10 Dysphagia, unspecified; I95.3 Hypotension of hemodialysis; R00.0 Tachycardia, unspecified; I12.0 Hypertensive chronic kidney disease with stage 5 chronic kidney disease or end stage renal disease; R53.81 Other malaise; Z86.74 Personal history of sudden cardiac arrest; E43 Unspecified severe protein-calorie malnutrition; D69.6 Thrombocytopenia, unspecified; J96.02 Acute respiratory failure with hypercapnia; K31.89 Other diseases of stomach and duodenum; J69.0 Pneumonitis due to inhalation of food and vomit; Z99.11 Dependence on respirator [ventilator] status; D62 Acute posthemorrhagic anemia; F41.9 Anxiety disorder, unspecified; Y73.3 Surgical instruments, materials and gastroenterology and urology devices (including sutures) associated with adverse incidents; J90 Pleural effusion, not elsewhere classified; B37.7 Candidal sepsis; K64.8 Other hemorrhoids; L89.314 Pressure ulcer of right buttock, stage 4; E87.6 Hypokalemia; T81.41XA Infection following a procedure, superficial incisional surgical site, initial encounter; Z68.1 Body mass index [BMI] 19.9 or less, adult; J96.01 Acute respiratory failure with hypoxia; K91.840 Postprocedural hemorrhage of a digestive system organ or structure following a digestive system procedure; F43.21 Adjustment disorder with depressed mood; I82.623 Acute embolism and thrombosis of deep veins of upper extremity, bilateral; G93.41 Metabolic encephalopathy; T79.A3XA Traumatic compartment syndrome of abdomen, initial encounter; G72.81 Critical illness myopathy; N17.0 Acute kidney failure with tubular necrosis; T36.95XA Adverse effect of unspecified systemic antibiotic, initial encounter; K75.89 Other specified inflammatory liver diseases; Z99.2 Dependence on renal dialysis; Y83.8 Other surgical procedures as the cause of abnormal reaction of the patient, or of later complication, without mention of misadventure at the time of the procedure; K52.1 Toxic gastroenteritis and colitis; D51.9 Vitamin B12 deficiency anemia, unspecified; D61.89 Other specified aplastic anemias and other bone marrow failure syndromes; Z90.3 Acquired absence of stomach [part of]